=== PATIENT | male | born 1940 | race Caucasian/White ===

== ENCOUNTER 2016-08-01 09:49 | Inpatient (IN) | payer MEDICARE, OTHER ==
[~2016-08-01] VITALS: Ht 177.8 cm; Wt 100.0 kg
[~2016-08-01 09:49] MED LIST: APIX5TAB PO; ATEN-138 PO; ATEN50TA PO; BUPR150T18 PO; CEPH500C PO; CILO50TA PO; DILT60TA29 PO; FURO-109 PO; POLY17PO3 PO; Promethazine/Codeine Syp PO
[2016-08-01] MEDS ORDERED: IPRATROPIUM (NEB) 0.5 MG/2.5 ML AMP NEB STA (10:15)
[2016-08-01] MEDS ORDERED: ALBUTEROL 0.083% (NEB) 2.5 MG/3 ML AMP NEB STA (10:15)
--- NOTE | 2016-08-01 10:24 | RADRPT ---
PROCEDURE: XR Chest. CLINICAL INDICATION: Chest pain TECHNIQUE: Single frontal view of the chest was obtained COMPARISON: 02/06/2016 FINDINGS: The heart is enlarged. The thoracic aorta is calcified. There is a left lower lobe infiltrate and atelectasis and worsening left pleural effusion. There is no pneumothorax. RPTAT: AA IMPRESSION: Left lower lobe infiltrate and atelectasis and worsening moderate left pleural effusion. Mild cardiomegaly. Calcified aorta consistent with atherosclerotic disease. .David Hawk MD, Date Time Electronically viewed and signed by .David Hawk MD, on 08/01/2016 10:24 .S/
[2016-08-01 10:30] LABS: ADD SCAN DIFF NO
[2016-08-01] MEDS ORDERED: FUROSEMIDE 40 MG INJ IV ONE (10:30)
[2016-08-01 10:33] LABS: BASOPHIL # 0.1 10^3/ul (0.0-0.1); BASOPHILS % 0.6 % (0.0-2.0); EOSINOPHILS # 0.2 10^3/ul (0.0-0.5); EOSINOPHILS % 2.6 % (0.0-7.0); HEMOGLOBIN 13.5 g/dl (14.0-18.0); LYMPHOCYTES # 1.5 10^3/ul (0.8-2.9); LYMPHOCYTES % 19.8 % (15.0-51.0); MEAN CORPUSCULAR HEMOGLOBIN 33.4 pg (29.0-33.0); MEAN CORPUSCULAR HGB CONC 33.8 g/dl (32.0-37.0); MEAN PLATELET VOLUME 9.5 fl (7.4-10.4); MONOCYTE # 0.9 10^3/ul (0.3-0.9); MONOCYTES % 11.1 % (0.0-11.0); NEUTROPHIL # 5.1 10^3/ul (1.6-7.5); NEUTROPHILS % 65.6 % (39.0-77.0); PLATELET COUNT 253 10^3/UL (140-415); RED BLOOD COUNT 4.04 10^6/ul (4.70-6.10); RED CELL DISTRIBUTION WIDTH 13.7 % (11.5-14.5); WHITE BLOOD COUNT 7.7 10^3/ul (4.8-10.8)
[2016-08-01] MEDS ORDERED: VANCOMYCIN 1 GM (PMX) 250 ML IVPB STA (10:46)
[2016-08-01] MEDS ORDERED: CEFEPIME 1GM/50 ML (PMX) 50 ML IVPB STA (10:46)
[2016-08-01 10:50] LABS: INR 1.14; PROTIME 14.6 Sec (12.2-14.2); PT RATIO 1.1
[2016-08-01 10:51] LABS: ALANINE AMINOTRANSFERASE 24 IU/L (13-69); ALBUMIN 4.4 g/dl (3.3-4.9); ALBUMIN/GLOBULIN RATIO 1.15; ALKALINE PHOSPHATASE 118 IU/L (42-121); ANION GAP 14 (8-16); ASPARTATE AMINO TRANSFERASE 29 IU/L (15-46); BILIRUBIN,INDIRECT 0.4 mg/dl (0-1.1); BILIRUBIN,TOTAL 0.4 mg/dl (0.2-1.3); BLOOD UREA NITROGEN 15 mg/dl (7-20); CALCIUM 9.4 mg/dl (8.4-10.2); CARBON DIOXIDE 23 mmol/L (21-31); CHLORIDE 101 mmol/L (97-110); GLUCOSE 99 mg/dl (70-220); PARTIAL THROMBOPLASTIN TIME 31.5 Sec (25.0-35.0); POTASSIUM 4.6 mmol/L (3.5-5.1); SODIUM 133 mmol/L (135-144); TOTAL PROTEIN 8.2 g/dl (6.1-8.1)
[2016-08-01 11:02] LABS: B-TYPE NATRIURETIC PEPTIDE 7020 PG/ML (0-450)
[2016-08-01 11:04] LABS: TROPONIN-I < 0.012 ng/ml (0.00-0.12)
--- NOTE | 2016-08-01 11:29 | ERA ---
ER Documentation Chief Complaint Date/Time DATE: 08/01/16 TIME: 11:27 Chief Complaint sob, cp, swelling legs HPI Very pleasant 68-year-old male comes in with shortness of breath with chest pain. He said it started 3 days ago. Also no swelling of his legs. Patient does have history of COPD and CHF. No nausea no vomiting no chills. He is also complaining some mild wheezing. No palpitations. Chest pain is mild to moderate intensity, substernal, not pressure-like with no exacerbating or alleviating factors. Patient also has 3 pillow orthopnea along with shortness of breath on exertion at 10 feet. ROS All systems reviewed and are negative except as per history of present illness. Medications Home Meds Active Scripts [Promethazine/Codeine Syp] 5 ML SYRUP No Conflict Check, 10 ML PO Q6H Y for COUGH, #240 ML Prov:JERSON MCCORMACK MD 02/10/16 Diltiazem Hcl* (Cardizem*) 60 Mg Tablet, 60 MG PO TID, #180 TAB Prov:JERSON MCCORMACK MD 02/10/16 Atenolol (Tenormin) 25 Mg Tab, 25 MG PO HS, #60 TAB Prov:JERSON MCCORMACK MD 02/10/16 Reported Medications Furosemide* (Lasix*) 40 Mg Tablet, 40 MG PO DAILY, TAB 01/31/16 Bupropion Hcl* (Bupropion Hcl SR*) 150 Mg Tablet.er, 150 MG PO DAILY, TAB.SA 08/18/15 Cilostazol* (Cilostazol*) 50 Mg Tablet, 50 MG PO BID, TAB 08/18/15 Polyethylene Glycol* (Polyethylene Glycol*) 17 Gm Powd.pack, 8.5 GM PO DAILY, PACKET 08/31/14 Discontinued Reported Medications Atenolol* (Atenolol*) 50 Mg Tablet, 50 MG PO DAILY, #30 TAB HOLD IF SBP<110 OR HR<60 08/27/15 Discontinued Scripts Cephalexin* (Cephalexin*) 500 Mg Capsule, 500 MG PO TID, #21 CAP Prov:JERSON MCOCRMACK MD 02/10/16 Apixaban* (Eliquis*) 5 Mg Tablet, 5 MG PO BID, #60 TAB Prov:JERSON MCCORMACK MD 02/10/16 Allergies Allergies: Coded Allergies: No Known Allergy (Unverified , 02/06/16) PMhx/Soc History of Surgery: Yes (Lung CA; carotid endarterectomy) Anesthesia Reaction: No Hx 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 Disorder: Yes (CVA) Hx Respiratory Disorders: Yes (Lung CA; COPD; CHF) Hx Cardiac Disorders: Yes (AFIB; HTN) Hx Psychiatric Problems: No Hx Miscellaneous Medical Probl: No Hx Alcohol Use: Yes Hx Substance Use: No Hx Tobacco Use: Yes Smoking Status: Current every day smoker Physical Exam Vitals Vital Signs Date Time Temp Pulse Resp B/P Pulse Ox O2 Delivery O2 Flow Rate FiO2 08/01/16 10:33 97 21 96 Nasal Cannula 2.0 08/01/16 10:15 Nasal Cannula 2 08/01/16 10:08 Nasal Cannula 2.0 08/01/16 09:57 98.1 98 24 139/94 98 Physical Exam Const: [] Head: Atraumatic Eyes: Normal Conjunctiva ENT: Normal External Ears, Nose and Mouth. Neck: Full range of motion..~ No meningismus. Resp: Clear to auscultation bilaterally Cardio: Regular rate and rhythm, no murmurs Abd: Soft, non tender, non distended. Normal bowel sounds Skin: No petechiae or rashes Back: No midline or flank tenderness Ext: No cyanosis, or edema Neur: Awake and alert Psych: Normal Mood and Affect Result Diagram: 08/01/16 1020 08/01/16 1020 Results 24 hrs Laboratory Tests Test 08/01/16 10:20 White Blood Count 7.710^3/ul Red Blood Count 4.0410^6/ul Hemoglobin 13.5g/dl Hematocrit 40.0% Mean Corpuscular Volume 99.0fl Mean Corpuscular Hemoglobin 33.4pg Mean Corpuscular Hemoglobin Concent 33.8g/dl Red Cell Distribution Width 13.7% Platelet Count 30046^3/UL Mean Platelet Volume 9.5fl Neutrophils % 65.6% Lymphocytes % 19.8% Monocytes % 11.1% Eosinophils % 2.6% Basophils % 0.6% Nucleated Red Blood Cells % 0.0/100WBC Neutrophils # 5.110^3/ul Lymphocytes # 1.510^3/ul Monocytes # 0.910^3/ul Eosinophils # 0.210^3/ul Basophils # 0.110^3/ul Nucleated Red Blood Cells # 0.010^3/ul Prothrombin Time 14.6Sec Prothrombin Time Ratio 1.1 INR International Normalized Ratio 1.14 Activated Partial Thromboplast Time 31.5Sec Sodium Level 133mmol/L Potassium Level 4.6mmol/L Chloride Level 101mmol/L Carbon Dioxide Level 23mmol/L Anion Gap 14 Blood Urea Nitrogen 15mg/dl Creatinine 1.20mg/dl Glucose Level 99mg/dl Calcium Level 9.4mg/dl Total Bilirubin 0.4mg/dl Direct Bilirubin 0.00mg/dl Indirect Bilirubin 0.4mg/dl Aspartate Amino Transf (AST/SGOT) 29IU/L Alanine Aminotransferase (ALT/SGPT) 24IU/L Alkaline Phosphatase 118IU/L Troponin I < 0.012ng/ml B-Type Natriuretic Peptide 7020PG/ML Total Protein 8.2g/dl Albumin 4.4g/dl Globulin 3.80g/dl Albumin/Globulin Ratio 1.15 Current Medications Medications (Trade) Dose Ordered Sig/Yamileth Route PRN Reason Start Time Stop Time Status Last Admin Dose Admin Albuterol (Proventil 0.083% (Neb)) 5 mg ONCE STAT NEB 08/01/16 10:15 08/01/16 10:16 DC 08/01/16 10:27 Ipratropium [facility] (Atrovent 0.02% (Neb)) 0.5 mg ONCE STAT NEB 08/01/16 10:15 08/01/16 10:16 DC 08/01/16 10:27 Furosemide 80 mg 80 mg ONCE ONCE IV 08/01/16 10:30 08/01/16 10:31 DC 08/01/16 10:27 Cefepime HCl 50 ml @ 100 mls/hr ONCE STAT IVPB 08/01/16 10:46 08/01/16 11:15 DC 08/01/16 11:09 Vancomycin HCl (Vancocin) 250 ml @ 125 mls/hr ONCE STAT IVPB 08/01/16 10:46 08/01/16 12:45 08/01/16 11:18 Procedures/MDM EKG: Rate/Rhythm: [Normal Sinus Rhythm] QRS, ST, T-waves: [No changes consistent w/ acute ischemia] Impression: [No evidence of ischemia or arrhythmia] Chest X-ray 1V Interpreted by me: Soft Tissue: No acute abnormalities Bones: No acute abnormalities Mediastinum/Cardiac Silhouette/Lungs: Bilateral pleural effusions. Right lower lobe infiltrate. Increased interstitial fluid markings. Impression: CHF, bilateral pleural effusions, right lower lobe pneumonia Patient's heart failure symptoms is concerning for acute decompensation and will require inpatient workup and monitoring. Further w/u for ischemia, arrhythmia, PE or dissection will be deferred to the inpatient team. Accepting Care Team: Current data and ongoing care discussed. Time: 11:15 AM Primary Provider: Dr. Saleh Consulting: Per inpatient team Outstanding Data: none Critical Care: Time: 45 minutes Treatments/Evaluations: Close monitoring and treatment of unstable vital signs, cardiorespiratory, and neurologic status, while maintaining tight balance of fluid, respiratory, and cardiac interventions. Departure Diagnosis: Primary Impression: CHF (congestive heart failure) Qualified Code: I50.9 - Congestive heart failure, unspecified congestive heart failure chronicity, unspecified congestive heart failure type Additional Impressions: Pneumonia Qualified Code: J18.1 - Pneumonia of right lower lobe due to infectious organism Pleural effusion Condition: Serious ANA ROSA SWEENEY August 01, 2016 11:29
[2016-08-01] MEDS ORDERED: APIXABAN 5 MG TABLET PO ONE (14:00)
[2016-08-01 14:45] VITALS: PULSE 103
--- NOTE | 2016-08-01 14:57 | CONS ---
DATE OF ADMISSION: 08/01/2016 DATE OF CONSULTATION: 08/01/2016 TYPE OF CONSULTATION: Cardiology. REFERRING PHYSICIAN: Paul Saleh MD REASON FOR EVALUATION: Shortness of breath, atrial fibrillation. HISTORY OF PRESENT ILLNESS: Mr. Nielsen is a 76-year-old gentleman who was cardiomyopathy, ejection fraction 35% to 40%, history of coronary artery disease, history of heart failure, history of palpit ations, who comes to the hospital now for evaluation of cough, shortness of breath. The patient had prior episodes of shortness of breath. He also has history of atrial fibrillation and heart failure . The patient responded well to diuresis, which he tolerated well. The patient had a stress test i n August of 2015, at which time it showed normal ejection fraction and some hypokinesis and no reversi ble disease and it is likely the etiology of his decompensation and now with CHF was rapid rate resp onse in atrial fibrillation. The patient's rate is much better. He responded well to diuresis and feels much better overall. For now, conservative therapy is expected. We will continue to follow. 2D echo to follow. PAST MEDICAL HISTORY: Hypertension, dyslipidemia, history of coronary artery disease, history of ca rdiomyopathy, ejection fraction 35% to 40%. History of prior admissions with congestive heart failur e exacerbation, atrial fibrillation. ALLERGIES: NO KNOWN. SOCIAL HISTORY: The patient does not smoke, does not use any drugs. FAMILY HISTORY: Negative for sudden cardiac or premature coronary artery disease. MEDICATIONS: The patient is on: 1. Cefepime. 2. Vancomycin. 3. Lasix 20 mg p.o., which was given once. 4. Atenolol 50 mg p.o. once a day. 5. Digoxin 250 mg IV. 6. He is on Eliquis 5 mg p.o. b.i.d. 7. Potassium supplement. 8. Levothyroxine. 9. Metoprolol titrate as needed. REVIEW OF SYSTEMS: CONSTITUTIONAL: No fevers, no chills, shortness of breath as described. HEENT: No changes in vision. CARDIAC: Atrial fibrillation. Chest pain as described. RESPIRATORY: Breath acute on chronic anticoagulation. GASTROINTESTINAL: No nausea, vomiting, diarrhea, constipation. GENITOURINARY: No dysuria, hematuria, ____ . NEUROLOGIC: No focal neurologic deficits. HEMATOLOGIC: ____ . PSYCHIATRIC: No history of psychiatric disease. PHYSICAL EXAMINATION: VITAL SIGNS: Temperature is 98.7, heart rate is 99 in AFib, blood pressure 122/78. GENERAL: He is a well-nourished gentleman in no acute distress, alert and oriented x3, aware of his condition. HEAD: Normocephalic, atraumatic. Eyes anicteric. NECK: Supple. JVD 6-7 cm. There is no lymphadenopathy, no thyromegaly. HEART: Irregularly irregular with soft holosystolic murmur mid chest. ____ PMI is nondisplaced. _ ___ . LUNGS: Coarse at bases. ABDOMEN: Distended, bowel sounds are present. There is no hepatosplenomegaly. GENITOURINARY: Grossly intact. EXTREMITIES: Show no clubbing, cyanosis. Trace edema. He has some chronic changes in his lower ex tremities. ECG read by me shows atrial fibrillation at ____ , had some nonspecific ST-T changes. LABORATORY DATA: White blood cell count 7.7, hemoglobin 13.5, platelets 253. INR is 1.14. Sodium 133, potassium 4.6. His BUN is 15, creatinine 1.2. Troponin is negative at 0.012. ASSESSMENT AND PLAN: 1. Shortness of breath. Suspect likely multifactorial, suspect COPD exacerbation as well as positi ve component of CHF, the patient responded well to diuresis. Continue diuretic therapy. 2. Atrial fibrillation. The patient has chronic atrial fibrillation, rate is better controlled now. Continue anticoagulation with Eliquis. Continue to monitor closely. 3. Hypertension. Blood pressure well optimized now. Continue medical therapeutic care. 4. Congestive heart failure, systolic, acute on chronic. Continue diuresis as noted. 5. Acute renal failure. Creatinine is now at 1.2, which is somewhat decreased from his baseline at 1.532. For now continue to diurese the patient expectantly. 6. Chronic obstructive pulmonary disease. Continue chronic obstructive pulmonary disease therapy p er primary team. I would like to thank Dr. Saleh for referring this patient for my evaluation. Dictated By: EMILY SANTAMARIA MD ML/NTS Conf#: [id number] DID#: [id number]
[2016-08-01 15:00] VITALS: Ht 177.8 cm; Wt 100.0 kg
[2016-08-01 15:58] VITALS: BP 131/72; RESP 20
[2016-08-01 16:10] VITALS: PULSE 99
[2016-08-01] MEDS ORDERED: ALBUTEROL/IPRATROPIUM (NEB) 3 ML AMP HHN PRN (17:30)
[2016-08-01] MEDS: ALBUTEROL/IPRATROPIUM (NEB) 3 ML AMP HHN SCH ×2 (17:32→20:11)
--- NOTE | 2016-08-01 17:49 | QN ---
Documentation Comment [id number] KARLEY DEAN MD August 01, 2016 17:49
--- NOTE | 2016-08-01 18:17 | HP ---
DATE OF ADMISSION: 08/01/2016 HISTORY OF PRESENT ILLNESS: Sung Nielsen is a 76-year-old male who has a history of COPD, CKD, atherosclerotic heart disease, dyslipidemia. The patient has a history of lung cancer status post radiation per patient, history of hypoxic respiratory distress due to moderate left pleural effusion, left lower lobe pneumonia, history of thoracentesis, atrial fibrillation with rapid ventricular response, cardiomyopathy, CHF, ejection fraction 35% to 40%, hypertension, history of CAD, history of CVA, history of carotid endarterectomy. ALLERGY HISTORY: NEGATIVE. FAMILY HISTORY: Negative. MEDICATIONS: The patient is on: 1. Atenolol. 2. Bupropion. 3. Cilostazol. 3. Diltiazem. 4. Lasix. 5. MiraLax. . REVIEW OF SYSTEMS: HEENT: Unremarkable. RESPIRATORY: Cough, shortness of breath, dyspnea on exertion, orthopnea, PND. ABDOMEN: Unremarkable. EXTREMITIES: Unremarkable except for chronic edema. CENTRAL NERVOUS SYSTEM: Unremarkable. PHYSICAL EXAMINATION: GENERAL: The patient is awake, alert, anxious. VITAL SIGNS: Stable. HEAD: Atraumatic, normocephalic. Pupils are equal, reactive to light. NECK: Supple. No JVD. LUNGS: Rhonchi and wheezes noted. CARDIOVASCULAR: S1, S2 normal. ABDOMEN: Soft, nontender, obese. Bowel sounds present. No palpable mass or hepatosplenomegaly. EXTREMITIES: No cyanosis, clubbing. Edema positive. LABORATORY DATA: Shows hematocrit 40.0. Sodium 133, potassium 4.6. BNP 1720. The patient has atrial fibrillation with rapid ventricular response on the monitor. IMPRESSION: 1. Acute hypoxemic respiratory failure, chronic obstructive pulmonary disease exacerbation. 2. The patient is atrial fibrillation with rapid ventricular response. 3. Lung infiltrate, pleural effusions. 4. Cardiomegaly. 5. Atherosclerotic heart disease. 6. Dyslipidemia. 7. History of lung carcinoma and radiation. PLAN: To continue current treatment. The patient will have consultation from vascular, for hemodialysis. Orders were done. Dictated By: KARLEY DEAN MD BS/NTS Conf#: [id number] DID#: [id number] MTDD
[2016-08-01] MEDS ORDERED: PERMETHRIN 5% 60 GM CR TOP ONE (19:00)
[2016-08-01 19:54] VITALS: BP 103/69; RESP 18
[2016-08-01 20:17] VITALS: PULSE 110
[2016-08-01] MEDS: ATENOLOL 25 MG TAB PO SCH (21:25)
[2016-08-01] MEDS: CILOSTAZOL 100 MG TAB PO SCH (21:25)
[2016-08-01] MEDS: DILTIAZEM 60 MG TAB PO SCH (21:25)
[2016-08-01] MEDS: METHYLPREDNISOLONE 40 MG INJ IV SCH (21:26)
[2016-08-01] MEDS: CEFEPIME 1GM/50 ML (PMX) 50 ML IVPB SCH (21:26)
[2016-08-01] MEDS: FUROSEMIDE 40 MG INJ IV SCH (21:26)
[2016-08-01] MEDS: ENOXAPARIN 100 MG/ML SYG SC SCH (21:51)
[2016-08-01 23:40] VITALS: BP 111/67; RESP 20
[2016-08-02] VITALS (12 sets, daily range): BP systolic 81–123; BP diastolic 49–77; PULSE 100–126; RESP 16–20
[2016-08-02] MEDS: GUAIFENESIN/CODEINE 5ML CUP PO PRN ×3 (00:16→21:30)
[2016-08-02] MEDS: ALBUTEROL/IPRATROPIUM (NEB) 3 ML AMP HHN SCH ×6 (01:12→21:32)
[2016-08-02 04:08] LABS: ADD SCAN DIFF NO
[2016-08-02 04:35] LABS: ABNORMAL IP MESSAGE 1; BASOPHILS % 0.5 % (0.0-2.0); EOSINOPHILS % 0.2 % (0.0-7.0); HEMATOCRIT 36.1 % (42.0-52.0); HEMOGLOBIN 12.5 g/dl (14.0-18.0); LYMPHOCYTES # 0.5 10^3/ul (0.8-2.9); LYMPHOCYTES % 7.4 % (15.0-51.0); MEAN CORPUSCULAR HEMOGLOBIN 33.8 pg (29.0-33.0); MEAN CORPUSCULAR HGB CONC 34.6 g/dl (32.0-37.0); MEAN CORPUSCULAR VOLUME 97.6 fl (82.0-101.0); MEAN PLATELET VOLUME 9.6 fl (7.4-10.4); MONOCYTE # 0.2 10^3/ul (0.3-0.9); MONOCYTES % 2.4 % (0.0-11.0); NEUTROPHIL # 5.6 10^3/ul (1.6-7.5); PLATELET COUNT 231 10^3/UL (140-415); RED CELL DISTRIBUTION WIDTH 13.6 % (11.5-14.5); WHITE BLOOD COUNT 6.3 10^3/ul (4.8-10.8)
[2016-08-02 04:39] LABS: ALBUMIN 4.4 g/dl (3.3-4.9)
[2016-08-02 04:40] LABS: POTASSIUM 3.8 mmol/L (3.5-5.1)
[2016-08-02 04:42] LABS: ALBUMIN/GLOBULIN RATIO 1.76; BILIRUBIN,INDIRECT 0.5 mg/dl (0-1.1); BILIRUBIN,TOTAL 0.5 mg/dl (0.2-1.3); CREATININE 1.17 mg/dl (0.61-1.24); TOTAL PROTEIN 6.9 g/dl (6.1-8.1)
[2016-08-02] MEDS: PANTOPRAZOLE (EC) 40 MG TAB PO SCH (06:24)
[2016-08-02] MEDS: FUROSEMIDE 40 MG INJ IV SCH (09:10)
[2016-08-02] MEDS: CILOSTAZOL 100 MG TAB PO SCH ×2 (09:11→21:10)
[2016-08-02] MEDS: POLYETHYLENE GLYCOL 17 GM PACKET PO SCH (09:11)
[2016-08-02] MEDS: METHYLPREDNISOLONE 40 MG INJ IV SCH ×2 (09:11→21:12)
[2016-08-02] MEDS: CEFEPIME 1GM/50 ML (PMX) 50 ML IVPB SCH ×2 (09:11→21:09)
[2016-08-02] MEDS: BUPROPION (SR) 150 MG TAB PO SCH (09:11)
[2016-08-02] MEDS: ASPIRIN 325 MG TAB PO SCH (09:11)
[2016-08-02] MEDS: DILTIAZEM 60 MG TAB PO SCH ×3 (09:12→21:00)
[2016-08-02] MEDS: ENOXAPARIN 100 MG/ML SYG SC SCH ×2 (09:37→21:19)
--- NOTE | 2016-08-02 16:14 | CONS ---
Date/Time of Note Date/Time of Note DATE: 08/02/16 TIME: 16:08 Assessment/Plan Assessment/Plan Chief Complaint/Hosp Course IMP: 1.AF with RVR 2.CHF-systolic EF last 35-40 3.HTN 4.Possible scabies 5.COPD 6. H/O lung ca 7.PNA and effusion L sided Recc: -Tele -Continue atenolol as tolerated -Give digoxin load -Continue asa/lovenox -Continue abx's and f/u cx data Problems: Consultation Date/Type/Reason Admit Date/Time August 01, 2016 at 11:17 Initial Consult Date 08/01/2016 Type of Consultation: Cardiology Reason for Consultation AF Referring Provider: KARLEY DEAN MD Exam/Review of Systems Vital Signs Vitals Vital Signs Date Time Temp Pulse Resp B/P Pulse Ox O2 Delivery O2 Flow Rate FiO2 08/02/16 14:44 98 3.0 32 08/02/16 14:44 112 22 Nasal Cannula 08/02/16 11:46 97.8 123/77 Intake and Output 08/01/16 08/01/16 08/02/16 15:00 23:00 07:00 Intake Total 470 ml 350 ml Output Total 1600 ml 1000 ml Balance -1600 ml 470 ml -650 ml Exam Review of Systems: CONSTITUTIONAL: No fevers, chills. PULMONARY: mild sob CARDIOVASCULAR: No chest pain/palpitations GASTROINTESTINAL: No nausea/vomiting. GENITOURINARY: No hematuria/dysuria. MUSCULOSKELETAL: No myagias/arthalgias. PSYCHIATRIC: The patient denies depression. NEUROLOGIC: No weakness Constitutional: alert Psych: no complaints Head: normocephalic ENMT: mucosa pink and moist Neck: jvd (9 cm water), supple Respiratory: diminished breath sounds (at bases/B) Cardiovascular: regular rate and rhythm Gastrointestinal: non-tender, soft Musculoskeletal: muscle tone (normal) Extremities: edema (none) 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: other (No focal deficits) Results Result Diagram: 08/02/16 0324 08/02/16 0324 Results 24 hrs Laboratory Tests Test 08/01/16 21:49 08/02/16 03:24 08/02/16 09:00 Troponin I < 0.012 < 0.012 < 0.012 White Blood Count 6.3 Red Blood Count 3.70 L Hemoglobin 12.5 L Hematocrit 36.1 L Mean Corpuscular Volume 97.6 Mean Corpuscular Hemoglobin 33.8 H Mean Corpuscular Hemoglobin Concent 34.6 Red Cell Distribution Width 13.6 Platelet Count 231 Mean Platelet Volume 9.6 Neutrophils % 89.0 H Lymphocytes % 7.4 L Monocytes % 2.4 Eosinophils % 0.2 Basophils % 0.5 Nucleated Red Blood Cells % 0.0 Neutrophils # 5.6 Lymphocytes # 0.5 L Monocytes # 0.2 L Eosinophils # 0.0 Basophils # 0.0 Nucleated Red Blood Cells # 0.0 Sodium Level 136 Potassium Level 3.8 Chloride Level 104 Carbon Dioxide Level 24 Anion Gap 12 Blood Urea Nitrogen 20 Creatinine 1.17 Glucose Level 139 # Calcium Level 9.0 Total Bilirubin 0.5 Direct Bilirubin 0.00 Indirect Bilirubin 0.5 Aspartate Amino Transf (AST/SGOT) 19 Alanine Aminotransferase (ALT/SGPT) 25 Alkaline Phosphatase 99 Total Protein 6.9 # Albumin 4.4 Globulin 2.50 Albumin/Globulin Ratio 1.76 Medications Medications Current Medications Pantoprazole (Protonix Tab) 40 mg DAILY@06 PO Last administered on 08/02/16 06 :24; Admin Dose 40 MG; Start 08/02/16 at 06:00 Albuterol/ Ipratropium (Duoneb) 3 ml PRN PRN HHN SHORTNESS OF BREATH; Start at 17:30 Furosemide (Lasix) 40 mg DAILY IV ; Start 08/03/16 at 09:00 Atenolol (Tenormin) 25 mg HS PO Last administered on 08/01/16 21:25; Admin Dose 25 MG; Start 08/01/16 at 21:00 Bupropion HCl (Wellbutrin Sr) 150 mg DAILY PO Last administered on 08/02/16 09 :11; Admin Dose 150 MG; Start 08/02/16 at 09:00 Cilostazol (Pletal) 50 mg BID PO Last administered on 08/02/16 09:11; Admin Dose 50 MG; Start 08/01/16 at 21:00 Diltiazem HCl (Cardizem) 60 mg TID PO Last administered on 08/02/16 13:45; Admin Dose 60 MG; Start 08/01/16 at 21:00 Polyethylene Glycol 8.5 gm 8.5 gm DAILY PO Last administered on 08/02/16 09:11 ; Admin Dose 8.5 GM; Start 08/02/16 at 09:00 Cefepime HCl (Maxipime 1gm/50 ml (Pmx)) 50 ml @ 100 mls/hr Q12 IVPB Last administered on 08/02/16 09:11; Admin Dose 100 MLS/HR; Start 08/01/16 at 21:00 Methylprednisolone Sodium Succinate (Solu-Medrol) 20 mg Q12 IV Last administered on 08/02/16 09:11; Admin Dose 20 MG; Start 08/01/16 at 21:00 Aspirin (Aspirin) 325 mg DAILY PO Last administered on 08/02/16 09:11; Admin Dose 325 MG; Start 08/02/16 at 09:00 Enoxaparin Sodium (Lovenox) 100 mg Q12 SC Last administered on 08/02/16 09:37 ; Admin Dose 100 MG; Start 08/01/16 at 21:00 Guaifenesin/ Codeine Phosphate (Robitussin Ac Liquid Cup) 10 ml BID PRN PO COUGH Last administered on 08/02/16 00:16; Admin Dose 10 ML; Start 08/01/16 at 22:30 CECE LOPEZ August 02, 2016 16:14
[2016-08-02] MEDS ORDERED: DIGOXIN 500 MCG INJ IV ONE ×2 (16:30→22:30)
--- NOTE | 2016-08-02 20:16 | PN ---
Date/Time of Note Date/Time of Note DATE: 08/02/16 TIME: 20:15 Assessment/Plan VTE Prophylaxis VTE Prophylaxis Intervention: other Lines/Catheters IV [facility] Saline Lock Assessment/Plan Chief Complaint/Hosp Course IMPRESSION: 1. Acute hypoxemic respiratory failure, chronic obstructive pulmonary disease exacerbation. 2. The patient is atrial fibrillation with rapid ventricular response. 3. Lung infiltrate, pleural effusions. 4. Cardiomegaly. 5. Atherosclerotic heart disease. 6. Dyslipidemia. 7. History of lung carcinoma and radiation. plan hhn lasix Problems: Subjective 24 Hr Interval Summary Respiratory: shortness of breath (better) Cardiovascular: no complaints Exam/Review of Systems Vital Signs Vitals Vital Signs Date Time Temp Pulse Resp B/P Pulse Ox O2 Delivery O2 Flow Rate FiO2 08/02/16 20:10 111 08/02/16 19:48 98.0 16 82/49 96 08/02/16 17:02 3.0 32 08/02/16 17:02 Nasal Cannula Intake and Output 08/01/16 08/01/16 08/02/16 15:00 23:00 07:00 Intake Total 470 ml 350 ml Output Total 1600 ml 1000 ml Balance -1600 ml 470 ml -650 ml Exam Respiratory: clear to auscultation, congested cough, diminished breath sounds Gastrointestinal: soft Results Result Diagram: 08/02/16 0324 08/02/16 0324 Results 24 hrs Laboratory Tests Test 08/01/16 21:49 08/02/16 03:24 08/02/16 09:00 Troponin I < 0.012 < 0.012 < 0.012 White Blood Count 6.3 Red Blood Count 3.70 L Hemoglobin 12.5 L Hematocrit 36.1 L Mean Corpuscular Volume 97.6 Mean Corpuscular Hemoglobin 33.8 H Mean Corpuscular Hemoglobin Concent 34.6 Red Cell Distribution Width 13.6 Platelet Count 231 Mean Platelet Volume 9.6 Neutrophils % 89.0 H Lymphocytes % 7.4 L Monocytes % 2.4 Eosinophils % 0.2 Basophils % 0.5 Nucleated Red Blood Cells % 0.0 Neutrophils # 5.6 Lymphocytes # 0.5 L Monocytes # 0.2 L Eosinophils # 0.0 Basophils # 0.0 Nucleated Red Blood Cells # 0.0 Sodium Level 136 Potassium Level 3.8 Chloride Level 104 Carbon Dioxide Level 24 Anion Gap 12 Blood Urea Nitrogen 20 Creatinine 1.17 Glucose Level 139 # Calcium Level 9.0 Total Bilirubin 0.5 Direct Bilirubin 0.00 Indirect Bilirubin 0.5 Aspartate Amino Transf (AST/SGOT) 19 Alanine Aminotransferase (ALT/SGPT) 25 Alkaline Phosphatase 99 Total Protein 6.9 # Albumin 4.4 Globulin 2.50 Albumin/Globulin Ratio 1.76 Medications Medications Current Medications Pantoprazole (Protonix Tab) 40 mg DAILY@06 PO Last administered on 08/02/16 06 :24; Admin Dose 40 MG; Start 08/02/16 at 06:00 Albuterol/ Ipratropium (Duoneb) 3 ml PRN PRN HHN SHORTNESS OF BREATH; Start at 17:30 Furosemide (Lasix) 40 mg DAILY IV ; Start 08/03/16 at 09:00 Atenolol (Tenormin) 25 mg HS PO Last administered on 08/01/16 21:25; Admin Dose 25 MG; Start 08/01/16 at 21:00 Bupropion HCl (Wellbutrin Sr) 150 mg DAILY PO Last administered on 08/02/16 09 :11; Admin Dose 150 MG; Start 08/02/16 at 09:00 Cilostazol (Pletal) 50 mg BID PO Last administered on 08/02/16 09:11; Admin Dose 50 MG; Start 08/01/16 at 21:00 Diltiazem HCl (Cardizem) 60 mg TID PO Last administered on 08/02/16 13:45; Admin Dose 60 MG; Start 08/01/16 at 21:00 Polyethylene Glycol 8.5 gm 8.5 gm DAILY PO Last administered on 08/02/16 09:11 ; Admin Dose 8.5 GM; Start 08/02/16 at 09:00 Cefepime HCl (Maxipime 1gm/50 ml (Pmx)) 50 ml @ 100 mls/hr Q12 IVPB Last administered on 08/02/16 09:11; Admin Dose 100 MLS/HR; Start 08/01/16 at 21:00 Methylprednisolone Sodium Succinate (Solu-Medrol) 20 mg Q12 IV Last administered on 08/02/16 09:11; Admin Dose 20 MG; Start 08/01/16 at 21:00 Aspirin (Aspirin) 325 mg DAILY PO Last administered on 08/02/16 09:11; Admin Dose 325 MG; Start 08/02/16 at 09:00 Enoxaparin Sodium (Lovenox) 100 mg Q12 SC Last administered on 08/02/16 09:37 ; Admin Dose 100 MG; Start 08/01/16 at 21:00 Guaifenesin/ Codeine Phosphate (Robitussin Ac Liquid Cup) 10 ml BID PRN PO COUGH Last administered on 08/02/16 16:49; Admin Dose 10 ML; Start 08/01/16 at 22:30 Digoxin (Digoxin) 250 mcg ONCE ONCE IV ; Start 08/02/16 at 22:30; Stop at 22:31 KARLEY DEAN MD August 02, 2016 20:16
[2016-08-02] MEDS: ATENOLOL 25 MG TAB PO SCH (21:00)
[2016-08-03] VITALS (11 sets, daily range): BP systolic 79–100; BP diastolic 51–71; PULSE 116–150; RESP 18–20
[2016-08-03] MEDS: ALBUTEROL/IPRATROPIUM (NEB) 3 ML AMP HHN SCH ×6 (01:14→21:31)
[2016-08-03] MEDS: PANTOPRAZOLE (EC) 40 MG TAB PO SCH (06:30)
[2016-08-03 07:46] LABS: ADD SCAN DIFF NO
[2016-08-03 07:47] LABS: ABNORMAL IP MESSAGE 1; HEMATOCRIT 34.8 % (42.0-52.0); HEMOGLOBIN 11.9 g/dl (14.0-18.0); LYMPHOCYTES # 0.5 10^3/ul (0.8-2.9); LYMPHOCYTES % 3.8 % (15.0-51.0); MEAN CORPUSCULAR HEMOGLOBIN 33.6 pg (29.0-33.0); MEAN CORPUSCULAR HGB CONC 34.2 g/dl (32.0-37.0); MEAN CORPUSCULAR VOLUME 98.3 fl (82.0-101.0); MEAN PLATELET VOLUME 9.6 fl (7.4-10.4); MONOCYTE # 0.6 10^3/ul (0.3-0.9); MONOCYTES % 4.6 % (0.0-11.0); NEUTROPHIL # 11.7 10^3/ul (1.6-7.5); NEUTROPHILS % 91.1 % (39.0-77.0); PLATELET COUNT 237 10^3/UL (140-415); RED BLOOD COUNT 3.54 10^6/ul (4.70-6.10); RED CELL DISTRIBUTION WIDTH 13.6 % (11.5-14.5); WHITE BLOOD COUNT 12.8 10^3/ul (4.8-10.8)
[2016-08-03 08:16] LABS: ALBUMIN 4.5 g/dl (3.3-4.9); ALBUMIN/GLOBULIN RATIO 1.8; BILIRUBIN,INDIRECT 0.3 mg/dl (0-1.1); BILIRUBIN,TOTAL 0.3 mg/dl (0.2-1.3); CREATININE 1.59 mg/dl (0.61-1.24); POTASSIUM 3.8 mmol/L (3.5-5.1)
[2016-08-03] MEDS: DILTIAZEM 60 MG TAB PO SCH ×2 (08:35→12:36)
[2016-08-03] MEDS: POLYETHYLENE GLYCOL 17 GM PACKET PO SCH (08:43)
[2016-08-03] MEDS: BUPROPION (SR) 150 MG TAB PO SCH (08:43)
[2016-08-03] MEDS: ASPIRIN 325 MG TAB PO SCH (08:43)
[2016-08-03] MEDS: CILOSTAZOL 100 MG TAB PO SCH ×2 (08:43→20:43)
[2016-08-03] MEDS: METHYLPREDNISOLONE 40 MG INJ IV SCH ×2 (08:44→20:43)
[2016-08-03] MEDS: CEFEPIME 1GM/50 ML (PMX) 50 ML IVPB SCH ×2 (08:44→20:43)
[2016-08-03] MEDS: ENOXAPARIN 100 MG/ML SYG SC SCH ×2 (08:54→20:45)
[2016-08-03] MEDS ORDERED: FUROSEMIDE 40 MG INJ IV SCH (09:00)
--- NOTE | 2016-08-03 12:57 | CONS ---
Date/Time of Note Date/Time of Note DATE: 08/03/16 TIME: 12:56 Consultation Date/Type/Reason Admit Date/Time August 01, 2016 at 11:17 Date of Consultation: Aug 03, 2016 Type of Consultation: pulmonary Reason for Consultation dictated [id number] Respiratory: shortness of breath (better) Cardiovascular: no complaints Psychological: no complaints Past Surgical History Past Surgical Hx: coronary bypass surgery Social History Smoking Status: Current every day smoker Exam/Review of Systems Vital Signs Vitals Vital Signs Date Time Temp Pulse Resp B/P Pulse Ox O2 Delivery O2 Flow Rate FiO2 08/03/16 11:10 98.3 106 18 99/60 97 08/03/16 08:20 3.0 08/03/16 07:22 Nasal Cannula 08/02/16 17:02 32 Intake and Output 08/02/16 08/02/16 08/03/16 15:00 23:00 07:00 Intake Total 1050 ml 350 ml Output Total 750 ml Balance 300 ml 350 ml Results Result Diagram: 08/03/16 0646 08/03/16 0645 Results 24 hrs Laboratory Tests Test 08/03/16 06:45 08/03/16 06:46 Sodium Level 133 L Potassium Level 3.8 Chloride Level 99 Carbon Dioxide Level 25 Anion Gap 13 Blood Urea Nitrogen 32 #H Creatinine 1.59 H Glucose Level 150 Calcium Level 9.0 Total Bilirubin 0.3 Direct Bilirubin 0.00 Indirect Bilirubin 0.3 Aspartate Amino Transf (AST/SGOT) 21 Alanine Aminotransferase (ALT/SGPT) 15 Alkaline Phosphatase 88 Total Protein 7.0 Albumin 4.5 Globulin 2.50 Albumin/Globulin Ratio 1.80 White Blood Count 12.8 #H Red Blood Count 3.54 L Hemoglobin 11.9 L Hematocrit 34.8 L Mean Corpuscular Volume 98.3 Mean Corpuscular Hemoglobin 33.6 H Mean Corpuscular Hemoglobin Concent 34.2 Red Cell Distribution Width 13.6 Platelet Count 237 Mean Platelet Volume 9.6 Neutrophils % 91.1 H Lymphocytes % 3.8 L Monocytes % 4.6 Eosinophils % 0.0 Basophils % 0.0 Nucleated Red Blood Cells % 0.0 Neutrophils # 11.7 H Lymphocytes # 0.5 L Monocytes # 0.6 Eosinophils # 0.0 Basophils # 0.0 Nucleated Red Blood Cells # 0.0 Medications Medications Current Medications Pantoprazole (Protonix Tab) 40 mg DAILY@06 PO Last administered on 08/03/16 06: 30; Admin Dose 40 MG; Start 08/02/16 at 06:00 Albuterol/ Ipratropium (Duoneb) 3 ml PRN PRN HHN SHORTNESS OF BREATH; Start at 17:30 Furosemide (Lasix) 40 mg DAILY IV ; Start 08/03/16 at 09:00 Atenolol (Tenormin) 25 mg HS PO Last administered on 08/01/16 21:25; Admin Dose 25 MG; Start 08/01/16 at 21:00 Bupropion HCl (Wellbutrin Sr) 150 mg DAILY PO Last administered on 08/03/16 08: 43; Admin Dose 150 MG; Start 08/02/16 at 09:00 Cilostazol (Pletal) 50 mg BID PO Last administered on 08/03/16 08:43; Admin Dose 50 MG; Start 08/01/16 at 21:00 Diltiazem HCl (Cardizem) 60 mg TID PO Last administered on 08/02/16 13:45; Admin Dose 60 MG; Start 08/01/16 at 21:00 Polyethylene Glycol 8.5 gm 8.5 gm DAILY PO Last administered on 08/03/16 08:43 ; Admin Dose 8.5 GM; Start 08/02/16 at 09:00 Cefepime HCl (Maxipime 1gm/50 ml (Pmx)) 50 ml @ 100 mls/hr Q12 IVPB Last administered on 08/03/16 08:44; Admin Dose 100 MLS/HR; Start 08/01/16 at 21:00 Methylprednisolone Sodium Succinate (Solu-Medrol) 20 mg Q12 IV Last administered on 08/03/16 08:44; Admin Dose 20 MG; Start 08/01/16 at 21:00 Aspirin (Aspirin) 325 mg DAILY PO Last administered on 08/03/16 08:43; Admin Dose 325 MG; Start 08/02/16 at 09:00 Enoxaparin Sodium (Lovenox) 100 mg Q12 SC Last administered on 08/03/16 08:54; Admin Dose 100 MG; Start 08/01/16 at 21:00 Guaifenesin/ Codeine Phosphate (Robitussin Ac Liquid Cup) 10 ml BID PRN PO COUGH Last administered on 08/02/16t 21:30; Admin Dose 10 ML; Start 08/01/16 at 22:30 ALAN DICKERSON Aug 03, 2016 12:57
--- NOTE | 2016-08-03 13:19 | CONS ---
DATE OF ADMISSION: 08/01/2016 DATE OF CONSULTATION: 08/03/2016 TYPE OF CONSULTATION: Pulmonary REFERRING PHYSICIAN: Paul Saleh MD REASON FOR REFERRAL: Evaluation of hypoxemia. HISTORY OF PRESENT ILLNESS: Mr. Nielsen is a very pleasant 76-year-old white male who came into the emergency room on 08/01/2016 with complaints of chronic shortness of breath going on for the last se veral months, which is typically brought on by walking and exertion. The patient also complains of dry cough without any sputum production, any hemoptysis. The patient also denies any fever, any epi sodes of nausea, vomiting. According to the patient, he does have chronic dyspnea on exertion and j ust walking a short distance would make him completely out of breath. The patient denies any recent weight change. PAST MEDICAL HISTORY: 1. Left lower lobe lung cancer a couple of years ago, treated with radiation and chemotherapy. No surgery was done. 2. Hypertension. 3. Mild cardiomyopathy with ejection fraction of around 35% to 40%. 4. History of cerebrovascular accident. 5. History of left carotid endarterectomy. MEDICATIONS: At home are: 1. Atenolol. 2. BuSpar. 3. Cardizem. 4. Lasix. In hospital, the patient is gettin. Furosemide (Lasix) 40 mg IV daily. 2. Digoxin 0.125 mg daily. 3. Solu-Medrol 20 mg q.12h. 4. Lovenox 100 mg subcutaneously q.12h. 5. Pletal 50 mg b.i.d. 6. Atenolol 25 mg at bedtime. 7. Aspirin 325 mg daily. 8. DuoNeb q.6h. 9. Cefepime 1 gram IV q.12h. ALLERGIES: NONE. SOCIAL HISTORY: The patient still smokes, has a history of [id number] smoking history. No histo ry of alcohol or drug abuse. FAMILY HISTORY: He is single. He does not have any children. 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 REVIEW OF SYSTEMS: Denies any headache, seizures, visual changes, sinus symptoms, postnasal drip, d ysphagia, odynophagia, sore throat, chest pain, angina, wheezing. Complains of chronic cough withou t any sputum production. Denies any hemoptysis. Denies any weight loss, any abdominal pain, nausea , vomiting, melena, hematochezia, edema, orthopnea, PND. Does complain of dyspnea on minimal to mod erate exertion. PHYSICAL EXAMINATION: GENERAL: Elderly male, awake, alert, currently in no distress. VITAL SIGNS: Temperature is 98.3 degrees Fahrenheit, heart rate is 106, blood pressure is 99/60, re spiratory rate is 18 per minute, O2 saturation is 94% on 2 liters nasal cannula. HEENT: Supple neck, no JVD, no lymphadenopathy, midline trachea, no thyromegaly. Pharynx clear. N o neck bruits. The patient has fair dentition. He has bilateral intraocular lens implants. CHEST: Minimally decreased breath sounds left lower lobe, otherwise clear. HEART: S1, S2 audible. No murmurs, regular rhythm. ABDOMEN: Soft, nontender. No organomegaly. Bowel sounds audible. EXTREMITIES: No peripheral edema, no clubbing. Pulses 1+ bilaterally. NEUROLOGIC: Cranial nerves are normal. There is no motor or sensory deficit. IMAGING: Chest x-ray was reviewed from 08/01/2016, which is showing volume loss in the left lower l obe with fibrotic changes. LABORATORY DATA: From today, white count is 12.8, hemoglobin 11.9, platelet count of 437. Sodium 1 50, potassium 3.8, chloride 99, bicarbonate 25, glucose 150, BUN 52, creatinine 1.59, increased from 1.17 yesterday. ASSESSMENT AND PLAN: 1. The patient admitted for chronic hypoxemia, likely from underlying chronic obstructive pulmonary disease as well as volume loss involving the left lower lobe due to radiation and chemotherapy from lung cancer. 2. Currently, there is no evidence of any mycobacterial disease or any pleural effusion. 3. History of hypertension. 4. Increased creatinine, likely a diuretic response. RECOMMENDATIONS: We will obtain ambulatory pulse oximetry on room air. The patient may qualify for home O2. Meanwhile, I would recommend holding off further Lasix. Currently, there is no indicatio n to perform a thoracentesis procedure and also no indication to keep the patient in isolation. Dictated By: ALAN MG/NTS Conf#: [id number] DID#: [id number]
[2016-08-03] MEDS ORDERED: NA PHOSPHATE/BIPHOS 133 ML ENEMA PR PRN (17:00)
--- NOTE | 2016-08-03 19:34 | PN ---
Date/Time of Note Date/Time of Note DATE: 08/03/16 TIME: 19:33 Assessment/Plan VTE Prophylaxis VTE Prophylaxis Intervention: other Lines/Catheters IV [facility] Type [facility]from [facility] Saline [facility] Assessment/Plan Chief Complaint/Hosp Course IMPRESSION: 1. Acute hypoxemic respiratory failure, chronic obstructive pulmonary disease exacerbation. 2. The patient is atrial fibrillation with rapid ventricular response. 3. Lung infiltrate, pleural effusions. 4. Cardiomegaly. 5. Atherosclerotic heart disease. 6. Dyslipidemia. 7. History of lung carcinoma and radiation. plan hhn lasix Problems: Subjective 24 Hr Interval Summary Subjective hx not possible: other (sob better) Exam/Review of Systems Vital Signs Vitals Vital Signs Date Time Temp Pulse Resp B/P Pulse Ox O2 Delivery O2 Flow Rate FiO2 08/03/16 19:20 98.1 140 18 100/71 96 08/03/16 13:22 Nasal Cannula 3.0 08/02/16 17:02 32 Intake and Output 08/02/16 08/02/16 08/03/16 15:00 23:00 07:00 Intake Total 1050 ml 350 ml Output Total 750 ml Balance 300 ml 350 ml Exam Neck: supple Respiratory: diminished breath sounds Cardiovascular: regular rate and rhythm Gastrointestinal: soft Extremities: normal pulses Results Result Diagram: 08/03/16 0646 08/03/16 0645 Results 24 hrs Laboratory Tests Test 08/03/16 06:45 08/03/16 06:46 Sodium Level 133 L Potassium Level 3.8 Chloride Level 99 Carbon Dioxide Level 25 Anion Gap 13 Blood Urea Nitrogen 32 #H Creatinine 1.59 H Glucose Level 150 Calcium Level 9.0 Total Bilirubin 0.3 Direct Bilirubin 0.00 Indirect Bilirubin 0.3 Aspartate Amino Transf (AST/SGOT) 21 Alanine Aminotransferase (ALT/SGPT) 15 Alkaline Phosphatase 88 Total Protein 7.0 Albumin 4.5 Globulin 2.50 Albumin/Globulin Ratio 1.80 White Blood Count 12.8 #H Red Blood Count 3.54 L Hemoglobin 11.9 L Hematocrit 34.8 L Mean Corpuscular Volume 98.3 Mean Corpuscular Hemoglobin 33.6 H Mean Corpuscular Hemoglobin Concent 34.2 Red Cell Distribution Width 13.6 Platelet Count 237 Mean Platelet Volume 9.6 Neutrophils % 91.1 H Lymphocytes % 3.8 L Monocytes % 4.6 Eosinophils % 0.0 Basophils % 0.0 Nucleated Red Blood Cells % 0.0 Neutrophils # 11.7 H Lymphocytes # 0.5 L Monocytes # 0.6 Eosinophils # 0.0 Basophils # 0.0 Nucleated Red Blood Cells # 0.0 Medications Medications Current Medications Pantoprazole (Protonix Tab) 40 mg DAILY@06 PO Last administered on 08/03/16 06: 30; Admin Dose 40 MG; Start 08/02/16 at 06:00 Albuterol/ Ipratropium (Duoneb) 3 ml PRN PRN HHN SHORTNESS OF BREATH; Start at 17:30 Atenolol (Tenormin) 25 mg HS PO Last administered on 08/01/16 21:25; Admin Dose 25 MG; Start 08/01/16 at 21:00 Bupropion HCl (Wellbutrin Sr) 150 mg DAILY PO Last administered on 08/03/16 08: 43; Admin Dose 150 MG; Start 08/02/16 at 09:00 Cilostazol (Pletal) 50 mg BID PO Last administered on 08/03/16 08:43; Admin Dose 50 MG; Start 08/01/16 at 21:00 Diltiazem HCl (Cardizem) 60 mg TID PO Last administered on 08/02/16 13:45; Admin Dose 60 MG; Start 08/01/16 at 21:00 Polyethylene Glycol 8.5 gm 8.5 gm DAILY PO Last administered on 08/03/16 08:43 ; Admin Dose 8.5 GM; Start 08/02/16 at 09:00 Cefepime HCl (Maxipime 1gm/50 ml (Pmx)) 50 ml @ 100 mls/hr Q12 IVPB Last administered on 08/03/16 08:44; Admin Dose 100 MLS/HR; Start 08/01/16 at 21:00 Methylprednisolone Sodium Succinate (Solu-Medrol) 20 mg Q12 IV Last administered on 08/03/16 08:44; Admin Dose 20 MG; Start 08/01/16 at 21:00 Aspirin (Aspirin) 325 mg DAILY PO Last administered on 08/03/16 08:43; Admin Dose 325 MG; Start 08/02/16 at 09:00 Enoxaparin Sodium (Lovenox) 100 mg Q12 SC Last administered on 08/03/16 08:54; Admin Dose 100 MG; Start 08/01/16 at 21:00 Guaifenesin/ Codeine Phosphate (Robitussin Ac Liquid Cup) 10 ml BID PRN PO COUGH Last administered on 08/02/16t 21:30; Admin Dose 10 ML; Start 08/01/16 at 22:30 Bisacodyl (Dulcolax) 10 mg BID PO ; Start 08/03/16 at 21:00 Sodium Biphosphate/ Sodium Phosphate (Fleet Enema) 133 ml DAILY PRN [place] CONSTIPATION; Start 08/03/16 at 17:00 KARLEY DEAN MD Aug 03, 2016 19:34
--- NOTE | 2016-08-03 19:48 | CONS ---
Date/Time of Note Date/Time of Note DATE: 08/03/16 TIME: 19:44 Assessment/Plan Assessment/Plan Chief Complaint/Hosp Course IMP: 1.AF with RVR 2.CHF-systolic EF last 35-40 3.HTN-HOTN now and not tolerating medications for rate control/? overdiuresis 4.Possible scabies 5.COPD 6. H/O lung ca 7.PNA and effusion L sided 8.ARF Recc: -Tele -Continue atenolol as tolerated -Give additional digoxin load -Continue asa/lovenox -Continue abx's and f/u cx data -Will give IVF bolus given HOtn and ARF Problems: Consultation Date/Type/Reason Admit Date/Time Aug 03, 2016 at 16:58 Initial Consult Date 08/01/2016 Type of Consultation: Cardiology Reason for Consultation AF/Cardiomyopathy Referring Provider: KARLEY DEAN MD Exam/Review of Systems Vital Signs Vitals Vital Signs Date Time Temp Pulse Resp B/P Pulse Ox O2 Delivery O2 Flow Rate FiO2 08/03/16 19:31 Nasal Cannula 2.0 08/03/16 19:20 98.1 140 18 100/71 96 08/02/16 17:02 32 Intake and Output 08/02/16 08/02/16 08/03/16 15:00 23:00 07:00 Intake Total 1050 ml 350 ml Output Total 750 ml Balance 300 ml 350 ml Exam Review of Systems: CONSTITUTIONAL: No fevers, chills. PULMONARY: No sob CARDIOVASCULAR: Positive palpitations GASTROINTESTINAL: No nausea/vomiting. GENITOURINARY: No hematuria/dysuria. MUSCULOSKELETAL: No myagias/arthalgias. PSYCHIATRIC: The patient denies depression. NEUROLOGIC: No weakness Constitutional: alert Psych: no complaints Head: normocephalic ENMT: mucosa pink and moist Neck: jvd, supple Respiratory: diminished breath sounds (at bases/B) Cardiovascular: irregular rhythm Gastrointestinal: non-tender, soft Musculoskeletal: muscle tone Extremities: edema (none) Results Result Diagram: 08/03/16 0646 08/03/16 0645 Results 24 hrs Laboratory Tests Test 08/03/16 06:45 08/03/16 06:46 Sodium Level 133 L Potassium Level 3.8 Chloride Level 99 Carbon Dioxide Level 25 Anion Gap 13 Blood Urea Nitrogen 32 #H Creatinine 1.59 H Glucose Level 150 Calcium Level 9.0 Total Bilirubin 0.3 Direct Bilirubin 0.00 Indirect Bilirubin 0.3 Aspartate Amino Transf (AST/SGOT) 21 Alanine Aminotransferase (ALT/SGPT) 15 Alkaline Phosphatase 88 Total Protein 7.0 Albumin 4.5 Globulin 2.50 Albumin/Globulin Ratio 1.80 White Blood Count 12.8 #H Red Blood Count 3.54 L Hemoglobin 11.9 L Hematocrit 34.8 L Mean Corpuscular Volume 98.3 Mean Corpuscular Hemoglobin 33.6 H Mean Corpuscular Hemoglobin Concent 34.2 Red Cell Distribution Width 13.6 Platelet Count 237 Mean Platelet Volume 9.6 Neutrophils % 91.1 H Lymphocytes % 3.8 L Monocytes % 4.6 Eosinophils % 0.0 Basophils % 0.0 Nucleated Red Blood Cells % 0.0 Neutrophils # 11.7 H Lymphocytes # 0.5 L Monocytes # 0.6 Eosinophils # 0.0 Basophils # 0.0 Nucleated Red Blood Cells # 0.0 Medications Medications Current Medications Pantoprazole (Protonix Tab) 40 mg DAILY@06 PO Last administered on 08/03/16 06: 30; Admin Dose 40 MG; Start 08/02/16 at 06:00 Albuterol/ Ipratropium (Duoneb) 3 ml PRN PRN HHN SHORTNESS OF BREATH; Start at 17:30 Atenolol (Tenormin) 25 mg HS PO Last administered on 08/01/16 21:25; Admin Dose 25 MG; Start 08/01/16 at 21:00 Bupropion HCl (Wellbutrin Sr) 150 mg DAILY PO Last administered on 08/03/16 08: 43; Admin Dose 150 MG; Start 08/02/16 at 09:00 Cilostazol (Pletal) 50 mg BID PO Last administered on 08/03/16 08:43; Admin Dose 50 MG; Start 08/01/16 at 21:00 Diltiazem HCl (Cardizem) 60 mg TID PO Last administered on 08/02/16 13:45; Admin Dose 60 MG; Start 08/01/16 at 21:00 Polyethylene Glycol 8.5 gm 8.5 gm DAILY PO Last administered on 08/03/16 08:43 ; Admin Dose 8.5 GM; Start 08/02/16 at 09:00 Cefepime HCl (Maxipime 1gm/50 ml (Pmx)) 50 ml @ 100 mls/hr Q12 IVPB Last administered on 08/03/16 08:44; Admin Dose 100 MLS/HR; Start 08/01/16 at 21:00 Methylprednisolone Sodium Succinate (Solu-Medrol) 20 mg Q12 IV Last administered on 08/03/16 08:44; Admin Dose 20 MG; Start 08/01/16 at 21:00 Aspirin (Aspirin) 325 mg DAILY PO Last administered on 08/03/16 08:43; Admin Dose 325 MG; Start 08/02/16 at 09:00 Enoxaparin Sodium (Lovenox) 100 mg Q12 SC Last administered on 08/03/16 08:54; Admin Dose 100 MG; Start 08/01/16 at 21:00 Guaifenesin/ Codeine Phosphate (Robitussin Ac Liquid Cup) 10 ml BID PRN PO COUGH Last administered on 08/02/16 21:30; Admin Dose 10 ML; Start 08/01/16 at 22:30 Bisacodyl (Dulcolax) 10 mg BID PO ; Start 08/03/16 at 21:00 Sodium Biphosphate/ Sodium Phosphate (Fleet Enema) 133 ml DAILY PRN [place] CONSTIPATION; Start 08/03/16 at 17:00 CECE LOPEZ Aug 03, 2016 19:48
[2016-08-03] MEDS ORDERED: DIGOXIN 500 MCG INJ IV ONE (20:00)
[2016-08-03] MEDS ORDERED: SOD CHLORIDE 0.9% 500 ML IV ONE (20:00)
[2016-08-03] MEDS ORDERED: METOPROLOL 5 MG INJ IV PRN (20:00)
[2016-08-03] MEDS: ATENOLOL 25 MG TAB PO SCH (20:41)
[2016-08-03] MEDS: BISACODYL (EC) 5 MG TAB PO SCH (20:42)
[2016-08-03] MEDS: DILTIAZEM 30 MG TAB PO SCH (22:09)
[2016-08-04] VITALS (11 sets, daily range): BP systolic 115–168; BP diastolic 59–73; PULSE 89–126; RESP 16–19
[2016-08-04] MEDS: ALBUTEROL/IPRATROPIUM (NEB) 3 ML AMP HHN SCH ×6 (01:37→20:36)
[2016-08-04] MEDS: PANTOPRAZOLE (EC) 40 MG TAB PO SCH (06:37)
[2016-08-04] MEDS: DILTIAZEM 30 MG TAB PO SCH ×2 (06:37→14:55)
[2016-08-04 08:12] LABS: CALCIUM 8.8 mg/dl (8.4-10.2); CREATININE 1.49 mg/dl (0.61-1.24); POTASSIUM 4.8 mmol/L (3.5-5.1)
[2016-08-04] MEDS: POLYETHYLENE GLYCOL 17 GM PACKET PO SCH (09:06)
[2016-08-04] MEDS: CEFEPIME 1GM/50 ML (PMX) 50 ML IVPB SCH ×2 (09:06→20:51)
[2016-08-04] MEDS: ASPIRIN 325 MG TAB PO SCH (09:06)
[2016-08-04] MEDS: BUPROPION (SR) 150 MG TAB PO SCH (09:06)
[2016-08-04] MEDS: BISACODYL (EC) 5 MG TAB PO SCH ×2 (09:07→20:51)
[2016-08-04] MEDS: CILOSTAZOL 100 MG TAB PO SCH ×2 (09:07→20:51)
[2016-08-04] MEDS: METHYLPREDNISOLONE 40 MG INJ IV SCH ×3 (09:07→18:41)
[2016-08-04] MEDS: ENOXAPARIN 100 MG/ML SYG SC SCH ×2 (09:19→21:00)
[2016-08-04] MEDS: GUAIFENESIN/CODEINE 5ML CUP PO PRN ×2 (09:32→20:51)
--- NOTE | 2016-08-04 10:41 | CONS ---
Date/Time of Note Date/Time of Note DATE: 08/04/16 TIME: 10:39 Assessment/Plan Assessment/Plan Additional Assessment/Plan Assessment and recommendations; next 1. Patient admitted for COPD exacerbation and acute bronchitis. 2. History of left lower lobe lung cancer, status post radiation chemotherapy with volume loss. 3. History of hypertension, and cardiomyopathy. Discontinue cefepime. Start Levaquin 5 mg IV daily. Increase Solu-Medrol to 40 mg every 6 hours. Consultation Date/Type/Reason Admit Date/Time Aug 03, 2016 at 16:58 Initial Consult Date 08/03/16 Type of Consultation: Pulmonary Referring Provider: KARLEY DEAN MD 24 HR Interval Summary Free Text/Dictation Patient still complaining of chest congestion coughing wheezing and production of yellow sputum. Denies any chest pain, fever chills. General exam; elderly male, awake alert currently in no distress. Exam/Review of Systems Vital Signs Vitals Vital Signs Date Time Temp Pulse Resp B/P Pulse Ox O2 Delivery O2 Flow Rate FiO2 08/04/16 08:16 117 08/04/16 07:46 97.4 17 168/73 92 08/04/16 05:28 Nasal Cannula 3.0 08/02/16 17:02 32 Intake and Output 08/03/16 08/03/16 08/04/16 15:00 23:00 07:00 Intake Total 950 ml 350 ml Balance 950 ml 350 ml Exam HEENT exam; supple neck, no JVD. No lymphadenopathy. Midline trachea. No thyromegaly. There is a left carotid scar. Patient has bilateral intraocular lens implants. Has multiple carious teeth. Chest examined; diminished breath sounds bilaterally with mild bilateral wheezing. S1-S2 audible, no murmurs. Regular rhythm. Abdomen examination soft, nontender. No organomegaly. Bowel sounds audible. Extremity exam; no peripheral edema. Pulses 1+ bilaterally. No clubbing. SKIRT TRIMMER examination; no focal deficit. Results Result Diagram: 08/03/16 0646 08/04/16 0705 Results 24 hrs Laboratory Tests Test 08/04/16 07:05 Sodium Level 133 L Potassium Level 4.8 Chloride Level 97 Carbon Dioxide Level 25 Anion Gap 16 Blood Urea Nitrogen 35 H Creatinine 1.49 H Glucose Level 136 Calcium Level 8.8 Medications Medications Current Medications Pantoprazole (Protonix Tab) 40 mg DAILY@06 PO Last administered on 08/04/16 06: 37; Admin Dose 40 MG; Start 08/02/16 at 06:00 Albuterol/ Ipratropium (Duoneb) 3 ml PRN PRN HHN SHORTNESS OF BREATH; Start at 17:30 Atenolol (Tenormin) 25 mg HS PO Last administered on 08/03/16 20:41; Admin Dose 25 MG; Start 08/01/16 at 21:00 Bupropion HCl (Wellbutrin Sr) 150 mg DAILY PO Last administered on 08/04/16 09: 06; Admin Dose 150 MG; Start 08/02/16 at 09:00 Cilostazol (Pletal) 50 mg BID PO Last administered on 08/04/16 09:07; Admin Dose 50 MG; Start 08/01/16 at 21:00 Polyethylene Glycol 8.5 gm 8.5 gm DAILY PO Last administered on 08/04/16 09:06 ; Admin Dose 8.5 GM; Start 08/02/16 at 09:00 Cefepime HCl (Maxipime 1gm/50 ml (Pmx)) 50 ml @ 100 mls/hr Q12 IVPB Last administered on 08/04/16 09:06; Admin Dose 100 MLS/HR; Start 08/01/16 at 21:00 Methylprednisolone Sodium Succinate (Solu-Medrol) 20 mg Q12 IV Last administered on 08/04/16 09:07; Admin Dose 20 MG; Start 08/01/16 at 21:00 Aspirin (Aspirin) 325 mg DAILY PO Last administered on 08/04/16 09:06; Admin Dose 325 MG; Start 08/02/16 at 09:00 Enoxaparin Sodium (Lovenox) 100 mg Q12 SC Last administered on 08/04/16 09:19; Admin Dose 100 MG; Start 08/01/16 at 21:00 Guaifenesin/ Codeine Phosphate (Robitussin Ac Liquid Cup) 10 ml BID PRN PO COUGH Last administered on 08/04/16 09:32; Admin Dose 10 ML; Start 08/01/16 at 22:30 Bisacodyl (Dulcolax) 10 mg BID PO Last administered on 08/04/16 09:07; Admin Dose 10 MG; Start 6/1/17 at 21:00 Sodium Biphosphate/ Sodium Phosphate (Fleet Enema) 133 ml DAILY PRN [place] CONSTIPATION; Start 08/03/16 at 17:00 Diltiazem HCl (Cardizem) 30 mg Q8 PO Last administered on 08/04/16t 06:37; Admin Dose 30 MG; Start 08/03/16 at 22:00 Metoprolol Tartrate (Lopressor) 5 mg Q4H PRN IV HR>110 Hold SBP<100; Start 08/03 at 20:00 ALAN DICKERSON Aug 04, 2016 10:41
[2016-08-04] MEDS ORDERED: LEVOFLOXACIN 500MG/D5W (PMX) 100 ML IVPB SCH (11:30)
--- NOTE | 2016-08-04 14:11 | RADRPT ---
PROCEDURE: Chest 2 views. CLINICAL INDICATION: Shortness of breath. TECHNIQUE: PA and lateral views of the chest were obtained. COMPARISON: August 01, 2016 FINDINGS: Heart borders are obscured by the opacities. Calcified atherosclerosis is seen in the aorta. Left m id and lower lung infiltrates combined with moderate pleural effusion are stable. Right lung is hyp erexpanded. Interstitial prominence in both lungs is stable. The osseous structures are osteopenic , but appear grossly intact. IMPRESSION: Calcified atherosclerosis in the aorta. Stable right mid and lower lung infiltrates, combined with moderate pleural effusion. Hyperexpanded right lung with stable mild interstitial prominence in both lungs. RPTAT: AA .Toni Clay MD, Date Time Electronically viewed and signed by .Toni Clay MD, on 08/04/2016 14:11 .P/
--- NOTE | 2016-08-04 14:14 | PN ---
Date/Time of Note Date/Time of Note DATE: 08/04/16 TIME: 14:10 Assessment/Plan VTE Prophylaxis VTE Prophylaxis Intervention: ambulation Lines/Catheters IV Catheter Type (from [facility]): Saline Lock Assessment/Plan Chief Complaint/Hosp Course 1. Acute hypoxemic respiratory failure, chronic obstructive pulmonary disease exacerbation. 2. The patient is atrial fibrillation with rapid ventricular response. 3. Lung infiltrate, pleural effusions. 4. Cardiomegaly. 5. Atherosclerotic heart disease. 6. Dyslipidemia. 7. History of lung carcinoma and radiatio Problems: Assessment/Plan 1. Continue breathing treatment Exam/Review of Systems Vital Signs Vitals Vital Signs Date Time Temp Pulse Resp B/P Pulse Ox O2 Delivery O2 Flow Rate FiO2 08/04/16 12:04 111 08/04/16 11:41 18 95 Nasal Cannula 3.0 08/04/16 11:37 97.6 141/59 08/02/16 17:02 32 Intake and Output 08/03/16 08/03/16 08/04/16 15:00 23:00 07:00 Intake Total 950 ml 350 ml Balance 950 ml 350 ml Results Result Diagram: 08/03/16 0646 08/04/16 0705 Results 24 hrs Laboratory Tests Test 08/04/16 07:05 Sodium Level 133 L Potassium Level 4.8 Chloride Level 97 Carbon Dioxide Level 25 Anion Gap 16 Blood Urea Nitrogen 35 H Creatinine 1.49 H Glucose Level 136 Calcium Level 8.8 Medications Medications Current Medications Pantoprazole (Protonix Tab) 40 mg DAILY@06 PO Last administered on 08/04/16 06: 37; Admin Dose 40 MG; Start 08/02/16 at 06:00 Albuterol/ Ipratropium (Duoneb) 3 ml PRN PRN HHN SHORTNESS OF BREATH; Start at 17:30 Atenolol (Tenormin) 25 mg HS PO Last administered on 08/03/16 20:41; Admin Dose 25 MG; Start 08/01/16 at 21:00 Bupropion HCl (Wellbutrin Sr) 150 mg DAILY PO Last administered on 08/04/16 09: 06; Admin Dose 150 MG; Start 08/02/16 at 09:00 Cilostazol (Pletal) 50 mg BID PO Last administered on 08/04/16 09:07; Admin Dose 50 MG; Start 08/01/16 at 21:00 Polyethylene Glycol (Miralax) 8.5 gm DAILY PO Last administered on 08/04/16 09: 06; Admin Dose 8.5 GM; Start 08/02/16 at 09:00 Aspirin (Aspirin) 325 mg DAILY PO Last administered on 08/04/16 09:06; Admin Dose 325 MG; Start 08/02/16 at 09:00 Enoxaparin Sodium (Lovenox) 100 mg Q12 SC Last administered on 08/04/16 09:19; Admin Dose 100 MG; Start 08/01/16 at 21:00 Guaifenesin/ Codeine Phosphate (Robitussin Ac Liquid Cup) 10 ml BID PRN PO COUGH Last administered on 08/04/16 09:32; Admin Dose 10 ML; Start 08/01/16 at 22:30 Bisacodyl (Dulcolax) 10 mg BID PO Last administered on 08/04/16 09:07; Admin Dose 10 MG; Start 08/03/16 at 21:00 Sodium Biphosphate/ Sodium Phosphate (Fleet Enema) 133 ml DAILY PRN [place] CONSTIPATION; Start 08/03/16 at 17:00 Diltiazem HCl (Cardizem) 30 mg Q8 PO Last administered on 08/04/16 06:37; Admin Dose 30 MG; Start 08/03/16 at 22:00 Metoprolol Tartrate 5 mg 5 mg Q4H PRN IV HR>110 Hold SBP<100; Start 08/03/16 at 20:00 Levofloxacin/ Dextrose (Levaquin 500mg/ D5W 100 ml (Pmx)) 100 ml @ 100 mls/hr ONCE IVPB Last administered on 08/04/16 11:38; Admin Dose 100 MLS/HR; Start 08/04/16 at 11:30; Stop 08/04/16 at 22:00 Methylprednisolone Sodium Succinate 40 mg 40 mg Q6 IV Last administered on 11:38; Admin Dose 40 MG; Start 08/04/16 at 12:00 Levofloxacin/ Dextrose (Levaquin 250 Mg/ D5W 50 ml (Pmx)) 50 ml @ 50 mls/hr Q24H IVPB ; Start 08/05/16 at 11:30 JASPER SAHU Aug 04, 2016 14:14
--- NOTE | 2016-08-04 15:20 | CONS ---
DATE OF ADMISSION: 08/03/2016 DATE OF CONSULTATION: 08/04/2016 TYPE OF CONSULTATION: Infectious Disease. REASON FOR CONSULTATION: Antibiotic management. HISTORY OF PRESENT ILLNESS: Sung Nielsen is a 76-year-old male with numerous problems who comes in with atrial fibrillation with rapid ventricular response and is being seen for antibiotic managemen t. His past problems include: 1. COPD. 2. Chronic renal disease. 3. Coronary artery disease. 4. Dyslipidemia. 5. History of lung cancer status post radiation per patient. 6. History of hypoxia and respiratory distress due to moderate left pleural effusion. 7. Left lower lobe pneumonia. 8. History of thoracentesis. 9. Atrial fibrillation with rapid ventricular response. 10. Cardiomyopathy with ejection fraction of 35% to 40%. 11. Congestive heart failure. 12. Hypertension. 13. History of cerebrovascular accident. 14. History of carotid endarterectomy. Acutely, the patient comes in with atrial fibrillation with rapid ventricular response. Currently, his white count was 12.8, H and H 11.9 and 34.8, platelet count 237,000. BUN and creatinine 35/1.49 , glucose of 136. The patient has acute hypoxemic respiratory failure, COPD, atrial fibrillation. His chest x-ray shows left lower lobe infiltrate and atelectasis with worsening moderate left pleura l effusion and today he has calcified atherosclerosis, right middle and lower lung infiltrates along with moderate pleural effusion, hyperexpanded right lung with stable mild interstitial prominence i n both lungs. Blood cultures so far are negative. The patient was begun on Levaquin, methylprednisolone. He was on cefepime. Blood cultures are pending. We should order cultures of the sputum. The patient appears to have significant pulmonary infiltrates. White count is 12.8. We may want to change his Levaquin to cefepime. I will dictate my findings to the hospitalist. Dictated By: JEFFRY CASTILLO MD, JD/JACQUELINE Conf#: [id number] DID#: [id number]
--- NOTE | 2016-08-04 16:44 | CONS ---
Date/Time of Note Date/Time of Note DATE: 08/04/16 TIME: 16:42 Assessment/Plan Assessment/Plan Chief Complaint/Hosp Course IMP: 1.AF with RVR 2.CHF-systolic EF last 35-40 3.HTN-HOTN now and not tolerating medications for rate control/? overdiuresis- currently improved s/p IVF bolus 4.Possible scabies s/p teatment 5.COPD 6. H/O lung ca 7.PNA and effusion L sided 8.ARF-ongoing Recc: -Tele -Continue atenolol with slight increase as tolerated to improve HR -Will also increase dilt if continues to tolerate well -Continue asa/lovenox -Continue abx's and f/u cx data Problems: Consultation Date/Type/Reason Admit Date/Time Aug 03, 2016 at 16:58 Initial Consult Date 08/01/2016 Type of Consultation: Cardiology Reason for Consultation AF with RVR Referring Provider: KARLEY DEAN MD Exam/Review of Systems Vital Signs Vitals Vital Signs Date Time Temp Pulse Resp B/P Pulse Ox O2 Delivery O2 Flow Rate FiO2 08/04/16 16:04 114 08/04/16 15:43 98.2 18 115/67 93 08/04/16 11:41 Nasal Cannula 3.0 08/02/16 17:02 32 Intake and Output 08/03/16 08/03/16 08/04/16 15:00 23:00 07:00 Intake Total 950 ml 350 ml Balance 950 ml 350 ml Exam Review of Systems: CONSTITUTIONAL: No fevers, chills. PULMONARY: No sob CARDIOVASCULAR: No chest pain/palpitations GASTROINTESTINAL: No nausea/vomiting. GENITOURINARY: No hematuria/dysuria. MUSCULOSKELETAL: No myagias/arthalgias. PSYCHIATRIC: The patient denies depression. NEUROLOGIC: No weakness Constitutional: alert, oriented Psych: no complaints Head: normocephalic ENMT: mucosa pink and moist Neck: jvd (9 cm water), supple Respiratory: diminished breath sounds (at bases/B) Cardiovascular: irregular rhythm (tachycardic) Gastrointestinal: non-tender, soft Musculoskeletal: other (No focal deficits) Extremities: other (none) Results Result Diagram: 08/03/16 0646 08/04/16 0705 Results 24 hrs Laboratory Tests Test 08/04/16 07:05 Sodium Level 133 L Potassium Level 4.8 Chloride Level 97 Carbon Dioxide Level 25 Anion Gap 16 Blood Urea Nitrogen 35 H Creatinine 1.49 H Glucose Level 136 Calcium Level 8.8 Medications Medications Current Medications Pantoprazole (Protonix Tab) 40 mg DAILY@06 PO Last administered on 08/04/16 06: 37; Admin Dose 40 MG; Start 08/02/16 at 06:00 Albuterol/ Ipratropium (Duoneb) 3 ml PRN PRN HHN SHORTNESS OF BREATH; Start at 17:30 Atenolol (Tenormin) 25 mg HS PO Last administered on 08/03/16 20:41; Admin Dose 25 MG; Start 08/01/16 at 21:00 Bupropion HCl (Wellbutrin Sr) 150 mg DAILY PO Last administered on 08/04/16 09: 06; Admin Dose 150 MG; Start 08/02/16 at 09:00 Cilostazol (Pletal) 50 mg BID PO Last administered on 08/04/16 09:07; Admin Dose 50 MG; Start 08/01/16 at 21:00 Polyethylene Glycol (Miralax) 8.5 gm DAILY PO Last administered on 08/04/16 09: 06; Admin Dose 8.5 GM; Start 08/02/16 at 09:00 Aspirin (Aspirin) 325 mg DAILY PO Last administered on 08/04/16 09:06; Admin Dose 325 MG; Start 08/02/16 at 09:00 Enoxaparin Sodium (Lovenox) 100 mg Q12 SC Last administered on 08/04/16 09:19; Admin Dose 100 MG; Start 08/01/16 at 21:00 Guaifenesin/ Codeine Phosphate (Robitussin Ac Liquid Cup) 10 ml BID PRN PO COUGH Last administered on 08/04/16 09:32; Admin Dose 10 ML; Start 08/01/16 at 22:30 Bisacodyl (Dulcolax) 10 mg BID PO Last administered on 08/04/16 09:07; Admin Dose 10 MG; Start 08/03/16 at 21:00 Sodium Biphosphate/ Sodium Phosphate (Fleet Enema) 133 ml DAILY PRN [place] CONSTIPATION; Start 08/03/16 at 17:00 Diltiazem HCl (Cardizem) 30 mg Q8 PO Last administered on 08/04/16 14:55; Admin Dose 30 MG; Start 08/03/16 at 22:00 Metoprolol Tartrate (Lopressor) 5 mg Q4H PRN IV HR>110 Hold SBP<100; Start 08/03 at 20:00 Methylprednisolone Sodium Succinate 40 mg 40 mg Q6 IV Last administered on 11:38; Admin Dose 40 MG; Start 08/04/16 at 12:00 Cefepime HCl (Maxipime 1gm/50 ml (Pmx)) 50 ml @ 100 mls/hr Q12 IVPB ; Start 08/04/16 at 21:00 CECE LOPEZ Aug 04, 2016 16:44
[2016-08-04] MEDS: ATENOLOL 25 MG TAB PO SCH (20:52)
[2016-08-04] MEDS: DILTIAZEM 60 MG TAB PO SCH (22:31)
--- NOTE | 2016-08-04 23:59 | RADRPT ---
Vent Rate: 116 bpm RR Interval: 0 msec UT Interval: 0 msec QRS Duration: 86 msec QT Interval: 308 msec QTC Interval: 428 msec P-R-T [place]: 0 - 61 - 0 degrees Atrial fibrillation with rapid ventricular response ST and T wave abnormality, consider inferolateral ischemia Abnormal ECG Electronically Signed By: Federico Calvin [id number]
[2016-08-05] VITALS (12 sets, daily range): BP systolic 98–120; BP diastolic 54–75; PULSE 89–112; RESP 18–20
[2016-08-05] MEDS: ALBUTEROL/IPRATROPIUM (NEB) 3 ML AMP HHN SCH ×6 (00:26→20:14)
[2016-08-05] MEDS: METHYLPREDNISOLONE 40 MG INJ IV SCH ×5 (00:47→23:38)
[2016-08-05] MEDS: PANTOPRAZOLE (EC) 40 MG TAB PO SCH (05:48)
[2016-08-05] MEDS: DILTIAZEM 60 MG TAB PO SCH ×3 (05:48→22:22)
[2016-08-05 07:33] LABS: ADD SCAN DIFF NO
[2016-08-05 07:35] LABS: BASOPHILS % 0.1 % (0.0-2.0); HEMATOCRIT 35.8 % (42.0-52.0); HEMOGLOBIN 12.2 g/dl (14.0-18.0); LYMPHOCYTES # 0.7 10^3/ul (0.8-2.9); LYMPHOCYTES % 6.3 % (15.0-51.0); MEAN CORPUSCULAR HEMOGLOBIN 33.5 pg (29.0-33.0); MEAN CORPUSCULAR HGB CONC 34.1 g/dl (32.0-37.0); MEAN CORPUSCULAR VOLUME 98.4 fl (82.0-101.0); MEAN PLATELET VOLUME 9.6 fl (7.4-10.4); MONOCYTE # 0.5 10^3/ul (0.3-0.9); NEUTROPHIL # 9.2 10^3/ul (1.6-7.5); NEUTROPHILS % 88.2 % (39.0-77.0); PLATELET COUNT 228 10^3/UL (140-415); RED BLOOD COUNT 3.64 10^6/ul (4.70-6.10); RED CELL DISTRIBUTION WIDTH 13.8 % (11.5-14.5); WHITE BLOOD COUNT 10.4 10^3/ul (4.8-10.8)
[2016-08-05 07:55] LABS: CALCIUM 8.7 mg/dl (8.4-10.2); CREATININE 1.35 mg/dl (0.61-1.24); POTASSIUM 4.2 mmol/L (3.5-5.1)
[2016-08-05] MEDS ORDERED: ASPIRIN 81 MG TAB PO SCH (09:00)
[2016-08-05] MEDS: BISACODYL (EC) 5 MG TAB PO SCH ×2 (09:03→21:11)
[2016-08-05] MEDS: ATENOLOL 25 MG TAB PO SCH ×2 (09:03→21:00)
[2016-08-05] MEDS: POLYETHYLENE GLYCOL 17 GM PACKET PO SCH (09:04)
[2016-08-05] MEDS: CILOSTAZOL 100 MG TAB PO SCH ×2 (09:04→21:11)
[2016-08-05] MEDS: CEFEPIME 1GM/50 ML (PMX) 50 ML IVPB SCH ×2 (09:04→21:10)
[2016-08-05] MEDS: BUPROPION (SR) 150 MG TAB PO SCH (09:04)
[2016-08-05] MEDS: GUAIFENESIN/CODEINE 5ML CUP PO PRN (09:06)
--- NOTE | 2016-08-05 10:26 | CONS ---
Date/Time of Note Date/Time of Note DATE: 08/05/16 TIME: 10:23 Assessment/Plan Assessment/Plan Additional Assessment/Plan Chest x-ray was reviewed from yesterday which is showing a moderate left pleural effusion. Assessment recommendations; 1. Patient admitted for shortness of breath due to COPD exacerbation with a developing left pleural effusion. 2. History of left lower lobe lung malignancy status post chemoradiation. 3. History of hypertension. 4. Cardiomyopathy. Patient scheduled for thoracentesis on the left side. I would recommend sending the fluid for cytology and protein level. Consultation Date/Type/Reason Admit Date/Time Aug 03, 2016 at 16:58 Initial Consult Date 08/03/16 Type of Consultation: Pulmonary Referring Provider: KARLEY DEAN MD 24 HR Interval Summary Free Text/Dictation Patient condition is stable. Denies any shortness of breath, chest pain, complains of scant cough without any hemoptysis. Complains of scant sputum production. Denies any fever chills. General exam; elderly male, awake alert currently in no distress. Exam/Review of Systems Vital Signs Vitals Vital Signs Date Time Temp Pulse Resp B/P Pulse Ox O2 Delivery O2 Flow Rate FiO2 08/05/16 10:13 89 20 100 21 08/05/16 07:20 97.4 112/75 08/05/16 05:29 Nasal Cannula 3.0 Intake and Output 08/04/16 08/04/16 08/05/16 15:00 23:00 07:00 Intake Total 1005 ml 500 ml Output Total 600 ml Balance 1005 ml -100 ml Exam HEENT exam; supple neck, no JVD. No lymphadenopathy. Midline trachea. No thyromegaly. Pharynx is clear. Patient wears dentures. Neck Chest examination; diminished breath sound left lower lobe. Rest of the lung kelley also revealed diminished breath sounds. But more pronounced in the left lower lobe. S1-S2 audible, no murmurs. Regular rhythm. Abdomen examination; soft, no distention. No organomegaly. Bowel sounds audible. Extremity examination; no peripheral edema. [employer] examination; no focal deficit. Results Result Diagram: 08/05/16 0657 08/05/16 0657 Results 24 hrs Laboratory Tests Test 08/05/16 06:57 White Blood Count 10.4 Red Blood Count 3.64 L Hemoglobin 12.2 L Hematocrit 35.8 L Mean Corpuscular Volume 98.4 Mean Corpuscular Hemoglobin 33.5 H Mean Corpuscular Hemoglobin Concent 34.1 Red Cell Distribution Width 13.8 Platelet Count 228 Mean Platelet Volume 9.6 Neutrophils % 88.2 H Lymphocytes % 6.3 L Monocytes % 5.0 Eosinophils % 0.0 Basophils % 0.1 Nucleated Red Blood Cells % 0.0 Neutrophils # 9.2 H Lymphocytes # 0.7 L Monocytes # 0.5 Eosinophils # 0.0 Basophils # 0.0 Nucleated Red Blood Cells # 0.0 Sodium Level 133 L Potassium Level 4.2 Chloride Level 101 Carbon Dioxide Level 21 Anion Gap 15 Blood Urea Nitrogen 35 H Creatinine 1.35 H Glucose Level 130 Calcium Level 8.7 Medications Medications Current Medications Pantoprazole (Protonix Tab) 40 mg DAILY@06 PO Last administered on 08/05/16 05: 48; Admin Dose 40 MG; Start 08/02/16 at 06:00 Albuterol/ Ipratropium (Duoneb) 3 ml PRN PRN HHN SHORTNESS OF BREATH; Start at 17:30 Bupropion HCl (Wellbutrin Sr) 150 mg DAILY PO Last administered on 08/05/16 09: 04; Admin Dose 150 MG; Start 08/02/16 at 09:00 Cilostazol (Pletal) 50 mg BID PO Last administered on 08/05/16 09:04; Admin Dose 50 MG; Start 08/01/16 at 21:00 Polyethylene Glycol (Miralax) 8.5 gm DAILY PO Last administered on 08/05/16 09: 04; Admin Dose 8.5 GM; Start 08/02/16 at 09:00 Enoxaparin Sodium (Lovenox) 100 mg Q12 SC Last administered on 08/04/16 21:00; Admin Dose 100 MG; Start 08/01/16 at 21:00; Status Future Hold Guaifenesin/ Codeine Phosphate (Robitussin Ac Liquid Cup) 10 ml BID PRN PO COUGH Last administered on 08/05/16 09:06; Admin Dose 10 ML; Start 08/01/16 at 22:30 Bisacodyl (Dulcolax) 10 mg BID PO Last administered on 08/05/16 09:03; Admin Dose 10 MG; Start 08/03/16 at 21:00 Sodium Biphosphate/ Sodium Phosphate (Fleet Enema) 133 ml DAILY PRN [place] CONSTIPATION; Start 08/03/16 at 17:00 Metoprolol Tartrate (Lopressor) 5 mg Q4H PRN IV HR>110 Hold SBP<100; Start 08/03 at 20:00 Methylprednisolone Sodium Succinate 40 mg 40 mg Q6 IV Last administered on 05:48; Admin Dose 40 MG; Start 08/04/16 at 12:00 Cefepime HCl (Maxipime 1gm/50 ml (Pmx)) 50 ml @ 100 mls/hr Q12 IVPB Last administered on 08/05/16 09:04; Admin Dose 100 MLS/HR; Start 08/04/16 at 21:00 Aspirin (Aspirin) 81 mg DAILY PO ; Start 08/05/16 at 09:00; Status Future Hold Atenolol (Tenormin) 25 mg BID PO Last administered on 08/05/16 09:03; Admin Dose 25 MG; Start 08/04/16 at 21:00 Diltiazem HCl (Cardizem) 60 mg Q8 PO Last administered on 08/05/16 05:48; Admin Dose 60 MG; Start 08/04/16 at 22:00 ALAN DICKERSON Aug 05, 2016 10:26
--- NOTE | 2016-08-05 11:21 | CONS ---
Date/Time of Note Date/Time of Note DATE: 08/05/16 TIME: 11:19 Assessment/Plan Assessment/Plan Additional Assessment/Plan 1.AF with RVR - rate better controlled at 90s 2.CHF-systolic EF last 35-40 - con't to keep euvolemic, no indication g=for ICD EF > 35% 3.HTN-HOTN now and not tolerating medications for rate control/? overdiuresis- currently improved s/p IVF bolus 4.Possible scabies s/p teatment 5.COPD - on Rx 6. H/O lung ca 7.PNA and effusion L sided - on anti-bx, will monitor 8.ARF-ongoing Consultation Date/Type/Reason Admit Date/Time Aug 03, 2016 at 16:58 Initial Consult Date 08/03/16 Type of Consultation: Pulmonary Referring Provider: KARLEY DEAN MD 24 HR Interval Summary Free Text/Dictation A. fib with controlled rate - no CP noted, doubt ischemia ROS: No fever, no chills, no nausea, no vomiting, no diarrhea/constipation No recent weight changes No chest pain, no PND, no orthopnea, + SOB chronic No dizziness, blurred vision No thirst, no heat or cold intolerance Exam/Review of Systems Vital Signs Vitals Vital Signs Date Time Temp Pulse Resp B/P Pulse Ox O2 Delivery O2 Flow Rate FiO2 08/05/16 10:13 89 20 100 21 08/05/16 08:00 Nasal Cannula 2.0 08/05/16 07:20 97.4 112/75 Intake and Output 08/04/16 08/04/16 08/05/16 15:00 23:00 07:00 Intake Total 1005 ml 500 ml Output Total 600 ml Balance 1005 ml -100 ml Exam General: WN/WD/NAD, AOx 2-3 HEENT: Unicetric/atraumatic/EOMI (follow commands) NECK: JVD elevated, no thyromegaly Lymph: no lymphadenopathy HEART: IRregular with no S3, II/ systolic murmur at apex LUNGS: Coarse sounds ABD: soft, NT, ND, +BS : Intact Neuro: non focal SKIN: chronic changes EXT: trace edema Results Result Diagram: 08/05/16 0657 08/05/16 0657 Results 24 hrs Laboratory Tests Test 08/05/16 06:57 White Blood Count 10.4 Red Blood Count 3.64 L Hemoglobin 12.2 L Hematocrit 35.8 L Mean Corpuscular Volume 98.4 Mean Corpuscular Hemoglobin 33.5 H Mean Corpuscular Hemoglobin Concent 34.1 Red Cell Distribution Width 13.8 Platelet Count 228 Mean Platelet Volume 9.6 Neutrophils % 88.2 H Lymphocytes % 6.3 L Monocytes % 5.0 Eosinophils % 0.0 Basophils % 0.1 Nucleated Red Blood Cells % 0.0 Neutrophils # 9.2 H Lymphocytes # 0.7 L Monocytes # 0.5 Eosinophils # 0.0 Basophils # 0.0 Nucleated Red Blood Cells # 0.0 Sodium Level 133 L Potassium Level 4.2 Chloride Level 101 Carbon Dioxide Level 21 Anion Gap 15 Blood Urea Nitrogen 35 H Creatinine 1.35 H Glucose Level 130 Calcium Level 8.7 Medications Medications Current Medications Pantoprazole (Protonix Tab) 40 mg DAILY@06 PO Last administered on 08/05/16 05: 48; Admin Dose 40 MG; Start 08/02/16 at 06:00 Albuterol/ Ipratropium (Duoneb) 3 ml PRN PRN HHN SHORTNESS OF BREATH; Start at 17:30 Bupropion HCl (Wellbutrin Sr) 150 mg DAILY PO Last administered on 08/05/16 09: 04; Admin Dose 150 MG; Start 08/02/16 at 09:00 Cilostazol (Pletal) 50 mg BID PO Last administered on 08/05/16 09:04; Admin Dose 50 MG; Start 08/01/16 at 21:00 Polyethylene Glycol (Miralax) 8.5 gm DAILY PO Last administered on 08/05/16 09: 04; Admin Dose 8.5 GM; Start 08/02/16 at 09:00 Enoxaparin Sodium (Lovenox) 100 mg Q12 SC Last administered on 08/04/16 21:00; Admin Dose 100 MG; Start 08/01/16 at 21:00; Status Future Hold Guaifenesin/ Codeine Phosphate (Robitussin Ac Liquid Cup) 10 ml BID PRN PO COUGH Last administered on 08/05/16 09:06; Admin Dose 10 ML; Start 08/01/16 at 22:30 Bisacodyl (Dulcolax) 10 mg BID PO Last administered on 08/05/16 09:03; Admin Dose 10 MG; Start 08/03/16 at 21:00 Sodium Biphosphate/ Sodium Phosphate (Fleet Enema) [address] CONSTIPATION; Start 08/03/16 at 17:00 Metoprolol Tartrate (Lopressor) 5 mg Q4H PRN IV HR>110 Hold SBP<100; Start 08/03 at 20:00 Methylprednisolone Sodium Succinate 40 mg 40 mg Q6 IV Last administered on 05:48; Admin Dose 40 MG; Start 08/04/16 at 12:00 Cefepime HCl (Maxipime 1gm/50 ml (Pmx)) 50 ml @ 100 mls/hr Q12 IVPB Last administered on 08/05/16 09:04; Admin Dose 100 MLS/HR; Start 08/04/16 at 21:00 Aspirin (Aspirin) 81 mg DAILY PO ; Start 08/05/16 at 09:00; Status Future Hold Atenolol (Tenormin) 25 mg BID PO Last administered on 08/05/16 09:03; Admin Dose 25 MG; Start 08/04/16 at 21:00 Diltiazem HCl (Cardizem) 60 mg Q8 PO Last administered on 08/05/16 05:48; Admin Dose 60 MG; Start 08/04/16 at 22:00 EMILY SANTAMARIA MD Aug 05, 2016 11:21
[2016-08-05] MEDS ORDERED: LEVOFLOXACIN 250MG/D5W (PMX) 50 ML IVPB SCH (11:30)
[2016-08-05] MEDS ORDERED: CEFEPIME 1GM/50 ML (PMX) 50 ML IVPB SCH (12:30)
--- NOTE | 2016-08-05 13:24 | PN ---
Date/Time of Note Date/Time of Note DATE: 08/05/16 TIME: 13:22 Assessment/Plan VTE Prophylaxis VTE Prophylaxis Intervention: ambulation Lines/Catheters [facility] Assessment/Plan Chief Complaint/Hosp Course 1. Acute hypoxemic respiratory failure, chronic obstructive pulmonary disease exacerbation. 2. The patient is atrial fibrillation with rapid ventricular response. 3. Lung infiltrate, pleural effusions. 4. Cardiomegaly. 5. Atherosclerotic heart disease. 6. Dyslipidemia. 7. History of lung carcinoma and radiatio Problems: Assessment/Plan 1. Continue breathing treatmenets and oxygen therapy Subjective 24 Hr Interval Summary Free Text/Dictation itching whole body Constitutional: improved, no complaints Exam/Review of Systems Vital Signs Vitals Vital Signs Date Time Temp Pulse Resp B/P Pulse Ox O2 Delivery O2 Flow Rate FiO2 08/05/16 12:58 103 22 96 21 08/05/16 11:34 97.7 117/75 08/05/16 08:00 Nasal Cannula 2.0 Intake and Output 08/04/16 08/04/16 08/05/16 15:00 23:00 07:00 Intake Total 1005 ml 500 ml Output Total 600 ml Balance 1005 ml -100 ml Exam Constitutional: alert Eyes: nl conjunctiva Neck: supple Respiratory: clear to auscultation Cardiovascular: irregular rhythm, other (afib), regular rate and rhythm Results Result Diagram: 08/05/16 0657 08/05/16 0657 Results 24 hrs Laboratory Tests Test 08/05/16 06:57 White Blood Count 10.4 Red Blood Count 3.64 L Hemoglobin 12.2 L Hematocrit 35.8 L Mean Corpuscular Volume 98.4 Mean Corpuscular Hemoglobin 33.5 H Mean Corpuscular Hemoglobin Concent 34.1 Red Cell Distribution Width 13.8 Platelet Count 228 Mean Platelet Volume 9.6 Neutrophils % 88.2 H Lymphocytes % 6.3 L Monocytes % 5.0 Eosinophils % 0.0 Basophils % 0.1 Nucleated Red Blood Cells % 0.0 Neutrophils # 9.2 H Lymphocytes # 0.7 L Monocytes # 0.5 Eosinophils # 0.0 Basophils # 0.0 Nucleated Red Blood Cells # 0.0 Sodium Level 133 L Potassium Level 4.2 Chloride Level 101 Carbon Dioxide Level 21 Anion Gap 15 Blood Urea Nitrogen 35 H Creatinine 1.35 H Glucose Level 130 Calcium Level 8.7 Medications Medications Current Medications Pantoprazole (Protonix Tab) 40 mg DAILY@06 PO Last administered on 08/05/16 05: 48; Admin Dose 40 MG; Start 08/02/16 at 06:00 Albuterol/ Ipratropium (Duoneb) 3 ml PRN PRN HHN SHORTNESS OF BREATH; Start at 17:30 Bupropion HCl (Wellbutrin Sr) 150 mg DAILY PO Last administered on 08/05/16 09: 04; Admin Dose 150 MG; Start 08/02/16 at 09:00 Cilostazol (Pletal) 50 mg BID PO Last administered on 08/05/16 09:04; Admin Dose 50 MG; Start 08/01/16 at 21:00 Polyethylene Glycol (Miralax) 8.5 gm DAILY PO Last administered on 08/05/16 09: 04; Admin Dose 8.5 GM; Start 08/02/16 at 09:00 Enoxaparin Sodium (Lovenox) 100 mg Q12 SC Last administered on 08/04/16 21:00; Admin Dose 100 MG; Start 08/01/16 at 21:00; Status Future Hold Guaifenesin/ Codeine Phosphate (Robitussin Ac Liquid Cup) 10 ml BID PRN PO COUGH Last administered on 08/05/16 09:06; Admin Dose 10 ML; Start 08/01/16 at 22:30 Bisacodyl (Dulcolax) 10 mg BID PO Last administered on 08/05/16 09:03; Admin Dose 10 MG; Start 08/03/16 at 21:00 Sodium Biphosphate/ Sodium Phosphate (Fleet Enema) 133 ml DAILY PRN [place] CONSTIPATION; Start 08/03/16 at 17:00 Metoprolol Tartrate (Lopressor) 5 mg Q4H PRN IV HR>110 Hold SBP<100; Start 08/03 at 20:00 Methylprednisolone Sodium Succinate 40 mg 40 mg Q6 IV Last administered on 12:24; Admin Dose 40 MG; Start 08/04/16 at 12:00 Cefepime HCl (Maxipime 1gm/50 ml (Pmx)) 50 ml @ 100 mls/hr Q12 IVPB Last administered on 08/05/16 09:04; Admin Dose 100 MLS/HR; Start 08/04/16 at 21:00 Aspirin (Aspirin) 81 mg DAILY PO ; Start 08/05/16 at 09:00; Status Future Hold Atenolol (Tenormin) 25 mg BID PO Last administered on 08/05/16 09:03; Admin Dose 25 MG; Start 08/04/16 at 21:00 Diltiazem HCl (Cardizem) 60 mg Q8 PO Last administered on 08/05/16 13:06; Admin Dose 60 MG; Start 08/04/16 at 22:00 JASPER SAHU Aug 05, 2016 13:24
[2016-08-05] MEDS: CLOBETASOL 0.05% 15 GM CR TOP SCH ×2 (14:30→21:17)
[2016-08-05] MEDS ORDERED: LIDOCAINE 1% (MDV) 20 ML INJ ONE (15:06)
--- NOTE | 2016-08-05 15:25 | PN ---
DATE: 08/05/2016 INFECTIOUS DISEASE PROGRESS NOTE SUBJECTIVE: No acute changes. The patient is alert, looks comfortable. No fevers. Vital signs stable. WBC 10.4, platelets 228, neutrophils 88.2, BUN 35, creatinine 1.35. MICROBIOLOGY: Blood cultures remain negative. Sputum, preliminary negative culture. ANTIMICROBIALS: The patient is on cefepime and also on steroids. PHYSICAL EXAMINATION: GENERAL: This is a fragile, well-developed elderly man, who is awake, in no distress. HEENT: Head atraumatic, normocephalic. Sclerae anicteric. Buccal mucosa dry. NECK: Supple. CHEST: Chest rise is symmetrical. Breath sounds diminished to the left. HEART: S1, S2. ABDOMEN: Soft, bowel tones present. EXTREMITIES: No cyanosis. ASSESSMENT: 1. Acute respiratory failure secondary to chronic obstructive pulmonary disease exacerbation and le ft pleural effusion. Remains on cefepime, pending thoracentesis. 2. Chronic kidney disease. 3. Coronary artery disease. 4. History of lung cancer, status post radiation. 5. Atrial fibrillation and cardiomyopathy. PLAN: The patient remains stable, followed by cardiology and the pulmonary team, pending thoracente sis. Continue the present care and antibiotics. Await for final sputum cultures. Dictated By: SUZANNE DANIELS SHANK TAPER for JEFFRY NOLASCO/JACQUELINE Conf#: [id number] DID#: [id number]
[2016-08-05] MEDS ORDERED: LIDOCAINE 1% (MPF) 5 ML VIAL ONE (15:44)
--- NOTE | 2016-08-05 16:08 | RADRPT ---
PROCEDURE: XR Chest. CLINICAL INDICATION: Post thoracentesis TECHNIQUE: Anterior chest x-ray. COMPARISON: 60 17 at 1345 hours. FINDINGS: Small left pleural effusion is improved compared to previous exam. Patchy airspace opacities remain in the left mid and lower lung zone. The right lung is clear. There is no evidence of pneumothorax. The heart size is large. There is atherosclerotic calcification of the aorta. The cardiomediastina l silhouette is otherwise unremarkable. The soft tissues are normal. Osseous structures are unremarkable. IMPRESSION: 1. Interval significant decrease in left pleural effusion. 2. No evidence of pneumothorax. 3. Persistent air space opacities in the left mid and lower lung zone suggest pulmonary infiltrates . Underlying mass is not excluded. 4. Cardiomegaly. 5. Atherosclerotic calcification of the aorta. RPTAT: QQ .Momo Merritt MD, MD Date Time Electronically viewed and signed by .Momo Merritt MD, on 08/05/2016 16:08 .M/
--- NOTE | 2016-08-05 17:25 | RADRPT ---
PROCEDURE: Ultrasound guided thoracentesis CLINICAL INDICATION: Pleural effusion TECHNIQUE: Multiple sonographic images were obtained through the patient's chest. A site in the stephanie boateng's left lower chest was selected and marked ink pen. The area was prepped and draped in the [facility] sterile fashion. The skin and subcutaneous tissues were anesthetized with 15 cc of 1% lidocaine . A a 6-Telugu 10 cm long thoracentesis needle was advanced into the pleural space and the introduce r was connected to a vacuum drainage system. A total of 1400 cc of clear yellow fluid was drained. The patient tolerated the procedure well. COMPARISON: Radiograph dated 08/04/2016 FINDINGS: Anechoic fluid visualized in the chest cavity on ultrasound. IMPRESSION: 1. Successful ultrasound-guided thoracentesis without immediate complication. RPTAT: QQ .Momo Merritt MD, Date Time Electronically viewed and signed by .Momo Merritt MD, on 08/05/2016 17:25 .M/
[2016-08-05] MEDS: hydrOXYzine HCL 10 MG TAB PO SCH (21:11)
[2016-08-06] VITALS (11 sets, daily range): BP systolic 92–151; BP diastolic 51–75; PULSE 91–109; RESP 17–20
[2016-08-06] MEDS: ALBUTEROL/IPRATROPIUM (NEB) 3 ML AMP HHN SCH ×6 (00:41→20:00)
[2016-08-06] MEDS: METHYLPREDNISOLONE 40 MG INJ IV SCH ×3 (05:39→17:25)
[2016-08-06] MEDS: PANTOPRAZOLE (EC) 40 MG TAB PO SCH (05:39)
[2016-08-06] MEDS: DILTIAZEM 60 MG TAB PO SCH ×3 (05:53→22:00)
[2016-08-06] MEDS: CILOSTAZOL 100 MG TAB PO SCH ×2 (09:06→21:23)
[2016-08-06] MEDS: ATENOLOL 25 MG TAB PO SCH (09:06)
[2016-08-06] MEDS: BUPROPION (SR) 150 MG TAB PO SCH (09:06)
[2016-08-06] MEDS: BISACODYL (EC) 5 MG TAB PO SCH ×2 (09:07→21:21)
[2016-08-06] MEDS: CLOBETASOL 0.05% 15 GM CR TOP SCH ×2 (09:07→21:29)
[2016-08-06] MEDS: POLYETHYLENE GLYCOL 17 GM PACKET PO SCH (09:07)
[2016-08-06] MEDS: CEFEPIME 1GM/50 ML (PMX) 50 ML IVPB SCH ×2 (09:07→21:29)
--- NOTE | 2016-08-06 12:22 | CONS ---
Date/Time of Note Date/Time of Note DATE: 08/06/16 TIME: 12:19 Assessment/Plan Assessment/Plan Additional Assessment/Plan Assessment recommendations; 1. Patient admitted for severe exacerbation and discovered to have developing left pleural effusion status post thoracentesis yesterday. 2. History of left lower lobe lung malignancy several years ago status post radiation chemotherapy. Need to rule out recurrence. Pleural fluid cytology is pending. 3. History of hypertension and cardiomyopathy. Continue current treatment. Patient can be discharged to residential facility. Follow-up on pleural fluid cytology. Consultation Date/Type/Reason Admit Date/Time Aug 03, 2016 at 16:58 Initial Consult Date 08/03/16 Type of Consultation: Pulmonary Referring Provider: KARLEY DEAN MD 24 HR Interval Summary Free Text/Dictation Patient condition is markedly improved. He underwent left-sided thoracentesis yesterday 1.4 L of fluid was removed. Patient denies any shortness breath, chest pain. General exam; elderly male, awake alert currently in no distress. Exam/Review of Systems Vital Signs Vitals Vital Signs Date Time Temp Pulse Resp B/P Pulse Ox O2 Delivery O2 Flow Rate FiO2 08/06/16 12:00 97.5 95 19 124/74 100 08/06/16 08:47 21 08/06/16 05:40 Nasal Cannula 2.0 Intake and Output 08/05/16 08/05/16 08/06/16 15:00 23:00 07:00 Intake Total 510 ml 150 ml Output Total 100 ml 300 ml Balance 410 ml -150 ml Exam HEENT exam; supple neck, no JVD. No lymphadenopathy. Midline trachea. No thyromegaly. Pharynx is clear. Pupils are midsize and reactive to light. Chest examined; minimally decreased breath sounds left lower lobe. There is a seroma around the left thoracentesis site in the left posterior chest wall. Right lung is clear to auscultation. S1-S2 audible, no murmurs. Regular rhythm. Abdomen exam is; soft, nondistended. No organomegaly. Bowel sounds audible. Extremity examination; no peripheral edema. Pulses 1+ bilaterally. COMPUT[employer]ER examination; no focal deficit. Results Result Diagram: 08/05/1657 08/05/1657 Medications Medications Current Medications Pantoprazole (Protonix Tab) 40 mg DAILY@06 PO Last administered on 6/4/17at 05: 39; Admin Dose 40 MG; Start 08/02/16 at 06:00 Albuterol/ Ipratropium (Duoneb) 3 ml PRN PRN HHN SHORTNESS OF BREATH; Start at 17:30 Bupropion HCl (Wellbutrin Sr) 150 mg DAILY PO Last administered on 08/06/16 09: 06; Admin Dose 150 MG; Start 08/02/16 at 09:00 Cilostazol (Pletal) 50 mg BID PO Last administered on 08/06/16 09:06; Admin Dose 50 MG; Start 08/01/16 at 21:00 Polyethylene Glycol (Miralax) 8.5 gm DAILY PO Last administered on 08/06/16 09: 07; Admin Dose 8.5 GM; Start 08/02/16 at 09:00 Enoxaparin Sodium (Lovenox) 100 mg Q12 SC Last administered on 08/04/16 21:00; Admin Dose 100 MG; Start 08/01/16 at 21:00; Status Future Hold Guaifenesin/ Codeine Phosphate (Robitussin Ac Liquid Cup) 10 ml BID PRN PO COUGH Last administered on 08/05/16 09:06; Admin Dose 10 ML; Start 08/01/16 at 22:30 Bisacodyl (Dulcolax) 10 mg BID PO Last administered on 08/06/16 09:07; Admin Dose 10 MG; Start 08/03/16 at 21:00 Sodium Biphosphate/ Sodium Phosphate (Fleet Enema) 133 ml DAILY PRN [place] CONSTIPATION; Start 08/03/16 at 17:00 Metoprolol Tartrate (Lopressor) 5 mg Q4H PRN IV HR>110 Hold SBP<100; Start 08/03 at 20:00 Methylprednisolone Sodium Succinate 40 mg 40 mg Q6 IV Last administered on 11:44; Admin Dose 40 MG; Start 08/04/16 at 12:00 Cefepime HCl (Maxipime 1gm/50 ml (Pmx)) 50 ml @ 100 mls/hr Q12 IVPB Last administered on 08/06/16 09:07; Admin Dose 100 MLS/HR; Start 08/04/16 at 21:00 Aspirin (Aspirin) 81 mg DAILY PO ; Start 08/05/16 at 09:00; Status Future Hold Atenolol (Tenormin) 25 mg BID PO Last administered on 08/06/16 09:06; Admin Dose 25 MG; Start 08/04/16 at 21:00 Diltiazem HCl (Cardizem) 60 mg Q8 PO Last administered on 08/05/16 22:22; Admin Dose 60 MG; Start 08/04/16 at 22:00 Hydroxyzine HCl (Atarax) 10 mg HS PO Last administered on 08/05/16 21:11; Admin Dose 10 MG; Start 08/05/16 at 21:00 Clobetasol Propionate (Temovate 0.05% Cr) APPLY TO both arms, SPARINGLY BID TOP Last administered on 08/06/16 09:07; Admin Dose 1 APPLIC; Start 08/05/16 at 14: 30 ALAN DICKERSON Aug 06, 2016 12:22
--- NOTE | 2016-08-06 13:31 | PN ---
Date/Time of Note Date/Time of Note DATE: 08/06/16 TIME: 13:30 Assessment/Plan VTE Prophylaxis VTE Prophylaxis Intervention: other Lines/Catheters IV [facility] [place] Assessment/Plan Chief Complaint/Hosp Course IMPRESSION: 1. Acute hypoxemic respiratory failure, chronic obstructive pulmonary disease exacerbation. 2. The patient is atrial fibrillation with rapid ventricular response. 3. Lung infiltrate, pleural effusions. 4. Cardiomegaly. 5. Atherosclerotic heart disease. 6. Dyslipidemia. 7. History of lung carcinoma and radiation. plan [facility] lasix [facility] SOON PER CARDIO Problems: Subjective 24 Hr Interval Summary Respiratory: shortness of breath (BETTER) Cardiovascular: no complaints Exam/Review of Systems Vital Signs Vitals Vital Signs Date Time Temp Pulse Resp B/P Pulse Ox O2 Delivery O2 Flow Rate FiO2 08/06/16 12:00 97.5 95 19 124/74 100 08/06/16 08:47 21 08/06/16 05:40 Nasal Cannula 2.0 Intake and Output 08/05/16 08/05/16 08/06/16 15:00 23:00 07:00 Intake Total 510 ml 150 ml Output Total 100 ml 300 ml Balance 410 ml -150 ml Exam Neck: supple Respiratory: diminished breath sounds Cardiovascular: regular rate and rhythm Gastrointestinal: soft Musculoskeletal: nl extremities to inspection Extremities: normal pulses Results Result Diagram: 08/05/1665608/05/16656 Medications Medications Current Medications Pantoprazole (Protonix Tab) 40 mg DAILY@06 PO Last administered on 08/06/16 05: 39; Admin Dose 40 MG; Start 08/02/16 at 06:00 Albuterol/ Ipratropium (Duoneb) 3 ml PRN PRN HHN SHORTNESS OF BREATH; Start at 17:30 Bupropion HCl (Wellbutrin Sr) 150 mg DAILY PO Last administered on 08/06/16 09: 06; Admin Dose 150 MG; Start 08/02/16 at 09:00 Cilostazol (Pletal) 50 mg BID PO Last administered on 08/06/16 09:06; Admin Dose 50 MG; Start 08/01/16 at 21:00 Polyethylene Glycol (Miralax) 8.5 gm DAILY PO Last administered on 08/06/16 09: 07; Admin Dose 8.5 GM; Start 08/02/16 at 09:00 Guaifenesin/ Codeine Phosphate (Robitussin Ac Liquid Cup) 10 ml BID PRN PO COUGH Last administered on 08/05/16 09:06; Admin Dose 10 ML; Start 08/01/16 at 22:30 Bisacodyl (Dulcolax) 10 mg BID PO Last administered on 08/06/16 09:07; Admin Dose 10 MG; Start 08/03/16 at 21:00 Sodium Biphosphate/ Sodium Phosphate (Fleet Enema) 133 ml DAILY PRN [place] CONSTIPATION; Start 08/03/16 at 17:00 Metoprolol Tartrate (Lopressor) 5 mg Q4H PRN IV HR>110 Hold SBP<100; Start 08/03 at 20:00 Methylprednisolone Sodium Succinate 40 mg 40 mg Q6 IV Last administered on 11:44; Admin Dose 40 MG; Start 08/04/16 at 12:00 Cefepime HCl (Maxipime 1gm/50 ml (Pmx)) 50 ml @ 100 mls/hr Q12 IVPB Last administered on 08/06/16 09:07; Admin Dose 100 MLS/HR; Start 08/04/16 at 21:00 Aspirin (Aspirin) 81 mg DAILY PO ; Start 08/05/16 at 09:00; Status Future Hold Diltiazem HCl (Cardizem) 60 mg Q8 PO Last administered on 08/06/16 13:06; Admin Dose 60 MG; Start 08/04/16 at 22:00 Hydroxyzine HCl (Atarax) 10 mg HS PO Last administered on 08/05/16 21:11; Admin Dose 10 MG; Start 08/05/16 at 21:00 Clobetasol Propionate (Temovate 0.05% Cr) APPLY TO both arms, SPARINGLY BID TOP Last administered on 08/06/16 09:07; Admin Dose 1 APPLIC; Start 08/05/16 at 14: 30 Apixaban (Eliquis) 2.5 mg BID PO ; Start 08/06/16 at 21:00 Atenolol (Tenormin) 50 mg BID PO ; Start 08/06/16 at 21:00 Acetaminophen/ Hydrocodone Bitart ([place] (5/325)) 1 tab Q6H PRN PO PAIN LEVEL 6 -10; Start 08/06/16 at 13:30; Status KARLEY MATTHEW MD Aug 06, 2016 13:31
--- NOTE | 2016-08-06 15:27 | CONS ---
Date/Time of Note Date/Time of Note DATE: 08/06/16 TIME: 15:26 Assessment/Plan Assessment/Plan Chief Complaint/Hosp Course SUBJECTIVE: No acute changes. The patient is alert, looks comfortable. No fevers. MICROBIOLOGY: Blood cultures remain negative. Sputum, preliminary negative culture. ANTIMICROBIALS: Cefepime PHYSICAL EXAMINATION: GENERAL: This is a fragile, well-developed elderly man, who is awake, in no distress. HEENT: Head atraumatic, normocephalic. Sclerae anicteric. Buccal mucosa dry. NECK: Supple. CHEST: Chest rise is symmetrical. Breath sounds diminished to the left. HEART: S1, S2. ABDOMEN: Soft, bowel tones present. EXTREMITIES: No cyanosis. ASSESSMENT: 1. Acute respiratory failure secondary to chronic obstructive pulmonary disease exacerbation and left pleural effusion==>s/p thoracentesis 2. Chronic kidney disease. 3. Coronary artery disease. 4. History of lung cancer, status post radiation. 5. Atrial fibrillation and cardiomyopathy. PLAN: The patient remains stable, followed by cardiology and the pulmonary team. Continue the present care and antibiotics. Await for final cultures. DW staff Problems: Consultation Date/Type/Reason Admit Date/Time Aug 03, 2016 at 16:58 Initial Consult Date 08/03/16 Type of Consultation: ID Referring Provider: KARLEY DEAN MD Exam/Review of Systems Vital Signs Vitals Vital Signs Date Time Temp Pulse Resp B/P Pulse Ox O2 Delivery O2 Flow Rate FiO2 08/06/16 12:00 97.5 95 19 124/74 100 08/06/16 08:47 21 08/06/16 05:40 Nasal Cannula 2.0 Intake and Output 08/05/16 08/05/16 08/06/16 14:59 22:59 06:59 Intake Total 510 ml 150 ml Output Total 100 ml 300 ml Balance 410 ml -150 ml Results Result Diagram: 08/05/1657 08/05/16656 Medications Medications Current Medications Pantoprazole (Protonix Tab) 40 mg DAILY@06 PO Last administered on 08/06/16t 05: 39; Admin Dose 40 MG; Start 08/02/16 at 06:00 Albuterol/ Ipratropium (Duoneb) 3 ml PRN PRN HHN SHORTNESS OF BREATH; Start at 17:30 Bupropion HCl (Wellbutrin Sr) 150 mg DAILY PO Last administered on 08/06/16 09: 06; Admin Dose 150 MG; Start 08/02/16 at 09:00 Cilostazol (Pletal) 50 mg BID PO Last administered on 08/06/16 09:06; Admin Dose 50 MG; Start 08/01/16 at 21:00 Polyethylene Glycol (Miralax) 8.5 gm DAILY PO Last administered on 08/06/16 09: 07; Admin Dose 8.5 GM; Start 08/02/16 at 09:00 Guaifenesin/ Codeine Phosphate (Robitussin Ac Liquid Cup) 10 ml BID PRN PO COUGH Last administered on 08/05/16 09:06; Admin Dose 10 ML; Start 08/01/16 at 22:30 Bisacodyl (Dulcolax) 10 mg BID PO Last administered on 08/06/16 09:07; Admin Dose 10 MG; Start 08/03/16 at 21:00 Sodium Biphosphate/ Sodium Phosphate (Fleet Enema) 133 ml DAILY PRN [place] CONSTIPATION; Start 08/03/16 at 17:00 Metoprolol Tartrate (Lopressor) 5 mg Q4H PRN IV HR>110 Hold SBP<100; Start 08/03 at 20:00 Methylprednisolone Sodium Succinate 40 mg 40 mg Q6 IV Last administered on 11:44; Admin Dose 40 MG; Start 08/04/16 at 12:00 Cefepime HCl (Maxipime 1gm/50 ml (Pmx)) 50 ml @ 100 mls/hr Q12 IVPB Last administered on 08/06/16 09:07; Admin Dose 100 MLS/HR; Start 08/04/16 at 21:00 Aspirin (Aspirin) 81 mg DAILY PO ; Start 08/05/16 at 09:00; Status Future Hold Diltiazem HCl (Cardizem) 60 mg Q8 PO Last administered on 08/06/16 13:06; Admin Dose 60 MG; Start 08/04/16 at 22:00 Hydroxyzine HCl (Atarax) 10 mg HS PO Last administered on 08/05/16 21:11; Admin Dose 10 MG; Start 08/05/16 at 21:00 Clobetasol Propionate (Temovate 0.05% Cr) APPLY TO both arms, SPARINGLY BID TOP Last administered on 08/06/16t 09:07; Admin Dose 1 APPLIC; Start 08/05/16 at 14: 30 Apixaban (Eliquis) 2.5 mg BID PO ; Start 08/06/16 at 21:00 Atenolol (Tenormin) 50 mg BID PO ; Start 08/06/16 at 21:00 Acetaminophen/ Hydrocodone Bitart ([place] (5/325)) 1 tab Q6H PRN PO PAIN LEVEL 6 -10; Start 08/06/16 at 13:30 SUZANNE DANIELS NP Aug 06, 2016 15:27
[2016-08-06] MEDS ORDERED: ATENOLOL 50 MG TAB PO SCH (21:00)
[2016-08-06] MEDS: ATENOLOL 50 MG TAB PO SCH (21:00)
[2016-08-06] MEDS: HYDROCODONE/APAP (5/325) TAB PO PRN (21:24)
[2016-08-06] MEDS: APIXABAN 5 MG TABLET PO SCH (21:24)
[2016-08-06] MEDS: hydrOXYzine HCL 10 MG TAB PO SCH (21:29)
[2016-08-06] MEDS: GUAIFENESIN/CODEINE 5ML CUP PO PRN (21:37)
[2016-08-07] VITALS (12 sets, daily range): BP systolic 112–167; BP diastolic 76–87; PULSE 109–134; RESP 17–20
[2016-08-07] MEDS: METHYLPREDNISOLONE 40 MG INJ IV SCH ×4 (00:09→18:04)
[2016-08-07] MEDS: ALBUTEROL/IPRATROPIUM (NEB) 3 ML AMP HHN SCH ×6 (00:53→20:06)
[2016-08-07] MEDS: PANTOPRAZOLE (EC) 40 MG TAB PO SCH (05:46)
[2016-08-07] MEDS: DILTIAZEM 60 MG TAB PO SCH ×3 (05:46→22:35)
[2016-08-07] MEDS: CILOSTAZOL 100 MG TAB PO SCH ×2 (07:56→21:04)
[2016-08-07] MEDS: BUPROPION (SR) 150 MG TAB PO SCH (07:56)
[2016-08-07] MEDS: POLYETHYLENE GLYCOL 17 GM PACKET PO SCH (07:56)
[2016-08-07] MEDS: APIXABAN 5 MG TABLET PO SCH ×2 (07:57→21:05)
[2016-08-07] MEDS: ATENOLOL 50 MG TAB PO SCH ×2 (07:57→21:06)
[2016-08-07] MEDS: CEFEPIME 1GM/50 ML (PMX) 50 ML IVPB SCH ×2 (07:58→21:02)
[2016-08-07] MEDS: BISACODYL (EC) 5 MG TAB PO SCH ×2 (07:58→21:04)
[2016-08-07] MEDS: CLOBETASOL 0.05% 15 GM CR TOP SCH ×2 (07:59→21:03)
--- NOTE | 2016-08-07 13:57 | CONS ---
Date/Time of Note Date/Time of Note DATE: 08/07/16 TIME: 13:56 Assessment/Plan Assessment/Plan Chief Complaint/Hosp Course SUBJECTIVE: No acute changes. The patient is alert, denies pain, looks comfortable. No fevers. ANTIMICROBIALS: Cefepime PHYSICAL EXAMINATION: GENERAL: This is a fragile, well-developed elderly man, who is awake, in no distress. HEENT: Head atraumatic, normocephalic. Sclerae anicteric. Buccal mucosa dry. NECK: Supple. CHEST: Chest rise is symmetrical. Breath sounds diminished to the left. HEART: S1, S2. ABDOMEN: Soft, bowel tones present. EXTREMITIES: No cyanosis. ASSESSMENT: 1. Acute respiratory failure secondary to chronic obstructive pulmonary disease exacerbation and left pleural effusion==>s/p thoracentesis 2. Chronic kidney disease. 3. Coronary artery disease. 4. History of lung cancer, status post radiation. 5. Atrial fibrillation and cardiomyopathy. PLAN: The patient remains stable, followed by cardiology and the pulmonary team. Continue the present care and antibiotics. Await for final cultures. DW staff Problems: Consultation Date/Type/Reason Admit Date/Time Aug 03, 2016 at 16:58 Initial Consult Date 08/03/16 Type of Consultation: ID Referring Provider: KARLEY DEAN MD Exam/Review of Systems Vital Signs Vitals Vital Signs Date Time Temp Pulse Resp B/P Pulse Ox O2 Delivery O2 Flow Rate FiO2 08/07/16 13:41 92 18 99 21 08/07/16 11:42 98.1 120/80 08/06/16 20:00 Nasal Cannula 2.0 Intake and Output 08/06/16 08/06/16 08/07/16 15:00 23:00 07:00 Intake Total 1050 ml 400 ml Output Total 500 ml Balance 1050 ml -100 ml Results Result Diagram: 08/05/16 0657 08/05/16 0657 Medications Medications Current Medications Pantoprazole (Protonix Tab) 40 mg DAILY@06 PO Last administered on 08/07/16 05: 46; Admin Dose 40 MG; Start 08/02/16 at 06:00 Albuterol/ Ipratropium (Duoneb) 3 ml PRN PRN HHN SHORTNESS OF BREATH; Start at 17:30 Bupropion HCl (Wellbutrin Sr) 150 mg DAILY PO Last administered on 08/07/16 07: 56; Admin Dose 150 MG; Start 08/02/16 at 09:00 Cilostazol (Pletal) 50 mg BID PO Last administered on 08/07/16 07:56; Admin Dose 50 MG; Start 08/01/16 at 21:00 Polyethylene Glycol (Miralax) 8.5 gm DAILY PO Last administered on 08/07/16 07: 56; Admin Dose 8.5 GM; Start 08/02/16 at 09:00 Guaifenesin/ Codeine Phosphate (Robitussin Ac Liquid Cup) 10 ml BID PRN PO COUGH Last administered on 08/06/16 21:37; Admin Dose 10 ML; Start 08/01/16 at 22:30 Bisacodyl (Dulcolax) 10 mg BID PO Last administered on 08/07/16 07:58; Admin Dose 10 MG; Start 08/03/16 at 21:00 Sodium Biphosphate/ Sodium Phosphate (Fleet Enema) 133 ml DAILY PRN [place] CONSTIPATION; Start 08/03/16 at 17:00 Metoprolol Tartrate (Lopressor) 5 mg Q4H PRN IV HR>110 Hold SBP<100; Start 08/03 at 20:00 Methylprednisolone Sodium Succinate 40 mg 40 mg Q6 IV Last administered on 12:00; Admin Dose 40 MG; Start 08/04/16 at 12:00 Cefepime HCl (Maxipime 1gm/50 ml (Pmx)) 50 ml @ 100 mls/hr Q12 IVPB Last administered on 08/07/16 07:58; Admin Dose 100 MLS/HR; Start 08/04/16 at 21:00 Aspirin (Aspirin) 81 mg DAILY PO ; Start 08/05/16 at 09:00; Status Future Hold Diltiazem HCl (Cardizem) 60 mg Q8 PO Last administered on 08/07/16 05:46; Admin Dose 60 MG; Start 08/04/16 at 22:00 Hydroxyzine HCl (Atarax) 10 mg HS PO Last administered on 08/06/16 21:29; Admin Dose 10 MG; Start 08/05/16 at 21:00 Clobetasol Propionate (Temovate 0.05% Cr) APPLY TO both arms, SPARINGLY BID TOP Last administered on 08/07/16 07:59; Admin Dose 1 APPLIC; Start 08/05/16 at 14: 30 Apixaban (Eliquis) 2.5 mg BID PO Last administered on 08/07/16 07:57; Admin Dose 2.5 MG; Start 08/06/16 at 21:00 Atenolol (Tenormin) 50 mg BID PO Last administered on 08/07/16 07:57; Admin Dose 50 MG; Start 08/06/16 at 21:00 Acetaminophen/ Hydrocodone Bitart ([place] (5/325)) 1 tab Q6H PRN PO PAIN LEVEL 6 -10 Last administered on 08/06/16 21:24; Admin Dose 1 TAB; Start 08/06/16 at 13: 30 SUZANNE DANIELS NP Aug 07, 2016 13:57
--- NOTE | 2016-08-07 15:29 | CONS ---
Date/Time of Note Date/Time of Note DATE: 08/07/16 TIME: 15:28 Consult Date/Type/Reason Admit Date/Time Aug 03, 2016 at 16:58 Initial Consult Date 08/03/16 Type of Consultation: Pulmonary Ordering Provider: KARLEY DEAN MD Subjective Patient comfortable this morning no new events. Denies any shortness of breath. Objective Vital Signs Date Time Temp Pulse Resp B/P Pulse Ox O2 Delivery O2 Flow Rate FiO2 08/07/16 13:41 92 18 99 21 08/07/16 11:42 98.1 120/80 08/06/16 20:00 Nasal Cannula 2.0 Intake and Output 08/06/16 08/06/16 08/07/16 15:00 23:00 07:00 Intake Total 1050 ml 400 ml Output Total 500 ml Balance 1050 ml -100 ml Exam GENERAL: VITAL SIGNS: per chart NECK: Supple. No JVD or lymphadenopathy. CARDIAC EXAM: S1, S2. No added sounds or murmurs. CHEST: clear bilaterally, No added sounds, rales or wheezes ABDOMEN: Soft, nontender. No guarding or rebound. EXTREMITIES: No cyanosis, clubbing or edema. NEUROLOGIC: Generalized weakness. No focal deficits. Results/Medications Result Diagram: 08/05/1665608/05/16656 Medications Current Medications Pantoprazole (Protonix Tab) 40 mg DAILY@06 PO Last administered on 08/07/16 05: 46; Admin Dose 40 MG; Start 08/02/16 at 06:00 Albuterol/ Ipratropium (Duoneb) 3 ml PRN PRN HHN SHORTNESS OF BREATH; Start at 17:30 Bupropion HCl (Wellbutrin Sr) 150 mg DAILY PO Last administered on 08/07/16 07: 56; Admin Dose 150 MG; Start 08/02/16 at 09:00 Cilostazol (Pletal) 50 mg BID PO Last administered on 08/07/16 07:56; Admin Dose 50 MG; Start 08/01/16 at 21:00 Polyethylene Glycol (Miralax) 8.5 gm DAILY PO Last administered on 08/07/16 07: 56; Admin Dose 8.5 GM; Start 08/02/16 at 09:00 Guaifenesin/ Codeine Phosphate (Robitussin Ac Liquid Cup) 10 ml BID PRN PO COUGH Last administered on 08/06/16 21:37; Admin Dose 10 ML; Start 08/01/16 at 22:30 Bisacodyl (Dulcolax) 10 mg BID PO Last administered on 08/07/16 07:58; Admin Dose 10 MG; Start 08/03/16 at 21:00 Sodium Biphosphate/ Sodium Phosphate (Fleet Enema) 133 ml DAILY PRN [place] CONSTIPATION; Start 08/03/16 at 17:00 Metoprolol Tartrate (Lopressor) 5 mg Q4H PRN IV HR>110 Hold SBP<100; Start 08/03 at 20:00 Methylprednisolone Sodium Succinate 40 mg 40 mg Q6 IV Last administered on 12:00; Admin Dose 40 MG; Start 08/04/16 at 12:00 Cefepime HCl (Maxipime 1gm/50 ml (Pmx)) 50 ml @ 100 mls/hr Q12 IVPB Last administered on 08/07/16 07:58; Admin Dose 100 MLS/HR; Start 08/04/16 at 21:00 Aspirin (Aspirin) 81 mg DAILY PO ; Start 08/05/16 at 09:00; Status Future Hold Diltiazem HCl (Cardizem) 60 mg Q8 PO Last administered on 08/07/16 05:46; Admin Dose 60 MG; Start 08/04/16 at 22:00 Hydroxyzine HCl (Atarax) 10 mg HS PO Last administered on 08/06/16 21:29; Admin Dose 10 MG; Start 08/05/16 at 21:00 Clobetasol Propionate (Temovate 0.05% Cr) APPLY TO both arms, SPARINGLY BID TOP Last administered on 08/07/16 07:59; Admin Dose 1 APPLIC; Start 08/05/16 at 14: 30 Apixaban (Eliquis) 2.5 mg BID PO Last administered on 08/07/16 07:57; Admin Dose 2.5 MG; Start 08/06/16 at 21:00 Atenolol (Tenormin) 50 mg BID PO Last administered on 08/07/16 07:57; Admin Dose 50 MG; Start 08/06/16 at 21:00 Acetaminophen/ Hydrocodone Bitart ([place] (5/325)) 1 tab Q6H PRN PO PAIN LEVEL 6 -10 Last administered on 08/06/16t 21:24; Admin Dose 1 TAB; Start 08/06/16 at 13: 30 Assessment/Plan Chief Complaint/Hosp Course Assessment 1. Status post hypoxemic respiratory failure with left pleural effusion. Status post thoracentesis. 2. History of COPD 3. History of lung cancer status post chemo and radiation Plan 1. Continue bronchodilators 2. Discharge planning 3. Outpatient follow-up with cytology. Problems: AISHWARYA PICKARD MD, [facility] Aug 07, 2016 15:29
[2016-08-07] MEDS: HYDROCODONE/APAP (5/325) TAB PO PRN (18:09)
--- NOTE | 2016-08-07 18:52 | CONS ---
Date/Time of Note Date/Time of Note DATE: 08/07/16 TIME: 18:47 Assessment/Plan Assessment/Plan Chief Complaint/Hosp Course IMP: 1.AF with RVR-mainly rate controlled when received all medication doses 2.CHF-systolic EF last 35-40 3.HTN-HOTN now and not tolerating medications for rate control/? overdiuresis- currently improved s/p IVF bolus 4.Possible scabies s/p teatment 5.COPD 6. H/O lung ca 7.PNA and effusion L sided 8.ARF-ongoing Recc: -Tele -Continue atenolol/Dilt as tolerated -Continue eliquis -Continue asa -Continue abx's and f/u cx data -Will give IVP dose of digoxin to assure good HR control since missed dose of dilt Problems: Consultation Date/Type/Reason Admit Date/Time Aug 03, 2016 at 16:58 Initial Consult Date 08/01/2016 Type of Consultation: Cardiology Reason for Consultation AF with RVR Referring Provider: KARLEY DEAN MD Exam/Review of Systems Vital Signs Vitals Vital Signs Date Time Temp Pulse Resp B/P Pulse Ox O2 Delivery O2 Flow Rate FiO2 08/07/16 17:48 112 18 98 21 08/07/16 16:05 97.4 123/87 08/06/16 20:00 Nasal Cannula 2.0 Intake and Output 08/06/16 08/06/16 08/07/16 15:00 23:00 07:00 Intake Total 1050 ml 400 ml Output Total 500 ml Balance 1050 ml -100 ml Exam Review of Systems: CONSTITUTIONAL: No fevers, chills. PULMONARY: No sob CARDIOVASCULAR: No chest pain/palpitations GASTROINTESTINAL: No nausea/vomiting. GENITOURINARY: No hematuria/dysuria. MUSCULOSKELETAL: No myagias/arthalgias. PSYCHIATRIC: The patient denies depression. NEUROLOGIC: No weakness Constitutional: alert Psych: no complaints Head: normocephalic ENMT: mucosa pink and moist Neck: jvd (9 cm water), supple Respiratory: diminished breath sounds (at bases/B) Cardiovascular: irregular rhythm (tachycardic) Gastrointestinal: non-tender, soft Musculoskeletal: muscle tone (normal) Extremities: edema (none) 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: other (No focal deficits) Results Result Diagram: 08/05/16 0657 08/05/16 0657 Medications Medications Current Medications Pantoprazole (Protonix Tab) 40 mg DAILY@06 PO Last administered on 08/07/16 05: 46; Admin Dose 40 MG; Start 08/02/16 at 06:00 Albuterol/ Ipratropium (Duoneb) 3 ml PRN PRN HHN SHORTNESS OF BREATH; Start at 17:30 Bupropion HCl (Wellbutrin Sr) 150 mg DAILY PO Last administered on 08/07/16 07: 56; Admin Dose 150 MG; Start 08/02/16 at 09:00 Cilostazol (Pletal) 50 mg BID PO Last administered on 08/07/16 07:56; Admin Dose 50 MG; Start 08/01/16 at 21:00 Polyethylene Glycol (Miralax) 8.5 gm DAILY PO Last administered on 08/07/16 07: 56; Admin Dose 8.5 GM; Start 08/02/16 at 09:00 Guaifenesin/ Codeine Phosphate (Robitussin Ac Liquid Cup) 10 ml BID PRN PO COUGH Last administered on 08/06/16 21:37; Admin Dose 10 ML; Start 08/01/16 at 22:30 Bisacodyl (Dulcolax) 10 mg BID PO Last administered on 08/07/16 07:58; Admin Dose 10 MG; Start 08/03/16 at 21:00 Sodium Biphosphate/ Sodium Phosphate (Fleet Enema) 133 ml DAILY PRN [place] CONSTIPATION; Start 08/03/16 at 17:00 Metoprolol Tartrate (Lopressor) 5 mg Q4H PRN IV HR>110 Hold SBP<100 Last administered on 08/07/16 18:18; Admin Dose 5 MG; Start 08/03/16 at 20:00 Methylprednisolone Sodium Succinate 40 mg 40 mg Q6 IV Last administered on 18:04; Admin Dose 40 MG; Start 08/04/16 at 12:00 Cefepime HCl (Maxipime 1gm/50 ml (Pmx)) 50 ml @ 100 mls/hr Q12 IVPB Last administered on 08/07/16 07:58; Admin Dose 100 MLS/HR; Start 08/04/16 at 21:00 Aspirin (Aspirin) 81 mg DAILY PO ; Start 08/05/16 at 09:00; Status Future Hold Diltiazem HCl (Cardizem) 60 mg Q8 PO Last administered on 08/07/16 05:46; Admin Dose 60 MG; Start 08/04/16 at 22:00 Hydroxyzine HCl (Atarax) 10 mg HS PO Last administered on 08/06/16 21:29; Admin Dose 10 MG; Start 08/05/16 at 21:00 Clobetasol Propionate (Temovate 0.05% Cr) APPLY TO both arms, SPARINGLY BID TOP Last administered on 08/07/16 07:59; Admin Dose 1 APPLIC; Start 08/05/16 at 14: 30 Apixaban (Eliquis) 2.5 mg BID PO Last administered on 08/07/16 07:57; Admin Dose 2.5 MG; Start 08/06/16 at 21:00 Atenolol (Tenormin) 50 mg BID PO Last administered on 08/07/16 07:57; Admin Dose 50 MG; Start 08/06/16 at 21:00 Acetaminophen/ Hydrocodone Bitart ([place] (5/325)) 1 tab Q6H PRN PO PAIN LEVEL 6 -10 Last administered on 08/07/16 18:09; Admin Dose 1 TAB; Start 08/06/16 at 13: 30 CECE LOPEZ Aug 07, 2016 18:52
[2016-08-07] MEDS ORDERED: DIGOXIN 500 MCG INJ IV ONE (19:00)
[2016-08-07] MEDS ORDERED: DILTIAZEM 60 MG TAB PO ONE (19:00)
--- NOTE | 2016-08-07 19:19 | PN ---
Date/Time of Note Date/Time of Note DATE: 08/07/16 TIME: 19:18 Assessment/Plan VTE Prophylaxis VTE Prophylaxis Intervention: other Lines/Catheters IV [facility]from [facility] Assessment/Plan Chief Complaint/Hosp Course IMPRESSION: 1. Acute hypoxemic respiratory failure, chronic obstructive pulmonary disease exacerbation. 2. The patient is atrial fibrillation with rapid ventricular response. 3. Lung infiltrate, pleural effusions. 4. Cardiomegaly. 5. Atherosclerotic heart disease. 6. Dyslipidemia. 7. History of lung carcinoma and radiation. plan hhn lasix SNF SOON PER CARDIO Problems: Subjective 24 Hr Interval Summary Respiratory: shortness of breath (better) Gastrointestinal: no complaints Exam/Review of Systems Vital Signs Vitals Vital Signs Date Time Temp Pulse Resp B/P Pulse Ox O2 Delivery O2 Flow Rate FiO2 08/07/16 17:48 112 18 98 21 08/07/16 16:05 97.4 123/87 08/06/16 20:00 Nasal Cannula 2.0 Intake and Output 08/06/16 08/06/16 08/07/16 15:00 23:00 07:00 Intake Total 1050 ml 400 ml Output Total 500 ml Balance 1050 ml -100 ml Exam Neck: supple Respiratory: diminished breath sounds Cardiovascular: regular rate and rhythm Gastrointestinal: soft Results Result Diagram: 08/05/16 0657 08/05/16 0657 Medications Medications Current Medications Pantoprazole (Protonix Tab) 40 mg DAILY@06 PO Last administered on 08/07/16 05: 46; Admin Dose 40 MG; Start 08/02/16 at 06:00 Albuterol/ Ipratropium (Duoneb) 3 ml PRN PRN HHN SHORTNESS OF BREATH; Start at 17:30 Bupropion HCl (Wellbutrin Sr) 150 mg DAILY PO Last administered on 08/07/16 07: 56; Admin Dose 150 MG; Start 08/02/16 at 09:00 Cilostazol (Pletal) 50 mg BID PO Last administered on 08/07/16 07:56; Admin Dose 50 MG; Start 08/01/16 at 21:00 Polyethylene Glycol (Miralax) 8.5 gm DAILY PO Last administered on 08/07/16 07: 56; Admin Dose 8.5 GM; Start 08/02/16 at 09:00 Guaifenesin/ Codeine Phosphate (Robitussin Ac Liquid Cup) 10 ml BID PRN PO COUGH Last administered on 08/06/16 21:37; Admin Dose 10 ML; Start 08/01/16 at 22:30 Bisacodyl (Dulcolax) 10 mg BID PO Last administered on 08/07/16 07:58; Admin Dose 10 MG; Start 08/03/16 at 21:00 Sodium Biphosphate/ Sodium Phosphate (Fleet Enema) 133 ml DAILY PRN [place]STIPATION; Start 08/03/16 at 17:00 Metoprolol Tartrate (Lopressor) 5 mg Q4H PRN IV HR>110 Hold SBP<100 Last administered on 08/07/16 18:18; Admin Dose 5 MG; Start 08/03/16 at 20:00 Methylprednisolone Sodium Succinate 40 mg 40 mg Q6 IV Last administered on 18:04; Admin Dose 40 MG; Start 08/04/16 at 12:00 Cefepime HCl (Maxipime 1gm/50 ml (Pmx)) 50 ml @ 100 mls/hr Q12 IVPB Last administered on 08/07/16 07:58; Admin Dose 100 MLS/HR; Start 08/04/16 at 21:00 Aspirin (Aspirin) 81 mg DAILY PO ; Start 08/05/16 at 09:00; Status Future Hold Diltiazem HCl (Cardizem) 60 mg Q8 PO Last administered on 08/07/16 05:46; Admin Dose 60 MG; Start 08/04/16 at 22:00 Hydroxyzine HCl (Atarax) 10 mg HS PO Last administered on 08/06/16 21:29; Admin Dose 10 MG; Start 08/05/16 at 21:00 Clobetasol Propionate (Temovate 0.05% Cr) APPLY TO both arms, SPARINGLY BID TOP Last administered on 08/07/16 07:59; Admin Dose 1 APPLIC; Start 08/05/16 at 14: 30 Apixaban (Eliquis) 2.5 mg BID PO Last administered on 08/07/16 07:57; Admin Dose 2.5 MG; Start 08/06/16 at 21:00 Atenolol (Tenormin) 50 mg BID PO Last administered on 08/07/16 07:57; Admin Dose 50 MG; Start 08/06/16 at 21:00 Acetaminophen/ Hydrocodone Bitart ([place] ()) 1 tab Q6H PRN PO PAIN LEVEL 6 -10 Last administered on 08/07/16 18:09; Admin Dose 1 TAB; Start 08/06/16 at 13: 30 KARLEY DEAN MD Aug 07, 2016 19:19
[2016-08-07] MEDS: hydrOXYzine HCL 10 MG TAB PO SCH (21:04)
[2016-08-08] VITALS (9 sets, daily range): BP systolic 113–152; BP diastolic 59–67; PULSE 73–118; RESP 16–20
[2016-08-08] MEDS: METHYLPREDNISOLONE 40 MG INJ IV SCH ×3 (00:34→12:34)
[2016-08-08] MEDS: HYDROCODONE/APAP (5/325) TAB PO PRN (00:35)
[2016-08-08] MEDS: ALBUTEROL/IPRATROPIUM (NEB) 3 ML AMP HHN SCH ×2 (00:57→05:39)
[2016-08-08] MEDS ORDERED: DIGOXIN 500 MCG INJ IV ONE (01:00)
[2016-08-08] MEDS: PANTOPRAZOLE (EC) 40 MG TAB PO SCH (05:33)
[2016-08-08] MEDS: DILTIAZEM 60 MG TAB PO SCH ×2 (05:41→13:30)
[2016-08-08] MEDS: BISACODYL (EC) 5 MG TAB PO SCH (09:06)
[2016-08-08] MEDS: APIXABAN 5 MG TABLET PO SCH (09:07)
[2016-08-08] MEDS: POLYETHYLENE GLYCOL 17 GM PACKET PO SCH (09:07)
[2016-08-08] MEDS: ATENOLOL 50 MG TAB PO SCH (09:08)
[2016-08-08] MEDS: BUPROPION (SR) 150 MG TAB PO SCH (09:08)
[2016-08-08] MEDS: CLOBETASOL 0.05% 15 GM CR TOP SCH (09:09)
[2016-08-08] MEDS: CILOSTAZOL 100 MG TAB PO SCH (09:09)
[2016-08-08] MEDS: CEFEPIME 1GM/50 ML (PMX) 50 ML IVPB SCH (09:13)
--- NOTE | 2016-08-08 09:16 | CONS ---
Date/Time of Note Date/Time of Note DATE: 08/08/16 TIME: 09:15 Assessment/Plan Assessment/Plan Additional Assessment/Plan 1.AF with RVR - rate better controlled at 90s 2.CHF-systolic EF last 35-40 - con't to keep euvolemic, no indication g=for ICD EF > 35% 3.HTN-HOTN now and not tolerating medications for rate control/? overdiuresis- currently improved s/p IVF bolus 4.Possible scabies s/p treatment 5.COPD - on Rx 6. H/O lung ca 7.PNA and effusion L sided - on anti-bx, will monitor 8.ARF-ongoing, avoid nephrotoxic meds 9. Secondary hypercoag state - added Eliquis, tolerating now Consultation Date/Type/Reason Admit Date/Time Aug 03, 2016 at 16:58 Initial Consult Date 08/03/16 Type of Consultation: Cardiology Referring Provider: KARLEY DEAN MD 24 HR Interval Summary Free Text/Dictation NO acute events - BP in good range - HR well controlled in a. fib ROS: No fever, no chills, no nausea, no vomiting, no diarrhea/constipation No recent weight changes No chest pain, no PND, no orthopnea No dizziness, blurred vision No thirst, no heat or cold intolerance Exam/Review of Systems Vital Signs Vitals Vital Signs Date Time Temp Pulse Resp B/P Pulse Ox O2 Delivery O2 Flow Rate FiO2 08/08/16 08:53 81 08/08/16 07:52 Nasal Cannula 2.0 08/08/16 07:16 97.9 20 113/61 94 08/08/16 05:48 21 Intake and Output 08/07/16 08/07/16 08/08/16 15:00 23:00 07:00 Intake Total 50 ml 850 ml 480 ml Output Total 1200 ml 400 ml Balance 50 ml -350 ml 80 ml Exam General: WN/WD/NAD, AOx 3 HEENT: Unicetric/atraumatic/EOMI (follow commands) NECK: JVD elevated, no thyromegaly Lymph: no lymphadenopathy HEART: IR IRregular with no S3, II/ systolic murmur at apex LUNGS: Coarse sounds ABD: soft, NT, ND, +BS : Intact Neuro: non focal SKIN: chronic changes EXT: trace edema Results Result Diagram: 08/05/16 0657 08/05/16 0657 Medications Medications Current Medications Pantoprazole (Protonix Tab) 40 mg DAILY@06 PO Last administered on 08/08/16 05: 33; Admin Dose 40 MG; Start 08/02/16 at 06:00 Albuterol/ Ipratropium (Duoneb) 3 ml PRN PRN HHN SHORTNESS OF BREATH; Start at 17:30 Bupropion HCl (Wellbutrin Sr) 150 mg DAILY PO Last administered on 08/07/16 07: 56; Admin Dose 150 MG; Start 08/02/16 at 09:00 Cilostazol (Pletal) 50 mg BID PO Last administered on 08/07/16 21:04; Admin Dose 50 MG; Start 08/01/16 at 21:00 Polyethylene Glycol (Miralax) 8.5 gm DAILY PO Last administered on 08/07/16 07: 56; Admin Dose 8.5 GM; Start 08/02/16 at 09:00 Guaifenesin/ Codeine Phosphate (Robitussin Ac Liquid Cup) 10 ml BID PRN PO COUGH Last administered on 08/06/16 21:37; Admin Dose 10 ML; Start 08/01/16 at 22:30 Bisacodyl (Dulcolax) 10 mg BID PO Last administered on 08/07/16 21:04; Admin Dose 10 MG; Start 08/03/16 at 21:00 Sodium Biphosphate/ Sodium Phosphate (Fleet Enema) 133 ml DAILY PRN [place] CONSTIPATION; Start 08/03/16 at 17:00 Metoprolol Tartrate (Lopressor) 5 mg Q4H PRN IV HR>110 Hold SBP<100 Last administered on 08/07/16 18:18; Admin Dose 5 MG; Start 08/03/16 at 20:00 Methylprednisolone Sodium Succinate 40 mg 40 mg Q6 IV Last administered on 05:33; Admin Dose 40 MG; Start 08/04/16 at 12:00 Cefepime HCl (Maxipime 1gm/50 ml (Pmx)) 50 ml @ 100 mls/hr Q12 IVPB Last administered on 08/07/16 21:02; Admin Dose 100 MLS/HR; Start 08/04/16 at 21:00 Aspirin (Aspirin) 81 mg DAILY PO ; Start 08/05/16 at 09:00; Status Future Hold Diltiazem HCl (Cardizem) 60 mg Q8 PO Last administered on 08/08/16 05:41; Admin Dose 60 MG; Start 08/04/16 at 22:00 Hydroxyzine HCl (Atarax) 10 mg HS PO Last administered on 08/07/16 21:04; Admin Dose 10 MG; Start 08/05/16 at 21:00 Clobetasol Propionate (Temovate 0.05% Cr) APPLY TO both arms, SPARINGLY BID TOP Last administered on 08/07/16 21:03; Admin Dose 1 APPLIC; Start 08/05/16 at 14: 30 Apixaban (Eliquis) 2.5 mg BID PO Last administered on 08/07/16 21:05; Admin Dose 2.5 MG; Start 08/06/16 at 21:00 Atenolol (Tenormin) 50 mg BID PO Last administered on 08/07/16 21:06; Admin Dose 50 MG; Start 08/06/16 at 21:00 Acetaminophen/ Hydrocodone Bitart ([place] (5/325)) 1 tab Q6H PRN PO PAIN LEVEL 6 -10 Last administered on 08/08/16 00:35; Admin Dose 1 TAB; Start 08/06/16 at 13: 30 EMILY SANTAMARIA MD Aug 08, 2016 09:16
--- NOTE | 2016-08-08 12:46 | CONS ---
Date/Time of Note Date/Time of Note DATE: 08/08/16 TIME: 12:45 Consult Date/Type/Reason Admit Date/Time Aug 03, 2016 at 16:58 Initial Consult Date 08/03/16 Type of Consultation: Pulmonary Ordering Provider: KARLEY DEAN MD Subjective Patient stable this morning awake alert oriented wanted to go home Objective Vital Signs Date Time Temp Pulse Resp B/P Pulse Ox O2 Delivery O2 Flow Rate FiO2 08/08/16 12:34 73 08/08/16 11:28 97.8 16 136/59 99 08/08/16 07:52 Nasal Cannula 2.0 08/08/16 05:48 21 Intake and Output 08/07/16 08/07/16 08/08/16 14:59 22:59 06:59 Intake Total 50 ml 850 ml 480 ml Output Total 1200 ml 400 ml Balance 50 ml -350 ml 80 ml Exam GENERAL: Well-nourished well-developed gentleman comfortable at rest distress VITAL SIGNS: per chart NECK: Supple. No JVD or lymphadenopathy. CARDIAC EXAM: S1, S2. No added sounds or murmurs. Rate controlled atrial fibrillation CHEST: clear bilaterally, No added sounds, rales or wheezes ABDOMEN: Soft, nontender. No guarding or rebound. EXTREMITIES: No cyanosis, clubbing or edema. NEUROLOGIC: Generalized weakness. No focal deficits. Results/Medications Result Diagram: 08/05/1657 08/05/16 0657 Medications Current Medications Pantoprazole (Protonix Tab) 40 mg DAILY@06 PO Last administered on 08/08/16 05: 33; Admin Dose 40 MG; Start 08/02/16 at 06:00 Albuterol/ Ipratropium (Duoneb) 3 ml PRN PRN HHN SHORTNESS OF BREATH; Start at 17:30 Bupropion HCl (Wellbutrin Sr) 150 mg DAILY PO Last administered on 08/08/16 09: 08; Admin Dose 150 MG; Start 08/02/16 at 09:00 Cilostazol (Pletal) 50 mg BID PO Last administered on 08/08/16 09:09; Admin Dose 50 MG; Start 08/01/16 at 21:00 Polyethylene Glycol (Miralax) 8.5 gm DAILY PO Last administered on 08/08/16 09: 07; Admin Dose 8.5 GM; Start 08/02/16 at 09:00 Guaifenesin/ Codeine Phosphate (Robitussin Ac Liquid Cup) 10 ml BID PRN PO COUGH Last administered on 08/06/16 21:37; Admin Dose 10 ML; Start 08/01/16 at 22:30 Bisacodyl (Dulcolax) 10 mg BID PO Last administered on 08/08/16 09:06; Admin Dose 10 MG; Start 08/03/16 at 21:00 Sodium Biphosphate/ Sodium Phosphate (Fleet Enema) 133 ml DAILY PRN [place] CONSTIPATION; Start 08/03/16 at 17:00 Metoprolol Tartrate (Lopressor) 5 mg Q4H PRN IV HR>110 Hold SBP<100 Last administered on 08/07/16 18:18; Admin Dose 5 MG; Start 08/03/16 at 20:00 Methylprednisolone Sodium Succinate 40 mg 40 mg Q6 IV Last administered on 12:34; Admin Dose 40 MG; Start 08/04/16 at 12:00 Cefepime HCl (Maxipime 1gm/50 ml (Pmx)) 50 ml @ 100 mls/hr Q12 IVPB Last administered on 08/08/16 09:13; Admin Dose 100 MLS/HR; Start 08/04/16 at 21:00 Aspirin (Aspirin) 81 mg DAILY PO ; Start 08/05/16 at 09:00; Status Future Hold Diltiazem HCl (Cardizem) 60 mg Q8 PO Last administered on 08/08/16 05:41; Admin Dose 60 MG; Start 08/04/16 at 22:00 Hydroxyzine HCl (Atarax) 10 mg HS PO Last administered on 08/07/16 21:04; Admin Dose 10 MG; Start 08/05/16 at 21:00 Clobetasol Propionate (Temovate 0.05% Cr) APPLY TO both arms, SPARINGLY BID TOP Last administered on 08/08/16 09:09; Admin Dose 1 APPLIC; Start 08/05/16 at 14: 30 Apixaban (Eliquis) 2.5 mg BID PO Last administered on 08/08/16 09:07; Admin Dose 2.5 MG; Start 08/06/16 at 21:00 Atenolol (Tenormin) 50 mg BID PO Last administered on 08/08/16 09:08; Admin Dose 50 MG; Start 08/06/16 at 21:00 Acetaminophen/ Hydrocodone Bitart ([place] (5/325)) 1 tab Q6H PRN PO PAIN LEVEL 6 -10 Last administered on 08/08/16 00:35; Admin Dose 1 TAB; Start 08/06/16 at 13: 30 Assessment/Plan Chief Complaint/Hosp Course Assessment 1. Status post hypoxemic respiratory failure with left pleural effusion. Status post thoracentesis. 2. History of COPD 3. History of lung cancer status post chemo and radiation 4. Atrial fibrillation on anticoagulation Plan 1. Continue bronchodilators 2. Discharge planning 3. Outpatient follow-up with cytology. Problems: AISHWARYA PICKARD MD, [facility] Aug 08, 2016 12:46
--- NOTE | 2016-08-08 13:52 | CONS ---
Date/Time of Note Date/Time of Note DATE: 08/08/16 TIME: 13:50 Assessment/Plan Assessment/Plan Chief Complaint/Hosp Course SUBJECTIVE: No acute changes. The patient is alert, denies pain, looks comfortable. No fevers. ANTIMICROBIALS: Cefepime PHYSICAL EXAMINATION: GENERAL: This is a fragile, well-developed elderly man, who is awake, in no distress. HEENT: Head atraumatic, normocephalic. Sclerae anicteric. Buccal mucosa dry. NECK: Supple. CHEST: Chest rise is symmetrical. Breath sounds diminished to the left. HEART: S1, S2. ABDOMEN: Soft, bowel tones present. EXTREMITIES: No cyanosis. ASSESSMENT: 1. Acute respiratory failure secondary to chronic obstructive pulmonary disease exacerbation and left pleural effusion==>s/p thoracentesis 2. Chronic kidney disease. 3. Coronary artery disease. 4. History of lung cancer, status post radiation. 5. Atrial fibrillation and cardiomyopathy. PLAN: The patient remains stable, followed by cardiology and the pulmonary team. Continue the present care and downgrade antibiotics to PO Levaquin. DW staff Problems: Consultation Date/Type/Reason Admit Date/Time Aug 03, 2016 at 16:58 Initial Consult Date 08/03/16 Type of Consultation: id Referring Provider: KARLEY DEAN MD Exam/Review of Systems Vital Signs Vitals Vital Signs Date Time Temp Pulse Resp B/P Pulse Ox O2 Delivery O2 Flow Rate FiO2 08/08/16 12:34 73 08/08/16 11:28 97.8 16 136/59 99 08/08/16 07:52 Nasal Cannula 2.0 08/08/16 05:48 21 Intake and Output 08/07/16 08/07/16 08/08/16 15:00 23:00 07:00 Intake Total 50 ml 850 ml 480 ml Output Total 1200 ml 400 ml Balance 50 ml -350 ml 80 ml Results Result Diagram: 08/05/1657 08/05/1657 Medications Medications Current Medications Pantoprazole (Protonix Tab) 40 mg DAILY@06 PO Last administered on 08/08/16t 05: 33; Admin Dose 40 MG; Start 08/02/16 at 06:00 Albuterol/ Ipratropium (Duoneb) 3 ml PRN PRN HHN SHORTNESS OF BREATH; Start at 17:30 Bupropion HCl (Wellbutrin Sr) 150 mg DAILY PO Last administered on 08/08/16 09: 08; Admin Dose 150 MG; Start 08/02/16 at 09:00 Cilostazol (Pletal) 50 mg BID PO Last administered on 08/08/16 09:09; Admin Dose 50 MG; Start 08/01/16 at 21:00 Polyethylene Glycol (Miralax) 8.5 gm DAILY PO Last administered on 08/08/16 09: 07; Admin Dose 8.5 GM; Start 08/02/16 at 09:00 Guaifenesin/ Codeine Phosphate (Robitussin Ac Liquid Cup) 10 ml BID PRN PO COUGH Last administered on 08/06/16 21:37; Admin Dose 10 ML; Start 08/01/16 at 22:30 Bisacodyl (Dulcolax) 10 mg BID PO Last administered on 08/08/16 09:06; Admin Dose 10 MG; Start 08/03/16 at 21:00 Sodium Biphosphate/ Sodium Phosphate (Fleet Enema) 133 ml DAILY PRN [place] CONSTIPATION; Start 08/03/16 at 17:00 Metoprolol Tartrate (Lopressor) 5 mg Q4H PRN IV HR>110 Hold SBP<100 Last administered on 08/07/16 18:18; Admin Dose 5 MG; Start 08/03/16 at 20:00 Methylprednisolone Sodium Succinate 40 mg 40 mg Q6 IV Last administered on 12:34; Admin Dose 40 MG; Start 08/04/16 at 12:00 Cefepime HCl (Maxipime 1gm/50 ml (Pmx)) 50 ml @ 100 mls/hr Q12 IVPB Last administered on 08/08/16 09:13; Admin Dose 100 MLS/HR; Start 08/04/16 at 21:00 Aspirin (Aspirin) 81 mg DAILY PO ; Start 08/05/16 at 09:00; Status Future Hold Diltiazem HCl (Cardizem) 60 mg Q8 PO Last administered on 08/08/16 13:30; Admin Dose 60 MG; Start 08/04/16 at 22:00 Hydroxyzine HCl (Atarax) 10 mg HS PO Last administered on 08/07/16 21:04; Admin Dose 10 MG; Start 6/3/17 at 21:00 Clobetasol Propionate (Temovate 0.05% Cr) APPLY TO both arms, SPARINGLY BID TOP Last administered on 08/08/16 09:09; Admin Dose 1 APPLIC; Start 08/05/16 at 14: 30 Apixaban (Eliquis) 2.5 mg BID PO Last administered on 08/08/16 09:07; Admin Dose 2.5 MG; Start 08/06/16 at 21:00 Atenolol (Tenormin) 50 mg BID PO Last administered on 08/08/16 09:08; Admin Dose 50 MG; Start 08/06/16 at 21:00 Acetaminophen/ Hydrocodone Bitart ([place] (5/325)) 1 tab Q6H PRN PO PAIN LEVEL 6 -10 Last administered on 08/08/16 00:35; Admin Dose 1 TAB; Start 08/06/16 at 13: 30 SUZANNE DANIELS NP Aug 08, 2016 13:52
--- NOTE | 2016-08-08 14:05 | PDOCDIS ---
Discharge Instructions CONDITION Patient Condition: Stable ACTIVITY: Activity Restrictions: Slowly Increase Activity FOLLOW UP/APPOINTMENTS Appointments f/u dr dean [address] groves 2 wks KARLEY DEAN MD Aug 08, 2016 14:05
[2016-08-08] MEDS ORDERED: LEVO250T35 PO (14:10)
[2016-08-08] MEDS ORDERED: DILT60TA29 PO (14:10)
[2016-08-08] MEDS ORDERED: TEM15CR5 TOP (14:10)
[2016-08-08] MEDS ORDERED: APIX5TAB PO (14:10)
[2016-08-08] MEDS ORDERED: ATEN50TA PO (14:10)
[2016-08-08] MEDS ORDERED: HYDR-3498 PO (14:10)
[2016-08-08] MEDS ORDERED: IPRA3AMP HHN ×2 (14:10)
[2016-08-08] MEDS ORDERED: PANT40TA4 PO (14:10)
[2016-08-08] MEDS ORDERED: UDROBAC PO (14:10)
[2016-08-08] MEDS ORDERED: BISA5TAB6 PO (14:10)
[2016-08-08] MEDS ORDERED: MET40I IV (14:10)
[2016-08-08] MEDS ORDERED: ASPI81TA3 PO (14:10)
[2016-08-09] MEDS ORDERED: LEVOFLOXACIN 500 MG TAB PO SCH (06:00)
[2016-08-10] MEDS ORDERED: LEVOFLOXACIN 250 MG TAB PO SCH (06:00)
--- NOTE | 2016-08-12 17:38 | QN ---
Documentation Comment [id number] KARLEY DEAN MD Aug 12, 2016 17:38
--- NOTE | 2016-08-13 11:19 | DS ---
DATE OF ADMISSION: 08/03/2016 DATE OF DISCHARGE: 08/08/2016 HOSPITAL COURSE: The patient was admitted with short of breath, had pulmonary edema, atrial fibrillation, rapid ventricular response, lung congestion, pleural effusion, was seen by Dr. Dale Holder in consultation. Patient was seen by Dr. Hall in cardiology consultation, who recommends keep patient's _ thoracentesis of the fluid from the left lung. Patient also was continued on anticoagulation for atrial fibrillation. Patient has weakness, will go to [facility]. DISCHARGE DIAGNOSES: At the time of the discharge, diagnoses includes: 1. Acute respiratory failure. 2. Chronic kidney disease. 3. Coronary artery disease. 4. History of lung cancer, status post radiation and surgery. 5. Patient had pulmonary edema. 6. Chronic obstructive pulmonary disease exacerbation. 7. Pleural effusion status post thoracentesis. 8. Patient has chronic obstructive pulmonary disease. 9. History of lung ca_. 10. History of chf w_ ejection fraction 35% to 40%. DISCHARGE MEDICATIONS: Patient to continue on: 1. Apixaban. 2. Aspirin. 3. Atenolol. 4. Bisacodyl. 5. Clobetasol. 6. Diltiazem. 7. Guaifenesin. 8. Hydrocodone. 9. Atrovent. 10. Albuterol. 11. hhn 12. ppi 13. Protonix. DISCHARGE INSTRUCTIONS: Patient to follow up as an outpatient with me and follow up with Dr. Hall. Patient to go to SNF for physical therapy, occupational therapy. Dictated By: KARLEY DEAN MD BS/NTS Conf#: [id number] DID#: [id number]
== END 2016-08-08 17:17 | DRG 186 ==
LOC: E/R 09:49 → MS4 11:17 → OBSVTOIN 08-03 16:58
PROVIDERS: ADMIT Internal Medicine Nephrology; ATTEND Internal Medicine Nephrology
PROC: 0W9B3ZX Drainage of Left Pleural Cavity, Percutaneous Approach, Diagnostic (ICD-10-PCS; principal; 2016-08-05)
DX: J90 Pleural effusion, not elsewhere classified (principal); J96.01 Acute respiratory failure with hypoxia; I50.23 Acute on chronic systolic (congestive) heart failure; J18.9 Pneumonia, unspecified organism; N17.9 Acute kidney failure, unspecified; I42.9 Cardiomyopathy, unspecified; D68.69 Other thrombophilia; I48.91 Unspecified atrial fibrillation; I13.0 Hypertensive heart and chronic kidney disease with heart failure and stage 1 through stage 4 chronic kidney disease, or unspecified chronic kidney disease; J44.1 Chronic obstructive pulmonary disease with (acute) exacerbation; N18.9 Chronic kidney disease, unspecified; I25.10 Atherosclerotic heart disease of native coronary artery without angina pectoris; E78.5 Hyperlipidemia, unspecified; Z72.0 Tobacco use; Z85.118 Personal history of other malignant neoplasm of bronchus and lung; Z86.73 Personal history of transient ischemic attack (TIA), and cerebral infarction without residual deficits
CPT/HCPCS: 32555; 36415; 71010; 71020; 80048; 80053; 83880; 84484; 85025; 85610; 85730; 87040; 87070; 87102; 87116; 88104; 88305; 93005; 94640; 94664; 96374; 96375; 99217; G0378; J0692; J1650; J1940; J1956; J2920; J3370; J7040

== ENCOUNTER → 2017-07-04 | Outpatient (CLI) | END | disposition home or self-care (01) ==

== ENCOUNTER → 2017-08-22 | Outpatient (CLI) | END | disposition home or self-care (01) ==

== ENCOUNTER 2018-02-07 12:01 | Inpatient (IN) | payer BC, MEDICARE, OTHER ==
[~2018-02-07] VITALS: Ht 177.8 cm; Wt 79.1 kg
[~2018-02-07 12:01] MED LIST changes: +ASPI-831 PO; -ATEN-138 PO; +BISA5TAB6 PO; -CEPH500C PO; +CODE5LIQ2 PO; +HYDR-3601 PO; +IPRA3AMP29 HHN; +LEVO250T22 PO; +MET40I IV; +PANT40TA4 PO; +TEM15CR5 TOP
[2018-02-07] MEDS ORDERED: IPRATROPIUM (NEB) 0.5 MG/2.5 ML AMP INH STA (12:19)
[2018-02-07] MEDS ORDERED: MAGNESIUM SULFATE 2 GM/50 ML 50 ML IVPB STA (12:19)
[2018-02-07] MEDS ORDERED: METHYLPREDNISOLONE 125 MG INJ IV STA (12:19)
[2018-02-07] MEDS ORDERED: ALBUTEROL 0.5% (NEB) 2.5 MG/0.5 ML AMP INH STA (12:19)
--- NOTE | 2018-02-07 12:34 | ERD ---
ER Documentation Chief Complaint Chief Complaint sob, cough, cp, onset 1 week HPI 77-year-old man complains of shortness of breath and wheezing. He has a history of congestive heart failure and COPD and states he has been using home oxygen and albuterol pump at home without relief. He has had dyspnea on exertion and cough but denies fevers or chills, no chest pain, no vomiting or diarrhea, no blood per rectum or melena ROS All systems reviewed and are negative except as per history of present illness. Medications Home Meds Active Scripts Clobetasol Propionate* (Temovate*) 0.05%-15gm Cream..g., 0 APPLIC TOP BID for 14 Days Prov:KARLEY DEAN MD 08/08/16 Methylprednisolone Sodium Succinate (Solu-Medrol) 40 Mg Soln, 40 MG IV Q6 for 14 Days Prov:KARLEY DEAN MD 08/08/16 Pantoprazole* (Pantoprazole*) 40 Mg Tablet.dr, 40 MG PO DAILY@06 for 14 Days Prov:KARLEY DEAN MD 08/08/16 Bisacodyl* (Bisacodyl*) 5 Mg Tablet.dr, 10 MG PO BID for 28 Days Prov:KARLEY DEAN MD 08/08/16 Guaifenesin-Codeine Phosphate* (Robitussin* AC) 5 Ml Syrup, 10 ML PO BID PRN for COUGH for 14 Days Prov:KARLEY DEAN MD 08/08/16 Hydrocodone Bit-Acetaminophen (Hydrocodone Bit-APAP) 5-325MG Tablet, 1 TAB PO Q6H PRN for PAIN LEVEL 6-10 for 14 Days, TAB Prov:KARLEY DEAN MD 08/08/16 Aspirin (Aspirin) 81 Mg Chew, 81 MG PO DAILY for 28 Days, TAB Prov:KARLEY DEAN MD 08/08/16 Diltiazem Hcl* (Cardizem*) 60 Mg Tablet, 60 MG PO Q8 for 30 Days, TAB Prov:KARLEY DEAN MD 08/08/16 Atenolol* (Atenolol*) 50 Mg Tablet, 50 MG PO BID for 28 Days, TAB Prov:KARLEY DEAN MD 08/08/16 Apixaban* (Eliquis*) 5 Mg Tablet, 2.5 MG PO BID for 28 Days, TAB Prov:KARLEY DEAN MD 08/08/16 Ipratropium-Albuterol (Ipratropium-Albuterol) 0.5-3 Mg/3 Ml Ampul.neb, 3 ML HHN Q4H RESP THERAPY for 28 Days Prov:KARLEY DEAN MD 08/08/16 Ipratropium-Albuterol (Ipratropium-Albuterol) 0.5-3 Mg/3 Ml Ampul.neb, 3 ML HHN PRN PRN for SHORTNESS OF BREATH for 28 Days Prov:KARLEY DEAN MD 08/08/16 Levofloxacin* (Levaquin*) 250 Mg Tablet, 250 MG PO DAILY@06 for 10 Days, TAB Prov:KARLEY DEAN MD 08/08/16 [Promethazine/Codeine Syp] 5 ML SYRUP No Conflict Check, 10 ML PO Q6H PRN for COUGH, #240 ML Prov:JERSON MCCORMACK MD 02/10/16 Diltiazem Hcl* (Cardizem*) 60 Mg Tablet, 60 MG PO TID, #180 TAB Prov:JERSON MCCORMACK MD 02/10/16 Reported Medications Furosemide* (Lasix*) 40 Mg Tablet, 40 MG PO DAILY, TAB 01/31/16 Bupropion Hcl* (Bupropion Hcl SR*) 150 Mg Tablet.er, 150 MG PO DAILY, TAB.SA 08/18/15 Cilostazol* (Cilostazol*) 50 Mg Tablet, 50 MG PO BID, TAB 08/18/15 Polyethylene Glycol* (Polyethylene Glycol*) 17 Gm Powd.pack, 8.5 GM PO DAILY, PACKET 08/31/14 Allergies Allergies: Coded Allergies: No Known Allergy (Unverified , 02/06/16) PMhx/Soc History of congestive heart failure with a left ventricular ejection fraction of 35%, prior pulmonary edema, atrial fibrillation, hypertension, COPD with continued tobacco use, lung cancer status post radiation and surgery, chronic kidney disease History of Surgery: Yes Anesthesia Reaction: No Hx 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 Disorder: No Hx Respiratory Disorders: Yes Hx Cardiac Disorders: Yes Hx Psychiatric Problems: No Hx Miscellaneous Medical Probl: Yes Hx Alcohol Use: Yes Hx Substance Use: No Hx Tobacco Use: Yes FmHx Family History: diabetes Physical Exam Vitals Vital Signs Date Temp Pulse Resp B/P (MAP) Pulse Ox O2 O2 Flow FiO2 Time Delivery Rate 02/07/18 108 100 40 12:38 02/07/18 96.9 75 26 174/85 95 12:11 (114) Physical Exam GENERAL: Well-developed, dyspneic, afebrile, appears dehydrated HEENT: Moist mucous membranes, pink conjunctiva, no cervical spine tenderness or step-off deformities, no goiter, no jaundice or icterus, extraocular movements intact without pain. NEURO: Alert and oriented 3, cranial nerves II through XII intact bilaterally, pupils equal round reactive to light, no focal deficits or facial asymmetry, sensation intact distally Strength 5/5 in upper and lower extremities shay aterally CARDIAC: Tachycardic and regular LUNGS: Crackles and wheezing at the bases, poor breath sounds bilaterally ABDOMEN: Soft nontender, no guarding, no rigidity, no rebound, no psoas sign no obturator sign. SKIN: Warm and dry to touch, no abrasions, contusions, or hematomas, no lacerations, no ecchymosis, no target lesions, and without ulcers EXTREMITIES: No clubbing cyanosis, 1+ pitting edema in the lower extremities bilaterally, calves are bilaterally symmetrical, no Homans sign, no popliteal cord sign. Distal pulses equal and bilateral PSYCH: Normal affect without agitation or irritability Result Diagram: 02/07/18 1230 02/07/18 1230 Results 24 hrs Laboratory Tests Test 02/07/18 12:19 02/07/18 12:30 Blood Gas Specimen Source Blood arterial Arterial Blood Date Drawn 02/07/2018 12:47:15 PM Arterial Blood pH (Temp corrected) 7.420 Arterial Blood pCO2 (Temp correct) 31.3 mmhg Arterial Blood pO2 (Temp corrected) 98.8 mmHG Arterial Blood HCO3 19.8 mmol/L Arterial Blood Base Excess -3.6 mmol/L Arterial Blood Oxygen Saturation 97.6 mmHG Harshad Test ACCEPTAB Arterial Blood Gas Puncture Site Right Radial Arterial Blood Carboxyhemoglobin 1.2 % Arterial Blood Methemoglobin 0.2 % Blood Gas A-a O2 Differential 150.4 mmHg Oxyhemoglobin Percent 96.2 % Blood Gas Temperature 37.0 C Blood Gas Respiration Rate 14.0 Blood Gas Actual Respiration Rate 32 Blood Gas Modality MASK - BIPAP FiO2 40.0 % Blood Gas Pressure Support 10 Blood Gas IPAP/EPAP Ratio 17/07 Blood Gas Notified Whom Nora Blood Gas Notified Time 02/07/2018 12:55:45 PM White Blood Count 11.5 10^3/ul Red Blood Count 4.10 10^6/ul Hemoglobin 13.1 g/dl Hematocrit 37.8 % Mean Corpuscular Volume 92.2 fl Mean Corpuscular Hemoglobin 32.0 pg Mean Corpuscular Hemoglobin Concent 34.7 g/dl Red Cell Distribution Width 13.3 % Platelet Count 307 10^3/UL Mean Platelet Volume 9.0 fl Immature Granulocytes % 0.300 % Neutrophils % 80.2 % Lymphocytes % 9.9 % Monocytes % 8.8 % Eosinophils % 0.4 % Basophils % 0.4 % Nucleated Red Blood Cells % 0.0 /100WBC Immature Granulocytes # 0.030 10^3/ul Neutrophils # 9.3 10^3/ul Lymphocytes # 1.1 10^3/ul Monocytes # 1.0 10^3/ul Eosinophils # 0.1 10^3/ul Basophils # 0.1 10^3/ul Nucleated Red Blood Cells # 0.0 10^3/ul Sodium Level 132 mmol/L Potassium Level 4.8 mmol/L Chloride Level 95 mmol/L Carbon Dioxide Level 21 mmol/L Anion Gap 16 Blood Urea Nitrogen 15 mg/dl Creatinine 1.10 mg/dl Est Glomerular Filtrat Rate mL/min mL/min Glucose Level 113 mg/dl Calcium Level 9.8 mg/dl Total Bilirubin 0.8 mg/dl Direct Bilirubin 0.00 mg/dl Indirect Bilirubin 0.8 mg/dl Aspartate Amino Transf (AST/SGOT) 27 IU/L Alanine Aminotransferase (ALT/SGPT) < 6 IU/L Alkaline Phosphatase 139 IU/L Troponin I Pending Total Protein 7.9 g/dl Albumin 4.9 g/dl Globulin 3.00 g/dl Albumin/Globulin Ratio 1.63 Lipase 24 U/L Current Medications Medications Dose Sig/Yamileth Start Time Status Last (Trade) Ordered Route PRN Stop Time Admin Dose Reason Admin Albuterol 10 mg ONCE STAT 02/07/18 DC 02/07/18 (Proventil INH 12:19 12:43 0.5% (Neb)) 02/07/18 12:21 Ipratropium 1 mg ONCE STAT 02/07/18 DC 02/07/18 [place] INH 12: 12:43 (Atrovent 02/07/18 12:21 0.02% (Neb)) 125 mg ONCE STAT 02/07/18 DC 02/07/18 Methylprednis IV 12:19 12:52 olone Sodium 02/07/18 12:21 Succinate (Solu-Medrol) Magnesium 50 ml @ 25 ONCE STAT 02/07/18 02/07/18 Sulfate mls/hr IVPB 12:19 12:53 02/07/18 14:18 Furosemide 40 mg ONCE ONCE 02/07/18 UNV (Lasix) IV 13:00 02/07/18 13:01 Aspirin 162 mg ONCE ONCE 02/07/18 UNV (Aspirin) PO 13:00 02/07/18 13:01 Enalaprilat 1.25 mg ONCE ONCE 02/07/18 UNV (Vasotec Iv) IV 13:00 02/07/18 13:01 Aspirin 162 mg ONCE ONCE 02/07/18 UNV (Aspirin) PO 13:00 02/07/18 13:01 Enalaprilat 1.25 mg ONCE ONCE 02/07/18 (Vasotec Iv) IV 13:30 02/07/18 13:31 1 tab ONCE ONCE 02/07/18 Nitroglycerin SL 13:30 02/07/18 13:31 (Nitroglyceri n (Sl Tab) 0.4 Mg) Procedures/MDM IV line was established patient was placed on mailing manager rhythm strip revealed a narrow complex tachycardia at 120 bpm with upright P and T waves. Patient was afebrile EKG performed, read by me revealed an atrial fibrillation with rapid ventricular rate at 113 bpm, normal axis, narrow QRS complex, T wave inversions in lateral leads, no concerning ST elevations or depressions noted For severe dyspnea and wheezing I administered BiPAP therapy, albuterol 10 mg via nebulizer, ipratropium 1 mg via nebulizer, methylprednisolone 125 mg IV x1, magnesium 2 g IV. 1 view chest x-ray performed, read by me: There is a large left pleural effusion and cardiomegaly with bilateral vascular congestion, this is similar to the patient's last x-ray performed a few months ago Critical Care: Time: 47 minutes, this was time separate from other billable procedures. Treatments/Evaluations: Close monitoring and treatment of unstable vital signs, cardiorespiratory, and neurologic status, while maintaining tight balance of fluid, respiratory, and cardiac interventions. I also administered Lasix 40 mg IV x1, aspirin 162 mg p.o. for cardioprotective measures, nitroglycerin 0.4 mg sublingual, and enalapril 1.25 mg IV x1 CBC was unremarkable, electrolytes within normal limits, liver function tests normal, troponin negative ABG performed, read by me revealed a pH of 7.42, PCO2 31, PO2 100 Patient with multiple medical conditions presents with acute dyspnea and tachypnea and found to have decompensated heart failure and acute COPD exacerbation. He is now improving on BiPAP and bronchodilator therapy and will be admitted to telemetry setting for continued medical management Departure Diagnosis: Primary Impression: Atrial fibrillation with RVR Additional Impressions: Hypertensive emergency COPD (chronic obstructive pulmonary disease) COPD type: COPD with acute exacerbation Qualified Codes: J44.1 - Chronic obstructive pulmonary disease with (acute) exacerbation CHF (congestive heart failure) Heart failure type: systolic Heart failure chronicity: acute Qualified Codes: I50.21 - Acute systolic (congestive) heart failure Condition: DINAH Batista MD Feb 07, 2018 12:34
[2018-02-07] MEDS ORDERED: ASPIRIN 81 MG TAB PO ONE ×2 (13:00)
[2018-02-07] MEDS ORDERED: ENALAPRILAT 1.25 MG INJ IV ONE ×2 (13:00→13:30)
[2018-02-07] MEDS ORDERED: FUROSEMIDE 40 MG INJ IV ONE (13:00)
[2018-02-07] MEDS ORDERED: NITROGLYCERIN (SL) 0.4 MG TAB SL ONE (13:30)
[2018-02-07 16:22] VITALS: PULSE 106
--- NOTE | 2018-02-07 16:27 | QN ---
Documentation Comment seen and examined FIDEL GAVIN MD Feb 07, 2018 16:27
[2018-02-07] MEDS ORDERED: ONDANSETRON 4 MG INJ IV PRN (16:30)
[2018-02-07] MEDS ORDERED: METHYLPREDNISOLONE 125 MG INJ IV ONE (16:30)
[2018-02-07] MEDS ORDERED: ALBUTEROL/IPRATROPIUM (NEB) 3 ML AMP HHN SCH (16:30)
[2018-02-07] MEDS ORDERED: ACETAMINOPHEN 325 MG TAB PO PRN (16:30)
[2018-02-07] MEDS ORDERED: NACL 0.9% 3 ML SYG IV SCH (16:30)
[2018-02-07] MEDS ORDERED: LEVALBUTEROL (NEB) 1.25 MG/0.5 ML AMP HHN ONE (16:30)
[2018-02-07 16:50] VITALS: PULSE 105
[2018-02-07] MEDS: LEVALBUTEROL (NEB) 1.25 MG/0.5 ML AMP HHN SCH ×2 (16:50→19:55)
--- NOTE | 2018-02-07 17:41 | HP ---
DATE OF ADMISSION: 02/07/2018 REASON FOR ADMISSION: Shortness of breath. HISTORY OF PRESENTING ILLNESS: This is a 77-year-old male with a past medical history of hypertensio n, hyperlipidemia, COPD, CKD, atherosclerotic heart disease, history of lung cancer status post radia tion, hypoxic respiratory distress, moderate left-sided effusion, history of thoracentesis, left lowe r lobe pneumonia, AFib, rapid ventricular response, cardiomyopathy, EF of 35% to 40%, history of CVA, history of carotid endarterectomy, presented to the emergency department complaining of shortness of breath for past 1 week. The patient had been followed by Dr. Hall as an outpatient and been foll owed by Dr. Saleh as an outpatient. The patient was admitted in the hospital on 08/13/2016. At that time, he was discharged to SNF. According to the patient, he has been feeling shortness of breath f or the past 1 week. The patient is a very poor historian, not sure if he is taking Lasix at home. T he patient said, "I have those listed. I don't know their names." The patient denied any cough, any fevers and chills. The patient was getting so short of breath that he went to the was gasping for air and was brought into the emergency department. On arrival to ED, vital signs showed initial blood pressure 174/85, respirations was 26, afebrile, pulse was 75, AFib. Labs showed sodium 132, p otassium 4.8, chloride 95, BUN of 15, creatinine 1.10. BNP 9320. White count of 11.5, hemoglobin 13 .1. ABG showed pH of 7.2, pCO2 of 31, pO2 of 98, bicarbonate of 19. Chest x-ray showed no significa nt change in large left pleural effusion, dense left mid to lower lung consolidation with atelectasis ; however, pneumonia is not excluded, small right effusion. The patient received Solu-Medrol, magnes ium, albuterol, Atrovent, Vasotec, aspirin, Lasix, nitroglycerin and was admitted for further managem ent. PAST MEDICAL HISTORY: 1. CHF with EF of 35% to 40%. 2. COPD. 3. History of lung cancer. 4. AFib on anticoagulation. 5. History of hypoxic respiratory failure. 6. Left pleural effusion. 7. History of left lower lobe pneumonia. 8. History of CVA. 9. History of carotid endarterectomy. ALLERGIES: NEGATIVE. FAMILY HISTORY: Negative. SOCIAL HISTORY: The patient lives by himself at home. MEDICATIONS LISTED AT HOME: 1. Lasix 40. 2. Ipratropium 3 mL q.4. 3. Eliquis 2.5 b.i.d. 4. Cilostazol 50 b.i.d. 5. Atenolol 50 b.i.d. 6. Diltiazem 60 q.8. 7. Aspirin 81. 8. Bupropion 150. 9. Pantoprazole 40. 10. Polyethylene glycol. REVIEW OF SYSTEMS: The patient has been short of breath, gasping for air. Occasionally had some cou gh. Denied any fevers and chills. The patient denied any abdominal pain, nausea, vomiting, diarrhea . Denied any headache, any blurry vision. Denied any hematemesis, any melena or blood per rectum. Denies any focal neurological deficit. PHYSICAL EXAMINATION: VITAL SIGNS: Currently, blood pressure 145/101, respiratory rate 25, pulse 98, afebrile, saturating 99%, currently on BiPAP. GENERAL: The patient is tachypneic, able to speak very small sentences. HEENT: Pupils are equal, round, reactive to light. NECK: Supple. HEART: Irregularly irregular. LUNGS: Diffuse rhonchi heard in all lung kelley, some decreased breath sounds on the left base. ABDOMEN: Soft, nontender, nondistended, positive normoactive bowel sounds. EXTREMITIES: There is 1+ edema. LABORATORY DATA: White count 11.5, hemoglobin 13.1, platelet count 309. BMP showed BUN of 15, creat inine 1.10. BNP 9320. Troponin is less than 0.012. DIAGNOSTIC DATA: Chest x-ray shows left large pleural effusion which may represent atelectasis or pn eumonia is not excluded, small right pleural effusion. ASSESSMENT AND PLAN: This is a 77-year-old male who presented with: 1. Shortness of breath likely secondary to congestive heart failure/chronic obstructive pulmonary di sease exacerbation. 2. Large left pleural effusion, status post thoracentesis in the past. 3. History of chronic obstructive pulmonary disease. 4. Atrial fibrillation with rapid ventricular response. 5. Hypertension. 6. EKG changes of atrial fibrillation with ST segment changes in the inferior leads. 7. History of lung cancer status post chemo and radiation. 8. History of coronary artery disease. 9. Pleural effusion, status post thoracentesis. 10. Elevated BNP secondary to congestive heart failure. 11. Hyponatremia. 12. History of peripheral vascular disease. PLAN: At this period of time, the patient is admitted to telemetry. We will continue the patient on nebs, aspirin and Lasix and steroids. The patient is currently on BiPAP. The patient will also nee d thoracentesis on the left. We will get serial EKGs, troponin. Pulmonary and cardiology consultati on will be requested. Rest of the treatment will depend on the patient's hospitalization course. Dictated By: FIDEL HOGAN/JACQUELINE Conf#: [id number] DID#: [id number] CC: CECE HALL MD;*End*
[2018-02-07] MEDS ORDERED: DIGO125T93 PO (17:45)
--- NOTE | 2018-02-07 17:46 | NUR ---
Pt has money in his wallet 148 dollars, refused to send it to security. Pt prefers to have his wallet and money with him
[2018-02-07] MEDS: FUROSEMIDE 40 MG INJ IV SCH (18:50)
[2018-02-07] MEDS: DILTIAZEM 60 MG TAB PO SCH (18:53)
[2018-02-07 19:55] VITALS: PULSE 104
[2018-02-07 20:00] VITALS: PULSE 98
--- NOTE | 2018-02-07 20:45 | NUR ---
[facility] Recieved patient from ER in respiratory distress. Pt had labored breathing, retractions and using accessory muscles. Dr. Roberson made aware, Bipap Started. Lasix, and solu-medrol given. Endorsed care to oncoming RN.
[2018-02-07] MEDS: CEFEPIME 1GM/50 ML (PMX) 50 ML IVPB SCH (21:17)
[2018-02-07] MEDS: METHYLPREDNISOLONE 125 MG INJ IV SCH (21:17)
[2018-02-07 21:26] VITALS: BP 136/90; PULSE 122; RESP 22
[2018-02-08] VITALS (23 sets, daily range): BP systolic 100–142; BP diastolic 55–81; PULSE 55–128; RESP 17–26; Ht 177.8 cm; Wt 79.1 kg
[2018-02-08] MEDS: DILTIAZEM 60 MG TAB PO SCH ×4 (00:25→21:44)
[2018-02-08] MEDS: LEVALBUTEROL (NEB) 1.25 MG/0.5 ML AMP HHN SCH ×6 (00:45→20:02)
[2018-02-08] MEDS: PANTOPRAZOLE 40 MG INJ IV SCH (05:09)
[2018-02-08] MEDS: FUROSEMIDE 40 MG INJ IV SCH ×2 (05:10→17:22)
[2018-02-08] MEDS: METHYLPREDNISOLONE 125 MG INJ IV SCH ×3 (05:16→21:41)
--- NOTE | 2018-02-08 06:45 | NUR ---
All needs attended and met. No c/o of pain overnight. Patient tolerated on BIPAP and was then put on nasal cannula at 3LPM towards later in the morning. Patient was on bed rest since he was on BIPAP all night. NPO post MN, for possible thoracentesis today, consent obtained. Placed call light within reach. Bed Alarms on. Kept safe and comfortable.
[2018-02-08] MEDS: CEFEPIME 1GM/50 ML (PMX) 50 ML IVPB SCH ×2 (08:04→21:41)
[2018-02-08] MEDS ORDERED: INFLUENZA VIRUS VACCINE 0.5 ML (DISPENSING) IM* ONE (09:00)
--- NOTE | 2018-02-08 11:21 | PN ---
Date/Time of Note Date/Time of Note DATE: 02/08/18 TIME: 11:21 Assessment/Plan VTE Prophylaxis Risk score (from Ns)>0 risk: 8 SCD applied (from Ns): Yes Pharmacological prophylaxis: NA/contraindicated Pharm contraindication: surgical contra Lines/Catheters IV [facility] [place] Assessment/Plan Hospital Course ASSESSMENT AND PLAN: This is a 77-year-old male who presented with: 1. Shortness of breath likely secondary to congestive heart failure/chronic obstructive pulmonary disease exacerbation. 2. Large left pleural effusion, status post thoracentesis in the past. 3. History of chronic obstructive pulmonary disease. 4. Atrial fibrillation with rapid ventricular response. 5. Hypertension. 6. EKG changes of atrial fibrillation with ST segment changes in the inferior leads. 7. History of lung cancer status post chemo and radiation. 8. History of coronary artery disease. 9. Pleural effusion, status post thoracentesis. 10. Elevated BNP secondary to congestive heart failure. 11. Hyponatremia. 12. History of peripheral vascular disease. PLAN - Thoracentesis today - cw steroids - Replete K - iv lasix > monitor Cr - c w diltazema and atenolol - f/u cardiac and pul recs - hold eliquis due to procedure Subjective 24 Hr Interval Summary Free Text/Dictation Pt was still on BIPAP Thoracentesis today Exam/Review of Systems Vital Signs Vitals Vital Signs Date Temp Pulse Resp B/P (MAP) Pulse Ox O2 O2 Flow FiO2 Time Delivery Rate 02/08/18 105 100 30 09:07 02/08/18 3.0 07:48 02/08/18 98.0 17 124/81 07:19 (95) 02/08/18 Nasal 05:22 Cannula Intake and Output 02/07/18 02/07/18 02/08/18 1515:00 23:00 07:00 IntakeIntake Total 500 ml OutputOutput Total 900 ml BalanceBalance -400 ml Exam GENERAL: The patient is on bipapa HEENT: Pupils are equal, round, reactive to light. NECK: Supple. HEART: Irregularly irregular. LUNGS: Diffuse rhonchi heard in all lung kelley, some decreased breath sounds on the left base. ABDOMEN: Soft, nontender, nondistended, positive normoactive bowel sounds. EXTREMITIES: There is 1+ edema. Medications Medications Current Medications IV Flush (NS 3 ml) 3 ml PER PROTOCOL IV ; Start 02/07/18 at 16:30 Ondansetron HCl (Zofran Inj) 4 mg Q6H PRN IV NAUSEA AND/OR VOMITING; Start 02/07/18 at 16:30 Acetaminophen (Tylenol Tab) 650 mg Q6H PRN PO PAIN LEVEL 1-3 OR FEVER; Start 02/07/18 at 16:30 Docusate Sodium (Colace) 100 mg Q12H PRN PO CONSTIPATION; Start 02/07/18 at 16:30 Pantoprazole (Protonix Iv) 40 mg DAILY@06 IV Last administered on 02/08/18at 05:09; Admin Dose 40 MG; Start 02/08/18 at 06:00 Methylprednisolone Sodium Succinate (Solu-Medrol) 60 mg Q8 IV Last administered on 02/08/18at 05:16; Admin Dose 60 MG; Start 02/07/18 at 22:00 Cefepime HCl 50 ml @ 100 mls/hr Q12 IVPB Last administered on 02/08/18at 08:04; Admin Dose 100 MLS/HR; Start 02/07/18 at 21:00 Levalbuterol (Xopenex Neb) 1.25 mg Q4H RESP THERAPY HHN Last administered on 02/08/18at 09:07; Admin Dose 1.25 MG; Start 02/07/18 at 17:00 Furosemide (Lasix) 40 mg BID DIURETICS IV Last administered on 02/08/18at 05:10; Admin Dose 40 MG; Start 02/07/18 at 18:00 Diltiazem HCl (Cardizem) 60 mg Q8 PO Last administered on 02/08/18at 05:20; Admin Dose 60 MG; Start 02/07/18 at 17:00 Atenolol (Tenormin) 25 mg BID PO ; Start 02/08/18 at 11:00 Results Result Diagram: 02/08/1872002/08/18720 Results 24 hrs Laboratory Tests Test 02/07/18 12:19 02/07/18 12:30 02/07/18 16:50 02/07/18 19:00 Blood Gas Blood arterial Specimen Source Arterial Blood 02/07/2018 12:47 Date Drawn :15 PM Arterial Blood 7.420 pH (Temp corrected) Arterial Blood 31.3 L pCO2 (Temp correct) Arterial Blood 98.8 H pO2 (Temp corrected) Arterial Blood 19.8 L HCO3 Arterial Blood -3.6 L Base Excess Arterial Blood 97.6 Oxygen Saturatio n Harshad Test ACCEPTAB Arterial Blood Right Radial Gas Puncture Site Arterial 1.2 Blood Carboxyhem oglobin Arterial Blood 0.2 Methemoglobin Blood Gas A-a O2 150.4 H Differential Oxyhemoglobin 96.2 Percent Blood Gas 37.0 Temperature Blood Gas 14.0 Respiration Rate Blood Gas Actual 32 Respiration Rate Blood Gas MASK - BIPAP Modality FiO2 40.0 Blood Gas 10 Pressure Support Blood Gas 15/5 IPAP/EPAP Ratio Blood Gas M.D. Notified Whom Blood Gas 02/07/2018 12:55 Notified Time :45 PM White Blood 11.5 #H Count Red Blood Count 4.10 L Hemoglobin 13.1 L Hematocrit 37.8 L Mean Corpuscular 92.2 Volume Mean Corpuscular 32.0 Hemoglobin Mean Corpuscular 34.7 Hemoglobin Naz nt Red Cell 13.3 Distribution Width Platelet Count 307 Mean Platelet 9.0 Volume Immature 0.300 Granulocytes % Neutrophils % 80.2 H Lymphocytes % 9.9 L Monocytes % 8.8 Eosinophils % 0.4 Basophils % 0.4 Nucleated Red 0.0 Blood Cells % Immature 0.030 Granulocytes # Neutrophils # 9.3 H Lymphocytes # 1.1 Monocytes # 1.0 H Eosinophils # 0.1 Basophils # 0.1 Nucleated Red 0.0 Blood Cells # Prothrombin Time 15.9 H Prothrombin Time 1.2 Ratio INR 1.25 International Normalized Ratio Activated 37.9 H Partial Thrombop last Time Sodium Level 132 L Potassium Level 4.8 Chloride Level 95 L Carbon Dioxide 21 Level Anion Gap 16 H Blood Urea 15 Nitrogen Creatinine 1.10 Est Glomerular Filtrat Rate mL/min Glucose Level 113 Calcium Level 9.8 Total Bilirubin 0.8 Direct Bilirubin 0.00 Indirect 0.8 Bilirubin Aspartate Amino 27 Transf (AST/SGOT ) Alanine < 6 L Aminotransferase (ALT/SGPT) Alkaline 139 H Phosphatase Troponin I < 0.012 < 0.012 B-Type 9320 H Natriuretic Peptide Total Protein 7.9 Albumin 4.9 Globulin 3.00 Albumin/Globulin 1.63 Ratio Lipase 24 Creatine Kinase 37 Creatine Kinase 5.9 Index Creatinine 2.19 Kinase MB (Mass) Urine Color YELLOW Urine Clarity SLIGHTLY CLOUDY A Urine pH 5.0 Urine Specific 1.005 [place] Urine Ketones NEGATIVE Urine Nitrite NEGATIVE Urine Bilirubin NEGATIVE Urine NEGATIVE Urobilinogen Urine Leukocyte 2+ H Esterase Urine 2 Microscopic RBC Urine 12 H Microscopic WBC Urine Bacteria FEW A Urine Hemoglobin 2+ H Urine Glucose NEGATIVE Urine Total NEGATIVE Protein Test 02/07/18 22:09 02/08/18 07:21 Creatine Kinase 30 Creatine Kinase 6.2 Index Creatinine 1.86 Kinase MB (Mass) Troponin I < 0.012 White Blood 10.3 Count Red Blood Count 3.81 L Hemoglobin 11.8 L Hematocrit 34.6 L Mean Corpuscular 90.8 Volume Mean Corpuscular 31.0 Hemoglobin Mean Corpuscular 34.1 Hemoglobin Naz nt Red Cell 13.3 Distribution Width Platelet Count 295 Mean Platelet 9.1 Volume Immature 0.400 Granulocytes % Neutrophils % 90.2 H Lymphocytes % 6.3 L Monocytes % 3.0 Eosinophils % 0.0 Basophils % 0.1 Nucleated Red 0.0 Blood Cells % Immature 0.040 H Granulocytes # Neutrophils # 9.3 H Lymphocytes # 0.7 L Monocytes # 0.3 Eosinophils # 0.0 Basophils # 0.0 Nucleated Red 0.0 Blood Cells # Sodium Level 135 Potassium Level 3.4 L Chloride Level 99 Carbon Dioxide 23 Level Anion Gap 13 Blood Urea 27 #H Nitrogen Creatinine 1.39 H Est Glomerular Filtrat Rate mL/min Glucose Level 187 Calcium Level 9.2 Phosphorus Level 3.3 Magnesium Level 2.0 Free Thyroxine 3.15 Index Thyroxine (T4) 7.5 Triiodothyronine 42.0 H (T3) Uptake FIDEL GAVIN MD Feb 08, 2018 11:21
--- NOTE | 2018-02-08 11:25 | RADRPT ---
Echocardiogram Report Patient Name: KAN NGUYEN Gender: Male Date: 1940 Study Date: 08-Feb-2018 Wind Tunnel Technician: Nahid Aguayo [facility] Physician: FIDEL GAVIN Quality: Adequate Procedures: Transthoracic echocardiogram with complete 2D, M-Mode, and doppler examination. Indications: Congestive Heart Failure. 2D/M Mode Doppler Measurement Value Normal Ranges Measurement Value Normal Ranges LVIDd 2D 4.7 3.5 - 5.6 cm AV Peak Tonio 1.9 m/sec LVIDs 2D 2.3 2.1 - 4.1 cm AV Peak PG 14.0 mmHg LVPWd 2D 1.2 0.6 - 1.1 cm LVOT Peak Tonio 0.9 m/sec IVSd 2D 1.2 0.6 - 1.1 cm LVOT Peak PG 3.0 mmHg AoR Diam 2D 3.4 2.0 - 3.7 cm MV E Peak Tonio 1.1 m/sec LA/Ao 2D 1 0 - 1 MV Decel Time 204 msec LA Dimen 2D 4.1 2.3 - 4.0 cm TAPSE 2.5 cm TR Peak Tonio 3.2 m/sec TR Peak PG 41.0 mmHg RVSP 49.0 mmHg RA Pressure 8.0 Findings Left Ventricle: Normal left ventricular systolic function. Normal left ventricular cavity size. Mild concentric left ventricular hypertrophy. Ejection fraction is visually estimated at 55 %. Right Ventricle: Normal right ventricular size. Normal right ventricular systolic function. Left Atrium: There is mild enlargement of left atrium. Right Atrium: There is moderate enlargement of right atrium. Mitral Valve: Normal appearance of the mitral valve. Mild mitral annular calcification. Mild mitral valve regurgitation. Aortic Valve: No significant aortic stenosis or insufficiency. Aortic cusps appear mildly calcified. Tricuspid Valve: Normal appearance of the tricuspid valve. Estimated peak PA systolic pressure 49 mmHg. There is mild to moderate tricuspid regurgitation. Pulmonic Valve: Normal pulmonic valve appearance. Pericardium: Normal pericardium with no significant pericardial effusion. Aorta: Normal aortic root. IVC: Dilated IVC with respiratory collapse consistent with elevated right atrial pressure. Conclusions Normal left ventricular systolic function. Normal left ventricular cavity size. Mild concentric left ventricular hypertrophy. Ejection fraction is visually estimated at 55 %. Normal appearance of the mitral valve. Mild mitral annular calcification. Mild mitral valve regurgitation. No significant aortic stenosis or insufficiency. Aortic cusps appear mildly calcified. Normal appearance of the tricuspid valve. Estimated peak PA systolic pressure 49 mmHg. There is mild to moderate tricuspid regurgitation. Electronically Signed By: Rommel Balderrama 08-Feb-2018 11:24:51 -0800 Patient Name: KAN NGUYEN Study Date: 08-Feb-2018 [id number]
--- NOTE | 2018-02-08 12:17 | NUR ---
STATUS POST RIGHT THORACENTESIS. On arrival, patient AAOX4. Procedure explained by and Informed Consent obtained. Chest x-ray shows pleural effusions on both sides, but right pleural effusion appeared to be slightly larger on U/S and so chosen by . T.O. called at 1122 and procedure started. Using sterile technique, right pleural cavity accessed with Yueh needle and connected to suction bottle. 625Mml serosanguinous fluid aspirated. No orders at first for lab analysis so call placed to and orders obtained by his nurse. Specimen labeled and sent to lab. Patient went from sitting to lying, pushing self up in bed and became winded from the exertion. Color remained pink but respiratory rate increased from 21/min to around 30/min for about 5min and slowly decreased back to 22-23/min. He denied having any pain and O2Sat went down to 95% then back up to 99% during that time of exertion. Post Thoracentesis CXR showed small pneumothorax. Follow-up CXR to be done at 1300. Released to the room on the monitor and O2 @4/L min with СЕРГЕЙ Hoyos at bedside.
[2018-02-08] MEDS: ATENOLOL 25 MG TAB PO SCH ×2 (12:30→20:51)
--- NOTE | 2018-02-08 13:24 | NUR ---
ULTRASOUND GUIDED RT THORACENTESIS PERFORMED BY DR FELTON,625ML FLUID ASPIRATED AND SENT TO FLOOR FOR RN ,BECAUSE TO ORDER IN [facility]MP[facility]ER
--- NOTE | 2018-02-08 14:09 | NUR ---
SW: AHCD & INITIAL PSYCHOSOCIAL ASSESSMENT SW met with this 77-year-old Turkmen speaking male at bedside regarding AHCD & initial psychosocial assessment. Patient denies having an AHCD, and he verbally designated his friend Aaron Garcia ([phone]) as his first surrogate spokesperson, and his friend Joel Rodriguezveena ([phone]) as secondary surrogate spokesperson. Patient states he lives home alone at [address] [place] [address]. States he is retired and receives [employer] benefits. States he is single and has no children. States he is not cheondoism/ spiritual. Patient states that he has a sister but states he does not know her whereabouts. States he has no contact with her. Patient denies any questions/ concerns at this time. States his friend Aaron and friend Joel are his surrogate spokespersons. Embedded Software Architect remains available as needed throughout patient's treatment process.
--- NOTE | 2018-02-08 15:42 | CONS ---
DATE OF ADMISSION: 02/07/2018 DATE OF CONSULTATION: REASON FOR CONSULTATION: Pleural effusion. Thank you, Dr. Roberson, for this consultation. HISTORY OF PRESENT ILLNESS: This is a 77-year-old gentleman with multiple medical problems including COPD, hypertension, hyperlipidemia, coronary artery disease, history of lung cancer, status post rad iation treatment; came in with increasing shortness of breath, orthopnea, and PND; found to have recu rrence of left pleural effusion. The patient had metabolic acidosis on arterial blood gas. Thoracen tesis has been ordered this morning. PAST MEDICAL HISTORY: COPD, lung cancer, ejection fraction decreased with congestive cardiac failure , recurrent left pleural effusion, left lower lobe pneumonia with compression atelectasis. ALLERGIES: NONE. SOCIAL HISTORY: Ex-smoker, no alcohol, no history of drug use. FAMILY HISTORY: Noncontributory. REVIEW OF SYSTEMS: Twelve-point review of systems negative other than that mentioned above. PHYSICAL EXAMINATION: GENERAL: Elderly-appearing gentleman, appears comfortable at rest, no acute distress. VITAL SIGNS: Currently afebrile, pulse 80, blood pressure 129/59, O2 saturation 96% on 3 L nasal can nula. NECK: Supple, no JVD or lymphadenopathy. CARDIAC: S1 and S2, no added sounds or murmurs. CHEST: Diminished air entry bilaterally. ABDOMEN: Soft, nontender, no guarding or rebound. EXTREMITIES: No cyanosis, clubbing, or edema. NEUROLOGIC: Generalized weakness. LABORATORY DATA: White count 10.3, hemoglobin 11.8, platelets 295. BUN 27, creatinine 1.39. INR 1. 25. Ultrasound-guided thoracentesis was performed. The patient had 0.625 L removed from pleural spa ce. IMPRESSION: 1. Recurrent pleural effusion, questionable malignant. 2. History of cardiomyopathy. 3. Underlying chronic obstructive pulmonary disease. PLAN: 1. Await pleural fluid studies. 2. Supplemental O2 as needed. 3. We will consider chest CT to evaluate left effusion, which appears loculated on chest x-ray. Dictated By: AISHWARYA MAURO/JACQUELINE Conf#: [id number] DID#: [id number] CC: FIDEL ROBERSON;*EndCC*
--- NOTE | 2018-02-08 19:00 | NUR ---
RN NOTES RCVD A CALL FROM DR. ROBLERO HE SAID PT. HAS RT. PNEMO THORAX (10-20%) AND LEFT PLUERAL EFFUSION. CALLED DR. GAVIN. WAITING FOR A CALL BACK.
--- NOTE | 2018-02-08 19:17 | NUR ---
EOSS PT. IS ON BIPAP. ALERT AND ORIENTED. HAD A THORACENTESIS THIS AM THEY TOOK OUT 625ML. SPECIMEN WAS SEND TO LAB FOR. TESTS. ON SOFT DIET WELL TOLERATED. KEPT CLEAN AND DRY. ENCOURAGE REPOSITIONING. WILL ENDORSED TO NEXT SHIFT FOR FURTHER CARE.
--- NOTE | 2018-02-08 19:37 | NUR ---
RN NOTES LEFT MESSAGE TO DR. GAVIN REGARDING THE CXR. WAITING FOR CALL BACK.
--- NOTE | 2018-02-08 19:45 | NUR ---
DR GAVIN RETURNED CALL NOTIFIED ABOUT THE AM NURSE REPORT OF DR SANTOS CALL TO HER RE: PATIENT WITH PNEUMOTHORAX 10-20% AND LEFT PLEURAL EFFUSION, NO NEW ORDERS GIVEN.
[2018-02-08] MEDS: POTASSIUM CHLORIDE 100 ML IVPB SCH ×2 (20:50→21:41)
--- NOTE | 2018-02-08 21:57 | NUR ---
AT THE START OF THE SHIFT WHILE MAKING REPORT WITH AM NURSE, AM NURSE KEEP ON CHECKING/FIXING PATIENT'S BIPAP, SUGGESTED TO HER TO CALL RESPIRATORY THERAPIST TO CHECK PATIENT. SPOKE WITH RESPIRATORY THERAPIST ON DUTY FOR THE PATIENT AND SUGGESTED TO CHECK PATIENT AND HE STATED HE IS GOING TO GET A NEW MASK/BIPAP FOR PATIENT. PLACED AT THIS TIME ON PATIENT AND PATIENT MORE COMFORTABLE WITH BIPAP NEW MASK ON.
[2018-02-09] VITALS (17 sets, daily range): BP systolic 95–153; BP diastolic 53–72; PULSE 63–107; RESP 16–20
[2018-02-09] MEDS: LEVALBUTEROL (NEB) 1.25 MG/0.5 ML AMP HHN SCH ×6 (01:37→20:27)
[2018-02-09] MEDS: PANTOPRAZOLE 40 MG INJ IV SCH (06:01)
[2018-02-09] MEDS: METHYLPREDNISOLONE 125 MG INJ IV SCH ×3 (06:02→21:09)
[2018-02-09] MEDS: DILTIAZEM 60 MG TAB PO SCH ×3 (06:02→21:09)
--- NOTE | 2018-02-09 06:32 | NUR ---
END OF THE SHIFT SUMMARY: PT A/A/O X 4. 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 VS MONITORED, STABLE. ON BIPAP 15/5 FiO2 30%, TOLERATED WELL, O2 SATS 95-100%. DENIES SHORTNESS OF BREATH BUT WITH SHORTNESS OF BREATH ON EXERTION. DENIES ANY PAIN. ORAL CARE RENDERED. ENCOURAGED REPOSITIONING OF SELF WITH VERBAL ENCOURAGEMENT. REDNESS ON THE NOSE ON THE MASK APPLICATION SITE OF THE BIPAP, OPEN TO AIR. BIPAP MASK CHANGED TO BIGGER ONE BY RT, MORE COMFORTABLE FOR PATIENT. WEIGHT MONITORED AND RECORDED. SLEPT WELL. WILL ENDORSED TO AM NURSE.
[2018-02-09] MEDS: CEFEPIME 1GM/50 ML (PMX) 50 ML IVPB SCH ×2 (08:22→21:09)
[2018-02-09] MEDS: ATENOLOL 25 MG TAB PO SCH ×2 (08:25→21:08)
[2018-02-09] MEDS ORDERED: FUROSEMIDE 40 MG INJ IV SCH (09:00)
--- NOTE | 2018-02-09 09:54 | CONS ---
Date/Time of Note Date/Time of Note DATE: 02/09/18 TIME: 09:51 Assessment/Plan Assessment/Plan Additional Assessment/Plan 1.AF with RVR - rate better controlled at 90s - rate better now in 80s 2.CHF-systolic EF last 35-40 prior - now improved to 50% - con't med RX, no indication for ICD now. 3.HTN- tolerated diuresos, btter now 4.Possible scabies s/p treatment 5.COPD - on Rx 6. H/O lung ca 7.PNA and effusion - pulmonary follows - better clinically 8.ARF-ongoing, avoid nephrotoxic meds 9. Secondary hypercoag state - Eliquis, tolerating now Consultation Date/Type/Reason Admit Date/Time Feb 07, 2018 at 13:54 Initial Consult Date 24 HR Interval Summary Free Text/Dictation Pt looks better overall- decreased oxygen demand - con't to keep euvolemic ROS: No fever, no chills, no nausea, no vomiting, no diarrhea/constipation No recent weight changes No chest pain, no PND, no orthopnea - improved SOB No dizziness, blurred vision No thirst, no heat or cold intolerance Exam/Review of Systems Vital Signs Vitals Vital Signs Date Temp Pulse Resp B/P (MAP) Pulse Ox O2 O2 Flow FiO2 Time Delivery Rate 02/09/18 94 08:16 02/09/18 97.5 19 124/72 98 07:28 (89) 02/09/18 30 04:57 02/09/18 8.0 04:45 02/08/18 Nasal 16:55 Cannula Intake and Output 02/08/18 02/08/18 02/09/18 1515:00 23:00 07:00 IntakeIntake Total 650 ml 500 ml OutputOutput Total 625 ml 700 ml 900 ml BalanceBalance -625 ml -50 ml -400 ml Exam General: WN/WD/NAD, AOx 2 HEENT: Unicetric/atraumatic/EOMI ( follow commands) NECK: JVD elevated, no thyromegaly Lymph: no lymphadenopathy HEART: irregular with no S3, II/ systolic murmur at apex LUNGS: Coarse sounds ABD: soft, NT, ND, +BS : Intact Neuro: non focal SKIN: chronic changes EXT: trace edema Medications Medications Current Medications IV Flush (NS 3 ml) 3 ml PER PROTOCOL IV ; Start 02/07/18 at 16:30 Ondansetron HCl (Zofran Inj) 4 mg Q6H PRN IV NAUSEA AND/OR VOMITING; Start 02/07/18 at 16:30 Acetaminophen (Tylenol Tab) 650 mg Q6H PRN PO PAIN LEVEL 1-3 OR FEVER; Start 02/07/18 at 16:30 Docusate Sodium (Colace) 100 mg Q12H PRN PO CONSTIPATION; Start 02/07/18 at 16:30 Pantoprazole (Protonix Iv) 40 mg DAILY@06 IV Last administered on 02/09/18 06:01; Admin Dose 40 MG; Start 02/08/18 at 06:00 Methylprednisolone Sodium Succinate (Solu-Medrol) 60 mg Q8 IV Last administered on 02/09/18 06:02; Admin Dose 60 MG; Start 02/07/18 at 22:00 Cefepime HCl 50 ml @ 100 mls/hr Q12 IVPB Last administered on 02/09/18 08:22; Admin Dose 100 MLS/HR; Start 02/07/18 at 21:00 Levalbuterol (Xopenex Neb) 1.25 mg Q4H RESP THERAPY HHN Last administered on 02/09/18 09:48; Admin Dose 1.25 MG; Start 02/07/18 at 17:00 Diltiazem HCl (Cardizem) 60 mg Q8 PO Last administered on 02/09/18 06:02; Admin Dose 60 MG; Start 02/07/18 at 17:00 Atenolol (Tenormin) 25 mg BID PO Last administered on 02/09/18at 08:25; Admin Dose 25 MG; Start 02/08/18 at 11:00 Furosemide (Lasix) 40 mg DAILY IV Last administered on 02/09/18 08:22; Admin Dose 40 MG; Start 02/09/18 at 09:00 Results Result Diagram: 02/09/1860902/09/18609 Results 24 hrs Laboratory Tests Test 02/08/18 11:30 02/09/18 06:10 Body Fluid Type PLEURAL FLUID Body Fluid Volume 650.0 Body Fluid Color YELLOW Body Fluid Appearance SLIGHTLY CLOUDY Body Fluid WBC 376 Body Fluid RBC (Auto) 5000 Body Fluid Polynuclear WBCs (%) 20.2 Body Fluid Mononuclear Cells % Auto 79.8 Body Fluid Total Protein 2.4 Body Fluid Lactate Dehydrogenase 278 White Blood Count 20.1 #H Red Blood Count 3.65 L Hemoglobin 11.6 L Hematocrit 34.2 L Mean Corpuscular Volume 93.7 Mean Corpuscular Hemoglobin 31.8 Mean Corpuscular Hemoglobin Concent 33.9 Red Cell Distribution Width 13.9 Platelet Count 290 Mean Platelet Volume 9.1 Immature Granulocytes % 0.700 H Neutrophils % 91.6 H Lymphocytes % 4.1 L Monocytes % 3.6 Eosinophils % 0.0 Basophils % 0.0 Nucleated Red Blood Cells % 0.0 Immature Granulocytes # 0.140 H Neutrophils # 18.4 H Lymphocytes # 0.8 Monocytes # 0.7 Eosinophils # 0.0 Basophils # 0.0 Nucleated Red Blood Cells # 0.0 Sodium Level 137 Potassium Level 3.7 Chloride Level 100 Carbon Dioxide Level 24 Anion Gap 13 Blood Urea Nitrogen 33 H Creatinine 1.61 H Est Glomerular Filtrat Rate mL/min Glucose Level 161 Calcium Level 8.9 Phosphorus Level 3.9 Magnesium Level 2.0 EMILY SANTAMARIA MD Feb 09, 2018 09:54
[2018-02-09] MEDS: GUAIFENESIN/DM 5ML CUP PO PRN (13:16)
--- NOTE | 2018-02-09 15:55 | CONS ---
Date/Time of Note Date/Time of Note DATE: 02/09/18 TIME: 15:51 Consult Date/Type/Reason Admit Date/Time Feb 07, 2018 at 13:54 Initial Consult Date Type of Consultation: Pulm Subjective Intermittently on BiPAP. No complaints. Objective Vital Signs Date Temp Pulse Resp B/P (MAP) Pulse Ox O2 O2 Flow FiO2 Time Delivery Rate 02/09/18 97.6 83 16 104/60 94 15:39 (75) 02/09/18 30 15:31 02/09/18 4.0 13:05 02/08/18 Nasal 16:55 Cannula Intake and Output 02/08/18 02/08/18 02/09/18 1414:59 22:59 06:59 IntakeIntake Total 650 ml 500 ml OutputOutput Total 625 ml 700 ml 900 ml BalanceBalance -625 ml -50 ml -400 ml Exam HEENT: Neck supple; no JVD; no LAD CVS: Irreg irreg, S1 and S2 CHEST: Diminished ABD: Soft, NT, + BS EXT: No c/c/e Results/Medications Result Diagram: 02/09/18 0610 02/09/18 0610 Results 24 hrs Laboratory Tests Test 02/09/18 06:10 02/09/18 07:00 White Blood Count 20.1 #H Red Blood Count 3.65 L Hemoglobin 11.6 L Hematocrit 34.2 L Mean Corpuscular Volume 93.7 Mean Corpuscular Hemoglobin 31.8 Mean Corpuscular Hemoglobin Concent 33.9 Red Cell Distribution Width 13.9 Platelet Count 290 Mean Platelet Volume 9.1 Immature Granulocytes % 0.700 H Neutrophils % 91.6 H Lymphocytes % 4.1 L Monocytes % 3.6 Eosinophils % 0.0 Basophils % 0.0 Nucleated Red Blood Cells % 0.0 Immature Granulocytes # 0.140 H Neutrophils # 18.4 H Lymphocytes # 0.8 Monocytes # 0.7 Eosinophils # 0.0 Basophils # 0.0 Nucleated Red Blood Cells # 0.0 Sodium Level 137 Potassium Level 3.7 Chloride Level 100 Carbon Dioxide Level 24 Anion Gap 13 Blood Urea Nitrogen 33 H Creatinine 1.61 H Est Glomerular Filtrat Rate mL/min Glucose Level 161 Calcium Level 8.9 Phosphorus Level 3.9 Magnesium Level 2.0 Blood Gas Specimen Source Blood arterial Arterial Blood Date Drawn 02/09/2018 9:40:42 AM Arterial Blood pH (Temp corrected) 7.444 Arterial Blood pCO2 (Temp correct) 31.9 L Arterial Blood pO2 (Temp corrected) 77.1 L Arterial Blood HCO3 21.4 L Arterial Blood Base Excess -1.9 Arterial Blood Oxygen Saturation 95.4 Harshad Test ACCEPTAB Arterial Blood Gas Puncture Site Right Radial Arterial Blood Carboxyhemoglobin 0.7 Arterial Blood Methemoglobin 0.3 Blood Gas A-a O2 Differential 99.3 H Oxyhemoglobin Percent 94.4 Blood Gas Temperature 37.0 Blood Gas Modality NASAL CANNULA FiO2 30.0 Blood Gas Notified Whom Esperanza RUBIO RADIATOR MECHANIC Blood Gas Notified Time 02/09/2018 10:06:55 AM Medications Current Medications IV Flush (NS 3 ml) 3 ml PER PROTOCOL IV ; Start 02/07/18 at 16:30 Ondansetron HCl (Zofran Inj) 4 mg Q6H PRN IV NAUSEA AND/OR VOMITING; Start 02/07/18 at 16:30 Acetaminophen (Tylenol Tab) 650 mg Q6H PRN PO PAIN LEVEL 1-3 OR FEVER; Start 02/07/18 at 16:30 Docusate Sodium (Colace) 100 mg Q12H PRN PO CONSTIPATION; Start 02/07/18 at 16:30 Pantoprazole (Protonix Iv) 40 mg DAILY@06 IV Last administered on 02/09/18at 06:01; Admin Dose 40 MG; Start 02/08/18 at 06:00 Methylprednisolone Sodium Succinate (Solu-Medrol) 60 mg Q8 IV Last administered on 02/09/18 13:55; Admin Dose 60 MG; Start 02/07/18 at 22:00 Cefepime HCl 50 ml @ 100 mls/hr Q12 IVPB Last administered on 02/09/18 08:22; Admin Dose 100 MLS/HR; Start 02/07/18 at 21:00 Levalbuterol (Xopenex Neb) 1.25 mg Q4H RESP THERAPY HHN Last administered on 02/09/18 13:04; Admin Dose 1.25 MG; Start 02/07/18 at 17:00 Diltiazem HCl (Cardizem) 60 mg Q8 PO Last administered on 02/09/18 13:56; Admin Dose 60 MG; Start 02/07/18 at 17:00 Atenolol (Tenormin) 25 mg BID PO Last administered on 02/09/18at 08:25; Admin Dose 25 MG; Start 02/08/18 at 11:00 Furosemide (Lasix) 40 mg DAILY IV Last administered on 02/09/18at 08:22; Admin D ose 40 MG; Start 02/09/18 at 09:00 Apixaban (Eliquis) 5 mg BID PO ; Start 02/09/18 at 21:00 Guaifenesin/ Dextromethorphan (Robitussin Dm Liquid Cup) 30 ml Q4H PRN PO COUGH Last administered on 02/09/18at 13:16; Admin Dose 30 ML; Start 02/09/18 at 12:30 Assessment/Plan Additional Assessment/Plan IMP: 1. Pleural Effusion 2. Right PTX 3. Chronic obstructive pulmonary disease 4. Atrial Fibrillation 5. History of cardiomyopathy RECS: 1. Concern for expanding right PTX on positive pressure ventilation 2. Will obtain CT chest non-con to better assess pleural space as I suspect he may benefit from small bore catheter insertion for PTX drainage JOSEE MCCLOUD MD Feb 09, 2018 15:55
--- NOTE | 2018-02-09 18:24 | NUR ---
EOSS PT IS STABLE, NO C/O PAIN AT THIS TIME. PT WAS ON BIPAP IN THE MORNING AND PLACED PT ON NC @3L/MIN 02 AT 94%. CHEST CT WAS DONE TODAY. HOURLY ROUNDING DONE, BED ALARM ON, CALL LIGHT WITHIN REACH. VS WNL.
--- NOTE | 2018-02-09 19:07 | PN ---
Date/Time of Note Date/Time of Note DATE: 02/09/18 TIME: 19:03 Assessment/Plan VTE Prophylaxis Risk score (from Ns)>0 risk: 7 SCD applied (from Ns): Yes Pharmacological prophylaxis: other Lines/Catheters IV Catheter Type (from Nrsg): Saline Lock Urinary Cath still in place: No Assessment/Plan Hospital Course ASSESSMENT AND PLAN: This is a 77-year-old male who presented with: 1. Shortness of breath likely secondary to congestive heart failure/chronic obstructive pulmonary disease exacerbation. 2 right-sided pneumothorax status post thoracentesis 2. Large left pleural effusion, status post thoracentesis in the past. 3. History of chronic obstructive pulmonary disease. 4. Atrial fibrillation with rapid ventricular response. 5. Hypertension. 6. EKG changes of atrial fibrillation with ST segment changes in the inferior leads. 7. History of lung cancer status post chemo and radiation.? NEW Lung metastases 8. History of coronary artery disease. 9. Pleural effusion, status post thoracentesis. 10. Elevated BNP secondary to congestive heart failure. 11. Hyponatremia. 12. History of peripheral vascular disease. 13 LEUKOCYTOSIS secondary to steroids 14 acute on chronic renal failure ? Overdiuresis PLAN -CT of the chest with pneumothorax called Dr. Joseph Welshhr - steroids, taper pulmonary - Replete K - hold dialysis hold Lasix - c w diltazema and atenolol - f/u cardiac and pul recs - hold eliquis due to procedure -IV cefepime - WILL also call oncology consultation Subjective 24 Hr Interval Summary Free Text/Dictation Okay he had right-sided pneumothorax started status post thoracentesis Exam/Review of Systems Vital Signs Vitals Vital Signs Date Temp Pulse Resp B/P (MAP) Pulse Ox O2 O2 Flow FiO2 Time Delivery Rate 02/09/18 24 97 4.0 16:42 02/09/18 83 16:22 02/09/18 97.6 104/60 15:39 (75) 02/09/18 30 15:31 02/08/18 Nasal 16:55 Cannula Intake and Output 02/08/18 02/08/18 02/09/18 1515:00 23:00 07:00 IntakeIntake Total 650 ml 500 ml OutputOutput Total 625 ml 700 ml 900 ml BalanceBalance -625 ml -50 ml -400 ml Exam Exam GENERAL: The patient is on bipapa HEENT: Pupils are equal, round, reactive to light. NECK: Supple. HEART: Irregularly irregular. LUNGS: Diminished breath sounds ABDOMEN: Soft, nontender, nondistended, positive normoactive bowel sounds. EXTREMITIES: There is 1+ edema. Medications Medications Current Medications IV Flush (NS 3 ml) 3 ml PER PROTOCOL IV ; Start 02/07/18 at 16:30 Ondansetron HCl (Zofran Inj) 4 mg Q6H PRN IV NAUSEA AND/OR VOMITING; Start 02/07/18 at 16:30 Acetaminophen (Tylenol Tab) 650 mg Q6H PRN PO PAIN LEVEL 1-3 OR FEVER; Start 02/07/18 at 16:30 Docusate Sodium (Colace) 100 mg Q12H PRN PO CONSTIPATION; Start 02/07/18 at 16:30 Pantoprazole (Protonix Iv) 40 mg DAILY@06 IV Last administered on 02/09/18at 06:01; Admin Dose 40 MG; Start 02/08/18 at 06:00 Methylprednisolone Sodium Succinate (Solu-Medrol) 60 mg Q8 IV Last administered on 02/09/18at 13:55; Admin Dose 60 MG; Start 02/07/18 at 22:00 Cefepime HCl 50 ml @ 100 mls/hr Q12 IVPB Last administered on 02/09/18at 08:22; Admin Dose 100 MLS/HR; Start 02/07/18 at 21:00 Levalbuterol (Xopenex Neb) 1.25 mg Q4H RESP THERAPY HHN Last administered on 02/09/18at 16:42; Admin Dose 1.25 MG; Start 02/07/18 at 17:00 Diltiazem HCl (Cardizem) 60 mg Q8 PO Last administered on 02/09/18at 13:56; Admin Dose 60 MG; Start 02/07/18 at 17:00 Atenolol (Tenormin) 25 mg BID PO Last administered on 02/09/18at 08:25; Admin Dose 25 MG; Start 02/08/18 at 11:00 Apixaban (Eliquis) 5 mg BID PO ; Start 02/09/18 at 21:00 Guaifenesin/ Dextromethorphan (Robitussin Dm Liquid Cup) 30 ml Q4H PRN PO COUGH Last administered on 02/09/18at 13:16; Admin Dose 30 ML; Start 02/09/18 at 12:30 Results Result Diagram: 02/09/18 0610 02/09/18 0610 Results 24 hrs Laboratory Tests Test 02/09/18 06:10 02/09/18 07:00 White Blood Count 20.1 #H Red Blood Count 3.65 L Hemoglobin 11.6 L Hematocrit 34.2 L Mean Corpuscular Volume 93.7 Mean Corpuscular Hemoglobin 31.8 Mean Corpuscular Hemoglobin Concent 33.9 Red Cell Distribution Width 13.9 Platelet Count 290 Mean Platelet Volume 9.1 Immature Granulocytes % 0.700 H Neutrophils % 91.6 H Lymphocytes % 4.1 L Monocytes % 3.6 Eosinophils % 0.0 Basophils % 0.0 Nucleated Red Blood Cells % 0.0 Immature Granulocytes # 0.140 H Neutrophils # 18.4 H Lymphocytes # 0.8 Monocytes # 0.7 Eosinophils # 0.0 Basophils # 0.0 Nucleated Red Blood Cells # 0.0 Sodium Level 137 Potassium Level 3.7 Chloride Level 100 Carbon Dioxide Level 24 Anion Gap 13 Blood Urea Nitrogen 33 H Creatinine 1.61 H Est Glomerular Filtrat Rate mL/min Glucose Level 161 Calcium Level 8.9 Phosphorus Level 3.9 Magnesium Level 2.0 Blood Gas Specimen Source Blood arterial Arterial Blood Date Drawn 02/09/2018 9:40:42 AM Arterial Blood pH (Temp corrected) 7.444 Arterial Blood pCO2 (Temp correct) 31.9 L Arterial Blood pO2 (Temp corrected) 77.1 L Arterial Blood HCO3 21.4 L Arterial Blood Base Excess -1.9 Arterial Blood Oxygen Saturation 95.4 Harshad Test ACCEPTAB Arterial Blood Gas Puncture Site Right Radial Arterial Blood Carboxyhemoglobin 0.7 Arterial Blood Methemoglobin 0.3 Blood Gas A-a O2 Differential 99.3 H Oxyhemoglobin Percent 94.4 Blood Gas Temperature 37.0 Blood Gas Modality NASAL CANNULA FiO2 30.0 Blood Gas Notified Whom Esperanza RUBIO RCP Blood Gas Notified Time 02/09/2018 10:06:55 AM FIDEL GAVIN MD Feb 09, 2018 19:07
[2018-02-09] MEDS ORDERED: APIXABAN 5 MG TABLET PO SCH (21:00)
[2018-02-09] MEDS: DOCUSATE SODIUM 100 MG CAP PO PRN (21:25)
[2018-02-10] VITALS (12 sets, daily range): BP systolic 113–172; BP diastolic 60–129; PULSE 75–115; RESP 14–20
[2018-02-10] MEDS: LEVALBUTEROL (NEB) 1.25 MG/0.5 ML AMP HHN SCH ×6 (02:40→20:22)
[2018-02-10] MEDS: GUAIFENESIN/DM 5ML CUP PO PRN ×2 (02:48→18:11)
[2018-02-10] MEDS: DILTIAZEM 60 MG TAB PO SCH ×3 (06:00→22:11)
[2018-02-10] MEDS: METHYLPREDNISOLONE 125 MG INJ IV SCH ×3 (06:15→20:06)
[2018-02-10] MEDS: PANTOPRAZOLE 40 MG INJ IV SCH (06:15)
--- NOTE | 2018-02-10 07:23 | NUR ---
PT AO x 4, Afib on tele, on 3L O2 NC. O2 Sats WNL. Still with dyspnea on exertion. Administered PRN cough syrup, with some relief. Pt kept NPO post midnight, for procedure. Dr. Roberson called to notify this RN that pt would have a pigtail placement of the right pneumothorax with Dr. Lacy Avendano. Consent is not yet signed, as patient has not received informed consent regarding the procedure from Dr. Lacy Avendano.
[2018-02-10] MEDS: ATENOLOL 25 MG TAB PO SCH ×2 (08:49→20:07)
[2018-02-10] MEDS: CEFEPIME 1GM/50 ML (PMX) 50 ML IVPB SCH ×2 (08:50→20:06)
--- NOTE | 2018-02-10 10:00 | NUR ---
RN UPDATE NOTIFIED DR. GAVIN FOR CLARIFICATION OF ORDERS; PT CURRENTLY ON NPO. DR GAVIN STATED PATIENT WILL HAVE CATHETER PLACEMENT D/T RT SIDED PNEUMOTHORAX. DR GAVIN REQUESTED TO ASK DR MCCLOUD IF HE CAN DO THE PROCEDURE FOR CATHETER PLACEMENT. NOTIFIED DR MCCLOUD REGARDING DR GAVIN'S REQUEST. STATED HE WILL DO THE PROCEDURE IN RAD ( IR) AND WILL PUT ORDERS IN. CONSENT WAS SIGNED BY PATIENT. UPDATED DR GAVIN REGARDING UPCOMING PROCEDURE. WILL CONTINUE TO MONITOR. Addendum: 02/10/18 at 1540 by CARLY MATHEWS RN DR MCCLOUD CAME ON THE FLOOR. EXPLAINED THAT THE PROCEDURE WILL BE DONE BY RADIOLOGY. NOTIFIED RADIOLOGY DEPARTMENT AND CONFIRMED REGARDING UPCOMING CATHETER PLACEMENT PROCEDURE. RADIOLOGY DEPT STATES WILL DO PROCEDURE TOMORROW. CT SCAN DEPARTMENT CALLED WELL AND INFORMED WILL DO PROCEDURE TOMORROW AND MAY NEED AN ANESTHESIOLOGIST IN THE PROCEDURE ROOM.
--- NOTE | 2018-02-10 11:33 | CONS ---
Date/Time of Note Date/Time of Note DATE: 02/10/18 TIME: 11:31 Assessment/Plan Assessment/Plan Additional Assessment/Plan 1.AF with RVR - rate better controlled at 90s - rate better now in 80s - much better now - will monitor clinically. 2.CHF-systolic EF last 35-40 prior - now improved to 50% - con't med RX, no indication for ICD now. Treated. 3.HTN- tolerated diuresos, btter now - add therpy as BP high now. 4.Possible scabies s/p treatment 5.COPD - on Rx 6. H/O lung ca 7.PNA and effusion - pulmonary follows - better clinically 8.ARF-ongoing, avoid nephrotoxic meds 9. Secondary hypercoag state - Eliquis, tolerating now Consultation Date/Type/Reason Admit Date/Time Feb 07, 2018 at 13:54 Initial Consult Date 24 HR Interval Summary Free Text/Dictation Much better overall - improved - will add BP therapy now. ROS: No fever, no chills, no nausea, no vomiting, no diarrhea/constipation No recent weight changes No chest pain, no PND, no orthopnea - mild SOB, mild wheezing No dizziness, blurred vision No thirst, no heat or cold intolerance Exam/Review of Systems Vital Signs Vitals Vital Signs Date Temp Pulse Resp B/P (MAP) Pulse Ox O2 O2 Flow FiO2 Time Delivery Rate 02/10/18 97.5 112 16 155/60 96 11:23 (91) 02/10/18 3.0 10:09 02/10/18 Nasal 10:06 Cannula 02/09/18 31 19:40 Intake and Output 02/09/18 02/09/18 02/10/18 1515:00 23:00 07:00 IntakeIntake Total 900 ml 200 ml OutputOutput Total 1100 ml BalanceBalance -200 ml 200 ml Exam General: WN/WD/NAD, AOx 3 HEENT: Unicetric/atraumatic/EOMI (ofollow commands) NECK: JVD elevated, no thyromegaly Lymph: no lymphadenopathy HEART: irregular with no S3, II/ systolic murmur at apex LUNGS: Coarse sounds, mild wheezing ABD: soft, NT, ND, +BS : Intact Neuro: non focal SKIN: chronic changes EXT: trace edema Medications Medications Current Medications IV Flush (NS 3 ml) 3 ml PER PROTOCOL IV ; Start 02/07/18 at 16:30 Ondansetron HCl (Zofran Inj) 4 mg Q6H PRN IV NAUSEA AND/OR VOMITING; Start 02/07/18 at 16:30 Acetaminophen (Tylenol Tab) 650 mg Q6H PRN PO PAIN LEVEL 1-3 OR FEVER; Start 02/07/18 at 16:30 Docusate Sodium (Colace) 100 mg Q12H PRN PO CONSTIPATION Last administered on 02/09/18 21:25; Admin Dose 100 MG; Start 02/07/18 at 16:30 Pantoprazole (Protonix Iv) 40 mg DAILY@06 IV Last administered on 02/10/18at 0 6:15; Admin Dose 40 MG; Start 02/08/18 at 06:00 Methylprednisolone Sodium Succinate (Solu-Medrol) 60 mg Q8 IV Last administered on 02/10/18at 06:15; Admin Dose 60 MG; Start 02/07/18 at 22:00 Cefepime HCl 50 ml @ 100 mls/hr Q12 IVPB Last administered on 02/10/18at 08:50; Admin Dose 100 MLS/HR; Start 02/07/18 at 21:00 Levalbuterol (Xopenex Neb) 1.25 mg Q4H RESP THERAPY HHN Last administered on 02/10/18at 10:05; Admin Dose 1.25 MG; Start 02/07/18 at 17:00 Diltiazem HCl (Cardizem) 60 mg Q8 PO Last administered on 02/09/18 21:09; Admin Dose 60 MG; Start 02/07/18 at 17:00 Atenolol (Tenormin) 25 mg BID PO Last administered on 02/10/18at 08:49; Admin Dose 25 MG; Start 02/08/18 at 11:00 Apixaban (Eliquis) 5 mg BID PO ; Start 02/09/18 at 21:00; Status Hold Guaifenesin/ Dextromethorphan (Robitussin Dm Liquid Cup) 30 ml Q4H PRN PO COUGH Last administered on 02/10/18at 02:48; Admin Dose 30 ML; Start 02/09/18 at 12:30 Results Result Diagram: 02/10/18 0557 02/10/18 0558 Results 24 hrs Laboratory Tests Test 02/10/18 05:57 02/10/18 05:58 White Blood Count 18.9 H Red Blood Count 3.75 L Hemoglobin 11.8 L Hematocrit 35.7 L Mean Corpuscular Volume 95.2 Mean Corpuscular Hemoglobin 31.5 Mean Corpuscular Hemoglobin Concent 33.1 Red Cell Distribution Width 14.2 Platelet Count 286 Mean Platelet Volume 9.1 Immature Granulocytes % 0.800 H Neutrophils % 90.7 H Lymphocytes % 3.6 L Monocytes % 4.8 Eosinophils % 0.0 Basophils % 0.1 Nucleated Red Blood Cells % 0.0 Immature Granulocytes # 0.150 H Neutrophils # 17.1 H Lymphocytes # 0.7 L Monocytes # 0.9 Eosinophils # 0.0 Basophils # 0.0 Nucleated Red Blood Cells # 0.0 Phosphorus Level 4.5 Magnesium Level 2.2 Sodium Level 139 Potassium Level 4.4 Chloride Level 102 Carbon Dioxide Level 24 Anion Gap 13 Blood Urea Nitrogen 45 #H Creatinine 1.75 H Est Glomerular Filtrat Rate mL/min Glucose Level 146 Calcium Level 9.1 EMILY SANTAMARIA MD Feb 10, 2018 11:33
--- NOTE | 2018-02-10 11:59 | NUR ---
paged dr. mercado.
--- NOTE | 2018-02-10 15:03 | CONS ---
Date/Time of Note Date/Time of Note DATE: 02/10/18 TIME: 15:01 Consult Date/Type/Reason Admit Date/Time Feb 07, 2018 at 13:54 Initial Consult Date Type of Consultation: Pulm Subjective Feeling the same. Dyspnea not worse. CT chest reviewed. Objective Vital Signs Date Temp Pulse Resp B/P (MAP) Pulse Ox O2 O2 Flow FiO2 Time Delivery Rate 02/10/18 112 30 94 Nasal 3.0 12:47 Cannula 02/10/18 97.5 155/60 11:23 (91) 02/09/18 31 19:40 Intake and Output 02/09/18 02/09/18 02/10/18 1515:00 23:00 07:00 IntakeIntake Total 900 ml 200 ml OutputOutput Total 1100 ml BalanceBalance -200 ml 200 ml Exam HEENT: Neck supple; no JVD; no LAD CVS: Irreg irreg, S1 and S2 CHEST: Diminished ABD: Soft, NT, + BS EXT: No c/c/e Results/Medications Result Diagram: 02/10/18 0557 02/10/18 0558 Results 24 hrs Laboratory Tests Test 02/10/18 05:57 02/10/18 05:58 White Blood Count 18.9 H Red Blood Count 3.75 L Hemoglobin 11.8 L Hematocrit 35.7 L Mean Corpuscular Volume 95.2 Mean Corpuscular Hemoglobin 31.5 Mean Corpuscular Hemoglobin Concent 33.1 Red Cell Distribution Width 14.2 Platelet Count 286 Mean Platelet Volume 9.1 Immature Granulocytes % 0.800 H Neutrophils % 90.7 H Lymphocytes % 3.6 L Monocytes % 4.8 Eosinophils % 0.0 Basophils % 0.1 Nucleated Red Blood Cells % 0.0 Immature Granulocytes # 0.150 H Neutrophils # 17.1 H Lymphocytes # 0.7 L Monocytes # 0.9 Eosinophils # 0.0 Basophils # 0.0 Nucleated Red Blood Cells # 0.0 Phosphorus Level 4.5 Magnesium Level 2.2 Sodium Level 139 Potassium Level 4.4 Chloride Level 102 Carbon Dioxide Level 24 Anion Gap 13 Blood Urea Nitrogen 45 #H Creatinine 1.75 H Est Glomerular Filtrat Rate mL/min Glucose Level 146 Calcium Level 9.1 Medications Current Medications IV Flush (NS 3 ml) 3 ml PER PROTOCOL IV ; Start 02/07/18 at 16:30 Ondansetron HCl (Zofran Inj) 4 mg Q6H PRN IV NAUSEA AND/OR VOMITING; Start 02/07/18 at 16:30 Acetaminophen (Tylenol Tab) 650 mg Q6H PRN PO PAIN LEVEL 1-3 OR FEVER; Start 02/07/18 at 16:30 Docusate Sodium (Colace) 100 mg Q12H PRN PO CONSTIPATION Last administered on 02/09/18 21:25; Admin Dose 100 MG; Start 02/07/18 at 16:30 Pantoprazole (Protonix Iv) 40 mg DAILY@06 IV Last administered on 02/10/18 06:15; Admin Dose 40 MG; Start 02/08/18 at 06:00 Methylprednisolone Sodium Succinate (Solu-Medrol) 60 mg Q8 IV Last administered on 02/10/18 13:02; Admin Dose 60 MG; Start 02/07/18 at 22:00 Cefepime HCl 50 ml @ 100 mls/hr Q12 IVPB Last administered on 02/10/18 08:50; Admin Dose 100 MLS/HR; Start 02/07/18 at 21:00 Levalbuterol (Xopenex Neb) 1.25 mg Q4H RESP THERAPY HHN Last administered on 02/10/18 12:46; Admin Dose 1.25 MG; Start 02/07/18 at 17:00 Diltiazem HCl (Cardizem) 60 mg Q8 PO Last administered on 02/10/18 13:04; Admin Dose 60 MG; Start 02/07/18 at 17:00 Atenolol (Tenormin) 25 mg BID PO Last administered on 02/10/18 08:49; Admin Dose 25 MG; Start 02/08/18 at 11:00 Apixaban (Eliquis) 5 mg BID PO ; Start 02/09/18 at 21:00; Status Hold Guaifenesin/ Dextromethorphan (Robitussin Dm Liquid Cup) 30 ml Q4H PRN PO COUGH Last administered on 02/10/18 02:48; Admin Dose 30 ML; Start 02/09/18 at 12:30 Nifedipine (Procardia Xl) 30 mg BID PO ; Start 02/10/18 at 21:00 Assessment/Plan Additional Assessment/Plan IMP: 1. Pleural Effusion 2. Right PTX 3. Chronic obstructive pulmonary disease 4. Atrial Fibrillation 5. History of cardiomyopathy RECS: 1. Small bore catheter insertion for PTX drainage in am. 2. Place on H20 seal. JOSEE MCCLOUD MD Feb 10, 2018 15:03
--- NOTE | 2018-02-10 18:00 | NUR ---
RN UPDATE REPORTED TO DR GAVIN THAT PATIENT USES ACCESORY MUSCLE TO BREATHE. VITAL SIGNS WNL. HR- 103. MD ORDERED TO INCREASE TO OXYGEN 4L AND ORDERED SOLU-MEDROL 60 MG IV X I. ORDER CARRIED OUT. WILL CONTINUE TO MONITOR.
[2018-02-10] MEDS ORDERED: METHYLPREDNISOLONE 125 MG INJ IV STA (18:02)
[2018-02-10] MEDS: DOCUSATE SODIUM 100 MG CAP PO PRN ×2 (18:03→20:07)
--- NOTE | 2018-02-10 18:31 | PN ---
Date/Time of Note Date/Time of Note DATE: 02/10/18 TIME: 18:28 Assessment/Plan VTE Prophylaxis Risk score (from Ns)>0 risk: 9 SCD applied (from Ns): Yes SCD contraindicated: other Pharmacological prophylaxis: NA/contraindicated Pharm contraindication: surgical contra Lines/Catheters [facility] [place] [facility] Urinary Cath still in place: No Assessment/Plan Hospital Course ASSESSMENT AND PLAN: This is a 77-year-old male who presented with: 1. Shortness of breath likely secondary to congestive heart failure/chronic obs tructive pulmonary disease exacerbation. 2 right-sided pneumothorax status post thoracentesis 2. Large left pleural effusion, status post thoracentesis in the past. 3. History of chronic obstructive pulmonary disease. 4. Atrial fibrillation with rapid ventricular response. 5. Hypertension. 6. EKG changes of atrial fibrillation with ST segment changes in the inferior leads. 7. History of lung cancer status post chemo and radiation.? NEW Lung met astases 8. History of coronary artery disease. 9. Pleural effusion, status post thoracentesis. 10. Elevated BNP secondary to congestive heart failure. 11. Hyponatremia. 12. History of peripheral vascular disease. 13 LEUKOCYTOSIS secondary to steroids 14 acute on chronic renal failure ? Overdiuresis Plan - small bore cathther in am - ABG and chest xRAY in am - steroids - Laix prn - monitor Cr - c w diltazema and atenolol - f/u cardiac and pul recs - hold eliquis due to procedure -IV cefepime - WILL also call oncology consultation Pt condition is guarded, spoke to him at bedside Subjective 24 Hr Interval Summary Free Text/Dictation Short of breath at times Small bore catheter insertion for PTX drainage in am. Exam/Review of Systems Vital Signs Vitals Vital Signs Date Temp Pulse Resp B/P (MAP) Pulse Ox O2 O2 Flow FiO2 Time Delivery Rate 02/10/18 81 16:21 02/10/18 28 95 Nasal 3.0 16:13 Cannula 02/10/18 97.2 113/77 15:32 (89) 02/09/18 31 19:40 Intake and Output 02/09/18 02/09/18 02/10/18 1515:00 23:00 07:00 IntakeIntake Total 900 ml 200 ml OutputOutput Total 1100 ml BalanceBalance -200 ml 200 ml Exam GENERAL: The patient is on nasla cannual , mod distress HEENT: Pupils are equal, round, reactive to light. NECK: Supple. HEART: Irregularly irregular. LUNGS: Diminished breath sounds, crackles on rt and dec on left ABDOMEN: Soft, nontender, nondistended, positive normoactive bowel sounds. EXTREMITIES: There is 1+ edema. Medications Medications Current Medications IV Flush (NS 3 ml) 3 ml PER PROTOCOL IV ; Start 02/07/18 at 16:30 Ondansetron HCl (Zofran Inj) 4 mg Q6H PRN IV NAUSEA AND/OR VOMITING; Start 02/07/18 at 16:30 Acetaminophen (Tylenol Tab) 650 mg Q6H PRN PO PAIN LEVEL 1-3 OR FEVER; Start 02/07/18 at 16:30 Docusate Sodium (Colace) 100 mg Q12H PRN PO CONSTIPATION Last administered on 02/10/18 18:03; Admin Dose 100 MG; Start 02/07/18 at 16:30 Pantoprazole (Protonix Iv) 40 mg DAILY@06 IV Last administered on 02/10/18 06:15; Admin Dose 40 MG; Start 02/08/18 at 06:00 Cefepime HCl 50 ml @ 100 mls/hr Q12 IVPB Last administered on 02/10/18 08:50; Admin Dose 100 MLS/HR; Start 02/07/18 at 21:00 Levalbuterol (Xopenex Neb) 1.25 mg Q4H RESP THERAPY HHN Last administered on 02/10/18 16:13; Admin Dose 1.25 MG; Start 02/07/18 at 17:00 Diltiazem HCl (Cardizem) 60 mg Q8 PO Last administered on 02/10/18 13:04; Admin Dose 60 MG; Start 02/07/18 at 17:00 Atenolol (Tenormin) 25 mg BID PO Last administered on 02/10/18 08:49; Admin Dose 25 MG; Start 02/08/18 at 11:00 Apixaban (Eliquis) 5 mg BID PO ; Start 02/09/18 at 21:00; Status Hold Guaifenesin/ Dextromethorphan (Robitussin Dm Liquid Cup) 30 ml Q4H PRN PO COUGH Last administered on 12/9/18at 18:11; Admin Dose 30 ML; Start 02/09/18 at 12:30 Nifedipine (Procardia Xl) 30 mg BID PO ; Start 02/10/18 at 21:00 Methylprednisolone Sodium Succinate (Solu-Medrol) 60 mg BID IV ; Start 02/10/18 at 21:00 Results Result Diagram: 02/10/18 0557 02/10/18 0558 Results 24 hrs Laboratory Tests Test 02/10/18 05:57 02/10/18 05:58 White Blood Count 18.9 H Red Blood Count 3.75 L Hemoglobin 11.8 L Hematocrit 35.7 L Mean Corpuscular Volume 95.2 Mean Corpuscular Hemoglobin 31.5 Mean Corpuscular Hemoglobin Concent 33.1 Red Cell Distribution Width 14.2 Platelet Count 286 Mean Platelet Volume 9.1 Immature Granulocytes % 0.800 H Neutrophils % 90.7 H Lymphocytes % 3.6 L Monocytes % 4.8 Eosinophils % 0.0 Basophils % 0.1 Nucleated Red Blood Cells % 0.0 Immature Granulocytes # 0.150 H Neutrophils # 17.1 H Lymphocytes # 0.7 L Monocytes # 0.9 Eosinophils # 0.0 Basophils # 0.0 Nucleated Red Blood Cells # 0.0 Phosphorus Level 4.5 Magnesium Level 2.2 Sodium Level 139 Potassium Level 4.4 Chloride Level 102 Carbon Dioxide Level 24 Anion Gap 13 Blood Urea Nitrogen 45 #H Creatinine 1.75 H Est Glomerular Filtrat Rate mL/min Glucose Level 146 Calcium Level 9.1 FIDEL GAVIN MD Feb 10, 2018 18:31
[2018-02-10] MEDS: NIFEdipine (XL) 30 MG TAB PO SCH (20:07)
[2018-02-10] MEDS ORDERED: FUROSEMIDE 40 MG INJ IV ONE (22:30)
--- NOTE | 2018-02-10 22:32 | NUR ---
RN notes: Pt with SOB at rest, on 4L NC, O2 Sat 97%, increased work of breathing, using accessory muscles. Called Dr. Roberson and received orders to for IV Lasix and transfer to ICU. Dr. Guajardo ordered for pt to have a non-rebreather mask, no titration and CXR tomorrow.
--- NOTE | 2018-02-10 22:50 | NUR ---
received patient from tele. СЕРГЕЙ suero arrived with patient and gave report at bedside. received patient on none rebreather, 20g left forearm, patient alert and oriented x 3. pt in controlled a fib, sating 100%.
--- NOTE | 2018-02-10 23:44 | NUR ---
pt sob, audible wheezing, very restless, using accessary muscles to breathing. paged dr. ly who is oncall for dr. locke
--- NOTE | 2018-02-10 23:55 | NUR ---
received a call back from dr. ly. she gave orders for prn ativan and xopenex. she will attempt to see if ER md will put in a chest tube. abg and chest xray ordered.
[2018-02-10] MEDS ORDERED: LORAZEPAM 2 MG INJ ONE (23:59)
[2018-02-11] VITALS (43 sets, daily range): BP systolic 95–141; BP diastolic 51–108; PULSE 70–118; RESP 15–33
[2018-02-11] MEDS ORDERED: LEVALBUTEROL (NEB) 1.25 MG/0.5 ML AMP HHN PRN
[2018-02-11] MEDS ORDERED: LORAZEPAM 2 MG INJ IV ONE
--- NOTE | 2018-02-11 00:05 | NUR ---
received a call from dr. ly, she stated she called the ER doctor to come and eval the patient for possible chest tube insertion or intubation.
[2018-02-11] MEDS ORDERED: PROPOFOL 100 ML ONE (00:23)
[2018-02-11] MEDS: PROPOFOL 100 ML IV SCH ×4 (00:46→18:13)
[2018-02-11] MEDS: LEVALBUTEROL (NEB) 1.25 MG/0.5 ML AMP HHN SCH ×3 (01:07→09:00)
--- NOTE | 2018-02-11 01:33 | NUR ---
0020- patient was intubated at bedside by ER dr. brooks. 20mg etomidate, 100mg of succinylcholine given. stat xray placed. 0028- chest tube was placed. ng tube was placed. unable to place yañez cath due to resistance. placed condom cath instead. xray was taken to confirm all tubes and placements. awaiting results.
--- NOTE | 2018-02-11 02:40 | NUR ---
received xray results, 3cm advance recommended, RT notified. ETT is now at 25cm. xray ordered.
--- NOTE | 2018-02-11 05:10 | EN ---
Date/Time of Note Date/Time of Note DATE: 02/11/18 TIME: 05:08 ER Progress Note I was called to evaluate this patient apparently has had a pneumothorax for greater than 24 hours post thoracentesis. Upon arrival to the patient is having difficulty breathing, has altered mental status. At this point the decision was made to intubate the patient and place a chest tube. Endotracheal Intubation by me: Pre assessment performed. See preceding note for details. Pre-oxygenation performed with 100% oxygen RSI: Performed w/o complication or hypoxic events. Medications as ordered. Blade: [Mac 4] ET Tube: 7.5 cm Depth: 23 cm at the lip Intubation confirmed by colorimetric CO2, equal breath sounds, quiet over the stomach. Chest X-ray 1V Interpreted by me: 2 cm above the ben ET tube. Normal soft tissue, No pneumothorax. Chest Tube Placement by me: Patient consented, sterilely draped, full prep, gown, glove, mask, time out pe rformed. Anesthesia: 1% lidocaine locally Location: Mid-Anterior Axillary Line, approximate 5th intercostal Device: 32 Irish chest tube Technique: Vertical incision, blunt dissection above the superior rib border, tactile confirmation Results: Chest tube fogging Secured with suture and taping. No complications. Attached to [facility]. Chest X-ray 1V Interpreted by me: , chest tube in pleural space facing cephalad. Normal soft tissue. ANA ROSA SWEENEY Feb 11, 2018 05:10
[2018-02-11] MEDS: PANTOPRAZOLE 40 MG INJ IV SCH (05:45)
[2018-02-11] MEDS: DILTIAZEM 60 MG TAB PO SCH ×3 (06:00→22:01)
--- NOTE | 2018-02-11 06:27 | NUR ---
end of shift report pt is response to stimuli, attemps to reach for the ett requiring mitten restraints. ng, ett and chest tube confirmed in place. 380ml out of chest tube. yañez placed by willem. 75ml urine out at first. good urine output. pt on prop at 36mcg. repositioned q2hrs and prn, mouth care t0hvolt provided. pts vent settings are: ac 18/450/40%/5.
[2018-02-11] MEDS ORDERED: SUCCINYLCHOLINE CHLORIDE 100 MG/5 ML SYG IV ONE (07:00)
[2018-02-11] MEDS ORDERED: ETOMIDATE 20 MG INJ ONE (07:00)
[2018-02-11] MEDS: METHYLPREDNISOLONE 125 MG INJ IV SCH ×2 (08:57→20:49)
[2018-02-11] MEDS: CEFEPIME 1GM/50 ML (PMX) 50 ML IVPB SCH ×2 (08:57→20:18)
[2018-02-11] MEDS: NIFEdipine (XL) 30 MG TAB PO SCH (08:58)
[2018-02-11] MEDS: ATENOLOL 25 MG TAB PO SCH ×2 (08:59→20:18)
--- NOTE | 2018-02-11 09:26 | CONS ---
DATE OF ADMISSION: 02/07/2018 DATE OF CONSULTATION: 02/08/2018 TYPE OF CONSULTATION: Cardiology. REFERRING PHYSICIAN: Fidel Roberson MD REASON FOR EVALUATION: Atrial fibrillation, history of hypertension. HISTORY OF PRESENT ILLNESS: Mr. Nielsen is a 77-year-old gentleman known from prior admissions, histo ry of atrial fibrillation, chronic, history of heart failure with ejection fraction 35% to 40%, hyper tension, COPD, history of lung cancer, pneumonia with effusion who comes to the hospital now for eval uation of shortness of breath. Patient has reaccumulation of his pleural effusion. He is on BiPAP r ight now for respiratory. He is also in atrial fibrillation with borderline rapid ventricular respon se, currently in the 90s. I have been asked to see patient because he has atrial fibrillation. I th ink for now, conservative therapy is expected given underlying issues as described. We will try to r ate control as best as tolerated. The patient has been on Eliquis 2.5 100 b.i.d. prior. I think it is reasonable to continue him as needed for thoracocentesis. PAST MEDICAL HISTORY: 1. Hypertension. 2. History of COPD, history of CHF with ejection of 35. 3. Chronic atrial fibrillation. 4. Eliquis left pleural effusion. 5. Pneumonia. 6. History of CVA. 7. History of . ALLERGIES: No known drug allergies. SOCIAL HISTORY: The patient has a history of tobacco use, but does smoke and . FAMILY HISTORY: Negative for sudden cardiac . There is history of diabetes in the family. MEDICATIONS: At home include: 1. Lasix 40 mg. 2. Atrovent 2.5 . 3. Atenolol 50 mg p.o. b.i.d. 4. Diltiazem . 5. Aspirin 81. 6. Bupropion. 7. . REVIEW OF SYSTEMS CONSTITUTIONAL: No fevers, but some chills and recent onset of shortness of breath. HEENT: No changes in vision or hearing. CARDIAC: No chest pain reported. RESPIRATORY: Short of breath, acute on chronic. GASTROINTESTINAL: No nausea, vomiting. GENITOURINARY: No change. NEUROLOGIC: History of cerebrovascular accident. PSYCHIATRIC: History of some depression and anxiety. PHYSICAL EXAMINATION: VITAL SIGNS: Temperature is 98.0, heart rate is 105 to 90s in atrial fibrillation, blood pressure 12 4/81. GENERAL: He is a thin gentleman in no acute distress, alert and oriented x1 to 2, somewhat aware of his condition. HEAD: Normocephalic. On BiPAP mask. NECK: Supple. JVD 6-7 cm. HEART: Irregularly irregular with soft holosystolic murmur. LUNGS: Coarse with decreased sounds at the base. ABDOMEN: Distended, bowel sounds are present. There is no hepatosplenomegaly. GENITOURINARY: Intact. EXTREMITIES: No clubbing, cyanosis, or edema. LABORATORY DATA: , hemoglobin 10.8, platelets 295. His INR is 1.25. Sodium 135, potassium 3.4 . His BUN is 27, creatinine 1.39. Troponin negative at 0.012. ASSESSMENT AND PLAN: 1. Atrial fibrillation. The patient in atrial fibrillation, chronic. Continue medical optimization as noted. The rate is better right now. I think he will get better control when his pulmonary issu es are resolved. 2. Pleural effusion. Patient with large pleural effusion. Positive low sodium and thoracocentesis being considered. 3. . Patient on Eliquis 2.5 mg b.i.d. at home, which is reasonable therapy. This is being he ld now because of possibility of the procedure. 5. Congestive heart failure. Continue gentle diuresis. Patient is on Lasix now. 6. Anemia. Hemoglobin is fairly stable, no evidence of bleeding at the moment. Renal insufficiency . Creatinine is increased to 1.39. Continue to monitor closely. 7. Chest pain. The patient did not rule in for ischemia. Troponins are negative. We will adjust m edications as needed. I would like to thank Dr. Roberson for referring this patient for my evaluation. Dictated By: EMILY SANTAMARIA MD ML/NTS Conf#: [id number] DID#: [id number] CC: FIDEL ROBERSON;*EndCC*
--- NOTE | 2018-02-11 10:10 | CONS ---
Date/Time of Note Date/Time of Note DATE: 02/11/18 TIME: 10:03 Assessment/Plan Assessment/Plan Chief Complaint/Hosp Course IMP: 1.AF-rate controlled 2.CHF-diastolic acute on chronic 3.HTN-reasonable control 4.Pleural effusion s/p thoracentesis c/b PTX now s/p CT 5. Renal failure 6. Leukocytosis 7. anemia Recc: -ICU -Continue atenolol/dilt -resume eliquis if ok s/p CT/thoracentesis -Continue steroids/abx/bronchodilators -Follow CT output closely Consultation Date/Type/Reason Admit Date/Time Feb 07, 2018 at 13:54 Initial Consult Date 02/07/18 Type of Consult cardiology Reason for Consultation AF Requesting Provider: FIDEL GAVIN MD Exam/Review of Systems Vital Signs Vitals Vital Signs Date Temp Pulse Resp B/P (MAP) Pulse Ox O2 O2 Flow FiO2 Time Delivery Rate 02/11/18 86 08:00 02/11/18 33 118/55 99 06:00 (76) 02/11/18 40 05:12 02/11/18 98.3 Mechanical 04:00 Ventilator 02/10/18 15.0 22:55 Intake and Output 02/10/18 02/10/18 02/11/18 1515:00 23:00 07:00 IntakeIntake Total 50 ml 350 ml 52.681 ml OutputOutput Total 1200 ml 705 ml BalanceBalance 50 ml -850 ml -652.319 ml Exam Review of Systems: CONSTITUTIONAL: No fevers, chills. PULMONARY: intubated CARDIOVASCULAR: No chest pain/palpitations GASTROINTESTINAL: No nausea/vomiting. GENITOURINARY: No hematuria/dysuria. MUSCULOSKELETAL: No myagias/arthalgias. PSYCHIATRIC: The patient denies depression. NEUROLOGIC: No weakness Constitutional: other (sedated) Psych: no complaints Head: normocephalic ENMT: mucosa pink and moist Neck: supple, jvd (9 cmn water) Respiratory: diminished breath sounds (at bases/B) Cardiovascular: irregular rhythm Gastrointestinal: soft, non-tender Musculoskeletal: muscle tone (normal) Extremities: edema (none) 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: other (sedated) Medications Medications Current Medications IV Flush (NS 3 ml) 3 ml PER PROTOCOL IV ; Start 02/07/18 at 16:30 Ondansetron HCl (Zofran Inj) 4 mg Q6H PRN IV NAUSEA AND/OR VOMITING; Start 02/07/18 at 16:30 Acetaminophen (Tylenol Tab) 650 mg Q6H PRN PO PAIN LEVEL 1-3 OR FEVER; Start 02/07/18 at 16:30 Docusate Sodium (Colace) 100 mg Q12H PRN PO CONSTIPATION Last administered on 02/10/18at 20:07; Admin Dose 100 MG; Start 02/07/18 at 16:30 Pantoprazole (Protonix Iv) 40 mg DAILY@06 IV Last administered on 02/11/18at 05:45; Admin Dose 40 MG; Start 02/08/18 at 06:00 Cefepime HCl 50 ml @ 100 mls/hr Q12 IVPB Last administered on 02/11/18 08:57; Admin Dose 100 MLS/HR; Start 02/07/18 at 21:00 Diltiazem HCl (Cardizem) 60 mg Q8 PO Last administered on 02/10/18at 22:11; Admin Dose 60 MG; Start 02/07/18 at 17:00 Atenolol (Tenormin) 25 mg BID PO Last administered on 02/11/18at 08:59; Admin Dose 25 MG; Start 02/08/18 at 11:00 Apixaban (Eliquis) 5 mg BID PO ; Start 02/09/18 at 21:00; Status Hold Guaifenesin/ Dextromethorphan (Robitussin Dm Liquid Cup) 30 ml Q4H PRN PO COUGH Last administered on 02/10/18at 18:11; Admin Dose 30 ML; Start 02/09/18 at 12:30 Nifedipine (Procardia Xl) 30 mg BID PO Last administered on 02/10/18at 20:07; Admin Dose 30 MG; Start 02/10/18 at 21:00 Methylprednisolone Sodium Succinate (Solu-Medrol) 60 mg BID IV Last administered on 02/11/18at 08:57; Admin Dose 60 MG; Start 02/10/18 at 21:00 Levalbuterol (Xopenex Neb) 1.25 mg Q4H RESP THERAPY PRN HHN wheezing; Start 02/11/18 at 00:00 Propofol 100 ml @ 2.373 mls/ hr Q12H IV Last administered on 02/11/18at 05:45; Admin Dose 17.086 MLS/HR; Start 02/11/18 at 00:30 Levalbuterol (Xopenex Hfa) 2 puff Q6 INH ; Start 02/11/18 at 14:00 Results Result Diagram: 02/10/18 0557 02/11/18 0439 Results 24 hrs Laboratory Tests Test 02/10/18 23:38 02/11/18 01:51 02/11/18 04:39 02/11/18 08:00 Blood Gas Blood arterial Blood Blood Specimen arterial arterial Source Arterial Blood 02/10/2018 11:40 02/11/2018 1:4 02/11/2018 8:2 Date Drawn :19 PM 5:12 AM 5:26 AM Arterial Blood 7.289 *L 7.370 7.428 pH (Temp corrected ) Arterial Blood 45.0 37.3 38.2 pCO2 (Temp correct) Arterial Blood 134.5 H 428.0 H 138.7 H pO2 (Temp corrected ) Arterial Blood 21.1 L 21.1 L 24.7 HCO3 Arterial Blood -5.4 L -3.7 L 0.5 Base Excess Arterial Blood 98.2 99.7 98.6 Oxygen Saturati on Harshad Test ACCEPTAB N/A ACCEPTAB Arterial Blood Right Radial Right Radial Right Radial Gas Puncture Site Arterial 0.3 0.3 0.3 Blood Carboxyhe moglobin Arterial Blood 0.3 0.3 0.2 Methemoglobin Blood Gas A-a 533.5 H 247.7 H 102.6 H O2 Differential Oxyhemoglobin 97.6 99.1 H 98.1 Percent Blood Gas 37.0 37.0 37.0 Temperature Blood Gas MASK - NRB VENT - AC VENT - AC Modality FiO2 100.0 100.0 40.0 Blood Gas A KASIE RUSHING Critical Value Read Back Blood Gas UP S.H. TM Notified Whom Blood Gas 02/10/2018 11:49 02/11/2018 1:5 02/11/2018 8:5 Notified Time :20 PM 6:26 AM 2:06 AM Blood Gas 18.0 18.0 Respiration Rate Blood Gas 19 18 Actual Respiration Rat e Blood Gas Tidal 450.0 450.0 Volume Blood Gas Low 5.0 5.0 PEEP Setting Sodium Level 138 Potassium Level 4.4 Chloride Level 104 Carbon Dioxide 25 Level Anion Gap 9 Blood Urea 53 H Nitrogen Creatinine 1.83 H Est Glomerular Filtrat Rate mL/min Glucose Level 205 Calcium Level 8.9 CECE LOPEZ Feb 11, 2018 10:10
--- NOTE | 2018-02-11 10:52 | CONS ---
Date/Time of Note Date/Time of Note DATE: 02/11/18 TIME: 10:50 Consult Date/Type/Reason Admit Date/Time Feb 07, 2018 at 13:54 Initial Consult Date Type of Consultation: Pulm Requesting Provider: FIDEL GAVIN MD Subjective Patient had desaturation bradycardia overnight. Requiring emergent intubation and right chest tube placement. Since that time he remains on mechanical ventilation intubated sedated appears comfortable at rest. Chest x-ray shows reexpansion of right lung. Small pneumothorax still present. Objective Vital Signs Date Temp Pulse Resp B/P (MAP) Pulse Ox O2 O2 Flow FiO2 Time Delivery Rate 02/11/18 89 21 122/70 98 Mechanical 10:30 (87) Ventilator 02/11/18 40 08:00 02/11/18 97.7 08:00 02/10/18 15.0 22:55 Intake and Output 02/10/18 02/10/18 02/11/18 1414:59 22:59 06:59 IntakeIntake Total 50 ml 350 ml 52.681 ml OutputOutput Total 1200 ml 705 ml BalanceBalance 50 ml -850 ml -652.319 ml Exam GENERAL: Well-nourished well-developed gentleman intubated on mechanical ventilation VITAL SIGNS: per chart NECK: Supple. No JVD or lymphadenopathy. CARDIAC EXAM: S1, S2. No added sounds or murmurs. CHEST: Diminished air entry both bases. ABDOMEN: Soft, nontender. No guarding or rebound. EXTREMITIES: No cyanosis, clubbing or edema. NEUROLOGIC: Generalized weakness. No focal deficits. Results/Medications Result Diagram: 02/10/18 0557 02/11/18 0439 Results 24 hrs Laboratory Tests Test 02/10/18 23:38 02/11/18 01:51 02/11/18 04:39 02/11/18 08:00 Blood Gas Blood arterial Blood Blood Specimen arterial arterial Source Arterial Blood 02/10/2018 11:40 02/11/2018 1:4 02/11/2018 8:2 Date Drawn :19 PM 5:12 AM 5:26 AM Arterial Blood 7.289 *L 7.370 7.428 pH (Temp corrected ) Arterial Blood 45.0 37.3 38.2 pCO2 (Temp correct) Arterial Blood 134.5 H 428.0 H 138.7 H pO2 (Temp corrected ) Arterial Blood 21.1 L 21.1 L 24.7 HCO3 Arterial Blood -5.4 L -3.7 L 0.5 Base Excess Arterial Blood 98.2 99.7 98.6 Oxygen Saturati on Harshad Test ACCEPTAB N/A ACCEPTAB Arterial Blood Right Radial Right Radial Right Radial Gas Puncture Site Arterial 0.3 0.3 0.3 Blood Carboxyhe moglobin Arterial Blood 0.3 0.3 0.2 Methemoglobin Blood Gas A-a 533.5 H 247.7 H 102.6 H O2 Differential Oxyhemoglobin 97.6 99.1 H 98.1 Percent Blood Gas 37.0 37.0 37.0 Temperature Blood Gas MASK - NRB VENT - AC VENT - AC Modality FiO2 100.0 100.0 40.0 Blood Gas A KASIE RUSHING Critical Value Read Back Blood Gas UP S.H. TM Notified Whom Blood Gas 02/10/2018 11:49 02/11/2018 1:5 02/11/2018 8:5 Notified Time :20 PM 6:26 AM 2:06 AM Blood Gas 18.0 18.0 Respiration Rate Blood Gas 19 18 Actual Respiration Rat e Blood Gas Tidal 450.0 450.0 Volume Blood Gas Low 5.0 5.0 PEEP Setting Sodium Level 138 Potassium Level 4.4 Chloride Level 104 Carbon Dioxide 25 Level Anion Gap 9 Blood Urea 53 H Nitrogen Creatinine 1.83 H Est Glomerular Filtrat Rate mL/min Glucose Level 205 Calcium Level 8.9 Medications Current Medications IV Flush (NS 3 ml) 3 ml PER PROTOCOL IV ; Start 02/07/18 at 16:30 Ondansetron HCl (Zofran Inj) 4 mg Q6H PRN IV NAUSEA AND/OR VOMITING; Start 02/07/18 at 16:30 Acetaminophen (Tylenol Tab) 650 mg Q6H PRN PO PAIN LEVEL 1-3 OR FEVER; Start 02/07/18 at 16:30 Docusate Sodium (Colace) 100 mg Q12H PRN PO CONSTIPATION Last administered on 02/10/18at 20:07; Admin Dose 100 MG; Start 02/07/18 at 16:30 Pantoprazole (Protonix Iv) 40 mg DAILY@06 IV Last administered on 02/11/18at 05:45; Admin Dose 40 MG; Start 02/08/18 at 06:00 Cefepime HCl 50 ml @ 100 mls/hr Q12 IVPB Last administered on 02/11/18at 08:57; Admin Dose 100 MLS/HR; Start 02/07/18 at 21:00 Diltiazem HCl (Cardizem) 60 mg Q8 PO Last administered on 02/10/18at 22:11; Admin Dose 60 MG; Start 02/07/18 at 17:00 Atenolol (Tenormin) 25 mg BID PO Last administered on 02/11/18at 08:59; Admin Dose 25 MG; Start 02/08/18 at 11:00 Apixaban (Eliquis) 5 mg BID PO ; Start 02/09/18 at 21:00; Status Hold Guaifenesin/ Dextromethorphan (Robitussin Dm Liquid Cup) 30 ml Q4H PRN PO COUGH Last administered on 02/10/18at 18:11; Admin Dose 30 ML; Start 02/09/18 at 12:30 Methylprednisolone Sodium Succinate (Solu-Medrol) 60 mg BID IV Last administered on 02/11/18at 08:57; Admin Dose 60 MG; Start 02/10/18 at 21:00 Levalbuterol (Xopenex Neb) 1.25 mg Q4H RESP THERAPY PRN HHN wheezing; Start 02/11/18 at 00:00 Propofol 100 ml @ 2.373 mls/ hr Q12H IV Last administered on 02/11/18at 05:45; Admin Dose 17.086 MLS/HR; Start 02/11/18 at 00:30 Levalbuterol (Xopenex Hfa) 2 puff Q6 INH ; Start 02/11/18 at 14:00 Hydralazine HCl (Apresoline) 10 mg Q4H PRN IV SBP>170; Start 02/11/18 at 10:30 Miscellaneous Information (* Miscellaneous Pharmacy Order) Discontinue current oral sulfonylur... ONCE ONCE XX ; Start 02/11/18 at 11:00; Stop 02/11/18 at 11:01 Diagnostic Test (Pha) (Accu-Chek) 1 ea 02 XX ; Start 02/12/18 at 02:00 Miscellaneous Information (* Miscellaneous Pharmacy Order) HYPOGLYCEMIA PROTOCOL w... ONCE ONCE XX ; Start 02/11/18 at 11:00; Stop 02/11/18 at 11:01 Insulin Aspart (Novolog Insulin Pen) NOVOLOG *MODERATE* ALGORITHM WITH MEALS BEDTIME SC ; Start 02/11/18 at 11:30 Miscellaneous Information (* Miscellaneous Pharmacy Order) Discontinue all previ... ONCE ONCE XX ; Start 02/11/18 at 11:00; Stop 02/11/18 at 11:01 Assessment/Plan Chief Complaint/Hosp Course Assessment 1. Iatrogenic pneumothorax now status post chest tube placement following worsening hypoxemic respiratory failure 2. Loculated left pleural effusion 3. History of atrial fibrillation 4. History of cardiomyopathy 5. History of COPD 6. Renal insufficiency Plan 1. Continue chest tube to suction 2. Cardiothoracic surgery evaluation 3. Continue low-sodium antibiotics 4. Renal recommendations 5. Start tube feeding Prognosis remains guarded critical care time 40 minutes AISHWARYA PICKARD MD, [facility] Feb 11, 2018 10:52
[2018-02-11] MEDS ORDERED: GLUCOSE GEL 15 GRAM TUBE BUCCAL PRN (11:00)
[2018-02-11] MEDS ORDERED: DEXTROSE 50% 50 ML SYRINGE IV PRN ×2 (11:00)
[2018-02-11] MEDS ORDERED: GLUCOSE GEL 15 GRAM TUBE PO PRN ×2 (11:00)
[2018-02-11] MEDS ORDERED: GLUCAGON 1 MG INJ IM PRN (11:00)
--- NOTE | 2018-02-11 11:09 | PN ---
Date/Time of Note Date/Time of Note DATE: 02/11/18 TIME: 11:04 Assessment/Plan VTE Prophylaxis Risk score (from [facility] [place])>0 risk: 9 SCD applied (from [facility] [place]): Yes Pharmacological prophylaxis: NA/contraindicated Pharm contraindication: surgical contra Lines/Catheters IV Catheter Type (from [facility] Peripheral IV Urinary Cath still in place: Yes Reason Cath still needed: urinary retention Assessment/Plan Hospital Course ASSESSMENT AND PLAN: This is a 77-year-old male who presented with: # Respiratory failure status post intubation on 1211 #. Shortness of breath likely secondary to congestive heart failure/chronic obstructive pulmonary disease exacerbation. # right-sided pneumothorax status post thoracentesis, now with chest tube # Large left pleural effusion, status post thoracentesis in the past. # History of chronic obstructive pulmonary disease. #. Atrial fibrillation with rapid ventricular response.controlled #. Hypertension. # EKG changes of atrial fibrillation with ST segment changes in the inferior leads. # History of lung cancer status post chemo and radiation.? NEW Lung metastases # History of coronary artery disease. #. Pleural effusion, status post thoracentesis. # Elevated BNP secondary to congestive heart failure. #. Hyponatremia. # History of peripheral vascular disease. # LEUKOCYTOSIS secondary to steroids # acute on chronic renal failure ? Overdiuresis, and uptrending continue to monitor urine monitor creatinine Plan -Status post intubation -Chest tube placement will call Dr. Joseph Avendano for management - monitor Cr, monitor urine output - cw with steroids insulin sliding scale - c w diltazem and atenolol - f/u cardiac and pul recs - hold eliquis due to procedure -IV cefepime - WILL also call oncology consultation -Vent management per pulmonary Subjective 24 Hr Interval Summary Free Text/Dictation Patient emergently got transferred to ICU due to severe respiratory distress and got intubated and had chest tube placement by ER physician Currently has chest tube Is on FiO2 30% Exam/Review of Systems Vital Signs Vitals Vital Signs Date Temp Pulse Resp B/P (MAP) Pulse Ox O2 O2 Flow FiO2 Time Delivery Rate 02/11/18 89 21 122/70 98 Mechanical 10:30 (87) Ventilator 02/11/18 40 08:00 02/11/18 97.7 08:00 02/10/18 15.0 22:55 Intake and Output 02/10/18 02/10/1818 1515:00 23:00 07:00 IntakeIntake Total 50 ml 350 ml 69.681 ml OutputOutput Total 1200 ml 705 ml BalanceBalance 50 ml -850 ml -635.319 ml Exam GENERAL: Intubated HEENT: Pupils are equal, round, reactive to light. NECK: Supple. HEART: Irregularly irregular. LUNGS: Diminished breath sounds, crackles on rt and dec on left ABDOMEN: Soft, nontender, nondistended, positive normoactive bowel sounds. EXTREMITIES: There is 1+ edema. Chest tube on the right Medications Medications Current Medications IV Flush (NS 3 ml) 3 ml PER PROTOCOL IV ; Start 02/07/18 at 16:30 Ondansetron HCl (Zofran Inj) 4 mg Q6H PRN IV NAUSEA AND/OR VOMITING; Start 02/07/18 at 16:30 Acetaminophen (Tylenol Tab) 650 mg Q6H PRN PO PAIN LEVEL 1-3 OR FEVER; Start 02/07/18 at 16:30 Docusate Sodium (Colace) 100 mg Q12H PRN PO CONSTIPATION Last administered on 02/10/18at 20:07; Admin Dose 100 MG; Start 02/07/18 at 16:30 Pantoprazole (Protonix Iv) 40 mg DAILY@06 IV Last administered on 02/11/18at 05:45; Admin Dose 40 MG; Start 02/08/18 at 06:00 Cefepime HCl 50 ml @ 100 mls/hr Q12 IVPB Last administered on 02/11/18at 08:57; Admin Dose 100 MLS/HR; Start 02/07/18 at 21:00 Diltiazem HCl (Cardizem) 60 mg Q8 PO Last administered on 02/10/18at 22:11; Admin Dose 60 MG; Start 02/07/18 at 17:00 Atenolol (Tenormin) 25 mg BID PO Last administered on 02/11/18at 08:59; Admin Dose 25 MG; Start 02/08/18 at 11:00 Apixaban (Eliquis) 5 mg BID PO ; Start 02/09/18 at 21:00; Status Hold Guaifenesin/ Dextromethorphan (Robitussin Dm Liquid Cup) 30 ml Q4H PRN PO COUGH Last administered on 02/10/18at 18:11; Admin Dose 30 ML; Start 02/09/18 at 12:30 Methylprednisolone Sodium Succinate (Solu-Medrol) 60 mg BID IV Last administered on 02/11/18at 08:57; Admin Dose 60 MG; Start 02/10/18 at 21:00 Levalbuterol (Xopenex Neb) 1.25 mg Q4H RESP THERAPY PRN HHN wheezing; Start 02/11/18 at 00:00 Propofol 100 ml @ 2.373 mls/ hr Q12H IV Last administered on 02/11/18at 05:45; Admin Dose 17.086 MLS/HR; Start 02/11/18 at 00:30 Levalbuterol (Xopenex Hfa) 2 puff Q6 INH ; Start 02/11/18 at 14:00 Hydralazine HCl (Apresoline) 10 mg Q4H PRN IV SBP>170; Start 02/11/18 at 10:30 Diagnostic Test (Pha) (Accu-Chek) 1 ea 02 XX ; Start 02/12/18 at 02:00 Insulin Aspart (Novolog Insulin Pen) NOVOLOG *MODERATE* ALGORITHM WITH MEALS BEDTIME SC ; Start 02/11/18 at 11:30 Miscellaneous Information 1 ea NOTE XX ; Start 02/11/18 at 11:00 Glucose (Glutose) 15 gm Q15M PRN PO DECREASED GLUCOSE; Start 02/11/18 at 11:00 Glucose (Glutose) 22.5 gm Q15M PRN PO DECREASED GLUCOSE; Start 02/11/18 at 11:00 Dextrose (D50w Syringe) 25 ml Q15M PRN IV DECREASED GLUCOSE; Start 02/11/18 at 11:00 Dextrose (D50w Syringe) 50 ml Q15M PRN IV DECREASED GLUCOSE; Start 02/11/18 at 11:00 Glucagon (Glucagen) 1 mg Q15M PRN IM DECREASED GLUCOSE; Start 02/11/18 at 11:00 Glucose (Glutose) 15 gm Q15M PRN BUCCAL DECREASED GLUCOSE; Start 02/11/18 at 11:00 Miscellaneous Information (* Miscellaneous Pharmacy Order) Discontinue current oral sulfonylur... ONCE ONCE XX ; Start 02/11/18 at 11:00; Stop 02/11/18 at 11:01; Status UNV Diagnostic Test (Pha) (Accu-Chek) 1 ea 02 XX ; Start 02/12/18 at 02:00; Status UNV Miscellaneous Information (* Miscellaneous Pharmacy Order) HYPOGLYCEMIA PROTOCOL w... ONCE ONCE XX ; Start 02/11/18 at 11:00; Stop 02/11/18 at 11:01; Status UNV Insulin Aspart (Novolog Insulin Pen) NOVOLOG *MILD* ALGORITHM WITH MEALS BEDTIME SC ; Start 02/11/18 at 11:30; Status UNV Miscellaneous Information (* Miscellaneous Pharmacy Order) Discontinue all previ... ONCE ONCE XX ; Start 02/11/18 at 11:00; Stop 02/11/18 at 11:01; Status UNV Results Result Diagram: 02/10/18 0557 02/11/18 0439 Results 24 hrs Laboratory Tests Test 02/10/18 23:38 02/11/18 01:51 02/11/18 04:39 02/11/18 08:00 Blood Gas Blood arterial Blood Blood Specimen arterial arterial Source Arterial Blood 02/10/2018 11:40 02/11/2018 1:4 02/11/2018 8:2 Date Drawn :19 PM 5:12 AM 5:26 AM Arterial Blood 7.289 *L 7.370 7.428 pH (Temp corrected ) Arterial Blood 45.0 37.3 38.2 pCO2 (Temp correct) Arterial Blood 134.5 H 428.0 H 138.7 H pO2 (Temp corrected ) Arterial Blood 21.1 L 21.1 L 24.7 HCO3 Arterial Blood -5.4 L -3.7 L 0.5 Base Excess Arterial Blood 98.2 99.7 98.6 Oxygen Saturati on Harshad Test ACCEPTAB N/A ACCEPTAB Arterial Blood Right Radial Right Radial Right Radial Gas Puncture Site Arterial 0.3 0.3 0.3 Blood Carboxyhe moglobin Arterial Blood 0.3 0.3 0.2 Methemoglobin Blood Gas A-a 533.5 H 247.7 H 102.6 H O2 Differential Oxyhemoglobin 97.6 99.1 H 98.1 Percent Blood Gas 37.0 37.0 37.0 Temperature Blood Gas MASK - NRB VENT - AC VENT - AC Modality FiO2 100.0 100.0 40.0 Blood Gas A KASIE RUSHING Critical Value Read Back Blood Gas UP S.H. TM Notified Whom Blood Gas 02/10/2018 11:49 02/11/2018 1:5 02/11/2018 8:5 Notified Time :20 PM 6:26 AM 2:06 AM Blood Gas 18.0 18.0 Respiration Rate Blood Gas 19 18 Actual Respiration Rat e Blood Gas Tidal 450.0 450.0 Volume Blood Gas Low 5.0 5.0 PEEP Setting Sodium Level 138 Potassium Level 4.4 Chloride Level 104 Carbon Dioxide 25 Level Anion Gap 9 Blood Urea 53 H Nitrogen Creatinine 1.83 H Est Glomerular Filtrat Rate mL/min Glucose Level 205 Calcium Level 8.9 FIDEL GAVIN MD Feb 11, 2018 11:09
[2018-02-11] MEDS ORDERED: INSULIN ASPART [NOVOLOG] 3 ML PEN SC SCH (11:30)
[2018-02-11] MEDS: INSULIN ASPART [NOVOLOG] 3 ML PEN SC SCH ×3 (12:48→20:51)
[2018-02-11] MEDS ORDERED: LEVALBUTEROL (HFA) 15 GM INHALER INH SCH (14:00)
--- NOTE | 2018-02-11 14:13 | CONS ---
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 Now with pleural effusion s/p thoracentesis, complicated by PTX and now with chest tube and intubated -f/u cytology on pleural effusion -when he is more stable, check CT chest with contrast -mild leukocytosis likely reactive -mild anemia, suspect due to anemia of chronic disease, check iron, B12, folate -once he is more stable and he can have CT chest with contrast will better ne able to assess if he has disease recurrence cont current care per ICU for now Consultation Date/Type/Reason Admit Date/Time Feb 07, 2018 at 13:54 Hx of Present Illness This is a 77-year-old male with a past medical history of COPD, CAD, history of lung cancer status post radiation to a solitary nodule back in 2012. At this point I do not know who his primary oncologist is. Also has AFib, CHF with EF of 35% to 40%, history of CVA, history of carotid endarterectomy, presented to the emergency department complaining of shortness of breath for past 1 week. He has undergone CXR showing right pleural effusion. He had thoracentesis with drainage of 625cc fluid. Unfortunately he suffered a pneumothorax and is now intubated, He has Chest tube in and is in ICU. HE HAD ct CHEST DONE THIS ADMISSION SHOWING: Moderate right-sided pneumothorax as seen on the prior chest x-ray. Moderate bilateral pleural effusions. Mild left-sided pleural thickening may represent changes of chronic inflammation or infection. Previously observed left lobe mass not well visualized, possibly obscured by atelectasis. New/enlarged ground-glass nodules within the right upper lobe may represent new primary lung cancers or metastatic disease. Passive atelectasis and consolidations in the bilateral lower lobes and left upper lobe. Follow-up imaging of the chest following resolution of the pneumothorax and pleural effusion is recommended to assess for other underlying parenchymal abnormalities which may be obscured on this examination. Subjective hx not possible: pt non-verbal, pt critical Constitutional: no complaints, improved Past Surgical History Past Surgical Hx: coronary bypass surgery Social History Smoking Status: Current every day smoker Exam/Review of Systems Vital Signs Vitals Vital Signs Date Temp Pulse Resp B/P (MAP) Pulse Ox O2 O2 Flow FiO2 Time Delivery Rate 02/11/18 97 12:00 02/11/18 21 122/70 98 Mechanical 10:30 (87) Ventilator 02/11/18 40 08:00 02/11/18 97.7 08:00 02/10/18 15.0 22:55 Intake and Output 02/10/18 02/10/18 02/11/18 1414:59 22:59 06:59 IntakeIntake Total 50 ml 350 ml 52.681 ml OutputOutput Total 1200 ml 705 ml BalanceBalance 50 ml -850 ml -652.319 ml Exam Constitutional: frail Psych: no complaints, nl mood/affect Head: normocephalic, atraumatic ENMT: intubated Neck: supple, non-tender Respiratory: diminished breath sounds Cardiovascular: regular rate and rhythm, nl pulses Gastrointestinal: soft, nl liver, spleen, non-tender Musculoskeletal: nl extremities to inspection, nl gait and stance Extremities: normal pulses Medications Medications Current Medications IV Flush (NS 3 ml) 3 ml PER PROTOCOL IV ; Start 02/07/18 at 16:30 Ondansetron HCl (Zofran Inj) 4 mg Q6H PRN IV NAUSEA AND/OR VOMITING; Start 02/07/18 at 16:30 Acetaminophen (Tylenol Tab) 650 mg Q6H PRN PO PAIN LEVEL 1-3 OR FEVER; Start 02/07/18 at 16:30 Docusate Sodium (Colace) 100 mg Q12H PRN PO CONSTIPATION Last administered on 02/10/18at 20:07; Admin Dose 100 MG; Start 02/07/18 at 16:30 Pantoprazole (Protonix Iv) 40 mg DAILY@06 IV Last administered on 02/11/18at 05:45; Admin Dose 40 MG; Start 02/08/18 at 06:00 Cefepime HCl 50 ml @ 100 mls/hr Q12 IVPB Last administered on 02/11/18at 08:57; Admin Dose 100 MLS/HR; Start 02/07/18 at 21:00 Diltiazem HCl (Cardizem) 60 mg Q8 PO Last administered on 02/10/18at 22:11; Admin Dose 60 MG; Start 02/07/18 at 17:00 Atenolol (Tenormin) 25 mg BID PO Last administered on 02/11/18at 08:59; Admin Dose 25 MG; Start 02/08/18 at 11:00 Apixaban (Eliquis) 5 mg BID PO ; Start 02/09/18 at 21:00; Status Hold Guaifenesin/ Dextromethorphan (Robitussin Dm Liquid Cup) 30 ml Q4H PRN PO COUGH Last administered on 02/10/18at 18:11; Admin Dose 30 ML; Start 02/09/18 at 12:30 Methylprednisolone Sodium Succinate (Solu-Medrol) 60 mg BID IV Last administered on 02/11/18at 08:57; Admin Dose 60 MG; Start 02/10/18 at 21:00 Levalbuterol (Xopenex Neb) 1.25 mg Q4H RESP THERAPY PRN HHN wheezing; Start 02/11/18 at 00:00 Propofol 100 ml @ 2.373 mls/ hr Q12H IV Last administered on 02/11/18at 12:36; Admin Dose 16.611 MLS/HR; Start 02/11/18 at 00:30 Levalbuterol (Xopenex Hfa) 2 puff Q6 INH Last administered on 02/11/18at 13:33; Admin Dose 2 PUFF; Start 02/11/18 at 14:00 Hydralazine HCl (Apresoline) 10 mg Q4H PRN IV SBP>170; Start 02/11/18 at 10:30 Miscellaneous Information 1 ea NOTE XX ; Start 02/11/18 at 11:00 Glucose (Glutose) 15 gm Q15M PRN PO DECREASED GLUCOSE; Start 02/11/18 at 11:00 Glucose (Glutose) 22.5 gm Q15M PRN PO DECREASED GLUCOSE; Start 02/11/18 at 11:00 Dextrose (D50w Syringe) 25 ml Q15M PRN IV DECREASED GLUCOSE; Start 02/11/18 at 11:00 Dextrose (D50w Syringe) 50 ml Q15M PRN IV DECREASED GLUCOSE; Start 02/11/18 at 11:00 Glucagon (Glucagen) 1 mg Q15M PRN IM DECREASED GLUCOSE; Start 02/11/18 at 11:00 Glucose (Glutose) 15 gm Q15M PRN BUCCAL DECREASED GLUCOSE; Start 02/11/18 at 11:00 Diagnostic Test (Pha) (Accu-Chek) 1 ea 02 XX ; Start 02/12/18 at 02:00 Insulin Aspart (Novolog Insulin Pen) NOVOLOG *MILD* ALGORITHM WITH MEALS BEDTIME SC Last administered on 02/11/18at 12:48; Admin Dose 2 UNIT; Start 02/11/18 at 11:30 Results Result Diagram: 02/10/18 0557 02/11/18 0439 Results 24 hrs Laboratory Tests Test 02/10/18 23:38 02/11/18 01:51 02/11/18 04:39 02/11/18 08:00 Blood Gas Blood arterial Blood Blood Specimen arterial arterial Source Arterial Blood 02/10/2018 11:40 02/11/2018 1:4 02/11/2018 8:2 Date Drawn :19 PM 5:12 AM 5:26 AM Arterial Blood 7.289 *L 7.370 7.428 pH (Temp corrected ) Arterial Blood 45.0 37.3 38.2 pCO2 (Temp correct) Arterial Blood 134.5 H 428.0 H 138.7 H pO2 (Temp corrected ) Arterial Blood 21.1 L 21.1 L 24.7 HCO3 Arterial Blood -5.4 L -3.7 L 0.5 Base Excess Arterial Blood 98.2 99.7 98.6 Oxygen Saturati on Harshad Test ACCEPTAB N/A ACCEPTAB Arterial Blood Right Radial Right Radial Right Radial Gas Puncture Site Arterial 0.3 0.3 0.3 Blood Carboxyhe moglobin Arterial Blood 0.3 0.3 0.2 Methemoglobin Blood Gas A-a 533.5 H 247.7 H 102.6 H O2 Differential Oxyhemoglobin 97.6 99.1 H 98.1 Percent Blood Gas 37.0 37.0 37.0 Temperature Blood Gas MASK - NRB VENT - AC VENT - AC Modality FiO2 100.0 100.0 40.0 Blood Gas A KASIE RUSHING Critical Value Read Back Blood Gas UP S.H. TM Notified Whom Blood Gas 02/10/2018 11:49 02/11/2018 1:5 02/11/2018 8:5 Notified Time :20 PM 6:26 AM 2:06 AM Blood Gas 18.0 18.0 Respiration Rate Blood Gas 19 18 Actual Respiration Rat e Blood Gas Tidal 450.0 450.0 Volume Blood Gas Low 5.0 5.0 PEEP Setting Sodium Level 138 Potassium Level 4.4 Chloride Level 104 Carbon Dioxide 25 Level Anion Gap 9 Blood Urea 53 H Nitrogen Creatinine 1.83 H Est Glomerular Filtrat Rate mL/min Glucose Level 205 Calcium Level 8.9 Test 02/11/18 12:41 Bedside Glucose 195 MOIRA VALDIVIA Feb 11, 2018 14:13
--- NOTE | 2018-02-11 14:29 | CONS ---
DATE OF ADMISSION: 02/07/2018 DATE OF CONSULTATION: 02/11/2018 TYPE OF CONSULTATION: Pulmonary. REASON FOR CONSULTATION: Right-sided pneumothorax. HISTORY OF PRESENT ILLNESS: This is a 77-year-old male with a right pleural effusion, admitted and u nderwent a thoracentesis, was found to have a large right-sided pneumothorax, subsequently had to hav e a chest tube and intubated. Currently, the patient is intubated, comfortable. Chest tube is in be cause of about 50 mL of serosanguineous fluid. Chest x-ray has showed small right pneumothorax which is improved since the last. PAST MEDICAL HISTORY: Significant for hypertension, hyperlipidemia. PAST SURGICAL HISTORY: None. ALLERGIES: None. SOCIAL HISTORY: No smoking, drinking or drug use. MEDICATIONS: List reviewed. PHYSICAL EXAMINATION: VITAL SIGNS: Blood pressure is 122/70, pulse is 79, respirations 18. HEENT: Orotracheally intubated. CARDIOVASCULAR: Normal S1, S2. No murmurs, gallops or rubs. LUNGS: Clear. ABDOMEN: Soft. EXTREMITIES: Warm. IMPRESSION: Right-sided pneumothorax status post chest tube placement. RECOMMENDATIONS: We will continue chest tube suction. Monitor the chest x-ray tomorrow. Discuss wi th the referring physicians. Dictated By: SHIRA TURPIN/JACQUELINE Conf#: [id number] DID#: [id number] CC: FIDEL GAVIN;*EndCC*
--- NOTE | 2018-02-11 17:06 | NUR ---
NUTRITION NOTE: ORALLY INTUBATED, SEDATED ON LIPID PROPOFOL 16.11 ML/HR PROVIDES 1.1 LUDIN/ML. TITRATING. ON SOLUMEDROL 60 MG BID, LATEST POC GLUCOSE 195 @ 12:41. ON ASPART MILD ALGORITHM. TUBE FEEDING FIBERSOURCE HN @ 50 ML/HR RXD , PROVIDES 1440 LUDNI/ 65 GM. PROT/158 GM CHO/972 ML. FREE WATER. WILL MONITOR TOLERANCE, GLUCOSE TREND. MAY NEED BASAL INSULIN IF GLUCOSE > 180 MG. CHECK TRIGLYCERIDES R/T LIPID BASED PROPOFOL.
--- NOTE | 2018-02-11 18:48 | NUR ---
END OF SHIFT SUMMARY PT IS IN STABLE CONDITION. PT IS ON MECH VENT WITH FIO2 AT 30%, WITH NO S/S OF DISTRESS. PT IS ON PROPOFOL GTT AT 30MCG/KG/MIN. PT OPEN EYES TO PAIN AND WITHDRAWS TO PAIN. PT HAS BEEN AFEBRILE. PT HAS CHEST TUBE CONNECTED TO ATRIUM. PT DOES NOT SEEM TO BE IN ANY RESPIRATORY DISTRESS. PT BG WAS TRENDING UP. MD GAVIN MADE AWARE. PT HAS NOVOLOG SLIDING SCALE AT MILD. PT BG IS NO CONTROLLED. PT STARTED ON TUBE FEEDS. PT IS TOLERATING. ALL OF PT NEEDS CARED FOR, ENDORSING CARE TO PM SHIFT.
[2018-02-11] MEDS: LEVALBUTEROL (HFA) 15 GM INHALER INH SCH (20:25)
[2018-02-12] VITALS (35 sets, daily range): BP systolic 96–152; BP diastolic 48–91; PULSE 78–110; RESP 14–25
[2018-02-12] MEDS: PROPOFOL 100 ML IV SCH ×2 (00:35→06:01)
[2018-02-12] MEDS: INSULIN ASPART [NOVOLOG] 3 ML PEN SC SCH ×6 (01:28→21:05)
[2018-02-12] MEDS ORDERED: ACCU-CHEK XX SCH ×2 (02:00)
[2018-02-12] MEDS: LEVALBUTEROL (HFA) 15 GM INHALER INH SCH ×2 (02:14→09:22)
[2018-02-12] MEDS: PANTOPRAZOLE 40 MG INJ IV SCH (05:57)
[2018-02-12] MEDS: DILTIAZEM 60 MG TAB PO SCH ×3 (05:58→21:03)
--- NOTE | 2018-02-12 06:32 | NUR ---
end of shift report no acute events over night. pt remains intubated and on 35mcg of prop. urine output wnl. vitals wnl. pt had residual at around 0400, feeding has been held for now. bed bath given, tolerate well. oral care provided. pt still requires hand mittens due to attempts to reach for the ETT>
[2018-02-12] MEDS: METHYLPREDNISOLONE 125 MG INJ IV SCH ×2 (09:27→21:04)
[2018-02-12] MEDS: ATENOLOL 25 MG TAB PO SCH ×2 (09:27→21:03)
[2018-02-12] MEDS: CEFEPIME 1GM/50 ML (PMX) 50 ML IVPB SCH (09:28)
--- NOTE | 2018-02-12 09:43 | NUR ---
PER [facility]GAMA REQUEST, STARTED CPAP AROUND 0940 WITH PRESSURE SUPPORT 10 PEEP 5.
--- NOTE | 2018-02-12 10:18 | CONS ---
Date/Time of Note Date/Time of Note DATE: 02/12/18 TIME: 10:15 Assessment/Plan Assessment/Plan Additional Assessment/Plan 1.AF with RVR - rate better controlled at 90s - rate better now in 80s - much better now - will monitor clinically. In ICU now - rate controlled. 2.CHF-systolic EF last 35-40 prior - now improved to 50% - con't med RX, no indication for ICD now. Treated. 3.HTN- tolerated diuresos, btter now - add therpy as BP high now. 4.Possible scabies s/p treatment 5.COPD - on Rx - now with Pneumo s/p CT. 6. H/O lung ca 7.PNA and effusion - pulmonary follows - better clinically - fluid removed - treated - hope to extubate soon 8.ARF-ongoing, avoid nephrotoxic meds 9. Secondary hypercoag state - Eliquis to restart Consultation Date/Type/Reason Admit Date/Time Feb 07, 2018 at 13:54 Initial Consult Date Requesting Provider: FIDEL GAVIN MD 24 HR Interval Summary Free Text/Dictation Now intubated - but weanng well - s/p effusion Rx and pneumo RX - con't t to wean ROS: No fever, no chills, no nausea, no vomiting, no diarrhea/constipation No recent weight changes No chest pain, no PND, no orthopnea - SOB - hope to wean soon No dizziness, blurred vision No thirst, no heat or cold intolerance Exam/Review of Systems Vital Signs Vitals Vital Signs Date Temp Pulse Resp B/P (MAP) Pulse Ox O2 O2 Flow FiO2 Time Delivery Rate 02/12/18 87 08:00 02/12/18 25 130/91 97 Mechanical 06:00 (104) Ventilator 02/12/18 30 05:43 02/12/18 97.9 04:00 02/10/18 15.0 22:55 Intake and Output 02/11/18 02/11/18 02/12/18 1515:00 23:00 07:00 IntakeIntake Total 183.914 ml 462.190 ml 343.055 ml OutputOutput Total 340 ml 320 ml 355 ml BalanceBalance -156.086 ml 142.190 ml -11.945 ml Exam General: WN/WD/NAD, AOx responds to questions - intubated HEENT: Unicetric/atraumatic/EOMI (follows commands) NECK: JVD elevated, no thyromegaly Lymph: no lymphadenopathy HEART: regular with no S3, II/ systolic murmur at apex LUNGS: Coarse sounds - CT in ABD: soft, NT, ND, +BS : Intact Neuro: non focal SKIN: chronic changes EXT: trace edema Medications Medications Current Medications IV Flush (NS 3 ml) 3 ml PER PROTOCOL IV ; Start 02/07/18 at 16:30 Ondansetron HCl (Zofran Inj) 4 mg Q6H PRN IV NAUSEA AND/OR VOMITING; Start 02/07/18 at 16:30 Acetaminophen (Tylenol Tab) 650 mg Q6H PRN PO PAIN LEVEL 1-3 OR FEVER; Start 02/07/18 at 16:30 Docusate Sodium (Colace) 100 mg Q12H PRN PO CONSTIPATION Last administered on 02/10/18at 20:07; Admin Dose 100 MG; Start 02/07/18 at 16:30 Pantoprazole (Protonix Iv) 40 mg DAILY@06 IV Last administered on 02/12/18at 0 5:57; Admin Dose 40 MG; Start 02/08/18 at 06:00 Cefepime HCl 50 ml @ 100 mls/hr Q12 IVPB Last administered on 02/12/18at 09:28; Admin Dose 100 MLS/HR; Start 02/07/18 at 21:00 Diltiazem HCl (Cardizem) 60 mg Q8 PO Last administered on 02/12/18at 05:58; Admin Dose 60 MG; Start 02/07/18 at 17:00 Atenolol (Tenormin) 25 mg BID PO Last administered on 02/12/18 09:27; Admin Dose 25 MG; Start 02/08/18 at 11:00 Apixaban (Eliquis) 5 mg BID PO Last administered on 02/12/18 09:26; Admin Dose 5 MG; Start 02/09/18 at 21:00 Guaifenesin/ Dextromethorphan (Robitussin Dm Liquid Cup) 30 ml Q4H PRN PO COUGH Last administered on 02/10/18at 18:11; Admin Dose 30 ML; Start 02/09/18 at 12:30 Methylprednisolone Sodium Succinate (Solu-Medrol) 60 mg BID IV Last administered on 02/12/18at 09:27; Admin Dose 60 MG; Start 02/10/18 at 21:00 Levalbuterol (Xopenex Neb) 1.25 mg Q4H RESP THERAPY PRN HHN wheezing; Start 02/11/18 at 00:00 Propofol 100 ml @ 2.373 mls/ hr Q12H IV Last administered on 02/12/18at 06:01; Admin Dose 16.611 MLS/HR; Start 02/11/18 at 00:30 Hydralazine HCl (Apresoline) 10 mg Q4H PRN IV SBP>170; Start 02/11/18 at 10:30 Miscellaneous Information 1 ea NOTE XX ; Start 02/11/18 at 11:00 Glucose (Glutose) 15 gm Q15M PRN PO DECREASED GLUCOSE; Start 02/11/18 at 11:00 Glucose (Glutose) 22.5 gm Q15M PRN PO DECREASED GLUCOSE; Start 02/11/18 at 11:00 Dextrose (D50w Syringe) 25 ml Q15M PRN IV DECREASED GLUCOSE; Start 02/11/18 at 11:00 Dextrose (D50w Syringe) 50 ml Q15M PRN IV DECREASED GLUCOSE; Start 02/11/18 at 11:00 Glucagon (Glucagen) 1 mg Q15M PRN IM DECREASED GLUCOSE; Start 02/11/18 at 11:00 Glucose (Glutose) 15 gm Q15M PRN BUCCAL DECREASED GLUCOSE; Start 02/11/18 at 11:00 Levalbuterol (Xopenex Hfa) 2 puff Q6H RESP THERAPY INH Last administered on 02/12/18at 09:22; Admin Dose 2 PUFF; Start 02/11/18 at 20:00 Insulin Aspart (Novolog Insulin Pen) NOVOLOG *MILD* ALGORI... Q4 SC Last administered on 02/12/18at 09:32; Admin Dose 1 UNIT; Start 02/11/18 at 21:00 Results Result Diagram: 02/12/18 0505 02/12/18 0505 Results 24 hrs Laboratory Tests Test 02/11/18 12:41 02/11/18 18:12 02/11/18 20:47 02/12/18 01:23 Bedside Glucose 195 72 173 168 Test 02/12/18 05:05 02/12/18 05:51 02/12/18 07:00 02/12/18 09:30 White Blood 10.7 # Count Red Blood Count 3.59 L Hemoglobin 11.5 L Hematocrit 33.8 L Mean 94.2 Corpuscular Volume Mean 32.0 Corpuscular Hemoglobin Mean 34.0 Corpuscular Hemoglobin Conc ent Red Cell 14.2 Distribution Width Platelet Count 253 Mean Platelet 9.2 Volume Immature 0.900 H Granulocytes % Neutrophils % 86.5 H Lymphocytes % 4.4 L Monocytes % 8.2 Eosinophils % 0.0 Basophils % 0.0 Nucleated Red 0.0 Blood Cells % Immature 0.100 H Granulocytes # Neutrophils # 9.2 H Lymphocytes # 0.5 L Monocytes # 0.9 Eosinophils # 0.0 Basophils # 0.0 Nucleated Red 0.0 Blood Cells # Sodium Level 141 Potassium Level 4.2 Chloride Level 107 Carbon Dioxide 24 Level Anion Gap 10 Blood Urea 63 H Nitrogen Creatinine 1.80 H Est Glomerular Filtrat Rate mL/min Glucose Level 171 Calcium Level 8.7 Phosphorus 4.1 Level Magnesium Level 2.6 H Bedside Glucose 163 154 Blood Gas Blood arterial Specimen Source Arterial Blood 02/12/2018 7:13 Date Drawn :19 AM Arterial Blood 7.459 H pH (Temp corrected ) Arterial Blood 33.6 L pCO2 (Temp correct) Arterial Blood 116.3 H pO2 (Temp corrected ) Arterial Blood 23.3 HCO3 Arterial Blood 0 Base Excess Arterial Blood 98.1 Oxygen Saturati on Harshad Test ACCEPTAB Arterial Blood Right Radial Gas Puncture Site Arterial 0.3 Blood Carboxyhe moglobin Arterial Blood 0.2 Methemoglobin Blood Gas A-a 58.1 H O2 Differential Oxyhemoglobin 97.6 Percent Blood Gas 37.0 Temperature Blood Gas 18.0 Respiration Rate Blood Gas 19 Actual Respiration Rat e Blood Gas VENT - AC Modality FiO2 30.0 Blood Gas Tidal 450.0 Volume Blood Gas Low 5.0 PEEP Setting Blood Gas TM Notified Whom Blood Gas 02/12/2018 7:31 Notified Time :53 AM EMILY SANTAMARIA MD Feb 12, 2018 10:18
--- NOTE | 2018-02-12 10:27 | CONS ---
Date/Time of Note Date/Time of Note DATE: 02/12/18 TIME: 10:26 Consult Date/Type/Reason Admit Date/Time Feb 07, 2018 at 13:54 Initial Consult Date Type of Consultation: Pulm Requesting Provider: FIDEL GAVIN MD Subjective Sedated, comfortable, cxr shows improved ptx. Objective Vital Signs Date Temp Pulse Resp B/P (MAP) Pulse Ox O2 O2 Flow FiO2 Time Delivery Rate 02/12/18 87 08:00 02/12/18 25 130/91 97 Mechanical 06:00 (104) Ventilator 02/12/18 30 05:43 02/12/18 97.9 04:00 02/10/18 15.0 22:55 Intake and Output 02/11/18 02/11/18 02/12/18 1515:00 23:00 07:00 IntakeIntake Total 183.914 ml 462.190 ml 343.055 ml OutputOutput Total 340 ml 320 ml 355 ml BalanceBalance -156.086 ml 142.190 ml -11.945 ml Exam GENERAL: Well-nourished well-developed gentleman intubated on mechanical ventilation VITAL SIGNS: per chart NECK: Supple. No JVD or lymphadenopathy. CARDIAC EXAM: S1, S2. No added sounds or murmurs. CHEST: Diminished air entry both bases. ABDOMEN: Soft, nontender. No guarding or rebound. EXTREMITIES: No cyanosis, clubbing or edema. NEUROLOGIC: Generalized weakness. No focal deficits. Results/Medications Result Diagram: 02/12/18 0505 02/12/18 0505 Results 24 hrs Laboratory Tests Test 02/11/18 12:41 02/11/18 18:12 02/11/18 20:47 02/12/18 01:23 Bedside Glucose 195 72 173 168 Test 02/12/18 05:05 02/12/18 05:51 02/12/18 07:00 02/12/18 09:30 White Blood 10.7 # Count Red Blood Count 3.59 L Hemoglobin 11.5 L Hematocrit 33.8 L Mean 94.2 Corpuscular Volume Mean 32.0 Corpuscular Hemoglobin Mean 34.0 Corpuscular Hemoglobin Conc ent Red Cell 14.2 Distribution Width Platelet Count 253 Mean Platelet 9.2 Volume Immature 0.900 H Granulocytes % Neutrophils % 86.5 H Lymphocytes % 4.4 L Monocytes % 8.2 Eosinophils % 0.0 Basophils % 0.0 Nucleated Red 0.0 Blood Cells % Immature 0.100 H Granulocytes # Neutrophils # 9.2 H Lymphocytes # 0.5 L Monocytes # 0.9 Eosinophils # 0.0 Basophils # 0.0 Nucleated Red 0.0 Blood Cells # Sodium Level 141 Potassium Level 4.2 Chloride Level 107 Carbon Dioxide 24 Level Anion Gap 10 Blood Urea 63 H Nitrogen Creatinine 1.80 H Est Glomerular Filtrat Rate mL/min Glucose Level 171 Calcium Level 8.7 Phosphorus 4.1 Level Magnesium Level 2.6 H Bedside Glucose 163 154 Blood Gas Blood arterial Specimen Source Arterial Blood 02/12/2018 7:13 Date Drawn :19 AM Arterial Blood 7.459 H pH (Temp corrected ) Arterial Blood 33.6 L pCO2 (Temp correct) Arterial Blood 116.3 H pO2 (Temp corrected ) Arterial Blood 23.3 HCO3 Arterial Blood 0 Base Excess Arterial Blood 98.1 Oxygen Saturati on Harshad Test ACCEPTAB Arterial Blood Right Radial Gas Puncture Site Arterial 0.3 Blood Carboxyhe moglobin Arterial Blood 0.2 Methemoglobin Blood Gas A-a 58.1 H O2 Differential Oxyhemoglobin 97.6 Percent Blood Gas 37.0 Temperature Blood Gas 18.0 Respiration Rate Blood Gas 19 Actual Respiration Rat e Blood Gas VENT - AC Modality FiO2 30.0 Blood Gas Tidal 450.0 Volume Blood Gas Low 5.0 PEEP Setting Blood Gas TM Notified Whom Blood Gas 02/12/2018 7:31 Notified Time :53 AM Medications Current Medications IV Flush (NS 3 ml) 3 ml PER PROTOCOL IV ; Start 02/07/18 at 16:30 Ondansetron HCl (Zofran Inj) 4 mg Q6H PRN IV NAUSEA AND/OR VOMITING; Start 02/07/18 at 16:30 Acetaminophen (Tylenol Tab) 650 mg Q6H PRN PO PAIN LEVEL 1-3 OR FEVER; Start 02/07/18 at 16:30 Docusate Sodium (Colace) 100 mg Q12H PRN PO CONSTIPATION Last administered on 02/10/18at 20:07; Admin Dose 100 MG; Start 02/07/18 at 16:30 Pantoprazole (Protonix Iv) 40 mg DAILY@06 IV Last administered on 02/12/18at 05:57; Admin Dose 40 MG; Start 02/08/18 at 06:00 Cefepime HCl 50 ml @ 100 mls/hr Q12 IVPB Last administered on 02/12/18at 09:28; Admin Dose 100 MLS/HR; Start 02/07/18 at 21:00 Diltiazem HCl (Cardizem) 60 mg Q8 PO Last administered on 02/12/18at 05:58; Admin Dose 60 MG; Start 02/07/18 at 17:00 Atenolol (Tenormin) 25 mg BID PO Last administered on 02/12/18at 09:27; Admin Dose 25 MG; Start 02/08/18 at 11:00 Apixaban (Eliquis) 5 mg BID PO Last administered on 02/12/18at 09:26; Admin Dose 5 MG; Start 02/09/18 at 21:00 Guaifenesin/ Dextromethorphan (Robitussin Dm Liquid Cup) 30 ml Q4H PRN PO COUGH Last administered on 02/10/18at 18:11; Admin Dose 30 ML; Start 02/09/18 at 12:30 Methylprednisolone Sodium Succinate (Solu-Medrol) 60 mg BID IV Last administered on 02/12/18at 09:27; Admin Dose 60 MG; Start 02/10/18 at 21:00 Levalbuterol (Xopenex Neb) 1.25 mg Q4H RESP THERAPY PRN HHN wheezing; Start 02/11/18 at 00:00 Propofol 100 ml @ 2.373 mls/ hr Q12H IV Last administered on 02/12/18at 06:01; Admin Dose 16.611 MLS/HR; Start 02/11/18 at 00:30 Hydralazine HCl (Apresoline) 10 mg Q4H PRN IV SBP>170; Start 02/11/18 at 10:30 Miscellaneous Information 1 ea NOTE XX ; Start 02/11/18 at 11:00 Glucose (Glutose) 15 gm Q15M PRN PO DECREASED GLUCOSE; Start 02/11/18 at 11:00 Glucose (Glutose) 22.5 gm Q15M PRN PO DECREASED GLUCOSE; Start 02/11/18 at 11:00 Dextrose (D50w Syringe) 25 ml Q15M PRN IV DECREASED GLUCOSE; Start 02/11/18 at 11:00 Dextrose (D50w Syringe) 50 ml Q15M PRN IV DECREASED GLUCOSE; Start 02/11/18 at 11:00 Glucagon (Glucagen) 1 mg Q15M PRN IM DECREASED GLUCOSE; Start 02/11/18 at 11:00 Glucose (Glutose) 15 gm Q15M PRN BUCCAL DECREASED GLUCOSE; Start 02/11/18 at 11:00 Levalbuterol (Xopenex Hfa) 2 puff Q6H RESP THERAPY INH Last administered on 02/12/18at 09:22; Admin Dose 2 PUFF; Start 02/11/18 at 20:00 Insulin Aspart (Novolog Insulin Pen) NOVOLOG *MILD* ALGORI... Q4 SC Last administered on 02/12/18at 09:32; Admin Dose 1 UNIT; Start 02/11/18 at 21:00 Assessment/Plan Chief Complaint/Hosp Course Assessment 1. Iatrogenic pneumothorax now status post chest tube placement following worsening hypoxemic respiratory failure. Resolving ptx on cxr. 2. Loculated left pleural effusion 3. History of atrial fibrillation 4. History of cardiomyopathy 5. History of COPD 6. Renal insufficiency Plan 1. Continue chest tube to suction, cpap trial 2. Cardiothoracic surgery evaluation 3. Continue low-sodium antibiotics 4. Renal recommendations 5. tube feeding Prognosis remains guarded critical care time 40 minutes AISHWARYA PICKARD MD, [facility] Feb 12, 2018 10:27
--- NOTE | 2018-02-12 11:02 | PN ---
Date/Time of Note Date/Time of Note DATE: 02/12/18 TIME: 10:58 Assessment/Plan VTE Prophylaxis Risk score (from Ns)>0 risk: 9 SCD applied (from Ns): Yes Pharmacological prophylaxis: apixaban, other Pharm contraindication: other Lines/Catheters IV Catheter Type (from [facility]): Peripheral IV Urinary Cath still in place: Yes Reason Cath still needed: urinary retention Assessment/Plan Hospital Course ASSESSMENT AND PLAN: This is a 77-year-old male who presented with: # Respiratory failure status post intubation on 1211 #. Shortness of breath likely secondary to congestive heart failure/chronic obstructive pulmonary disease exacerbation. # right-sided pneumothorax status post thoracentesis, now with chest tube , subcutanoeus emphysema # Large left pleural effusion, status post thoracentesis in the past. # History of chronic obstructive pulmonary disease. #. Atrial fibrillation with rapid ventricular response.controlled #. Hypertension. # EKG changes of atrial fibrillation with ST segment changes in the inferior leads. # History of lung cancer status post chemo and radiation.? NEW Lung metastases # History of coronary artery disease. #. Pleural effusion, status post thoracentesis. # Elevated BNP secondary to congestive heart failure. #. Hyponatremia. # History of peripheral vascular disease. # LEUKOCYTOSIS secondary to steroids # acute on chronic renal failure likely due to prerenal/ATN Overdiuresis, and uptrending continue to monitor urine monitor creatinine, cR 1.8 Plan - start fluids - Check UA and yrne sodium - renaaly dose eliquis -Status post intubation, CPAP trial -f/u CTS recs - monitor Cr, monitor urine output - cw with steroids insulin sliding scale - c w diltazem and atenolol - f/u cardiac and pul recs -IV cefepime - Vent management per pulmonary Subjective 24 Hr Interval Summary Free Text/Dictation Pt is on CPap trial Chest xray showed +Improved PTHX Exam/Review of Systems Vital Signs Vitals Vital Signs Date Temp Pulse Resp B/P (MAP) Pulse Ox O2 O2 Flow FiO2 Time Delivery Rate 02/12/18 93 21 139/70 99 Mechanical 10:00 (93) Ventilator 02/12/18 30 08:00 02/12/18 97.9 08:00 02/10/18 15.0 22:55 Intake and Output 02/11/18 02/11/18 02/12/18 1515:00 23:00 07:00 IntakeIntake Total 183.914 ml 462.190 ml 359.666 ml OutputOutput Total 340 ml 320 ml 355 ml BalanceBalance -156.086 ml 142.190 ml 4.666 ml Exam GENERAL: Intubated, awake on CPAP HEENT: Pupils are equal, round, reactive to light. NECK: Supple. HEART: Irregularly irregular. LUNGS: Diminished breath sounds, crackles on rt and dec on left, [place] ABDOMEN: Soft, nontender, nondistended, positive normoactive bowel sounds. EXTREMITIES: There is 1+ edema. Chest tube on the right Medications Medications Current Medications IV Flush (NS 3 ml) 3 ml PER PROTOCOL IV ; Start 02/07/18 at 16:30 Ondansetron HCl (Zofran Inj) 4 mg Q6H PRN IV NAUSEA AND/OR VOMITING; Start 02/07/18 at 16:30 Acetaminophen (Tylenol Tab) 650 mg Q6H PRN PO PAIN LEVEL 1-3 OR FEVER; Start 02/07/18 at 16:30 Docusate Sodium (Colace) 100 mg Q12H PRN PO CONSTIPATION Last administered on 02/10/18at 20:07; Admin Dose 100 MG; Start 02/07/18 at 16:30 Cefepime HCl 50 ml @ 100 mls/hr Q12 IVPB Last administered on 02/12/18 09:28; Admin Dose 100 MLS/HR; Start 02/07/18 at 21:00 Diltiazem HCl (Cardizem) 60 mg Q8 PO Last administered on 02/12/18at 05:58; Admin Dose 60 MG; Start 02/07/18 at 17:00 Atenolol (Tenormin) 25 mg BID PO Last administered on 02/12/18 09:27; Admin Dose 25 MG; Start 02/08/18 at 11:00 Guaifenesin/ Dextromethorphan (Robitussin Dm Liquid Cup) 30 ml Q4H PRN PO COUGH Last administered on 02/10/18 18:11; Admin Dose 30 ML; Start 02/09/18 at 12:30 Methylprednisolone Sodium Succinate (Solu-Medrol) 60 mg BID IV Last administered on 02/12/18 09:27; Admin Dose 60 MG; Start 02/10/18 at 21:00 Levalbuterol (Xopenex Neb) 1.25 mg Q4H RESP THERAPY PRN HHN wheezing; Start 02/11/18 at 00:00 Propofol 100 ml @ 2.373 mls/ hr Q12H IV Last administered on 02/12/18at 06:01; Admin Dose 16.611 MLS/HR; Start 02/11/18 at 00:30 Hydralazine HCl (Apresoline) 10 mg Q4H PRN IV SBP>170; Start 02/11/18 at 10:30 Miscellaneous Information 1 ea NOTE XX ; Start 02/11/18 at 11:00 Glucose (Glutose) 15 gm Q15M PRN PO DECREASED GLUCOSE; Start 02/11/18 at 11:00 Glucose (Glutose) 22.5 gm Q15M PRN PO DECREASED GLUCOSE; Start 02/11/18 at 11:00 Dextrose (D50w Syringe) 25 ml Q15M PRN IV DECREASED GLUCOSE; Start 02/11/18 at 11:00 Dextrose (D50w Syringe) 50 ml Q15M PRN IV DECREASED GLUCOSE; Start 02/11/18 at 11:00 Glucagon (Glucagen) 1 mg Q15M PRN IM DECREASED GLUCOSE; Start 02/11/18 at 11:00 Glucose (Glutose) 15 gm Q15M PRN BUCCAL DECREASED GLUCOSE; Start 02/11/18 at 11:00 Levalbuterol (Xopenex Hfa) 2 puff Q6H RESP THERAPY INH Last administered on 02/12/18at 09:22; Admin Dose 2 PUFF; Start 02/11/18 at 20:00 Insulin Aspart (Novolog Insulin Pen) NOVOLOG *MILD* ALGORI... Q4 SC Last administered on 02/12/18at 09:32; Admin Dose 1 UNIT; Start 02/11/18 at 21:00 Lansoprazole (Prevacid) 30 mg DAILY@06 GTB ; Start 02/13/18 at 06:00 Apixaban (Eliquis) 2.5 mg BID PO ; Start 02/12/18 at 21:00 Sodium Chloride 1,000 ml @ 50 mls/hr Q20H IV ; Start 02/12/18 at 11:00 Results Result Diagram: 02/12/18 0505 02/12/18 0505 Results 24 hrs Laboratory Tests Test 02/11/18 12:41 02/11/18 18:12 02/11/18 20:47 02/12/18 01:23 Bedside Glucose 195 72 173 168 Test 02/12/18 05:05 02/12/18 05:51 02/12/18 07:00 02/12/18 09:30 White Blood 10.7 # Count Red Blood Count 3.59 L Hemoglobin 11.5 L Hematocrit 33.8 L Mean 94.2 Corpuscular Volume Mean 32.0 Corpuscular Hemoglobin Mean 34.0 Corpuscular Hemoglobin Conc ent Red Cell 14.2 Distribution Width Platelet Count 253 Mean Platelet 9.2 Volume Immature 0.900 H Granulocytes % Neutrophils % 86.5 H Lymphocytes % 4.4 L Monocytes % 8.2 Eosinophils % 0.0 Basophils % 0.0 Nucleated Red 0.0 Blood Cells % Immature 0.100 H Granulocytes # Neutrophils # 9.2 H Lymphocytes # 0.5 L Monocytes # 0.9 Eosinophils # 0.0 Basophils # 0.0 Nucleated Red 0.0 Blood Cells # Sodium Level 141 Potassium Level 4.2 Chloride Level 107 Carbon Dioxide 24 Level Anion Gap 10 Blood Urea 63 H Nitrogen Creatinine 1.80 H Est Glomerular Filtrat Rate mL/min Glucose Level 171 Calcium Level 8.7 Phosphorus 4.1 Level Magnesium Level 2.6 H Bedside Glucose 163 154 Blood Gas Blood arterial Specimen Source Arterial Blood 02/12/2018 7:13 Date Drawn :19 AM Arterial Blood 7.459 H pH (Temp corrected ) Arterial Blood 33.6 L pCO2 (Temp correct) Arterial Blood 116.3 H pO2 (Temp corrected ) Arterial Blood 23.3 HCO3 Arterial Blood 0 Base Excess Arterial Blood 98.1 Oxygen Saturati on Harshad Test ACCEPTAB Arterial Blood Right Radial Gas Puncture Site Arterial 0.3 Blood Carboxyhe moglobin Arterial Blood 0.2 Methemoglobin Blood Gas A-a 58.1 H O2 Differential Oxyhemoglobin 97.6 Percent Blood Gas 37.0 Temperature Blood Gas 18.0 Respiration Rate Blood Gas 19 Actual Respiration Rat e Blood Gas VENT - AC Modality FiO2 30.0 Blood Gas Tidal 450.0 Volume Blood Gas Low 5.0 PEEP Setting Blood Gas TM Notified Whom Blood Gas 02/12/2018 7:31 Notified Time :53 AM FIDEL GAVIN MD Feb 12, 2018 11:02
--- NOTE | 2018-02-12 12:19 | NUR ---
PT ABG POST CPAP 7.459, 32.8 CO2, 112 OXYGEN, HCO3 22.8. PER VADGAMA REQUEST, WILL EXTUBATE PT.
[2018-02-12] MEDS: SOD CHLORIDE 0.45% 1,000 ML IV SCH (12:24)
--- NOTE | 2018-02-12 15:11 | CONS ---
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 Now with pleural effusion s/p thoracentesis, complicated by PTX and now with chest tube and intubated -f/u cytology on pleural effusion -when he is more stable, check CT chest with contrast -mild leukocytosis likely reactive -mild anemia, suspect due to anemia of chronic disease, check iron, B12, folate -once he is more stable and he can have CT chest with contrast will better ne able to assess if he has disease recurrence cont current care per ICU for nowPatient seen in collaboration with Dr Green. Dw Staff Consultation Date/Type/Reason Admit Date/Time Feb 07, 2018 at 13:54 Initial Consult Date Requesting Provider: FIDEL GAVIN MD 24 HR Interval Summary Free Text/Dictation Extubated today at 13:45- doing well. - no new issues reported overnight. - dw staff Constitutional: requiring IVF, requiring O2 Exam/Review of Systems Vital Signs Vitals Vital Signs Date Temp Pulse Resp B/P (MAP) Pulse Ox O2 O2 Flow FiO2 Time Delivery Rate 02/12/18 93 21 139/70 99 Mechanical 10:00 (93) Ventilator 02/12/18 30 08:00 02/12/18 97.9 08:00 02/10/18 15.0 22:55 Intake and Output 02/11/18 02/11/18 02/12/18 1515:00 23:00 07:00 IntakeIntake Total 183.914 ml 462.190 ml 399.666 ml OutputOutput Total 340 ml 320 ml 425 ml BalanceBalance -156.086 ml 142.190 ml -25.334 ml Exam Constitutional: well developed, non-verbal Head: normocephalic Eyes: nl conjunctiva, nl lids, nl sclera ENMT: nl external ears & nose Neck: non-tender Respiratory: diminished breath sounds Cardiovascular: nl pulses Gastrointestinal: soft, other (ngt intact) Musculoskeletal: muscle weakness, range of motion Extremities: normal pulses 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: nl mental status Medications Medications Current Medications IV Flush (NS 3 ml) 3 ml PER PROTOCOL IV ; Start 02/07/18 at 16:30 Ondansetron HCl (Zofran Inj) 4 mg Q6H PRN IV NAUSEA AND/OR VOMITING; Start 02/07/18 at 16:30 Acetaminophen (Tylenol Tab) 650 mg Q6H PRN PO PAIN LEVEL 1-3 OR FEVER; Start 02/07/18 at 16:30 Docusate Sodium (Colace) 100 mg Q12H PRN PO CONSTIPATION Last administered on 02/10/18at 20:07; Admin Dose 100 MG; Start 02/07/18 at 16:30 Cefepime HCl 50 ml @ 100 mls/hr Q12 IVPB Last administered on 02/12/18at 09:28; Admin Dose 100 MLS/HR; Start 02/07/18 at 21:00 Diltiazem HCl (Cardizem) 60 mg Q8 PO Last administered on 02/12/18at 05:58; Admin Dose 60 MG; Start 02/07/18 at 17:00 Atenolol (Tenormin) 25 mg BID PO Last administered on 02/12/18at 09:27; Admin Dose 25 MG; Start 02/08/18 at 11:00 Guaifenesin/ Dextromethorphan (Robitussin Dm Liquid Cup) 30 ml Q4H PRN PO COUGH Last administered on 02/10/18at 18:11; Admin Dose 30 ML; Start 02/09/18 at 12:30 Methylprednisolone Sodium Succinate (Solu-Medrol) 60 mg BID IV Last administered on 02/12/18at 09:27; Admin Dose 60 MG; Start 02/10/18 at 21:00 Levalbuterol (Xopenex Neb) 1.25 mg Q4H RESP THERAPY PRN HHN wheezing; Start 02/11/18 at 00:00 Propofol 100 ml @ 2.373 mls/ hr Q12H IV Last administered on 02/12/18at 06:01; Admin Dose 16.611 MLS/HR; Start 02/11/18 at 00:30 Hydralazine HCl (Apresoline) 10 mg Q4H PRN IV SBP>170; Start 02/11/18 at 10:30 Miscellaneous Information 1 ea NOTE XX ; Start 02/11/18 at 11:00 Glucose (Glutose) 15 gm Q15M PRN PO DECREASED GLUCOSE; Start 02/11/18 at 11:00 Glucose (Glutose) 22.5 gm Q15M PRN PO DECREASED GLUCOSE; Start 02/11/18 at 11:00 Dextrose (D50w Syringe) 25 ml Q15M PRN IV DECREASED GLUCOSE; Start 02/11/18 at 11:00 Dextrose (D50w Syringe) 50 ml Q15M PRN IV DECREASED GLUCOSE; Start 02/11/18 at 11:00 Glucagon (Glucagen) 1 mg Q15M PRN IM DECREASED GLUCOSE; Start 02/11/18 at 11: 00 Glucose (Glutose) 15 gm Q15M PRN BUCCAL DECREASED GLUCOSE; Start 02/11/18 at 11:00 Levalbuterol (Xopenex Hfa) 2 puff Q6H RESP THERAPY INH Last administered on 02/12/18at 09:22; Admin Dose 2 PUFF; Start 02/11/18 at 20:00 Insulin Aspart (Novolog Insulin Pen) NOVOLOG *MILD* ALGORI... Q4 SC Last administered on 02/12/18at 09:32; Admin Dose 1 UNIT; Start 02/11/18 at 21:00 Lansoprazole (Prevacid) 30 mg DAILY@06 GTB ; Start 02/13/18 at 06:00 Apixaban (Eliquis) 2.5 mg BID PO ; Start 02/12/18 at 21:00 Sodium Chloride 1,000 ml @ 50 mls/hr Q20H IV ; Start 02/12/18 at 11:00 Results Result Diagram: 02/12/18 0505 02/12/18 0505 Results 24 hrs Laboratory Tests Test 02/11/18 12:41 02/11/18 18:12 02/11/18 20:47 02/12/18 01:23 Bedside Glucose 195 72 173 168 Test 02/12/18 05:05 02/12/18 05:51 02/12/18 07:00 02/12/18 09:30 White Blood 10.7 # Count Red Blood Count 3.59 L Hemoglobin 11.5 L Hematocrit 33.8 L Mean 94.2 Corpuscular Volume Mean 32.0 Corpuscular Hemoglobin Mean 34.0 Corpuscular Hemoglobin Conc ent Red Cell 14.2 Distribution Width Platelet Count 253 Mean Platelet 9.2 Volume Immature 0.900 H Granulocytes % Neutrophils % 86.5 H Lymphocytes % 4.4 L Monocytes % 8.2 Eosinophils % 0.0 Basophils % 0.0 Nucleated Red 0.0 Blood Cells % Immature 0.100 H Granulocytes # Neutrophils # 9.2 H Lymphocytes # 0.5 L Monocytes # 0.9 Eosinophils # 0.0 Basophils # 0.0 Nucleated Red 0.0 Blood Cells # Sodium Level 141 Potassium Level 4.2 Chloride Level 107 Carbon Dioxide 24 Level Anion Gap 10 Blood Urea 63 H Nitrogen Creatinine 1.80 H Est Glomerular Filtrat Rate mL/min Glucose Level 171 Calcium Level 8.7 Phosphorus 4.1 Level Magnesium Level 2.6 H Bedside Glucose 163 154 Blood Gas Blood Specimen arterial Source Arterial Blood 02/12/2018 7:1 Date Drawn 3:19 AM Arterial Blood 7.459 H pH (Temp corrected ) Arterial Blood 33.6 L pCO2 (Temp correct) Arterial Blood 116.3 H pO2 (Temp corrected ) Arterial Blood 23.3 HCO3 Arterial Blood 0 Base Excess Arterial Blood 98.1 Oxygen Saturati on Harshad Test ACCEPTAB Arterial Blood Right Radial Gas Puncture Site Arterial 0.3 Blood Carboxyhe moglobin Arterial Blood 0.2 Methemoglobin Blood Gas A-a 58.1 H O2 Differential Oxyhemoglobin 97.6 Percent Blood Gas 37.0 Temperature Blood Gas 18.0 Respiration Rate Blood Gas 19 Actual Respiration Rat e Blood Gas VENT - AC Modality FiO2 30.0 Blood Gas Tidal 450.0 Volume Blood Gas Low 5.0 PEEP Setting Blood Gas TM Notified Whom Blood Gas 02/12/2018 7:3 Notified Time 1:53 AM Test 02/12/18 11:00 Blood Gas Blood arterial Specimen Source Arterial Blood 02/12/2018 11:1 Date Drawn 0:46 AM Arterial Blood 7.459 H pH (Temp corrected ) Arterial Blood 32.8 L pCO2 (Temp correct) Arterial Blood 112.0 H pO2 (Temp corrected ) Arterial Blood 22.8 HCO3 Arterial Blood -0.4 Base Excess Arterial Blood 98.0 Oxygen Saturati on Harshad Test ACCEPTAB Arterial Blood Right Radial Gas Puncture Site Arterial 0.3 Blood Carboxyhe moglobin Arterial Blood 0.1 Methemoglobin Blood Gas A-a 63.4 H O2 Differential Oxyhemoglobin 97.6 Percent Blood Gas 37.0 Temperature Blood Gas 21 Actual Respiration Rat e Blood Gas VENT - CPAP Modality FiO2 30.0 Blood Gas Low 5.0 PEEP Setting Blood Gas 10 Pressure Support Blood Gas TM Notified Whom Blood Gas 02/12/2018 11:1 Notified Time 8:31 AM BRYAN CARLIN Feb 12, 2018 11:53
--- NOTE | 2018-02-12 16:43 | PN ---
Date/Time of Note Date/Time of Note DATE: 02/12/18 TIME: 16:42 Assessment/Plan Lines/Catheters IV Catheter Type (from Nrsg): Peripheral IV Bar in Place (from Nrsg): Yes Assessment/Plan Assessment/Plan Right-sided pneumothorax status post chest tube placement. CT with 30 cc output RECOMMENDATIONS: We will continue chest tube suction. Monitor the chest x-ray tomorrow. Discuss with the referring physicians. Subjective 24 Hr Interval Summary Constitutional: improved Pain Control: mild Exam/Review of Systems Vital Signs Vitals Vital Signs Date Temp Pulse Resp B/P (MAP) Pulse Ox O2 O2 Flow FiO2 Time Delivery Rate 02/12/18 Nasal 2.0 16:00 Cannula 02/12/18 97 16:00 02/12/18 97.6 19 146/72 99 16:00 (96) 02/12/18 30 13:20 Intake and Output 02/11/18 02/11/18 02/12/18 1414:59 22:59 06:59 IntakeIntake Total 164.914 ml 453.952 ml 387.293 ml OutputOutput Total 350 ml 285 ml 430 ml BalanceBalance -185.086 ml 168.952 ml -42.707 ml Exam ENMT: nl external ears & nose, nl lips & teeth, nl nasal mucosa & septum, mucosa pink and moist Neck: supple, non-tender Respiratory: clear to auscultation, normal air movement Cardiovascular: regular rate and rhythm, nl pulses Gastrointestinal: soft, nl liver, spleen, non-tender Results Result Diagram: 02/12/18 0505 02/12/18 0505 SHIRA ORTIZ MD Feb 12, 2018 16:43
--- NOTE | 2018-02-12 19:33 | NUR ---
EOSS PT STABLE ON 2L NC. EXTUBATED TODAY AT 1345. DC HAND MITTEN RESTRAINTS. PT AWAKE AND ALERT, FOLLOWS COMMANDS. PT RECEIVING 1/2 NS AT 50ML/HR STARTING TODAY AND TUBE FEEDS. MARTE OUTPUT 30-40 ML/HR. URINALYSIS DRAWN AND SENT TO LAB. PT AFEBRILE THROUGHOUT SHIFT. PT HAS CONTROLLED A FIB, HR WITHIN 80-90'S THROUGHOUT SHIFT. PT CREATININE TRENDING UPWARD, DR GAVIN AWARE. ELIQUIS CHANGED FROM 5-2.5MG DUE TO POSSIBLE RENAL FAILURE. PT TURNED Q2, VAP Q2, NO NEW SKIN BREAKDOWNS. ALL INFORMATION ENDORSED TO BEVERAGE DISTILLER NURSE.
[2018-02-12] MEDS: APIXABAN 5 MG TABLET PO SCH (21:04)
--- NOTE | 2018-02-12 23:30 | NUR ---
pt complained of pain near chest pain incision site. site appears intact, no s/s of infection. pt complains of pain with movement. paged dr. ly who is security installation sales technician for prn pain medication.
[2018-02-13] VITALS (21 sets, daily range): BP systolic 118–155; BP diastolic 53–93; PULSE 79–98; RESP 14–23
--- NOTE | 2018-02-13 | NUR ---
paged dr. ly again for prn pain medication. pt comfortably sleeping at this time.
[2018-02-13] MEDS ORDERED: LORAZEPAM 2 MG INJ IV PRN (01:00)
[2018-02-13] MEDS: OXYCODONE/ACETAMINOPHEN (5/325) TAB PO PRN ×2 (01:31→09:09)
[2018-02-13] MEDS: INSULIN ASPART [NOVOLOG] 3 ML PEN SC SCH ×6 (01:38→21:14)
[2018-02-13] MEDS: DILTIAZEM 60 MG TAB PO SCH ×3 (05:31→21:17)
[2018-02-13] MEDS: LANSOPRAZOLE 30 MG CAP GTB SCH (05:31)
--- NOTE | 2018-02-13 06:17 | NUR ---
end of shift report no acute events over night. vitals wnl. pt slept most of the night. no drainage from chest tube. good urine output. tolerating tube feeding well. pt pleasantly confused. oriented to self.
[2018-02-13] MEDS: SOD CHLORIDE 0.45% 1,000 ML IV SCH (07:05)
--- NOTE | 2018-02-13 08:20 | NUR ---
SPEECH THERAPY CAME AND PERFORMED SWALLOW EVAL. SPEECH THERAPIST RECOMMENDS MECHANICAL SOFT DIET WITH NO STRAWS. WILL FOLLOW UP WITH DR. GAVIN.
[2018-02-13] MEDS ORDERED: E IVPB SCH (09:00)
[2018-02-13] MEDS: METHYLPREDNISOLONE 125 MG INJ IV SCH (09:07)
[2018-02-13] MEDS: ATENOLOL 25 MG TAB PO SCH ×2 (09:08→21:16)
[2018-02-13] MEDS: APIXABAN 5 MG TABLET PO SCH ×2 (09:08→21:16)
[2018-02-13] MEDS: CEFEPIME 1GM/50 ML (PMX) 50 ML IVPB SCH (09:09)
--- NOTE | 2018-02-13 10:20 | NUR ---
Per jess request, d/c ng tube and begin regular diet with no straws.
--- NOTE | 2018-02-13 10:24 | NUR ---
ST NOTE: Pt is a 77-year-old male admitted sec. to SOB and wheezing; pt was placed on bipap but then required intubation and mechanical ventilation; pt intuabed on 02/07/18 and now extubated on 02/12/18. PAST MEDICAL HISTORY: 1. CHF with EF of 35% to 40%. 2. COPD. 3. History of lung cancer. 4. AFib on anticoagulation. 5. History of hypoxic respiratory failure. hx of thoracentesis, 6. Left pleural effusion. 7. History of left lower lobe pneumonia. 8. History of CVA. 9. History of carotid endarterectomy. 10. HTN Supplemental Oxygen; nasal cannula 2 liters; Pt Afebrile; WBC 11.8 Creatinine: 66 Respiratory Rate WNL during eval as well as oxygen saturation 96-97% Dental Status: permanent upper and lower dentition Cognitive Status; pt pleasantly confused; oriented to self but not oriented to month; year, date, location or reason despite choices and cues given; Current Feeding Status: NPO with NG tube feeds Oral Motor Exam; Pt able to protrude and lateralize tongue; lingual strength appears adequate. PO trials given; thin via spoon; good laryngeal elevation; no coughing; some audible wheezing heard in upper airway before presentation of the any bolus given. thin via cup; single sip; no coughing; large sip x2 only throat clear Thin straw; single and sequential swallows; suspect spillage and pt throat clearing; suspect overall decreased control resulting in spillage. suspect pen. with straw. no difference between nectar thick trial via spoon or cup then thin; puree given; multiple trials; good laryngeal elevation; no oral residue solid trial; min oral residue cleared with liquid wash down; pt throughout eval was humming making difficult to auscultate during some of the trials; mild incoordination noted during breathing and swallowing on some trials; allowed rest breaks which helped; REC> Mechanical soft Diet;Thin Liquids; NO straws small sips; alternate food/liquids; rec. pills mixed whole with puree vs with thin liquids at this time but RN can test if can tolerate with thin; Discussed with СЕРГЕЙ Tamayo. St to follow to ensure safe tolerance for diet; trials to advance as tolerated;
[2018-02-13] MEDS ORDERED: LORAZEPAM 0.5 MG TAB GTB PRN (11:00)
--- NOTE | 2018-02-13 11:06 | CONS ---
Date/Time of Note Date/Time of Note DATE: 02/13/18 TIME: 11:05 Consult Date/Type/Reason Admit Date/Time Feb 07, 2018 at 13:54 Initial Consult Date Type of Consultation: Pulm Requesting Provider: FIDEL GAVIN MD Subjective Patient continues on nasal cannula oxygen post extubation remains awake alert oriented this morning no respiratory distress. Possible small pneumothorax on this morning's chest x-ray. Objective Vital Signs Date Temp Pulse Resp B/P (MAP) Pulse Ox O2 O2 Flow FiO2 Time Delivery Rate 02/13/18 Nasal 2.0 08:00 Cannula 02/13/18 88 08:00 02/13/18 142/85 98 07:00 (104) 02/13/18 98.4 04:00 02/12/18 30 13:20 Intake and Output 02/12/18 02/12/18 02/13/18 1515:00 23:00 07:00 IntakeIntake Total 431.611 ml 950 ml 900 ml OutputOutput Total 297 ml 385 ml 640 ml BalanceBalance 134.611 ml 565 ml 260 ml Exam GENERAL: Well-nourished well-developed gentleman sitting up in chair chest tube in place VITAL SIGNS: per chart NECK: Supple. No JVD or lymphadenopathy. CARDIAC EXAM: S1, S2. No added sounds or murmurs. CHEST: Diminished air entry both bases. ABDOMEN: Soft, nontender. No guarding or rebound. EXTREMITIES: No cyanosis, clubbing or edema. NEUROLOGIC: Generalized weakness. No focal deficits. Results/Medications Result Diagram: 02/13/18 0446 02/13/18 0446 Results 24 hrs Laboratory Tests Test 02/12/18 13:40 02/12/18 13:59 02/12/18 16:51 02/12/18 20:59 Urine Color YELLOW Urine Clarity CLEAR Urine pH 6.0 Urine Specific 1.017 [place] Urine Ketones NEGATIVE Urine Nitrite NEGATIVE Urine Bilirubin NEGATIVE Urine NEGATIVE Urobilinogen Urine Leukocyte TRACE A Esterase Urine 44 H Microscopic RBC Urine 7 H Microscopic WBC Urine Bacteria FEW A Urine 2+ H Hemoglobin Urine Random 14 L Sodium Urine Glucose NEGATIVE Urine Total 1+ H Protein Bedside Glucose 172 190 227 H Test 02/13/18 01:36 02/13/18 04:15 02/13/18 04:46 02/13/18 07:00 Bedside Glucose 184 150 White Blood 11.8 H Count Red Blood Count 3.69 L Hemoglobin 11.6 L Hematocrit 35.0 L Mean 94.9 Corpuscular Volume Mean 31.4 Corpuscular Hemoglobin Mean 33.1 Corpuscular Hemoglobin Conc ent Red Cell 14.0 Distribution Width Platelet Count 240 Mean Platelet 9.3 Volume Immature 0.800 H Granulocytes % Neutrophils % 88.8 H Lymphocytes % 4.0 L Monocytes % 6.4 Eosinophils % 0.0 Basophils % 0.0 Nucleated Red 0.0 Blood Cells % Immature 0.090 H Granulocytes # Neutrophils # 10.5 H Lymphocytes # 0.5 L Monocytes # 0.8 Eosinophils # 0.0 Basophils # 0.0 Nucleated Red 0.0 Blood Cells # Sodium Level 141 Potassium Level 4.3 Chloride Level 109 Carbon Dioxide 24 Level Anion Gap 8 Blood Urea 66 H Nitrogen Creatinine 1.51 H Est Glomerular Filtrat Rate mL/min Glucose Level 173 Calcium Level 8.6 Phosphorus 3.4 Level Magnesium Level 2.6 H Blood Gas Blood arterial Specimen Source Arterial Blood 02/13/2018 8:15 Date Drawn :27 AM Arterial Blood 7.456 H pH (Temp corrected ) Arterial Blood 32.6 L pCO2 (Temp correct) Arterial Blood 113.0 H pO2 (Temp corrected ) Arterial Blood 22.5 HCO3 Arterial Blood -0.7 Base Excess Arterial Blood 98.3 Oxygen Saturati on Harshad Test ACCEPTAB Arterial Blood Right Radial Gas Puncture Site Arterial 0.5 Blood Carboxyhe moglobin Arterial Blood 0.1 Methemoglobin Blood Gas A-a 41.0 H O2 Differential Oxyhemoglobin 97.7 Percent Blood Gas 37.0 Temperature Blood Gas NASAL CANNULA Modality FiO2 27.0 Blood Gas Nora Notified Whom Blood Gas 02/13/2018 8:25 Notified Time :53 AM Test 02/13/18 09:14 Bedside Glucose 186 Medications Current Medications IV Flush (NS 3 ml) 3 ml PER PROTOCOL IV ; Start 02/07/18 at 16:30 Ondansetron HCl (Zofran Inj) 4 mg Q6H PRN IV NAUSEA AND/OR VOMITING; Start 02/07/18 at 16:30 Acetaminophen (Tylenol Tab) 650 mg Q6H PRN PO PAIN LEVEL 1-3 OR FEVER; Start 02/07/18 at 16:30 Docusate Sodium (Colace) 100 mg Q12H PRN PO CONSTIPATION Last administered on 02/10/18at 20:07; Admin Dose 100 MG; Start 02/07/18 at 16:30 Diltiazem HCl (Cardizem) 60 mg Q8 PO Last administered on 02/13/18at 05:31; Admin Dose 60 MG; Start 02/07/18 at 17:00 Atenolol (Tenormin) 25 mg BID PO Last administered on 02/13/18at 09:08; Admin Dose 25 MG; Start 02/08/18 at 11:00 Guaifenesin/ Dextromethorphan (Robitussin Dm Liquid Cup) 30 ml Q4H PRN PO COUGH Last administered on 02/10/18at 18:11; Admin Dose 30 ML; Start 02/09/18 at 12:30 Methylprednisolone Sodium Succinate (Solu-Medrol) 60 mg BID IV Last administered on 02/13/18at 09:07; Admin Dose 60 MG; Start 02/10/18 at 21:00 Levalbuterol (Xopenex Neb) 1.25 mg Q4H RESP THERAPY PRN HHN wheezing; Start 02/11/18 at 00:00 Propofol 100 ml @ 2.373 mls/ hr Q12H IV Last administered on 02/12/18at 06:01; Admin Dose 16.611 MLS/HR; Start 02/11/18 at 00:30 Hydralazine HCl (Apresoline) 10 mg Q4H PRN IV SBP>170; Start 02/11/18 at 10:30 Miscellaneous Information 1 ea NOTE XX ; Start 02/11/18 at 11:00 Glucose (Glutose) 15 gm Q15M PRN PO DECREASED GLUCOSE; Start 02/11/18 at 11:00 Glucose (Glutose) 22.5 gm Q15M PRN PO DECREASED GLUCOSE; Start 02/11/18 at 11:00 Dextrose (D50w Syringe) 25 ml Q15M PRN IV DECREASED GLUCOSE; Start 02/11/18 at 11:00 Dextrose (D50w Syringe) 50 ml Q15M PRN IV DECREASED GLUCOSE; Start 02/11/18 at 11:00 Glucagon (Glucagen) 1 mg Q15M PRN IM DECREASED GLUCOSE; Start 02/11/18 at 11:00 Glucose (Glutose) 15 gm Q15M PRN BUCCAL DECREASED GLUCOSE; Start 02/11/18 at 11:00 Insulin Aspart (Novolog Insulin Pen) NOVOLOG *MILD* ALGORI... Q4 SC Last administered on 02/13/18at 09:15; Admin Dose 2 UNIT; Start 02/11/18 at 21:00 Lansoprazole (Prevacid) 30 mg DAILY@06 GTB Last administered on 02/13/18at 05:31; Admin Dose 30 MG; Start 02/13/18 at 06:00 Apixaban (Eliquis) 2.5 mg BID PO Last administered on 02/13/18at 09:08; Admin Dose 2.5 MG; Start 02/12/18 at 21:00 Sodium Chloride 1,000 ml @ 50 mls/hr Q20H IV Last administered on 02/13/18at 07:05; Admin Dose 50 MLS/HR; Start 02/12/18 at 11:00 Cefepime HCl 50 ml @ 100 mls/hr Q24H IVPB Last administered on 02/13/18at 09:09; Admin Dose 100 MLS/HR; Start 02/13/18 at 09:00 Oxycodone/ Acetaminophen (Percocet (5/ 325)) 1 tab Q4H PRN PO MODERATE PAIN LEVEL 4-6 Last administered on 02/13/18at 09:09; Admin Dose 1 TAB; Start 02/13/18 at 01:00 Lorazepam (Ativan) 0.5 mg Q12H PRN GTB restlessness; Start 02/13/18 at 11:00 Assessment/Plan Chief Complaint/Hosp Course Assessment 1. Iatrogenic pneumothorax now status post chest tube placement following worsening hypoxemic respiratory failure. Resolving ptx on cxr. 2. Loculated left pleural effusion 3. History of atrial fibrillation 4. History of cardiomyopathy 5. History of COPD 6. Renal insufficiency Plan 1. Continue chest tube to suction, cardiothoracic recommendations 2. Cardiothoracic surgery evaluation, chest tube to waterseal then clamped once pneumothorax resolved 3. Continue broad-spectrum antibiotics 4. Renal recommendations 5. Advance diet as tolerated AISHWARYA PICKARD MD, [facility] Feb 13, 2018 11:06
--- NOTE | 2018-02-13 11:08 | CONS ---
Date/Time of Note Date/Time of Note DATE: 02/13/18 TIME: 11:05 Assessment/Plan Assessment/Plan Chief Complaint/Hosp Course IMP: 1.AF-rate controlled 2.CHF-diastolic acute on chronic 3.HTN-reasonable control 4.Pleural effusion s/p thoracentesis c/b PTX now s/p CT 5. Renal failure 6. Leukocytosis 7. anemia Recc: -ICU -Continue atenolol/dilt -Continue steroids/abx/bronchodilators -continue eliquis -Follow CT output closely Consultation Date/Type/Reason Admit Date/Time Feb 07, 2018 at 13:54 Initial Consult Date 02/07/18 Type of Consult cardiology Reason for Consultation AF Requesting Provider: FIDEL GAVIN MD Exam/Review of Systems Vital Signs Vitals Vital Signs Date Temp Pulse Resp B/P (MAP) Pulse Ox O2 O2 Flow FiO2 Time Delivery Rate 02/13/18 Nasal 2.0 08:00 Cannula 02/13/18 88 08:00 02/13/18 18 142/85 98 07:00 (104) 02/13/18 98.4 04:00 02/12/18 30 13:20 Intake and Output 02/12/18 02/12/18 02/13/18 1515:00 23:00 07:00 IntakeIntake Total 431.611 ml 950 ml 900 ml OutputOutput Total 297 ml 385 ml 640 ml BalanceBalance 134.611 ml 565 ml 260 ml Exam Review of Systems: CONSTITUTIONAL: No fevers, chills. PULMONARY: No sob CARDIOVASCULAR: No chest pain/palpitations GASTROINTESTINAL: No nausea/vomiting. GENITOURINARY: No hematuria/dysuria. MUSCULOSKELETAL: No myagias/arthalgias. PSYCHIATRIC: The patient denies depression. NEUROLOGIC: No weakness Constitutional: alert Psych: no complaints Head: normocephalic ENMT: mucosa pink and moist Neck: supple, jvd (9 cm water) Respiratory: diminished breath sounds Cardiovascular: regular rate and rhythm Gastrointestinal: soft, non-tender Musculoskeletal: muscle tone (normal) Extremities: edema (none) 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: other (No focal deficits) Medications Medications Current Medications IV Flush (NS 3 ml) 3 ml PER PROTOCOL IV ; Start 02/07/18 at 16:30 Ondansetron HCl (Zofran Inj) 4 mg Q6H PRN IV NAUSEA AND/OR VOMITING; Start 02/07/18 at 16:30 Acetaminophen (Tylenol Tab) 650 mg Q6H PRN PO PAIN LEVEL 1-3 OR FEVER; Start 02/07/18 at 16:30 Docusate Sodium (Colace) 100 mg Q12H PRN PO CONSTIPATION Last administered on 02/10/18at 20:07; Admin Dose 100 MG; Start 02/07/18 at 16:30 Diltiazem HCl (Cardizem) 60 mg Q8 PO Last administered on 02/13/18at 05:31; Admin Dose 60 MG; Start 02/07/18 at 17:00 Atenolol (Tenormin) 25 mg BID PO Last administered on 02/13/18at 09:08; Admin Dose 25 MG; Start 02/08/18 at 11:00 Guaifenesin/ Dextromethorphan (Robitussin Dm Liquid Cup) 30 ml Q4H PRN PO COUGH Last administered on 02/10/18at 18:11; Admin Dose 30 ML; Start 02/09/18 at 12:30 Methylprednisolone Sodium Succinate (Solu-Medrol) 60 mg BID IV Last administered on 02/13/18at 09:07; Admin Dose 60 MG; Start 02/10/18 at 21:00 Levalbuterol (Xopenex Neb) 1.25 mg Q4H RESP THERAPY PRN HHN wheezing; Start 02/11/18 at 00:00 Propofol 100 ml @ 2.373 mls/ hr Q12H IV Last administered on 02/12/18at 06:01; Admin Dose 16.611 MLS/HR; Start 02/11/18 at 00:30 Hydralazine HCl (Apresoline) 10 mg Q4H PRN IV SBP>170; Start 02/11/18 at 10:30 Miscellaneous Information 1 ea NOTE XX ; Start 02/11/18 at 11:00 Glucose (Glutose) 15 gm Q15M PRN PO DECREASED GLUCOSE; Start 02/11/18 at 11:00 Glucose (Glutose) 22.5 gm Q15M PRN PO DECREASED GLUCOSE; Start 02/11/18 at 11:00 Dextrose (D50w Syringe) 25 ml Q15M PRN IV DECREASED GLUCOSE; Start 02/11/18 at 11:00 Dextrose (D50w Syringe) 50 ml Q15M PRN IV DECREASED GLUCOSE; Start 02/11/18 at 11:00 Glucagon (Glucagen) 1 mg Q15M PRN IM DECREASED GLUCOSE; Start 02/11/18 at 11:00 Glucose (Glutose) 15 gm Q15M PRN BUCCAL DECREASED GLUCOSE; Start 02/11/18 at 11:00 Insulin Aspart (Novolog Insulin Pen) NOVOLOG *MILD* ALGORI... Q4 SC Last ad ministered on 02/13/18at 09:15; Admin Dose 2 UNIT; Start 02/11/18 at 21:00 Lansoprazole (Prevacid) 30 mg DAILY@06 GTB Last administered on 02/13/18at 05:31; Admin Dose 30 MG; Start 02/13/18 at 06:00 Apixaban (Eliquis) 2.5 mg BID PO Last administered on 02/13/18at 09:08; Admin Dose 2.5 MG; Start 02/12/18 at 21:00 Sodium Chloride 1,000 ml @ 50 mls/hr Q20H IV Last administered on 02/13/18at 07:05; Admin Dose 50 MLS/HR; Start 02/12/18 at 11:00 Cefepime HCl 50 ml @ 100 mls/hr Q24H IVPB Last administered on 02/13/18at 09:09; Admin Dose 100 MLS/HR; Start 02/13/18 at 09:00 Oxycodone/ Acetaminophen (Percocet (5/ 325)) 1 tab Q4H PRN PO MODERATE PAIN LEVEL 4-6 Last administered on 02/13/18at 09:09; Admin Dose 1 TAB; Start 02/13/18 at 01:00 Lorazepam (Ativan) 0.5 mg Q12H PRN GTB restlessness; Start 02/13/18 at 11:00 Results Result Diagram: 02/13/186 02/13/18 0446 Results 24 hrs Laboratory Tests Test 02/12/18 13:40 02/12/18 13:59 02/12/18 16:51 02/12/18 20:59 Urine Color YELLOW Urine Clarity CLEAR Urine pH 6.0 Urine Specific 1.017 [place] Urine Ketones NEGATIVE Urine Nitrite NEGATIVE Urine Bilirubin NEGATIVE Urine NEGATIVE Urobilinogen Urine Leukocyte TRACE A Esterase Urine 44 H Microscopic RBC Urine 7 H Microscopic WBC Urine Bacteria FEW A Urine 2+ H Hemoglobin Urine Random 14 L Sodium Urine Glucose NEGATIVE Urine Total 1+ H Protein Bedside Glucose 172 190 227 H Test 02/13/18 01:36 02/13/18 04:15 02/13/18 04:46 02/13/18 07:00 Bedside Glucose 184 150 White Blood 11.8 H Count Red Blood Count 3.69 L Hemoglobin 11.6 L Hematocrit 35.0 L Mean 94.9 Corpuscular Volume Mean 31.4 Corpuscular Hemoglobin Mean 33.1 Corpuscular Hemoglobin Conc ent Red Cell 14.0 Distribution Width Platelet Count 240 Mean Platelet 9.3 Volume Immature 0.800 H Granulocytes % Neutrophils % 88.8 H Lymphocytes % 4.0 L Monocytes % 6.4 Eosinophils % 0.0 Basophils % 0.0 Nucleated Red 0.0 Blood Cells % Immature 0.090 H Granulocytes # Neutrophils # 10.5 H Lymphocytes # 0.5 L Monocytes # 0.8 Eosinophils # 0.0 Basophils # 0.0 Nucleated Red 0.0 Blood Cells # Sodium Level 141 Potassium Level 4.3 Chloride Level 109 Carbon Dioxide 24 Level Anion Gap 8 Blood Urea 66 H Nitrogen Creatinine 1.51 H Est Glomerular Filtrat Rate mL/min Glucose Level 173 Calcium Level 8.6 Phosphorus 3.4 Level Magnesium Level 2.6 H Blood Gas Blood arterial Specimen Source Arterial Blood 02/13/2018 8:15 Date Drawn :27 AM Arterial Blood 7.456 H pH (Temp corrected ) Arterial Blood 32.6 L pCO2 (Temp correct) Arterial Blood 113.0 H pO2 (Temp corrected ) Arterial Blood 22.5 HCO3 Arterial Blood -0.7 Base Excess Arterial Blood 98.3 Oxygen Saturati on Harshad Test ACCEPTAB Arterial Blood Right Radial Gas Puncture Site Arterial 0.5 Blood Carboxyhe moglobin Arterial Blood 0.1 Methemoglobin Blood Gas A-a 41.0 H O2 Differential Oxyhemoglobin 97.7 Percent Blood Gas 37.0 Temperature Blood Gas NASAL CANNULA Modality FiO2 27.0 Blood Gas Nora Notified Whom Blood Gas 02/13/2018 8:25 Notified Time :53 AM Test 02/13/18 09:14 Bedside Glucose 186 CECE LOPEZ Feb 13, 2018 11:08
--- NOTE | 2018-02-13 11:20 | NUR ---
PT evaluation Therapy day number 1 Evaluation Start Time 11:20 Evaluation End Time 12:05 Evaluation Total Time 45 min Subjective Current complaint of pain Pain Scale FLACC Pain Intensity 7 (0-10) Patient Stated Goal for Pain Relief 0 (0-10) Pain Level Comment pain R flank with chest tube insertion Pre Treatment Vital Signs Stable Yes Transfer Sit to Stand Ability Moderate Assist Bed Transfer Ability Moderate Assist Chair Transfer Ability Moderate Assist Additional Mobility Comments out of bed throughout Additional Gait Comments attempted pregait, pt unable to advance RLE due to use of RUE on SPC Static Sitting Balance Fair Dynamic Sitting Balance Fair Standing Static Balance Poor Dynamic Standing Balance Poor Additional Balance Assessments Comments requires substantial use of BUE Safety Judgement Fair Activity Tolerance Poor Equipment Present Bar Catheter IV pump Additional Equipment Present chest tube, O2, NG tube Post Treatment Pain Intensity 4 0-10 Quality Indicators Light headedness Additional Post Treatment Comment back in chair with bedside table in front, RN aware Total Minutes 45 Total Units 3 PT Technical Record Comment 77 yo male presents with shortness of breath 02/07/18, since has been intubated, extubated 02/12/18. Thoracentesis 02/08/18, R chest tube placement due to small right pneumothorax H hypertension, hyperlipidemia, COPD, CKD, atherosclerotic heart disease, history of lung cancer status post radiation, hypoxic respiratory distress, moderate left-sided effusion, history of thoracentesis, left lower lobe pneumonia, AFib, rapid ventricular response, cardiomyopathy, EF of 35% to 40%, history of CVA, history of carotid endarterectomy Precautions: multiple lines, fall risk, pt forgetful PLOF: Pt reports living in [facility] but 12 stairs to enter with L railing. Patient ambulatory with SPC use on RUE however reports getting out into community is difficult S: Patient sitting in bedside chair, agreeable to PT evaluation. Pt cleared for activity per RN O: PT evaluation completed, pt assisted back to bedside chair following therapy with all needs met and bedside table in front. Vitals stable throughout however pt requires cues for breathing and sequencing. Performed marching in place. Lightheadedness with stand, pain with transitional movements but no shortness of breath reported. Spoke to RN regarding pt response to activity and PT plan of care A: Patient presents with fair mobility throughout however limited secondary to pain associated from R chest tube placement. Due to decreased stability throughout, pt unable to advance BLE despite adequate strength available. With BUE support, pt able to march in place x2, as such pt may benefit from FWW training initially due to discomfort associated with chest tube. Expressed concerns to RN regarding pt mentation who will follow up. Pt forgetful with sequencing and overall limited by pain. As such recommend continued skilled inpatient PT to improve safety, endurance, and functional mobility. P: Progress gait as tolerated with FWW, recommend home with HHPT vs SNF based on progress with therapy and level of assist at discharge when cleared by MD. DME to be assessed with progress
--- NOTE | 2018-02-13 13:59 | PN ---
Date/Time of Note Date/Time of Note DATE: 02/13/18 TIME: 13:56 Assessment/Plan VTE Prophylaxis Risk score (from Ns)>0 risk: 8 SCD applied (from [facility]): Yes Pharmacological prophylaxis: NA/contraindicated, apixaban Pharm contraindication: renal impairment, other Lines/Catheters IV Catheter Type (from [facility]): Peripheral IV Urinary Cath still in place: Yes Reason Cath still needed: urinary retention Assessment/Plan Hospital Course ASSESSMENT AND PLAN: This is a 77-year-old male who presented with: # Respiratory failure status post intubation on 1211 #. Shortness of breath likely secondary to congestive heart failure/chronic obstructive pulmonary disease exacerbation. # right-sided pneumothorax status post thoracentesis, now with chest tube , subcutanoeus emphysema # Large left pleural effusion, status post thoracentesis in the past. # History of chronic obstructive pulmonary disease. #. Atrial fibrillation with rapid ventricular response.controlled #. Hypertension. # EKG changes of atrial fibrillation with ST segment changes in the inferior leads. # History of lung cancer status post chemo and radiation.? NEW Lung metastases # History of coronary artery disease. #. Pleural effusion, status post thoracentesis. # Elevated BNP secondary to congestive heart failure. #. Hyponatremia. # History of peripheral vascular disease. # LEUKOCYTOSIS secondary to steroids # acute on chronic renal failure likely due to prerenal/ATN Overdiuresis, and uptrending continue to monitor urine monitor creatinine, cR 1.8 > trending down Plan - fu C because he is on Eliquis sor - renaaly dose eliquis -Status post extubation -f/u CTS recs - Taper steroids - cw with steroids insulin sliding scale - c w diltazem and atenolol - f/u cardiac and pul recs -IV cefepime - PT eval Subjective 24 Hr Interval Summary Free Text/Dictation Patient is doing much better This post extubation urine Output more than 40-50 cc an hour Exam/Review of Systems Vital Signs Vitals Vital Signs Date Temp Pulse Resp B/P (MAP) Pulse Ox O2 O2 Flow FiO2 Time Delivery Rate 02/13/18 90 12:00 02/13/18 18 145/71 99 Nasal 11:00 (95) Cannula 02/13/18 97.5 08:00 02/13/18 2.0 08:00 02/12/18 30 13:20 Intake and Output 12/11/18 12/11/18 12/12/18 1515:00 23:00 07:00 IntakeIntake Total 431.611 ml 950 ml 900 ml OutputOutput Total 297 ml 385 ml 640 ml BalanceBalance 134.611 ml 565 ml 260 ml Exam GENERAL: Intubated, awake on CPAP HEENT: Pupils are equal, round, reactive to light. NECK: Supple. HEART: Irregularly irregular. LUNGS: Diminished breath sounds, crackles on rt and dec on left, [place] ABDOMEN: Soft, nontender, nondistended, positive normoactive bowel sounds. EXTREMITIES: There is 1+ edema. Chest tube on the right Medications Medications Current Medications IV Flush (NS 3 ml) 3 ml PER PROTOCOL IV ; Start 02/07/18 at 16:30 Ondansetron HCl (Zofran Inj) 4 mg Q6H PRN IV NAUSEA AND/OR VOMITING; Start 02/07/18 at 16:30 Acetaminophen (Tylenol Tab) 650 mg Q6H PRN PO PAIN LEVEL 1-3 OR FEVER; Start 02/07/18 at 16:30 Docusate Sodium (Colace) 100 mg Q12H PRN PO CONSTIPATION Last administered on 02/10/18at 20:07; Admin Dose 100 MG; Start 02/07/18 at 16:30 Diltiazem HCl (Cardizem) 60 mg Q8 PO Last administered on 02/13/18at 05:31; Admin Dose 60 MG; Start 02/07/18 at 17:00 Atenolol (Tenormin) 25 mg BID PO Last administered on 02/13/18at 09:08; Admin Dose 25 MG; Start 02/08/18 at 11:00 Guaifenesin/ Dextromethorphan (Robitussin Dm Liquid Cup) 30 ml Q4H PRN PO COUGH Last administered on 02/10/18at 18:11; Admin Dose 30 ML; Start 02/09/18 at 12:30 Levalbuterol (Xopenex Neb) 1.25 mg Q4H RESP THERAPY PRN HHN wheezing; Start 02/11/18 at 00:00 Hydralazine HCl (Apresoline) 10 mg Q4H PRN IV SBP>170; Start 02/11/18 at 10:30 Miscellaneous Information 1 ea NOTE XX ; Start 02/11/18 at 11:00 Glucose (Glutose) 15 gm Q15M PRN PO DECREASED GLUCOSE; Start 02/11/18 at 11:00 Glucose (Glutose) 22.5 gm Q15M PRN PO DECREASED GLUCOSE; Start 02/11/18 at 11:00 Dextrose (D50w Syringe) 25 ml Q15M PRN IV DECREASED GLUCOSE; Start 02/11/18 at 11:00 Dextrose (D50w Syringe) 50 ml Q15M PRN IV DECREASED GLUCOSE; Start 02/11/18 at 11:00 Glucagon (Glucagen) 1 mg Q15M PRN IM DECREASED GLUCOSE; Start 02/11/18 at 11:00 Glucose (Glutose) 15 gm Q15M PRN BUCCAL DECREASED GLUCOSE; Start 02/11/18 at 11:00 Insulin Aspart (Novolog Insulin Pen) NOVOLOG *MILD* ALGORI... Q4 SC Last administered on 02/13/18at 12:50; Admin Dose 2 UNIT; Start 02/11/18 at 21:00 Lansoprazole (Prevacid) 30 mg DAILY@06 GTB Last administered on 02/13/18at 05:31; Admin Dose 30 MG; Start 02/13/18 at 06:00 Apixaban (Eliquis) 2.5 mg BID PO Last administered on 02/13/18at 09:08; Admin Dose 2.5 MG; Start 02/12/18 at 21:00 Cefepime HCl 50 ml @ 100 mls/hr Q24H IVPB Last administered on 02/13/18at 09:09; Admin Dose 100 MLS/HR; Start 02/13/18 at 09:00 Oxycodone/ Acetaminophen (Percocet (5/ 325)) 1 tab Q4H PRN PO MODERATE PAIN LEVEL 4-6 Last administered on 02/13/18at 09:09; Admin Dose 1 TAB; Start 02/13/18 at 01:00 Lorazepam (Ativan) 0.5 mg Q12H PRN GTB restlessness; Start 02/13/18 at 11:00 Methylprednisolone Sodium Succinate (Solu-Medrol) 60 mg DAILY IV ; Start 02/14/18 at 09:00 Results Result Diagram: 02/13/18 0446 02/13/18 0446 Results 24 hrs Laboratory Tests Test 02/12/18 13:59 02/12/18 16:51 02/12/18 20:59 02/13/18 01:36 Bedside Glucose 172 190 227 H 184 Test 02/13/18 04:15 02/13/18 04:46 02/13/18 07:00 02/13/18 09:14 Bedside Glucose 150 186 White Blood 11.8 H Count Red Blood Count 3.69 L Hemoglobin 11.6 L Hematocrit 35.0 L Mean 94.9 Corpuscular Volume Mean 31.4 Corpuscular Hemoglobin Mean 33.1 Corpuscular Hemoglobin Conc ent Red Cell 14.0 Distribution Width Platelet Count 240 Mean Platelet 9.3 Volume Immature 0.800 H Granulocytes % Neutrophils % 88.8 H Lymphocytes % 4.0 L Monocytes % 6.4 Eosinophils % 0.0 Basophils % 0.0 Nucleated Red 0.0 Blood Cells % Immature 0.090 H Granulocytes # Neutrophils # 10.5 H Lymphocytes # 0.5 L Monocytes # 0.8 Eosinophils # 0.0 Basophils # 0.0 Nucleated Red 0.0 Blood Cells # Sodium Level 141 Potassium Level 4.3 Chloride Level 109 Carbon Dioxide 24 Level Anion Gap 8 Blood Urea 66 H Nitrogen Creatinine 1.51 H Est Glomerular Filtrat Rate mL/min Glucose Level 173 Calcium Level 8.6 Phosphorus 3.4 Level Magnesium Level 2.6 H Blood Gas Blood arterial Specimen Source Arterial Blood 02/13/2018 8:15 Date Drawn :27 AM Arterial Blood 7.456 H pH (Temp corrected ) Arterial Blood 32.6 L pCO2 (Temp correct) Arterial Blood 113.0 H pO2 (Temp corrected ) Arterial Blood 22.5 HCO3 Arterial Blood -0.7 Base Excess Arterial Blood 98.3 Oxygen Saturati on Harshad Test ACCEPTAB Arterial Blood Right Radial Gas Puncture Site Arterial 0.5 Blood Carboxyhe moglobin Arterial Blood 0.1 Methemoglobin Blood Gas A-a 41.0 H O2 Differential Oxyhemoglobin 97.7 Percent Blood Gas 37.0 Temperature Blood Gas NASAL CANNULA Modality FiO2 27.0 Blood Gas M.D. Notified Whom Blood Gas 02/13/2018 8:25 Notified Time :53 AM Test 02/13/18 12:47 Bedside Glucose 189 FIDEL GAVIN MD Feb 13, 2018 13:59
--- NOTE | 2018-02-13 14:28 | NUR ---
PT PLACED ON REGULAR MECHANICAL SOFT DIET WITH NO STRAWS BY DR. PICKARD. NG TUBE AND TUBE FEEDS REMOVED PRIOR.
--- NOTE | 2018-02-13 16:14 | CONS ---
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 Now with pleural effusion s/p thoracentesis, complicated by PTX and now with chest tube and intubated -f/u cytology on pleural effusion is negative for malignancy -when he is more stable, check CT chest with contrast -mild leukocytosis likely reactive, stable WBC -mild anemia, suspect due to anemia of chronic disease -once he is more stable and he can have CT chest with contrast will better be able to assess if he has disease recurrence cont current care per ICU for now Consultation Date/Type/Reason Admit Date/Time Feb 07, 2018 at 13:54 Initial Consult Date Requesting Provider: FIDEL GAVIN MD 24 HR Interval Summary Free Text/Dictation pt extubated yesterday slightly confused Exam/Review of Systems Vital Signs Vitals Vital Signs Date Temp Pulse Resp B/P (MAP) Pulse Ox O2 O2 Flow FiO2 Time Delivery Rate 02/13/18 92 15 132/71 Nasal 15:00 (91) Cannula 02/13/18 97.4 12:00 02/13/18 99 11:00 02/13/18 2.0 08:00 02/12/18 30 13:20 Intake and Output 02/12/18 02/12/18 02/13/18 1515:00 23:00 07:00 IntakeIntake Total 431.611 ml 950 ml 900 ml OutputOutput Total 297 ml 385 ml 640 ml BalanceBalance 134.611 ml 565 ml 260 ml Exam Constitutional: alert, frail Head: normocephalic, atraumatic Medications Medications Current Medications IV Flush (NS 3 ml) 3 ml PER PROTOCOL IV ; Start 02/07/18 at 16:30 Ondansetron HCl (Zofran Inj) 4 mg Q6H PRN IV NAUSEA AND/OR VOMITING; Start 02/07/18 at 16:30 Acetaminophen (Tylenol Tab) 650 mg Q6H PRN PO PAIN LEVEL 1-3 OR FEVER; Start 02/07/18 at 16:30 Docusate Sodium (Colace) 100 mg Q12H PRN PO CONSTIPATION Last administered on 02/10/18at 20:07; Admin Dose 100 MG; Start 02/07/18 at 16:30 Diltiazem HCl (Cardizem) 60 mg Q8 PO Last administered on 02/13/18at 14:47; Admin Dose 60 MG; Start 02/07/18 at 17:00 Atenolol (Tenormin) 25 mg BID PO Last administered on 02/13/18at 09:08; Admin Dose 25 MG; Start 02/08/18 at 11:00 Guaifenesin/ Dextromethorphan (Robitussin Dm Liquid Cup) 30 ml Q4H PRN PO COUGH Last administered on 02/10/18at 18:11; Admin Dose 30 ML; Start 02/09/18 at 12:30 Levalbuterol (Xopenex Neb) 1.25 mg Q4H RESP THERAPY PRN HHN wheezing; Start 02/11/18 at 00:00 Hydralazine HCl (Apresoline) 10 mg Q4H PRN IV SBP>170; Start 02/11/18 at 10:30 Miscellaneous Information 1 ea NOTE XX ; Start 02/11/18 at 11:00 Glucose (Glutose) 15 gm Q15M PRN PO DECREASED GLUCOSE; Start 02/11/18 at 11:00 Glucose (Glutose) 22.5 gm Q15M PRN PO DECREASED GLUCOSE; Start 02/11/18 at 11:00 Dextrose (D50w Syringe) 25 ml Q15M PRN IV DECREASED GLUCOSE; Start 02/11/18 at 11:00 Dextrose (D50w Syringe) 50 ml Q15M PRN IV DECREASED GLUCOSE; Start 02/11/18 at 11:00 Glucagon (Glucagen) 1 mg Q15M PRN IM DECREASED GLUCOSE; Start 02/11/18 at 11:00 Glucose (Glutose) 15 gm Q15M PRN BUCCAL DECREASED GLUCOSE; Start 02/11/18 at 11:00 Insulin Aspart (Novolog Insulin Pen) NOVOLOG *MILD* ALGORI... Q4 SC Last administered on 02/13/18at 12:50; Admin Dose 2 UNIT; Start 02/11/18 at 21:00 Lansoprazole (Prevacid) 30 mg DAILY@06 GTB Last administered on 02/13/18at 05:31; Admin Dose 30 MG; Start 02/13/18 at 06:00 Apixaban (Eliquis) 2.5 mg BID PO Last administered on 02/13/18at 09:08; Admin Dose 2.5 MG; Start 02/12/18 at 21:00 Cefepime HCl 50 ml @ 100 mls/hr Q24H IVPB Last administered on 02/13/18at 09:09; Admin Dose 100 MLS/HR; Start 02/13/18 at 09:00 Oxycodone/ Acetaminophen (Percocet (5/ 325)) 1 tab Q4H PRN PO MODERATE PAIN LEVEL 4-6 Last administered on 02/13/18at 09:09; Admin Dose 1 TAB; Start 02/13/18 at 01:00 Lorazepam (Ativan) 0.5 mg Q12H PRN GTB restlessness; Start 02/13/18 at 11:00 Methylprednisolone Sodium Succinate (Solu-Medrol) 60 mg DAILY IV ; Start 02/14/18 at 09:00 Results Result Diagram: 02/13/18 0446 02/13/18 0446 Results 24 hrs Laboratory Tests Test 02/12/18 16:51 02/12/18 20:59 02/13/18 01:36 02/13/18 04:15 Bedside Glucose 190 227 H 184 150 Test 02/13/18 04:46 02/13/18 07:00 02/13/18 09:14 02/13/18 12:47 White Blood 11.8 H Count Red Blood Count 3.69 L Hemoglobin 11.6 L Hematocrit 35.0 L Mean 94.9 Corpuscular Volume Mean 31.4 Corpuscular Hemoglobin Mean 33.1 Corpuscular Hemoglobin Conc ent Red Cell 14.0 Distribution Width Platelet Count 240 Mean Platelet 9.3 Volume Immature 0.800 H Granulocytes % Neutrophils % 88.8 H Lymphocytes % 4.0 L Monocytes % 6.4 Eosinophils % 0.0 Basophils % 0.0 Nucleated Red 0.0 Blood Cells % Immature 0.090 H Granulocytes # Neutrophils # 10.5 H Lymphocytes # 0.5 L Monocytes # 0.8 Eosinophils # 0.0 Basophils # 0.0 Nucleated Red 0.0 Blood Cells # Sodium Level 141 Potassium Level 4.3 Chloride Level 109 Carbon Dioxide 24 Level Anion Gap 8 Blood Urea 66 H Nitrogen Creatinine 1.51 H Est Glomerular Filtrat Rate mL/min Glucose Level 173 Calcium Level 8.6 Phosphorus 3.4 Level Magnesium Level 2.6 H Blood Gas Blood arterial Specimen Source Arterial Blood 02/13/2018 8:15 Date Drawn :27 AM Arterial Blood 7.456 H pH (Temp corrected ) Arterial Blood 32.6 L pCO2 (Temp correct) Arterial Blood 113.0 H pO2 (Temp corrected ) Arterial Blood 22.5 HCO3 Arterial Blood -0.7 Base Excess Arterial Blood 98.3 Oxygen Saturati on Harshad Test ACCEPTAB Arterial Blood Right Radial Gas Puncture Site Arterial 0.5 Blood Carboxyhe moglobin Arterial Blood 0.1 Methemoglobin Blood Gas A-a 41.0 H O2 Differential Oxyhemoglobin 97.7 Percent Blood Gas 37.0 Temperature Blood Gas NASAL CANNULA Modality FiO2 27.0 Blood Gas M.DJose Notified Whom Blood Gas 02/13/2018 8:25 Notified Time :53 AM Bedside Glucose 186 189 MOIRA VALDIVIA Feb 13, 2018 16:14
--- NOTE | 2018-02-13 18:31 | NUR ---
EOSS PT AWAKE, VERY PLEASANT AND ORIENTED TO PERSON BUT CONFUSED WHERE HE IS. ON 2LNC. D/C NG TUBE AROUND 1300, PT ON REGULAR MECHANICAL SOFT DIET. ATE 75% LUNCH AND DINNER. PT GLUCOSE 180-LOW 200'S. INSULIN GIVEN PER PROTOCOL. GAVE PERCOCET FOR PAIN AROUND CHEST TUBE. PT HAS TELE TRANSFER ORDERS AND WAITING ON BED. ALL INFORMATION ENDORSED TO AVAYA ENGINEER NURSE.
--- NOTE | 2018-02-13 18:32 | PN ---
Date/Time of Note Date/Time of Note DATE: 02/13/18 TIME: 18:29 Assessment/Plan Lines/Catheters IV Catheter Type (from Nrsg): Peripheral IV Bar in Place (from Nrsg): Yes Assessment/Plan Assessment/Plan Right-sided pneumothorax status post chest tube placement. CT with 30 cc output Right Chest PTX stable RECOMMENDATIONS: We will continue chest tube waterseal. . Monitor the chest x-ray tomorrow. Discuss with the referring physicians. Subjective 24 Hr Interval Summary Constitutional: improved Pain Control: mild Exam/Review of Systems Vital Signs Vitals Vital Signs Date Temp Pulse Resp B/P (MAP) Pulse Ox O2 O2 Flow FiO2 Time Delivery Rate 02/13/18 2.0 17:42 02/13/18 97.3 86 18 124/85 Nasal 16:00 (98) Cannula 02/13/18 99 11:00 02/12/18 30 13:20 Intake and Output 02/12/18 02/12/18 02/13/18 1515:00 23:00 07:00 IntakeIntake Total 431.611 ml 950 ml 900 ml OutputOutput Total 297 ml 385 ml 640 ml BalanceBalance 134.611 ml 565 ml 260 ml Exam ENMT: nl external ears & nose, nl lips & teeth, nl nasal mucosa & septum, mucosa pink and moist Neck: supple, non-tender Respiratory: clear to auscultation, normal air movement Cardiovascular: regular rate and rhythm, nl pulses Gastrointestinal: soft, nl liver, spleen, non-tender Musculoskeletal: nl extremities to inspection, nl gait and stance Results Result Diagram: 02/13/18 0446 02/13/18 0446 SHIRA ORTIZ MD Feb 13, 2018 18:32
[2018-02-14] VITALS (18 sets, daily range): BP systolic 123–168; BP diastolic 61–79; PULSE 67–94; RESP 13–36
[2018-02-14] MEDS: INSULIN ASPART [NOVOLOG] 3 ML PEN SC SCH ×6 (01:00→20:47)
[2018-02-14] MEDS: OXYCODONE/ACETAMINOPHEN (5/325) TAB PO PRN (06:15)
[2018-02-14] MEDS: LANSOPRAZOLE 30 MG CAP GTB SCH (06:15)
[2018-02-14] MEDS: DILTIAZEM 60 MG TAB PO SCH ×3 (06:16→20:48)
--- NOTE | 2018-02-14 07:30 | NUR ---
EOSS Pt AOx2, confused to time and location but aware he is in the hospital. Very pleasant throughout shift and eager to follow directions and participate in care. Pt remains on NC 2L with SpO2 remaining >92%. Chest tube in place and patent with 50ml output throughout the night. Pt remained in controlled A-fib No BM. Bar remains in place and patent. Pt to be transferred to [facility], pt endorsed to [email or web address] prior to transfer. Bedside report given to jerome RN.
--- NOTE | 2018-02-14 07:37 | CONS ---
Date/Time of Note Date/Time of Note DATE: 02/14/18 TIME: 07:35 Assessment/Plan Assessment/Plan Additional Assessment/Plan Assessment recommendations; 1. Patient admitted with left lower lobe pneumonia with right pneumothorax status post chest tube placement. 2. Underlying COPD exacerbation. 3. Worsening leukocytosis. With increasing left lower lobe infiltrates. 4. Improving renal function. 5. History of hypertension. 6. Chronic atrial fibrillation. At vancomycin. Continue current supportive care. Obtain follow-up chest x-ray in 24 hours. Consultation Date/Type/Reason Admit Date/Time Feb 07, 2018 at 13:54 Initial Consult Date Type of Consult Pulmonary/critical care Requesting Provider: FIDEL GAVIN MD Exam/Review of Systems Vital Signs Vitals Vital Signs Date Temp Pulse Resp B/P (MAP) Pulse Ox O2 O2 Flow FiO2 Time Delivery Rate 02/14/18 78 14 144/71 98 Nasal 2.0 07:00 (95) Cannula 02/14/18 27 04:45 02/14/18 97.7 04:00 Intake and Output 02/13/18 02/13/18 02/14/18 1515:00 23:00 07:00 IntakeIntake Total 1040 ml 410 ml 150 ml OutputOutput Total 540 ml 675 ml 615 ml BalanceBalance 500 ml -265 ml -465 ml Exam Patient's condition is stable. Complains of very minimal shortness of breath. Denies any coughing, sputum production. Complains of wheezing. General exam; elderly male, awake and alert. Currently no distress. H EENT exam; supple neck, no JVD. No lymphadenopathy. Midline trachea. No thyromegaly. Patient has fair dentition. Chest exam; right-sided chest tube in place. There is right chest wall crepitus. Bilateral wheezing is present. S1-S2 audible, irregular rhythm. No murmurs. Abdomen exam; soft, protuberant. No organomegaly. Nontender. Bowel sounds audible. Extremity exam; trace edema. SAMPLE CUTTER exam; no focal deficit. Medications Medications Current Medications IV Flush (NS 3 ml) 3 ml PER PROTOCOL IV ; Start 02/07/18 at 16:30 Ondansetron HCl (Zofran Inj) 4 mg Q6H PRN IV NAUSEA AND/OR VOMITING; Start 02/07/18 at 16:30 Acetaminophen (Tylenol Tab) 650 mg Q6H PRN PO PAIN LEVEL 1-3 OR FEVER; Start 02/07/18 at 16:30 Docusate Sodium (Colace) 100 mg Q12H PRN PO CONSTIPATION Last administered on 02/10/18at 20:07; Admin Dose 100 MG; Start 02/07/18 at 16:30 Diltiazem HCl (Cardizem) 60 mg Q8 PO Last administered on 02/14/18at 06:16; Admin Dose 60 MG; Start 02/07/18 at 17:00 Atenolol (Tenormin) 25 mg BID PO Last administered on 02/13/18at 21:16; Admin Dose 25 MG; Start 02/08/18 at 11:00 Guaifenesin/ Dextromethorphan (Robitussin Dm Liquid Cup) 30 ml Q4H PRN PO COUGH Last administered on 02/10/18at 18:11; Admin Dose 30 ML; Start 02/09/18 at 12:30 Levalbuterol (Xopenex Neb) 1.25 mg Q4H RESP THERAPY PRN HHN wheezing; Start 02/11/18 at 00:00 Hydralazine HCl (Apresoline) 10 mg Q4H PRN IV SBP>170; Start 02/11/18 at 10:30 Miscellaneous Information 1 ea NOTE XX ; Start 02/11/18 at 11:00 Glucose (Glutose) 15 gm Q15M PRN PO DECREASED GLUCOSE; Start 02/11/18 at 11:00 Glucose (Glutose) 22.5 gm Q15M PRN PO DECREASED GLUCOSE; Start 02/11/18 at 11:00 Dextrose (D50w Syringe) 25 ml Q15M PRN IV DECREASED GLUCOSE; Start 02/11/18 at 11:00 Dextrose (D50w Syringe) 50 ml Q15M PRN IV DECREASED GLUCOSE; Start 02/11/18 at 11:00 Glucagon (Glucagen) 1 mg Q15M PRN IM DECREASED GLUCOSE; Start 02/11/18 at 11:00 Glucose (Glutose) 15 gm Q15M PRN BUCCAL DECREASED GLUCOSE; Start 02/11/18 at 11:00 Insulin Aspart (Novolog Insulin Pen) NOVOLOG *MILD* ALGORI... Q4 SC Last administered on 02/13/18at 21:14; Admin Dose 3 UNIT; Start 02/11/18 at 21:00 Lansoprazole (Prevacid) 30 mg DAILY@06 GTB Last administered on 02/14/18at 06:15; Admin Dose 30 MG; Start 02/13/18 at 06:00 Apixaban (Eliquis) 2.5 mg BID PO Last administered on 02/13/18at 21:16; Admin Dose 2.5 MG; Start 02/12/18 at 21:00 Cefepime HCl 50 ml @ 100 mls/hr Q24H IVPB Last administered on 02/13/18at 09:09; Admin Dose 100 MLS/HR; Start 02/13/18 at 09:00 Oxycodone/ Acetaminophen (Percocet (5/ 325)) 1 tab Q4H PRN PO MODERATE PAIN LEVEL 4-6 Last administered on 02/14/18at 06:15; Admin Dose 1 TAB; Start 02/13/18 at 01:00 Lorazepam (Ativan) 0.5 mg Q12H PRN GTB restlessness; Start 02/13/18 at 11:00 Methylprednisolone Sodium Succinate (Solu-Medrol) 60 mg DAILY IV ; Start 02/14/18 at 09:00 Results Result Diagram: 02/14/18 0515 02/14/18 0515 Results 24 hrs Laboratory Tests Test 02/13/18 09:14 02/13/18 12:47 02/13/18 17:50 02/13/18 21:12 Bedside Glucose 186 189 208 223 H Test 02/14/18 01:52 02/14/18 05:14 02/14/18 05:15 Bedside Glucose 128 137 White Blood 16.0 #H Count Red Blood Count 3.97 L Hemoglobin 12.5 L Hematocrit 37.7 L Mean Corpuscular 95.0 Volume Mean Corpuscular 31.5 Hemoglobin Mean Corpuscular 33.2 Hemoglobin Naz nt Red Cell 13.4 Distribution Width Platelet Count 240 Mean Platelet 9.6 Volume Immature 0.900 H Granulocytes % Neutrophils % 84.3 H Lymphocytes % 5.4 L Monocytes % 9.2 Eosinophils % 0.1 Basophils % 0.1 Nucleated Red 0.0 Blood Cells % Immature 0.140 H Granulocytes # Neutrophils # 13.5 H Lymphocytes # 0.9 Monocytes # 1.5 H Eosinophils # 0.0 Basophils # 0.0 Nucleated Red 0.0 Blood Cells # Sodium Level 138 Potassium Level 4.5 Chloride Level 106 Carbon Dioxide 24 Level Anion Gap 8 Blood Urea 65 H Nitrogen Creatinine 1.30 H Est Glomerular Filtrat Rate mL/min Glucose Level 143 Calcium Level 8.7 Phosphorus Level 3.2 Magnesium Level 2.5 ALAN DICKERSON Feb 14, 2018 07:37
[2018-02-14] MEDS ORDERED: VANCOMYCIN IV PER PHARMACY XX SCH (08:00)
[2018-02-14] MEDS: CEFEPIME 1GM/50 ML (PMX) 50 ML IVPB SCH (08:10)
[2018-02-14] MEDS: APIXABAN 5 MG TABLET PO SCH ×2 (08:10→20:49)
[2018-02-14] MEDS: METHYLPREDNISOLONE 125 MG INJ IV SCH (08:10)
[2018-02-14] MEDS: ATENOLOL 25 MG TAB PO SCH ×2 (08:10→20:48)
--- NOTE | 2018-02-14 08:30 | PN ---
Date/Time of Note Date/Time of Note DATE: 02/14/18 TIME: 08:29 Assessment/Plan Lines/Catheters IV Catheter Type (from Nrsg): Peripheral IV Bar in Place (from Nrsg): Yes Assessment/Plan Assessment/Plan Right-sided pneumothorax status post chest tube placement. CT with 30 cc output Right Chest PTX stable RECOMMENDATIONS: We will continue chest tube waterseal. today . Monitor the chest x-ray tomorrow. Discuss with the referring physicians. Subjective 24 Hr Interval Summary Constitutional: improved Pain Control: mild Exam/Review of Systems Vital Signs Vitals Vital Signs Date Temp Pulse Resp B/P (MAP) Pulse Ox O2 O2 Flow FiO2 Time Delivery Rate 02/14/18 78 14 144/71 98 Nasal 2.0 07:00 (95) Cannula 02/14/18 27 04:45 02/14/18 97.7 04:00 Intake and Output 02/13/18 02/13/18 02/14/18 1414:59 22:59 06:59 IntakeIntake Total 1050 ml 500 ml 150 ml OutputOutput Total 620 ml 660 ml 690 ml BalanceBalance 430 ml -160 ml -540 ml Exam Eyes: nl conjunctiva, EOMI, nl lids, nl sclera ENMT: nl external ears & nose, nl lips & teeth, nl nasal mucosa & septum, mucosa pink and moist Neck: supple, non-tender Respiratory: clear to auscultation, normal air movement Cardiovascular: regular rate and rhythm, nl pulses Gastrointestinal: soft, nl liver, spleen, non-tender Genitourinary - Male: No nl penis, No nl scrotum, No CVA tenderness, No discharge, No other Results Result Diagram: 02/14/18 0515 02/14/18 0515 SHIRA ORTIZ MD Feb 14, 2018 08:30
--- NOTE | 2018-02-14 09:16 | CONS ---
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 Now with pleural effusion s/p thoracentesis, complicated by PTX and now with chest tube and intubated -f/u cytology on pleural effusion is negative for malignancy -when he is more stable, check CT chest with contrast -mild leukocytosis likely reactive, stable WBC -mild anemia, suspect due to anemia of chronic disease -once he is more stable and he can have CT chest with contrast will better be able to assess if he has disease recurrence cont current care per ICU for now Patient is seen in collaboration with Dr Green Consultation Date/Type/Reason Admit Date/Time Feb 07, 2018 at 13:54 Initial Consult Date 02/10/2108 Type of Consult Oncology/ Hematology Reason for Consultation Lung cancer Requesting Provider: FIDEL GAVIN MD 24 HR Interval Summary Free Text/Dictation - feels better -right chest tube is out - no new issues reported overnight per staff Constitutional: improved, requiring IVF, requiring O2 Detailed Summary ENT: no complaints Respiratory: no complaints Cardiovascular: no complaints, other (pain at surgical inscion) Gastrointestinal: no complaints Genitourinary: no complaints Musculoskeletal: restricted range of motion Skin: no complaints Exam/Review of Systems Vital Signs Vitals Vital Signs Date Temp Pulse Resp B/P (MAP) Pulse Ox O2 O2 Flow FiO2 Time Delivery Rate 02/14/18 88 08:00 02/14/18 14 144/71 98 Nasal 2.0 07:00 (95) Cannula 02/14/18 27 04:45 02/14/18 97.7 04:00 Intake and Output 02/13/18 02/13/18 02/14/18 1515:00 23:00 07:00 IntakeIntake Total 1040 ml 410 ml 150 ml OutputOutput Total 540 ml 675 ml 615 ml BalanceBalance 500 ml -265 ml -465 ml Exam Constitutional: alert, well developed Psych: nl mood/affect Head: atraumatic Eyes: nl conjunctiva, EOMI, nl lids ENMT: nl external ears & nose Neck: non-tender Respiratory: diminished breath sounds (bilaterally; right >left side) Cardiovascular: nl pulses, other (s1s2) Gastrointestinal: soft, non-tender Musculoskeletal: nl extremities to inspection, muscle weakness 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: nl mental status, nl speech Medications Medications Current Medications IV Flush (NS 3 ml) 3 ml PER PROTOCOL IV ; Start 02/07/18 at 16:30 Ondansetron HCl (Zofran Inj) 4 mg Q6H PRN IV NAUSEA AND/OR VOMITING; Start 02/07/18 at 16:30 Acetaminophen (Tylenol Tab) 650 mg Q6H PRN PO PAIN LEVEL 1-3 OR FEVER; Start 02/07/18 at 16:30 Docusate Sodium (Colace) 100 mg Q12H PRN PO CONSTIPATION Last administered on 02/10/18at 20:07; Admin Dose 100 MG; Start 02/07/18 at 16:30 Diltiazem HCl (Cardizem) 60 mg Q8 PO Last administered on 02/14/18at 06:16; Admin Dose 60 MG; Start 02/07/18 at 17:00 Atenolol (Tenormin) 25 mg BID PO Last administered on 02/14/18at 08:10; Admin Dose 25 MG; Start 02/08/18 at 11:00 Guaifenesin/ Dextromethorphan (Robitussin Dm Liquid Cup) 30 ml Q4H PRN PO COUGH Last administered on 02/10/18at 18:11; Admin Dose 30 ML; Start 02/09/18 at 12:30 Levalbuterol (Xopenex Neb) 1.25 mg Q4H RESP THERAPY PRN HHN wheezing; Start 02/11/18 at 00:00 Hydralazine HCl (Apresoline) 10 mg Q4H PRN IV SBP>170; Start 02/11/18 at 10:30 Miscellaneous Information 1 ea NOTE XX ; Start 02/11/18 at 11:00 Glucose (Glutose) 15 gm Q15M PRN PO DECREASED GLUCOSE; Start 02/11/18 at 11:00 Glucose (Glutose) 22.5 gm Q15M PRN PO DECREASED GLUCOSE; Start 02/11/18 at 11:00 Dextrose (D50w Syringe) 25 ml Q15M PRN IV DECREASED GLUCOSE; Start 02/11/18 at 11:00 Dextrose (D50w Syringe) 50 ml Q15M PRN IV DECREASED GLUCOSE; Start 02/11/18 at 11:00 Glucagon (Glucagen) 1 mg Q15M PRN IM DECREASED GLUCOSE; Start 02/11/18 at 11:00 Glucose (Glutose) 15 gm Q15M PRN BUCCAL DECREASED GLUCOSE; Start 02/11/18 at 11:00 Insulin Aspart (Novolog Insulin Pen) NOVOLOG *MILD* ALGORI... Q4 SC Last administered on 02/13/18at 21:14; Admin Dose 3 UNIT; Start 02/11/18 at 21:00 Lansoprazole (Prevacid) 30 mg DAILY@06 GTB Last administered on 02/14/18at 06:15; Admin Dose 30 MG; Start 02/13/18 at 06:00 Apixaban (Eliquis) 2.5 mg BID PO Last administered on 02/14/18at 08:10; Admin Dose 2.5 MG; Start 02/12/18 at 21:00 Cefepime HCl 50 ml @ 100 mls/hr Q24H IVPB Last administered on 02/14/18at 08:10; Admin Dose 100 MLS/HR; Start 02/13/18 at 09:00 Oxycodone/ Acetaminophen (Percocet (5/ 325)) 1 tab Q4H PRN PO MODERATE PAIN LEVEL 4-6 Last administered on 02/14/18at 06:15; Admin Dose 1 TAB; Start 02/13/18 at 01:00 Lorazepam (Ativan) 0.5 mg Q12H PRN GTB restlessness; Start 02/13/18 at 11:00 Methylprednisolone Sodium Succinate (Solu-Medrol) 60 mg DAILY IV Last administered on 02/14/18at 08:10; Admin Dose 60 MG; Start 02/14/18 at 09:00 Vancomycin HCl (Vanco Iv Per Pharmacy) VANCOMYCIN PER PHARMACY PER PROTOCOL XX ; Start 02/14/18 at 08:00 Vancomycin HCl 1.5 gm/Sodium Chloride 250 ml @ 83.333 mls/ hr ONCE ONCE IVPB ; Start 02/14/18 at 10:00; Stop 02/14/18 at 12:59 Results Result Diagram: 02/14/18 0515 02/14/18 0515 Results 24 hrs Laboratory Tests Test 02/13/18 09:14 02/13/18 12:47 02/13/18 17:50 02/13/18 21:12 Bedside Glucose 186 189 208 223 H Test 02/14/18 01:52 02/14/18 05:14 02/14/18 05:15 02/14/18 08:02 Bedside Glucose 128 137 132 White Blood 16.0 #H Count Red Blood Count 3.97 L Hemoglobin 12.5 L Hematocrit 37.7 L Mean Corpuscular 95.0 Volume Mean Corpuscular 31.5 Hemoglobin Mean Corpuscular 33.2 Hemoglobin Naz nt Red Cell 13.4 Distribution Width Platelet Count 240 Mean Platelet 9.6 Volume Immature 0.900 H Granulocytes % Neutrophils % 84.3 H Lymphocytes % 5.4 L Monocytes % 9.2 Eosinophils % 0.1 Basophils % 0.1 Nucleated Red 0.0 Blood Cells % Immature 0.140 H Granulocytes # Neutrophils # 13.5 H Lymphocytes # 0.9 Monocytes # 1.5 H Eosinophils # 0.0 Basophils # 0.0 Nucleated Red 0.0 Blood Cells # Sodium Level 138 Potassium Level 4.5 Chloride Level 106 Carbon Dioxide 24 Level Anion Gap 8 Blood Urea 65 H Nitrogen Creatinine 1.30 H Est Glomerular Filtrat Rate mL/min Glucose Level 143 Calcium Level 8.7 Phosphorus Level 3.2 Magnesium Level 2.5 BRYAN CARLIN Feb 14, 2018 09:13
[2018-02-14] MEDS ORDERED: VANCOMYCIN 1.75 GM in SOD CHLORIDE 0.9% 500 ML IVPB ONE (10:00)
[2018-02-14] MEDS ORDERED: VANCOMYCIN 1.5 GM in SOD CHLORIDE 0.9% 250 ML IVPB ONE (10:00)
[2018-02-14] MEDS: hydrALAzine 20 MG INJ IV PRN (10:43)
--- NOTE | 2018-02-14 11:15 | NUR ---
RX NOTE RE: VANCOMYCIN PT TO START ON VANCOMYCIN PER RX HEIGHT: 70" WEIGHT: 79.1KG BUN/SCR: 65/1.3 TMAX: 98 WBC: 16 ALLERGIES: NKDA OTHER ABX: NONE LOAD VANCOMYCIN 1.5GM X1 TODAY, C/W VANCOMYCIN 1.25GM IV Q24HR. PHARMACY TO FOLLOW
--- NOTE | 2018-02-14 11:35 | CONS ---
Date/Time of Note Date/Time of Note DATE: 02/14/18 TIME: 11:34 Assessment/Plan Assessment/Plan Chief Complaint/Hosp Course IMP: 1.AF-rate controlled 2.CHF-diastolic acute on chronic 3.HTN-reasonable control 4.Pleural effusion s/p thoracentesis c/b PTX now s/p CT 5. Renal failure 6. Leukocytosis 7. anemia Recc: -ICU -Continue atenolol/dilt -Continue steroids/abx/bronchodilators -continue eliquis -Follow CT output closely Consultation Date/Type/Reason Admit Date/Time Feb 07, 2018 at 13:54 Initial Consult Date 02/07/18 Type of Consult cardiology Reason for Consultation AF Requesting Provider: FIDEL GAVIN MD Exam/Review of Systems Vital Signs Vitals Vital Signs Date Temp Pulse Resp B/P (MAP) Pulse Ox O2 O2 Flow FiO2 Time Delivery Rate 02/14/18 97.5 88 17 123/75 97 11:25 (91) 02/14/18 Nasal 2.0 09:00 Cannula 02/14/18 27 04:45 Intake and Output 02/13/18 02/13/18 02/14/18 1515:00 23:00 07:00 IntakeIntake Total 1040 ml 410 ml 150 ml OutputOutput Total 540 ml 675 ml 690 ml BalanceBalance 500 ml -265 ml -540 ml Exam Review of Systems: CONSTITUTIONAL: No fevers, chills. PULMONARY: No sob CARDIOVASCULAR: No chest pain/palpitations GASTROINTESTINAL: No nausea/vomiting. GENITOURINARY: No hematuria/dysuria. MUSCULOSKELETAL: No myagias/arthalgias. PSYCHIATRIC: The patient denies depression. NEUROLOGIC: No weakness Constitutional: alert Psych: no complaints Head: normocephalic ENMT: mucosa pink and moist Neck: supple, jvd (9 cm water) Respiratory: clear to auscultation Cardiovascular: regular rate and rhythm Gastrointestinal: soft, non-tender Musculoskeletal: muscle tone (normal) Extremities: edema (none) 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: other (No focal deficits) Medications Medications Current Medications IV Flush (NS 3 ml) 3 ml PER PROTOCOL IV ; Start 02/07/18 at 16:30 Ondansetron HCl (Zofran Inj) 4 mg Q6H PRN IV NAUSEA AND/OR VOMITING; Start 02/07/18 at 16:30 Acetaminophen (Tylenol Tab) 650 mg Q6H PRN PO PAIN LEVEL 1-3 OR FEVER; Start 02/07/18 at 16:30 Docusate Sodium (Colace) 100 mg Q12H PRN PO CONSTIPATION Last administered on 02/10/18at 20:07; Admin Dose 100 MG; Start 02/07/18 at 16:30 Diltiazem HCl (Cardizem) 60 mg Q8 PO Last administered on 02/14/18at 06:16; Admin Dose 60 MG; Start 02/07/18 at 17:00 Atenolol (Tenormin) 25 mg BID PO Last administered on 02/14/18at 08:10; Admin Dose 25 MG; Start 02/08/18 at 11:00 Guaifenesin/ Dextromethorphan (Robitussin Dm Liquid Cup) 30 ml Q4H PRN PO COUGH Last administered on 02/10/18at 18:11; Admin Dose 30 ML; Start 02/09/18 at 12:30 Levalbuterol (Xopenex Neb) 1.25 mg Q4H RESP THERAPY PRN HHN wheezing; Start 02/11/18 at 00:00 Hydralazine HCl (Apresoline) 10 mg Q4H PRN IV SBP>170 Last administered on 02/14/18at 10:43; Admin Dose 10 MG; Start 02/11/18 at 10:30 Miscellaneous Information 1 ea NOTE XX ; Start 02/11/18 at 11:00 Glucose (Glutose) 15 gm Q15M PRN PO DECREASED GLUCOSE; Start 02/11/18 at 11:00 Glucose (Glutose) 22.5 gm Q15M PRN PO DECREASED GLUCOSE; Start 02/11/18 at 11: 00 Dextrose (D50w Syringe) 25 ml Q15M PRN IV DECREASED GLUCOSE; Start 02/11/18 at 11:00 Dextrose (D50w Syringe) 50 ml Q15M PRN IV DECREASED GLUCOSE; Start 02/11/18 at 11:00 Glucagon (Glucagen) 1 mg Q15M PRN IM DECREASED GLUCOSE; Start 02/11/18 at 11:00 Glucose (Glutose) 15 gm Q15M PRN BUCCAL DECREASED GLUCOSE; Start 02/11/18 at 11:00 Insulin Aspart (Novolog Insulin Pen) NOVOLOG *MILD* ALGORI... Q4 SC Last administered on 02/13/18at 21:14; Admin Dose 3 UNIT; Start 02/11/18 at 21:00 Lansoprazole (Prevacid) 30 mg DAILY@06 GTB Last administered on 02/14/18at 06:15; Admin Dose 30 MG; Start 02/13/18 at 06:00 Apixaban (Eliquis) 2.5 mg BID PO Last administered on 02/14/18at 08:10; Admin Dose 2.5 MG; Start 02/12/18 at 21:00 Cefepime HCl 50 ml @ 100 mls/hr Q24H IVPB Last administered on 02/14/18at 08:10; Admin Dose 100 MLS/HR; Start 02/13/18 at 09:00 Oxycodone/ Acetaminophen (Percocet (5/ 325)) 1 tab Q4H PRN PO MODERATE PAIN LEVEL 4-6 Last administered on 02/14/18at 06:15; Admin Dose 1 TAB; Start 02/13/18 at 01:00 Lorazepam (Ativan) 0.5 mg Q12H PRN GTB restlessness; Start 02/13/18 at 11:00 Methylprednisolone Sodium Succinate (Solu-Medrol) 60 mg DAILY IV Last administered on 02/14/18at 08:10; Admin Dose 60 MG; Start 02/14/18 at 09:00 Vancomycin HCl (Vanco Iv Per Pharmacy) VANCOMYCIN PER PHARMACY PER PROTOCOL XX ; Start 02/14/18 at 08:00 Vancomycin HCl 1.5 gm/Sodium Chloride 250 ml @ 83.333 mls/ hr ONCE ONCE IVPB ; Start 02/14/18 at 10:00; Stop 02/14/18 at 12:59 Vancomycin HCl 1.25 gm/Sodium Chloride 250 ml @ 83.333 mls/ hr Q24H IVPB ; Start 02/15/18 at 12:00 Results Result Diagram: 02/14/18 0515 02/14/1815 Results 24 hrs Laboratory Tests Test 02/13/18 12:47 02/13/18 17:50 02/13/18 21:12 02/14/18 01:52 Bedside Glucose 189 208 223 H 128 Test 02/14/18 05:14 02/14/18 05:15 02/14/18 08:02 Bedside Glucose 137 132 White Blood 16.0 #H Count Red Blood Count 3.97 L Hemoglobin 12.5 L Hematocrit 37.7 L Mean Corpuscular 95.0 Volume Mean Corpuscular 31.5 Hemoglobin Mean Corpuscular 33.2 Hemoglobin Naz nt Red Cell 13.4 Distribution Width Platelet Count 240 Mean Platelet 9.6 Volume Immature 0.900 H Granulocytes % Neutrophils % 84.3 H Lymphocytes % 5.4 L Monocytes % 9.2 Eosinophils % 0.1 Basophils % 0.1 Nucleated Red 0.0 Blood Cells % Immature 0.140 H Granulocytes # Neutrophils # 13.5 H Lymphocytes # 0.9 Monocytes # 1.5 H Eosinophils # 0.0 Basophils # 0.0 Nucleated Red 0.0 Blood Cells # Sodium Level 138 Potassium Level 4.5 Chloride Level 106 Carbon Dioxide 24 Level Anion Gap 8 Blood Urea 65 H Nitrogen Creatinine 1.30 H Est Glomerular Filtrat Rate mL/min Glucose Level 143 Calcium Level 8.7 Phosphorus Level 3.2 Magnesium Level 2.5 CECE LOPEZ Feb 14, 2018 11:35
--- NOTE | 2018-02-14 13:26 | NUR ---
1030 Patient arrived on unit from ICU @ 1008, received report from Agnes RUSHING, VSS, denies pain, Chest tube intact and patent, yañez catheter patent and draining, oriented to room, call light within reach, bed alarm on, transfer photos completed, patient resting comfortably, will continue to monitor and assess.
[2018-02-14] MEDS ORDERED: LACTULOSE 30ML CUP PO PRN (14:00)
--- NOTE | 2018-02-14 17:27 | PN ---
Date/Time of Note Date/Time of Note DATE: 02/14/18 TIME: 17:25 Assessment/Plan VTE Prophylaxis Risk score (from Ns)>0 risk: 10 SCD applied (from Ns): Yes Pharmacological prophylaxis: NA/contraindicated Pharm contraindication: surgical contra Lines/Catheters IV Catheter Type (from [facility]): Peripheral IV Urinary Cath still in place: Yes Reason Cath still needed: urinary retention Assessment/Plan Hospital Course ASSESSMENT AND PLAN: This is a 77-year-old male who presented with: # Respiratory failure status post intubation on 1211 #. Shortness of breath likely secondary to congestive heart failure/chronic obstructive pulmonary disease exacerbation. # right-sided pneumothorax status post thoracentesis, now with chest tube , subcutanoeus emphysema # Large left pleural effusion, status post thoracentesis in the past. # History of chronic obstructive pulmonary disease. #. Atrial fibrillation with rapid ventricular response.controlled #. Hypertension. # EKG changes of atrial fibrillation with ST segment changes in the inferior leads. # History of lung cancer status post chemo and radiation.? NEW Lung metastases # History of coronary artery disease. #. Pleural effusion, status post thoracentesis. # Elevated BNP secondary to congestive heart failure. #. Hyponatremia. # History of peripheral vascular disease. # LEUKOCYTOSIS secondary to steroids # acute on chronic renal failure likely due to prerenal/ATN Overdiuresis, and uptrending continue to monitor urine monitor creatinine, cR 1.8 > trending down Plan -Chest x-ray with side worsening if pulmonary pleural effusion patient will likely need drainage will ask pulmonary for assistance -cr improving -Leukocytosis-could be secondary to steroids -Continue with nebs continue with Solu-Medrol continue with vancomycin/cefepime -cw with CT chest -f/u CTS recs - Taper steroids - cw with steroids insulin sliding scale - c w diltazem and atenolol - f/u cardiac and pul recs -- PT eval Subjective 24 Hr Interval Summary Free Text/Dictation Getting shortness of breath at times Exam/Review of Systems Vital Signs Vitals Vital Signs Date Temp Pulse Resp B/P (MAP) Pulse Ox O2 O2 Flow FiO2 Time Delivery Rate 02/14/18 91 16:01 02/14/18 97.5 15 126/77 99 15:20 (93) 02/14/18 Nasal 2.0 14:33 Cannula 02/14/18 27 04:45 Intake and Output 02/13/18 02/13/18 02/14/18 1515:00 23:00 07:00 IntakeIntake Total 1040 ml 410 ml 150 ml OutputOutput Total 540 ml 675 ml 690 ml BalanceBalance 500 ml -265 ml -540 ml Exam GENERAL: Intubated, awake on CPAP HEENT: Pupils are equal, round, reactive to light. NECK: Supple. HEART: Irregularly irregular. LUNGS: Diminished breath sounds, crackles on rt and dec on left, [place] ABDOMEN: Soft, nontender, nondistended, positive normoactive bowel sounds. EXTREMITIES: There is 1+ edema. Chest tube on the right Medications Medications Current Medications IV Flush (NS 3 ml) 3 ml PER PROTOCOL IV ; Start 02/07/18 at 16:30 Ondansetron HCl (Zofran Inj) 4 mg Q6H PRN IV NAUSEA AND/OR VOMITING; Start 02/07/18 at 16:30 Acetaminophen (Tylenol Tab) 650 mg Q6H PRN PO PAIN LEVEL 1-3 OR FEVER; Start 02/07/18 at 16:30 Docusate Sodium (Colace) 100 mg Q12H PRN PO CONSTIPATION Last administered on 02/10/18at 20:07; Admin Dose 100 MG; Start 02/07/18 at 16:30 Diltiazem HCl (Cardizem) 60 mg Q8 PO Last administered on 02/14/18at 14:35; Admin Dose 60 MG; Start 02/07/18 at 17:00 Atenolol (Tenormin) 25 mg BID PO Last administered on 02/14/18at 08:10; Admin Dose 25 MG; Start 02/08/18 at 11:00 Guaifenesin/ Dextromethorphan (Robitussin Dm Liquid Cup) 30 ml Q4H PRN PO COUGH Last administered on 02/10/18at 18:11; Admin Dose 30 ML; Start 02/09/18 at 12:30 Levalbuterol (Xopenex Neb) 1.25 mg Q4H RESP THERAPY PRN HHN wheezing Last administered on 02/14/18 14:17; Admin Dose 1.25 MG; Start 02/11/18 at 00:00 Hydralazine HCl (Apresoline) 10 mg Q4H PRN IV SBP>170 Last administered on 02/14/18at 10:43; Admin Dose 10 MG; Start 02/11/18 at 10:30 Miscellaneous Information 1 ea NOTE XX ; Start 02/11/18 at 11:00 Glucose (Glutose) 15 gm Q15M PRN PO DECREASED GLUCOSE; Start 02/11/18 at 11:00 Glucose (Glutose) 22.5 gm Q15M PRN PO DECREASED GLUCOSE; Start 02/11/18 at 11:00 Dextrose (D50w Syringe) 25 ml Q15M PRN IV DECREASED GLUCOSE; Start 02/11/18 at 11:00 Dextrose (D50w Syringe) 50 ml Q15M PRN IV DECREASED GLUCOSE; Start 02/11/18 at 11:00 Glucagon (Glucagen) 1 mg Q15M PRN IM DECREASED GLUCOSE; Start 02/11/18 at 11:00 Glucose (Glutose) 15 gm Q15M PRN BUCCAL DECREASED GLUCOSE; Start 02/11/18 at 11:00 Insulin Aspart (Novolog Insulin Pen) NOVOLOG *MILD* ALGORI... Q4 SC Last administered on 02/14/18at 17:01; Admin Dose 1 UNIT; Start 02/11/18 at 21:00 Lansoprazole (Prevacid) 30 mg DAILY@06 GTB Last administered on 02/14/18at 06:15; Admin Dose 30 MG; Start 02/13/18 at 06:00 Apixaban (Eliquis) 2.5 mg BID PO Last administered on 02/14/18at 08:10; Admin Dose 2.5 MG; Start 02/12/18 at 21:00 Cefepime HCl 50 ml @ 100 mls/hr Q24H IVPB Last administered on 02/14/18at 08:10; Admin Dose 100 MLS/HR; Start 02/13/18 at 09:00 Oxycodone/ Acetaminophen (Percocet (5/ 325)) 1 tab Q4H PRN PO MODERATE PAIN LEVEL 4-6 Last administered on 02/14/18at 06:15; Admin Dose 1 TAB; Start 02/13/18 at 01:00 Lorazepam (Ativan) 0.5 mg Q12H PRN GTB restlessness; Start 02/13/18 at 11:00 Methylprednisolone Sodium Succinate (Solu-Medrol) 60 mg DAILY IV Last administered on 02/14/18at 08:10; Admin Dose 60 MG; Start 02/14/18 at 09:00 Vancomycin HCl (Vanco Iv Per Pharmacy) VANCOMYCIN PER PHARMACY PER PROTOCOL XX ; Start 02/14/18 at 08:00 Vancomycin HCl 1.25 gm/Sodium Chloride 250 ml @ 83.333 mls/ hr Q24H IVPB ; Start 02/15/18 at 12:00 Lactulose (Enulose) 20 gm Q6H PRN PO CONSTIPATION Last administered on 02/14/18at 14:33; Admin Dose 20 GM; Start 02/14/18 at 14:00 Results Result Diagram: 02/14/18 0515 02/14/18 0515 Results 24 hrs Laboratory Tests Test 02/13/18 17:50 02/13/18 21:12 02/14/18 01:52 02/14/18 05:14 Bedside Glucose 208 223 H 128 137 Test 02/14/18 05:15 02/14/18 08:02 02/14/18 12:04 02/14/18 16:49 White Blood 16.0 #H Count Red Blood Count 3.97 L Hemoglobin 12.5 L Hematocrit 37.7 L Mean Corpuscular 95.0 Volume Mean Corpuscular 31.5 Hemoglobin Mean Corpuscular 33.2 Hemoglobin Naz nt Red Cell 13.4 Distribution Width Platelet Count 240 Mean Platelet 9.6 Volume Immature 0.900 H Granulocytes % Neutrophils % 84.3 H Lymphocytes % 5.4 L Monocytes % 9.2 Eosinophils % 0.1 Basophils % 0.1 Nucleated Red 0.0 Blood Cells % Immature 0.140 H Granulocytes # Neutrophils # 13.5 H Lymphocytes # 0.9 Monocytes # 1.5 H Eosinophils # 0.0 Basophils # 0.0 Nucleated Red 0.0 Blood Cells # Sodium Level 138 Potassium Level 4.5 Chloride Level 106 Carbon Dioxide 24 Level Anion Gap 8 Blood Urea 65 H Nitrogen Creatinine 1.30 H Est Glomerular Filtrat Rate mL/min Glucose Level 143 Calcium Level 8.7 Phosphorus Level 3.2 Magnesium Level 2.5 Bedside Glucose 132 153 169 FIDEL GAVIN MD Feb 14, 2018 17:27
--- NOTE | 2018-02-14 17:47 | NUR ---
EOSS Patient stable, VSS, denies pain, A/Ox2-3, patient is forgetful, some mild shortness of breath this afternoon but after a breathing treatment, increased O2 @ 3L NC and sitting the patient up in the chair he reported feeling relieved and no longer complained of any difficulty breathing, changed chest tube dressing, chest tube to water seal with minimal output, administered vancomycin, administered hydralazine once for hypertension and patient was responsive, blood glucose controlled, tolerating diet but constipated so initiated lactulose 20gm Q6H PRN until the patient has a bowel movement and first dose given this afternoon, patient's rhythm is atrial fibrillation controlled, physical therapy on board, patient currently comfortable up in chair will endorse care to security shift manager.
[2018-02-15] VITALS (22 sets, daily range): BP systolic 136–175; BP diastolic 61–94; PULSE 70–114; RESP 15–22
[2018-02-15] MEDS: INSULIN ASPART [NOVOLOG] 3 ML PEN SC SCH ×5 (01:00→20:12)
--- NOTE | 2018-02-15 01:30 | NUR ---
NOTES RECEIVED REPORT FROM DAY SHIFT. AWAKE ALERT SITTING ON CHAIR. WITH CHEST TUBE ON WATER SEAL., MARTE CATH ON FREE DRAIN. MEDS GIVEN. RETURN TO BED AND KEEP HIM COMFORTABLE. BLOOD SUGAR CHECKED AND NOTICE HIS RIGHT EYE WAS SWOLLEN HIS LAYING FLAT ON BE. INSTRUCTED TO KEEP HIS HEAD UP AND WE WILL MONITOR PT.
--- NOTE | 2018-02-15 03:51 | NUR ---
NOTES WHEN PALPATE ON HIS RIGHT CHEST CREPITUS NOTED. RE-INFORCEMENT DRESSING ON HIS CHEST DRAIN DONE. DR DEAN CALLED MADE ORDER NOTED. FOR STAT CHEST X-RAY. V/S CHECKED AND RECORDED. CHEST TUBE DRAIN CONNECTED TO LOW SUCTION ORDERED BY DR ORTIZ.
--- NOTE | 2018-02-15 04:20 | NUR ---
NOTES CHEST X-RAY DONE AWAITING FOR THE RESULT.
--- NOTE | 2018-02-15 04:50 | NUR ---
NOTES CHEST X-RAY RESULT.TRIED TO CALL DR ORTIZ AWAITING FOR HIM TO CALL BACK.
--- NOTE | 2018-02-15 05:00 | NUR ---
NOTES DR ORTIZ CALLED AGAIN AND LEAVE A MESSAGE REGARDING THE RESULT OF CHEST X-RAY.
--- NOTE | 2018-02-15 05:04 | NUR ---
NOTES FOR TRANSFER TO ICU ORDERED BY DR ORTIZ. SAME ORDER. FOR OBSERVATION.
[2018-02-15] MEDS: DILTIAZEM 60 MG TAB PO SCH ×3 (05:34→22:23)
[2018-02-15] MEDS: LANSOPRAZOLE 30 MG CAP GTB SCH (05:34)
--- NOTE | 2018-02-15 05:50 | NUR ---
ICU ADMISSION: PT WAS UPGRADED FROM TELE UNIT, PT WAS ORIGINALLY ADMITTED 02/07 FOR COPD, AND CHF. PT WITH LLL PNA, AND RT PNEUMOTHORAX SUSTAINED ON 02/08. PT WITH CHEST TUBE TO RT CHEST, TO LCS AT 20 CM. PT WAS TRANSFERRED PER DR ORTIZ, FOR SUDDEN ONSET OF SQ EMPHYSEMA TO RT SIDE OF NECK AND RT CHEST WALL. PT WAS FOUND WITH RT EYE SWELLING AT 0300.
[2018-02-15] MEDS: METHYLPREDNISOLONE 125 MG INJ IV SCH (08:35)
[2018-02-15] MEDS: APIXABAN 5 MG TABLET PO SCH ×2 (08:35→20:12)
[2018-02-15] MEDS: ATENOLOL 25 MG TAB PO SCH ×2 (08:35→20:04)
[2018-02-15] MEDS: CEFEPIME 1GM/50 ML (PMX) 50 ML IVPB SCH (08:36)
--- NOTE | 2018-02-15 08:37 | CONS ---
Date/Time of Note Date/Time of Note DATE: 02/15/18 TIME: 08:35 Assessment/Plan Assessment/Plan Additional Assessment/Plan Chest x-ray showing increasing left pleural effusion. Right-sided chest tube in place. No pneumothorax. Assessment recommendations; 1. Patient admitted with COPD exacerbation with left lower lobe pneumonia as well as bilateral pleural effusions and right pneumothorax, status post chest tube placement. 2. Persistent extensive spontaneous emphysema. 3. Chronic atrial fibrillation. 4. Improving renal function. 5. History of hypertension. Continue current supportive care. Obtain left-sided ultrasound-guided thoracentesis. Obtain chest x-ray 24 hours as well. Consultation Date/Type/Reason Admit Date/Time Feb 07, 2018 at 13:54 Initial Consult Date Type of Consult Pulmonary/critical care Requesting Provider: FIDEL GAVIN MD 24 HR Interval Summary Free Text/Dictation Patient's condition is gradually improving. He denies any significant shortness of breath. Any coughing, wheezing has improved. General exam; elderly male, awake alert, currently no distress. Exam/Review of Systems Vital Signs Vitals Vital Signs Date Temp Pulse Resp B/P (MAP) Pulse Ox O2 O2 Flow FiO2 Time Delivery Rate 02/15/18 97.8 77 22 151/69 100 Nasal 2.0 08:00 (96) Cannula 02/14/18 27 04:45 Intake and Output 02/14/18 02/14/18 02/15/18 1515:00 23:00 07:00 IntakeIntake Total 290 ml 1290 ml OutputOutput Total 150 ml 640 ml 1520 ml BalanceBalance 140 ml 650 ml -1520 ml Exam H EENT exam; supple neck, there is extensive right-sided subcutaneous facial emphysema. Patient has fair dentition. No neck masses. Neck supple kidneys emphysema also is present. Chest exam; diminished breath sounds bilaterally. Extensive right-sided chest wall subcu tenderness emphysema is present as well. Right-sided chest tube in place. S1-S2 audible, no murmurs. Irregular rhythm. Abdomen exam; soft, nontender. No organomegaly. Bowel sounds audible. Extremity exam; trace edema. 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 Medications Medications Current Medications IV Flush (NS 3 ml) 3 ml PER PROTOCOL IV ; Start 02/07/18 at 16:30 Ondansetron HCl (Zofran Inj) 4 mg Q6H PRN IV NAUSEA AND/OR VOMITING; Start 02/07/18 at 16:30 Acetaminophen (Tylenol Tab) 650 mg Q6H PRN PO PAIN LEVEL 1-3 OR FEVER; Start 02/07/18 at 16:30 Docusate Sodium (Colace) 100 mg Q12H PRN PO CONSTIPATION Last administered on 02/10/18at 20:07; Admin Dose 100 MG; Start 02/07/18 at 16:30 Diltiazem HCl (Cardizem) 60 mg Q8 PO Last administered on 02/15/18at 05:34; Admin Dose 60 MG; Start 02/07/18 at 17:00 Atenolol (Tenormin) 25 mg BID PO Last administered on 02/14/18at 20:48; Admin Dose 25 MG; Start 02/08/18 at 11:00 Guaifenesin/ Dextromethorphan (Robitussin Dm Liquid Cup) 30 ml Q4H PRN PO COUGH Last administered on 02/10/18at 18:11; Admin Dose 30 ML; Start 02/09/18 at 12:30 Levalbuterol (Xopenex Neb) 1.25 mg Q4H RESP THERAPY PRN HHN wheezing Last administered on 02/14/18at 14:17; Admin Dose 1.25 MG; Start 02/11/18 at 00:00 Hydralazine HCl (Apresoline) 10 mg Q4H PRN IV SBP>170 Last administered on 02/14/18at 10:43; Admin Dose 10 MG; Start 02/11/18 at 10:30 Miscellaneous Information 1 ea NOTE XX ; Start 02/11/18 at 11:00 Glucose (Glutose) 15 gm Q15M PRN PO DECREASED GLUCOSE; Start 02/11/18 at 11:00 Glucose (Glutose) 22.5 gm Q15M PRN PO DECREASED GLUCOSE; Start 02/11/18 at 11:00 Dextrose (D50w Syringe) 25 ml Q15M PRN IV DECREASED GLUCOSE; Start 02/11/18 at 11:00 Dextrose (D50w Syringe) 50 ml Q15M PRN IV DECREASED GLUCOSE; Start 02/11/18 at 11:00 Glucagon (Glucagen) 1 mg Q15M PRN IM DECREASED GLUCOSE; Start 02/11/18 at 11:00 Glucose (Glutose) 15 gm Q15M PRN BUCCAL DECREASED GLUCOSE; Start 02/11/18 at 11:00 Lansoprazole (Prevacid) 30 mg DAILY@06 GTB Last administered on 02/15/18at 05:34; Admin Dose 30 MG; Start 02/13/18 at 06:00 Apixaban (Eliquis) 2.5 mg BID PO Last administered on 02/14/18at 20:49; Admin Dose 2.5 MG; Start 02/12/18 at 21:00 Cefepime HCl 50 ml @ 100 mls/hr Q24H IVPB Last administered on 02/14/18at 08:10; Admin Dose 100 MLS/HR; Start 02/13/18 at 09:00 Oxycodone/ Acetaminophen (Percocet (5/ 325)) 1 tab Q4H PRN PO MODERATE PAIN LEVEL 4-6 Last administered on 02/14/18at 06:15; Admin Dose 1 TAB; Start 02/13/18 at 01:00 Lorazepam (Ativan) 0.5 mg Q12H PRN GTB restlessness; Start 02/13/18 at 11:00 Methylprednisolone Sodium Succinate (Solu-Medrol) 60 mg DAILY IV Last administered on 02/14/18at 08:10; Admin Dose 60 MG; Start 02/14/18 at 09:00 Vancomycin HCl (Vanco Iv Per Pharmacy) VANCOMYCIN PER PHARMACY PER PROTOCOL XX ; Start 02/14/18 at 08:00 Vancomycin HCl 1.25 gm/Sodium Chloride 250 ml @ 83.333 mls/ hr Q24H IVPB ; Start 02/15/18 at 12:00 Lactulose (Enulose) 20 gm Q6H PRN PO CONSTIPATION Last administered on 02/14/18at 14:33; Admin Dose 20 GM; Start 02/14/18 at 14:00 Insulin Aspart (Novolog Insulin Pen) NOVOLOG *MILD* ALGORITHM WITH MEALS BEDTIME SC ; Start 02/15/18 at 11:30 Results Result Diagram: 02/15/18 0800 02/14/18 0515 Results 24 hrs Laboratory Tests Test 02/14/18 12:04 02/14/18 16:49 02/14/18 20:46 02/15/18 01:22 Bedside Glucose 153 169 169 125 Test 02/15/18 05:07 02/15/18 08:00 Bedside Glucose 160 White Blood 21.3 #H Count Red Blood Count 4.19 L Hemoglobin 13.2 L Hematocrit 40.4 L Mean Corpuscular 96.4 Volume Mean Corpuscular 31.5 Hemoglobin Mean Corpuscular 32.7 Hemoglobin Naz nt Red Cell 13.9 Distribution Width Platelet Count 237 Mean Platelet 10.0 Volume Immature 1.000 H Granulocytes % Neutrophils % 79.1 H Lymphocytes % 7.4 L Monocytes % 11.9 H Eosinophils % 0.5 Basophils % 0.1 Nucleated Red 0.0 Blood Cells % Immature 0.210 H Granulocytes # Neutrophils # 16.9 H Lymphocytes # 1.6 Monocytes # 2.5 H Eosinophils # 0.1 Basophils # 0.0 Nucleated Red 0.0 Blood Cells # ALAN DICKERSON Feb 15, 2018 08:37
--- NOTE | 2018-02-15 10:43 | PN ---
Date/Time of Note Date/Time of Note DATE: 02/15/18 TIME: 10:43 Assessment/Plan VTE Prophylaxis Risk score (from Nsg)>0 risk: 4 SCD applied (from Nsg): Yes Lines/Catheters IV Catheter Type (from Nrsg): Peripheral IV Urinary Cath still in place: Yes Assessment/Plan Hospital Course ASSESSMENT AND PLAN: This is a 77-year-old male who presented with: # Respiratory failure status post intubation on 1211 #. Shortness of breath likely secondary to congestive heart failure/chronic obstructive pulmonary disease exacerbation. # right-sided pneumothorax status post thoracentesis, now with chest tube , subcutanoeus emphysema # Large left pleural effusion, status post thoracentesis in the past. # History of chronic obstructive pulmonary disease. #. Atrial fibrillation with rapid ventricular response.controlled #. Hypertension. # EKG changes of atrial fibrillation with ST segment changes in the inferior leads. # History of lung cancer status post chemo and radiation.? NEW Lung metastases # History of coronary artery disease. #. Pleural effusion, status post thoracentesis. # Elevated BNP secondary to congestive heart failure. #. Hyponatremia. # History of peripheral vascular disease. # LEUKOCYTOSIS secondary to steroids # acute on chronic renal failure likely due to prerenal/ATN Overdiuresis, and uptrending continue to monitor urine monitor creatinine, cR 1.8 > trending down Plan -Chest x-ray with side worsening if pulmonary pleural effusion patient will likely need drainage will ask pulmonary for assistance -cr improving -Leukocytosis-could be secondary to steroids -Continue with nebs continue with Solu-Medrol continue with vancomycin/cefepime -cw with CT chest -f/u CTS recs - Taper steroids - cw with steroids insulin sliding scale - c w diltazem and atenolol - f/u cardiac and pul recs -- PT eval Exam/Review of Systems Vital Signs Vitals Vital Signs Date Temp Pulse Resp B/P (MAP) Pulse Ox O2 O2 Flow FiO2 Time Delivery Rate 02/15/18 97.8 77 22 151/69 100 Nasal 2.0 08:00 (96) Cannula 02/14/18 27 04:45 Intake and Output 02/14/18 02/14/18 02/15/18 1515:00 23:00 07:00 IntakeIntake Total 290 ml 1290 ml OutputOutput Total 150 ml 640 ml 1615 ml BalanceBalance 140 ml 650 ml -1615 ml Medications Medications Current Medications IV Flush (NS 3 ml) 3 ml PER PROTOCOL IV ; Start 02/07/18 at 16:30 Ondansetron HCl (Zofran Inj) 4 mg Q6H PRN IV NAUSEA AND/OR VOMITING; Start 02/07/18 at 16:30 Acetaminophen (Tylenol Tab) 650 mg Q6H PRN PO PAIN LEVEL 1-3 OR FEVER; Start 02/07/18 at 16:30 Docusate Sodium (Colace) 100 mg Q12H PRN PO CONSTIPATION Last administered on 02/10/18at 20:07; Admin Dose 100 MG; Start 02/07/18 at 16:30 Diltiazem HCl (Cardizem) 60 mg Q8 PO Last administered on 02/15/18at 05:34; Admin Dose 60 MG; Start 02/07/18 at 17:00 Atenolol (Tenormin) 25 mg BID PO Last administered on 02/15/18at 08:35; Admin Dose 25 MG; Start 02/08/18 at 11:00 Guaifenesin/ Dextromethorphan (Robitussin Dm Liquid Cup) 30 ml Q4H PRN PO COUGH Last administered on 02/10/18at 18:11; Admin Dose 30 ML; Start 02/09/18 at 12:30 Levalbuterol (Xopenex Neb) 1.25 mg Q4H RESP THERAPY PRN HHN wheezing Last administered on 02/14/18at 14:17; Admin Dose 1.25 MG; Start 02/11/18 at 00:00 Hydralazine HCl (Apresoline) 10 mg Q4H PRN IV SBP>170 Last administered on 02/14/18at 10:43; Admin Dose 10 MG; Start 02/11/18 at 10:30 Miscellaneous Information 1 ea NOTE XX ; Start 02/11/18 at 11:00 Glucose (Glutose) 15 gm Q15M PRN PO DECREASED GLUCOSE; Start 02/11/18 at 11:00 Glucose (Glutose) 22.5 gm Q15M PRN PO DECREASED GLUCOSE; Start 02/11/18 at 11:00 Dextrose (D50w Syringe) 25 ml Q15M PRN IV DECREASED GLUCOSE; Start 02/11/18 at 11:00 Dextrose (D50w Syringe) 50 ml Q15M PRN IV DECREASED GLUCOSE; Start 02/11/18 at 11:00 Glucagon (Glucagen) 1 mg Q15M PRN IM DECREASED GLUCOSE; Start 02/11/18 at 11:00 Glucose (Glutose) 15 gm Q15M PRN BUCCAL DECREASED GLUCOSE; Start 02/11/18 at 11:00 Lansoprazole (Prevacid) 30 mg DAILY@06 GTB Last administered on 02/15/18at 05:34; Admin Dose 30 MG; Start 02/13/18 at 06:00 Apixaban (Eliquis) 2.5 mg BID PO Last administered on 02/15/18at 08:35; Admin Dose 2.5 MG; Start 02/12/18 at 21:00 Cefepime HCl 50 ml @ 100 mls/hr Q24H IVPB Last administered on 02/15/18at 08:36; Admin Dose 100 MLS/HR; Start 02/13/18 at 09:00 Oxycodone/ Acetaminophen (Percocet (5/ 325)) 1 tab Q4H PRN PO MODERATE PAIN L EVEL 4-6 Last administered on 02/14/18at 06:15; Admin Dose 1 TAB; Start 02/13/18 at 01:00 Lorazepam (Ativan) 0.5 mg Q12H PRN GTB restlessness; Start 02/13/18 at 11:00 Methylprednisolone Sodium Succinate (Solu-Medrol) 60 mg DAILY IV Last administered on 02/15/18at 08:35; Admin Dose 60 MG; Start 02/14/18 at 09:00 Vancomycin HCl (Vanco Iv Per Pharmacy) VANCOMYCIN PER PHARMACY PER PROTOCOL XX ; Start 02/14/18 at 08:00 Vancomycin HCl 1.25 gm/Sodium Chloride 250 ml @ 83.333 mls/ hr Q24H IVPB ; Start 02/15/18 at 12:00 Lactulose (Enulose) 20 gm Q6H PRN PO CONSTIPATION Last administered on at 14:33; Admin Dose 20 GM; Start 02/14/18 at 14:00 Insulin Aspart (Novolog Insulin Pen) NOVOLOG *MILD* ALGORITHM WITH MEALS BEDTIME SC ; Start 02/15/18 at 11:30 Results Result Diagram: 02/15/18 0800 02/15/18 0800 Results 24 hrs Laboratory Tests Test 02/14/18 12:04 02/14/18 16:49 02/14/18 20:46 02/15/18 01:22 Bedside Glucose 153 169 169 125 Test 02/15/18 05:07 02/15/18 08:00 Bedside Glucose 160 White Blood 21.3 #H Count Red Blood Count 4.19 L Hemoglobin 13.2 L Hematocrit 40.4 L Mean Corpuscular 96.4 Volume Mean Corpuscular 31.5 Hemoglobin Mean Corpuscular 32.7 Hemoglobin Naz nt Red Cell 13.9 Distribution Width Platelet Count 237 Mean Platelet 10.0 Volume Immature 1.000 H Granulocytes % Neutrophils % 79.1 H Lymphocytes % 7.4 L Monocytes % 11.9 H Eosinophils % 0.5 Basophils % 0.1 Nucleated Red 0.0 Blood Cells % Immature 0.210 H Granulocytes # Neutrophils # 16.9 H Lymphocytes # 1.6 Monocytes # 2.5 H Eosinophils # 0.1 Basophils # 0.0 Nucleated Red 0.0 Blood Cells # Sodium Level 139 Potassium Level 5.4 H Chloride Level 105 Carbon Dioxide 22 Level Anion Gap 12 Blood Urea 58 H Nitrogen Creatinine 1.22 Est Glomerular Filtrat Rate mL/min Glucose Level 128 Calcium Level 9.2 Phosphorus Level 3.7 Magnesium Level 2.5 FIDEL GAVIN MD Feb 15, 2018 10:43
--- NOTE | 2018-02-15 10:45 | PN ---
Date/Time of Note Date/Time of Note DATE: 02/15/18 TIME: 10:45 Assessment/Plan VTE Prophylaxis Risk score (from Ns)>0 risk: 4 SCD applied (from Ns): Yes Pharmacological prophylaxis: NA/contraindicated, other Pharm contraindication: low risk/ambulating Lines/Catheters [facility] IV Urinary Cath still in place: Yes Reason Cath still needed: urinary retention Assessment/Plan Hospital Course ASSESSMENT AND PLAN: This is a 77-year-old male who presented with: # Respiratory failure status post intubation on 1211 #. Shortness of breath likely secondary to congestive heart failure/chronic obstructive pulmonary disease exacerbation. # right-sided pneumothorax status post thoracentesis, now with chest tube , subcutanoeus emphysema # Large left pleural effusion, status post thoracentesis in the past. # History of chronic obstructive pulmonary disease. #. Atrial fibrillation with rapid ventricular response.controlled #. Hypertension. # EKG changes of atrial fibrillation with ST segment changes in the inferior leads. # History of lung cancer status post chemo and radiation.? NEW Lung metastases # History of coronary artery disease. #. Pleural effusion, status post thoracentesis. # Elevated BNP secondary to congestive heart failure. #. Hyponatremia. # History of peripheral vascular disease. # LEUKOCYTOSIS secondary to steroids # acute on chronic renal failure likely due to prerenal/ATN Overdiuresis, and uptrending continue to monitor urine monitor creatinine, cR 1.8 > trending down #Mild hyperkalemia #Stream puffiness around the right eye due to extensive subcutaneous emphysema, and on the soft tissue CT Plan -Ultrasound guided thoracentesis by pulmonary -cr improving -Kayexalate -Leukocytosis-could be secondary to steroids, need to monitor -Continue with nebs continue with Solu-Medrol continue with vancomycin/cefepime -cw with CT chest -f/u CTS recs - Taper steroids - cw with steroids insulin sliding scale - c w diltazem and atenolol - f/u cardiac and pul recs -- PT eval Subjective 24 Hr Interval Summary Free Text/Dictation And was transferred to ICU overnight as patient had developed subcutaneous emphysema and had developed swelling around the right eye Patient has extreme swelling of the right eye which is all swollen puffy and able to close the right eye however patient is still in good spirits Some shortness of breath Exam/Review of Systems Vital Signs Vitals Vital Signs Date Temp Pulse Resp B/P (MAP) Pulse Ox O2 O2 Flow FiO2 Time Delivery Rate 02/15/18 97.8 77 22 151/69 100 Nasal 2.0 08:00 (96) Cannula 02/14/18 27 04:45 Intake and Output 02/14/18 02/14/18 02/15/18 1515:00 23:00 07:00 IntakeIntake Total 290 ml 1290 ml OutputOutput Total 150 ml 640 ml 1615 ml BalanceBalance 140 ml 650 ml -1615 ml Exam Exam GENERAL: Right eye puffiness is markedly swollen and able to close the right eye HEENT: Pupils are equal, round, reactive to light. NECK: Supple. HEART: Irregularly irregular. LUNGS: Diminished breath sounds, crackles on rt and dec on left, [place] ABDOMEN: Soft, nontender, nondistended, positive normoactive bowel sounds. EXTREMITIES: There is 1+ edema. Chest tube on the right Medications Medications Current Medications IV Flush (NS 3 ml) 3 ml PER PROTOCOL IV ; Start 02/07/18 at 16:30 Ondansetron HCl (Zofran Inj) 4 mg Q6H PRN IV NAUSEA AND/OR VOMITING; Start 02/07/18 at 16:30 Acetaminophen (Tylenol Tab) 650 mg Q6H PRN PO PAIN LEVEL 1-3 OR FEVER; Start 02/07/18 at 16:30 Docusate Sodium (Colace) 100 mg Q12H PRN PO CONSTIPATION Last administered on 02/10/18at 20:07; Admin Dose 100 MG; Start 02/07/18 at 16:30 Diltiazem HCl (Cardizem) 60 mg Q8 PO Last administered on 02/15/18at 05:34; Admin Dose 60 MG; Start 02/07/18 at 17:00 Atenolol (Tenormin) 25 mg BID PO Last administered on 02/15/18at 08:35; Admin Dose 25 MG; Start 02/08/18 at 11:00 Guaifenesin/ Dextromethorphan (Robitussin Dm Liquid Cup) 30 ml Q4H PRN PO COUGH Last administered on 02/10/18at 18:11; Admin Dose 30 ML; Start 02/09/18 at 12:30 Levalbuterol (Xopenex Neb) 1.25 mg Q4H RESP THERAPY PRN HHN wheezing Last administered on 02/14/18at 14:17; Admin Dose 1.25 MG; Start 02/11/18 at 00:00 Hydralazine HCl (Apresoline) 10 mg Q4H PRN IV SBP>170 Last administered on 02/14/18at 10:43; Admin Dose 10 MG; Start 02/11/18 at 10:30 Miscellaneous Information 1 ea NOTE XX ; Start 02/11/18 at 11:00 Glucose (Glutose) 15 gm Q15M PRN PO DECREASED GLUCOSE; Start 02/11/18 at 11:00 Glucose (Glutose) 22.5 gm Q15M PRN PO DECREASED GLUCOSE; Start 02/11/18 at 11:00 Dextrose (D50w Syringe) 25 ml Q15M PRN IV DECREASED GLUCOSE; Start 02/11/18 at 11:00 Dextrose (D50w Syringe) 50 ml Q15M PRN IV DECREASED GLUCOSE; Start 02/11/18 at 11:00 Glucagon (Glucagen) 1 mg Q15M PRN IM DECREASED GLUCOSE; Start 02/11/18 at 11:00 Glucose (Glutose) 15 gm Q15M PRN BUCCAL DECREASED GLUCOSE; Start 02/11/18 at 11:00 Lansoprazole (Prevacid) 30 mg DAILY@06 GTB Last administered on 02/15/18at 05:34; Admin Dose 30 MG; Start 02/13/18 at 06:00 Apixaban (Eliquis) 2.5 mg BID PO Last administered on 02/15/18at 08:35; Admin Dose 2.5 MG; Start 02/12/18 at 21:00 Cefepime HCl 50 ml @ 100 mls/hr Q24H IVPB Last administered on 02/15/18at 08:36; Admin Dose 100 MLS/HR; Start 02/13/18 at 09:00 Oxycodone/ Acetaminophen (Percocet (5/ 325)) 1 tab Q4H PRN PO MODERATE PAIN L EVEL 4-6 Last administered on 02/14/18at 06:15; Admin Dose 1 TAB; Start 02/13/18 at 01:00 Lorazepam (Ativan) 0.5 mg Q12H PRN GTB restlessness; Start 02/13/18 at 11:00 Methylprednisolone Sodium Succinate (Solu-Medrol) 60 mg DAILY IV Last administered on 02/15/18at 08:35; Admin Dose 60 MG; Start 02/14/18 at 09:00 Vancomycin HCl (Vanco Iv Per Pharmacy) VANCOMYCIN PER PHARMACY PER PROTOCOL XX ; Start 02/14/18 at 08:00 Vancomycin HCl 1.25 gm/Sodium Chloride 250 ml @ 83.333 mls/ hr Q24H IVPB ; Start 02/15/18 at 12:00 Lactulose (Enulose) 20 gm Q6H PRN PO CONSTIPATION Last administered on at 14:33; Admin Dose 20 GM; Start 02/14/18 at 14:00 Insulin Aspart (Novolog Insulin Pen) NOVOLOG *MILD* ALGORITHM WITH MEALS BEDTIME SC ; Start 02/15/18 at 11:30 Results Result Diagram: 02/15/18 0800 02/15/18 0800 Results 24 hrs Laboratory Tests Test 02/14/18 12:04 02/14/18 16:49 02/14/18 20:46 02/15/18 01:22 Bedside Glucose 153 169 169 125 Test 02/15/18 05:07 02/15/18 08:00 Bedside Glucose 160 White Blood 21.3 #H Count Red Blood Count 4.19 L Hemoglobin 13.2 L Hematocrit 40.4 L Mean Corpuscular 96.4 Volume Mean Corpuscular 31.5 Hemoglobin Mean Corpuscular 32.7 Hemoglobin Naz nt Red Cell 13.9 Distribution Width Platelet Count 237 Mean Platelet 10.0 Volume Immature 1.000 H Granulocytes % Neutrophils % 79.1 H Lymphocytes % 7.4 L Monocytes % 11.9 H Eosinophils % 0.5 Basophils % 0.1 Nucleated Red 0.0 Blood Cells % Immature 0.210 H Granulocytes # Neutrophils # 16.9 H Lymphocytes # 1.6 Monocytes # 2.5 H Eosinophils # 0.1 Basophils # 0.0 Nucleated Red 0.0 Blood Cells # Sodium Level 139 Potassium Level 5.4 H Chloride Level 105 Carbon Dioxide 22 Level Anion Gap 12 Blood Urea 58 H Nitrogen Creatinine 1.22 Est Glomerular Filtrat Rate mL/min Glucose Level 128 Calcium Level 9.2 Phosphorus Level 3.7 Magnesium Level 2.5 FIDEL GAVIN MD Feb 15, 2018 10:45
--- NOTE | 2018-02-15 10:48 | CONS ---
Date/Time of Note Date/Time of Note DATE: 02/15/18 TIME: 10:45 Assessment/Plan Assessment/Plan Chief Complaint/Hosp Course IMP: 1.AF-rate controlled 2.CHF-diastolic acute on chronic 3.HTN-reasonable control 4.Pleural effusion s/p thoracentesis c/b PTX now s/p CT 5. Renal failure 6. Leukocytosis 7. anemia 8. SQ emphysema extensive-tracking up into face and around eye Recc: -ICU -Continue atenolol/dilt -Continue steroids/abx/bronchodilators -continue eliquis -Follow CT output closely -Follow exam with SQ emphysema closely Consultation Date/Type/Reason Admit Date/Time Feb 07, 2018 at 13:54 Initial Consult Date 02/07/18 Type of Consult cardiology Reason for Consultation AF Requesting Provider: FIDEL GAVIN MD Exam/Review of Systems Vital Signs Vitals Vital Signs Date Temp Pulse Resp B/P (MAP) Pulse Ox O2 O2 Flow FiO2 Time Delivery Rate 02/15/18 97.8 77 22 151/69 100 Nasal 2.0 08:00 (96) Cannula 02/14/18 27 04:45 Intake and Output 02/14/18 02/14/18 02/15/18 1515:00 23:00 07:00 IntakeIntake Total 290 ml 1290 ml OutputOutput Total 150 ml 640 ml 1615 ml BalanceBalance 140 ml 650 ml -1615 ml Exam Review of Systems: CONSTITUTIONAL: No fevers, chills. PULMONARY: No sob CARDIOVASCULAR: No chest pain/palpitations GASTROINTESTINAL: No nausea/vomiting. GENITOURINARY: No hematuria/dysuria. MUSCULOSKELETAL: No myagias/arthalgias. PSYCHIATRIC: The patient denies depression. NEUROLOGIC: No weakness Constitutional: alert Head: other (SQ emphysema extending into face/around eye) ENMT: mucosa pink and moist Neck: supple, jvd (9 cm water) Respiratory: clear to auscultation, other (R sidede CT) Cardiovascular: regular rate and rhythm Gastrointestinal: soft, non-tender Musculoskeletal: muscle tone (normal) Extremities: edema (none) 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: other (No focal deficits) Medications Medications Current Medications IV Flush (NS 3 ml) 3 ml PER PROTOCOL IV ; Start 02/07/18 at 16:30 Ondansetron HCl (Zofran Inj) 4 mg Q6H PRN IV NAUSEA AND/OR VOMITING; Start 02/07/18 at 16:30 Acetaminophen (Tylenol Tab) 650 mg Q6H PRN PO PAIN LEVEL 1-3 OR FEVER; Start 02/07/18 at 16:30 Docusate Sodium (Colace) 100 mg Q12H PRN PO CONSTIPATION Last administered on 02/10/18at 20:07; Admin Dose 100 MG; Start 02/07/18 at 16:30 Diltiazem HCl (Cardizem) 60 mg Q8 PO Last administered on 02/15/18at 05:34; Admin Dose 60 MG; Start 02/07/18 at 17:00 Atenolol (Tenormin) 25 mg BID PO Last administered on 02/15/18at 08:35; Admin Dose 25 MG; Start 02/08/18 at 11:00 Guaifenesin/ Dextromethorphan (Robitussin Dm Liquid Cup) 30 ml Q4H PRN PO COUGH Last administered on 02/10/18at 18:11; Admin Dose 30 ML; Start 02/09/18 at 12:30 Levalbuterol (Xopenex Neb) 1.25 mg Q4H RESP THERAPY PRN HHN wheezing Last administered on 02/14/18at 14:17; Admin Dose 1.25 MG; Start 02/11/18 at 00:00 Hydralazine HCl (Apresoline) 10 mg Q4H PRN IV SBP>170 Last administered on 02/14/18at 10:43; Admin Dose 10 MG; Start 02/11/18 at 10:30 Miscellaneous Information 1 ea NOTE XX ; Start 02/11/18 at 11:00 Glucose (Glutose) 15 gm Q15M PRN PO DECREASED GLUCOSE; Start 02/11/18 at 11:00 Glucose (Glutose) 22.5 gm Q15M PRN PO DECREASED GLUCOSE; Start 02/11/18 at 11:00 Dextrose (D50w Syringe) 25 ml Q15M PRN IV DECREASED GLUCOSE; Start 02/11/18 at 11:00 Dextrose (D50w Syringe) 50 ml Q15M PRN IV DECREASED GLUCOSE; Start 02/11/18 at 11:00 Glucagon (Glucagen) 1 mg Q15M PRN IM DECREASED GLUCOSE; Start 02/11/18 at 11:00 Glucose (Glutose) 15 gm Q15M PRN BUCCAL DECREASED GLUCOSE; Start 02/11/18 at 11:00 Lansoprazole (Prevacid) 30 mg DAILY@06 GTB Last administered on 02/15/18at 05:34; Admin Dose 30 MG; Start 02/13/18 at 06:00 Apixaban (Eliquis) 2.5 mg BID PO Last administered on 02/15/18at 08:35; Admin Dose 2.5 MG; Start 02/12/18 at 21:00 Cefepime HCl 50 ml @ 100 mls/hr Q24H IVPB Last administered on 02/15/18at 08:36; Admin Dose 100 MLS/HR; Start 02/13/18 at 09:00 Oxycodone/ Acetaminophen (Percocet (5/ 325)) 1 tab Q4H PRN PO MODERATE PAIN LEVEL 4-6 Last administered on 02/14/18at 06:15; Admin Dose 1 TAB; Start 02/13/18 at 01:00 Lorazepam (Ativan) 0.5 mg Q12H PRN GTB restlessness; Start 02/13/18 at 11:00 Methylprednisolone Sodium Succinate (Solu-Medrol) 60 mg DAILY IV Last administered on 02/15/18at 08:35; Admin Dose 60 MG; Start 02/14/18 at 09:00 Vancomycin HCl (Vanco Iv Per Pharmacy) VANCOMYCIN PER PHARMACY PER PROTOCOL XX ; Start 02/14/18 at 08:00 Vancomycin HCl 1.25 gm/Sodium Chloride 250 ml @ 83.333 mls/ hr Q24H IVPB ; Start 02/15/18 at 12:00 Lactulose (Enulose) 20 gm Q6H PRN PO CONSTIPATION Last administered on 02/14/18at 14:33; Admin Dose 20 GM; Start 02/14/18 at 14:00 Insulin Aspart (Novolog Insulin Pen) NOVOLOG *MILD* ALGORITHM WITH MEALS BEDTIME SC ; Start 02/15/18 at 11:30 Results Result Diagram: 02/15/18 0800 02/15/18 0800 Results 24 hrs Laboratory Tests Test 02/14/18 12:04 02/14/18 16:49 02/14/18 20:46 02/15/18 01:22 Bedside Glucose 153 169 169 125 Test 02/15/18 05:07 02/15/18 08:00 Bedside Glucose 160 White Blood 21.3 #H Count Red Blood Count 4.19 L Hemoglobin 13.2 L Hematocrit 40.4 L Mean Corpuscular 96.4 Volume Mean Corpuscular 31.5 Hemoglobin Mean Corpuscular 32.7 Hemoglobin Naz nt Red Cell 13.9 Distribution Width Platelet Count 237 Mean Platelet 10.0 Volume Immature 1.000 H Granulocytes % Neutrophils % 79.1 H Lymphocytes % 7.4 L Monocytes % 11.9 H Eosinophils % 0.5 Basophils % 0.1 Nucleated Red 0.0 Blood Cells % Immature 0.210 H Granulocytes # Neutrophils # 16.9 H Lymphocytes # 1.6 Monocytes # 2.5 H Eosinophils # 0.1 Basophils # 0.0 Nucleated Red 0.0 Blood Cells # Sodium Level 139 Potassium Level 5.4 H Chloride Level 105 Carbon Dioxide 22 Level Anion Gap 12 Blood Urea 58 H Nitrogen Creatinine 1.22 Est Glomerular Filtrat Rate mL/min Glucose Level 128 Calcium Level 9.2 Phosphorus Level 3.7 Magnesium Level 2.5 CECE LOPEZ Feb 15, 2018 10:48
--- NOTE | 2018-02-15 11:00 | NUR ---
NURSING NOTES GOT A CALL FROM [employer] IN REGARDS TO THORACENTESIS TO INQUIRE IF BLOOD THINNERS HAVE BEEN GIVEN.. INFORMED THAT PATIENT IS ON ELLIQUIS AND DOSE WAS GIVEN TODAY AT 0900. PER TECH TO HOLD MED AND WILL BE AMENDED FOR TOMORROW AM.
--- NOTE | 2018-02-15 11:25 | NUR ---
PT note Therapy day number 2 Subjective Current complaint of pain Pain Scale FLACC Pain Intensity 2 (0-10) Patient Stated Goal for Pain Relief 0 (0-10) Pain Level Comment at R chest tube insertion Pre Treatment Vital Signs Stable Yes Transfer Training Start Time 11:25 Supine to Sit Minimum Assist Transfer Sit to Stand Ability Minimum Assist Bed Mobility Sit to Supine Minimum Assist Bed Transfer Ability Minimum Assist Chair Transfer Ability Minimum Assist Additional Mobility Comments min A with use of FWW Transfer Training End Time 11:50 Total Transfer Training Time 25 min (8-127) Gait Training Start Time 11:50 Gait Assist Levels Minimum Assist Assistive Devices Front Wheel Walker Ambulation Distance 8 feet Additional Gait Comments limited by lines and tubes Gait Training End Time 12:05 Total Gait Training Treatment Time 15 min (8-127) Static Sitting Balance Fair Dynamic Sitting Balance Fair Standing Static Balance Fair Dynamic Standing Balance Fair Safety Judgement Fair Activity Tolerance Fair Equipment Present Bar Catheter IV pump Additional Equipment Present chest tube, multiple lines Post Treatment Pain Intensity 2 0-10 Total Treament Time 40 min (8-127) Total Minutes 40 Total Units 3 PT Technical Record Comment S: Pt in bed, agreeable to PT intervention. Pt cleared for activity per RN O: PT intervention completed, pt returned back to bed following therapy intervention with call light within reach in direct care of RN. No reports of pain, dizziness, or shortness of breath with activity. Performed gait training with use of FWW however limited by line management. Spoke to RN regarding pt response to activity and PT plan of care. A: Patient demonstrates significantly improved mobility with improved tolerance to use of RUE. Patient reports improves stability and confidence with FWW. Patient motivated to participate in therapy and receptive to care, however primarily limitated by lines and tubes. P: Progress gait as tolerated with FWW for assist, decrease UE support
[2018-02-15] MEDS ORDERED: NA POLYST SULFON 15 GM/60 ML BTL PO ONE (12:00)
--- NOTE | 2018-02-15 12:24 | CONS ---
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 Now with pleural effusion s/p thoracentesis, complicated by PTX and who was intubated in ICU, now extubated -f/u cytology on pleural effusion is negative for malignancy -when he is more stable, check CT chest with contrast -mild leukocytosis likely reactive, WBC vacillating, no abnormal forms in diff -mild anemia, suspect due to anemia of chronic disease, hgb now improved -once he is more stable and he can have CT chest with contrast will better be able to assess if he has disease recurrence. Can be done as out pt as ideally should be done with contrast and do not want to exacerbate his renal function. cont current care per ICU for now and Dr Roberson Will sign off please call with questions Consultation Date/Type/Reason Admit Date/Time Feb 07, 2018 at 13:54 Initial Consult Date Requesting Provider: FIDEL ROBERSON MD 24 HR Interval Summary Free Text/Dictation notes right eye swelling, no trauma no allergy as far as he knows Exam/Review of Systems Vital Signs Vitals Vital Signs Date Temp Pulse Resp B/P (MAP) Pulse Ox O2 O2 Flow FiO2 Time Delivery Rate 02/15/18 82 22 137/82 99 Nasal 2.0 11:00 (100) Cannula 02/15/18 97.8 08:00 02/14/18 27 04:45 Intake and Output 02/14/18 02/14/18 02/15/18 1414:59 22:59 06:59 IntakeIntake Total 290 ml 1290 ml OutputOutput Total 225 ml 640 ml 1520 ml BalanceBalance 65 ml 650 ml -1520 ml Exam Constitutional: alert, oriented, well developed, frail Head: normocephalic, atraumatic Eyes: other (very swollen right upper and lower eye lid) ENMT: nl external ears & nose, nl lips & teeth, nl nasal mucosa & septum Cardiovascular: regular rate and rhythm, nl pulses Gastrointestinal: soft, nl liver, spleen, non-tender Medications Medications Current Medications IV Flush (NS 3 ml) 3 ml PER PROTOCOL IV ; Start 02/07/18 at 16:30 Ondansetron HCl (Zofran Inj) 4 mg Q6H PRN IV NAUSEA AND/OR VOMITING; Start 02/07/18 at 16:30 Acetaminophen (Tylenol Tab) 650 mg Q6H PRN PO PAIN LEVEL 1-3 OR FEVER; Start 02/07/18 at 16:30 Docusate Sodium (Colace) 100 mg Q12H PRN PO CONSTIPATION Last administered on 02/10/18at 20:07; Admin Dose 100 MG; Start 02/07/18 at 16:30 Diltiazem HCl (Cardizem) 60 mg Q8 PO Last administered on 02/15/18at 05:34; Admin Dose 60 MG; Start 02/07/18 at 17:00 Atenolol (Tenormin) 25 mg BID PO Last administered on 02/15/18at 08:35; Admin Dose 25 MG; Start 02/08/18 at 11:00 Guaifenesin/ Dextromethorphan (Robitussin Dm Liquid Cup) 30 ml Q4H PRN PO COUGH Last administered on 02/10/18at 18:11; Admin Dose 30 ML; Start 02/09/18 at 12:30 Levalbuterol (Xopenex Neb) 1.25 mg Q4H RESP THERAPY PRN HHN wheezing Last administered on 02/14/18at 14:17; Admin Dose 1.25 MG; Start 02/11/18 at 00:00 Hydralazine HCl (Apresoline) 10 mg Q4H PRN IV SBP>170 Last administered on 02/14/18at 10:43; Admin Dose 10 MG; Start 02/11/18 at 10:30 Miscellaneous Information 1 ea NOTE XX ; Start 02/11/18 at 11:00 Glucose (Glutose) 15 gm Q15M PRN PO DECREASED GLUCOSE; Start 02/11/18 at 11:00 Glucose (Glutose) 22.5 gm Q15M PRN PO DECREASED GLUCOSE; Start 02/11/18 at 11:00 Dextrose (D50w Syringe) 25 ml Q15M PRN IV DECREASED GLUCOSE; Start 02/11/18 at 11:00 Dextrose (D50w Syringe) 50 ml Q15M PRN IV DECREASED GLUCOSE; Start 02/11/18 at 11:00 Glucagon (Glucagen) 1 mg Q15M PRN IM DECREASED GLUCOSE; Start 02/11/18 at 11:00 Glucose (Glutose) 15 gm Q15M PRN BUCCAL DECREASED GLUCOSE; Start 02/11/18 at 11:00 Lansoprazole (Prevacid) 30 mg DAILY@06 GTB Last administered on 02/15/18at 05:34; Admin Dose 30 MG; Start 02/13/18 at 06:00 Apixaban (Eliquis) 2.5 mg BID PO Last administered on 02/15/18at 08:35; Admin Dose 2.5 MG; Start 02/12/18 at 21:00 Cefepime HCl 50 ml @ 100 mls/hr Q24H IVPB Last administered on 02/15/18at 08:36; Admin Dose 100 MLS/HR; Start 02/13/18 at 09:00 Oxycodone/ Acetaminophen (Percocet (5/ 325)) 1 tab Q4H PRN PO MODERATE PAIN LEVEL 4-6 Last administered on 02/14/18at 06:15; Admin Dose 1 TAB; Start 02/13/18 at 01:00 Lorazepam (Ativan) 0.5 mg Q12H PRN GTB restlessness; Start 02/13/18 at 11:00 Methylprednisolone Sodium Succinate (Solu-Medrol) 60 mg DAILY IV Last administered on 02/15/18at 08:35; Admin Dose 60 MG; Start 02/14/18 at 09:00 Vancomycin HCl (Vanco Iv Per Pharmacy) VANCOMYCIN PER PHARMACY PER PROTOCOL XX ; Start 02/14/18 at 08:00 Vancomycin HCl 1.25 gm/Sodium Chloride 250 ml @ 83.333 mls/ hr Q24H IVPB ; Start 02/15/18 at 12:00 Lactulose (Enulose) 20 gm Q6H PRN PO CONSTIPATION Last administered on 02/14/18at 14:33; Admin Dose 20 GM; Start 02/14/18 at 14:00 Insulin Aspart (Novolog Insulin Pen) NOVOLOG *MILD* ALGORITHM WITH MEALS BEDTIME SC ; Start 02/15/18 at 11:30 Results Result Diagram: 02/15/18 0800 02/15/18 0800 Results 24 hrs Laboratory Tests Test 02/14/18 16:49 02/14/18 20:46 02/15/18 01:22 02/15/18 05:07 Bedside Glucose 169 169 125 160 Test 02/15/18 08:00 02/15/18 12:03 White Blood 21.3 #H Count Red Blood Count 4.19 L Hemoglobin 13.2 L Hematocrit 40.4 L Mean Corpuscular 96.4 Volume Mean Corpuscular 31.5 Hemoglobin Mean Corpuscular 32.7 Hemoglobin Naz nt Red Cell 13.9 Distribution Width Platelet Count 237 Mean Platelet 10.0 Volume Immature 1.000 H Granulocytes % Neutrophils % 79.1 H Lymphocytes % 7.4 L Monocytes % 11.9 H Eosinophils % 0.5 Basophils % 0.1 Nucleated Red 0.0 Blood Cells % Immature 0.210 H Granulocytes # Neutrophils # 16.9 H Lymphocytes # 1.6 Monocytes # 2.5 H Eosinophils # 0.1 Basophils # 0.0 Nucleated Red 0.0 Blood Cells # Sodium Level 139 Potassium Level 5.4 H Chloride Level 105 Carbon Dioxide 22 Level Anion Gap 12 Blood Urea 58 H Nitrogen Creatinine 1.22 Est Glomerular Filtrat Rate mL/min Glucose Level 128 Calcium Level 9.2 Phosphorus Level 3.7 Magnesium Level 2.5 Bedside Glucose 144 MOIRA VALDIVIA Feb 15, 2018 12:24
[2018-02-15] MEDS: VANCOMYCIN 1.25 GM in SOD CHLORIDE 0.9% 250 ML IVPB SCH (12:32)
--- NOTE | 2018-02-15 15:56 | NUR ---
NURSING NOTES got a call from [facility] informing this RN that per dr. Cox, padma to be on hold for thoracentesis. will inform shift mechanic to hold padma for procedure to be done tomorrow.
--- NOTE | 2018-02-15 18:07 | NUR ---
EOSS Patient was stable throughout shift. Patient was A&Ox3, with irregular heart rates. Patient can not see through his right eye due to periorbital edema. Eliquis will be on hold to be able to do thoracentesis tomorrow. Patient tolerated his meals well, consuming about 75% of his meals; pt had one BM. Patient had good urine output, averaging about 75mL/hr. Patient had a large amount of chest tube drainage at the start of shift, with 100cc at 0800 and 240 at 1200, but none at 1600. Patient was afebrile throughout shift. Peripheral line in left forearm was dc'd due to pt complaining of pain when checking patency of IV. All needs were attended to, care plan was updated and performed.
[2018-02-15] MEDS: GUAIFENESIN/DM 5ML CUP PO PRN (22:23)
[2018-02-16] VITALS (24 sets, daily range): BP systolic 101–173; BP diastolic 49–119; PULSE 73–124; RESP 14–25
[2018-02-16] MEDS: hydrALAzine 20 MG INJ IV PRN (00:07)
[2018-02-16] MEDS: OXYCODONE/ACETAMINOPHEN (5/325) TAB PO PRN (00:30)
[2018-02-16] MEDS: DILTIAZEM 60 MG TAB PO SCH ×3 (05:46→21:18)
[2018-02-16] MEDS: LANSOPRAZOLE 30 MG CAP GTB SCH (05:46)
--- NOTE | 2018-02-16 06:54 | NUR ---
EOSS: PT remains alert and oriented times four throughout shift. Pt was in Afib RVR throughout shift, BP slightly elevated, PRN Hydralazine given once. Pt on 2L NC satting appropriately Had one BM. Chest tube draining on low suction, total of 150ml throughout shift. PRN pain medication given. Orbital edema went down significantly throughout shift. Bed bath completed, bed in lowest position bed brakes activated, repositioned q2h.
[2018-02-16] MEDS: INSULIN ASPART [NOVOLOG] 3 ML PEN SC SCH ×4 (07:35→21:26)
[2018-02-16] MEDS: APIXABAN 5 MG TABLET PO SCH ×2 (08:19→20:22)
[2018-02-16] MEDS: CEFEPIME 1GM/50 ML (PMX) 50 ML IVPB SCH (08:38)
[2018-02-16] MEDS: METHYLPREDNISOLONE 125 MG INJ IV SCH (08:38)
[2018-02-16] MEDS: ATENOLOL 25 MG TAB PO SCH (08:38)
--- NOTE | 2018-02-16 09:00 | NUR ---
MD VISIT DR. DICKERSON HERE TO SEE PATIENT AND INQUIRING ABOUT THORACENTESIS. INFORMED DOCTOR THAT RADIOLOGIST WANTED ELLIQUIS TO BE ON HOLD FOR ABOUT 48 HRS. IT WAS AMENDED FOR TODAY AND HOPEFULLY IT COULD BE DONE TODAY. NO ORDERS RECEIVED.
--- NOTE | 2018-02-16 10:01 | CONS ---
Date/Time of Note Date/Time of Note DATE: 02/16/18 TIME: 09:56 Assessment/Plan Assessment/Plan Additional Assessment/Plan Chest x-ray showing moderate left pleural effusion. Left lower lobe infiltrate is present as well. Right-sided chest tube in place. No pneumothorax. Assessment recommendations; 1. Patient admitted with pneumonia as well as developed right pneumothorax requiring chest tube placement. 2. Extensive subtenons emphysema with significant interval improvement. 3. Chronic atrial fibrillation. Rate is well controlled. 4. Improving leukocytosis. 5. Left pleural effusion. Continue current supportive care. Patient responding well to current treatment regimen. Patient scheduled for left thoracentesis today. Procedure was rescheduled for today because patient was on Eliquis. Consultation Date/Type/Reason Admit Date/Time Feb 07, 2018 at 13:54 Initial Consult Date Type of Consult Pulmonary/critical care Requesting Provider: FIDEL GAVIN MD 24 HR Interval Summary Free Text/Dictation Patient's condition is stable. Denies any shortness breath, coughing, wheezing. General exam; elderly male, awake alert, currently no distress. Exam/Review of Systems Vital Signs Vitals Vital Signs Date Temp Pulse Resp B/P (MAP) Pulse Ox O2 O2 Flow FiO2 Time Delivery Rate 02/16/18 97.3 103 22 145/119 100 Nasal 2.0 08:00 (128) Cannula 02/14/18 27 04:45 Intake and Output 02/15/18 02/15/18 02/16/18 1515:00 23:00 07:00 IntakeIntake Total 458.42 ml 211.58 ml 60 ml OutputOutput Total 985 ml 610 ml 550 ml BalanceBalance -526.58 ml -398.42 ml -490 ml Exam H HEENT exam; supple neck, there is significant reduction in facial cutaneous emphysema. Chest exam; right side chest tube in place. Right-sided chest crepitus. S1-S2 audible, no murmurs. Irregular rhythm. Abdomen exam; soft, no organomegaly. Bowel sounds audible. Extremity exam; trace edema. FOOD WRITER exam; no focal deficit. Medications Medications Current Medications IV Flush (NS 3 ml) 3 ml PER PROTOCOL IV ; Start 02/07/18 at 16:30 Ondansetron HCl (Zofran Inj) 4 mg Q6H PRN IV NAUSEA AND/OR VOMITING; Start 02/07/18 at 16:30 Acetaminophen (Tylenol Tab) 650 mg Q6H PRN PO PAIN LEVEL 1-3 OR FEVER; Start 02/07/18 at 16:30 Docusate Sodium (Colace) 100 mg Q12H PRN PO CONSTIPATION Last administered on 02/10/18at 20:07; Admin Dose 100 MG; Start 02/07/18 at 16:30 Diltiazem HCl (Cardizem) 60 mg Q8 PO Last administered on 02/16/18at 05:46; Admin Dose 60 MG; Start 02/07/18 at 17:00 Atenolol (Tenormin) 25 mg BID PO Last administered on 02/16/18at 08:38; Admin Dose 25 MG; Start 02/08/18 at 11:00 Guaifenesin/ Dextromethorphan (Robitussin Dm Liquid Cup) 30 ml Q4H PRN PO COUGH Last administered on 02/15/18at 22:23; Admin Dose 30 ML; Start 02/09/18 at 12:30 Levalbuterol (Xopenex Neb) 1.25 mg Q4H RESP THERAPY PRN HHN wheezing Last administered on 02/14/18at 14:17; Admin Dose 1.25 MG; Start 02/11/18 at 00:00 Hydralazine HCl (Apresoline) 10 mg Q4H PRN IV SBP>170 Last administered on 02/16/18at 00:07; Admin Dose 10 MG; Start 02/11/18 at 10:30 Miscellaneous Information 1 ea NOTE XX ; Start 02/11/18 at 11:00 Glucose (Glutose) 15 gm Q15M PRN PO DECREASED GLUCOSE; Start 02/11/18 at 11:00 Glucose (Glutose) 22.5 gm Q15M PRN PO DECREASED GLUCOSE; Start 02/11/18 at 11:00 Dextrose (D50w Syringe) 25 ml Q15M PRN IV DECREASED GLUCOSE; Start 02/11/18 at 11:00 Dextrose (D50w Syringe) 50 ml Q15M PRN IV DECREASED GLUCOSE; Start 02/11/18 at 11:00 Glucagon (Glucagen) 1 mg Q15M PRN IM DECREASED GLUCOSE; Start 02/11/18 at 11:00 Glucose (Glutose) 15 gm Q15M PRN BUCCAL DECREASED GLUCOSE; Start 02/11/18 at 11:00 Lansoprazole (Prevacid) 30 mg DAILY@06 GTB Last administered on 02/16/18at 05:46; Admin Dose 30 MG; Start 02/13/18 at 06:00 Apixaban (Eliquis) 2.5 mg BID PO Last administered on 02/15/18at 08:35; Admin Dose 2.5 MG; Start 02/12/18 at 21:00 Cefepime HCl 50 ml @ 100 mls/hr Q24H IVPB Last administered on 02/16/18at 08:38; Admin Dose 100 MLS/HR; Start 02/13/18 at 09:00 Oxycodone/ Acetaminophen (Percocet (5/ 325)) 1 tab Q4H PRN PO MODERATE PAIN LEVEL 4-6 Last administered on 02/16/18at 00:30; Admin Dose 1 TAB; Start 02/13/18 at 01:00 Lorazepam (Ativan) 0.5 mg Q12H PRN GTB restlessness; Start 02/13/18 at 11:00 Methylprednisolone Sodium Succinate (Solu-Medrol) 60 mg DAILY IV Last administered on 02/16/18at 08:38; Admin Dose 60 MG; Start 02/14/18 at 09:00 Vancomycin HCl (Vanco Iv Per Pharmacy) VANCOMYCIN PER PHARMACY PER PROTOCOL XX ; Start 02/14/18 at 08:00 Vancomycin HCl 1.25 gm/Sodium Chloride 250 ml @ 83.333 mls/ hr Q24H IVPB Last administered on 02/15/18at 12:32; Admin Dose 83.333 MLS/HR; Start 02/15/18 at 12:00 Lactulose (Enulose) 20 gm Q6H PRN PO CONSTIPATION Last administered on 02/14/18at 14:33; Admin Dose 20 GM; Start 02/14/18 at 14:00 Insulin Aspart (Novolog Insulin Pen) NOVOLOG *MILD* ALGORITHM WITH MEALS BEDTIME SC Last administered on 02/15/18at 20:12; Admin Dose 3 UNIT; Start 02/15/18 at 11:30 Results Result Diagram: 02/16/18 0429 02/16/18 0430 Results 24 hrs Laboratory Tests Test 02/15/18 12:03 02/15/18 17:14 02/15/18 20:07 02/16/18 04:29 Bedside Glucose 144 173 228 H White Blood 16.5 #H Count Red Blood Count 3.85 L Hemoglobin 11.9 L Hematocrit 37.0 L Mean Corpuscular 96.1 Volume Mean Corpuscular 30.9 Hemoglobin Mean Corpuscular 32.2 Hemoglobin Naz nt Red Cell 13.6 Distribution Width Platelet Count 244 Mean Platelet 9.7 Volume Immature 1.000 H Granulocytes % Neutrophils % 83.3 H Lymphocytes % 5.0 L Monocytes % 10.5 Eosinophils % 0.1 Basophils % 0.1 Nucleated Red 0.0 Blood Cells % Immature 0.170 H Granulocytes # Neutrophils # 13.7 H Lymphocytes # 0.8 Monocytes # 1.7 H Eosinophils # 0.0 Basophils # 0.0 Nucleated Red 0.0 Blood Cells # Prothrombin Time 16.6 H Prothrombin Time 1.3 Ratio INR 1.32 International Normalized Ratio Activated 28.2 Partial Thrombop last Time Phosphorus Level 3.3 Magnesium Level 2.2 Test 02/16/18 04:30 02/16/18 07:51 Sodium Level 140 Potassium Level 4.9 Chloride Level 105 Carbon Dioxide 27 Level Anion Gap 8 Blood Urea 50 H Nitrogen Creatinine 1.14 Est Glomerular Filtrat Rate mL/min Glucose Level 140 Calcium Level 8.9 Bedside Glucose 122 ALAN DICKERSON Feb 16, 2018 10:01
--- NOTE | 2018-02-16 11:20 | NUR ---
CALL REGARDING THORACENTESIS Received a call from radiology and spoke to [facility], and states, "as per Dr. Michael Neil, Eliquis needs to be on hold for 48hours prior to thoracentesis." Thoracentesis will be done tomorrow. Made aware that Eliquis is for pt's A-fib. Will endorse to warehouse worker 2nd shift nurse to hold Eliquis.
[2018-02-16] MEDS: VANCOMYCIN 1.25 GM in SOD CHLORIDE 0.9% 250 ML IVPB SCH (12:22)
--- NOTE | 2018-02-16 13:13 | CONS ---
Date/Time of Note Date/Time of Note DATE: 02/16/18 TIME: 13:12 Assessment/Plan Assessment/Plan Chief Complaint/Hosp Course IMP: 1.AF-rate controlled 2.CHF-diastolic acute on chronic 3.HTN-reasonable control 4.Pleural effusion s/p thoracentesis c/b PTX now s/p CT 5. Renal failure 6. Leukocytosis 7. anemia 8. SQ emphysema extensive-tracking up into face and around eye, slowly improving Recc: -ICU -Continue atenolol/dilt -Continue steroids/abx/bronchodilators -continue eliquis -Follow CT output closely -Follow exam with SQ emphysema closely which is slowly improving Consultation Date/Type/Reason Admit Date/Time Feb 07, 2018 at 13:54 Initial Consult Date 02/07/18 Type of Consult cardiology Reason for Consultation AF Requesting Provider: FIDEL GAVIN MD Exam/Review of Systems Vital Signs Vitals Vital Signs Date Temp Pulse Resp B/P (MAP) Pulse Ox O2 O2 Flow FiO2 Time Delivery Rate 02/16/18 97.8 91 22 150/75 100 Nasal 2.0 12:00 (100) Cannula 02/14/18 27 04:45 Intake and Output 02/15/18 02/15/18 02/16/18 1515:00 23:00 07:00 IntakeIntake Total 458.42 ml 211.58 ml 60 ml OutputOutput Total 985 ml 610 ml 550 ml BalanceBalance -526.58 ml -398.42 ml -490 ml Exam Review of Systems: CONSTITUTIONAL: No fevers, chills. PULMONARY: No sob CARDIOVASCULAR: No chest pain/palpitations GASTROINTESTINAL: No nausea/vomiting. GENITOURINARY: No hematuria/dysuria. MUSCULOSKELETAL: No myagias/arthalgias. PSYCHIATRIC: The patient denies depression. NEUROLOGIC: No weakness Constitutional: alert Psych: no complaints Head: normocephalic ENMT: mucosa pink and moist Neck: supple, jvd (9 cm water) Respiratory: clear to auscultation Cardiovascular: regular rate and rhythm Gastrointestinal: soft, non-tender Musculoskeletal: muscle tone (normal) Extremities: edema (none) 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: other (No focal deficits) Medications Medications Current Medications IV Flush (NS 3 ml) 3 ml PER PROTOCOL IV ; Start 02/07/18 at 16:30 Ondansetron HCl (Zofran Inj) 4 mg Q6H PRN IV NAUSEA AND/OR VOMITING; Start 02/07/18 at 16:30 Acetaminophen (Tylenol Tab) 650 mg Q6H PRN PO PAIN LEVEL 1-3 OR FEVER; Start 02/07/18 at 16:30 Docusate Sodium (Colace) 100 mg Q12H PRN PO CONSTIPATION Last administered on 02/10/18at 20:07; Admin Dose 100 MG; Start 02/07/18 at 16:30 Diltiazem HCl (Cardizem) 60 mg Q8 PO Last administered on 02/16/18at 05:46; Admin Dose 60 MG; Start 02/07/18 at 17:00 Atenolol (Tenormin) 25 mg BID PO Last administered on 02/16/18at 08:38; Admin Dose 25 MG; Start 02/08/18 at 11:00 Guaifenesin/ Dextromethorphan (Robitussin Dm Liquid Cup) 30 ml Q4H PRN PO COUGH Last administered on 02/15/18at 22:23; Admin Dose 30 ML; Start 02/09/18 at 12:30 Levalbuterol (Xopenex Neb) 1.25 mg Q4H RESP THERAPY PRN HHN wheezing Last administered on 02/14/18at 14:17; Admin Dose 1.25 MG; Start 02/11/18 at 00:00 Hydralazine HCl (Apresoline) 10 mg Q4H PRN IV SBP>170 Last administered on 02/16/18at 00:07; Admin Dose 10 MG; Start 02/11/18 at 10:30 Miscellaneous Information 1 ea NOTE XX ; Start 02/11/18 at 11:00 Glucose (Glutose) 15 gm Q15M PRN PO DECREASED GLUCOSE; Start 02/11/18 at 11:00 Glucose (Glutose) 22.5 gm Q15M PRN PO DECREASED GLUCOSE; Start 02/11/18 at 11:00 Dextrose (D50w Syringe) 25 ml Q15M PRN IV DECREASED GLUCOSE; Start 02/11/18 at 11:00 Dextrose (D50w Syringe) 50 ml Q15M PRN IV DECREASED GLUCOSE; Start 02/11/18 at 11:00 Glucagon (Glucagen) 1 mg Q15M PRN IM DECREASED GLUCOSE; Start 02/11/18 at 11:00 Glucose (Glutose) 15 gm Q15M PRN BUCCAL DECREASED GLUCOSE; Start 02/11/18 at 11:00 Lansoprazole (Prevacid) 30 mg DAILY@06 GTB Last administered on 02/16/18at 05:46; Admin Dose 30 MG; Start 02/13/18 at 06:00 Apixaban (Eliquis) 2.5 mg BID PO Last administered on 02/15/18at 08:35; Admin Dose 2.5 MG; Start 02/12/18 at 21:00 Cefepime HCl 50 ml @ 100 mls/hr Q24H IVPB Last administered on 02/16/18at 08:38; Admin Dose 100 MLS/HR; Start 02/13/18 at 09:00 Oxycodone/ Acetaminophen (Percocet (5/ 325)) 1 tab Q4H PRN PO MODERATE PAIN LEVEL 4-6 Last administered on 02/16/18at 00:30; Admin Dose 1 TAB; Start 02/13/18 at 01:00 Lorazepam (Ativan) 0.5 mg Q12H PRN GTB restlessness; Start 02/13/18 at 11:00 Methylprednisolone Sodium Succinate (Solu-Medrol) 60 mg DAILY IV Last administered on 02/16/18at 08:38; Admin Dose 60 MG; Start 02/14/18 at 09:00 Vancomycin HCl (Vanco Iv Per Pharmacy) VANCOMYCIN PER PHARMACY PER PROTOCOL XX ; Start 02/14/18 at 08:00 Vancomycin HCl 1.25 gm/Sodium Chloride 250 ml @ 83.333 mls/ hr Q24H IVPB Last administered on 02/16/18at 12:22; Admin Dose 83.333 MLS/HR; Start 02/15/18 at 12:00 Lactulose (Enulose) 20 gm Q6H PRN PO CONSTIPATION Last administered on 02/14/18at 14:33; Admin Dose 20 GM; Start 02/14/18 at 14:00 Insulin Aspart (Novolog Insulin Pen) NOVOLOG *MILD* ALGORITHM WITH MEALS BEDTIME SC Last administered on 02/16/18at 12:19; Admin Dose 1 UNIT; Start 02/15/18 at 11:30 Miscellaneous Information (*Rx Drug Level Order Reminder*) 1 ONCE ONCE XX ; Start 02/17/18 at 11:00; Stop 02/17/18 at 11:01 Results Result Diagram: 02/16/18 0429 02/16/18 0430 Results 24 hrs Laboratory Tests Test 02/15/18 17:14 02/15/18 20:07 02/16/18 04:29 02/16/18 04:30 Bedside Glucose 173 228 H White Blood 16.5 #H Count Red Blood Count 3.85 L Hemoglobin 11.9 L Hematocrit 37.0 L Mean Corpuscular 96.1 Volume Mean Corpuscular 30.9 Hemoglobin Mean Corpuscular 32.2 Hemoglobin Naz nt Red Cell 13.6 Distribution Width Platelet Count 244 Mean Platelet 9.7 Volume Immature 1.000 H Granulocytes % Neutrophils % 83.3 H Lymphocytes % 5.0 L Monocytes % 10.5 Eosinophils % 0.1 Basophils % 0.1 Nucleated Red 0.0 Blood Cells % Immature 0.170 H Granulocytes # Neutrophils # 13.7 H Lymphocytes # 0.8 Monocytes # 1.7 H Eosinophils # 0.0 Basophils # 0.0 Nucleated Red 0.0 Blood Cells # Prothrombin Time 16.6 H Prothrombin Time 1.3 Ratio INR 1.32 International Normalized Ratio Activated 28.2 Partial Thrombop last Time Phosphorus Level 3.3 Magnesium Level 2.2 Sodium Level 140 Potassium Level 4.9 Chloride Level 105 Carbon Dioxide 27 Level Anion Gap 8 Blood Urea 50 H Nitrogen Creatinine 1.14 Est Glomerular Filtrat Rate mL/min Glucose Level 140 Calcium Level 8.9 Test 02/16/18 07:51 02/16/18 11:37 Bedside Glucose 122 167 CECE LOPEZ Feb 16, 2018 13:13
--- NOTE | 2018-02-16 15:36 | PN ---
Date/Time of Note Date/Time of Note DATE: 02/16/18 TIME: 15:33 Assessment/Plan Lines/Catheters IV Catheter Type (from Nrsg): Peripheral IV Bar in Place (from Nrsg): Yes Assessment/Plan Assessment/Plan Right-sided pneumothorax status post chest tube placement. Pt developed SQ emphysema after clamping the tube CT with 300cc output Right Chest PTX stable RECOMMENDATIONS: We will continue chest tube sxn . Monitor the chest x-ray tomorrow may need VATS if develops SQ Emphysema with clamping the tube. Discuss with the referring physicians. Subjective 24 Hr Interval Summary Constitutional: improved Pain Control: mild Exam/Review of Systems Vital Signs Vitals Vital Signs Date Temp Pulse Resp B/P (MAP) Pulse Ox O2 O2 Flow FiO2 Time Delivery Rate 02/16/18 88 16 152/70 99 Nasal 2.0 14:00 (97) Cannula 02/16/18 97.8 12:00 02/14/18 27 04:45 Intake and Output 02/15/18 02/15/18 02/16/18 1515:00 23:00 07:00 IntakeIntake Total 458.42 ml 211.58 ml 60 ml OutputOutput Total 985 ml 610 ml 550 ml BalanceBalance -526.58 ml -398.42 ml -490 ml Exam ENMT: nl external ears & nose, nl lips & teeth, nl nasal mucosa & septum, mucosa pink and moist Neck: supple, non-tender Respiratory: clear to auscultation, normal air movement Cardiovascular: regular rate and rhythm, nl pulses Genitourinary - Male: No nl penis, No nl scrotum, No CVA tenderness, No discharge, No other Results Result Diagram: 02/16/18 0429 02/16/18 0430 SHIRA ORTIZ MD Feb 16, 2018 15:36
--- NOTE | 2018-02-16 15:37 | PN ---
Date/Time of Note Date/Time of Note DATE: 02/15/18 TIME: 15:36 Assessment/Plan Lines/Catheters IV Catheter Type (from Nrs): Peripheral IV Bar in Place (from Nrsg): Yes Assessment/Plan Assessment/Plan Right-sided pneumothorax status post chest tube placement. Pt developed SQ emphysema after clamping the tube CT with 300cc output Right Chest PTX stable RECOMMENDATIONS: We will continue chest tube sxn . Monitor the chest x-ray tomorrow may need VATS if develops SQ Emphysema with clamping the tube. Discuss with the referring physicians. Exam/Review of Systems Vital Signs Vitals Vital Signs Date Temp Pulse Resp B/P (MAP) Pulse Ox O2 O2 Flow FiO2 Time Delivery Rate 02/16/18 88 16 152/70 99 Nasal 2.0 14:00 (97) Cannula 02/16/18 97.8 12:00 02/14/18 27 04:45 Intake and Output 02/15/18 02/15/18 02/16/18 1515:00 23:00 07:00 IntakeIntake Total 458.42 ml 211.58 ml 60 ml OutputOutput Total 985 ml 610 ml 550 ml BalanceBalance -526.58 ml -398.42 ml -490 ml Exam ENMT: nl external ears & nose, nl lips & teeth, nl nasal mucosa & septum, mucosa pink and moist Neck: supple, non-tender Respiratory: clear to auscultation, normal air movement Cardiovascular: regular rate and rhythm, nl pulses Gastrointestinal: soft, nl liver, spleen, non-tender Results Result Diagram: 02/16/18 0429 02/16/18 0430 SHIRA ORTIZ MD Feb 16, 2018 15:37
--- NOTE | 2018-02-16 18:22 | NUR ---
EOSS Patient was stable throughout shift. Patient A&Ox3, not oriented to time. A-fib, with episodes of tachycardia going up to 110's bpm. Patient was on 2L via nasal canula and sat'ing at an average of 100%. No BM throughout the shift. Patient has had urine output of about 60cc/hr. RAC peripheral was dc'd due to infiltration, and a new 20g peripheral IV placed on left upper arm. Skin care performed per protocol and linens changed. Eliquis still on hold, thoracentesis will be done tomorrow; Eliquis should be held for 48hrs per radiology. All needs were tended to, care plans were updated and performed. Will endorse care to oncoming retail shift supervisor RN.
--- NOTE | 2018-02-16 18:59 | PN ---
Date/Time of Note Date/Time of Note DATE: 02/16/18 TIME: 18:57 Assessment/Plan VTE [place] [facility] [place]: 10 [place] [facility] [place] No SCD contraindicated: other Pharmacological prophylaxis: other Pharm contraindication: other Lines[facility] IV Urinary Cath still in place: Yes Reason Cath still needed: other (indicate) Assessment/Plan Hospital Course 1.AF-rate controlled 2.CHF-diastolic acute on chronic 3.HTN-reasonable control 4.Pleural effusion s/p thoracentesis c/b PTX now s/p CT 5. Renal failure 6. Leukocytosis 7. anemia 8. SQ emphysema extensive-tracking up into face and around eye plan per pul and surgery Subjective 24 Hr Interval Summary Eyes: other (rt eye edema+) Respiratory: no complaints; No shortness of breath Gastrointestinal: no complaints Exam/Review of Systems Vital Signs Vitals Vital Signs Date Temp Pulse Resp B/P (MAP) Pulse Ox O2 O2 Flow FiO2 Time Delivery Rate 02/16/18 73 14 137/65 99 Nasal 2.0 18:00 (89) Cannula 02/16/18 97.8 16:00 02/14/18 27 04:45 Intake and Output 02/15/18 02/15/18 02/16/18 1515:00 23:00 07:00 IntakeIntake Total 458.42 ml 211.58 ml 60 ml OutputOutput Total 985 ml 610 ml 550 ml BalanceBalance -526.58 ml -398.42 ml -490 ml Exam Respiratory: diminished breath sounds Cardiovascular: regular rate and rhythm Gastrointestinal: soft, bowel sounds (+) Extremities: edema (tr) Skin: other (sub empheema+) Medications Medications Current Medications IV Flush (NS 3 ml) 3 ml PER PROTOCOL IV ; Start 02/07/18 at 16:30 Ondansetron HCl (Zofran Inj) 4 mg Q6H PRN IV NAUSEA AND/OR VOMITING; Start 02/07/18 at 16:30 Acetaminophen (Tylenol Tab) 650 mg Q6H PRN PO PAIN LEVEL 1-3 OR FEVER; Start 02/07/18 at 16:30 Docusate Sodium (Colace) 100 mg Q12H PRN PO CONSTIPATION Last administered on 02/10/18at 20:07; Admin Dose 100 MG; Start 02/07/18 at 16:30 Diltiazem HCl (Cardizem) 60 mg Q8 PO Last administered on 02/16/18at 13:49; Admin Dose 60 MG; Start 02/07/18 at 17:00 Guaifenesin/ Dextromethorphan (Robitussin Dm Liquid Cup) 30 ml Q4H PRN PO COUGH Last administered on 02/15/18at 22:23; Admin Dose 30 ML; Start 02/09/18 at 12:30 Levalbuterol (Xopenex Neb) 1.25 mg Q4H RESP THERAPY PRN HHN wheezing Last administered on 02/14/18at 14:17; Admin Dose 1.25 MG; Start 02/11/18 at 00:00 Hydralazine HCl (Apresoline) 10 mg Q4H PRN IV SBP>170 Last administered on 02/16/18at 00:07; Admin Dose 10 MG; Start 02/11/18 at 10:30 Miscellaneous Information 1 ea NOTE XX ; Start 02/11/18 at 11:00 Glucose (Glutose) 15 gm Q15M PRN PO DECREASED GLUCOSE; Start 02/11/18 at 11:00 Glucose (Glutose) 22.5 gm Q15M PRN PO DECREASED GLUCOSE; Start 02/11/18 at 11:00 Dextrose (D50w Syringe) 25 ml Q15M PRN IV DECREASED GLUCOSE; Start 02/11/18 at 11:00 Dextrose (D50w Syringe) 50 ml Q15M PRN IV DECREASED GLUCOSE; Start 02/11/18 at 11:00 Glucagon (Glucagen) 1 mg Q15M PRN IM DECREASED GLUCOSE; Start 02/11/18 at 11:00 Glucose (Glutose) 15 gm Q15M PRN BUCCAL DECREASED GLUCOSE; Start 02/11/18 at 11:00 Lansoprazole (Prevacid) 30 mg DAILY@06 GTB Last administered on 02/16/18at 05:46; Admin Dose 30 MG; Start 02/13/18 at 06:00 Apixaban (Eliquis) 2.5 mg BID PO Last administered on 02/15/18at 08:35; Admin Dose 2.5 MG; Start 02/12/18 at 21:00 Cefepime HCl 50 ml @ 100 mls/hr Q24H IVPB Last administered on 02/16/18at 08:38; Admin Dose 100 MLS/HR; Start 02/13/18 at 09:00 Oxycodone/ Acetaminophen (Percocet (5/ 325)) 1 tab Q4H PRN PO MODERATE PAIN LEVEL 4-6 Last administered on 02/16/18at 00:30; Admin Dose 1 TAB; Start 02/19 at 01:00 Lorazepam (Ativan) 0.5 mg Q12H PRN GTB restlessness; Start 02/13/18 at 11:00 Methylprednisolone Sodium Succinate (Solu-Medrol) 60 mg DAILY IV Last administered on 02/16/18at 08:38; Admin Dose 60 MG; Start 02/14/18 at 09:00 Vancomycin HCl (Vanco Iv Per Pharmacy) VANCOMYCIN PER PHARMACY PER PROTOCOL XX ; Start 02/14/18 at 08:00 Vancomycin HCl 1.25 gm/Sodium Chloride 250 ml @ 83.333 mls/ hr Q24H IVPB Last administered on 02/16/18at 12:22; Admin Dose 83.333 MLS/HR; Start 02/15/18 at 12:00 Lactulose (Enulose) 20 gm Q6H PRN PO CONSTIPATION Last administered on 02/14/18at 14:33; Admin Dose 20 GM; Start 02/14/18 at 14:00 Insulin Aspart (Novolog Insulin Pen) NOVOLOG *MILD* ALGORITHM WITH MEALS BEDTIME SC Last administered on 02/16/18at 17:20; Admin Dose 1 UNIT; Start at 11:30 Miscellaneous Information (*Rx Drug Level Order Reminder*) 1 ONCE ONCE XX ; Start 02/17/18 at 11:00; Stop 02/17/18 at 11:01 Atenolol (Tenormin) 50 mg BID PO ; Start 02/16/18 at 21:00 Results Result Diagram: 02/16/18 0429 02/16/18 0430 Results 24 hrs Laboratory Tests Test 02/15/18 20:07 02/16/18 04:29 02/16/18 04:30 02/16/18 07:51 Bedside Glucose 228 H 122 White Blood 16.5 #H Count Red Blood Count 3.85 L Hemoglobin 11.9 L Hematocrit 37.0 L Mean Corpuscular 96.1 Volume Mean Corpuscular 30.9 Hemoglobin Mean Corpuscular 32.2 Hemoglobin Naz nt Red Cell 13.6 Distribution Width Platelet Count 244 Mean Platelet 9.7 Volume Immature 1.000 H Granulocytes % Neutrophils % 83.3 H Lymphocytes % 5.0 L Monocytes % 10.5 Eosinophils % 0.1 Basophils % 0.1 Nucleated Red 0.0 Blood Cells % Immature 0.170 H Granulocytes # Neutrophils # 13.7 H Lymphocytes # 0.8 Monocytes # 1.7 H Eosinophils # 0.0 Basophils # 0.0 Nucleated Red 0.0 Blood Cells # Prothrombin Time 16.6 H Prothrombin Time 1.3 Ratio INR 1.32 International Normalized Ratio Activated 28.2 Partial Thrombop last Time Phosphorus Level 3.3 Magnesium Level 2.2 Sodium Level 140 Potassium Level 4.9 Chloride Level 105 Carbon Dioxide 27 Level Anion Gap 8 Blood Urea 50 H Nitrogen Creatinine 1.14 Est Glomerular Filtrat Rate mL/min Glucose Level 140 Calcium Level 8.9 Test 02/16/18 11:37 02/16/18 16:55 Bedside Glucose 167 158 KARLEY DEAN MD Feb 16, 2018 18:59
[2018-02-16] MEDS: ATENOLOL 50 MG TAB PO SCH (21:18)
[2018-02-17] VITALS (24 sets, daily range): BP systolic 115–160; BP diastolic 54–104; PULSE 70–106; RESP 12–22
[2018-02-17] MEDS: OXYCODONE/ACETAMINOPHEN (5/325) TAB PO PRN (03:22)
[2018-02-17] MEDS: LANSOPRAZOLE 30 MG CAP GTB SCH (05:58)
[2018-02-17] MEDS: DILTIAZEM 60 MG TAB PO SCH ×3 (05:58→22:28)
[2018-02-17] MEDS: INSULIN ASPART [NOVOLOG] 3 ML PEN SC SCH ×4 (07:35→21:00)
[2018-02-17] MEDS: CEFEPIME 1GM/50 ML (PMX) 50 ML IVPB SCH (08:58)
[2018-02-17] MEDS: APIXABAN 5 MG TABLET PO SCH (08:58)
[2018-02-17] MEDS: METHYLPREDNISOLONE 125 MG INJ IV SCH (08:58)
[2018-02-17] MEDS: ATENOLOL 50 MG TAB PO SCH ×2 (08:59→21:21)
--- NOTE | 2018-02-17 09:45 | CONS ---
Date/Time of Note Date/Time of Note DATE: 02/17/18 TIME: 09:42 Assessment/Plan Assessment/Plan Additional Assessment/Plan Assessment and recommendations; 1. Patient admitted with pneumonia and developed right pneumothorax requiring chest tube placement. 2. Development of extensive subcutaneous emphysema with significant clinical improvement now. 3. Left lower lobe pneumonia, with left pleural effusion. Patient scheduled for thoracentesis today. 4. Chronic atrial for ablation. Rate is controlled. Continue current supportive care. Thoracentesis scheduled for today. Procedure was delayed because patient was on anti-coagulation. Consultation Date/Type/Reason Admit Date/Time Feb 07, 2018 at 13:54 Initial Consult Date Type of Consult Pulmonary/critical care Requesting Provider: FIDEL GAVIN MD 24 HR Interval Summary Free Text/Dictation Patient's condition is continually improving. He denies any shortness of breath. Any chest pain. General exam; elderly male, awake alert, currently in no distress. Exam/Review of Systems Vital Signs Vitals Vital Signs Date Temp Pulse Resp B/P (MAP) Pulse Ox O2 O2 Flow FiO2 Time Delivery Rate 02/17/18 95 08:00 02/17/18 2.0 06:14 02/17/18 21 146/70 99 06:00 (95) 02/17/18 97.9 Nasal 04:00 Cannula 02/14/18 27 04:45 Intake and Output 02/16/18 02/16/18 02/17/18 1515:00 23:00 07:00 IntakeIntake Total 358.41 ml 161.59 ml 180 ml OutputOutput Total 980 ml 516 ml 875 ml BalanceBalance -621.59 ml -354.41 ml -695 ml Exam H EENT exam; supple neck, no JVD. No lymphadenopathy. Midline trachea. No thyromegaly. Patient has fair dentition. There is marked and continuous de crease in extensive right-sided facial cutaneous emphysema. Chest exam; diminished but clear breath sounds. Right side chest tube in place. Subcutaneous emphysema is felt in the right anterolateral chest wall. S1-S2 audible, no murmurs. Irregular rhythm. Abdomen exam; soft, no organomegaly. Bowel sounds audible. Extremity exam; no edema or clubbing. [employer] exam; no focal deficit. Medications Medications Current Medications IV Flush (NS 3 ml) 3 ml PER PROTOCOL IV ; Start 02/07/18 at 16:30 Ondansetron HCl (Zofran Inj) 4 mg Q6H PRN IV NAUSEA AND/OR VOMITING; Start 02/07/18 at 16:30 Acetaminophen (Tylenol Tab) 650 mg Q6H PRN PO PAIN LEVEL 1-3 OR FEVER; Start 02/07/18 at 16:30 Docusate Sodium (Colace) 100 mg Q12H PRN PO CONSTIPATION Last administered on 02/10/18at 20:07; Admin Dose 100 MG; Start 02/07/18 at 16:30 Diltiazem HCl (Cardizem) 60 mg Q8 PO Last administered on 02/17/18at 05:58; Admin Dose 60 MG; Start 02/07/18 at 17:00 Guaifenesin/ Dextromethorphan (Robitussin Dm Liquid Cup) 30 ml Q4H PRN PO COUGH Last administered on 02/15/18at 22:23; Admin Dose 30 ML; Start 02/09/18 at 12:30 Levalbuterol (Xopenex Neb) 1.25 mg Q4H RESP THERAPY PRN HHN wheezing Last administered on 02/14/18at 14:17; Admin Dose 1.25 MG; Start 02/11/18 at 00:00 Hydralazine HCl (Apresoline) 10 mg Q4H PRN IV SBP>170 Last administered on 02/16/18at 00:07; Admin Dose 10 MG; Start 02/11/18 at 10:30 Miscellaneous Information 1 ea NOTE XX ; Start 02/11/18 at 11:00 Glucose (Glutose) 15 gm Q15M PRN PO DECREASED GLUCOSE; Start 02/11/18 at 11:00 Glucose (Glutose) 22.5 gm Q15M PRN PO DECREASED GLUCOSE; Start 02/11/18 at 11:00 Dextrose (D50w Syringe) 25 ml Q15M PRN IV DECREASED GLUCOSE; Start 02/11/18 at 11:00 Dextrose (D50w Syringe) 50 ml Q15M PRN IV DECREASED GLUCOSE; Start 02/11/18 at 11:00 Glucagon (Glucagen) 1 mg Q15M PRN IM DECREASED GLUCOSE; Start 02/11/18 at 11:00 Glucose (Glutose) 15 gm Q15M PRN BUCCAL DECREASED GLUCOSE; Start 02/11/18 at 11:00 Lansoprazole (Prevacid) 30 mg DAILY@06 GTB Last administered on 02/17/18at 05 :58; Admin Dose 30 MG; Start 02/13/18 at 06:00 Apixaban (Eliquis) 2.5 mg BID PO Last administered on 02/17/18at 08:58; Admin Dose 2.5 MG; Start 02/12/18 at 21:00 Cefepime HCl 50 ml @ 100 mls/hr Q24H IVPB Last administered on 02/17/18at 08:58; Admin Dose 100 MLS/HR; Start 02/13/18 at 09:00 Oxycodone/ Acetaminophen (Percocet (5/ 325)) 1 tab Q4H PRN PO MODERATE PAIN LEVEL 4-6 Last administered on 02/17/18at 03:22; Admin Dose 1 TAB; Start 02/13/18 at 01:00 Lorazepam (Ativan) 0.5 mg Q12H PRN GTB restlessness; Start 02/13/18 at 11:00 Methylprednisolone Sodium Succinate (Solu-Medrol) 60 mg DAILY IV Last administered on 02/17/18at 08:58; Admin Dose 60 MG; Start 02/14/18 at 09:00 Vancomycin HCl (Vanco Iv Per Pharmacy) VANCOMYCIN PER PHARMACY PER PROTOCOL XX ; Start 02/14/18 at 08:00 Vancomycin HCl 1.25 gm/Sodium Chloride 250 ml @ 83.333 mls/ hr Q24H IVPB Last administered on 02/16/18at 12:22; Admin Dose 83.333 MLS/HR; Start 02/15/18 at 12:00 Lactulose (Enulose) 20 gm Q6H PRN PO CONSTIPATION Last administered on 02/14/18at 14:33; Admin Dose 20 GM; Start 02/14/18 at 14:00 Insulin Aspart (Novolog Insulin Pen) NOVOLOG *MILD* ALGORITHM WITH MEALS BEDTIME SC Last administered on 02/16/18at 21:26; Admin Dose 1 UNIT; Start 02/15/18 at 11:30 Miscellaneous Information (*Rx Drug Level Order Reminder*) 1 ONCE ONCE XX ; Start 02/17/18 at 11:00; Stop 02/17/18 at 11:01 Atenolol (Tenormin) 50 mg BID PO Last administered on 02/17/18at 08:59; Admin Dose 50 MG; Start 02/16/18 at 21:00 Results Result Diagram: 02/16/18 0429 02/16/18 0430 Results 24 hrs Laboratory Tests Test 02/16/18 11:37 02/16/18 16:55 02/16/18 21:21 02/17/18 08:35 Bedside Glucose 167 158 215 141 ALAN DICKERSON Feb 17, 2018 09:45
--- NOTE | 2018-02-17 10:23 | PN ---
Date/Time of Note Date/Time of Note DATE: 02/17/18 TIME: 10:23 Assessment/Plan Lines/Catheters IV Catheter Type (from Nrsg): Peripheral IV Bar in Place (from Nrsg): Yes Assessment/Plan Assessment/Plan Right-sided pneumothorax status post chest tube placement. Pt developed SQ emphysema after clamping the tube CT with 300cc output Right Chest PTX stable RECOMMENDATIONS: We will continue chest tube sxn . Monitor the chest x-ray tomorrow may need VATS if develops SQ Emphysema with clamping the tube. Discuss with the referring physicians. Subjective 24 Hr Interval Summary Constitutional: improved Pain Control: mild Exam/Review of Systems Vital Signs Vitals Vital Signs Date Temp Pulse Resp B/P (MAP) Pulse Ox O2 O2 Flow FiO2 Time Delivery Rate 02/17/18 95 08:00 02/17/18 2.0 06:14 02/17/18 21 146/70 99 06:00 (95) 02/17/18 97.9 Nasal 04:00 Cannula 02/14/18 27 04:45 Intake and Output 02/16/18 02/16/18 02/17/18 1515:00 23:00 07:00 IntakeIntake Total 358.41 ml 161.59 ml 180 ml OutputOutput Total 980 ml 516 ml 875 ml BalanceBalance -621.59 ml -354.41 ml -695 ml Exam Eyes: nl conjunctiva, EOMI, nl lids, nl sclera Neck: supple, non-tender Respiratory: clear to auscultation, normal air movement Cardiovascular: regular rate and rhythm, nl pulses Gastrointestinal: soft, nl liver, spleen, non-tender Drains SQ Emphysema Results Result Diagram: 02/16/18 0429 02/16/18 0430 SHIRA ORTIZ MD Feb 17, 2018 10:23
--- NOTE | 2018-02-17 12:36 | CONS ---
Date/Time of Note Date/Time of Note DATE: 02/17/18 TIME: 12:35 Assessment/Plan Assessment/Plan Chief Complaint/Hosp Course IMP: 1.AF-rate controlled 2.CHF-diastolic acute on chronic 3.HTN-reasonable control 4.Pleural effusion s/p thoracentesis c/b PTX now s/p CT 5. Renal failure 6. Leukocytosis 7. anemia 8. SQ emphysema extensive-tracking up into face and around eye, continues to improve Recc: -ICU -Continue atenolol and increased dose yesterday and current dilt -Continue steroids/abx/bronchodilators -continue eliquis -Follow CT output closely -Follow exam with SQ emphysema closely which is significantly improved Consultation Date/Type/Reason Admit Date/Time Feb 07, 2018 at 13:54 Initial Consult Date 02/07/18 Type of Consult cardiology Reason for Consultation AF Requesting Provider: FIDEL GAVIN MD Exam/Review of Systems Vital Signs Vitals Vital Signs Date Temp Pulse Resp B/P (MAP) Pulse Ox O2 O2 Flow FiO2 Time Delivery Rate 02/17/18 76 22 128/104 98 11:00 (112) 02/17/18 Nasal 2.0 08:00 Cannula 02/17/18 98.0 08:00 02/14/18 27 04:45 Intake and Output 02/16/18 02/16/18 02/17/18 1515:00 23:00 07:00 IntakeIntake Total 358.41 ml 161.59 ml 180 ml OutputOutput Total 980 ml 516 ml 875 ml BalanceBalance -621.59 ml -354.41 ml -695 ml Exam Review of Systems: CONSTITUTIONAL: No fevers, chills. PULMONARY: No sob CARDIOVASCULAR: No chest pain/palpitations GASTROINTESTINAL: No nausea/vomiting. GENITOURINARY: No hematuria/dysuria. MUSCULOSKELETAL: No myagias/arthalgias. PSYCHIATRIC: The patient denies depression. NEUROLOGIC: No weakness Constitutional: alert Psych: no complaints Head: normocephalic ENMT: mucosa pink and moist Neck: supple, jvd (8 cm water) Respiratory: diminished breath sounds (at bases/B) Cardiovascular: irregular rhythm Gastrointestinal: soft, non-tender Musculoskeletal: muscle tone (normal) Extremities: edema (none) 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: other (No focal deficits) Medications Medications Current Medications IV Flush (NS 3 ml) 3 ml PER PROTOCOL IV ; Start 02/07/18 at 16:30 Ondansetron HCl (Zofran Inj) 4 mg Q6H PRN IV NAUSEA AND/OR VOMITING; Start 02/07/18 at 16:30 Acetaminophen (Tylenol Tab) 650 mg Q6H PRN PO PAIN LEVEL 1-3 OR FEVER; Start 02/07/18 at 16:30 Docusate Sodium (Colace) 100 mg Q12H PRN PO CONSTIPATION Last administered on 02/10/18at 20:07; Admin Dose 100 MG; Start 02/07/18 at 16:30 Diltiazem HCl (Cardizem) 60 mg Q8 PO Last administered on 02/17/18at 05:58; Admin Dose 60 MG; Start 02/07/18 at 17:00 Guaifenesin/ Dextromethorphan (Robitussin Dm Liquid Cup) 30 ml Q4H PRN PO COUGH Last administered on 02/15/18at 22:23; Admin Dose 30 ML; Start 02/09/18 at 12:30 Levalbuterol (Xopenex Neb) 1.25 mg Q4H RESP THERAPY PRN HHN wheezing Last administered on 02/14/18at 14:17; Admin Dose 1.25 MG; Start 02/11/18 at 00:00 Hydralazine HCl (Apresoline) 10 mg Q4H PRN IV SBP>170 Last administered on 02/16/18at 00:07; Admin Dose 10 MG; Start 02/11/18 at 10:30 Miscellaneous Information 1 ea NOTE XX ; Start 02/11/18 at 11:00 Glucose (Glutose) 15 gm Q15M PRN PO DECREASED GLUCOSE; Start 02/11/18 at 11:00 Glucose (Glutose) 22.5 gm Q15M PRN PO DECREASED GLUCOSE; Start 02/11/18 at 11:00 Dextrose (D50w Syringe) 25 ml Q15M PRN IV DECREASED GLUCOSE; Start 02/11/18 at 11:00 Dextrose (D50w Syringe) 50 ml Q15M PRN IV DECREASED GLUCOSE; Start 02/11/18 at 11:00 Glucagon (Glucagen) 1 mg Q15M PRN IM DECREASED GLUCOSE; Start 02/11/18 at 11:00 Glucose (Glutose) 15 gm Q15M PRN BUCCAL DECREASED GLUCOSE; Start 02/11/18 at 11:00 Lansoprazole (Prevacid) 30 mg DAILY@06 GTB Last administered on 02/17/18at 05:58; Admin Dose 30 MG; Start 02/13/18 at 06:00 Apixaban (Eliquis) 2.5 mg BID PO Last administered on 02/17/18at 08:58; Admin Dose 2.5 MG; Start 02/12/18 at 21:00 Cefepime HCl 50 ml @ 100 mls/hr Q24H IVPB Last administered on 02/17/18at 08:58; Admin Dose 100 MLS/HR; Start 02/13/18 at 09:00 Oxycodone/ Acetaminophen (Percocet (5/ 325)) 1 tab Q4H PRN PO MODERATE PAIN LEVEL 4-6 Last administered on 02/17/18at 03:22; Admin Dose 1 TAB; Start 02/13/18 at 01:00 Lorazepam (Ativan) 0.5 mg Q12H PRN GTB restlessness; Start 02/13/18 at 11:00 Methylprednisolone Sodium Succinate (Solu-Medrol) 60 mg DAILY IV Last administered on 02/17/18at 08:58; Admin Dose 60 MG; Start 02/14/18 at 09:00 Vancomycin HCl (Vanco Iv Per Pharmacy) VANCOMYCIN PER PHARMACY PER PROTOCOL XX ; Start 02/14/18 at 08:00 Vancomycin HCl 1.25 gm/Sodium Chloride 250 ml @ 83.333 mls/ hr Q24H IVPB Last administered on 02/16/18at 12:22; Admin Dose 83.333 MLS/HR; Start 02/15/18 at 12:00 Lactulose (Enulose) 20 gm Q6H PRN PO CONSTIPATION Last administered on 02/14/18at 14:33; Admin Dose 20 GM; Start 02/14/18 at 14:00 Insulin Aspart (Novolog Insulin Pen) NOVOLOG *MILD* ALGORITHM WITH MEALS BEDTIME SC Last administered on 02/17/18at 12:03; Admin Dose 1 UNIT; Start 02/15/18 at 11:30 Atenolol (Tenormin) 50 mg BID PO Last administered on 02/17/18at 08:59; Admin Dose 50 MG; Start 02/16/18 at 21:00 Results Result Diagram: 02/16/18 0429 02/16/18 0430 Results 24 hrs Laboratory Tests Test 02/16/18 16:55 02/16/18 21:21 02/17/18 08:35 02/17/18 10:45 Bedside Glucose 158 215 141 Lab Scanned REFERENCE LAB Report Test 02/17/18 10:54 02/17/18 12:00 Vancomycin 12.2 Level Trough Bedside Glucose 150 CECE LOPEZ Feb 17, 2018 12:36
--- NOTE | 2018-02-17 13:08 | NUR ---
Vancomycin per Rx Vancomycin trough = 12.2 SCr 1.14 Continue Vancomycin 1.25 gm IV q24h
[2018-02-17] MEDS: VANCOMYCIN 1.25 GM in SOD CHLORIDE 0.9% 250 ML IVPB SCH (13:49)
--- NOTE | 2018-02-17 14:13 | NUR ---
Order to hold Eliquis was not entered in [facility]. RN administered dose the am, spoke with radiologist Dr. Spears regarding Eliquis administration, thoracentesis to be scheduled for tomorrow.
--- NOTE | 2018-02-17 17:43 | PN ---
Date/Time of Note Date/Time of Note DATE: 02/17/18 TIME: 17:42 Assessment/Plan VTE Prophylaxis Risk score (from Ns)>0 risk: 9 SCD applied (from Ns): Yes SCD contraindicated: other Pharmacological prophylaxis: other Lines/Catheters IV [facility] Type (from [facility]): Peripheral IV Urinary Cath still in place: Yes Reason Cath still needed: other (indicate) Assessment/Plan Hospital Course 1.AF-rate controlled 2.CHF-diastolic acute on chronic 3.HTN-reasonable control 4.Pleural effusion s/p thoracentesis c/b PTX now s/p CT 5. Renal failure 6. Leukocytosis 7. anemia 8. SQ emphysema extensive-tracking up into face and around eye getting better plan per pul and surgery antibiotic Subjective 24 Hr Interval Summary Respiratory: No shortness of breath Cardiovascular: no complaints Gastrointestinal: no complaints Exam/Review of Systems Vital Signs Vitals Vital Signs Date Temp Pulse Resp B/P (MAP) Pulse Ox O2 O2 Flow FiO2 Time Delivery Rate 02/17/18 98 20 146/81 99 17:00 (102) 02/17/18 2.0 16:44 02/17/18 98.1 Nasal 16:00 Cannula 02/14/18 27 04:45 Intake and Output 02/16/18 02/16/18 02/17/18 1515:00 23:00 07:00 IntakeIntake Total 358.41 ml 161.59 ml 180 ml OutputOutput Total 980 ml 516 ml 875 ml BalanceBalance -621.59 ml -354.41 ml -695 ml Exam Respiratory: clear to auscultation Cardiovascular: regular rate and rhythm Gastrointestinal: soft, bowel sounds (+) Extremities: No edema Medications Medications Current Medications IV Flush (NS 3 ml) 3 ml PER PROTOCOL IV ; Start 02/07/18 at 16:30 Ondansetron HCl (Zofran Inj) 4 mg Q6H PRN IV NAUSEA AND/OR VOMITING; Start 02/07/18 at 16:30 Acetaminophen (Tylenol Tab) 650 mg Q6H PRN PO PAIN LEVEL 1-3 OR FEVER; Start 02/07/18 at 16:30 Docusate Sodium (Colace) 100 mg Q12H PRN PO CONSTIPATION Last administered on 02/10/18at 20:07; Admin Dose 100 MG; Start 02/07/18 at 16:30 Diltiazem HCl (Cardizem) 60 mg Q8 PO Last administered on 02/17/18at 13:16; Admin Dose 60 MG; Start 02/07/18 at 17:00 Guaifenesin/ Dextromethorphan (Robitussin Dm Liquid Cup) 30 ml Q4H PRN PO COUGH Last administered on 02/15/18at 22:23; Admin Dose 30 ML; Start 02/09/18 at 12:30 Levalbuterol (Xopenex Neb) 1.25 mg Q4H RESP THERAPY PRN HHN wheezing Last administered on 02/14/18at 14:17; Admin Dose 1.25 MG; Start 02/11/18 at 00:00 Hydralazine HCl (Apresoline) 10 mg Q4H PRN IV SBP>170 Last administered on 02/16/18at 00:07; Admin Dose 10 MG; Start 02/11/18 at 10:30 Miscellaneous Information 1 ea NOTE XX ; Start 02/11/18 at 11:00 Glucose (Glutose) 15 gm Q15M PRN PO DECREASED GLUCOSE; Start 02/11/18 at 11:00 Glucose (Glutose) 22.5 gm Q15M PRN PO DECREASED GLUCOSE; Start 02/11/18 at 11:00 Dextrose (D50w Syringe) 25 ml Q15M PRN IV DECREASED GLUCOSE; Start 02/11/18 at 11:00 Dextrose (D50w Syringe) 50 ml Q15M PRN IV DECREASED GLUCOSE; Start 02/11/18 at 11:00 Glucagon (Glucagen) 1 mg Q15M PRN IM DECREASED GLUCOSE; Start 02/11/18 at 11:00 Glucose (Glutose) 15 gm Q15M PRN BUCCAL DECREASED GLUCOSE; Start 02/11/18 at 11:00 Lansoprazole (Prevacid) 30 mg DAILY@06 GTB Last administered on 02/17/18at 05:58; Admin Dose 30 MG; Start 02/13/18 at 06:00 Apixaban (Eliquis) 2.5 mg BID PO Last administered on 02/17/18at 08:58; Admin Dose 2.5 MG; Start 02/12/18 at 21:00; Status Hold Cefepime HCl 50 ml @ 100 mls/hr Q24H IVPB Last administered on 02/17/18at 08:58; Admin Dose 100 MLS/HR; Start 02/13/18 at 09:00 Oxycodone/ Acetaminophen (Percocet (5/ 325)) 1 tab Q4H PRN PO MODERATE PAIN LEVEL 4-6 Last administered on 02/17/18at 03:22; Admin Dose 1 TAB; Start 02/13/18 at 01:00 Lorazepam (Ativan) 0.5 mg Q12H PRN GTB restlessness; Start 02/13/18 at 11:00 Methylprednisolone Sodium Succinate (Solu-Medrol) 60 mg DAILY IV Last administered on 02/17/18at 08:58; Admin Dose 60 MG; Start 02/14/18 at 09:00 Vancomycin HCl (Vanco Iv Per Pharmacy) VANCOMYCIN PER PHARMACY PER PROTOCOL XX ; Start 02/14/18 at 08:00 Vancomycin HCl 1.25 gm/Sodium Chloride 250 ml @ 83.333 mls/ hr Q24H IVPB Last administered on 02/17/18at 13:49; Admin Dose 83.333 MLS/HR; Start 02/15/18 at 12:00 Lactulose (Enulose) 20 gm Q6H PRN PO CONSTIPATION Last administered on 02/14/18at 14:33; Admin Dose 20 GM; Start 02/14/18 at 14:00 Insulin Aspart (Novolog Insulin Pen) NOVOLOG *MILD* ALGORITHM WITH MEALS BEDTIME SC Last administered on 02/17/18at 12:03; Admin Dose 1 UNIT; Start 02/15/18 at 11:30 Atenolol (Tenormin) 50 mg BID PO Last administered on 02/17/18at 08:59; Admin Dose 50 MG; Start 02/16/18 at 21:00 Results Result Diagram: 02/16/18 0429 02/16/18 0430 Results 24 hrs Laboratory Tests Test 02/16/18 21:21 02/17/18 08:35 02/17/18 10:45 02/17/18 10:54 Bedside Glucose 215 141 Lab Scanned REFERENCE LAB Report Vancomycin 12.2 Level Trough Test 02/17/18 12:00 Bedside Glucose 150 KARLEY DEAN MD Feb 17, 2018 17:43
--- NOTE | 2018-02-17 19:17 | NUR ---
Report given to oncoming nurse. VSS
[2018-02-18] VITALS (23 sets, daily range): BP systolic 118–162; BP diastolic 48–97; PULSE 70–105; RESP 11–23
[2018-02-18] MEDS: DILTIAZEM 60 MG TAB PO SCH ×3 (05:36→22:08)
[2018-02-18] MEDS: LANSOPRAZOLE 30 MG CAP GTB SCH (05:36)
--- NOTE | 2018-02-18 05:44 | NUR ---
End of Shift.Received pt awake alert and responsive remain in A Fib follow command.Patient on 2LNC o2 sat >96% chest tube with -20 suction pale yellow color drainage noted.Pt for procedure today Eliquis remain on hold.Bar with destiney urine adequate amount.. All needs were tended to, care plans were updated and performed. Will endorse care to oncoming manager shift RN.
[2018-02-18] MEDS: INSULIN ASPART [NOVOLOG] 3 ML PEN SC SCH ×4 (07:35→20:55)
[2018-02-18] MEDS ORDERED: LIDOCAINE 1% (MPF) 5 ML VIAL ONE ×3 (08:24→08:26)
[2018-02-18] MEDS: CEFEPIME 1GM/50 ML (PMX) 50 ML IVPB SCH (08:25)
[2018-02-18] MEDS: METHYLPREDNISOLONE 125 MG INJ IV SCH (08:26)
[2018-02-18] MEDS: ATENOLOL 50 MG TAB PO SCH ×2 (08:26→20:51)
--- NOTE | 2018-02-18 08:33 | CONS ---
Date/Time of Note Date/Time of Note DATE: 02/18/18 TIME: 08:31 Assessment/Plan Assessment/Plan Additional Assessment/Plan Assessment recommendations; 1. Patient admitted with pneumonia with element of right pneumothorax after undergoing right thoracentesis, there was significant for some cutaneous emphysema with marked interval improvement. 2. Left lower lobe pneumonia, with parapneumonic left pleural effusion, c urrently getting thoracentesis. 3. Chronic atrial fibrillation. 4. Acute renal injury with normalization of renal function. Continue current supportive care. Obtain follow-up chest x-ray after tho racentesis. Patient can be transferred to medical floor. Consultation Date/Type/Reason Admit Date/Time Feb 07, 2018 at 13:54 Initial Consult Date Type of Consult Pulmonary/critical care Requesting Provider: FIDEL GAVIN MD 24 HR Interval Summary Free Text/Dictation Patient's condition is stable. Currently getting thoracentesis at bedside. Shortness of breath is continually improving. General exam; elderly male, awake alert, currently no distress. Sitting upright for the procedure. Exam/Review of Systems Vital Signs Vitals Vital Signs Date Temp Pulse Resp B/P (MAP) Pulse Ox O2 O2 Flow FiO2 Time Delivery Rate 02/18/18 94 15 153/72 100 Nasal 06:00 (99) Cannula 02/18/18 2.0 05:18 02/18/18 98.2 04:00 Intake and Output 02/17/18 02/17/18 02/18/18 1414:59 22:59 06:59 IntakeIntake Total 400 ml 450 ml OutputOutput Total 480 ml 750 ml 850 ml BalanceBalance -80 ml -300 ml -850 ml Exam HEENT exam; supple neck, no JVD. No lymphadenopathy. Midline trachea. No thyromegaly. Patient has fair dentition. There is continued and marked improvement in fascial subcutaneous emphysema. Chest exam; diminished breath sounds left lower lobe. Right-sided chest tube in place. Crepitus right anterolateral chest wall. S1-S2 audible, no murmurs. Irregular rhythm. Abdomen exam; soft, no organomegaly. Bowel sounds audible. Extremity exam; no peripheral edema or clubbing. 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 Medications Medications Current Medications IV Flush (NS 3 ml) 3 ml PER PROTOCOL IV ; Start 02/07/18 at 16:30 Ondansetron HCl (Zofran Inj) 4 mg Q6H PRN IV NAUSEA AND/OR VOMITING; Start 02/07/18 at 16:30 Acetaminophen (Tylenol Tab) 650 mg Q6H PRN PO PAIN LEVEL 1-3 OR FEVER; Start 02/07/18 at 16:30 Docusate Sodium (Colace) 100 mg Q12H PRN PO CONSTIPATION Last administered on 02/10/18at 20:07; Admin Dose 100 MG; Start 02/07/18 at 16:30 Diltiazem HCl (Cardizem) 60 mg Q8 PO Last administered on 02/18/18at 05:36; Admin Dose 60 MG; Start 02/07/18 at 17:00 Guaifenesin/ Dextromethorphan (Robitussin Dm Liquid Cup) 30 ml Q4H PRN PO COUGH Last administered on 02/15/18at 22:23; Admin Dose 30 ML; Start 02/09/18 at 12:30 Levalbuterol (Xopenex Neb) 1.25 mg Q4H RESP THERAPY PRN HHN wheezing Last administered on 02/14/18at 14:17; Admin Dose 1.25 MG; Start 02/11/18 at 00:00 Hydralazine HCl (Apresoline) 10 mg Q4H PRN IV SBP>170 Last administered on 02/16/18at 00:07; Admin Dose 10 MG; Start 02/11/18 at 10:30 Miscellaneous Information 1 ea NOTE XX ; Start 02/11/18 at 11:00 Glucose (Glutose) 15 gm Q15M PRN PO DECREASED GLUCOSE; Start 02/11/18 at 11:00 Glucose (Glutose) 22.5 gm Q15M PRN PO DECREASED GLUCOSE; Start 02/11/18 at 11:00 Dextrose (D50w Syringe) 25 ml Q15M PRN IV DECREASED GLUCOSE; Start 02/11/18 at 11:00 Dextrose (D50w Syringe) 50 ml Q15M PRN IV DECREASED GLUCOSE; Start 02/11/18 at 11:00 Glucagon (Glucagen) 1 mg Q15M PRN IM DECREASED GLUCOSE; Start 02/11/18 at 11:00 Glucose (Glutose) 15 gm Q15M PRN BUCCAL DECREASED GLUCOSE; Start 02/11/18 at 11:00 Lansoprazole (Prevacid) 30 mg DAILY@06 GTB Last administered on 02/18/18at 05:36; Admin Dose 30 MG; Start 02/13/18 at 06:00 Apixaban (Eliquis) 2.5 mg BID PO Last administered on 02/17/18at 08:58; Admin Dose 2.5 MG; Start 02/12/18 at 21:00; Status Hold Cefepime HCl 50 ml @ 100 mls/hr Q24H IVPB Last administered on 02/18/18at 08:25; Admin Dose 100 MLS/HR; Start 02/13/18 at 09:00 Oxycodone/ Acetaminophen (Percocet (5/ 325)) 1 tab Q4H PRN PO MODERATE PAIN LEVEL 4-6 Last administered on 02/17/18at 03:22; Admin Dose 1 TAB; Start 02/13/18 at 01:00 Lorazepam (Ativan) 0.5 mg Q12H PRN GTB restlessness; Start 02/13/18 at 11:00 Methylprednisolone Sodium Succinate (Solu-Medrol) 60 mg DAILY IV Last administered on 02/18/18at 08:26; Admin Dose 60 MG; Start 02/14/18 at 09:00 Vancomycin HCl (Vanco Iv Per Pharmacy) VANCOMYCIN PER PHARMACY PER PROTOCOL XX ; Start 02/14/18 at 08:00 Vancomycin HCl 1.25 gm/Sodium Chloride 250 ml @ 83.333 mls/ hr Q24H IVPB Last administered on 02/17/18at 13:49; Admin Dose 83.333 MLS/HR; Start 02/15/18 at 12:00 Lactulose (Enulose) 20 gm Q6H PRN PO CONSTIPATION Last administered on 02/14/18at 14:33; Admin Dose 20 GM; Start 02/14/18 at 14:00 Insulin Aspart (Novolog Insulin Pen) NOVOLOG *MILD* ALGORITHM WITH MEALS BEDTIME SC Last administered on 02/17/18at 18:41; Admin Dose 3 UNIT; Start 02/15/18 at 11:30 Atenolol (Tenormin) 50 mg BID PO Last administered on 02/18/18at 08:26; Admin Dose 50 MG; Start 02/16/18 at 21:00 Results Result Diagram: 02/18/18 0400 02/16/18 0430 Results 24 hrs Laboratory Tests Test 02/17/18 08:35 02/17/18 10:45 02/17/18 10:54 02/17/18 12:00 Bedside Glucose 141 150 Lab Scanned REFERENCE LAB Report Vancomycin 12.2 Level Trough Test 02/17/18 18:35 02/17/18 21:22 02/18/18 04:00 Bedside Glucose 224 H 166 White Blood 18.3 H Count Red Blood Count 3.70 L Hemoglobin 11.7 L Hematocrit 34.1 L Mean 92.2 Corpuscular Volume Mean 31.6 Corpuscular Hemoglobin Mean 34.3 Corpuscular Hemoglobin Conc ent Red Cell 13.3 Distribution Width Platelet Count 248 Mean Platelet 10.2 Volume Immature 1.500 H Granulocytes % Neutrophils % 83.6 H Lymphocytes % 7.2 L Monocytes % 7.6 Eosinophils % 0.0 Basophils % 0.1 Nucleated Red 0.0 Blood Cells % Immature 0.270 H Granulocytes # Neutrophils # 15.3 H Lymphocytes # 1.3 Monocytes # 1.4 H Eosinophils # 0.0 Basophils # 0.0 Nucleated Red 0.0 Blood Cells ALAN COTTON Feb 18, 2018 08:33
--- NOTE | 2018-02-18 08:33 | NUR ---
ULTRASOUND GUIDED LT THORACENTESIS PERFORMED BY DR. ABDI FELTON. 700 ML OF PLEURAL FLUID ASPIRATED AND DISCARDED. PT WAS IN PAIN AND ASK TO STOP THE PROCEDURE.
[2018-02-18] MEDS: OXYCODONE/ACETAMINOPHEN (5/325) TAB PO PRN (08:34)
--- NOTE | 2018-02-18 08:45 | NUR ---
PT NOTE СЕРГЕЙ [place] cleared pt for PT. Attempted to see pt however pt refused. Per RN, pt just had a thoracentesis. Pt stated, "I'm in a lot of pain and really tired. I don't think I can get up." Pt requested for this therapist to come back in the afternoon. Respected pt's wishes. Will f/u later if time permits
--- NOTE | 2018-02-18 10:19 | CONS ---
Date/Time of Note Date/Time of Note DATE: 02/18/18 TIME: 10:16 Assessment/Plan Assessment/Plan Chief Complaint/Hosp Course IMP: 1.AF-rate controlled 2.CHF-diastolic acute on chronic 3.HTN-reasonable control 4.Pleural effusion s/p thoracentesis c/b PTX now s/p CT. Now s/p thoracentesis on Left 5. Renal failure 6. Leukocytosis 7. anemia 8. SQ emphysema extensive-tracking up into face and around eye, continues to improve Recc: -ICU -Continue atenolol/dilt and priya make slight increase to dose to improve HR/BP further -Continue steroids/abx/bronchodilators -continue eliquis -Follow CT output closely -Follow exam with SQ emphysema closely which is significantly improved Consultation Date/Type/Reason Admit Date/Time Feb 07, 2018 at 13:54 Initial Consult Date 02/07/18 Type of Consult cardiology Reason for Consultation AF Requesting Provider: FIDEL GAVIN MD Exam/Review of Systems Vital Signs Vitals Vital Signs Date Temp Pulse Resp B/P (MAP) Pulse Ox O2 O2 Flow FiO2 Time Delivery Rate 02/18/18 81 21 145/84 100 Nasal 09:00 (104) Cannula 02/18/18 2.0 08:00 02/18/18 97.7 08:00 Intake and Output 02/17/18 02/17/18 02/18/18 1515:00 23:00 07:00 IntakeIntake Total 600 ml 250 ml OutputOutput Total 550 ml 780 ml 750 ml BalanceBalance 50 ml -530 ml -750 ml Exam Review of Systems: CONSTITUTIONAL: No fevers, chills. PULMONARY: mild sob CARDIOVASCULAR: No chest pain/palpitations GASTROINTESTINAL: No nausea/vomiting. GENITOURINARY: No hematuria/dysuria. MUSCULOSKELETAL: No myagias/arthalgias. PSYCHIATRIC: The patient denies depression. NEUROLOGIC: No weakness Constitutional: alert Psych: no complaints Head: normocephalic ENMT: mucosa pink and moist Neck: supple, jvd (9 cm water) Respiratory: diminished breath sounds (at bases/B) Cardiovascular: irregular rhythm Gastrointestinal: soft, non-tender Musculoskeletal: muscle tone (normal) Extremities: edema (none) 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: other (No focal deficits) Medications Medications Current Medications IV Flush (NS 3 ml) 3 ml PER PROTOCOL IV ; Start 02/07/18 at 16:30 Ondansetron HCl (Zofran Inj) 4 mg Q6H PRN IV NAUSEA AND/OR VOMITING; Start 02/07/18 at 16:30 Acetaminophen (Tylenol Tab) 650 mg Q6H PRN PO PAIN LEVEL 1-3 OR FEVER; Start 02/07/18 at 16:30 Docusate Sodium (Colace) 100 mg Q12H PRN PO CONSTIPATION Last administered on 02/10/18at 20:07; Admin Dose 100 MG; Start 02/07/18 at 16:30 Diltiazem HCl (Cardizem) 60 mg Q8 PO Last administered on 02/18/18at 05:36; Admin Dose 60 MG; Start 02/07/18 at 17:00 Guaifenesin/ Dextromethorphan (Robitussin Dm Liquid Cup) 30 ml Q4H PRN PO COUGH Last administered on 02/15/18at 22:23; Admin Dose 30 ML; Start 02/09/18 at 12:30 Levalbuterol (Xopenex Neb) 1.25 mg Q4H RESP THERAPY PRN HHN wheezing Last administered on 02/14/18at 14:17; Admin Dose 1.25 MG; Start 02/11/18 at 00:00 Hydralazine HCl (Apresoline) 10 mg Q4H PRN IV SBP>170 Last administered on 02/16/18at 00:07; Admin Dose 10 MG; Start 02/11/18 at 10:30 Miscellaneous Information 1 ea NOTE XX ; Start 02/11/18 at 11:00 Glucose (Glutose) 15 gm Q15M PRN PO DECREASED GLUCOSE; Start 02/11/18 at 11:00 Glucose (Glutose) 22.5 gm Q15M PRN PO DECREASED GLUCOSE; Start 02/11/18 at 11:00 Dextrose (D50w Syringe) 25 ml Q15M PRN IV DECREASED GLUCOSE; Start 02/11/18 at 11:00 Dextrose (D50w Syringe) 50 ml Q15M PRN IV DECREASED GLUCOSE; Start 02/11/18 at 11:00 Glucagon (Glucagen) 1 mg Q15M PRN IM DECREASED GLUCOSE; Start 02/11/18 at 11:00 Glucose (Glutose) 15 gm Q15M PRN BUCCAL DECREASED GLUCOSE; Start 02/11/18 at 11:00 Lansoprazole (Prevacid) 30 mg DAILY@06 GTB Last administered on 02/18/18at 05:36; Admin Dose 30 MG; Start 02/13/18 at 06:00 Apixaban (Eliquis) 2.5 mg BID PO Last administered on 02/17/18at 08:58; Admin Dose 2.5 MG; Start 02/12/18 at 21:00; Status Hold Cefepime HCl 50 ml @ 100 mls/hr Q24H IVPB Last administered on 02/18/18at 08:25; Admin Dose 100 MLS/HR; Start 02/13/18 at 09:00 Oxycodone/ Acetaminophen (Percocet (5/ 325)) 1 tab Q4H PRN PO MODERATE PAIN LEVEL 4-6 Last administered on 02/18/18at 08:34; Admin Dose 1 TAB; Start 02/13/18 at 01:00 Lorazepam (Ativan) 0.5 mg Q12H PRN GTB restlessness; Start 02/13/18 at 11:00 Methylprednisolone Sodium Succinate (Solu-Medrol) 60 mg DAILY IV Last administered on 02/18/18at 08:26; Admin Dose 60 MG; Start 02/14/18 at 09:00 Vancomycin HCl (Vanco Iv Per Pharmacy) VANCOMYCIN PER PHARMACY PER PROTOCOL XX ; Start 02/14/18 at 08:00 Vancomycin HCl 1.25 gm/Sodium Chloride 250 ml @ 83.333 mls/ hr Q24H IVPB Last administered on 02/17/18at 13:49; Admin Dose 83.333 MLS/HR; Start 02/15/18 at 12:00 Lactulose (Enulose) 20 gm Q6H PRN PO CONSTIPATION Last administered on 02/14/18at 14:33; Admin Dose 20 GM; Start 02/14/18 at 14:00 Insulin Aspart (Novolog Insulin Pen) NOVOLOG *MILD* ALGORITHM WITH MEALS BEDTIME SC Last administered on 02/17/18at 18:41; Admin Dose 3 UNIT; Start 02/15/18 at 11:30 Atenolol (Tenormin) 50 mg BID PO Last administered on 02/18/18at 08:26; Admin Dose 50 MG; Start 02/16/18 at 21:00 Results Result Diagram: 02/18/18 0400 02/16/18 0430 Results 24 hrs Laboratory Tests Test 02/17/18 10:45 02/17/18 10:54 02/17/18 12:00 02/17/18 18:35 Lab Scanned REFERENCE LAB Report Vancomycin 12.2 Level Trough Bedside Glucose 150 224 H Test 02/17/18 21:22 02/18/18 04:00 02/18/18 08:20 Bedside Glucose 166 113 White Blood 18.3 H Count Red Blood Count 3.70 L Hemoglobin 11.7 L Hematocrit 34.1 L Mean 92.2 Corpuscular Volume Mean 31.6 Corpuscular Hemoglobin Mean 34.3 Corpuscular Hemoglobin Conc ent Red Cell 13.3 Distribution Width Platelet Count 248 Mean Platelet 10.2 Volume Immature 1.500 H Granulocytes % Neutrophils % 83.6 H Lymphocytes % 7.2 L Monocytes % 7.6 Eosinophils % 0.0 Basophils % 0.1 Nucleated Red 0.0 Blood Cells % Immature 0.270 H Granulocytes # Neutrophils # 15.3 H Lymphocytes # 1.3 Monocytes # 1.4 H Eosinophils # 0.0 Basophils # 0.0 Nucleated Red 0.0 Blood Cells # CECE LOPEZ Feb 18, 2018 10:19
--- NOTE | 2018-02-18 10:53 | NUR ---
PT [facility] Patient: Sung Santana : 1940 Age/Sex: 77/M Unit#: [id number] Room/Bed: 105/A User: Gay Woods PTA Date: 02/18/18 10:53 Type: PT Technical Record Therapy day number 3 Subjective Current complaint of pain Pain Scale NUMERIC Pain Intensity 6 (0-10) Patient Stated Goal for Pain Relief 0 (0-10) Pain Level Comment R flank, chest tube insertion Transfer Training Start Time 10:27 Transfer Sit to Stand Ability Minimum Assist Bed Mobility Sit to Supine Minimum Assist Chair Transfer Ability Minimum Assist Transfer Training End Time 10:40 Total Transfer Training Time 13 min (8-127) Gait Training Start Time 10:40 Gait Assist Levels Minimum Assist Assistive Devices Front Wheel Walker Ambulation Distance 10 feet Additional Gait Comments dec step length/stride, low foot clearance, forward posture d/t pain Gait Training End Time 10:53 Total Gait Training Treatment Time 13 min (8-127) Static Sitting Balance Fair plus Dynamic Sitting Balance Fair Standing Static Balance Fair Dynamic Standing Balance Fair minus Additional Balance Assessments Comments FWW Safety Judgement Fair Activity Tolerance Fair Equipment Present Bar Catheter IV pump Additional Equipment Present chest tube, IV monitor lines, 2L O2 NC Post Treatment Pain Intensity 6 0-10 Quality Indicators Dizziness Variance Documentation See PT note Total Treament Time 26 min (8-127) Total Minutes 26 Total Units 2 PT Technical Record Comment PT NOTE S: RN Madd[place] cleared pt for PT. Pt c/o 6/10 R flank pain where chest tube is inserted. Agreeable to tx O: Received pt sitting on bedside chair w/ RN present in room. Chinedu mobility, transfers, and gait training w/ FWW. Gait training x 10' and presented with decreased step length/stride, low foot clearance, forward flexed posture due to pain. Returned pt back to bed. Positioned pt to comfort in semifowler. Call light/phone within reach. Needs met. Informed RN of pt status and PT activities A: Fair tolerance to tx. Limited due to pain, dizziness and fatigue P: Continue w/ POC and progress as tolerated.
--- NOTE | 2018-02-18 11:40 | PN ---
Date/Time of Note Date/Time of Note DATE: 02/18/18 TIME: 11:37 Assessment/Plan VTE Prophylaxis Risk score (from Ns)>0 risk: 3 SCD applied (from Ns): No SCD contraindicated: other Pharmacological prophylaxis: apixaban Lines/Catheters IV Catheter Type (from Rust): Saline Lock Urinary Cath still in place: Yes Reason Cath still needed: urinary retention Assessment/Plan Hospital Course ASSESSMENT AND PLAN: This is a 77-year-old male who presented with: # Respiratory failure status post intubation on 1211 this post extubation #. Shortness of breath likely secondary to congestive heart failure/chronic obstructive pulmonary disease exacerbation. # right-sided pneumothorax status post thoracentesis, now with chest tube , subcutanoeus emphysema, chest tube in place # Large left pleural effusion, status post thoracentesis in the past. Status post thoracentesis on 1217 # History of chronic obstructive pulmonary disease. #. Atrial fibrillation with rapid ventricular response.controlled #. Hypertension. # EKG changes of atrial fibrillation with ST segment changes in the inferior l wale. # History of lung cancer status post chemo and radiation.? NEW Lung metastases # History of coronary artery disease. #. Pleural effusion, status post thoracentesis. # Elevated BNP secondary to congestive heart failure. #. Hyponatremia. # History of peripheral vascular disease. # LEUKOCYTOSIS secondary to steroids # acute on chronic renal failure likely due to prerenal/ATN Overdiuresis, and uptrending continue to monitor urine monitor creatinine, cR 1.8 > trending down> resolved #Mild hyperkalemia #Stream puffiness around the right eye due to extensive subcutaneous emphysema, and on the soft tissue CT> markerdly improving around the eye Plan -This post thoracentesis today -Continue to monitor -Start Eliquis -Taper Solu-Medrol/to prednisone -Due to monitor WBC count - ? VATS if patient has subcutaneous emphysema per Dr. Joseph Avendano - continue with vancomycin/cefepime - c w diltazem and atenolol - f/u cardiac and pul recs -- PT eval Subjective 24 Hr Interval Summary Free Text/Dictation This post thoracentesis today, chest x-ray shows no pneumothorax Chest tube on the right still draining Exam/Review of Systems Vital Signs Vitals Vital Signs Date Temp Pulse Resp B/P (MAP) Pulse Ox O2 O2 Flow FiO2 Time Delivery Rate 02/18/18 89 23 132/58 100 Nasal 10:00 (82) Cannula 02/18/18 2.0 08:00 02/18/18 97.7 08:00 Intake and Output 02/17/18 02/17/18 02/18/18 1515:00 23:00 07:00 IntakeIntake Total 600 ml 250 ml OutputOutput Total 550 ml 780 ml 750 ml BalanceBalance 50 ml -530 ml -750 ml Exam Respiratory: diminished breath sounds Cardiovascular: regular rate and rhythm Gastrointestinal: soft, bowel sounds (+) Extremities: edema (tr) Skin: other (sub emphysema+) Medications Medications Current Medications IV Flush (NS 3 ml) 3 ml PER PROTOCOL IV ; Start 02/07/18 at 16:30 Ondansetron HCl (Zofran Inj) 4 mg Q6H PRN IV NAUSEA AND/OR VOMITING; Start 02/07/18 at 16:30 Acetaminophen (Tylenol Tab) 650 mg Q6H PRN PO PAIN LEVEL 1-3 OR FEVER; Start 02/07/18 at 16:30 Docusate Sodium (Colace) 100 mg Q12H PRN PO CONSTIPATION Last administered on 02/10/18at 20:07; Admin Dose 100 MG; Start 02/07/18 at 16:30 Diltiazem HCl (Cardizem) 60 mg Q8 PO Last administered on 02/18/18at 05:36; Admin Dose 60 MG; Start 02/07/18 at 17:00 Guaifenesin/ Dextromethorphan (Robitussin Dm Liquid Cup) 30 ml Q4H PRN PO COUGH Last administered on 02/15/18at 22:23; Admin Dose 30 ML; Start 02/09/18 at 12:30 Levalbuterol (Xopenex Neb) 1.25 mg Q4H RESP THERAPY PRN HHN wheezing Last administered on 02/14/18at 14:17; Admin Dose 1.25 MG; Start 02/11/18 at 00:00 Hydralazine HCl (Apresoline) 10 mg Q4H PRN IV SBP>170 Last administered on 02/16/18at 00:07; Admin Dose 10 MG; Start 02/11/18 at 10:30 Miscellaneous Information 1 ea NOTE XX ; Start 02/11/18 at 11:00 Glucose (Glutose) 15 gm Q15M PRN PO DECREASED GLUCOSE; Start 02/11/18 at 11:00 Glucose (Glutose) 22.5 gm Q15M PRN PO DECREASED GLUCOSE; Start 02/11/18 at 11: 00 Dextrose (D50w Syringe) 25 ml Q15M PRN IV DECREASED GLUCOSE; Start 02/11/18 at 11:00 Dextrose (D50w Syringe) 50 ml Q15M PRN IV DECREASED GLUCOSE; Start 02/11/18 at 11:00 Glucagon (Glucagen) 1 mg Q15M PRN IM DECREASED GLUCOSE; Start 02/11/18 at 11:00 Glucose (Glutose) 15 gm Q15M PRN BUCCAL DECREASED GLUCOSE; Start 02/11/18 at 11:00 Lansoprazole (Prevacid) 30 mg DAILY@06 GTB Last administered on 02/18/18at 05:36; Admin Dose 30 MG; Start 02/13/18 at 06:00 Cefepime HCl 50 ml @ 100 mls/hr Q24H IVPB Last administered on 02/18/18at 08:25; Admin Dose 100 MLS/HR; Start 02/13/18 at 09:00 Oxycodone/ Acetaminophen (Percocet (5/ 325)) 1 tab Q4H PRN PO MODERATE PAIN LEVEL 4-6 Last administered on 02/18/18at 08:34; Admin Dose 1 TAB; Start 02/13/18 at 01:00 Lorazepam (Ativan) 0.5 mg Q12H PRN GTB restlessness; Start 02/13/18 at 11:00 Vancomycin HCl (Vanco Iv Per Pharmacy) VANCOMYCIN PER PHARMACY PER PROTOCOL XX ; Start 02/14/18 at 08:00 Vancomycin HCl 1.25 gm/Sodium Chloride 250 ml @ 83.333 mls/ hr Q24H IVPB Last administered on 02/17/18at 13:49; Admin Dose 83.333 MLS/HR; Start 02/15/18 at 12:00 Lactulose (Enulose) 20 gm Q6H PRN PO CONSTIPATION Last administered on 02/14/18 at 14:33; Admin Dose 20 GM; Start 02/14/18 at 14:00 Insulin Aspart (Novolog Insulin Pen) NOVOLOG *MILD* ALGORITHM WITH MEALS BEDTIME SC Last administered on 02/17/18at 18:41; Admin Dose 3 UNIT; Start 02/15/18 at 11:30 Atenolol (Tenormin) 50 mg BID PO Last administered on 02/18/18at 08:26; Admin Dose 50 MG; Start 02/16/18 at 21:00 Apixaban (Eliquis) 2.5 mg BID PO ; Start 02/18/18 at 21:00; Status UNV Results Result Diagram: 02/18/18 0400 02/16/18 0430 Results 24 hrs Laboratory Tests Test 02/17/18 12:00 02/17/18 18:35 02/17/18 21:22 02/18/18 04:00 Bedside Glucose 150 224 H 166 White Blood 18.3 H Count Red Blood Count 3.70 L Hemoglobin 11.7 L Hematocrit 34.1 L Mean Corpuscular 92.2 Volume Mean Corpuscular 31.6 Hemoglobin Mean Corpuscular 34.3 Hemoglobin Naz nt Red Cell 13.3 Distribution Width Platelet Count 248 Mean Platelet 10.2 Volume Immature 1.500 H Granulocytes % Neutrophils % 83.6 H Lymphocytes % 7.2 L Monocytes % 7.6 Eosinophils % 0.0 Basophils % 0.1 Nucleated Red 0.0 Blood Cells % Immature 0.270 H Granulocytes # Neutrophils # 15.3 H Lymphocytes # 1.3 Monocytes # 1.4 H Eosinophils # 0.0 Basophils # 0.0 Nucleated Red 0.0 Blood Cells # Test 02/18/18 08:20 Bedside Glucose 113 FIDEL GAVIN MD Feb 18, 2018 11:40
[2018-02-18] MEDS: GUAIFENESIN/DM 5ML CUP PO PRN ×2 (11:42→22:15)
[2018-02-18] MEDS: VANCOMYCIN 1.25 GM in SOD CHLORIDE 0.9% 250 ML IVPB SCH (12:22)
--- NOTE | 2018-02-18 15:19 | PN ---
Date/Time of Note Date/Time of Note DATE: 02/18/18 TIME: 15:17 Assessment/Plan Lines/Catheters IV Catheter Type (from Nrsg): Saline Lock Bar in Place (from Nrsg): Yes Assessment/Plan Assessment/Plan Right-sided pneumothorax status post chest tube placement. Pt developed SQ emphysema after clamping the tube CT with 300cc output Right Chest PTX stable RECOMMENDATIONS: We will continue chest tube sxn . Monitor the chest x-ray may need VATS if develops SQ Emphysema with clamping the tube. Discuss with the referring physicians. Subjective 24 Hr Interval Summary Constitutional: improved Pain Control: mild Exam/Review of Systems Vital Signs Vitals Vital Signs Date Temp Pulse Resp B/P (MAP) Pulse Ox O2 O2 Flow FiO2 Time Delivery Rate 02/18/18 83 12 142/80 100 Nasal 2.0 15:00 (100) Cannula 02/18/18 97.7 08:00 Intake and Output 02/17/18 02/17/18 02/18/18 1515:00 23:00 07:00 IntakeIntake Total 600 ml 250 ml OutputOutput Total 550 ml 780 ml 785 ml BalanceBalance 50 ml -530 ml -785 ml Exam Neck: supple, non-tender Respiratory: clear to auscultation, normal air movement Cardiovascular: regular rate and rhythm, nl pulses Gastrointestinal: soft, nl liver, spleen, non-tender Musculoskeletal: nl extremities to inspection, nl gait and stance Results Result Diagram: 02/18/18 0400 02/16/18 0430 SHIRA ORTIZ MD Feb 18, 2018 15:19
--- NOTE | 2018-02-18 17:04 | NUR ---
END OF SHIFT SUMMARY - PT REMAINS STABLE. CHEST TUBE TO SXN SEROUS FLUID NOTED 100ML. TOLERATED THORACENTESIS WITHOUT ANY DIFFICULTY. CONTINUE WITH CURRENT PLAN OF CARE
[2018-02-18] MEDS: APIXABAN 5 MG TABLET PO SCH (20:55)
--- NOTE | 2018-02-18 20:59 | CONS ---
DATE OF ADMISSION: 02/07/2018 DATE OF CONSULTATION: 02/18/2018 TYPE OF CONSULTATION: Infectious disease. REASON FOR CONSULTATION: Antibiotic management. HISTORY OF PRESENT ILLNESS: Sung Nielsen is a 77-year-old male who was admitted with shortness of b reath. His problems include: 1. Hypertension. 2. Hyperlipidemia. 3. COPD. 4. Chronic renal disease. 5. Atherosclerotic cardiovascular disease. 6. History of lung cancer, status post radiation. 7. Cardiomyopathy with ejection fraction of 35% to 40%. 8. Atrial fibrillation with rapid ventricular response. 9. History of CVA. 10. History of carotid endarterectomy. The patient has a history of moderate left-sided pleural effusion, history of thoracentesis, left low er lobe pneumonia, and also atrial fibrillation as noted with rapid ventricular response. He has bee n followed by Dr. Hall and Dr. Saleh as an outpatient. He was admitted in 08/2016 and was dischar ged to SNF. Currently, he has been feeling short of breath for 1 week prior to his admission. He wa s not sure if he is taking Lasix. He denied cough, fever, and chills. He was brought to the emergen cy room, gasping for breath. His initial blood pressure was 174/85, respirations 26, atrial fibrilla tion, pulse of 75. BUN/creatinine 15/1.1. White count was 11.5, hemoglobin 13.1. Chest x-ray showe d no significant change in the large left pleural effusion, dense left mid to lower lung consolidatio n with atelectasis, pneumonia was not excluded. There was a small right pleural effusion. He receiv ed Solu-Medrol in the emergency room, albuterol, Atrovent, Vasotec, aspirin, Lasix, nitroglycerin; a nd was admitted. HOSPITAL COURSE: The patient was placed on BiPAP. He was seen by Dr. Guajardo who noted recurrent pl eural effusion, questionable malignant; history of cardiomyopathy. We will consider CT of the chest to evaluate left pleural effusion, which appears loculated on chest x-ray. The patient was seen on 04/12/[address] Viera, and he was on intermittent BiPAP, white count was 20.1. The patient was s een by Dr. Olvera, cardiovascular surgeon, with right-sided pneumothorax. The patient had a right pleural effusion, admitted, underwent thoracentesis, and was found to have a large right-sided pneum othorax. Subsequently, he had a chest tube and was intubated. The patient on 02/11/2018 was intubat ed. Chest tube had 50 mL of serosanguineous fluid. Chest x-ray showed a small right pneumothorax, w hich was improving. Impression was right-sided pneumothorax, status post chest tube placement. The patient was seen by Dr. Guajardo on 02/12/2018. White count was down to 10.7. ____. The patient was admitted with left lower lobe pneumonia with right pneumothorax, status post chest tube placement, a nd white count of 16,000 on 02/14/2018, increasing left lower lobe infiltrate, improving renal functi on, hypertension, atrial fibrillation; and the patient was on vancomycin and cefepime, also on methyl prednisolone. He was seen by Dr. Olvera on 02/14/2018. Chest tube with 30 mL output. We will co ntinue chest tube to waterseal. Monitor the chest x-ray. On 02/18/2018, Dr. Roberson noted respirator y failure, status post intubation on 02/12/2018, now post extubation, shortness of breath likely seco ndary to congestive failure, COPD, right-sided pneumothorax, status post thoracentesis, now with ches t tube, subcutaneous emphysema, large left pleural effusion, status post thoracentesis in the past, s tatus post thoracentesis on 02/18/2018, leukocytosis probably secondary to steroids. White count of 18.3 on 02/16/2018. Dr. Olvera noted that the patient may need VATS if he develops subcutaneous e mphysema with clamping of the tube. He was seen by Dr. Holder. Left lower lobe pneumonia with parapn eumonic left pleural effusion, obtain chest x-ray after thoracentesis today. The patient can then be transferred to the floor. PAST MEDICAL HISTORY: Operations as outlined. FAMILY HISTORY: Noncontributory. SOCIAL HISTORY: He does not smoke, drink, or abuse drugs. He lives by himself. ALLERGIES: NONE TO PENICILLIN, SULFA, OR FOODS. MEDICATIONS: Per chart. REVIEW OF SYSTEMS: As per HPI. PHYSICAL EXAMINATION: GENERAL: The patient is a well-developed, well-nourished, somewhat disheveled male who is awake, but has garbled speech, in no acute distress. VITAL SIGNS: Stable. He is afebrile. SKIN: Without generalized rash. HEENT: Within normal limits. NECK: Supple. LYMPH NODES: None palpable. CHEST: Decreased breath sounds at bases. Thorax: Right chest tube in place. Diminished breath pantera nds as noted. Crepitus at the right anterolateral chest wall. HEART: Without murmur or gallop, irregular rhythm. ABDOMEN: Soft, nontender, without organosplenomegaly or masses. EXTREMITIES: Without cyanosis, clubbing, or edema. RECTAL AND GENITAL: Deferred. NEUROLOGIC: No focal neurological abnormality. IMPRESSION AND PLAN: The patient continues with left lower lobe pneumonia with parapneumonic left pl eural effusion. He was admitted with right pneumothorax. His chest tube is still present and he is currently on vancomycin and cefepime. We will continue him on this regimen for the time being. I wi ll dictate my findings to Dr. Roberson and the aforementioned consultants. Dictated By: JEFFRY CASTILLO MD, JD/JACQUELINE Conf#: [id number] DID#: [id number] CC: FIDEL ROBERSON;*EndCC*
[2018-02-19] VITALS (22 sets, daily range): BP systolic 116–153; BP diastolic 54–96; PULSE 76–95; RESP 11–22
[2018-02-19] MEDS: DILTIAZEM 60 MG TAB PO SCH ×3 (05:17→21:09)
[2018-02-19] MEDS: LANSOPRAZOLE 30 MG CAP GTB SCH (05:17)
--- NOTE | 2018-02-19 05:29 | NUR ---
End of Shift.Received pt awake alert and responsive remain in A Fib follow command.Patient on 2LNC o2 sat >96% chest tube with -20 suction serous drainage noted..Bar with destiney urine adequate amount. All needs were tended to, care plans were updated and chg bath performed. Will endorse care to oncoming shift RN.Pt rested well during the shift no distress.
[2018-02-19] MEDS: INSULIN ASPART [NOVOLOG] 3 ML PEN SC SCH ×4 (07:35→21:00)
[2018-02-19] MEDS ORDERED: predniSONE 20 MG TAB PO SCH (09:00)
--- NOTE | 2018-02-19 09:17 | CONS ---
Date/Time of Note Date/Time of Note DATE: 02/19/18 TIME: 09:15 Assessment/Plan Assessment/Plan Additional Assessment/Plan Assessment and recommendations; 1. Patient admitted with bilateral pneumonia is currently on appropriate antimicrobial regimen. 2. Right pneumothorax, with significant cutaneous emphysema with interval improvement. 3. History of chronic atrial fibrillation. Continue on supportive care. Transfer to medical floor. Consultation Date/Type/Reason Admit Date/Time Feb 07, 2018 at 13:54 Initial Consult Date Type of Consult Pulmonary/critical care Requesting Provider: FIDEL GAVIN MD 24 HR Interval Summary Free Text/Dictation Patient's condition is stable. Denies any shortness of breath, wheezing, chest pain. Underwent left thoracentesis yesterday. 700 mL of fluid was removed. General exam; elderly male, awake alert, currently no distress. Exam/Review of Systems Vital Signs Vitals Vital Signs Date Temp Pulse Resp B/P (MAP) Pulse Ox O2 O2 Flow FiO2 Time Delivery Rate 02/19/18 83 15 153/92 100 Mechanical 07:00 (112) Ventilator 02/19/18 98.1 04:00 02/19/18 2.0 01:36 Intake and Output 02/18/18 02/18/18 02/19/18 1515:00 23:00 07:00 IntakeIntake Total 650 ml 350 ml OutputOutput Total 570 ml 420 ml 300 ml BalanceBalance 80 ml -70 ml -300 ml Exam HEENT exam; supple neck, no JVD. No lymphadenopathy. Midline trachea. No thyromegaly. There is continued marked reduction in right-sided facial subcutaneous emphysema. Patient has fair dentition. Chest exam; diminished but clear breath sounds. Right side chest tube in place. There is obtain his emphysema involving the right anterolateral chest wall. Abdomen exam; soft, no organomegaly. Bowel sounds audible. Nontender. Extremity exam; no edema clubbing. 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 Medications Medications Current Medications IV Flush (NS 3 ml) 3 ml PER PROTOCOL IV ; Start 02/07/18 at 16:30 Ondansetron HCl (Zofran Inj) 4 mg Q6H PRN IV NAUSEA AND/OR VOMITING; Start 02/07/18 at 16:30 Acetaminophen (Tylenol Tab) 650 mg Q6H PRN PO PAIN LEVEL 1-3 OR FEVER; Start 02/07/18 at 16:30 Docusate Sodium (Colace) 100 mg Q12H PRN PO CONSTIPATION Last administered on 02/10/18at 20:07; Admin Dose 100 MG; Start 02/07/18 at 16:30 Diltiazem HCl (Cardizem) 60 mg Q8 PO Last administered on 02/19/18at 05:17; Admin Dose 60 MG; Start 02/07/18 at 17:00 Guaifenesin/ Dextromethorphan (Robitussin Dm Liquid Cup) 30 ml Q4H PRN PO COUGH Last administered on 02/18/18at 22:15; Admin Dose 30 ML; Start 02/09/18 at 12:30 Levalbuterol (Xopenex Neb) 1.25 mg Q4H RESP THERAPY PRN HHN wheezing Last administered on 02/14/18at 14:17; Admin Dose 1.25 MG; Start 02/11/18 at 00:00 Hydralazine HCl (Apresoline) 10 mg Q4H PRN IV SBP>170 Last administered on 02/16/18at 00:07; Admin Dose 10 MG; Start 02/11/18 at 10:30 Miscellaneous Information 1 ea NOTE XX ; Start 02/11/18 at 11:00 Glucose (Glutose) 15 gm Q15M PRN PO DECREASED GLUCOSE; Start 02/11/18 at 11:00 Glucose (Glutose) 22.5 gm Q15M PRN PO DECREASED GLUCOSE; Start 02/11/18 at 11:00 Dextrose (D50w Syringe) 25 ml Q15M PRN IV DECREASED GLUCOSE; Start 02/11/18 at 11:00 Dextrose (D50w Syringe) 50 ml Q15M PRN IV DECREASED GLUCOSE; Start 02/11/18 at 11:00 Glucagon (Glucagen) 1 mg Q15M PRN IM DECREASED GLUCOSE; Start 02/11/18 at 11:00 Glucose (Glutose) 15 gm Q15M PRN BUCCAL DECREASED GLUCOSE; Start 02/11/18 at 11:00 Lansoprazole (Prevacid) 30 mg DAILY@06 GTB Last administered on 02/19/18at 05:17; Admin Dose 30 MG; Start 02/13/18 at 06:00 Cefepime HCl 50 ml @ 100 mls/hr Q24H IVPB Last administered on 02/18/18at 08:25; Admin Dose 100 MLS/HR; Start 02/13/18 at 09:00 Oxycodone/ Acetaminophen (Percocet (5/ 325)) 1 tab Q4H PRN PO MODERATE PAIN LEVEL 4-6 Last administered on 02/18/18at 08:34; Admin Dose 1 TAB; Start 02/13/18 at 01:00 Lorazepam (Ativan) 0.5 mg Q12H PRN GTB restlessness; Start 02/13/18 at 11:00 Vancomycin HCl (Vanco Iv Per Pharmacy) VANCOMYCIN PER PHARMACY PER PROTOCOL XX ; Start 02/14/18 at 08:00 Vancomycin HCl 1.25 gm/Sodium Chloride 250 ml @ 83.333 mls/ hr Q24H IVPB Last administered on 02/18/18at 12:22; Admin Dose 83.333 MLS/HR; Start 02/15/18 at 12:00 Lactulose (Enulose) 20 gm Q6H PRN PO CONSTIPATION Last administered on 02/14/18at 14:33; Admin Dose 20 GM; Start 02/14/18 at 14:00 Insulin Aspart (Novolog Insulin Pen) NOVOLOG *MILD* ALGORITHM WITH MEALS BEDTIME SC Last administered on 02/18/18at 20:55; Admin Dose 1 UNIT; Start 02/15/18 at 11:30 Atenolol (Tenormin) 50 mg BID PO Last administered on 02/18/18at 20:51; Admin Dose 50 MG; Start 02/16/18 at 21:00 Apixaban (Eliquis) 2.5 mg BID PO Last administered on 02/18/18at 20:55; Admin Dose 2.5 MG; Start 02/18/18 at 21:00 Prednisone (Prednisone) 40 mg DAILY PO ; Start 02/19/18 at 09:00 Results Result Diagram: 02/19/18 0514 02/19/18 0514 Results 24 hrs Laboratory Tests Test 02/18/18 11:35 02/18/18 11:36 02/18/18 17:09 02/18/18 20:53 Bedside Glucose 522 *H 159 224 H 181 Test 02/19/18 05:14 02/19/18 07:52 White Blood 25.0 #H Count Red Blood Count 3.65 L Hemoglobin 11.5 L Hematocrit 34.3 L Mean Corpuscular 94.0 Volume Mean Corpuscular 31.5 Hemoglobin Mean Corpuscular 33.5 Hemoglobin Naz nt Red Cell 13.3 Distribution Width Platelet Count 256 Mean Platelet 10.0 Volume Immature 1.700 H Granulocytes % Neutrophils % Lymphocytes % Monocytes % Eosinophils % Basophils % Nucleated Red 0.0 Blood Cells % Immature 0.420 H Granulocytes # Neutrophils # Lymphocytes # Monocytes # Eosinophils # Basophils # Nucleated Red Blood Cells # Sodium Level 135 Potassium Level 4.0 Chloride Level 99 Carbon Dioxide 28 Level Anion Gap 8 Blood Urea 41 H Nitrogen Creatinine 1.09 Est Glomerular Filtrat Rate mL/min Glucose Level 127 Calcium Level 8.8 Phosphorus Level 3.9 Magnesium Level 2.0 Bedside Glucose 115 ALAN DICKERSON Feb 19, 2018 09:17
[2018-02-19] MEDS: APIXABAN 5 MG TABLET PO SCH ×2 (09:40→21:08)
[2018-02-19] MEDS: CEFEPIME 1GM/50 ML (PMX) 50 ML IVPB SCH (09:40)
[2018-02-19] MEDS: ATENOLOL 50 MG TAB PO SCH ×2 (09:41→21:09)
--- NOTE | 2018-02-19 10:23 | CONS ---
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 Now with pleural effusion s/p thoracentesis, complicated by PTX and now with chest tube and SP extubated- -f/u cytology on pleural effusion is negative for malignancy -when he is more stable, check CT chest with contrast -mild leukocytosis likely reactive, stable WBC -mild anemia, suspect due to anemia of chronic disease -once he is more stable and he can have CT chest with contrast will better be able to assess if he has disease recurrence cont current care per ICU for now Patient is seen in collaboration with Dr Green Consultation Date/Type/Reason Admit Date/Time Feb 07, 2018 at 13:54 Initial Consult Date 02/10/2108 Type of Consult Oncology/ Hematology Reason for Consultation LUNG MASS Requesting Provider: FIDEL GAVIN MD 24 HR Interval Summary Constitutional: requiring IVF Detailed Summary Respiratory: no complaints, other (C/O PAIN IN RIGHT CHEST AT CATHETER iNSERTION SITE- better with pain med) Cardiovascular: no complaints Gastrointestinal: no complaints Genitourinary: no complaints Musculoskeletal: no complaints Skin: no complaints Neurologic: no complaints Exam/Review of Systems Vital Signs Vitals Vital Signs Date Temp Pulse Resp B/P (MAP) Pulse Ox O2 O2 Flow FiO2 Time Delivery Rate 02/19/18 83 15 153/92 100 Mechanical 07:00 (112) Ventilator 02/19/18 98.1 04:00 02/19/18 2.0 01:36 Intake and Output 02/18/18 02/18/18 02/19/18 1414:59 22:59 06:59 IntakeIntake Total 650 ml 300 ml 50 ml OutputOutput Total 575 ml 400 ml 350 ml BalanceBalance 75 ml -100 ml -300 ml Exam Constitutional: alert, well developed Psych: nl mood/affect Head: atraumatic Eyes: nl conjunctiva, nl lids, nl sclera ENMT: nl external ears & nose Neck: non-tender Respiratory: diminished breath sounds (bilaerally ; right > than left) Cardiovascular: nl pulses, other (s1s2) Musculoskeletal: muscle weakness, range of motion Extremities: normal pulses 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: nl speech, other (alert/responsive) Medications Medications Current Medications IV Flush (NS 3 ml) 3 ml PER PROTOCOL IV ; Start 02/07/18 at 16:30 Ondansetron HCl (Zofran Inj) 4 mg Q6H PRN IV NAUSEA AND/OR VOMITING; Start 02/07/18 at 16:30 Acetaminophen (Tylenol Tab) 650 mg Q6H PRN PO PAIN LEVEL 1-3 OR FEVER; Start 02/07/18 at 16:30 Docusate Sodium (Colace) 100 mg Q12H PRN PO CONSTIPATION Last administered on 02/10/18at 20:07; Admin Dose 100 MG; Start 02/07/18 at 16:30 Diltiazem HCl (Cardizem) 60 mg Q8 PO Last administered on 02/19/18at 05:17; Admin Dose 60 MG; Start 02/07/18 at 17:00 Guaifenesin/ Dextromethorphan (Robitussin Dm Liquid Cup) 30 ml Q4H PRN PO COUGH Last administered on 02/18/18at 22:15; Admin Dose 30 ML; Start 02/09/18 at 12:30 Levalbuterol (Xopenex Neb) 1.25 mg Q4H RESP THERAPY PRN HHN wheezing Last administered on 02/14/18at 14:17; Admin Dose 1.25 MG; Start 02/11/18 at 00:00 Hydralazine HCl (Apresoline) 10 mg Q4H PRN IV SBP>170 Last administered on 02/16/18at 00:07; Admin Dose 10 MG; Start 02/11/18 at 10:30 Miscellaneous Information 1 ea NOTE XX ; Start 02/11/18 at 11:00 Glucose (Glutose) 15 gm Q15M PRN PO DECREASED GLUCOSE; Start 02/11/18 at 11:00 Glucose (Glutose) 22.5 gm Q15M PRN PO DECREASED GLUCOSE; Start 02/11/18 at 11:00 Dextrose (D50w Syringe) 25 ml Q15M PRN IV DECREASED GLUCOSE; Start 02/11/18 at 11:00 Dextrose (D50w Syringe) 50 ml Q15M PRN IV DECREASED GLUCOSE; Start 02/11/18 at 11:00 Glucagon (Glucagen) 1 mg Q15M PRN IM DECREASED GLUCOSE; Start 02/11/18 at 11:00 Glucose (Glutose) 15 gm Q15M PRN BUCCAL DECREASED GLUCOSE; Start 02/11/18 at 11:00 Lansoprazole (Prevacid) 30 mg DAILY@06 GTB Last administered on 02/19/18at 05 :17; Admin Dose 30 MG; Start 02/13/18 at 06:00 Cefepime HCl 50 ml @ 100 mls/hr Q24H IVPB Last administered on 02/19/18at 09:40; Admin Dose 100 MLS/HR; Start 02/13/18 at 09:00 Oxycodone/ Acetaminophen (Percocet (5/ 325)) 1 tab Q4H PRN PO MODERATE PAIN LEVEL 4-6 Last administered on 02/18/18at 08:34; Admin Dose 1 TAB; Start 02/13/18 at 01:00 Lorazepam (Ativan) 0.5 mg Q12H PRN GTB restlessness; Start 02/13/18 at 11:00 Vancomycin HCl (Vanco Iv Per Pharmacy) VANCOMYCIN PER PHARMACY PER PROTOCOL XX ; Start 02/14/18 at 08:00 Vancomycin HCl 1.25 gm/Sodium Chloride 250 ml @ 83.333 mls/ hr Q24H IVPB Last administered on 02/18/18at 12:22; Admin Dose 83.333 MLS/HR; Start 02/15/18 at 12:00 Lactulose (Enulose) 20 gm Q6H PRN PO CONSTIPATION Last administered on 02/14/18at 14:33; Admin Dose 20 GM; Start 02/14/18 at 14:00 Insulin Aspart (Novolog Insulin Pen) NOVOLOG *MILD* ALGORITHM WITH MEALS BEDTIME SC Last administered on 02/18/18at 20:55; Admin Dose 1 UNIT; Start 02/15/18 at 11:30 Atenolol (Tenormin) 50 mg BID PO Last administered on 02/19/18at 09:41; Admin Dose 50 MG; Start 02/16/18 at 21:00 Apixaban (Eliquis) 2.5 mg BID PO Last administered on 02/19/18at 09:40; Admin Dose 2.5 MG; Start 02/18/18 at 21:00 Prednisone (Prednisone) 40 mg DAILY PO Last administered on 02/19/18at 09:40; Admin Dose 40 MG; Start 02/19/18 at 09:00 Results Result Diagram: 02/19/1814 02/19/18 0514 Results 24 hrs Laboratory Tests Test 02/18/18 11:35 02/18/18 11:36 02/18/18 17:09 02/18/18 20:53 Bedside Glucose 522 *H 159 224 H 181 Test 02/19/18 05:14 02/19/18 07:52 White Blood 25.0 #H Count Red Blood Count 3.65 L Hemoglobin 11.5 L Hematocrit 34.3 L Mean Corpuscular 94.0 Volume Mean Corpuscular 31.5 Hemoglobin Mean Corpuscular 33.5 Hemoglobin Naz nt Red Cell 13.3 Distribution Width Platelet Count 256 Mean Platelet 10.0 Volume Immature 1.700 H Granulocytes % Neutrophils % Segmented 79 H Neutrophils % (Manual) Band Neutrophils 4 % (Manual) Lymphocytes % Lymphocytes % 6 L (Manual) Reactive 1 H Lymphocytes % (Manual) Monocytes % Monocytes % 10 (Manual) Eosinophils % Basophils % Nucleated Red 0.0 Blood Cells % Immature 0.420 H Granulocytes # Neutrophils # Neutrophils # 20.0 H (Manual) Band Neutrophils 1.0 H # Lymphocytes 1.5 (Manual) Lymphocytes # Reactive 0.2 H Lymphocytes # Monocytes # Monocytes # 2.5 H (Manual) Eosinophils # Basophils # Nucleated Red Blood Cells # Platelet NORMAL Estimate Anisocytosis 1+ Macrocytosis 1+ Sodium Level 135 Potassium Level 4.0 Chloride Level 99 Carbon Dioxide 28 Level Anion Gap 8 Blood Urea 41 H Nitrogen Creatinine 1.09 Est Glomerular Filtrat Rate mL/min Glucose Level 127 Calcium Level 8.8 Phosphorus Level 3.9 Magnesium Level 2.0 Bedside Glucose 115 BRYAN CARLIN Feb 19, 2018 10:23
--- NOTE | 2018-02-19 11:20 | NUR ---
PT note Therapy day number 4 Subjective Current complaint of pain Pain Scale NUMERIC Pain Intensity 3 (0-10) Patient Stated Goal for Pain Relief 0 (0-10) Pain Level Comment chest tube insertion Pre Treatment Vital Signs Stable Yes Transfer Training Start Time 11:20 Supine to Sit Supervised Transfer Sit to Stand Ability Minimum Assist Bed Mobility Sit to Supine Supervised Bed Transfer Ability Minimum Assist Chair Transfer Ability Minimum Assist Additional Mobility Comments min A with FWW Transfer Training End Time 11:45 Total Transfer Training Time 25 min (8-127) Gait Training Start Time 11:45 Gait Assist Levels Stand by Assist Assistive Devices Front Wheel Walker Ambulation Distance 100 feet Additional Gait Comments slow johana, fatigues quickly, but self corrects with decreased UE support Gait Training End Time 12:05 Total Gait Training Treatment Time 20 min (8-127) Static Sitting Balance Good Dynamic Sitting Balance Good Standing Static Balance Fair Dynamic Standing Balance Fair Additional Balance Assessments Comments with UE support Safety Judgement Fair Activity Tolerance Fair Equipment Present IV pump Additional Equipment Present chest tube, on 2L O2, ICU monitoring Post Treatment Pain Intensity 3 0-10 Additional Post Treatment Comment See note Total Treament Time 45 min (8-127) Total Minutes 45 Total Units 3 PT Technical Record Comment S: Pt sleeping in bed, agreeable to PT intervention. Pt cleared for activity per RN O: PT intervention completed, pt returned back to bed following therapy intervention with call light within reach in the care of RN. No reports of pain, dizziness, or shortness of breath with activity but rather "tired" with activity. Vitals stable throughout. Spoke to RN regarding pt response to activity and PT plan of care. A: Patient presents with improved mobility and and improved motivation throughout. Patient receptive to PT instruction and ambulation limited secondary to lines and endurance. Patient ambulates with upright posture, self corrects by decreasing UE support on FWW. Patient has made significant progress compared to initial evaluation and could continue to benefit from skilled inpatient PT to improve balance, endurance, and functional mobility P: Progress endurance, decrease UE support on FWW
--- NOTE | 2018-02-19 11:40 | CONS ---
Date/Time of Note Date/Time of Note DATE: 02/19/18 TIME: 11:40 Assessment/Plan Assessment/Plan Chief Complaint/Hosp Course No acute events overnight noted. Patient is alert feels good denies pain, no fevers vital signs stable WBC 25 H&H 11.5 and 34.3 platelets 256 neutrophils 79 BUN 41 creatinine 1.09 Microbiology: All cultures negative Antimicrobials: Vancomycin cefepime Indwelling: Bar catheter right chest tube Chest x-ray from yesterday revealed mild right apical pneumothorax with chest tube in place Physical examination: Fragile well-developed elderly man who is awake in no distress. Head atraumatic normocephalic. Sclera nonicteric. Neck is supple. Chest rise symmetrical breath sounds with scattered crackles to the right. Heart: S1-S2. Abdomen soft, bowel sounds present. Extremities without cyanosis. Assessment: 1. Bilateral pneumonia 2. Right pneumothorax with significant current cutaneous emphysema status post chest tube placement 3. History of CVA 4. Lung cancer 5. Atrial fibrillation Plan: Patient remains stable and overall improving, continue present care, antibiotics, follow pulmonary and cardiothoracic surgery recommendations, plan to transfer to telemetry when bed available Consultation Date/Type/Reason Admit Date/Time Feb 07, 2018 at 13:54 Initial Consult Date Type of Consult id Requesting Provider: FIDEL GAVIN MD Exam/Review of Systems Vital Signs Vitals Vital Signs Date Temp Pulse Resp B/P (MAP) Pulse Ox O2 O2 Flow FiO2 Time Delivery Rate 02/19/18 84 14 123/67 100 Nasal 2.0 11:00 (85) Cannula 02/19/18 98.2 08:00 Intake and Output 02/18/18 02/18/18 02/19/18 1515:00 23:00 07:00 IntakeIntake Total 650 ml 350 ml OutputOutput Total 570 ml 420 ml 300 ml BalanceBalance 80 ml -70 ml -300 ml Medications Medications Current Medications IV Flush (NS 3 ml) 3 ml PER PROTOCOL IV ; Start 02/07/18 at 16:30 Ondansetron HCl (Zofran Inj) 4 mg Q6H PRN IV NAUSEA AND/OR VOMITING; Start 02/07/18 at 16:30 Acetaminophen (Tylenol Tab) 650 mg Q6H PRN PO PAIN LEVEL 1-3 OR FEVER; Start 02/07/18 at 16:30 Docusate Sodium (Colace) 100 mg Q12H PRN PO CONSTIPATION Last administered on 02/10/18at 20:07; Admin Dose 100 MG; Start 02/07/18 at 16:30 Diltiazem HCl (Cardizem) 60 mg Q8 PO Last administered on 02/19/18at 05:17; Admin Dose 60 MG; Start 02/07/18 at 17:00 Guaifenesin/ Dextromethorphan (Robitussin Dm Liquid Cup) 30 ml Q4H PRN PO COUGH Last administered on 02/18/18at 22:15; Admin Dose 30 ML; Start 02/09/18 at 12:30 Levalbuterol (Xopenex Neb) 1.25 mg Q4H RESP THERAPY PRN HHN wheezing Last admin istered on 02/14/18at 14:17; Admin Dose 1.25 MG; Start 02/11/18 at 00:00 Hydralazine HCl (Apresoline) 10 mg Q4H PRN IV SBP>170 Last administered on 02/16/18at 00:07; Admin Dose 10 MG; Start 02/11/18 at 10:30 Miscellaneous Information 1 ea NOTE XX ; Start 02/11/18 at 11:00 Glucose (Glutose) 15 gm Q15M PRN PO DECREASED GLUCOSE; Start 02/11/18 at 11:00 Glucose (Glutose) 22.5 gm Q15M PRN PO DECREASED GLUCOSE; Start 02/11/18 at 11:00 Dextrose (D50w Syringe) 25 ml Q15M PRN IV DECREASED GLUCOSE; Start 02/11/18 at 11:00 Dextrose (D50w Syringe) 50 ml Q15M PRN IV DECREASED GLUCOSE; Start 02/11/18 at 11:00 Glucagon (Glucagen) 1 mg Q15M PRN IM DECREASED GLUCOSE; Start 02/11/18 at 11:00 Glucose (Glutose) 15 gm Q15M PRN BUCCAL DECREASED GLUCOSE; Start 02/11/18 at 11:00 Lansoprazole (Prevacid) 30 mg DAILY@06 GTB Last administered on 02/19/18at 05:17; Admin Dose 30 MG; Start 02/13/18 at 06:00 Cefepime HCl 50 ml @ 100 mls/hr Q24H IVPB Last administered on 02/19/18at 09:40; Admin Dose 100 MLS/HR; Start 02/13/18 at 09:00 Oxycodone/ Acetaminophen (Percocet (5/ 325)) 1 tab Q4H PRN PO MODERATE PAIN LEVEL 4-6 Last administered on 02/18/18at 08:34; Admin Dose 1 TAB; Start 02/13/18 at 01:00 Lorazepam (Ativan) 0.5 mg Q12H PRN GTB restlessness; Start 02/13/18 at 11:00 Vancomycin HCl (Vanco Iv Per Pharmacy) VANCOMYCIN PER PHARMACY PER PROTOCOL XX ; Start 02/14/18 at 08:00 Vancomycin HCl 1.25 gm/Sodium Chloride 250 ml @ 83.333 mls/ hr Q24H IVPB Last administered on 02/18/18at 12:22; Admin Dose 83.333 MLS/HR; Start 02/15/18 at 12:00 Lactulose (Enulose) 20 gm Q6H PRN PO CONSTIPATION Last administered on 02/14/18at 14:33; Admin Dose 20 GM; Start 02/14/18 at 14:00 Insulin Aspart (Novolog Insulin Pen) NOVOLOG *MILD* ALGORITHM WITH MEALS BEDTIME SC Last administered on 02/18/18at 20:55; Admin Dose 1 UNIT; Start 02/15/18 at 11:30 Atenolol (Tenormin) 50 mg BID PO Last administered on 02/19/18at 09:41; Admin Dose 50 MG; Start 02/16/18 at 21:00 Apixaban (Eliquis) 2.5 mg BID PO Last administered on 02/19/18at 09:40; Admin Dose 2.5 MG; Start 02/18/18 at 21:00 Prednisone (Prednisone) 40 mg DAILY PO Last administered on 02/19/18 09:40; Admin Dose 40 MG; Start 02/19/18 at 09:00 Results Result Diagram: 02/19/18 0514 02/19/18 0514 Results 24 hrs Laboratory Tests Test 02/18/18 17:09 02/18/18 20:53 02/19/18 05:14 02/19/18 07:52 Bedside Glucose 224 H 181 115 White Blood 25.0 #H Count Red Blood Count 3.65 L Hemoglobin 11.5 L Hematocrit 34.3 L Mean Corpuscular 94.0 Volume Mean Corpuscular 31.5 Hemoglobin Mean Corpuscular 33.5 Hemoglobin Naz nt Red Cell 13.3 Distribution Width Platelet Count 256 Mean Platelet 10.0 Volume Immature 1.700 H Granulocytes % Neutrophils % Segmented 79 H Neutrophils % (Manual) Band Neutrophils 4 % (Manual) Lymphocytes % Lymphocytes % 6 L (Manual) Reactive 1 H Lymphocytes % (Manual) Monocytes % Monocytes % 10 (Manual) Eosinophils % Basophils % Nucleated Red 0.0 Blood Cells % Immature 0.420 H Granulocytes # Neutrophils # Neutrophils # 20.0 H (Manual) Band Neutrophils 1.0 H # Lymphocytes 1.5 (Manual) Lymphocytes # Reactive 0.2 H Lymphocytes # Monocytes # Monocytes # 2.5 H (Manual) Eosinophils # Basophils # Nucleated Red Blood Cells # Platelet NORMAL Estimate Anisocytosis 1+ Macrocytosis 1+ Sodium Level 135 Potassium Level 4.0 Chloride Level 99 Carbon Dioxide 28 Level Anion Gap 8 Blood Urea 41 H Nitrogen Creatinine 1.09 Est Glomerular Filtrat Rate mL/min Glucose Level 127 Calcium Level 8.8 Phosphorus Level 3.9 Magnesium Level 2.0 SUZANNE DANIELS NP Feb 19, 2018 11:40
--- NOTE | 2018-02-19 11:50 | PN ---
Date/Time of Note Date/Time of Note DATE: 02/19/18 TIME: 11:47 Assessment/Plan VTE Prophylaxis Risk score (from Ns)>0 risk: 7 SCD applied (from Ns): No SCD contraindicated: low risk/ambulating Pharmacological prophylaxis: apixaban Lines/Catheters IV C[facility]ter Type (from [facility]): Peripheral IV Urinary Cath still in place: Yes Reason Cath still needed: urinary retention Assessment/Plan Hospital Course ASSESSMENT AND PLAN: This is a 77-year-old male who presented with: # Respiratory failure status post intubation on 1211 this post extubation #. Shortness of breath likely secondary to congestive heart failure/chronic obstructive pulmonary disease exacerbation. # right-sided pneumothorax status post thoracentesis, now with chest tube , subcutanoeus emphysema, chest tube in place # Large left pleural effusion, status post thoracentesis in the past. Status post thoracentesis on 1217 # History of chronic obstructive pulmonary disease. #. Atrial fibrillation with rapid ventricular response.controlled #. Hypertension. # EKG changes of atrial fibrillation with ST segment changes in the inferior leads. # History of lung cancer status post chemo and radiation.? NEW Lung metastases # History of coronary artery disease. #. Pleural effusion, status post thoracentesis. # Elevated BNP secondary to congestive heart failure. #. Hyponatremia. # History of peripheral vascular disease. # LEUKOCYTOSIS secondary to steroids # acute on chronic renal failure likely due to prerenal/ATN Overdiuresis, and uptrending continue to monitor urine monitor creatinine, cR 1.8 > trending down> resolved #Mild hyperkalemia #Stream puffiness around the right eye due to extensive subcutaneous emphysema, and on the soft tissue CT> resolved Plan -SP post thoracentesis today -Continue to monitor -CW Eliquis -Taper prednisone -wbc to 25 on vancomycin and cefepime follow-up with ID recs - ? VATS if patient has subcutaneous emphysema per Dr. Joseph Avendano - sukumar w diltazem and atenolol - f/u cardiac and pul recs -- PT eval transfer To telemetry Subjective 24 Hr Interval Summary Free Text/Dictation CT chest tube still put out 200 Patient is doing better the right eye edema is resolved Exam/Review of Systems Vital Signs Vitals Vital Signs Date Temp Pulse Resp B/P (MAP) Pulse Ox O2 O2 Flow FiO2 Time Delivery Rate 02/19/18 84 14 123/67 100 Nasal 2.0 11:00 (85) Cannula 02/19/18 98.2 08:00 Intake and Output 02/18/18 02/18/18 02/19/18 1515:00 23:00 07:00 IntakeIntake Total 650 ml 350 ml OutputOutput Total 570 ml 420 ml 300 ml BalanceBalance 80 ml -70 ml -300 ml Exam Respiratory: diminished breath sounds. LEFT Base Cardiovascular: regular rate and rhythm Gastrointestinal: soft, bowel sounds (+) Extremities: edema (tr) Skin: other (sub emphysema+) chEST Tube in place Medications Medications Current Medications IV Flush (NS 3 ml) 3 ml PER PROTOCOL IV ; Start 02/07/18 at 16:30 Ondansetron HCl (Zofran Inj) 4 mg Q6H PRN IV NAUSEA AND/OR VOMITING; Start 02/07/18 at 16:30 Acetaminophen (Tylenol Tab) 650 mg Q6H PRN PO PAIN LEVEL 1-3 OR FEVER; Start 02/07/18 at 16:30 Docusate Sodium (Colace) 100 mg Q12H PRN PO CONSTIPATION Last administered on 02/10/18at 20:07; Admin Dose 100 MG; Start 02/07/18 at 16:30 Diltiazem HCl (Cardizem) 60 mg Q8 PO Last administered on 02/19/18at 05:17; Admin Dose 60 MG; Start 02/07/18 at 17:00 Guaifenesin/ Dextromethorphan (Robitussin Dm Liquid Cup) 30 ml Q4H PRN PO COUGH Last administered on 02/18/18at 22:15; Admin Dose 30 ML; Start 02/09/18 at 12:30 Levalbuterol (Xopenex Neb) 1.25 mg Q4H RESP THERAPY PRN HHN wheezing Last administered on 02/14/18at 14:17; Admin Dose 1.25 MG; Start 02/11/18 at 00:00 Hydralazine HCl (Apresoline) 10 mg Q4H PRN IV SBP>170 Last administered on 02/16/18at 00:07; Admin Dose 10 MG; Start 02/11/18 at 10:30 Miscellaneous Information 1 ea NOTE XX ; Start 02/11/18 at 11:00 Glucose (Glutose) 15 gm Q15M PRN PO DECREASED GLUCOSE; Start 02/11/18 at 11:00 Glucose (Glutose) 22.5 gm Q15M PRN PO DECREASED GLUCOSE; Start 02/11/18 at 11:00 Dextrose (D50w Syringe) 25 ml Q15M PRN IV DECREASED GLUCOSE; Start 02/11/18 at 11:00 Dextrose (D50w Syringe) 50 ml Q15M PRN IV DECREASED GLUCOSE; Start 02/11/18 at 11:00 Glucagon (Glucagen) 1 mg Q15M PRN IM DECREASED GLUCOSE; Start 02/11/18 at 11:00 Glucose (Glutose) 15 gm Q15M PRN BUCCAL DECREASED GLUCOSE; Start 02/11/18 at 11:00 Lansoprazole (Prevacid) 30 mg DAILY@06 GTB Last administered on 02/19/18at 05:17; Admin Dose 30 MG; Start 02/13/18 at 06:00 Cefepime HCl 50 ml @ 100 mls/hr Q24H IVPB Last administered on 02/19/18at 09:40; Admin Dose 100 MLS/HR; Start 02/13/18 at 09:00 Oxycodone/ Acetaminophen (Percocet (5/ 325)) 1 tab Q4H PRN PO MODERATE PAIN LEVEL 4-6 Last administered on 02/18/18at 08:34; Admin Dose 1 TAB; Start 02/13/18 at 01:00 Lorazepam (Ativan) 0.5 mg Q12H PRN GTB restlessness; Start 02/13/18 at 11:00 Vancomycin HCl (Vanco Iv Per Pharmacy) VANCOMYCIN PER PHARMACY PER PROTOCOL XX ; Start 02/14/18 at 08:00 Vancomycin HCl 1.25 gm/Sodium Chloride 250 ml @ 83.333 mls/ hr Q24H IVPB Last administered on 02/18/18at 12:22; Admin Dose 83.333 MLS/HR; Start 02/15/18 at 12:00 Lactulose (Enulose) 20 gm Q6H PRN PO CONSTIPATION Last administered on 02/14/18at 14:33; Admin Dose 20 GM; Start 02/14/18 at 14:00 Insulin Aspart (Novolog Insulin Pen) NOVOLOG *MILD* ALGORITHM WITH MEALS BEDTIME SC Last administered on 02/18/18at 20:55; Admin Dose 1 UNIT; Start 02/15/18 at 11:30 Atenolol (Tenormin) 50 mg BID PO Last administered on 02/19/18at 09:41; Admin Dose 50 MG; Start 02/16/18 at 21:00 Apixaban (Eliquis) 2.5 mg BID PO Last administered on 02/19/18at 09:40; Admin Dose 2.5 MG; Start 02/18/18 at 21:00 Prednisone (Prednisone) 40 mg DAILY PO Last administered on 02/19/18at 09:40; Admin Dose 40 MG; Start 02/19/18 at 09:00 Results Result Diagram: 02/19/18 0514 02/19/18 0514 Results 24 hrs Laboratory Tests Test 02/18/18 17:09 02/18/18 20:53 02/19/18 05:14 02/19/18 07:52 Bedside Glucose 224 H 181 115 White Blood 25.0 #H Count Red Blood Count 3.65 L Hemoglobin 11.5 L Hematocrit 34.3 L Mean Corpuscular 94.0 Volume Mean Corpuscular 31.5 Hemoglobin Mean Corpuscular 33.5 Hemoglobin Naz nt Red Cell 13.3 Distribution Width Platelet Count 256 Mean Platelet 10.0 Volume Immature 1.700 H Granulocytes % Neutrophils % Segmented 79 H Neutrophils % (Manual) Band Neutrophils 4 % (Manual) Lymphocytes % Lymphocytes % 6 L (Manual) Reactive 1 H Lymphocytes % (Manual) Monocytes % Monocytes % 10 (Manual) Eosinophils % Basophils % Nucleated Red 0.0 Blood Cells % Immature 0.420 H Granulocytes # Neutrophils # Neutrophils # 20.0 H (Manual) Band Neutrophils 1.0 H # Lymphocytes 1.5 (Manual) Lymphocytes # Reactive 0.2 H Lymphocytes # Monocytes # Monocytes # 2.5 H (Manual) Eosinophils # Basophils # Nucleated Red Blood Cells # Platelet NORMAL Estimate Anisocytosis 1+ Macrocytosis 1+ Sodium Level 135 Potassium Level 4.0 Chloride Level 99 Carbon Dioxide 28 Level Anion Gap 8 Blood Urea 41 H Nitrogen Creatinine 1.09 Est Glomerular Filtrat Rate mL/min Glucose Level 127 Calcium Level 8.8 Phosphorus Level 3.9 Magnesium Level 2.0 FIDEL GAVIN MD Feb 19, 2018 11:50
--- NOTE | 2018-02-19 12:02 | CONS ---
Date/Time of Note Date/Time of Note DATE: 02/19/18 TIME: 12:00 Assessment/Plan Assessment/Plan Additional Assessment/Plan 1.AF-rate controlled - better now - pt ambulating with PT. 2.CHF-diastolic acute on chronic - euvolemic by exam, chronic. 3.HTN-reasonable control - will adjust Rx as needed. 4.Pleural effusion s/p thoracentesis c/b PTX now s/p CT. Now s/p thoracentesis on Left - CT in, surgical team follows. 5. Renal failure - god urine output - avoid nephrotomic meds. 6. Leukocytosis - rx with anti-Bx. 7. anemia 8. SQ emphysema extensive-tracking up into face and around eye, continues to improve Consultation Date/Type/Reason Admit Date/Time Feb 07, 2018 at 13:54 Initial Consult Date Requesting Provider: FIDEL GAVIN MD 24 HR Interval Summary Free Text/Dictation Pt better overall- aret controlled - in good spirits - ambulating with PT., ROS: No fever, no chills, no nausea, no vomiting, no diarrhea/constipation No recent weight changes No chest pain, no PND, no orthopnea - improved SOB No dizziness, blurred vision No thirst, no heat or cold intolerance Exam/Review of Systems Vital Signs Vitals Vital Signs Date Temp Pulse Resp B/P (MAP) Pulse Ox O2 O2 Flow FiO2 Time Delivery Rate 02/19/18 84 14 123/67 100 Nasal 2.0 11:00 (85) Cannula 02/19/18 98.2 08:00 Intake and Output 02/18/18 02/18/18 02/19/18 1515:00 23:00 07:00 IntakeIntake Total 650 ml 350 ml OutputOutput Total 570 ml 420 ml 300 ml BalanceBalance 80 ml -70 ml -300 ml Exam General: WN/WD/NAD, AOx 3 HEENT: Unicetric/atraumatic/EOMI (follow commands) NECK: JVD elevated, no thyromegaly Lymph: no lymphadenopathy HEART: regular with no S3, II/ systolic murmur at apex LUNGS: Coarse sounds, CT in place ABD: soft, NT, ND, +BS : Intact Neuro: non focal SKIN: chronic changes EXT: trace edema Medications Medications Current Medications IV Flush (NS 3 ml) 3 ml PER PROTOCOL IV ; Start 02/07/18 at 16:30 Ondansetron HCl (Zofran Inj) 4 mg Q6H PRN IV NAUSEA AND/OR VOMITING; Start 02/07/18 at 16:30 Acetaminophen (Tylenol Tab) 650 mg Q6H PRN PO PAIN LEVEL 1-3 OR FEVER; Start 02/07/18 at 16:30 Docusate Sodium (Colace) 100 mg Q12H PRN PO CONSTIPATION Last administered on 02/10/18at 20:07; Admin Dose 100 MG; Start 02/07/18 at 16:30 Diltiazem HCl (Cardizem) 60 mg Q8 PO Last administered on 02/19/18at 05:17; Admin Dose 60 MG; Start 02/07/18 at 17:00 Guaifenesin/ Dextromethorphan (Robitussin Dm Liquid Cup) 30 ml Q4H PRN PO COUGH Last administered on 02/18/18at 22:15; Admin Dose 30 ML; Start 02/09/18 at 12:30 Levalbuterol (Xopenex Neb) 1.25 mg Q4H RESP THERAPY PRN HHN wheezing Last administered on 02/14/18at 14:17; Admin Dose 1.25 MG; Start 02/11/18 at 00:00 Hydralazine HCl (Apresoline) 10 mg Q4H PRN IV SBP>170 Last administered on 02/16/18at 00:07; Admin Dose 10 MG; Start 02/11/18 at 10:30 Miscellaneous Information 1 ea NOTE XX ; Start 02/11/18 at 11:00 Glucose (Glutose) 15 gm Q15M PRN PO DECREASED GLUCOSE; Start 02/11/18 at 11:00 Glucose (Glutose) 22.5 gm Q15M PRN PO DECREASED GLUCOSE; Start 02/11/18 at 11:00 Dextrose (D50w Syringe) 25 ml Q15M PRN IV DECREASED GLUCOSE; Start 02/11/18 at 11:00 Dextrose (D50w Syringe) 50 ml Q15M PRN IV DECREASED GLUCOSE; Start 02/11/18 at 11:00 Glucagon (Glucagen) 1 mg Q15M PRN IM DECREASED GLUCOSE; Start 02/11/18 at 11:00 Glucose (Glutose) 15 gm Q15M PRN BUCCAL DECREASED GLUCOSE; Start 02/11/18 at 11:00 Lansoprazole (Prevacid) 30 mg DAILY@06 GTB Last administered on 02/19/18at 05:17; Admin Dose 30 MG; Start 02/13/18 at 06:00 Cefepime HCl 50 ml @ 100 mls/hr Q24H IVPB Last administered on 02/19/18at 09:40; Admin Dose 100 MLS/HR; Start 02/13/18 at 09:00 Oxycodone/ Acetaminophen (Percocet (5/ 325)) 1 tab Q4H PRN PO MODERATE PAIN LEVEL 4-6 Last administered on 02/18/18at 08:34; Admin Dose 1 TAB; Start 02/13/18 at 01:00 Lorazepam (Ativan) 0.5 mg Q12H PRN GTB restlessness; Start 02/13/18 at 11:00 Vancomycin HCl (Vanco Iv Per Pharmacy) VANCOMYCIN PER PHARMACY PER PROTOCOL XX ; Start 02/14/18 at 08:00 Vancomycin HCl 1.25 gm/Sodium Chloride 250 ml @ 83.333 mls/ hr Q24H IVPB Last administered on 02/18/18at 12:22; Admin Dose 83.333 MLS/HR; Start 02/15/18 at 12:00 Lactulose (Enulose) 20 gm Q6H PRN PO CONSTIPATION Last administered on 02/14/18at 14:33; Admin Dose 20 GM; Start 02/14/18 at 14:00 Insulin Aspart (Novolog Insulin Pen) NOVOLOG *MILD* ALGORITHM WITH MEALS BEDTIME SC Last administered on 02/18/18at 20:55; Admin Dose 1 UNIT; Start 02/15/18 at 11:30 Atenolol (Tenormin) 50 mg BID PO Last administered on 02/19/18at 09:41; Admin Dose 50 MG; Start 02/16/18 at 21:00 Apixaban (Eliquis) 2.5 mg BID PO Last administered on 02/19/18at 09:40; Admin Dose 2.5 MG; Start 02/18/18 at 21:00 Prednisone (Prednisone) 30 mg DAILY PO ; Start 02/20/18 at 09:00 Results Result Diagram: 02/19/18 0514 02/19/18 0514 Results 24 hrs Laboratory Tests Test 02/18/18 17:09 02/18/18 20:53 02/19/18 05:14 02/19/18 07:52 Bedside Glucose 224 H 181 115 White Blood 25.0 #H Count Red Blood Count 3.65 L Hemoglobin 11.5 L Hematocrit 34.3 L Mean Corpuscular 94.0 Volume Mean Corpuscular 31.5 Hemoglobin Mean Corpuscular 33.5 Hemoglobin Naz nt Red Cell 13.3 Distribution Width Platelet Count 256 Mean Platelet 10.0 Volume Immature 1.700 H Granulocytes % Neutrophils % Segmented 79 H Neutrophils % (Manual) Band Neutrophils 4 % (Manual) Lymphocytes % Lymphocytes % 6 L (Manual) Reactive 1 H Lymphocytes % (Manual) Monocytes % Monocytes % 10 (Manual) Eosinophils % Basophils % Nucleated Red 0.0 Blood Cells % Immature 0.420 H Granulocytes # Neutrophils # Neutrophils # 20.0 H (Manual) Band Neutrophils 1.0 H # Lymphocytes 1.5 (Manual) Lymphocytes # Reactive 0.2 H Lymphocytes # Monocytes # Monocytes # 2.5 H (Manual) Eosinophils # Basophils # Nucleated Red Blood Cells # Platelet NORMAL Estimate Anisocytosis 1+ Macrocytosis 1+ Sodium Level 135 Potassium Level 4.0 Chloride Level 99 Carbon Dioxide 28 Level Anion Gap 8 Blood Urea 41 H Nitrogen Creatinine 1.09 Est Glomerular Filtrat Rate mL/min Glucose Level 127 Calcium Level 8.8 Phosphorus Level 3.9 Magnesium Level 2.0 EMILY SANTAMARIA MD Feb 19, 2018 12:02
--- NOTE | 2018-02-19 12:27 | PN ---
Date/Time of Note Date/Time of Note DATE: 02/19/18 TIME: 12:26 Assessment/Plan Lines/Catheters IV Catheter Type (from Nrs): Peripheral IV Bar in Place (from Nrsg): Yes Assessment/Plan Assessment/Plan Right-sided pneumothorax status post chest tube placement. Pt developed SQ emphysema after clamping the tube CT with 300cc output Right Chest PTX stable RECOMMENDATIONS: We will clamp chest tube Monitor the chest x-ray may need VATS if develops SQ Emphysema with clamping the tube. Discuss with the referring physicians. Subjective 24 Hr Interval Summary Constitutional: improved Exam/Review of Systems Vital Signs Vitals Vital Signs Date Temp Pulse Resp B/P (MAP) Pulse Ox O2 O2 Flow FiO2 Time Delivery Rate 02/19/18 84 14 123/67 100 Nasal 2.0 11:00 (85) Cannula 02/19/18 98.2 08:00 Intake and Output 02/18/18 02/18/18 02/19/18 1515:00 23:00 07:00 IntakeIntake Total 650 ml 350 ml OutputOutput Total 570 ml 420 ml 300 ml BalanceBalance 80 ml -70 ml -300 ml Exam Eyes: nl conjunctiva, EOMI, nl lids, nl sclera ENMT: nl external ears & nose, nl lips & teeth, nl nasal mucosa & septum, mucosa pink and moist Neck: supple, non-tender Respiratory: clear to auscultation, normal air movement Cardiovascular: regular rate and rhythm, nl pulses Gastrointestinal: soft, nl liver, spleen, non-tender Results Result Diagram: 02/19/18 0514 02/19/18 0514 SHIRA ORTIZ MD Feb 19, 2018 12:27
--- NOTE | 2018-02-19 12:53 | NUR ---
Dysphagia f/u. Saw patient with lunch tray. Tolerating current diet, WFL. Trialed and tolerated regular solids without s/s aspiration. Throat clearing x2 with mixed consistency (soup). Able to self feed while sitting EOB. Educated patient regarding diet upgrade and POC. Verbalized agreement and comprehension. Recommendations: Reg solids/ thin liquids Meds whole with thin or puree Maintain asp. precautions/ oral care guidelines ST to f/u
[2018-02-19] MEDS: VANCOMYCIN 1.25 GM in SOD CHLORIDE 0.9% 250 ML IVPB SCH (14:16)
--- NOTE | 2018-02-19 14:36 | NUR ---
SS NOTE: LOS PT ADMITTED DUE TO COPD, CHF. SW MET WITH PT AT BEDSIDE. PT ALERT/ORIENTED X4. REPORTED LIVING AT HOME, ALONE, AT THE ADDRESS LISTED ON THE FACE SHEET. REPORTED HAVING NO FAMILY. STATED THAT HE WAS NEVER AND DOES NOT HAVE CHILDREN. PER PT, HE HAS A SISTER, GRACIE RUSH, WHO PT THINKS LIVES IN [place] BUT HAS NOT SPOKEN TO HER IN MANY YRS. PT REPORTED THAT HIS FRIEND, YULISA MORAN IS HIS ONLY EMERGENCY CONTACT AND DECISION MAKER IN CASE HE IS NOT ABLE TO COMMUNICATE. SW INQUIRED IF PT HAS AHCD. PT STATED HE DOES NOT HAVE AHCD BUT YULISA IS HIS ONLY CONTACT. SW INQUIRES ABOUT PT'S LIVING SITUATION. 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 PT STATED THAT AFTER HIS D/C HE PLANS TO GO TO [facility] FOR FEW WEEKS TO MONTHS UNTIL HE IS STRONGER AND ABLE TO RETURN BACK HOME. STATED THAT HE HAS BEEN AT [facility] BEFORE AND HE LIKES IT THERE. PT ALSO REPORTED THAT HE HAD A HOME HEALTH PATROL OFFICER HIM AT HOME TO CHECK ON HIS BP AND MEDS. PT UNABLE TO REMEMBER THE NAME OF THE AGENCY. DISCUSSED WITH RN, JJ. PT WAS ON [facility] FOR COPD. SW PROVIDED PT WITH AHCD INFO AND FORM AND ENCOURAGED HIM TO COMPLETE THE FORM WITH HIS WISHES AND DISCUSS HIS WISHES WITH HIS HIS FRIEND AND PCP. NO OTHER ISSUES PRESENT AT THIS TIME. SW WILL CONTINUE TO REMAIN AVAILABLE NEEDED. Addendum: 02/19/18 at 1454 by CHELLY ROSE LCSW Amended: Links added.
[2018-02-20] VITALS (10 sets, daily range): BP systolic 132–154; BP diastolic 59–75; PULSE 73–89; RESP 18–19
[2018-02-20] MEDS: LANSOPRAZOLE 30 MG CAP GTB SCH (05:10)
[2018-02-20] MEDS: DILTIAZEM 60 MG TAB PO SCH ×3 (05:10→22:19)
--- NOTE | 2018-02-20 06:54 | NUR ---
SHIFT NOTES NO ACUTE DISTRESS NOTED THIS SHIFT. ALL PT NEEDS ATTENDED TO. CHEST TUBE PATENT AND DRAINING. 200CC OUT FROM CHEST TUBE THIS SHIFT. WILL CONTINUE PLAN OF CARE.
[2018-02-20] MEDS: INSULIN ASPART [NOVOLOG] 3 ML PEN SC SCH ×4 (07:30→20:05)
[2018-02-20] MEDS: CEFEPIME 1GM/50 ML (PMX) 50 ML IVPB SCH (09:03)
[2018-02-20] MEDS: predniSONE 10 MG TAB PO SCH (09:05)
[2018-02-20] MEDS: APIXABAN 5 MG TABLET PO SCH ×2 (09:05→20:02)
[2018-02-20] MEDS: ATENOLOL 50 MG TAB PO SCH ×2 (09:05→20:02)
--- NOTE | 2018-02-20 09:21 | CONS ---
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 Assessment and recommendations; 1. Patient admitted with shortness of breath due to bilateral pleural effusions with pleural fluid cytology no positive for squamous cell carcinoma. 2. Chronic atrial fibrillation. 3. Possibly left lower lobe postobstructive pneumonia. Currently on appropriate antimicrobial regimen. 4. Marked interval resolution of fascial sub-cutaneous emphysema with persistent right chest wall subcutaneous emphysema with interval improvement. Continue current supportive care. Further recommendations per oncologist. Prognosis appears poor. Consultation Date/Type/Reason Admit Date/Time Feb 07, 2018 at 13:54 Initial Consult Date Type of Consult Pulmonary/critical care Requesting Provider: FIDEL GAVIN MD 24 HR Interval Summary Free Text/Dictation Patient's condition is stable. Has been transferred out of ICU to medical floor. Denies any shortness of breath or chest pain. General exam; elderly male, awake alert, currently no distress. Exam/Review of Systems Vital Signs Vitals Vital Signs Date Temp Pulse Resp B/P (MAP) Pulse Ox O2 O2 Flow FiO2 Time Delivery Rate 02/20/18 77 08:11 02/20/18 97.6 18 144/65 100 Nasal 07:44 (91) Cannula 02/19/18 2.0 21:00 Intake and Output 02/19/18 02/19/18 02/20/18 1515:00 23:00 07:00 IntakeIntake Total 530 ml 300 ml 200 ml OutputOutput Total 430 ml 395 ml 700 ml BalanceBalance 100 ml -95 ml -500 ml Exam H EENT exam; supple neck, no lymphadenopathy. Patient has fair dentition. No neck masses. There is no facial cell cutaneous emphysema. Chest exam; diminished breath sounds bilaterally. Right side chest tube in place. There is no air leak in the Pleur-evac chamber. Diminished breath sounds left lower lobe. S1-S2 audible, no murmurs. Irregular rhythm. Abdomen exam; soft, no organomegaly. Nontender. Bowel sounds audible. Extremity exam; no edema clubbing. Patient does have patchy ecchymosis. ALAN DICKERSON Feb 20, 2018 09:21
--- NOTE | 2018-02-20 10:45 | NUR ---
PT NOTE Therapy day number 5 Subjective Current complaint of pain Pain Scale NUMERIC Pain Intensity 7 (0-10) Patient Stated Goal for Pain Relief 0 (0-10) Pain Level Comment chest tube insertion Exercise Assessment Label Bilat Lower Extremity Exercise Type Active ROM Additional Exercise Comments EOB: AP's, knee flex/ext, marches Exercise Start Time 10:45 Exercise End Time 10:59 Total Exercise Time 14 min (8-127) Transfer Training Start Time 11:00 Supine to Sit Supervised Transfer Sit to Stand Ability Contact Guard Assist Bed Mobility Sit to Supine Supervised Additional Mobility Comments Transfers w/AD Transfer Training End Time 11:15 Total Transfer Training Time 15 min (8-127) Gait Training Start Time 11:15 Gait Assist Levels Stand by Assist Assistive Devices Front Wheel Walker Ambulation Distance 120 feet Additional Gait Comments slow johana, fatigues quickly, but self corrects with decreased UE support Gait Training End Time 11:29 Total Gait Training Treatment Time 14 min (8-127) Static Sitting Balance Good Dynamic Sitting Balance Good Standing Static Balance Fair Dynamic Standing Balance Fair Additional Balance Assessments Comments FWW Safety Judgement Fair Activity Tolerance Fair Equipment Present A pump Drains Bar Catheter IV pump Additional Equipment Present chest tube, on 2L O2, Post Treatment Pain Intensity 7 0-10 Quality Indicators SOB Upon Exertion Dizziness Variance Documentation SEE BELOW AND PT NOTE Total Treament Time 43 min (8-127) Total Minutes 43 Total Units 3 PT Technical Record Comment PT NOTE S: Pt stated, "I am just having pain here where my chest tube is. Good thing you are here because I want to go for a walk." Agreeable for PT and cleared per СЕРГЕЙ Kang: Received pt in semi-fowlers, alert w/family present in room. Bed mobility w/HOB elevated using BR w/VCs for hand placement and sequence Supervised. Applied gait belt at EOB. Pt performed EOB AROM thera ex, see above for exercises, 2 sets x 10 per exercise. STS to FWW CGA. Gait training performed 120' SBA 2PA for lines. Noted slow johana, NBOS, flexed posture, (B) shoulder tension, and min UE support on AD. Pt required VCs/TCs to correct posture, maintain distance from AD, increase MILLY, relax shoulders, and decrease UE support on AD. Pt verbalized and demonstrated w/good return w/self correcting at times. Pt required 4 standing rest breaks due to fatigue and mild SOB and dizziness during ambulation. Therefore pt was educated w/breathing techniques. Assisted pt back to room BTB w/VCs for hand placement and repositioning. Left pt in comfort position, call light/phone within reach, bed alarmed, and all needs met. СЕРГЕЙ Plata informed of pt's status. A: Fair tolerance to tx. Transfers and gait distance improved compared to previous tx. O2 was supplemented throughout tx. P: Continue POC and progress as tolerated.
[2018-02-20] MEDS: VANCOMYCIN 1.25 GM in SOD CHLORIDE 0.9% 250 ML IVPB SCH (12:07)
--- NOTE | 2018-02-20 14:46 | PN ---
Date/Time of Note Date/Time of Note DATE: 02/20/18 TIME: 14:43 Assessment/Plan VTE Prophylaxis Risk score (from Ns)>0 risk: 7 SCD applied (from Ns): Yes Pharmacological prophylaxis: NA/contraindicated Pharm contraindication: low risk/ambulating Lines/Catheters [facility] Type (from [facility]): Peripheral IV Urinary Cath still in place: Yes Reason Cath still needed: urinary retention Assessment/Plan Hospital Course ASSESSMENT AND PLAN: This is a 77-year-old male who presented with: # Respiratory failure status post intubation on 1211 this post extubation #. Shortness of breath likely secondary to congestive heart failure/chronic obstructive pulmonary disease exacerbation. # right-sided pneumothorax status post thoracentesis, now with chest tube , subcutanoeus emphysema, chest tube in place # Large left pleural effusion, status post thoracentesis in the past. Status post thoracentesis on 1217 # History of chronic obstructive pulmonary disease. #. Atrial fibrillation with rapid ventricular response.controlled #. Hypertension. # EKG changes of atrial fibrillation with ST segment changes in the inferior leads. # History of lung cancer status post chemo and radiation.? NEW Lung metastases # History of coronary artery disease. #. Pleural effusion, status post thoracentesis. # Elevated BNP secondary to congestive heart failure. #. Hyponatremia. # History of peripheral vascular disease. # LEUKOCYTOSIS secondary to steroids # acute on chronic renal failure likely due to prerenal/ATN Overdiuresis, and uptrending continue to monitor urine monitor creatinine, cR 1.8 > trending down> resolved #Mild hyperkalemia #extemepuffiness around the right eye due to extensive subcutaneous emphysema, and on the soft tissue CT> resolved Plan --Talked To Dr. Joseph Avendano who will talk to clamp the chest tube today and then decide about surgery vs removing -CW Eliquis -Taper prednisone -wbc to 25>22 on vancomycin and cefepime follow-up with ID recs - ? VATS if patient has subcutaneous emphysema per Dr. Joseph Avendano - c w diltazem and atenolol - f/u cardiac and pul recs -- PT eval Subjective 24 Hr Interval Summary Free Text/Dictation he feels okay, tube is still waterseal Exam/Review of Systems Vital Signs Vitals Vital Signs Date Temp Pulse Resp B/P (MAP) Pulse Ox O2 O2 Flow FiO2 Time Delivery Rate 02/20/18 79 12:33 02/20/18 97.5 18 132/59 100 Nasal 11:55 (83) Cannula 02/19/18 2.0 21:00 Intake and Output 02/19/18 02/19/18 02/20/18 1515:00 23:00 07:00 IntakeIntake Total 530 ml 300 ml 200 ml OutputOutput Total 430 ml 395 ml 700 ml BalanceBalance 100 ml -95 ml -500 ml Exam Respiratory: diminished breath sounds. LEFT Base Cardiovascular: regular rate and rhythm Gastrointestinal: soft, bowel sounds (+) Extremities: edema (tr) Skin: other (sub emphysema+) chEST Tube in place FIDEL GAVIN MD Feb 20, 2018 14:46
--- NOTE | 2018-02-20 16:47 | CONS ---
Date/Time of Note Date/Time of Note DATE: 02/20/18 TIME: 16:43 Assessment/Plan Assessment/Plan Chief Complaint/Hosp Course Patient is alert and feels good looks comfortable no fevers WBC 22.5 H&H 10.7 and 31.5 platelets 233 neutrophils 82.2 BUN 38 creatinine 1.07 Chest x-ray this morning revealed stable cardiomegaly with a large left pleural effusion and/or consolidation right chest tube in place no evidence of pneumothorax extensive right chest wall and neck soft tissue subcutaneous emphysema Microbiology: All cultures negative Antimicrobials: Vancomycin cefepime Indwelling: Bar catheter, right chest tube Physical examination: Fragile well-developed elderly man who is awake in no distress. Head atraumatic normocephalic. Sclera nonicteric. Neck is supple. Chest rise symmetrical breath sounds with scattered crackles to the right. Heart: S1-S2. Abdomen soft, bowel sounds present. Extremities without cyanosis. Assessment: 1. Persistent leukocytosis secondary to #2 and large left pleural effusion 2. Bilateral pneumonia 3. Right pneumothorax with significant current cutaneous emphysema status post chest tube placement. 4. History of CVA 5. History of lung cancer 6. Atrial fibrillation Plan: Clinically unchanged, continue present care, antibiotics, pulmonary, oncology and cardiothoracic surgery recommendations Consultation Date/Type/Reason Admit Date/Time Feb 07, 2018 at 13:54 Initial Consult Date Type of Consult id Requesting Provider: FIDEL GAVIN MD Exam/Review of Systems Vital Signs Vitals Vital Signs Date Temp Pulse Resp B/P (MAP) Pulse Ox O2 O2 Flow FiO2 Time Delivery Rate 02/20/18 89 16:08 02/20/18 97.1 18 143/67 99 Nasal 15:00 (92) Cannula 02/19/18 2.0 21:00 Intake and Output 02/19/18 02/19/18 02/20/18 1515:00 23:00 07:00 IntakeIntake Total 530 ml 300 ml 200 ml OutputOutput Total 430 ml 395 ml 700 ml BalanceBalance 100 ml -95 ml -500 ml SUZANNE DANIELS NP Feb 20, 2018 16:47
--- NOTE | 2018-02-20 18:17 | PN ---
Date/Time of Note Date/Time of Note DATE: 02/20/18 TIME: 18:16 Assessment/Plan Lines/Catheters IV Catheter Type (from Nrsg): Peripheral IV Bar in Place (from Nrsg): Yes Assessment/Plan Assessment/Plan Right-sided pneumothorax status post chest tube placement. Pt developed SQ emphysema after clamping the tube CT with 300cc output Right Chest PTX stable RECOMMENDATIONS: We will clamp chest tube Monitor the chest x-ray may need VATS if develops SQ Emphysema with clamping the tube. Discuss with the referring physicians. Subjective 24 Hr Interval Summary Constitutional: improved Pain Control: mild Exam/Review of Systems Vital Signs Vitals Vital Signs Date Temp Pulse Resp B/P (MAP) Pulse Ox O2 O2 Flow FiO2 Time Delivery Rate 02/20/18 89 16:08 02/20/18 97.1 18 143/67 99 Nasal 15:00 (92) Cannula 02/19/18 2.0 21:00 Intake and Output 02/19/18 02/19/18 02/20/18 1515:00 23:00 07:00 IntakeIntake Total 530 ml 300 ml 200 ml OutputOutput Total 430 ml 395 ml 700 ml BalanceBalance 100 ml -95 ml -500 ml Exam Eyes: nl conjunctiva, EOMI, nl lids, nl sclera ENMT: nl external ears & nose, nl lips & teeth, nl nasal mucosa & septum, mucosa pink and moist Neck: supple, non-tender Respiratory: clear to auscultation, normal air movement Cardiovascular: regular rate and rhythm, nl pulses Gastrointestinal: soft, nl liver, spleen, non-tender Results Result Diagram: 02/20/18 0517 02/20/18 0517 SHIRA ORTIZ MD Feb 20, 2018 18:17
--- NOTE | 2018-02-20 19:40 | NUR ---
RN Shift report. Patient remain stable. Patient v/S wNL. On chest tube (400cc out for day shift). Patient had PT today was able to ambulate. Dr. Olvera called to clamped the chest tube. Notify him if pt develops puffiness of chest, neck and have SOB. Endorsed to [facility]fer plan of care.
[2018-02-21] VITALS (12 sets, daily range): BP systolic 136–163; BP diastolic 61–70; PULSE 69–92; RESP 18–20
[2018-02-21] MEDS: LANSOPRAZOLE 30 MG CAP GTB SCH (06:15)
[2018-02-21] MEDS: DILTIAZEM 60 MG TAB PO SCH ×3 (06:16→20:30)
--- NOTE | 2018-02-21 07:07 | NUR ---
EOSS Patient stable, chest tube clamped, vital signs stable. all needs met. report will be endorse to next shift nurse.
--- NOTE | 2018-02-21 07:56 | NUR ---
ST NOTE: pt seen for f/up; tolerating regular diet with thin liquids; no overt s/s of difficulty; pt with suspected decreased hearing as repetition needed; will d/c swallowing therapy at this time but any difficulty please feel free to reconsult; pt in agreement
[2018-02-21] MEDS: INSULIN ASPART [NOVOLOG] 3 ML PEN SC SCH ×4 (08:00→20:32)
[2018-02-21] MEDS: CEFEPIME 1GM/50 ML (PMX) 50 ML IVPB SCH (08:19)
[2018-02-21] MEDS: ATENOLOL 50 MG TAB PO SCH ×2 (08:19→20:30)
[2018-02-21] MEDS: predniSONE 10 MG TAB PO SCH (08:19)
[2018-02-21] MEDS: APIXABAN 5 MG TABLET PO SCH ×2 (08:19→20:32)
--- NOTE | 2018-02-21 09:42 | CONS ---
Date/Time of Note Date/Time of Note DATE: 02/21/18 TIME: 09:39 Assessment/Plan Assessment/Plan Additional Assessment/Plan Assessment recommendations; 1. 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 2. Possibly some element of postobstructive pneumonia involving left lower lobe, currently on appropriate antimicrobial regimen. 3. Chronic atrial fibrillation. 4. Right pneumothorax, status post chest tube placement. 5. Marked interval improvement in some cutaneous emphysema. Continue current supportive care. Maintain chest tube until the cutaneous emphysema has resolved. Further recommendations per oncologist. Prognosis is poor. Consultation Date/Type/Reason Admit Date/Time Feb 07, 2018 at 13:54 Initial Consult Date Type of Consult Pulmonary/critical care Requesting Provider: FIDEL GAVIN MD 24 HR Interval Summary Free Text/Dictation Patient's condition is stable. Remains awake and alert. Denies any shortness or, chest pain, coughing, wheezing, sputum production or hemoptysis. General exam; elderly male, awake alert, currently no distress. Exam/Review of Systems Vital Signs Vitals Vital Signs Date Temp Pulse Resp B/P (MAP) Pulse Ox O2 O2 Flow FiO2 Time Delivery Rate 02/21/18 85 08:20 02/21/18 98.0 20 140/64 91 Nasal 07:47 (89) Cannula 02/20/18 2.0 19:55 Intake and Output 02/20/18 02/20/18 02/21/18 1515:00 23:00 07:00 IntakeIntake Total 600 ml OutputOutput Total 1150 ml 800 ml BalanceBalance -550 ml -800 ml Exam H EENT exam; supple neck, no JVD. No lymphadenopathy. Midline trachea. No thyromegaly. There is almost complete resolution of right-sided facial sub cutaneous emphysema. Patient has fair dentition. No neck masses. Chest exam; right side chest tube in place. There is mild right chest wall subcutaneous emphysema with crepitus. Diminished breath sounds left lower lobe. S1-S2 audible, no murmurs. Irregular rhythm. Abdomen exam; soft, no organomegaly. Bowel sounds audible. Nontender. Extremity exam; no peripheral edema or clubbing. SEARCH LEAD exam; no focal deficit. ALAN DICKERSON Feb 21, 2018 09:42
--- NOTE | 2018-02-21 12:15 | PN ---
Date/Time of Note Date/Time of Note DATE: 02/21/18 TIME: 12:14 Assessment/Plan Lines/Catheters IV Catheter Type (from Nrsg): Peripheral IV Bar in Place (from Nrsg): Yes Assessment/Plan Assessment/Plan Right-sided pneumothorax status post chest tube placement. Pt developed SQ emphysema after clamping the tube CT with 300cc output Right Chest PTX stable RECOMMENDATIONS: CT clamped Monitor the chest x-ray may need VATS if develops SQ Emphysema with clamping the tube. Discuss with the referring physicians. Subjective 24 Hr Interval Summary Constitutional: improved Pain Control: mild Exam/Review of Systems Vital Signs Vitals Vital Signs Date Temp Pulse Resp B/P (MAP) Pulse Ox O2 O2 Flow FiO2 Time Delivery Rate 02/21/18 98.0 78 20 151/67 100 Nasal 11:19 (95) Cannula 02/21/18 2.0 08:30 Intake and Output 02/20/18 02/20/18 02/21/18 1515:00 23:00 07:00 IntakeIntake Total 600 ml OutputOutput Total 1150 ml 800 ml BalanceBalance -550 ml -800 ml Exam ENMT: nl external ears & nose, nl lips & teeth, nl nasal mucosa & septum, mucosa pink and moist Neck: supple, non-tender Respiratory: clear to auscultation, normal air movement Cardiovascular: regular rate and rhythm, nl pulses Gastrointestinal: soft, nl liver, spleen, non-tender Musculoskeletal: nl extremities to inspection, nl gait and stance Extremities: normal pulses Results Result Diagram: 02/20/18 0517 02/20/18 0517 SHIRA ORTIZ MD Feb 21, 2018 12:15
--- NOTE | 2018-02-21 12:26 | NUR ---
Vancomycin per Rx Vancomycin trough = 13.1 SCr 1.07 Continue Vancomycin 1.25 gm IVPB q24h
[2018-02-21] MEDS: VANCOMYCIN 1.25 GM in SOD CHLORIDE 0.9% 250 ML IVPB SCH (12:33)
--- NOTE | 2018-02-21 12:47 | CONS ---
Date/Time of Note Date/Time of Note DATE: 02/21/18 TIME: 12:45 Assessment/Plan Assessment/Plan Chief Complaint/Hosp Course IMP: 1.AF-rate controlled 2.CHF-diastolic acute on chronic 3.HTN-reasonable control 4.Pleural effusion s/p thoracentesis c/b PTX now s/p CT. Now s/p thoracentesis on Left 5. Renal failure 6. Leukocytosis 7. anemia 8. SQ emphysema extensive-tracking up into face and around eye, continues to improve Recc: -ICU -Continue atenolol/dilt and priya make slight increase to dose to improve HR/BP further -Continue steroids/abx/bronchodilators -continue eliquis -Follow CT output closely -Follow exam with SQ emphysema closely which is significantly improved Consultation Date/Type/Reason Admit Date/Time Feb 07, 2018 at 13:54 Initial Consult Date 02/07/18 Type of Consult cardiology Reason for Consultation AF Requesting Provider: FIDEL GAVIN MD Exam/Review of Systems Vital Signs Vitals Vital Signs Date Temp Pulse Resp B/P (MAP) Pulse Ox O2 O2 Flow FiO2 Time Delivery Rate 02/21/18 82 12:14 02/21/18 98.0 20 151/67 100 Nasal 11:19 (95) Cannula 02/21/18 2.0 08:30 Intake and Output 02/20/18 02/20/18 02/21/18 1515:00 23:00 07:00 IntakeIntake Total 600 ml OutputOutput Total 1150 ml 800 ml BalanceBalance -550 ml -800 ml Exam Review of Systems: CONSTITUTIONAL: No fevers, chills. PULMONARY: No sob CARDIOVASCULAR: No chest pain/palpitations GASTROINTESTINAL: No nausea/vomiting. GENITOURINARY: No hematuria/dysuria. MUSCULOSKELETAL: No myagias/arthalgias. PSYCHIATRIC: The patient denies depression. NEUROLOGIC: No weakness Constitutional: alert Psych: no complaints Head: normocephalic ENMT: mucosa pink and moist Neck: supple, jvd (9 cm water) Respiratory: diminished breath sounds Cardiovascular: regular rate and rhythm Gastrointestinal: soft, non-tender Musculoskeletal: muscle tone (normal) Extremities: edema (none) 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: other (No focal deficits) CECE LOPEZ Feb 21, 2018 12:47
--- NOTE | 2018-02-21 14:07 | NUR ---
PT NOTE Therapy day number 6 Subjective Denies pain Pain Scale NUMERIC Pain Intensity 0 (0-10) Patient Stated Goal for Pain Relief 0 (0-10) Pain Level Comment denies pain pre tx Transfer Training Start Time 14:07 Supine to Sit Supervised Transfer Sit to Stand Ability Stand by Assist Bed Mobility Sit to Supine Supervised Additional Mobility Comments Transfers w/AD Transfer Training End Time 14:19 Total Transfer Training Time 12 min (8-127) Gait Training Start Time 14:19 Gait Assist Levels Stand by Assist Assistive Devices Front Wheel Walker Ambulation Distance 100 feet Additional Gait Comments 50' x 2, slow johana, NBOS, decreased step length/stride Gait Training End Time 14:45 Total Gait Training Treatment Time 26 min (8-127) Static Sitting Balance Good Dynamic Sitting Balance Good Standing Static Balance Fair Dynamic Standing Balance Fair Additional Balance Assessments Comments FWW Safety Judgement Fair Activity Tolerance Fair Equipment Present A pump Drains Bar Catheter IV pump Additional Equipment Present chest tube, on 2L O2,] Post Treatment Pain Intensity 0 0-10 Quality Indicators Dizziness Variance Documentation SEE BELOW AND PT NOTE Total Treament Time 38 min (8-127) Total Minutes 38 Total Units 3 PT Technical Record Comment PT NOTE S: Pt stated, "I am feeling okay, nothing to complain right now." Agreeable for PT and cleared per СЕРГЕЙ Recio. O: Received pt in semi-fowlers, alert. Bed mobility w/HOB slightly elevated using BR Supervised. Applied gait belt at EOB. STS to FWW SBA. Gait training performed w/FWW 50' x 2 SBA/Supervised. Noted slow johana, NBOS, flexed posture, and (B) shoulder tension. Pt required occasionally VCs/TCs to correct posture, maintain distance from AD, increase MILLY, and relax shoulders. Pt verbalized and demonstrated w/good return w/self correcting. Pt required 2 standing rest breaks due to pt reporting dizziness and fatigue. Assisted pt back to room BTB. Left pt in comfort position, call light/phone within reach, bed alarmed, and all needs met. СЕРГЕЙ Recio informed of pt's status. A: Fair tolerance to tx. Transfers and gait assistance improved compared to previous tx. O2 was supplemented throughout tx. Limited gait today due to increased fatigue and dizziness. P: Continue POC and progress as tolerated.
--- NOTE | 2018-02-21 14:47 | PN ---
Date/Time of Note Date/Time of Note DATE: 02/21/18 TIME: 14:45 Assessment/Plan VTE Prophylaxis Risk score (from Ns)>0 risk: 7 SCD applied (from Ns): Yes Pharmacological prophylaxis: NA/contraindicated, apixaban Pharm contraindication: low risk/ambulating Lines/Catheters IV Catheter Type (from [facility]): Peripheral IV Urinary Cath still in place: Yes Reason Cath still needed: urinary retention Assessment/Plan Hospital Course ASSESSMENT AND PLAN: This is a 77-year-old male who presented with: # Respiratory failure status post intubation on 1210 this post extubation #. Shortness of breath likely secondary to congestive heart failure/chronic obstructive pulmonary disease exacerbation. # right-sided pneumothorax status post thoracentesis, now with chest tube , subcutanoeus emphysema, chest tube in place # Large left pleural effusion, status post thoracentesis in the past. Status post thoracentesis on 7 # History of chronic obstructive pulmonary disease. #. Atrial fibrillation with rapid ventricular response.controlled #. Hypertension. # EKG changes of atrial fibrillation with ST segment changes in the inferior leads. # History of lung cancer status post chemo and radiation.? NEW Lung metastases # History of coronary artery disease. #. Pleural effusion, status post thoracentesis. # Elevated BNP secondary to congestive heart failure. #. Hyponatremia. # History of peripheral vascular disease. # LEUKOCYTOSIS secondary to steroids # acute on chronic renal failure likely due to prerenal/ATN Overdiuresis, and uptrending continue to monitor urine monitor creatinine, cR 1.8 > trending down> resolved #Mild hyperkalemia #extemepuffiness around the right eye due to extensive subcutaneous emphysema, and on the soft tissue CT> resolved Plan -Tube has been clamped, Monitor for worsening subcutaneous emphysema - FU Chest Xray am -CW Eliquis -Taper prednisone -wbc to 25>22 on vancomycin and cefepime follow-up with ID recs - ? VATS if patient has subcutaneous emphysema per Dr. Joseph avila diltazem and atenolol - f/u cardiac and pul recs -cw PT Subjective 24 Hr Interval Summary Free Text/Dictation Chest tube has been clamped patient feels fine Exam/Review of Systems Vital Signs Vitals Vital Signs Date Temp Pulse Resp B/P (MAP) Pulse Ox O2 O2 Flow FiO2 Time Delivery Rate 02/21/18 82 12:14 02/21/18 98.0 20 151/67 100 Nasal 11:19 (95) Cannula 02/21/18 2.0 08:30 Intake and Output 02/20/18 02/20/18 02/21/18 1515:00 23:00 07:00 IntakeIntake Total 600 ml OutputOutput Total 1150 ml 800 ml BalanceBalance -550 ml -800 ml Exam Respiratory: diminished breath sounds. LEFT Base Cardiovascular: regular rate and rhythm Gastrointestinal: soft, bowel sounds (+) Extremities: edema (tr) Skin: other (sub emphysema+) chEST Tube in place FIDEL GAVIN MD Feb 21, 2018 14:47
--- NOTE | 2018-02-21 15:41 | CONS ---
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 Now with pleural effusion s/p thoracentesis, complicated by PTX and now with chest tube and SP extubated- -f/u cytology on pleural effusion is negative for malignancy -when he is more stable, check CT chest with contrast -mild leukocytosis likely reactive, stable WBC -mild anemia, suspect due to anemia of chronic disease -once he is more stable and he can have CT chest with contrast will better be able to assess if he has disease recurrence Patient is seen in collaboration with Dr Green Consultation Date/Type/Reason Admit Date/Time Feb 07, 2018 at 13:54 Initial Consult Date 02/10/2108 Type of Consult Oncology/ Hematology Requesting Provider: FIDEL GAVIN MD 24 HR Interval Summary Free Text/Dictation Feels better plan to dc chest tube today no new issues reported last night Detailed Summary Eyes: no complaints ENT: no complaints Respiratory: pain (on CT insertion site- but pain is bearable now) Cardiovascular: no complaints Gastrointestinal: no complaints Musculoskeletal: no complaints Exam/Review of Systems Vital Signs Vitals Vital Signs Date Temp Pulse Resp B/P (MAP) Pulse Ox O2 O2 Flow FiO2 Time Delivery Rate 02/21/18 98.9 80 20 163/68 99 Nasal 15:20 (99) Cannula 02/21/18 2.0 08:30 Intake and Output 02/20/18 02/20/18 02/21/18 1515:00 23:00 07:00 IntakeIntake Total 600 ml OutputOutput Total 1150 ml 800 ml BalanceBalance -550 ml -800 ml Exam Constitutional: alert, well developed Psych: nl mood/affect Head: normocephalic Eyes: nl conjunctiva, EOMI, nl lids, nl sclera ENMT: nl external ears & nose Neck: non-tender Respiratory: diminished breath sounds, other (sp right chesttube placement- DDI) Cardiovascular: nl pulses, other (S1S2) Gastrointestinal: soft, non-tender Musculoskeletal: muscle weakness, range of motion Extremities: normal pulses 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: nl mental status Skin: nl turgor Lymph: nontender BRYAN CARLIN Feb 21, 2018 15:41
--- NOTE | 2018-02-21 18:52 | NUR ---
EOSS Patient is alert and oriented to person, place, and time. No shortness of breath noted. Patient have intermittent productive cough. IV abt given. Ambulated to bedside commode with assist. Chest tube still clamped per MD order. All needs attended to and met. Kept comfortable. Call light within reach.
--- NOTE | 2018-02-21 18:57 | CONS ---
Date/Time of Note Date/Time of Note DATE: 02/21/18 TIME: 18:56 Assessment/Plan Assessment/Plan Chief Complaint/Hosp Course 1215 No acute events overnight noted. Patient is alert, comfortable on nc, no fevers, CT clamped Microbiology: All cultures negative Antimicrobials: Vancomycin cefepime Indwelling: Bar catheter right chest tube Chest x-ray unchanged Physical examination: Fragile well-developed elderly man who is awake in no distress. Head atraumatic normocephalic. Sclera nonicteric. Neck is supple. Chest rise symmetrical breath sounds with scattered crackles to the right. Heart: S1-S2. Abdomen soft, bowel sounds present. Extremities without cyanosis. Assessment: 1. Persistent leukocytosis secondary to #2 and large left pleural effusion 2. Bilateral pneumonia 3. Right pneumothorax with significant current cutaneous emphysema status post chest tube placement. 4. History of CVA 5. History of lung cancer 6. Atrial fibrillation Plan: Clinically unchanged, continue present care, antibiotics, pulmonary, oncology and cardiothoracic surgery recommendations==> may need VATS Consultation Date/Type/Reason Admit Date/Time Feb 07, 2018 at 13:54 Initial Consult Date Type of Consult id Requesting Provider: FIDEL GAVIN MD Exam/Review of Systems Vital Signs Vitals Vital Signs Date Temp Pulse Resp B/P (MAP) Pulse Ox O2 O2 Flow FiO2 Time Delivery Rate 02/21/18 86 16:13 02/21/18 98.9 20 163/68 99 Nasal 15:20 (99) Cannula 02/21/18 2.0 08:30 Intake and Output 02/20/18 02/20/18 02/21/18 1515:00 23:00 07:00 IntakeIntake Total 600 ml OutputOutput Total 1150 ml 800 ml BalanceBalance -550 ml -800 ml SUZANNE DANIELS NP Feb 21, 2018 18:57
[2018-02-22] VITALS (11 sets, daily range): BP systolic 136–154; BP diastolic 65–72; PULSE 69–88; RESP 18–20
[2018-02-22] MEDS: LANSOPRAZOLE 30 MG CAP GTB SCH (06:19)
[2018-02-22] MEDS: DILTIAZEM 60 MG TAB PO SCH ×3 (06:20→21:24)
[2018-02-22] MEDS: INSULIN ASPART [NOVOLOG] 3 ML PEN SC SCH ×4 (08:00→21:27)
[2018-02-22] MEDS: ATENOLOL 50 MG TAB PO SCH ×2 (08:13→21:23)
[2018-02-22] MEDS: APIXABAN 5 MG TABLET PO SCH ×2 (08:13→21:24)
[2018-02-22] MEDS: CEFEPIME 1GM/50 ML (PMX) 50 ML IVPB SCH (08:14)
--- NOTE | 2018-02-22 08:37 | PN ---
Date/Time of Note Date/Time of Note DATE: 02/22/18 TIME: 08:36 Assessment/Plan Lines/Catheters IV Catheter Type (from Nrsg): Peripheral IV Bar in Place (from Nrsg): Yes Assessment/Plan Assessment/Plan SP Right CT placement CT clamped CXR MPRESSION: No significant change. Right-sided chest tube in place with no pneumothorax visualized. Right chest wall subcutaneous emphysema. Large left pleural effusion with left lung atelectasis. Will DC CT Subjective 24 Hr Interval Summary Constitutional: improved Pain Control: mild Exam/Review of Systems Vital Signs Vitals Vital Signs Date Temp Pulse Resp B/P (MAP) Pulse Ox O2 O2 Flow FiO2 Time Delivery Rate 02/22/18 88 08:00 02/22/18 98.0 20 136/68 100 Nasal 07:38 (90) Cannula 02/21/18 2.0 20:00 Intake and Output 02/21/18 02/21/18 02/22/18 1515:00 23:00 07:00 IntakeIntake Total 750 ml OutputOutput Total 900 ml 1300 ml BalanceBalance -150 ml -1300 ml Exam Eyes: nl conjunctiva, EOMI, nl lids, nl sclera ENMT: nl external ears & nose, nl lips & teeth, nl nasal mucosa & septum, mucosa pink and moist Neck: supple, non-tender Respiratory: clear to auscultation, normal air movement Cardiovascular: regular rate and rhythm, nl pulses Musculoskeletal: nl extremities to inspection, nl gait and stance Results Result Diagram: 02/20/18 0517 02/22/18 0522 SHIRA ORTIZ MD Feb 22, 2018 08:37
[2018-02-22] MEDS ORDERED: predniSONE 20 MG TAB PO SCH (09:00)
--- NOTE | 2018-02-22 09:36 | NUR ---
PT NOTE Therapy day number 7 Subjective Denies pain Pain Scale NUMERIC Pain Intensity 0 (0-10) Patient Stated Goal for Pain Relief 0 (0-10) Pain Level Comment denies pain Transfer Training Start Time 09:36 Transfer Sit to Stand Ability Stand by Assist Additional Mobility Comments Transfers w/AD Transfer Training End Time 09:50 Total Transfer Training Time 14 min (8-127) Gait Training Start Time 09:50 Gait Assist Levels Stand by Assist Assistive Devices Front Wheel Walker Ambulation Distance 100 feet Additional Gait Comments 100' x 2. slow johana, flexed posture, NBOS, decreased step length/stride Gait Training End Time 10:15 Total Gait Training Treatment Time 25 min (8-127) Static Sitting Balance Good Dynamic Sitting Balance Good Standing Static Balance Fair Dynamic Standing Balance Fair Additional Balance Assessments Comments FWW Safety Judgement Fair Activity Tolerance Fair Equipment Present A pump Drains Bar Catheter IV pump Additional Equipment Present chest tube, on 2L O2,] Post Treatment Pain Intensity 0 0-10 Quality Indicators SOB Upon Exertion Dizziness Variance Documentation SEE BELOW AND PT NOTE Total Treament Time 39 min (8-127) Total Minutes 39 Total Units 3 PT Technical Record Comment PT NOTE S: Pt stated, "Oh I am feeling great right now." Agreeable for PT and cleared per СЕРГЕЙ Recio. O: Received pt sitting EOB. Applied gait belt. STS to FWW SBA/Supervised. Gait training performed w/FWW 100' x 2 SBA/Supervised. Noted slow johana, NBOS, flexed posture, decreased step length/stride and (B) shoulder tension. Pt required VCs/TCs to correct posture, maintain distance from AD, increase MILLY/step length/stride, and relax shoulders. Pt verbalized and demonstrated w/fair return. Pt required frequent standing rest breaks due to pt reporting dizziness and fatigue. Assisted pt back to room BTB. Left pt in comfort position, call light/phone within reach, bed alarmed, and all needs met. СЕРГЕЙ Recio informed of pt's status. A: Fair tolerance to tx. Gait distance improved compared to previous tx. O2 was supplemented throughout tx. Noted SOB upon exertion during ambulation, therefore pt was educated w/breathing techniques for energy conservation. P: Continue POC and progress as tolerated.
--- NOTE | 2018-02-22 11:09 | CONS ---
Date/Time of Note Date/Time of Note DATE: 02/22/18 TIME: 11:05 Assessment/Plan Assessment/Plan Additional Assessment/Plan Chest x-ray was reviewed from today which again showing left lower lobe infiltrate/pleural effusion. Assessment recommendations; 1. Patient admitted with hypoxemia due to bilateral pleural effusions with pleural fluid cytology positive for Squamous cell carcinoma. 2. Likely left lower lobe postobstructive pneumonia. 3. Chronic atrial fibrillation. 4. Right pneumothorax status post thoracentesis. With significant and marked improvement in subcutaneous emphysema. No further air leak in Pleur-evac chamber. Continue with supportive care. Maintain chest tube until subcutaneous emphysema resolves.. Prognosis is poor. Consultation Date/Type/Reason Admit Date/Time Feb 07, 2018 at 13:54 Initial Consult Date Type of Consult Pulmonary/critical care Requesting Provider: FIDEL GAVIN MD 24 HR Interval Summary Free Text/Dictation Patient's condition is stable. Denies any shortness of breath or chest pain. General exam; elderly male, awake alert, currently no distress. Sitting in a chair by bedside. Exam/Review of Systems Vital Signs Vitals Vital Signs Date Temp Pulse Resp B/P (MAP) Pulse Ox O2 O2 Flow FiO2 Time Delivery Rate 02/22/18 98.0 70 20 145/68 97 Nasal 10:57 (93) Cannula 02/22/18 2.0 09:55 Intake and Output 02/21/18 02/21/18 02/22/18 1515:00 23:00 07:00 IntakeIntake Total 750 ml OutputOutput Total 900 ml 1300 ml BalanceBalance -150 ml -1300 ml Exam H EENT exam; supple neck, no JVD. No lymphadenopathy. Midline trachea. No thyromegaly. Patient has fair dentition. Chest exam; diminished breath sound left shoulder. Right-sided chest tube in place. There is mild right chest wall sub cutaneous emphysema. S1-S2 audible, no murmurs. Irregular rhythm. Abdomen exam; soft, no organomegaly. Bowel sounds audible. Extremity exam; no edema or clubbing. FAMILY SOCIOLOGIST exam; no focal deficit. ALAN DICKERSON Feb 22, 2018 11:09
--- NOTE | 2018-02-22 11:44 | PN ---
Date/Time of Note Date/Time of Note DATE: 02/22/18 TIME: 11:38 Assessment/Plan VTE Prophylaxis Risk score (from Ns)>0 risk: 6 SCD applied (from Nsg): Yes Pharmacological prophylaxis: apixaban Lines/Catheters IV Catheter Type (from Nrsg): Peripheral IV Urinary Cath still in place: Yes Reason Cath still needed: urinary retention Assessment/Plan Hospital Course # Respiratory failure status post intubation on 02/12, post extubation #. Shortness of breath likely secondary to congestive heart failure/chronic obstructive pulmonary disease exacerbation. # right-sided pneumothorax status post thoracentesis, now with chest tube , subcutaneous emphysema, chest tube in place # Large left pleural effusion, status post thoracentesis in the past. Status post thoracentesis on 02/18/18 # History of chronic obstructive pulmonary disease. #. Atrial fibrillation with rapid ventricular response, controlled #. Hypertension. # EKG changes of atrial fibrillation with ST segment changes in the inferior leads. # History of lung cancer status post chemo and radiation.? NEW Lung metastases # History of coronary artery disease. #. Pleural effusion, status post thoracentesis. # Elevated BNP secondary to congestive heart failure. #. Hyponatremia, resolved. # History of peripheral vascular disease. # LEUKOCYTOSIS secondary to steroids # acute on chronic renal failure likely due to prerenal/ATN Overdiuresis, resolved # Mild hyperkalemia, resolved # extemepuffiness around the right eye due to extensive subcutaneous emphysema, and on the soft tissue CT> resolved Assessment/Plan -Chest tube has been clamped -HG A1 C - Monitor for worsening subcutaneous emphysema - F/U Chest Xray am, same -CW Eliquis -Taper prednisone -wbc tending down to 25>22 on vancomycin and cefepime follow-up with ID recs - ? VATS if patient has subcutaneous emphysema per Dr. Dawn - sukumar w diltazem and atenolol - f/u cardiac and pulmonary recs -cw PT Subjective 24 Hr Interval Summary Free Text/Dictation weakness Exam/Review of Systems Vital Signs Vitals Vital Signs Date Temp Pulse Resp B/P (MAP) Pulse Ox O2 O2 Flow FiO2 Time Delivery Rate 02/22/18 98.0 70 20 145/68 97 Nasal 10:57 (93) Cannula 02/22/18 2.0 09:55 Intake and Output 02/21/18 02/21/1818 1515:00 23:00 07:00 IntakeIntake Total 750 ml OutputOutput Total 900 ml 1300 ml BalanceBalance -150 ml -1300 ml Exam chest tube Constitutional: alert, oriented Head: normocephalic ENMT: nl external ears & nose Respiratory: normal air movement, other (crepitation right side of the chest) Cardiovascular: regular rate and rhythm, other (afib controlled) Genitourinary - Male: CVA tenderness; No nl penis, No nl scrotum, No discharge, No other JASPER SAHU Feb 22, 2018 11:44
[2018-02-22] MEDS: VANCOMYCIN 1.25 GM in SOD CHLORIDE 0.9% 250 ML IVPB SCH (12:00)
--- NOTE | 2018-02-22 12:42 | CONS ---
Date/Time of Note Date/Time of Note DATE: 02/22/18 TIME: 12:39 Assessment/Plan Assessment/Plan Chief Complaint/Hosp Course IMP: 1.AF-rate controlled 2.CHF-diastolic acute on chronic 3.HTN-reasonable control 4.Pleural effusion s/p thoracentesis c/b PTX now s/p CT. Now s/p thoracentesis on Left 5. Renal failure 6. Leukocytosis 7. anemia 8. SQ emphysema extensive-tracking up into face and around eye, continues to improve Recc: -ICU -Continue atenolol/dilt and will make slight increase to dose to improve HR/BP further -Continue steroids/abx/bronchodilators -continue eliquis -Follow CT output closely -Follow exam with SQ emphysema closely which is significantly improved Consultation Date/Type/Reason Admit Date/Time Feb 07, 2018 at 13:54 Initial Consult Date 02/07/18 Type of Consult cardiology Reason for Consultation AF Requesting Provider: FIDEL GAVIN MD Exam/Review of Systems Vital Signs Vitals Vital Signs Date Temp Pulse Resp B/P (MAP) Pulse Ox O2 O2 Flow FiO2 Time Delivery Rate 02/22/18 77 12:00 02/22/18 98.0 20 145/68 97 Nasal 10:57 (93) Cannula 02/22/18 2.0 09:55 Intake and Output 02/21/18 02/21/18 02/22/18 1515:00 23:00 07:00 IntakeIntake Total 750 ml OutputOutput Total 900 ml 1300 ml BalanceBalance -150 ml -1300 ml Exam Review of Systems: CONSTITUTIONAL: No fevers, chills. PULMONARY: No sob CARDIOVASCULAR: No chest pain/palpitations GASTROINTESTINAL: No nausea/vomiting. GENITOURINARY: No hematuria/dysuria. MUSCULOSKELETAL: No myagias/arthalgias. PSYCHIATRIC: The patient denies depression. NEUROLOGIC: No weakness Constitutional: alert Psych: no complaints Head: normocephalic ENMT: mucosa pink and moist Neck: supple, jvd (8 cm water) Respiratory: diminished breath sounds (at bases/VNB), other (CT in place) Cardiovascular: regular rate and rhythm Gastrointestinal: soft, non-tender Musculoskeletal: muscle tone (normal) Extremities: edema (none) 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: other (no focal deficts) CECE LOPEZ Feb 22, 2018 12:42
--- NOTE | 2018-02-22 17:13 | CONS ---
Date/Time of Note Date/Time of Note DATE: 02/22/18 TIME: 17:12 Assessment/Plan Assessment/Plan Chief Complaint/Hosp Course No acute events. Patient is alert, comfortable on nc, no fevers, CT clamped Microbiology: All cultures negative Antimicrobials: Vancomycin cefepime Indwelling: Bar catheter, right chest tube Physical examination: Fragile well-developed elderly man who is awake in no distress. Head atraumatic normocephalic. Sclera nonicteric. Neck is supple. Chest rise symmetrical breath sounds with scattered crackles to the right. Heart: S1-S2. Abdomen soft, bowel sounds present. Extremities without cyanosis. Assessment: 1. Persistent leukocytosis secondary to #2 and large left pleural effusion 2. Bilateral pneumonia 3. Right pneumothorax with significant current cutaneous emphysema status post chest tube placement. 4. History of CVA 5. History of lung cancer 6. Atrial fibrillation Plan: Clinically unchanged, overall stable, continue present care, antibiotics, follow pulmonary, oncology and cardiothoracic surgery recommendations Consultation Date/Type/Reason Admit Date/Time Feb 07, 2018 at 13:54 Initial Consult Date Type of Consult id Requesting Provider: FIDEL GAVIN MD Exam/Review of Systems Vital Signs Vitals Vital Signs Date Temp Pulse Resp B/P (MAP) Pulse Ox O2 O2 Flow FiO2 Time Delivery Rate 02/22/18 88 16:00 02/22/18 98.0 20 146/65 99 Nasal 15:47 (92) Cannula 02/22/18 2.0 09:55 Intake and Output 02/21/18 02/21/18 02/22/18 1414:59 22:59 06:59 IntakeIntake Total 750 ml OutputOutput Total 900 ml 1300 ml BalanceBalance -150 ml -1300 ml SUZANNE DANIELS NP Feb 22, 2018 17:13
--- NOTE | 2018-02-22 17:40 | NUR ---
EOSS Patient is alert and oriented to person, place, and time. No shortness of breath noted. Patient have intermittent productive cough. Ambulated to bedside commode with assist. Chest tube clamped per MD order. All needs attended to and met. Kept comfortable. Call light within reach.
[2018-02-23] VITALS (13 sets, daily range): BP systolic 96–158; BP diastolic 55–83; PULSE 70–86; RESP 18–20
[2018-02-23] MEDS: LANSOPRAZOLE 30 MG CAP GTB SCH (06:14)
[2018-02-23] MEDS: DILTIAZEM 60 MG TAB PO SCH ×3 (06:16→22:00)
--- NOTE | 2018-02-23 06:58 | NUR ---
EOSS; awake alert oriented x 4 , w/ chest tube clamped , 02 2l nc no sob noted , atrial fib on he monitor slept at long intervals no c/o pain.
[2018-02-23] MEDS: INSULIN ASPART [NOVOLOG] 3 ML PEN SC SCH ×4 (07:50→20:39)
[2018-02-23] MEDS: CEFEPIME 1GM/50 ML (PMX) 50 ML IVPB SCH (08:56)
[2018-02-23] MEDS: APIXABAN 5 MG TABLET PO SCH ×2 (08:57→20:33)
[2018-02-23] MEDS: ATENOLOL 50 MG TAB PO SCH ×2 (08:58→20:33)
[2018-02-23] MEDS ORDERED: predniSONE 5 MG TAB PO SCH (09:00)
--- NOTE | 2018-02-23 10:18 | CONS ---
Date/Time of Note Date/Time of Note DATE: 02/23/18 TIME: 10:16 Assessment/Plan Assessment/Plan Additional Assessment/Plan Assessment recommendations; 1. Patient admitted with hypoxemia due to bilateral pleural effusions, status post right thoracentesis with ensuing pneumothorax causing significant sub- cutaneous emphysema with interval improvement. Pleural fluid cytology positive for squamous cell carcinoma. 2. Chronic atrial fibrillation. 3. Likely left lower lobe postobstructive pneumonia. Continue current supportive care. Prognosis is poor. Consider stopping antibiotics. Consider discharge. Consider palliative care. Consultation Date/Type/Reason Admit Date/Time Feb 07, 2018 at 13:54 Initial Consult Date Type of Consult Pulmonary/critical care Requesting Provider: FIDEL GAVIN MD 24 HR Interval Summary Free Text/Dictation Patient's condition is stable. Denies any shortness or chest pain, coughing, wheezing or any sputum production. General exam; elderly male, sitting in a chair by bedside. Awake alert. Currently in no distress. Exam/Review of Systems Vital Signs Vitals Vital Signs Date Temp Pulse Resp B/P (MAP) Pulse Ox O2 O2 Flow FiO2 Time Delivery Rate 02/23/18 86 08:00 02/23/18 98.0 20 146/62 99 Nasal 07:33 (90) Cannula 02/23/18 2.0 07:32 Intake and Output 02/22/18 02/22/18 02/23/18 1515:00 23:00 07:00 IntakeIntake Total 550 ml 200 ml OutputOutput Total 600 ml 1100 ml BalanceBalance -50 ml -900 ml Exam H EENT exam; supple neck, no JVD. No lymphadenopathy. Midline trachea. No thyromegaly. Pharynx is clear. Patient has fair dentition. There is no facial subcutaneous emphysema. Chest exam; diminished breath sounds in left lower lobe. Right-sided chest tube in place. There is crepitus involving the right anterior chest wall. S1-S2 audible, no murmurs. Irregular rhythm. Abdomen exam; soft, nontender. No organomegaly. Bowel sounds audible. Extremity exam; no edema clubbing. SETTLEMENT CLERK exam; no focal deficit. ALAN DICKERSON Feb 23, 2018 10:18
--- NOTE | 2018-02-23 12:50 | PN ---
Date/Time of Note Date/Time of Note DATE: 02/23/18 TIME: 12:46 Assessment/Plan VTE Prophylaxis Risk score (from Nsg)>0 risk: 7 SCD applied (from Nsg): Yes Pharmacological prophylaxis: apixaban Lines/Catheters IV Catheter Type (from Nrsg): Saline Lock Urinary Cath still in place: Yes Reason Cath still needed: other (indicate) (d/c) Assessment/Plan Hospital Course # Respiratory failure status post intubation on 02/12, post extubation #. Shortness of breath likely secondary to congestive heart failure/chronic obstructive pulmonary disease exacerbation. # right-sided pneumothorax status post thoracentesis, now with chest tube , subcutaneous emphysema, chest tube in place # Large left pleural effusion, status post thoracentesis in the past. Status post thoracentesis on 02/18/18 # History of chronic obstructive pulmonary disease. #. Atrial fibrillation with rapid ventricular response, controlled #. Hypertension. # EKG changes of atrial fibrillation with ST segment changes in the inferior leads. # History of lung cancer status post chemo and radiation.? NEW Lung metastases # History of coronary artery disease. #. Pleural effusion, status post thoracentesis. # Elevated BNP secondary to congestive heart failure. #. Hyponatremia, resolved. # History of peripheral vascular disease. # LEUKOCYTOSIS secondary to steroids # acute on chronic renal failure likely due to prerenal/ATN Overdiuresis, resolved # Mild hyperkalemia, resolved # extemepuffiness around the right eye due to extensive subcutaneous emphysema, and on the soft tissue CT> resolved Assessment/Plan -Chest tube has been clamped -HG A1 C 6.0 - Monitor for worsening subcutaneous emphysema - F/U Chest Xray am, same -CW Eliquis -Taper prednisone -wbc tending down to 25>22>16 on vancomycin and cefepime follow-up with ID recs - ? VATS if patient has subcutaneous emphysema per Dr. Olvera - c w diltazem and atenolol - f/u cardiac and pulmonary recs -cw PT DVt prophylaxis eliquiz BID -GI prophylaxis Protonix po Subjective 24 Hr Interval Summary Constitutional: no complaints, improved Exam/Review of Systems Vital Signs Vitals Vital Signs Date Temp Pulse Resp B/P (MAP) Pulse Ox O2 O2 Flow FiO2 Time Delivery Rate 02/23/18 72 12:00 02/23/18 98.0 20 96/55 (69) 94 Nasal 10:54 Cannula 02/23/18 2.0 07:32 Intake and Output 02/22/18 02/22/18 02/23/18 1515:00 23:00 07:00 IntakeIntake Total 550 ml 200 ml OutputOutput Total 600 ml 1100 ml BalanceBalance -50 ml -900 ml Exam Constitutional: alert, oriented Head: normocephalic Neck: supple Respiratory: normal air movement, other (CT) Cardiovascular: regular rate and rhythm Gastrointestinal: soft Skin: nl turgor, other (crepitus) JASPER SAHU Feb 23, 2018 12:50
[2018-02-23] MEDS: VANCOMYCIN 1.25 GM in SOD CHLORIDE 0.9% 250 ML IVPB SCH (13:07)
--- NOTE | 2018-02-23 14:13 | CONS ---
Date/Time of Note Date/Time of Note DATE: 02/23/18 TIME: 14:11 Assessment/Plan Assessment/Plan Additional Assessment/Plan 1.AF-rate controlled - better now - rate < 90s. Con't to follow. 2.CHF-diastolic acute on chronic - euvolemic by exam, chronic - improved fluid stus. 3.HTN-reasonable control - will adjust Rx as needed. 4.Pleural effusion s/p thoracentesis c/b PTX now s/p CT. Now s/p thoracentesis on Left - CT in, surgical team follows. Much better overall. 5. Renal failure - god urine output - avoid nephrotomic meds. 6. Leukocytosis - rx with anti-Bx. 7. anemia - no active bleeding 8. SQ emphysema extensive-tracking up into face and around eye, continues to improve Consultation Date/Type/Reason Admit Date/Time Feb 07, 2018 at 13:54 Initial Consult Date Requesting Provider: FIDEL GAVIN MD 24 HR Interval Summary Free Text/Dictation Much better overall - rate improved ROS: No fever, no chills, no nausea, no vomiting, no diarrhea/constipation No recent weight changes No chest pain, no PND, no orthopnea - better SOB No dizziness, blurred vision No thirst, no heat or cold intolerance Exam/Review of Systems Vital Signs Vitals Vital Signs Date Temp Pulse Resp B/P (MAP) Pulse Ox O2 O2 Flow FiO2 Time Delivery Rate 02/23/18 72 12:00 02/23/18 98.0 20 96/55 (69) 94 Nasal 10:54 Cannula 02/23/18 2.0 07:32 Intake and Output 02/22/18 02/22/18 02/23/18 1414:59 22:59 06:59 IntakeIntake Total 550 ml 200 ml OutputOutput Total 600 ml 1100 ml BalanceBalance -50 ml -900 ml Exam General: WN/WD/NAD, AOx 3 HEENT: Unicetric/atraumatic/EOMI ( follow commands) NECK: JVD elevated, no thyromegaly Lymph: no lymphadenopathy HEART: irregular with no S3, II/ systolic murmur at apex LUNGS: Coarse sounds, CT in ABD: soft, NT, ND, +BS : Intact Neuro: non focal SKIN: chronic changes EXT: trace edema EMILY SANTAMARIA MD Feb 23, 2018 14:13
--- NOTE | 2018-02-23 14:51 | CONS ---
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 Now with pleural effusion s/p thoracentesis, complicated by PTX and now with chest tube and SP extubated- -f/u cytology on pleural effusion is negative for malignancy -when he is more stable, check CT chest with contrast -mild leukocytosis likely reactive, stable WBC -mild anemia, suspect due to anemia of chronic disease -once he is more stable and he can have CT chest with contrast will better be able to assess if he has disease recurrence Patient is seen in collaboration with Dr Green Consultation Date/Type/Reason Admit Date/Time Feb 07, 2018 at 13:54 Initial Consult Date 02/10/2108 Type of Consult Oncology/ Hematology Requesting Provider: FIDEL GAVIN MD 24 HR Interval Summary Free Text/Dictation Feels better plan to dc right chest tube today no new issues reported last night Constitutional: improved Detailed Summary Eyes: no complaints ENT: no complaints Respiratory: pain, other (pain at right chest tube inscion site at times) Cardiovascular: no complaints Gastrointestinal: no complaints Genitourinary: no complaints Musculoskeletal: no complaints Skin: no complaints Neurologic: no complaints Exam/Review of Systems Vital Signs Vitals Vital Signs Date Temp Pulse Resp B/P (MAP) Pulse Ox O2 O2 Flow FiO2 Time Delivery Rate 02/23/18 72 12:00 02/23/18 98.0 20 96/55 (69) 94 Nasal 10:54 Cannula 02/23/18 2.0 07:32 Intake and Output 02/22/18 02/22/18 02/23/18 1414:59 22:59 06:59 IntakeIntake Total 550 ml 200 ml OutputOutput Total 600 ml 1100 ml BalanceBalance -50 ml -900 ml Exam Constitutional: alert, oriented, well developed Psych: nl mood/affect Head: atraumatic Eyes: nl conjunctiva, EOMI, nl lids, nl sclera ENMT: nl external ears & nose Neck: non-tender Respiratory: diminished breath sounds (bilaterally; right sided Roshni) Musculoskeletal: muscle weakness Extremities: normal pulses 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: nl mental status, nl speech Skin: other (no rash) BRYAN CARLIN Feb 23, 2018 14:51
--- NOTE | 2018-02-23 15:03 | CONS ---
Date/Time of Note Date/Time of Note DATE: 02/23/18 TIME: 15:00 Consultation Date/Type/Reason Admit Date/Time Feb 07, 2018 at 13:54 Initial Consult Date SUBJECTIVE: Patient is sleepy, comfortable, afebrile. CT clamped. VS: stable T: 98.0 LABS: Reviewed. WBC continuing to improve. 16.5 Microbiology: All cultures negative Antimicrobials: Vancomycin and cefepime Indwelling: Bar catheter, right chest tube Physical examination: GEN: Fragile well-developed elderly man who is awake in no distress. Head atraumatic normocephalic. Sclera nonicteric. Neck is supple. Chest rise symmetrical breath sounds with scattered crackles to the right. Heart: S1-S2. Abdomen soft, bowel sounds present. Extremities without cyanosis. Assessment: 1. Persistent leukocytosis secondary to #2 and large left pleural effusion 2. Bilateral pneumonia 3. Right pneumothorax with significant current cutaneous emphysema status post chest tube placement. 4. History of CVA 5. History of lung cancer 6. Atrial fibrillation Plan: Clinically unchanged. Continue current antibiotics. Pulm and Onc recommendations. Requesting Provider: FIDEL GAVIN MD Exam/Review of Systems Vital Signs Vitals Vital Signs Date Temp Pulse Resp B/P (MAP) Pulse Ox O2 O2 Flow FiO2 Time Delivery Rate 02/23/18 72 12:00 02/23/18 98.0 20 96/55 (69) 94 Nasal 10:54 Cannula 02/23/18 2.0 07:32 Intake and Output 02/22/18 02/22/18 02/23/18 1414:59 22:59 06:59 IntakeIntake Total 550 ml 200 ml OutputOutput Total 600 ml 1100 ml BalanceBalance -50 ml -900 ml CONCETTA GUADARRAMA Feb 23, 2018 15:03
--- NOTE | 2018-02-23 16:01 | PN ---
Date/Time of Note Date/Time of Note DATE: 02/23/18 TIME: 16:00 Assessment/Plan Lines/Catheters IV Catheter Type (from Nrsg): Saline Lock Bar in Place (from Nrsg): Yes Assessment/Plan Assessment/Plan MPRESSION: No significant change. Right-sided chest tube in place with no pneumothorax visualized. Right chest wall subcutaneous emphysema. Large left pleural effusion with left lung atelectasis. CT DCed Subjective 24 Hr Interval Summary Constitutional: improved Pain Control: mild Exam/Review of Systems Vital Signs Vitals Vital Signs Date Temp Pulse Resp B/P (MAP) Pulse Ox O2 O2 Flow FiO2 Time Delivery Rate 02/23/18 98.0 79 20 120/60 100 Nasal 15:04 (80) Cannula 02/23/18 2.0 07:32 Intake and Output 02/22/18 02/22/18 02/23/18 1414:59 22:59 06:59 IntakeIntake Total 550 ml 200 ml OutputOutput Total 600 ml 1100 ml BalanceBalance -50 ml -900 ml Exam Eyes: nl conjunctiva, EOMI, nl lids, nl sclera ENMT: nl external ears & nose, nl lips & teeth, nl nasal mucosa & septum, mucosa pink and moist Neck: supple, non-tender Respiratory: clear to auscultation, normal air movement Cardiovascular: regular rate and rhythm, nl pulses Gastrointestinal: soft, nl liver, spleen, non-tender Musculoskeletal: nl extremities to inspection, nl gait and stance Extremities: normal pulses Results Result Diagram: 02/23/18 0531 02/23/18 0531 SHIRA ORTIZ MD Feb 23, 2018 16:01
--- NOTE | 2018-02-23 16:09 | NUR ---
Nurse Notes Dr. Olvera came at Pt's bedside and d/c'd chest tube. Pt ao x 4 and stable at this time. O2 saturation 100% on 2L NC. Pt denies any shortness of breath. Shows no distress. Will monitor Pt closely. Addendum: 02/23/18 at 1616 by URIEL BEST RN dressing applied by on site is clean, dry and intact. Addendum: 02/23/18 at 1834 by URIEL BEST RN Noted moderate leaking on chest tube site with clear yellow drainage no odor. Dressing reinforced with abd pads. Dr. Olvera paged to make aware. Pt stable at this time time.
--- NOTE | 2018-02-23 19:02 | NUR ---
EOSS Pt ao x 4 and stable at this time. Pt in no distress noted. S/P chest tube, MD came earlier today and d/c'd. Pt denies any shortness of breath. Moderate leaking noted in chest tube site, MD paged no call back. Pt also had and episode of 5 beats of vtach, Pt asymptomatic, Dr. Saleh made aware, no new orders. Call light within reach. Hourly rounding provided. Will endorse to next shift accordingly.
[2018-02-24] VITALS (11 sets, daily range): BP systolic 91–151; BP diastolic 59–90; PULSE 74–150; RESP 18–21
--- NOTE | 2018-02-24 05:54 | NUR ---
EOSS; PT STILL SHORT OF BREATH ON EXERTION ,COUGH AT TIMES PRODUCTIVE. WITH O2 2L ON. FALL PREC OBSERVED BED ALARMS ON. DRESSING TO CT SITE SOAKED WILL CHANGE DRESSING. WILL CONTINUE TO MONITOR PT.
[2018-02-24] MEDS: PANTOPRAZOLE (EC) 40 MG TAB PO SCH (06:13)
[2018-02-24] MEDS: DILTIAZEM 60 MG TAB PO SCH ×3 (06:13→22:38)
[2018-02-24] MEDS: INSULIN ASPART [NOVOLOG] 3 ML PEN SC SCH ×4 (08:00→21:00)
[2018-02-24] MEDS: CEFEPIME 1GM/50 ML (PMX) 50 ML IVPB SCH (08:44)
[2018-02-24] MEDS: predniSONE 10 MG TAB PO SCH (08:44)
[2018-02-24] MEDS: ATENOLOL 50 MG TAB PO SCH ×2 (08:45→20:30)
[2018-02-24] MEDS: APIXABAN 5 MG TABLET PO SCH ×2 (08:45→20:31)
--- NOTE | 2018-02-24 09:35 | CONS ---
Date/Time of Note Date/Time of Note DATE: 02/24/18 TIME: 09:32 Assessment/Plan Assessment/Plan Additional Assessment/Plan Assessment and recommendations; 1. Patient admitted with shortness of breath due to bilateral pleural effusions, status post right thoracentesis with pleural fluid cytology positive for squamous cell carcinoma. 2. Likely left lower lobe postobstructive pneumonia. Versus atelectasis. 3. Chronic atrial fibrillation. 4. Status post right pneumothorax, with development of significant subcutaneous emphysema with marked interval improvement. Status post chest tube removal. Consider stopping antibiotics. Consider discharge. Prognosis is poor. Consider palliative care. Consultation Date/Type/Reason Admit Date/Time Feb 07, 2018 at 13:54 Initial Consult Date Type of Consult Pulmonary/critical care Requesting Provider: FIDEL GAVIN MD 24 HR Interval Summary Free Text/Dictation Patient's condition is stable. Remains awake and alert. Denies any shortness of breath, chest pain, coughing or wheezing. General exam; elderly male, awake alert, currently no distress. Exam/Review of Systems Vital Signs Vitals Vital Signs Date Temp Pulse Resp B/P (MAP) Pulse Ox O2 O2 Flow FiO2 Time Delivery Rate 02/24/18 90 08:00 02/24/18 Nasal 2.0 07:29 Cannula 02/24/18 97.6 18 113/79 100 07:03 (90) Intake and Output 02/23/18 02/23/18 02/24/18 1515:00 23:00 07:00 IntakeIntake Total 850 ml 120 ml OutputOutput Total 1800 ml 800 ml BalanceBalance -950 ml -680 ml Exam HEENT exam; supple neck, no JVD. No lymphadenopathy. Midline trachea. No thyromegaly. Patient has fair dentition. No neck masses. Chest exam; diminished breath sounds left lower lobe. Crepitus involving right chest wall. Right side chest tube has been removed. S1-S2 audible, no murmurs. Irregular rhythm. Abdomen exam; soft, nontender. No organomegaly. Bowel sounds audible. Extremity exam; no edema or clubbing. NET WASHER exam; no focal deficit. ALAN DICKERSON Feb 24, 2018 09:35
--- NOTE | 2018-02-24 11:34 | PN ---
Date/Time of Note Date/Time of Note DATE: 02/24/18 TIME: 11:34 Assessment/Plan VTE Prophylaxis Risk score (from Ns)>0 risk: 6 SCD applied (from Ns): Yes Pharmacological prophylaxis: fondaparinux Lines/Catheters IV [facility]from [facility] Saline Lock Urinary Cath still in place: No Assessment/Plan Hospital Course # Respiratory failure status post intubation on 02/12, post extubation #. Shortness of breath likely secondary to congestive heart failure/chronic obstructive pulmonary disease exacerbation. # right-sided pneumothorax status post thoracentesis, now with chest tube , subcutaneous emphysema, chest tube in place # Large left pleural effusion, status post thoracentesis in the past. Status post thoracentesis on 02/18/18 # History of chronic obstructive pulmonary disease. #. Atrial fibrillation with rapid ventricular response, controlled #. Hypertension. # EKG changes of atrial fibrillation with ST segment changes in the inferior leads. # History of lung cancer status post chemo and radiation.? NEW Lung metastases # History of coronary artery disease. #. Pleural effusion, status post thoracentesis. # Elevated BNP secondary to congestive heart failure. #. Hyponatremia, resolved. # History of peripheral vascular disease. # LEUKOCYTOSIS secondary to steroids # acute on chronic renal failure likely due to prerenal/ATN Overdiuresis, resolved # Mild hyperkalemia, resolved # extemepuffiness around the right eye due to extensive subcutaneous emphysema, and on the soft tissue CT> resolved Assessment/Plan -family caseworker consult -Chest tube removed -worsening anemia -HG A1 C 6.0 -ambulate - Monitor for subcutaneous emphysema - F/U Chest Xray am, same -CW Eliquis -Taper prednisone -wbc tending down to 25>22>16 on vancomycin and cefepime follow-up with ID recs - ? VATS if patient has subcutaneous emphysema per Dr. Olvera - sukumar w diltazem and atenolol - f/u cardiac and pulmonary recs -cw PT -DVt prophylaxis eliquiz BID -GI prophylaxis Protonix po Subjective 24 Hr Interval Summary Constitutional: no complaints, improved Skin: bruising, skin lesions Exam/Review of Systems Vital Signs Vitals Vital Signs Date Temp Pulse Resp B/P (MAP) Pulse Ox O2 O2 Flow FiO2 Time Delivery Rate 02/24/18 90 08:00 12/23/18 Nasal 2.0 07:29 Cannula 12/23/18 97.6 18 113/79 100 07:03 (90) Intake and Output 02/23/18 02/23/18 02/24/18 1515:00 23:00 07:00 IntakeIntake Total 850 ml 120 ml OutputOutput Total 1800 ml 800 ml BalanceBalance -950 ml -680 ml Exam Constitutional: alert, oriented Neck: supple Respiratory: clear to auscultation Gastrointestinal: soft 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: INSPECTOR FINAL ASSEMBLY CONVEYOR LINE II-XII intact Skin: other (pale) JASPER SAHU Feb 24, 2018 11:34
--- NOTE | 2018-02-24 11:57 | CONS ---
Date/Time of Note Date/Time of Note DATE: 02/24/18 TIME: 11:54 Assessment/Plan Assessment/Plan Additional Assessment/Plan 1.AF-rate controlled - better now - rate < 90s. Con't to follow. Much better overall 2.CHF-diastolic acute on chronic - euvolemic by exam, chronic - improved fluid status - chronic, euvolemic now. 3.HTN-reasonable control - will adjust Rx as needed. Treated. 4.Pleural effusion s/p thoracentesis c/b PTX now s/p CT. Now s/p thoracentesis on Left - CT in, surgical team follows. Much better overall. CT REMOVED. 5. Renal failure - god urine output - avoid nephrotomic meds. 6. Leukocytosis - rx with anti-Bx. 7. anemia - no active bleeding 8. SQ emphysema extensive-tracking up into face and around eye, continues to improve Consultation Date/Type/Reason Admit Date/Time Feb 07, 2018 at 13:54 Initial Consult Date Requesting Provider: FIDEL GAVIN MD 24 HR Interval Summary Free Text/Dictation Pt much better - no tachy - CT removed - feels very well. ROS: No fever, no chills, no nausea, no vomiting, no diarrhea/constipation No recent weight changes No chest pain, no PND, no orthopnea - improved SOB No dizziness, blurred vision No thirst, no heat or cold intolerance Exam/Review of Systems Vital Signs Vitals Vital Signs Date Temp Pulse Resp B/P (MAP) Pulse Ox O2 O2 Flow FiO2 Time Delivery Rate 02/24/18 98.1 74 19 91/59 (70) 97 11:45 02/24/18 Nasal 2.0 07:29 Cannula Intake and Output 02/23/18 02/23/18 02/24/18 1515:00 23:00 07:00 IntakeIntake Total 850 ml 120 ml OutputOutput Total 1800 ml 800 ml BalanceBalance -950 ml -680 ml Exam General: WN/WD/NAD, AOx 3 HEENT: Unicetric/atraumatic/EOMI (follows commands) NECK: JVD elevated, no thyromegaly Lymph: no lymphadenopathy HEART: irregular with no S3, II/ systolic murmur at apex LUNGS: Coarse sounds - CT out ABD: soft, NT, ND, +BS : Intact Neuro: non focal SKIN: chronic changes EXT: trace edema EMILY SANTAMARIA MD Feb 24, 2018 11:57
--- NOTE | 2018-02-24 13:44 | CONS ---
Date/Time of Note Date/Time of Note DATE: 02/24/18 TIME: 13:43 Assessment/Plan Assessment/Plan Chief Complaint/Hosp Course Alert feels good eating lunch no fevers overnight status post chest tube discontinued WBC 16.7 neutrophils 79.2 BUN 29 creatinine 1.02 Microbiology: All cultures negative Antimicrobials: Vancomycin cefepime Indwelling: Bar catheter, right chest tube Physical examination: Fragile well-developed elderly man who is awake in no distress. Head atraumatic normocephalic. Sclera nonicteric. Neck is supple. Chest rise symmetrical breath sounds with scattered crackles to the right. Heart: S1-S2. Abdomen soft, bowel sounds present. Extremities without cya nosis. Assessment: 1. Leukocytosis 2. Status post bilateral pneumonia 3. Right pneumothorax, status post chest tube now discontinued 4. History of CVA 5. History of lung cancer 6. Atrial fibrillation Plan: Clinically doing better, pulmonary recommendations noted, we will will discontinue antibiotics and observe Consultation Date/Type/Reason Admit Date/Time Feb 07, 2018 at 13:54 Initial Consult Date Type of Consult id Requesting Provider: FIDEL GAVIN MD Exam/Review of Systems Vital Signs Vitals Vital Signs Date Temp Pulse Resp B/P (MAP) Pulse Ox O2 O2 Flow FiO2 Time Delivery Rate 02/24/18 79 12:00 02/24/18 98.1 19 91/59 (70) 97 11:45 02/24/18 Nasal 2.0 07:29 Cannula Intake and Output 02/23/18 02/23/18 02/24/18 1515:00 23:00 07:00 IntakeIntake Total 850 ml 120 ml OutputOutput Total 1800 ml 800 ml BalanceBalance -950 ml -680 ml SUZANNE DANIELS TRANSIT SPECIALIST Feb 24, 2018 13:44
--- NOTE | 2018-02-24 14:40 | PN ---
Date/Time of Note Date/Time of Note DATE: 02/24/18 TIME: 14:39 Assessment/Plan Lines/Catheters IV Catheter Type (from Nrsg): Saline Lock Bar in Place (from Nrsg): No Assessment/Plan Assessment/Plan DT removed CXR IMPRESSION: 1. Interval removal of right-sided chest tube without definite residual pneumothorax. 2. Large left-sided pleural effusion/atelectasis, unchanged compared to prior exams. will monitor the CXR Subjective 24 Hr Interval Summary Constitutional: improved Pain Control: mild Exam/Review of Systems Vital Signs Vitals Vital Signs Date Temp Pulse Resp B/P (MAP) Pulse Ox O2 O2 Flow FiO2 Time Delivery Rate 02/24/18 79 12:00 02/24/18 98.1 19 91/59 (70) 97 11:45 02/24/18 Nasal 2.0 07:29 Cannula Intake and Output 02/23/18 02/23/18 02/24/18 1515:00 23:00 07:00 IntakeIntake Total 850 ml 120 ml OutputOutput Total 1800 ml 800 ml BalanceBalance -950 ml -680 ml Exam Eyes: nl conjunctiva, EOMI, nl lids, nl sclera ENMT: nl external ears & nose, nl lips & teeth, nl nasal mucosa & septum, mucosa pink and moist Neck: supple, non-tender Respiratory: clear to auscultation, normal air movement Cardiovascular: regular rate and rhythm, nl pulses Results Result Diagram: 02/24/18 0455 02/24/18 0455 SHIRA ORTIZ MD Feb 24, 2018 14:40
--- NOTE | 2018-02-24 18:13 | NUR ---
EOSS Pt ao x 4. Pt stable and in no distress noted throughout the shift. No leaking noted on chest tube site, dressing clean dry and intact. Pt had an episode of 17 beats of vtach earlier today, Pt asymptomatic, Dr. Saleh made aware, no new orders. Call light within reach. Hourly rounding provided. Will endorse to next shift accordingly.
--- NOTE | 2018-02-24 19:08 | CONS ---
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 Now with pleural effusion s/p thoracentesis, complicated by PTX and now with chest tube and SP extubated- -f/u cytology on pleural effusion is negative for malignancy -when he is more stable, check CT chest with contrast -mild leukocytosis likely reactive- 16.7 -mild anemia, suspect due to anemia of chronic disease -once he is more stable and he can have CT chest with contrast will better be able to assess if he has disease recurrence Patient is seen in collaboration with Dr Green Consultation Date/Type/Reason Admit Date/Time Feb 07, 2018 at 13:54 Type of Consult Oncology/ Hematology Reason for Consultation ANEMIA Hx of Present Illness - Feels better - right chest tube DCD - no new events reported last night per staff Constitutional: requiring O2 Eyes: no complaints Respiratory: no complaints Cardiovascular: no complaints Gastrointestinal: no complaints Genitourinary: no complaints Musculoskeletal: no complaints Past Medical History Medications Current Medications IV Flush (NS 3 ml) 3 ml PER PROTOCOL IV ; Start 02/07/18 at 16:30 Ondansetron HCl (Zofran Inj) 4 mg Q6H PRN IV NAUSEA AND/OR VOMITING; Start 02/07/18 at 16:30 Acetaminophen (Tylenol Tab) 650 mg Q6H PRN PO PAIN LEVEL 1-3 OR FEVER; Start 02/07/18 at 16:30 Docusate Sodium (Colace) 100 mg Q12H PRN PO CONSTIPATION Last administered on 02/10/18at 20:07; Admin Dose 100 MG; Start 02/07/18 at 16:30 Diltiazem HCl (Cardizem) 60 mg Q8 PO Last administered on 02/24/18at 14:03; Admin Dose 60 MG; Start 02/07/18 at 17:00 Guaifenesin/ Dextromethorphan (Robitussin Dm Liquid Cup) 30 ml Q4H PRN PO COUGH Last administered on 02/18/18at 22:15; Admin Dose 30 ML; Start 02/09/18 at 12:30 Levalbuterol (Xopenex Neb) 1.25 mg Q4H RESP THERAPY PRN HHN wheezing Last administered on 02/14/18at 14:17; Admin Dose 1.25 MG; Start 02/11/18 at 00:00 Hydralazine HCl (Apresoline) 10 mg Q4H PRN IV SBP>170 Last administered on 02/16/18at 00:07; Admin Dose 10 MG; Start 02/11/18 at 10:30 Miscellaneous Information 1 ea NOTE XX ; Start 02/11/18 at 11:00 Glucose (Glutose) 15 gm Q15M PRN PO DECREASED GLUCOSE; Start 02/11/18 at 11:00 Glucose (Glutose) 22.5 gm Q15M PRN PO DECREASED GLUCOSE; Start 02/11/18 at 11:00 Dextrose (D50w Syringe) 25 ml Q15M PRN IV DECREASED GLUCOSE; Start 02/11/18 at 11:00 Dextrose (D50w Syringe) 50 ml Q15M PRN IV DECREASED GLUCOSE; Start 02/11/18 at 11:00 Glucagon (Glucagen) 1 mg Q15M PRN IM DECREASED GLUCOSE; Start 02/11/18 at 11:00 Glucose (Glutose) 15 gm Q15M PRN BUCCAL DECREASED GLUCOSE; Start 02/11/18 at 11:00 Oxycodone/ Acetaminophen (Percocet (5/ 325)) 1 tab Q4H PRN PO MODERATE PAIN LEVEL 4-6 Last administered on 02/18/18at 08:34; Admin Dose 1 TAB; Start 02/13/18 at 01:00 Lactulose (Enulose) 20 gm Q6H PRN PO CONSTIPATION Last administered on 02/14/18at 14:33; Admin Dose 20 GM; Start 02/14/18 at 14:00 Insulin Aspart (Novolog Insulin Pen) NOVOLOG *MILD* ALGORITHM WITH MEALS BEDTIME SC Last administered on 02/23/18at 20:39; Admin Dose 1 UNIT; Start 02/15/18 at 11:30 Atenolol (Tenormin) 50 mg BID PO Last administered on 02/24/18at 08:45; Admin Dose 50 MG; Start 02/16/18 at 21:00 Apixaban (Eliquis) 2.5 mg BID PO Last administered on 02/24/18at 08:45; Admin Dose 2.5 MG; Start 02/18/18 at 21:00 Prednisone (Prednisone) 10 mg DAILY PO Last administered on 02/24/18at 08:44; Admin Dose 10 MG; Start 02/24/18 at 09:00 Pantoprazole (Protonix Tab) 40 mg DAILY@06 PO Last administered on 02/24/18at 06:13; Admin Dose 40 MG; Start 02/24/18 at 06:00 Allergies: Coded Allergies: No Known Allergy (Unverified , 02/06/16) Past Surgical History Past Surgical Hx: coronary bypass surgery Social History Smoking Status: Current every day smoker Exam/Review of Systems Vital Signs Vitals Vital Signs Date Temp Pulse Resp B/P (MAP) Pulse Ox O2 O2 Flow FiO2 Time Delivery Rate 02/24/18 83 16:00 02/24/18 98.4 21 151/66 99 15:10 (94) 02/24/18 Nasal 2.0 07:29 Cannula Intake and Output 02/23/18 02/23/18 02/24/18 1414:59 22:59 06:59 IntakeIntake Total 850 ml 120 ml OutputOutput Total 1800 ml 800 ml BalanceBalance -950 ml -680 ml Exam Constitutional: alert, oriented, well developed Psych: nl mood/affect Head: atraumatic Eyes: nl conjunctiva, EOMI, nl lids, nl sclera ENMT: nl external ears & nose Neck: non-tender Respiratory: clear to auscultation Cardiovascular: nl pulses, other (s1s2) Gastrointestinal: soft, non-tender Musculoskeletal: nl extremities to inspection Extremities: normal pulses 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: nl mental status, nl speech Skin: nl turgor Lymph: nontender BRYAN CARLIN Feb 24, 2018 19:08
[2018-02-25] VITALS (13 sets, daily range): BP systolic 112–150; BP diastolic 60–72; PULSE 62–99; RESP 17–20
[2018-02-25] MEDS: DILTIAZEM 60 MG TAB PO SCH ×3 (05:49→22:17)
[2018-02-25] MEDS: PANTOPRAZOLE (EC) 40 MG TAB PO SCH (05:49)
--- NOTE | 2018-02-25 06:04 | NUR ---
eoss; pt is resting comfortably no c/o of any pain still coughing on and off productive at times. with shortness of breath upon exertion.o2 3l on sat 94-95%. tele continued to be on atrial fib at 73. will continue plan of care.
[2018-02-25] MEDS: INSULIN ASPART [NOVOLOG] 3 ML PEN SC SCH ×4 (08:00→20:20)
[2018-02-25] MEDS: predniSONE 10 MG TAB PO SCH (09:01)
[2018-02-25] MEDS: APIXABAN 5 MG TABLET PO SCH ×2 (09:01→20:12)
--- NOTE | 2018-02-25 09:01 | CONS ---
Date/Time of Note Date/Time of Note DATE: 02/25/18 TIME: 08:59 Assessment/Plan Assessment/Plan Additional Assessment/Plan Assessment and recommendations; 1. Patient admitted with shortness of breath due to bilateral pleural effusions, status post right thoracentesis with pleural fluid cytology positive for squamous cell carcinoma. 2. Likely left lower lobe postobstructive atelectasis/pneumonia. Patient now off antibiotics. 3. Chronic atrial fibrillation. Continue current supportive care. Consider discharge. Prognosis is poor. Patient is not a candidate for any kind of treatment regarding lung malignancy. Consider palliative care. Consultation Date/Type/Reason Admit Date/Time Feb 07, 2018 at 13:54 Initial Consult Date Type of Consult Pulmonary/critical care Requesting Provider: FIDEL GAVIN MD 24 HR Interval Summary Free Text/Dictation Patient's condition is stable. Denies any shortness breath, chest pain, coughing, wheezing, sputum production or hemoptysis. General exam; elderly male, awake alert, having breakfast. Exam/Review of Systems Vital Signs Vitals Vital Signs Date Temp Pulse Resp B/P (MAP) Pulse Ox O2 O2 Flow FiO2 Time Delivery Rate 02/25/18 62 08:16 02/25/18 Nasal 2.0 07:46 Cannula 02/25/18 98.1 18 150/66 100 07:21 (94) Intake and Output 02/24/18 02/24/18 02/25/18 1515:00 23:00 07:00 IntakeIntake Total 200 ml OutputOutput Total 1350 ml BalanceBalance -1150 ml Exam H EENT exam; supple neck, no JVD. No lymphadenopathy. Midline trachea. No thyromegaly. Pharynx is clear. Patient has fair dentition. Chest exam; diminished breath sounds left lower lung. There is crepitus involving the right anterolateral chest wall. S1-S2 audible, no murmurs. Irregular rhythm. Abdomen exam; soft, no organomegaly. Bowel sounds audible. Extremities no edema or clubbing. PROJECT INTER[employer]IP exam; no focal deficit. ALAN DICKERSON Feb 25, 2018 09:01
[2018-02-25] MEDS: ATENOLOL 50 MG TAB PO SCH ×2 (09:02→20:13)
--- NOTE | 2018-02-25 10:17 | PN ---
Date/Time of Note Date/Time of Note DATE: 02/25/18 TIME: 10:11 Assessment/Plan VTE Prophylaxis Risk score (from Ns)>0 risk: 6 SCD applied (from Ns): No SCD contraindicated: low risk/ambulating Pharmacological prophylaxis: NA/contraindicated Pharm contraindication: low risk/ambulating Lines/Catheters IV Catheter Type (from [facility]): Saline Lock Urinary Cath still in place: No Assessment/Plan Hospital Course ASSESSMENT AND PLAN: This is a 77-year-old male who presented with: # Respiratory failure status post intubation on 1210 this post extubation #. Shortness of breath likely secondary to congestive heart failure/chronic obstructive pulmonary disease exacerbation. # right-sided pneumothorax status post thoracentesis, now with chest tube , subcutanoeus emphysema, chest tube in place s/p removal 2 days ago # Large left pleural effusion, status post thoracentesis in the past. Status post thoracentesis on 1217 # History of chronic obstructive pulmonary disease. #. Atrial fibrillation with rapid ventricular response.controlled #. Hypertension. # EKG changes of atrial fibrillation with ST segment changes in the inferior leads. # History of lung cancer status post chemo and radiation.? NEW Lung metastases # History of coronary artery disease. #. Pleural effusion, status post thoracentesis. # Elevated BNP secondary to congestive heart failure. #. Hyponatremia. # History of peripheral vascular disease. # LEUKOCYTOSIS secondary to steroids # acute on chronic renal failure likely due to prerenal/ATN Overdiuresis, and uptrending continue to monitor urine monitor creatinine, cR 1.8 > trending down> resolved #Mild hyperkalemia #extemepuffiness around the right eye due to extensive subcutaneous emphysema, and on the soft tissue CT> resolved Plan -- chest xray +left sided effusion - sp removal -CW Eliquis -Taper prednisone - off abx wbc 15 - c w diltazem and atenolol - f/u cardiac and pul recs -cw PT per Dr Holder, pt is very comfortable, will hold off thora on left and let sub emphysema heal and will repeat chest xray in 1 week Subjective 24 Hr Interval Summary Free Text/Dictation doing better sitting on side of bed Exam/Review of Systems Vital Signs Vitals Vital Signs Date Temp Pulse Resp B/P (MAP) Pulse Ox O2 O2 Flow FiO2 Time Delivery Rate 02/25/18 62 08:16 02/25/18 Nasal 2.0 07:46 Cannula 02/25/18 98.1 18 150/66 100 07:21 (94) Intake and Output 02/24/18 02/24/18 02/25/18 1515:00 23:00 07:00 IntakeIntake Total 200 ml OutputOutput Total 1350 ml BalanceBalance -1150 ml Exam Constitutional: alert, oriented Neck: supple Respiratory: clear to auscultation Gastrointestinal: soft 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: MANAGER STRATEGIC ALLIANCES II-XII intact Skin: other (pale) some sub cut emphysema resolved FIDEL GAVIN MD Feb 25, 2018 10:17
--- NOTE | 2018-02-25 10:19 | PDOCDIS ---
Discharge Instructions DIAGNOSIS Discharge Diagnosis pleurla efusion pthx sub emphysema CONDITION [id number] Patient Condition: [id number] Fair HOME CARE INSTRUCTIONS: [id number] Diet Instructions: [id number] Low Fat /Cholesterol Swmec3Dc Special Diet: Qedma7c CARB CONTROL ACTIVITY: Jocey4Sn Activity Restrictions: [id number] Slowly Increase Activity Rest between Activity Avoid heavy lifting FOLLOW UP/APPOINTMENTS Follow-up Plan f.u PCP in1 week f./u Dr Holder in1 week repeat Chest xray in 1 week FIDEL GAVIN MD Feb 25, 2018 10:19
--- NOTE | 2018-02-25 11:09 | NUR ---
PT DENILSON [facility] Patient: Sung Santana : 1940 Age/Sex: 77/M Unit#: [id number] Room/Bed: 608/A User: Gay Woods PTA Date: 02/25/18 11:09 Type: PT Technical Record Therapy day number 8 Subjective Denies pain Pain Scale NUMERIC Pain Intensity 0 (0-10) Patient Stated Goal for Pain Relief 0 (0-10) Pain Level Comment denied pain Transfer Training Start Time 10:35 Transfer Sit to Stand Ability Stand by Assist Bed Transfer Ability Stand by Assist Chair Transfer Ability Stand by Assist Transfer Training End Time 10:50 Total Transfer Training Time 15 min (8-127) Gait Training Start Time 10:50 Gait Assist Levels Stand by Assist Assistive Devices Front Wheel Walker Ambulation Distance 50 feet Additional Gait Comments 50'x3. slow johana, dec step length/stride, low foot clearance, forward po Gait Training End Time 11:09 Total Gait Training Treatment Time 19 min (8-127) Static Sitting Balance Good Dynamic Sitting Balance Good Standing Static Balance Fair plus Dynamic Standing Balance Fair Additional Balance Assessments Comments FWW Safety Judgement Fair Activity Tolerance Good Equipment Present A pump Additional Equipment Present 3L O2 via NC Post Treatment Pain Intensity 0 0-10 Quality Indicators SOB Upon Exertion Variance Documentation See comment Total Treament Time 34 min (8-127) Total Minutes 34 Total Units 2 PT Technical Record Comment PT NOTE S: СЕРГЕЙ Zepeda cleared pt for PT. Pt denied pain and agreeable to tx O: Received pt sitting on bedside chair w/ TELESALES PROFESSIONAL present in room. Pretx VS; 108/65 100% on 3L O2, 78bpm. See above for assist levels. Gait training x 50' and presented with slow johana, decreased step length/stride, low foot clearance, forward posture. VC/TC for posturea awareness. Multiple rest breaks d/t fatigue. Returned pt back to room and requested to be seated on bedside chair. Call light/phone within reach. Needs met. Chair alarm on. Left pt w/ TELESALES PROFESSIONAL present in room A: Fair tolerance to tx. SBA throughout tx. Frequent rest breaks during gait training due to fatigue and SOB. O2 supplement applied throughout P: Continue w/ POC and progress as tolerated
--- NOTE | 2018-02-25 11:09 | NUR ---
Discharge planning; Discussed with Patient discharge plan of care of going to [facility] for continued recovery. He is agreeable and would like to go to [facility] "across the street". Inquiry packet collated and faxed to , will await their call back once they have reviewed case. Addendum: 02/26/18 at 0948 by CLAUDY HEBERT RN, CM SNF Follow Up; Spoke with Christa from [facility]; will initiate process to get authorization and call back once they have obtained it.
--- NOTE | 2018-02-25 11:47 | CONS ---
Date/Time of Note Date/Time of Note DATE: 02/25/18 TIME: 11:44 Assessment/Plan Assessment/Plan Additional Assessment/Plan 1.AF-rate controlled - better now - rate < 90s. Con't to follow. Much better overall - rate controlled. 2.CHF-diastolic acute on chronic - euvolemic by exam, chronic - improved fluid status - chronic, euvolemic now. Improved fluid satus. 3.HTN-reasonable control - will adjust Rx as needed. Treated. 4.Pleural effusion s/p thoracentesis c/b PTX now s/p CT. Now s/p thoracentesis on Left - CT in, surgical team follows. Much better overall. CT REMOVED. Con't ambualtion - con't to monitor now. 5. Renal failure - god urine output - avoid nephrotomic meds. Good urine output. 6. Leukocytosis - rx with anti-Bx. 7. anemia - no active bleeding 8. SQ emphysema extensive-tracking up into face and around eye, continues to improve Consultation Date/Type/Reason Admit Date/Time Feb 07, 2018 at 13:54 Initial Consult Date Requesting Provider: FIDEL GAVIN MD 24 HR Interval Summary Free Text/Dictation No acute events - rate controlled - much better SOB. ROS: No fever, no chills, no nausea, no vomiting, no diarrhea/constipation No recent weight changes No chest pain, no PND, no orthopnea - improved SOB No dizziness, blurred vision No thirst, no heat or cold intolerance Exam/Review of Systems Vital Signs Vitals Vital Signs Date Temp Pulse Resp B/P (MAP) Pulse Ox O2 O2 Flow FiO2 Time Delivery Rate 02/25/18 98.5 69 20 147/60 97 11:26 (89) 02/25/18 3.0 10:58 02/25/18 Nasal 07:46 Cannula Intake and Output 02/24/18 02/24/18 02/25/18 1515:00 23:00 07:00 IntakeIntake Total 200 ml OutputOutput Total 1350 ml BalanceBalance -1150 ml Exam General: WN/WD/NAD, AOx 3 HEENT: Unicetric/atraumatic/EOMI (follows commands) NECK: JVD elevated, no thyromegaly Lymph: no lymphadenopathy HEART: regular with no S3, II/ systolic murmur at apex LUNGS: Coarse sounds, much improved now. ABD: soft, NT, ND, +BS : Intact Neuro: non focal SKIN: chronic changes EXT: trace edema EMILY SANTAMARIA MD Feb 25, 2018 11:47
--- NOTE | 2018-02-25 15:09 | CONS ---
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 Now with pleural effusion s/p thoracentesis, complicated by PTX and now with chest tube and SP extubated- -f/u cytology on pleural effusion is negative for malignancy -when he is more stable, check CT chest with contrast -mild leukocytosis likely reactive- 16.7 -mild anemia, suspect due to anemia of chronic disease -once he is more stable and he can have CT chest with contrast will better be able to assess if he has disease recurrence Patient is seen in collaboration with Dr Green Consultation Date/Type/Reason Admit Date/Time Feb 07, 2018 at 13:54 Initial Consult Date 02/10/2108 Type of Consult Oncology/ Hematology Requesting Provider: FIDEL GAVIN MD 24 HR Interval Summary Free Text/Dictation - Feels better; sitting up in chair - right chest tube DCD - no new events reported last night per staff Detailed Summary Eyes: no complaints ENT: no complaints Respiratory: pain (mild pain - sp right chest tube insertin site) Cardiovascular: no complaints Gastrointestinal: no complaints Genitourinary: no complaints Musculoskeletal: restricted range of motion Skin: no complaints Exam/Review of Systems Vital Signs Vitals Vital Signs Date Temp Pulse Resp B/P (MAP) Pulse Ox O2 O2 Flow FiO2 Time Delivery Rate 02/25/18 68 12:10 02/25/18 98.5 20 147/60 97 11:26 (89) 02/25/18 3.0 10:58 02/25/18 Nasal 07:46 Cannula Intake and Output 02/24/18 02/24/18 02/25/18 1515:00 23:00 07:00 IntakeIntake Total 200 ml OutputOutput Total 1350 ml BalanceBalance -1150 ml Exam Constitutional: alert, oriented, well developed Psych: nl mood/affect Head: atraumatic Eyes: nl conjunctiva, EOMI, nl lids, nl sclera ENMT: nl external ears & nose Neck: non-tender Respiratory: diminished breath sounds (sp right chest tube insertin site- DDI) Cardiovascular: nl pulses, other Gastrointestinal: soft, non-tender Musculoskeletal: muscle weakness Extremities: normal pulses 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: nl speech, other (alert/reponsive) Skin: other (sp right chest tube insertin - DDI) Lymph: nontender Medications Medications Current Medications IV Flush (NS 3 ml) 3 ml PER PROTOCOL IV ; Start 02/07/18 at 16:30 Ondansetron HCl (Zofran Inj) 4 mg Q6H PRN IV NAUSEA AND/OR VOMITING; Start 02/07/18 at 16:30 Acetaminophen (Tylenol Tab) 650 mg Q6H PRN PO PAIN LEVEL 1-3 OR FEVER; Start 02/07/18 at 16:30 Docusate Sodium (Colace) 100 mg Q12H PRN PO CONSTIPATION Last administered on 02/10/18at 20:07; Admin Dose 100 MG; Start 02/07/18 at 16:30 Diltiazem HCl (Cardizem) 60 mg Q8 PO Last administered on 02/25/18at 05:49; Admin Dose 60 MG; Start 02/07/18 at 17:00 Guaifenesin/ Dextromethorphan (Robitussin Dm Liquid Cup) 30 ml Q4H PRN PO COUGH Last administered on 02/18/18at 22:15; Admin Dose 30 ML; Start 02/09/18 at 12:30 Levalbuterol (Xopenex Neb) 1.25 mg Q4H RESP THERAPY PRN HHN wheezing Last administered on 02/14/18at 14:17; Admin Dose 1.25 MG; Start 02/11/18 at 00:00 Hydralazine HCl (Apresoline) 10 mg Q4H PRN IV SBP>170 Last administered on 02/16/18at 00:07; Admin Dose 10 MG; Start 02/11/18 at 10:30 Miscellaneous Information 1 ea NOTE XX ; Start 02/11/18 at 11:00 Glucose (Glutose) 15 gm Q15M PRN PO DECREASED GLUCOSE; Start 02/11/18 at 11:00 Glucose (Glutose) 22.5 gm Q15M PRN PO DECREASED GLUCOSE; Start 02/11/18 at 11:00 Dextrose (D50w Syringe) 25 ml Q15M PRN IV DECREASED GLUCOSE; Start 02/11/18 at 11:00 Dextrose (D50w Syringe) 50 ml Q15M PRN IV DECREASED GLUCOSE; Start 02/11/18 at 11:00 Glucagon (Glucagen) 1 mg Q15M PRN IM DECREASED GLUCOSE; Start 02/11/18 at 11:00 Glucose (Glutose) 15 gm Q15M PRN BUCCAL DECREASED GLUCOSE; Start 02/11/18 at 11:00 Oxycodone/ Acetaminophen (Percocet (5/ 325)) 1 tab Q4H PRN PO MODERATE PAIN LEVEL 4-6 Last administered on 02/18/18 08:34; Admin Dose 1 TAB; Start 02/13/18 at 01:00 Lactulose (Enulose) 20 gm Q6H PRN PO CONSTIPATION Last administered on 02/14/18 14:33; Admin Dose 20 GM; Start 02/14/18 at 14:00 Insulin Aspart (Novolog Insulin Pen) NOVOLOG *MILD* ALGORITHM WITH MEALS BEDTIME SC Last administered on 02/23/18 20:39; Admin Dose 1 UNIT; Start 02/15/18 at 11:30 Atenolol (Tenormin) 50 mg BID PO Last administered on 02/25/18 09:02; Admin Dose 50 MG; Start 02/16/18 at 21:00 Apixaban (Eliquis) 2.5 mg BID PO Last administered on 02/25/18 09:01; Admin Dose 2.5 MG; Start 02/18/18 at 21:00 Prednisone (Prednisone) 10 mg DAILY PO Last administered on 02/25/18 09:01; Admin Dose 10 MG; Start 02/24/18 at 09:00 Pantoprazole (Protonix Tab) 40 mg DAILY@06 PO Last administered on 02/25/18 05:49; Admin Dose 40 MG; Start 02/24/18 at 06:00 BRYAN CARLIN Feb 25, 2018 15:09
--- NOTE | 2018-02-25 15:26 | CONS ---
Date/Time of Note Date/Time of Note DATE: 02/25/18 TIME: 15:26 Assessment/Plan Assessment/Plan Chief Complaint/Hosp Course Alert feels good no fevers Microbiology: All cultures negative Indwelling: Bar catheter, right chest tube Physical examination: Fragile well-developed elderly man who is awake in no distress. Head atraumatic normocephalic. Sclera nonicteric. Neck is supple. Chest rise symmetrical breath sounds with scattered crackles to the right. Heart: S1-S2. Abdomen soft, bowel sounds present. Extremities without cyanosis. Assessment: 1. Leukocytosis 2. Status post bilateral pneumonia 3. Right pneumothorax, status post chest tube now discontinued 4. History of CVA 5. History of lung cancer 6. Atrial fibrillation Plan: Remains stable, off antibiotics, [facility] Consultation Date/Type/Reason Admit Date/Time Feb 07, 2018 at 13:54 Initial Consult Date Type of Consult id Requesting Provider: FIDEL GAVIN MD Exam/Review of Systems Vital Signs Vitals Vital Signs Date Temp Pulse Resp B/P (MAP) Pulse Ox O2 O2 Flow FiO2 Time Delivery Rate 02/25/18 98.5 80 19 143/64 100 15:11 (90) 02/25/18 3.0 10:58 02/25/18 Nasal 07:46 Cannula Intake and Output 02/24/18 02/24/18 02/25/18 1515:00 23:00 07:00 IntakeIntake Total 200 ml OutputOutput Total 1350 ml BalanceBalance -1150 ml Medications Medications Current Medications IV Flush (NS 3 ml) 3 ml PER PROTOCOL IV ; Start 02/07/18 at 16:30 Ondansetron HCl (Zofran Inj) 4 mg Q6H PRN IV NAUSEA AND/OR VOMITING; Start 02/07/18 at 16:30 Acetaminophen (Tylenol Tab) 650 mg Q6H PRN PO PAIN LEVEL 1-3 OR FEVER; Start 02/07/18 at 16:30 Docusate Sodium (Colace) 100 mg Q12H PRN PO CONSTIPATION Last administered on 02/10/18at 20:07; Admin Dose 100 MG; Start 02/07/18 at 16:30 Diltiazem HCl (Cardizem) 60 mg Q8 PO Last administered on 02/25/18at 05:49; Admin Dose 60 MG; Start 02/07/18 at 17:00 Guaifenesin/ Dextromethorphan (Robitussin Dm Liquid Cup) 30 ml Q4H PRN PO COUGH Last administered on 02/18/18at 22:15; Admin Dose 30 ML; Start 02/09/18 at 12:30 Levalbuterol (Xopenex Neb) 1.25 mg Q4H RESP THERAPY PRN HHN wheezing Last administered on 02/14/18at 14:17; Admin Dose 1.25 MG; Start 02/11/18 at 00:00 Hydralazine HCl (Apresoline) 10 mg Q4H PRN IV SBP>170 Last administered on 02/16/18at 00:07; Admin Dose 10 MG; Start 02/11/18 at 10:30 Miscellaneous Information 1 ea NOTE XX ; Start 02/11/18 at 11:00 Glucose (Glutose) 15 gm Q15M PRN PO DECREASED GLUCOSE; Start 02/11/18 at 11:00 Glucose (Glutose) 22.5 gm Q15M PRN PO DECREASED GLUCOSE; Start 02/11/18 at 11 :00 Dextrose (D50w Syringe) 25 ml Q15M PRN IV DECREASED GLUCOSE; Start 02/11/18 at 11:00 Dextrose (D50w Syringe) 50 ml Q15M PRN IV DECREASED GLUCOSE; Start 02/11/18 at 11:00 Glucagon (Glucagen) 1 mg Q15M PRN IM DECREASED GLUCOSE; Start 02/11/18 at 11 :00 Glucose (Glutose) 15 gm Q15M PRN BUCCAL DECREASED GLUCOSE; Start 02/11/18 at 11:00 Oxycodone/ Acetaminophen (Percocet (5/ 325)) 1 tab Q4H PRN PO MODERATE PAIN LEVEL 4-6 Last administered on 02/18/18at 08:34; Admin Dose 1 TAB; Start 02/13/18 at 01:00 Lactulose (Enulose) 20 gm Q6H PRN PO CONSTIPATION Last administered on 02/14/18at 14:33; Admin Dose 20 GM; Start 02/14/18 at 14:00 Insulin Aspart (Novolog Insulin Pen) NOVOLOG *MILD* ALGORITHM WITH MEALS BEDTIME SC Last administered on 02/23/18at 20:39; Admin Dose 1 UNIT; Start 02/15/18 at 11:30 Atenolol (Tenormin) 50 mg BID PO Last administered on 02/25/18 09:02; Admin D ose 50 MG; Start 02/16/18 at 21:00 Apixaban (Eliquis) 2.5 mg BID PO Last administered on 02/25/18 09:01; Admin Dose 2.5 MG; Start 02/18/18 at 21:00 Prednisone (Prednisone) 10 mg DAILY PO Last administered on 02/25/18 09:01; Admin Dose 10 MG; Start 02/24/18 at 09:00 Pantoprazole (Protonix Tab) 40 mg DAILY@06 PO Last administered on 02/25/18 05:49; Admin Dose 40 MG; Start 02/24/18 at 06:00 SUZANNE DANIELS NP Feb 25, 2018 15:26
--- NOTE | 2018-02-25 18:20 | PN ---
Date/Time of Note Date/Time of Note DATE: 02/25/18 TIME: 18:19 Assessment/Plan Lines/Catheters IV Catheter Type (from Nrsg): Saline Lock Bar in Place (from Nrsg): No Assessment/Plan Assessment/Plan IMPRESSION: 1. Interval removal of right-sided chest tube without definite residual pneumothorax. 2. Large left-sided pleural effusion/atelectasis, unchanged compared to prior exams. will monitor the CXR Subjective 24 Hr Interval Summary Constitutional: improved Pain Control: mild Exam/Review of Systems Vital Signs Vitals Vital Signs Date Temp Pulse Resp B/P (MAP) Pulse Ox O2 O2 Flow FiO2 Time Delivery Rate 02/25/18 84 17:47 02/25/18 98.5 19 143/64 100 15:11 (90) 02/25/18 3.0 10:58 02/25/18 Nasal 07:46 Cannula Intake and Output 02/24/18 02/24/18 02/25/18 1515:00 23:00 07:00 IntakeIntake Total 200 ml OutputOutput Total 1350 ml BalanceBalance -1150 ml Exam Neck: supple, non-tender Respiratory: clear to auscultation, normal air movement Cardiovascular: regular rate and rhythm, nl pulses Gastrointestinal: soft, nl liver, spleen, non-tender Musculoskeletal: nl extremities to inspection, nl gait and stance Extremities: normal pulses Results Result Diagram: 02/25/18 0459 02/25/18 0459 SHIRA ORTIZ MD Feb 25, 2018 18:20
[2018-02-25] MEDS: GUAIFENESIN/DM 5ML CUP PO PRN (20:46)
[2018-02-26] VITALS (11 sets, daily range): BP systolic 123–152; BP diastolic 60–71; PULSE 60–90; RESP 19–20
[2018-02-26] MEDS: PANTOPRAZOLE (EC) 40 MG TAB PO SCH (05:42)
[2018-02-26] MEDS: DILTIAZEM 60 MG TAB PO SCH ×3 (05:42→22:23)
--- NOTE | 2018-02-26 05:48 | NUR ---
eoss ; pt is resting comfortably still coughing at times productive at times.given cough med ordered. remained a fib with rare PVCs. plan transfer to [facility] awaiting for case management rn to arrange.
[2018-02-26] MEDS: INSULIN ASPART [NOVOLOG] 3 ML PEN SC SCH ×4 (08:00→21:00)
[2018-02-26] MEDS: APIXABAN 5 MG TABLET PO SCH ×2 (08:20→22:23)
[2018-02-26] MEDS: ATENOLOL 50 MG TAB PO SCH ×2 (08:20→22:23)
[2018-02-26] MEDS: predniSONE 10 MG TAB PO SCH (08:21)
--- NOTE | 2018-02-26 09:57 | CONS ---
Date/Time of Note Date/Time of Note DATE: 02/26/18 TIME: 09:54 Assessment/Plan Assessment/Plan Additional Assessment/Plan Assessment and recommendations; 1. Patient admitted with shortness of breath due to bilateral pleural effusions, status post right and left thoracentesis, status post right pneumo thorax with removal of chest tube. Patient having persistent right chest wall crepitus indicative of underlying subcutaneous emphysema, however there has been marked overall clinical improvement. 2. Remote history of left lung squamous cell cancer, status post radiation treatment. 3. Left lower lobe pneumonia/atelectasis. Difficult to rule out radiation induced changes versus recurrent neoplasm with left lower lobe bronchial obstruction. 4. Pleural fluid cytology is negative from recent thoracentesis. Reported as erroneously positive in my previous notes. 5. Atrial fibrillation. Continue current supportive care. Patient will need to have bronchoscopy performed. However in light of recent right pneumothorax I would recommend deferring the procedure until subcutaneous emphysema has completely resolved. As bronchoscopy will entail intubation as well as positive pressure ventilation that would impose high risk for recurrent right pneumothorax. Consultation Date/Type/Reason Admit Date/Time Feb 07, 2018 at 13:54 Initial Consult Date Type of Consult Pulmonary/critical care Requesting Provider: FIDEL GAVIN MD 24 HR Interval Summary Free Text/Dictation Patient's condition is stable. Remains awake and alert. Denies any shortness of breath. General exam; elderly male, awake alert, currently in no distress. Exam/Review of Systems Vital Signs Vitals Vital Signs Date Temp Pulse Resp B/P (MAP) Pulse Ox O2 O2 Flow FiO2 Time Delivery Rate 02/26/18 96.5 77 20 135/63 99 Room Air 08:05 (87) 02/26/18 2.0 07:41 Intake and Output 02/25/18 02/25/18 02/26/18 1515:00 23:00 07:00 IntakeIntake Total 650 ml 200 ml OutputOutput Total 550 ml 1510 ml BalanceBalance 100 ml -1310 ml Exam H HEENT exam; supple neck, no JVD. No lymphadenopathy. Midline trachea. No thyromegaly. Patient has fair dentition. No neck masses. There is complete resolution of fascial subcutaneous emphysema. Chest exam; right chest wall crepitus. Diminished breath sounds left lower lobe. S1-S2 audible, no murmurs. Irregular rhythm. Abdomen exam; soft, no organomegaly. Nontender. Bowel sounds audible. Extremity exam; no edema or clubbing. AUDIT REVIEWER exam; no focal deficit. Medications Medications Current Medications IV Flush (NS 3 ml) 3 ml PER PROTOCOL IV ; Start 02/07/18 at 16:30 Ondansetron HCl (Zofran Inj) 4 mg Q6H PRN IV NAUSEA AND/OR VOMITING; Start 02/07/18 at 16:30 Acetaminophen (Tylenol Tab) 650 mg Q6H PRN PO PAIN LEVEL 1-3 OR FEVER; Start 02/07/18 at 16:30 Docusate Sodium (Colace) 100 mg Q12H PRN PO CONSTIPATION Last administered on 02/10/18at 20:07; Admin Dose 100 MG; Start 02/07/18 at 16:30 Diltiazem HCl (Cardizem) 60 mg Q8 PO Last administered on 02/26/18at 05:42; Admin Dose 60 MG; Start 02/07/18 at 17:00 Guaifenesin/ Dextromethorphan (Robitussin Dm Liquid Cup) 30 ml Q4H PRN PO COUGH Last administered on 02/25/18at 20:46; Admin Dose 30 ML; Start 02/09/18 at 12:30 Levalbuterol (Xopenex Neb) 1.25 mg Q4H RESP THERAPY PRN HHN wheezing Last administered on 02/14/18at 14:17; Admin Dose 1.25 MG; Start 02/11/18 at 00:00 Hydralazine HCl (Apresoline) 10 mg Q4H PRN IV SBP>170 Last administered on 02/16/18at 00:07; Admin Dose 10 MG; Start 02/11/18 at 10:30 Miscellaneous Information 1 ea NOTE XX ; Start 02/11/18 at 11:00 Glucose (Glutose) 15 gm Q15M PRN PO DECREASED GLUCOSE; Start 02/11/18 at 11:00 Glucose (Glutose) 22.5 gm Q15M PRN PO DECREASED GLUCOSE; Start 02/11/18 at 11:00 Dextrose (D50w Syringe) 25 ml Q15M PRN IV DECREASED GLUCOSE; Start 02/11/18 at 11:00 Dextrose (D50w Syringe) 50 ml Q15M PRN IV DECREASED GLUCOSE; Start 02/11/18 at 11:00 Glucagon (Glucagen) 1 mg Q15M PRN IM DECREASED GLUCOSE; Start 02/11/18 at 11:00 Glucose (Glutose) 15 gm Q15M PRN BUCCAL DECREASED GLUCOSE; Start 02/11/18 at 11:00 Oxycodone/ Acetaminophen (Percocet (5/ 325)) 1 tab Q4H PRN PO MODERATE PAIN LEVEL 4-6 Last administered on 02/18/18 08:34; Admin Dose 1 TAB; Start 02/13/18 at 01:00 Lactulose (Enulose) 20 gm Q6H PRN PO CONSTIPATION Last administered on 02/14/18 14:33; Admin Dose 20 GM; Start 02/14/18 at 14:00 Insulin Aspart (Novolog Insulin Pen) NOVOLOG *MILD* ALGORITHM WITH MEALS BEDTIME SC Last administered on 02/25/18 20:20; Admin Dose 2 UNIT; Start 02/15/18 at 11:30 Atenolol (Tenormin) 50 mg BID PO Last administered on 02/26/18 08:20; Admin Dose 50 MG; Start 02/16/18 at 21:00 Apixaban (Eliquis) 2.5 mg BID PO Last administered on 02/26/18 08:20; Admin Dose 2.5 MG; Start 02/18/18 at 21:00 Prednisone (Prednisone) 10 mg DAILY PO Last administered on 02/26/18 08:21; Admin Dose 10 MG; Start 02/24/18 at 09:00 Pantoprazole (Protonix Tab) 40 mg DAILY@06 PO Last administered on 02/26/18 05:42; Admin Dose 40 MG; Start 02/24/18 at 06:00 ALAN DICKERSON Feb 26, 2018 09:57
--- NOTE | 2018-02-26 11:18 | CONS ---
Date/Time of Note Date/Time of Note DATE: 02/26/18 TIME: 11:16 Assessment/Plan Assessment/Plan Chief Complaint/Hosp Course All noted, looks comfortable, no fevers Microbiology: All cultures negative Indwelling: Bar catheter, right chest tube Physical examination: Fragile well-developed elderly man who is awake in no distress. Head atraumatic normocephalic. Sclera nonicteric. Neck is supple. Chest rise symmetrical breath sounds with scattered crackles to the right. Heart: S1-S2. Abdomen soft, bowel sounds present. Extremities without cyanosis . Assessment: 1. Leukocytosis 2. Status post bilateral pneumonia 3. Right pneumothorax, status post chest tube discontinued, with residual sc emphysema 4. History of CVA 5. History of lung cancer 6. Atrial fibrillation 7. Large Left effusion Plan: Stable, pulmonary rec-s noted==> patient will need to have bronchoscopy performed once subcutaneous emphysema has completely resolved. Continue observing off abx Consultation Date/Type/Reason Admit Date/Time Feb 07, 2018 at 13:54 Initial Consult Date Type of Consult id Requesting Provider: FIDEL GAVIN MD Exam/Review of Systems Vital Signs Vitals Vital Signs Date Temp Pulse Resp B/P (MAP) Pulse Ox O2 O2 Flow FiO2 Time Delivery Rate 02/26/18 96.5 77 20 135/63 99 Room Air 08:05 (87) 02/26/18 2.0 07:41 Intake and Output 02/25/18 02/25/18 02/26/18 1515:00 23:00 07:00 IntakeIntake Total 650 ml 200 ml OutputOutput Total 550 ml 1510 ml BalanceBalance 100 ml -1310 ml Medications Medications Current Medications IV Flush (NS 3 ml) 3 ml PER PROTOCOL IV ; Start 02/07/18 at 16:30 Ondansetron HCl (Zofran Inj) 4 mg Q6H PRN IV NAUSEA AND/OR VOMITING; Start 02/07/18 at 16:30 Acetaminophen (Tylenol Tab) 650 mg Q6H PRN PO PAIN LEVEL 1-3 OR FEVER; Start 02/07/18 at 16:30 Docusate Sodium (Colace) 100 mg Q12H PRN PO CONSTIPATION Last administered on 02/10/18at 20:07; Admin Dose 100 MG; Start 02/07/18 at 16:30 Diltiazem HCl (Cardizem) 60 mg Q8 PO Last administered on 02/26/18at 05:42; Admin Dose 60 MG; Start 02/07/18 at 17:00 Guaifenesin/ Dextromethorphan (Robitussin Dm Liquid Cup) 30 ml Q4H PRN PO COUGH Last administered on 02/25/18at 20:46; Admin Dose 30 ML; Start 02/09/18 at 12:30 Levalbuterol (Xopenex Neb) 1.25 mg Q4H RESP THERAPY PRN HHN wheezing Last administered on 02/14/18at 14:17; Admin Dose 1.25 MG; Start 02/11/18 at 00:00 Hydralazine HCl (Apresoline) 10 mg Q4H PRN IV SBP>170 Last administered on 02/16/18at 00:07; Admin Dose 10 MG; Start 02/11/18 at 10:30 Miscellaneous Information 1 ea NOTE XX ; Start 02/11/18 at 11:00 Glucose (Glutose) 15 gm Q15M PRN PO DECREASED GLUCOSE; Start 02/11/18 at 11:00 Glucose (Glutose) 22.5 gm Q15M PRN PO DECREASED GLUCOSE; Start 02/11/18 at 11:00 Dextrose (D50w Syringe) 25 ml Q15M PRN IV DECREASED GLUCOSE; Start 02/11/18 at 11:00 Dextrose (D50w Syringe) 50 ml Q15M PRN IV DECREASED GLUCOSE; Start 02/11/18 at 11:00 Glucagon (Glucagen) 1 mg Q15M PRN IM DECREASED GLUCOSE; Start 02/11/18 at 11:00 Glucose (Glutose) 15 gm Q15M PRN BUCCAL DECREASED GLUCOSE; Start 02/11/18 at 11:00 Oxycodone/ Acetaminophen (Percocet (5/ 325)) 1 tab Q4H PRN PO MODERATE PAIN LEVEL 4-6 Last administered on 02/18/18at 08:34; Admin Dose 1 TAB; Start 02/13/18 at 01:00 Lactulose (Enulose) 20 gm Q6H PRN PO CONSTIPATION Last administered on 02/14/18at 14:33; Admin Dose 20 GM; Start 02/14/18 at 14:00 Insulin Aspart (Novolog Insulin Pen) NOVOLOG *MILD* ALGORITHM WITH MEALS BEDTIME SC Last administered on 02/25/18 20:20; Admin Dose 2 UNIT; Start 02/15/18 at 11:30 Atenolol (Tenormin) 50 mg BID PO Last administered on 02/26/18 08:20; Admin Dose 50 MG; Start 02/16/18 at 21:00 Apixaban (Eliquis) 2.5 mg BID PO Last administered on 02/26/18 08:20; Admin Dose 2.5 MG; Start 02/18/18 at 21:00 Prednisone (Prednisone) 10 mg DAILY PO Last administered on 02/26/18 08:21; Admin Dose 10 MG; Start 02/24/18 at 09:00 Pantoprazole (Protonix Tab) 40 mg DAILY@06 PO Last administered on 02/26/18 05:42; Admin Dose 40 MG; Start 02/24/18 at 06:00 SUZANNE DANIELS NP Feb 26, 2018 11:18
--- NOTE | 2018-02-26 12:55 | CONS ---
Date/Time of Note Date/Time of Note DATE: 02/26/18 TIME: 12:53 Assessment/Plan Assessment/Plan Additional Assessment/Plan 1.AF-rate controlled - better now - rate < 90s. Con't to follow. Much better overall - rate controlled. Stable overall. 2.CHF-diastolic acute on chronic - euvolemic by exam, chronic - improved fluid status - chronic, euvolemic now. Improved fluid satus. Much better now. 3.HTN-reasonable control - will adjust Rx as needed. Treated. 4.Pleural effusion s/p thoracentesis c/b PTX now s/p CT. Now s/p thoracentesis on Left - CT in, surgical team follows. Much better overall. CT REMOVED. Con't ambulation - con't to monitor now. Will Rx with PT. 5. Renal failure - god urine output - avoid nephrotomic meds. Good urine output. 6. Leukocytosis - rx with anti-Bx. Improved. 7. anemia - no active bleeding 1.AF-rate controlled - better now - rate < 90s. Con't to follow. Much better overall - rate controlled. 8. SQ emphysema extensive-tracking up into face and around eye, continues to improve RESOLVING Consultation Date/Type/Reason Admit Date/Time Feb 07, 2018 at 13:54 Initial Consult Date Requesting Provider: FIDEL GAVIN MD 24 HR Interval Summary Free Text/Dictation Pt con't to improve - no CP now - will monitor clinically. ROS: No fever, no chills, no nausea, no vomiting, no diarrhea/constipation No recent weight changes No chest pain, no PND, no orthopnea - much better SOB No dizziness, blurred vision No thirst, no heat or cold intolerance Exam/Review of Systems Vital Signs Vitals Vital Signs Date Temp Pulse Resp B/P (MAP) Pulse Ox O2 O2 Flow FiO2 Time Delivery Rate 02/26/18 74 12:01 02/26/18 96.3 20 123/60 98 Room Air 11:51 (81) 02/26/18 2.0 07:41 Intake and Output 02/25/18 02/25/18 02/26/18 1515:00 23:00 07:00 IntakeIntake Total 650 ml 200 ml OutputOutput Total 550 ml 1510 ml BalanceBalance 100 ml -1310 ml Exam General: WN/WD/NAD, AOx 3 HEENT: Unicetric/atraumatic/EOMI (follows commands) NECK: JVD elevated, no thyromegaly Lymph: no lymphadenopathy HEART: regular with no S3, II/ systolic murmur at apex LUNGS: Coarse sounds - CT out ABD: soft, NT, ND, +BS : Intact Neuro: non focal SKIN: chronic changes EXT: trace edema Medications Medications Current Medications IV Flush (NS 3 ml) 3 ml PER PROTOCOL IV ; Start 02/07/18 at 16:30 Ondansetron HCl (Zofran Inj) 4 mg Q6H PRN IV NAUSEA AND/OR VOMITING; Start 02/07/18 at 16:30 Acetaminophen (Tylenol Tab) 650 mg Q6H PRN PO PAIN LEVEL 1-3 OR FEVER; Start 02/07/18 at 16:30 Docusate Sodium (Colace) 100 mg Q12H PRN PO CONSTIPATION Last administered on 02/10/18at 20:07; Admin Dose 100 MG; Start 02/07/18 at 16:30 Diltiazem HCl (Cardizem) 60 mg Q8 PO Last administered on 02/26/18at 05:42; Admin Dose 60 MG; Start 02/07/18 at 17:00 Guaifenesin/ Dextromethorphan (Robitussin Dm Liquid Cup) 30 ml Q4H PRN PO COUGH Last administered on 02/25/18at 20:46; Admin Dose 30 ML; Start 02/09/18 at 12:30 Levalbuterol (Xopenex Neb) 1.25 mg Q4H RESP THERAPY PRN HHN wheezing Last administered on 02/14/18at 14:17; Admin Dose 1.25 MG; Start 02/11/18 at 00:00 Hydralazine HCl (Apresoline) 10 mg Q4H PRN IV SBP>170 Last administered on 02/16/18at 00:07; Admin Dose 10 MG; Start 02/11/18 at 10:30 Miscellaneous Information 1 ea NOTE XX ; Start 02/11/18 at 11:00 Glucose (Glutose) 15 gm Q15M PRN PO DECREASED GLUCOSE; Start 02/11/18 at 11:00 Glucose (Glutose) 22.5 gm Q15M PRN PO DECREASED GLUCOSE; Start 02/11/18 at 11:00 Dextrose (D50w Syringe) 25 ml Q15M PRN IV DECREASED GLUCOSE; Start 02/11/18 at 11:00 Dextrose (D50w Syringe) 50 ml Q15M PRN IV DECREASED GLUCOSE; Start 02/11/18 at 11:00 Glucagon (Glucagen) 1 mg Q15M PRN IM DECREASED GLUCOSE; Start 02/11/18 at 11:00 Glucose (Glutose) 15 gm Q15M PRN BUCCAL DECREASED GLUCOSE; Start 02/11/18 at 11:00 Oxycodone/ Acetaminophen (Percocet (5/ 325)) 1 tab Q4H PRN PO MODERATE PAIN LEVEL 4-6 Last administered on 02/18/18 08:34; Admin Dose 1 TAB; Start 02/13/18 at 01:00 Lactulose (Enulose) 20 gm Q6H PRN PO CONSTIPATION Last administered on 02/14/18 14:33; Admin Dose 20 GM; Start 02/14/18 at 14:00 Insulin Aspart (Novolog Insulin Pen) NOVOLOG *MILD* ALGORITHM WITH MEALS BEDTIME SC Last administered on 02/25/18 20:20; Admin Dose 2 UNIT; Start 02/15/18 at 11:30 Atenolol (Tenormin) 50 mg BID PO Last administered on 02/26/18 08:20; Admin Dose 50 MG; Start 02/16/18 at 21:00 Apixaban (Eliquis) 2.5 mg BID PO Last administered on 02/26/18 08:20; Admin Dose 2.5 MG; Start 02/18/18 at 21:00 Prednisone (Prednisone) 10 mg DAILY PO Last administered on 02/26/18 08:21; Admin Dose 10 MG; Start 02/24/18 at 09:00 Pantoprazole (Protonix Tab) 40 mg DAILY@06 PO Last administered on 02/26/18 05:42; Admin Dose 40 MG; Start 02/24/18 at 06:00 EMILY SANTAMARIA MD Feb 26, 2018 12:55
[2018-02-26] MEDS: GUAIFENESIN/DM 5ML CUP PO PRN (13:34)
--- NOTE | 2018-02-26 14:03 | NUR ---
RN Notes: Notified by [email or web address], pt had 13 beats of vtach, pt asymptomatic, denies chest pain. B/P 137/61, HR 80, RR 18, SPO2 97% on O2 2L NC. Message to Dr. Sullivan awaiting response. Addendum: 02/26/18 at 1505 by VERONA ROGERS RN No new orders received from Dr. Balderrama, covering for Dr. Hall.
--- NOTE | 2018-02-26 15:54 | CONS ---
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 Now with pleural effusion s/p thoracentesis, complicated by PTX and now with chest tube and SP extubated- -f/u cytology on pleural effusion is negative for malignancy -when he is more stable, check CT chest with contrast -mild leukocytosis likely reactive- 16.7 -mild anemia, suspect due to anemia of chronic disease -once he is more stable and he can have CT chest with contrast will better be able to assess if he has disease recurrence Patient is seen in collaboration with Dr Green Consultation Date/Type/Reason Admit Date/Time Feb 07, 2018 at 1:54 pm Initial Consult Date 02/10/2108 Type of Consult Oncology/ Hematology Reason for Consultation Right Lung mass Requesting Provider: FIDEL GAVIN MD 24 HR Interval Summary Free Text/Dictation - feels better - Right chest- chest tube dcd - no new issues reported by staff- Constitutional: improved Detailed Summary Eyes: no complaints ENT: no complaints Respiratory: no complaints Cardiovascular: no complaints Gastrointestinal: no complaints Genitourinary: no complaints Musculoskeletal: restricted range of motion Skin: no complaints Neurologic: no complaints Exam/Review of Systems Vital Signs Vitals Vital Signs Date Temp Pulse Resp B/P (MAP) Pulse Ox O2 O2 Flow FiO2 Time Delivery Rate 02/26/18 96.8 73 20 143/63 100 Nasal 15:39 (89) Cannula 02/26/18 2.0 07:41 Intake and Output 02/25/18 02/25/18 02/26/18 1515:00 23:00 07:00 IntakeIntake Total 650 ml 200 ml OutputOutput Total 550 ml 1510 ml BalanceBalance 100 ml -1310 ml Exam Constitutional: alert, oriented, well developed Psych: nl mood/affect Head: atraumatic Eyes: nl conjunctiva, EOMI, nl lids ENMT: nl external ears & nose Neck: non-tender Respiratory: diminished breath sounds (bilaterally), other (sp right chest tube insertin site- DDI) Cardiovascular: nl pulses, other (s1s2) Gastrointestinal: soft, non-tender Musculoskeletal: muscle weakness, range of motion Extremities: normal pulses 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: nl mental status, nl speech Skin: other (sp right chest tube insertin site- DDI) Lymph: nontender Medications Medications Current Medications IV Flush (NS 3 ml) 3 ml PER PROTOCOL IV ; Start 02/07/18 at 16:30 Ondansetron HCl (Zofran Inj) 4 mg Q6H PRN IV NAUSEA AND/OR VOMITING; Start 02/07/18 at 16:30 Acetaminophen (Tylenol Tab) 650 mg Q6H PRN PO PAIN LEVEL 1-3 OR FEVER; Start 02/07/18 at 16:30 Docusate Sodium (Colace) 100 mg Q12H PRN PO CONSTIPATION Last administered on 02/10/18at 20:07; Admin Dose 100 MG; Start 02/07/18 at 16:30 Diltiazem HCl (Cardizem) 60 mg Q8 PO Last administered on 02/26/18at 13:24; Admin Dose 60 MG; Start 02/07/18 at 17:00 Guaifenesin/ Dextromethorphan (Robitussin Dm Liquid Cup) 30 ml Q4H PRN PO COUGH Last administered on 02/26/18at 13:34; Admin Dose 30 ML; Start 02/09/18 at 12:30 Levalbuterol (Xopenex Neb) 1.25 mg Q4H RESP THERAPY PRN HHN wheezing Last administered on 02/14/18at 14:17; Admin Dose 1.25 MG; Start 02/11/18 at 00:00 Hydralazine HCl (Apresoline) 10 mg Q4H PRN IV SBP>170 Last administered on 02/16/18at 00:07; Admin Dose 10 MG; Start 02/11/18 at 10:30 Miscellaneous Information 1 ea NOTE XX ; Start 02/11/18 at 11:00 Glucose (Glutose) 15 gm Q15M PRN PO DECREASED GLUCOSE; Start 02/11/18 at 11:00 Glucose (Glutose) 22.5 gm Q15M PRN PO DECREASED GLUCOSE; Start 02/11/18 at 11:00 Dextrose (D50w Syringe) 25 ml Q15M PRN IV DECREASED GLUCOSE; Start 02/11/18 at 11:00 Dextrose (D50w Syringe) 50 ml Q15M PRN IV DECREASED GLUCOSE; Start 02/11/18 at 11:00 Glucagon (Glucagen) 1 mg Q15M PRN IM DECREASED GLUCOSE; Start 02/11/18 at 11:00 Glucose (Glutose) 15 gm Q15M PRN BUCCAL DECREASED GLUCOSE; Start 02/11/18 at 11:00 Oxycodone/ Acetaminophen (Percocet (5/ 325)) 1 tab Q4H PRN PO MODERATE PAIN LEVEL 4-6 Last administered on 02/18/18 08:34; Admin Dose 1 TAB; Start 02/13/18 at 01:00 Lactulose (Enulose) 20 gm Q6H PRN PO CONSTIPATION Last administered on 02/14/18 14:33; Admin Dose 20 GM; Start 02/14/18 at 14:00 Insulin Aspart (Novolog Insulin Pen) NOVOLOG *MILD* ALGORITHM WITH MEALS BEDTIME SC Last administered on 02/25/18 20:20; Admin Dose 2 UNIT; Start 02/15/18 at 11:30 Atenolol (Tenormin) 50 mg BID PO Last administered on 02/26/18 08:20; Admin Dose 50 MG; Start 02/16/18 at 21:00 Apixaban (Eliquis) 2.5 mg BID PO Last administered on 02/26/18 08:20; Admin Dose 2.5 MG; Start 02/18/18 at 21:00 Prednisone (Prednisone) 10 mg DAILY PO Last administered on 02/26/18 08:21; Admin Dose 10 MG; Start 02/24/18 at 09:00 Pantoprazole (Protonix Tab) 40 mg DAILY@06 PO Last administered on 02/26/18 05:42; Admin Dose 40 MG; Start 02/24/18 at 06:00 BRYAN CARLIN Feb 26, 2018 15:54
--- NOTE | 2018-02-26 17:25 | PN ---
Date/Time of Note Date/Time of Note DATE: 02/26/18 TIME: 17:24 Assessment/Plan VTE Prophylaxis Risk score (from Ns)>0 risk: 6 SCD applied (from Ns): No SCD contraindicated: other Pharmacological prophylaxis: other Lines/Catheters IV Catheter Type (from Nrsg): Saline Lock Urinary Cath still in place: No Assessment/Plan Hospital Course 1.AF-rate controlled 2.CHF-diastolic acute on chronic 3.HTN-reasonable control 4.Pleural effusion s/p thoracentesis c/b PTX now s/p CT 5. Renal failure 6. Leukocytosis 7. anemia 8. SQ emphysema extensive-tracking up into face and around eye getting better plan per pul and surgery antibiotic will need snf Result Diagram: 02/25/18 0459 02/25/18 0459 Results 24hrs Laboratory Tests Test 02/25/18 20:16 02/26/18 02:18 02/26/18 08:02 02/26/18 12:05 Bedside Glucose 245 H 129 99 128 Test 02/26/18 17:14 Bedside Glucose 259 H Subjective 24 Hr Interval Summary Respiratory: cough (+), shortness of breath (+) Cardiovascular: no complaints Exam/Review of Systems Vital Signs Vitals Vital Signs Date Temp Pulse Resp B/P (MAP) Pulse Ox O2 O2 Flow FiO2 Time Delivery Rate 02/26/18 84 16:01 02/26/18 96.8 20 143/63 100 Nasal 15:39 (89) Cannula 02/26/18 2.0 07:41 Intake and Output 02/25/18 02/25/18 02/26/18 1515:00 23:00 07:00 IntakeIntake Total 650 ml 200 ml OutputOutput Total 550 ml 1510 ml BalanceBalance 100 ml -1310 ml Exam Neck: supple Respiratory: diminished breath sounds Cardiovascular: regular rate and rhythm Gastrointestinal: soft, bowel sounds (+) Extremities: No edema Medications Medications Current Medications IV Flush (NS 3 ml) 3 ml PER PROTOCOL IV ; Start 02/07/18 at 16:30 Ondansetron HCl (Zofran Inj) 4 mg Q6H PRN IV NAUSEA AND/OR VOMITING; Start 02/07/18 at 16:30 Acetaminophen (Tylenol Tab) 650 mg Q6H PRN PO PAIN LEVEL 1-3 OR FEVER; Start 02/07/18 at 16:30 Docusate Sodium (Colace) 100 mg Q12H PRN PO CONSTIPATION Last administered on 02/10/18at 20:07; Admin Dose 100 MG; Start 02/07/18 at 16:30 Diltiazem HCl (Cardizem) 60 mg Q8 PO Last administered on 02/26/18at 13:24; Admin Dose 60 MG; Start 02/07/18 at 17:00 Guaifenesin/ Dextromethorphan (Robitussin Dm Liquid Cup) 30 ml Q4H PRN PO COUGH Last administered on 02/26/18at 13:34; Admin Dose 30 ML; Start 02/09/18 at 12:30 Levalbuterol (Xopenex Neb) 1.25 mg Q4H RESP THERAPY PRN HHN wheezing Last administered on 02/14/18at 14:17; Admin Dose 1.25 MG; Start 02/11/18 at 00:00 Hydralazine HCl (Apresoline) 10 mg Q4H PRN IV SBP>170 Last administered on 02/16/18at 00:07; Admin Dose 10 MG; Start 02/11/18 at 10:30 Miscellaneous Information 1 ea NOTE XX ; Start 02/11/18 at 11:00 Glucose (Glutose) 15 gm Q15M PRN PO DECREASED GLUCOSE; Start 02/11/18 at 11:00 Glucose (Glutose) 22.5 gm Q15M PRN PO DECREASED GLUCOSE; Start 02/11/18 at 11:00 Dextrose (D50w Syringe) 25 ml Q15M PRN IV DECREASED GLUCOSE; Start 02/11/18 at 11:00 Dextrose (D50w Syringe) 50 ml Q15M PRN IV DECREASED GLUCOSE; Start 02/11/18 at 11:00 Glucagon (Glucagen) 1 mg Q15M PRN IM DECREASED GLUCOSE; Start 02/11/18 at 11:00 Glucose (Glutose) 15 gm Q15M PRN BUCCAL DECREASED GLUCOSE; Start 02/11/18 at 11:00 Oxycodone/ Acetaminophen (Percocet (5/ 325)) 1 tab Q4H PRN PO MODERATE PAIN LEVEL 4-6 Last administered on 02/18/18at 08:34; Admin Dose 1 TAB; Start 02/13/18 at 01:00 Lactulose (Enulose) 20 gm Q6H PRN PO CONSTIPATION Last administered on 02/14/18 14:33; Admin Dose 20 GM; Start 02/14/18 at 14:00 Insulin Aspart (Novolog Insulin Pen) NOVOLOG *MILD* ALGORITHM WITH MEALS BEDTIME SC Last administered on 02/25/18 20:20; Admin Dose 2 UNIT; Start 02/15/18 at 11:30 Atenolol (Tenormin) 50 mg BID PO Last administered on 02/26/18 08:20; Admin Dose 50 MG; Start 02/16/18 at 21:00 Apixaban (Eliquis) 2.5 mg BID PO Last administered on 02/26/18 08:20; Admin Dose 2.5 MG; Start 02/18/18 at 21:00 Prednisone (Prednisone) 10 mg DAILY PO Last administered on 02/26/18 08:21; Admin Dose 10 MG; Start 02/24/18 at 09:00 Pantoprazole (Protonix Tab) 40 mg DAILY@06 PO Last administered on 02/26/18 05:42; Admin Dose 40 MG; Start 02/24/18 at 06:00 KARLEY DEAN MD Feb 26, 2018 17:25
--- NOTE | 2018-02-26 17:52 | NUR ---
EOSS: PT AO x 4, Afib on tele, on 2L O2 NC, O2 sat WNL. Stable at this time, awaiting transfer to SNF, pending authorization.
[2018-02-27] VITALS (12 sets, daily range): BP systolic 122–156; BP diastolic 56–94; PULSE 73–96; RESP 20–24
[2018-02-27] MEDS: PANTOPRAZOLE (EC) 40 MG TAB PO SCH (05:45)
[2018-02-27] MEDS: DILTIAZEM 60 MG TAB PO SCH ×3 (05:47→21:48)
--- NOTE | 2018-02-27 07:59 | NUR ---
EOSS Pt. a/o x4. Denied any pain upon my shift. Hourly rounding completed. Bed alarm on, bed in lowest position. Call light within reach. Pending transfer to SNF.
[2018-02-27] MEDS: INSULIN ASPART [NOVOLOG] 3 ML PEN SC SCH ×4 (08:00→22:02)
[2018-02-27] MEDS: predniSONE 10 MG TAB PO SCH (08:23)
[2018-02-27] MEDS: APIXABAN 5 MG TABLET PO SCH ×2 (08:23→20:23)
[2018-02-27] MEDS: ATENOLOL 50 MG TAB PO SCH ×2 (08:23→20:23)
--- NOTE | 2018-02-27 09:45 | NUR ---
PT note Therapy day number 9 Subjective Denies pain Pain Scale NUMERIC Pain Intensity 0 (0-10) Patient Stated Goal for Pain Relief 0 (0-10) Pain Level Comment denies pain Transfer Sit to Stand Ability Supervised Bed Transfer Ability Supervised Chair Transfer Ability Supervised Additional Mobility Comments with FWW Gait Training Start Time 09:45 Gait Assist Levels Minimum Assist Assistive Devices Single Point Cane Ambulation Distance 15 feet Additional Gait Comments performed 15' min A with SPC, 20'x2 SBA with railing, 125'with FWW SBA Gait Training End Time 10:27 Total Gait Training Treatment Time 42 min (8-127) Static Sitting Balance Good Dynamic Sitting Balance Good Standing Static Balance Good Dynamic Standing Balance Fair Additional Balance Assessments Comments with use of unilateral UE support Safety Judgement Good Activity Tolerance Fair Equipment Present IV pump Additional Equipment Present 2L O2 Post Treatment Pain Intensity 0 0-10 Quality Indicators SOB Upon Exertion Variance Documentation See note Total Treament Time 42 min (8-127) Total Minutes 42 Total Units 3 PT Technical Record Comment S: Pt in bedside chair, agreeable to PT intervention. Pt cleared for activity per RN O: PT intervention completed, pt returned back to bedside chair following therapy intervention with call light within reach and chair alarm activated. Spoke to RN regarding pt response to activity and PT plan of care. Patient desaturates with activity, to 86% improves with cues to 100% on 2L O2. Patient performed gait training at length to wean off FWW and improve confidence A: Patient presents with improved mobility throughout however anxious when removing FWW assist. Patient presents with poor sequencing and limited balance with SPC use, however patient confidence appears as limiting factor. With gait on railing, patient able to use RUE minimally while presenting with fair sequencing and safety. Patient could continue to benefit from skilled inpatient PT to improve balance and safety with SPC. P: Progress SPC gait training as tolerated
--- NOTE | 2018-02-27 09:50 | CONS ---
Date/Time of Note Date/Time of Note DATE: 02/27/18 TIME: 09:48 Assessment/Plan Assessment/Plan Assessment/Plan Assessment and recommendations; 1. Patient admitted with shortness of breath due to bilateral pleural effusions status post bilateral thoracentesis. 2. Right pneumothorax with interval improvement. Chest tube removed. Patient however has persistent right chest wall subcutaneous emphysema. 3. Remote history of left lung squamous cell cancer. 4. Left upper lobe pneumonia/atelectasis possibly due to endobronchial lesion versus post radiation changes. 5. Chronic atrial fibrillation. Continue on supportive care. As outlined in my prior notes, patient will need to have a bronchoscopy performed once right chest wall subcutaneous emphysema has resolved. Patient is at high risk for intubation because of history of recent pneumothorax. And I would recommend at least a 1 week healing. Before attempting bronchoscopy. Result Diagram: 02/27/18 0510 02/27/18 0510 Results 24hrs Laboratory Tests Test 02/26/18 12:05 02/26/18 17:14 02/26/18 21:26 02/27/18 05:10 Bedside Glucose 128 259 H 167 White Blood 14.4 H Count Red Blood Count 2.96 L Hemoglobin 9.2 L Hematocrit 27.4 L Mean Corpuscular 92.6 Volume Mean Corpuscular 31.1 Hemoglobin Mean Corpuscular 33.6 Hemoglobin Naz nt Red Cell 13.9 Distribution Width Platelet Count 169 Mean Platelet 9.9 Volume Immature 1.000 H Granulocytes % Neutrophils % 74.4 Lymphocytes % 14.4 L Monocytes % 8.9 Eosinophils % 1.2 Basophils % 0.1 Nucleated Red 0.0 Blood Cells % Immature 0.140 H Granulocytes # Neutrophils # 10.7 H Lymphocytes # 2.1 Monocytes # 1.3 H Eosinophils # 0.2 Basophils # 0.0 Nucleated Red 0.0 Blood Cells # Sodium Level 134 L Potassium Level 4.3 Chloride Level 99 Carbon Dioxide 27 Level Anion Gap 8 Blood Urea 24 H Nitrogen Creatinine 1.17 Est Glomerular Filtrat Rate mL/min Glucose Level 106 Calcium Level 8.3 L Total Bilirubin 0.4 Direct Bilirubin 0.00 Indirect 0.4 Bilirubin Aspartate Amino 23 Transf (AST/SGOT ) Alanine 38 Aminotransferase (ALT/SGPT) Alkaline 94 Phosphatase Total Protein 5.3 L Albumin 2.8 L Globulin 2.50 Albumin/Globulin 1.12 Ratio Test 02/27/18 07:59 Bedside Glucose 112 Consultation Date/Type/Reason Admit Date/Time Feb 07, 2018 at 13:54 Initial Consult Date Type of Consult Pulmonary/critical care Requesting Provider: FIDEL GAVIN MD 24 HR Interval Summary Free Text/Dictation Patient's condition is stable. Remains awake and alert. Denies any shortness of breath. General exam; elderly male, awake alert, currently in no distress. Exam/Review of Systems Vital Signs Vitals Vital Signs Date Temp Pulse Resp B/P (MAP) Pulse Ox O2 O2 Flow FiO2 Time Delivery Rate 02/27/18 96 08:37 02/27/18 97.6 24 156/94 100 Nasal 07:41 (114) Cannula 02/27/18 2.0 07:34 Intake and Output 02/26/18 02/26/18 02/27/18 1414:59 22:59 06:59 IntakeIntake Total 1000 ml OutputOutput Total 500 ml BalanceBalance 500 ml Exam H EENT exam; supple neck, no JVD. No lymphadenopathy. Midline trachea. No thyromegaly. Patient has fair dentition. No neck masses. Chest exam; crepitus involving right anterolateral chest wall. Diminished breath sounds left lower lobe. S1-S2 audible, no murmurs. Irregular rhythm. Abdomen exam; soft, nontender. No organomegaly. Bowel sounds audible. Extremity exam; peripheral edema clubbing. [employer] exam; no focal deficit. Medications Medications Current Medications IV Flush (NS 3 ml) 3 ml PER PROTOCOL IV ; Start 02/07/18 at 16:30 Ondansetron HCl (Zofran Inj) 4 mg Q6H PRN IV NAUSEA AND/OR VOMITING; Start 02/07/18 at 16:30 Acetaminophen (Tylenol Tab) 650 mg Q6H PRN PO PAIN LEVEL 1-3 OR FEVER; Start 02/07/18 at 16:30 Docusate Sodium (Colace) 100 mg Q12H PRN PO CONSTIPATION Last administered on 02/10/18at 20:07; Admin Dose 100 MG; Start 02/07/18 at 16:30 Diltiazem HCl (Cardizem) 60 mg Q8 PO Last administered on 02/27/18at 05:47; Admin Dose 60 MG; Start 02/07/18 at 17:00 Guaifenesin/ Dextromethorphan (Robitussin Dm Liquid Cup) 30 ml Q4H PRN PO COUGH Last administered on 02/26/18at 13:34; Admin Dose 30 ML; Start 02/09/18 at 12:30 Levalbuterol (Xopenex Neb) 1.25 mg Q4H RESP THERAPY PRN HHN wheezing Last administered on 02/14/18at 14:17; Admin Dose 1.25 MG; Start 02/11/18 at 00:00 Hydralazine HCl (Apresoline) 10 mg Q4H PRN IV SBP>170 Last administered on 02/16/18at 00:07; Admin Dose 10 MG; Start 02/11/18 at 10:30 Miscellaneous Information 1 ea NOTE XX ; Start 02/11/18 at 11:00 Glucose (Glutose) 15 gm Q15M PRN PO DECREASED GLUCOSE; Start 02/11/18 at 11:00 Glucose (Glutose) 22.5 gm Q15M PRN PO DECREASED GLUCOSE; Start 02/11/18 at 11:00 Dextrose (D50w Syringe) 25 ml Q15M PRN IV DECREASED GLUCOSE; Start 02/11/18 at 11:00 Dextrose (D50w Syringe) 50 ml Q15M PRN IV DECREASED GLUCOSE; Start 02/11/18 at 11:00 Glucagon (Glucagen) 1 mg Q15M PRN IM DECREASED GLUCOSE; Start 02/11/18 at 11:00 Glucose (Glutose) 15 gm Q15M PRN BUCCAL DECREASED GLUCOSE; Start 02/11/18 at 11:00 Oxycodone/ Acetaminophen (Percocet (5/ 325)) 1 tab Q4H PRN PO MODERATE PAIN LE SHELLY 4-6 Last administered on 02/18/18at 08:34; Admin Dose 1 TAB; Start 02/13/18 at 01:00 Lactulose (Enulose) 20 gm Q6H PRN PO CONSTIPATION Last administered on 02/14/18at 14:33; Admin Dose 20 GM; Start 02/14/18 at 14:00 Insulin Aspart (Novolog Insulin Pen) NOVOLOG *MILD* ALGORITHM WITH MEALS BED TIME SC Last administered on 02/26/18at 17:24; Admin Dose 3 UNIT; Start 02/15/18 at 11:30 Atenolol (Tenormin) 50 mg BID PO Last administered on 02/27/18at 08:23; Admin Dose 50 MG; Start 02/16/18 at 21:00 Apixaban (Eliquis) 2.5 mg BID PO Last administered on 02/27/18at 08:23; Admin Dose 2.5 MG; Start 02/18/18 at 21:00 Prednisone (Prednisone) 10 mg DAILY PO Last administered on 02/27/18at 08:23; Admin Dose 10 MG; Start 02/24/18 at 09:00 Pantoprazole (Protonix Tab) 40 mg DAILY@06 PO Last administered on 02/27/18at 05:45; Admin Dose 40 MG; Start 02/24/18 at 06:00 ALAN DICKERSON Feb 27, 2018 09:50
--- NOTE | 2018-02-27 10:30 | PN ---
Date/Time of Note Date/Time of Note DATE: 02/26/18 TIME: 10:30 Assessment/Plan Lines/Catheters IV Catheter Type (from Nrs): Saline Lock Bar in Place (from Nrsg): No Assessment/Plan Assessment/Plan IMPRESSION: 1. Interval removal of right-sided chest tube without definite residual pneumothorax. 2. Large left-sided pleural effusion/atelectasis, unchanged compared to prior exams. will monitor the CXR Subjective 24 Hr Interval Summary Constitutional: no complaints, improved, ambulates, BM, flatus, urine output Exam/Review of Systems Vital Signs Vitals Vital Signs Date Temp Pulse Resp B/P (MAP) Pulse Ox O2 O2 Flow FiO2 Time Delivery Rate 02/27/18 96 08:37 02/27/18 97.6 24 156/94 100 Nasal 07:41 (114) Cannula 02/27/18 2.0 07:34 Intake and Output 02/26/18 02/26/18 02/27/18 1515:00 23:00 07:00 IntakeIntake Total 1000 ml OutputOutput Total 500 ml BalanceBalance 500 ml Exam Eyes: nl conjunctiva, EOMI, nl lids, nl sclera ENMT: nl external ears & nose, nl lips & teeth, nl nasal mucosa & septum, mucosa pink and moist Neck: supple, non-tender Respiratory: clear to auscultation, normal air movement Cardiovascular: regular rate and rhythm, nl pulses Results Result Diagram: 02/27/18 0510 02/27/18 0510 SHIRA ORTIZ MD Feb 27, 2018 10:30
--- NOTE | 2018-02-27 10:30 | PN ---
Date/Time of Note Date/Time of Note DATE: 02/27/18 TIME: 10:28 Assessment/Plan Lines/Catheters IV Catheter Type (from Nrsg): Saline Lock Bar in Place (from Nrsg): No Assessment/Plan Assessment/Plan IMPRESSION: SP Right CT placement SQ Emphysema resolving CXR 1. Interval removal of right-sided chest tube without definite residual pneumothorax. 2. Large left-sided pleural effusion/atelectasis, unchanged compared to prior exams. will monitor the CXR Subjective 24 Hr Interval Summary Constitutional: no complaints, improved, ambulates, BM, flatus, urine output Pain Control: mild Exam/Review of Systems Vital Signs Vitals Vital Signs Date Temp Pulse Resp B/P (MAP) Pulse Ox O2 O2 Flow FiO2 Time Delivery Rate 02/27/18 96 08:37 02/27/18 97.6 24 156/94 100 Nasal 07:41 (114) Cannula 02/27/18 2.0 07:34 Intake and Output 02/26/18 02/26/18 02/27/18 1414:59 22:59 06:59 IntakeIntake Total 1000 ml OutputOutput Total 500 ml BalanceBalance 500 ml Exam Eyes: nl conjunctiva, EOMI, nl lids, nl sclera ENMT: nl external ears & nose, nl lips & teeth, nl nasal mucosa & septum, mucosa pink and moist Neck: supple, non-tender Respiratory: clear to auscultation, normal air movement Cardiovascular: regular rate and rhythm, nl pulses Musculoskeletal: nl extremities to inspection, nl gait and stance Results Result Diagram: 02/27/18 0510 02/27/18 0510 SHIRA ORTIZ MD Feb 27, 2018 10:30
--- NOTE | 2018-02-27 10:39 | PN ---
Date/Time of Note Date/Time of Note DATE: 02/27/18 TIME: 10:36 Assessment/Plan VTE Prophylaxis Risk score (from Nsg)>0 risk: 6 SCD applied (from Nsg): No SCD contraindicated: low risk/ambulating Pharmacological prophylaxis: apixaban Lines/Catheters IV Catheter Type (from Nrs): Saline Lock Urinary Cath still in place: No Assessment/Plan Hospital Course ASSESSMENT AND PLAN: This is a 77-year-old male who presented with: # Respiratory failure status post intubation on 1211 this post extubation #. Shortness of breath likely secondary to congestive heart failure/chronic obstructive pulmonary disease exacerbation. # right-sided pneumothorax status post thoracentesis, now with chest tube , subcutanoeus emphysema, chest tube in place s/p removal 2 days ago # Large left pleural effusion, status post thoracentesis in the past. Status post thoracentesis on 1217 # History of chronic obstructive pulmonary disease. #. Atrial fibrillation with rapid ventricular response.controlled #. Hypertension. # EKG changes of atrial fibrillation with ST segment changes in the inferior leads. # History of lung cancer status post chemo and radiation.? NEW Lung metastases # History of coronary artery disease. #. Pleural effusion, status post thoracentesis. # Elevated BNP secondary to congestive heart failure. #. Hyponatremia. # History of peripheral vascular disease. # LEUKOCYTOSIS secondary to steroids # acute on chronic renal failure likely due to prerenal/ATN Overdiuresis, and uptrending continue to monitor urine monitor creatinine, cR 1.8 > trending down> resolved #Mild hyperkalemia #extemepuffiness around the right eye due to extensive subcutaneous emphysema, and on the soft tissue CT> resolved Plan -- chest xray +left sided effusion - sp removal -CW Eliquis -Taper prednisone - off abx wbc 15 - c w diltazem and atenolol - f/u cardiac and pul recs -cw PT per Dr Holder, pt is very comfortable, will hold off thora on left and let sub emphysema heal and will repeat chest xray in 1 week P[er Dr Holder , pt atient will need to have a bronchoscopy performed once right chest wall subcutaneous emphysema has resolved. Patient is at high risk for intubation because of history of recent pneumothorax. And I would recommend at least a 1 week healing. Before attempting bronchoscopy. dc SNIF today Result Diagram: 02/27/18 0510 02/27/18 0510 Results 24hrs Laboratory Tests Test 02/26/18 12:05 02/26/18 17:14 02/26/18 21:26 02/27/18 05:10 Bedside Glucose 128 259 H 167 White Blood 14.4 H Count Red Blood Count 2.96 L Hemoglobin 9.2 L Hematocrit 27.4 L Mean Corpuscular 92.6 Volume Mean Corpuscular 31.1 Hemoglobin Mean Corpuscular 33.6 Hemoglobin Naz nt Red Cell 13.9 Distribution Width Platelet Count 169 Mean Platelet 9.9 Volume Immature 1.000 H Granulocytes % Neutrophils % 74.4 Lymphocytes % 14.4 L Monocytes % 8.9 Eosinophils % 1.2 Basophils % 0.1 Nucleated Red 0.0 Blood Cells % Immature 0.140 H Granulocytes # Neutrophils # 10.7 H Lymphocytes # 2.1 Monocytes # 1.3 H Eosinophils # 0.2 Basophils # 0.0 Nucleated Red 0.0 Blood Cells # Sodium Level 134 L Potassium Level 4.3 Chloride Level 99 Carbon Dioxide 27 Level Anion Gap 8 Blood Urea 24 H Nitrogen Creatinine 1.17 Est Glomerular Filtrat Rate mL/min Glucose Level 106 Calcium Level 8.3 L Total Bilirubin 0.4 Direct Bilirubin 0.00 Indirect 0.4 Bilirubin Aspartate Amino 23 Transf (AST/SGOT ) Alanine 38 Aminotransferase (ALT/SGPT) Alkaline 94 Phosphatase Total Protein 5.3 L Albumin 2.8 L Globulin 2.50 Albumin/Globulin 1.12 Ratio Test 02/27/18 07:59 Bedside Glucose 112 Subjective 24 Hr Interval Summary Free Text/Dictation Pt doing well, waiting for SNIF per pul will need bronch as OPD Exam/Review of Systems Vital Signs Vitals Vital Signs Date Temp Pulse Resp B/P (MAP) Pulse Ox O2 O2 Flow FiO2 Time Delivery Rate 02/27/18 96 08:37 02/27/18 97.6 24 156/94 100 Nasal 07:41 (114) Cannula 02/27/18 2.0 07:34 Intake and Output 02/26/18 02/26/18 02/27/18 1515:00 23:00 07:00 IntakeIntake Total 1000 ml OutputOutput Total 500 ml BalanceBalance 500 ml Exam Exam Neck: supple Respiratory: diminished breath sounds Cardiovascular: regular rate and rhythm Gastrointestinal: soft, bowel sounds (+) Extremities: No edema Medications Medications Current Medications IV Flush (NS 3 ml) 3 ml PER PROTOCOL IV ; Start 02/07/18 at 16:30 Ondansetron HCl (Zofran Inj) 4 mg Q6H PRN IV NAUSEA AND/OR VOMITING; Start 02/07/18 at 16:30 Acetaminophen (Tylenol Tab) 650 mg Q6H PRN PO PAIN LEVEL 1-3 OR FEVER; Start 02/07/18 at 16:30 Docusate Sodium (Colace) 100 mg Q12H PRN PO CONSTIPATION Last administered on 02/10/18at 20:07; Admin Dose 100 MG; Start 02/07/18 at 16:30 Diltiazem HCl (Cardizem) 60 mg Q8 PO Last administered on 02/27/18at 05:47; Admin Dose 60 MG; Start 02/07/18 at 17:00 Guaifenesin/ Dextromethorphan (Robitussin Dm Liquid Cup) 30 ml Q4H PRN PO COUGH Last administered on 02/26/18at 13:34; Admin Dose 30 ML; Start 02/09/18 at 12:30 Levalbuterol (Xopenex Neb) 1.25 mg Q4H RESP THERAPY PRN HHN wheezing Last administered on 02/14/18at 14:17; Admin Dose 1.25 MG; Start 02/11/18 at 00:00 Hydralazine HCl (Apresoline) 10 mg Q4H PRN IV SBP>170 Last administered on 02/16/18at 00:07; Admin Dose 10 MG; Start 02/11/18 at 10:30 Miscellaneous Information 1 ea NOTE XX ; Start 02/11/18 at 11:00 Glucose (Glutose) 15 gm Q15M PRN PO DECREASED GLUCOSE; Start 02/11/18 at 11:00 Glucose (Glutose) 22.5 gm Q15M PRN PO DECREASED GLUCOSE; Start 02/11/18 at 11:00 Dextrose (D50w Syringe) 25 ml Q15M PRN IV DECREASED GLUCOSE; Start 02/11/18 at 11:00 Dextrose (D50w Syringe) 50 ml Q15M PRN IV DECREASED GLUCOSE; Start 02/11/18 at 11:00 Glucagon (Glucagen) 1 mg Q15M PRN IM DECREASED GLUCOSE; Start 02/11/18 at 11:00 Glucose (Glutose) 15 gm Q15M PRN BUCCAL DECREASED GLUCOSE; Start 02/11/18 at 11:00 Oxycodone/ Acetaminophen (Percocet (5/ 325)) 1 tab Q4H PRN PO MODERATE PAIN LEVEL 4-6 Last administered on 02/18/18at 08:34; Admin Dose 1 TAB; Start at 01:00 Lactulose (Enulose) 20 gm Q6H PRN PO CONSTIPATION Last administered on 02/14/18 14:33; Admin Dose 20 GM; Start 02/14/18 at 14:00 Insulin Aspart (Novolog Insulin Pen) NOVOLOG *MILD* ALGORITHM WITH MEALS BEDTIME SC Last administered on 02/26/18 17:24; Admin Dose 3 UNIT; Start 02/15/18 at 11:30 Atenolol (Tenormin) 50 mg BID PO Last administered on 02/27/18 08:23; Admin Dose 50 MG; Start 02/16/18 at 21:00 Apixaban (Eliquis) 2.5 mg BID PO Last administered on 02/27/18 08:23; Admin Dose 2.5 MG; Start 02/18/18 at 21:00 Prednisone (Prednisone) 10 mg DAILY PO Last administered on 02/27/18 08:23; Admin Dose 10 MG; Start 02/24/18 at 09:00 Pantoprazole (Protonix Tab) 40 mg DAILY@06 PO Last administered on 02/27/18 05:45; Admin Dose 40 MG; Start 02/24/18 at 06:00 FIDEL GAVIN MD Feb 27, 2018 10:39
--- NOTE | 2018-02-27 12:13 | NUR ---
GEMMA NOTE DISCHARGE PLAN S/W MD AND PT IS CLEAR FOR DISCHARGE, CM F/U WITH [place] AND AT THIS TIME PER [facility] NO MALE BED. CM FORWARDED CLINICAL VIA [employer] TO [facility], [facility], [facility] AND WILL FOLLOW UP LATER IN REGARD TO ACCEPTANCE. CHRIS LUNDBERG RN, CM EXT [phone] Addendum: 02/27/18 at 1543 by DOLLY LUNDBERG RN, CM PT HAS BEEN ACCEPTED AT [facility],PENDING AUTH AT THIS TIME.
--- NOTE | 2018-02-27 12:38 | CONS ---
Date/Time of Note Date/Time of Note DATE: 02/27/18 TIME: 12:36 Assessment/Plan Assessment/Plan Assessment/Plan 1.AF-rate controlled - better now - rate < 90s. Con't to follow. Much better overall - rate controlled. Stable overall. On Eliquis. 2.CHF-diastolic acute on chronic - euvolemic by exam, chronic - improved fluid status - chronic, euvolemic now. Improved fluid satus. Much better now. 3.HTN-reasonable control - will adjust Rx as needed. Treated. 4.Pleural effusion s/p thoracentesis c/b PTX now s/p CT. Now s/p thoracentesis on Left - CT in, surgical team follows. Much better overall. CT REMOVED. Con't a mbulation - con't to monitor now. Will Rx with PT. CXR with effusion - but feels much better. 5. Renal failure - god urine output - avoid nephrotomic meds. Good urine output. 6. Leukocytosis - rx with anti-Bx. Improved. 7. anemia - no active bleeding 1.AF-rate controlled - better now - rate < 90s. Con't to follow. Much better overall - rate controlled. 8. SQ emphysema extensive-tracking up into face and around eye, continues to improve RESOLVING Result Diagram: 02/27/18 0510 02/27/18 0510 Results 24hrs Laboratory Tests Test 02/26/18 17:14 02/26/18 21:26 02/27/18 05:10 02/27/18 07:59 Bedside Glucose 259 H 167 112 White Blood 14.4 H Count Red Blood Count 2.96 L Hemoglobin 9.2 L Hematocrit 27.4 L Mean Corpuscular 92.6 Volume Mean Corpuscular 31.1 Hemoglobin Mean Corpuscular 33.6 Hemoglobin Anz nt Red Cell 13.9 Distribution Width Platelet Count 169 Mean Platelet 9.9 Volume Immature 1.000 H Granulocytes % Neutrophils % 74.4 Lymphocytes % 14.4 L Monocytes % 8.9 Eosinophils % 1.2 Basophils % 0.1 Nucleated Red 0.0 Blood Cells % Immature 0.140 H Granulocytes # Neutrophils # 10.7 H Lymphocytes # 2.1 Monocytes # 1.3 H Eosinophils # 0.2 Basophils # 0.0 Nucleated Red 0.0 Blood Cells # Sodium Level 134 L Potassium Level 4.3 Chloride Level 99 Carbon Dioxide 27 Level Anion Gap 8 Blood Urea 24 H Nitrogen Creatinine 1.17 Est Glomerular Filtrat Rate mL/min Glucose Level 106 Calcium Level 8.3 L Total Bilirubin 0.4 Direct Bilirubin 0.00 Indirect 0.4 Bilirubin Aspartate Amino 23 Transf (AST/SGOT ) Alanine 38 Aminotransferase (ALT/SGPT) Alkaline 94 Phosphatase Total Protein 5.3 L Albumin 2.8 L Globulin 2.50 Albumin/Globulin 1.12 Ratio Test 02/27/18 11:29 Bedside Glucose 92 Consultation Date/Type/Reason Admit Date/Time Feb 07, 2018 at 13:54 Initial Consult Date Requesting Provider: FIDEL GAVIN MD 24 HR Interval Summary Free Text/Dictation Much better overall - not in CHF by exam - will monitor clinically now. ROS: No fever, no chills, no nausea, no vomiting, no diarrhea/constipation No recent weight changes No chest pain, no PND, no orthopnea - much improved SOB. No dizziness, blurred vision No thirst, no heat or cold intolerance Exam/Review of Systems Vital Signs Vitals Vital Signs Date Temp Pulse Resp B/P (MAP) Pulse Ox O2 O2 Flow FiO2 Time Delivery Rate 02/27/18 75 12:06 02/27/18 97.3 20 122/56 100 Nasal 11:31 (78) Cannula 02/27/18 2.0 07:34 Intake and Output 02/26/18 02/26/18 02/27/18 1515:00 23:00 07:00 IntakeIntake Total 1000 ml OutputOutput Total 500 ml BalanceBalance 500 ml Exam General: WN/WD/NAD, AOx 3 HEENT: Unicetric/atraumatic/EOMI ( follow commands) NECK: JVD elevated, no thyromegaly Lymph: no lymphadenopathy HEART: irregular with no S3, II/ systolic murmur at apex, PMI L LUNGS: Coarse sounds ABD: soft, NT, ND, +BS : Intact Neuro: non focal SKIN: chronic changes EXT: trace edema Medications Medications Current Medications IV Flush (NS 3 ml) 3 ml PER PROTOCOL IV ; Start 02/07/18 at 16:30 Ondansetron HCl (Zofran Inj) 4 mg Q6H PRN IV NAUSEA AND/OR VOMITING; Start 02/07/18 at 16:30 Acetaminophen (Tylenol Tab) 650 mg Q6H PRN PO PAIN LEVEL 1-3 OR FEVER; Start 02/07/18 at 16:30 Docusate Sodium (Colace) 100 mg Q12H PRN PO CONSTIPATION Last administered on 02/10/18at 20:07; Admin Dose 100 MG; Start 02/07/18 at 16:30 Diltiazem HCl (Cardizem) 60 mg Q8 PO Last administered on 02/27/18at 05:47; Admin Dose 60 MG; Start 02/07/18 at 17:00 Guaifenesin/ Dextromethorphan (Robitussin Dm Liquid Cup) 30 ml Q4H PRN PO COUGH Last administered on 02/26/18at 13:34; Admin Dose 30 ML; Start 02/09/18 at 12:30 Levalbuterol (Xopenex Neb) 1.25 mg Q4H RESP THERAPY PRN HHN wheezing Last administered on 02/14/18at 14:17; Admin Dose 1.25 MG; Start 02/11/18 at 00:00 Hydralazine HCl (Apresoline) 10 mg Q4H PRN IV SBP>170 Last administered on 02/16/18at 00:07; Admin Dose 10 MG; Start 02/11/18 at 10:30 Miscellaneous Information 1 ea NOTE XX ; Start 02/11/18 at 11:00 Glucose (Glutose) 15 gm Q15M PRN PO DECREASED GLUCOSE; Start 02/11/18 at 11:00 Glucose (Glutose) 22.5 gm Q15M PRN PO DECREASED GLUCOSE; Start 02/11/18 at 11:00 Dextrose (D50w Syringe) 25 ml Q15M PRN IV DECREASED GLUCOSE; Start 02/11/18 at 11:00 Dextrose (D50w Syringe) 50 ml Q15M PRN IV DECREASED GLUCOSE; Start 02/11/18 at 11:00 Glucagon (Glucagen) 1 mg Q15M PRN IM DECREASED GLUCOSE; Start 02/11/18 at 11:00 Glucose (Glutose) 15 gm Q15M PRN BUCCAL DECREASED GLUCOSE; Start 02/11/18 at 11:00 Oxycodone/ Acetaminophen (Percocet (5/ 325)) 1 tab Q4H PRN PO MODERATE PAIN LEVEL 4-6 Last administered on 02/18/18at 08:34; Admin Dose 1 TAB; Start 02/13/18 at 01:00 Lactulose (Enulose) 20 gm Q6H PRN PO CONSTIPATION Last administered on 02/14/18 at 14:33; Admin Dose 20 GM; Start 02/14/18 at 14:00 Insulin Aspart (Novolog Insulin Pen) NOVOLOG *MILD* ALGORITHM WITH MEALS BEDTIME SC Last administered on 02/26/18at 17:24; Admin Dose 3 UNIT; Start 02/15/18 at 11:30 Atenolol (Tenormin) 50 mg BID PO Last administered on 02/27/18at 08:23; Admin Dose 50 MG; Start 02/16/18 at 21:00 Apixaban (Eliquis) 2.5 mg BID PO Last administered on 02/27/18at 08:23; Admin Dose 2.5 MG; Start 02/18/18 at 21:00 Prednisone (Prednisone) 10 mg DAILY PO Last administered on 02/27/18at 08:23; Admin Dose 10 MG; Start 02/24/18 at 09:00 Pantoprazole (Protonix Tab) 40 mg DAILY@06 PO Last administered on 02/27/18at 05:45; Admin Dose 40 MG; Start 02/24/18 at 06:00 EMILY SANTAMARIA MD Feb 27, 2018 12:38
--- NOTE | 2018-02-27 13:37 | CONS ---
Date/Time of Note Date/Time of Note DATE: 02/27/18 TIME: 13:36 Assessment/Plan Assessment/Plan Hospital Course Patient is alert sitting up in a chair, looks comfortable on nasal cannula, no fevers WBC 14.4 no shift no bands BUN 24 creatinine 1.17 Microbiology: All cultures negative Indwelling: Bar catheter, right chest tube Physical examination: Fragile well-developed elderly man who is awake in no distress. Head atraumatic normocephalic. Sclera nonicteric. Neck is supple. Chest rise symmetrical breath sounds with scattered crackles to the right. Heart: S1-S2. Abdomen soft, bowel sounds present. Extremities without cyanosis. Assessment: 1. Leukocytosis 2. Status post bilateral pneumonia 3. Right pneumothorax, status post chest tube discontinued, with residual sc emphysema 4. History of CVA 5. History of lung cancer 6. Atrial fibrillation 7. Large Left effusion Plan: Remains stable, pulmonary rec-s noted==> patient will need to have bronchoscopy performed once subcutaneous emphysema has completely resolved. Continue observing off abx, CTS rec-s Result Diagram: 02/27/18 0510 02/27/18 0510 Results 24hrs Laboratory Tests Test 02/26/18 17:14 02/26/18 21:26 02/27/18 05:10 02/27/18 07:59 Bedside Glucose 259 H 167 112 White Blood 14.4 H Count Red Blood Count 2.96 L Hemoglobin 9.2 L Hematocrit 27.4 L Mean Corpuscular 92.6 Volume Mean Corpuscular 31.1 Hemoglobin Mean Corpuscular 33.6 Hemoglobin Naz nt Red Cell 13.9 Distribution Width Platelet Count 169 Mean Platelet 9.9 Volume Immature 1.000 H Granulocytes % Neutrophils % 74.4 Lymphocytes % 14.4 L Monocytes % 8.9 Eosinophils % 1.2 Basophils % 0.1 Nucleated Red 0.0 Blood Cells % Immature 0.140 H Granulocytes # Neutrophils # 10.7 H Lymphocytes # 2.1 Monocytes # 1.3 H Eosinophils # 0.2 Basophils # 0.0 Nucleated Red 0.0 Blood Cells # Sodium Level 134 L Potassium Level 4.3 Chloride Level 99 Carbon Dioxide 27 Level Anion Gap 8 Blood Urea 24 H Nitrogen Creatinine 1.17 Est Glomerular Filtrat Rate mL/min Glucose Level 106 Calcium Level 8.3 L Total Bilirubin 0.4 Direct Bilirubin 0.00 Indirect 0.4 Bilirubin Aspartate Amino 23 Transf (AST/SGOT ) Alanine 38 Aminotransferase (ALT/SGPT) Alkaline 94 Phosphatase Total Protein 5.3 L Albumin 2.8 L Globulin 2.50 Albumin/Globulin 1.12 Ratio Test 02/27/18 11:29 Bedside Glucose 92 Consultation Date/Type/Reason Admit Date/Time Feb 07, 2018 at 13:54 Initial Consult Date Type of Consult id Requesting Provider: FIDEL GAVIN MD Exam/Review of Systems Vital Signs Vitals Vital Signs Date Temp Pulse Resp B/P (MAP) Pulse Ox O2 O2 Flow FiO2 Time Delivery Rate 02/27/18 75 12:06 02/27/18 97.3 20 122/56 100 Nasal 11:31 (78) Cannula 02/27/18 2.0 07:34 Intake and Output 02/26/18 02/26/18 02/27/18 1515:00 23:00 07:00 IntakeIntake Total 1000 ml OutputOutput Total 500 ml BalanceBalance 500 ml Medications Medications Current Medications IV Flush (NS 3 ml) 3 ml PER PROTOCOL IV ; Start 02/07/18 at 16:30 Ondansetron HCl (Zofran Inj) 4 mg Q6H PRN IV NAUSEA AND/OR VOMITING; Start 02/07/18 at 16:30 Acetaminophen (Tylenol Tab) 650 mg Q6H PRN PO PAIN LEVEL 1-3 OR FEVER; Start 02/07/18 at 16:30 Docusate Sodium (Colace) 100 mg Q12H PRN PO CONSTIPATION Last administered on 02/10/18at 20:07; Admin Dose 100 MG; Start 02/07/18 at 16:30 Diltiazem HCl (Cardizem) 60 mg Q8 PO Last administered on 02/27/18at 05:47; Admin Dose 60 MG; Start 02/07/18 at 17:00 Guaifenesin/ Dextromethorphan (Robitussin Dm Liquid Cup) 30 ml Q4H PRN PO COUGH Last administered on 02/26/18at 13:34; Admin Dose 30 ML; Start 02/09/18 at 12:30 Levalbuterol (Xopenex Neb) 1.25 mg Q4H RESP THERAPY PRN HHN wheezing Last administered on 02/14/18at 14:17; Admin Dose 1.25 MG; Start 02/11/18 at 00:00 Hydralazine HCl (Apresoline) 10 mg Q4H PRN IV SBP>170 Last administered on 02/16/18at 00:07; Admin Dose 10 MG; Start 02/11/18 at 10:30 Miscellaneous Information 1 ea NOTE XX ; Start 02/11/18 at 11:00 Glucose (Glutose) 15 gm Q15M PRN PO DECREASED GLUCOSE; Start 02/11/18 at 11:00 Glucose (Glutose) 22.5 gm Q15M PRN PO DECREASED GLUCOSE; Start 02/11/18 at 11:00 Dextrose (D50w Syringe) 25 ml Q15M PRN IV DECREASED GLUCOSE; Start 02/11/18 at 11:00 Dextrose (D50w Syringe) 50 ml Q15M PRN IV DECREASED GLUCOSE; Start 02/11/18 at 11:00 Glucagon (Glucagen) 1 mg Q15M PRN IM DECREASED GLUCOSE; Start 02/11/18 at 11:00 Glucose (Glutose) 15 gm Q15M PRN BUCCAL DECREASED GLUCOSE; Start 02/11/18 at 11:00 Oxycodone/ Acetaminophen (Percocet (5/ 325)) 1 tab Q4H PRN PO MODERATE PAIN LEVEL 4-6 Last administered on 02/18/18at 08:34; Admin Dose 1 TAB; Start 02/13/18 at 01:00 Lactulose (Enulose) 20 gm Q6H PRN PO CONSTIPATION Last administered on 02/14/18at 14:33; Admin Dose 20 GM; Start 02/14/18 at 14:00 Insulin Aspart (Novolog Insulin Pen) NOVOLOG *MILD* ALGORITHM WITH MEALS BEDTIME SC Last administered on 02/26/18at 17:24; Admin Dose 3 UNIT; Start 02/15/18 at 11:30 Atenolol (Tenormin) 50 mg BID PO Last administered on 02/27/18at 08:23; Admin D ose 50 MG; Start 02/16/18 at 21:00 Apixaban (Eliquis) 2.5 mg BID PO Last administered on 02/27/18at 08:23; Admin Dose 2.5 MG; Start 02/18/18 at 21:00 Prednisone (Prednisone) 10 mg DAILY PO Last administered on 02/27/18at 08:23; Admin Dose 10 MG; Start 02/24/18 at 09:00 Pantoprazole (Protonix Tab) 40 mg DAILY@06 PO Last administered on 02/27/18at 05:45; Admin Dose 40 MG; Start 02/24/18 at 06:00 SUZANNE DANIELS NP Feb 27, 2018 13:37
--- NOTE | 2018-02-27 14:17 | CONS ---
Date/Time of Note Date/Time of Note DATE: 02/27/18 TIME: 14:17 Assessment/Plan Assessment/Plan Result Diagram: 02/27/18 0510 02/27/18 0510 Results 24hrs Laboratory Tests Test 02/26/18 17:14 02/26/18 21:26 02/27/18 05:10 02/27/18 07:59 Bedside Glucose 259 H 167 112 White Blood 14.4 H Count Red Blood Count 2.96 L Hemoglobin 9.2 L Hematocrit 27.4 L Mean Corpuscular 92.6 Volume Mean Corpuscular 31.1 Hemoglobin Mean Corpuscular 33.6 Hemoglobin Naz nt Red Cell 13.9 Distribution Width Platelet Count 169 Mean Platelet 9.9 Volume Immature 1.000 H Granulocytes % Neutrophils % 74.4 Lymphocytes % 14.4 L Monocytes % 8.9 Eosinophils % 1.2 Basophils % 0.1 Nucleated Red 0.0 Blood Cells % Immature 0.140 H Granulocytes # Neutrophils # 10.7 H Lymphocytes # 2.1 Monocytes # 1.3 H Eosinophils # 0.2 Basophils # 0.0 Nucleated Red 0.0 Blood Cells # Sodium Level 134 L Potassium Level 4.3 Chloride Level 99 Carbon Dioxide 27 Level Anion Gap 8 Blood Urea 24 H Nitrogen Creatinine 1.17 Est Glomerular Filtrat Rate mL/min Glucose Level 106 Calcium Level 8.3 L Total Bilirubin 0.4 Direct Bilirubin 0.00 Indirect 0.4 Bilirubin Aspartate Amino 23 Transf (AST/SGOT ) Alanine 38 Aminotransferase (ALT/SGPT) Alkaline 94 Phosphatase Total Protein 5.3 L Albumin 2.8 L Globulin 2.50 Albumin/Globulin 1.12 Ratio Test 02/27/18 11:29 Bedside Glucose 92 Consultation Date/Type/Reason Admit Date/Time Feb 07, 2018 at 13:54 Initial Consult Date 02/10/2108 Type of Consult Oncology/ Hematology Requesting Provider: FIDEL GAVIN MD Exam/Review of Systems Vital Signs Vitals Vital Signs Date Temp Pulse Resp B/P (MAP) Pulse Ox O2 O2 Flow FiO2 Time Delivery Rate 02/27/18 75 12:06 02/27/18 97.3 20 122/56 100 Nasal 11:31 (78) Cannula 02/27/18 2.0 07:34 Intake and Output 02/26/18 02/26/18 02/27/18 1515:00 23:00 07:00 IntakeIntake Total 1000 ml OutputOutput Total 500 ml BalanceBalance 500 ml Medications Medications Current Medications IV Flush (NS 3 ml) 3 ml PER PROTOCOL IV ; Start 02/07/18 at 16:30 Ondansetron HCl (Zofran Inj) 4 mg Q6H PRN IV NAUSEA AND/OR VOMITING; Start 02/07/18 at 16:30 Acetaminophen (Tylenol Tab) 650 mg Q6H PRN PO PAIN LEVEL 1-3 OR FEVER; Start 02/07/18 at 16:30 Docusate Sodium (Colace) 100 mg Q12H PRN PO CONSTIPATION Last administered on 02/10/18at 20:07; Admin Dose 100 MG; Start 02/07/18 at 16:30 Diltiazem HCl (Cardizem) 60 mg Q8 PO Last administered on 02/27/18at 14:01; Admin Dose 60 MG; Start 02/07/18 at 17:00 Guaifenesin/ Dextromethorphan (Robitussin Dm Liquid Cup) 30 ml Q4H PRN PO COUGH Last administered on 02/26/18at 13:34; Admin Dose 30 ML; Start 02/09/18 at 12:30 Levalbuterol (Xopenex Neb) 1.25 mg Q4H RESP THERAPY PRN HHN wheezing Last administered on 02/14/18at 14:17; Admin Dose 1.25 MG; Start 02/11/18 at 00:00 Hydralazine HCl (Apresoline) 10 mg Q4H PRN IV SBP>170 Last administered on 02/16/18at 00:07; Admin Dose 10 MG; Start 02/11/18 at 10:30 Miscellaneous Information 1 ea NOTE XX ; Start 02/11/18 at 11:00 Glucose (Glutose) 15 gm Q15M PRN PO DECREASED GLUCOSE; Start 02/11/18 at 11:00 Glucose (Glutose) 22.5 gm Q15M PRN PO DECREASED GLUCOSE; Start 02/11/18 at 11:00 Dextrose (D50w Syringe) 25 ml Q15M PRN IV DECREASED GLUCOSE; Start 02/11/18 at 11:00 Dextrose (D50w Syringe) 50 ml Q15M PRN IV DECREASED GLUCOSE; Start 02/11/18 at 11:00 Glucagon (Glucagen) 1 mg Q15M PRN IM DECREASED GLUCOSE; Start 02/11/18 at 11:00 Glucose (Glutose) 15 gm Q15M PRN BUCCAL DECREASED GLUCOSE; Start 02/11/18 at 11:00 Oxycodone/ Acetaminophen (Percocet (5/ 325)) 1 tab Q4H PRN PO MODERATE PAIN LEVEL 4-6 Last administered on 02/18/18 08:34; Admin Dose 1 TAB; Start 02/13/18 at 01:00 Lactulose (Enulose) 20 gm Q6H PRN PO CONSTIPATION Last administered on 02/14/18at 14:33; Admin Dose 20 GM; Start 02/14/18 at 14:00 Insulin Aspart (Novolog Insulin Pen) NOVOLOG *MILD* ALGORITHM WITH MEALS BEDTIME SC Last administered on 02/26/18 17:24; Admin Dose 3 UNIT; Start 02/15/18 at 11:30 Atenolol (Tenormin) 50 mg BID PO Last administered on 02/27/18 08:23; Admin Dose 50 MG; Start 02/16/18 at 21:00 Apixaban (Eliquis) 2.5 mg BID PO Last administered on 02/27/18 08:23; Admin Dose 2.5 MG; Start 02/18/18 at 21:00 Prednisone (Prednisone) 10 mg DAILY PO Last administered on 02/27/18 08:23; Admin Dose 10 MG; Start 02/24/18 at 09:00 Pantoprazole (Protonix Tab) 40 mg DAILY@06 PO Last administered on 02/27/18 05:45; Admin Dose 40 MG; Start 02/24/18 at 06:00 BRYAN CARLIN Feb 27, 2018 14:17
--- NOTE | 2018-02-27 14:28 | CONS ---
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 Now with pleural effusion s/p thoracentesis, complicated by PTX and now with chest tube and SP extubated- -f/u cytology on pleural effusion is negative for malignancy -when he is more stable, check CT chest with contrast -mild leukocytosis likely reactive- 16.7 -mild anemia, suspect due to anemia of chronic disease -once he is more stable and he can have CT chest with contrast will better be able to assess if he has disease recurrence Patient is seen in collaboration with Dr Green Result Diagram: 02/27/18 0510 02/27/18 0510 Results 24hrs Laboratory Tests Test 02/26/18 17:14 02/26/18 21:26 02/27/18 05:10 02/27/18 07:59 Bedside Glucose 259 H 167 112 White Blood 14.4 H Count Red Blood Count 2.96 L Hemoglobin 9.2 L Hematocrit 27.4 L Mean Corpuscular 92.6 Volume Mean Corpuscular 31.1 Hemoglobin Mean Corpuscular 33.6 Hemoglobin Naz nt Red Cell 13.9 Distribution Width Platelet Count 169 Mean Platelet 9.9 Volume Immature 1.000 H Granulocytes % Neutrophils % 74.4 Lymphocytes % 14.4 L Monocytes % 8.9 Eosinophils % 1.2 Basophils % 0.1 Nucleated Red 0.0 Blood Cells % Immature 0.140 H Granulocytes # Neutrophils # 10.7 H Lymphocytes # 2.1 Monocytes # 1.3 H Eosinophils # 0.2 Basophils # 0.0 Nucleated Red 0.0 Blood Cells # Sodium Level 134 L Potassium Level 4.3 Chloride Level 99 Carbon Dioxide 27 Level Anion Gap 8 Blood Urea 24 H Nitrogen Creatinine 1.17 Est Glomerular Filtrat Rate mL/min Glucose Level 106 Calcium Level 8.3 L Total Bilirubin 0.4 Direct Bilirubin 0.00 Indirect 0.4 Bilirubin Aspartate Amino 23 Transf (AST/SGOT ) Alanine 38 Aminotransferase (ALT/SGPT) Alkaline 94 Phosphatase Total Protein 5.3 L Albumin 2.8 L Globulin 2.50 Albumin/Globulin 1.12 Ratio Test 02/27/18 11:29 Bedside Glucose 92 Consultation Date/Type/Reason Admit Date/Time Feb 07, 2018 at 13:54 Initial Consult Date 02/10/2108 Type of Consult Oncology/ Hematology Requesting Provider: FIDEL GAVIN MD 24 HR Interval Summary Free Text/Dictation Feels better - plan for [facility] placement no new issues reported overnight Constitutional: requiring O2 Detailed Summary Eyes: no complaints ENT: no complaints Respiratory: no complaints Cardiovascular: no complaints Gastrointestinal: no complaints Genitourinary: no complaints Musculoskeletal: restricted range of motion Exam/Review of Systems Vital Signs Vitals Vital Signs Date Temp Pulse Resp B/P (MAP) Pulse Ox O2 O2 Flow FiO2 Time Delivery Rate 02/27/18 75 12:06 02/27/18 97.3 20 122/56 100 Nasal 11:31 (78) Cannula 02/27/18 2.0 07:34 Intake and Output 02/26/18 02/26/18 02/27/18 1515:00 23:00 07:00 IntakeIntake Total 1000 ml OutputOutput Total 500 ml BalanceBalance 500 ml Exam Constitutional: alert, well developed Psych: nl mood/affect Head: atraumatic Eyes: nl conjunctiva, EOMI, nl lids ENMT: nl external ears & nose Neck: non-tender Respiratory: diminished breath sounds (bilaterally), other (s1s2) Cardiovascular: nl pulses Gastrointestinal: soft, non-tender Musculoskeletal: muscle weakness 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: 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, nl speech, other (alert/responsive) Medications Medications Current Medications IV Flush (NS 3 ml) 3 ml PER PROTOCOL IV ; Start 02/07/18 at 16:30 Ondansetron HCl (Zofran Inj) 4 mg Q6H PRN IV NAUSEA AND/OR VOMITING; Start 02/07/18 at 16:30 Acetaminophen (Tylenol Tab) 650 mg Q6H PRN PO PAIN LEVEL 1-3 OR FEVER; Start 02/07/18 at 16:30 Docusate Sodium (Colace) 100 mg Q12H PRN PO CONSTIPATION Last administered on 02/10/18at 20:07; Admin Dose 100 MG; Start 02/07/18 at 16:30 Diltiazem HCl (Cardizem) 60 mg Q8 PO Last administered on 02/27/18at 14:01; Admin Dose 60 MG; Start 02/07/18 at 17:00 Guaifenesin/ Dextromethorphan (Robitussin Dm Liquid Cup) 30 ml Q4H PRN PO COUGH Last administered on 02/26/18at 13:34; Admin Dose 30 ML; Start 02/09/18 at 12:30 Levalbuterol (Xopenex Neb) 1.25 mg Q4H RESP THERAPY PRN HHN wheezing Last administered on 02/14/18at 14:17; Admin Dose 1.25 MG; Start 02/11/18 at 00:00 Hydralazine HCl (Apresoline) 10 mg Q4H PRN IV SBP>170 Last administered on 02/16/18at 00:07; Admin Dose 10 MG; Start 02/11/18 at 10:30 Miscellaneous Information 1 ea NOTE XX ; Start 02/11/18 at 11:00 Glucose (Glutose) 15 gm Q15M PRN PO DECREASED GLUCOSE; Start 02/11/18 at 11:00 Glucose (Glutose) 22.5 gm Q15M PRN PO DECREASED GLUCOSE; Start 02/11/18 at 11:00 Dextrose (D50w Syringe) 25 ml Q15M PRN IV DECREASED GLUCOSE; Start 02/11/18 at 11:00 Dextrose (D50w Syringe) 50 ml Q15M PRN IV DECREASED GLUCOSE; Start 02/11/18 at 11:00 Glucagon (Glucagen) 1 mg Q15M PRN IM DECREASED GLUCOSE; Start 02/11/18 at 11:00 Glucose (Glutose) 15 gm Q15M PRN BUCCAL DECREASED GLUCOSE; Start 02/11/18 at 11:00 Oxycodone/ Acetaminophen (Percocet (5/ 325)) 1 tab Q4H PRN PO MODERATE PAIN LEV EL 4-6 Last administered on 02/18/18at 08:34; Admin Dose 1 TAB; Start 02/13/18 at 01:00 Lactulose (Enulose) 20 gm Q6H PRN PO CONSTIPATION Last administered on 02/14/18at 14:33; Admin Dose 20 GM; Start 02/14/18 at 14:00 Insulin Aspart (Novolog Insulin Pen) NOVOLOG *MILD* ALGORITHM WITH MEALS BEDT [place] SC Last administered on 02/26/18at 17:24; Admin Dose 3 UNIT; Start 02/15/18 at 11:30 Atenolol (Tenormin) 50 mg BID PO Last administered on 02/27/18at 08:23; Admin Dose 50 MG; Start 02/16/18 at 21:00 Apixaban (Eliquis) 2.5 mg BID PO Last administered on 02/27/18at 08:23; Admin Dose 2.5 MG; Start 02/18/18 at 21:00 Prednisone (Prednisone) 10 mg DAILY PO Last administered on 02/27/18at 08:23; Admin Dose 10 MG; Start 02/24/18 at 09:00 Pantoprazole (Protonix Tab) 40 mg DAILY@06 PO Last administered on 02/27/18at 05:45; Admin Dose 40 MG; Start 02/24/18 at 06:00 BRYAN CARLIN Feb 27, 2018 14:28
--- NOTE | 2018-02-27 18:27 | NUR ---
EOSS: PT AO x 4, Afib on tele, on 2L O2 NC, O2 sat WNL. Stable at this time, awaiting transfer to SNF, pending authorization.
[2018-02-28] VITALS (12 sets, daily range): BP systolic 105–152; BP diastolic 55–80; PULSE 61–87; RESP 18–19
[2018-02-28] MEDS: PANTOPRAZOLE (EC) 40 MG TAB PO SCH (05:31)
[2018-02-28] MEDS: DILTIAZEM 60 MG TAB PO SCH ×3 (05:32→22:38)
[2018-02-28] MEDS: INSULIN ASPART [NOVOLOG] 3 ML PEN SC SCH ×4 (07:47→21:00)
--- NOTE | 2018-02-28 07:54 | NUR ---
EOSS Pt. a/o x4. Comfortable in bed, denied any pain upon my shift. 2L O2 NC. Stable. Waiting to be transferred to SNF.
[2018-02-28] MEDS: predniSONE 10 MG TAB PO SCH (08:40)
[2018-02-28] MEDS: APIXABAN 5 MG TABLET PO SCH ×2 (08:40→22:36)
[2018-02-28] MEDS: ATENOLOL 50 MG TAB PO SCH ×2 (08:40→22:37)
--- NOTE | 2018-02-28 09:36 | CONS ---
Date/Time of Note Date/Time of Note DATE: 02/28/18 TIME: 09:34 Assessment/Plan Assessment/Plan Assessment/Plan Assessment and recommendations; 1. Patient admitted for shortness of breath due to bilateral pleural effusions with sequential bilateral thoracentesis. Pleural fluid cytology is negative for malignancy. 2. Development of extensive right-sided subcutaneous emphysema due to right pneumothorax status post removal of chest tube with persistent crepitus involving right chest wall. 3. 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 4. Chronic atrial fibrillation. 5. Difficult to rule out left lower lobe postobstructive atelectasis/pneumonia versus radiation changes. Consider discharge to intermediate at least for a week or 2. Patient will need to have a bronchoscopy evaluation performed once the cutaneous emphysema resolved. Because of history of recent pneumothorax patient is at high risk of recurrence if intubated for bronchoscopy. Result Diagram: 02/27/18 0510 02/27/18 0510 Results 24hrs Laboratory Tests Test 02/27/18 11:29 02/27/18 17:14 02/27/18 20:19 02/28/18 02:48 Bedside Glucose 92 176 211 118 Test 02/28/18 07:47 Bedside Glucose 101 Consultation Date/Type/Reason Admit Date/Time Feb 07, 2018 at 13:54 Initial Consult Date Type of Consult Pulmonary/critical care Requesting Provider: FIDEL GAVIN MD 24 HR Interval Summary Free Text/Dictation Patient's condition is stable. Denies any shortness or, chest pain. General exam; elderly male, awake alert, currently no distress. Exam/Review of Systems Vital Signs Vitals Vital Signs Date Temp Pulse Resp B/P (MAP) Pulse Ox O2 O2 Flow FiO2 Time Delivery Rate 02/28/18 98.8 70 18 139/80 100 08:35 (99) 02/28/18 Nasal 2.0 07:32 Cannula Intake and Output 02/27/18 02/27/18 02/28/18 1515:00 23:00 07:00 IntakeIntake Total 400 ml 1000 ml OutputOutput Total 950 ml 900 ml BalanceBalance -550 ml 100 ml Exam HEENT exam; supple neck, no JVD. No lymphadenopathy. Midline trachea. No thyromegaly. Patient has fair dentition. There is no facial subcutaneous emphysema. Chest exam; crepitus involving the right anterolateral chest wall. Diminished breath sounds left lower lobe. S1-S2 audible, no murmurs. Irregular rhythm. Abdomen exam; soft, no organomegaly. Bowel sounds audible. Extremity exam; no edema or clubbing. [employer] exam; no focal deficit. Medications Medications Current Medications IV Flush (NS 3 ml) 3 ml PER PROTOCOL IV ; Start 02/07/18 at 16:30 Ondansetron HCl (Zofran Inj) 4 mg Q6H PRN IV NAUSEA AND/OR VOMITING; Start 02/07/18 at 16:30 Acetaminophen (Tylenol Tab) 650 mg Q6H PRN PO PAIN LEVEL 1-3 OR FEVER; Start 02/07/18 at 16:30 Docusate Sodium (Colace) 100 mg Q12H PRN PO CONSTIPATION Last administered on 02/10/18at 20:07; Admin Dose 100 MG; Start 02/07/18 at 16:30 Diltiazem HCl (Cardizem) 60 mg Q8 PO Last administered on 02/28/18at 05:32; Admin Dose 60 MG; Start 02/07/18 at 17:00 Guaifenesin/ Dextromethorphan (Robitussin Dm Liquid Cup) 30 ml Q4H PRN PO COUGH Last administered on 02/26/18at 13:34; Admin Dose 30 ML; Start 02/09/18 at 12:30 Levalbuterol (Xopenex Neb) 1.25 mg Q4H RESP THERAPY PRN HHN wheezing Last administered on 02/14/18at 14:17; Admin Dose 1.25 MG; Start 02/11/18 at 00:00 Hydralazine HCl (Apresoline) 10 mg Q4H PRN IV SBP>170 Last administered on 02/16/18at 00:07; Admin Dose 10 MG; Start 02/11/18 at 10:30 Miscellaneous Information 1 ea NOTE XX ; Start 02/11/18 at 11:00 Glucose (Glutose) 15 gm Q15M PRN PO DECREASED GLUCOSE; Start 02/11/18 at 11:00 Glucose (Glutose) 22.5 gm Q15M PRN PO DECREASED GLUCOSE; Start 02/11/18 at 11:00 Dextrose (D50w Syringe) 25 ml Q15M PRN IV DECREASED GLUCOSE; Start 02/11/18 at 11:00 Dextrose (D50w Syringe) 50 ml Q15M PRN IV DECREASED GLUCOSE; Start 02/11/18 at 11:00 Glucagon (Glucagen) 1 mg Q15M PRN IM DECREASED GLUCOSE; Start 02/11/18 at 11:00 Glucose (Glutose) 15 gm Q15M PRN BUCCAL DECREASED GLUCOSE; Start 02/11/18 at 11:00 Oxycodone/ Acetaminophen (Percocet (5/ 325)) 1 tab Q4H PRN PO MODERATE PAIN LEVEL 4-6 Last administered on 02/18/18at 08:34; Admin Dose 1 TAB; Start 02/13/18 at 01:00 Lactulose (Enulose) 20 gm Q6H PRN PO CONSTIPATION Last administered on 02/14/18 14:33; Admin Dose 20 GM; Start 02/14/18 at 14:00 Insulin Aspart (Novolog Insulin Pen) NOVOLOG *MILD* ALGORITHM WITH MEALS BEDTIME SC Last administered on 02/27/18 22:02; Admin Dose 1 UNIT; Start 02/15/18 at 11:30 Atenolol (Tenormin) 50 mg BID PO Last administered on 02/28/18 08:40; Admin Dose 50 MG; Start 02/16/18 at 21:00 Apixaban (Eliquis) 2.5 mg BID PO Last administered on 02/28/18 08:40; Admin Dose 2.5 MG; Start 02/18/18 at 21:00 Prednisone (Prednisone) 10 mg DAILY PO Last administered on 02/28/18 08:40; Admin Dose 10 MG; Start 02/24/18 at 09:00 Pantoprazole (Protonix Tab) 40 mg DAILY@06 PO Last administered on 02/28/18 05:31; Admin Dose 40 MG; Start 02/24/18 at 06:00 ALAN DICKERSON Feb 28, 2018 09:36
--- NOTE | 2018-02-28 10:03 | NUR ---
PT NOTE , 10 Subjective Denies pain Pain Scale NUMERIC Pain Intensity 0 (0-10) Patient Stated Goal for Pain Relief 0 (0-10) Pain Level Comment N/A Transfer Sit to Stand Ability Supervised Bed Mobility Sit to Supine Supervised Bed Transfer Ability Supervised Chair Transfer Ability Supervised Additional Mobility Comments W/FWW Gait Training Start Time 09:00 Gait Assist Levels Stand by Assist Assistive Devices Front Wheel Walker Ambulation Distance 200 feet Additional Gait Comments SLOW CONNIE WITH MILD FLEXED TRUNK POSTURE . Gait Training End Time 09:25 Total Gait Training Treatment Time 25 min (8-127) Static Sitting Balance Good Dynamic Sitting Balance Good Standing Static Balance Good Dynamic Standing Balance Good Additional Balance Assessments Comments W/FWW Safety Judgement Good Activity Tolerance Good Additional Equipment Present 02 2ML/NC . Post Treatment Pain Intensity 0 0-10 Variance Documentation P/S SEE PT NOTE . Total Treatment Time 25 min (8-127) Total Minutes 25 Total Units 2 PT Technical Record Comment PT NOTE , VS STABLE , PATIENT AGREED TO PARTICIPATE IN PT SESSION , UNWILLING TO PERFORM GAIT TYR WITH CANE DUE TO FATIGUES EASILY, BUT AGREED TO GAIT TR W/FWW . GAIT TR W/FWW PERFORMED WITH 02 2ML/NC , NOTED SLOW CONNIE WITH MILD FLEXED TRUNK POSTURE , OCC.VC'S REQUIRES FOR UPRIGHT POSTURE , INCREASE STEP LENGTH AND PROPER BREATHING TECHNICS, NO SOB AND NO LOB NOTED DURING GAIT TR WITH FWW , VS STABLE TOLERATED TREATMENT WELL, RETURNED BACK TO BED IND . BED ALARM ACTIVATED . A: DC TO SNF PER MD RECOMMENDATION . P: CONTINUE WITH POC .
--- NOTE | 2018-02-28 11:39 | CONS ---
Date/Time of Note Date/Time of Note DATE: 02/28/18 TIME: 11:34 Assessment/Plan Assessment/Plan Hospital Course IMP: 1.AF-rate controlled 2.CHF-diastolic acute on chronic 3.HTN-reasonable control 4.Pleural effusion s/p thoracentesis c/b PTX now s/p CT. Now s/p thoracentesis on Left 5. Renal failure 6. Leukocytosis 7. anemia 8. SQ emphysema extensive-tracking up into face and around eye, continues to improve Recc: -Tele -Continue atenolol/dilt and will make slight increase to dose to improve HR/BP further -Continue steroids/abx/bronchodilators -continue eliquis -Follow CT output closely -Follow exam Result Diagram: 02/27/18 0510 02/27/18 0510 Results 24hrs Laboratory Tests Test 02/27/18 17:14 02/27/18 20:19 02/28/18 02:48 02/28/18 07:47 Bedside Glucose 176 211 118 101 Consultation Date/Type/Reason Admit Date/Time Feb 07, 2018 at 13:54 Initial Consult Date 02/07/18 Type of Consult cardiology Reason for Consultation AF Requesting Provider: FIDEL GAVIN MD Exam/Review of Systems Vital Signs Vitals Vital Signs Date Temp Pulse Resp B/P (MAP) Pulse Ox O2 O2 Flow FiO2 Time Delivery Rate 02/28/18 98.8 70 18 139/80 100 08:35 (99) 02/28/18 Nasal 2.0 07:32 Cannula Intake and Output 02/27/18 02/27/18 02/28/18 1515:00 23:00 07:00 IntakeIntake Total 400 ml 1000 ml OutputOutput Total 950 ml 900 ml BalanceBalance -550 ml 100 ml Exam Review of Systems: CONSTITUTIONAL: No fevers, chills. PULMONARY: No sob CARDIOVASCULAR: No chest pain/palpitations GASTROINTESTINAL: No nausea/vomiting. GENITOURINARY: No hematuria/dysuria. MUSCULOSKELETAL: No myagias/arthalgias. PSYCHIATRIC: The patient denies depression. NEUROLOGIC: No weakness Constitutional: alert Psych: no complaints Head: normocephalic Eyes: nl conjunctiva ENMT: mucosa pink and moist Neck: supple, jvd (9 cm water) Respiratory: diminished breath sounds (at bases/B) Cardiovascular: regular rate and rhythm Gastrointestinal: soft, non-tender Musculoskeletal: muscle tone (normal) Extremities: edema (none) 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: other (No focal deficits) Medications Medications Current Medications IV Flush (NS 3 ml) 3 ml PER PROTOCOL IV ; Start 02/07/18 at 16:30 Ondansetron HCl (Zofran Inj) 4 mg Q6H PRN IV NAUSEA AND/OR VOMITING; Start 02/07/18 at 16:30 Acetaminophen (Tylenol Tab) 650 mg Q6H PRN PO PAIN LEVEL 1-3 OR FEVER; Start 02/07/18 at 16:30 Docusate Sodium (Colace) 100 mg Q12H PRN PO CONSTIPATION Last administered on 02/10/18at 20:07; Admin Dose 100 MG; Start 02/07/18 at 16:30 Diltiazem HCl (Cardizem) 60 mg Q8 PO Last administered on 02/28/18at 05:32; Admin Dose 60 MG; Start 02/07/18 at 17:00 Guaifenesin/ Dextromethorphan (Robitussin Dm Liquid Cup) 30 ml Q4H PRN PO COUGH Last administered on 02/26/18at 13:34; Admin Dose 30 ML; Start 02/09/18 at 12:30 Levalbuterol (Xopenex Neb) 1.25 mg Q4H RESP THERAPY PRN HHN wheezing Last administered on 02/14/18at 14:17; Admin Dose 1.25 MG; Start 02/11/18 at 00:00 Hydralazine HCl (Apresoline) 10 mg Q4H PRN IV SBP>170 Last administered on 02/16/18at 00:07; Admin Dose 10 MG; Start 02/11/18 at 10:30 Miscellaneous Information 1 ea NOTE XX ; Start 02/11/18 at 11:00 Glucose (Glutose) 15 gm Q15M PRN PO DECREASED GLUCOSE; Start 02/11/18 at 11:00 Glucose (Glutose) 22.5 gm Q15M PRN PO DECREASED GLUCOSE; Start 02/11/18 at 11:00 Dextrose (D50w Syringe) 25 ml Q15M PRN IV DECREASED GLUCOSE; Start 02/11/18 at 11:00 Dextrose (D50w Syringe) 50 ml Q15M PRN IV DECREASED GLUCOSE; Start 02/11/18 at 11:00 Glucagon (Glucagen) 1 mg Q15M PRN IM DECREASED GLUCOSE; Start 02/11/18 at 11:00 Glucose (Glutose) 15 gm Q15M PRN BUCCAL DECREASED GLUCOSE; Start 02/11/18 at 11:00 Oxycodone/ Acetaminophen (Percocet (5/ 325)) 1 tab Q4H PRN PO MODERATE PAIN LEVEL 4-6 Last administered on 02/18/18 08:34; Admin Dose 1 TAB; Start 02/13/18 at 01:00 Lactulose (Enulose) 20 gm Q6H PRN PO CONSTIPATION Last administered on 02/14/18 14:33; Admin Dose 20 GM; Start 02/14/18 at 14:00 Insulin Aspart (Novolog Insulin Pen) NOVOLOG *MILD* ALGORITHM WITH MEALS BEDTIME SC Last administered on 02/27/18 22:02; Admin Dose 1 UNIT; Start 02/15/18 at 11:30 Atenolol (Tenormin) 50 mg BID PO Last administered on 02/28/18 08:40; Admin Dose 50 MG; Start 02/16/18 at 21:00 Apixaban (Eliquis) 2.5 mg BID PO Last administered on 02/28/18 08:40; Admin Dose 2.5 MG; Start 02/18/18 at 21:00 Prednisone (Prednisone) 10 mg DAILY PO Last administered on 02/28/18 08:40; A dmin Dose 10 MG; Start 02/24/18 at 09:00 Pantoprazole (Protonix Tab) 40 mg DAILY@06 PO Last administered on 02/28/18at 05:31; Admin Dose 40 MG; Start 02/24/18 at 06:00 CECE LOPEZ Feb 28, 2018 11:39
--- NOTE | 2018-02-28 14:37 | CONS ---
Date/Time of Note Date/Time of Note DATE: 02/28/18 TIME: 14:36 Assessment/Plan Assessment/Plan Hospital Course Patient is alert, looks comfortable sitting up in a chair, no shortness of breath on nasal cannula at rest Microbiology: All cultures negative Physical examination: Fragile well-developed elderly man who is awake in no distress. Head atraumatic normocephalic. Sclera nonicteric. Neck is supple. Chest rise symmetrical breath sounds with scattered crackles to the right. Heart: S1-S2. Abdomen soft, bowel sounds present. Extremities without cyanosis. Assessment: 1. Leukocytosis 2. Status post bilateral pneumonia 3. Right pneumothorax, status post chest tube discontinued, with residual sc em physema 4. History of CVA 5. History of lung cancer 6. Atrial fibrillation 7. Large Left effusion Plan: Remains stable, pulmonary rec-s noted==> patient will need to have bronchoscopy performed once subcutaneous emphysema has completely resolved. Continue observing off abx Result Diagram: 02/27/18 0510 02/27/18 0510 Results 24hrs Laboratory Tests Test 02/27/18 17:14 02/27/18 20:19 02/28/18 02:48 02/28/18 07:47 Bedside Glucose 176 211 118 101 Test 02/28/18 12:05 Bedside Glucose 114 Consultation Date/Type/Reason Admit Date/Time Feb 07, 2018 at 13:54 Initial Consult Date Type of Consult id Requesting Provider: FIDEL GAVIN MD Exam/Review of Systems Vital Signs Vitals Vital Signs Date Temp Pulse Resp B/P (MAP) Pulse Ox O2 O2 Flow FiO2 Time Delivery Rate 02/28/18 73 105/68 14:25 (80) 02/28/18 97.7 18 100 11:35 02/28/18 Nasal 2.0 07:32 Cannula Intake and Output 02/27/18 02/27/18 02/28/18 1515:00 23:00 07:00 IntakeIntake Total 400 ml 1000 ml OutputOutput Total 950 ml 900 ml BalanceBalance -550 ml 100 ml Medications Medications Current Medications IV Flush (NS 3 ml) 3 ml PER PROTOCOL IV ; Start 02/07/18 at 16:30 Ondansetron HCl (Zofran Inj) 4 mg Q6H PRN IV NAUSEA AND/OR VOMITING; Start 02/07/18 at 16:30 Acetaminophen (Tylenol Tab) 650 mg Q6H PRN PO PAIN LEVEL 1-3 OR FEVER; Start 02/07/18 at 16:30 Docusate Sodium (Colace) 100 mg Q12H PRN PO CONSTIPATION Last administered on 02/10/18at 20:07; Admin Dose 100 MG; Start 02/07/18 at 16:30 Diltiazem HCl (Cardizem) 60 mg Q8 PO Last administered on 02/28/18at 14:26; Admin Dose 60 MG; Start 02/07/18 at 17:00 Guaifenesin/ Dextromethorphan (Robitussin Dm Liquid Cup) 30 ml Q4H PRN PO COUGH Last administered on 02/26/18at 13:34; Admin Dose 30 ML; Start 02/09/18 at 12:30 Levalbuterol (Xopenex Neb) 1.25 mg Q4H RESP THERAPY PRN HHN wheezing Last administered on 02/14/18at 14:17; Admin Dose 1.25 MG; Start 02/11/18 at 00:00 Hydralazine HCl (Apresoline) 10 mg Q4H PRN IV SBP>170 Last administered on 02/16/18at 00:07; Admin Dose 10 MG; Start 02/11/18 at 10:30 Miscellaneous Information 1 ea NOTE XX ; Start 02/11/18 at 11:00 Glucose (Glutose) 15 gm Q15M PRN PO DECREASED GLUCOSE; Start 02/11/18 at 11:00 Glucose (Glutose) 22.5 gm Q15M PRN PO DECREASED GLUCOSE; Start 02/11/18 at 11:00 Dextrose (D50w Syringe) 25 ml Q15M PRN IV DECREASED GLUCOSE; Start 02/11/18 at 11:00 Dextrose (D50w Syringe) 50 ml Q15M PRN IV DECREASED GLUCOSE; Start 02/11/18 at 11:00 Glucagon (Glucagen) 1 mg Q15M PRN IM DECREASED GLUCOSE; Start 02/11/18 at 11:00 Glucose (Glutose) 15 gm Q15M PRN BUCCAL DECREASED GLUCOSE; Start 02/11/18 at 11:00 Oxycodone/ Acetaminophen (Percocet (5/ 325)) 1 tab Q4H PRN PO MODERATE PAIN LEVEL 4-6 Last administered on 02/18/18at 08:34; Admin Dose 1 TAB; Start 02/13/18 at 01:00 Lactulose (Enulose) 20 gm Q6H PRN PO CONSTIPATION Last administered on 14:33; Admin Dose 20 GM; Start 02/14/18 at 14:00 Insulin Aspart (Novolog Insulin Pen) NOVOLOG *MILD* ALGORITHM WITH MEALS BEDTIME SC Last administered on 02/27/18 22:02; Admin Dose 1 UNIT; Start 02/15/18 at 11:30 Atenolol (Tenormin) 50 mg BID PO Last administered on 02/28/18 08:40; Admin Dose 50 MG; Start 02/16/18 at 21:00 Apixaban (Eliquis) 2.5 mg BID PO Last administered on 02/28/18 08:40; Admin Dose 2.5 MG; Start 02/18/18 at 21:00 Prednisone (Prednisone) 10 mg DAILY PO Last administered on 02/28/18 08:40; Admin Dose 10 MG; Start 02/24/18 at 09:00 Pantoprazole (Protonix Tab) 40 mg DAILY@06 PO Last administered on 02/28/18 05:31; Admin Dose 40 MG; Start 02/24/18 at 06:00 SUZANNE DANIELS NP Feb 28, 2018 14:37
--- NOTE | 2018-02-28 14:58 | NUR ---
CM NOTE FOLLOWED UP WITH [facility] AND AUTH IS STILL PENDING AND ALSO [facility] IS WILLING TO ACCEPT AND WILL ASK FOR AUTH WELL. CM WILL CONTINUE TO FOLLOW UP. Addendum: 02/28/18 at 1618 by DOLLY LUNDBERG RN, CM followed up with paxton lin and she is assisting cm in contacting insurance cm to expedite the auth, she left several messages and will continue to follow up and also robert [facility] [place] left several messages as well.
--- NOTE | 2018-02-28 15:21 | PN ---
Date/Time of Note Date/Time of Note DATE: 02/28/18 TIME: 15:21 Assessment/Plan VTE Prophylaxis Risk score (from Ns)>0 risk: 6 SCD applied (from Ns): No SCD contraindicated: low risk/ambulating Pharmacological prophylaxis: NA/contraindicated Pharm contraindication: low risk/ambulating Lines/Catheters IV C[facility]ter Type (from [facility] Saline Lock Urinary Cath still in place: No Assessment/Plan Hospital Course ASSESSMENT AND PLAN: This is a 77-year-old male who presented with: # Respiratory failure status post intubation on 1211 this post extubation #. Shortness of breath likely secondary to congestive heart failure/chronic obstructive pulmonary disease exacerbation. # right-sided pneumothorax status post thoracentesis, now with chest tube , subcutanoeus emphysema, chest tube in place s/p removal 2 days ago # Large left pleural effusion, status post thoracentesis in the past. Status post thoracentesis on 1217 # History of chronic obstructive pulmonary disease. #. Atrial fibrillation with rapid ventricular response.controlled #. Hypertension. # EKG changes of atrial fibrillation with ST segment changes in the inferior leads. # History of lung cancer status post chemo and radiation.? NEW Lung metastases # History of coronary artery disease. #. Pleural effusion, status post thoracentesis. # Elevated BNP secondary to congestive heart failure. #. Hyponatremia. # History of peripheral vascular disease. # LEUKOCYTOSIS secondary to steroids # acute on chronic renal failure likely due to prerenal/ATN Overdiuresis, and uptrending continue to monitor urine monitor creatinine, cR 1.8 > trending down> resolved #Mild hyperkalemia #extemepuffiness around the right eye due to extensive subcutaneous emphysema, and on the soft tissue CT> resolved Plan -- chest xray +left sided effusion - sp removal -CW Eliquis -Taper prednisone - off abx wbc 15 - c w diltazem and atenolol - f/u cardiac and pul recs -cw PT per Dr Holder, pt is very comfortable, will hold off thora on left and let sub emphysema heal and will repeat chest xray in 1 week P[er Dr Holder , pt atient will need to have a bronchoscopy performed once right chest wall subcutaneous emphysema has resolved. Patient is at high risk for intubation because of history of recent pneumothorax. And I would recommend at least a 1 week healing. Before attempting bronchoscopy. dc SNIF today, PENDING PLACEMENT Result Diagram: 02/27/18 0510 02/27/18 0510 Results 24hrs Laboratory Tests Test 02/27/18 17:14 02/27/18 20:19 02/28/18 02:48 02/28/18 07:47 Bedside Glucose 176 211 118 101 Test 02/28/18 12:05 Bedside Glucose 114 Subjective 24 Hr Interval Summary Free Text/Dictation SOB with exertion awaiting transfer to [facility] Exam/Review of Systems Vital Signs Vitals Vital Signs Date Temp Pulse Resp B/P (MAP) Pulse Ox O2 O2 Flow FiO2 Time Delivery Rate 02/28/18 73 105/68 14:25 (80) 02/28/18 97.7 18 100 11:35 02/28/18 Nasal 2.0 07:32 Cannula Intake and Output 02/27/18 02/27/18 02/28/18 1515:00 23:00 07:00 IntakeIntake Total 400 ml 1000 ml OutputOutput Total 950 ml 900 ml BalanceBalance -550 ml 100 ml Exam Neck: supple Respiratory: diminished breath sounds ON L;EFT Cardiovascular: regular rate and rhythm Gastrointestinal: soft, bowel sounds (+) Extremities: No edema SUB CUTA EMPYSEMA ON RT Medications Medications Current Medications IV Flush (NS 3 ml) 3 ml PER PROTOCOL IV ; Start 02/07/18 at 16:30 Ondansetron HCl (Zofran Inj) 4 mg Q6H PRN IV NAUSEA AND/OR VOMITING; Start 02/07/18 at 16:30 Acetaminophen (Tylenol Tab) 650 mg Q6H PRN PO PAIN LEVEL 1-3 OR FEVER; Start 02/07/18 at 16:30 Docusate Sodium (Colace) 100 mg Q12H PRN PO CONSTIPATION Last administered on 02/10/18at 20:07; Admin Dose 100 MG; Start 02/07/18 at 16:30 Diltiazem HCl (Cardizem) 60 mg Q8 PO Last administered on 02/28/18at 14:26; Admin Dose 60 MG; Start 02/07/18 at 17:00 Guaifenesin/ Dextromethorphan (Robitussin Dm Liquid Cup) 30 ml Q4H PRN PO COUGH Last administered on 02/26/18at 13:34; Admin Dose 30 ML; Start 02/09/18 at 12:30 Levalbuterol (Xopenex Neb) 1.25 mg Q4H RESP THERAPY PRN HHN wheezing Last administered on 02/14/18at 14:17; Admin Dose 1.25 MG; Start 02/11/18 at 00:00 Hydralazine HCl (Apresoline) 10 mg Q4H PRN IV SBP>170 Last administered on 02/16/18at 00:07; Admin Dose 10 MG; Start 02/11/18 at 10:30 Miscellaneous Information 1 ea NOTE XX ; Start 02/11/18 at 11:00 Glucose (Glutose) 15 gm Q15M PRN PO DECREASED GLUCOSE; Start 02/11/18 at 11:00 Glucose (Glutose) 22.5 gm Q15M PRN PO DECREASED GLUCOSE; Start 02/11/18 at 11:00 Dextrose (D50w Syringe) 25 ml Q15M PRN IV DECREASED GLUCOSE; Start 02/11/18 at 11:00 Dextrose (D50w Syringe) 50 ml Q15M PRN IV DECREASED GLUCOSE; Start 02/11/18 at 11:00 Glucagon (Glucagen) 1 mg Q15M PRN IM DECREASED GLUCOSE; Start 02/11/18 at 11:00 Glucose (Glutose) 15 gm Q15M PRN BUCCAL DECREASED GLUCOSE; Start 02/11/18 at 11:00 Oxycodone/ Acetaminophen (Percocet (5/ 325)) 1 tab Q4H PRN PO MODERATE PAIN LEVEL 4-6 Last administered on 02/18/18at 08:34; Admin Dose 1 TAB; Start at 01:00 Lactulose (Enulose) 20 gm Q6H PRN PO CONSTIPATION Last administered on 02/14/18at 14:33; Admin Dose 20 GM; Start 02/14/18 at 14:00 Insulin Aspart (Novolog Insulin Pen) NOVOLOG *MILD* ALGORITHM WITH MEALS BEDTIME SC Last administered on 02/27/18at 22:02; Admin Dose 1 UNIT; Start 02/15/18 at 11:30 Atenolol (Tenormin) 50 mg BID PO Last administered on 02/28/18at 08:40; Admin Dose 50 MG; Start 02/16/18 at 21:00 Apixaban (Eliquis) 2.5 mg BID PO Last administered on 02/28/18 08:40; Admin Dose 2.5 MG; Start 02/18/18 at 21:00 Prednisone (Prednisone) 10 mg DAILY PO Last administered on 02/28/18 08:40; Admin Dose 10 MG; Start 02/24/18 at 09:00 Pantoprazole (Protonix Tab) 40 mg DAILY@06 PO Last administered on 02/28/18 05:31; Admin Dose 40 MG; Start 02/24/18 at 06:00 FIDEL GAVIN MD Feb 28, 2018 15:21
--- NOTE | 2018-02-28 18:28 | NUR ---
Eoss No significant changes noted at this time, pt pending for [facility] re[facility] authorization. Spoke with Aliya case picker, she is working on the insurance authorization, will endorse accordingly
--- NOTE | 2018-02-28 19:53 | PN ---
Date/Time of Note Date/Time of Note DATE: 02/28/18 TIME: 19:53 Assessment/Plan Lines/Catheters IV Catheter Type (from Nrsg): Saline Lock Bar in Place (from Nrsg): No Assessment/Plan Assessment/Plan Assessment/Plan IMPRESSION: 1. Interval removal of right-sided chest tube without definite residual pneumothorax. 2. Large left-sided pleural effusion/atelectasis, unchanged compared to prior exams. will monitor the CXR Subjective 24 Hr Interval Summary Constitutional: improved Pain Control: mild Exam/Review of Systems Vital Signs Vitals Vital Signs Date Temp Pulse Resp B/P (MAP) Pulse Ox O2 O2 Flow FiO2 Time Delivery Rate 02/28/18 3.0 16:44 02/28/18 87 16:16 02/28/18 98.4 18 148/73 100 16:04 (98) 02/28/18 Nasal 07:32 Cannula Intake and Output 02/27/18 02/27/18 02/28/18 1515:00 23:00 07:00 IntakeIntake Total 400 ml 1000 ml OutputOutput Total 950 ml 900 ml BalanceBalance -550 ml 100 ml Exam Eyes: nl conjunctiva, EOMI, nl lids, nl sclera ENMT: nl external ears & nose, nl lips & teeth, nl nasal mucosa & septum, mucosa pink and moist Neck: supple, non-tender Respiratory: clear to auscultation, normal air movement Cardiovascular: regular rate and rhythm, nl pulses Gastrointestinal: soft, nl liver, spleen, non-tender Musculoskeletal: nl extremities to inspection, nl gait and stance Results Result Diagram: 02/27/18 0510 02/27/18 0510 SHIRA ORTIZ MD Feb 28, 2018 19:53
--- NOTE | 2018-02-28 23:47 | CONS ---
Date/Time of Note Date/Time of Note DATE: 02/28/18 TIME: 23:47 Assessment/Plan Assessment/Plan Result Diagram: 02/27/18 0510 02/27/18 0510 Results 24hrs Laboratory Tests Test 02/28/18 02:48 02/28/18 07:47 02/28/18 12:05 02/28/18 17:26 Bedside Glucose 118 101 114 130 Test 02/28/18 22:41 Bedside Glucose 149 Consultation Date/Type/Reason Admit Date/Time Feb 07, 2018 at 1:54 pm Initial Consult Date 02/10/2108 Type of Consult Oncology/ Hematology Requesting Provider: FIDEL GAVIN MD Exam/Review of Systems Vital Signs Vitals Vital Signs Date Temp Pulse Resp B/P (MAP) Pulse Ox O2 O2 Flow FiO2 Time Delivery Rate 02/28/18 3.0 30 22:01 02/28/18 81 20:00 02/28/18 98.9 152/55 98 Nasal 19:56 (87) Cannula 02/28/18 18 16:04 Intake and Output 02/27/18 02/27/18 02/28/18 1515:00 23:00 07:00 IntakeIntake Total 400 ml 1000 ml OutputOutput Total 950 ml 900 ml BalanceBalance -550 ml 100 ml Medications Medications Current Medications IV Flush (NS 3 ml) 3 ml PER PROTOCOL IV ; Start 02/07/18 at 16:30 Ondansetron HCl (Zofran Inj) 4 mg Q6H PRN IV NAUSEA AND/OR VOMITING; Start 02/07/18 at 16:30 Acetaminophen (Tylenol Tab) 650 mg Q6H PRN PO PAIN LEVEL 1-3 OR FEVER; Start 02/07/18 at 16:30 Docusate Sodium (Colace) 100 mg Q12H PRN PO CONSTIPATION Last administered on 02/10/18at 20:07; Admin Dose 100 MG; Start 02/07/18 at 16:30 Diltiazem HCl (Cardizem) 60 mg Q8 PO Last administered on 02/28/18at 22:38; Admin Dose 60 MG; Start 02/07/18 at 17:00 Guaifenesin/ Dextromethorphan (Robitussin Dm Liquid Cup) 30 ml Q4H PRN PO COUGH Last administered on 02/26/18at 13:34; Admin Dose 30 ML; Start 02/09/18 at 12:30 Levalbuterol (Xopenex Neb) 1.25 mg Q4H RESP THERAPY PRN HHN wheezing Last administered on 02/14/18at 14:17; Admin Dose 1.25 MG; Start 02/11/18 at 00:00 Hydralazine HCl (Apresoline) 10 mg Q4H PRN IV SBP>170 Last administered on 02/16/18at 00:07; Admin Dose 10 MG; Start 02/11/18 at 10:30 Miscellaneous Information 1 ea NOTE XX ; Start 02/11/18 at 11:00 Glucose (Glutose) 15 gm Q15M PRN PO DECREASED GLUCOSE; Start 02/11/18 at 11:00 Glucose (Glutose) 22.5 gm Q15M PRN PO DECREASED GLUCOSE; Start 02/11/18 at 11:00 Dextrose (D50w Syringe) 25 ml Q15M PRN IV DECREASED GLUCOSE; Start 02/11/18 at 11:00 Dextrose (D50w Syringe) 50 ml Q15M PRN IV DECREASED GLUCOSE; Start 02/11/18 at 11:00 Glucagon (Glucagen) 1 mg Q15M PRN IM DECREASED GLUCOSE; Start 02/11/18 at 11:0 0 Glucose (Glutose) 15 gm Q15M PRN BUCCAL DECREASED GLUCOSE; Start 02/11/18 at 11:00 Oxycodone/ Acetaminophen (Percocet (5/ 325)) 1 tab Q4H PRN PO MODERATE PAIN LEVEL 4-6 Last administered on 02/18/18at 08:34; Admin Dose 1 TAB; Start 02/13/18 at 01:00 Lactulose (Enulose) 20 gm Q6H PRN PO CONSTIPATION Last administered on 02/14/18at 14:33; Admin Dose 20 GM; Start 02/14/18 at 14:00 Insulin Aspart (Novolog Insulin Pen) NOVOLOG *MILD* ALGORITHM WITH MEALS BEDTIME SC Last administered on 02/27/18at 22:02; Admin Dose 1 UNIT; Start 02/15/18 at 11:30 Atenolol (Tenormin) 50 mg BID PO Last administered on 02/28/18at 22:37; Admin Dose 50 MG; Start 02/16/18 at 21:00 Apixaban (Eliquis) 2.5 mg BID PO Last administered on 02/28/18at 22:36; Admin Dose 2.5 MG; Start 02/18/18 at 21:00 Prednisone (Prednisone) 10 mg DAILY PO Last administered on 02/28/18at 08:40; Admin Dose 10 MG; Start 02/24/18 at 09:00 Pantoprazole (Protonix Tab) 40 mg DAILY@06 PO Last administered on 02/28/18at 05:31; Admin Dose 40 MG; Start 02/24/18 at 06:00 BRYAN CARLIN Feb 28, 2018 11:47 pm
[2018-03-01] VITALS (10 sets, daily range): BP systolic 117–150; BP diastolic 54–67; PULSE 58–95; RESP 18
[2018-03-01] MEDS: PANTOPRAZOLE (EC) 40 MG TAB PO SCH (06:32)
[2018-03-01] MEDS: DILTIAZEM 60 MG TAB PO SCH ×2 (06:33→14:05)
[2018-03-01] MEDS: INSULIN ASPART [NOVOLOG] 3 ML PEN SC SCH ×3 (08:00→17:33)
[2018-03-01] MEDS: predniSONE 10 MG TAB PO SCH (08:15)
[2018-03-01] MEDS: APIXABAN 5 MG TABLET PO SCH (08:15)
[2018-03-01] MEDS: ATENOLOL 50 MG TAB PO SCH (08:16)
--- NOTE | 2018-03-01 10:05 | NUR ---
PT note Therapy day number 11 Subjective Denies pain Pain Scale NUMERIC Pain Intensity 0 (0-10) Patient Stated Goal for Pain Relief 0 (0-10) Pain Level Comment denies pain Pre Treatment Vital Signs Stable Yes Exercise Assessment Label Bilat Lower Extremity Exercise Type Active ROM Additional Exercise Comments sit to stands x5, squats x10 Transfer Training Start Time 10:05 Transfer Sit to Stand Ability Supervised Bed Transfer Ability Supervised Chair Transfer Ability Supervised Additional Mobility Comments with use of FWW Transfer Training End Time 10:20 Total Transfer Training Time 15 min (8-127) Gait Training Start Time 10:20 Gait Assist Levels Stand by Assist Assistive Devices Front Wheel Walker Ambulation Distance 100 feet Additional Gait Comments 100'x2, 50' with resting breaks in between Gait Training End Time 10:50 Total Gait Training Treatment Time 30 min (8-127) Static Sitting Balance Good Dynamic Sitting Balance Good Standing Static Balance Good Dynamic Standing Balance Fair Additional Balance Assessments Comments improved with use of FWW for dynamic standing Safety Judgement Good Activity Tolerance Fair Equipment Present IV pump Additional Equipment Present O2 2L Post Treatment Pain Intensity 0 0-10 Quality Indicators SOB Upon Exertion Variance Documentation See note Total Treament Time 45 min (8-127) Total Minutes 45 Total Units 3 PT Technical Record Comment S: Pt in bedside chair, agreeable to PT intervention. Pt cleared for activity per RN O: PT intervention completed, pt returned back to chair following therapy intervention with call light within reach and chair alarm activated. No reports of pain or dizziness with activity, shortness of breath with activity on 2L throughout. Spoke to RN regarding pt response to activity and PT plan of care. A: Patient presents with fair mobility throughout however requires UE support for balance. Pt requires frequent cues to improve breathing technique,with exertion. Patient requires verbal cues for sequencing for sit to stands to improve safety, but requires ongoing strengthening to improve fluidity. Patient receptive to education, PT reeducated on importance of ambulating with nursing staff outside of PT intervention P: progress balance, LE closed chain strengthening, reduce use of UE support and improve breathing compliance
--- NOTE | 2018-03-01 11:47 | CONS ---
Date/Time of Note Date/Time of Note DATE: 03/01/18 TIME: 11:45 Assessment/Plan Assessment/Plan Hospital Course Patient is alert, looks comfortable, no fevers Microbiology: All cultures negative Physical examination: Fragile well-developed elderly man who is awake in no distress. Head atraumatic normocephalic. Sclera nonicteric. Neck is supple. Chest rise symmetrical breath sounds with scattered crackles to the right. Heart: S1-S2. Abdomen soft, bowel sounds present. Extremities without cyanosis. Assessment: 1. Leukocytosis 2. Status post bilateral pneumonia 3. Right pneumothorax, status post chest tube discontinued, with residual sc emphysema 4. History of CVA 5. History of lung cancer 6. Atrial fibrillation 7. Large Left effusion Plan: Remains stable, pulmonary rec-s noted==> patient will need to have bronchoscopy performed once subcutaneous emphysema has completely resolved. Continue observing off abx Result Diagram: 02/27/18 0510 02/27/18 0510 Results 24hrs Laboratory Tests Test 02/28/18 12:05 02/28/18 17:26 02/28/18 22:41 03/01/18 07:59 Bedside Glucose 114 130 149 96 Consultation Date/Type/Reason Admit Date/Time Feb 07, 2018 at 13:54 Initial Consult Date Type of Consult id Requesting Provider: FIDEL GAVIN MD Exam/Review of Systems Vital Signs Vitals Vital Signs Date Temp Pulse Resp B/P (MAP) Pulse Ox O2 O2 Flow FiO2 Time Delivery Rate 03/01/18 98.4 58 18 117/54 99 Nasal 11:42 (75) Cannula 03/01/18 2.0 09:27 03/01/18 30 04:02 Intake and Output 02/28/18 02/28/18 03/01/18 1515:00 23:00 07:00 IntakeIntake Total 900 ml 640 ml 240 ml OutputOutput Total 750 ml 850 ml 1150 ml BalanceBalance 150 ml -210 ml -910 ml Medications Medications Current Medications IV Flush (NS 3 ml) 3 ml PER PROTOCOL IV ; Start 02/07/18 at 16:30 Ondansetron HCl (Zofran Inj) 4 mg Q6H PRN IV NAUSEA AND/OR VOMITING; Start 02/07/18 at 16:30 Acetaminophen (Tylenol Tab) 650 mg Q6H PRN PO PAIN LEVEL 1-3 OR FEVER; Start 02/07/18 at 16:30 Docusate Sodium (Colace) 100 mg Q12H PRN PO CONSTIPATION Last administered on 02/10/18at 20:07; Admin Dose 100 MG; Start 02/07/18 at 16:30 Diltiazem HCl (Cardizem) 60 mg Q8 PO Last administered on 03/01/18at 06:33; Admin Dose 60 MG; Start 02/07/18 at 17:00 Guaifenesin/ Dextromethorphan (Robitussin Dm Liquid Cup) 30 ml Q4H PRN PO COUGH Last administered on 02/26/18at 13:34; Admin Dose 30 ML; Start 02/09/18 at 12:30 Levalbuterol (Xopenex Neb) 1.25 mg Q4H RESP THERAPY PRN HHN wheezing Last administered on 02/14/18at 14:17; Admin Dose 1.25 MG; Start 02/11/18 at 00:00 Hydralazine HCl (Apresoline) 10 mg Q4H PRN IV SBP>170 Last administered on 02/16/18at 00:07; Admin Dose 10 MG; Start 02/11/18 at 10:30 Miscellaneous Information 1 ea NOTE XX ; Start 02/11/18 at 11:00 Glucose (Glutose) 15 gm Q15M PRN PO DECREASED GLUCOSE; Start 02/11/18 at 11:00 Glucose (Glutose) 22.5 gm Q15M PRN PO DECREASED GLUCOSE; Start 02/11/18 at 11:00 Dextrose (D50w Syringe) 25 ml Q15M PRN IV DECREASED GLUCOSE; Start 02/11/18 at 11:00 Dextrose (D50w Syringe) 50 ml Q15M PRN IV DECREASED GLUCOSE; Start 02/11/18 at 11:00 Glucagon (Glucagen) 1 mg Q15M PRN IM DECREASED GLUCOSE; Start 02/11/18 at 11:00 Glucose (Glutose) 15 gm Q15M PRN BUCCAL DECREASED GLUCOSE; Start 02/11/18 at 11:00 Oxycodone/ Acetaminophen (Percocet (5/ 325)) 1 tab Q4H PRN PO MODERATE PAIN LEVEL 4-6 Last administered on 02/18/18at 08:34; Admin Dose 1 TAB; Start 12/12/18 at 01:00 Lactulose (Enulose) 20 gm Q6H PRN PO CONSTIPATION Last administered on 02/14/18 14:33; Admin Dose 20 GM; Start 02/14/18 at 14:00 Insulin Aspart (Novolog Insulin Pen) NOVOLOG *MILD* ALGORITHM WITH MEALS BEDTIME SC Last administered on 02/27/18 22:02; Admin Dose 1 UNIT; Start 02/15/18 at 11:30 Atenolol (Tenormin) 50 mg BID PO Last administered on 03/01/18 08:16; Admin Dose 50 MG; Start 02/16/18 at 21:00 Apixaban (Eliquis) 2.5 mg BID PO Last administered on 03/01/18 08:15; Admin Dose 2.5 MG; Start 02/18/18 at 21:00 Prednisone (Prednisone) 10 mg DAILY PO Last administered on 03/01/18 08:15; Admin Dose 10 MG; Start 02/24/18 at 09:00 Pantoprazole (Protonix Tab) 40 mg DAILY@06 PO Last administered on 03/01/18at 06:32; Admin Dose 40 MG; Start 02/24/18 at 06:00 SUZANNE DANIELS NP Mar 01, 2018 11:47
--- NOTE | 2018-03-01 13:12 | CONS ---
Date/Time of Note Date/Time of Note DATE: 03/01/18 TIME: 13:11 Consult Date/Type/Reason Admit Date/Time Feb 07, 2018 at 13:54 Initial Consult Date Type of Consultation: Pulm Requesting Provider: FIDEL GAVIN MD Subjective Remains comfortable, main complaint is his cough. Objective Vital Signs Date Temp Pulse Resp B/P (MAP) Pulse Ox O2 O2 Flow FiO2 Time Delivery Rate 03/01/18 73 12:00 03/01/18 98.4 18 117/54 99 Nasal 11:42 (75) Cannula 03/01/18 2.0 09:27 03/01/18 30 04:02 Intake and Output 02/28/18 02/28/18 03/01/18 1515:00 23:00 07:00 IntakeIntake Total 900 ml 640 ml 240 ml OutputOutput Total 750 ml 850 ml 1150 ml BalanceBalance 150 ml -210 ml -910 ml Exam GENERAL: Elderly appearing gentleman comfortable at rest awake alert oriented VITAL SIGNS: per chart NECK: Supple. No JVD or lymphadenopathy. CARDIAC EXAM: S1, S2. No added sounds or murmurs. CHEST: Diminished air entry bilaterally with rales ABDOMEN: Soft, nontender. No guarding or rebound. EXTREMITIES: No cyanosis, clubbing or edema. NEUROLOGIC: Generalized weakness. No focal deficits. Results/Medications Result Diagram: 02/27/18 0510 02/27/18 0510 Results 24 hrs Laboratory Tests Test 02/28/18 17:26 02/28/18 22:41 03/01/18 07:59 03/01/18 11:56 Bedside Glucose 130 149 96 127 Medications Current Medications IV Flush (NS 3 ml) 3 ml PER PROTOCOL IV ; Start 02/07/18 at 16:30 Ondansetron HCl (Zofran Inj) 4 mg Q6H PRN IV NAUSEA AND/OR VOMITING; Start 02/07/18 at 16:30 Acetaminophen (Tylenol Tab) 650 mg Q6H PRN PO PAIN LEVEL 1-3 OR FEVER; Start 02/07/18 at 16:30 Docusate Sodium (Colace) 100 mg Q12H PRN PO CONSTIPATION Last administered on 02/10/18at 20:07; Admin Dose 100 MG; Start 02/07/18 at 16:30 Diltiazem HCl (Cardizem) 60 mg Q8 PO Last administered on 03/01/18at 06:33; Admin Dose 60 MG; Start 02/07/18 at 17:00 Guaifenesin/ Dextromethorphan (Robitussin Dm Liquid Cup) 30 ml Q4H PRN PO COUGH Last administered on 02/26/18at 13:34; Admin Dose 30 ML; Start 02/09/18 at 12:30 Levalbuterol (Xopenex Neb) 1.25 mg Q4H RESP THERAPY PRN HHN wheezing Last administered on 02/14/18at 14:17; Admin Dose 1.25 MG; Start 02/11/18 at 00:00 Hydralazine HCl (Apresoline) 10 mg Q4H PRN IV SBP>170 Last administered on 04/19/17at 00:07; Admin Dose 10 MG; Start 02/11/18 at 10:30 Miscellaneous Information 1 ea NOTE XX ; Start 02/11/18 at 11:00 Glucose (Glutose) 15 gm Q15M PRN PO DECREASED GLUCOSE; Start 02/11/18 at 11:00 Glucose (Glutose) 22.5 gm Q15M PRN PO DECREASED GLUCOSE; Start 02/11/18 at 11:00 Dextrose (D50w Syringe) 25 ml Q15M PRN IV DECREASED GLUCOSE; Start 02/11/18 at 11:00 Dextrose (D50w Syringe) 50 ml Q15M PRN IV DECREASED GLUCOSE; Start 02/11/18 at 11:00 Glucagon (Glucagen) 1 mg Q15M PRN IM DECREASED GLUCOSE; Start 02/11/18 at 11:00 Glucose (Glutose) 15 gm Q15M PRN BUCCAL DECREASED GLUCOSE; Start 02/11/18 at 11:00 Oxycodone/ Acetaminophen (Percocet (5/ 325)) 1 tab Q4H PRN PO MODERATE PAIN LEVEL 4-6 Last administered on 02/18/18at 08:34; Admin Dose 1 TAB; Start 02/13/18 at 01:00 Lactulose (Enulose) 20 gm Q6H PRN PO CONSTIPATION Last administered on 02/14/18at 14:33; Admin Dose 20 GM; Start 02/14/18 at 14:00 Insulin Aspart (Novolog Insulin Pen) NOVOLOG *MILD* ALGORITHM WITH MEALS BEDTIME SC Last administered on 02/27/18at 22:02; Admin Dose 1 UNIT; Start 02/15/18 at 11:30 Atenolol (Tenormin) 50 mg BID PO Last administered on 03/01/18at 08:16; Admin Dose 50 MG; Start 02/16/18 at 21:00 Apixaban (Eliquis) 2.5 mg BID PO Last administered on 03/01/18at 08:15; Admin Dose 2.5 MG; Start 02/18/18 at 21:00 Prednisone (Prednisone) 10 mg DAILY PO Last administered on 03/01/18at 08:15; Admin Dose 10 MG; Start 02/24/18 at 09:00 Pantoprazole (Protonix Tab) 40 mg DAILY@06 PO Last administered on 03/01/18at 06:32; Admin Dose 40 MG; Start 02/24/18 at 06:00 Assessment/Plan Chief Complaint/Hosp Course Assessment 1. Iatrogenic pneumothorax now status post chest tube placement following worsening hypoxemic respiratory failure. Resolving ptx on cxr. 2. Loculated left pleural effusion 3. History of atrial fibrillation 4. History of cardiomyopathy 5. History of COPD 6. Renal insufficiency Plan 1. Continue incentive spirometry 2. Encourage out of bed 3. Antibiotics per primary team Consider alf facility [place] planning okay from pulmonary standpoint AISHWARYA PICKARD MD, [facility] Mar 01, 2018 13:12
--- NOTE | 2018-03-01 13:27 | CONS ---
Date/Time of Note Date/Time of Note DATE: 03/01/18 TIME: 13:26 Assessment/Plan Assessment/Plan Hospital Course IMP: 1.AF-rate controlled 2.CHF-diastolic acute on chronic 3.HTN-reasonable control 4.Pleural effusion s/p thoracentesis c/b PTX now s/p CT. Now s/p thoracentesis on Left 5. Renal failure 6. Leukocytosis 7. anemia 8. SQ emphysema extensive-tracking up into face and around eye, continues to improve Recc: -Tele -Continue atenolol/dilt at current doses -Continue steroids/abx/bronchodilators -continue eliquis -Follow exam Result Diagram: 02/27/18 0510 02/27/18 0510 Results 24hrs Laboratory Tests Test 02/28/18 17:26 02/28/18 22:41 03/01/18 07:59 03/01/18 11:56 Bedside Glucose 130 149 96 127 Consultation Date/Type/Reason Admit Date/Time Feb 07, 2018 at 13:54 Initial Consult Date 02/07/18 Type of Consult cardiology Reason for Consultation PAF Requesting Provider: FIDEL GAVIN MD Exam/Review of Systems Vital Signs Vitals Vital Signs Date Temp Pulse Resp B/P (MAP) Pulse Ox O2 O2 Flow FiO2 Time Delivery Rate 03/01/18 73 12:00 03/01/18 98.4 18 117/54 99 Nasal 11:42 (75) Cannula 03/01/18 2.0 09:27 03/01/18 30 04:02 Intake and Output 02/28/18 02/28/18 03/01/18 1515:00 23:00 07:00 IntakeIntake Total 900 ml 640 ml 240 ml OutputOutput Total 750 ml 850 ml 1150 ml BalanceBalance 150 ml -210 ml -910 ml Exam Review of Systems: CONSTITUTIONAL: No fevers, chills. PULMONARY: No sob CARDIOVASCULAR: No chest pain/palpitations GASTROINTESTINAL: No nausea/vomiting. GENITOURINARY: No hematuria/dysuria. MUSCULOSKELETAL: No myagias/arthalgias. PSYCHIATRIC: The patient denies depression. NEUROLOGIC: No weakness Constitutional: alert Psych: no complaints Head: normocephalic ENMT: mucosa pink and moist Neck: supple, jvd (9 cm water) Respiratory: diminished breath sounds Cardiovascular: regular rate and rhythm Gastrointestinal: soft, non-tender Musculoskeletal: muscle tone (normal) Extremities: edema (none) 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: other (No focal deficits) Medications Medications Current Medications IV Flush (NS 3 ml) 3 ml PER PROTOCOL IV ; Start 02/07/18 at 16:30 Ondansetron HCl (Zofran Inj) 4 mg Q6H PRN IV NAUSEA AND/OR VOMITING; Start 02/07/18 at 16:30 Acetaminophen (Tylenol Tab) 650 mg Q6H PRN PO PAIN LEVEL 1-3 OR FEVER; Start 02/07/18 at 16:30 Docusate Sodium (Colace) 100 mg Q12H PRN PO CONSTIPATION Last administered on 02/10/18at 20:07; Admin Dose 100 MG; Start 02/07/18 at 16:30 Diltiazem HCl (Cardizem) 60 mg Q8 PO Last administered on 03/01/18at 06:33; Admin Dose 60 MG; Start 02/07/18 at 17:00 Guaifenesin/ Dextromethorphan (Robitussin Dm Liquid Cup) 30 ml Q4H PRN PO COUGH Last administered on 02/26/18at 13:34; Admin Dose 30 ML; Start 02/09/18 at 12:30 Levalbuterol (Xopenex Neb) 1.25 mg Q4H RESP THERAPY PRN HHN wheezing Last administered on 02/14/18at 14:17; Admin Dose 1.25 MG; Start 02/11/18 at 00:00 Hydralazine HCl (Apresoline) 10 mg Q4H PRN IV SBP>170 Last administered on 02/16/18at 00:07; Admin Dose 10 MG; Start 02/11/18 at 10:30 Miscellaneous Information 1 ea NOTE XX ; Start 02/11/18 at 11:00 Glucose (Glutose) 15 gm Q15M PRN PO DECREASED GLUCOSE; Start 02/11/18 at 11:00 Glucose (Glutose) 22.5 gm Q15M PRN PO DECREASED GLUCOSE; Start 02/11/18 at 11:00 Dextrose (D50w Syringe) 25 ml Q15M PRN IV DECREASED GLUCOSE; Start 02/11/18 at 11:00 Dextrose (D50w Syringe) 50 ml Q15M PRN IV DECREASED GLUCOSE; Start 02/11/18 at 11:00 Glucagon (Glucagen) 1 mg Q15M PRN IM DECREASED GLUCOSE; Start 02/11/18 at 11:00 Glucose (Glutose) 15 gm Q15M PRN BUCCAL DECREASED GLUCOSE; Start 02/11/18 at 11:00 Oxycodone/ Acetaminophen (Percocet (5/ 325)) 1 tab Q4H PRN PO MODERATE PAIN LEVEL 4-6 Last administered on 02/18/18 08:34; Admin Dose 1 TAB; Start 02/13/18 at 01:00 Lactulose (Enulose) 20 gm Q6H PRN PO CONSTIPATION Last administered on 04/17/17 14:33; Admin Dose 20 GM; Start 02/14/18 at 14:00 Insulin Aspart (Novolog Insulin Pen) NOVOLOG *MILD* ALGORITHM WITH MEALS BEDTIME SC Last administered on 02/27/18 22:02; Admin Dose 1 UNIT; Start 02/15/18 at 11:30 Atenolol (Tenormin) 50 mg BID PO Last administered on 03/01/18 08:16; Admin Dose 50 MG; Start 02/16/18 at 21:00 Apixaban (Eliquis) 2.5 mg BID PO Last administered on 03/01/18 08:15; Admin Dose 2.5 MG; Start 02/18/18 at 21:00 Prednisone (Prednisone) 10 mg DAILY PO Last administered on 03/01/18 08:15; Admin Dose 10 MG; Start 02/24/18 at 09:00 Pantoprazole (Protonix Tab) 40 mg DAILY@06 PO Last administered on 03/01/18 06:32; Admin Dose 40 MG; Start 02/24/18 at 06:00 CECE LOPEZ Mar 01, 2018 13:27
--- NOTE | 2018-03-01 14:23 | PN ---
Date/Time of Note Date/Time of Note DATE: 03/01/18 TIME: 14:22 Assessment/Plan VTE Prophylaxis Risk score (from Ns)>0 risk: 6 [place]CD applied [place]from [facility] [place] SCD contraindicated: DVT Pharmacological prophylaxis: NA/contraindicated Pharm contraindication: liver dx Lines/Catheters IV [facility] Saline Lock Urinary Cath still in place: No Assessment/Plan Hospital Course # Respiratory failure status post intubation on 02/12, post extubation #. Shortness of breath likely secondary to congestive heart failure/chronic obstructive pulmonary disease exacerbation. # right-sided pneumothorax status post thoracentesis, now with chest tube , subcutaneous emphysema, chest tube in place # Large left pleural effusion, status post thoracentesis in the past. Status post thoracentesis on 02/18/18 # History of chronic obstructive pulmonary disease. #. Atrial fibrillation with rapid ventricular response, controlled #. Hypertension. # EKG changes of atrial fibrillation with ST segment changes in the inferior leads. # History of lung cancer status post chemo and radiation.? NEW Lung metastases # History of coronary artery disease. #. Pleural effusion, status post thoracentesis. # Elevated BNP secondary to congestive heart failure. #. Hyponatremia, resolved. # History of peripheral vascular disease. # LEUKOCYTOSIS secondary to steroids # acute on chronic renal failure likely due to prerenal/ATN Overdiuresis, resolved # Mild hyperkalemia, resolved # extemepuffiness around the right eye due to extensive subcutaneous emphysema, and on the soft tissue CT> resolved Assessment/Plan -pt is d/charged. placement issue - chest xray +left sided effusion - sp removal -CW Eliquis -Taper prednisone - off abx wbc 15 - c w diltazem and atenolol - f/u cardiac and pul recs -cw PT Result Diagram: 02/27/18 0510 02/27/18 0510 Results 24hrs Laboratory Tests Test 02/28/18 17:26 02/28/18 22:41 03/01/18 07:59 03/01/18 11:56 Bedside Glucose 130 149 96 127 Subjective 24 Hr Interval Summary Free Text/Dictation pt is departing to SNF Musculoskeletal: restricted range of motion Exam/Review of Systems Vital Signs Vitals Vital Signs Date Temp Pulse Resp B/P (MAP) Pulse Ox O2 O2 Flow FiO2 Time Delivery Rate 03/01/18 73 12:00 03/01/18 98.4 18 117/54 99 Nasal 11:42 (75) Cannula 03/01/18 2.0 09:27 03/01/18 30 04:02 Intake and Output 02/28/18 02/28/18 03/01/18 1515:00 23:00 07:00 IntakeIntake Total 900 ml 640 ml 240 ml OutputOutput Total 750 ml 850 ml 1150 ml BalanceBalance 150 ml -210 ml -910 ml Exam pale Constitutional: alert, oriented Neck: supple Respiratory: diminished breath sounds Cardiovascular: regular rate and rhythm Gastrointestinal: soft Medications Medications Current Medications IV Flush (NS 3 ml) 3 ml PER PROTOCOL IV ; Start 02/07/18 at 16:30 Ondansetron HCl (Zofran Inj) 4 mg Q6H PRN IV NAUSEA AND/OR VOMITING; Start 02/07/18 at 16:30 Acetaminophen (Tylenol Tab) 650 mg Q6H PRN PO PAIN LEVEL 1-3 OR FEVER; Start 02/07/18 at 16:30 Docusate Sodium (Colace) 100 mg Q12H PRN PO CONSTIPATION Last administered on 02/10/18at 20:07; Admin Dose 100 MG; Start 02/07/18 at 16:30 Diltiazem HCl (Cardizem) 60 mg Q8 PO Last administered on 03/01/18at 14:05; Admin Dose 60 MG; Start 02/07/18 at 17:00 Guaifenesin/ Dextromethorphan (Robitussin Dm Liquid Cup) 30 ml Q4H PRN PO COUGH Last administered on 02/26/18at 13:34; Admin Dose 30 ML; Start 02/09/18 at 12:30 Levalbuterol (Xopenex Neb) 1.25 mg Q4H RESP THERAPY PRN HHN wheezing Last administered on 02/14/18at 14:17; Admin Dose 1.25 MG; Start 02/11/18 at 00:00 Hydralazine HCl (Apresoline) 10 mg Q4H PRN IV SBP>170 Last administered on 02/16/18at 00:07; Admin Dose 10 MG; Start 02/11/18 at 10:30 Miscellaneous Information 1 ea NOTE XX ; Start 02/11/18 at 11:00 Glucose (Glutose) 15 gm Q15M PRN PO DECREASED GLUCOSE; Start 02/11/18 at 11:00 Glucose (Glutose) 22.5 gm Q15M PRN PO DECREASED GLUCOSE; Start 02/11/18 at 11:00 Dextrose (D50w Syringe) 25 ml Q15M PRN IV DECREASED GLUCOSE; Start 02/11/18 at 11:00 Dextrose (D50w Syringe) 50 ml Q15M PRN IV DECREASED GLUCOSE; Start 02/11/18 at 11:00 Glucagon (Glucagen) 1 mg Q15M PRN IM DECREASED GLUCOSE; Start 02/11/18 at 11:00 Glucose (Glutose) 15 gm Q15M PRN BUCCAL DECREASED GLUCOSE; Start 02/11/18 at 11:00 Oxycodone/ Acetaminophen (Percocet (5/ 325)) 1 tab Q4H PRN PO MODERATE PAIN LEVEL 4-6 Last administered on 02/18/18 08:34; Admin Dose 1 TAB; Start 02/13/18 at 01:00 Lactulose (Enulose) 20 gm Q6H PRN PO CONSTIPATION Last administered on 02/14/18 14:33; Admin Dose 20 GM; Start 02/14/18 at 14:00 Insulin Aspart (Novolog Insulin Pen) NOVOLOG *MILD* ALGORITHM WITH MEALS BEDTIME SC Last administered on 02/27/18 22:02; Admin Dose 1 UNIT; Start 02/15/18 at 11:30 Atenolol (Tenormin) 50 mg BID PO Last administered on 03/01/18 08:16; Admin Dose 50 MG; Start 02/16/18 at 21:00 Apixaban (Eliquis) 2.5 mg BID PO Last administered on 03/01/18 08:15; Admin Dose 2.5 MG; Start 02/18/18 at 21:00 Prednisone (Prednisone) 10 mg DAILY PO Last administered on 03/01/18 08:15; Admin Dose 10 MG; Start 02/24/18 at 09:00 Pantoprazole (Protonix Tab) 40 mg DAILY@06 PO Last administered on 03/01/18 06:32; Admin Dose 40 MG; Start 02/24/18 at 06:00 JASPER SAHU Mar 01, 2018 14:23
--- NOTE | 2018-03-01 14:38 | PN ---
Date/Time of Note Date/Time of Note DATE: 03/01/18 TIME: 14:38 Assessment/Plan Lines/Catheters IV Catheter Type (from Nrsg): Saline Lock Bar in Place (from Nrsg): No Assessment/Plan Assessment/Plan HISTORY OF PRESENT ILLNESS: This is an 81-year-old female with a history of chronic kidney disease, hypertension, diabetes, admitted because of bilateral leg ulceration. The patient is currently being treated with local wound care, antibiotics and will be having a debridement. Cr 1.45 will need angio when OK by nephrology Subjective 24 Hr Interval Summary Constitutional: improved Pain Control: mild Exam/Review of Systems Vital Signs Vitals Vital Signs Date Temp Pulse Resp B/P (MAP) Pulse Ox O2 O2 Flow FiO2 Time Delivery Rate 03/01/18 73 12:00 03/01/18 98.4 18 117/54 99 Nasal 11:42 (75) Cannula 03/01/18 2.0 09:27 03/01/18 30 04:02 Intake and Output 02/28/18 02/28/18 03/01/18 1414:59 22:59 06:59 IntakeIntake Total 900 ml 640 ml 240 ml OutputOutput Total 750 ml 850 ml 1150 ml BalanceBalance 150 ml -210 ml -910 ml Exam Eyes: nl conjunctiva, EOMI, nl lids, nl sclera ENMT: nl external ears & nose, nl lips & teeth, nl nasal mucosa & septum, mucosa pink and moist Neck: supple, non-tender Respiratory: clear to auscultation, normal air movement Cardiovascular: regular rate and rhythm, nl pulses Gastrointestinal: soft, nl liver, spleen, non-tender Musculoskeletal: nl extremities to inspection, nl gait and stance Results Result Diagram: 02/27/18 0510 02/27/18 0510 SHIRA ORTIZ MD Mar 01, 2018 14:38
--- NOTE | 2018-03-01 15:20 | NUR ---
GEMMA NOTE RECEIVED A CALL FROM EVELYN AT [facility] AND AUTH WAS GIVEN TO [facility] INSTEAD OF [facility]. PT MADE AWARE AND IS AGREEABLE PER HIM HE LIVES NEAR [facility] MORE CONVENIENT TO HIM, AMBULANCE ARRANGED WITH [facility] [phone] AND PT WILL TRANSFER TO [facility]. ALL NEEDED PAPER WORK ON THE CHART. TRIP NUMBER [id number] ARRANGED FOR [facility] [employer]. Addendum: 03/01/18 at 1524 by DOLLY LUNDBERG RN, CM PER PT HE WILL NOTIFY HIS FRIENDS OF THE TRANSFER.
--- NOTE | 2018-03-01 18:12 | NUR ---
RN NOTE DC TH PT TO SNF AT 1745 VIA AMBULANCE WITH ALL HIS BELONGING AND DC PACKAGE GIVEN TO TRANSPORT , REPORT GIVEN TO JONATHON . ALL THE QUESTIONS HAS BEEN ANSWERED .
--- NOTE | 2018-03-02 19:37 | DS ---
DATE OF ADMISSION: 02/07/2018 DATE OF DISCHARGE: 03/01/2018 HISTORY OF PRESENTING ILLNESS AND HOSPITAL COURSE: A 77-year-old male with a past medical history of hypertension, hyperlipidemia, COPD, CKD, atherosclerotic heart disease, history of lung cancer statu s post radiation, hypoxic respiratory distress, history of left-sided effusion left lower lobe, anemi a, AFib, cardiomyopathy, history of carotid endarterectomy, CVA, presented to the emergency [facility] complaining of shortness of breath for 1 week. The patient has been followed by Dr. Hall' offic e and then is followed by Dr. Saleh as an outpatient. The patient was not sure if he was taking Lasi x at home. The patient have those only listed, did not know the names. On admission, patient had la bs, showed sodium of 132, potassium 4.8, chloride 95, BUN of 15, creatinine 1.10. BNP 9320. White c ount of 11.5. ABG showed pH of 7.2, pCO2 of 31, pO2 of 898, bicarbonate of 19. Chest x-ray shows la rge left-sided pleural effusion, dense mid to left lower lung consolidations, atelectasis, small righ t effusion. The patient was given Solu-Medrol, magnesium, albuterol, Atrovent, Vasotec, aspirin, Las ix, nitroglycerin for further management. Shortness of breath was likely due to CHF and COPD disease exacerbation. The patient had large left pleural effusion. The patient was also started on aspirin , Lasix and steroids. The patient was put on BiPAP. Echo was also done by Dr. Hall that showed E F of 55%, normal right ventricular systolic function. The patient was also seen by Dr. Guajardo for p ulmonary consultation. It was questionable whether the pleural effusion is malignant. Thoracentesis was ordered; however, thoracentesis was done by radiology as Dr. Roper had reviewed it was done in th e right and started at the left. However, according to him, when he had reviewed, the left effusion appeared loculated, however, the right one appeared he had more fluid. Post-thoracentesis, patient d eveloped a pneumothorax. The patient was seen by Dr. Viera over the weekend and had a chest CT on 02/09/2018 that showed moderate right-sided pneumothorax, moderate bilateral pleural effusions, prev iously noted left lower mass not visualized, new ground glass nodules within the right upper lobe whe re we found new primary lung cancer metastatic disease. The patient was, however, significantly gett ing short of breath. Per pulmonary, patient would likely need a small-bore catheter insertion; [facility], per them, it was the weekend, the patient can get a bore insertion needle over the weekend in the a.m. since the patient was getting significant short of breath; however, on , patient became martha rt of breath, he was transferred to ICU, got intubated, had a pneumothorax, had a chest tube that was placed by the ER physician. The patient was also seen by Dr. Olvera. The patient was put on patrice st tube suction. Repeated chest x-rays were followed. The patient was intubated and finally he got extubated and cardiothoracic evaluation was followed. Recommendations were followed. The patient wa s also seen by oncology consultation with Dr. Mantilla. Chest tube only had than 30 mL output. The patient developed subcutaneous emphysema after clamping the tube. The patient was again transferred to ICU and was transferred back. The patient was seen by cardiothoracic surgery. The patient had wa kristan and waning course, in and out of the ICU. Multiple consultants had had been following him. Charly kirk, the patient was transferred back again to telemetry. Chest tube had been clamped and was taken out. The patient had some residual subcutaneous emphysema on the right. Per Dr. Olvera's recomm endation, if patient continues to have subcutaneous erythema, will likely need VATS; however, chest t ube was taken out. The patient was better, but still had persistent subcutaneous emphysema. Per Dr. Holder, patient again had left-sided thoracentesis. Per Dr. Holder, patient will likely need bronchos copy evaluation once subcutaneous emphysema is resolved. Because of history of recent pneumothorax, patient has high risk of a recurrence if intubated for bronchoscopy and the cytology was negative. T he patient is currently being discharged to a SNF, he will follow up with pulmonary. FINAL DISCHARGE DIAGNOSES: 1. Respiratory failure, status post intubation, status post extubation secondary to pneumothorax and respiratory distress. 2. Initial shortness of breath likely secondary to CHF, COPD. 3. Right-sided pneumothorax status post thoracentesis with chest tube with subcutaneous emphysema. Chest tube was removed. 4. Large left pleural effusion, status post thoracentesis in the past, status post thoracentesis aga in on 02/18/2018. 5. History of COPD. 6. AFib. 7. Hypertension. 8. History of lung cancer; however, cytology this time is negative. 9. History of coronary artery disease. 10. Elevated BNP. 11. Hyponatremia. 12. History of peripheral vascular disease. 13. History of acute on chronic renal failure due to prerenal ATN, over diuresis, resolved. 14. History of extreme puffiness around right eye due to extensive subcutaneous emphysema that had r esolved. DISCHARGE CONDITION: Stable. DISCHARGE MEDICATIONS: 1. Prednisone tapering 10 mg for 3 days and then 5 mg for 2 days and discontinue. 2. Eliquis 2.5 b.i.d. 3. Protonix 40. 4. Atenolol 50. 5. Percocet 1 tab p.o. q.4h. p.r.n. pain. 6. Xopenex. 7. Diltiazem 60 mg p.o. q.8h. PLAN: The patient will be followed by PCP 1 to 2 weeks, pulmonary 1 to 2 weeks. The patient will need repe at chest x-ray in 2 weeks. The patient will likely need bronchoscopy. Dictated By: FIDEL HOGAN/JACQUELINE Conf#: [id number] DID#: [id number] CC: FIDEL GAVIN;*EndCC*
== END 2018-03-01 18:05 | DRG 208 ==
LOC: E/R 12:01 → TEL 13:54 → ICU 02-10 22:43 → 6WM 02-14 10:08 → ICU 02-15 05:18 → 6WM 02-19 19:09
PROVIDERS: ADMIT Internal Medicine; ATTEND Internal Medicine
PROC: 5A09357 Assistance with Respiratory Ventilation, Less than 24 Consecutive Hours, Continuous Positive Airway Pressure (ICD-10-PCS; 2018-02-07)
PROC: 0W993ZX Drainage of Right Pleural Cavity, Percutaneous Approach, Diagnostic (ICD-10-PCS; 2018-02-08)
PROC: 5A1945Z Respiratory Ventilation, 24-96 Consecutive Hours (ICD-10-PCS; principal; 2018-02-11)
PROC: 0BH18EZ Insertion of Endotracheal Airway into Trachea, Via Natural or Artificial Opening Endoscopic (ICD-10-PCS; 2018-02-11)
PROC: 0W9930Z Drainage of Right Pleural Cavity with Drainage Device, Percutaneous Approach (ICD-10-PCS; 2018-02-11)
PROC: 0W9B3ZZ Drainage of Left Pleural Cavity, Percutaneous Approach (ICD-10-PCS; 2018-02-18)
DX: J44.1 Chronic obstructive pulmonary disease with (acute) exacerbation (principal); N17.0 Acute kidney failure with tubular necrosis; J18.9 Pneumonia, unspecified organism; J96.91 Respiratory failure, unspecified with hypoxia; I50.33 Acute on chronic diastolic (congestive) heart failure; E87.2 Acidosis; I13.0 Hypertensive heart and chronic kidney disease with heart failure and stage 1 through stage 4 chronic kidney disease, or unspecified chronic kidney disease; I42.9 Cardiomyopathy, unspecified; J90 Pleural effusion, not elsewhere classified; E87.1 Hypo-osmolality and hyponatremia; J95.811 Postprocedural pneumothorax; N18.9 Chronic kidney disease, unspecified; E78.5 Hyperlipidemia, unspecified; I25.10 Atherosclerotic heart disease of native coronary artery without angina pectoris; Y84.4 Aspiration of fluid as the cause of abnormal reaction of the patient, or of later complication, without mention of misadventure at the time of the procedure; Y92.238 Other place in hospital as the place of occurrence of the external cause; J98.2 Interstitial emphysema; I48.2 Chronic atrial fibrillation; I73.9 Peripheral vascular disease, unspecified; Z85.118 Personal history of other malignant neoplasm of bronchus and lung
CPT/HCPCS: 31500; 36600; 70360; 71045; 71250; 76942; 80048; 80053; 80202; 81001; 82042; 82550; 82553; 82565; 82803; 82962; 83036; 83615; 83690; 83735; 83880; 84100; 84157; 84300; 84436; 84479; 84484; 84520; 85025; 85610; 85730; 87070; 87081; 87102; 87116; 88104; 88305; 88341; 88342; 89051; 90686; 92526; 92610; 93005; 93306; 94002; 94003; 94640; 94644; 94660; 94664; 94770; 96374; 96375; 97110; 97116; 97162; 97530; A4310; C9113; J0360; J0692; J1815; J1940; J2060; J2930; J3370; J3475; J3480; J7040; J7050; J7512

== ENCOUNTER → 2018-06-19 | Outpatient (CLI) | payer BC ==
[~2018-06-19] MED LIST changes: -BISA5TAB6 PO; -CODE5LIQ2 PO; +DIGO125T93 PO; -HYDR-3601 PO; -LEVO250T22 PO; -MET40I IV; +POLY17PO28 PO; -POLY17PO3 PO; -Promethazine/Codeine Syp PO; -TEM15CR5 TOP
== END | disposition home or self-care (01) ==
LOC: LAB 09:11
PROVIDERS: ATTEND Internal Medicine Nephrology
DX: J44.9 Chronic obstructive pulmonary disease, unspecified (principal)
CPT/HCPCS: 80053; 80061; 85025

== ENCOUNTER 2018-07-11 08:54 | Inpatient (IN) | payer BC ==
[~2018-07-11] VITALS: Ht 177.8 cm; Wt 68.6 kg
--- NOTE | 2018-07-11 11:29 | ERD ---
ER Documentation Chief Complaint Chief Complaint Pt present with c/o SOB couple weeks, worst today. HPI This is an 78-year-old male with a past medical history of hypertension, hyperlipidemia, CHF, COPD, pleural effusions, atrial fibrillation who is presenting with progressive worsening shortness of breath. The patient has required previous admissions for diuresis. Over the last few weeks, the patient endorses increasing dyspnea and a nonproductive cough. The patient reports symptoms getting much worse over the last 2 to 3 days. The patient denies any chest pain or chest tightness. He has not had any wheezing. The patient denies feeling sick recently. The patient denies fever or chills. The patient has had no headache or vision changes. The patient does not endorse neck or back pain. The patient denies lightheadedness or dizziness. The patient denies nausea or vomiting. The patient denies abdominal pain. The patient denies changes to bowel movements or urination. The patient has had no focal deficits. The patient has had no weakness or numbness or tingling to the face or extremities. ROS All systems reviewed and are negative except as per history of present illness. Medications Home Meds Active Scripts Pantoprazole* (Pantoprazole*) 40 Mg Tablet.dr, 40 MG PO DAILY@06 for 14 Days Prov:KARLEY DEAN MD 08/08/16 Aspirin (Aspirin) 81 Mg Chew, 81 MG PO DAILY for 28 Days, TAB Prov:KARLEY DEAN MD 08/08/16 Diltiazem Hcl* (Cardizem*) 60 Mg Tablet, 60 MG PO Q8 for 30 Days, TAB Prov:KARLEY DEAN MD 08/08/16 Atenolol* (Atenolol*) 50 Mg Tablet, 50 MG PO BID for 28 Days, TAB Prov:KARLEY DEAN MD 08/08/16 Apixaban* (Eliquis*) 5 Mg Tablet, 2.5 MG PO BID for 28 Days, TAB Prov:KARLEY DEAN MD 08/08/16 Ipratropium-Albuterol (Ipratropium-Albuterol) 0.5-3 Mg/3 Ml Ampul.neb, 3 ML HHN Q4H RESP THERAPY for 28 Days Prov:KARLEY DEAN MD 08/08/16 Reported Medications Digoxin* (Lanoxin*) 0.125 Mg Tablet, 0.125 MG PO DAILY, TAB 02/07/18 Furosemide* (Lasix*) 40 Mg Tablet, 40 MG PO DAILY, TAB 01/31/16 Bupropion Hcl* (Bupropion Hcl SR*) 150 Mg Tablet.er, 150 MG PO DAILY, TAB.SA 08/18/15 Cilostazol* (Cilostazol*) 50 Mg Tablet, 50 MG PO BID, TAB 08/18/15 Polyethylene Glycol* (Polyethylene Glycol*) 17 Gm Powd.pack, 8.5 GM PO DAILY, PACKET 08/31/14 Allergies Allergies: Coded Allergies: No Known Allergy (Unverified , 02/06/16) PMhx/Soc History of Surgery: Yes (Left artery decloted per patient) Anesthesia Reaction: No Hx 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 Disorder: No Hx Respiratory Disorders: Yes (COPD, pleural effusions) Hx Cardiac Disorders: Yes (Hypertension, hyperlipidemia, CHF, atrial fibrillat ion) Hx Psychiatric Problems: No Hx Miscellaneous Medical Probl: No Hx Alcohol Use: Yes (1 beer a day) Hx Substance Use: No Hx Tobacco Use: Yes (3 cigarette per day) Smoking Status: Former smoker FmHx Family History: No diabetes Physical Exam Vitals Vital Signs Date Temp Pulse Resp B/P (MAP) Pulse Ox O2 O2 Flow FiO2 Time Delivery Rate 07/11/18 79 31 143/91 98 Nasal 11:32 (108) Cannula 07/11/18 Nasal 2 10:21 Cannula 07/11/18 98.5 76 22 189/84 95 08:55 (119) Physical Exam Const: No apparent distress, well-developed, well-nourished Head: Normocephalic, Atraumatic Eyes: Normal Conjunctiva. Extraocular movements intact. Pupils equal, round and reactive to light ENT: Normal External Ears, Nose and Mouth. Neck: Full range of motion. No meningismus. Resp: Bilateral rales. No wheezes or rhonchi Cardio: Irregularly irregular rhythm. Regular rate. No murmurs, rubs or gallops Abd: Soft, non tender, non distended. Normal bowel sounds Skin: No petechiae or rashes Back: No midline tenderness. No CVA tenderness Ext: No cyanosis. Bilateral lower extremity nonpitting edema. Neur: Awake and alert, oriented 4. Cranial nerves intact. No facial droop. Normal strength, sensation and coordination. Psych: Normal Mood and Affect Result Diagram: 07/11/18 1104 07/11/18 1104 Results 24 hrs Laboratory Tests Test 07/11/18 11:04 White Blood Count 12.1 10^3/ul Red Blood Count 4.27 10^6/ul Hemoglobin 12.5 g/dl Hematocrit 37.7 % Mean Corpuscular Volume 88.3 fl Mean Corpuscular Hemoglobin 29.3 pg Mean Corpuscular Hemoglobin Concent 33.2 g/dl Red Cell Distribution Width 14.3 % Platelet Count 319 10^3/UL Mean Platelet Volume 9.1 fl Immature Granulocytes % 0.500 % Neutrophils % 77.0 % Lymphocytes % 11.8 % Monocytes % 9.8 % Eosinophils % 0.7 % Basophils % 0.2 % Nucleated Red Blood Cells % 0.0 /100WBC Immature Granulocytes # 0.060 10^3/ul Neutrophils # 9.3 10^3/ul Lymphocytes # 1.4 10^3/ul Monocytes # 1.2 10^3/ul Eosinophils # 0.1 10^3/ul Basophils # 0.0 10^3/ul Nucleated Red Blood Cells # 0.0 10^3/ul Prothrombin Time 14.8 Sec Prothrombin Time Ratio 1.2 INR International Normalized Ratio 1.15 Sodium Level 134 mmol/L Potassium Level 4.1 mmol/L Chloride Level 94 mmol/L Carbon Dioxide Level 33 mmol/L Anion Gap 7 Blood Urea Nitrogen 18 mg/dl Creatinine 1.29 mg/dl Est Glomerular Filtrat Rate mL/min mL/min Glucose Level 122 mg/dl Calcium Level 9.1 mg/dl Troponin I 0.161 ng/ml B-Type Natriuretic Peptide 61061 PG/ML Current Medications Medications Dose Sig/Yamileth Start Time Status Last (Trade) Ordered Route PRN Stop Time Admin Dose Reason Admin Furosemide 40 mg ONCE ONCE 07/11/18 DC 07/11/18 (Lasix) IV 12:00 07/11/18 12:00 12:01 Ondansetron 4 mg ER BRIDGE 07/11/18 HCl (Zofran PRN IV 12:00 Inj) NAUSEA/VOMITI 07/12/18 11:59 NG 650 mg ER BRIDGE 07/11/18 Acetaminophen PRN PO 12:00 (Tylenol .MILD PAIN 07/12/18 11:59 Tab) 1-3 OR TEMP Procedures/MDM MDM The patient's presentation warrants further investigation. Previous medical records, if available, were reviewed. LABS The patient's laboratory testing was obtained and reviewed. No emergent treatment was required unless described below. CBC: Leukocytosis without shift, likely reactive. Normocytic anemia, nonemergent. Normal platelet count. Chemistry: No E/o severe acidosis or chronic kidney disease. Diabetic ketoacidosis. Metabolic alkalosis, likely compensatory from COPD and respiratory acidosis. PT/INR: No E/o significant coagulopathy Troponin: E/o ischemia, though this is in the setting of chronic kidney disease BNP: E/o heart failure, though this is in the setting of chronic kidney disease EKG EKG read by me: Rate/Rhythm: Atrial fibrillation at 76 bpm irregularly irregular rhythm. Regular rate.. Intervals: Normal QRS and QTc. [place]: Normal Impression: T wave inversions in the inferolateral leads. No ST changes conc erning for STEMI. Atrial fibrillation IMAGING Imaging and Radiology interpretation reviewed. CXR FINDINGS: The heart is enlarged. The thoracic aorta is calcified. There is mild to moderate pulmonary vascular congestion. There are bilateral perihilar and lower lobe infiltrates. There is a moderate left pleural effusion and a small to moderate right pleural effusion. There is no pneumothorax. IMPRESSION: Mild cardiomegaly. Calcified aorta consistent with atherosclerotic disease. Mild to moderate pulmonary vascular congestion. Moderate left pleural effusion and small to moderate right pleural effusion. Electronically viewed and signed by .David Hawk MD, on 07/11/2018 10:40 TREATMENT/DISPOSITION The patient presents for progressive worsening shortness of breath. There is evidence of a CHF exacerbation. This will require treatment in the hospital. The patient was given a dose of Lasix in the emergency department. The patient does have nonspecific changes on the EKG including T wave inversions in the inferolateral leads. The patient's troponin is elevated. While he does not endorse symptoms of acute coronary syndrome, and an NSTEMI is certainly a possibility. The patient was given aspirin in the emergency department. The patient's chest xray does not reveal pneumonia or pneumothorax. The patient does not have a widened mediastinum and does not have signs or symptoms concerning for thoracic aortic aneurysm or dissection. The patient does not have pneumomediastinum or signs concerning for esophageal tear or rupture. The patient has no clinical or radiographic signs of pericardial effusion or tamponade. The patient does not have pneumoperitoneum and I have decreased suspicion of viscus perforation as possible referred pain. The patient is not wheezing and I do not suspect a COPD exacerbation at this time. The patient is not tachypneic or hypoxic. The patient is breathing comfortably and without pleuritic pain. The patient is not on hormonal therapy. The patient has no history of clotting or bleeding disorders. The patient has no calf tenderness. The patient has had no hemoptysis. I have decreased suspicion for PE. ADMISSION At this time, I feel that the patient requires admission for further evaluation and management. The patient will be admitted to Dr. Roberson in accordance with the patient's insurance. The patient was accepted at 12:00PM on 07/11/2018. Disclaimer: Inadvertent spelling and grammatical errors are likely due to EHR /dictation software use and do not reflect on the overall quality of patient care. Note that the electronic time recorded on this note does not necessarily reflect the actual time of the patient encounter. Departure Diagnosis: Primary Impression: Acute exacerbation of CHF (congestive heart failure) Heart failure type: unspecified Qualified Codes: I50.9 - Heart failure, unspecified Additional Impressions: Shortness of breath Pleural effusion Leukocytosis Leukocytosis type: unspecified Qualified Codes: D72.829 - Elevated white blood cell count, unspecified Normocytic anemia Chronic kidney disease Chronic kidney disease stage: unspecified stage Qualified Codes: N18.9 - Chronic kidney disease, unspecified Metabolic alkalosis Elevated brain natriuretic peptide (BNP) level Elevated troponin NSTEMI (non-ST elevated myocardial infarction) Condition: Serious JENARO GILMORE MD July 11, 2018 11:29
[2018-07-11] MEDS ORDERED: ACETAMINOPHEN 325 MG TAB PO PRN ×2 (12:00→17:30)
[2018-07-11] MEDS ORDERED: ONDANSETRON 4 MG INJ IV PRN ×2 (12:00→17:30)
[2018-07-11] MEDS ORDERED: FUROSEMIDE 40 MG INJ IV ONE ×2 (12:00→17:30)
[2018-07-11] MEDS ORDERED: GUAI120S25 PO (12:52)
[2018-07-11] MEDS ORDERED: ASPIRIN 81 MG TAB PO ONE (13:00)
[2018-07-11] MEDS ORDERED: PANT40TA4 PO (13:03)
[2018-07-11] MEDS ORDERED: PROM5SYR2 PO (13:03)
[2018-07-11] MEDS ORDERED: POTA-57 PO (13:03)
[2018-07-11] MEDS ORDERED: AMOX1TAB10 PO (13:03)
[2018-07-11] MEDS ORDERED: ALBU8.5H8 INH (13:03)
[2018-07-11] MEDS ORDERED: DABI75CA2 PO (13:03)
[2018-07-11] MEDS ORDERED: MAGN400O19 PO (13:03)
[2018-07-11] MEDS ORDERED: ALBUTEROL/IPRATROPIUM (NEB) 3 ML AMP HHN STA (17:23)
--- NOTE | 2018-07-11 17:29 | QN ---
Documentation Comment PT SEEN AND EXAMIEND FIDEL GAVIN MD July 11, 2018 17:29
[2018-07-11] MEDS ORDERED: NACL 0.9% 3 ML SYG IV SCH (17:30)
[2018-07-11] MEDS ORDERED: METHYLPREDNISOLONE 125 MG INJ IV ONE (18:00)
[2018-07-11] MEDS ORDERED: CEFTRIAXONE 1 GM/50 ML (PMX) 50 ML IVPB SCH (18:00)
[2018-07-11 18:48] VITALS: BP 124/87; PULSE 83; RESP 19
[2018-07-11 18:50] VITALS: PULSE 91
[2018-07-11] MEDS: FUROSEMIDE 40 MG INJ IV SCH (18:55)
[2018-07-11 20:00] VITALS: BP 120/72; PULSE 82; PULSE 83; RESP 18
[2018-07-11] MEDS: ALBUTEROL/IPRATROPIUM (NEB) 3 ML AMP HHN SCH (20:06)
--- NOTE | 2018-07-11 20:06 | HP ---
DATE OF ADMISSION: 07/11/2018 REASON FOR ADMISSION: Shortness of breath. HISTORY OF PRESENTING ILLNESS: This is an 78-year-old male with a past medical history of hypertensi on, hyperlipidemia, history of AFib, history of left-sided pleural effusion, status post thoracentesi s, COPD, CKD, left lower lobe pneumonia, cardiomyopathy, EF of 35% to 40%, history of carotid endarte rectomy, who was recently admitted in 02/2018 for chest pain, shortness of breath. At that time, the patient had a complicated course and also in ICU, also had a thoracentesis, had developed pneumothor ax. The patient was intubated and had extubation, also had right-sided pneumothorax, large left effu betzy. [facility]. According to the patient, the ulices tavarez had been living at home. He came to the emergency department complaining of shortness of breat h for the past few days. The patient is also having increased dyspnea and nonproductive cough. Nabor ed any chest pain or chest tightness. On arrival to ED, vital signs show temperature 98.5, heart rat e 76, respirations 22, blood pressure initial 189/84. The patient had a white count of 12.1, BUN of 18, creatinine 1.29, bicarbonate of 33. EKG showed AFib, irregularly irregular rhythm, T-wave invers ions in inferolateral leads. Chest x-ray shows mild to moderate pulmonary vascular congestion, moder ate left pleural effusion, small to moderate right pleural effusion. The patient was given IV Lasix, Zofran, Tylenol and was admitted for further management. The patient was also given aspirin. PAST MEDICAL HISTORY: 1. Hypertension. 2. Hyperlipidemia. 3. History of COPD. 4. History of CHF. 5. History of lung cancer status post radiation. 6. History of left-sided effusion, status post thoracentesis. 7. AFib. 8. Coronary artery disease. 9. Peripheral vascular disease. 10. CKD. 11. History of left lung effusion, status post thoracentesis with chest tube with subcutaneous emphy sema and status post thoracentesis. ALLERGIES: NO KNOWN DRUG ALLERGIES. FAMILY HISTORY: Negative. SOCIAL HISTORY: Lives by himself at home. PAST SURGICAL HISTORY: History of carotid endarterectomy, history of multiple thoracenteses, history of chest tube placement, history of lung cancer. MEDICATIONS TAKING AT HOME: 1. Lasix. 2. Amoxicillin. 3. Albuterol. 4. Atrovent. 5. Pradaxa 75 b.i.d. 6. Digoxin 0.125. 7. Lasix 40. 8. Potassium chloride 40 b.i.d. 9. Promethazine. 10. Milk of Magnesia. 11. Pantoprazole. REVIEW OF SYSTEMS: The patient is complaining of extreme shortness of breath, some cough. Denied an y chest pain. Denied any abdominal pain, nausea, vomiting, diarrhea, headache, blurry vision. PHYSICAL EXAMINATION: VITAL SIGNS: Currently, blood pressure 142/93, afebrile, heart rate 98, respirations 22, saturating 95% on 3 liters. GENERAL: The patient is awake, alert; however, in mild to moderate distress secondary to shortness o f breath. HEENT: Pupils are equal, round, reactive to light. NECK: Supple. HEART: Irregularly irregular. LUNGS: Diffuse bilateral crackles mostly on the left side. ABDOMEN: Soft, nontender, nondistended. EXTREMITIES: There is 1+ edema. NEUROLOGIC: Nonfocal. LABORATORY DATA: Sodium 134, bicarbonate 33, BUN of 18, creatinine 1.29. [place] 0[place] [address]. White count 12.1, hemoglobin 12.5, platelet count 319. DIAGNOSTIC DATA: EKG showed T-wave inversions in inferolateral leads. ASSESSMENT AND PLAN: This is an 78-year-old male who presented with: 1. Shortness of breath likely secondary to congestive heart failure evident on chest x-ray and could have some underlying chronic obstructive pulmonary disease. 2. Elevated troponin with EKG changes likely secondary to non-ST elevation myocardial infarction. 3. Elevated BNP secondary to congestive heart failure. 4. Hypertension. 5. Hyperlipidemia. 6. History of congestive heart failure and cardiomyopathy. 7. History of chronic atrial fibrillation. 8. Hyperlipidemia. 9. History of lung cancer. 10. Chronic kidney disease. 11. History of pneumothorax status post chest tube placement. PLAN: At this period of time, the patient will be admitted to [facility]. We will start the patient on IV Lasix. Serial troponins, EKG, aspirin, statin, beta kayleigh and blood thinners. Cardiology consult ation has been requested. We will also get a stat ABG. Rest of the treatment will depend on the pat ient's hospitalization course. Dictated By: FIDEL HOGAN/JACQUELINE Conf#: [id number] DID#: [id number] CC: CECE LOPEZ MD;*EndCC*
[2018-07-11 20:50] VITALS: Ht 177.8 cm; Wt 68.6 kg
--- NOTE | 2018-07-11 22:35 | CONS ---
DATE OF ADMISSION: 07/11/2018 DATE OF CONSULTATION: 07/11/2018 REASON FOR CONSULTATION: Positive troponin. REQUESTING PHYSICIAN: Do Gavin M.D. HISTORY OF PRESENT ILLNESS: Mr. Nielsen is an 78-year-old male known to myself from prior hospital ad missions with a history of atrial fibrillation, congestive heart failure, most recently diastolic by echo, hypertension, chronic obstructive pulmonary disease, who presented with shortness of breath. U raymon arrival, temperature of 98.5, blood pressure 189/84, pulse 76, respiratory rate 22, satting 95%. The patient's labs showed white count of 12.1, hemoglobin 12.5, platelet count 319, sodium 134, pota ssium 4.1, creatinine 1.39, BUN 18. Troponin 0.161. BNP 24,900. INR 1.1. ABG with pH of 7.462, a pO2 of 138, a pCO2 of 43. The patient underwent a chest x-ray revealed mild cardiomegaly, calcified aorta consistent with osteonecrotic disease, mild to moderate pulmonary vascular congestion, moderate left pleural effusion, small to moderate right pleural effusion. The patient's electrocardiogram re vealed atrial fibrillation at a rate of 76 with normal axis, normal intervals, nonspecific ST abnorma lities diffusely. The patient was treated with Lasix x1, aspirin, bronchodilators and steroids, now admitted to floor. Since transferred to the floor, the patient continues to have shortness breath. He denies chest pain. PAST MEDICAL HISTORY: As above in HPI. MEDICATIONS CURRENTLY IN HOSPITAL: 1. Protonix 40 mg daily. 2. Albuterol. 3. Atrovent. 4. DuoNeb. 5. Ceftriaxone IV x1. 6. Lasix 40 mg IV b.i.d. 7. Zofran p.r.n. 8. Tylenol p.r.n. 9. Colace p.r.n. ALLERGIES: NO KNOWN DRUG ALLERGIES. SOCIAL HISTORY: No prior tobacco, no ETOH or illicit drug use. FAMILY HISTORY: No history of sudden cardiac or early CAD. REVIEW OF SYSTEMS: As above in HPI. CONSTITUTIONAL: No fevers, chills. PULMONARY: Shortness of breath. CARDIOVASCULAR: No current chest pain. GASTROINTESTINAL: No vomiting. GENITOURINARY: No hematuria. MUSCULOSKELETAL: Degenerative joint disease. PSYCHIATRIC: No documented psych history. NEUROLOGIC: No documented CVA. ENDOCRINE: No documented history of diabetes mellitus. PHYSICAL EXAMINATION: VITAL SIGNS: Temperature 97.4, blood pressure 124/87, pulse 83, satting 99%. GENERAL: The patient is alert, awake. No complaint of shortness breath. NECK: JVP approximately 9 cm of water. CHEST: Decreased air movement throughout. HEART: Irregularly irregular, I/ systolic murmur, nondisplaced PMI. ABDOMEN: Positive bowel sounds, soft. EXTREMITIES: No significant pitting edema, 1+ pulses bilateral posterior tibials. LABORATORY DATA: Most recently from today, white count of 12.1, hemoglobin 12.5, platelet count of 3 19. Sodium 134, potassium 4.1, creatinine 1.39. BNP 24,900. Troponin 0.161. IMAGING STUDIES: As above in HPI. No further assess for my review at this time. ECG: Atrial fibrillation, rate of 76, normal axis and intervals, borderline R-wave progression with nonspecific ST-T abnormalities diffusely. IMPRESSION: 1. Congestive heart failure exacerbation by most recent echo, diastolic, acute on chronic. 2. Atrial fibrillation, rate controlled. 3. Positive troponin in the setting of renal failure, respiratory distress, likely type 2 demand inf arct. 4. Chronic obstructive pulmonary disease. 5. Hypertension. 6. Hyponatremia. 7. Elevated BNP. 8. Leukocytosis. RECOMMENDATIONS: 1. At this time, we would maintain patient on telemetry monitoring to follow rhythm and rates closel y. 2. Continue the patient's Lasix diuresis, following strict I's and O's, creatinine to grade diuresis closely. 3. We would reassess the patient's ejection fraction with a 2D echo. We would continue to trend the patient's cardiac enzymes, we would initiate patient on baseline Pradaxa for prevention of thromboem bolic complications from atrial fibrillation, elevated CHADS-VASc score. We will check a digoxin lev el to assure the patient has no elevated digoxin in the setting of renal failure. 4. Give the patient a very low-dose calcium channel kayleigh to assure good heart rate. 5. Continue the patient's antibiotics and follow up all cultures data. Thank you for allowing me to take part in the care of this patient. I will continue to follow along very closely with you. Further recommendations will be made as the patient progresses through his in patient hospital clinical course. Dictated By: CECE CESPEDES/JACQUELINE Conf#: [id number] DID#: [id number] CC: DO GAVIN; CECE LOPEZ MD;*EndCC*
[2018-07-11] MEDS: DILTIAZEM 30 MG TAB PO SCH (22:41)
[2018-07-12] VITALS (10 sets, daily range): BP systolic 95–132; BP diastolic 52–79; PULSE 75–103; RESP 18–20
[2018-07-12] MEDS: DABIGATRAN 75 MG CAP PO SCH ×3 (00:01→20:55)
[2018-07-12] MEDS: ALBUTEROL/IPRATROPIUM (NEB) 3 ML AMP HHN SCH ×6 (00:56→19:57)
[2018-07-12] MEDS: DILTIAZEM 30 MG TAB PO SCH ×3 (05:44→20:55)
[2018-07-12] MEDS: FUROSEMIDE 40 MG INJ IV SCH ×2 (05:47→17:05)
[2018-07-12] MEDS: PANTOPRAZOLE (EC) 40 MG TAB PO SCH (05:48)
--- NOTE | 2018-07-12 09:51 | CONS ---
Consult Date/Type/Reason Admit Date/Time July 11, 2018 at 11:40 Initial Consult Date Date/Time of Note DATE: 07/12/18 TIME: 09:49 Subjective NO acute events - pt feels better now. NO CO - rate controlled in a. fib. ROS: No fever, no chills, no nausea, no vomiting, no diarrhea/constipation No recent weight changes No chest pain, no PND, no orthopnea - improved SOB. No dizziness, blurred vision No thirst, no heat or cold intolerance Objective Vitals Vital Signs Date Temp Pulse Resp B/P (MAP) Pulse Ox O2 O2 Flow FiO2 Time Delivery Rate 07/12/18 70 18 98 Nasal 2.0 09:25 Cannula 07/12/18 98.2 132/79 07:18 (96) Intake and Output 07/11/18 07/11/18 07/12/18 1515:00 23:00 07:00 IntakeIntake Total 40 ml OutputOutput Total 100 ml 800 ml BalanceBalance -100 ml -760 ml Exam General: WN/WD/NAD, AOx 3 HEENT: Unicetric/atraumatic/EOMI ( follow commands) NECK: JVD elevated, no thyromegaly Lymph: no lymphadenopathy HEART: IRREG IRREG with no S3, II/ systolic murmur at apex LUNGS: Coarse sounds ABD: soft, NT, ND, +BS : Intact Neuro: non focal SKIN: chronic changes EXT: trace edema Results/Medications Result Diagram: 07/12/1852007/12/18520 Results 24 hrs Laboratory Tests Test 07/11/18 11:04 07/11/18 18:00 07/11/18 19:15 07/12/18 01:41 White Blood Count 12.1 #H Red Blood Count 4.27 L Hemoglobin 12.5 L Hematocrit 37.7 L Mean Corpuscular 88.3 Volume Mean Corpuscular 29.3 Hemoglobin Mean Corpuscular 33.2 Hemoglobin Concen t Red Cell 14.3 Distribution Width Platelet Count 319 Mean Platelet 9.1 Volume Immature 0.500 H Granulocytes % Neutrophils % 77.0 Lymphocytes % 11.8 L Monocytes % 9.8 Eosinophils % 0.7 Basophils % 0.2 Nucleated Red 0.0 Blood Cells % Immature 0.060 H Granulocytes # Neutrophils # 9.3 H Lymphocytes # 1.4 Monocytes # 1.2 H Eosinophils # 0.1 Basophils # 0.0 Nucleated Red 0.0 Blood Cells # Prothrombin Time 14.8 Prothrombin Time 1.2 Ratio INR International 1.15 Normalized Ratio Sodium Level 134 L Potassium Level 4.1 Chloride Level 94 L Carbon Dioxide 33 H Level Anion Gap 7 Blood Urea 18 Nitrogen Creatinine 1.29 H Est Glomerular Filtrat Rate mL/min Glucose Level 122 Calcium Level 9.1 Troponin I 0.161 *H 0.154 *H 0.134 *H B-Type 07301 H Natriuretic Peptide Digoxin Level 1.4 Blood Gas Blood arterial Specimen Source Arterial Blood 07/11/2018 5:52:30 Date Drawn PM Arterial Blood pH 7.462 H (Temp corrected) Arterial Blood 43.2 pCO2 (Temp correct) Arterial Blood 138.1 H pO2 (Temp corrected) Arterial Blood 30.2 H HCO3 Arterial Blood 5.7 H Base Excess Arterial Blood 98.8 Oxygen Saturation Harshad Test ACCEPTAB Arterial Blood Right Radial Gas Puncture Site Arterial 1.3 Blood Carboxyhemo globin Arterial Blood 0.3 Methemoglobin Blood Gas A-a O2 242.2 H Differential Oxyhemoglobin 97.2 Percent Blood Gas 37.0 Temperature Blood Gas MASK - SIMPLE Modality FiO2 60.0 Blood Gas [place] Notified Whom Blood Gas 07/11/2018 5:59:44 Notified Time PM Creatine Kinase 33 30 Creatine Kinase 18.2 20.1 Index Creatinine Kinase 6.01 H 6.03 H MB (Mass) Test 07/12/18 05:21 White Blood Count 7.2 # Red Blood Count 4.28 L Hemoglobin 12.3 L Hematocrit 37.2 L Mean Corpuscular 86.9 Volume Mean Corpuscular 28.7 L Hemoglobin Mean Corpuscular 33.1 Hemoglobin Concen t Red Cell 14.1 Distribution Width Platelet Count 313 Mean Platelet 9.0 Volume Immature 0.300 Granulocytes % Neutrophils % 92.5 H Lymphocytes % 5.7 L Monocytes % 1.5 Eosinophils % 0.0 Basophils % 0.0 Nucleated Red 0.0 Blood Cells % Immature 0.020 Granulocytes # Neutrophils # 6.7 Lymphocytes # 0.4 L Monocytes # 0.1 L Eosinophils # 0.0 Basophils # 0.0 Nucleated Red 0.0 Blood Cells # Sodium Level 135 Potassium Level 3.6 Chloride Level 96 L Carbon Dioxide 28 Level Anion Gap 11 Blood Urea 19 Nitrogen Creatinine 1.24 Est Glomerular Filtrat Rate mL/min Glucose Level 159 Calcium Level 9.1 Phosphorus Level 4.2 Magnesium Level 1.7 Total Bilirubin 0.4 Direct Bilirubin 0.00 Indirect 0.4 Bilirubin Aspartate Amino 23 Transf (AST/SGOT) Alanine 19 Aminotransferase (ALT/SGPT) Alkaline 89 Phosphatase Total Protein 6.1 Albumin 3.2 L Globulin 2.90 Albumin/Globulin 1.10 Ratio Home Meds Active Scripts Ipratropium-Albuterol (Ipratropium-Albuterol) 0.5-3 Mg/3 Ml Ampul.neb, 3 ML HHN Q4H RESP THERAPY for 28 Days Prov:KARLEY DEAN MD 08/08/16 Reported Medications Potassium Chloride* (Klor-Con*) 20 Meq Tabsr, 40 MEQ PO BID, TAB.SA 07/11/18 Amoxicillin/Potassium Clav (Amox-Clav 875-125 mg Tablet) 875-125 mg Tab, 1 TAB PO BID, #20 TAB 07/11/18 Magnesium Hydroxide* (Milk Of Magnesia*) 400 Mg/5 Ml Oral.susp, 30 ML PO DAILY PRN for CONSTIPATION, ML 07/11/18 Pantoprazole* (Pantoprazole*) 40 Mg Tablet.dr, 40 MG PO DAILY, TAB 07/11/18 Dabigatran Etexilate Mesylate* (Pradaxa*) 75 Mg Cap, 75 MG PO BID, CAP 07/11/18 Promethazine HCl/Codeine (Prometh-Codein 6.25-10 mg/5 ml) 5 Ml Syrup, 10 ML PO Q6 PRN for COUGH 07/11/18 Albuterol Sulfate* (Proair HFA*) 8.5 Gm Hfa.aer.ad, 2 PUFF INH Q4H PRN for WHEEZING AND SOB, #1 INHALER 07/11/18 Nfbpghyofoq-M-Nxupuyeels Hb* (Guaifenesin* DM Syrup) 120 Ml Syrup, 10 ML PO Q6 PRN for COUGH, ML 07/11/18 Digoxin* (Lanoxin*) 0.125 Mg Tablet, 0.125 MG PO DAILY, TAB 02/07/18 Furosemide* (Lasix*) 40 Mg Tablet, 40 MG PO DAILY, TAB 01/31/16 Discontinued Reported Medications Bupropion Hcl* (Bupropion Hcl SR*) 150 Mg Tablet.er, 150 MG PO DAILY, TAB.SA 08/18/15 Cilostazol* (Cilostazol*) 50 Mg Tablet, 50 MG PO BID, TAB 08/18/15 Polyethylene Glycol* (Polyethylene Glycol*) 17 Gm Powd.pack, 8.5 GM PO DAILY, PACKET 08/31/14 Discontinued Scripts Pantoprazole* (Pantoprazole*) 40 Mg Tablet.dr, 40 MG PO DAILY@06 for 14 Days Prov:KARLEY DEAN MD 08/08/16 Aspirin (Aspirin) 81 Mg Chew, 81 MG PO DAILY for 28 Days, TAB Prov:KARLEY DEAN MD 08/08/16 Diltiazem Hcl* (Cardizem*) 60 Mg Tablet, 60 MG PO Q8 for 30 Days, TAB Prov:KARLEY DEAN MD 08/08/16 Atenolol* (Atenolol*) 50 Mg Tablet, 50 MG PO BID for 28 Days, TAB Prov:KARLEY DEAN MD 08/08/16 Apixaban* (Eliquis*) 5 Mg Tablet, 2.5 MG PO BID for 28 Days, TAB Prov:KARLEY DEAN MD 08/08/16 Medications Current Medications IV Flush (NS 3 ml) 3 ml PER PROTOCOL IV ; Start 07/11/18 at 17:30 Ondansetron HCl (Zofran Inj) 4 mg Q6H PRN IV NAUSEA/VOMITING; Start 07/11/18 at 17:30 Acetaminophen (Tylenol Tab) 650 mg Q6H PRN PO .PAIN 1-3 OR TEMP; Start 07/11/18 at 17:30 Docusate Sodium (Colace) 100 mg Q12H PRN PO .CONSTIPATION; Start 07/11/18 at 17:30 Pantoprazole (Protonix Tab) 40 mg DAILY@06 PO Last administered on 07/12/18at 05:48; Admin Dose 40 MG; Start 07/12/18 at 06:00 Furosemide (Lasix) 40 mg BID DIURETICS IV Last administered on 07/12/18at 05:47; Admin Dose 40 MG; Start 07/11/18 at 18:00 Albuterol/ Ipratropium (Duoneb) 3 ml Q4H RESP THERAPY HHN Last administered on 07/12/18at 09:24; Admin Dose 3 ML; Start 07/11/18 at 21:00 Diltiazem HCl (Cardizem) 30 mg Q8 PO Last administered on 07/11/18at 22:41; Admin Dose 30 MG; Start 07/11/18 at 22:00 Dabigatran (PRADaxa) 75 mg BID PO Last administered on 07/12/18at 08:59; Admin Dose 75 MG; Start 07/11/18 at 21:00 Assessment/Plan Hospital Course (Demo Recall) 1. Congestive heart failure exacerbation by most recent echo, diastolic, acute on chronic - better now - responded to diuresis. 2. Atrial fibrillation, rate controlled - con't BB now. 3. Positive troponin in the setting of renal failure, respiratory distress, likely type 2 demand infarct - no CP now, will monitor clinically. 4. Chronic obstructive pulmonary disease - on meds, no wheezing by exam today. 5. Hypertension - better RX. 6. Hyponatremia. 7. Elevated BNP. 8. Leukocytosis - rx per primary team. EMILY SANTAMARIA MD July 12, 2018 09:51
--- NOTE | 2018-07-12 12:02 | RADRPT ---
Echocardiogram Report Patient Name: KAN NGUYENPatient ID: [id number] : 1940 (78y 2m)Study Date: 07/12/2018 7:08:21 AM Gender: MAccession #: [id number] Tech: Nahid Aguayo [facility] Location: [facility] Ref.Physician: FIDEL GAVIN Height(Cm): BSA: Weight(Kg): Quality: AdequateAccount #: Procedures: Echocardiographic Report: Transthoracic echocardiogram with complete 2D, M-Mode, and doppler examination. Indications: Congestive Heart Failure. Measurements: 2D/M Mode Doppler Measurement Value Normal Range Measurement Value Normal Range LVIDd 2D 4.9 [ 4.2 - 5.8 ] cm AV Peak Tonio 1.8 [ 100.0 - 170.0 ] cm/sec LVIDs 2D 2.5 [ 2.5 - 4.0 ] cm AV Peak PG 13.0 [ 2.0 - 9.0 ] mmHg LVPWd 2D 1.9 [ 0.6 - 1.0 ] cm AI Peak PG 27.0 mmHg IVSd 2D 2.0 [ 0.6 - 1.0 ] cm AI Peak Tonio 2.6 cm/sec AoR Diam 2D 3.3 [ 2.6 - 3.4 ] cm AI PHT 594.0 msec EDV 2D 115.0 [ 62.0 - 150.0 ] ml LVOT Peak Tonio 0.8 [ 70.0 - 110.0 ] cm/sec ESV 2D 21.7 [ 21.0 - 61.0 ] ml LVOT Peak PG 3.0 [ 2.0 - 6.0 ] mmHg EF 2D 81.1 [ 52.0 - 72.0 ] percent Lat E` Tonio 0.1 [ 10.0 - 15.0 ] cm/sec LA Dimen 2D 3.8 [ 3.0 - 4.0 ] cm TR Peak Tonio 3.3 [ 100.0 - 280.0 ] cm/sec TR Peak PG 43.0 mmHg RVSP 46.0 [ 10.0 - 36.0 ] mmHg RA Pressure 3.0 mmHg Findings: Left Ventricle: Normal left ventricular systolic function. Normal left ventricular cavity size. Severe concentric left ventricular hypertrophy. Ejection fraction is visually estimated at 65 %. Abnormal Diastolic Function. Right Ventricle: Normal right ventricular size. Normal right ventricular systolic function. Left Atrium: The left atrium is normal in size. Right Atrium: There is mild enlargement of right atrium. Mitral Valve: Mitral valve leaflets appear mildly thickened. Mild mitral annular calcification. Mild to moderate mitral valve regurgitation. Aortic Valve: No hemodynamically significant aortic stenosis by doppler. Aortic cusps appear mildly calcified. Mild aortic valve regurgitation. Tricuspid Valve: Normal appearance of the tricuspid valve. Estimated peak PA systolic pressure 46 mmHg. There is moderate tricuspid regurgitation. Pulmonic Valve: Normal pulmonic valve appearance. Pericardium: Normal pericardium with no significant pericardial effusion. Aorta: Normal aortic root. IVC: Normal size and normal respiratory collapse consistent with normal right atrial pressure. Conclusions: Normal left ventricular systolic function. Normal left ventricular cavity size. Severe concentric left ventricular hypertrophy. Ejection fraction is visually estimated at 65 %. Abnormal Diastolic Function. No hemodynamically significant aortic stenosis by doppler. Aortic cusps appear mildly calcified. Mild aortic valve regurgitation. Mitral valve leaflets appear mildly thickened. Mild mitral annular calcification. Mild to moderate mitral valve regurgitation. Normal appearance of the tricuspid valve. Estimated peak PA systolic pressure 46 mmHg. There is moderate tricuspid regurgitation. Electronically Signed By: Rommel Balderrama 2018-07-12 12:01:46 PDT
--- NOTE | 2018-07-12 14:00 | PN ---
Date/Time of Note Date/Time of Note DATE: 07/12/18 TIME: 14:00 Assessment/Plan VTE Prophylaxis Risk score (from Ns)>0 risk: 6 SCD applied (from Ns): No SCD contraindicated: other Pharmacological prophylaxis: other (pradaxa) Lines/Catheters IV [facility]ter [facility]from [facility] [place] Assessment/Plan Hospital Course 1. Shortness of breath likely secondary to congestive heart failure evident on chest x-ray and could have some underlying chronic obstructive pulmonary disease. 2. Elevated troponin with EKG changes likely secondary to non-ST elevation myocardial infarction. 3. Elevated BNP secondary to congestive heart failure. 4. Hypertension. 5. Hyperlipidemia. 6. History of congestive heart failure and cardiomyopathy. 7. History of chronic atrial fibrillation. 8. Hyperlipidemia. 9. History of lung cancer. 10. Chronic kidney disease. 11. History of pneumothorax status post chest tube placement. 12. Anemia Assessment/Plan - tele. -c/w IV Lasix. -Serial troponins, EKG, aspirin, statin, beta kayleigh -DVT proph. Pradaxa -GI proph Protonix. -Cardiology consultation Result Diagram: 07/12/1852007/12/18520 Results 24hrs Laboratory Tests Test 07/11/18 18:00 07/11/18 19:15 07/12/18 01:41 07/12/18 05:21 Blood Gas Blood arterial Specimen Source Arterial Blood 07/11/2018 5:52:30 Date Drawn PM Arterial Blood pH 7.462 H (Temp corrected) Arterial Blood 43.2 pCO2 (Temp correct) Arterial Blood 138.1 H pO2 (Temp corrected) Arterial Blood 30.2 H HCO3 Arterial Blood 5.7 H Base Excess Arterial Blood 98.8 Oxygen Saturation Harshad Test ACCEPTAB Arterial Blood Right Radial Gas Puncture Site Arterial 1.3 Blood Carboxyhemo globin Arterial Blood 0.3 Methemoglobin Blood Gas A-a O2 242.2 H Differential Oxyhemoglobin 97.2 Percent Blood Gas 37.0 Temperature Blood Gas MASK - SIMPLE Modality FiO2 60.0 Blood Gas [place] Notified Whom Blood Gas 07/11/2018 5:59:44 Notified Time PM Creatine Kinase 33 30 Creatine Kinase 18.2 20.1 Index Creatinine Kinase 6.01 H 6.03 H MB (Mass) Troponin I 0.154 *H 0.134 *H White Blood Count 7.2 # Red Blood Count 4.28 L Hemoglobin 12.3 L Hematocrit 37.2 L Mean Corpuscular 86.9 Volume Mean Corpuscular 28.7 L Hemoglobin Mean Corpuscular 33.1 Hemoglobin Concen t Red Cell 14.1 Distribution Width Platelet Count 313 Mean Platelet 9.0 Volume Immature 0.300 Granulocytes % Neutrophils % 92.5 H Lymphocytes % 5.7 L Monocytes % 1.5 Eosinophils % 0.0 Basophils % 0.0 Nucleated Red 0.0 Blood Cells % Immature 0.020 Granulocytes # Neutrophils # 6.7 Lymphocytes # 0.4 L Monocytes # 0.1 L Eosinophils # 0.0 Basophils # 0.0 Nucleated Red 0.0 Blood Cells # Sodium Level 135 Potassium Level 3.6 Chloride Level 96 L Carbon Dioxide 28 Level Anion Gap 11 Blood Urea 19 Nitrogen Creatinine 1.24 Est Glomerular Filtrat Rate mL/min Glucose Level 159 Calcium Level 9.1 Phosphorus Level 4.2 Magnesium Level 1.7 Total Bilirubin 0.4 Direct Bilirubin 0.00 Indirect 0.4 Bilirubin Aspartate Amino 23 Transf (AST/SGOT) Alanine 19 Aminotransferase (ALT/SGPT) Alkaline 89 Phosphatase Total Protein 6.1 Albumin 3.2 L Globulin 2.90 Albumin/Globulin 1.10 Ratio Test 07/12/18 11:59 Bedside Glucose 280 H Exam/Review of Systems Exam Vitals Vital Signs Date Temp Pulse Resp B/P (MAP) Pulse Ox O2 O2 Flow FiO2 Time Delivery Rate 07/12/18 85 19 99 Nasal 2.0 13:05 Cannula 07/12/18 97.5 117/55 11:34 (75) Intake and Output 07/11/18 07/11/18 07/12/18 1515:00 23:00 07:00 IntakeIntake Total 40 ml OutputOutput Total 100 ml 800 ml BalanceBalance -100 ml -760 ml Constitutional: alert, oriented ENMT: nl external ears & nose Neck: supple Respiratory: diminished breath sounds Cardiovascular: irregular rhythm Gastrointestinal: soft Results Results 24hrs Laboratory Tests Test 07/11/18 18:00 07/11/18 19:15 07/12/18 01:41 07/12/18 05:21 Blood Gas Blood arterial Specimen Source Arterial Blood 07/11/2018 5:52:30 Date Drawn PM Arterial Blood pH 7.462 H (Temp corrected) Arterial Blood 43.2 pCO2 (Temp correct) Arterial Blood 138.1 H pO2 (Temp corrected) Arterial Blood 30.2 H HCO3 Arterial Blood 5.7 H Base Excess Arterial Blood 98.8 Oxygen Saturation Harshad Test ACCEPTAB Arterial Blood Right Radial Gas Puncture Site Arterial 1.3 Blood Carboxyhemo globin Arterial Blood 0.3 Methemoglobin Blood Gas A-a O2 242.2 H Differential Oxyhemoglobin 97.2 Percent Blood Gas 37.0 Temperature Blood Gas MASK - SIMPLE Modality FiO2 60.0 Blood Gas NZ Notified Whom Blood Gas 07/11/2018 5:59:44 Notified Time PM Creatine Kinase 33 30 Creatine Kinase 18.2 20.1 Index Creatinine Kinase 6.01 H 6.03 H MB (Mass) Troponin I 0.154 *H 0.134 *H White Blood Count 7.2 # Red Blood Count 4.28 L Hemoglobin 12.3 L Hematocrit 37.2 L Mean Corpuscular 86.9 Volume Mean Corpuscular 28.7 L Hemoglobin Mean Corpuscular 33.1 Hemoglobin Concen t Red Cell 14.1 Distribution Width Platelet Count 313 Mean Platelet 9.0 Volume Immature 0.300 Granulocytes % Neutrophils % 92.5 H Lymphocytes % 5.7 L Monocytes % 1.5 Eosinophils % 0.0 Basophils % 0.0 Nucleated Red 0.0 Blood Cells % Immature 0.020 Granulocytes # Neutrophils # 6.7 Lymphocytes # 0.4 L Monocytes # 0.1 L Eosinophils # 0.0 Basophils # 0.0 Nucleated Red 0.0 Blood Cells # Sodium Level 135 Potassium Level 3.6 Chloride Level 96 L Carbon Dioxide 28 Level Anion Gap 11 Blood Urea 19 Nitrogen Creatinine 1.24 Est Glomerular Filtrat Rate mL/min Glucose Level 159 Calcium Level 9.1 Phosphorus Level 4.2 Magnesium Level 1.7 Total Bilirubin 0.4 Direct Bilirubin 0.00 Indirect 0.4 Bilirubin Aspartate Amino 23 Transf (AST/SGOT) Alanine 19 Aminotransferase (ALT/SGPT) Alkaline 89 Phosphatase Total Protein 6.1 Albumin 3.2 L Globulin 2.90 Albumin/Globulin 1.10 Ratio Test 07/12/18 11:59 Bedside Glucose 280 H Medications Medication Current Medications IV Flush (NS 3 ml) 3 ml PER PROTOCOL IV ; Start 07/11/18 at 17:30 Ondansetron HCl (Zofran Inj) 4 mg Q6H PRN IV NAUSEA/VOMITING; Start 07/11/18 at 17:30 Acetaminophen (Tylenol Tab) 650 mg Q6H PRN PO .PAIN 1-3 OR TEMP; Start 07/11/18 at 17:30 Docusate Sodium (Colace) 100 mg Q12H PRN PO .CONSTIPATION; Start 07/11/18 at 17:30 Pantoprazole (Protonix Tab) 40 mg DAILY@06 PO Last administered on 07/12/18 05:48; Admin Dose 40 MG; Start 07/12/18 at 06:00 Furosemide (Lasix) 40 mg BID DIURETICS IV Last administered on 07/12/18at 05:47; Admin Dose 40 MG; Start 07/11/18 at 18:00 Albuterol/ Ipratropium (Duoneb) 3 ml Q4H RESP THERAPY HHN Last administered on 07/12/18at 13:05; Admin Dose 3 ML; Start 07/11/18 at 21:00 Diltiazem HCl (Cardizem) 30 mg Q8 PO Last administered on 07/12/18at 13:43; Admin Dose 30 MG; Start 07/11/18 at 22:00 Dabigatran (PRADaxa) 75 mg BID PO Last administered on 07/12/18at 08:59; Admin Dose 75 MG; Start 07/11/18 at 21:00 JASPER SAHU July 12, 2018 14:00
--- NOTE | 2018-07-12 14:03 | RADRPT ---
Vent Rate: 77 bpm RR Interval: 751 msec FL Interval: [id number] msec QRS Duration: 87 msec QT Interval: 418 msec QTC Interval: 482 msec P-R-T [place]: [id number] - 75 - 249 degrees Atrial fibrillation...V-rate 65- 96, irreg A-activity Repol abnrm, severe global ischemia (LM/MVD)...Christa aVR, STd & Tneg, ant/lat/inf Electronically Signed By: Quentin Castro
[2018-07-13] VITALS (14 sets, daily range): BP systolic 101–116; BP diastolic 58–75; PULSE 71–207; RESP 19–20
[2018-07-13] MEDS: FUROSEMIDE 40 MG INJ IV SCH ×2 (05:50→18:49)
[2018-07-13] MEDS: PANTOPRAZOLE (EC) 40 MG TAB PO SCH (05:51)
[2018-07-13] MEDS: DILTIAZEM 30 MG TAB PO SCH ×3 (05:51→21:11)
[2018-07-13] MEDS: DABIGATRAN 75 MG CAP PO SCH ×2 (08:50→21:10)
[2018-07-13] MEDS: ALBUTEROL/IPRATROPIUM (NEB) 3 ML AMP HHN SCH ×6 (10:07→20:51)
[2018-07-13] MEDS ORDERED: POTASSIUM CHLORIDE (SR) 20 MEQ TAB PO STA (11:17)
--- NOTE | 2018-07-13 12:51 | PN ---
Date/Time of Note Date/Time of Note DATE: 07/13/18 TIME: 12:50 Assessment/Plan VTE Prophylaxis Risk score (from [facility])>0 risk: 4 SCD applied (from [facility]): No SCD contraindicated: other Pharmacological prophylaxis: other (pradaxa) Lines/Catheters IV Catheter Type (from [facility]): [facility] Assessment/Plan Hospital Course 1. Shortness of breath likely secondary to congestive heart failure evident on chest x-ray and could have some underlying chronic obstructive pulmonary disease. Better 2. Elevated troponin with EKG changes likely secondary to non-ST elevation myocardial infarction. 3. Elevated BNP secondary to congestive heart failure. 4. Hypertension, controlled. 5. Hyperlipidemia. 6. History of congestive heart failure and cardiomyopathy. 7. History of chronic atrial fibrillation. 8. Hyperlipidemia. 9. History of lung cancer. 10. Chronic kidney disease. 11. History of pneumothorax status post chest tube placement. 12. Anemia Assessment/Plan - tele. -WBC double UP -K supplement -creatinine is rising -UA to collect -c/w IV Lasix. -c/w cardizem -DVT proph. Pradaxa -GI proph Protonix. -Cardiology consultation [place] Result Diagram: 07/13/1852207/13/18 0523 Results 24hrs Laboratory Tests Test 07/13/18 05:23 White Blood Count 14.4 #H Red Blood Count 3.79 L Hemoglobin 11.1 L Hematocrit 33.1 L Mean Corpuscular Volume 87.3 Mean Corpuscular Hemoglobin 29.3 Mean Corpuscular Hemoglobin Concent 33.5 Red Cell Distribution Width 14.4 Platelet Count 347 Mean Platelet Volume 9.2 Immature Granulocytes % 0.500 H Neutrophils % 82.5 H Lymphocytes % 8.9 L Monocytes % 7.9 Eosinophils % 0.1 Basophils % 0.1 Nucleated Red Blood Cells % 0.0 Immature Granulocytes # 0.070 H Neutrophils # 11.9 H Lymphocytes # 1.3 Monocytes # 1.1 H Eosinophils # 0.0 Basophils # 0.0 Nucleated Red Blood Cells # 0.0 Sodium Level 135 Potassium Level 3.3 L Chloride Level 96 L Carbon Dioxide Level 31 Anion Gap 8 Blood Urea Nitrogen 22 H Creatinine 1.33 H Est Glomerular Filtrat Rate mL/min Glucose Level 123 Hemoglobin A1c 5.8 Calcium Level 9.0 Thyroid Stimulating Hormone (TSH) 1.300 Subjective 24 Hr Interval Summary Respiratory: shortness of breath Gastrointestinal: no complaints Genitourinary: no complaints Exam/Review of Systems Exam Vitals Vital Signs Date Temp Pulse Resp B/P (MAP) Pulse Ox O2 O2 Flow FiO2 Time Delivery Rate 07/13/18 97.9 88 20 116/71 98 Nasal 3.0 11:40 (86) Cannula Intake and Output 07/12/18 07/12/18 07/13/18 1515:00 23:00 07:00 IntakeIntake Total 600 ml 400 ml OutputOutput Total 450 ml 500 ml BalanceBalance 150 ml -100 ml Constitutional: alert, oriented Psych: no complaints Head: normocephalic Neck: supple Respiratory: clear to auscultation Cardiovascular: regular rate and rhythm, other (afib on monitor) Gastrointestinal: soft Skin: ecchymosis Results Results 24hrs Laboratory Tests Test 07/13/18 05:23 White Blood Count 14.4 #H Red Blood Count 3.79 L Hemoglobin 11.1 L Hematocrit 33.1 L Mean Corpuscular Volume 87.3 Mean Corpuscular Hemoglobin 29.3 Mean Corpuscular Hemoglobin Concent 33.5 Red Cell Distribution Width 14.4 Platelet Count 347 Mean Platelet Volume 9.2 Immature Granulocytes % 0.500 H Neutrophils % 82.5 H Lymphocytes % 8.9 L Monocytes % 7.9 Eosinophils % 0.1 Basophils % 0.1 Nucleated Red Blood Cells % 0.0 Immature Granulocytes # 0.070 H Neutrophils # 11.9 H Lymphocytes # 1.3 Monocytes # 1.1 H Eosinophils # 0.0 Basophils # 0.0 Nucleated Red Blood Cells # 0.0 Sodium Level 135 Potassium Level 3.3 L Chloride Level 96 L Carbon Dioxide Level 31 Anion Gap 8 Blood Urea Nitrogen 22 H Creatinine 1.33 H Est Glomerular Filtrat Rate mL/min Glucose Level 123 Hemoglobin A1c 5.8 Calcium Level 9.0 Thyroid Stimulating Hormone (TSH) 1.300 Medications Medication Current Medications IV Flush (NS 3 ml) 3 ml PER PROTOCOL IV ; Start 07/11/18 at 17:30 Ondansetron HCl (Zofran Inj) 4 mg Q6H PRN IV NAUSEA/VOMITING; Start 07/11/18 at 17:30 Acetaminophen (Tylenol Tab) 650 mg Q6H PRN PO .PAIN 1-3 OR TEMP; Start 07/11/18 at 17:30 Docusate Sodium (Colace) 100 mg Q12H PRN PO .CONSTIPATION; Start 07/11/18 at 17:30 Pantoprazole (Protonix Tab) 40 mg DAILY@06 PO Last administered on 07/13/18 05:51; Admin Dose 40 MG; Start 07/12/18 at 06:00 Furosemide (Lasix) 40 mg BID DIURETICS IV Last administered on 07/13/18 05:50; Admin Dose 40 MG; Start 07/11/18 at 18:00 Albuterol/ Ipratropium (Duoneb) 3 ml Q4H RESP THERAPY HHN Last administered on 07/13/18 10:07; Admin Dose 3 ML; Start 07/11/18 at 21:00 Diltiazem HCl (Cardizem) 30 mg Q8 PO Last administered on 07/13/18at 05:51; Admin Dose 30 MG; Start 07/11/18 at 22:00 Dabigatran (PRADaxa) 75 mg BID PO Last administered on 07/13/18 08:50; Admin Dose 75 MG; Start 07/11/18 at 21:00 JASPER SAHU July 13, 2018 12:51
--- NOTE | 2018-07-13 13:23 | CONS ---
Consult Date/Type/Reason Admit Date/Time July 11, 2018 at 11:40 Initial Consult Date Date/Time of Note DATE: 07/13/18 TIME: 13:21 Subjective NO acute events - BP in good range - pt feels better today - will monitor clinically now. ROS: No fever, no chills, no nausea, no vomiting, no diarrhea/constipation No recent weight changes No chest pain, no PND, no orthopnea - mild SOB, no bleeding No dizziness, blurred vision No thirst, no heat or cold intolerance Objective Vitals Vital Signs Date Temp Pulse Resp B/P (MAP) Pulse Ox O2 O2 Flow FiO2 Time Delivery Rate 07/13/18 97.9 88 20 116/71 98 Nasal 3.0 11:40 (86) Cannula Intake and Output 07/12/18 07/12/18 07/13/18 1515:00 23:00 07:00 IntakeIntake Total 600 ml 400 ml OutputOutput Total 450 ml 500 ml BalanceBalance 150 ml -100 ml Exam General: WN/WD/NAD, AOx 2-3 HEENT: Unicetric/atraumatic/EOMI ( follows commands) NECK: JVD elevated, no thyromegaly Lymph: no lymphadenopathy HEART: regular with no S3, II/ systolic murmur at apex, PMI L LUNGS: Coarse sounds ABD: soft, NT, ND, +BS : Intact Neuro: non focal SKIN: chronic changes EXT: trace edema Results/Medications Result Diagram: 07/13/1852207/13/18 0523 Results 24 hrs Laboratory Tests Test 07/13/18 05:23 White Blood Count 14.4 #H Red Blood Count 3.79 L Hemoglobin 11.1 L Hematocrit 33.1 L Mean Corpuscular Volume 87.3 Mean Corpuscular Hemoglobin 29.3 Mean Corpuscular Hemoglobin Concent 33.5 Red Cell Distribution Width 14.4 Platelet Count 347 Mean Platelet Volume 9.2 Immature Granulocytes % 0.500 H Neutrophils % 82.5 H Lymphocytes % 8.9 L Monocytes % 7.9 Eosinophils % 0.1 Basophils % 0.1 Nucleated Red Blood Cells % 0.0 Immature Granulocytes # 0.070 H Neutrophils # 11.9 H Lymphocytes # 1.3 Monocytes # 1.1 H Eosinophils # 0.0 Basophils # 0.0 Nucleated Red Blood Cells # 0.0 Sodium Level 135 Potassium Level 3.3 L Chloride Level 96 L Carbon Dioxide Level 31 Anion Gap 8 Blood Urea Nitrogen 22 H Creatinine 1.33 H Est Glomerular Filtrat Rate mL/min Glucose Level 123 Hemoglobin A1c 5.8 Calcium Level 9.0 Thyroid Stimulating Hormone (TSH) 1.300 Home Meds Active Scripts Ipratropium-Albuterol (Ipratropium-Albuterol) 0.5-3 Mg/3 Ml Ampul.neb, 3 ML HHN Q4H RESP THERAPY for 28 Days Prov:KARLEY DEAN MD 08/08/16 Reported Medications Potassium Chloride* (Klor-Con*) 20 Meq Tabsr, 40 MEQ PO BID, TAB.SA 07/11/18 Amoxicillin/Potassium Clav (Amox-Clav 875-125 mg Tablet) 875-125 mg Tab, 1 TAB PO BID, #20 TAB 07/11/18 Magnesium Hydroxide* (Milk Of Magnesia*) 400 Mg/5 Ml Oral.susp, 30 ML PO DAILY PRN for CONSTIPATION, ML 07/11/18 Pantoprazole* (Pantoprazole*) 40 Mg Tablet.dr, 40 MG PO DAILY, TAB 07/11/18 Dabigatran Etexilate Mesylate* (Pradaxa*) 75 Mg Cap, 75 MG PO BID, CAP 07/11/18 Promethazine HCl/Codeine (Prometh-Codein 6.25-10 mg/5 ml) 5 Ml Syrup, 10 ML PO Q6 PRN for COUGH 07/11/18 Albuterol Sulfate* (Proair HFA*) 8.5 Gm Hfa.aer.ad, 2 PUFF INH Q4H PRN for WHEEZING AND SOB, #1 INHALER 07/11/18 Zxiijjoasdm-D-Meqfeonyre Hb* (Guaifenesin* DM Syrup) 120 Ml Syrup, 10 ML PO Q6 PRN for COUGH, ML 07/11/18 Digoxin* (Lanoxin*) 0.125 Mg Tablet, 0.125 MG PO DAILY, TAB 02/07/18 Furosemide* (Lasix*) 40 Mg Tablet, 40 MG PO DAILY, TAB 01/31/16 Discontinued Reported Medications Bupropion Hcl* (Bupropion Hcl SR*) 150 Mg Tablet.er, 150 MG PO DAILY, TAB.SA 08/18/15 Cilostazol* (Cilostazol*) 50 Mg Tablet, 50 MG PO BID, TAB 08/18/15 Polyethylene Glycol* (Polyethylene Glycol*) 17 Gm Powd.pack, 8.5 GM PO DAILY, PACKET 08/31/14 Discontinued Scripts Pantoprazole* (Pantoprazole*) 40 Mg Tablet.dr, 40 MG PO DAILY@06 for 14 Days Prov:KARLEY DEAN MD 08/08/16 Aspirin (Aspirin) 81 Mg Chew, 81 MG PO DAILY for 28 Days, TAB Prov:KARLEY DEAN MD 08/08/16 Diltiazem Hcl* (Cardizem*) 60 Mg Tablet, 60 MG PO Q8 for 30 Days, TAB Prov:KARLEY DEAN MD 08/08/16 Atenolol* (Atenolol*) 50 Mg Tablet, 50 MG PO BID for 28 Days, TAB Prov:KARLEY DEAN MD 08/08/16 Apixaban* (Eliquis*) 5 Mg Tablet, 2.5 MG PO BID for 28 Days, TAB Prov:KARLEY DEAN MD 08/08/16 Medications Current Medications IV Flush (NS 3 ml) 3 ml PER PROTOCOL IV ; Start 07/11/18 at 17:30 Ondansetron HCl (Zofran Inj) 4 mg Q6H PRN IV NAUSEA/VOMITING; Start 07/11/18 at 17:30 Acetaminophen (Tylenol Tab) 650 mg Q6H PRN PO .PAIN 1-3 OR TEMP; Start 07/11/18 at 17:30 Docusate Sodium (Colace) 100 mg Q12H PRN PO .CONSTIPATION; Start 07/11/18 at 17:30 Pantoprazole (Protonix Tab) 40 mg DAILY@06 PO Last administered on 07/13/18at 05:51; Admin Dose 40 MG; Start 07/12/18 at 06:00 Furosemide (Lasix) 40 mg BID DIURETICS IV Last administered on 07/13/18at 05:50; Admin Dose 40 MG; Start 07/11/18 at 18:00 Albuterol/ Ipratropium (Duoneb) 3 ml Q4H RESP THERAPY HHN Last administered on 07/13/18at 10:07; Admin Dose 3 ML; Start 07/11/18 at 21:00 Diltiazem HCl (Cardizem) 30 mg Q8 PO Last administered on 5/11/19at 05:51; Admin Dose 30 MG; Start 07/11/18 at 22:00 Dabigatran (PRADaxa) 75 mg BID PO Last administered on 07/13/18at 08:50; Admin Dose 75 MG; Start 07/11/18 at 21:00 Assessment/Plan Hospital Course (Demo Recall) 1. Congestive heart failure exacerbation by most recent echo, diastolic, acute on chronic - better now - responded to diuresis. Much better now - will monitor. 2. Atrial fibrillation, rate controlled - con't BB now. NO tachycardia now. 3. Positive troponin in the setting of renal failure, respiratory distress, lik dina type 2 demand infarct - no CP now, will monitor clinically. TREATED. 4. Chronic obstructive pulmonary disease - on meds, no wheezing by exam today. Con't to follow. 5. Hypertension - better RX. BP in good range now. 6. Hyponatremia. 7. Elevated BNP. 8. Leukocytosis - rx per primary team. On anti-Bx. EMILY SANTAMARIA MD July 13, 2018 13:23
[2018-07-13] MEDS ORDERED: MAGNESIUM SULFATE 3 GM in DEXTROSE 5% 100 ML IVPB ONE (18:00)
[2018-07-13] MEDS: POTASSIUM CHLORIDE (SR) 20 MEQ TAB PO SCH (21:09)
[2018-07-14] VITALS (13 sets, daily range): BP systolic 97–131; BP diastolic 67–72; PULSE 83–112; RESP 18–20
[2018-07-14] MEDS: ALBUTEROL/IPRATROPIUM (NEB) 3 ML AMP HHN SCH ×6 (00:22→20:09)
[2018-07-14] MEDS: PANTOPRAZOLE (EC) 40 MG TAB PO SCH (06:26)
[2018-07-14] MEDS: FUROSEMIDE 40 MG INJ IV SCH ×2 (06:27→17:28)
[2018-07-14] MEDS: DILTIAZEM 30 MG TAB PO SCH ×3 (06:27→22:00)
[2018-07-14] MEDS: DABIGATRAN 75 MG CAP PO SCH ×2 (08:21→20:45)
[2018-07-14] MEDS: POTASSIUM CHLORIDE (SR) 20 MEQ TAB PO SCH ×2 (08:21→20:45)
--- NOTE | 2018-07-14 11:37 | PN ---
Date/Time of Note Date/Time of Note DATE: 07/14/18 TIME: 11:35 Assessment/Plan VTE Prophylaxis Risk score (from [facility] risk: 5 SCD applied (from [facility] No SCD contraindicated: low risk/ambulating Pharmacological prophylaxis: other (pradaxa) Pharm contraindication: low risk/ambulating Lines/Catheters IV C[facility]ter Type (from [facility] Saline Lock Urinary Cath still in place: No Assessment/Plan Hospital Course 1. Shortness of breath likely secondary to congestive heart failure evident on chest x-ray and could have some underlying chronic obstructive pulmonary disease. Better 2. Elevated troponin with EKG changes likely secondary to non-ST elevation myocardial infarction. 3. Elevated BNP secondary to congestive heart failure. 4. Hypertension, controlled. 5. Hyperlipidemia. 6. History of congestive heart failure and cardiomyopathy. 7. History of chronic atrial fibrillation. 8. Hyperlipidemia. 9. History of lung cancer. 10. Chronic kidney disease. 11. History of pneumothorax status post chest tube placement. 12. Anemia 13. Left lung pleural effusion, increasing in size 14. former smoker Assessment/Plan - tele. -dc planning or paracentesis. -WBC normal -US guid . thoracentesis. with cytology -creatinine decreased -UA normal -c/w IV Lasix. -c/w Cardizem -DVT proph. Pradaxa -GI proph Protonix. -Cardiology consultation [place] Result Diagram: 07/14/1851807/14/18 0519 Results 24hrs Laboratory Tests Test 07/13/18 13:35 07/14/18 05:19 Urine Color YELLOW Urine Clarity SLIGHTLY CLOUDY A Urine pH 7.0 Urine Specific [place] 1.009 Urine Ketones NEGATIVE Urine Nitrite NEGATIVE Urine Bilirubin NEGATIVE Urine Urobilinogen NEGATIVE Urine Leukocyte Esterase NEGATIVE Urine Microscopic RBC 1 Urine Microscopic WBC 1 Urine Hemoglobin NEGATIVE Urine Glucose NEGATIVE Urine Total Protein NEGATIVE White Blood Count 10.4 # Red Blood Count 4.23 L Hemoglobin 12.2 L Hematocrit 37.4 L Mean Corpuscular Volume 88.4 Mean Corpuscular Hemoglobin 28.8 L Mean Corpuscular Hemoglobin Concent 32.6 Red Cell Distribution Width 14.6 H Platelet Count 354 Mean Platelet Volume 9.2 Immature Granulocytes % 0.200 Neutrophils % 72.6 Lymphocytes % 16.2 Monocytes % 10.5 Eosinophils % 0.4 Basophils % 0.1 Nucleated Red Blood Cells % 0.0 Immature Granulocytes # 0.020 Neutrophils # 7.6 H Lymphocytes # 1.7 Monocytes # 1.1 H Eosinophils # 0.0 Basophils # 0.0 Nucleated Red Blood Cells # 0.0 Sodium Level 137 Potassium Level 3.6 Chloride Level 98 Carbon Dioxide Level 31 Anion Gap 8 Blood Urea Nitrogen 22 H Creatinine 1.15 Est Glomerular Filtrat Rate mL/min Glucose Level 114 Calcium Level 9.3 Subjective 24 Hr Interval Summary Constitutional: no complaints, improved Exam/Review of Systems Exam Vitals Vital Signs Date Temp Pulse Resp B/P (MAP) Pulse Ox O2 O2 Flow FiO2 Time Delivery Rate 07/14/18 97.4 94 19 118/67 100 Nasal 2.0 11:20 (84) Cannula Intake and Output 07/13/18 07/13/18 07/14/18 1515:00 23:00 07:00 IntakeIntake Total 500 ml 506 ml OutputOutput Total 1000 ml BalanceBalance 500 ml -494 ml Constitutional: alert, oriented Respiratory: clear to auscultation Cardiovascular: regular rate and rhythm, other (afib on monitor) Gastrointestinal: soft Results Results 24hrs Laboratory Tests Test 07/13/18 13:35 07/14/18 05:19 Urine Color YELLOW Urine Clarity SLIGHTLY CLOUDY A Urine pH 7.0 Urine Specific [place] 1.009 Urine Ketones NEGATIVE Urine Nitrite NEGATIVE Urine Bilirubin NEGATIVE Urine Urobilinogen NEGATIVE Urine Leukocyte Esterase NEGATIVE Urine Microscopic RBC 1 Urine Microscopic WBC 1 Urine Hemoglobin NEGATIVE Urine Glucose NEGATIVE Urine Total Protein NEGATIVE White Blood Count 10.4 # Red Blood Count 4.23 L Hemoglobin 12.2 L Hematocrit 37.4 L Mean Corpuscular Volume 88.4 Mean Corpuscular Hemoglobin 28.8 L Mean Corpuscular Hemoglobin Concent 32.6 Red Cell Distribution Width 14.6 H Platelet Count 354 Mean Platelet Volume 9.2 Immature Granulocytes % 0.200 Neutrophils % 72.6 Lymphocytes % 16.2 Monocytes % 10.5 Eosinophils % 0.4 Basophils % 0.1 Nucleated Red Blood Cells % 0.0 Immature Granulocytes # 0.020 Neutrophils # 7.6 H Lymphocytes # 1.7 Monocytes # 1.1 H Eosinophils # 0.0 Basophils # 0.0 Nucleated Red Blood Cells # 0.0 Sodium Level 137 Potassium Level 3.6 Chloride Level 98 Carbon Dioxide Level 31 Anion Gap 8 Blood Urea Nitrogen 22 H Creatinine 1.15 Est Glomerular Filtrat Rate mL/min Glucose Level 114 Calcium Level 9.3 Medications Medication Current Medications IV Flush (NS 3 ml) 3 ml PER PROTOCOL IV ; Start 07/11/18 at 17:30 Ondansetron HCl (Zofran Inj) 4 mg Q6H PRN IV NAUSEA/VOMITING; Start 07/11/18 at 17:30 Acetaminophen (Tylenol Tab) 650 mg Q6H PRN PO .PAIN 1-3 OR TEMP; Start 07/11/18 at 17:30 Docusate Sodium (Colace) 100 mg Q12H PRN PO .CONSTIPATION; Start 07/11/18 at 17:30 Pantoprazole (Protonix Tab) 40 mg DAILY@06 PO Last administered on 07/14/18 06:26; Admin Dose 40 MG; Start 07/12/18 at 06:00 Furosemide (Lasix) 40 mg BID DIURETICS IV Last administered on 07/14/18 06:27; Admin Dose 40 MG; Start 07/11/18 at 18:00 Albuterol/ Ipratropium (Duoneb) 3 ml Q4H RESP THERAPY HHN Last administered on 07/14/18 09:35; Admin Dose 3 ML; Start 07/11/18 at 21:00 Diltiazem HCl (Cardizem) 30 mg Q8 PO Last administered on 07/14/18 06:27; Admin Dose 30 MG; Start 07/11/18 at 22:00 Dabigatran (PRADaxa) 75 mg BID PO Last administered on 07/14/18 08:21; Admin Dose 75 MG; Start 07/11/18 at 21:00 Potassium Chloride (Klor-Con 20) 20 meq BID PO Last administered on 07/14/18 08:21; Admin Dose 20 MEQ; Start 07/13/18 at 21:00 JASPER SAHU July 14, 2018 11:37
--- NOTE | 2018-07-14 14:52 | CONS ---
Consult Date/Type/Reason Admit Date/Time July 11, 2018 at 11:40 Initial Consult Date Date/Time of Note DATE: 07/14/18 TIME: 14:48 Subjective Pt with several recurrent episodes of WCT - based on rhythms, likely A. tach with aberrancy - not symptomatic - not n CHF by exam. ROS: No fever, no chills, no nausea, no vomiting, no diarrhea/constipation No recent weight changes No chest pain, no PND, no orthopnea - chronic SOB No dizziness, blurred vision No thirst, no heat or cold intolerance Objective Vitals Vital Signs Date Temp Pulse Resp B/P (MAP) Pulse Ox O2 O2 Flow FiO2 Time Delivery Rate 07/14/18 90 20 99 Nasal 2.0 14:06 Cannula 07/14/18 97.4 118/67 11:20 (84) Intake and Output 07/13/18 07/13/18 07/14/18 1515:00 23:00 07:00 IntakeIntake Total 500 ml 506 ml OutputOutput Total 1000 ml BalanceBalance 500 ml -494 ml Exam General: WN/WD/NAD, AOx 2-3 HEENT: Unicetric/atraumatic/EOMI (follow commands) NECK: JVD elevated, no thyromegaly Lymph: no lymphadenopathy HEART: regular with no S3, II/ systolic murmur at apex LUNGS: Coarse sounds - mild wheezing ABD: soft, NT, ND, +BS : Intact Neuro: non focal SKIN: chronic changes EXT: trace edema Results/Medications Result Diagram: 07/14/1851807/14/18 0519 Results 24 hrs Laboratory Tests Test 07/14/18 05:19 White Blood Count 10.4 # Red Blood Count 4.23 L Hemoglobin 12.2 L Hematocrit 37.4 L Mean Corpuscular Volume 88.4 Mean Corpuscular Hemoglobin 28.8 L Mean Corpuscular Hemoglobin Concent 32.6 Red Cell Distribution Width 14.6 H Platelet Count 354 Mean Platelet Volume 9.2 Immature Granulocytes % 0.200 Neutrophils % 72.6 Lymphocytes % 16.2 Monocytes % 10.5 Eosinophils % 0.4 Basophils % 0.1 Nucleated Red Blood Cells % 0.0 Immature Granulocytes # 0.020 Neutrophils # 7.6 H Lymphocytes # 1.7 Monocytes # 1.1 H Eosinophils # 0.0 Basophils # 0.0 Nucleated Red Blood Cells # 0.0 Sodium Level 137 Potassium Level 3.6 Chloride Level 98 Carbon Dioxide Level 31 Anion Gap 8 Blood Urea Nitrogen 22 H Creatinine 1.15 Est Glomerular Filtrat Rate mL/min Glucose Level 114 Calcium Level 9.3 Home Meds Active Scripts Ipratropium-Albuterol (Ipratropium-Albuterol) 0.5-3 Mg/3 Ml Ampul.neb, 3 ML HHN Q4H RESP THERAPY for 28 Days Prov:KARLEY DEAN MD 08/08/16 Reported Medications Potassium Chloride* (Klor-Con*) 20 Meq Tabsr, 40 MEQ PO BID, TAB.SA 07/11/18 Amoxicillin/Potassium Clav (Amox-Clav 875-125 mg Tablet) 875-125 mg Tab, 1 TAB PO BID, #20 TAB 07/11/18 Magnesium Hydroxide* (Milk Of Magnesia*) 400 Mg/5 Ml Oral.susp, 30 ML PO DAILY PRN for CONSTIPATION, ML 07/11/18 Pantoprazole* (Pantoprazole*) 40 Mg Tablet.dr, 40 MG PO DAILY, TAB 07/11/18 Dabigatran Etexilate Mesylate* (Pradaxa*) 75 Mg Cap, 75 MG PO BID, CAP 07/11/18 Promethazine HCl/Codeine (Prometh-Codein 6.25-10 mg/5 ml) 5 Ml Syrup, 10 ML PO Q6 PRN for COUGH 07/11/18 Albuterol Sulfate* (Proair HFA*) 8.5 Gm Hfa.aer.ad, 2 PUFF INH Q4H PRN for WHEEZING AND SOB, #1 INHALER 07/11/18 Ewtneqzofke-C-Imeijuyhdn Hb* (Guaifenesin* DM Syrup) 120 Ml Syrup, 10 ML PO Q6 PRN for COUGH, ML 07/11/18 Digoxin* (Lanoxin*) 0.125 Mg Tablet, 0.125 MG PO DAILY, TAB 02/07/18 Furosemide* (Lasix*) 40 Mg Tablet, 40 MG PO DAILY, TAB 01/31/16 Discontinued Reported Medications Bupropion Hcl* (Bupropion Hcl SR*) 150 Mg Tablet.er, 150 MG PO DAILY, TAB.SA 08/18/15 Cilostazol* (Cilostazol*) 50 Mg Tablet, 50 MG PO BID, TAB 08/18/15 Polyethylene Glycol* (Polyethylene Glycol*) 17 Gm Powd.pack, 8.5 GM PO DAILY, PACKET 08/31/14 Discontinued Scripts Pantoprazole* (Pantoprazole*) 40 Mg Tablet.dr, 40 MG PO DAILY@06 for 14 Days Prov:KARLEY DEAN MD 08/08/16 Aspirin (Aspirin) 81 Mg Chew, 81 MG PO DAILY for 28 Days, TAB Prov:KARLEY DEAN MD 08/08/16 Diltiazem Hcl* (Cardizem*) 60 Mg Tablet, 60 MG PO Q8 for 30 Days, TAB Prov:KARLEY DEAN MD 08/08/16 Atenolol* (Atenolol*) 50 Mg Tablet, 50 MG PO BID for 28 Days, TAB Prov:KARLEY DEAN MD 08/08/16 Apixaban* (Eliquis*) 5 Mg Tablet, 2.5 MG PO BID for 28 Days, TAB Prov:KARLEY DEAN MD 08/08/16 Medications Current Medications IV Flush (NS 3 ml) 3 ml PER PROTOCOL IV ; Start 07/11/18 at 17:30 Ondansetron HCl (Zofran Inj) 4 mg Q6H PRN IV NAUSEA/VOMITING; Start 07/11/18 at 17:30 Acetaminophen (Tylenol Tab) 650 mg Q6H PRN PO .PAIN 1-3 OR TEMP; Start 07/11/18 at 17:30 Docusate Sodium (Colace) 100 mg Q12H PRN PO .CONSTIPATION; Start 07/11/18 at 17:30 Pantoprazole (Protonix Tab) 40 mg DAILY@06 PO Last administered on 07/14/18at 06:26; Admin Dose 40 MG; Start 07/12/18 at 06:00 Furosemide (Lasix) 40 mg BID DIURETICS IV Last administered on 07/14/18at 06:27; Admin Dose 40 MG; Start 07/11/18 at 18:00 Albuterol/ Ipratropium (Duoneb) 3 ml Q4H RESP THERAPY HHN Last administered on 07/14/18at 14:06; Admin Dose 3 ML; Start 07/11/18 at 21:00 Diltiazem HCl (Cardizem) 30 mg Q8 PO Last administered on 07/14/18at 13:42; Admin Dose 30 MG; Start 07/11/18 at 22:00 Dabigatran (PRADaxa) 75 mg BID PO Last administered on 07/14/18at 08:21; Admin Dose 75 MG; Start 07/11/18 at 21:00 Potassium Chloride (Klor-Con 20) 20 meq BID PO Last administered on 07/14/18at 08:21; Admin Dose 20 MEQ; Start 07/13/18 at 21:00 Assessment/Plan Hospital Course (Demo Recall) 1. Congestive heart failure exacerbation by most recent echo, diastolic, acute on chronic - better now - responded to diuresis. Much better now - will monitor. 2. Atrial fibrillation, rate controlled - con't BB now. If arrhythmia resumes, will consider further supression - but for now, Mg2+ replacement. 3. Positive troponin in the setting of renal failure, respiratory distress, likely type 2 demand infarct - no CP now, will monitor clinically. TREATED. 4. Chronic obstructive pulmonary disease - on meds, no wheezing by exam today. Con't to follow. Improved wheezing. 5. Hypertension - better RX. BP in good range now. Treated. 6. Hyponatremia. 7. Elevated BNP. 8. Leukocytosis - rx per primary team. On anti-Bx. EMILY SANTAMARIA MD July 14, 2018 14:52
[2018-07-14] MEDS ORDERED: LIDOCAINE 1% (MPF) 5 ML VIAL ONE (15:57)
[2018-07-15] VITALS (14 sets, daily range): BP systolic 98–121; BP diastolic 54–77; PULSE 66–151; RESP 18–20
[2018-07-15] MEDS: ALBUTEROL/IPRATROPIUM (NEB) 3 ML AMP HHN SCH ×6 (01:02→20:50)
[2018-07-15] MEDS: DILTIAZEM 30 MG TAB PO SCH ×4 (05:42→21:18)
[2018-07-15] MEDS: FUROSEMIDE 40 MG INJ IV SCH ×2 (06:08→17:42)
[2018-07-15] MEDS: PANTOPRAZOLE (EC) 40 MG TAB PO SCH (06:08)
--- NOTE | 2018-07-15 08:10 | CONS ---
Consult Date/Type/Reason Admit Date/Time July 11, 2018 at 11:40 Initial Consult Date Date/Time of Note DATE: 07/15/18 TIME: 08:07 Subjective NO acute events - no new BBB aberrancy tachy noted - had few episodes of A. fib with RVR - no symptoms - BP borderline - add digoxin now. ROS: No fever, no chills, no nausea, no vomiting, no diarrhea/constipation No recent weight changes No chest pain, no PND, no orthopnea - mild SOB No dizziness, blurred vision No thirst, no heat or cold intolerance Objective Vitals Vital Signs Date Temp Pulse Resp B/P (MAP) Pulse Ox O2 O2 Flow FiO2 Time Delivery Rate 07/15/18 97.8 114 20 116/72 99 Nasal 07:43 (87) Cannula 07/15/18 2.0 04:23 07/15/18 21 01:03 Intake and Output 07/14/18 07/14/18 07/15/18 1515:00 23:00 07:00 IntakeIntake Total 700 ml 400 ml OutputOutput Total 500 ml 700 ml BalanceBalance 200 ml -300 ml Exam General: WN/WD/NAD, AOx 2-3 HEENT: Unicetric/atraumatic/EOMI (follow commands) NECK: JVD elevated, no thyromegaly Lymph: no lymphadenopathy HEART: Ir Irregular with no S3, II/ systolic murmur at apex LUNGS: Coarse sounds ABD: soft, NT, ND, +BS : Intact Neuro: non focal SKIN: chronic changes EXT: trace edema Results/Medications Result Diagram: 07/14/1851807/14/18518 Results 24 hrs Laboratory Tests Test 07/14/18 15:20 Body Fluid Type THORACENTESIS FLUID Body Fluid Volume 400.0 Body Fluid Color CATHY Body Fluid Appearance SLIGHTLY HAZY Body Fluid WBC 70 Body Fluid RBC (Auto) 59936 Body Fluid Polynuclear WBCs (%) 44.3 Body Fluid Mononuclear Cells % Auto 55.7 Body Fluid Total Protein < 2.0 Body Fluid Lactate Dehydrogenase 328 Home Meds Active Scripts Ipratropium-Albuterol (Ipratropium-Albuterol) 0.5-3 Mg/3 Ml Ampul.neb, 3 ML HHN Q4H RESP THERAPY for 28 Days Prov:KARLEY DEAN MD 08/08/16 Reported Medications Potassium Chloride* (Klor-Con*) 20 Meq Tabsr, 40 MEQ PO BID, TAB.SA 07/11/18 Amoxicillin/Potassium Clav (Amox-Clav 875-125 mg Tablet) 875-125 mg Tab, 1 TAB PO BID, #20 TAB 07/11/18 Magnesium Hydroxide* (Milk Of Magnesia*) 400 Mg/5 Ml Oral.susp, 30 ML PO DAILY PRN for CONSTIPATION, ML 07/11/18 Pantoprazole* (Pantoprazole*) 40 Mg Tablet.dr, 40 MG PO DAILY, TAB 07/11/18 Dabigatran Etexilate Mesylate* (Pradaxa*) 75 Mg Cap, 75 MG PO BID, CAP 07/11/18 Promethazine HCl/Codeine (Prometh-Codein 6.25-10 mg/5 ml) 5 Ml Syrup, 10 ML PO Q6 PRN for COUGH 07/11/18 Albuterol Sulfate* (Proair HFA*) 8.5 Gm Hfa.aer.ad, 2 PUFF INH Q4H PRN for WHEEZING AND SOB, #1 INHALER 07/11/18 Xltzvskqnkm-K-Vvrndshydm Hb* (Guaifenesin* DM Syrup) 120 Ml Syrup, 10 ML PO Q6 PRN for COUGH, ML 07/11/18 Digoxin* (Lanoxin*) 0.125 Mg Tablet, 0.125 MG PO DAILY, TAB 02/07/18 Furosemide* (Lasix*) 40 Mg Tablet, 40 MG PO DAILY, TAB 01/31/16 Discontinued Reported Medications Bupropion Hcl* (Bupropion Hcl SR*) 150 Mg Tablet.er, 150 MG PO DAILY, TAB.SA 08/18/15 Cilostazol* (Cilostazol*) 50 Mg Tablet, 50 MG PO BID, TAB 08/18/15 Polyethylene Glycol* (Polyethylene Glycol*) 17 Gm Powd.pack, 8.5 GM PO DAILY, PACKET 08/31/14 Discontinued Scripts Pantoprazole* (Pantoprazole*) 40 Mg Tablet.dr, 40 MG PO DAILY@06 for 14 Days Prov:KARLEY DEAN MD 08/08/16 Aspirin (Aspirin) 81 Mg Chew, 81 MG PO DAILY for 28 Days, TAB Prov:KARLEY DEAN MD 08/08/16 Diltiazem Hcl* (Cardizem*) 60 Mg Tablet, 60 MG PO Q8 for 30 Days, TAB Prov:KARLEY DEAN MD 08/08/16 Atenolol* (Atenolol*) 50 Mg Tablet, 50 MG PO BID for 28 Days, TAB Prov:KARLEY DEAN MD 08/08/16 Apixaban* (Eliquis*) 5 Mg Tablet, 2.5 MG PO BID for 28 Days, TAB Prov:KARLEY DEAN MD 08/08/16 Medications Current Medications IV Flush (NS 3 ml) 3 ml PER PROTOCOL IV ; Start 07/11/18 at 17:30 Ondansetron HCl (Zofran Inj) 4 mg Q6H PRN IV NAUSEA/VOMITING; Start 07/11/18 at 17:30 Acetaminophen (Tylenol Tab) 650 mg Q6H PRN PO .PAIN 1-3 OR TEMP; Start 07/11/18 at 17:30 Docusate Sodium (Colace) 100 mg Q12H PRN PO .CONSTIPATION; Start 07/11/18 at 17:30 Pantoprazole (Protonix Tab) 40 mg DAILY@06 PO Last administered on 07/15/18at 06:08; Admin Dose 40 MG; Start 07/12/18 at 06:00 Furosemide (Lasix) 40 mg BID DIURETICS IV Last administered on 07/15/18 06:08; Admin Dose 40 MG; Start 07/11/18 at 18:00 Albuterol/ Ipratropium (Duoneb) 3 ml Q4H RESP THERAPY HHN Last administered on 07/15/18 04:22; Admin Dose 3 ML; Start 07/11/18 at 21:00 Diltiazem HCl (Cardizem) 30 mg Q8 PO Last administered on 07/15/18 06:43; Admin Dose 30 MG; Start 07/11/18 at 22:00 Dabigatran (PRADaxa) 75 mg BID PO Last administered on 07/14/18 20:45; Admin Dose 75 MG; Start 07/11/18 at 21:00 Potassium Chloride (Klor-Con 20) 20 meq BID PO Last administered on 07/14/18 20:45; Admin Dose 20 MEQ; Start 07/13/18 at 21:00 Assessment/Plan Hospital Course (Demo Recall) 1. Congestive heart failure exacerbation by most recent echo, diastolic, acute on chronic - better now - responded to diuresis. Much better now - will monitor. 2. Atrial fibrillation, rate controlled - con't BB now. If arrhythmia resumes, will consider further supression - but for now, Mg2+ replacement. Stable - con't BB as tolerated by BP. 3. Positive troponin in the setting of renal failure, respiratory distress, likely type 2 demand infarct - no CP now, will monitor clinically. TREATED. 4. Chronic obstructive pulmonary disease - on meds, no wheezing by exam today. Con't to follow. Improved wheezing. 5. Hypertension - better RX. BP in good range now. Treated. 6. Hyponatremia. 7. Elevated BNP. 8. Leukocytosis - rx per primary team. On anti-Bx. Improved with therapy. EMILY SANTAMARIA MD July 15, 2018 08:10
[2018-07-15] MEDS: METOPROLOL 25 MG TAB PO SCH ×2 (09:46→21:18)
[2018-07-15] MEDS: POTASSIUM CHLORIDE (SR) 20 MEQ TAB PO SCH ×2 (09:46→21:17)
[2018-07-15] MEDS: DABIGATRAN 75 MG CAP PO SCH ×2 (09:47→21:17)
--- NOTE | 2018-07-15 12:09 | PN ---
Date/Time of Note Date/Time of Note DATE: 07/15/18 TIME: 12:06 Assessment/Plan VTE [place]axis [place] [facility] [place]: 9 [place] applied [place] [facility] [place] Yes Pharmacological prophylaxis: NA/contraindicated Pharm contraindication: low risk/ambulating Lines/Catheters IV Catheter Type (from [facility] [place] [facility] Urinary Cath still in place: No Assessment/Plan Assessment/Plan Hospital Course 1. Shortness of breath likely secondary to congestive heart failure evident on chest x-ray and could have some underlying chronic obstructive pulmonary disease. Better this post thoracentesis now removal of 400 cc 2. Elevated troponin with EKG changes likely secondary to non-ST elevation myocardial infarction. Now with A. fib on Pradaxa 3. Elevated BNP secondary to congestive heart failure. 4. Hypertension, controlled. 5. Hyperlipidemia. 6. History of congestive heart failure and cardiomyopathy. 7. History of chronic atrial fibrillation. On Pradaxa 8. Hyperlipidemia. 9. History of lung cancer. 10. Chronic kidney disease. 11. History of pneumothorax status post chest tube placement. 12. Anemia 13. Left lung pleural effusion, increasing in size 14. former smoker a/p -US guid . thoracentesis. with cytology however still with persistent left effusion patient has history of lung cancer will also call pulmonary consult, -? CT of the chest -c/w IV Lasix. 40 bid -c/w Cardizem/pradaxa/mtp -DVT proph. Pradaxa -GI proph Protonix. -Cardiology consultation [place] Result Diagram: 07/14/1851807/14/18518 Results 24hrs Laboratory Tests Test 07/14/18 15:20 Body Fluid Type THORACENTESIS FLUID Body Fluid Volume 400.0 Body Fluid Color CATHY Body Fluid Appearance SLIGHTLY HAZY Body Fluid WBC 70 Body Fluid RBC (Auto) 30827 Body Fluid Polynuclear WBCs (%) 44.3 Body Fluid Mononuclear Cells % Auto 55.7 Body Fluid Total Protein < 2.0 Body Fluid Lactate Dehydrogenase 328 Subjective 24 Hr Interval Summary Free Text/Dictation Shortness of breath is still persistent Exam/Review of Systems Exam Vitals Vital Signs Date Temp Pulse Resp B/P (MAP) Pulse Ox O2 O2 Flow FiO2 Time Delivery Rate 07/15/18 97.6 20 106/67 99 Nasal 11:10 (80) Cannula 07/15/18 2.0 08:30 07/15/18 127 08:20 07/15/18 21 01:03 Intake and Output 07/14/18 07/14/18 07/15/18 1515:00 23:00 07:00 IntakeIntake Total 700 ml 400 ml OutputOutput Total 500 ml 700 ml BalanceBalance 200 ml -300 ml Exam Constitutional: alert, oriented Respiratory: clear to auscultation Cardiovascular: regular rate and rhythm, other (afib on monitor) Gastrointestinal: soft Lungs decreased breath sounds on the left base Results Results 24hrs Laboratory Tests Test 07/14/18 15:20 Body Fluid Type THORACENTESIS FLUID Body Fluid Volume 400.0 Body Fluid Color CATHY Body Fluid Appearance SLIGHTLY HAZY Body Fluid WBC 70 Body Fluid RBC (Auto) 32098 Body Fluid Polynuclear WBCs (%) 44.3 Body Fluid Mononuclear Cells % Auto 55.7 Body Fluid Total Protein < 2.0 Body Fluid Lactate Dehydrogenase 328 Medications Medication Current Medications IV Flush (NS 3 ml) 3 ml PER PROTOCOL IV ; Start 07/11/18 at 17:30 Ondansetron HCl (Zofran Inj) 4 mg Q6H PRN IV NAUSEA/VOMITING; Start 07/11/18 at 17:30 Acetaminophen (Tylenol Tab) 650 mg Q6H PRN PO .PAIN 1-3 OR TEMP; Start 07/11/18 at 17:30 Docusate Sodium (Colace) 100 mg Q12H PRN PO .CONSTIPATION; Start 07/11/18 at 17:30 Pantoprazole (Protonix Tab) 40 mg DAILY@06 PO Last administered on 07/15/18at 06:08; Admin Dose 40 MG; Start 07/12/18 at 06:00 Furosemide (Lasix) 40 mg BID DIURETICS IV Last administered on 07/15/18at 06:08; Admin Dose 40 MG; Start 07/11/18 at 18:00 Albuterol/ Ipratropium (Duoneb) 3 ml Q4H RESP THERAPY HHN Last administered on 07/15/18at 09:36; Admin Dose 3 ML; Start 07/11/18 at 21:00 Diltiazem HCl (Cardizem) 30 mg Q8 PO Last administered on 07/15/18at 06:43; Admin Dose 30 MG; Start 07/11/18 at 22:00 Dabigatran (PRADaxa) 75 mg BID PO Last administered on 07/15/18 09:47; Admin Dose 75 MG; Start 07/11/18 at 21:00 Potassium Chloride (Klor-Con 20) 20 meq BID PO Last administered on 07/15/18 09:46; Admin Dose 20 MEQ; Start 07/13/18 at 21:00 Metoprolol Tartrate (Lopressor) 25 mg BID PO Last administered on 07/15/18 09:46; Admin Dose 25 MG; Start 07/15/18 at 09:00 FIDEL GAVIN MD July 15, 2018 12:09
[2018-07-15] MEDS: DOCUSATE SODIUM 100 MG CAP PO PRN (13:02)
--- NOTE | 2018-07-15 18:16 | CONS ---
DATE OF ADMISSION: 07/11/2018 DATE OF CONSULTATION: TYPE OF CONSULTATION: Pulmonary. REASON FOR CONSULTATION: Shortness of breath. Thank you, Dr. Roberson, for this consultation. HISTORY OF PRESENT ILLNESS: This is an 78-year-old gentleman seen by myself in the past with a histo ry of COPD, CHF, recurrent pleural effusions with previous diagnosis of lung cancer and radiation nicholas atment. He presented with several day history of shortness of breath, orthopnea, PND, had a thoracen tesis with 400 mL of pleural fluid. He states he is still somewhat short of breath but currently den ies any fever, chills, chest pain or palpitations. PAST MEDICAL HISTORY: History of lung cancer, carotid endarterectomy, coronary artery disease, cardi omyopathy with decreased ejection fraction, chronic atrial fibrillation, hypertension, hyperlipidemia and COPD. MEDICATIONS: Per chart. ALLERGIES: NONE. SOCIAL HISTORY: Ex-smoker, no alcohol, no history of drug use. FAMILY HISTORY: Noncontributory. SYSTEMS REVIEW: A 12-point review of systems was negative other than that mentioned above. PHYSICAL EXAMINATION: GENERAL: Well-nourished, well-developed gentleman, comfortable at rest, talking in full and complete sentences. VITAL SIGNS: Currently afebrile, pulse is 96, blood pressure 98/54, O2 saturation 91% on room air. NECK: Supple. No JVD or lymphadenopathy. CARDIAC: S1, S2. No added sounds or murmurs. CHEST: Diminished air entry bilaterally. ABDOMEN: Soft, nontender. No guarding or rebound. EXTREMITIES: No cyanosis, clubbing or edema. NEUROLOGIC: Generalized weakness. No focal deficits. LABORATORY DATA: White count 10.4, hemoglobin 12.2, platelets 354. BUN 22, creatinine 1.15. Arteri al blood gas: PaO2 was 138 on simple mask. DIAGNOSTIC DATA: Chest x-ray shows bilateral effusions and infiltrates. IMPRESSION AND PLAN: 1. Bilateral effusions, possibly loculated. 2. Underlying chronic obstructive pulmonary disease. 3. History of recurrent thoracentesis in the past. 4. Congestive cardiac failure with decreased ejection fraction. 5. History of lung cancer status post radiation treatment. PLAN: 1. CT chest, noncontrast, to evaluate lung parenchyma and pleural effusions. 2. Continue supplemental O2 as needed. 3. Continue IV diuretics. 4. Aspiration precautions. 5. DVT and GI prophylaxis. Dictated By: AISHWARYA PICKARD MD SV/JACQUELINE Conf#: [id number] DID#: [id number] CC: CECE LOPEZ MD; FIDEL ROBERSON;*EndCC*
[2018-07-16] VITALS (13 sets, daily range): BP systolic 90–113; BP diastolic 57–67; PULSE 75–115; RESP 18–20
[2018-07-16] MEDS: ALBUTEROL/IPRATROPIUM (NEB) 3 ML AMP HHN SCH ×6 (01:23→20:10)
[2018-07-16] MEDS: DILTIAZEM 30 MG TAB PO SCH ×3 (06:00→21:27)
[2018-07-16] MEDS: PANTOPRAZOLE (EC) 40 MG TAB PO SCH (06:16)
[2018-07-16] MEDS: FUROSEMIDE 40 MG INJ IV SCH ×2 (06:17→17:40)
--- NOTE | 2018-07-16 09:03 | CONS ---
Consult Date/Type/Reason Admit Date/Time July 11, 2018 at 11:40 Initial Consult Date Date/Time of Note DATE: 07/16/18 TIME: 09:01 Subjective NO acute events - BP in good range - short run of NSVT last night - but stable otherwise. NO CP - going to CT now. ROS: No fever, no chills, no nausea, no vomiting, no diarrhea/constipation - better overall Objective Vitals Vital Signs Date Temp Pulse Resp B/P (MAP) Pulse Ox O2 O2 Flow FiO2 Time Delivery Rate 07/16/18 85 08:32 07/16/18 Nasal 2.0 08:29 Cannula 07/16/18 97.8 18 110/62 98 07:20 (78) 07/16/18 28 05:51 Intake and Output 07/15/18 07/15/18 07/16/18 1515:00 23:00 07:00 IntakeIntake Total 750 ml 700 ml OutputOutput Total 1000 ml 1500 ml BalanceBalance -250 ml -800 ml Exam General: WN/WD/NAD, AOx 3 HEENT: Unicetric/atraumatic/EOMI (follows commands) NECK: JVD elevated, no thyromegaly Lymph: no lymphadenopathy HEART: regular with no S3, II/ systolic murmur at apex LUNGS: Coarse sounds, minimal wheezing ABD: soft, NT, ND, +BS : Intact Neuro: non focal SKIN: chronic changes EXT: trace edema Results/Medications Result Diagram: 07/16/18 0433 07/16/18 0433 Results 24 hrs Laboratory Tests Test 07/16/18 04:33 White Blood Count 8.4 Red Blood Count 4.13 L Hemoglobin 11.8 L Hematocrit 36.2 L Mean Corpuscular Volume 87.7 Mean Corpuscular Hemoglobin 28.6 L Mean Corpuscular Hemoglobin Concent 32.6 Red Cell Distribution Width 14.5 Platelet Count 291 Mean Platelet Volume 9.1 Immature Granulocytes % 0.500 H Neutrophils % 64.6 Lymphocytes % 21.7 Monocytes % 11.7 H Eosinophils % 1.1 Basophils % 0.4 Nucleated Red Blood Cells % 0.0 Immature Granulocytes # 0.040 H Neutrophils # 5.4 Lymphocytes # 1.8 Monocytes # 1.0 H Eosinophils # 0.1 Basophils # 0.0 Nucleated Red Blood Cells # 0.0 Sodium Level 135 Potassium Level 4.0 Chloride Level 98 Carbon Dioxide Level 30 Anion Gap 7 Blood Urea Nitrogen 22 H Creatinine 1.20 Est Glomerular Filtrat Rate mL/min Glucose Level 113 Calcium Level 9.0 Phosphorus Level 4.0 Magnesium Level 1.7 Home Meds Active Scripts Ipratropium-Albuterol (Ipratropium-Albuterol) 0.5-3 Mg/3 Ml Ampul.neb, 3 ML HHN Q4H RESP THERAPY for 28 Days Prov:KARLEY DEAN MD 08/08/16 Reported Medications Potassium Chloride* (Klor-Con*) 20 Meq Tabsr, 40 MEQ PO BID, TAB.SA 07/11/18 Amoxicillin/Potassium Clav (Amox-Clav 875-125 mg Tablet) 875-125 mg Tab, 1 TAB PO BID, #20 TAB 07/11/18 Magnesium Hydroxide* (Milk Of Magnesia*) 400 Mg/5 Ml Oral.susp, 30 ML PO DAILY PRN for CONSTIPATION, ML 07/11/18 Pantoprazole* (Pantoprazole*) 40 Mg Tablet.dr, 40 MG PO DAILY, TAB 07/11/18 Dabigatran Etexilate Mesylate* (Pradaxa*) 75 Mg Cap, 75 MG PO BID, CAP 07/11/18 Promethazine HCl/Codeine (Prometh-Codein 6.25-10 mg/5 ml) 5 Ml Syrup, 10 ML PO Q6 PRN for COUGH 07/11/18 Albuterol Sulfate* (Proair HFA*) 8.5 Gm Hfa.aer.ad, 2 PUFF INH Q4H PRN for WHEE ZING AND SOB, #1 INHALER 07/11/18 Pptrqphujah-J-Yckfkyymay Hb* (Guaifenesin* DM Syrup) 120 Ml Syrup, 10 ML PO Q6 PRN for COUGH, ML 07/11/18 Digoxin* (Lanoxin*) 0.125 Mg Tablet, 0.125 MG PO DAILY, TAB 02/07/18 Furosemide* (Lasix*) 40 Mg Tablet, 40 MG PO DAILY, TAB 01/31/16 Discontinued Reported Medications Bupropion Hcl* (Bupropion Hcl SR*) 150 Mg Tablet.er, 150 MG PO DAILY, TAB.SA 08/18/15 Cilostazol* (Cilostazol*) 50 Mg Tablet, 50 MG PO BID, TAB 08/18/15 Polyethylene Glycol* (Polyethylene Glycol*) 17 Gm Powd.pack, 8.5 GM PO DAILY, PACKET 08/31/14 Discontinued Scripts Pantoprazole* (Pantoprazole*) 40 Mg Tablet.dr, 40 MG PO DAILY@06 for 14 Days Prov:KARLEY DEAN MD 08/08/16 Aspirin (Aspirin) 81 Mg Chew, 81 MG PO DAILY for 28 Days, TAB Prov:KARLEY DEAN MD 08/08/16 Diltiazem Hcl* (Cardizem*) 60 Mg Tablet, 60 MG PO Q8 for 30 Days, TAB Prov:KARLEY DEAN MD 08/08/16 Atenolol* (Atenolol*) 50 Mg Tablet, 50 MG PO BID for 28 Days, TAB Prov:KARLEY DEAN MD 08/08/16 Apixaban* (Eliquis*) 5 Mg Tablet, 2.5 MG PO BID for 28 Days, TAB Prov:KARLEY DEAN MD 08/08/16 Medications Current Medications IV Flush (NS 3 ml) 3 ml PER PROTOCOL IV ; Start 07/11/18 at 17:30 Ondansetron HCl (Zofran Inj) 4 mg Q6H PRN IV NAUSEA/VOMITING; Start 07/11/18 at 17:30 Acetaminophen (Tylenol Tab) 650 mg Q6H PRN PO .PAIN 1-3 OR TEMP; Start 07/11/18 at 17:30 Docusate Sodium (Colace) 100 mg Q12H PRN PO .CONSTIPATION Last administered on 07/15/18at 13:02; Admin Dose 100 MG; Start 07/11/18 at 17:30 Pantoprazole (Protonix Tab) 40 mg DAILY@06 PO Last administered on 07/16/18at 06:16; Admin Dose 40 MG; Start 07/12/18 at 06:00 Furosemide (Lasix) 40 mg BID DIURETICS IV Last administered on 07/16/18at 06:17; Admin Dose 40 MG; Start 07/11/18 at 18:00 Albuterol/ Ipratropium (Duoneb) 3 ml Q4H RESP THERAPY HHN Last administered on 07/16/18at 05:48; Admin Dose 3 ML; Start 07/11/18 at 21:00 Diltiazem HCl (Cardizem) 30 mg Q8 PO Last administered on 07/15/18at 21:18; Admin Dose 30 MG; Start 07/11/18 at 22:00 Dabigatran (PRADaxa) 75 mg BID PO Last administered on 07/15/18 21:17; Admin Dose 75 MG; Start 07/11/18 at 21:00 Potassium Chloride (Klor-Con 20) 20 meq BID PO Last administered on 07/15/18at 21:17; Admin Dose 20 MEQ; Start 07/13/18 at 21:00 Metoprolol Tartrate (Lopressor) 25 mg BID PO Last administered on 07/15/18at 21:18; Admin Dose 25 MG; Start 07/15/18 at 09:00 Assessment/Plan Hospital Course (Demo Recall) 1. Congestive heart failure exacerbation by most recent echo, diastolic, acute on chronic - better now - responded to diuresis. Much better now - will monitor. Improved with RX. 2. Atrial fibrillation, rate controlled - con't BB now. If arrhythmia resumes, will consider further supression - but for now, Mg2+ replacement. Stable - con't BB as tolerated by BP. 3. Positive troponin in the setting of renal failure, respiratory distress, likely type 2 demand infarct - no CP now, will monitor clinically. TREATED. 4. Chronic obstructive pulmonary disease - on meds, no wheezing by exam today. Con't to follow. Improved wheezing. 5. Hypertension - better RX. BP in good range now. Treated. OON meds. 6. Hyponatremia. 7. Elevated BNP. 8. Leukocytosis - rx per primary team. On anti-Bx. Improved with therapy. 9. NSVT - short run - con;t current RX - BB resumed. EMILY SANTAMARIA MD July 16, 2018 09:03
[2018-07-16] MEDS: POTASSIUM CHLORIDE (SR) 20 MEQ TAB PO SCH ×2 (09:17→21:28)
[2018-07-16] MEDS: DABIGATRAN 75 MG CAP PO SCH (09:17)
[2018-07-16] MEDS: METOPROLOL 25 MG TAB PO SCH ×2 (09:17→21:28)
--- NOTE | 2018-07-16 15:07 | CONS ---
Consult Date/Type/Reason Admit Date/Time July 11, 2018 at 11:40 Initial Consult Date Type of Consult Pulmonary Date/Time of Note DATE: 07/16/18 TIME: 15:06 Subjective patient still having respiratory distress on exertion. Chest x-ray shows right greater than left effusion. Objective Vital Signs Date Temp Pulse Resp B/P (MAP) Pulse Ox O2 O2 Flow FiO2 Time Delivery Rate 07/16/18 100/60 14:52 (73) 07/16/18 99 2.0 13:38 07/16/18 92 20 Nasal 13:37 Cannula 07/16/18 97.6 11:15 07/16/18 28 05:51 Intake and Output 07/15/18 07/15/18 07/16/18 1515:00 23:00 07:00 IntakeIntake Total 750 ml 700 ml OutputOutput Total 1000 ml 1500 ml BalanceBalance -250 ml -800 ml Exam GENERAL: Elderly gentleman on nasal cannula O2 VITAL SIGNS: per chart NECK: Supple. No JVD or lymphadenopathy. CARDIAC EXAM: S1, S2. No added sounds or murmurs. CHEST: Diminished air entry bilaterally ABDOMEN: Soft, nontender. No guarding or rebound. EXTREMITIES: No cyanosis, clubbing or edema. NEUROLOGIC: Generalized weakness. No focal deficits. Vent Setting Fraction of Inspired Oxygen pe: 28 Results/Medications Result Diagram: 07/16/18 0433 07/16/18 0433 Results 24 hrs Laboratory Tests Test 07/16/18 04:33 White Blood Count 8.4 Red Blood Count 4.13 L Hemoglobin 11.8 L Hematocrit 36.2 L Mean Corpuscular Volume 87.7 Mean Corpuscular Hemoglobin 28.6 L Mean Corpuscular Hemoglobin Concent 32.6 Red Cell Distribution Width 14.5 Platelet Count 291 Mean Platelet Volume 9.1 Immature Granulocytes % 0.500 H Neutrophils % 64.6 Lymphocytes % 21.7 Monocytes % 11.7 H Eosinophils % 1.1 Basophils % 0.4 Nucleated Red Blood Cells % 0.0 Immature Granulocytes # 0.040 H Neutrophils # 5.4 Lymphocytes # 1.8 Monocytes # 1.0 H Eosinophils # 0.1 Basophils # 0.0 Nucleated Red Blood Cells # 0.0 Sodium Level 135 Potassium Level 4.0 Chloride Level 98 Carbon Dioxide Level 30 Anion Gap 7 Blood Urea Nitrogen 22 H Creatinine 1.20 Est Glomerular Filtrat Rate mL/min Glucose Level 113 Calcium Level 9.0 Phosphorus Level 4.0 Magnesium Level 1.7 Medications Current Medications IV Flush (NS 3 ml) 3 ml PER PROTOCOL IV ; Start 07/11/18 at 17:30 Ondansetron HCl (Zofran Inj) 4 mg Q6H PRN IV NAUSEA/VOMITING; Start 07/11/18 at 17:30 Acetaminophen (Tylenol Tab) 650 mg Q6H PRN PO .PAIN 1-3 OR TEMP; Start 07/11/18 at 17:30 Docusate Sodium (Colace) 100 mg Q12H PRN PO .CONSTIPATION Last administered on 07/15/18 13:02; Admin Dose 100 MG; Start 07/11/18 at 17:30 Pantoprazole (Protonix Tab) 40 mg DAILY@06 PO Last administered on 07/16/18 06:16; Admin Dose 40 MG; Start 07/12/18 at 06:00 Furosemide (Lasix) 40 mg BID DIURETICS IV Last administered on 07/16/18 06:17; Admin Dose 40 MG; Start 07/11/18 at 18:00 Albuterol/ Ipratropium (Duoneb) 3 ml Q4H RESP THERAPY HHN Last administered on 07/16/18 13:34; Admin Dose 3 ML; Start 07/11/18 at 21:00 Diltiazem HCl (Cardizem) 30 mg Q8 PO Last administered on 07/15/18 21:18; Admin Dose 30 MG; Start 07/11/18 at 22:00 Dabigatran (PRADaxa) 75 mg BID PO Last administered on 07/16/18 09:17; Admin Dose 75 MG; Start 07/11/18 at 21:00 Potassium Chloride (Klor-Con 20) 20 meq BID PO Last administered on 07/16/18 09:17; Admin Dose 20 MEQ; Start 07/13/18 at 21:00 Metoprolol Tartrate (Lopressor) 25 mg BID PO Last administered on 07/16/18 09:17; Admin Dose 25 MG; Start 07/15/18 at 09:00 Assessment/Plan Hospital Course (Demo Recall) IMPRESSION AND PLAN: 1. Bilateral effusions, possibly loculated. Status post thoracentesis left lung history of left lung cancer 2. Underlying chronic obstructive pulmonary disease. 3. History of recurrent thoracentesis in the past. 4. Congestive cardiac failure with decreased ejection fraction. 5. History of lung cancer status post radiation treatment. PLAN: 1. Right lung thoracentesis with pleural fluid studies 2. Continue supplemental O2 as needed. 3. Continue IV diuretics. 4. Aspiration precautions. 5. DVT and GI prophylaxis AISHWARYA PICKARD MD, [facility] July 16, 2018 15:07
--- NOTE | 2018-07-16 15:20 | PN ---
Date/Time of Note Date/Time of Note DATE: 07/16/18 TIME: 15:18 Assessment/Plan VTE Prophylaxis Risk score (from [facility])>0 risk: 6 SCD applied (from Ns): Yes Pharmacological prophylaxis: NA/contraindicated Pharm contraindication: low risk/ambulating Lines/Catheters IV Catheter Type (from [facility] Saline Lock Urinary Cath still in place: No Assessment/Plan Assessment/Plan 1. Shortness of breath likely secondary to congestive heart failure evident on chest x-ray and could have some underlying chronic obstructive pulmonary disease. Better this post thoracentesis now removal of 400 cc now with rt sided effsuion 2. Elevated troponin with EKG changes likely secondary to non-ST elevation myocardial infarction. Now with A. fib on Pradaxa 3. Elevated BNP secondary to congestive heart failure. 4. Hypertension, controlled. 5. Hyperlipidemia. 6. History of congestive heart failure and cardiomyopathy. 7. History of chronic atrial fibrillation. On Pradaxa 8. Hyperlipidemia. 9. History of lung cancer. 10. Chronic kidney disease. 11. History of pneumothorax status post chest tube placement. 12. Anemia 13. Left lung pleural effusion, increasing in size 14. former smoker a/p - CT chest left empyema? but has rt sided effusion - fu pul recs - rt sided thoracentesis - hold pradaxa -c/w IV Lasix. 40 bid -c/w Cardizem/mtp -DVT proph. -GI proph Protonix. -Cardiology consultation [place] Result Diagram: 07/16/18 0433 07/16/18 0433 Results 24hrs Laboratory Tests Test 07/16/18 04:33 White Blood Count 8.4 Red Blood Count 4.13 L Hemoglobin 11.8 L Hematocrit 36.2 L Mean Corpuscular Volume 87.7 Mean Corpuscular Hemoglobin 28.6 L Mean Corpuscular Hemoglobin Concent 32.6 Red Cell Distribution Width 14.5 Platelet Count 291 Mean Platelet Volume 9.1 Immature Granulocytes % 0.500 H Neutrophils % 64.6 Lymphocytes % 21.7 Monocytes % 11.7 H Eosinophils % 1.1 Basophils % 0.4 Nucleated Red Blood Cells % 0.0 Immature Granulocytes # 0.040 H Neutrophils # 5.4 Lymphocytes # 1.8 Monocytes # 1.0 H Eosinophils # 0.1 Basophils # 0.0 Nucleated Red Blood Cells # 0.0 Sodium Level 135 Potassium Level 4.0 Chloride Level 98 Carbon Dioxide Level 30 Anion Gap 7 Blood Urea Nitrogen 22 H Creatinine 1.20 Est Glomerular Filtrat Rate mL/min Glucose Level 113 Calcium Level 9.0 Phosphorus Level 4.0 Magnesium Level 1.7 Subjective 24 Hr Interval Summary Free Text/Dictation Pt still sob at times CT chest noted Exam/Review of Systems Exam Vitals Vital Signs Date Temp Pulse Resp B/P (MAP) Pulse Ox O2 O2 Flow FiO2 Time Delivery Rate 07/16/18 100/60 14:52 (73) 07/16/18 99 2.0 13:38 07/16/18 92 20 Nasal 13:37 Cannula 07/16/18 97.6 11:15 07/16/18 28 05:51 Intake and Output 07/15/18 07/15/18 07/16/18 1515:00 23:00 07:00 IntakeIntake Total 750 ml 700 ml OutputOutput Total 1000 ml 1500 ml BalanceBalance -250 ml -800 ml Exam onstitutional: alert, oriented Respiratory: clear to auscultation Cardiovascular: regular rate and rhythm, other (afib on monitor) Gastrointestinal: soft Lungs decreased breath sounds on the left base and rt Results Results 24hrs Laboratory Tests Test 07/16/18 04:33 White Blood Count 8.4 Red Blood Count 4.13 L Hemoglobin 11.8 L Hematocrit 36.2 L Mean Corpuscular Volume 87.7 Mean Corpuscular Hemoglobin 28.6 L Mean Corpuscular Hemoglobin Concent 32.6 Red Cell Distribution Width 14.5 Platelet Count 291 Mean Platelet Volume 9.1 Immature Granulocytes % 0.500 H Neutrophils % 64.6 Lymphocytes % 21.7 Monocytes % 11.7 H Eosinophils % 1.1 Basophils % 0.4 Nucleated Red Blood Cells % 0.0 Immature Granulocytes # 0.040 H Neutrophils # 5.4 Lymphocytes # 1.8 Monocytes # 1.0 H Eosinophils # 0.1 Basophils # 0.0 Nucleated Red Blood Cells # 0.0 Sodium Level 135 Potassium Level 4.0 Chloride Level 98 Carbon Dioxide Level 30 Anion Gap 7 Blood Urea Nitrogen 22 H Creatinine 1.20 Est Glomerular Filtrat Rate mL/min Glucose Level 113 Calcium Level 9.0 Phosphorus Level 4.0 Magnesium Level 1.7 Medications Medication Current Medications IV Flush (NS 3 ml) 3 ml PER PROTOCOL IV ; Start 07/11/18 at 17:30 Ondansetron HCl (Zofran Inj) 4 mg Q6H PRN IV NAUSEA/VOMITING; Start 07/11/18 at 17:30 Acetaminophen (Tylenol Tab) 650 mg Q6H PRN PO .PAIN 1-3 OR TEMP; Start 07/11/18 at 17:30 Docusate Sodium (Colace) 100 mg Q12H PRN PO .CONSTIPATION Last administered on 07/15/18 13:02; Admin Dose 100 MG; Start 07/11/18 at 17:30 Pantoprazole (Protonix Tab) 40 mg DAILY@06 PO Last administered on 07/16/18 06:16; Admin Dose 40 MG; Start 07/12/18 at 06:00 Furosemide (Lasix) 40 mg BID DIURETICS IV Last administered on 07/16/18 06:17; Admin Dose 40 MG; Start 07/11/18 at 18:00 Albuterol/ Ipratropium (Duoneb) 3 ml Q4H RESP THERAPY HHN Last administered on 07/16/18 13:34; Admin Dose 3 ML; Start 07/11/18 at 21:00 Diltiazem HCl (Cardizem) 30 mg Q8 PO Last administered on 07/15/18 21:18; Admin Dose 30 MG; Start 07/11/18 at 22:00 Potassium Chloride (Klor-Con 20) 20 meq BID PO Last administered on 07/16/18 09:17; Admin Dose 20 MEQ; Start 07/13/18 at 21:00 Metoprolol Tartrate (Lopressor) 25 mg BID PO Last administered on 07/16/18 09:17; Admin Dose 25 MG; Start 07/15/18 at 09:00 FIDEL GAVIN MD July 16, 2018 15:20
[2018-07-17] VITALS (13 sets, daily range): BP systolic 98–135; BP diastolic 55–85; PULSE 79–124; RESP 18–22
[2018-07-17] MEDS: ALBUTEROL/IPRATROPIUM (NEB) 3 ML AMP HHN SCH ×6 (01:23→20:27)
[2018-07-17] MEDS: DILTIAZEM 30 MG TAB PO SCH ×3 (06:00→22:28)
[2018-07-17] MEDS: PANTOPRAZOLE (EC) 40 MG TAB PO SCH (06:36)
[2018-07-17] MEDS: FUROSEMIDE 40 MG INJ IV SCH ×2 (06:36→17:33)
[2018-07-17] MEDS: POTASSIUM CHLORIDE (SR) 20 MEQ TAB PO SCH ×2 (08:21→20:40)
[2018-07-17] MEDS: METOPROLOL 25 MG TAB PO SCH (08:22)
--- NOTE | 2018-07-17 11:46 | PN ---
Date/Time of Note Date/Time of Note DATE: 07/17/18 TIME: 11:46 Assessment/Plan VTE Prophylaxis Risk score (from Ns)>0 risk: 5 SCD applied (from Ns): No SCD contraindicated: low risk/ambulating Pharmacological prophylaxis: NA/contraindicated Pharm contraindication: low risk/ambulating Lines/Catheters [facility] Saline Lock Urinary Cath still in place: No Assessment/Plan Assessment/Plan 1. Shortness of breath likely secondary to congestive heart failure evident on chest x-ray and could have some underlying chronic obstructive pulmonary disease. Better this post thoracentesis now removal of 400 cc now with rt sided effsuion 2. Elevated troponin with EKG changes likely secondary to non-ST elevation myocardial infarction. Now with A. fib on Pradaxa 3. Elevated BNP secondary to congestive heart failure. 4. Hypertension, controlled. 5. Hyperlipidemia. 6. History of congestive heart failure and cardiomyopathy. 7. History of chronic atrial fibrillation. On Pradaxa 8. Hyperlipidemia. 9. History of lung cancer. 10. Chronic kidney disease. 11. History of pneumothorax status post chest tube placement. 12. Anemia 13. Left lung pleural effusion, increasing in size 14. former smoker a/p - CT chest left empyema? but has rt sided effusion s/p thoracentesis today - fu pul recs - restart pradaxa -c/w IV Lasix. 40 bid -c/w Cardizem/mtp -DVT proph. -GI proph Protonix. -Cardiology consultation [place] SNIF placement Result Diagram: 07/16/18 0433 07/17/18 0540 Results 24hrs Laboratory Tests Test 07/16/18 16:30 07/17/18 05:40 Prothrombin Time 17.1 H Prothrombin Time Ratio 1.3 INR International Normalized Ratio 1.38 Activated Partial Thromboplast Time 51.2 H Sodium Level 136 Potassium Level 3.9 Chloride Level 98 Carbon Dioxide Level 30 Anion Gap 8 Blood Urea Nitrogen 24 H Creatinine 1.24 Est Glomerular Filtrat Rate mL/min Glucose Level 101 Calcium Level 9.1 Phosphorus Level 4.0 Magnesium Level 1.7 Subjective 24 Hr Interval Summary Free Text/Dictation S/P Rt thoracentesis today pt feels better Exam/Review of Systems Exam Vitals Vital Signs Date Temp Pulse Resp B/P (MAP) Pulse Ox O2 O2 Flow FiO2 Time Delivery Rate 07/17/18 112 22 98/64 (75) 97 Room Air 10:55 07/17/18 2.0 08:20 07/17/18 97.5 07:38 07/17/18 21 04:55 Intake and Output 07/16/18 07/16/18 07/17/18 1515:00 23:00 07:00 IntakeIntake Total 750 ml 700 ml OutputOutput Total 900 ml 850 ml BalanceBalance -150 ml -150 ml Exam onstitutional: alert, oriented Respiratory: clear to auscultation Cardiovascular: regular rate and rhythm, other (afib on monitor) Gastrointestinal: soft Lungs decreased breath sounds on the left base and rt Results Results 24hrs Laboratory Tests Test 07/16/18 16:30 07/17/18 05:40 Prothrombin Time 17.1 H Prothrombin Time Ratio 1.3 INR International Normalized Ratio 1.38 Activated Partial Thromboplast Time 51.2 H Sodium Level 136 Potassium Level 3.9 Chloride Level 98 Carbon Dioxide Level 30 Anion Gap 8 Blood Urea Nitrogen 24 H Creatinine 1.24 Est Glomerular Filtrat Rate mL/min Glucose Level 101 Calcium Level 9.1 Phosphorus Level 4.0 Magnesium Level 1.7 Medications Medication Current Medications IV Flush (NS 3 ml) 3 ml PER PROTOCOL IV ; Start 07/11/18 at 17:30 Ondansetron HCl (Zofran Inj) 4 mg Q6H PRN IV NAUSEA/VOMITING; Start 07/11/18 at 17:30 Acetaminophen (Tylenol Tab) 650 mg Q6H PRN PO .PAIN 1-3 OR TEMP; Start 07/11/18 at 17:30 Docusate Sodium (Colace) 100 mg Q12H PRN PO .CONSTIPATION Last administered on 07/15/18at 13:02; Admin Dose 100 MG; Start 07/11/18 at 17:30 Pantoprazole (Protonix Tab) 40 mg DAILY@06 PO Last administered on 07/17/18at 06:36; Admin Dose 40 MG; Start 07/12/18 at 06:00 Furosemide (Lasix) 40 mg BID DIURETICS IV Last administered on 07/17/18at 06:36; Admin Dose 40 MG; Start 07/11/18 at 18:00 Albuterol/ Ipratropium (Duoneb) 3 ml Q4H RESP THERAPY HHN Last administered on 07/17/18 08:39; Admin Dose 3 ML; Start 07/11/18 at 21:00 Diltiazem HCl (Cardizem) 30 mg Q8 PO Last administered on 07/16/18 21:27; Admin Dose 30 MG; Start 07/11/18 at 22:00 Potassium Chloride (Klor-Con 20) 20 meq BID PO Last administered on 07/17/18 08:21; Admin Dose 20 MEQ; Start 07/13/18 at 21:00 Metoprolol Tartrate (Lopressor) 25 mg BID PO Last administered on 07/17/18 08:22; Admin Dose 25 MG; Start 07/15/18 at 09:00 FIDEL GAVIN MD July 17, 2018 11:46
[2018-07-17] MEDS ORDERED: LIDOCAINE 1% (MPF) 5 ML VIAL ONE (12:15)
--- NOTE | 2018-07-17 14:07 | CONS ---
Assessment/Plan Assessment/Plan Hospital Course (Demo Recall) IMPRESSION: 1. Congestive heart failure exacerbation by most recent echo, diastolic, acute on chronic. 2. Atrial fibrillation-uncontrolled 3. Positive troponin in the setting of renal failure, respiratory distress, likely type 2 demand infarct. 4. Chronic obstructive pulmonary disease. 5. Hypertension. 6. Hyponatremia. 7. Elevated BNP. 8. Leukocytosis. 9. Recc: -Tele -continue diltiazem and change BB to atenolol -Digoxin IVP to improve HR control -Pradaxa held for thoracentesis -Continue lasix diuresis Consultation Date/Type/Reason Admit Date/Time July 11, 2018 at 11:40 Initial Consult Date 07/16/18 Type of Consult Cardiology Reason for Consultation AF Requesting Provider: FIDEL GAVIN MD Date/Time of Note DATE: 07/17/18 TIME: 13:58 Exam/Review of Systems Vital Signs Vitals Vital Signs Date Temp Pulse Resp B/P (MAP) Pulse Ox O2 O2 Flow FiO2 Time Delivery Rate 07/17/18 110 12:55 07/17/18 97.5 20 130/63 97 Room Air 12:53 (85) 07/17/18 2.0 08:20 07/17/18 21 04:55 Intake and Output 07/16/18 07/16/18 07/17/18 1515:00 23:00 07:00 IntakeIntake Total 750 ml 700 ml OutputOutput Total 900 ml 850 ml BalanceBalance -150 ml -150 ml Exam Exam Review of Systems: CONSTITUTIONAL: No fevers, chills. PULMONARY: No sob CARDIOVASCULAR: No chest pain/palpitations GASTROINTESTINAL: No nausea/vomiting. GENITOURINARY: No hematuria/dysuria. MUSCULOSKELETAL: No myagias/arthalgias. PSYCHIATRIC: The patient denies depression. NEUROLOGIC: No weakness Constitutional: alert Psych: no complaints Head: normocephalic ENMT: mucosa pink and moist Neck: supple, jvd (9 cm water) Respiratory: diminished breath sounds Cardiovascular: regular rate and rhythm Gastrointestinal: soft, non-tender Musculoskeletal: muscle tone (normal) Extremities: edema (none) 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: other (No focal deficits) Labs Result Diagram: 07/16/18 0433 07/17/18 0540 Results 24hrs Laboratory Tests Test 07/16/18 16:30 07/17/18 05:40 07/17/18 12:15 Prothrombin Time 17.1 H Prothrombin Time Ratio 1.3 INR International 1.38 Normalized Ratio Activated 51.2 H Partial Thromboplast Time Sodium Level 136 Potassium Level 3.9 Chloride Level 98 Carbon Dioxide Level 30 Anion Gap 8 Blood Urea Nitrogen 24 H Creatinine 1.24 Est Glomerular Filtrat Rate mL/min Glucose Level 101 Calcium Level 9.1 Phosphorus Level 4.0 Magnesium Level 1.7 Pathologist YES Review (Hematology) Body Fluid Type THORACENTESIS FLUID Body Fluid Volume 1100.0 Body Fluid Color YELLOW Body Fluid Appearance HAZY Body Fluid WBC 600 Body Fluid RBC (Auto) 77713 Body Fluid Polynuclear 7.9 WBCs (%) Body Fluid Mononuclear 92.1 Cells % Auto Body Fluid Glucose 118 Body Fluid Total Protein 3.3 Body Fluid 463 Lactate Dehydrogenase Medications Medications Current Medications IV Flush (NS 3 ml) 3 ml PER PROTOCOL IV ; Start 07/11/18 at 17:30 Ondansetron HCl (Zofran Inj) 4 mg Q6H PRN IV NAUSEA/VOMITING; Start 07/11/18 at 17:30 Acetaminophen (Tylenol Tab) 650 mg Q6H PRN PO .PAIN 1-3 OR TEMP; Start 07/11/18 at 17:30 Docusate Sodium (Colace) 100 mg Q12H PRN PO .CONSTIPATION Last administered on 07/15/18at 13:02; Admin Dose 100 MG; Start 07/11/18 at 17:30 Pantoprazole (Protonix Tab) 40 mg DAILY@06 PO Last administered on 07/17/18at 06:36; Admin Dose 40 MG; Start 07/12/18 at 06:00 Furosemide (Lasix) 40 mg BID DIURETICS IV Last administered on 07/17/18at 06:36; Admin Dose 40 MG; Start 07/11/18 at 18:00 Albuterol/ Ipratropium (Duoneb) 3 ml Q4H RESP THERAPY HHN Last administered on 07/17/18at 08:39; Admin Dose 3 ML; Start 07/11/18 at 21:00 Diltiazem HCl (Cardizem) 30 mg Q8 PO Last administered on 07/17/18at 13:33; Admin Dose 30 MG; Start 07/11/18 at 22:00 Potassium Chloride (Klor-Con 20) 20 meq BID PO Last administered on 07/17/18at 08:21; Admin Dose 20 MEQ; Start 07/13/18 at 21:00 Metoprolol Tartrate (Lopressor) 25 mg BID PO Last administered on 07/17/18at 08:22; Admin Dose 25 MG; Start 07/15/18 at 09:00 CECE LOPEZ July 17, 2018 14:07
[2018-07-17] MEDS ORDERED: METOPROLOL 5 MG INJ IV PRN (14:30)
--- NOTE | 2018-07-17 14:37 | CONS ---
Consult Date/Type/Reason Admit Date/Time July 11, 2018 at 11:40 Initial Consult Date Type of Consult Pulmonary Requesting Provider: FIDEL GAVIN MD Date/Time of Note DATE: 07/17/18 TIME: 14:36 Subjective Feels significantly better following thoracentesis. Greater than 1.2 L removed. No shortness of breath chest x-ray shows no pneumothorax. Objective Vital Signs Date Temp Pulse Resp B/P (MAP) Pulse Ox O2 O2 Flow FiO2 Time Delivery Rate 07/17/18 110 12:55 07/17/18 97.5 20 130/63 97 Room Air 12:53 (85) 07/17/18 2.0 08:20 07/17/18 21 04:55 Intake and Output 07/16/18 07/16/18 07/17/18 1515:00 23:00 07:00 IntakeIntake Total 750 ml 700 ml OutputOutput Total 900 ml 850 ml BalanceBalance -150 ml -150 ml Exam GENERAL: Elderly gentleman on nasal cannula O2 VITAL SIGNS: per chart NECK: Supple. No JVD or lymphadenopathy. CARDIAC EXAM: S1, S2. No added sounds or murmurs. CHEST: Diminished air entry bilaterally ABDOMEN: Soft, nontender. No guarding or rebound. EXTREMITIES: No cyanosis, clubbing or edema. NEUROLOGIC: Generalized weakness. No focal deficits. Vent Setting Fraction of Inspired Oxygen pe: 21 Results/Medications Result Diagram: 07/16/18 0433 07/17/18 0540 Results 24 hrs Laboratory Tests Test 07/16/18 16:30 07/17/18 05:40 07/17/18 12:15 Prothrombin Time 17.1 H Prothrombin Time Ratio 1.3 INR International 1.38 Normalized Ratio Activated 51.2 H Partial Thromboplast Time Sodium Level 136 Potassium Level 3.9 Chloride Level 98 Carbon Dioxide Level 30 Anion Gap 8 Blood Urea Nitrogen 24 H Creatinine 1.24 Est Glomerular Filtrat Rate mL/min Glucose Level 101 Calcium Level 9.1 Phosphorus Level 4.0 Magnesium Level 1.7 Pathologist YES Review (Hematology) Body Fluid Type THORACENTESIS FLUID Body Fluid Volume 1100.0 Body Fluid Color YELLOW Body Fluid Appearance HAZY Body Fluid WBC 600 Body Fluid RBC (Auto) 04103 Body Fluid Polynuclear 7.9 WBCs (%) Body Fluid Mononuclear 92.1 Cells % Auto Body Fluid Glucose 118 Body Fluid Total Protein 3.3 Body Fluid 463 Lactate Dehydrogenase Medications Current Medications IV Flush (NS 3 ml) 3 ml PER PROTOCOL IV ; Start 07/11/18 at 17:30 Ondansetron HCl (Zofran Inj) 4 mg Q6H PRN IV NAUSEA/VOMITING; Start 07/11/18 at 17:30 Acetaminophen (Tylenol Tab) 650 mg Q6H PRN PO .PAIN 1-3 OR TEMP; Start 07/11/18 at 17:30 Docusate Sodium (Colace) 100 mg Q12H PRN PO .CONSTIPATION Last administered on 07/15/18at 13:02; Admin Dose 100 MG; Start 07/11/18 at 17:30 Pantoprazole (Protonix Tab) 40 mg DAILY@06 PO Last administered on 07/17/18 06:36; Admin Dose 40 MG; Start 07/12/18 at 06:00 Furosemide (Lasix) 40 mg BID DIURETICS IV Last administered on 07/17/18 06:36; Admin Dose 40 MG; Start 07/11/18 at 18:00 Albuterol/ Ipratropium (Duoneb) 3 ml Q4H RESP THERAPY HHN Last administered on 07/17/18at 08:39; Admin Dose 3 ML; Start 07/11/18 at 21:00 Diltiazem HCl (Cardizem) 30 mg Q8 PO Last administered on 07/17/18at 13:33; Admin Dose 30 MG; Start 07/11/18 at 22:00 Potassium Chloride (Klor-Con 20) 20 meq BID PO Last administered on 07/17/18 08:21; Admin Dose 20 MEQ; Start 07/13/18 at 21:00 Atenolol (Tenormin) 25 mg BID PO ; Start 07/17/18 at 21:00 Digoxin (Digoxin) 250 mcg Q6H IV ; Start 07/17/18 at 14:30; Stop 07/17/18 at 20:31 Metoprolol Tartrate (Lopressor) 5 mg Q4H PRN IV HR>110 Hold SBP<100; Start 07/17/18 at 14:30 Dabigatran (PRADaxa) 75 mg BID PO ; Start 07/18/18 at 09:00 Assessment/Plan Hospital Course (Demo Recall) IMPRESSION AND PLAN: 1. Bilateral effusions, possibly loculated. Status post thoracentesis left lung history of left lung cancer. Status post thoracentesis right pleural effusion with complete resolution. 2. Underlying chronic obstructive pulmonary disease. 3. History of recurrent thoracentesis in the past. 4. Congestive cardiac failure with decreased ejection fraction. 5. History of lung cancer status post radiation treatment. PLAN: 1. Serial chest x-rays await pleural fluid studies 2. Continue supplemental O2 as needed. 3. Continue IV diuretics. 4. Aspiration precautions. 5. DVT and GI prophylaxis DC planning. AISHWARYA PICKARD MD, [facility] July 17, 2018 14:37
[2018-07-17] MEDS: DIGOXIN 500 MCG INJ IV SCH ×2 (15:36→20:39)
[2018-07-17] MEDS: ATENOLOL 25 MG TAB PO SCH (20:40)
[2018-07-18] VITALS (15 sets, daily range): BP systolic 90–112; BP diastolic 54–70; PULSE 76–164; RESP 16–22
[2018-07-18] MEDS: ALBUTEROL/IPRATROPIUM (NEB) 3 ML AMP HHN SCH ×6 (00:29→20:21)
[2018-07-18] MEDS: PANTOPRAZOLE (EC) 40 MG TAB PO SCH (05:59)
[2018-07-18] MEDS: DILTIAZEM 30 MG TAB PO SCH ×3 (05:59→22:12)
[2018-07-18] MEDS: FUROSEMIDE 40 MG INJ IV SCH ×2 (06:00→17:52)
[2018-07-18] MEDS: DABIGATRAN 75 MG CAP PO SCH ×2 (08:11→20:17)
[2018-07-18] MEDS: ATENOLOL 25 MG TAB PO SCH ×3 (08:12→21:00)
[2018-07-18] MEDS: POTASSIUM CHLORIDE (SR) 20 MEQ TAB PO SCH ×2 (08:13→20:17)
--- NOTE | 2018-07-18 11:49 | CONS ---
Consult Date/Type/Reason Admit Date/Time July 11, 2018 at 11:40 Initial Consult Date Type of Consult Pulmonary Requesting Provider: FIDEL GAVIN MD Date/Time of Note DATE: 07/18/18 TIME: 11:49 Subjective Patient appears comfortable this morning no respiratory distress Objective Vital Signs Date Temp Pulse Resp B/P (MAP) Pulse Ox O2 O2 Flow FiO2 Time Delivery Rate 07/18/18 97.5 102 16 99/65 (76) 98 Room Air 11:15 07/18/18 21 09:03 07/18/18 10.0 07:58 Intake and Output 07/17/18 07/17/18 07/18/18 1515:00 23:00 07:00 IntakeIntake Total 960 ml 350 ml OutputOutput Total 1500 ml 1000 ml BalanceBalance -1500 ml 960 ml -650 ml Exam GENERAL: Elderly gentleman on nasal cannula O2 VITAL SIGNS: per chart NECK: Supple. No JVD or lymphadenopathy. CARDIAC EXAM: S1, S2. No added sounds or murmurs. CHEST: Diminished air entry bilaterally ABDOMEN: Soft, nontender. No guarding or rebound. EXTREMITIES: No cyanosis, clubbing or edema. NEUROLOGIC: Generalized weakness. No focal deficits. Vent Setting Fraction of Inspired Oxygen pe: 21 Results/Medications Result Diagram: 07/18/18 0515 07/18/18 0515 Results 24 hrs Laboratory Tests Test 07/17/18 12:15 07/18/18 05:15 Pathologist Review (Hematology) YES Body Fluid Type THORACENTESIS FLUID Body Fluid Volume 1100.0 Body Fluid Color YELLOW Body Fluid Appearance HAZY Body Fluid WBC 600 Body Fluid RBC (Auto) 60225 Body Fluid Polynuclear WBCs (%) 7.9 Body Fluid Mononuclear Cells % Auto 92.1 Body Fluid Glucose 118 Body Fluid Total Protein 3.3 Body Fluid Lactate Dehydrogenase 463 White Blood Count 9.2 Red Blood Count 4.62 L Hemoglobin 13.2 L Hematocrit 40.3 L Mean Corpuscular Volume 87.2 Mean Corpuscular Hemoglobin 28.6 L Mean Corpuscular Hemoglobin Concent 32.8 Red Cell Distribution Width 14.3 Platelet Count 292 Mean Platelet Volume 9.2 Immature Granulocytes % 0.400 Neutrophils % 66.7 Lymphocytes % 17.5 Monocytes % 14.1 H Eosinophils % 1.0 Basophils % 0.3 Nucleated Red Blood Cells % 0.0 Immature Granulocytes # 0.040 H Neutrophils # 6.1 Lymphocytes # 1.6 Monocytes # 1.3 H Eosinophils # 0.1 Basophils # 0.0 Nucleated Red Blood Cells # 0.0 Sodium Level 135 Potassium Level 4.4 Chloride Level 95 L Carbon Dioxide Level 32 H Anion Gap 8 Blood Urea Nitrogen 26 H Creatinine 1.33 H Est Glomerular Filtrat Rate mL/min Glucose Level 97 Calcium Level 9.4 Phosphorus Level 3.9 Magnesium Level 1.7 Medications Current Medications IV Flush (NS 3 ml) 3 ml PER PROTOCOL IV ; Start 07/11/18 at 17:30 Ondansetron HCl (Zofran Inj) 4 mg Q6H PRN IV NAUSEA/VOMITING; Start 07/11/18 at 17:30 Acetaminophen (Tylenol Tab) 650 mg Q6H PRN PO .PAIN 1-3 OR TEMP; Start 07/11/18 at 17:30 Docusate Sodium (Colace) 100 mg Q12H PRN PO .CONSTIPATION Last administered on 07/15/18 13:02; Admin Dose 100 MG; Start 07/11/18 at 17:30 Pantoprazole (Protonix Tab) 40 mg DAILY@06 PO Last administered on 07/18/18 05:59; Admin Dose 40 MG; Start 07/12/18 at 06:00 Furosemide (Lasix) 40 mg BID DIURETICS IV Last administered on 07/18/18 06:00 ; Admin Dose 40 MG; Start 07/11/18 at 18:00 Albuterol/ Ipratropium (Duoneb) 3 ml Q4H RESP THERAPY HHN Last administered on 07/18/18 09:03; Admin Dose 3 ML; Start 07/11/18 at 21:00 Diltiazem HCl (Cardizem) 30 mg Q8 PO Last administered on 07/17/18 22:28; Admin Dose 30 MG; Start 07/11/18 at 22:00 Potassium Chloride (Klor-Con 20) 20 meq BID PO Last administered on 07/18/18 08:13; Admin Dose 20 MEQ; Start 07/13/18 at 21:00 Atenolol (Tenormin) 25 mg BID PO Last administered on 07/17/18 20:40; Admin Dose 25 MG; Start 07/17/18 at 21:00 Metoprolol Tartrate (Lopressor) 5 mg Q4H PRN IV HR>110 Hold SBP<100; Start 07/17/18 at 14:30 Dabigatran (PRADaxa) 75 mg BID PO Last administered on 07/18/18at 08:11; Admin Dose 75 MG; Start 07/18/18 at 09:00 Assessment/Plan Hospital Course (Demo Recall) IMPRESSION AND PLAN: 1. Bilateral effusions, possibly loculated. Status post thoracentesis left lung history of left lung cancer. Status post thoracentesis right pleural effusion with complete resolution. 2. Underlying chronic obstructive pulmonary disease. 3. History of recurrent thoracentesis in the past. 4. Congestive cardiac failure with decreased ejection fraction. 5. History of lung cancer status post radiation treatment. PLAN: 1. Outpatient pulmonary follow-up 2. Continue supplemental O2 as needed. 3. Oral diuretics. 4. Aspiration precautions. 5. DVT and GI prophylaxis DC planning. AISHW[facility]A PICKARD MD, [facility] July 18, 2018 11:49
--- NOTE | 2018-07-18 11:51 | CONS ---
Assessment/Plan Assessment/Plan Hospital Course (Demo Recall) IMPRESSION: 1. Congestive heart failure exacerbation by most recent echo, diastolic, acute on chronic. 2. Atrial fibrillation-uncontrolled but had BB/CCB held today 3. Positive troponin in the setting of renal failure, respiratory distress, likely type 2 demand infarct. 4. Chronic obstructive pulmonary disease. 5. Hypertension. 6. Hyponatremia. 7. Elevated BNP. 8. Leukocytosis. 9. Recc: -Tele -continue diltiazem/BB as tolerated and will change hold parameters to assure patient receives -Digoxin IVP to improve HR control -Pradaxa now resumed -Continue lasix diuresis Consultation Date/Type/Reason Admit Date/Time July 11, 2018 at 11:40 Initial Consult Date 07/16/18 Type of Consult Cardiology Reason for Consultation AF Requesting Provider: FIDEL GAVIN MD Date/Time of Note DATE: 07/18/18 TIME: 11:50 Exam/Review of Systems Vital Signs Vitals Vital Signs Date Temp Pulse Resp B/P (MAP) Pulse Ox O2 O2 Flow FiO2 Time Delivery Rate 07/18/18 97.5 102 16 99/65 (76) 98 Room Air 11:15 07/18/18 21 09:03 07/18/18 10.0 07:58 Intake and Output 07/17/18 07/17/18 07/18/18 1515:00 23:00 07:00 IntakeIntake Total 960 ml 350 ml OutputOutput Total 1500 ml 1000 ml BalanceBalance -1500 ml 960 ml -650 ml Exam Exam Review of Systems: CONSTITUTIONAL: No fevers, chills. PULMONARY: No sob CARDIOVASCULAR: No chest pain/palpitations GASTROINTESTINAL: No nausea/vomiting. GENITOURINARY: No hematuria/dysuria. MUSCULOSKELETAL: No myagias/arthalgias. PSYCHIATRIC: The patient denies depression. NEUROLOGIC: No weakness Constitutional: alert Psych: no complaints Head: normocephalic ENMT: mucosa pink and moist Neck: supple, jvd (9 cm water) Respiratory: diminished breath sounds Cardiovascular: irregular rhythm Gastrointestinal: soft, non-tender Musculoskeletal: muscle tone (normal) Extremities: edema (none) 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: other (No focal deficits) Labs Result Diagram: 07/18/18 0515 07/18/18 0515 Results 24hrs Laboratory Tests Test 07/17/18 12:15 07/18/18 05:15 Pathologist Review (Hematology) YES Body Fluid Type THORACENTESIS FLUID Body Fluid Volume 1100.0 Body Fluid Color YELLOW Body Fluid Appearance HAZY Body Fluid WBC 600 Body Fluid RBC (Auto) 11765 Body Fluid Polynuclear WBCs (%) 7.9 Body Fluid Mononuclear Cells % Auto 92.1 Body Fluid Glucose 118 Body Fluid Total Protein 3.3 Body Fluid Lactate Dehydrogenase 463 White Blood Count 9.2 Red Blood Count 4.62 L Hemoglobin 13.2 L Hematocrit 40.3 L Mean Corpuscular Volume 87.2 Mean Corpuscular Hemoglobin 28.6 L Mean Corpuscular Hemoglobin Concent 32.8 Red Cell Distribution Width 14.3 Platelet Count 292 Mean Platelet Volume 9.2 Immature Granulocytes % 0.400 Neutrophils % 66.7 Lymphocytes % 17.5 Monocytes % 14.1 H Eosinophils % 1.0 Basophils % 0.3 Nucleated Red Blood Cells % 0.0 Immature Granulocytes # 0.040 H Neutrophils # 6.1 Lymphocytes # 1.6 Monocytes # 1.3 H Eosinophils # 0.1 Basophils # 0.0 Nucleated Red Blood Cells # 0.0 Sodium Level 135 Potassium Level 4.4 Chloride Level 95 L Carbon Dioxide Level 32 H Anion Gap 8 Blood Urea Nitrogen 26 H Creatinine 1.33 H Est Glomerular Filtrat Rate mL/min Glucose Level 97 Calcium Level 9.4 Phosphorus Level 3.9 Magnesium Level 1.7 Medications Medications Current Medications IV Flush (NS 3 ml) 3 ml PER PROTOCOL IV ; Start 07/11/18 at 17:30 Ondansetron HCl (Zofran Inj) 4 mg Q6H PRN IV NAUSEA/VOMITING; Start 07/11/18 at 17:30 Acetaminophen (Tylenol Tab) 650 mg Q6H PRN PO .PAIN 1-3 OR TEMP; Start 07/11/18 at 17:30 Docusate Sodium (Colace) 100 mg Q12H PRN PO .CONSTIPATION Last administered on 07/15/18at 13:02; Admin Dose 100 MG; Start 07/11/18 at 17:30 Pantoprazole (Protonix Tab) 40 mg DAILY@06 PO Last administered on 07/18/18at 05:59; Admin Dose 40 MG; Start 07/12/18 at 06:00 Furosemide (Lasix) 40 mg BID DIURETICS IV Last administered on 07/18/18at 06:00; Admin Dose 40 MG; Start 07/11/18 at 18:00 Albuterol/ Ipratropium (Duoneb) 3 ml Q4H RESP THERAPY HHN Last administered on 07/18/18at 09:03; Admin Dose 3 ML; Start 07/11/18 at 21:00 Diltiazem HCl (Cardizem) 30 mg Q8 PO Last administered on 07/17/18at 22:28; Admin Dose 30 MG; Start 07/11/18 at 22:00 Potassium Chloride (Klor-Con 20) 20 meq BID PO Last administered on 07/18/18at 08:13; Admin Dose 20 MEQ; Start 07/13/18 at 21:00 Atenolol (Tenormin) 25 mg BID PO Last administered on 07/17/18at 20:40; Admin Dose 25 MG; Start 07/17/18 at 21:00 Metoprolol Tartrate (Lopressor) 5 mg Q4H PRN IV HR>110 Hold SBP<100; Start 07/17/18 at 14:30 Dabigatran (PRADaxa) 75 mg BID PO Last administered on 07/18/18at 08:11; Admin Dose 75 MG; Start 07/18/18 at 09:00 CECE LOPEZ July 18, 2018 11:51
--- NOTE | 2018-07-18 13:21 | PN ---
Date/Time of Note Date/Time of Note DATE: 07/18/18 TIME: 13:21 Assessment/Plan VTE Prophylaxis Risk score (from Ns)>0 risk: 5 SCD applied (from [facility] [place]): No SCD contraindicated: low risk/ambulating Pharmacological prophylaxis: NA/contraindicated Pharm contraindication: low risk/ambulating Lines/Catheters IV [facility] Type (from [facility] Saline Lock Urinary Cath still in place: No Assessment/Plan Assessment/Plan Assessment/Plan 1. Shortness of breath likely secondary to congestive heart failure evident on chest x-ray and could have some underlying chronic obstructive pulmonary disease. Better this post thoracentesis now removal of 400 cc now with rt sided effsuion 2. Elevated troponin with EKG changes likely secondary to non-ST elevation myocardial infarction. Now with A. fib on Pradaxa 3. Elevated BNP secondary to congestive heart failure. 4. Hypertension, controlled. 5. Hyperlipidemia. 6. History of congestive heart failure and cardiomyopathy. 7. History of chronic atrial fibrillation. On Pradaxa 8. Hyperlipidemia. 9. History of lung cancer. 10. Chronic kidney disease. 11. History of pneumothorax status post chest tube placement. 12. Anemia 13. Left lung pleural effusion, increasing in size 14. former smoker a/p - CT chest left empyema? but has rt sided effusion s/p thoracentesis woth small pneumothorax repeat chest x-ray is stable -Resume diltiazem and metoprolol and parameters have been changed per cardiology for A. fib control - fu pul recs - cw pradaxa -c/w IV Lasix. 40 bid -DVT proph. -GI proph Protonix. -Cardiology consultation Conchis SMITH planning with the heart rate is better Result Diagram: 07/18/1815 07/18/18 0515 Results 24hrs Laboratory Tests Test 07/18/18 05:15 White Blood Count 9.2 Red Blood Count 4.62 L Hemoglobin 13.2 L Hematocrit 40.3 L Mean Corpuscular Volume 87.2 Mean Corpuscular Hemoglobin 28.6 L Mean Corpuscular Hemoglobin Concent 32.8 Red Cell Distribution Width 14.3 Platelet Count 292 Mean Platelet Volume 9.2 Immature Granulocytes % 0.400 Neutrophils % 66.7 Lymphocytes % 17.5 Monocytes % 14.1 H Eosinophils % 1.0 Basophils % 0.3 Nucleated Red Blood Cells % 0.0 Immature Granulocytes # 0.040 H Neutrophils # 6.1 Lymphocytes # 1.6 Monocytes # 1.3 H Eosinophils # 0.1 Basophils # 0.0 Nucleated Red Blood Cells # 0.0 Sodium Level 135 Potassium Level 4.4 Chloride Level 95 L Carbon Dioxide Level 32 H Anion Gap 8 Blood Urea Nitrogen 26 H Creatinine 1.33 H Est Glomerular Filtrat Rate mL/min Glucose Level 97 Calcium Level 9.4 Phosphorus Level 3.9 Magnesium Level 1.7 Subjective 24 Hr Interval Summary Free Text/Dictation Did not received diltiazem or metoprolol today because of low blood pressures Heart rate was high as 120s Exam/Review of Systems Exam Vitals Vital Signs Date Temp Pulse Resp B/P (MAP) Pulse Ox O2 O2 Flow FiO2 Time Delivery Rate 07/18/18 95 16 100 21 12:46 07/18/18 97.5 99/65 (76) Room Air 11:15 07/18/18 10.0 07:58 Intake and Output 07/17/18 07/17/18 07/18/18 1414:59 22:59 06:59 IntakeIntake Total 960 ml 350 ml OutputOutput Total 1500 ml 1000 ml BalanceBalance -1500 ml 960 ml -650 ml Exam onstitutional: alert, oriented Respiratory: clear to auscultation Cardiovascular: irrregular rate and rhythm, other (afib on monitor) Gastrointestinal: soft Lungs decreased breath sounds on the left base and rt Results Results 24hrs Laboratory Tests Test 07/18/18 05:15 White Blood Count 9.2 Red Blood Count 4.62 L Hemoglobin 13.2 L Hematocrit 40.3 L Mean Corpuscular Volume 87.2 Mean Corpuscular Hemoglobin 28.6 L Mean Corpuscular Hemoglobin Concent 32.8 Red Cell Distribution Width 14.3 Platelet Count 292 Mean Platelet Volume 9.2 Immature Granulocytes % 0.400 Neutrophils % 66.7 Lymphocytes % 17.5 Monocytes % 14.1 H Eosinophils % 1.0 Basophils % 0.3 Nucleated Red Blood Cells % 0.0 Immature Granulocytes # 0.040 H Neutrophils # 6.1 Lymphocytes # 1.6 Monocytes # 1.3 H Eosinophils # 0.1 Basophils # 0.0 Nucleated Red Blood Cells # 0.0 Sodium Level 135 Potassium Level 4.4 Chloride Level 95 L Carbon Dioxide Level 32 H Anion Gap 8 Blood Urea Nitrogen 26 H Creatinine 1.33 H Est Glomerular Filtrat Rate mL/min Glucose Level 97 Calcium Level 9.4 Phosphorus Level 3.9 Magnesium Level 1.7 Medications Medication Current Medications IV Flush (NS 3 ml) 3 ml PER PROTOCOL IV ; Start 07/11/18 at 17:30 Ondansetron HCl (Zofran Inj) 4 mg Q6H PRN IV NAUSEA/VOMITING; Start 07/11/18 at 17:30 Acetaminophen (Tylenol Tab) 650 mg Q6H PRN PO .PAIN 1-3 OR TEMP; Start 07/11/18 at 17:30 Docusate Sodium (Colace) 100 mg Q12H PRN PO .CONSTIPATION Last administered on 07/15/18 13:02; Admin Dose 100 MG; Start 07/11/18 at 17:30 Pantoprazole (Protonix Tab) 40 mg DAILY@06 PO Last administered on 07/18/18 05:59; Admin Dose 40 MG; Start 07/12/18 at 06:00 Furosemide (Lasix) 40 mg BID DIURETICS IV Last administered on 07/18/18 06:00; Admin Dose 40 MG; Start 07/11/18 at 18:00 Albuterol/ Ipratropium (Duoneb) 3 ml Q4H RESP THERAPY HHN Last administered on 07/18/18 12:46; Admin Dose 3 ML; Start 07/11/18 at 21:00 Diltiazem HCl (Cardizem) 30 mg Q8 PO Last administered on 07/17/18 22:28; A dmin Dose 30 MG; Start 07/11/18 at 22:00 Potassium Chloride (Klor-Con 20) 20 meq BID PO Last administered on 07/18/18 08:13; Admin Dose 20 MEQ; Start 07/13/18 at 21:00 Atenolol (Tenormin) 25 mg BID PO Last administered on 07/17/18 20:40; Admin Dose 25 MG; Start 07/17/18 at 21:00 Metoprolol Tartrate (Lopressor) 5 mg Q4H PRN IV HR>110 Hold SBP<100; Start 07/17/18 at 14:30 Dabigatran (PRADaxa) 75 mg BID PO Last administered on 07/18/18 08:11; Admin Dose 75 MG; Start 07/18/18 at 09:00 FIDEL GAVIN MD July 18, 2018 13:21
[2018-07-19] VITALS (10 sets, daily range): BP systolic 90–130; BP diastolic 50–66; PULSE 70–120; RESP 18–20
[2018-07-19] MEDS: ALBUTEROL/IPRATROPIUM (NEB) 3 ML AMP HHN SCH ×6 (00:58→20:02)
[2018-07-19] MEDS: PANTOPRAZOLE (EC) 40 MG TAB PO SCH (06:10)
[2018-07-19] MEDS: DILTIAZEM 30 MG TAB PO SCH ×3 (06:11→21:33)
[2018-07-19] MEDS: FUROSEMIDE 40 MG INJ IV SCH ×2 (06:12→17:03)
[2018-07-19] MEDS: DOCUSATE SODIUM 100 MG CAP PO PRN (09:20)
[2018-07-19] MEDS: POTASSIUM CHLORIDE (SR) 20 MEQ TAB PO SCH ×2 (09:20→21:36)
[2018-07-19] MEDS: DABIGATRAN 75 MG CAP PO SCH ×2 (09:20→21:36)
[2018-07-19] MEDS: ATENOLOL 25 MG TAB PO SCH ×2 (09:21→21:00)
--- NOTE | 2018-07-19 12:03 | CONS ---
Assessment/Plan Assessment/Plan Hospital Course (Demo Recall) IMPRESSION: 1. Congestive heart failure exacerbation by most recent echo, diastolic, acute on chronic. 2. Atrial fibrillation-uncontrolled but had BB/CCB held today 3. Positive troponin in the setting of renal failure, respiratory distress, likely type 2 demand infarct. 4. Chronic obstructive pulmonary disease. 5. Hypertension. 6. Hyponatremia. 7. Elevated BNP. 8. Leukocytosis. 9. Recc: -Tele -continue diltiazem/BB with currently well controlled HR -Contiue Pradaxa -Continue lasix diuresis and change to PO -ok for d/c planning with outpatient f/u Consultation Date/Type/Reason Admit Date/Time July 11, 2018 at 11:40 Initial Consult Date 07/16/18 Type of Consult Cardiology Reason for Consultation atrial fibrillation Requesting Provider: FIDEL GAVIN MD Date/Time of Note DATE: 07/19/18 TIME: 11:57 Exam/Review of Systems Vital Signs Vitals Vital Signs Date Temp Pulse Resp B/P (MAP) Pulse Ox O2 O2 Flow FiO2 Time Delivery Rate 07/19/18 97.7 83 18 130/60 97 Room Air 11:05 (83) 07/19/18 21 08:31 07/18/18 10.0 07:58 Intake and Output 07/18/18 07/18/18 07/19/18 1515:00 23:00 07:00 IntakeIntake Total 950 ml 500 ml OutputOutput Total 600 ml 600 ml BalanceBalance 350 ml -100 ml Exam Exam Review of Systems: CONSTITUTIONAL: No fevers, chills. PULMONARY: No sob CARDIOVASCULAR: No chest pain/palpitations GASTROINTESTINAL: No nausea/vomiting. GENITOURINARY: No hematuria/dysuria. MUSCULOSKELETAL: No myagias/arthalgias. PSYCHIATRIC: The patient denies depression. NEUROLOGIC: No weakness Constitutional: alert Psych: no complaints Head: normocephalic ENMT: mucosa pink and moist Neck: supple, jvd (9 cm water) Respiratory: diminished breath sounds Cardiovascular: regular rate and rhythm Gastrointestinal: soft, non-tender Musculoskeletal: muscle tone (normal) Extremities: edema (none) 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: other (No focal deficits) Labs Result Diagram: 07/18/1815 07/18/18514 Medications Medications Current Medications IV Flush (NS 3 ml) 3 ml PER PROTOCOL IV ; Start 5/9/19 at 17:30 Ondansetron HCl (Zofran Inj) 4 mg Q6H PRN IV NAUSEA/VOMITING; Start 07/11/18 at 17:30 Acetaminophen (Tylenol Tab) 650 mg Q6H PRN PO .PAIN 1-3 OR TEMP; Start 07/11/18 at 17:30 Docusate Sodium (Colace) 100 mg Q12H PRN PO .CONSTIPATION Last administered on 07/19/18 09:20; Admin Dose 100 MG; Start 07/11/18 at 17:30 Pantoprazole (Protonix Tab) 40 mg DAILY@06 PO Last administered on 07/19/18 06:10; Admin Dose 40 MG; Start 07/12/18 at 06:00 Furosemide (Lasix) 40 mg BID DIURETICS IV Last administered on 07/19/18 06:12; Admin Dose 40 MG; Start 07/11/18 at 18:00 Albuterol/ Ipratropium (Duoneb) 3 ml Q4H RESP THERAPY HHN Last administered on 07/19/18 08:29; Admin Dose 3 ML; Start 07/11/18 at 21:00 Diltiazem HCl (Cardizem) 30 mg Q8 PO Last administered on 07/19/18 06:11; Admin Dose 30 MG; Start 07/11/18 at 22:00 Potassium Chloride (Klor-Con 20) 20 meq BID PO Last administered on 07/19/18 09:20; Admin Dose 20 MEQ; Start 07/13/18 at 21:00 Atenolol (Tenormin) 25 mg BID PO Last administered on 07/19/18 09:21; Admin Dose 25 MG; Start 07/17/18 at 21:00 Metoprolol Tartrate (Lopressor) 5 mg Q4H PRN IV HR>110 Hold SBP<100; Start 07/17/18 at 14:30 Dabigatran (PRADaxa) 75 mg BID PO Last administered on 07/19/18 09:20; Admin Dose 75 MG; Start 07/18/18 at 09:00 CECE LOPEZ July 19, 2018 12:03
[2018-07-19] MEDS ORDERED: ATEN-138 PO (14:08)
[2018-07-19] MEDS ORDERED: IPRA3AMP29 HHN (14:08)
[2018-07-19] MEDS ORDERED: DILT30TA30 PO (14:08)
--- NOTE | 2018-07-19 14:09 | PN ---
Date/Time of Note Date/Time of Note DATE: 07/19/18 TIME: 14:09 Assessment/Plan VTE Prophylaxis Risk score (from Ns)>0 risk: 7 [place] [facility] [place] Pharmacological prophylaxis: other (pradaxa) Pharm contraindication: low risk/ambulating Lines/Catheters IV C[facility] Type (from [facility] Saline Lock Urinary Cath still in place: No Assessment/Plan Hospital Course 1. Shortness of breath likely secondary to congestive heart failure evident on chest x-ray and could have some underlying chronic obstructive pulmonary disease. Better 2. Elevated troponin with EKG changes likely secondary to non-ST elevation myocardial infarction. 3. Elevated BNP secondary to congestive heart failure. 4. Hypertension, controlled. 5. Hyperlipidemia. 6. History of congestive heart failure and cardiomyopathy. 7. History of chronic atrial fibrillation. 8. Hyperlipidemia. 9. History of lung cancer. 10. Chronic kidney disease. 11. History of pneumothorax status post chest tube placement. 12. Anemia 13. Left lung pleural effusion, increasing in size 14. former smoker Assessment/Plan PT eval . pt discharged -called pt pharmacy reviewed med. Result Diagram: 07/18/18 0515 07/18/18 0515 Subjective 24 Hr Interval Summary Constitutional: no complaints, improved Exam/Review of Systems Exam Vitals Vital Signs Date Temp Pulse Resp B/P (MAP) Pulse Ox O2 O2 Flow FiO2 Time Delivery Rate 07/19/18 80 13:13 07/19/18 20 21 12:57 07/19/18 Room Air 12:29 07/19/18 97.7 130/60 97 11:05 (83) 07/18/18 10.0 07:58 Intake and Output 07/18/18 07/18/18 07/19/18 1414:59 22:59 06:59 IntakeIntake Total 950 ml 500 ml OutputOutput Total 600 ml 600 ml BalanceBalance 350 ml -100 ml Constitutional: alert, oriented ENMT: nl external ears & nose Neck: supple Respiratory: diminished breath sounds Cardiovascular: regular rate and rhythm Gastrointestinal: soft Musculoskeletal: swelling; No nl extremities to inspection, No nl gait and stance, No joint tenderness, No muscle tone, No muscle weakness, No range of motion, No spine non-tender, No other Medications Medication Current Medications IV Flush (NS 3 ml) 3 ml PER PROTOCOL IV ; Start 07/11/18 at 17:30 Ondansetron HCl (Zofran Inj) 4 mg Q6H PRN IV NAUSEA/VOMITING; Start 07/11/18 at 17:30 Acetaminophen (Tylenol Tab) 650 mg Q6H PRN PO .PAIN 1-3 OR TEMP; Start 07/11/18 at 17:30 Docusate Sodium (Colace) 100 mg Q12H PRN PO .CONSTIPATION Last administered on 07/19/18 09:20; Admin Dose 100 MG; Start 07/11/18 at 17:30 Pantoprazole (Protonix Tab) 40 mg DAILY@06 PO Last administered on 07/19/18 06:10; Admin Dose 40 MG; Start 07/12/18 at 06:00 Furosemide (Lasix) 40 mg BID DIURETICS IV Last administered on 07/19/18 06:12; Admin Dose 40 MG; Start 07/11/18 at 18:00 Albuterol/ Ipratropium (Duoneb) 3 ml Q4H RESP THERAPY HHN Last administered on 07/19/18 12:54; Admin Dose 3 ML; Start 07/11/18 at 21:00 Diltiazem HCl (Cardizem) 30 mg Q8 PO Last administered on 07/19/18 06:11; Admin Dose 30 MG; Start 07/11/18 at 22:00 Potassium Chloride (Klor-Con 20) 20 meq BID PO Last administered on 07/19/18 09:20; Admin Dose 20 MEQ; Start 07/13/18 at 21:00 Atenolol (Tenormin) 25 mg BID PO Last administered on 07/19/18 09:21; Admin Dose 25 MG; Start 07/17/18 at 21:00 Metoprolol Tartrate (Lopressor) 5 mg Q4H PRN IV HR>110 Hold SBP<100; Start 07/17/18 at 14:30 Dabigatran (PRADaxa) 75 mg BID PO Last administered on 07/19/18 09:20; Admin Dose 75 MG; Start 07/18/18 at 09:00 JASPER SAHU July 19, 2018 14:09
--- NOTE | 2018-07-19 14:09 | DS ---
Date/Time of Note Date/Time of Note DATE: 07/19/18 TIME: 14:09 Discharge Summary Admission/Discharge Info Admit Date/Time July 11, 2018 at 11:40 Discharge Date/Time Consults Dr Guajadro pulmonology, dr Balderrama, cardiology Procedures echocardiogram Hospital Course This is an 78-year-old male with a past medical history of hypertension, hyperlipidemia, history of AFib, history of left-sided pleural effusion, status post thoracentesis, COPD, CKD, left lower lobe pneumonia, cardiomyopathy, EF of 35% to 40%, history of carotid endarterectomy, who was recently admitted in 02/2018 for chest pain, shortness of breath. At that time, the patient had a complicated course and also in ICU, also had a thoracentesis, had developed pneumothorax. The patient was intubated and had extubation, also had right- sided pneumothorax, large left effusion. [facility]. According to the patient, the patient had been living at home. He came to the emergency department complaining of shortness of breath for the past few days. The patient is also having increased dyspnea and nonproductive cough. Denied any chest pain or chest tightness. On arrival to ED, vital signs show temperature 98.5, heart rate 76, respirations 22, blood pressure initial 189/84. The patient had a white count of 12.1, BUN of 18, creatinine 1.29, bicarbonate of 33. EKG showed AFib, irregularly irregular rhythm, T-wave inversions in inferolateral leads. Chest x-ray shows mild to mo derate pulmonary vascular congestion, moderate left pleural effusion, small to moderate right pleural effusion. The patient was given IV Lasix, Zofran, Tylenol and was admitted for further management. The patient was also given aspirin. PAST MEDICAL HISTORY: 1. Hypertension. 2. Hyperlipidemia. 3. History of COPD. 4. History of CHF. 5. History of lung cancer status post radiation. 6. History of left-sided effusion, status post thoracentesis. 7. AFib. 8. Coronary artery disease. 9. Peripheral vascular disease. 10. CKD. ALLERGIES: NO KNOWN DRUG ALLERGIES. FAMILY HISTORY: Negative. DS: 1. Shortness of breath likely secondary to congestive heart failure evident on chest x-ray and could have some underlying chronic obstructive pulmonary disease . Better 2. Elevated troponin with EKG changes likely secondary to non-ST elevation myocardial infarction. 3. Elevated BNP secondary to congestive heart failure. 4. Hypertension, controlled. 5. Hyperlipidemia. 6. History of congestive heart failure and cardiomyopathy. 7. History of chronic atrial fibrillation. 8. Hyperlipidemia. 9. History of lung cancer. 10. Chronic kidney disease. 11. History of pneumothorax status post chest tube placement. 12. Anemia 13. Left lung pleural effusion, s/p thoracentesis. right lung pleural effusion, s/p thoracentesis. 14. former smoker During hospitalization pt was on telemetry service. We found on chest US bilateral effusions. Dr Guajardo, pulmonology was called. He offered pt continue with supplemental O2 as needed. C/w oral diuretics. He reported a need for aspiration precautions. CT chest showed left empyema? but pt. has right sided effusion, he had successful thoracentesis. We followed pulmonary recommendations of dr Guajardo. For procedures Pradaxa was on hold and then it was restarted due to pt chronic A.fib. We also followed cardiology recommendations of dr Hall/Conchis to titrate LAxsix to 40 bid. Pt was c/w Cardizem/metoprolol. We had pt on strict I's and O's, checked creatinine daily until to grade diuresis closely. cardiology assessed for patient's ejection fraction with a 2D echo. Cardiology checked patient's cardiac enzymes, they recommended to to check a digoxin level to assure the patient has no elevated digoxin in the setting of renal failure. Pt demonstrated clinical improvement after left side thoracentesis. He was off from supplemental oxygen prior to dc. Initially we offered pt to be discharged to SNF, but pt had PT evaluation done and PT reported pt independence with ADL, so pt was agreed to be discharged home. Pt was recommended to repeat chest x-ray in 2 to 3 weeks with outpatient pulmonary follow-up. Home Meds Active Scripts Diltiazem Hcl* (Cardizem*) 30 Mg Tablet, 30 MG PO Q8 for 30 Days, TAB Prov:MEZENTSEVA,JASPER 07/19/18 Atenolol (Tenormin) 25 Mg Tab, 25 MG PO BID for 30 Days, TAB Prov:MEZENTSEVAJASPER 07/19/18 Ipratropium-Albuterol (Ipratropium-Albuterol) 0.5-3 Mg/3 Ml Ampul.neb, 3 ML HHN Q4H RESP THERAPY for 30 Days Prov:JASPER SAHU 07/19/18 Reported Medications Potassium Chloride* (Klor-Con*) 20 Meq Tabsr, 40 MEQ PO BID, TAB.SA 07/11/18 Magnesium Hydroxide* (Milk Of Magnesia*) 400 Mg/5 Ml Oral.susp, 30 ML PO DAILY PRN for CONSTIPATION, ML 07/11/18 Pantoprazole* (Pantoprazole*) 40 Mg Tablet.dr, 40 MG PO DAILY, TAB 07/11/18 Dabigatran Etexilate Mesylate* (Pradaxa*) 75 Mg Cap, 75 MG PO BID, CAP 07/11/18 Xfokzrpgyap-L-Vlulpbmqlx Hb* (Guaifenesin* DM Syrup) 120 Ml Syrup, 10 ML PO Q6 PRN for COUGH, ML 07/11/18 Digoxin* (Lanoxin*) 0.125 Mg Tablet, 0.125 MG PO DAILY, TAB 02/07/18 Furosemide* (Lasix*) 40 Mg Tablet, 40 MG PO DAILY, TAB 01/31/16 Discontinued Reported Medications Amoxicillin/Potassium Clav (Amox-Clav 875-125 mg Tablet) 875-125 mg Tab, 1 TAB PO BID, #20 TAB 07/11/18 Promethazine HCl/Codeine (Prometh-Codein 6.25-10 mg/5 ml) 5 Ml Syrup, 10 ML PO Q6 PRN for COUGH 07/11/18 Albuterol Sulfate* (Proair HFA*) 8.5 Gm Hfa.aer.ad, 2 PUFF INH Q4H PRN for WHEEZING AND SOB, #1 INHALER 07/11/18 Discontinued Scripts Ipratropium-Albuterol (Ipratropium-Albuterol) 0.5-3 Mg/3 Ml Ampul.neb, 3 ML HHN Q4H RESP THERAPY for 28 Days Prov:PAUL DEAN MD 08/08/16 Follow-up Plan PCP 1 week Primary Care Provider Paul Dean MD Time spent on discharge: < 30 minutes JASPER SAHU July 19, 2018 14:09
--- NOTE | 2018-07-19 14:13 | CONS ---
Consult Date/Type/Reason Admit Date/Time July 11, 2018 at 11:40 Initial Consult Date Type of Consult Pulmonary Requesting Provider: FIDEL GAVIN MD Date/Time of Note DATE: 07/19/18 TIME: 14:12 Subjective No significant overnight events. Objective Vital Signs Date Temp Pulse Resp B/P (MAP) Pulse Ox O2 O2 Flow FiO2 Time Delivery Rate 07/19/18 80 13:13 07/19/18 20 21 12:57 07/19/18 Room Air 12:29 07/19/18 97.7 130/60 97 11:05 (83) 07/18/18 10.0 07:58 Intake and Output 07/18/18 07/18/18 07/19/18 1515:00 23:00 07:00 IntakeIntake Total 950 ml 500 ml OutputOutput Total 600 ml 600 ml BalanceBalance 350 ml -100 ml Exam GENERAL: Elderly gentleman on nasal cannula oxygen. VITAL SIGNS: per chart NECK: Supple. No JVD or lymphadenopathy. CARDIAC EXAM: S1, S2. No added sounds or murmurs. CHEST: Diminished air entry bilaterally ABDOMEN: Soft, nontender. No guarding or rebound. EXTREMITIES: No cyanosis, clubbing edema +1 NEUROLOGIC: Generalized weakness Vent Setting Fraction of Inspired Oxygen pe: 21 Results/Medications Result Diagram: 07/18/1815 07/18/1815 Medications Current Medications IV Flush (NS 3 ml) 3 ml PER PROTOCOL IV ; Start 07/11/18 at 17:30 Ondansetron HCl (Zofran Inj) 4 mg Q6H PRN IV NAUSEA/VOMITING; Start 07/11/18 at 17:30 Acetaminophen (Tylenol Tab) 650 mg Q6H PRN PO .PAIN 1-3 OR TEMP; Start 07/11/18 at 17:30 Docusate Sodium (Colace) 100 mg Q12H PRN PO .CONSTIPATION Last administered on 07/19/18at 09:20; Admin Dose 100 MG; Start 07/11/18 at 17:30 Pantoprazole (Protonix Tab) 40 mg DAILY@06 PO Last administered on 07/19/18at 06:10; Admin Dose 40 MG; Start 07/12/18 at 06:00 Furosemide (Lasix) 40 mg BID DIURETICS IV Last administered on 07/19/18at 06:12; Admin Dose 40 MG; Start 07/11/18 at 18:00 Albuterol/ Ipratropium (Duoneb) 3 ml Q4H RESP THERAPY HHN Last administered on 07/19/18at 12:54; Admin Dose 3 ML; Start 07/11/18 at 21:00 Diltiazem HCl (Cardizem) 30 mg Q8 PO Last administered on 07/19/18at 06:11; Admin Dose 30 MG; Start 07/11/18 at 22:00 Potassium Chloride (Klor-Con 20) 20 meq BID PO Last administered on 07/19/18at 09:20; Admin Dose 20 MEQ; Start 07/13/18 at 21:00 Atenolol (Tenormin) 25 mg BID PO Last administered on 07/19/18at 09:21; Admin Dose 25 MG; Start 07/17/18 at 21:00 Metoprolol Tartrate (Lopressor) 5 mg Q4H PRN IV HR>110 Hold SBP<100; Start 07/17/18 at 14:30 Dabigatran (PRADaxa) 75 mg BID PO Last administered on 07/19/18at 09:20; Admin Dose 75 MG; Start 07/18/18 at 09:00 Assessment/Plan Hospital Course (Demo Recall) IMPRESSION AND PLAN: 1. Bilateral effusions, possibly loculated. Status post thoracentesis left lung history of left lung cancer. Status post thoracentesis right pleural effusion with complete resolution. 2. Underlying chronic obstructive pulmonary disease. 3. History of recurrent thoracentesis in the past. 4. Congestive cardiac failure with decreased ejection fraction. 5. History of lung cancer status post radiation treatment. PLAN: 1. Outpatient pulmonary follow-up 2. Continue supplemental O2 as needed. 3. Oral diuretics. 4. Aspiration precautions. 5. DVT and GI prophylaxis DC planning. AISHWARYA PICKARD MD, [facility] July 19, 2018 14:13
--- NOTE | 2018-07-19 17:42 | PDOCDIS ---
Discharge Instructions DIAGNOSIS Discharge Diagnosis CHF CONDITION [id number] Patient Condition: [id number] Stable HOME CARE INSTRUCTIONS: [id number] Diet Instructions: [id number] y Rest between Activity Avoid heavy lifting FOLLOW UP/APPOINTMENTS Follow-up Plan PCP 1 week, dr Hall 2 weeks JASPER SAHU July 19, 2018 17:42
[2018-07-20] VITALS: BP 94/61; PULSE 74; PULSE 83; RESP 17
[2018-07-20] MEDS: ALBUTEROL/IPRATROPIUM (NEB) 3 ML AMP HHN SCH ×3 (00:09→09:11)
[2018-07-20 04:00] VITALS: BP 107/53; PULSE 82; PULSE 90; RESP 19
[2018-07-20] MEDS: PANTOPRAZOLE (EC) 40 MG TAB PO SCH (05:15)
[2018-07-20] MEDS: DILTIAZEM 30 MG TAB PO SCH (05:15)
[2018-07-20] MEDS: FUROSEMIDE 40 MG INJ IV SCH (05:15)
[2018-07-20 08:01] VITALS: PULSE 102
[2018-07-20] MEDS: POTASSIUM CHLORIDE (SR) 20 MEQ TAB PO SCH (08:49)
[2018-07-20 08:55] VITALS: BP 111/53; PULSE 93; RESP 17
[2018-07-20] MEDS: ATENOLOL 25 MG TAB PO SCH (08:57)
[2018-07-20] MEDS: DABIGATRAN 75 MG CAP PO SCH (08:57)
[2018-07-20 11:26] VITALS: BP 91/62; PULSE 80; RESP 18
--- NOTE | 2018-07-20 11:28 | CONS ---
Consult Date/Type/Reason Admit Date/Time July 11, 2018 at 11:40 Initial Consult Date Type of Consult Pulmonary Requesting Provider: FIDEL GAVIN MD Date/Time of Note DATE: 07/20/18 TIME: 11:27 Subjective Patient appears comfortable no respiratory distress Objective Vital Signs Date Temp Pulse Resp B/P (MAP) Pulse Ox O2 O2 Flow FiO2 Time Delivery Rate 07/20/18 98 21 09:15 07/20/18 88 20 09:14 07/20/18 97.7 111/53 08:55 (72) 07/19/18 Room Air 15:59 07/18/18 10.0 07:58 Intake and Output 07/19/18 07/19/18 07/20/18 1515:00 23:00 07:00 IntakeIntake Total 400 ml 960 ml 350 ml OutputOutput Total 300 ml 700 ml 700 ml BalanceBalance 100 ml 260 ml -350 ml Exam GENERAL: Elderly gentleman on nasal cannula oxygen. VITAL SIGNS: per chart NECK: Supple. No JVD or lymphadenopathy. CARDIAC EXAM: S1, S2. No added sounds or murmurs. CHEST: Diminished air entry bilaterally ABDOMEN: Soft, nontender. No guarding or rebound. EXTREMITIES: No cyanosis, clubbing edema +1 NEUROLOGIC: Generalized weakness Vent Setting Fraction of Inspired Oxygen pe: 21 Results/Medications Result Diagram: 07/18/1851407/18/1815 Medications Current Medications IV Flush (NS 3 ml) 3 ml PER PROTOCOL IV ; Start 07/11/18 at 17:30 Ondansetron HCl (Zofran Inj) 4 mg Q6H PRN IV NAUSEA/VOMITING; Start 07/11/18 at 17:30 Acetaminophen (Tylenol Tab) 650 mg Q6H PRN PO .PAIN 1-3 OR TEMP; Start 07/11/18 at 17:30 Docusate Sodium (Colace) 100 mg Q12H PRN PO .CONSTIPATION Last administered on 07/19/18at 09:20; Admin Dose 100 MG; Start 07/11/18 at 17:30 Pantoprazole (Protonix Tab) 40 mg DAILY@06 PO Last administered on 07/20/18at 05:15; Admin Dose 40 MG; Start 07/12/18 at 06:00 Furosemide (Lasix) 40 mg BID DIURETICS IV Last administered on 07/20/18at 05:15; Admin Dose 40 MG; Start 07/11/18 at 18:00 Albuterol/ Ipratropium (Duoneb) 3 ml Q4H RESP THERAPY HHN Last administered on 07/20/18 09:11; Admin Dose 3 ML; Start 07/11/18 at 21:00 Diltiazem HCl (Cardizem) 30 mg Q8 PO Last administered on 07/19/18 14:30; Admin Dose 30 MG; Start 07/11/18 at 22:00 Potassium Chloride (Klor-Con 20) 20 meq BID PO Last administered on 07/20/18 08:49; Admin Dose 20 MEQ; Start 07/13/18 at 21:00 Atenolol (Tenormin) 25 mg BID PO Last administered on 07/20/18 08:57; Admin Do se 25 MG; Start 07/17/18 at 21:00 Metoprolol Tartrate (Lopressor) 5 mg Q4H PRN IV HR>110 Hold SBP<100; Start 07/17/18 at 14:30 Dabigatran (PRADaxa) 75 mg BID PO Last administered on 07/20/18 08:57; Admin Dose 75 MG; Start 07/18/18 at 09:00 Assessment/Plan Hospital Course (Demo Recall) IMPRESSION AND PLAN: 1. Bilateral effusions, possibly loculated. Status post thoracentesis left lung history of left lung cancer. Status post thoracentesis right pleural effus ion with complete resolution. 2. Underlying chronic obstructive pulmonary disease. 3. History of recurrent thoracentesis in the past. 4. Congestive cardiac failure with decreased ejection fraction. 5. History of lung cancer status post radiation treatment. PLAN: 1. Outpatient pulmonary follow-up 2. Continue supplemental O2 as needed. 3. Oral diuretics. 4. Aspiration precautions. 5. DVT and GI prophylaxis DC planning. Repeat chest x-ray 2 to 3 weeks. AISHWARYA PICKARD MD, [facility] July 20, 2018 11:28
[2018-07-20 12:01] VITALS: PULSE 98
--- NOTE | 2018-07-20 12:48 | CONS ---
Consult Date/Type/Reason Admit Date/Time July 11, 2018 at 11:40 Initial Consult Date Requesting Provider: FIDEL GAVIN MD Date/Time of Note DATE: 07/20/18 TIME: 12:46 Subjective Pt doing well - in good fluid status - dispo planned - rate controlled. ROS: No fever, no chills, no nausea, no vomiting, no diarrhea/constipation No recent weight changes No chest pain, no PND, no orthopnea - mild SOB. No dizziness, blurred vision No thirst, no heat or cold intolerance Objective Vitals Vital Signs Date Temp Pulse Resp B/P (MAP) Pulse Ox O2 O2 Flow FiO2 Time Delivery Rate 07/20/18 97.4 80 18 91/62 (72) 99 Room Air 11:26 07/20/18 21 09:15 07/18/18 10.0 07:58 Intake and Output 07/19/18 07/19/18 07/20/18 1515:00 23:00 07:00 IntakeIntake Total 400 ml 960 ml 350 ml OutputOutput Total 300 ml 700 ml 700 ml BalanceBalance 100 ml 260 ml -350 ml Exam General: WN/WD/NAD, AOx 3 HEENT: Unicetric/atraumatic/EOMI ( follows commands) NECK: JVD elevated, no thyromegaly Lymph: no lymphadenopathy HEART: irregular with no S3, II/ systolic murmur at apex LUNGS: Coarse sounds ABD: soft, NT, ND, +BS : Intact Neuro: non focal SKIN: chronic changes EXT: trace edema Results/Medications Result Diagram: 07/18/1851407/18/18514 Home Meds Active Scripts Diltiazem Hcl* (Cardizem*) 30 Mg Tablet, 30 MG PO Q8 for 30 Days, TAB Prov:JASPER SAHU 07/19/18 Atenolol (Tenormin) 25 Mg Tab, 25 MG PO BID for 30 Days, TAB Prov:JASPER SAHU 07/19/18 Ipratropium-Albuterol (Ipratropium-Albuterol) 0.5-3 Mg/3 Ml Ampul.neb, 3 ML HHN Q4H RESP THERAPY for 30 Days Prov:JASPER SAHU 07/19/18 Reported Medications Potassium Chloride* (Klor-Con*) 20 Meq Tabsr, 40 MEQ PO BID, TAB.SA 07/11/18 Magnesium Hydroxide* (Milk Of Magnesia*) 400 Mg/5 Ml Oral.susp, 30 ML PO DAILY PRN for CONSTIPATION, ML 07/11/18 Pantoprazole* (Pantoprazole*) 40 Mg Tablet.dr, 40 MG PO DAILY, TAB 07/11/18 Dabigatran Etexilate Mesylate* (Pradaxa*) 75 Mg Cap, 75 MG PO BID, CAP 07/11/18 Adaxogigple-T-Pishfklrre Hb* (Guaifenesin* DM Syrup) 120 Ml Syrup, 10 ML PO Q6 PRN for COUGH, ML 07/11/18 Digoxin* (Lanoxin*) 0.125 Mg Tablet, 0.125 MG PO DAILY, TAB 02/07/18 Furosemide* (Lasix*) 40 Mg Tablet, 40 MG PO DAILY, TAB 01/31/16 Discontinued Reported Medications Amoxicillin/Potassium Clav (Amox-Clav 875-125 mg Tablet) 875-125 mg Tab, 1 TAB PO BID, #20 TAB 07/11/18 Promethazine HCl/Codeine (Prometh-Codein 6.25-10 mg/5 ml) 5 Ml Syrup, 10 ML PO Q6 PRN for COUGH 07/11/18 Albuterol Sulfate* (Proair HFA*) 8.5 Gm Hfa.aer.ad, 2 PUFF INH Q4H PRN for WHEEZING AND SOB, #1 INHALER 07/11/18 Discontinued Scripts Ipratropium-Albuterol (Ipratropium-Albuterol) 0.5-3 Mg/3 Ml Ampul.neb, 3 ML HHN Q4H RESP THERAPY for 28 Days Prov:KARLEY DEAN MD 08/08/16 Medications Current Medications IV Flush (NS 3 ml) 3 ml PER PROTOCOL IV ; Start 07/11/18 at 17:30 Ondansetron HCl (Zofran Inj) 4 mg Q6H PRN IV NAUSEA/VOMITING; Start 07/11/18 at 17:30 Acetaminophen (Tylenol Tab) 650 mg Q6H PRN PO .PAIN 1-3 OR TEMP; Start 07/11/18 at 17:30 Docusate Sodium (Colace) 100 mg Q12H PRN PO .CONSTIPATION Last administered on 07/19/18 09:20; Admin Dose 100 MG; Start 07/11/18 at 17:30 Pantoprazole (Protonix Tab) 40 mg DAILY@06 PO Last administered on 07/20/18 05:15; Admin Dose 40 MG; Start 07/12/18 at 06:00 Furosemide (Lasix) 40 mg BID DIURETICS IV Last administered on 07/20/18 05:15; Admin Dose 40 MG; Start 07/11/18 at 18:00 Albuterol/ Ipratropium (Duoneb) 3 ml Q4H RESP THERAPY HHN Last administered on 07/20/18 09:11; Admin Dose 3 ML; Start 07/11/18 at 21:00 Diltiazem HCl (Cardizem) 30 mg Q8 PO Last administered on 07/19/18 14:30; Admin Dose 30 MG; Start 07/11/18 at 22:00 Potassium Chloride (Klor-Con 20) 20 meq BID PO Last administered on 07/20/18 08:49; Admin Dose 20 MEQ; Start 07/13/18 at 21:00 Atenolol (Tenormin) 25 mg BID PO Last administered on 07/20/18 08:57; Admin Dose 25 MG; Start 07/17/18 at 21:00 Metoprolol Tartrate (Lopressor) 5 mg Q4H PRN IV HR>110 Hold SBP<100; Start 07/17/18 at 14:30 Dabigatran (PRADaxa) 75 mg BID PO Last administered on 07/20/18 08:57; Admin Dose 75 MG; Start 07/18/18 at 09:00 Assessment/Plan Hospital Course (Demo Recall) 1. Congestive heart failure exacerbation by most recent echo, diastolic, acute on chronic - better now - responded to diuresis. Much better now - will monitor. Improved with RX. Better now. 2. Atrial fibrillation, rate controlled - con't BB now. If arrhythmia resumes, will consider further supression - but for now, Mg2+ replacement. Stable - con't BB as tolerated by BP. Rate controlled. 3. Positive troponin in the setting of renal failure, respiratory distress, likely type 2 demand infarct - no CP now, will monitor clinically. TREATED. No intervention currently planned. 4. Chronic obstructive pulmonary disease - on meds, no wheezing by exam today. Con't to follow. Improved wheezing. 5. Hypertension - better RX. BP in good range now. WEll Rx. 6. Hyponatremia. 7. Elevated BNP. 8. Leukocytosis - rx per primary team. On anti-Bx. Improved with therapy. 9. NSVT - short run - con;t current RX - BB resumed. EMILY SANTAMARIA MD July 20, 2018 12:48
== END 2018-07-20 13:34 | disposition home or self-care (01) | DRG 280 ==
LOC: E/R 08:54 → 6WM 11:40
PROVIDERS: ADMIT Internal Medicine; ATTEND Internal Medicine
PROC: 0W9B3ZZ Drainage of Left Pleural Cavity, Percutaneous Approach (ICD-10-PCS; principal; 2018-07-14)
PROC: 0W993ZZ Drainage of Right Pleural Cavity, Percutaneous Approach (ICD-10-PCS; 2018-07-17)
DX: I13.0 Hypertensive heart and chronic kidney disease with heart failure and stage 1 through stage 4 chronic kidney disease, or unspecified chronic kidney disease (principal); I21.A1 Myocardial infarction type 2; I50.33 Acute on chronic diastolic (congestive) heart failure; E87.1 Hypo-osmolality and hyponatremia; J90 Pleural effusion, not elsewhere classified; J93.9 Pneumothorax, unspecified; D63.1 Anemia in chronic kidney disease; D72.829 Elevated white blood cell count, unspecified; E78.5 Hyperlipidemia, unspecified; I42.9 Cardiomyopathy, unspecified; I73.9 Peripheral vascular disease, unspecified; I25.10 Atherosclerotic heart disease of native coronary artery without angina pectoris; I48.2 Chronic atrial fibrillation; J44.9 Chronic obstructive pulmonary disease, unspecified; N18.9 Chronic kidney disease, unspecified; Z85.118 Personal history of other malignant neoplasm of bronchus and lung; Z92.3 Personal history of irradiation; Z87.891 Personal history of nicotine dependence; Z79.02 Long term (current) use of antithrombotics/antiplatelets
CPT/HCPCS: 36415; 36600; 71045; 71046; 71250; 76942; 80048; 80053; 80162; 81001; 81003; 82550; 82553; 82803; 82945; 82962; 83036; 83615; 83735; 83880; 84100; 84157; 84443; 84484; 85025; 85610; 85730; 87070; 87102; 87116; 88104; 88107; 88305; 89051; 93005; 93306; 94640; 94664; 97162; J0696; J1940; J2930; J3475

== ENCOUNTER 2018-08-13 09:11 | Inpatient (IN) | payer BC ==
[~2018-08-13] VITALS: Ht 177.8 cm; Wt 70.0 kg
[~2018-08-13 09:11] MED LIST changes: -APIX5TAB PO; -ASPI-831 PO; +ATEN-138 PO; -ATEN50TA PO; -BUPR150T18 PO; -CILO50TA PO; +DABI75CA2 PO; +DILT30TA30 PO; -DILT60TA29 PO; +GUAI120S25 PO; +MAGN400O19 PO; -POLY17PO28 PO; +POTA-57 PO
[2018-08-13] MEDS ORDERED: NITROGLYCERIN 2% 1 GM OINT PKT TD STA (09:35)
[2018-08-13] MEDS ORDERED: ASPIRIN 81 MG TAB PO STA (09:35)
[2018-08-13] MEDS ORDERED: FUROSEMIDE 40 MG INJ IV STA (09:35)
[2018-08-13] MEDS ORDERED: NITROGLYCERIN (SL) 0.4 MG TAB SL PRN (10:00)
[2018-08-13] MEDS ORDERED: CEFEPIME 1GM/50 ML (PMX) 50 ML IVPB STA (10:38)
[2018-08-13] MEDS ORDERED: VANCOMYCIN 1 GM (PMX) 250 ML IVPB STA (10:38)
[2018-08-13] MEDS ORDERED: ONDANSETRON 4 MG INJ IV PRN ×2 (11:00→17:00)
[2018-08-13] MEDS ORDERED: ACETAMINOPHEN 325 MG TAB PO PRN ×2 (11:00→17:00)
--- NOTE | 2018-08-13 11:13 | ERD ---
ER Documentation Chief Complaint Chief Complaint SOB, WEAKNESS HPI Patient is a 78-year-old male with hypertension who presents for shortness of breath. He is felt weak and had shortness of breath for the past 5 weeks. It was worse today. He has no chest pain. He has edema. He denies fevers. Please note the history and physical exam is limited secondary to patient's recall of his medical history. Upon review of old medical record the patient has multiple visits with admissions. ROS All systems reviewed and are negative except as per history of present illness. Medications Home Meds Active Scripts Diltiazem Hcl* (Cardizem*) 30 Mg Tablet, 30 MG PO Q8 for 30 Days, TAB Prov:JASPER SAHU 07/19/18 Ipratropium-Albuterol (Ipratropium-Albuterol) 0.5-3 Mg/3 Ml Ampul.neb, 3 ML HHN Q4H RESP THERAPY for 30 Days Prov:JASPER SAHU 07/19/18 Reported Medications Potassium Chloride* (Klor-Con*) 20 Meq Tabsr, 40 MEQ PO BID, TAB.SA 07/11/18 Pantoprazole* (Pantoprazole*) 40 Mg Tablet.dr, 40 MG PO DAILY, TAB 07/11/18 Dabigatran Etexilate Mesylate* (Pradaxa*) 75 Mg Cap, 75 MG PO BID, CAP 07/11/18 Discontinued Reported Medications Magnesium Hydroxide* (Milk Of Magnesia*) 400 Mg/5 Ml Oral.susp, 30 ML PO DAILY PRN for CONSTIPATION, ML 07/11/18 Spsexopspop-B-Wadnxzdbel Hb* (Guaifenesin* DM Syrup) 120 Ml Syrup, 10 ML PO Q6 PRN for COUGH, ML 07/11/18 Digoxin* (Lanoxin*) 0.125 Mg Tablet, 0.125 MG PO DAILY, TAB 02/07/18 Furosemide* (Lasix*) 40 Mg Tablet, 40 MG PO DAILY, TAB 01/31/16 Discontinued Scripts Atenolol (Tenormin) 25 Mg Tab, 25 MG PO BID for 30 Days, TAB Prov:JASPER SAHU 07/19/18 Allergies Allergies: Coded Allergies: No Known Allergy (Unverified , 08/13/18) PMhx/Soc History of Surgery: Yes (CAROTID ENDARTERECTOMY) Anesthesia Reaction: No Hx 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 Disorder: No Hx Respiratory Disorders: Yes (COPD ) Hx Cardiac Disorders: Yes (HTN,CHF,AFIB,CARDIOMYOPATHY) Hx Psychiatric Problems: No Hx Miscellaneous Medical Probl: No Hx Alcohol Use: No Hx Substance Use: No Hx Tobacco Use: No Smoking Status: Never smoker FmHx Family History: No diabetes Physical Exam Vitals Vital Signs Date Temp Pulse Resp B/P (MAP) Pulse Ox O2 O2 Flow FiO2 Time Delivery Rate 08/13/18 Nasal 2.0 10:07 Cannula 08/13/18 95 22 102/70 100 Nasal 09:59 (81) Cannula 08/13/18 Nasal 1 09:45 Cannula 08/13/18 98.6 100 18 127/51 93 09:16 (76) Physical Exam Const: No acute distress Head: Atraumatic Eyes: Normal Conjunctiva ENT: Normal External Ears, Nose and Mouth. Neck: Full range of motion. No meningismus. Resp: Decreased breath sounds bilaterally Cardio: Regular rate and rhythm, no murmurs Abd: Soft, non tender, non distended. Normal bowel sounds Skin: No petechiae or rashes Back: No midline or flank tenderness Ext: No cyanosis, or edema Neur: Awake but confused Result Diagram: 08/13/18 0944 08/13/18 0944 Results 24 hrs Laboratory Tests Test 08/13/18 09:44 White Blood Count 7.7 10^3/ul Red Blood Count 3.46 10^6/ul Hemoglobin 9.9 g/dl Hematocrit 30.3 % Mean Corpuscular Volume 87.6 fl Mean Corpuscular Hemoglobin 28.6 pg Mean Corpuscular Hemoglobin Concent 32.7 g/dl Red Cell Distribution Width 14.8 % Platelet Count 317 10^3/UL Mean Platelet Volume 8.7 fl Immature Granulocytes % 0.400 % Neutrophils % 64.7 % Lymphocytes % 14.7 % Monocytes % 17.7 % Eosinophils % 1.7 % Basophils % 0.8 % Nucleated Red Blood Cells % 0.0 /100WBC Immature Granulocytes # 0.030 10^3/ul Neutrophils # 5.0 10^3/ul Lymphocytes # 1.1 10^3/ul Monocytes # 1.4 10^3/ul Eosinophils # 0.1 10^3/ul Basophils # 0.1 10^3/ul Nucleated Red Blood Cells # 0.0 10^3/ul Sodium Level 134 mmol/L Potassium Level 4.0 mmol/L Chloride Level 98 mmol/L Carbon Dioxide Level 29 mmol/L Anion Gap 7 Blood Urea Nitrogen 18 mg/dl Creatinine 1.37 mg/dl Est Glomerular Filtrat Rate mL/min mL/min Glucose Level 106 mg/dl Calcium Level 9.0 mg/dl Troponin I 0.038 ng/ml Current Medications Medications Dose Sig/Yamileth Start Time Status Last (Trade) Ordered Route PRN Stop Time Admin Dose Reason Admin Aspirin 162 mg ONCE STAT 08/13/18 DC 08/13/18 (Aspirin) PO 09:35 09:57 08/13/18 09:36 1 inch ONCE STAT 08/13/18 DC Nitroglycerin TD 09:35 08/13/18 09:36 (Nitroglyceri n 2% Oint) 1 tab Q5M UP TO 3 08/13/18 Nitroglycerin DOSES PRN 10:00 SL .CHEST (Nitroglyceri PAIN n (Sl Tab) 0.4 Mg) Furosemide 40 mg ONCE STAT 08/13/18 DC (Lasix) IV 09:35 08/13/18 09:36 Cefepime HCl 50 ml @ ONCE STAT 08/13/18 DC 100 mls/hr IVPB 10:38 08/13/18 11:07 Vancomycin 250 ml @ ONCE STAT 08/13/18 HCl 125 mls/hr IVPB 10:38 08/13/18 12:37 Ondansetron 4 mg ER BRIDGE 08/13/18 HCl (Zofran PRN IV 11:00 Inj) NAUSEA/VOMITI 08/14/18 10:59 NG 650 mg ER BRIDGE 08/13/18 Acetaminophen PRN PO 11:00 (Tylenol .MILD PAIN 08/14/18 10:59 Tab) 1-3 OR TEMP Procedures/MDM Chest x-ray read by radiology shows bilateral lower lobe infiltrates. EKG read by me: Rate/Rhythm: Atrial fibrillation at a controlled rate Intervals: Normal Impression: Atrial fibrillation with controlled rate but no ischemia Patient is a 78-year-old male who presents with shortness of breath. He has fluid overload and likely CHF. He was also found to have bilateral lower lobe pneumonia and was given vancomycin and cefepime after blood cultures and lactic acid were drawn. I doubt sepsis at this time. The patient will be admitted to the care of Dr. Roberson who is covering for his primary doctor Dr. Saleh. The patient will be admitted to a telemetry bed. I doubt pneumothorax or pulmonary embolism. Departure Diagnosis: Primary Impression: Pneumonia Pneumonia type: due to unspecified organism Laterality: bilateral Lung location: unspecified part of lung Qualified Codes: J18.9 - Pneumonia, unspecified organism Additional Impressions: Shortness of breath CHF (congestive heart failure) Heart failure type: unspecified Heart failure chronicity: acute Qualified Codes: I50.9 - Heart failure, unspecified Condition: Serious JUSTYNA MCCLOUD MD Aug 13, 2018 11:13
[2018-08-13] MEDS ORDERED: MAGN400O19 PO (11:22)
[2018-08-13] MEDS ORDERED: ATEN50TA PO (11:23)
[2018-08-13] MEDS ORDERED: FURO40TA4 PO (11:23)
[2018-08-13] MEDS ORDERED: DOCU-144 PO (11:23)
[2018-08-13] MEDS ORDERED: ATEN-51 PO (11:42)
[2018-08-13] MEDS ORDERED: DIGO125T PO (11:43)
[2018-08-13] MEDS ORDERED: ASPI-817 PO (11:45)
[2018-08-13] MEDS ORDERED: ACET-141 PO (11:45)
[2018-08-13] MEDS ORDERED: DILT30TA30 PO (11:50)
[2018-08-13] MEDS ORDERED: HC30CR25 TOP (11:57)
[2018-08-13] MEDS ORDERED: GUAI-637 PO (11:59)
[2018-08-13] MEDS ORDERED: ALBU8.5H8 INH (12:00)
--- NOTE | 2018-08-13 16:35 | QN ---
Documentation Comment pt was seen and examined FIDEL GAVIN MD Aug 13, 2018 16:35
[2018-08-13] MEDS ORDERED: VANCOMYCIN IV PER PHARMACY XX SCH (17:00)
[2018-08-13] MEDS ORDERED: ALBUTEROL/IPRATROPIUM (NEB) 3 ML AMP ONE (17:00)
--- NOTE | 2018-08-13 17:10 | HP ---
DATE OF ADMISSION: 08/13/2018 REASON FOR ADMISSION: Shortness of breath. HISTORY OF PRESENTING ILLNESS: This is an 78-year-old male well known to our service with a past med ical history of hypertension, hyperlipidemia, history of AFib, history of left-sided effusion, status post thoracentesis, COPD, CKD, left lower lobe pneumonia, cardiomyopathy, EF of 35% to 40%, who was recently admitted in [facility] from 07/11/2018 until 07/19/2018. At that time, th e patient came in with shortness of breath, cough, pneumonia. The patient was treated with IV antibi otics, started on IV Lasix. The patient also had thoracentesis and clinically improved after removal of the fluid. The patient was offered to go to SNF, but however, the patient was having independenc e with his ADLs and was discharged home instead. According to the patient, when he went home, his [facility] had been rearranging his medications and he has been feeling worse shortness of merlin th and he came to the emergency department for further evaluation. The patient denies any cough. Th e patient also feels weaker than before. The patient also has lower extremity edema. On admission, vital signs show temperature 98.6, pulse 100, respirations 18, blood pressure 127/51, saturating 98% on 2 liters nasal cannula. Labs showed white count of 7.7, hemoglobin 10.9, platelet count 317, crea tinine 1.37. Chest x-ray showed bilateral lower lobe infiltrates and left lower lobe consolidation, moderate sized pleural effusions. The patient was given vancomycin, cefepime, aspirin, nitroglycerin and Lasix 40 was given and the patient was admitted for further management. PAST MEDICAL HISTORY: 1. Hypertension. 2. Hyperlipidemia. 3. History of COPD. 4. History of CHF. 5. History of lung cancer status post radiation. 6. History of left-sided effusion, status post thoracentesis. 7. AFib. 8. Coronary artery disease. 9. Peripheral vascular disease. 10. CKD stage III. 11. History of left lung effusion with history of chest tube with subcutaneous emphysema, status pos t thoracentesis. ALLERGIES: NO KNOWN DRUG ALLERGIES. FAMILY HISTORY: Negative. SOCIAL HISTORY: Lives by himself at home, but has support. PAST SURGICAL HISTORY: 1. History of left carotid endarterectomy. 2. History of multiple thoracenteses. 3. History of chest tube placement. 4. History of lung cancer. MEDICATIONS TAKING AT HOME: 1. Digoxin 0.125. 2. Diltiazem 30 p.o. q.8. 3. Lasix 40. 4. Protonix 40. 5. Pradaxa 75 b.i.d. 6. ProAir. 7. Atenolol 25 b.i.d. 8. Potassium chloride. 9. DuoNeb. 10. Milk of Magnesia. 11. Aspirin 81. REVIEW OF SYSTEMS: The patient is complaining of shortness of breath. Denies any cough. Denies any chest pain. Denies any abdominal pain, nausea, vomiting, diarrhea, any headache, any blurry vision. PHYSICAL EXAMINATION: VITAL SIGNS: Currently, his blood pressure is 135/76, afebrile, pulse 96, respirations 19, saturatin g 96% on 2 liters. GENERAL: The patient is awake, alert, oriented, does not appear to in any acute distress. HEENT: Pupils are equal, round, reactive to light. NECK: Supple. No JVD. HEART: Irregularly irregular. LUNGS: Decreased breath sounds bilaterally. ABDOMEN: Soft, nontender, nondistended, positive normoactive bowel sounds. EXTREMITIES: A 1 to 2+ edema. LABORATORY DATA: Creatinine 1.37, potassium 4.0. White count 7.7, hemoglobin 9.9. DIAGNOSTIC DATA: EKG showed AFib. Chest x-ray showed bilateral infiltrates with left lung consolida tion, moderate sized pleural effusions. ASSESSMENT AND PLAN: This is an 78-year-old male with: 1. Recurrent shortness of breath likely secondary to underlying pneumonia/congestive heart failure. 2. Chronic atrial fibrillation. 3. Hypertension. 4. Hyperlipidemia. 5. History of congestive heart failure and cardiomyopathy. 6. History of lung cancer. 7. Hyperlipidemia. 8. Chronic kidney disease. 9. History of pneumothorax status post chest tube placement. 10. Anemia. 11. Former smoker. PLAN: At this period of time, the patient will be admitted to [facility]. We will start the patient on br oad spectrum IV antibiotics. The patient will also be on IV Lasix b.i.d. We will call cardiology co nsultation and pulmonary consultation. [facility] the [facility] Dictated By: FIDEL HOGAN/JACQUELINE Conf#: [id number] DID#: [id number] CC: JUSTYNA MCCLOUD MD; CECE LOPEZ MD;*EndCC*
[2018-08-13] MEDS: ALBUTEROL/IPRATROPIUM (NEB) 3 ML AMP HHN SCH (20:00)
[2018-08-13 21:49] VITALS: PULSE 95
[2018-08-13 22:07] VITALS: BP 130/88; PULSE 116; RESP 20
[2018-08-13 23:00] VITALS: Ht 177.8 cm; Wt 70.0 kg
[2018-08-13] MEDS: CEFEPIME 1GM/50 ML (PMX) 50 ML IVPB SCH (23:04)
[2018-08-13] MEDS: DILTIAZEM 30 MG TAB PO SCH (23:05)
[2018-08-13] MEDS: ATENOLOL 25 MG TAB PO SCH (23:06)
[2018-08-13] MEDS: FUROSEMIDE 40 MG INJ IV SCH (23:06)
[2018-08-14] VITALS (11 sets, daily range): BP systolic 96–150; BP diastolic 46–102; PULSE 84–115; RESP 18–20
[2018-08-14] MEDS: DABIGATRAN 75 MG CAP PO SCH ×2 (00:08→08:27)
[2018-08-14] MEDS: ALBUTEROL/IPRATROPIUM (NEB) 3 ML AMP HHN SCH ×4 (02:09→19:30)
[2018-08-14] MEDS: DILTIAZEM 30 MG TAB PO SCH ×3 (05:21→21:43)
[2018-08-14] MEDS: FUROSEMIDE 40 MG INJ IV SCH ×2 (05:21→17:23)
[2018-08-14] MEDS: PANTOPRAZOLE (EC) 40 MG TAB PO SCH (05:21)
[2018-08-14] MEDS: DOCUSATE SODIUM 100 MG CAP PO PRN (08:27)
[2018-08-14] MEDS: CEFEPIME 1GM/50 ML (PMX) 50 ML IVPB SCH (08:27)
[2018-08-14] MEDS: ASPIRIN (EC) 81 MG TAB PO SCH (08:27)
[2018-08-14] MEDS: ATENOLOL 25 MG TAB PO SCH ×2 (08:30→21:00)
[2018-08-14] MEDS ORDERED: VANCOMYCIN HCL 1.25 GM in SOD CHLORIDE 0.9% 250 ML IVPB SCH (09:00)
[2018-08-14] MEDS ORDERED: POTASSIUM CHLORIDE (SR) 20 MEQ TAB PO STA (10:36)
--- NOTE | 2018-08-14 11:54 | CONS ---
Assessment/Plan Assessment/Plan Assessment/Plan (Daily) Chest x-ray showing large bilateral pleural effusions with cardiomegaly. Assessment and recommendations; 1. Patient admitted with recurrent CHF exacerbation with large bilateral pleural effusions, with a history of recurrent pleural effusion status post thoracentesis as well as recent left chest tube placement. 2. Underlying severe cardiomyopathy. 3. History of COPD, peripheral vascular disease, chronic atrial fibrillation, renal insufficiency. 4. History of lung cancer. Discontinue antibiotics. Currently there is no evidence to suggest any infective process. The findings are in line with the diagnosis of CHF exacerbation especially in light of recent past medical history. Will obtain either left or right sided thoracentesis or possibly both serially. Patient may require Pleurx catheter placement. Prognosis is guarded. Consultation Date/Type/Reason Admit Date/Time Aug 13, 2018 at 10:41 Date of Consultation: Aug 14, 2018 Type of Consult Pulmonary Patient is an 78-year-old male who came into the hospital with a few days history of increasing shortness of breath. Patient complains of very scant c ough without any sputum production, fever, hemoptysis. Upon evaluation chest x- ray was done which is showing moderate to large bilateral pleural effusions with cardiomegaly. Past medical history; 1. History of cardiomyopathy with poor ejection fraction. 2. History of recent admission to [facility] where he underwent thoracentesis and also had a left-sided chest tube placed. 3. History of chronic renal insufficiency. 4. Chronic atrial fibrillation. 5. COPD. 6. Hypertension. 7. History of lung cancer status post radiation treatment. Medications; reviewed. Allergies; none. Social history; patient is a former smoker. Family history; noncontributory. 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 Review of systems; denies any headache, seizures, dysphagia. Complains of shortness of breath. Denies any chest pain, angina, wheezing, sputum production or hemoptysis. Denies any fever or chills. Denies any abdominal pain, nausea vomiting. Complains of edema. Complains of orthopnea. Complains of dyspnea on minimal exertion. General exam; elderly male, awake, currently in no distress. Date/Time of Note DATE: 08/14/18 TIME: 11:49 Past Medical History Home Meds Active Scripts Ipratropium-Albuterol (Ipratropium-Albuterol) 0.5-3 Mg/3 Ml Ampul.neb, 3 ML HHN Q4H RESP THERAPY for 30 Days Prov:JASPER SAHU 07/19/18 Reported Medications Albuterol Sulfate* (Proair HFA*) 8.5 Gm Hfa.aer.ad, 2 PUFF INH Q6H PRN for WHEEZING AND SOB, #1 INHALER 08/13/18 Guaifenesin (Guaifenesin) 100 Mg/5 Ml Liquid, 10 ML PO Q8H PRN for COUGH, ML 08/13/18 Hydrocortisone* Topical (Hydrocortisone* Topical) 2.5%-28.3 Gm Cream..g., 1 APPLIC TOP BID PRN for ITCHING, TUB 08/13/18 Diltiazem Hcl* (Cardizem*) 30 Mg Tablet, 30 MG PO Q8 for CHF, #90 TAB HOLD IF SBP<110 OR HR<60 08/13/18 Acetaminophen* (Acetaminophen*) 500 MG Extra Strength Tablet, 500 MG PO Q6H PRN for PAIN AND OR ELEVATED TEMP, TAB 08/13/18 Aspirin* (Aspirin* EC) 81 Mg Tablet.dr, 81 MG PO DAILY, TAB 08/13/18 Digoxin* (Digitek*) 125 Mcg Tablet, 0.125 MG PO DAILY, TAB HOLD IF SBP<110 OR HR<60 08/13/18 Atenolol* (Atenolol*) 25 Mg Tablet, 12.5 MG PO BID, #60 TAB HOLD IF SBP<110 OR HR<60 08/13/18 Furosemide* (Furosemide*) 40 Mg Tablet, 40 MG PO DAILY, TAB 08/13/18 Magnesium Hydroxide* (Milk Of Magnesia*) 400 Mg/5 Ml Oral.susp, 30 ML PO DAILY, ML 08/13/18 Potassium Chloride* (Klor-Con*) 20 Meq Tabsr, 20 MEQ PO DAILY, TAB.SA 07/11/18 Pantoprazole* (Pantoprazole*) 40 Mg Tablet.dr, 40 MG PO DAILY, TAB 07/11/18 Dabigatran Etexilate Mesylate* (Pradaxa*) 75 Mg Cap, 75 MG PO BID, CAP 07/11/18 Discontinued Reported Medications Atenolol* (Atenolol*) 50 Mg Tablet, 50 MG PO BID, #60 TAB 08/13/18 Docusate Sodium* (Colace*) 100 Mg Capsule, 100 MG PO BID, #60 CAP 08/13/18 Magnesium Hydroxide* (Milk Of Magnesia*) 400 Mg/5 Ml Oral.susp, 30 ML PO DAILY PRN for CONSTIPATION, ML 07/11/18 Wtvrsowxcru-K-Lfnzbqtemh Hb* (Guaifenesin* DM Syrup) 120 Ml Syrup, 10 ML PO Q6 PRN for COUGH, ML 07/11/18 Digoxin* (Lanoxin*) 0.125 Mg Tablet, 0.125 MG PO DAILY, TAB 02/07/18 Furosemide* (Lasix*) 40 Mg Tablet, 40 MG PO DAILY, TAB 01/31/16 Discontinued Scripts Diltiazem Hcl* (Cardizem*) 30 Mg Tablet, 30 MG PO Q8 for 30 Days, TAB Prov:JASPER SAHU 07/19/18 Atenolol (Tenormin) 25 Mg Tab, 25 MG PO BID for 30 Days, TAB Prov:JASPER SAHU 07/19/18 Medications Current Medications Ondansetron HCl (Zofran Inj) 4 mg Q6H PRN IV NAUSEA/VOMITING; Start 08/13/18 at 17:00 Acetaminophen (Tylenol Tab) 650 mg Q6H PRN PO .PAIN 1-3 OR TEMP; Start 08/13/18 at 17:00 Docusate Sodium (Colace) 100 mg Q12H PRN PO .CONSTIPATION Last administered on 08/14/18at 08:27; Admin Dose 100 MG; Start 08/13/18 at 17:00 Pantoprazole (Protonix Tab) 40 mg DAILY@06 PO Last administered on 08/14/18at 0 5:21; Admin Dose 40 MG; Start 08/14/18 at 06:00 Albuterol/ Ipratropium (Duoneb) 3 ml Q6H RESP THERAPY HHN Last administered on 08/14/18at 08:48; Admin Dose 3 ML; Start 08/13/18 at 20:00 Vancomycin HCl (Vanco Iv Per Pharmacy) VANCOMYCIN PER PHARMACY PER PROTOCOL XX ; Start 08/13/18 at 17:00 Cefepime HCl 50 ml @ 100 mls/hr Q12 IVPB Last administered on 08/14/18at 08:27; Admin Dose 100 MLS/HR; Start 08/13/18 at 21:00 Furosemide (Lasix) 40 mg BID DIURETICS IV Last administered on 08/14/18 05:21 ; Admin Dose 40 MG; Start 08/13/18 at 21:00 Aspirin (Halfprin) 81 mg DAILY PO Last administered on 08/14/18 08:27; Admin Dose 81 MG; Start 08/14/18 at 09:00 Atenolol (Tenormin) 12.5 mg BID PO Last administered on 08/14/18 08:30; Admin Dose 12.5 MG; Start 08/13/18 at 21:00 Dabigatran (PRADaxa) 75 mg BID PO Last administered on 08/14/18 08:27; Admin Dose 75 MG; Start 08/13/18 at 21:00 Digoxin (Digoxin) 0.125 mg DAILY@1300 PO ; Start 08/14/18 at 13:00 Diltiazem HCl (Cardizem) 30 mg Q8 PO Last administered on 08/14/18 05:21; Admin Dose 30 MG; Start 08/13/18 at 22:00 Vancomycin HCl 1.25 gm/Sodium Chloride 250 ml @ 83.333 mls/ hr Q24H IVPB Last administered on 08/14/18 08:28; Admin Dose 83.333 MLS/HR; Start 08/14/18 at 09:00 Miscellaneous Information (*Rx Drug Level Order Reminder*) VANCO TROUGH @ 1,400 ON... 0800 ONCE XX ; Start 08/16/18 at 08:00; Stop 08/16/18 at 08:01 Allergies: Coded Allergies: No Known Allergies (Verified Allergy, Unknown, 08/14/18) Past Surgical History Past Surgical Hx: coronary bypass surgery Social History Smoking Status: Current every day smoker Exam/Review of Systems Exam Vitals Vital Signs Date Temp Pulse Resp B/P (MAP) Pulse Ox O2 O2 Flow FiO2 Time Delivery Rate 08/14/18 22 93 21 08:50 08/14/18 85 08:12 08/14/18 98.1 100/67 Room Air 07:11 (78) 08/14/18 2.0 02:11 Intake and Output 08/13/18 08/13/18 08/14/18 1515:00 23:00 07:00 IntakeIntake Total 300 ml 410 ml OutputOutput Total 75 ml 2900 ml BalanceBalance -75 ml 300 ml -2490 ml Exam H EENT exam; supple neck, positive JVD. No lymphadenopathy. Midline trachea. No thyromegaly. No neck masses. Pupils are small bilaterally. Chest exam; diminished breath sounds bilaterally. S1-S2 audible, no murmurs. Irregular rhythm. Abdomen exam; soft, no organomegaly. Bowel sounds audible. Extremity exam; 1+ edema. 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 Results Result Diagram: 08/14/18 0759 08/14/18 0759 Results 24hrs Laboratory Tests Test 08/13/18 12:34 08/13/18 14:59 08/13/18 15:57 08/13/18 21:49 Lactic Acid Level 1.0 1.0 Creatine Kinase 25 22 L Creatine Kinase 5.9 7.2 Index Creatinine Kinase MB 1.48 1.58 (Mass) Troponin I 0.028 0.033 Test 08/14/18 07:59 White Blood Count 9.7 # Red Blood Count 3.93 L Hemoglobin 11.2 L Hematocrit 34.6 L Mean Corpuscular 88.0 Volume Mean Corpuscular 28.5 L Hemoglobin Mean Corpuscular 32.4 Hemoglobin Concent Red Cell 14.4 Distribution Width Platelet Count 367 Mean Platelet Volume 9.1 Immature 0.500 H Granulocytes % Neutrophils % 71.6 Lymphocytes % 9.1 L Monocytes % 13.8 H Eosinophils % 4.6 Basophils % 0.4 Nucleated Red Blood 0.0 Cells % Immature 0.050 H Granulocytes # Neutrophils # 6.9 Lymphocytes # 0.9 Monocytes # 1.3 H Eosinophils # 0.4 Basophils # 0.0 Nucleated Red Blood 0.0 Cells # Sodium Level 135 Potassium Level 3.3 L Chloride Level 97 Carbon Dioxide Level 28 Anion Gap 10 Blood Urea Nitrogen 18 Creatinine 1.21 Est Glomerular Filtrat Rate mL/min Glucose Level 111 Calcium Level 9.0 Medications Medication Current Medications Ondansetron HCl (Zofran Inj) 4 mg Q6H PRN IV NAUSEA/VOMITING; Start 08/13/18 at 17:00 Acetaminophen (Tylenol Tab) 650 mg Q6H PRN PO .PAIN 1-3 OR TEMP; Start 08/13/18 at 17:00 Docusate Sodium (Colace) 100 mg Q12H PRN PO .CONSTIPATION Last administered on 08/14/18 08:27; Admin Dose 100 MG; Start 08/13/18 at 17:00 Pantoprazole (Protonix Tab) 40 mg DAILY@06 PO Last administered on 08/14/18 05:21; Admin Dose 40 MG; Start 08/14/18 at 06:00 Albuterol/ Ipratropium (Duoneb) 3 ml Q6H RESP THERAPY HHN Last administered on 08/14/18 08:48; Admin Dose 3 ML; Start 08/13/18 at 20:00 Vancomycin HCl (Vanco Iv Per Pharmacy) VANCOMYCIN PER PHARMACY PER PROTOCOL XX ; Start 08/13/18 at 17:00 Cefepime HCl 50 ml @ 100 mls/hr Q12 IVPB Last administered on 08/14/18 08:27; Admin Dose 100 MLS/HR; Start 08/13/18 at 21:00 Furosemide (Lasix) 40 mg BID DIURETICS IV Last administered on 08/14/18 05:21; Admin Dose 40 MG; Start 08/13/18 at 21:00 Aspirin (Halfprin) 81 mg DAILY PO Last administered on 08/14/18 08:27; Admin Dose 81 MG; Start 08/14/18 at 09:00 Atenolol (Tenormin) 12.5 mg BID PO Last administered on 08/14/18 08:30; Admin Dose 12.5 MG; Start 08/13/18 at 21:00 Dabigatran (PRADaxa) 75 mg BID PO Last administered on 08/14/18 08:27; Admin Dose 75 MG; Start 08/13/18 at 21:00 Digoxin (Digoxin) 0.125 mg DAILY@1300 PO ; Start 08/14/18 at 13:00 Diltiazem HCl (Cardizem) 30 mg Q8 PO Last administered on 08/14/18 05:21; Admin Dose 30 MG; Start 08/13/18 at 22:00 Vancomycin HCl 1.25 gm/Sodium Chloride 250 ml @ 83.333 mls/ hr Q24H IVPB Last administered on 08/14/18 08:28; Admin Dose 83.333 MLS/HR; Start 08/14/18 at 09:00 Miscellaneous Information (*Rx Drug Level Order Reminder*) VANCO TROUGH @ 1,400 ON... 0800 ONCE XX ; Start 08/16/18 at 08:00; Stop 08/16/18 at 08:01 ALAN DICKERSON Aug 14, 2018 11:54
--- NOTE | 2018-08-14 13:38 | PN ---
Date/Time of Note Date/Time of Note DATE: 08/14/18 TIME: 13:38 Assessment/Plan VTE [place]phylaxis [place] [facility] [place]: 6 SCD applied (from Ns): Yes Pharmacological prophylaxis: NA/contraindicated Pharm contraindication: low risk/ambulating Lines/Catheters IV C[facility] Type [facility] [place] Lock Assessment/Plan Assessment/Plan 78-year-old male with: 1. Recurrent shortness of breath likely secondary to underlying congestive heart failure. lasixwas reduced to 40 daily from 40 twice daily by home health agency 2. Chronic atrial fibrillation. 3. Hypertension. 4. Hyperlipidemia. 5. History of congestive heart failure and cardiomyopathy. 6. History of lung cancer. 7. Hyperlipidemia. 8. Chronic kidney disease. 9. History of pneumothorax status post chest tube placement. 10. Anemia. 11. Former smoker. 12 hx of pleural effusion status post thoracentesis in past plan -DC antibiotics for pulmonary -thoraCentesis -hold Pradaxa -Follow with cards/pulmonary recs -With aspirin/diltiazem/atenolol Result Diagram: 08/14/18 0759 08/14/18 0759 Results 24hrs Laboratory Tests Test 08/13/18 14:59 08/13/18 15:57 08/13/18 21:49 08/14/18 07:59 Lactic Acid Level 1.0 Creatine Kinase 25 22 L Creatine Kinase 5.9 7.2 Index Creatinine Kinase MB 1.48 1.58 (Mass) Troponin I 0.028 0.033 White Blood Count 9.7 # Red Blood Count 3.93 L Hemoglobin 11.2 L Hematocrit 34.6 L Mean Corpuscular 88.0 Volume Mean Corpuscular 28.5 L Hemoglobin Mean Corpuscular 32.4 Hemoglobin Concent Red Cell 14.4 Distribution Width Platelet Count 367 Mean Platelet Volume 9.1 Immature 0.500 H Granulocytes % Neutrophils % 71.6 Lymphocytes % 9.1 L Monocytes % 13.8 H Eosinophils % 4.6 Basophils % 0.4 Nucleated Red Blood 0.0 Cells % Immature 0.050 H Granulocytes # Neutrophils # 6.9 Lymphocytes # 0.9 Monocytes # 1.3 H Eosinophils # 0.4 Basophils # 0.0 Nucleated Red Blood 0.0 Cells # Sodium Level 135 Potassium Level 3.3 L Chloride Level 97 Carbon Dioxide Level 28 Anion Gap 10 Blood Urea Nitrogen 18 Creatinine 1.21 Est Glomerular Filtrat Rate mL/min Glucose Level 111 Calcium Level 9.0 Subjective 24 Hr Interval Summary Free Text/Dictation Short of breath at times. The biotics were stopped by pulmonary Exam/Review of Systems Exam Vitals Vital Signs Date Temp Pulse Resp B/P (MAP) Pulse Ox O2 O2 Flow FiO2 Time Delivery Rate 08/14/18 86 20 93 21 13:22 08/14/18 97.1 98/57 (71) Nasal 12:02 Cannula 08/14/18 2.0 02:11 Intake and Output 08/13/18 08/13/18 08/14/18 1515:00 23:00 07:00 IntakeIntake Total 300 ml 410 ml OutputOutput Total 75 ml 2900 ml BalanceBalance -75 ml 300 ml -2490 ml Exam GENERAL: The patient is awake, alert, oriented, does not appear to in any acute distress. HEENT: Pupils are equal, round, reactive to light. NECK: Supple. No JVD. HEART: Irregularly irregular. LUNGS: Decreased breath sounds bilaterally. ABDOMEN: Soft, nontender, nondistended, positive normoactive bowel sounds. EXTREMITIES: A 1 to 2+ edema. Results Results 24hrs Laboratory Tests Test 08/13/18 14:59 08/13/18 15:57 08/13/18 21:49 08/14/18 07:59 Lactic Acid Level 1.0 Creatine Kinase 25 22 L Creatine Kinase 5.9 7.2 Index Creatinine Kinase MB 1.48 1.58 (Mass) Troponin I 0.028 0.033 White Blood Count 9.7 # Red Blood Count 3.93 L Hemoglobin 11.2 L Hematocrit 34.6 L Mean Corpuscular 88.0 Volume Mean Corpuscular 28.5 L Hemoglobin Mean Corpuscular 32.4 Hemoglobin Concent Red Cell 14.4 Distribution Width Platelet Count 367 Mean Platelet Volume 9.1 Immature 0.500 H Granulocytes % Neutrophils % 71.6 Lymphocytes % 9.1 L Monocytes % 13.8 H Eosinophils % 4.6 Basophils % 0.4 Nucleated Red Blood 0.0 Cells % Immature 0.050 H Granulocytes # Neutrophils # 6.9 Lymphocytes # 0.9 Monocytes # 1.3 H Eosinophils # 0.4 Basophils # 0.0 Nucleated Red Blood 0.0 Cells # Sodium Level 135 Potassium Level 3.3 L Chloride Level 97 Carbon Dioxide Level 28 Anion Gap 10 Blood Urea Nitrogen 18 Creatinine 1.21 Est Glomerular Filtrat Rate mL/min Glucose Level 111 Calcium Level 9.0 Medications Medication Current Medications Ondansetron HCl (Zofran Inj) 4 mg Q6H PRN IV NAUSEA/VOMITING; Start 08/13/18 at 17:00 Acetaminophen (Tylenol Tab) 650 mg Q6H PRN PO .PAIN 1-3 OR TEMP; Start 08/13/18 at 17:00 Docusate Sodium (Colace) 100 mg Q12H PRN PO .CONSTIPATION Last administered on 08/14/18 08:27; Admin Dose 100 MG; Start 08/13/18 at 17:00 Pantoprazole (Protonix Tab) 40 mg DAILY@06 PO Last administered on 08/14/18 05:21; Admin Dose 40 MG; Start 08/14/18 at 06:00 Albuterol/ Ipratropium (Duoneb) 3 ml Q6H RESP THERAPY HHN Last administered on 08/14/18 13:22; Admin Dose 3 ML; Start 08/13/18 at 20:00 Furosemide (Lasix) 40 mg BID DIURETICS IV Last administered on 08/14/18 05:21; Admin Dose 40 MG; Start 08/13/18 at 21:00 Aspirin (Halfprin) 81 mg DAILY PO Last administered on 08/14/18 08:27; Admin Dose 81 MG; Start 08/14/18 at 09:00 Atenolol (Tenormin) 12.5 mg BID PO Last administered on 08/14/18 08:30; Admin Dose 12.5 MG; Start 08/13/18 at 21:00 Dabigatran (PRADaxa) 75 mg BID PO Last administered on 08/14/18 08:27; Admin Dose 75 MG; Start 08/13/18 at 21:00 Digoxin (Digoxin) 0.125 mg DAILY@1300 PO ; Start 08/14/18 at 13:00 Diltiazem HCl (Cardizem) 30 mg Q8 PO Last administered on 08/14/18 05:21; Admin Dose 30 MG; Start 08/13/18 at 22:00 Miscellaneous Information (*Rx Drug Level Order Reminder*) VANCO TROUGH @ 1,400 ON... 0800 ONCE XX ; Start 08/16/18 at 08:00; Stop 08/16/18 at 08:01 FIDEL GAVIN MD Aug 14, 2018 13:38
[2018-08-14] MEDS: DIGOXIN 0.125 MG TAB PO SCH (13:42)
--- NOTE | 2018-08-14 14:30 | CONS ---
DATE OF ADMISSION: 08/13/2018 DATE OF CONSULTATION: 08/14/2018 REASON FOR CONSULTATION: Congestive heart failure exacerbation. REQUESTING PHYSICIAN: Do Roberson MD HISTORY OF PRESENT ILLNESS: Mr. Nielsen is an 78-year-old male with a history of diastolic congestive heart failure by most recent echo, atrial fibrillation, chronic obstructive pulmonary disease, hyper tension, recently positive troponins, who had been discharged to outpatient followup and represents w ith complaints of dyspnea on exertion. Initially upon arrival, temperature 98.6, blood pressure 127/ 51, pulse 118, satting 93%. The patient's labs were notable for white count of 7.7, hemoglobin 9.9, platelet count 317, sodium of 134, potassium 4.0, creatinine 1.37, BUN of 18. Troponin negative. The patient underwent a chest x-ray revealing bilateral lower lobe infiltrates with left lower lobe c onsolidation and bilateral moderate sized pleural effusions. The patient's electrocardiogram reveale d atrial fibrillation, rate of 88, normal axis, normal intervals, diffuse nonspecific and later al biphasic T-wave abnormalities. Patient subsequently admitted to the floor and since admit to the floor, continues short of breath. Denies chest pain. PAST MEDICAL HISTORY: As above in HPI. MEDICATIONS CURRENTLY IN HOSPITAL: 1. Digoxin 0.1 mg daily. 2. Aspirin 81 mg daily. 3. Diltiazem 30 mg p.o. q.8. 4. Atenolol 12.5 mg p.o. b.i.d. 5. Lasix 40 mg IV b.i.d. 6. DuoNeb. 7. Zofran. 8. Tylenol. 9. Colace. ALLERGIES: No known drug allergies. SOCIAL HISTORY: No current tobacco, ETOH or illicit drug use. FAMILY HISTORY: No sudden cardiac or early CAD. REVIEW OF SYSTEMS: As above in HPI. CONSTITUTIONAL: No fevers, chills. PULMONARY: Positive for shortness of breath. CARDIOVASCULAR: Congestive heart failure, diastolic, atrial fibrillation, rate controlled. GASTROINTESTINAL: No vomiting. GENITOURINARY: No hematuria. MUSCULOSKELETAL: Degenerative joint disease. PSYCHIATRIC: No documented psych history. NEUROLOGIC: No documented history of CVA. PHYSICAL EXAMINATION VITAL SIGNS: Temperature of 97.1, blood pressure 98/57, pulse 96, respiratory rate 20, sat 94%. GENERAL: The patient is alert, awake, no acute distress. NECK: JVP approximately 9 cm of water. CHEST: Fair throughout with mildly decreased at bases bilaterally. HEART: Irregularly irregular, I/ systolic murmur. ABDOMEN: Positive bowel sounds, soft. EXTREMITIES: No significant pitting edema, 1+ pulses bilateral posterior tibial. LABS: Most recent from today, white count 9.71, hemoglobin , platelet count 367, sodium of 135, potassium 3.3, creatinine 0.21, BUN 18. IMAGING STUDIES: A chest x-ray from 08/13 revealing bilateral lower lobe infiltrates, left lower louisa g consolidation, bilateral moderate sized pleural effusions. ECG: As above in HPI. No further electrocardiograms for my review at this time. IMPRESSION: 1. Assess for exacerbation, diastolic, acute on chronic. 2. Atrial fibrillation, mainly rate controlled at this time. 3. Shortness of breath, possibly due to congestive heart failure, possible may have pneumonia. 4. Pneumonia. 5. Pleural effusions. 6. Renal failure, borderline. 7. Chronic obstructive pulmonary disease. 8. History of lung cancer, status post treatment. RECOMMENDATIONS: 1. At this time, we would maintain patient on telemetry monitoring to follow rhythm and rate control closely. 2. Would continue the patient's Lasix diuresis, following strict I's and O's, creatinine to grade di uresis closely. 3. Continue the patient's current atenolol and diltiazem for heart rate control. 4. Would consider checking culture data to assess for any possible signs of ongoing infection. 5. Will consider a chest CT to further assess the patient's true pulmonary pathology. 6. Continue the patient's digoxin for now. Will follow digoxin levels closely in the setting of garfield al insufficiency. 7. Continue patient's bronchodilators. 8. Would resume the patient's baseline anticoagulation for atrial fibrillation and if patient is to undergo procedures, would likely start patient on Lovenox systemic anticoagulation. 9. Continue patient's aspirin at this time for prophylaxis against cardiovascular events and thrombo embolic events. Thank you for allowing me to take part in the care of this patient. I will continue to follow very c losely with you with further recommendations will be made as patient progresses through his inpatient hospital clinical course. Dictated By: CECE CESPEDES/JACQUELINE Conf#: [id number] [facility]#: [id number] CC: DO ROBERSON;*EndCC*
[2018-08-14] MEDS: BISACODYL (EC) 5 MG TAB PO PRN (21:52)
[2018-08-15] VITALS (16 sets, daily range): BP systolic 92–135; BP diastolic 56–95; PULSE 60–117; RESP 16–20
[2018-08-15] MEDS: ALBUTEROL/IPRATROPIUM (NEB) 3 ML AMP HHN SCH ×4 (02:21→20:56)
[2018-08-15] MEDS: PANTOPRAZOLE (EC) 40 MG TAB PO SCH (05:10)
[2018-08-15] MEDS: FUROSEMIDE 40 MG INJ IV SCH ×2 (05:10→17:49)
[2018-08-15] MEDS: DILTIAZEM 30 MG TAB PO SCH ×3 (05:10→21:03)
[2018-08-15] MEDS: ASPIRIN (EC) 81 MG TAB PO SCH (08:21)
[2018-08-15] MEDS: ATENOLOL 25 MG TAB PO SCH ×2 (08:22→21:04)
--- NOTE | 2018-08-15 11:06 | CONS ---
Assessment/Plan Assessment/Plan Assessment/Plan (Daily) Assessment and recommendations; 1. Patient admitted with recurrent CHF exacerbation with moderate bilateral pleural effusions. 2. History of hypertension. Continue current supportive care. Patient scheduled for thoracentesis on the right or left. Consultation Date/Type/Reason Admit Date/Time Aug 13, 2018 at 10:41 Initial Consult Date 08/14/18 Type of Consult Pulmonary Patient is an 78-year-old male who came into the hospital with a few days history of increasing shortness of breath. Patient complains of very scant cough without any sputum production, fever, hemoptysis. Upon evaluation chest x-ray was done which is showing moderate to large bilateral pleural effusions with cardiomegaly. Past medical history; 1. History of cardiomyopathy with poor ejection fraction. 2. History of recent admission to [facility] where he underwent thoracentesis and also had a left-sided chest tube placed. 3. History of chronic renal insufficiency. 4. Chronic atrial fibrillation. 5. COPD. 6. Hypertension. 7. History of lung cancer status post radiation treatment. Medications; reviewed. Allergies; none. Social history; patient is a former smoker. Family history; noncontributory. 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 Review of systems; denies any headache, seizures, dysphagia. Complains of shortness of breath. Denies any chest pain, angina, wheezing, sputum production or hemoptysis. Denies any fever or chills. Denies any abdominal pain, nausea vomiting. Complains of edema. Complains of orthopnea. Complains of dyspnea on minimal exertion. General exam; elderly male, awake, currently in no distress. Date/Time of Note DATE: 08/15/18 TIME: 11:04 24 HR Interval Summary Free Text/Dictation Patient's condition is stable. Denies any shortness of breath at rest. Any coughing, wheezing, sputum production any fever. General exam; elderly male, awake and alert. Currently in no distress. Exam/Review of Systems Exam Vitals Vital Signs Date Temp Pulse Resp B/P (MAP) Pulse Ox O2 O2 Flow FiO2 Time Delivery Rate 08/15/18 89 18 94 21 08:29 08/15/18 98.0 130/59 07:34 (82) 08/14/18 Room Air 15:56 08/14/18 2.0 02:11 Intake and Output 08/14/18 08/14/18 08/15/18 1414:59 22:59 06:59 IntakeIntake Total 240 ml 800 ml 240 ml OutputOutput Total 200 ml 1200 ml 800 ml BalanceBalance 40 ml -400 ml -560 ml Exam H EENT exam; supple neck, positive JVD. No lymphadenopathy. Midline trachea. No thyromegaly. Patient has fair dentition with multiple dental caps. Pupils are small bilaterally. Chest exam; diminished breath sounds bilaterally with poor breath sounds in righ t upper lobe. S1-S2 audible, no murmurs. Abdomen exam; soft, nontender. Nondistended. No organomegaly. Bowel sounds are audible. Extremity exam; no peripheral edema clubbing. 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 Results Result Diagram: 08/14/18 0759 08/15/18 0537 Results 24hrs Laboratory Tests Test 08/14/18 14:50 08/14/18 15:51 08/15/18 05:37 Prothrombin Time 17.8 H 17.7 H Prothrombin Time Ratio 1.4 1.4 INR International Normalized Ratio 1.46 1.45 Activated Partial Thromboplast Time 59.8 H Sodium Level 134 L Potassium Level 3.6 Chloride Level 96 L Carbon Dioxide Level 30 Anion Gap 8 Blood Urea Nitrogen 19 Creatinine 1.12 Est Glomerular Filtrat Rate mL/min Glucose Level 108 Calcium Level 8.6 Medications Medication Current Medications Ondansetron HCl (Zofran Inj) 4 mg Q6H PRN IV NAUSEA/VOMITING; Start 08/13/18 at 17:00 Acetaminophen (Tylenol Tab) 650 mg Q6H PRN PO .PAIN 1-3 OR TEMP; Start 08/13/18 at 17:00 Docusate Sodium (Colace) 100 mg Q12H PRN PO .CONSTIPATION Last administered on 08/14/18at 08:27; Admin Dose 100 MG; Start 08/13/18 at 17:00 Pantoprazole (Protonix Tab) 40 mg DAILY@06 PO Last administered on 08/15/18at 05:10; Admin Dose 40 MG; Start 08/14/18 at 06:00 Albuterol/ Ipratropium (Duoneb) 3 ml Q6H RESP THERAPY HHN Last administered on 08/15/18at 08:37; Admin Dose 3 ML; Start 08/13/18 at 20:00 Furosemide (Lasix) 40 mg BID DIURETICS IV Last administered on 08/15/18 05:10; Admin Dose 40 MG; Start 08/13/18 at 21:00 Aspirin (Halfprin) 81 mg DAILY PO Last administered on 08/14/18 08:27; Admin Dose 81 MG; Start 08/14/18 at 09:00 Atenolol (Tenormin) 12.5 mg BID PO Last administered on 08/15/18 08:22; Admin Dose 12.5 MG; Start 08/13/18 at 21:00 Digoxin (Digoxin) 0.125 mg DAILY@1300 PO Last administered on 08/14/18 13:42; Admin Dose 0.125 MG; Start 08/14/18 at 13:00 Diltiazem HCl (Cardizem) 30 mg Q8 PO Last administered on 08/15/18 05:10; Admin Dose 30 MG; Start 08/13/18 at 22:00 Bisacodyl (Dulcolax) 10 mg BID PRN PO CONSTIPATION Last administered on 21:52; Admin Dose 10 MG; Start 08/14/18 at 22:00 ALAN DICKERSON Aug 15, 2018 11:06
[2018-08-15] MEDS ORDERED: LIDOCAINE 1% (MPF) 5 ML VIAL ONE (13:36)
[2018-08-15] MEDS: DIGOXIN 0.125 MG TAB PO SCH (14:37)
--- NOTE | 2018-08-15 15:25 | PN ---
Date/Time of Note Date/Time of Note DATE: 08/15/18 TIME: 15:24 Assessment/Plan VTE Prophylaxis Risk score (from Ns)>0 risk: 3 SCD applied (from Ns): Yes Pharmacological prophylaxis: NA/contraindicated Pharm contraindication: low risk/ambulating Lines/Catheters IV [facility]from [facility] Saline Lock Assessment/Plan Assessment/Plan 78-year-old male with: 1. Recurrent shortness of breath likely secondary to underlying congestive heart failure vs pneumonia . lasix was reduced to 40 daily from 40 twice daily by home health agency 2. Chronic atrial fibrillation. 3. Hypertension. 4. Hyperlipidemia. 5. History of congestive heart failure and cardiomyopathy. 6. History of lung cancer. 7. Hyperlipidemia. 8. Chronic kidney disease. 9. History of pneumothorax status post chest tube placement. 10. Anemia. 11. Former smoker. 12 hx of pleural effusion status post thoracentesis in past plan -DC antibiotics by pulmonary -thoraCentesis today, fu labs -hold Pradaxa> restart again s/p procedure -Follow with cards/pulmonary recs -With aspirin/diltiazem/atenolol Result Diagram: 08/14/18 0759 08/15/18 0537 Results 24hrs Laboratory Tests Test 08/14/18 15:51 08/15/18 05:37 08/15/18 11:31 Prothrombin Time 17.7 H 16.4 H Prothrombin Time Ratio 1.4 1.3 INR International Normalized Ratio 1.45 1.31 Activated Partial Thromboplast Time 59.8 H 50.5 H Sodium Level 134 L Potassium Level 3.6 Chloride Level 96 L Carbon Dioxide Level 30 Anion Gap 8 Blood Urea Nitrogen 19 Creatinine 1.12 Est Glomerular Filtrat Rate mL/min Glucose Level 108 Calcium Level 8.6 Subjective 24 Hr Interval Summary Free Text/Dictation This post thoracentesis today. With removal of 1 L hr early 100s Exam/Review of Systems Exam Vitals Vital Signs Date Temp Pulse Resp B/P (MAP) Pulse Ox O2 O2 Flow FiO2 Time Delivery Rate 08/15/18 90 16 98 27 13:59 08/15/18 121/95 Room Air 13:00 (104) 08/15/18 98.0 12:44 08/14/18 2.0 02:11 Intake and Output 08/14/18 08/14/18 08/15/18 1515:00 23:00 07:00 IntakeIntake Total 240 ml 800 ml 240 ml OutputOutput Total 200 ml 1200 ml 800 ml BalanceBalance 40 ml -400 ml -560 ml Exam GENERAL: The patient is awake, alert, oriented, does not appear to in any acute distress. HEENT: Pupils are equal, round, reactive to light. NECK: Supple. No JVD. HEART: Irregularly irregular. LUNGS: Decreased breath sounds bilaterally. ABDOMEN: Soft, nontender, nondistended, positive normoactive bowel sounds. EXTREMITIES: A 1 to 2+ edema. Results Results 24hrs Laboratory Tests Test 08/14/18 15:51 08/15/18 05:37 08/15/18 11:31 Prothrombin Time 17.7 H 16.4 H Prothrombin Time Ratio 1.4 1.3 INR International Normalized Ratio 1.45 1.31 Activated Partial Thromboplast Time 59.8 H 50.5 H Sodium Level 134 L Potassium Level 3.6 Chloride Level 96 L Carbon Dioxide Level 30 Anion Gap 8 Blood Urea Nitrogen 19 Creatinine 1.12 Est Glomerular Filtrat Rate mL/min Glucose Level 108 Calcium Level 8.6 Medications Medication Current Medications Ondansetron HCl (Zofran Inj) 4 mg Q6H PRN IV NAUSEA/VOMITING; Start 08/13/18 at 17:00 Acetaminophen (Tylenol Tab) 650 mg Q6H PRN PO .PAIN 1-3 OR TEMP; Start 08/13/18 at 17:00 Docusate Sodium (Colace) 100 mg Q12H PRN PO .CONSTIPATION Last administered on 08/14/18at 08:27; Admin Dose 100 MG; Start 08/13/18 at 17:00 Pantoprazole (Protonix Tab) 40 mg DAILY@06 PO Last administered on 08/15/18at 05:10; Admin Dose 40 MG; Start 08/14/18 at 06:00 Albuterol/ Ipratropium (Duoneb) 3 ml Q6H RESP THERAPY HHN Last administered on 08/15/18at 13:56; Admin Dose 3 ML; Start 08/13/18 at 20:00 Furosemide (Lasix) 40 mg BID DIURETICS IV Last administered on 08/15/18at 05:10; Admin Dose 40 MG; Start 08/13/18 at 21:00 Aspirin (Halfprin) 81 mg DAILY PO Last administered on 08/14/18 08:27; Admin Dose 81 MG; Start 08/14/18 at 09:00 Atenolol (Tenormin) 12.5 mg BID PO Last administered on 08/15/18 08:22; Admin Dose 12.5 MG; Start 08/13/18 at 21:00 Digoxin (Digoxin) 0.125 mg DAILY@1300 PO Last administered on 08/15/18 14:37; Admin Dose 0.125 MG; Start 08/14/18 at 13:00 Diltiazem HCl (Cardizem) 30 mg Q8 PO Last administered on 08/15/18 14:37; Admin Dose 30 MG; Start 08/13/18 at 22:00 Bisacodyl (Dulcolax) 10 mg BID PRN PO CONSTIPATION Last administered on 08/14/18 21:52; Admin Dose 10 MG; Start 08/14/18 at 22:00 FIDEL GAVIN MD Aug 15, 2018 15:25
--- NOTE | 2018-08-15 20:10 | CONS ---
Assessment/Plan Assessment/Plan Hospital Course (Demo Recall) IMPRESSION: 1. Assess for exacerbation, diastolic, acute on chronic. 2. Atrial fibrillation-rate controlled 3. Shortness of breath, possibly due to congestive heart failure, possible may have pneumonia. 4. Pneumonia. 5. Pleural effusions. 6. Renal failure, borderline. 7. Chronic obstructive pulmonary disease. 8. History of lung cancer, status post treatment. Recc: -Tele -continue atenolol -Continue lasix diuresis -Resumed on pradaxa s/p thoracentesis -Continue digoxin Consultation Date/Type/Reason Admit Date/Time Aug 13, 2018 at 10:41 Initial Consult Date 08/14/18 Type of Consult Cardiology Reason for Consultation CHF Requesting Provider: FIDEL GAVIN MD Date/Time of Note DATE: 08/15/18 TIME: 20:06 Exam/Review of Systems Vital Signs Vitals Vital Signs Date Temp Pulse Resp B/P (MAP) Pulse Ox O2 O2 Flow FiO2 Time Delivery Rate 08/15/18 86 20:00 08/15/18 97.8 16 118/56 97 15:50 (76) 08/15/18 27 13:59 08/15/18 Room Air 13:00 08/14/18 2.0 02:11 Intake and Output 08/14/18 08/14/18 08/15/18 1515:00 23:00 07:00 IntakeIntake Total 240 ml 800 ml 240 ml OutputOutput Total 200 ml 1200 ml 800 ml BalanceBalance 40 ml -400 ml -560 ml Exam Exam Review of Systems: CONSTITUTIONAL: No fevers, chills. PULMONARY: No sob CARDIOVASCULAR: No chest pain/palpitations GASTROINTESTINAL: No nausea/vomiting. GENITOURINARY: No hematuria/dysuria. MUSCULOSKELETAL: No myagias/arthalgias. PSYCHIATRIC: The patient denies depression. NEUROLOGIC: No weakness Constitutional: alert Psych: no complaints Head: normocephalic ENMT: mucosa pink and moist Respiratory: diminished breath sounds (at bases/B) Cardiovascular: regular rate and rhythm Gastrointestinal: soft, non-tender Musculoskeletal: muscle tone (normal) Extremities: edema (trace/B) 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: other (no focal defiicts) Labs Result Diagram: 08/14/18 0759 08/15/18 0537 Results 24hrs Laboratory Tests Test 08/15/18 05:37 08/15/18 11:31 08/15/18 12:00 Sodium Level 134 L Potassium Level 3.6 Chloride Level 96 L Carbon Dioxide Level 30 Anion Gap 8 Blood Urea Nitrogen 19 Creatinine 1.12 Est Glomerular Filtrat Rate mL/min Glucose Level 108 Calcium Level 8.6 Prothrombin Time 16.4 H Prothrombin Time Ratio 1.3 INR International Normalized Ratio 1.31 Activated Partial Thromboplast Time 50.5 H Body Fluid Total Protein 3.1 Medications Medications Current Medications Ondansetron HCl (Zofran Inj) 4 mg Q6H PRN IV NAUSEA/VOMITING; Start 08/13/18 at 17:00 Acetaminophen (Tylenol Tab) 650 mg Q6H PRN PO .PAIN 1-3 OR TEMP; Start 08/13/18 at 17:00 Docusate Sodium (Colace) 100 mg Q12H PRN PO .CONSTIPATION Last administered on 08/14/18 08:27; Admin Dose 100 MG; Start 08/13/18 at 17:00 Pantoprazole (Protonix Tab) 40 mg DAILY@06 PO Last administered on 08/15/18 05:10; Admin Dose 40 MG; Start 08/14/18 at 06:00 Albuterol/ Ipratropium (Duoneb) 3 ml Q6H RESP THERAPY HHN Last administered on 08/15/18 13:56; Admin Dose 3 ML; Start 08/13/18 at 20:00 Furosemide (Lasix) 40 mg BID DIURETICS IV Last administered on 08/15/18 17:49; Admin Dose 40 MG; Start 08/13/18 at 21:00 Aspirin (Halfprin) 81 mg DAILY PO Last administered on 08/14/18 08:27; Admin Dose 81 MG; Start 08/14/18 at 09:00 Atenolol (Tenormin) 12.5 mg BID PO Last administered on 08/15/18 08:22; Admin Dose 12.5 MG; Start 08/13/18 at 21:00 Digoxin (Digoxin) 0.125 mg DAILY@1300 PO Last administered on 08/15/18 14:37; Admin Dose 0.125 MG; Start 08/14/18 at 13:00 Diltiazem HCl (Cardizem) 30 mg Q8 PO Last administered on 08/15/18 14:37; Admin Dose 30 MG; Start 08/13/18 at 22:00 Bisacodyl (Dulcolax) 10 mg BID PRN PO CONSTIPATION Last administered on 08/14/18at 21:52; Admin Dose 10 MG; Start 08/14/18 at 22:00 Dabigatran (PRADaxa) 75 mg BID PO ; Start 08/15/18 at 21:00 CECE LOPEZ Aug 15, 2018 20:10
[2018-08-15] MEDS: BISACODYL (EC) 5 MG TAB PO PRN (21:02)
[2018-08-15] MEDS: DABIGATRAN 75 MG CAP PO SCH (21:03)
[2018-08-16] VITALS (12 sets, daily range): BP systolic 100–135; BP diastolic 50–69; PULSE 59–97; RESP 16–19
[2018-08-16] MEDS: ALBUTEROL/IPRATROPIUM (NEB) 3 ML AMP HHN SCH ×4 (01:35→19:20)
[2018-08-16] MEDS: FUROSEMIDE 40 MG INJ IV SCH ×2 (06:18→18:42)
[2018-08-16] MEDS: PANTOPRAZOLE (EC) 40 MG TAB PO SCH (06:18)
[2018-08-16] MEDS: DILTIAZEM 30 MG TAB PO SCH ×3 (06:19→21:29)
[2018-08-16] MEDS: DABIGATRAN 75 MG CAP PO SCH ×2 (08:23→21:28)
[2018-08-16] MEDS: ATENOLOL 25 MG TAB PO SCH ×2 (08:25→21:29)
[2018-08-16] MEDS: ASPIRIN (EC) 81 MG TAB PO SCH (08:25)
--- NOTE | 2018-08-16 11:34 | PN ---
Date/Time of Note Date/Time of Note DATE: 08/16/18 TIME: 11:33 Assessment/Plan VTE Prophylaxis Risk score (from Ns)>0 risk: 3 SCD applied (from Ns): Yes Pharmacological prophylaxis: NA/contraindicated Pharm contraindication: surgical contra Lines/Catheters IV C[facility]ter Type (from [facility]): Saline Lock Assessment/Plan Hospital Course 1. Recurrent shortness of breath likely secondary to underlying congestive heart failure vs pneumonia . lasix was reduced to 40 daily from 40 twice daily by home health agency 2. Chronic atrial fibrillation. 3. Hypertension. 4. Hyperlipidemia. 5. History of congestive heart failure and cardiomyopathy. 6. History of lung cancer. 7. Hyperlipidemia. 8. Chronic kidney disease. 9. History of pneumothorax status post chest tube placement. 10. Anemia. 11. Former smoker. 12 hx of pleural effusion status post thoracentesis in past Assessment/Plan -unclear if pt with hospice care, director of casework reported that hospice is revoked now, -Pt is pending transfer to SNF -he agreed -s/p thoracentesis right side, left pending -hold Pradaxa> restart again s/p procedure -Follow with cards/pulmonary recs -With aspirin/diltiazem/atenolol -GI proph.Protonix Result Diagram: 08/14/18 0759 08/15/18 0537 Results 24hrs Laboratory Tests Test 08/15/18 12:00 Body Fluid Total Protein 3.1 Subjective 24 Hr Interval Summary Constitutional: no complaints Exam/Review of Systems Exam Vitals Vital Signs Date Temp Pulse Resp B/P (MAP) Pulse Ox O2 O2 Flow FiO2 Time Delivery Rate 08/16/18 98.4 59 18 100/50 96 11:13 (67) 08/15/18 21 20:56 08/15/18 Room Air 13:00 08/14/18 2.0 02:11 Intake and Output 08/15/18 08/15/18 08/16/18 1515:00 23:00 07:00 IntakeIntake Total 550 ml OutputOutput Total 600 ml 200 ml BalanceBalance -50 ml -200 ml Constitutional: alert, oriented Neck: supple Respiratory: diminished breath sounds Cardiovascular: regular rate and rhythm Gastrointestinal: soft Skin: ecchymosis Results Results 24hrs Laboratory Tests Test 08/15/18 12:00 Body Fluid Total Protein 3.1 Medications Medication Current Medications Ondansetron HCl (Zofran Inj) 4 mg Q6H PRN IV NAUSEA/VOMITING; Start 08/13/18 at 17:00 Acetaminophen (Tylenol Tab) 650 mg Q6H PRN PO .PAIN 1-3 OR TEMP; Start 08/13/18 at 17:00 Docusate Sodium (Colace) 100 mg Q12H PRN PO .CONSTIPATION Last administered on 08/14/18 08:27; Admin Dose 100 MG; Start 08/13/18 at 17:00 Pantoprazole (Protonix Tab) 40 mg DAILY@06 PO Last administered on 08/16/18 06:18; Admin Dose 40 MG; Start 08/14/18 at 06:00 Albuterol/ Ipratropium (Duoneb) 3 ml Q6H RESP THERAPY HHN Last administered on 08/15/18 20:56; Admin Dose 3 ML; Start 08/13/18 at 20:00 Furosemide (Lasix) 40 mg BID DIURETICS IV Last administered on 08/16/18 06:18; Admin Dose 40 MG; Start 08/13/18 at 21:00 Aspirin (Halfprin) 81 mg DAILY PO Last administered on 08/16/18 08:25; Admin Dose 81 MG; Start 08/14/18 at 09:00 Atenolol (Tenormin) 12.5 mg BID PO Last administered on 08/16/18 08:25; Admin Dose 12.5 MG; Start 08/13/18 at 21:00 Digoxin (Digoxin) 0.125 mg DAILY@1300 PO Last administered on 08/15/18 14:37; Admin Dose 0.125 MG; Start 08/14/18 at 13:00 Diltiazem HCl (Cardizem) 30 mg Q8 PO Last administered on 08/16/18 06:19; Admin Dose 30 MG; Start 08/13/18 at 22:00 Bisacodyl (Dulcolax) 10 mg BID PRN PO CONSTIPATION Last administered on 08/15/18 21:02; Admin Dose 10 MG; Start 08/14/18 at 22:00 Dabigatran (PRADaxa) 75 mg BID PO Last administered on 08/16/18 08:23; Admin Dose 75 MG; Start 08/15/18 at 21:00 Mupirocin (Bactroban) 1 applic BID TOP ; Start 08/16/18 at 12:00 JASPER SAHU Aug 16, 2018 11:34
--- NOTE | 2018-08-16 11:43 | CONS ---
Consultation Date/Type/Reason Admit Date/Time Aug 13, 2018 at 10:41 Initial Consult Date 08/14/18 Type of Consult Pulmonary Patient is an 78-year-old male who came into the hospital with a few days history of increasing shortness of breath. Patient complains of very scant cough without any sputum production, fever, hemoptysis. Upon evaluation chest x-ray was done which is showing moderate to large bilateral pleural effusions with cardiomegaly. Past medical history; 1. History of cardiomyopathy with poor ejection fraction. 2. History of recent admission to [facility] where he underwent thoracentesis and also had a left-sided chest tube placed. 3. History of chronic renal insufficiency. 4. Chronic atrial fibrillation. 5. COPD. 6. Hypertension. 7. History of lung cancer status post radiation treatment. Medications; reviewed. Allergies; none. Social history; patient is a former smoker. Family history; noncontributory. 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 Review of systems; denies any headache, seizures, dysphagia. Complains of shortness of breath. Denies any chest pain, angina, wheezing, sputum production or hemoptysis. Denies any fever or chills. Denies any abdominal pain, nausea vomiting. Complains of edema. Complains of orthopnea. Complains of dyspnea on minimal exertion. General exam; elderly male, awake, currently in no distress. Requesting Provider: FIDEL GAVIN MD Date/Time of Note DATE: 08/16/18 TIME: 11:42 24 HR Interval Summary Free Text/Dictation Patient's condition is stable. Denies any shortness of breath or chest pain. Underwent right thoracentesis yesterday. General exam; elderly male, awake alert, currently in no distress. HEENT exam; supple neck, positive JVD. No lymphadenopathy. Midline trachea. No thyromegaly. Patient has a multiple dental caps. Chest exam; diminished breath sounds left lower lobe. S1-S2 audible, no murmurs. Irregular rhythm. Abdomen exam; soft, nondistended. No organomegaly. Bowel sounds are audible. Extremity exam; no edema clubbing. 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 Assessment and recommendations; 1. Patient with history of cardiomyopathy admitted for recurrent bilateral pleural effusions, status post right thoracentesis yesterday with significant persistent left pleural effusion. 2. History of chronic atrial fibrillation. 3. Prior history of lung cancer. 4. History of hypertension. Continue current supportive care. Obtain ultrasound-guided left thoracentesis as well. Exam/Review of Systems Exam Vitals Vital Signs Date Temp Pulse Resp B/P (MAP) Pulse Ox O2 O2 Flow FiO2 Time Delivery Rate 08/16/18 98.4 59 18 100/50 96 11:13 (67) 08/15/18 21 20:56 08/15/18 Room Air 13:00 08/14/18 2.0 02:11 Intake and Output 08/15/18 08/15/18 08/16/18 1515:00 23:00 07:00 IntakeIntake Total 550 ml OutputOutput Total 600 ml 200 ml BalanceBalance -50 ml -200 ml Results Result Diagram: 08/14/18 0759 08/15/18 0537 Results 24hrs Laboratory Tests Test 08/15/18 12:00 Body Fluid Total Protein 3.1 Medications Medication Current Medications Ondansetron HCl (Zofran Inj) 4 mg Q6H PRN IV NAUSEA/VOMITING; Start 08/13/18 at 17:00 Acetaminophen (Tylenol Tab) 650 mg Q6H PRN PO .PAIN 1-3 OR TEMP; Start 08/13/18 at 17:00 Docusate Sodium (Colace) 100 mg Q12H PRN PO .CONSTIPATION Last administered on 08/14/18at 08:27; Admin Dose 100 MG; Start 08/13/18 at 17:00 Pantoprazole (Protonix Tab) 40 mg DAILY@06 PO Last administered on 08/16/18at 06:18; Admin Dose 40 MG; Start 08/14/18 at 06:00 Albuterol/ Ipratropium (Duoneb) 3 ml Q6H RESP THERAPY HHN Last administered on 08/15/18at 20:56; Admin Dose 3 ML; Start 08/13/18 at 20:00 Furosemide (Lasix) 40 mg BID DIURETICS IV Last administered on 08/16/18at 06:18; Admin Dose 40 MG; Start 08/13/18 at 21:00 Aspirin (Halfprin) 81 mg DAILY PO Last administered on 08/16/18at 08:25; Admin Dose 81 MG; Start 08/14/18 at 09:00 Atenolol (Tenormin) 12.5 mg BID PO Last administered on 08/16/18 08:25; Admin Dose 12.5 MG; Start 08/13/18 at 21:00 Digoxin (Digoxin) 0.125 mg DAILY@1300 PO Last administered on 08/15/18at 14:37; Admin Dose 0.125 MG; Start 08/14/18 at 13:00 Diltiazem HCl (Cardizem) 30 mg Q8 PO Last administered on 08/16/18 06:19; Admin Dose 30 MG; Start 08/13/18 at 22:00 Bisacodyl (Dulcolax) 10 mg BID PRN PO CONSTIPATION Last administered on 08/15/18at 21:02; Admin Dose 10 MG; Start 08/14/18 at 22:00 Dabigatran (PRADaxa) 75 mg BID PO Last administered on 08/16/18at 08:23; Admin Dose 75 MG; Start 08/15/18 at 21:00 Mupirocin (Bactroban) 1 applic BID TOP ; Start 08/16/18 at 12:00 ALAN DICKERSON 14, 2019 11:43
[2018-08-16] MEDS: MUPIROCIN 2% 22 GM OINT TOP SCH ×2 (12:26→21:29)
[2018-08-16] MEDS: DIGOXIN 0.125 MG TAB PO SCH (14:03)
--- NOTE | 2018-08-16 16:48 | CONS ---
Assessment/Plan Assessment/Plan Hospital Course (Demo Recall) IMPRESSION: 1. Assess for exacerbation, diastolic, acute on chronic. 2. Atrial fibrillation-rate controlled 3. Shortness of breath, possibly due to congestive heart failure, possible may have pneumonia. 4. Pneumonia. 5. Pleural effusions- s/p thoracentesis on R side 6. Renal failure, borderline. 7. Chronic obstructive pulmonary disease. 8. History of lung cancer, status post treatment. Recc: -Tele -continue atenolol and diltiazem as tolerated only with possible need to hold or d/c one antihypertensive given marginal BP today -Continue lasix diuresis -Resumed on pradaxa s/p thoracentesis, ? if patient is to have on opposite side and will need holding of pradaxa again -Continue digoxin Consultation Date/Type/Reason Admit Date/Time Aug 13, 2018 at 10:41 Initial Consult Date 08/14/18 Type of Consult Cardiology Reason for Consultation CHF Requesting Provider: FIDEL GAVIN MD Date/Time of Note DATE: 08/16/18 TIME: 16:43 Exam/Review of Systems Vital Signs Vitals Vital Signs Date Temp Pulse Resp B/P (MAP) Pulse Ox O2 O2 Flow FiO2 Time Delivery Rate 08/16/18 87 16:03 08/16/18 Nasal 2.0 14:00 Cannula 08/16/18 16 99 21 13:36 08/16/18 98.4 100/50 11:13 (67) Intake and Output 08/15/18 08/15/18 08/16/18 1515:00 23:00 07:00 IntakeIntake Total 550 ml OutputOutput Total 600 ml 200 ml BalanceBalance -50 ml -200 ml Exam Exam Review of Systems: CONSTITUTIONAL: No fevers, chills. PULMONARY: No sob CARDIOVASCULAR: No chest pain/palpitations GASTROINTESTINAL: No nausea/vomiting. GENITOURINARY: No hematuria/dysuria. MUSCULOSKELETAL: No myagias/arthalgias. PSYCHIATRIC: The patient denies depression. NEUROLOGIC: No weakness Constitutional: alert Psych: no complaints Head: normocephalic ENMT: mucosa pink and moist Neck: supple, jvd (9 cm water) Respiratory: diminished breath sounds (at bbases/B) Cardiovascular: regular rate and rhythm Gastrointestinal: soft, non-tender Musculoskeletal: muscle tone (normal) Extremities: edema (none) 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: other (No focal deficits) Labs Result Diagram: 08/14/18 0759 08/15/18 0537 Medications Medications Current Medications Ondansetron HCl (Zofran Inj) 4 mg Q6H PRN IV NAUSEA/VOMITING; Start 08/13/18 at 17:00 Acetaminophen (Tylenol Tab) 650 mg Q6H PRN PO .PAIN 1-3 OR TEMP; Start 08/13/18 at 17:00 Docusate Sodium (Colace) 100 mg Q12H PRN PO .CONSTIPATION Last administered on 08/14/18 08:27; Admin Dose 100 MG; Start 08/13/18 at 17:00 Pantoprazole (Protonix Tab) 40 mg DAILY@06 PO Last administered on 08/16/18 06:18; Admin Dose 40 MG; Start 08/14/18 at 06:00 Albuterol/ Ipratropium (Duoneb) 3 ml Q6H RESP THERAPY HHN Last administered on 08/16/18 13:36; Admin Dose 3 ML; Start 08/13/18 at 20:00 Furosemide (Lasix) 40 mg BID DIURETICS IV Last administered on 08/16/18 06:18; Admin Dose 40 MG; Start 08/13/18 at 21:00 Aspirin (Halfprin) 81 mg DAILY PO Last administered on 08/16/18 08:25; Admin Dose 81 MG; Start 08/14/18 at 09:00 Atenolol (Tenormin) 12.5 mg BID PO Last administered on 08/16/18 08:25; Admin Dose 12.5 MG; Start 08/13/18 at 21:00 Digoxin (Digoxin) 0.125 mg DAILY@1300 PO Last administered on 08/16/18 14:03; Admin Dose 0.125 MG; Start 08/14/18 at 13:00 Diltiazem HCl (Cardizem) 30 mg Q8 PO Last administered on 08/16/18 06:19; Admin Dose 30 MG; Start 08/13/18 at 22:00 Bisacodyl (Dulcolax) 10 mg BID PRN PO CONSTIPATION Last administered on 08/15/18at 21:02; Admin Dose 10 MG; Start 08/14/18 at 22:00 Dabigatran (PRADaxa) 75 mg BID PO Last administered on 08/16/18at 08:23; Admin Dose 75 MG; Start 08/15/18 at 21:00 Mupirocin (Bactroban) 1 applic BID TOP Last administered on 08/16/18at 12:26; Admin Dose 1 APPLIC; Start 08/16/18 at 12:00 CECE LOPEZ Aug 16, 2018 16:48
[2018-08-16] MEDS: DOCUSATE SODIUM 100 MG CAP PO PRN (21:33)
[2018-08-17] VITALS (9 sets, daily range): BP systolic 98–146; BP diastolic 54–63; PULSE 79–95; RESP 18–20
[2018-08-17] MEDS: ALBUTEROL/IPRATROPIUM (NEB) 3 ML AMP HHN SCH ×4 (01:41→20:42)
[2018-08-17] MEDS: PANTOPRAZOLE (EC) 40 MG TAB PO SCH (06:17)
[2018-08-17] MEDS: FUROSEMIDE 40 MG INJ IV SCH (06:18)
[2018-08-17] MEDS: DILTIAZEM 30 MG TAB PO SCH ×3 (06:21→21:30)
[2018-08-17] MEDS: ASPIRIN (EC) 81 MG TAB PO SCH (08:52)
[2018-08-17] MEDS: DABIGATRAN 75 MG CAP PO SCH ×2 (08:52→21:30)
[2018-08-17] MEDS: ATENOLOL 25 MG TAB PO SCH ×2 (08:55→21:30)
[2018-08-17] MEDS: MUPIROCIN 2% 22 GM OINT TOP SCH ×2 (08:58→21:30)
--- NOTE | 2018-08-17 09:35 | PN ---
Date/Time of Note Date/Time of Note DATE: 08/17/18 TIME: 09:34 Assessment/Plan VTE Prophylaxis Risk score (from Ns)>0 risk: 3 SCD applied (from [facility] [place] No SCD contraindicated: other Pharmacological prophylaxis: rivaroxaban Lines/Catheters IV Catheter Type (from [facility]): [place] Urinary Cath still in place: No Assessment/Plan Hospital Course 1. Recurrent shortness of breath likely secondary to underlying congestive heart failure vs pneumonia . lasix was reduced to 40 daily from 40 twice daily by home health agency 2. Chronic atrial fibrillation. 3. Hypertension. 4. Hyperlipidemia. 5. History of congestive heart failure and cardiomyopathy. 6. History of lung cancer. 7. Hyperlipidemia. 8. Chronic kidney disease. 9. History of pneumothorax status post chest tube placement. 10. Anemia. 11. Former smoker. 12 hx of pleural effusion status post thoracentesis in past Assessment/Plan -pt is not on hospice care, it was revoked -Pt was pending transfer to SNF, now he and his brother in law Aaron, with whom i have a conversation over the phone, both refused. they want to be d/c home with HH -s/p thoracentesis right side, left cancelled due to low amount of fluid -hold Pradaxa> restart again s/p procedure -Follow with cards/pulmonary recs -With aspirin/diltiazem/atenolol -GI proph.Protonix Result Diagram: 08/17/18 0556 08/17/18 0556 Results 24hrs Laboratory Tests Test 08/17/18 05:56 White Blood Count 8.8 Red Blood Count 3.85 L Hemoglobin 11.1 L Hematocrit 33.4 L Mean Corpuscular Volume 86.8 Mean Corpuscular Hemoglobin 28.8 L Mean Corpuscular Hemoglobin Concent 33.2 Red Cell Distribution Width 14.3 Platelet Count 398 Mean Platelet Volume 9.0 Immature Granulocytes % 0.500 H Neutrophils % 58.9 Lymphocytes % 15.7 Monocytes % 16.5 H Eosinophils % 7.7 H Basophils % 0.7 Nucleated Red Blood Cells % 0.0 Immature Granulocytes # 0.040 H Neutrophils # 5.2 Lymphocytes # 1.4 Monocytes # 1.4 H Eosinophils # 0.7 H Basophils # 0.1 Nucleated Red Blood Cells # 0.0 Sodium Level 132 L Potassium Level 3.3 L Chloride Level 92 L Carbon Dioxide Level 32 H Anion Gap 8 Blood Urea Nitrogen 20 Creatinine 1.27 H Est Glomerular Filtrat Rate mL/min Glucose Level 110 Calcium Level 8.8 Subjective 24 Hr Interval Summary Constitutional: no complaints, improved Exam/Review of Systems Exam Vitals Vital Signs Date Temp Pulse Resp B/P (MAP) Pulse Ox O2 O2 Flow FiO2 Time Delivery Rate 08/17/18 84 08:07 08/17/18 20 94 21 08:04 08/17/18 97.5 98/56 (70) Room Air 07:10 08/17/18 1.0 01:41 Intake and Output 08/16/18 08/16/18 08/17/18 1515:00 23:00 07:00 IntakeIntake Total 500 ml 360 ml OutputOutput Total 600 ml 1000 ml BalanceBalance -100 ml -640 ml Constitutional: alert, oriented ENMT: nl external ears & nose Neck: supple Respiratory: diminished breath sounds Cardiovascular: irregular rhythm, other (afib) Gastrointestinal: soft Skin: ecchymosis Results Results 24hrs Laboratory Tests Test 08/17/18 05:56 White Blood Count 8.8 Red Blood Count 3.85 L Hemoglobin 11.1 L Hematocrit 33.4 L Mean Corpuscular Volume 86.8 Mean Corpuscular Hemoglobin 28.8 L Mean Corpuscular Hemoglobin Concent 33.2 Red Cell Distribution Width 14.3 Platelet Count 398 Mean Platelet Volume 9.0 Immature Granulocytes % 0.500 H Neutrophils % 58.9 Lymphocytes % 15.7 Monocytes % 16.5 H Eosinophils % 7.7 H Basophils % 0.7 Nucleated Red Blood Cells % 0.0 Immature Granulocytes # 0.040 H Neutrophils # 5.2 Lymphocytes # 1.4 Monocytes # 1.4 H Eosinophils # 0.7 H Basophils # 0.1 Nucleated Red Blood Cells # 0.0 Sodium Level 132 L Potassium Level 3.3 L Chloride Level 92 L Carbon Dioxide Level 32 H Anion Gap 8 Blood Urea Nitrogen 20 Creatinine 1.27 H Est Glomerular Filtrat Rate mL/min Glucose Level 110 Calcium Level 8.8 Medications Medication Current Medications Ondansetron HCl (Zofran Inj) 4 mg Q6H PRN IV NAUSEA/VOMITING; Start 08/13/18 at 17:00 Acetaminophen (Tylenol Tab) 650 mg Q6H PRN PO .PAIN 1-3 OR TEMP; Start 08/13/18 at 17:00 Docusate Sodium (Colace) 100 mg Q12H PRN PO .CONSTIPATION Last administered on 08/16/18 21:33; Admin Dose 100 MG; Start 08/13/18 at 17:00 Pantoprazole (Protonix Tab) 40 mg DAILY@06 PO Last administered on 08/17/18 06:17; Admin Dose 40 MG; Start 08/14/18 at 06:00 Albuterol/ Ipratropium (Duoneb) 3 ml Q6H RESP THERAPY HHN Last administered on 08/17/18 07:54; Admin Dose 3 ML; Start 08/13/18 at 20:00 Furosemide (Lasix) 40 mg BID DIURETICS IV Last administered on 08/17/18 06:18; Admin Dose 40 MG; Start 08/13/18 at 21:00 Aspirin (Halfprin) 81 mg DAILY PO Last administered on 08/17/18 08:52; Admin Dose 81 MG; Start 08/14/18 at 09:00 Atenolol (Tenormin) 12.5 mg BID PO Last administered on 08/17/18 08:55; Admin Dose 12.5 MG; Start 08/13/18 at 21:00 Digoxin (Digoxin) 0.125 mg DAILY@1300 PO Last administered on 08/16/18 14:03; Admin Dose 0.125 MG; Start 08/14/18 at 13:00 Diltiazem HCl (Cardizem) 30 mg Q8 PO Last administered on 08/17/18 06:21; Admin Dose 30 MG; Start 08/13/18 at 22:00 Bisacodyl (Dulcolax) 10 mg BID PRN PO CONSTIPATION Last administered on 08/15/18 21:02; Admin Dose 10 MG; Start 08/14/18 at 22:00 Dabigatran (PRADaxa) 75 mg BID PO Last administered on 08/17/18 08:52; Admin Dose 75 MG; Start 08/15/18 at 21:00 Mupirocin (Bactroban) 1 applic BID TOP Last administered on 08/17/18 08:58; Admin Dose 1 APPLIC; Start 08/16/18 at 12:00 JASPER SAHU Aug 17, 2018 09:35
[2018-08-17] MEDS ORDERED: POTASSIUM CHLORIDE 20 MEQ POWDER FOR ORAL SOLN PO ONE (10:00)
[2018-08-17] MEDS: DIGOXIN 0.125 MG TAB PO SCH (14:23)
--- NOTE | 2018-08-17 14:46 | CONS ---
Assessment/Plan Assessment/Plan Assessment/Plan (Daily) DHF Atrial fibrillation Pleural effusions- s/p thoracentesis on R side Renal failure COPD History of lung cancer, status post treatment. Heart failure clinically compensated Continue atenolol and diltiazem Stopped Lasix Continue digoxin Continue Pradaxa Consultation Date/Type/Reason Admit Date/Time Aug 13, 2018 at 10:41 Type of Consult Cardiology Date/Time of Note DATE: 08/17/18 TIME: 14:43 Past Medical History Home Meds Active Scripts Ipratropium-Albuterol (Ipratropium-Albuterol) 0.5-3 Mg/3 Ml Ampul.neb, 3 ML HHN Q4H RESP THERAPY for 30 Days Prov:JASPER SAHU 07/19/18 Reported Medications Albuterol Sulfate* (Proair HFA*) 8.5 Gm Hfa.aer.ad, 2 PUFF INH Q6H PRN for WHEEZING AND SOB, #1 INHALER 08/13/18 Guaifenesin (Guaifenesin) 100 Mg/5 Ml Liquid, 10 ML PO Q8H PRN for COUGH, ML 08/13/18 Hydrocortisone* Topical (Hydrocortisone* Topical) 2.5%-28.3 Gm Cream..g., 1 APPLIC TOP BID PRN for ITCHING, TUB 08/13/18 Diltiazem Hcl* (Cardizem*) 30 Mg Tablet, 30 MG PO Q8 for CHF, #90 TAB HOLD IF SBP<110 OR HR<60 08/13/18 Acetaminophen* (Acetaminophen*) 500 MG Extra Strength Tablet, 500 MG PO Q6H PRN for PAIN AND OR ELEVATED TEMP, TAB 08/13/18 Aspirin* (Aspirin* EC) 81 Mg Tablet.dr, 81 MG PO DAILY, TAB 08/13/18 Digoxin* (Digitek*) 125 Mcg Tablet, 0.125 MG PO DAILY, TAB HOLD IF SBP<110 OR HR<60 08/13/18 Atenolol* (Atenolol*) 25 Mg Tablet, 12.5 MG PO BID, #60 TAB HOLD IF SBP<110 OR HR<60 08/13/18 Furosemide* (Furosemide*) 40 Mg Tablet, 40 MG PO DAILY, TAB 08/13/18 Magnesium Hydroxide* (Milk Of Magnesia*) 400 Mg/5 Ml Oral.susp, 30 ML PO DAILY, ML 08/13/18 Potassium Chloride* (Klor-Con*) 20 Meq Tabsr, 20 MEQ PO DAILY, TAB.SA 07/11/18 Pantoprazole* (Pantoprazole*) 40 Mg Tablet.dr, 40 MG PO DAILY, TAB 07/11/18 Dabigatran Etexilate Mesylate* (Pradaxa*) 75 Mg Cap, 75 MG PO BID, CAP 07/11/18 Discontinued Reported Medications Atenolol* (Atenolol*) 50 Mg Tablet, 50 MG PO BID, #60 TAB 08/13/18 Docusate Sodium* (Colace*) 100 Mg Capsule, 100 MG PO BID, #60 CAP 08/13/18 Magnesium Hydroxide* (Milk Of Magnesia*) 400 Mg/5 Ml Oral.susp, 30 ML PO DAILY PRN for CONSTIPATION, ML 07/11/18 Wizjvwyuewc-P-Nwgfigdptg Hb* (Guaifenesin* DM Syrup) 120 Ml Syrup, 10 ML PO Q6 PRN for COUGH, ML 07/11/18 Digoxin* (Lanoxin*) 0.125 Mg Tablet, 0.125 MG PO DAILY, TAB 02/07/18 Furosemide* (Lasix*) 40 Mg Tablet, 40 MG PO DAILY, TAB 01/31/16 Discontinued Scripts Diltiazem Hcl* (Cardizem*) 30 Mg Tablet, 30 MG PO Q8 for 30 Days, TAB Prov:JASPER SAHU 07/19/18 Atenolol (Tenormin) 25 Mg Tab, 25 MG PO BID for 30 Days, TAB Prov:JASPER SAHU 07/19/18 Medications Current Medications Ondansetron HCl (Zofran Inj) 4 mg Q6H PRN IV NAUSEA/VOMITING; Start 08/13/18 at 17:00 Acetaminophen (Tylenol Tab) 650 mg Q6H PRN PO .PAIN 1-3 OR TEMP; Start 08/13/18 at 17:00 Docusate Sodium (Colace) 100 mg Q12H PRN PO .CONSTIPATION Last administered on 08/16/18at 21:33; Admin Dose 100 MG; Start 08/13/18 at 17:00 Pantoprazole (Protonix Tab) 40 mg DAILY@06 PO Last administered on 08/17/18at 06:17; Admin Dose 40 MG; Start 08/14/18 at 06:00 Albuterol/ Ipratropium (Duoneb) 3 ml Q6H RESP THERAPY HHN Last administered on 08/17/18 13:31; Admin Dose 3 ML; Start 08/13/18 at 20:00 Furosemide (Lasix) 40 mg BID DIURETICS IV Last administered on 08/17/18 06:18; Admin Dose 40 MG; Start 08/13/18 at 21:00 Aspirin (Halfprin) 81 mg DAILY PO Last administered on 08/17/18 08:52; Admin Dose 81 MG; Start 08/14/18 at 09:00 Atenolol (Tenormin) 12.5 mg BID PO Last administered on 08/17/18 08:55; Admin Dose 12.5 MG; Start 08/13/18 at 21:00 Digoxin (Digoxin) 0.125 mg DAILY@1300 PO Last administered on 08/17/18 14:23; Admin Dose 0.125 MG; Start 08/14/18 at 13:00 Diltiazem HCl (Cardizem) 30 mg Q8 PO Last administered on 08/17/18 14:24; Admin Dose 30 MG; Start 08/13/18 at 22:00 Bisacodyl (Dulcolax) 10 mg BID PRN PO CONSTIPATION Last administered on 08/15/18 21:02; Admin Dose 10 MG; Start 08/14/18 at 22:00 Dabigatran (PRADaxa) 75 mg BID PO Last administered on 08/17/18 08:52; Admin Dose 75 MG; Start 08/15/18 at 21:00 Mupirocin (Bactroban) 1 applic BID TOP Last administered on 08/17/18 08:58; Admin Dose 1 APPLIC; Start 08/16/18 at 12:00 Allergies: Coded Allergies: No Known Allergies (Verified Allergy, Unknown, 08/14/18) Past Surgical History Past Surgical Hx: coronary bypass surgery Social History Smoking Status: Current every day smoker Exam/Review of Systems Vital Signs Vitals Vital Signs Date Temp Pulse Resp B/P (MAP) Pulse Ox O2 O2 Flow FiO2 Time Delivery Rate 08/17/18 1.0 14:03 08/17/18 87 20 98 Nasal 21 13:41 Cannula 08/17/18 97.8 130/61 11:20 (84) Intake and Output 08/16/18 08/16/18 08/17/18 1515:00 23:00 07:00 IntakeIntake Total 500 ml 360 ml OutputOutput Total 600 ml 1000 ml BalanceBalance -100 ml -640 ml Exam Constitutional: alert, oriented Head: normocephalic, atraumatic Neck: supple, non-tender Respiratory: clear to auscultation Cardiovascular: regular rate and rhythm (no m/r/g) Gastrointestinal: soft Extremities: normal pulses Labs Result Diagram: 08/17/18 0556 08/17/18 0556 Results 24hrs Laboratory Tests Test 08/17/18 05:56 White Blood Count 8.8 Red Blood Count 3.85 L Hemoglobin 11.1 L Hematocrit 33.4 L Mean Corpuscular Volume 86.8 Mean Corpuscular Hemoglobin 28.8 L Mean Corpuscular Hemoglobin Concent 33.2 Red Cell Distribution Width 14.3 Platelet Count 398 Mean Platelet Volume 9.0 Immature Granulocytes % 0.500 H Neutrophils % 58.9 Lymphocytes % 15.7 Monocytes % 16.5 H Eosinophils % 7.7 H Basophils % 0.7 Nucleated Red Blood Cells % 0.0 Immature Granulocytes # 0.040 H Neutrophils # 5.2 Lymphocytes # 1.4 Monocytes # 1.4 H Eosinophils # 0.7 H Basophils # 0.1 Nucleated Red Blood Cells # 0.0 Sodium Level 132 L Potassium Level 3.3 L Chloride Level 92 L Carbon Dioxide Level 32 H Anion Gap 8 Blood Urea Nitrogen 20 Creatinine 1.27 H Est Glomerular Filtrat Rate mL/min Glucose Level 110 Calcium Level 8.8 Medications Medications Current Medications Ondansetron HCl (Zofran Inj) 4 mg Q6H PRN IV NAUSEA/VOMITING; Start 08/13/18 at 17:00 Acetaminophen (Tylenol Tab) 650 mg Q6H PRN PO .PAIN 1-3 OR TEMP; Start 08/13/18 at 17:00 Docusate Sodium (Colace) 100 mg Q12H PRN PO .CONSTIPATION Last administered on 08/16/18at 21:33; Admin Dose 100 MG; Start 08/13/18 at 17:00 Pantoprazole (Protonix Tab) 40 mg DAILY@06 PO Last administered on 08/17/18at 06:17; Admin Dose 40 MG; Start 08/14/18 at 06:00 Albuterol/ Ipratropium (Duoneb) 3 ml Q6H RESP THERAPY HHN Last administered on 08/17/18 13:31; Admin Dose 3 ML; Start 08/13/18 at 20:00 Furosemide (Lasix) 40 mg BID DIURETICS IV Last administered on 08/17/18 06:18; Admin Dose 40 MG; Start 08/13/18 at 21:00 Aspirin (Halfprin) 81 mg DAILY PO Last administered on 08/17/18 08:52; Admin Dose 81 MG; Start 08/14/18 at 09:00 Atenolol (Tenormin) 12.5 mg BID PO Last administered on 08/17/18 08:55; Admin Dose 12.5 MG; Start 08/13/18 at 21:00 Digoxin (Digoxin) 0.125 mg DAILY@1300 PO Last administered on 08/17/18 14:23; Admin Dose 0.125 MG; Start 08/14/18 at 13:00 Diltiazem HCl (Cardizem) 30 mg Q8 PO Last administered on 08/17/18 14:24; Admin Dose 30 MG; Start 08/13/18 at 22:00 Bisacodyl (Dulcolax) 10 mg BID PRN PO CONSTIPATION Last administered on 08/15/18 21:02; Admin Dose 10 MG; Start 08/14/18 at 22:00 Dabigatran (PRADaxa) 75 mg BID PO Last administered on 08/17/18 08:52; Admin Dose 75 MG; Start 08/15/18 at 21:00 Mupirocin (Bactroban) 1 applic BID TOP Last administered on 08/17/18 08:58; Admin Dose 1 APPLIC; Start 08/16/18 at 12:00 ALHAJI DONALD M.D. Aug 17, 2018 14:46
--- NOTE | 2018-08-17 16:37 | CONS ---
Consult Date/Type/Reason Admit Date/Time Aug 13, 2018 at 10:41 Initial Consult Date 08/14/18 Type of Consultation: Pulm Requesting Provider: FIDEL GAVIN MD Date/Time of Note DATE: 08/17/18 TIME: 16:35 Subjective No events. Objective Vitals Vital Signs Date Temp Pulse Resp B/P (MAP) Pulse Ox O2 O2 Flow FiO2 Time Delivery Rate 08/17/18 90 16:01 08/17/18 97.5 20 146/63 99 Room Air 15:14 (90) 08/17/18 1.0 14:03 08/17/18 21 13:41 Intake and Output 08/16/18 08/16/18 08/17/18 1515:00 23:00 07:00 IntakeIntake Total 500 ml 360 ml OutputOutput Total 600 ml 1000 ml BalanceBalance -100 ml -640 ml Exam HEENT: Neck supple; no JVD; no LAD CVS: RRR, S1 and S2 CHEST: Decreased BS b/l ABD: Soft, NT, + BS EXT: No c/c/e Results/Medications Result Diagram: 08/17/18 0556 08/17/18 0556 Results 24 hrs Laboratory Tests Test 08/17/18 05:56 White Blood Count 8.8 Red Blood Count 3.85 L Hemoglobin 11.1 L Hematocrit 33.4 L Mean Corpuscular Volume 86.8 Mean Corpuscular Hemoglobin 28.8 L Mean Corpuscular Hemoglobin Concent 33.2 Red Cell Distribution Width 14.3 Platelet Count 398 Mean Platelet Volume 9.0 Immature Granulocytes % 0.500 H Neutrophils % 58.9 Lymphocytes % 15.7 Monocytes % 16.5 H Eosinophils % 7.7 H Basophils % 0.7 Nucleated Red Blood Cells % 0.0 Immature Granulocytes # 0.040 H Neutrophils # 5.2 Lymphocytes # 1.4 Monocytes # 1.4 H Eosinophils # 0.7 H Basophils # 0.1 Nucleated Red Blood Cells # 0.0 Sodium Level 132 L Potassium Level 3.3 L Chloride Level 92 L Carbon Dioxide Level 32 H Anion Gap 8 Blood Urea Nitrogen 20 Creatinine 1.27 H Est Glomerular Filtrat Rate mL/min Glucose Level 110 Calcium Level 8.8 Home Meds Active Scripts Ipratropium-Albuterol (Ipratropium-Albuterol) 0.5-3 Mg/3 Ml Ampul.neb, 3 ML HHN Q4H RESP THERAPY for 30 Days Prov:JASPER SAHU 07/19/18 Reported Medications Albuterol Sulfate* (Proair HFA*) 8.5 Gm Hfa.aer.ad, 2 PUFF INH Q6H PRN for WHEEZING AND SOB, #1 INHALER 08/13/18 Guaifenesin (Guaifenesin) 100 Mg/5 Ml Liquid, 10 ML PO Q8H PRN for COUGH, ML 08/13/18 Hydrocortisone* Topical (Hydrocortisone* Topical) 2.5%-28.3 Gm Cream..g., 1 APPLIC TOP BID PRN for ITCHING, TUB 08/13/18 Diltiazem Hcl* (Cardizem*) 30 Mg Tablet, 30 MG PO Q8 for CHF, #90 TAB HOLD IF SBP<110 OR HR<60 08/13/18 Acetaminophen* (Acetaminophen*) 500 MG Extra Strength Tablet, 500 MG PO Q6H PRN for PAIN AND OR ELEVATED TEMP, TAB 08/13/18 Aspirin* (Aspirin* EC) 81 Mg Tablet.dr, 81 MG PO DAILY, TAB 08/13/18 Digoxin* (Digitek*) 125 Mcg Tablet, 0.125 MG PO DAILY, TAB HOLD IF SBP<110 OR HR<60 08/13/18 Atenolol* (Atenolol*) 25 Mg Tablet, 12.5 MG PO BID, #60 TAB HOLD IF SBP<110 OR HR<60 08/13/18 Furosemide* (Furosemide*) 40 Mg Tablet, 40 MG PO DAILY, TAB 08/13/18 Magnesium Hydroxide* (Milk Of Magnesia*) 400 Mg/5 Ml Oral.susp, 30 ML PO DAILY, ML 08/13/18 Potassium Chloride* (Klor-Con*) 20 Meq Tabsr, 20 MEQ PO DAILY, TAB.SA 07/11/18 Pantoprazole* (Pantoprazole*) 40 Mg Tablet.dr, 40 MG PO DAILY, TAB 07/11/18 Dabigatran Etexilate Mesylate* (Pradaxa*) 75 Mg Cap, 75 MG PO BID, CAP 07/11/18 Discontinued Reported Medications Atenolol* (Atenolol*) 50 Mg Tablet, 50 MG PO BID, #60 TAB 08/13/18 Docusate Sodium* (Colace*) 100 Mg Capsule, 100 MG PO BID, #60 CAP 08/13/18 Magnesium Hydroxide* (Milk Of Magnesia*) 400 Mg/5 Ml Oral.susp, 30 ML PO DAILY PRN for CONSTIPATION, ML 07/11/18 [id number] Hb* (Guaifenesin* DM Syrup) 120 Ml Syrup, 10 ML PO Q6 PRN for COUGH, ML 07/11/18 Digoxin* (Lanoxin*) 0.125 Mg Tablet, 0.125 MG PO DAILY, TAB 02/07/18 Furosemide* (Lasix*) 40 Mg Tablet, 40 MG PO DAILY, TAB 01/31/16 Discontinued Scripts Diltiazem Hcl* (Cardizem*) 30 Mg Tablet, 30 MG PO Q8 for 30 Days, TAB Prov:JASPER SAHU 07/19/18 Atenolol (Tenormin) 25 Mg Tab, 25 MG PO BID for 30 Days, TAB Prov:JASPER SAHU 07/19/18 Medications Current Medications Ondansetron HCl (Zofran Inj) 4 mg Q6H PRN IV NAUSEA/VOMITING; Start 08/13/18 at 17:00 Acetaminophen (Tylenol Tab) 650 mg Q6H PRN PO .PAIN 1-3 OR TEMP; Start 08/13/18 at 17:00 Docusate Sodium (Colace) 100 mg Q12H PRN PO .CONSTIPATION Last administered on 08/16/18at 21:33; Admin Dose 100 MG; Start 08/13/18 at 17:00 Pantoprazole (Protonix Tab) 40 mg DAILY@06 PO Last administered on 08/17/18at 06:17; Admin Dose 40 MG; Start 08/14/18 at 06:00 Albuterol/ Ipratropium (Duoneb) 3 ml Q6H RESP THERAPY HHN Last administered on 08/17/18at 13:31; Admin Dose 3 ML; Start 08/13/18 at 20:00 Aspirin (Halfprin) 81 mg DAILY PO Last administered on 08/17/18at 08:52; Admin Dose 81 MG; Start 08/14/18 at 09:00 Atenolol (Tenormin) 12.5 mg BID PO Last administered on 08/17/18at 08:55; Admin Dose 12.5 MG; Start 08/13/18 at 21:00 Digoxin (Digoxin) 0.125 mg DAILY@1300 PO Last administered on 08/17/18 14:23; Admin Dose 0.125 MG; Start 08/14/18 at 13:00 Diltiazem HCl (Cardizem) 30 mg Q8 PO Last administered on 08/17/18 14:24; Admin Dose 30 MG; Start 08/13/18 at 22:00 Bisacodyl (Dulcolax) 10 mg BID PRN PO CONSTIPATION Last administered on 08/15/18at 21:02; Admin Dose 10 MG; Start 08/14/18 at 22:00 Dabigatran (PRADaxa) 75 mg BID PO Last administered on 08/17/18 08:52; Admin Dose 75 MG; Start 08/15/18 at 21:00 Mupirocin (Bactroban) 1 applic BID TOP Last administered on 08/17/18 08:58; Admin Dose 1 APPLIC; Start 08/16/18 at 12:00 Assessment/Plan Assessment/Plan (Daily) IMP: 1. ADHF 2. Atrial fibrillation 3. Pleural effusions- s/p thoracentesis on R side 4. Renal failure 5. COPD 6. History of lung cancer, status post treatment. RECS: 1. Follow-up pleural fluid studies from right thoracentesis. Currently, only total protein is noted in system. JOSEE MCCLOUD MD Aug 17, 2018 16:37
[2018-08-18] MEDS: ALBUTEROL/IPRATROPIUM (NEB) 3 ML AMP HHN SCH ×4 (01:25→21:18)
[2018-08-18 01:32] VITALS: BP 110/55; PULSE 68; RESP 18
[2018-08-18] MEDS: PANTOPRAZOLE (EC) 40 MG TAB PO SCH (05:19)
[2018-08-18] MEDS: DILTIAZEM 30 MG TAB PO SCH ×3 (05:19→21:30)
[2018-08-18 07:41] VITALS: BP 134/60; PULSE 79; RESP 19
[2018-08-18] MEDS: ASPIRIN (EC) 81 MG TAB PO SCH (08:46)
[2018-08-18] MEDS: ATENOLOL 25 MG TAB PO SCH ×2 (08:47→20:32)
[2018-08-18] MEDS: MUPIROCIN 2% 22 GM OINT TOP SCH ×2 (08:47→20:36)
[2018-08-18] MEDS: DABIGATRAN 75 MG CAP PO SCH ×2 (08:47→20:32)
[2018-08-18] MEDS: DOCUSATE SODIUM 100 MG CAP PO PRN (08:57)
--- NOTE | 2018-08-18 10:54 | PN ---
Date/Time of Note Date/Time of Note DATE: 08/18/18 TIME: 10:52 Assessment/Plan VTE Prophylaxis Risk score (from Ns)>0 risk: 3 SCD applied (from Ns): No SCD contraindicated: low risk/ambulating Pharmacological prophylaxis: rivaroxaban Lines/Catheters IV Catheter Type (from [facility] [place] Urinary Cath still in place: No Assessment/Plan Hospital Course 1. Recurrent shortness of breath likely secondary to underlying congestive heart failure vs pneumonia . lasix was reduced to 40 daily from 40 twice daily by home health agency 2. Chronic atrial fibrillation. 3. Hypertension. 4. Hyperlipidemia. 5. History of congestive heart failure and cardiomyopathy. 6. History of lung cancer. 7. Hyperlipidemia. 8. Chronic kidney disease. 9. History of pneumothorax status post chest tube placement. 10. Anemia. 11. Former smoker. 12 hx of pleural effusion status post thoracentesis in past Assessment/Plan -ambulate -c/w PT -Pt was pending transfer to SNF, -s/p thoracentesis right side, left cancelled due to low amount of fluid -c/w Pradaxa -Follow with cards/pulmonary recs -With aspirin/diltiazem/atenolol -GI proph.Protonix Result Diagram: 08/17/18 0556 08/17/18 0556 Subjective 24 Hr Interval Summary Free Text/Dictation muscle weakness Constitutional: improved Musculoskeletal: bone/joint pain Exam/Review of Systems Exam Vitals Vital Signs Date Temp Pulse Resp B/P (MAP) Pulse Ox O2 O2 Flow FiO2 Time Delivery Rate 08/18/18 97.5 79 19 134/60 94 Room Air 07:41 (84) 08/18/18 21 01:27 08/17/18 2.0 20:00 Intake and Output 08/17/18 08/17/18 08/18/18 1515:00 23:00 07:00 IntakeIntake Total 960 ml OutputOutput Total 100 ml 680 ml 100 ml BalanceBalance -100 ml 280 ml -100 ml Constitutional: alert, oriented, frail Respiratory: clear to auscultation Cardiovascular: regular rate and rhythm Gastrointestinal: soft Musculoskeletal: nl extremities to inspection Skin: other (pale) Medications Medication Current Medications Ondansetron HCl (Zofran Inj) 4 mg Q6H PRN IV NAUSEA/VOMITING; Start 08/13/18 at 17:00 Acetaminophen (Tylenol Tab) 650 mg Q6H PRN PO .PAIN 1-3 OR TEMP; Start 08/13/18 at 17:00 Docusate Sodium (Colace) 100 mg Q12H PRN PO .CONSTIPATION Last administered on 08/18/18 08:57; Admin Dose 100 MG; Start 08/13/18 at 17:00 Pantoprazole (Protonix Tab) 40 mg DAILY@06 PO Last administered on 08/18/18 05:19; Admin Dose 40 MG; Start 08/14/18 at 06:00 Albuterol/ Ipratropium (Duoneb) 3 ml Q6H RESP THERAPY HHN Last administered on 08/18/18 10:00; Admin Dose 3 ML; Start 08/13/18 at 20:00 Aspirin (Halfprin) 81 mg DAILY PO Last administered on 08/18/18 08:46; Admin Dose 81 MG; Start 08/14/18 at 09:00 Atenolol (Tenormin) 12.5 mg BID PO Last administered on 08/18/18 08:47; Admin Dose 12.5 MG; Start 08/13/18 at 21:00 Digoxin (Digoxin) 0.125 mg DAILY@1300 PO Last administered on 08/17/18 14:23; Admin Dose 0.125 MG; Start 08/14/18 at 13:00 Diltiazem HCl (Cardizem) 30 mg Q8 PO Last administered on 08/17/18 21:30; Admin Dose 30 MG; Start 08/13/18 at 22:00 Bisacodyl (Dulcolax) 10 mg BID PRN PO CONSTIPATION Last administered on 08/15/18 21:02; Admin Dose 10 MG; Start 08/14/18 at 22:00 Dabigatran (PRADaxa) 75 mg BID PO Last administered on 08/18/18 08:47; Admin Dose 75 MG; Start 08/15/18 at 21:00 Mupirocin (Bactroban) 1 applic BID TOP Last administered on 08/18/18 08:47; Admin Dose 1 APPLIC; Start 08/16/18 at 12:00 JASPER SAHU Aug 18, 2018 10:54
[2018-08-18 14:04] VITALS: BP 128/57; PULSE 92; RESP 18
[2018-08-18] MEDS: DIGOXIN 0.125 MG TAB PO SCH (14:08)
--- NOTE | 2018-08-18 14:43 | CONS ---
Assessment/Plan Assessment/Plan Assessment/Plan (Daily) DHF Atrial fibrillation Pleural effusions- s/p thoracentesis on R side Renal failure COPD History of lung cancer, status post treatment. Heart failure clinically compensated Continue atenolol and diltiazem Stopped Lasix Continue digoxin Continue Pradaxa Consultation Date/Type/Reason Admit Date/Time Aug 13, 2018 at 10:41 Initial Consult Date 08/14/18 Type of Consult Cardiology Requesting Provider: FIDEL GAVIN MD Date/Time of Note DATE: 08/18/18 TIME: 14:42 Exam/Review of Systems Vital Signs Vitals Vital Signs Date Temp Pulse Resp B/P (MAP) Pulse Ox O2 O2 Flow FiO2 Time Delivery Rate 08/18/18 97.6 92 18 128/57 99 Room Air 14:04 (80) 08/18/18 21 01:27 08/17/18 2.0 20:00 Intake and Output 08/17/18 08/17/18 08/18/18 1515:00 23:00 07:00 IntakeIntake Total 960 ml OutputOutput Total 100 ml 680 ml 100 ml BalanceBalance -100 ml 280 ml -100 ml Exam Exam Head: normocephalic, atraumatic Neck: supple, non-tender Respiratory: clear to auscultation Cardiovascular: regular rate and rhythm (no m/r/g) Gastrointestinal: soft BS present Labs Result Diagram: 08/17/1856 08/17/18 0556 Medications Medications Current Medications Ondansetron HCl (Zofran Inj) 4 mg Q6H PRN IV NAUSEA/VOMITING; Start 08/13/18 at 17:00 Acetaminophen (Tylenol Tab) 650 mg Q6H PRN PO .PAIN 1-3 OR TEMP; Start 08/13/18 at 17:00 Docusate Sodium (Colace) 100 mg Q12H PRN PO .CONSTIPATION Last administered on 08/18/18at 08:57; Admin Dose 100 MG; Start 08/13/18 at 17:00 Pantoprazole (Protonix Tab) 40 mg DAILY@06 PO Last administered on 08/18/18at 05:19; Admin Dose 40 MG; Start 08/14/18 at 06:00 Albuterol/ Ipratropium (Duoneb) 3 ml Q6H RESP THERAPY HHN Last administered on 6/16/19at 10:00; Admin Dose 3 ML; Start 08/13/18 at 20:00 Aspirin (Halfprin) 81 mg DAILY PO Last administered on 08/18/18 08:46; Admin Dose 81 MG; Start 08/14/18 at 09:00 Atenolol (Tenormin) 12.5 mg BID PO Last administered on 08/18/18 08:47; Admin Dose 12.5 MG; Start 08/13/18 at 21:00 Digoxin (Digoxin) 0.125 mg DAILY@1300 PO Last administered on 08/18/18 14:08; Admin Dose 0.125 MG; Start 08/14/18 at 13:00 Diltiazem HCl (Cardizem) 30 mg Q8 PO Last administered on 08/18/18 14:08; Admin Dose 30 MG; Start 08/13/18 at 22:00 Bisacodyl (Dulcolax) 10 mg BID PRN PO CONSTIPATION Last administered on 08/15/18 21:02; Admin Dose 10 MG; Start 08/14/18 at 22:00 Dabigatran (PRADaxa) 75 mg BID PO Last administered on 08/18/18 08:47; Admin Dose 75 MG; Start 08/15/18 at 21:00 Mupirocin (Bactroban) 1 applic BID TOP Last administered on 08/18/18 08:47; Admin Dose 1 APPLIC; Start 08/16/18 at 12:00 ALHAJI DONALD M.D. Aug 18, 2018 14:43
[2018-08-18 14:55] VITALS: BP 126/58; PULSE 85; RESP 26
--- NOTE | 2018-08-18 15:21 | CONS ---
Consult Date/Type/Reason Admit Date/Time Aug 13, 2018 at 10:41 Initial Consult Date 08/14/18 Type of Consultation: Pulm Requesting Provider: FIDEL GAVIN MD Date/Time of Note DATE: 08/18/18 TIME: 15:20 Subjective No events. Objective Vitals Vital Signs Date Temp Pulse Resp B/P (MAP) Pulse Ox O2 O2 Flow FiO2 Time Delivery Rate 08/18/18 86 21 97 21 15:12 08/18/18 97.7 126/58 Room Air 14:55 (80) 08/17/18 2.0 20:00 Intake and Output 08/17/18 08/17/18 08/18/18 1515:00 23:00 07:00 IntakeIntake Total 960 ml OutputOutput Total 100 ml 680 ml 100 ml BalanceBalance -100 ml 280 ml -100 ml Exam HEENT: Neck supple; no JVD; no LAD CVS: RRR, S1 and S2 CHEST: Decreased BS b/l ABD: Soft, NT, + BS EXT: No c/c/e Results/Medications Result Diagram: 08/17/18 0556 08/17/18 05 Home Meds Active Scripts Ipratropium-Albuterol (Ipratropium-Albuterol) 0.5-3 Mg/3 Ml Ampul.neb, 3 ML HHN Q4H RESP THERAPY for 30 Days Prov:JASPER BELTRAN 07/19/18 Reported Medications Albuterol Sulfate* (Proair HFA*) 8.5 Gm Hfa.aer.ad, 2 PUFF INH Q6H PRN for WHEEZING AND SOB, #1 INHALER 08/13/18 Guaifenesin (Guaifenesin) 100 Mg/5 Ml Liquid, 10 ML PO Q8H PRN for COUGH, ML 08/13/18 Hydrocortisone* Topical (Hydrocortisone* Topical) 2.5%-28.3 Gm Cream..g., 1 APPL IC TOP BID PRN for ITCHING, TUB 08/13/18 Diltiazem Hcl* (Cardizem*) 30 Mg Tablet, 30 MG PO Q8 for CHF, #90 TAB HOLD IF SBP<110 OR HR<60 08/13/18 Acetaminophen* (Acetaminophen*) 500 MG Extra Strength Tablet, 500 MG PO Q6H PRN for PAIN AND OR ELEVATED TEMP, TAB 08/13/18 Aspirin* (Aspirin* EC) 81 Mg Tablet.dr, 81 MG PO DAILY, TAB 08/13/18 Digoxin* (Digitek*) 125 Mcg Tablet, 0.125 MG PO DAILY, TAB HOLD IF SBP<110 OR HR<60 08/13/18 Atenolol* (Atenolol*) 25 Mg Tablet, 12.5 MG PO BID, #60 TAB HOLD IF SBP<110 OR HR<60 08/13/18 Furosemide* (Furosemide*) 40 Mg Tablet, 40 MG PO DAILY, TAB 08/13/18 Magnesium Hydroxide* (Milk Of Magnesia*) 400 Mg/5 Ml Oral.susp, 30 ML PO DAILY, ML 08/13/18 Potassium Chloride* (Klor-Con*) 20 Meq Tabsr, 20 MEQ PO DAILY, TAB.SA 07/11/18 Pantoprazole* (Pantoprazole*) 40 Mg Tablet.dr, 40 MG PO DAILY, TAB 07/11/18 Dabigatran Etexilate Mesylate* (Pradaxa*) 75 Mg Cap, 75 MG PO BID, CAP 07/11/18 Discontinued Reported Medications Atenolol* (Atenolol*) 50 Mg Tablet, 50 MG PO BID, #60 TAB 08/13/18 Docusate Sodium* (Colace*) 100 Mg Capsule, 100 MG PO BID, #60 CAP 08/13/18 Magnesium Hydroxide* (Milk Of Magnesia*) 400 Mg/5 Ml Oral.susp, 30 ML PO DAILY PRN for CONSTIPATION, ML 07/11/18 Wjcbbceetjl-M-Ofwxeflemb Hb* (Guaifenesin* DM Syrup) 120 Ml Syrup, 10 ML PO Q6 PRN for COUGH, ML 07/11/18 Digoxin* (Lanoxin*) 0.125 Mg Tablet, 0.125 MG PO DAILY, TAB 02/07/18 Furosemide* (Lasix*) 40 Mg Tablet, 40 MG PO DAILY, TAB 01/31/16 Discontinued Scripts Diltiazem Hcl* (Cardizem*) 30 Mg Tablet, 30 MG PO Q8 for 30 Days, TAB Prov:MEZENTSEVA,JASPER 07/19/18 Atenolol (Tenormin) 25 Mg Tab, 25 MG PO BID for 30 Days, TAB Prov:MEZENTSEVA,JASPER 07/19/18 Medications Current Medications Ondansetron HCl (Zofran Inj) 4 mg Q6H PRN IV NAUSEA/VOMITING; Start 08/13/18 at 17:00 Acetaminophen (Tylenol Tab) 650 mg Q6H PRN PO .PAIN 1-3 OR TEMP; Start 08/13/18 at 17:00 Docusate Sodium (Colace) 100 mg Q12H PRN PO .CONSTIPATION Last administered on 08/18/18 08:57; Admin Dose 100 MG; Start 08/13/18 at 17:00 Pantoprazole (Protonix Tab) 40 mg DAILY@06 PO Last administered on 08/18/18 05:19; Admin Dose 40 MG; Start 08/14/18 at 06:00 Albuterol/ Ipratropium (Duoneb) 3 ml Q6H RESP THERAPY HHN Last administered on 08/18/18 15:11; Admin Dose 3 ML; Start 08/13/18 at 20:00 Aspirin (Halfprin) 81 mg DAILY PO Last administered on 08/18/18 08:46; Admin Dose 81 MG; Start 08/14/18 at 09:00 Atenolol (Tenormin) 12.5 mg BID PO Last administered on 08/18/18 08:47; Admin Dose 12.5 MG; Start 08/13/18 at 21:00 Digoxin (Digoxin) 0.125 mg DAILY@1300 PO Last administered on 08/18/18 14:08; Admin Dose 0.125 MG; Start 08/14/18 at 13:00 Diltiazem HCl (Cardizem) 30 mg Q8 PO Last administered on 08/18/18 14:08; Admin Dose 30 MG; Start 08/13/18 at 22:00 Bisacodyl (Dulcolax) 10 mg BID PRN PO CONSTIPATION Last administered on 08/15/18 21:02; Admin Dose 10 MG; Start 08/14/18 at 22:00 Dabigatran (PRADaxa) 75 mg BID PO Last administered on 08/18/18 08:47; Admin Dose 75 MG; Start 08/15/18 at 21:00 Mupirocin (Bactroban) 1 applic BID TOP Last administered on 08/18/18 08:47; Admin Dose 1 APPLIC; Start 08/16/18 at 12:00 Assessment/Plan Assessment/Plan (Daily) IMP: 1. ADHF 2. Atrial fibrillation 3. Pleural effusions- s/p thoracentesis on R side 4. Renal failure 5. COPD 6. History of lung cancer, status post treatment. RECS: 1. Follow-up pleural fluid studies from right thoracentesis. Currently, only total protein is noted in system. 2. Awaiting SNF transfer 3. Replete JOSEE Altman MD Aug 18, 2018 15:21
[2018-08-18 19:24] VITALS: BP 140/63; PULSE 99; RESP 18
[2018-08-19 01:01] VITALS: BP 116/57; PULSE 81; RESP 18
[2018-08-19] MEDS: ALBUTEROL/IPRATROPIUM (NEB) 3 ML AMP HHN SCH ×4 (01:03→20:19)
[2018-08-19] MEDS: PANTOPRAZOLE (EC) 40 MG TAB PO SCH (05:37)
[2018-08-19] MEDS: DILTIAZEM 30 MG TAB PO SCH ×3 (05:37→21:07)
[2018-08-19] MEDS: DOCUSATE SODIUM 100 MG CAP PO PRN (05:44)
[2018-08-19 07:51] VITALS: BP 131/62; PULSE 72; RESP 20
[2018-08-19] MEDS: ASPIRIN (EC) 81 MG TAB PO SCH (09:16)
[2018-08-19] MEDS: DABIGATRAN 75 MG CAP PO SCH ×2 (09:16→21:07)
[2018-08-19] MEDS: ATENOLOL 25 MG TAB PO SCH ×2 (09:16→21:08)
[2018-08-19] MEDS: MUPIROCIN 2% 22 GM OINT TOP SCH ×2 (09:16→22:53)
--- NOTE | 2018-08-19 11:51 | CONS ---
Consultation Date/Type/Reason Admit Date/Time Aug 13, 2018 at 10:41 Initial Consult Date 08/14/18 Type of Consult Pulmonary Patient is an 78-year-old male who came into the hospital with a few days history of increasing shortness of breath. Patient complains of very scant cough without any sputum production, fever, hemoptysis. Upon evaluation chest x-ray was done which is showing moderate to large bilateral pleural effusions with cardiomegaly. Past medical history; 1. History of cardiomyopathy with poor ejection fraction. 2. History of recent admission to [facility] where he underwent thoracentesis and also had a left-sided chest tube placed. 3. History of chronic renal insufficiency. 4. Chronic atrial fibrillation. 5. COPD. 6. Hypertension. 7. History of lung cancer status post radiation treatment. Medications; reviewed. Allergies; none. Social history; patient is a former smoker. Family history; noncontributory. 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 Review of systems; denies any headache, seizures, dysphagia. Complains of shortness of breath. Denies any chest pain, angina, wheezing, sputum production or hemoptysis. Denies any fever or chills. Denies any abdominal pain, nausea vomiting. Complains of edema. Complains of orthopnea. Complains of dyspnea on minimal exertion. General exam; elderly male, awake, currently in no distress. Requesting Provider: FIDEL GAVIN MD Date/Time of Note DATE: 08/19/18 TIME: 11:49 24 HR Interval Summary Free Text/Dictation Patient's condition is stable. Has remained hemodynamically stable. General exam; elderly male, currently in no distress. H EENT exam; supple neck, positive JVD. No lymphadenopathy. Midline trachea. No neck masses. Chest exam; diminished breath sounds bilaterally. S1-S2 audible, no murmurs. Irregular rhythm. Abdomen exam; soft, nontender. No organomegaly. Bowel sounds audible. Extremity exam; no edema. RUG [employer] ST[employer]ER exam; no focal deficit. Assessment and recommendations; 1. Patient admitted with shortness of breath due to recurrent pleural effusion status post right thoracentesis with significant improvement in symptoms. 2. CHF. 3. History of lung cancer. 4. Chronic atrial for ablation. 5. COPD. 6. Small left pleural effusion per ultrasound. Continue current supportive care. Consider discharge. Obtain follow-up chest x-ray in a week to 10 days time to assess for any recurrence of right pleural effusion. Exam/Review of Systems Exam Vitals Vital Signs Date Temp Pulse Resp B/P (MAP) Pulse Ox O2 O2 Flow FiO2 Time Delivery Rate 08/19/18 97.4 72 20 131/62 97 07:51 (85) 08/19/18 21 01:03 08/18/18 Nasal 1.0 21:05 Cannula Intake and Output 08/18/18 08/18/18 08/19/18 1515:00 23:00 07:00 IntakeIntake Total 360 ml 240 ml OutputOutput Total 160 ml 180 ml BalanceBalance 200 ml 60 ml Results Result Diagram: 08/19/18 0431 08/19/18 0431 Results 24hrs Laboratory Tests Test 08/19/18 04:31 White Blood Count 10.1 Red Blood Count 3.63 L Hemoglobin 10.2 L Hematocrit 31.0 L Mean Corpuscular Volume 85.4 Mean Corpuscular Hemoglobin 28.1 L Mean Corpuscular Hemoglobin Concent 32.9 Red Cell Distribution Width 14.2 Platelet Count 446 H Mean Platelet Volume 9.0 Immature Granulocytes % 0.500 H Neutrophils % 62.6 Lymphocytes % 16.4 Monocytes % 14.9 H Eosinophils % 5.0 Basophils % 0.6 Nucleated Red Blood Cells % 0.0 Immature Granulocytes # 0.050 H Neutrophils # 6.3 Lymphocytes # 1.7 Monocytes # 1.5 H Eosinophils # 0.5 Basophils # 0.1 Nucleated Red Blood Cells # 0.0 Sodium Level 131 L Potassium Level 3.8 Chloride Level 94 L Carbon Dioxide Level 30 Anion Gap 7 Blood Urea Nitrogen 20 Creatinine 1.09 Est Glomerular Filtrat Rate mL/min Glucose Level 110 Calcium Level 8.7 Medications Medication Current Medications Ondansetron HCl (Zofran Inj) 4 mg Q6H PRN IV NAUSEA/VOMITING; Start 08/13/18 at 17:00 Acetaminophen (Tylenol Tab) 650 mg Q6H PRN PO .PAIN 1-3 OR TEMP; Start 08/13/18 at 17:00 Docusate Sodium (Colace) 100 mg Q12H PRN PO .CONSTIPATION Last administered on 08/19/18at 05:44; Admin Dose 100 MG; Start 08/13/18 at 17:00 Pantoprazole (Protonix Tab) 40 mg DAILY@06 PO Last administered on 08/19/18 05:37; Admin Dose 40 MG; Start 08/14/18 at 06:00 Albuterol/ Ipratropium (Duoneb) 3 ml Q6H RESP THERAPY HHN Last administered on 08/19/18 01:03; Admin Dose 3 ML; Start 08/13/18 at 20:00 Aspirin (Halfprin) 81 mg DAILY PO Last administered on 08/19/18 09:16; Admin Dose 81 MG; Start 08/14/18 at 09:00 Atenolol (Tenormin) 12.5 mg BID PO Last administered on 08/19/18 09:16; Admin Dose 12.5 MG; Start 08/13/18 at 21:00 Digoxin (Digoxin) 0.125 mg DAILY@1300 PO Last administered on 08/18/18 14:08; Admin Dose 0.125 MG; Start 08/14/18 at 13:00 Diltiazem HCl (Cardizem) 30 mg Q8 PO Last administered on 08/19/18 05:37; Admin Dose 30 MG; Start 08/13/18 at 22:00 Bisacodyl (Dulcolax) 10 mg BID PRN PO CONSTIPATION Last administered on 08/15/18 21:02; Admin Dose 10 MG; Start 08/14/18 at 22:00 Dabigatran (PRADaxa) 75 mg BID PO Last administered on 08/19/18 09:16; Admin Dose 75 MG; Start 08/15/18 at 21:00 Mupirocin (Bactroban) 1 applic BID TOP Last administered on 08/19/18 09:16; Admin Dose 1 APPLIC; Start 08/16/18 at 12:00 ALAN DICKERSON Aug 19, 2018 11:51
[2018-08-19 13:24] VITALS: BP 147/61; PULSE 78; RESP 20
--- NOTE | 2018-08-19 13:25 | PN ---
Date/Time of Note Date/Time of Note DATE: 08/19/18 TIME: 13:25 Assessment/Plan VTE Prophylaxis Risk score (from Ns)>0 risk: 6 SCD applied (from [facility]): No SCD contraindicated: low risk/ambulating Pharmacological prophylaxis: NA/contraindicated Pharm contraindication: low risk/ambulating Lines/Catheters IV C[facility]ter Type (from [email or web address] Peripheral IV Urinary Cath still in place: No Assessment/Plan Assessment/Plan 1 Recurrent shortness of breath likely secondary to underlying congestive heart failure vs pneumonia . lasix was reduced to 40 daily from 40 twice daily by home health agency 2. Chronic atrial fibrillation. 3. Hypertension. 4. Hyperlipidemia. 5. History of congestive heart failure and cardiomyopathy. 6. History of lung cancer. 7. Hyperlipidemia. 8. Chronic kidney disease. 9. History of pneumothorax status post chest tube placement. 10. Anemia. 11. Former smoker. 12 hx of pleural effusion status post thoracentesis in past now s/p rt and left thoracentesis Assessment/Plan -ambulate -c/w PT -Pt was pending transfer to SNF, -s/p thoracentesis right side, left cancelled due to low amount of fluid -c/w Pradaxa -Follow with cards/pulmonary recs -With aspirin/diltiazem/atenolol -GI proph.Protonix dc snif today with lasix repeat chest xray ib 10 days Result Diagram: 08/19/18 0431 08/19/18 0431 Results 24hrs Laboratory Tests Test 08/19/18 04:31 White Blood Count 10.1 Red Blood Count 3.63 L Hemoglobin 10.2 L Hematocrit 31.0 L Mean Corpuscular Volume 85.4 Mean Corpuscular Hemoglobin 28.1 L Mean Corpuscular Hemoglobin Concent 32.9 Red Cell Distribution Width 14.2 Platelet Count 446 H Mean Platelet Volume 9.0 Immature Granulocytes % 0.500 H Neutrophils % 62.6 Lymphocytes % 16.4 Monocytes % 14.9 H Eosinophils % 5.0 Basophils % 0.6 Nucleated Red Blood Cells % 0.0 Immature Granulocytes # 0.050 H Neutrophils # 6.3 Lymphocytes # 1.7 Monocytes # 1.5 H Eosinophils # 0.5 Basophils # 0.1 Nucleated Red Blood Cells # 0.0 Sodium Level 131 L Potassium Level 3.8 Chloride Level 94 L Carbon Dioxide Level 30 Anion Gap 7 Blood Urea Nitrogen 20 Creatinine 1.09 Est Glomerular Filtrat Rate mL/min Glucose Level 110 Calcium Level 8.7 Subjective 24 Hr Interval Summary Free Text/Dictation feels better sob improved Exam/Review of Systems Exam Vitals Vital Signs Date Temp Pulse Resp B/P (MAP) Pulse Ox O2 O2 Flow FiO2 Time Delivery Rate 08/19/18 97.4 72 20 131/62 97 07:51 (85) 08/19/18 21 01:03 08/18/18 Nasal 1.0 21:05 Cannula Intake and Output 08/18/18 08/18/18 08/19/18 1515:00 23:00 07:00 IntakeIntake Total 360 ml 240 ml OutputOutput Total 160 ml 180 ml BalanceBalance 200 ml 60 ml Exam Constitutional: alert, oriented, frail Respiratory: clear to auscultation Cardiovascular: regular rate and rhythm Gastrointestinal: soft Musculoskeletal: nl extremities to inspection Skin: other (pale) Results Results 24hrs Laboratory Tests Test 08/19/18 04:31 White Blood Count 10.1 Red Blood Count 3.63 L Hemoglobin 10.2 L Hematocrit 31.0 L Mean Corpuscular Volume 85.4 Mean Corpuscular Hemoglobin 28.1 L Mean Corpuscular Hemoglobin Concent 32.9 Red Cell Distribution Width 14.2 Platelet Count 446 H Mean Platelet Volume 9.0 Immature Granulocytes % 0.500 H Neutrophils % 62.6 Lymphocytes % 16.4 Monocytes % 14.9 H Eosinophils % 5.0 Basophils % 0.6 Nucleated Red Blood Cells % 0.0 Immature Granulocytes # 0.050 H Neutrophils # 6.3 Lymphocytes # 1.7 Monocytes # 1.5 H Eosinophils # 0.5 Basophils # 0.1 Nucleated Red Blood Cells # 0.0 Sodium Level 131 L Potassium Level 3.8 Chloride Level 94 L Carbon Dioxide Level 30 Anion Gap 7 Blood Urea Nitrogen 20 Creatinine 1.09 Est Glomerular Filtrat Rate mL/min Glucose Level 110 Calcium Level 8.7 Medications Medication Current Medications Ondansetron HCl (Zofran Inj) 4 mg Q6H PRN IV NAUSEA/VOMITING; Start 08/13/18 at 17:00 Acetaminophen (Tylenol Tab) 650 mg Q6H PRN PO .PAIN 1-3 OR TEMP; Start 08/13/18 at 17:00 Docusate Sodium (Colace) 100 mg Q12H PRN PO .CONSTIPATION Last administered on 08/19/18 05:44; Admin Dose 100 MG; Start 08/13/18 at 17:00 Pantoprazole (Protonix Tab) 40 mg DAILY@06 PO Last administered on 08/19/18 05:37; Admin Dose 40 MG; Start 08/14/18 at 06:00 Albuterol/ Ipratropium (Duoneb) 3 ml Q6H RESP THERAPY HHN Last administered on 08/19/18 01:03; Admin Dose 3 ML; Start 08/13/18 at 20:00 Aspirin (Halfprin) 81 mg DAILY PO Last administered on 08/19/18 09:16; Admin Dose 81 MG; Start 08/14/18 at 09:00 Atenolol (Tenormin) 12.5 mg BID PO Last administered on 08/19/18 09:16; Admin Dose 12.5 MG; Start 08/13/18 at 21:00 Digoxin (Digoxin) 0.125 mg DAILY@1300 PO Last administered on 08/18/18 14:08; Admin Dose 0.125 MG; Start 08/14/18 at 13:00 Diltiazem HCl (Cardizem) 30 mg Q8 PO Last administered on 08/19/18 05:37; Admin Dose 30 MG; Start 08/13/18 at 22:00 Bisacodyl (Dulcolax) 10 mg BID PRN PO CONSTIPATION Last administered on 08/15/18 21:02; Admin Dose 10 MG; Start 08/14/18 at 22:00 Dabigatran (PRADaxa) 75 mg BID PO Last administered on 08/19/18 09:16; Admin Dose 75 MG; Start 08/15/18 at 21:00 Mupirocin (Bactroban) 1 applic BID TOP Last administered on 08/19/18 09:16; Admin Dose 1 APPLIC; Start 08/16/18 at 12:00 FIDEL GAVIN MD Aug 19, 2018 13:25
--- NOTE | 2018-08-19 13:26 | PDOCDIS ---
Discharge Instructions DIAGNOSIS Discharge Diagnosis chf r and left effusion CONDITION [id number] Patient Condition: [id number] Fair HOME CARE INSTRUCTIONS: [id number] Diet Instructions: [id number] Low Fat /Cholesterol ACTIVITY: [id number] Activity Restrictions: [id number] Slowly Increase Activity Rest between Activity Avoid heavy lifting FOLLOW UP/APPOINTMENTS Follow-up Plan fu PCP in 1 -2 weeks fu cards in 1-2 weeks fu pul in 1-2 weeks repeat chest xray in 10 days FIDEL GAVIN MD Aug 19, 2018 13:26
[2018-08-19] MEDS: DIGOXIN 0.125 MG TAB PO SCH (13:35)
[2018-08-19 19:47] VITALS: BP 129/57; PULSE 75; RESP 20
--- NOTE | 2018-08-19 19:49 | CONS ---
Assessment/Plan Assessment/Plan Hospital Course (Demo Recall) IMPRESSION: 1. Assess for exacerbation, diastolic, acute on chronic. 2. Atrial fibrillation-rate controlled 3. Shortness of breath, possibly due to congestive heart failure, possible may have pneumonia. 4. Pneumonia. 5. Pleural effusions- s/p thoracentesis on R side 6. Renal failure, borderline. 7. Chronic obstructive pulmonary disease. 8. History of lung cancer, status post treatment. Recc: -Tele -continue atenolol and diltiazem with good HR and BP control -Follow volume status clsoely with lasix currently held secondary to development of mild renal insuff which is improving -Resumed on pradaxa s/p thoracentesis, -Continue digoxin Consultation Date/Type/Reason Admit Date/Time Aug 13, 2018 at 10:41 Initial Consult Date 08/14/18 Type of Consult Cardiology Reason for Consultation CHF Requesting Provider: FIDEL GAVIN MD Date/Time of Note DATE: 08/19/18 TIME: 19:46 Exam/Review of Systems Vital Signs Vitals Vital Signs Date Temp Pulse Resp B/P (MAP) Pulse Ox O2 O2 Flow FiO2 Time Delivery Rate 08/19/18 97.3 78 20 147/61 97 13:24 (89) 08/19/18 21 01:03 08/18/18 Nasal 1.0 21:05 Cannula Intake and Output 08/18/18 08/18/18 08/19/18 1515:00 23:00 07:00 IntakeIntake Total 360 ml 240 ml OutputOutput Total 160 ml 180 ml BalanceBalance 200 ml 60 ml Exam Exam Review of Systems: CONSTITUTIONAL: No fevers, chills. PULMONARY: No sob CARDIOVASCULAR: No chest pain/palpitations GASTROINTESTINAL: No nausea/vomiting. GENITOURINARY: No hematuria/dysuria. MUSCULOSKELETAL: No myagias/arthalgias. PSYCHIATRIC: The patient denies depression. NEUROLOGIC: No weakness Constitutional: alert, oriented Psych: no complaints Head: normocephalic ENMT: mucosa pink and moist Neck: supple, jvd (9 cm water) Respiratory: diminished breath sounds (at bases/B) Cardiovascular: regular rate and rhythm Gastrointestinal: soft, non-tender Extremities: edema (none) 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: other (NO focal deficits) Labs Result Diagram: 08/19/18 0431 08/19/18 0431 Results 24hrs Laboratory Tests Test 08/19/18 04:31 White Blood Count 10.1 Red Blood Count 3.63 L Hemoglobin 10.2 L Hematocrit 31.0 L Mean Corpuscular Volume 85.4 Mean Corpuscular Hemoglobin 28.1 L Mean Corpuscular Hemoglobin Concent 32.9 Red Cell Distribution Width 14.2 Platelet Count 446 H Mean Platelet Volume 9.0 Immature Granulocytes % 0.500 H Neutrophils % 62.6 Lymphocytes % 16.4 Monocytes % 14.9 H Eosinophils % 5.0 Basophils % 0.6 Nucleated Red Blood Cells % 0.0 Immature Granulocytes # 0.050 H Neutrophils # 6.3 Lymphocytes # 1.7 Monocytes # 1.5 H Eosinophils # 0.5 Basophils # 0.1 Nucleated Red Blood Cells # 0.0 Sodium Level 131 L Potassium Level 3.8 Chloride Level 94 L Carbon Dioxide Level 30 Anion Gap 7 Blood Urea Nitrogen 20 Creatinine 1.09 Est Glomerular Filtrat Rate mL/min Glucose Level 110 Calcium Level 8.7 Medications Medications Current Medications Ondansetron HCl (Zofran Inj) 4 mg Q6H PRN IV NAUSEA/VOMITING; Start 08/13/18 at 17:00 Acetaminophen (Tylenol Tab) 650 mg Q6H PRN PO .PAIN 1-3 OR TEMP; Start 08/13/18 at 17:00 Docusate Sodium (Colace) 100 mg Q12H PRN PO .CONSTIPATION Last administered on 08/19/18at 05:44; Admin Dose 100 MG; Start 08/13/18 at 17:00 Pantoprazole (Protonix Tab) 40 mg DAILY@06 PO Last administered on 08/19/18at 05:37; Admin Dose 40 MG; Start 08/14/18 at 06:00 Albuterol/ Ipratropium (Duoneb) 3 ml Q6H RESP THERAPY HHN Last administered on 08/19/18at 01:03; Admin Dose 3 ML; Start 08/13/18 at 20:00 Aspirin (Halfprin) 81 mg DAILY PO Last administered on 08/19/18at 09:16; Admin Dose 81 MG; Start 08/14/18 at 09:00 Atenolol (Tenormin) 12.5 mg BID PO Last administered on 08/19/18at 09:16; Admin Dose 12.5 MG; Start 08/13/18 at 21:00 Digoxin (Digoxin) 0.125 mg DAILY@1300 PO Last administered on 08/19/18 13:35; Admin Dose 0.125 MG; Start 08/14/18 at 13:00 Diltiazem HCl (Cardizem) 30 mg Q8 PO Last administered on 08/19/18 13:35; Admin Dose 30 MG; Start 08/13/18 at 22:00 Bisacodyl (Dulcolax) 10 mg BID PRN PO CONSTIPATION Last administered on 08/15/18at 21:02; Admin Dose 10 MG; Start 08/14/18 at 22:00 Dabigatran (PRADaxa) 75 mg BID PO Last administered on 08/19/18 09:16; Admin Dose 75 MG; Start 08/15/18 at 21:00 Mupirocin (Bactroban) 1 applic BID TOP Last administered on 08/19/18 09:16; Admin Dose 1 APPLIC; Start 08/16/18 at 12:00 CECE LOPEZ Aug 19, 2018 19:49
[2018-08-20 01:51] VITALS: BP 118/64; PULSE 80; RESP 20
[2018-08-20] MEDS: ALBUTEROL/IPRATROPIUM (NEB) 3 ML AMP HHN SCH ×4 (01:52→19:39)
[2018-08-20] MEDS: PANTOPRAZOLE (EC) 40 MG TAB PO SCH (05:39)
[2018-08-20] MEDS: DILTIAZEM 30 MG TAB PO SCH ×3 (05:39→21:22)
[2018-08-20 07:32] VITALS: BP 130/61; PULSE 68; RESP 20
[2018-08-20] MEDS: ASPIRIN (EC) 81 MG TAB PO SCH (09:19)
[2018-08-20] MEDS: MUPIROCIN 2% 22 GM OINT TOP SCH ×2 (09:19→21:22)
[2018-08-20] MEDS: DABIGATRAN 75 MG CAP PO SCH ×2 (09:19→21:20)
[2018-08-20] MEDS: ATENOLOL 25 MG TAB PO SCH ×2 (09:19→21:21)
--- NOTE | 2018-08-20 10:07 | CONS ---
Consult Date/Type/Reason Admit Date/Time Aug 13, 2018 at 10:41 Initial Consult Date 08/14/18 Type of Consultation: Pulm Requesting Provider: FIDEL GAVIN MD Date/Time of Note DATE: 08/20/18 TIME: 10:04 Subjective NO acute events - pt stable - BP in good range - will monitor clinically now. ROS: No fever, no chills, no nausea, no vomiting, no diarrhea/constipation - in good spirits, as always No recent weight changes No chest pain, no PND, no orthopnea No dizziness, blurred vision No thirst, no heat or cold intolerance Objective Vitals Vital Signs Date Temp Pulse Resp B/P (MAP) Pulse Ox O2 O2 Flow FiO2 Time Delivery Rate 08/20/18 71 18 97 21 07:46 08/20/18 97.5 130/61 07:32 (84) 08/19/18 Nasal 2.0 20:00 Cannula Intake and Output 08/19/18 08/19/18 08/20/18 1515:00 23:00 07:00 IntakeIntake Total 1600 ml 520 ml OutputOutput Total 1225 ml 800 ml 250 ml BalanceBalance 375 ml -280 ml -250 ml Exam General: WN/WD/NAD, AOx 2-3 mild dementia HEENT: Unicetric/atraumatic/EOMI ( follows commands) NECK: JVD elevated, no thyromegaly Lymph: no lymphadenopathy HEART: irregular with no S3, II/ systolic murmur at apex LUNGS: Coarse sounds ABD: soft, NT, ND, +BS : Intact Neuro: non focal SKIN: chronic changes EXT: trace edema Results/Medications Result Diagram: 08/19/1843008/19/18 043 Home Meds Active Scripts Ipratropium-Albuterol (Ipratropium-Albuterol) 0.5-3 Mg/3 Ml Ampul.neb, 3 ML HHN Q4H RESP THERAPY for 30 Days Prov:JASPER SAHU 07/19/18 Reported Medications Albuterol Sulfate* (Proair HFA*) 8.5 Gm Hfa.aer.ad, 2 PUFF INH Q6H PRN for WHEEZING AND SOB, #1 INHALER 08/13/18 Guaifenesin (Guaifenesin) 100 Mg/5 Ml Liquid, 10 ML PO Q8H PRN for COUGH, ML 08/13/18 Hydrocortisone* Topical (Hydrocortisone* Topical) 2.5%-28.3 Gm Cream..g., 1 APPLIC TOP BID PRN for ITCHING, TUB 08/13/18 Diltiazem Hcl* (Cardizem*) 30 Mg Tablet, 30 MG PO Q8 for CHF, #90 TAB HOLD IF SBP<110 OR HR<60 08/13/18 Acetaminophen* (Acetaminophen*) 500 MG Extra Strength Tablet, 500 MG PO Q6H PRN for PAIN AND OR ELEVATED TEMP, TAB 08/13/18 Aspirin* (Aspirin* EC) 81 Mg Tablet.dr, 81 MG PO DAILY, TAB 08/13/18 Digoxin* (Digitek*) 125 Mcg Tablet, 0.125 MG PO DAILY, TAB HOLD IF SBP<110 OR HR<60 08/13/18 Atenolol* (Atenolol*) 25 Mg Tablet, 12.5 MG PO BID, #60 TAB HOLD IF SBP<110 OR HR<60 08/13/18 Furosemide* (Furosemide*) 40 Mg Tablet, 40 MG PO DAILY, TAB 08/13/18 Magnesium Hydroxide* (Milk Of Magnesia*) 400 Mg/5 Ml Oral.susp, 30 ML PO DAILY, ML 08/13/18 Potassium Chloride* (Klor-Con*) 20 Meq Tabsr, 20 MEQ PO DAILY, TAB.SA 07/11/18 Pantoprazole* (Pantoprazole*) 40 Mg Tablet.dr, 40 MG PO DAILY, TAB 07/11/18 Dabigatran Etexilate Mesylate* (Pradaxa*) 75 Mg Cap, 75 MG PO BID, CAP 07/11/18 Discontinued Reported Medications Atenolol* (Atenolol*) 50 Mg Tablet, 50 MG PO BID, #60 TAB 08/13/18 Docusate Sodium* (Colace*) 100 Mg Capsule, 100 MG PO BID, #60 CAP 08/13/18 Magnesium Hydroxide* (Milk Of Magnesia*) 400 Mg/5 Ml Oral.susp, 30 ML PO DAILY PRN for CONSTIPATION, ML 07/11/18 Gwnqleimtte-Z-Oixoyfhlxo Hb* (Guaifenesin* DM Syrup) 120 Ml Syrup, 10 ML PO Q6 PRN for COUGH, ML 07/11/18 Digoxin* (Lanoxin*) 0.125 Mg Tablet, 0.125 MG PO DAILY, TAB 02/07/18 Furosemide* (Lasix*) 40 Mg Tablet, 40 MG PO DAILY, TAB 01/31/16 Discontinued Scripts Diltiazem Hcl* (Cardizem*) 30 Mg Tablet, 30 MG PO Q8 for 30 Days, TAB Prov:JASPER SAHU 07/19/18 Atenolol (Tenormin) 25 Mg Tab, 25 MG PO BID for 30 Days, TAB Prov:JASPER SAHU 07/19/18 Medications Current Medications Ondansetron HCl (Zofran Inj) 4 mg Q6H PRN IV NAUSEA/VOMITING; Start 08/13/18 at 17:00 Acetaminophen (Tylenol Tab) 650 mg Q6H PRN PO .PAIN 1-3 OR TEMP; Start 08/13/18 at 17:00 Docusate Sodium (Colace) 100 mg Q12H PRN PO .CONSTIPATION Last administered on 08/19/18at 05:44; Admin Dose 100 MG; Start 08/13/18 at 17:00 Pantoprazole (Protonix Tab) 40 mg DAILY@06 PO Last administered on 08/20/18at 05:39; Admin Dose 40 MG; Start 08/14/18 at 06:00 Albuterol/ Ipratropium (Duoneb) 3 ml Q6H RESP THERAPY HHN Last administered on 08/20/18at 07:46; Admin Dose 3 ML; Start 08/13/18 at 20:00 Aspirin (Halfprin) 81 mg DAILY PO Last administered on 08/20/18at 09:19; Admin Dose 81 MG; Start 08/14/18 at 09:00 Atenolol (Tenormin) 12.5 mg BID PO Last administered on 08/20/18at 09:19; Admin Dose 12.5 MG; Start 08/13/18 at 21:00 Digoxin (Digoxin) 0.125 mg DAILY@1300 PO Last administered on 08/19/18at 13:35; Admin Dose 0.125 MG; Start 08/14/18 at 13:00 Diltiazem HCl (Cardizem) 30 mg Q8 PO Last administered on 08/20/18at 05:39; Admin Dose 30 MG; Start 6/11/19 at 22:00 Bisacodyl (Dulcolax) 10 mg BID PRN PO CONSTIPATION Last administered on 08/15/18at 21:02; Admin Dose 10 MG; Start 08/14/18 at 22:00 Dabigatran (PRADaxa) 75 mg BID PO Last administered on 08/20/18at 09:19; Admin Dose 75 MG; Start 08/15/18 at 21:00 Mupirocin (Bactroban) 1 applic BID TOP Last administered on 08/20/18at 09:; Admin Dose 1 APPLIC; Start 08/16/18 at 12:00 Assessment/Plan Hospital Course (Demo Recall) 1. Assess for exacerbation, diastolic, acute on chronic - better now, good urine output noted. 2. Atrial fibrillation-rate controlled - chronic. 3. Shortness of breath, possibly due to congestive heart failure, possible may have pneumonia - better with therapy. 4. Pneumonia - con't anti-bx. 5. Pleural effusions- s/p thoracentesis on R side - improved breathing per selfreport. 6. Renal failure, borderline- reasonable urine output. 7. Chronic obstructive pulmonary disease. 8. History of lung cancer, status post treatment. EMILY SANTAMARIA MD Aug 20, 2018 10:07
[2018-08-20] MEDS: BISACODYL (EC) 5 MG TAB PO PRN (13:01)
[2018-08-20] MEDS: DOCUSATE SODIUM 100 MG CAP PO PRN (13:01)
[2018-08-20] MEDS: DIGOXIN 0.125 MG TAB PO SCH (13:01)
[2018-08-20 13:10] VITALS: BP 139/61; PULSE 75; RESP 20
--- NOTE | 2018-08-20 15:16 | PN ---
Date/Time of Note Date/Time of Note DATE: 08/20/18 TIME: 15:13 Assessment/Plan VTE Prophylaxis Risk score (from Ns)>0 risk: 3 SCD applied (from [facility] [place] No SCD contraindicated: low risk/ambulating Pharmacological prophylaxis: NA/contraindicated Pharm contraindication: low risk/ambulating Lines/Catheters IV C[facility]ter Type [facility]from [facility] [place] [facility] Urinary Cath still in place: No Assessment/Plan Assessment/Plan 1 Recurrent shortness of breath likely secondary to underlying congestive heart failure vs pneumonia . lasix was reduced to 40 daily from 40 twice daily by home health agency 2. Chronic atrial fibrillation. 3. Hypertension. 4. Hyperlipidemia. 5. History of congestive heart failure and cardiomyopathy. 6. History of lung cancer. 7. Hyperlipidemia. 8. Chronic kidney disease. 9. History of pneumothorax status post chest tube placement. 10. Anemia. 11. Former smoker. 12 hx of pleural effusion status post thoracentesis in past now s/p rt and left thoracentesis Assessment/Plan -ambulate -c/w PT -Pt was pending transfer to SNF, -s/p thoracentesis right side, left cancelled due to low amount of fluid -c/w Pradaxa -Follow with cards/pulmonary recs -With aspirin/diltiazem/atenolol -GI proph.Protonix dc snif today with lasix repeat chest xray ib 10 days Result Diagram: 08/19/18 0431 08/19/18 0431 Subjective 24 Hr Interval Summary Free Text/Dictation no acute events waiting for discharge Exam/Review of Systems Exam Vitals Vital Signs Date Temp Pulse Resp B/P (MAP) Pulse Ox O2 O2 Flow FiO2 Time Delivery Rate 08/20/18 72 18 97 21 13:44 08/20/18 98.1 139/61 13:10 (87) 08/19/18 Nasal 2.0 20:00 Cannula Intake and Output 08/19/18 08/19/18 08/20/18 1515:00 23:00 07:00 IntakeIntake Total 1600 ml 520 ml OutputOutput Total 1225 ml 800 ml 250 ml BalanceBalance 375 ml -280 ml -250 ml Exam onstitutional: alert, oriented, frail Respiratory: clear to auscultation Cardiovascular: regular rate and rhythm Gastrointestinal: soft Musculoskeletal: nl extremities to inspection Skin: other (pale) Medications Medication Current Medications Ondansetron HCl (Zofran Inj) 4 mg Q6H PRN IV NAUSEA/VOMITING; Start 08/13/18 at 17:00 Acetaminophen (Tylenol Tab) 650 mg Q6H PRN PO .PAIN 1-3 OR TEMP; Start 08/13/18 at 17:00 Docusate Sodium (Colace) 100 mg Q12H PRN PO .CONSTIPATION Last administered on 08/20/18 13:01; Admin Dose 100 MG; Start 08/13/18 at 17:00 Pantoprazole (Protonix Tab) 40 mg DAILY@06 PO Last administered on 08/20/18 05:39; Admin Dose 40 MG; Start 08/14/18 at 06:00 Albuterol/ Ipratropium (Duoneb) 3 ml Q6H RESP THERAPY HHN Last administered on 08/20/18 13:44; Admin Dose 3 ML; Start 08/13/18 at 20:00 Aspirin (Halfprin) 81 mg DAILY PO Last administered on 08/20/18 09:19; Admin Dose 81 MG; Start 08/14/18 at 09:00 Atenolol (Tenormin) 12.5 mg BID PO Last administered on 08/20/18 09:19; Admin Dose 12.5 MG; Start 08/13/18 at 21:00 Digoxin (Digoxin) 0.125 mg DAILY@1300 PO Last administered on 08/20/18 13:01; Admin Dose 0.125 MG; Start 08/14/18 at 13:00 Diltiazem HCl (Cardizem) 30 mg Q8 PO Last administered on 08/20/18 15:00; Ad min Dose 30 MG; Start 08/13/18 at 22:00 Bisacodyl (Dulcolax) 10 mg BID PRN PO CONSTIPATION Last administered on 08/20/18 13:01; Admin Dose 10 MG; Start 08/14/18 at 22:00 Dabigatran (PRADaxa) 75 mg BID PO Last administered on 08/20/18 09:19; Admin Dose 75 MG; Start 08/15/18 at 21:00 Mupirocin (Bactroban) 1 applic BID TOP Last administered on 08/20/18 09:19; Admin Dose 1 APPLIC; Start 6/14/19 at 12:00 FIDEL GAVIN MD Aug 20, 2018 15:16
[2018-08-20 19:32] VITALS: BP 122/56; PULSE 82; RESP 18
[2018-08-21] MEDS: ALBUTEROL/IPRATROPIUM (NEB) 3 ML AMP HHN SCH ×2 (02:00→07:56)
[2018-08-21 02:12] VITALS: BP 141/66; PULSE 85; RESP 19
[2018-08-21] MEDS: PANTOPRAZOLE (EC) 40 MG TAB PO SCH (05:05)
[2018-08-21] MEDS: DILTIAZEM 30 MG TAB PO SCH ×2 (05:06→13:06)
[2018-08-21 07:32] VITALS: BP 154/58; PULSE 69; RESP 19
[2018-08-21] MEDS: ATENOLOL 25 MG TAB PO SCH (09:54)
[2018-08-21] MEDS: ASPIRIN (EC) 81 MG TAB PO SCH (09:54)
[2018-08-21] MEDS: MUPIROCIN 2% 22 GM OINT TOP SCH (09:54)
[2018-08-21] MEDS: DABIGATRAN 75 MG CAP PO SCH (09:54)
[2018-08-21] MEDS: DOCUSATE SODIUM 100 MG CAP PO PRN (12:29)
[2018-08-21] MEDS: DIGOXIN 0.125 MG TAB PO SCH (12:44)
[2018-08-21 14:30] VITALS: BP 118/67; PULSE 86; RESP 18
--- NOTE | 2018-08-21 14:35 | CONS ---
Assessment/Plan Assessment/Plan Hospital Course (Demo Recall) IMPRESSION: 1. Assess for exacerbation, diastolic, acute on chronic. 2. Atrial fibrillation-rate controlled 3. Shortness of breath, possibly due to congestive heart failure, possible may have pneumonia. 4. Pneumonia. 5. Pleural effusions- s/p thoracentesis on R side 6. Renal failure, borderline. 7. Chronic obstructive pulmonary disease. 8. History of lung cancer, status post treatment. 9. HTN-somewhat labile but overall reasonable Recc: -Tele -continue atenolol and diltiazem with reasonable HR and BP control -Follow volume status clsoely with lasix currently held but would consider resumption low dose to maintain euvolemia -Resumed on pradaxa s/p thoracentesis, -Continue digoxin Consultation Date/Type/Reason Admit Date/Time Aug 13, 2018 at 10:41 Initial Consult Date 08/14/18 Type of Consult Cardiology Reason for Consultation CHF Requesting Provider: FIDEL GAVIN MD Date/Time of Note DATE: 08/21/18 TIME: 14:33 Exam/Review of Systems Vital Signs Vitals Vital Signs Date Temp Pulse Resp B/P (MAP) Pulse Ox O2 O2 Flow FiO2 Time Delivery Rate 08/21/18 Nasal 2.0 09:00 Cannula 08/21/18 73 20 94 21 07:56 08/21/18 97.6 154/58 07:32 (90) Intake and Output 08/20/18 08/20/18 08/21/18 1515:00 23:00 07:00 IntakeIntake Total 1000 ml 780 ml OutputOutput Total 1100 ml 890 ml BalanceBalance -100 ml -110 ml Exam Exam Review of Systems: CONSTITUTIONAL: No fevers, chills. PULMONARY: No sob CARDIOVASCULAR: No chest pain/palpitations GASTROINTESTINAL: No nausea/vomiting. GENITOURINARY: No hematuria/dysuria. MUSCULOSKELETAL: No myagias/arthalgias. PSYCHIATRIC: The patient denies depression. NEUROLOGIC: mild generalized weakness Constitutional: alert Psych: no complaints Head: normocephalic ENMT: mucosa pink and moist Neck: supple, jvd (8 cm water) Respiratory: clear to auscultation Cardiovascular: regular rate and rhythm Gastrointestinal: soft, non-tender Musculoskeletal: muscle tone (normal) Extremities: edema (none) 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: other (No focal deficits) Labs Result Diagram: 6/17/19 0431 6/17/19 043 Medications Medications Current Medications Ondansetron HCl (Zofran Inj) 4 mg Q6H PRN IV NAUSEA/VOMITING; Start 08/13/18 at 17:00 Acetaminophen (Tylenol Tab) 650 mg Q6H PRN PO .PAIN 1-3 OR TEMP; Start 08/13/18 at 17:00 Docusate Sodium (Colace) 100 mg Q12H PRN PO .CONSTIPATION Last administered on 08/21/18 12:29; Admin Dose 100 MG; Start 08/13/18 at 17:00 Pantoprazole (Protonix Tab) 40 mg DAILY@06 PO Last administered on 08/21/18 05:05; Admin Dose 40 MG; Start 08/14/18 at 06:00 Albuterol/ Ipratropium (Duoneb) 3 ml Q6H RESP THERAPY HHN Last administered on 08/21/18 07:56; Admin Dose 3 ML; Start 08/13/18 at 20:00 Aspirin (Halfprin) 81 mg DAILY PO Last administered on 08/21/18 09:54; Admin Dose 81 MG; Start 08/14/18 at 09:00 Atenolol (Tenormin) 12.5 mg BID PO Last administered on 08/21/18 09:54; Admin Dose 12.5 MG; Start 08/13/18 at 21:00 Digoxin (Digoxin) 0.125 mg DAILY@1300 PO Last administered on 08/21/18 12:44; Admin Dose 0.125 MG; Start 08/14/18 at 13:00 Diltiazem HCl (Cardizem) 30 mg Q8 PO Last administered on 08/21/18 13:06; Admin Dose 30 MG; Start 08/13/18 at 22:00 Bisacodyl (Dulcolax) 10 mg BID PRN PO CONSTIPATION Last administered on 08/20/18 13:01; Admin Dose 10 MG; Start 08/14/18 at 22:00 Dabigatran (PRADaxa) 75 mg BID PO Last administered on 08/21/18 09:54; Admin Dose 75 MG; Start 08/15/18 at 21:00 Mupirocin (Bactroban) 1 applic BID TOP Last administered on 6/19/19at 09:54; Admin Dose 1 APPLIC; Start 08/16/18 at 12:00 CECE LOPEZ Aug 21, 2018 14:35
[2018-08-22] MEDS ORDERED: FUROSEMIDE 20 MG TAB PO SCH (06:00)
--- NOTE | 2018-08-22 09:47 | DS ---
DATE OF ADMISSION: 08/13/2018 DATE OF DISCHARGE: 08/21/2018 HISTORY OF PRESENT ILLNESS AND HOSPITAL COURSE: An 78-year-old male known to the service with a past medical history of hypertension, hyperlipidemia, history of AFib, left-sided effusion, status post t horacentesis, COPD, CKD, left lower lobe pneumonia, EF 35% to 40%, [facility] The patient said that he was discharged home. His home health samantha nur had been arranging his medications. He has been feeling more shortness of breath, came to the [facility] department for further evaluation. He had some lower extremity edema. On admission, vital si gns, patient was saturating 98% on 2 liters. White count was 7.7, hemoglobin 10.9, creatinine 1.37. Chest x-ray: Bilateral lower lobe infiltrates, left lower lobe consolidation, moderate left size pl eural effusions. The patient was admitted initially to telemetry, was started on IV Lasix b.i.d. The patient was also started on antibiotics. Patient was seen by pulmonary consultation, Dr. Holder who discontinued antibiotics as it was thought more to be congestive heart failure. The patient was seen by Dr. Hall for cardiology consultation and recommendations were followed. Pradaxa was held as t he patient was scheduled for thoracentesis. The patient had thoracentesis performed on the right yrn e and had 1 liter of fluid that was removed. Blood cultures were sent that were negative. Gram flui d was negative. Patient's diuretics were adjusted then finally, the Lasix was held. Patient was cli nically feeling much better. Initially, it was thought to have also thoracentesis on the left; [facility], it was complex with multiple septations so thoracentesis could not be performed. The patient was scheduled to go to rehab; however [facility] would not approve it. Finally, the patient go t accepted at [facility] and the patient is stable to be discharged to rehab on p.o. Lasix. The p atient will need repeat chest x-ray in 10 days. FINAL DISCHARGE DIAGNOSES: 1. Recurrent shortness of breath secondary to acute on chronic congestive heart failure. 2. Chronic atrial fibrillation. 3. Hypertension. 4. Hyperlipidemia. 5. History of congestive heart failure, cardiomyopathy. 6. History of lung cancer. 7. Hyperlipidemia. 8. Chronic kidney disease. 9. History of pneumothorax. 10. Anemia. 11. Former smoker 12. History of pleural effusion, status post thoracentesis on the right. DISCHARGE MEDICATIONS: Continue with all the same home medications which were: 1. Lasix 40 daily. 2. Pradaxa 75 b.i.d. 3. Digoxin 0.125. 4. Aspirin 81. 5. Pantoprazole 40. 6. Diltiazem 30 q.8h. 7. Atenolol 12.5 b.i.d. Patient will need a repeat chest x-ray in about 10 days. The patient will be followed by PCP in 1 to 2 weeks and cardiology in 2 to 3 weeks and pulmonary in 2 to 3 weeks. Dictated By: FIDEL HOGAN/JACQUELINE Conf#: [id number] DID#: [id number] CC: CECE HALL MD;*EndCC*
== END 2018-08-21 14:55 | DRG 291 ==
LOC: E/R 09:11 → TEL 10:41 → 2NE 08-17 18:26
PROVIDERS: ADMIT Internal Medicine; ATTEND Internal Medicine
PROC: 0W993ZZ Drainage of Right Pleural Cavity, Percutaneous Approach (ICD-10-PCS; principal; 2018-08-15)
DX: I13.0 Hypertensive heart and chronic kidney disease with heart failure and stage 1 through stage 4 chronic kidney disease, or unspecified chronic kidney disease (principal); J18.9 Pneumonia, unspecified organism; I50.33 Acute on chronic diastolic (congestive) heart failure; J90 Pleural effusion, not elsewhere classified; I48.2 Chronic atrial fibrillation; N18.3 Chronic kidney disease, stage 3 (moderate); Z85.118 Personal history of other malignant neoplasm of bronchus and lung; Z87.891 Personal history of nicotine dependence; E78.5 Hyperlipidemia, unspecified; D64.9 Anemia, unspecified; J44.9 Chronic obstructive pulmonary disease, unspecified
CPT/HCPCS: 36415; 71045; 76604; 76942; 80048; 82550; 82553; 83605; 84157; 84484; 85025; 85610; 85730; 87070; 87081; 87102; 87116; 93005; 94640; 94664; 97116; 97162; 97530; J0692; J1940; J3370; J7050

== ENCOUNTER 2018-08-29 15:58 | Inpatient (IN) | payer BC ==
[~2018-08-29] VITALS: Ht 182.9 cm; Wt 69.1 kg
[~2018-08-29 15:58] MED LIST changes: +ACET-141 PO; +ALBU8.5H8 INH; +ASPI-817 PO; -ATEN-138 PO; +ATEN-51 PO; +DIGO125T PO; -DIGO125T93 PO; -FURO-109 PO; +FURO40TA4 PO; +GUAI-637 PO; -GUAI120S25 PO; +HC30CR25 TOP
[2018-08-29 16:07] VITALS: Ht 182.9 cm; Wt 69.1 kg
--- NOTE | 2018-08-29 16:16 | ERD ---
ER Documentation Chief Complaint Chief Complaint SOB xam +ronchi/course lung sounds to bases, afebriel, grunting respiration HPI 78-year-old male history of hypertension, hyperlipidemia, congestive heart failure, EF 35 to 40%, lung cancer, atrial fibrillation with RVR, chronic kidney disease, pleural effusions and anemia presents to the ED via rescue ambulance complaining of a several day history of worsening shortness of breath. Patient was admitted for congestive heart failure 08/13 through 08/21/2018 but reports he has been having worsening shortness of breath since discharge. Palpitations but no chest pain, nausea, vomiting or diaphoresis. Chronic, nonproductive cough but no hemoptysis. Denies leg pain or swelling. No fevers or chills. ROS All systems reviewed and are negative except as per history of present illness. Medications Home Meds Reported Medications Mupirocin Calcium* (Mupirocin*) 2% - 15 Gram Cream..g., 1 APPLIC TOP BID, #1 TUB 08/29/18 Ondansetron Hcl* (Zofran*) 4 Mg Tab, 4 MG PO Q6H PRN for NAUSEA AND OR VOMITING, TAB 08/29/18 Ipratropium-Albuterol (Ipratropium-Albuterol) 0.5-3 Mg/3 Ml Ampul.neb, 3 ML INHALATION Q6 PRN for WHEEZING AND SOB, #30 VIAL 08/29/18 Ferrous Sulfate* (Ferrous Sulfate*) 325 Mg Tabec, 325 MG PO DAILY, TAB 08/29/18 Apixaban* (Eliquis*) 5 Mg Tablet, 5 MG PO BID, TAB 08/29/18 Docusate Sodium* (Colace*) 100 Mg Capsule, 100 MG PO BID, #60 CAP 08/29/18 Bisacodyl* (Bisacodyl*) 5 Mg Tablet.dr, 10 MG PO BID PRN for CONSTIPATION, TAB 08/29/18 Tuberculin,Purif.prot.deriv. (Aplisol) 5 Tub Unit/0.1 Ml Vial, 5 TUB ID ONCE, VIAL START DATE 08/31/18 -- END DATE 09/01/18 08/29/18 Acetaminophen* (Acetaminophen*) 650 Mg Tablet, 650 MG PO Q6H PRN for PAIN LEVEL 1-10/10, #30 TAB AND FEVER>101F 08/29/18 Guaifenesin (Guaifenesin) 100 Mg/5 Ml Liquid, 10 ML PO NEEDED PRN for COUGH, ML 08/13/18 Diltiazem Hcl* (Cardizem*) 30 Mg Tablet, 30 MG PO Q8 for CHF, #90 TAB HOLD IF SBP<110 OR HR<60 08/13/18 Aspirin* (Aspirin* EC) 81 Mg Tablet.dr, 81 MG PO DAILY, TAB 08/13/18 Digoxin* (Digitek*) 125 Mcg Tablet, 0.125 MG PO DAILY, TAB HOLD IF SBP<110 OR HR<60 08/13/18 Atenolol* (Atenolol*) 25 Mg Tablet, 12.5 MG PO BID, #60 TAB HOLD IF SBP<110 OR HR<60 08/13/18 Furosemide* (Furosemide*) 40 Mg Tablet, 40 MG PO DAILY, TAB HOLD IF SBP<110 OR HR<60 08/13/18 Magnesium Hydroxide* (Milk Of Magnesia*) 400 Mg/5 Ml Oral.susp, 30 ML PO DAILY, ML 08/13/18 Potassium Chloride* (Klor-Con*) 20 Meq Tabsr, 20 MEQ PO DAILY, TAB.SA 07/11/18 Pantoprazole* (Pantoprazole*) 40 Mg Tablet.dr, 40 MG PO DAILY, TAB 07/11/18 Discontinued Reported Medications Albuterol Sulfate* (Proair HFA*) 8.5 Gm Hfa.aer.ad, 2 PUFF INH Q6H PRN for WHEEZING AND SOB, #1 INHALER 08/13/18 Hydrocortisone* Topical (Hydrocortisone* Topical) 2.5%-28.3 Gm Cream..g., 1 APPL IC TOP BID PRN for ITCHING, TUB 08/13/18 Acetaminophen* (Acetaminophen*) 500 MG Extra Strength Tablet, 500 MG PO Q6H PRN for PAIN AND OR ELEVATED TEMP, TAB 08/13/18 Dabigatran Etexilate Mesylate* (Pradaxa*) 75 Mg Cap, 75 MG PO BID, CAP 07/11/18 Discontinued Scripts Ipratropium-Albuterol (Ipratropium-Albuterol) 0.5-3 Mg/3 Ml Ampul.neb, 3 ML HHN Q4H RESP THERAPY for 30 Days Prov:JASPER SAHU 07/19/18 Allergies Allergies: Coded Allergies: No Known Allergies (Verified Allergy, Unknown, 08/29/18) PMhx/Soc History of Surgery: Yes (carotid endarterectomy, multiple thoracentesis) Anesthesia Reaction: No Hx 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 Disorder: No Hx Respiratory Disorders: Yes (COPD, current smoker, PNA, effusions, lung CA) Hx Cardiac Disorders: Yes (HTN, CHF, afib, cardiomyopathy EF 35-50%, hyperlipidemia, CAD, PVD) Hx Psychiatric Problems: No Hx Alcohol Use: Yes (daily vodka) Hx Substance Use: No Hx Tobacco Use: Yes (2 cigs / day) Smoking Status: Current every day smoker FmHx No family history relevant to presenting complaint Physical Exam Vitals Vital Signs Date Temp Pulse Resp B/P (MAP) Pulse Ox O2 O2 Flow FiO2 Time Delivery Rate 08/29/18 98.0 101 26 146/73 96 BIPAP 18:40 (97) 08/29/18 107 36 147/73 95 BIPAP 18:24 (97) 08/29/18 147 97 50 17:56 08/29/18 115 33 139/74 93 Nasal 8.0 17:15 (95) Cannula 08/29/18 152 33 154/84 97 Nasal 8.0 17:01 (107) Cannula 08/29/18 Simple 8 16:10 Mask 08/29/18 Simple 10.0 16:07 Mask 08/29/18 99.4 123 33 136/109 97 16:07 (118) Physical Exam Const: Ill-appearing, moderate to severe respiratory distress Head: Atraumatic Eyes: Normal Conjunctiva ENT: Normal External Ears, Nose and Mouth. Neck: Full range of motion. No meningismus. Resp: Breath sounds markedly diminished bilaterally especially at the bases. Scattered rhonchi but no wheezes. Cardio: Irregular rhythm, tachycardic no murmurs. Abd: Soft, non tender, non distended. Normal bowel sounds Skin: No petechiae or rashes Back: No midline or flank tenderness Ext: No cyanosis, or edema. No calf swelling or tenderness. Neur: Awake and alert Psych: Normal Mood and Affect Result Diagram: 08/29/18 1629 08/29/18 1629 Results 24 hrs Laboratory Tests Test 08/29/18 16:16 08/29/18 16:27 08/29/18 16:29 08/29/18 17:17 Blood Gas Blood arterial Specimen Source Arterial Blood 08/29/2018 6:20:3 Date Drawn 2 PM Arterial Blood 7.315 pH (Temp corrected) Arterial Blood 53.9 mmhg pCO2 (Temp correct) Arterial Blood 76.5 mmHG pO2 (Temp corrected) Arterial Blood 26.8 mmol/L HCO3 Arterial Blood 0 mmol/L Base Excess Arterial Blood 93.1 mmHG Oxygen Saturatio n Harshad Test ACCEPTAB Arterial Blood Right Radial Gas Puncture Site Arterial 0.2 % Blood Carboxyhem oglobin Arterial Blood 0.2 % Methemoglobin Blood Gas A-a O2 219.4 mmHg Differential Oxyhemoglobin 92.7 % Percent Blood Gas 37.0 C Temperature Blood Gas Actual 20 Respiration Rate Blood Gas MASK - BIPAP Modality FiO2 50.0 % Blood Gas 10 Pressure Support Blood Gas 15/5 IPAP/EPAP Ratio Blood Gas ab Notified Whom Blood Gas 08/29/2018 6:28:1 Notified Time 6 PM Thyroid 3.400 MIU/L Stimulating Hormone (TSH) White Blood 29.4 10^3/ul Count Red Blood Count 3.58 10^6/ul Hemoglobin 10.1 g/dl Hematocrit 31.0 % Mean Corpuscular 86.6 fl Volume Mean Corpuscular 28.2 pg Hemoglobin Mean Corpuscular 32.6 g/dl Hemoglobin Naz nt Red Cell 14.4 % Distribution Width Platelet Count 606 10^3/UL Mean Platelet 8.9 fl Volume Immature 0.900 % Granulocytes % Neutrophils % % Segmented 84 % Neutrophils % (Manual) Band Neutrophils 8 % % (Manual) Lymphocytes % % Lymphocytes % 3 % (Manual) Monocytes % % Monocytes % 5 % (Manual) Eosinophils % % Basophils % % Nucleated Red 0.0 /100WBC Blood Cells % Immature 0.260 10^3/ul Granulocytes # Neutrophils # 10^3/ul Neutrophils # 25.4 10^3/ul (Manual) Band Neutrophils 2.3 10^3/ul # Lymphocytes 0.8 10^3/ul (Manual) Lymphocytes # 10^3/ul Monocytes # 10^3/ul Monocytes # 1.4 10^3/ul (Manual) Eosinophils # 10^3/ul Basophils # 10^3/ul Nucleated Red 10^3/ul Blood Cells # Platelet INCREASED Estimate Polychromasia 2+ Poikilocytosis 2+ Prothrombin Time 23.4 Sec Prothrombin Time 1.8 Ratio INR 2.07 International Normalized Ratio Activated 52.3 Sec Partial Thrombop last Time Sodium Level 133 mmol/L Potassium Level 4.5 mmol/L Chloride Level 95 mmol/L Carbon Dioxide 25 mmol/L Level Anion Gap 13 Blood Urea 26 mg/dl Nitrogen Creatinine 1.22 mg/dl Est Glomerular mL/min Filtrat Rate mL/min Glucose Level 153 mg/dl Calcium Level 9.2 mg/dl Troponin I 0.047 ng/ml B-Type 69521 PG/ML Natriuretic Peptide Digoxin Level 0.7 ng/ml POC Venous 1.7 mmol/L Lactate Current Medications Medications Dose Sig/Yamileth Start Time Status Last (Trade) Ordered Route PRN Stop Time Admin Dose Reason Admin Diltiazem 20 mg ONCE ONCE 08/29/18 DC 08/29/18 HCl IV 16:30 17:05 (Cardizem Iv) 08/29/18 16:32 Furosemide 40 mg ONCE ONCE 08/29/18 DC 08/29/18 (Lasix) IV 16:30 17:03 08/29/18 16:32 Vancomycin 250 ml @ ONCE STAT 08/29/18 DC 08/29/18 HCl 125 mls/hr IVPB 17:26 18:48 08/29/18 19:25 Piperacillin 100 ml @ ONCE STAT 08/29/18 DC 08/29/18 Sod/ 200 mls/hr IVPB 17:26 18:04 Tazobactam 08/29/18 17:55 Sod Digoxin 250 mcg ONCE ONCE 08/29/18 DC 08/29/18 (Digoxin) IV 18:30 18:14 08/29/18 18:31 Diltiazem 20 mg ONCE ONCE 08/29/18 DC 08/29/18 HCl IV 18:30 18:14 (Cardizem Iv) 08/29/18 18:31 Diltiazem 125 ml @ [id number] IV 08/29/18 08/29/18 HCl 10 mls/hr 18:30 18:36 Procedures/MDM DOCUMENTS REVIEWED: ED nurse, prior medical records including recent admission 08/13 through 08/21/2018 for atrial fibrillation and congestive heart failure EKG: Time: 1627. Atrial fibrillation with RVR. Ventricular rate 151. Diffuse ST depression and T wave changes but no acute ST elevation. Normal QRS. No QT prolongation. My Interpretation IMAGING: Chest AP portable: PROCEDURE: XR Chest. CLINICAL INDICATION: Shortness of breath. TECHNIQUE: Portable AP upright view of the chest was obtained. COMPARISON: 08/15/2018 FINDINGS: Moderate to marked cardiac silhouette enlargement is again demonstrated. Right lower lobe infiltrate increased compared to the prior examination unable to exclude pneumonia with an enlarging parapneumonic effusion. The left pleural effusion is stable and chronic. There is no evidence of pneumothorax or pulmonary vascular congestion. The osseous structures are intact with no evidence for acute abnormality. Atherosclerotic calcification of the aorta is present. RPTAT:HJJR IMPRESSION: 1. Compared to the study of 08/15/2018, there has been development of a right lower lobe infiltrate and slight enlargement of the previously seen right pleural effusion, findings unable to exclude pneumonia with a parapneumonic effusion. Correlate to fever and leukocytosis clinically. 2. Stable cardiac silhouette enlargement and left pleural effusion with adjacent compressive atelectasis of the left lower lobe. 3. Aortic atherosclerosis is present. Physician Lj Date Time Electronically viewed and signed by Physician Lj on 08/29/2018 17:01 JR/ [employer] DECISION MAKIN-year-old male history of hypertension, hyperlipidemia, congestive heart failure, EF 35 to 40%, lung cancer, atrial fibrillation with RVR, chronic kidney disease, pleural effusions and anemia presents to the ED via rescue ambulance complaining of a several day history of worsening shortness of breath. Patient presents with atrial fibrillation with rapid ventricular response requiring multiple intravenous doses of diltiazem and a diltiazem drip for rate control. Acute on chronic respiratory failure responded to supplemental oxygen and noninvasive positive pressure ventilation. Chest x-ray reveals bilateral pleural effusions and right lower lobe infiltrate consistent with pneumonia. Multiple criteria for systemic inflammatory response syndrome and the infection source is pneumonia. Lactate is less than 2 mmol/L. No hypotension or criteria for severe sepsis or septic shock. Antibiotics after cultures. Fluids not given due to patient's history of congestive heart failure and risk of volume overload. Admit to telemetry for further evaluation and management. CRITICAL CARE TIME: Due to the high probability of sudden clinically significant respiratory, hemodynamic and cardiovascular deterioration, this patient with A. fib with RVR, respiratory failure, pneumonia and CHF required multiple, frequent reevaluations of vital signs and response to therapy. Additional critical care time was spent in extensive review of prior medical records, obtaining supplemental history from EMS as well as consultation with cardiology and arranging for admission and ongoing care with Dr. Saleh. TOTAL CRITICAL CARE TIME: 45 minutes not including other separately reportable procedures. CALLS/CONSULTS: Time: 16:50, Dr. Saleh CALLS/CONSULTS: Time: 16:50, Dr. Hall. PATIENT CARE TRANSITIONED: Time: 17:40, Dr. Saleh. Counseled patient regarding diagnosis, diagnostic results and plan for admission. Departure Diagnosis: Primary Impression: Acute respiratory failure Respiratory failure complication: hypoxia and hypercapnia Qualified Codes: J96.01 - Acute respiratory failure with hypoxia; J96.02 - Acute respiratory failure with hypercapnia Additional Impressions: Atrial fibrillation with RVR Pneumonia Pneumonia type: due to unspecified organism Laterality: right Lung location: lower lobe of lung Qualified Codes: J18.1 - Lobar pneumonia, unspecified organism Pleural effusion SIRS (systemic inflammatory response syndrome) Condition: Serious ARVIN BORRERO MD Aug 29, 2018 16:16
[2018-08-29] MEDS ORDERED: DILTIAZEM 25 MG INJ IV ONE ×2 (16:30→18:30)
[2018-08-29] MEDS ORDERED: FUROSEMIDE 40 MG INJ IV ONE (16:30)
[2018-08-29] MEDS ORDERED: ACET-2047 PO (16:55)
[2018-08-29] MEDS ORDERED: TUBE5VIA ID (16:57)
[2018-08-29] MEDS ORDERED: BISA5TAB6 PO (16:59)
[2018-08-29] MEDS ORDERED: APIX5TAB PO (17:00)
[2018-08-29] MEDS ORDERED: FER325 PO (17:00)
[2018-08-29] MEDS ORDERED: DOCU-144 PO (17:00)
[2018-08-29] MEDS ORDERED: IPRA3AMP29 INHALATION (17:01)
[2018-08-29] MEDS ORDERED: ONDA4TAB13 PO (17:02)
[2018-08-29] MEDS ORDERED: MUPI15CR9 TOP (17:04)
[2018-08-29] MEDS ORDERED: VANCOMYCIN 1 GM (PMX) 250 ML IVPB STA (17:26)
[2018-08-29] MEDS ORDERED: PIPER-TAZO 3.375 GM IV (PMX) 100 ML IVPB STA (17:26)
[2018-08-29] MEDS ORDERED: DIGOXIN 500 MCG INJ IV ONE (18:30)
[2018-08-29] MEDS: DILTIAZEM-D5W 125MG/125ML DRIP 125 ML IV SCH (18:36)
[2018-08-29] MEDS ORDERED: ONDANSETRON 4 MG INJ IV PRN (19:00)
[2018-08-29] MEDS ORDERED: ACETAMINOPHEN 325 MG TAB PO PRN (19:00)
--- NOTE | 2018-08-29 20:24 | CONS ---
DATE OF ADMISSION: 08/29/2018 DATE OF CONSULTATION: 08/29/2018 REASON FOR CONSULTATION: Atrial fibrillation with rapid ventricular response, congestive heart failure. REQUESTING PHYSICIAN: Paul Dean MD HISTORY OF PRESENT ILLNESS: Mr. Nielsen is an 78-year-old male with history of diastolic congestive heart failure by most recent echo 07/2018 revealing an EF of 65%; atrial fibrillation with recurrent bouts of rapid ventricular response on baseline Eliquis, Cardizem, digoxin; chronic obstructive pulmonary disease; hypertension, recently admitted for CHF exacerbation complicated by COPD and atrial fibrillation with rapid ventricular response, discharged to outpatient followup and now represents with complaints of worsening shortness of breath and associated palpitations. Initially upon arrival, temperature of 99.4, blood pressure 136/109, pulse 123 and atrial fibrillation, respiration rate 33, saturating 97%. The patient's labs were notable for white count of 29.4, hemoglobin of 10.1, sodium 132, potassium 4.5, creatinine 1.22, BUN of 26. BNP of 22,400. Troponin negative. INR of 2.0. Digoxin level 0.7. ABG revealing a pH of 7.315, a PaO2 of 76, a pCO2 of 53.9. The patient underwent a chest x-ray revealing right lower lobe infiltrate and preexisting right pleural effusion. Findings are concerning for pneumonia with parapneumonic effusion. Stable cardiac silhouette enlargement, left pleural effusion. The patient's electrocardiogram revealed atrial fibrillation with rapid ventricular response at 144, normal axis, normal intervals with nonspecific ST-T abnormalities diffusely. PAST MEDICAL HISTORY: As above in HPI. MEDICATIONS CURRENTLY IN HOSPITAL: 1. Diltiazem IV drip. 2. Vancomycin. MEDICATIONS PRIOR TO ADMIT: 1. Eliquis 5 mg b.i.d. 2. Ferrous sulfate 325 mg daily. 3. Atenolol 12.5 mg daily. 4. Digoxin 0.125 mg daily. 5. Diltiazem 30 mg p.o. q.8. 6. Tylenol p.r.n. 7. Aspirin p.r.n. 8. Lasix 40 mg p.o. daily. 9. Potassium chloride. 10. Dulcolax. 11. Colace. 12. Milk of magnesia. 13. Zofran. 14. Protonix 40 mg daily. ALLERGIES: NO KNOWN DRUG ALLERGIES. SOCIAL HISTORY: No current tobacco, ETOH, or illicit drug use. FAMILY HISTORY: No history of sudden cardiac or early CAD. REVIEW OF SYSTEMS: As above in HPI. CONSTITUTIONAL: No fevers, chills. PULMONARY: Shortness of breath, respiratory failure on BiPAP. GASTROINTESTINAL: No vomiting. GENITOURINARY: No hematuria. MUSCULOSKELETAL: Degenerative joint disease. PSYCHIATRIC: The patient denies depression. NEUROLOGIC: No documented history of CVA. ENDOCRINE: Diabetes mellitus. CARDIOVASCULAR: Atrial fibrillation, congestive heart failure. PHYSICAL EXAMINATION: VITAL SIGNS: Temperature of 98, blood pressure most recent 146/73, pulse 101, respiratory rate 26, satting 96% on BiPAP. GENERAL: The patient is alert, awake with BiPAP in place. NECK: JVP approximately 9 cm of water. CHEST: Fair air movement with mild expiratory wheeze. HEART: Tachycardic, irregularly irregular, I/ systolic murmur. ABDOMEN: Positive bowel sounds, soft. EXTREMITIES: No significant pitting edema, 1+ pulses bilaterally, posterior tibial. LABORATORY DATA: As above in HPI. No further labs for my review at this time. IMAGING STUDIES: As above in HPI. No further imaging studies for my review at this time. ECG: As above in HPI. No further electrocardiograms for my review at this time. IMPRESSION: 1. Atrial fibrillation with a rapid ventricular response. 2. Congestive heart failure exacerbation, diastolic by most recent echo in July 2018 revealing a preserved EF of 65%, acute on chronic by history. 3. Hypertension, mildly elevated. 4. Respiratory distress. 5. Shortness of breath, likely multifactorial secondary to heart failure and chronic obstructive pulmonary disease exacerbation. 6. Probable chronic obstructive pulmonary disease exacerbation. 7. Pneumonia, right lower lobe by chest x-ray, new since discharge, question aspiration. 8. Hyponatremia. 9. Severe leukocytosis of 29.4. 10. Anemia, mild. 11. Coagulopathy, likely secondary to baseline Eliquis. RECOMMENDATIONS: 1. At this time, would admit patient to possible ICU versus telemetry. Depending on patient's ongoing respiratory status. 2. Would resume the patient on Lasix diuresis, following strict I's and O's to grade diuresis closely and resume the patient's baseline atenolol and diltiazem and patient is status post dose of IV push digoxin and will give one additional IV push dose in 6 hours to assure good heart rate control and then possibly thereafter wean off the patient's diltiazem drip and return to p.o. as possible. 3. We will complete a rule out for myocardial infarction to ensure the patient's coughing symptoms have not resulted in an acute coronary syndrome such as an acute myocardial infarction in the setting of stress of respiratory distress and tachycardia from atrial fibrillation. 4. Would treat the patient with antibiotics he is doing, bronchodilators and consider steroids if necessary. 5. We will continue to check serial EKGs to assess for significant ongoing changes, thus a repeat EKG in the morning, EKG for any complaints of chest pain or change in rhythm. 6. We will discontinue the patient's baseline Eliquis as possible and follow coagulopathy closely. Thank you for allowing me to take part in the care of this patient. I will continue to follow along very closely with you. Further recommendations to be made as the patient progresses through his inpatient hospital clinical course. Dictated By: CECE CESPEDES/JACQUELINE Conf#: [id number] DID#: [id number] CC: PAUL DEAN MD;*EndCC* MTDD
[2018-08-29 20:30] VITALS: PULSE 89
[2018-08-29 20:57] VITALS: BP 178/78; PULSE 98; RESP 22
[2018-08-29] MEDS: APIXABAN 5 MG TABLET PO SCH (21:39)
[2018-08-29 21:44] VITALS: BP 157/67; PULSE 103; RESP 23
[2018-08-29] MEDS: DILTIAZEM 30 MG TAB PO SCH (21:47)
[2018-08-29 22:07] VITALS: PULSE 90
[2018-08-29 23:31] VITALS: BP 147/69; PULSE 97; RESP 21
[2018-08-30] VITALS (60 sets, daily range): BP systolic 69–141; BP diastolic 34–73; PULSE 71–102; RESP 20–27
[2018-08-30] MEDS ORDERED: DIGOXIN 500 MCG INJ IV ONE
[2018-08-30] MEDS ORDERED: LORAZEPAM 2 MG INJ IV PRN (01:00)
[2018-08-30] MEDS ORDERED: DOCUSATE SODIUM 100 MG CAP PO PRN (02:00)
[2018-08-30] MEDS: DILTIAZEM 30 MG TAB PO SCH ×3 (06:00→14:00)
[2018-08-30] MEDS: PANTOPRAZOLE (EC) 40 MG TAB PO SCH ×2 (06:00→06:24)
[2018-08-30] MEDS: FUROSEMIDE 40 MG INJ IV SCH ×2 (06:23→18:24)
[2018-08-30] MEDS: DILTIAZEM-D5W 125MG/125ML DRIP 125 ML IV SCH (08:15)
[2018-08-30] MEDS ORDERED: POTASSIUM CHLORIDE (SR) 20 MEQ TAB PO SCH (09:00)
[2018-08-30] MEDS: APIXABAN 5 MG TABLET PO SCH (09:00)
[2018-08-30] MEDS ORDERED: ATENOLOL 25 MG TAB PO SCH (09:00)
[2018-08-30] MEDS ORDERED: FERROUS SULFATE (EC) 325 MG TAB PO SCH (09:00)
[2018-08-30] MEDS ORDERED: ENOXAPARIN 40 MG/0.4 ML SYG SC SCH (09:00)
--- NOTE | 2018-08-30 11:00 | HP ---
JASPER BELTRAN 08/30/18 1100: Date/Time of Note Date/Time of Note DATE: 08/30/18 TIME: 10:59 Assessment/Plan VTE Prophylaxis Pharmacological prophylaxis: apixaban Lines/Catheters IV Catheter Type (from Nrs): Peripheral IV Urinary Cath still in place: No Assessment/Plan Hospital Course 1. SIRS due to right side pneumonia. Respiratory acidosis. Hypoxic respiratory failure. 2. ALOC, lethargic. More likely after Lorazepam injection, can be mixed etiology 3. Atrial fibrillation, now flutter with RVR 4. Hypertension, 5. Hyperlipidemia 6. Congestive heart failure, EF 35 to 40%, 7. Hx of right side lung cancer, in remission 8. Chronic kidney disease, creatinine baseline 1.6 9. Hx of pleural effusions, right and left and numerous thoracentesis 10. Pleural effusion right side Assessment/Plan -stat ICU transfer -c/w BIPAP 65 % -ABG stat -pulmonary consult called dr Guajardo -Cardiology consult dr Hall -DVT proph. Eliquiz 5 mg po BID -GI proph. Protonix -resp. treatment -pt is on cardizem drip -ID consult aware Result Diagram: 08/30/18 0521 08/30/18 0521 Results 24hrs Laboratory Tests Test 08/29/18 16:16 08/29/18 16:27 08/29/18 16:29 08/29/18 17:17 Blood Gas Blood arterial Specimen Source Arterial Blood 08/29/2018 6:20:3 Date Drawn 2 PM Arterial Blood pH 7.315 L (Temp corrected) Arterial Blood 53.9 H pCO2 (Temp correct) Arterial Blood 76.5 L pO2 (Temp corrected) Arterial Blood 26.8 H HCO3 Arterial Blood 0 Base Excess Arterial Blood 93.1 L Oxygen Saturation Harshad Test ACCEPTAB Arterial Blood Right Radial Gas Puncture Site Arterial 0.2 Blood Carboxyhemo globin Arterial Blood 0.2 Methemoglobin Blood Gas A-a O2 219.4 H Differential Oxyhemoglobin 92.7 L Percent Blood Gas 37.0 Temperature Blood Gas Actual 20 Respiration Rate Blood Gas MASK - BIPAP Modality FiO2 50.0 Blood Gas 10 Pressure Support Blood Gas 15/5 IPAP/EPAP Ratio Blood Gas ab Notified Whom Blood Gas 08/29/2018 6:28:1 Notified Time 6 PM Thyroid 3.400 Stimulating Hormone (TSH) White Blood Count 29.4 #H Red Blood Count 3.58 L Hemoglobin 10.1 L Hematocrit 31.0 L Mean Corpuscular 86.6 Volume Mean Corpuscular 28.2 L Hemoglobin Mean Corpuscular 32.6 Hemoglobin Concen t Red Cell 14.4 Distribution Width Platelet Count 606 #H Mean Platelet 8.9 Volume Immature 0.900 H Granulocytes % Neutrophils % Segmented 84 H Neutrophils % (Manual) Band Neutrophils 8 H % (Manual) Lymphocytes % Lymphocytes % 3 L (Manual) Monocytes % Monocytes % 5 (Manual) Eosinophils % Basophils % Nucleated Red 0.0 Blood Cells % Immature 0.260 H Granulocytes # Neutrophils # Neutrophils # 25.4 H (Manual) Band Neutrophils 2.3 H # Lymphocytes 0.8 (Manual) Lymphocytes # Monocytes # Monocytes # 1.4 H (Manual) Eosinophils # Basophils # Nucleated Red Blood Cells # Platelet Estimate INCREASED Polychromasia 2+ Poikilocytosis 2+ Prothrombin Time 23.4 #H Prothrombin Time 1.8 Ratio INR International 2.07 Normalized Ratio Activated 52.3 H Partial Thrombopl ast Time Sodium Level 133 L Potassium Level 4.5 Chloride Level 95 L Carbon Dioxide 25 Level Anion Gap 13 Blood Urea 26 H Nitrogen Creatinine 1.22 Est Glomerular Filtrat Rate mL/min Glucose Level 153 Calcium Level 9.2 Troponin I 0.047 B-Type 49567 H Natriuretic Peptide Digoxin Level 0.7 L POC Venous 1.7 Lactate Test 08/29/18 19:08 08/29/18 20:24 08/30/18 00:33 08/30/18 05:21 Lactic Acid Level 1.7 1.8 Troponin I 0.084 0.077 White Blood Count 39.1 #H Red Blood Count 3.62 L Hemoglobin 10.1 L Hematocrit 32.1 L Mean Corpuscular 88.7 Volume Mean Corpuscular 27.9 L Hemoglobin Mean Corpuscular 31.5 L Hemoglobin Concen t Red Cell 14.6 H Distribution Width Platelet Count 693 H Mean Platelet 9.0 Volume Immature 0.700 H Granulocytes % Neutrophils % Segmented 58 Neutrophils % (Manual) Band Neutrophils 31 H % (Manual) Lymphocytes % Lymphocytes % 2 L (Manual) Monocytes % Monocytes % 9 (Manual) Eosinophils % Basophils % Nucleated Red 0.0 Blood Cells % Immature 0.260 H Granulocytes # Neutrophils # Neutrophils # 27.4 H (Manual) Band Neutrophils 12.1 H # Lymphocytes 0.7 L (Manual) Lymphocytes # Monocytes # Monocytes # 3.5 H (Manual) Eosinophils # Basophils # Nucleated Red Blood Cells # Platelet Estimate INCREASED Giant Platelets 4 H Polychromasia 1+ Poikilocytosis 3+ Anisocytosis 1+ Ovalocytes 1+ Sodium Level 138 Potassium Level 5.2 H Chloride Level 98 Carbon Dioxide 27 Level Anion Gap 13 Blood Urea 33 H Nitrogen Creatinine 1.61 H Est Glomerular Filtrat Rate mL/min Glucose Level 113 # Calcium Level 9.3 HPI/ROS Admit Date/Time Admit Date/Time Aug 29, 2018 at 18:56 Hx of Present Illness This 78-year-old male history of hypertension, hyperlipidemia, congestive heart failure, EF 35 to 40%, right side lung cancer, atrial fibrillation with RVR, chronic kidney disease, pleural effusions and anemia presents to the ED via rescue ambulance complaining of a several day history of worsening shortness of breath. Patient was admitted for pneumonia, CHFfrom 08/13 through 08/21/2018 consecutively was discharge to [facility]. He has been having worsening s hortness of breath since discharge. Pt reported palpitations, no no chest pain, nausea, vomiting or diaphoresis. He had chronic, nonproductive cough, but no hemoptysis IN ER. Denies leg pain or swellingin ER. He denied fevers or chills in ER. Now pt is lethargic, non verbal. ROS Subjective hx not possible: pt non-verbal, pt critical status PMH/Family/Social Past Medical History Medical History: congestive heart failure, coronary artery disease, hypertension, renal disease Medications Current Medications Diltiazem HCl 125 ml @ 10 mls/hr [id number] IV Last administered on 08/30/18at 08:15; Admin Dose 10 MLS/HR; Start 08/29/18 at 18:30 Ondansetron HCl (Zofran Inj) 4 mg ER BRIDGE PRN IV NAUSEA/VOMITING; Start 08/29/18 at 19:00; Stop 08/30/18 at 18:59 Diltiazem HCl (Cardizem) 30 mg Q8 PO Last administered on 08/29/18at 21:47; Admin Dose 30 MG; Start 08/29/18 at 22:00 Furosemide (Lasix) 40 mg BID DIURETICS IV Last administered on 08/30/18at 06:23; Admin Dose 40 MG; Start 08/30/18 at 06:00 Apixaban (Eliquis) 5 mg BID PO Last administered on 08/29/18at 21:39; Admin Dose 5 MG; Start 08/29/18 at 21:00 Lorazepam (Ativan) 1 mg Q12H PRN IV AGITATION/ANXIETY Last administered on 08/30/18at 00:55; Admin Dose 1 MG; Start 08/30/18 at 01:00 Atenolol (Tenormin) 12.5 mg BID PO ; Start 08/30/18 at 09:00 Digoxin (Digoxin) 0.125 mg DAILY@13 PO ; Start 08/30/18 at 13:00 Docusate Sodium (Colace) 100 mg BID PRN PO CONSTIPATION; Start 08/30/18 at 02:00 Ferrous Sulfate (Ferrous Sulfate (Ec)) 325 mg DAILY PO ; Start 08/30/18 at 09:00 Pantoprazole (Protonix Tab) 40 mg DAILY@06 PO ; Start 08/30/18 at 06:00 Potassium Chloride (Klor-Con 20) 20 meq DAILY PO ; Start 08/30/18 at 09:00 Coded Allergies: No Known Allergies (Verified Allergy, Unknown, 08/29/18) Past Surgical History Past Surgical Hx: coronary bypass surgery, other (left endarartectomy carotid) Family History Significant Family History: no pertinent family hx Social History Alcohol Use: none Smoking Status: Current every day smoker Drug Use: none Exam/Review of Systems Vital Signs Vitals Vital Signs Date Temp Pulse Resp B/P (MAP) Pulse Ox O2 O2 Flow FiO2 Time Delivery Rate 08/30/18 74 88 65 09:43 08/30/18 97.9 26 141/59 BIPAP 07:12 (86) 08/29/18 10.0 23:10 Intake and Output 08/29/18 08/29/18 08/30/18 1515:00 23:00 07:00 IntakeIntake Total 50 ml OutputOutput Total 400 ml BalanceBalance -350 ml Exam Exam on BIPAP 65 % Constitutional: oriented, non-verbal, distress Head: normocephalic Respiratory: diminished breath sounds, other (rhonchi bilaterally, on BIPAP) Cardiovascular: regular rate and rhythm Gastrointestinal: soft Genitourinary - Male: CVA tenderness; No nl penis, No nl scrotum, No discharge, No other (candom cath) Skin: ecchymosis FIDEL GAVIN MD 08/30/18 1518: Assessment/Plan Assessment/Plan Assessment/Plan pt seen and examined with [employer] TRANSFERED TO ICU DUE TO AMS, RESP ACIDOSIS ON BIPAP SP INTUBATION> Vent managemtn per pul iv abx with leukocytosis bld cx on dilt gtt for AFIB SP Fluid bolus hold narcotics/ativan Result Diagram: 08/30/18 0521 08/30/18 0521 PMH/Family/Social Past Medical History Coded Allergies: No Known Allergies (Verified Allergy, Unknown, 08/29/18) JASPER SAHU Aug 30, 2018 11:00 FIDEL GAVIN MD Aug 30, 2018 15:18
[2018-08-30] MEDS ORDERED: VANCOMYCIN IV PER PHARMACY XX SCH (12:00)
[2018-08-30] MEDS ORDERED: CEFEPIME 1GM/50 ML (PMX) 50 ML IVPB ONE (12:00)
--- NOTE | 2018-08-30 12:07 | CONS ---
Consult Date/Type/Reason Admit Date/Time Aug 29, 2018 at 18:56 Initial Consult Date Date/Time of Note DATE: 08/30/18 TIME: 12:02 Subjective I was called to see pt at bedside - looks clinically decompensated - on BiPAP - BP stable, but given labored breathing will advise transfer to ICU and stat ABG - will follow. NO F/C/N/V + increased work of breathing, clinically worse Objective Vitals Vital Signs Date Temp Pulse Resp B/P (MAP) Pulse Ox O2 O2 Flow FiO2 Time Delivery Rate 08/30/18 98.3 72 27 115/51 88 BIPAP 11:10 (72) 08/30/18 65 11:01 08/29/18 10.0 23:10 Intake and Output 08/29/18 08/29/18 08/30/18 1515:00 23:00 07:00 IntakeIntake Total 50 ml OutputOutput Total 400 ml BalanceBalance -350 ml Exam General: WN/WD/NAD, AOx 0 confused HEENT: Unicetric/atraumatic/EOMI (does not follow commands) - BiPAP NECK: JVD elevated, no thyromegaly Lymph: no lymphadenopathy HEART: irregular with no S3, II/ systolic murmur at apex LUNGS: Coarse sounds, + wheezing ABD: soft, NT, ND, +BS : Intact Neuro: non focal SKIN: chronic changes EXT: trace edema Results/Medications Result Diagram: 08/30/1821 08/30/18 0521 Results 24 hrs Laboratory Tests Test 08/29/18 16:16 08/29/18 16:27 08/29/18 16:29 08/29/18 17:17 Blood Gas Blood arterial Specimen Source Arterial Blood 08/29/2018 6:20:3 Date Drawn 2 PM Arterial Blood pH 7.315 L (Temp corrected) Arterial Blood 53.9 H pCO2 (Temp correct) Arterial Blood 76.5 L pO2 (Temp corrected) Arterial Blood 26.8 H HCO3 Arterial Blood 0 Base Excess Arterial Blood 93.1 L Oxygen Saturation Harshad Test ACCEPTAB Arterial Blood Right Radial Gas Puncture Site Arterial 0.2 Blood Carboxyhemo globin Arterial Blood 0.2 Methemoglobin Blood Gas A-a O2 219.4 H Differential Oxyhemoglobin 92.7 L Percent Blood Gas 37.0 Temperature Blood Gas Actual 20 Respiration Rate Blood Gas MASK - BIPAP Modality FiO2 50.0 Blood Gas 10 Pressure Support Blood Gas 15/5 IPAP/EPAP Ratio Blood Gas ab Notified Whom Blood Gas 08/29/2018 6:28:1 Notified Time 6 PM Thyroid 3.400 Stimulating Hormone (TSH) White Blood Count 29.4 #H Red Blood Count 3.58 L Hemoglobin 10.1 L Hematocrit 31.0 L Mean Corpuscular 86.6 Volume Mean Corpuscular 28.2 L Hemoglobin Mean Corpuscular 32.6 Hemoglobin Concen t Red Cell 14.4 Distribution Width Platelet Count 606 #H Mean Platelet 8.9 Volume Immature 0.900 H Granulocytes % Neutrophils % Segmented 84 H Neutrophils % (Manual) Band Neutrophils 8 H % (Manual) Lymphocytes % Lymphocytes % 3 L (Manual) Monocytes % Monocytes % 5 (Manual) Eosinophils % Basophils % Nucleated Red 0.0 Blood Cells % Immature 0.260 H Granulocytes # Neutrophils # Neutrophils # 25.4 H (Manual) Band Neutrophils 2.3 H # Lymphocytes 0.8 (Manual) Lymphocytes # Monocytes # Monocytes # 1.4 H (Manual) Eosinophils # Basophils # Nucleated Red Blood Cells # Platelet Estimate INCREASED Polychromasia 2+ Poikilocytosis 2+ Prothrombin Time 23.4 #H Prothrombin Time 1.8 Ratio INR International 2.07 Normalized Ratio Activated 52.3 H Partial Thrombopl ast Time Sodium Level 133 L Potassium Level 4.5 Chloride Level 95 L Carbon Dioxide 25 Level Anion Gap 13 Blood Urea 26 H Nitrogen Creatinine 1.22 Est Glomerular Filtrat Rate mL/min Glucose Level 153 Calcium Level 9.2 Troponin I 0.047 B-Type 78442 H Natriuretic Peptide Digoxin Level 0.7 L POC Venous 1.7 Lactate Test 08/29/18 19:08 08/29/18 20:24 08/30/18 00:33 08/30/18 05:21 Lactic Acid Level 1.7 1.8 Troponin I 0.084 0.077 White Blood Count 39.1 #H Red Blood Count 3.62 L Hemoglobin 10.1 L Hematocrit 32.1 L Mean Corpuscular 88.7 Volume Mean Corpuscular 27.9 L Hemoglobin Mean Corpuscular 31.5 L Hemoglobin Concen t Red Cell 14.6 H Distribution Width Platelet Count 693 H Mean Platelet 9.0 Volume Immature 0.700 H Granulocytes % Neutrophils % Segmented 58 Neutrophils % (Manual) Band Neutrophils 31 H % (Manual) Lymphocytes % Lymphocytes % 2 L (Manual) Monocytes % Monocytes % 9 (Manual) Eosinophils % Basophils % Nucleated Red 0.0 Blood Cells % Immature 0.260 H Granulocytes # Neutrophils # Neutrophils # 27.4 H (Manual) Band Neutrophils 12.1 H # Lymphocytes 0.7 L (Manual) Lymphocytes # Monocytes # Monocytes # 3.5 H (Manual) Eosinophils # Basophils # Nucleated Red Blood Cells # Platelet Estimate INCREASED Giant Platelets 4 H Polychromasia 1+ Poikilocytosis 3+ Anisocytosis 1+ Ovalocytes 1+ Sodium Level 138 Potassium Level 5.2 H Chloride Level 98 Carbon Dioxide 27 Level Anion Gap 13 Blood Urea 33 H Nitrogen Creatinine 1.61 H Est Glomerular Filtrat Rate mL/min Glucose Level 113 # Calcium Level 9.3 Home Meds Reported Medications Mupirocin Calcium* (Mupirocin*) 2% - 15 Gram Cream..g., 1 APPLIC TOP BID, #1 TUB 08/29/18 Ondansetron Hcl* (Zofran*) 4 Mg Tab, 4 MG PO Q6H PRN for NAUSEA AND OR VOMITING, TAB 08/29/18 Ipratropium-Albuterol (Ipratropium-Albuterol) 0.5-3 Mg/3 Ml Ampul.neb, 3 ML INHALATION Q6 PRN for WHEEZING AND SOB, #30 VIAL 08/29/18 Ferrous Sulfate* (Ferrous Sulfate*) 325 Mg Tabec, 325 MG PO DAILY, TAB 08/29/18 Apixaban* (Eliquis*) 5 Mg Tablet, 5 MG PO BID, TAB 08/29/18 Docusate Sodium* (Colace*) 100 Mg Capsule, 100 MG PO BID, #60 CAP 08/29/18 Bisacodyl* (Bisacodyl*) 5 Mg Tablet.dr, 10 MG PO BID PRN for CONSTIPATION, TAB 08/29/18 Tuberculin,Purif.prot.deriv. (Aplisol) 5 Tub Unit/0.1 Ml Vial, 5 TUB ID ONCE, VIAL START DATE 08/31/18 -- END DATE 09/01/18 08/29/18 Acetaminophen* (Acetaminophen*) 650 Mg Tablet, 650 MG PO Q6H PRN for PAIN LEVEL 1-10/10, #30 TAB AND FEVER>101F 08/29/18 Guaifenesin (Guaifenesin) 100 Mg/5 Ml Liquid, 10 ML PO NEEDED PRN for COUGH, ML 08/13/18 Diltiazem Hcl* (Cardizem*) 30 Mg Tablet, 30 MG PO Q8 for CHF, #90 TAB HOLD IF SBP<110 OR HR<60 08/13/18 Aspirin* (Aspirin* EC) 81 Mg Tablet.dr, 81 MG PO DAILY, TAB 08/13/18 Digoxin* (Digitek*) 125 Mcg Tablet, 0.125 MG PO DAILY, TAB HOLD IF SBP<110 OR HR<60 08/13/18 Atenolol* (Atenolol*) 25 Mg Tablet, 12.5 MG PO BID, #60 TAB HOLD IF SBP<110 OR HR<60 08/13/18 Furosemide* (Furosemide*) 40 Mg Tablet, 40 MG PO DAILY, TAB HOLD IF SBP<110 OR HR<60 08/13/18 Magnesium Hydroxide* (Milk Of Magnesia*) 400 Mg/5 Ml Oral.susp, 30 ML PO DAILY, ML 08/13/18 Potassium Chloride* (Klor-Con*) 20 Meq Tabsr, 20 MEQ PO DAILY, TAB.SA 07/11/18 Pantoprazole* (Pantoprazole*) 40 Mg Tablet.dr, 40 MG PO DAILY, TAB 07/11/18 Discontinued Reported Medications Albuterol Sulfate* (Proair HFA*) 8.5 Gm Hfa.aer.ad, 2 PUFF INH Q6H PRN for WHEEZING AND SOB, #1 INHALER 08/13/18 Hydrocortisone* Topical (Hydrocortisone* Topical) 2.5%-28.3 Gm Cream..g., 1 APPLIC TOP BID PRN for ITCHING, TUB 08/13/18 Acetaminophen* (Acetaminophen*) 500 MG Extra Strength Tablet, 500 MG PO Q6H PRN for PAIN AND OR ELEVATED TEMP, TAB 08/13/18 Dabigatran Etexilate Mesylate* (Pradaxa*) 75 Mg Cap, 75 MG PO BID, CAP 07/11/18 Discontinued Scripts Ipratropium-Albuterol (Ipratropium-Albuterol) 0.5-3 Mg/3 Ml Ampul.neb, 3 ML HHN Q4H RESP THERAPY for 30 Days Prov:JASPER SAHU 07/19/18 Medications Current Medications Diltiazem HCl 125 ml @ 10 mls/hr [id number] IV Last administered on 08/30/18at 08:15; Admin Dose 10 MLS/HR; Start 08/29/18 at 18:30 Ondansetron HCl (Zofran Inj) 4 mg ER BRIDGE PRN IV NAUSEA/VOMITING; Start 08/29/18 at 19:00; Stop 08/30/18 at 18:59 Diltiazem HCl (Cardizem) 30 mg Q8 PO Last administered on 08/29/18at 21:47; Admin Dose 30 MG; Start 08/29/18 at 22:00 Furosemide (Lasix) 40 mg BID DIURETICS IV Last administered on 08/30/18at 06:23; Admin Dose 40 MG; Start 08/30/18 at 06:00 Apixaban (Eliquis) 5 mg BID PO Last administered on 08/29/18at 21:39; Admin Dose 5 MG; Start 08/29/18 at 21:00 Lorazepam (Ativan) 1 mg Q12H PRN IV AGITATION/ANXIETY Last administered on 08/30/18at 00:55; Admin Dose 1 MG; Start 08/30/18 at 01:00 Atenolol (Tenormin) 12.5 mg BID PO ; Start 08/30/18 at 09:00 Digoxin (Digoxin) 0.125 mg DAILY@13 PO ; Start 08/30/18 at 13:00 Docusate Sodium (Colace) 100 mg BID PRN PO CONSTIPATION; Start 08/30/18 at 02:00 Ferrous Sulfate (Ferrous Sulfate (Ec)) 325 mg DAILY PO ; Start 08/30/18 at 09:00 Pantoprazole (Protonix Tab) 40 mg DAILY@06 PO ; Start 08/30/18 at 06:00 Potassium Chloride (Klor-Con 20) 20 meq DAILY PO ; Start 08/30/18 at 09:00 Vancomycin HCl (Vanco Iv Per Pharmacy) VANCOMYCIN PER PHARMACY PER PROTOCOL XX ; Start 08/30/18 at 12:00; Status UNV Cefepime HCl 50 ml @ 100 mls/hr ONCE ONCE IVPB ; Start 08/30/18 at 12:00; Stop 08/30/18 at 12:29; Status UNV Assessment/Plan Hospital Course (Demo Recall) 1. Atrial fibrillation with a rapid ventricular response - rate controlled - will monitor to ICU. 2. Congestive heart failure exacerbation, diastolic by most recent echo in July 2018 revealing a preserved EF of 65%, acute on chronic by history. Not in CHF by exam. 3. Hypertension, mildly elevated - well Rx now. 4. Respiratory distress - transfer to ICU - ABG now. 5. Shortness of breath, likely multifactorial secondary to heart failure and chronic obstructive pulmonary disease exacerbation. 6. Probable chronic obstructive pulmonary disease exacerbation. 7. Pneumonia, right lower lobe by chest x-ray, new since discharge, question aspiration. 8. Hyponatremia. 9. Severe leukocytosis of 29.4 - on anti-Bx, ID follows. 10. Anemia, mild. 11. Coagulopathy, likely secondary to baseline Eliquis - will probably hold to ICU, EMILY SANTAMARIA MD Aug 30, 2018 12:07
[2018-08-30] MEDS ORDERED: SOD CHLORIDE 0.9% 2,070 ML IV ONE (13:00)
[2018-08-30] MEDS ORDERED: DIGOXIN 0.125 MG TAB PO SCH (13:00)
[2018-08-30] MEDS ORDERED: VANCOMYCIN 750 MG (PMX) 250 ML IVPB SCH (13:00)
[2018-08-30] MEDS: PROPOFOL 100 ML IV SCH ×2 (13:09→21:25)
[2018-08-30] MEDS ORDERED: DOCUSATE SODIUM 10 MG/ML (10ML CUP) NGT PRN (13:30)
[2018-08-30] MEDS ORDERED: NORepinephrine 8MG/250 ML (PMX 250 ML ONE (13:33)
[2018-08-30] MEDS: NORepinephrine 8MG/250 ML (PMX 250 ML IV SCH (13:48)
--- NOTE | 2018-08-30 15:42 | CONS ---
DATE OF ADMISSION: 08/29/2018 DATE OF CONSULTATION: 08/30/2018 TYPE OF CONSULTATION: Infectious disease. REASON FOR CONSULTATION: Antibiotic management. HISTORY OF PRESENT ILLNESS: Sung Nielsen is an 78-year-old male who was admitted on 08/29/2018 with shortness of breath and is now transferred to the intensive care unit. He is an 78-year-old male wi th numerous problems includin. Hypertension. 2. Hyperlipidemia. 3. Congestive heart failure with an ejection fraction of 35% to 40%. 4. Lung cancer. 5. Atrial fibrillation with rapid ventricular response. 6. Chronic renal failure. 7. Pleural effusions. 8. Anemia. He presents with several day history of worsening shortness of breath. The patient was admitted for congestive failure on 08/13/2018 through 08/21/2018, reports that he has been having wor sening shortness of breath since his discharge. He has some palpitations, but no chest pain, nausea, vomiting or diaphoresis. He has a chronic nonproductive cough, but no hemoptysis. Denies leg pain or swelling. No fever or chills. PAST MEDICAL HISTORY: Positive for carotid endarterectomy, multiple thoracenteses. As noted, he has COPD. He is a current smoker. He has a history of pneumonia and effusions and lung cancer. He als o has peripheral vascular disease. FAMILY HISTORY: Noncontributory. SOCIAL HISTORY: He drinks daily vodka. He smokes 2 cigarettes a day. Does not abuse drugs. ALLERGIES: None to penicillin, sulfa or foods. MEDICATIONS: Per chart. REVIEW OF SYSTEMS: As per HPI. ANCILLARY LABORATORY DATA: White count on admission was 29.4, H and H of 10.1 and 31, platelet count 606,000 with a BUN and creatinine 26/1.22. His white count of 29.4 has 84% neutrophils and 8% bands . IMPRESSION AND PLAN: Patient was started on vancomycin and Zosyn. He had atrial fibrillation with r apid ventricular response at rate of 151. There has been development of right lower lobe infiltrate and slight enlargement of the previously seen right pleural effusions. Findings unable to exclude pn eumonia with parapneumonic effusion. Correlate the fever or leukocytosis clinically. Stable cardiac silhouette enlargement and left pleural effusion with adjacent compressive atelectasis of the left l ower lobe, aortic atherosclerosis is present. HOSPITAL COURSE: The patient was transferred to the intensive care unit. White count of 39.1 on the . ESR is due to right-sided pneumonia, respiratory acidosis and hypoxia. He was seen also by Dr. Rommel Balderrama in cardiology. The patient was decompensated. On physical exam when seen, he is con fused, in moderate distress. SKIN: Without generalized rash. He has chronic changes. HEENT: Normocephalic, atraumatic. He is on BiPAP. NECK: Supple. LYMPH NODES: None palpable. He has JVD elevation. CHEST: Decreased breath sounds at the bases with coarse rhonchi. HEART: Irregularly irregular rhythm, grade II/ systolic ejection murmur at left sternal border. ABDOMEN: Soft, nontender, without organosplenomegaly or masses. EXTREMITIES: Without cyanosis or clubbing. He has trace edema. RECTAL AND GENITAL: Deferred. NEUROLOGIC: No focal neurological abnormalities. IMPRESSION AND PLAN: The patient transferred to the ICU, may require intubation. He is on vancomyci n and Zosyn. White count is up to 39.1. Blood cultures were ordered. MRSA screen ordered, no urina lysis was ordered, and we probably should get a urinalysis and culture. Dictated By: JEFFRY CASTILLO MD, JD/NTS Conf#: [id number] DID#: [id number] CC: KARLEY DEAN MD;*EndCC*
[2018-08-30] MEDS: DIGOXIN 0.125 MG TAB NGT SCH (16:32)
[2018-08-30] MEDS: METHYLPREDNISOLONE 40 MG INJ IV SCH ×2 (16:32→21:25)
--- NOTE | 2018-08-30 17:41 | CONS ---
DATE OF ADMISSION: 08/29/2018 DATE OF CONSULTATION: REASON FOR CONSULTATION: Respiratory distress. Thank you, Dr. Roberson, for this consultation. HISTORY OF PRESENT ILLNESS: This is an 78-year-old gentleman well known to me with advanced COPD, hector ng cancer, stage IV non-small cell, who came in with increasing shortness of breath, orthopnea and PN D. Apparently overnight, he received Ativan as he was not tolerating bilevel ventilation. Subsequen tly, he was obtunded this morning requiring emergent transfer to intensive care unit, intubation and subsequent central line placement. PAST MEDICAL HISTORY: Atrial fibrillation, chronic obstructive pulmonary disease, ongoing tobacco us e, atrial fibrillation, history of dense left pneumonia, and history of lung cancer. MEDICATIONS: Per chart. ALLERGIES: NONE. SOCIAL HISTORY: He has a positive tobacco history. SYSTEMS REVIEW: A 12-point review of systems unable to perform. PHYSICAL EXAMINATION: GENERAL: Elderly-appearing gentleman, now intubated on mechanical ventilation, appears comfortable a t rest, no acute distress. VITAL SIGNS: Currently afebrile, pulse is 72, blood pressure 115/50, O2 saturation 96% on FIO2 of 10 0%. NECK: Supple. No JVD or lymphadenopathy. CARDIAC: Sounds S1, S2, no added sounds or murmurs. CHEST: Diminished air entry bilaterally. ABDOMEN: Soft, nontender. No guarding or rebound. EXTREMITIES: No cyanosis or clubbing. 1+ edema. NEUROLOGIC: Unable to assess. LABORATORY DATA: White count 39.1, hemoglobin 10.1 and platelets 693. BUN 33 and creatinine 1.61. Lactic acid elevated at 2.2. ABG post-intubation, pH of 7.27, pCO2 of 54 and pO2 of 256. DIAGNOSTIC DATA: Chest x-ray shows left-sided infiltrate and effusion with volume loss, right-sided infiltrate also. IMPRESSION AND PLAN: 1. Likely metastatic lung cancer. 2. Probable aspiration pneumonia. 3. Chronic obstructive pulmonary disease exacerbation. 4. Septic shock and metabolic acidosis secondary to above. 5. Renal insufficiency. PLAN: 1. Aggressive volume resuscitation, ____ per sepsis protocol. 2. Blood cultures. 3. Broad-spectrum antibiotics. 4. DVT and GI prophylaxis. 5. Vasopressors. 6. Steroids. Dictated By: AISHWARYA MAURO/JACQUELINE Conf#: [id number] DID#: [id number] CC: KARLEY DEAN MD; FIDEL ROBERSON;*EndCC*
--- NOTE | 2018-08-30 17:44 | SP ---
DATE OF PROCEDURE: 08/30/2018 PROCEDURE: Central line placement. INDICATION: IV access, low blood pressure. DESCRIPTION OF PROCEDURE: Timeout was performed prior to procedure. Right femoral site was cleaned and prepped in usual sterile manner. Using ultrasound guidance, the femoral vein was located. Large bore needle passed into femoral vein following which guidewire was passed without resistance followi ng dilatation using Seldinger technique, triple lumen catheter passed over guidewire. The patient [place] d good flow through all 3 ports without evidence of complication. Dictated By: AISHWARYA MAURO/JACQUELINE Conf#: [id number] DID#: [id number]
--- NOTE | 2018-08-30 17:49 | SP ---
DATE OF PROCEDURE: 08/30/2018 PROCEDURE: Endotracheal intubation. INDICATION: Respiratory failure. A timeout was performed. DESCRIPTION OF PROCEDURE: The patient was placed in supine position and neck extended. His blood pr essure, EKG and pulse oximetry were continuously monitored. A size 7.5 endotracheal tube was passed through the vocal cords, secured at 24 cm to the lip. CO2 capnometer was immediately positive. The patient had equal breath sounds bilaterally. Post-intubation, chest x-ray and ABG were requested. Dictated By: AISHWARYA PICKARD MD SV/NTS Conf#: [id number] DID#: [id number] CC: KARLEY DEAN MD;*EndCC*
[2018-08-30] MEDS: CEFEPIME 1GM/50 ML (PMX) 50 ML IVPB SCH (21:25)
[2018-08-30] MEDS: APIXABAN 5 MG TABLET NGT SCH (23:36)
[2018-08-30] MEDS: ATENOLOL 25 MG TAB NGT SCH (23:37)
[2018-08-31] VITALS (102 sets, daily range): BP systolic 93–142; BP diastolic 36–66; PULSE 60–90; RESP 19–27
[2018-08-31] MEDS: PROPOFOL 100 ML IV SCH ×2 (02:48→16:25)
[2018-08-31] MEDS: DILTIAZEM-D5W 125MG/125ML DRIP 125 ML IV SCH ×2 (03:20→08:00)
[2018-08-31] MEDS: LANSOPRAZOLE 30 MG CAP NGT SCH (05:36)
[2018-08-31] MEDS: FUROSEMIDE 40 MG INJ IV SCH (05:36)
[2018-08-31] MEDS: METHYLPREDNISOLONE 40 MG INJ IV SCH ×3 (05:36→21:47)
[2018-08-31] MEDS: NORepinephrine 8MG/250 ML (PMX 250 ML IV SCH (05:50)
[2018-08-31] MEDS ORDERED: PANTOPRAZOLE 40 MG INJ IV SCH (06:00)
[2018-08-31] MEDS: ATENOLOL 25 MG TAB NGT SCH ×2 (08:47→21:47)
[2018-08-31] MEDS: APIXABAN 5 MG TABLET NGT SCH ×2 (08:49→21:47)
[2018-08-31] MEDS: CEFEPIME 1GM/50 ML (PMX) 50 ML IVPB SCH (08:49)
[2018-08-31] MEDS: FERROUS SULFATE 60 MG/ML 5ML CUP NGT SCH (08:49)
[2018-08-31] MEDS ORDERED: POTASSIUM CHLORIDE 20 MEQ POWDER FOR ORAL SOLN NGT SCH (09:00)
--- NOTE | 2018-08-31 09:12 | PN ---
JASPER SAHU 08/31/18 0912: Date/Time of Note Date/Time of Note DATE: 08/31/18 TIME: 09:05 Assessment/Plan VTE Prophylaxis Risk score (from [facility] [place]0 risk: 13 SCD applied (from [facility] [place]): Yes Pharmacological prophylaxis: apixaban Lines/Catheters IV Catheter Type (from [facility]): Central Line Central line still needed: Yes Urinary Cath still in place: Yes Reason Cath still needed: urinary retention Assessment/Plan Hospital Course 1. Sepsis 2. ALOC, lethargic.Now sedated with Propofol 3. Atrial fibrillation, now flutter , controlled 4. Hypoxic respiratory failure. Respiratory acidosis, resolved. 5. Bilateral pneumonia 6. Congestive heart failure, EF 35 to 40%, 7. Hx of right side lung cancer, in remission 8. JAMES on chronic kidney disease, creatinine baseline 1.6. Increased creatinine 9. Hx of pleural effusions, right and left and numerous thoracentesis 10. Bilateral pleural effusion 11. Hx of hypertension, now on BP support 12. Hyperlipidemia Assessment/Plan -c/w ICU transfer -c/w intubated AC 30 % -ABG reviewed -pulmonary consult dr Guajardo appreciated -Cardiology consult dr Parada -ID consult dr Stauffer -DVT proph. Eliquiz 5 mg GT BID -GI proph. Protonix GT -c/w resp. treatment and IV antibiotics -pt is on cardizem, levophed drip, -c.w propofol for sedation c/w tube feed Result Diagram: 08/31/18 0450 08/31/18 0450 Results 24hrs Laboratory Tests Test 08/30/18 12:21 08/30/18 13:53 08/30/18 15:45 08/30/18 16:13 Blood Gas Blood arterial Specimen Source Arterial Blood 08/30/2018 1:37: Date Drawn 18 PM Arterial Blood 7.271 *L pH (Temp corrected) Arterial Blood 54.5 H pCO2 (Temp correct) Arterial Blood 256.8 H pO2 (Temp corrected) Arterial Blood 24.5 HCO3 Arterial Blood -2.7 Base Excess Arterial Blood 99.8 Oxygen Saturatio n Harshad Test N/A Arterial Blood Right Brachial Gas Puncture Site Arterial 0.4 Blood Carboxyhem oglobin Arterial Blood 0.4 Methemoglobin Blood Gas A-a O2 401.7 H Differential Oxyhemoglobin 99.0 Percent Blood Gas 37.0 Temperature Blood Gas 20.0 Respiration Rate Blood Gas Actual 25 Respiration Rate Blood Gas VENT - AC Modality FiO2 100.0 Blood Gas Tidal 550.0 Volume Blood Gas Low 5.0 PEEP Setting Blood Gas LBRAZZLE RN Critical Value Read Back Blood Gas TM Notified Whom Blood Gas 08/30/2018 1:45: Notified Time 40 PM Lactic Acid 2.2 *H 2.7 *H Level Urine Color YELLOW Urine Clarity CLOUDY A Urine pH 5.0 Urine Specific 1.013 [place] Urine Ketones NEGATIVE Urine Nitrite NEGATIVE Urine Bilirubin NEGATIVE Urine NEGATIVE Urobilinogen Urine Leukocyte NEGATIVE Esterase Urine 1 Microscopic RBC Urine 2 Microscopic WBC Urine Bacteria FEW A Urine Hemoglobin 1+ H Urine Glucose NEGATIVE Urine Total NEGATIVE Protein Test 08/31/18 04:50 08/31/18 05:00 White Blood 24.5 #H Count Red Blood Count 3.06 L Hemoglobin 8.6 L Hematocrit 26.3 L Mean Corpuscular 85.9 Volume Mean Corpuscular 28.1 L Hemoglobin Mean Corpuscular 32.7 Hemoglobin Naz nt Red Cell 14.9 H Distribution Width Platelet Count 536 #H Mean Platelet 9.3 Volume Immature 0.500 H Granulocytes % Neutrophils % Segmented 59 Neutrophils % (Manual) Band Neutrophils 37 H % (Manual) Lymphocytes % Lymphocytes % 4 L (Manual) Monocytes % Eosinophils % Basophils % Nucleated Red 0.0 Blood Cells % Immature 0.120 H Granulocytes # Neutrophils # Neutrophils # 16.7 H (Manual) Band Neutrophils 9.0 H # Lymphocytes 0.9 (Manual) Lymphocytes # Monocytes # Eosinophils # Basophils # Nucleated Red Blood Cells # Platelet INCREASED Estimate Giant Platelets 1 H Poikilocytosis 1+ Anisocytosis 1+ Sodium Level 139 Potassium Level 4.0 Chloride Level 101 Carbon Dioxide 21 Level Anion Gap 17 H Blood Urea 52 H Nitrogen Creatinine 2.40 H Est Glomerular Filtrat Rate mL/min Glucose Level 128 Calcium Level 8.6 Phosphorus Level 4.6 Magnesium Level 2.2 Total Bilirubin 0.3 Direct Bilirubin 0.00 Indirect 0.3 Bilirubin Aspartate Amino 44 Transf (AST/SGOT ) Alanine 19 Aminotransferase (ALT/SGPT) Alkaline 111 Phosphatase Total Protein 5.4 L Albumin 2.7 L Globulin 2.70 Albumin/Globulin 1.00 Ratio Blood Gas Blood arterial Specimen Source Arterial Blood 08/31/2018 5:30: Date Drawn 47 AM Arterial Blood 7.435 pH (Temp corrected) Arterial Blood 30.1 L pCO2 (Temp correct) Arterial Blood 99.7 H pO2 (Temp corrected) Arterial Blood 19.8 L HCO3 Arterial Blood -3.7 L Base Excess Arterial Blood 97.4 Oxygen Saturatio n Harshad Test ACCEPTAB Arterial Blood Right Radial Gas Puncture Site Arterial 0.1 Blood Carboxyhem oglobin Arterial Blood 0.3 Methemoglobin Blood Gas A-a O2 150.9 H Differential Oxyhemoglobin 97.0 Percent Blood Gas 37.0 Temperature Blood Gas 24.0 Respiration Rate Blood Gas Actual 24 Respiration Rate Blood Gas VENT - AC Modality FiO2 40.0 Blood Gas Tidal 550.0 Volume Blood Gas MM Notified Whom Blood Gas 08/31/2018 5:42: Notified Time 54 AM Subjective 24 Hr Interval Summary Free Text/Dictation orally intubated Subjective hx not possible: pt non-verbal, pt critical status Exam/Review of Systems Exam Vitals Vital Signs Date Temp Pulse Resp B/P (MAP) Pulse Ox O2 O2 Flow FiO2 Time Delivery Rate 08/31/18 75 24 104/49 100 06:15 (67) 08/31/18 Mechanical 06:00 Ventilator 08/31/18 40 05:02 08/31/18 99.1 04:00 08/29/18 10.0 23:10 Intake and Output 08/30/18 08/30/18 08/31/18 1515:00 23:00 07:00 IntakeIntake Total 27.8 ml 1822.994 ml 264.80 ml OutputOutput Total 100 ml 795 ml 385 ml BalanceBalance -72.2 ml 1027.994 ml -120.20 ml Exam sedated with Propofol Constitutional: non-verbal, frail ENMT: nl external ears & nose Neck: supple Respiratory: diminished breath sounds Cardiovascular: irregular rhythm (a flutter) Gastrointestinal: soft, other (NG tube with feeding) Genitourinary - Male: other (yañez) Musculoskeletal: muscle weakness Skin: ecchymosis, other (pale) Results Result Diagram: 08/31/18 0450 08/31/18 0450 Results 24hrs Laboratory Tests Test 08/30/18 12:21 08/30/18 13:53 08/30/18 15:45 08/30/18 16:13 Blood Gas Blood arterial Specimen Source Arterial Blood 08/30/2018 1:37: Date Drawn 18 PM Arterial Blood 7.271 *L pH (Temp corrected) Arterial Blood 54.5 H pCO2 (Temp correct) Arterial Blood 256.8 H pO2 (Temp corrected) Arterial Blood 24.5 HCO3 Arterial Blood -2.7 Base Excess Arterial Blood 99.8 Oxygen Saturatio n Harshad Test N/A Arterial Blood Right Brachial Gas Puncture Site Arterial 0.4 Blood Carboxyhem oglobin Arterial Blood 0.4 Methemoglobin Blood Gas A-a O2 401.7 H Differential Oxyhemoglobin 99.0 Percent Blood Gas 37.0 Temperature Blood Gas 20.0 Respiration Rate Blood Gas Actual 25 Respiration Rate Blood Gas VENT - AC Modality FiO2 100.0 Blood Gas Tidal 550.0 Volume Blood Gas Low 5.0 PEEP Setting Blood Gas LBRAZZLE RN Critical Value Read Back Blood Gas TM Notified Whom Blood Gas 08/30/2018 1:45: Notified Time 40 PM Lactic Acid 2.2 *H 2.7 *H Level Urine Color YELLOW Urine Clarity CLOUDY A Urine pH 5.0 Urine Specific 1.013 [place] Urine Ketones NEGATIVE Urine Nitrite NEGATIVE Urine Bilirubin NEGATIVE Urine NEGATIVE Urobilinogen Urine Leukocyte NEGATIVE Esterase Urine 1 Microscopic RBC Urine 2 Microscopic WBC Urine Bacteria FEW A Urine Hemoglobin 1+ H Urine Glucose NEGATIVE Urine Total NEGATIVE Protein Test 08/31/18 04:50 08/31/18 05:00 White Blood 24.5 #H Count Red Blood Count 3.06 L Hemoglobin 8.6 L Hematocrit 26.3 L Mean Corpuscular 85.9 Volume Mean Corpuscular 28.1 L Hemoglobin Mean Corpuscular 32.7 Hemoglobin Naz nt Red Cell 14.9 H Distribution Width Platelet Count 536 #H Mean Platelet 9.3 Volume Immature 0.500 H Granulocytes % Neutrophils % Segmented 59 Neutrophils % (Manual) Band Neutrophils 37 H % (Manual) Lymphocytes % Lymphocytes % 4 L (Manual) Monocytes % Eosinophils % Basophils % Nucleated Red 0.0 Blood Cells % Immature 0.120 H Granulocytes # Neutrophils # Neutrophils # 16.7 H (Manual) Band Neutrophils 9.0 H # Lymphocytes 0.9 (Manual) Lymphocytes # Monocytes # Eosinophils # Basophils # Nucleated Red Blood Cells # Platelet INCREASED Estimate Giant Platelets 1 H Poikilocytosis 1+ Anisocytosis 1+ Sodium Level 139 Potassium Level 4.0 Chloride Level 101 Carbon Dioxide 21 Level Anion Gap 17 H Blood Urea 52 H Nitrogen Creatinine 2.40 H Est Glomerular Filtrat Rate mL/min Glucose Level 128 Calcium Level 8.6 Phosphorus Level 4.6 Magnesium Level 2.2 Total Bilirubin 0.3 Direct Bilirubin 0.00 Indirect 0.3 Bilirubin Aspartate Amino 44 Transf (AST/SGOT ) Alanine 19 Aminotransferase (ALT/SGPT) Alkaline 111 Phosphatase Total Protein 5.4 L Albumin 2.7 L Globulin 2.70 Albumin/Globulin 1.00 Ratio Blood Gas Blood arterial Specimen Source Arterial Blood 08/31/2018 5:30: Date Drawn 47 AM Arterial Blood 7.435 pH (Temp corrected) Arterial Blood 30.1 L pCO2 (Temp correct) Arterial Blood 99.7 H pO2 (Temp corrected) Arterial Blood 19.8 L HCO3 Arterial Blood -3.7 L Base Excess Arterial Blood 97.4 Oxygen Saturatio n Harsahd Test ACCEPTAB Arterial Blood Right Radial Gas Puncture Site Arterial 0.1 Blood Carboxyhem oglobin Arterial Blood 0.3 Methemoglobin Blood Gas A-a O2 150.9 H Differential Oxyhemoglobin 97.0 Percent Blood Gas 37.0 Temperature Blood Gas 24.0 Respiration Rate Blood Gas Actual 24 Respiration Rate Blood Gas VENT - AC Modality FiO2 40.0 Blood Gas Tidal 550.0 Volume Blood Gas MM Notified Whom Blood Gas 08/31/2018 5:42: Notified Time 54 AM Medications Medication Current Medications Diltiazem HCl 125 ml @ 10 mls/hr [id number] IV Last administered on 08/31/18at 03:20; Admin Dose 10 MLS/HR; Start 08/29/18 at 18:30 Diltiazem HCl (Cardizem) 30 mg Q8 PO Last administered on 08/29/18at 21:47; Admin Dose 30 MG; Start 08/29/18 at 22:00; Status Hold Furosemide (Lasix) 40 mg BID DIURETICS IV Last administered on 08/31/18at 05:36; Admin Dose 40 MG; Start 08/30/18 at 06:00 Vancomycin HCl (Vanco Iv Per Pharmacy) VANCOMYCIN PER PHARMACY PER PROTOCOL XX ; Start 08/30/18 at 12:00 Vancomycin/Sodium Chloride 250 ml @ 125 mls/hr Q24H IVPB Last administered on 08/30/18at 18:24; Admin Dose 125 MLS/HR; Start 08/30/18 at 13:00 Propofol 100 ml @ 2.073 mls/ hr Q12H IV Last administered on 08/31/18 02:48; Admin Dose 8.292 MLS/HR; Start 08/30/18 at 13:00 Fentanyl 100 ml @ 2.5 mls/hr TITRATE IV ; Start 08/30/18 at 13:30 Apixaban (Eliquis) 5 mg BID NGT Last administered on 08/31/18 08:49; Admin Dose 5 MG; Start 08/30/18 at 21:00 Atenolol (Tenormin) 12.5 mg BID NGT Last administered on 08/30/18 23:37; Admin Dose 12.5 MG; Start 08/30/18 at 21:00 Digoxin (Digoxin) 0.125 mg DAILY@13 NGT Last administered on 08/30/18 16:32; Admin Dose 0.125 MG; Start 08/30/18 at 13:00 Ferrous Sulfate (Feosol Liquid Cup) 300 mg DAILY NGT Last administered on 08/31/18 08:49; Admin Dose 300 MG; Start 08/31/18 at 09:00 Lansoprazole (Prevacid) 30 mg DAILY@06 NGT Last administered on 08/31/18 05:36; Admin Dose 30 MG; Start 08/31/18 at 06:00 Docusate Sodium (Colace Liquid Cup) 100 mg BID PRN NGT CONSTIPATION Last administered on 08/30/18 23:46; Admin Dose 100 MG; Start 08/30/18 at 13:30 Norepinephrine 250 ml @ 1.875 mls/ hr TITRATE IV Last administered on 08/31/18 05:50; Admin Dose 11.25 MLS/HR; Start 08/30/18 at 13:30 Cefepime HCl 50 ml @ 100 mls/hr Q12 IVPB Last administered on 08/31/18 08:49; Admin Dose 100 MLS/HR; Start 08/30/18 at 21:00 Methylprednisolone Sodium Succinate (Solu-Medrol) 40 mg Q8 IV Last administered on 08/31/18 05:36; Admin Dose 40 MG; Start 08/30/18 at 15:30 FIDEL GAVIN MD 08/31/18 1424: Assessment/Plan Assessment/Plan Assessment/Plan pt seen and examined with AIR BAG CURER SEPTIC shock duE TO pneumonai iv fluids iv abx acute on chronci renal failure likley due to sepsis monitor for UOP Currently 50 cc/hr avoid nephroixins Result Diagram: 08/31/18 0450 08/31/18 0450 JASPER SAHU Aug 31, 2018 09:12 FIDEL GAVIN MD Aug 31, 2018 14:24
--- NOTE | 2018-08-31 09:41 | CONS ---
Consult Date/Type/Reason Admit Date/Time Aug 29, 2018 at 18:56 Initial Consult Date Type of Consult Pulmonary Date/Time of Note DATE: 08/31/18 TIME: 09:40 Subjective Patient continues mechanical ventilation and vasopressor support. Currently requiring FiO2 of 30% with sats of 99%. Objective Vital Signs Date Temp Pulse Resp B/P (MAP) Pulse Ox O2 O2 Flow FiO2 Time Delivery Rate 08/31/18 73 08:00 08/31/18 24 104/49 100 06:15 (67) 08/31/18 Mechanical 06:00 Ventilator 08/31/18 40 05:02 08/31/18 99.1 04:00 08/29/18 10.0 23:10 Intake and Output 08/30/18 08/30/18 08/31/18 1515:00 23:00 07:00 IntakeIntake Total 27.8 ml 1822.994 ml 264.80 ml OutputOutput Total 100 ml 795 ml 385 ml BalanceBalance -72.2 ml 1027.994 ml -120.20 ml Exam PHYSICAL EXAMINATION: GENERAL: Elderly-appearing gentleman, now intubated on mechanical ventilation, appears comfortable at rest, no acute distress. VITAL SIGNS: NECK: Supple. No JVD or lymphadenopathy. CARDIAC: Sounds S1, S2, no added sounds or murmurs. CHEST: Diminished air entry bilaterally. ABDOMEN: Soft, nontender. No guarding or rebound. EXTREMITIES: No cyanosis or clubbing. 1+ edema. NEUROLOGIC: Unable to assess. Vent Setting Ventilator Support Mode: AC Fraction of Inspired Oxygen pe: 40 Positive End Expiratory Pressu: 0.0 Results/Medications Result Diagram: 08/31/18 0450 08/31/18 0450 Results 24 hrs Laboratory Tests Test 08/30/18 12:21 08/30/18 13:53 08/30/18 15:45 08/30/18 16:13 Blood Gas Blood arterial Specimen Source Arterial Blood 08/30/2018 1:37: Date Drawn 18 PM Arterial Blood 7.271 *L pH (Temp corrected) Arterial Blood 54.5 H pCO2 (Temp correct) Arterial Blood 256.8 H pO2 (Temp corrected) Arterial Blood 24.5 HCO3 Arterial Blood -2.7 Base Excess Arterial Blood 99.8 Oxygen Saturatio n Harshad Test N/A Arterial Blood Right Brachial Gas Puncture Site Arterial 0.4 Blood Carboxyhem oglobin Arterial Blood 0.4 Methemoglobin Blood Gas A-a O2 401.7 H Differential Oxyhemoglobin 99.0 Percent Blood Gas 37.0 Temperature Blood Gas 20.0 Respiration Rate Blood Gas Actual 25 Respiration Rate Blood Gas VENT - AC Modality FiO2 100.0 Blood Gas Tidal 550.0 Volume Blood Gas Low 5.0 PEEP Setting Blood Gas LBRAZZLE RN Critical Value Read Back Blood Gas TM Notified Whom Blood Gas 08/30/2018 1:45: Notified Time 40 PM Lactic Acid 2.2 *H 2.7 *H Level Urine Color YELLOW Urine Clarity CLOUDY A Urine pH 5.0 Urine Specific 1.013 [place] Urine Ketones NEGATIVE Urine Nitrite NEGATIVE Urine Bilirubin NEGATIVE Urine NEGATIVE Urobilinogen Urine Leukocyte NEGATIVE Esterase Urine 1 Microscopic RBC Urine 2 Microscopic WBC Urine Bacteria FEW A Urine Hemoglobin 1+ H Urine Glucose NEGATIVE Urine Total NEGATIVE Protein Test 08/31/18 04:50 08/31/18 05:00 White Blood 24.5 #H Count Red Blood Count 3.06 L Hemoglobin 8.6 L Hematocrit 26.3 L Mean Corpuscular 85.9 Volume Mean Corpuscular 28.1 L Hemoglobin Mean Corpuscular 32.7 Hemoglobin Naz nt Red Cell 14.9 H Distribution Width Platelet Count 536 #H Mean Platelet 9.3 Volume Immature 0.500 H Granulocytes % Neutrophils % Segmented 59 Neutrophils % (Manual) Band Neutrophils 37 H % (Manual) Lymphocytes % Lymphocytes % 4 L (Manual) Monocytes % Eosinophils % Basophils % Nucleated Red 0.0 Blood Cells % Immature 0.120 H Granulocytes # Neutrophils # Neutrophils # 16.7 H (Manual) Band Neutrophils 9.0 H # Lymphocytes 0.9 (Manual) Lymphocytes # Monocytes # Eosinophils # Basophils # Nucleated Red Blood Cells # Platelet INCREASED Estimate Giant Platelets 1 H Poikilocytosis 1+ Anisocytosis 1+ Sodium Level 139 Potassium Level 4.0 Chloride Level 101 Carbon Dioxide 21 Level Anion Gap 17 H Blood Urea 52 H Nitrogen Creatinine 2.40 H Est Glomerular Filtrat Rate mL/min Glucose Level 128 Calcium Level 8.6 Phosphorus Level 4.6 Magnesium Level 2.2 Total Bilirubin 0.3 Direct Bilirubin 0.00 Indirect 0.3 Bilirubin Aspartate Amino 44 Transf (AST/SGOT ) Alanine 19 Aminotransferase (ALT/SGPT) Alkaline 111 Phosphatase Total Protein 5.4 L Albumin 2.7 L Globulin 2.70 Albumin/Globulin 1.00 Ratio Blood Gas Blood arterial Specimen Source Arterial Blood 08/31/2018 5:30: Date Drawn 47 AM Arterial Blood 7.435 pH (Temp corrected) Arterial Blood 30.1 L pCO2 (Temp correct) Arterial Blood 99.7 H pO2 (Temp corrected) Arterial Blood 19.8 L HCO3 Arterial Blood -3.7 L Base Excess Arterial Blood 97.4 Oxygen Saturatio n Harshad Test ACCEPTAB Arterial Blood Right Radial Gas Puncture Site Arterial 0.1 Blood Carboxyhem oglobin Arterial Blood 0.3 Methemoglobin Blood Gas A-a O2 150.9 H Differential Oxyhemoglobin 97.0 Percent Blood Gas 37.0 Temperature Blood Gas 24.0 Respiration Rate Blood Gas Actual 24 Respiration Rate Blood Gas VENT - AC Modality FiO2 40.0 Blood Gas Tidal 550.0 Volume Blood Gas MM Notified Whom Blood Gas 08/31/2018 5:42: Notified Time 54 AM Medications Current Medications Diltiazem HCl 125 ml @ 10 mls/hr [id number] IV Last administered on 08/31/18 03:20; Admin Dose 10 MLS/HR; Start 08/29/18 at 18:30 Diltiazem HCl (Cardizem) 30 mg Q8 PO Last administered on 08/29/18 21:47; Admin Dose 30 MG; Start 08/29/18 at 22:00; Status Hold Furosemide (Lasix) 40 mg BID DIURETICS IV Last administered on 08/31/18 05:36; Admin Dose 40 MG; Start 08/30/18 at 06:00 Vancomycin HCl (Vanco Iv Per Pharmacy) VANCOMYCIN PER PHARMACY PER PROTOCOL XX ; Start 08/30/18 at 12:00 Vancomycin/Sodium Chloride 250 ml @ 125 mls/hr Q24H IVPB Last administered on 08/30/18 18:24; Admin Dose 125 MLS/HR; Start 08/30/18 at 13:00 Propofol 100 ml @ 2.073 mls/ hr Q12H IV Last administered on 08/31/18 02:48; Admin Dose 8.292 MLS/HR; Start 08/30/18 at 13:00 Fentanyl 100 ml @ 2.5 mls/hr TITRATE IV ; Start 08/30/18 at 13:30 Apixaban (Eliquis) 5 mg BID NGT Last administered on 08/31/18 08:49; Admin Dose 5 MG; Start 08/30/18 at 21:00 Atenolol (Tenormin) 12.5 mg BID NGT Last administered on 08/30/18 23:37; Admin Dose 12.5 MG; Start 08/30/18 at 21:00 Digoxin (Digoxin) 0.125 mg DAILY@13 NGT Last administered on 08/30/18 16:32; Admin Dose 0.125 MG; Start 08/30/18 at 13:00 Ferrous Sulfate (Feosol Liquid Cup) 300 mg DAILY NGT Last administered on 08/31/18 08:49; Admin Dose 300 MG; Start 08/31/18 at 09:00 Lansoprazole (Prevacid) 30 mg DAILY@06 NGT Last administered on 08/31/18 05:36; Admin Dose 30 MG; Start 08/31/18 at 06:00 Docusate Sodium (Colace Liquid Cup) 100 mg BID PRN NGT CONSTIPATION Last administered on 08/30/18 23:46; Admin Dose 100 MG; Start 08/30/18 at 13:30 Norepinephrine 250 ml @ 1.875 mls/ hr TITRATE IV Last administered on 08/31/18 05:50; Admin Dose 11.25 MLS/HR; Start 08/30/18 at 13:30 Cefepime HCl 50 ml @ 100 mls/hr Q12 IVPB Last administered on 08/31/18 08:49; Admin Dose 100 MLS/HR; Start 08/30/18 at 21:00 Methylprednisolone Sodium Succinate (Solu-Medrol) 40 mg Q8 IV Last administered on 08/31/18 05:36; Admin Dose 40 MG; Start 08/30/18 at 15:30 Assessment/Plan Hospital Course (Demo Recall) IMPRESSION AND PLAN: 1. Likely metastatic lung cancer. 2. Probable aspiration pneumonia. 3. Chronic obstructive pulmonary disease exacerbation. 4. Septic shock and metabolic acidosis secondary to above. 5. Renal insufficiency. PLAN: 1. Aggressive volume resuscitation trend lactic acid status post volume resusc itation. , 2. Blood cultures. 3. Broad-spectrum antibiotics. 4. DVT and GI prophylaxis. 5. Vasopressors. 6. Steroids. 7. Continue mechanical ventilation adjust for hypercapnia. CT chest nonco ntrast to evaluate for left effusion which may require thoracentesis. Critical care time 40 minutes. VADGAMA,AISHWARYA V. MD, [facility] Aug 31, 2018 09:41
[2018-08-31] MEDS: DIGOXIN 0.125 MG TAB NGT SCH (13:33)
[2018-08-31] MEDS: SOD CHLORIDE 0.9% 1,000 ML IV SCH ×2 (13:34→22:13)
--- NOTE | 2018-08-31 13:43 | CONS ---
Assessment/Plan Assessment/Plan Hospital Course (Demo Recall) Patient is intubated sedated on Levophed drip in no distress, no fevers overnight WBC 24.5 H&H 8.6 and 26.3 platelets 536 bands 37 BUN 52 creatinine 2.4 Microbiology: Blood culture negative sputum culture and urine culture pending CT of the chest this morning revealed patchy bilateral pulmonary consolidation greater on the left concerning for multilobar pneumonia. Please see full report in the chart Indwelling: Endotracheal tube NG tube Bar catheter right femoral triple-lumen catheter Antimicrobials: Vancomycin and cefepime Physical examination: Chronically ill appearing wasted elderly man who is intubated sedated in no distress. Head atraumatic normocephalic neck is supple chest rise symmetrical breath sounds diminished bases heart S1-S2 abdomen soft bowel sounds hypoactive extremities without cyanosis Assessment: 1. Severe sepsis with shock 2. Acute hypoxemic respiratory failure possibly aspiration 3. Multilobar pneumonia 4. COPD 5. History of lung cancer status post radiation, details unknown 6. Atrial fibrillation status post RVR Plan: Continue present care and broad-spectrum antibiotics, await for sputum cultures, follow pulmonary cardiology recommendations Consultation Date/Type/Reason Admit Date/Time Aug 29, 2018 at 18:56 Initial Consult Date Type of Consult id Date/Time of Note DATE: 08/31/18 TIME: 13:43 Exam/Review of Systems Exam Vitals Vital Signs Date Temp Pulse Resp B/P (MAP) Pulse Ox O2 O2 Flow FiO2 Time Delivery Rate 08/31/18 74 12:00 08/31/18 26 98 40 11:00 08/31/18 96/45 (62) Mechanical 10:30 Ventilator 08/31/18 98.9 08:00 08/29/18 10.0 23:10 Intake and Output 08/30/18 08/30/18 08/31/18 1515:00 23:00 07:00 IntakeIntake Total 27.8 ml 1822.994 ml 292.80 ml OutputOutput Total 100 ml 795 ml 435 ml BalanceBalance -72.2 ml 1027.994 ml -142.20 ml Results Result Diagram: 08/31/18 0450 08/31/18 0450 Results 24hrs Laboratory Tests Test 08/30/18 13:53 08/30/18 15:45 08/30/18 16:13 08/31/18 04:50 Lactic Acid Level 2.2 *H 2.7 *H Urine Color YELLOW Urine Clarity CLOUDY A Urine pH 5.0 Urine Specific 1.013 [place] Urine Ketones NEGATIVE Urine Nitrite NEGATIVE Urine Bilirubin NEGATIVE Urine NEGATIVE Urobilinogen Urine Leukocyte NEGATIVE Esterase Urine Microscopic 1 RBC Urine Microscopic 2 WBC Urine Bacteria FEW A Urine Hemoglobin 1+ H Urine Glucose NEGATIVE Urine Total NEGATIVE Protein White Blood Count 24.5 #H Red Blood Count 3.06 L Hemoglobin 8.6 L Hematocrit 26.3 L Mean Corpuscular 85.9 Volume Mean Corpuscular 28.1 L Hemoglobin Mean Corpuscular 32.7 Hemoglobin Concen t Red Cell 14.9 H Distribution Width Platelet Count 536 #H Mean Platelet 9.3 Volume Immature 0.500 H Granulocytes % Neutrophils % Segmented 59 Neutrophils % (Manual) Band Neutrophils 37 H % (Manual) Lymphocytes % Lymphocytes % 4 L (Manual) Monocytes % Eosinophils % Basophils % Nucleated Red 0.0 Blood Cells % Immature 0.120 H Granulocytes # Neutrophils # Neutrophils # 16.7 H (Manual) Band Neutrophils 9.0 H # Lymphocytes 0.9 (Manual) Lymphocytes # Monocytes # Eosinophils # Basophils # Nucleated Red Blood Cells # Platelet Estimate INCREASED Giant Platelets 1 H Poikilocytosis 1+ Anisocytosis 1+ Sodium Level 139 Potassium Level 4.0 Chloride Level 101 Carbon Dioxide 21 Level Anion Gap 17 H Blood Urea 52 H Nitrogen Creatinine 2.40 H Est Glomerular Filtrat Rate mL/min Glucose Level 128 Calcium Level 8.6 Phosphorus Level 4.6 Magnesium Level 2.2 Total Bilirubin 0.3 Direct Bilirubin 0.00 Indirect 0.3 Bilirubin Aspartate Amino 44 Transf (AST/SGOT) Alanine 19 Aminotransferase (ALT/SGPT) Alkaline 111 Phosphatase Total Protein 5.4 L Albumin 2.7 L Globulin 2.70 Albumin/Globulin 1.00 Ratio Test 08/31/18 05:00 Blood Gas Blood arterial Specimen Source Arterial Blood 08/31/2018 5:30:4 Date Drawn 7 AM Arterial Blood pH 7.435 (Temp corrected) Arterial Blood 30.1 L pCO2 (Temp correct) Arterial Blood 99.7 H pO2 (Temp corrected) Arterial Blood 19.8 L HCO3 Arterial Blood -3.7 L Base Excess Arterial Blood 97.4 Oxygen Saturation Harshad Test ACCEPTAB Arterial Blood Right Radial Gas Puncture Site Arterial 0.1 Blood Carboxyhemo globin Arterial Blood 0.3 Methemoglobin Blood Gas A-a O2 150.9 H Differential Oxyhemoglobin 97.0 Percent Blood Gas 37.0 Temperature Blood Gas 24.0 Respiration Rate Blood Gas Actual 24 Respiration Rate Blood Gas VENT - AC Modality FiO2 40.0 Blood Gas Tidal 550.0 Volume Blood Gas MM Notified Whom Blood Gas 08/31/2018 5:42:5 Notified Time 4 AM Medications Medication Current Medications Diltiazem HCl 125 ml @ 10 mls/hr [id number] IV Last administered on 08/31/18 03:20; Admin Dose 10 MLS/HR; Start 08/29/18 at 18:30 Diltiazem HCl (Cardizem) 30 mg Q8 PO Last administered on 08/29/18 21:47; Ad min Dose 30 MG; Start 08/29/18 at 22:00; Status Hold Vancomycin HCl (Vanco Iv Per Pharmacy) VANCOMYCIN PER PHARMACY PER PROTOCOL XX ; Start 08/30/18 at 12:00 Propofol 100 ml @ 2.073 mls/ hr Q12H IV Last administered on 08/31/18 02:48; Admin Dose 8.292 MLS/HR; Start 08/30/18 at 13:00 Fentanyl 100 ml @ 2.5 mls/hr TITRATE IV ; Start 08/30/18 at 13:30 Atenolol (Tenormin) 12.5 mg BID NGT Last administered on 08/30/18 23:37; Admin Dose 12.5 MG; Start 08/30/18 at 21:00 Digoxin (Digoxin) 0.125 mg DAILY@13 NGT Last administered on 08/31/18 13:33; Admin Dose 0.125 MG; Start 08/30/18 at 13:00 Ferrous Sulfate (Feosol Liquid Cup) 300 mg DAILY NGT Last administered on 08/31/18 08:49; Admin Dose 300 MG; Start 08/31/18 at 09:00 Lansoprazole (Prevacid) 30 mg DAILY@06 NGT Last administered on 08/31/18 05:36; Admin Dose 30 MG; Start 08/31/18 at 06:00 Docusate Sodium (Colace Liquid Cup) 100 mg BID PRN NGT CONSTIPATION Last administered on 08/30/18 23:46; Admin Dose 100 MG; Start 08/30/18 at 13:30 Norepinephrine 250 ml @ 1.875 mls/ hr TITRATE IV Last administered on 08/31/18at 05:50; Admin Dose 11.25 MLS/HR; Start 08/30/18 at 13:30 Methylprednisolone Sodium Succinate (Solu-Medrol) 40 mg Q8 IV Last administered on 08/31/18at 13:32; Admin Dose 40 MG; Start 08/30/18 at 15:30 Vancomycin/Sodium Chloride 250 ml @ 125 mls/hr Q36H IVPB ; Start 09/01/18 at 06:00 Cefepime HCl 50 ml @ 100 mls/hr Q24H IVPB ; Start 09/01/18 at 09:00 Sodium Chloride 1,000 ml @ 70 mls/hr [id number] IV Last administered on 08/31/18at 13:34; Admin Dose 70 MLS/HR; Start 08/31/18 at 13:00 Furosemide (Lasix) 40 mg DAILY IV ; Start 09/01/18 at 09:00 Apixaban (Eliquis) 2.5 mg BID NGT ; Start 08/31/18 at 21:00 SUZANNE DANIELS NP Aug 31, 2018 13:43
--- NOTE | 2018-08-31 13:53 | CONS ---
Consult Date/Type/Reason Admit Date/Time Aug 29, 2018 at 18:56 Initial Consult Date Date/Time of Note DATE: 08/31/18 TIME: 13:51 Subjective Now intubated - will d/c dilt gtt given low BP and reasonable rate - CR going up - change Eliquis to 2.5 mg po bid now - con;t supportive Rx.'' ROS: No fever, no chills, no nausea, no vomiting, no diarrhea/constipation - per nurse + SOB, confused Objective Vitals Vital Signs Date Temp Pulse Resp B/P (MAP) Pulse Ox O2 O2 Flow FiO2 Time Delivery Rate 08/31/18 74 12:00 08/31/18 26 98 40 11:00 08/31/18 96/45 (62) Mechanical 10:30 Ventilator 08/31/18 98.9 08:00 08/29/18 10.0 23:10 Intake and Output 08/30/18 08/30/18 08/31/18 1414:59 22:59 06:59 IntakeIntake Total 7.8 ml 1812.344 ml 295.45 ml OutputOutput Total 100 ml 720 ml 460 ml BalanceBalance -92.2 ml 1092.344 ml -164.55 ml Exam General: WN/WD/NAD, AOx 0 HEENT: Unicetric/atraumatic/EOMI (does not follow commands) NECK: JVD elevated, no thyromegaly - intubated Lymph: no lymphadenopathy HEART: ir irregular with no S3, II/ systolic murmur at apex LUNGS: Coarse sounds ABD: soft, NT, ND, +BS : Intact Neuro: non focal SKIN: chronic changes EXT: trace edema Results/Medications Result Diagram: 08/31/18 0450 08/31/18 0450 Results 24 hrs Laboratory Tests Test 08/30/18 13:53 08/30/18 15:45 08/30/18 16:13 08/31/18 04:50 Lactic Acid Level 2.2 *H 2.7 *H Urine Color YELLOW Urine Clarity CLOUDY A Urine pH 5.0 Urine Specific 1.013 [place] Urine Ketones NEGATIVE Urine Nitrite NEGATIVE Urine Bilirubin NEGATIVE Urine NEGATIVE Urobilinogen Urine Leukocyte NEGATIVE Esterase Urine Microscopic 1 RBC Urine Microscopic 2 WBC Urine Bacteria FEW A Urine Hemoglobin 1+ H Urine Glucose NEGATIVE Urine Total NEGATIVE Protein White Blood Count 24.5 #H Red Blood Count 3.06 L Hemoglobin 8.6 L Hematocrit 26.3 L Mean Corpuscular 85.9 Volume Mean Corpuscular 28.1 L Hemoglobin Mean Corpuscular 32.7 Hemoglobin Concen t Red Cell 14.9 H Distribution Width Platelet Count 536 #H Mean Platelet 9.3 Volume Immature 0.500 H Granulocytes % Neutrophils % Segmented 59 Neutrophils % (Manual) Band Neutrophils 37 H % (Manual) Lymphocytes % Lymphocytes % 4 L (Manual) Monocytes % Eosinophils % Basophils % Nucleated Red 0.0 Blood Cells % Immature 0.120 H Granulocytes # Neutrophils # Neutrophils # 16.7 H (Manual) Band Neutrophils 9.0 H # Lymphocytes 0.9 (Manual) Lymphocytes # Monocytes # Eosinophils # Basophils # Nucleated Red Blood Cells # Platelet Estimate INCREASED Giant Platelets 1 H Poikilocytosis 1+ Anisocytosis 1+ Sodium Level 139 Potassium Level 4.0 Chloride Level 101 Carbon Dioxide 21 Level Anion Gap 17 H Blood Urea 52 H Nitrogen Creatinine 2.40 H Est Glomerular Filtrat Rate mL/min Glucose Level 128 Calcium Level 8.6 Phosphorus Level 4.6 Magnesium Level 2.2 Total Bilirubin 0.3 Direct Bilirubin 0.00 Indirect 0.3 Bilirubin Aspartate Amino 44 Transf (AST/SGOT) Alanine 19 Aminotransferase (ALT/SGPT) Alkaline 111 Phosphatase Total Protein 5.4 L Albumin 2.7 L Globulin 2.70 Albumin/Globulin 1.00 Ratio Test 08/31/18 05:00 Blood Gas Blood arterial Specimen Source Arterial Blood 08/31/2018 5:30:4 Date Drawn 7 AM Arterial Blood pH 7.435 (Temp corrected) Arterial Blood 30.1 L pCO2 (Temp correct) Arterial Blood 99.7 H pO2 (Temp corrected) Arterial Blood 19.8 L HCO3 Arterial Blood -3.7 L Base Excess Arterial Blood 97.4 Oxygen Saturation Harshad Test ACCEPTAB Arterial Blood Right Radial Gas Puncture Site Arterial 0.1 Blood Carboxyhemo globin Arterial Blood 0.3 Methemoglobin Blood Gas A-a O2 150.9 H Differential Oxyhemoglobin 97.0 Percent Blood Gas 37.0 Temperature Blood Gas 24.0 Respiration Rate Blood Gas Actual 24 Respiration Rate Blood Gas VENT - AC Modality FiO2 40.0 Blood Gas Tidal 550.0 Volume Blood Gas MM Notified Whom Blood Gas 08/31/2018 5:42:5 Notified Time 4 AM Home Meds Reported Medications Mupirocin Calcium* (Mupirocin*) 2% - 15 Gram Cream..g., 1 APPLIC TOP BID, #1 TUB 08/29/18 Ondansetron Hcl* (Zofran*) 4 Mg Tab, 4 MG PO Q6H PRN for NAUSEA AND OR VOMITING, TAB 08/29/18 Ipratropium-Albuterol (Ipratropium-Albuterol) 0.5-3 Mg/3 Ml Ampul.neb, 3 ML INHALATION Q6 PRN for WHEEZING AND SOB, #30 VIAL 08/29/18 Ferrous Sulfate* (Ferrous Sulfate*) 325 Mg Tabec, 325 MG PO DAILY, TAB 08/29/18 Apixaban* (Eliquis*) 5 Mg Tablet, 5 MG PO BID, TAB 08/29/18 Docusate Sodium* (Colace*) 100 Mg Capsule, 100 MG PO BID, #60 CAP 08/29/18 Bisacodyl* (Bisacodyl*) 5 Mg Tablet.dr, 10 MG PO BID PRN for CONSTIPATION, TAB 08/29/18 Tuberculin,Purif.prot.deriv. (Aplisol) 5 Tub Unit/0.1 Ml Vial, 5 TUB ID ONCE, VIAL START DATE 08/31/18 -- END DATE 09/01/18 08/29/18 Acetaminophen* (Acetaminophen*) 650 Mg Tablet, 650 MG PO Q6H PRN for PAIN LEVEL 1-10/10, #30 TAB AND FEVER>101F 08/29/18 Guaifenesin (Guaifenesin) 100 Mg/5 Ml Liquid, 10 ML PO NEEDED PRN for COUGH, ML 08/13/18 Diltiazem Hcl* (Cardizem*) 30 Mg Tablet, 30 MG PO Q8 for CHF, #90 TAB HOLD IF SBP<110 OR HR<60 08/13/18 Aspirin* (Aspirin* EC) 81 Mg Tablet.dr, 81 MG PO DAILY, TAB 08/13/18 Digoxin* (Digitek*) 125 Mcg Tablet, 0.125 MG PO DAILY, TAB HOLD IF SBP<110 OR HR<60 08/13/18 Atenolol* (Atenolol*) 25 Mg Tablet, 12.5 MG PO BID, #60 TAB HOLD IF SBP<110 OR HR<60 08/13/18 Furosemide* (Furosemide*) 40 Mg Tablet, 40 MG PO DAILY, TAB HOLD IF SBP<110 OR HR<60 08/13/18 Magnesium Hydroxide* (Milk Of Magnesia*) 400 Mg/5 Ml Oral.susp, 30 ML PO DAILY, ML 08/13/18 Potassium Chloride* (Klor-Con*) 20 Meq Tabsr, 20 MEQ PO DAILY, TAB.SA 07/11/18 Pantoprazole* (Pantoprazole*) 40 Mg Tablet.dr, 40 MG PO DAILY, TAB 07/11/18 Discontinued Reported Medications Albuterol Sulfate* (Proair HFA*) 8.5 Gm Hfa.aer.ad, 2 PUFF INH Q6H PRN for WHEEZING AND SOB, #1 INHALER 08/13/18 Hydrocortisone* Topical (Hydrocortisone* Topical) 2.5%-28.3 Gm Cream..g., 1 APPLIC TOP BID PRN for ITCHING, TUB 08/13/18 Acetaminophen* (Acetaminophen*) 500 MG Extra Strength Tablet, 500 MG PO Q6H PRN for PAIN AND OR ELEVATED TEMP, TAB 08/13/18 Dabigatran Etexilate Mesylate* (Pradaxa*) 75 Mg Cap, 75 MG PO BID, CAP 07/11/18 Discontinued Scripts Ipratropium-Albuterol (Ipratropium-Albuterol) 0.5-3 Mg/3 Ml Ampul.neb, 3 ML HHN Q4H RESP THERAPY for 30 Days Prov:JASPER SAHU 07/19/18 Medications Current Medications Diltiazem HCl 125 ml @ 10 mls/hr [id number] IV Last administered on 08/31/18at 03:20; Admin Dose 10 MLS/HR; Start 08/29/18 at 18:30 Diltiazem HCl (Cardizem) 30 mg Q8 PO Last administered on 08/29/18at 21:47; Admin Dose 30 MG; Start 08/29/18 at 22:00; Status Hold Vancomycin HCl (Vanco Iv Per Pharmacy) VANCOMYCIN PER PHARMACY PER PROTOCOL XX ; Start 08/30/18 at 12:00 Propofol 100 ml @ 2.073 mls/ hr Q12H IV Last administered on 08/31/18at 02:48; Admin Dose 8.292 MLS/HR; Start 08/30/18 at 13:00 Fentanyl 100 ml @ 2.5 mls/hr TITRATE IV ; Start 08/30/18 at 13:30 Atenolol (Tenormin) 12.5 mg BID NGT Last administered on 08/30/18at 23:37; Admin Dose 12.5 MG; Start 08/30/18 at 21:00 Digoxin (Digoxin) 0.125 mg DAILY@13 NGT Last administered on 08/31/18at 13:33; Admin Dose 0.125 MG; Start 08/30/18 at 13:00 Ferrous Sulfate (Feosol Liquid Cup) 300 mg DAILY NGT Last administered on 08/31/18 08:49; Admin Dose 300 MG; Start 08/31/18 at 09:00 Lansoprazole (Prevacid) 30 mg DAILY@06 NGT Last administered on 08/31/18 05:36; Admin Dose 30 MG; Start 08/31/18 at 06:00 Docusate Sodium (Colace Liquid Cup) 100 mg BID PRN NGT CONSTIPATION Last admin istered on 08/30/18at 23:46; Admin Dose 100 MG; Start 08/30/18 at 13:30 Norepinephrine 250 ml @ 1.875 mls/ hr TITRATE IV Last administered on 08/31/18at 05:50; Admin Dose 11.25 MLS/HR; Start 08/30/18 at 13:30 Methylprednisolone Sodium Succinate (Solu-Medrol) 40 mg Q8 IV Last administered on 08/31/18at 13:32; Admin Dose 40 MG; Start 08/30/18 at 15:30 Vancomycin/Sodium Chloride 250 ml @ 125 mls/hr Q36H IVPB ; Start 09/01/18 at 06:00 Cefepime HCl 50 ml @ 100 mls/hr Q24H IVPB ; Start 09/01/18 at 09:00 Sodium Chloride 1,000 ml @ 70 mls/hr [id number] IV Last administered on 08/31/18at 13:34; Admin Dose 70 MLS/HR; Start 08/31/18 at 13:00 Furosemide (Lasix) 40 mg DAILY IV ; Start 09/01/18 at 09:00 Apixaban (Eliquis) 2.5 mg BID NGT ; Start 08/31/18 at 21:00 Assessment/Plan Hospital Course (Demo Recall) 1. Atrial fibrillation with a rapid ventricular response - rate controlled - will monitor to ICU. D/C dilt gtt now with low BP. 2. Congestive heart failure exacerbation, diastolic by most recent echo in July 2018 revealing a preserved EF of 65%, acute on chronic by history. Not in CHF by exam. 3. Hypertension, mildly elevated - well Rx now. 4. Respiratory distress - transfer to ICU - ABG now. 5. Shortness of breath, likely multifactorial secondary to heart failure and chronic obstructive pulmonary disease exacerbation - now intubated, better. 6. Probable chronic obstructive pulmonary disease exacerbation. 7. Pneumonia, right lower lobe by chest x-ray, new since discharge, question aspiration. Con;t anti-Bx 8. Hyponatremia. 9. Severe leukocytosis of 29.4 - on anti-Bx, ID follows. 10. Anemia, mild - decrease dose Eliquis to 2.5 with Cr 2.4 11. Coagulopathy, likely secondary to baseline Eliquis - will probably hold to ICU, EMILY SANTAMARIA MD Aug 31, 2018 13:53
[2018-09-01] VITALS (82 sets, daily range): BP systolic 84–145; BP diastolic 36–110; PULSE 61–84; RESP 15–25
[2018-09-01] MEDS: PROPOFOL 100 ML IV SCH ×2 (00:37→06:39)
[2018-09-01] MEDS: NORepinephrine 8MG/250 ML (PMX 250 ML IV SCH (00:39)
[2018-09-01] MEDS: VANCOMYCIN 750 MG (PMX) 250 ML IVPB SCH (05:46)
[2018-09-01] MEDS: METHYLPREDNISOLONE 40 MG INJ IV SCH ×3 (05:46→20:51)
[2018-09-01] MEDS: LANSOPRAZOLE 30 MG CAP NGT SCH (05:46)
[2018-09-01] MEDS: DILTIAZEM-D5W 125MG/125ML DRIP 125 ML IV SCH (07:34)
[2018-09-01] MEDS: FERROUS SULFATE 60 MG/ML 5ML CUP NGT SCH (08:19)
[2018-09-01] MEDS: FUROSEMIDE 40 MG INJ IV SCH (08:19)
[2018-09-01] MEDS: APIXABAN 5 MG TABLET NGT SCH ×2 (08:20→20:59)
[2018-09-01] MEDS: ATENOLOL 25 MG TAB NGT SCH ×2 (08:20→20:50)
[2018-09-01] MEDS ORDERED: CEFEPIME 1GM/50 ML (PMX) 50 ML IVPB SCH (09:00)
--- NOTE | 2018-09-01 10:09 | RADRPT ---
Vent Rate: 83 bpm RR Interval: 719 msec VA Interval: [id number] msec QRS Duration: 81 msec QT Interval: 407 msec QTC Interval: 480 msec P-R-T [place]: [id number] - 79 - 263 degrees Atrial fibrillation...? atrial activity Repol abnrm suggests ischemia, diffuse leads...ST-T neg, ant/lat/inf Electronically Signed By: Yehuda Rogers
--- NOTE | 2018-09-01 10:27 | CONS ---
Consult Date/Type/Reason Admit Date/Time Aug 29, 2018 at 18:56 Initial Consult Date Type of Consult Pulmonary Date/Time of Note DATE: 09/01/18 TIME: 10:[address] chest findings noted. Patient remains vasopressor dependent. Still tachypneic. Objective Vital Signs Date Temp Pulse Resp B/P (MAP) Pulse Ox O2 O2 Flow FiO2 Time Delivery Rate 09/01/18 66 24 117/55 97 Mechanical 10:00 (75) Ventilator 09/01/18 98.4 08:00 09/01/18 30 08:00 08/29/18 10.0 23:10 Intake and Output 08/31/18 08/31/18 09/01/18 1515:00 23:00 07:00 IntakeIntake Total 506.0 ml 917.9 ml 812.5 ml OutputOutput Total 425 ml 380 ml 375 ml BalanceBalance 81.0 ml 537.9 ml 437.5 ml Exam PHYSICAL EXAMINATION: GENERAL: Elderly-appearing gentleman, now intubated on mechanical ventilation, appears comfortable at rest, no acute distress. VITAL SIGNS: NECK: Supple. No JVD or lymphadenopathy. CARDIAC: Sounds S1, S2, no added sounds or murmurs. CHEST: Diminished air entry bilaterally. ABDOMEN: Soft, nontender. No guarding or rebound. EXTREMITIES: No cyanosis or clubbing. 1+ edema. NEUROLOGIC: Unable to assess. Vent Setting Ventilator Support Mode: AC Fraction of Inspired Oxygen pe: 30 Positive End Expiratory Pressu: 0.0 Results/Medications Result Diagram: 09/01/18 0500 09/01/18 0500 Results 24 hrs Laboratory Tests Test 09/01/18 05:00 09/01/18 07:00 White Blood Count 30.3 #H Red Blood Count 3.36 L Hemoglobin 9.2 L Hematocrit 27.4 L Mean Corpuscular Volume 81.5 L Mean Corpuscular Hemoglobin 27.4 L Mean Corpuscular Hemoglobin Concent 33.6 Red Cell Distribution Width 15.0 H Platelet Count 551 H Mean Platelet Volume 9.3 Immature Granulocytes % 0.700 H Neutrophils % Segmented Neutrophils % (Manual) 87 H Band Neutrophils % (Manual) 10 H Lymphocytes % Lymphocytes % (Manual) 1 L Monocytes % Monocytes % (Manual) 2 Eosinophils % Basophils % Nucleated Red Blood Cells % 0.1 H Immature Granulocytes # 0.200 H Neutrophils # Neutrophils # (Manual) 27.3 H Band Neutrophils # 3.0 H Lymphocytes (Manual) 0.3 L Lymphocytes # Monocytes # Monocytes # (Manual) 0.6 Eosinophils # Basophils # Nucleated Red Blood Cells # Platelet Estimate INCREASED Polychromasia 2+ Poikilocytosis 3+ Anisocytosis 1+ Ovalocytes 1+ Sodium Level 139 Potassium Level 3.4 L Chloride Level 104 Carbon Dioxide Level 24 Anion Gap 11 Blood Urea Nitrogen 79 H Creatinine 2.63 H Est Glomerular Filtrat Rate mL/min Glucose Level 232 #H Calcium Level 8.3 L Phosphorus Level 4.3 Magnesium Level 2.3 Blood Gas Specimen Source Blood arterial Arterial Blood Date Drawn 09/01/2018 8:27:14 AM Arterial Blood pH (Temp corrected) 7.420 Arterial Blood pCO2 (Temp correct) 34.1 L Arterial Blood pO2 (Temp corrected) 79.0 L Arterial Blood HCO3 21.6 L Arterial Blood Base Excess -2.2 Arterial Blood Oxygen Saturation 94.7 L Harshad Test ACCEPTAB Arterial Blood Gas Puncture Site Right Radial Arterial Blood Carboxyhemoglobin 0.6 Arterial Blood Methemoglobin 0.4 Blood Gas A-a O2 Differential 94.8 H Oxyhemoglobin Percent 93.8 Blood Gas Temperature 37.0 Blood Gas Respiration Rate 24.0 Blood Gas Actual Respiration Rate 24 Blood Gas Modality VENT - AC FiO2 30.0 Blood Gas Tidal Volume 550.0 Blood Gas Notified Whom DT Blood Gas Notified Time 09/01/2018 8:53:03 AM Medications Current Medications Diltiazem HCl 125 ml @ 10 mls/hr [id number] IV Last administered on 08/31/18at 03:20; Admin Dose 10 MLS/HR; Start 08/29/18 at 18:30 Diltiazem HCl (Cardizem) 30 mg Q8 PO Last administered on 08/29/18at 21:47; Admin Dose 30 MG; Start 08/29/18 at 22:00; Status Hold Vancomycin HCl (Vanco Iv Per Pharmacy) VANCOMYCIN PER PHARMACY PER PROTOCOL XX ; Start 08/30/18 at 12:00 Propofol 100 ml @ 2.073 mls/ hr Q12H IV Last administered on 09/01/18at 06:39; Admin Dose 8.292 MLS/HR; Start 08/30/18 at 13:00 Fentanyl 100 ml @ 2.5 mls/hr TITRATE IV ; Start 08/30/18 at 13:30 Atenolol (Tenormin) 12.5 mg BID NGT Last administered on 09/01/18 08:20; Admin Dose 12.5 MG; Start 08/30/18 at 21:00 Digoxin (Digoxin) 0.125 mg DAILY@13 NGT Last administered on 08/31/18 13:33; Admin Dose 0.125 MG; Start 08/30/18 at 13:00 Ferrous Sulfate (Feosol Liquid Cup) 300 mg DAILY NGT Last administered on 09/01/18 08:19; Admin Dose 300 MG; Start 08/31/18 at 09:00 Lansoprazole (Prevacid) 30 mg DAILY@06 NGT Last administered on 09/01/18 05:46; Admin Dose 30 MG; Start 08/31/18 at 06:00 Docusate Sodium (Colace Liquid Cup) 100 mg BID PRN NGT CONSTIPATION Last administered on 08/30/18 23:46; Admin Dose 100 MG; Start 08/30/18 at 13:30 Norepinephrine 250 ml @ 1.875 mls/ hr TITRATE IV Last administered on 08/05 00:39; Admin Dose 7.5 MLS/HR; Start 08/30/18 at 13:30 Methylprednisolone Sodium Succinate (Solu-Medrol) 40 mg Q8 IV Last administered on 09/01/18 05:46; Admin Dose 40 MG; Start 08/30/18 at 15:30 Vancomycin/Sodium Chloride 250 ml @ 125 mls/hr Q36H IVPB Last administered on 09/01/18 05:46; Admin Dose 125 MLS/HR; Start 09/01/18 at 06:00 Cefepime HCl 50 ml @ 100 mls/hr Q24H IVPB Last administered on 09/01/18 08:19; Admin Dose 100 MLS/HR; Start 09/01/18 at 09:00 Sodium Chloride 1,000 ml @ 70 mls/hr [id number] IV Last administered on 08/31/18 22:13; Admin Dose 70 MLS/HR; Start 08/31/18 at 13:00 Furosemide (Lasix) 40 mg DAILY IV Last administered on 09/01/18 08:19; Admin Dose 40 MG; Start 09/01/18 at 09:00 Apixaban (Eliquis) 2.5 mg BID NGT Last administered on 09/01/18at 08:20; Admin Dose 2.5 MG; Start 08/31/18 at 21:00 Potassium Chloride 50 ml @ 25 mls/hr Q2H IVPB ; Start 09/01/18 at 09:30; Stop 09/01/18 at 13:29 Midazolam HCl 50 ml @ 1 mls/hr TITRATE IV ; Start 09/01/18 at 11:00 Assessment/Plan Hospital Course (Demo Recall) IMPRESSION AND PLAN: 1. Likely metastatic lung cancer. 2. Probable aspiration pneumonia. Bilateral infiltrates with left pleural effusion. 3. Chronic obstructive pulmonary disease exacerbation. 4. Septic shock and metabolic acidosis secondary to above. 5. Renal insufficiency. PLAN: 1. Continue vasopressors and IV fluids tube feeding as tolerated, 2. Blood cultures. 3. Broad-spectrum antibiotics. 4. DVT and GI prophylaxis. 5. Vasopressors. 6. Steroids. 7. DC propofol transition to fentanyl and Versed Critical care time 40 minutes. AISHWARYA PICKARD MD, [facility] Sep 01, 2018 10:27
[2018-09-01] MEDS: MIDAZOLAM (DRIP) 50 mg/50 mL 50 ML IV SCH ×2 (11:23→22:21)
[2018-09-01] MEDS: POTASSIUM CHLORIDE 50 ML IVPB SCH ×2 (11:23→14:00)
[2018-09-01] MEDS: FENTAnyl (DRIP) 1000 mcg/100mL 100 ML IV SCH (11:29)
--- NOTE | 2018-09-01 13:03 | PN ---
DEEPAKLBFEDERICOCedrickJASPER 09/01/18 1303: Date/Time of Note Date/Time of Note DATE: 09/01/18 TIME: 13:00 Assessment/Plan VTE Prophylaxis Risk score (from [facility] [place])>0 risk: 10 SCD applied (from [facility] [place]): Yes Pharmacological prophylaxis: apixaban Lines/Catheters IV Catheter Type (from [facility]): Central Line Central line still needed: Yes Urinary Cath still in place: Yes Reason Cath still needed: urinary retention Assessment/Plan Hospital Course 1. Sepsis 2. ALOC, lethargic.Now sedated with Propofol 3. Atrial fibrillation, now flutter , controlled 4. Hypoxic respiratory failure. Respiratory acidosis, resolved. 5. Bilateral pneumonia 6. Congestive heart failure, EF 35 to 40%, 7. Hx of right side lung cancer, in remission 8. JAMES on chronic kidney disease, creatinine baseline 1.6. Increased creatinine 9. Hx of pleural effusions, right and left and numerous thoracentesis 10. Bilateral pleural effusion 11. Hx of hypertension, now on BP support 12. Hyperlipidemia Assessment/Plan -c/w ICU care -c/w orally intubated AC 30 % -ABG reviewed -pulmonary consult dr Guajardo appreciated -Cardiology consult dr Hall -ID consult dr Stauffer, aware -DVT proph. Eliquiz 5 mg GT BID -GI proph. Protonix GT -c/w resp. treatment and IV antibiotics -pt is of cardizem drip -titrate down levophed drip, -c.w propofol for sedation -c/w tube feed Result Diagram: 09/01/18 0500 09/01/18 0500 Results 24hrs Laboratory Tests Test 09/01/18 05:00 09/01/18 07:00 White Blood Count 30.3 #H Red Blood Count 3.36 L Hemoglobin 9.2 L Hematocrit 27.4 L Mean Corpuscular Volume 81.5 L Mean Corpuscular Hemoglobin 27.4 L Mean Corpuscular Hemoglobin Concent 33.6 Red Cell Distribution Width 15.0 H Platelet Count 551 H Mean Platelet Volume 9.3 Immature Granulocytes % 0.700 H Neutrophils % Segmented Neutrophils % (Manual) 87 H Band Neutrophils % (Manual) 10 H Lymphocytes % Lymphocytes % (Manual) 1 L Monocytes % Monocytes % (Manual) 2 Eosinophils % Basophils % Nucleated Red Blood Cells % 0.1 H Immature Granulocytes # 0.200 H Neutrophils # Neutrophils # (Manual) 27.3 H Band Neutrophils # 3.0 H Lymphocytes (Manual) 0.3 L Lymphocytes # Monocytes # Monocytes # (Manual) 0.6 Eosinophils # Basophils # Nucleated Red Blood Cells # Platelet Estimate INCREASED Polychromasia 2+ Poikilocytosis 3+ Anisocytosis 1+ Ovalocytes 1+ Sodium Level 139 Potassium Level 3.4 L Chloride Level 104 Carbon Dioxide Level 24 Anion Gap 11 Blood Urea Nitrogen 79 H Creatinine 2.63 H Est Glomerular Filtrat Rate mL/min Glucose Level 232 #H Calcium Level 8.3 L Phosphorus Level 4.3 Magnesium Level 2.3 Blood Gas Specimen Source Blood arterial Arterial Blood Date Drawn 09/01/2018 8:27:14 AM Arterial Blood pH (Temp corrected) 7.420 Arterial Blood pCO2 (Temp correct) 34.1 L Arterial Blood pO2 (Temp corrected) 79.0 L Arterial Blood HCO3 21.6 L Arterial Blood Base Excess -2.2 Arterial Blood Oxygen Saturation 94.7 L Harshad Test ACCEPTAB Arterial Blood Gas Puncture Site Right Radial Arterial Blood Carboxyhemoglobin 0.6 Arterial Blood Methemoglobin 0.4 Blood Gas A-a O2 Differential 94.8 H Oxyhemoglobin Percent 93.8 Blood Gas Temperature 37.0 Blood Gas Respiration Rate 24.0 Blood Gas Actual Respiration Rate 24 Blood Gas Modality VENT - AC FiO2 30.0 Blood Gas Tidal Volume 550.0 Blood Gas Notified Whom DT Blood Gas Notified Time 09/01/2018 8:53:03 AM Subjective 24 Hr Interval Summary Subjective hx not possible: pt non-verbal, pt critical status Exam/Review of Systems Exam Vitals Vital Signs Date Temp Pulse Resp B/P (MAP) Pulse Ox O2 O2 Flow FiO2 Time Delivery Rate 09/01/18 66 24 117/55 97 Mechanical 10:00 (75) Ventilator 09/01/18 98.4 08:00 09/01/18 30 08:00 08/29/18 10.0 23:10 Intake and Output 08/31/18 08/31/18 09/01/18 1515:00 23:00 07:00 IntakeIntake Total 506.0 ml 917.9 ml 1062.5 ml OutputOutput Total 425 ml 380 ml 375 ml BalanceBalance 81.0 ml 537.9 ml 687.5 ml Exam orally intubated, sedated Constitutional: frail Neck: supple Respiratory: diminished breath sounds Cardiovascular: regular rate and rhythm Gastrointestinal: soft Genitourinary - Male: other (yañez) Skin: ecchymosis Results Result Diagram: 09/01/18 0500 09/01/18 0500 Results 24hrs Laboratory Tests Test 09/01/18 05:00 09/01/18 07:00 White Blood Count 30.3 #H Red Blood Count 3.36 L Hemoglobin 9.2 L Hematocrit 27.4 L Mean Corpuscular Volume 81.5 L Mean Corpuscular Hemoglobin 27.4 L Mean Corpuscular Hemoglobin Concent 33.6 Red Cell Distribution Width 15.0 H Platelet Count 551 H Mean Platelet Volume 9.3 Immature Granulocytes % 0.700 H Neutrophils % Segmented Neutrophils % (Manual) 87 H Band Neutrophils % (Manual) 10 H Lymphocytes % Lymphocytes % (Manual) 1 L Monocytes % Monocytes % (Manual) 2 Eosinophils % Basophils % Nucleated Red Blood Cells % 0.1 H Immature Granulocytes # 0.200 H Neutrophils # Neutrophils # (Manual) 27.3 H Band Neutrophils # 3.0 H Lymphocytes (Manual) 0.3 L Lymphocytes # Monocytes # Monocytes # (Manual) 0.6 Eosinophils # Basophils # Nucleated Red Blood Cells # Platelet Estimate INCREASED Polychromasia 2+ Poikilocytosis 3+ Anisocytosis 1+ Ovalocytes 1+ Sodium Level 139 Potassium Level 3.4 L Chloride Level 104 Carbon Dioxide Level 24 Anion Gap 11 Blood Urea Nitrogen 79 H Creatinine 2.63 H Est Glomerular Filtrat Rate mL/min Glucose Level 232 #H Calcium Level 8.3 L Phosphorus Level 4.3 Magnesium Level 2.3 Blood Gas Specimen Source Blood arterial Arterial Blood Date Drawn 09/01/2018 8:27:14 AM Arterial Blood pH (Temp corrected) 7.420 Arterial Blood pCO2 (Temp correct) 34.1 L Arterial Blood pO2 (Temp corrected) 79.0 L Arterial Blood HCO3 21.6 L Arterial Blood Base Excess -2.2 Arterial Blood Oxygen Saturation 94.7 L Harshad Test ACCEPTAB Arterial Blood Gas Puncture Site Right Radial Arterial Blood Carboxyhemoglobin 0.6 Arterial Blood Methemoglobin 0.4 Blood Gas A-a O2 Differential 94.8 H Oxyhemoglobin Percent 93.8 Blood Gas Temperature 37.0 Blood Gas Respiration Rate 24.0 Blood Gas Actual Respiration Rate 24 Blood Gas Modality VENT - AC FiO2 30.0 Blood Gas Tidal Volume 550.0 Blood Gas Notified Whom DT Blood Gas Notified Time 09/01/2018 8:53:03 AM Medications Medication Current Medications Diltiazem HCl 125 ml @ 10 mls/hr [id number] IV Last administered on 08/31/18 03:20; Admin Dose 10 MLS/HR; Start 08/29/18 at 18:30 Diltiazem HCl (Cardizem) 30 mg Q8 PO Last administered on 08/29/18 21:47; Admin Dose 30 MG; Start 08/29/18 at 22:00; Status Hold Vancomycin HCl (Vanco Iv Per Pharmacy) VANCOMYCIN PER PHARMACY PER PROTOCOL XX ; Start 08/30/18 at 12:00 Propofol 100 ml @ 2.073 mls/ hr Q12H IV Last administered on 09/01/18 06:39; Admin Dose 8.292 MLS/HR; Start 08/30/18 at 13:00 Fentanyl 100 ml @ 2.5 mls/hr TITRATE IV Last administered on 09/01/18 11:29; Admin Dose 2.5 MLS/HR; Start 08/30/18 at 13:30 Atenolol (Tenormin) 12.5 mg BID NGT Last administered on 09/01/18 08:20; Admin Dose 12.5 MG; Start 08/30/18 at 21:00 Digoxin (Digoxin) 0.125 mg DAILY@13 NGT Last administered on 08/31/18 13:33; Admin Dose 0.125 MG; Start 08/30/18 at 13:00 Ferrous Sulfate (Feosol Liquid Cup) 300 mg DAILY NGT Last administered on 09/01/18 08:19; Admin Dose 300 MG; Start 08/31/18 at 09:00 Lansoprazole (Prevacid) 30 mg DAILY@06 NGT Last administered on 09/01/18 05:46; Admin Dose 30 MG; Start 08/31/18 at 06:00 Docusate Sodium (Colace Liquid Cup) 100 mg BID PRN NGT CONSTIPATION Last administered on 08/30/18 23:46; Admin Dose 100 MG; Start 08/30/18 at 13:30 Norepinephrine 250 ml @ 1.875 mls/ hr TITRATE IV Last administered on 09/01/18 00:39; Admin Dose 7.5 MLS/HR; Start 08/30/18 at 13:30 Methylprednisolone Sodium Succinate (Solu-Medrol) 40 mg Q8 IV Last administered on 09/01/18at 05:46; Admin Dose 40 MG; Start 08/30/18 at 15:30 Vancomycin/Sodium Chloride 250 ml @ 125 mls/hr Q36H IVPB Last administered on 09/01/18at 05:46; Admin Dose 125 MLS/HR; Start 09/01/18 at 06:00 Cefepime HCl 50 ml @ 100 mls/hr Q24H IVPB Last administered on 09/01/18at 08:19; Admin Dose 100 MLS/HR; Start 09/01/18 at 09:00 Sodium Chloride 1,000 ml @ 70 mls/hr [id number] IV Last administered on 08/31/18at 22:13; Admin Dose 70 MLS/HR; Start 08/31/18 at 13:00 Furosemide (Lasix) 40 mg DAILY IV Last administered on 09/01/18at 08:19; Admin Dose 40 MG; Start 09/01/18 at 09:00 Apixaban (Eliquis) 2.5 mg BID NGT Last administered on 09/01/18at 08:20; Admin Dose 2.5 MG; Start 08/31/18 at 21:00 Potassium Chloride 50 ml @ 25 mls/hr Q2H IVPB Last administered on 09/01/18at 11:23; Admin Dose 25 MLS/HR; Start 09/01/18 at 09:30; Stop 09/01/18 at 13:29 Midazolam HCl 50 ml @ 1 mls/hr TITRATE IV Last administered on 09/01/18at 11:23; Admin Dose 2 MLS/HR; Start 09/01/18 at 11:00 Miscellaneous Information (*Rx Drug Level Order Reminder*) VANCOMYCIN TROUGH 09/02 AT 1700 1700 ONCE XX ; Start 09/02/18 at 17:00; Stop 09/02/18 at 17:01 FIDEL GAVIN MD 09/01/18 1424: Assessment/Plan Assessment/Plan Assessment/Plan SEEN AND EXAMINED WITH RETIREMENT CONSULTANT OFF levophed worseing renal failure like due to ATN/Sepsis gentle lasix ,monitor UOP renally dose all abx Result Diagram: 09/01/18 0500 09/01/18 0500 JASPER SAHU Sep 01, 2018 13:03 FIDEL GAVIN MD Sep 01, 2018 14:24
--- NOTE | 2018-09-01 13:20 | CONS ---
Consult Date/Type/Reason Admit Date/Time Aug 29, 2018 at 18:56 Initial Consult Date Date/Time of Note DATE: 09/01/18 TIME: 13:18 Subjective NO acute events - pt appears more comfortable - BP stable - rate controlled off dilt gtt - con'tto wean - high secretions. ROS: No fever, no chills, no nausea, no vomiting, no diarrhea/constipation + SOB, per nurse - decreased urine output Objective Vitals Vital Signs Date Temp Pulse Resp B/P (MAP) Pulse Ox O2 O2 Flow FiO2 Time Delivery Rate 09/01/18 66 24 117/55 97 Mechanical 10:00 (75) Ventilator 09/01/18 98.4 08:00 09/01/18 30 08:00 08/29/18 10.0 23:10 Intake and Output 08/31/18 08/31/18 09/01/18 1515:00 23:00 07:00 IntakeIntake Total 506.0 ml 917.9 ml 1062.5 ml OutputOutput Total 425 ml 380 ml 375 ml BalanceBalance 81.0 ml 537.9 ml 687.5 ml Exam General: WN/WD/NAD, AOx 0 HEENT: Unicetric/atraumatic/EOMI (does not follow commands) NECK: JVD elevated, no thyromegaly - intubated Lymph: no lymphadenopathy HEART: IRregular with no S3, II/ systolic murmur at apex LUNGS: Coarse sounds ABD: soft, NT, ND, +BS : Intact Neuro: non focal SKIN: chronic changes EXT: trace edema Results/Medications Result Diagram: 09/01/18 0500 09/01/18 0500 Results 24 hrs Laboratory Tests Test 09/01/18 05:00 09/01/18 07:00 White Blood Count 30.3 #H Red Blood Count 3.36 L Hemoglobin 9.2 L Hematocrit 27.4 L Mean Corpuscular Volume 81.5 L Mean Corpuscular Hemoglobin 27.4 L Mean Corpuscular Hemoglobin Concent 33.6 Red Cell Distribution Width 15.0 H Platelet Count 551 H Mean Platelet Volume 9.3 Immature Granulocytes % 0.700 H Neutrophils % Segmented Neutrophils % (Manual) 87 H Band Neutrophils % (Manual) 10 H Lymphocytes % Lymphocytes % (Manual) 1 L Monocytes % Monocytes % (Manual) 2 Eosinophils % Basophils % Nucleated Red Blood Cells % 0.1 H Immature Granulocytes # 0.200 H Neutrophils # Neutrophils # (Manual) 27.3 H Band Neutrophils # 3.0 H Lymphocytes (Manual) 0.3 L Lymphocytes # Monocytes # Monocytes # (Manual) 0.6 Eosinophils # Basophils # Nucleated Red Blood Cells # Platelet Estimate INCREASED Polychromasia 2+ Poikilocytosis 3+ Anisocytosis 1+ Ovalocytes 1+ Sodium Level 139 Potassium Level 3.4 L Chloride Level 104 Carbon Dioxide Level 24 Anion Gap 11 Blood Urea Nitrogen 79 H Creatinine 2.63 H Est Glomerular Filtrat Rate mL/min Glucose Level 232 #H Calcium Level 8.3 L Phosphorus Level 4.3 Magnesium Level 2.3 Blood Gas Specimen Source Blood arterial Arterial Blood Date Drawn 09/01/2018 8:27:14 AM Arterial Blood pH (Temp corrected) 7.420 Arterial Blood pCO2 (Temp correct) 34.1 L Arterial Blood pO2 (Temp corrected) 79.0 L Arterial Blood HCO3 21.6 L Arterial Blood Base Excess -2.2 Arterial Blood Oxygen Saturation 94.7 L Harshad Test ACCEPTAB Arterial Blood Gas Puncture Site Right Radial Arterial Blood Carboxyhemoglobin 0.6 Arterial Blood Methemoglobin 0.4 Blood Gas A-a O2 Differential 94.8 H Oxyhemoglobin Percent 93.8 Blood Gas Temperature 37.0 Blood Gas Respiration Rate 24.0 Blood Gas Actual Respiration Rate 24 Blood Gas Modality VENT - AC FiO2 30.0 Blood Gas Tidal Volume 550.0 Blood Gas Notified Whom DT Blood Gas Notified Time 09/01/2018 8:53:03 AM Home Meds Reported Medications Mupirocin Calcium* (Mupirocin*) 2% - 15 Gram Cream..g., 1 APPLIC TOP BID, #1 TUB 08/29/18 Ondansetron Hcl* (Zofran*) 4 Mg Tab, 4 MG PO Q6H PRN for NAUSEA AND OR VOMITING, TAB 08/29/18 Ipratropium-Albuterol (Ipratropium-Albuterol) 0.5-3 Mg/3 Ml Ampul.neb, 3 ML INHALATION Q6 PRN for WHEEZING AND SOB, #30 VIAL 08/29/18 Ferrous Sulfate* (Ferrous Sulfate*) 325 Mg Tabec, 325 MG PO DAILY, TAB 08/29/18 Apixaban* (Eliquis*) 5 Mg Tablet, 5 MG PO BID, TAB 08/29/18 Docusate Sodium* (Colace*) 100 Mg Capsule, 100 MG PO BID, #60 CAP 08/29/18 Bisacodyl* (Bisacodyl*) 5 Mg Tablet.dr, 10 MG PO BID PRN for CONSTIPATION, TAB 08/29/18 Tuberculin,Purif.prot.deriv. (Aplisol) 5 Tub Unit/0.1 Ml Vial, 5 TUB ID ONCE, VIAL START DATE 08/31/18 -- END DATE 09/01/18 08/29/18 Acetaminophen* (Acetaminophen*) 650 Mg Tablet, 650 MG PO Q6H PRN for PAIN LEVEL 1-12/12, #30 TAB AND FEVER>101F 08/29/18 Guaifenesin (Guaifenesin) 100 Mg/5 Ml Liquid, 10 ML PO NEEDED PRN for COUGH, ML 08/13/18 Diltiazem Hcl* (Cardizem*) 30 Mg Tablet, 30 MG PO Q8 for CHF, #90 TAB HOLD IF SBP<110 OR HR<60 08/13/18 Aspirin* (Aspirin* EC) 81 Mg Tablet.dr, 81 MG PO DAILY, TAB 08/13/18 Digoxin* (Digitek*) 125 Mcg Tablet, 0.125 MG PO DAILY, TAB HOLD IF SBP<110 OR HR<60 08/13/18 Atenolol* (Atenolol*) 25 Mg Tablet, 12.5 MG PO BID, #60 TAB HOLD IF SBP<110 OR HR<60 08/13/18 Furosemide* (Furosemide*) 40 Mg Tablet, 40 MG PO DAILY, TAB HOLD IF SBP<110 OR HR<60 08/13/18 Magnesium Hydroxide* (Milk Of Magnesia*) 400 Mg/5 Ml Oral.susp, 30 ML PO DAILY, ML 08/13/18 Potassium Chloride* (Klor-Con*) 20 Meq Tabsr, 20 MEQ PO DAILY, TAB.SA 07/11/18 Pantoprazole* (Pantoprazole*) 40 Mg Tablet.dr, 40 MG PO DAILY, TAB 07/11/18 Discontinued Reported Medications Albuterol Sulfate* (Proair HFA*) 8.5 Gm Hfa.aer.ad, 2 PUFF INH Q6H PRN for WHEEZING AND SOB, #1 INHALER 08/13/18 Hydrocortisone* Topical (Hydrocortisone* Topical) 2.5%-28.3 Gm Cream..g., 1 APPLIC TOP BID PRN for ITCHING, TUB 08/13/18 Acetaminophen* (Acetaminophen*) 500 MG Extra Strength Tablet, 500 MG PO Q6H PRN for PAIN AND OR ELEVATED TEMP, TAB 08/13/18 Dabigatran Etexilate Mesylate* (Pradaxa*) 75 Mg Cap, 75 MG PO BID, CAP 07/11/18 Discontinued Scripts Ipratropium-Albuterol (Ipratropium-Albuterol) 0.5-3 Mg/3 Ml Ampul.neb, 3 ML HHN Q4H RESP THERAPY for 30 Days Prov:JASPER SAHU 07/19/18 Medications Current Medications Diltiazem HCl 125 ml @ 10 mls/hr [id number] IV Last administered on 08/31/18at 03:20; Admin Dose 10 MLS/HR; Start 08/29/18 at 18:30 Diltiazem HCl (Cardizem) 30 mg Q8 PO Last administered on 08/29/18at 21:47; Admin Dose 30 MG; Start 08/29/18 at 22:00; Status Hold Vancomycin HCl (Vanco Iv Per Pharmacy) VANCOMYCIN PER PHARMACY PER PROTOCOL XX ; Start 08/30/18 at 12:00 Propofol 100 ml @ 2.073 mls/ hr Q12H IV Last administered on 09/01/18at 06:39; Admin Dose 8.292 MLS/HR; Start 08/30/18 at 13:00 Fentanyl 100 ml @ 2.5 mls/hr TITRATE IV Last administered on 09/01/18at 11:29; Admin Dose 2.5 MLS/HR; Start 08/30/18 at 13:30 Atenolol (Tenormin) 12.5 mg BID NGT Last administered on 09/01/18at 08:20; Admin Dose 12.5 MG; Start 08/30/18 at 21:00 Digoxin (Digoxin) 0.125 mg DAILY@13 NGT Last administered on 08/31/18at 13:33; Admin Dose 0.125 MG; Start 08/30/18 at 13:00 Ferrous Sulfate (Feosol Liquid Cup) 300 mg DAILY NGT Last administered on 09/01/18at 08:19; Admin Dose 300 MG; Start 08/31/18 at 09:00 Lansoprazole (Prevacid) 30 mg DAILY@06 NGT Last administered on 09/01/18 05:46; Admin Dose 30 MG; Start 08/31/18 at 06:00 Docusate Sodium (Colace Liquid Cup) 100 mg BID PRN NGT CONSTIPATION Last administered on 08/30/18 23:46; Admin Dose 100 MG; Start 08/30/18 at 13:30 Norepinephrine 250 ml @ 1.875 mls/ hr TITRATE IV Last administered on 09/01/18 00:39; Admin Dose 7.5 MLS/HR; Start 08/30/18 at 13:30 Methylprednisolone Sodium Succinate (Solu-Medrol) 40 mg Q8 IV Last administered on 09/01/18 05:46; Admin Dose 40 MG; Start 08/30/18 at 15:30 Vancomycin/Sodium Chloride 250 ml @ 125 mls/hr Q36H IVPB Last administered on 09/01/18 05:46; Admin Dose 125 MLS/HR; Start 09/01/18 at 06:00 Cefepime HCl 50 ml @ 100 mls/hr Q24H IVPB Last administered on 09/01/18 08:19; Admin Dose 100 MLS/HR; Start 09/01/18 at 09:00 Sodium Chloride 1,000 ml @ 70 mls/hr [id number] IV Last administered on 08/31/18 22:13; Admin Dose 70 MLS/HR; Start 08/31/18 at 13:00 Furosemide (Lasix) 40 mg DAILY IV Last administered on 09/01/18 08:19; Admin Dose 40 MG; Start 09/01/18 at 09:00 Apixaban (Eliquis) 2.5 mg BID NGT Last administered on 09/01/18 08:20; Admin Dose 2.5 MG; Start 08/31/18 at 21:00 Potassium Chloride 50 ml @ 25 mls/hr Q2H IVPB Last administered on 09/01/18 11:23; Admin Dose 25 MLS/HR; Start 09/01/18 at 09:30; Stop 09/01/18 at 13:29 Midazolam HCl 50 ml @ 1 mls/hr TITRATE IV Last administered on 09/01/18 11:23; Admin Dose 2 MLS/HR; Start 09/01/18 at 11:00 Miscellaneous Information (*Rx Drug Level Order Reminder*) VANCOMYCIN TROUGH 09/02 AT 1700 1700 ONCE XX ; Start 09/02/18 at 17:00; Stop 09/02/18 at 17:01 Assessment/Plan Hospital Course (Demo Recall) 1. Atrial fibrillation with a rapid ventricular response - rate controlled - will monitor to ICU. D/C dilt gtt now with low BP. Rate controlled off dilt gtt now. 2. Congestive heart failure exacerbation, diastolic by most recent echo in July 2018 revealing a preserved EF of 65%, acute on chronic by history. Not in CHF by exam. Keep euvolemic. 3. Hypertension, mildly elevated - well Rx now. Supportive Rx now. 4. Respiratory distress - transfer to ICU - ABG now. 5. Shortness of breath, likely multifactorial secondary to heart failure and chronic obstructive pulmonary disease exacerbation - now intubated, better. 6. Probable chronic obstructive pulmonary disease exacerbation. 7. Pneumonia, right lower lobe by chest x-ray, new since discharge, question aspiration. Con;t anti-Bx On meds - high secretions. 8. Hyponatremia. 9. Severe leukocytosis of 29.4 - on anti-Bx, ID follows. 10. Anemia, mild - decrease dose Eliquis to 2.5 with Cr 2.5 now - stable. 11. Coagulopathy, likely secondary to baseline Eliquis - will probably hold to ICU, EMILY SANTAMARIA MD Sep 01, 2018 13:20
[2018-09-01] MEDS: DIGOXIN 0.125 MG TAB NGT SCH (13:58)
--- NOTE | 2018-09-01 14:22 | CONS ---
Assessment/Plan Assessment/Plan Hospital Course (Demo Recall) No acute events overnight patient remains intubated sedated Levophed is off as of now WBC today 30.3 H&H 9.2 and 27.4 platelets 551. Neutrophils 87 bands 10 BUN 79 creatinine 2.63 Microbiology: Blood culture growing gram-positive cocci in pair 1 out of 2 sets Chest x-ray this morning revealed stable extensive infiltrates throughout both lungs with moderate left pleural effusion and small right pleural effusion CT of the chest this morning revealed patchy bilateral pulmonary consolidation greater on the left concerning for multilobar pneumonia. Please see full report in the chart Indwelling: Endotracheal tube NG tube Bar catheter right femoral triple-lumen catheter Antimicrobials: Vancomycin and cefepime Physical examination: Chronically ill appearing wasted elderly man who is intubated sedated in no distress. Head atraumatic normocephalic neck is supple chest rise symmetrical breath sounds diminished bases heart S1-S2 abdomen soft bowel sounds hypoactive extremities without cyanosis Assessment: 1. Severe sepsis with shock 2. Acute hypoxemic respiratory failure possibly aspiration 3. Multilobar pneumonia 4. COPD 5. History of lung cancer status post radiation, details unknown 6. Atrial fibrillation status post RVR 7. Bacteremia, possibly contaminant Plan: We are going to change cefepime to meropenem, follow final cultures, monitor renal function closely Consultation Date/Type/Reason Admit Date/Time Aug 29, 2018 at 18:56 Initial Consult Date Type of Consult id Date/Time of Note DATE: 09/01/18 TIME: 14:20 Exam/Review of Systems Exam Vitals Vital Signs Date Temp Pulse Resp B/P (MAP) Pulse Ox O2 O2 Flow FiO2 Time Delivery Rate 09/01/18 66 12:00 09/01/18 24 117/55 97 Mechanical 10:00 (75) Ventilator 09/01/18 98.4 08:00 09/01/18 30 08:00 08/29/18 10.0 23:10 Intake and Output 08/31/18 08/31/18 09/01/18 1515:00 23:00 07:00 IntakeIntake Total 506.0 ml 917.9 ml 1062.5 ml OutputOutput Total 425 ml 380 ml 375 ml BalanceBalance 81.0 ml 537.9 ml 687.5 ml Results Result Diagram: 09/01/18 0500 09/01/18 0500 Results 24hrs Laboratory Tests Test 09/01/18 05:00 09/01/18 07:00 White Blood Count 30.3 #H Red Blood Count 3.36 L Hemoglobin 9.2 L Hematocrit 27.4 L Mean Corpuscular Volume 81.5 L Mean Corpuscular Hemoglobin 27.4 L Mean Corpuscular Hemoglobin Concent 33.6 Red Cell Distribution Width 15.0 H Platelet Count 551 H Mean Platelet Volume 9.3 Immature Granulocytes % 0.700 H Neutrophils % Segmented Neutrophils % (Manual) 87 H Band Neutrophils % (Manual) 10 H Lymphocytes % Lymphocytes % (Manual) 1 L Monocytes % Monocytes % (Manual) 2 Eosinophils % Basophils % Nucleated Red Blood Cells % 0.1 H Immature Granulocytes # 0.200 H Neutrophils # Neutrophils # (Manual) 27.3 H Band Neutrophils # 3.0 H Lymphocytes (Manual) 0.3 L Lymphocytes # Monocytes # Monocytes # (Manual) 0.6 Eosinophils # Basophils # Nucleated Red Blood Cells # Platelet Estimate INCREASED Polychromasia 2+ Poikilocytosis 3+ Anisocytosis 1+ Ovalocytes 1+ Sodium Level 139 Potassium Level 3.4 L Chloride Level 104 Carbon Dioxide Level 24 Anion Gap 11 Blood Urea Nitrogen 79 H Creatinine 2.63 H Est Glomerular Filtrat Rate mL/min Glucose Level 232 #H Calcium Level 8.3 L Phosphorus Level 4.3 Magnesium Level 2.3 Blood Gas Specimen Source Blood arterial Arterial Blood Date Drawn 09/01/2018 8:27:14 AM Arterial Blood pH (Temp corrected) 7.420 Arterial Blood pCO2 (Temp correct) 34.1 L Arterial Blood pO2 (Temp corrected) 79.0 L Arterial Blood HCO3 21.6 L Arterial Blood Base Excess -2.2 Arterial Blood Oxygen Saturation 94.7 L Harshad Test ACCEPTAB Arterial Blood Gas Puncture Site Right Radial Arterial Blood Carboxyhemoglobin 0.6 Arterial Blood Methemoglobin 0.4 Blood Gas A-a O2 Differential 94.8 H Oxyhemoglobin Percent 93.8 Blood Gas Temperature 37.0 Blood Gas Respiration Rate 24.0 Blood Gas Actual Respiration Rate 24 Blood Gas Modality VENT - AC FiO2 30.0 Blood Gas Tidal Volume 550.0 Blood Gas Notified Whom DT Blood Gas Notified Time 09/01/2018 8:53:03 AM Medications Medication Current Medications Diltiazem HCl 125 ml @ 10 mls/hr [id number] IV Last administered on 08/31/18at 03:20; Admin Dose 10 MLS/HR; Start 08/29/18 at 18:30 Diltiazem HCl (Cardizem) 30 mg Q8 PO Last administered on 08/29/18 21:47; Admin Dose 30 MG; Start 08/29/18 at 22:00; Status Hold Vancomycin HCl (Vanco Iv Per Pharmacy) VANCOMYCIN PER PHARMACY PER PROTOCOL XX ; Start 08/30/18 at 12:00 Propofol 100 ml @ 2.073 mls/ hr Q12H IV Last administered on 09/01/18 06:39; Admin Dose 8.292 MLS/HR; Start 08/30/18 at 13:00 Fentanyl 100 ml @ 2.5 mls/hr TITRATE IV Last administered on 09/01/18 11:29; Admin Dose 2.5 MLS/HR; Start 08/30/18 at 13:30 Atenolol (Tenormin) 12.5 mg BID NGT Last administered on 09/01/18 08:20; Admin Dose 12.5 MG; Start 08/30/18 at 21:00 Digoxin (Digoxin) 0.125 mg DAILY@13 NGT Last administered on 09/01/18 13:58; Admin Dose 0.125 MG; Start 08/30/18 at 13:00 Ferrous Sulfate (Feosol Liquid Cup) 300 mg DAILY NGT Last administered on 09/01/18 08:19; Admin Dose 300 MG; Start 08/31/18 at 09:00 Lansoprazole (Prevacid) 30 mg DAILY@06 NGT Last administered on 09/01/18 05:46; Admin Dose 30 MG; Start 08/31/18 at 06:00 Docusate Sodium (Colace Liquid Cup) 100 mg BID PRN NGT CONSTIPATION Last administered on 08/30/18 23:46; Admin Dose 100 MG; Start 08/30/18 at 13:30 Norepinephrine 250 ml @ 1.875 mls/ hr TITRATE IV Last administered on 09/01/18 00:39; Admin Dose 7.5 MLS/HR; Start 08/30/18 at 13:30 Methylprednisolone Sodium Succinate (Solu-Medrol) 40 mg Q8 IV Last administered on 09/01/18 13:58; Admin Dose 40 MG; Start 08/30/18 at 15:30 Vancomycin/Sodium Chloride 250 ml @ 125 mls/hr Q36H IVPB Last administered on 09/01/18at 05:46; Admin Dose 125 MLS/HR; Start 09/01/18 at 06:00 Cefepime HCl 50 ml @ 100 mls/hr Q24H IVPB Last administered on 09/01/18at 08: 19; Admin Dose 100 MLS/HR; Start 09/01/18 at 09:00 Sodium Chloride 1,000 ml @ 70 mls/hr [id number] IV Last administered on 08/31/18at 22:13; Admin Dose 70 MLS/HR; Start 08/31/18 at 13:00 Furosemide (Lasix) 40 mg DAILY IV Last administered on 09/01/18at 08:19; Admin Dose 40 MG; Start 09/01/18 at 09:00 Apixaban (Eliquis) 2.5 mg BID NGT Last administered on 09/01/18at 08:20; Admin Dose 2.5 MG; Start 08/31/18 at 21:00 Midazolam HCl 50 ml @ 1 mls/hr TITRATE IV Last administered on 09/01/18at 11:23; Admin Dose 2 MLS/HR; Start 09/01/18 at 11:00 Miscellaneous Information (*Rx Drug Level Order Reminder*) VANCOMYCIN TROUGH 09/02 AT 1700 1700 ONCE XX ; Start 09/02/18 at 17:00; Stop 09/02/18 at 17:01 SUZANNE DANIELS NP Sep 01, 2018 14:22
[2018-09-01] MEDS ORDERED: GLUCAGON 1 MG INJ IM PRN (15:00)
[2018-09-01] MEDS ORDERED: GLUCOSE GEL 15 GRAM TUBE PO PRN ×2 (15:00)
[2018-09-01] MEDS ORDERED: GLUCOSE GEL 15 GRAM TUBE BUCCAL PRN (15:00)
[2018-09-01] MEDS ORDERED: DEXTROSE 50% 50 ML SYRINGE IV PRN ×2 (15:00)
[2018-09-01] MEDS: SOD CHLORIDE 0.9% 1,000 ML IV SCH (17:59)
[2018-09-01] MEDS: INSULIN ASPART [NOVOLOG] 3 ML PEN SC SCH ×2 (18:05→20:53)
[2018-09-01] MEDS: MEROPENEM 500MG/50 ML (PMX) 50 ML IVPB SCH (20:51)
[2018-09-02] VITALS (38 sets, daily range): BP systolic 85–138; BP diastolic 40–65; PULSE 56–88; RESP 19–26
[2018-09-02] MEDS: INSULIN ASPART [NOVOLOG] 3 ML PEN SC SCH ×6 (01:28→21:01)
[2018-09-02] MEDS ORDERED: ACCU-CHEK XX SCH (02:00)
[2018-09-02] MEDS: LANSOPRAZOLE 30 MG CAP NGT SCH (05:21)
[2018-09-02] MEDS: SOD CHLORIDE 0.9% 1,000 ML IV SCH ×2 (06:46→09:04)
[2018-09-02] MEDS: ATENOLOL 25 MG TAB NGT SCH ×2 (09:00→21:00)
[2018-09-02] MEDS: METHYLPREDNISOLONE 40 MG INJ IV SCH (09:04)
[2018-09-02] MEDS: FERROUS SULFATE 60 MG/ML 5ML CUP NGT SCH (09:04)
[2018-09-02] MEDS: FUROSEMIDE 40 MG INJ IV SCH (09:04)
[2018-09-02] MEDS: APIXABAN 5 MG TABLET NGT SCH ×2 (09:05→20:54)
[2018-09-02] MEDS: MEROPENEM 500MG/50 ML (PMX) 50 ML IVPB SCH ×2 (09:06→20:54)
--- NOTE | 2018-09-02 09:51 | CONS ---
Consult Date/Type/Reason Admit Date/Time Aug 29, 2018 at 18:56 Initial Consult Date Type of Consult Pulmonary Date/Time of Note DATE: 09/02/18 TIME: 09:51 Subjective Patient continues mechanical ventilation orally intubated currently not requiring vasopressors. Moderate secretions chest x-ray demonstrating bilateral infiltrates. Objective Vital Signs Date Temp Pulse Resp B/P (MAP) Pulse Ox O2 O2 Flow FiO2 Time Delivery Rate 09/02/18 65 24 97 30 09:07 09/02/18 102/47 Mechanical 06:00 (65) Ventilator 09/02/18 98.3 04:00 08/29/18 10.0 23:10 Intake and Output 09/01/18 09/01/18 09/02/18 1515:00 23:00 07:00 IntakeIntake Total 773.0 ml 981.0 ml 775.0 ml OutputOutput Total 400 ml 305 ml 210 ml BalanceBalance 373.0 ml 676.0 ml 565.0 ml Exam PHYSICAL EXAMINATION: GENERAL: Elderly-appearing gentleman, now intubated on mechanical ventilation, appears comfortable at rest, no acute distress. VITAL SIGNS: NECK: Supple. No JVD or lymphadenopathy. CARDIAC: Sounds S1, S2, no added sounds or murmurs. CHEST: Diminished air entry bilaterally. ABDOMEN: Soft, nontender. No guarding or rebound. EXTREMITIES: No cyanosis or clubbing. 1+ edema. NEUROLOGIC: Unable to assess. Vent Setting Ventilator Support Mode: AC Fraction of Inspired Oxygen pe: 30 Positive End Expiratory Pressu: 0.0 Results/Medications Result Diagram: 09/02/18 0435 09/02/18 0435 Results 24 hrs Laboratory Tests Test 09/01/18 18:00 09/01/18 20:52 09/02/18 01:00 09/02/18 04:35 Bedside Glucose 237 H 171 236 H White Blood Count 20.3 #H Red Blood Count 3.16 L Hemoglobin 8.7 L Hematocrit 25.5 L Mean Corpuscular 80.7 L Volume Mean Corpuscular 27.5 L Hemoglobin Mean Corpuscular 34.1 Hemoglobin Concent Red Cell Distribution 15.1 H Width Platelet Count 455 H Mean Platelet Volume 9.3 Immature Granulocytes 1.200 H % Neutrophils % 88.8 H Lymphocytes % 3.3 L Monocytes % 6.6 Eosinophils % 0.0 Basophils % 0.1 Nucleated Red Blood 0.1 H Cells % Immature Granulocytes 0.250 H # Neutrophils # 18.0 H Lymphocytes # 0.7 L Monocytes # 1.3 H Eosinophils # 0.0 Basophils # 0.0 Nucleated Red Blood 0.0 Cells # Sodium Level 143 Potassium Level 3.6 Chloride Level 110 Carbon Dioxide Level 24 Anion Gap 9 Blood Urea Nitrogen 102 H Creatinine 2.74 H Est Glomerular Filtrat Rate mL/min Glucose Level 163 Calcium Level 8.6 Creatine Kinase 316 H Digoxin Level 1.6 Test 09/02/18 05:20 09/02/18 09:08 Bedside Glucose 167 209 Medications Current Medications Diltiazem HCl (Cardizem) 30 mg Q8 PO Last administered on 08/29/18 21:47; Admin Dose 30 MG; Start 08/29/18 at 22:00; Status Hold Vancomycin HCl (Vanco Iv Per Pharmacy) VANCOMYCIN PER PHARMACY PER PROTOCOL XX ; Start 08/30/18 at 12:00 Propofol 100 ml @ 2.073 mls/ hr Q12H IV Last administered on 09/01/18 06:39; Admin Dose 8.292 MLS/HR; Start 08/30/18 at 13:00 Fentanyl 100 ml @ 2.5 mls/hr TITRATE IV Last administered on 09/01/18 11:29; Admin Dose 2.5 MLS/HR; Start 08/30/18 at 13:30 Atenolol (Tenormin) 12.5 mg BID NGT Last administered on 09/01/18 08:20; Admin Dose 12.5 MG; Start 08/30/18 at 21:00 Digoxin (Digoxin) 0.125 mg DAILY@13 NGT Last administered on 09/01/18at 13:58; Admin Dose 0.125 MG; Start 08/30/18 at 13:00 Ferrous Sulfate (Feosol Liquid Cup) 300 mg DAILY NGT Last administered on 09/02/18 09:04; Admin Dose 300 MG; Start 08/31/18 at 09:00 Lansoprazole (Prevacid) 30 mg DAILY@06 NGT Last administered on 09/02/18 05:21; Admin Dose 30 MG; Start 08/31/18 at 06:00 Docusate Sodium (Colace Liquid Cup) 100 mg BID PRN NGT CONSTIPATION Last administered on 6/28/19at 23:46; Admin Dose 100 MG; Start 08/30/18 at 13:30 Norepinephrine 250 ml @ 1.875 mls/ hr TITRATE IV Last administered on at 00:39; Admin Dose 7.5 MLS/HR; Start 08/30/18 at 13:30 Vancomycin/Sodium Chloride 250 ml @ 125 mls/hr Q36H IVPB Last administered on 09/01/18at 05:46; Admin Dose 125 MLS/HR; Start 09/01/18 at 06:00 Sodium Chloride 1,000 ml @ 70 mls/hr [id number] IV Last administered on 09/02/18 09:04; Admin Dose 70 MLS/HR; Start 08/31/18 at 13:00 Furosemide (Lasix) 40 mg DAILY IV Last administered on 09/02/18 09:04; Admin Dose 40 MG; Start 09/01/18 at 09:00 Apixaban (Eliquis) 2.5 mg BID NGT Last administered on 09/02/18 09:05; Admin Dose 2.5 MG; Start 08/31/18 at 21:00 Midazolam HCl 50 ml @ 1 mls/hr TITRATE IV Last administered on 09/01/18at 22:21; Admin Dose 5 MLS/HR; Start 09/01/18 at 11:00 Miscellaneous Information (*Rx Drug Level Order Reminder*) VANCOMYCIN TROUGH 09/02 AT 1700 1700 ONCE XX ; Start 09/02/18 at 17:00; Stop 09/02/18 at 17:01 Methylprednisolone Sodium Succinate (Solu-Medrol) 40 mg Q12 IV Last administered on 09/02/18at 09:04; Admin Dose 40 MG; Start 09/01/18 at 21:00 Meropenem/Sodium Chloride 50 ml @ 100 mls/hr Q12 IVPB Last administered on 09/02/18 09:06; Admin Dose 100 MLS/HR; Start 09/01/18 at 21:00 Miscellaneous Information 1 ea NOTE XX ; Start 09/01/18 at 15:00 Glucose (Glutose) 15 gm Q15M PRN PO DECREASED GLUCOSE; Start 09/01/18 at 15:00 Glucose (Glutose) 22.5 gm Q15M PRN PO DECREASED GLUCOSE; Start 09/01/18 at 15:00 Dextrose (D50w Syringe) 25 ml Q15M PRN IV DECREASED GLUCOSE; Start 09/01/18 at 15:00 Dextrose (D50w Syringe) 50 ml Q15M PRN IV DECREASED GLUCOSE; Start 09/01/18 at 15:00 Glucagon (Glucagen) 1 mg Q15M PRN IM DECREASED GLUCOSE; Start 09/01/18 at 15:00 Glucose (Glutose) 15 gm Q15M PRN BUCCAL DECREASED GLUCOSE; Start 09/01/18 at 15:00 Insulin Aspart (Novolog Insulin Pen) NOVOLOG *MILD* ALGORI... Q4 SC Last administered on 09/02/18at 09:21; Admin Dose 2 UNIT; Start 09/02/18 at 01:00 Assessment/Plan Hospital Course (Demo Recall) IMPRESSION AND PLAN: 1. Likely metastatic lung cancer. 2. Probable aspiration pneumonia. Bilateral infiltrates with left pleural effusion. 3. Chronic obstructive pulmonary disease exacerbation. 4. Septic shock and metabolic acidosis secondary to above. 5. Renal insufficiency. PLAN: 1. Continue vasopressors and IV fluids tube feeding as tolerated, 2. Blood cultures. 3. Broad-spectrum antibiotics. 4. DVT and GI prophylaxis. 5. Vasopressors. 6. Steroids. 7. Fentanyl and Versed as tolerated Critical care time 40 minutes. Palliative care consult regarding goals of care. AISHWARYA PICKARD MD, [facility] Sep 02, 2018 09:51
--- NOTE | 2018-09-02 10:23 | CONS ---
Assessment/Plan Assessment/Plan Assessment/Plan (Daily) Stating a palliative care consultation on this 78-year-old gentleman who is in the intensive care unit had [facility] intubated. According to nursing staff this patient has had a long history of at least 3 intubations and successful extubation's in the past. Patient is known contact is his [employer] [facility] for healthcare filled. I spoke with him this morning he is a clear understanding and perspective the patient underlying medical illnesses his hopes are that patient does not suffer them. Most important he is decided to change his CODE STATUS to DNI DNR no reintubation he does not want him to suffer we also spoke about patient is is unable to be extubated the next step would be goals of care specifically end-of-life care. He is a very pleasant gentleman speaking and fully understands patient's underlying serious and recurrent medical illness estimated prognosis for this gentleman is extremely poor his palliative performance scale is less than 10%. There are no psychosocial social or spiritual issues that need to be addressed at this time or ethical legal issues will check that patient's paperwork and so far as CODE STATUS and patient's agent is correct in the patient's chart. Consultation Date/Type/Reason Admit Date/Time Aug 29, 2018 at 18:56 Date/Time of Note DATE: 09/02/18 TIME: 10:23 Past Medical History Medical History: congestive heart failure, coronary artery disease, hypertension, renal disease Home Meds Reported Medications Mupirocin Calcium* (Mupirocin*) 2% - 15 Gram Cream..g., 1 APPLIC TOP BID, #1 TUB 08/29/18 Ondansetron Hcl* (Zofran*) 4 Mg Tab, 4 MG PO Q6H PRN for NAUSEA AND OR VOMITING, TAB 08/29/18 Ipratropium-Albuterol (Ipratropium-Albuterol) 0.5-3 Mg/3 Ml Ampul.neb, 3 ML INHALATION Q6 PRN for WHEEZING AND SOB, #30 VIAL 08/29/18 Ferrous Sulfate* (Ferrous Sulfate*) 325 Mg Tabec, 325 MG PO DAILY, TAB 08/29/18 Apixaban* (Eliquis*) 5 Mg Tablet, 5 MG PO BID, TAB 08/29/18 Docusate Sodium* (Colace*) 100 Mg Capsule, 100 MG PO BID, #60 CAP 08/29/18 Bisacodyl* (Bisacodyl*) 5 Mg Tablet.dr, 10 MG PO BID PRN for CONSTIPATION, TAB 08/29/18 Tuberculin,Purif.prot.deriv. (Aplisol) 5 Tub Unit/0.1 Ml Vial, 5 TUB ID ONCE, VIAL START DATE 08/31/18 -- END DATE 09/01/18 08/29/18 Acetaminophen* (Acetaminophen*) 650 Mg Tablet, 650 MG PO Q6H PRN for PAIN LEVEL 1-1010, #30 TAB AND FEVER>101F 08/29/18 Guaifenesin (Guaifenesin) 100 Mg/5 Ml Liquid, 10 ML PO NEEDED PRN for COUGH, ML 08/13/18 Diltiazem Hcl* (Cardizem*) 30 Mg Tablet, 30 MG PO Q8 for CHF, #90 TAB HOLD IF SBP<110 OR HR<60 08/13/18 Aspirin* (Aspirin* EC) 81 Mg Tablet.dr, 81 MG PO DAILY, TAB 08/13/18 Digoxin* (Digitek*) 125 Mcg Tablet, 0.125 MG PO DAILY, TAB HOLD IF SBP<110 OR HR<60 08/13/18 Atenolol* (Atenolol*) 25 Mg Tablet, 12.5 MG PO BID, #60 TAB HOLD IF SBP<110 OR HR<60 08/13/18 Furosemide* (Furosemide*) 40 Mg Tablet, 40 MG PO DAILY, TAB HOLD IF SBP<110 OR HR<60 08/13/18 Magnesium Hydroxide* (Milk Of Magnesia*) 400 Mg/5 Ml Oral.susp, 30 ML PO DAILY, ML 08/13/18 Potassium Chloride* (Klor-Con*) 20 Meq Tabsr, 20 MEQ PO DAILY, TAB.SA 07/11/18 Pantoprazole* (Pantoprazole*) 40 Mg Tablet.dr, 40 MG PO DAILY, TAB 07/11/18 Discontinued Reported Medications Albuterol Sulfate* (Proair HFA*) 8.5 Gm Hfa.aer.ad, 2 PUFF INH Q6H PRN for WHEEZING AND SOB, #1 INHALER 08/13/18 Hydrocortisone* Topical (Hydrocortisone* Topical) 2.5%-28.3 Gm Cream..g., 1 APPLIC TOP BID PRN for ITCHING, TUB 08/13/18 Acetaminophen* (Acetaminophen*) 500 MG Extra Strength Tablet, 500 MG PO Q6H PRN for PAIN AND OR ELEVATED TEMP, TAB 08/13/18 Dabigatran Etexilate Mesylate* (Pradaxa*) 75 Mg Cap, 75 MG PO BID, CAP 07/11/18 Discontinued Scripts Ipratropium-Albuterol (Ipratropium-Albuterol) 0.5-3 Mg/3 Ml Ampul.neb, 3 ML HHN Q4H RESP THERAPY for 30 Days Prov:JASPER SAHU 07/19/18 Medications Current Medications Diltiazem HCl (Cardizem) 30 mg Q8 PO Last administered on 08/29/18at 21:47; Admin Dose 30 MG; Start 08/29/18 at 22:00; Status Hold Vancomycin HCl (Vanco Iv Per Pharmacy) VANCOMYCIN PER PHARMACY PER PROTOCOL XX ; Start 08/30/18 at 12:00 Propofol 100 ml @ 2.073 mls/ hr Q12H IV Last administered on 09/01/18at 06:39; Admin Dose 8.292 MLS/HR; Start 08/30/18 at 13:00 Fentanyl 100 ml @ 2.5 mls/hr TITRATE IV Last administered on 09/01/18at 11:29; Admin Dose 2.5 MLS/HR; Start 08/30/18 at 13:30 Atenolol (Tenormin) 12.5 mg BID NGT Last administered on 09/01/18at 08:20; Admin Dose 12.5 MG; Start 08/30/18 at 21:00 Digoxin (Digoxin) 0.125 mg DAILY@13 NGT Last administered on 09/01/18at 13:58; Admin Dose 0.125 MG; Start 08/30/18 at 13:00 Ferrous Sulfate (Feosol Liquid Cup) 300 mg DAILY NGT Last administered on 09/02/18at 09:04; Admin Dose 300 MG; Start 08/31/18 at 09:00 Lansoprazole (Prevacid) 30 mg DAILY@06 NGT Last administered on 09/02/18at 05:21; Admin Dose 30 MG; Start 08/31/18 at 06:00 Docusate Sodium (Colace Liquid Cup) 100 mg BID PRN NGT CONSTIPATION Last administered on 08/30/18at 23:46; Admin Dose 100 MG; Start 08/30/18 at 13:30 Norepinephrine 250 ml @ 1.875 mls/ hr TITRATE IV Last administered on 09/01/18at 00:39; Admin Dose 7.5 MLS/HR; Start 08/30/18 at 13:30 Vancomycin/Sodium Chloride 250 ml @ 125 mls/hr Q36H IVPB Last administered on 09/01/18at 05:46; Admin Dose 125 MLS/HR; Start 09/01/18 at 06:00 Sodium Chloride 1,000 ml @ 70 mls/hr [id number] IV Last administered on 09/02/18 09:04; Admin Dose 70 MLS/HR; Start 08/31/18 at 13:00 Furosemide (Lasix) 40 mg DAILY IV Last administered on 09/02/18 09:04; Admin Dose 40 MG; Start 09/01/18 at 09:00 Apixaban (Eliquis) 2.5 mg BID NGT Last administered on 09/02/18 09:05; Admin Dose 2.5 MG; Start 08/31/18 at 21:00 Midazolam HCl 50 ml @ 1 mls/hr TITRATE IV Last administered on 09/01/18at 22:21; Admin Dose 5 MLS/HR; Start 09/01/18 at 11:00 Miscellaneous Information (*Rx Drug Level Order Reminder*) VANCOMYCIN TROUGH 09/02 AT 1700 1700 ONCE XX ; Start 09/02/18 at 17:00; Stop 09/02/18 at 17:01 Methylprednisolone Sodium Succinate (Solu-Medrol) 40 mg Q12 IV Last administered on 09/02/18at 09:04; Admin Dose 40 MG; Start 09/01/18 at 21:00 Meropenem/Sodium Chloride 50 ml @ 100 mls/hr Q12 IVPB Last administered on 09/02/18 09:06; Admin Dose 100 MLS/HR; Start 09/01/18 at 21:00 Miscellaneous Information 1 ea NOTE XX ; Start 09/01/18 at 15:00 Glucose (Glutose) 15 gm Q15M PRN PO DECREASED GLUCOSE; Start 09/01/18 at 15:00 Glucose (Glutose) 22.5 gm Q15M PRN PO DECREASED GLUCOSE; Start 09/01/18 at 15:00 Dextrose (D50w Syringe) 25 ml Q15M PRN IV DECREASED GLUCOSE; Start 09/01/18 at 15:00 Dextrose (D50w Syringe) 50 ml Q15M PRN IV DECREASED GLUCOSE; Start 09/01/18 at 15:00 Glucagon (Glucagen) 1 mg Q15M PRN IM DECREASED GLUCOSE; Start 09/01/18 at 15:00 Glucose (Glutose) 15 gm Q15M PRN BUCCAL DECREASED GLUCOSE; Start 09/01/18 at 15:00 Insulin Aspart (Novolog Insulin Pen) NOVOLOG *MILD* ALGORI... Q4 SC Last administered on 09/02/18at 09:21; Admin Dose 2 UNIT; Start 09/02/18 at 01:00 Allergies: Coded Allergies: No Known Allergies (Verified Allergy, Unknown, 08/29/18) Past Surgical History Past Surgical Hx: coronary bypass surgery, other (left endarartectomy carotid) Social History Alcohol Use: none Smoking Status: Current every day smoker Drug Use: none Exam/Review of Systems Exam Vitals Vital Signs Date Temp Pulse Resp B/P (MAP) Pulse Ox O2 O2 Flow FiO2 Time Delivery Rate 09/02/18 65 24 97 30 09:07 09/02/18 102/47 Mechanical 06:00 (65) Ventilator 09/02/18 98.3 04:00 08/29/18 10.0 23:10 Intake and Output 09/01/18 09/01/18 09/02/18 1515:00 23:00 07:00 IntakeIntake Total 773.0 ml 981.0 ml 775.0 ml OutputOutput Total 400 ml 305 ml 210 ml BalanceBalance 373.0 ml 676.0 ml 565.0 ml Results Result Diagram: 09/02/18 0435 09/02/18 0435 Results 24hrs Laboratory Tests Test 09/01/18 18:00 09/01/18 20:52 09/02/18 01:00 09/02/18 04:35 Bedside Glucose 237 H 171 236 H White Blood Count 20.3 #H Red Blood Count 3.16 L Hemoglobin 8.7 L Hematocrit 25.5 L Mean Corpuscular 80.7 L Volume Mean Corpuscular 27.5 L Hemoglobin Mean Corpuscular 34.1 Hemoglobin Concent Red Cell Distribution 15.1 H Width Platelet Count 455 H Mean Platelet Volume 9.3 Immature Granulocytes 1.200 H % Neutrophils % 88.8 H Lymphocytes % 3.3 L Monocytes % 6.6 Eosinophils % 0.0 Basophils % 0.1 Nucleated Red Blood 0.1 H Cells % Immature Granulocytes 0.250 H # Neutrophils # 18.0 H Lymphocytes # 0.7 L Monocytes # 1.3 H Eosinophils # 0.0 Basophils # 0.0 Nucleated Red Blood 0.0 Cells # Sodium Level 143 Potassium Level 3.6 Chloride Level 110 Carbon Dioxide Level 24 Anion Gap 9 Blood Urea Nitrogen 102 H Creatinine 2.74 H Est Glomerular Filtrat Rate mL/min Glucose Level 163 Calcium Level 8.6 Creatine Kinase 316 H Digoxin Level 1.6 Test 09/02/18 05:20 09/02/18 09:08 Bedside Glucose 167 209 Medications Medication Current Medications Diltiazem HCl (Cardizem) 30 mg Q8 PO Last administered on 08/29/18 21:47; Admin Dose 30 MG; Start 08/29/18 at 22:00; Status Hold Vancomycin HCl (Vanco Iv Per Pharmacy) VANCOMYCIN PER PHARMACY PER PROTOCOL XX ; Start 08/30/18 at 12:00 Propofol 100 ml @ 2.073 mls/ hr Q12H IV Last administered on 09/01/18 06:39; Admin Dose 8.292 MLS/HR; Start 08/30/18 at 13:00 Fentanyl 100 ml @ 2.5 mls/hr TITRATE IV Last administered on 09/01/18 11:29; Admin Dose 2.5 MLS/HR; Start 08/30/18 at 13:30 Atenolol (Tenormin) 12.5 mg BID NGT Last administered on 09/01/18 08:20; Admin Dose 12.5 MG; Start 08/30/18 at 21:00 Digoxin (Digoxin) 0.125 mg DAILY@13 NGT Last administered on 09/01/18 13:58; Admin Dose 0.125 MG; Start 08/30/18 at 13:00 Ferrous Sulfate (Feosol Liquid Cup) 300 mg DAILY NGT Last administered on 09/02/18 09:04; Admin Dose 300 MG; Start 08/31/18 at 09:00 Lansoprazole (Prevacid) 30 mg DAILY@06 NGT Last administered on 09/02/18 05:21; Admin Dose 30 MG; Start 08/31/18 at 06:00 Docusate Sodium (Colace Liquid Cup) 100 mg BID PRN NGT CONSTIPATION Last administered on 08/30/18 23:46; Admin Dose 100 MG; Start 08/30/18 at 13:30 Norepinephrine 250 ml @ 1.875 mls/ hr TITRATE IV Last administered on 09/01/18 00:39; Admin Dose 7.5 MLS/HR; Start 08/30/18 at 13:30 Vancomycin/Sodium Chloride 250 ml @ 125 mls/hr Q36H IVPB Last administered on 09/01/18 05:46; Admin Dose 125 MLS/HR; Start 09/01/18 at 06:00 Sodium Chloride 1,000 ml @ 70 mls/hr [id number] IV Last administered on 09/02/18 09:04; Admin Dose 70 MLS/HR; Start 08/31/18 at 13:00 Furosemide (Lasix) 40 mg DAILY IV Last administered on 09/02/18 09:04; Admin Dose 40 MG; Start 09/01/18 at 09:00 Apixaban (Eliquis) 2.5 mg BID NGT Last administered on 09/02/18 09:05; Admin D ose 2.5 MG; Start 08/31/18 at 21:00 Midazolam HCl 50 ml @ 1 mls/hr TITRATE IV Last administered on 09/01/18 22:21; Admin Dose 5 MLS/HR; Start 09/01/18 at 11:00 Miscellaneous Information (*Rx Drug Level Order Reminder*) VANCOMYCIN TROUGH 09/02 AT 1700 1700 ONCE XX ; Start 09/02/18 at 17:00; Stop 09/02/18 at 17:01 Methylprednisolone Sodium Succinate (Solu-Medrol) 40 mg Q12 IV Last administered on 09/02/18 09:04; Admin Dose 40 MG; Start 09/01/18 at 21:00 Meropenem/Sodium Chloride 50 ml @ 100 mls/hr Q12 IVPB Last administered on 09/02/18 09:06; Admin Dose 100 MLS/HR; Start 09/01/18 at 21:00 Miscellaneous Information 1 ea NOTE XX ; Start 09/01/18 at 15:00 Glucose (Glutose) 15 gm Q15M PRN PO DECREASED GLUCOSE; Start 09/01/18 at 15:00 Glucose (Glutose) 22.5 gm Q15M PRN PO DECREASED GLUCOSE; Start 09/01/18 at 15:00 Dextrose (D50w Syringe) 25 ml Q15M PRN IV DECREASED GLUCOSE; Start 09/01/18 at 15:00 Dextrose (D50w Syringe) 50 ml Q15M PRN IV DECREASED GLUCOSE; Start 09/01/18 at 15:00 Glucagon (Glucagen) 1 mg Q15M PRN IM DECREASED GLUCOSE; Start 09/01/18 at 15:00 Glucose (Glutose) 15 gm Q15M PRN BUCCAL DECREASED GLUCOSE; Start 09/01/18 at 15:00 Insulin Aspart (Novolog Insulin Pen) NOVOLOG *MILD* ALGORI... Q4 SC Last administered on 09/02/18at 09:21; Admin Dose 2 UNIT; Start 09/02/18 at 01:00 CHALO GUADALUPE Sep 02, 2018 10:23
--- NOTE | 2018-09-02 10:30 | CONS ---
Assessment/Plan Assessment/Plan Hospital Course (Demo Recall) IMPRESSION: 1. Atrial fibrillation with a rapid ventricular response.-now improved HR control 2. Congestive heart failure exacerbation, diastolic by most recent echo in July 2018 revealing a preserved EF of 65%, acute on chronic by history. 3. Hypertension, mildly elevated. 4. Respiratory distress. 5. Shortness of breath, likely multifactorial secondary to heart failure and chronic obstructive pulmonary disease exacerbation. 6. Probable chronic obstructive pulmonary disease exacerbation. 7. Pneumonia, right lower lobe by chest x-ray, new since discharge, question aspiration. 8. Hyponatremia. 9. Severe leukocytosis of 29.4. 10. Anemia, mild. 11. Coagulopathy, likely secondary to baseline Eliquis. 12. ARF REcc: -ICU -Continue current atenolol/digoxin -Continue eliquis -Contiknue abx's and f/u cx data -Continue steroids/bronchodilators -Follow volume status closely and consider d/c of IVF and continue daily lasix Consultation Date/Type/Reason Admit Date/Time Aug 29, 2018 at 18:56 Initial Consult Date 08/29/18 Type of Consult Cardiology Reason for Consultation Atrial fibrillation Requesting Provider: KARLEY DEAN Date/Time of Note DATE: 09/02/18 TIME: 10:24 Exam/Review of Systems Vital Signs Vitals Vital Signs Date Temp Pulse Resp B/P (MAP) Pulse Ox O2 O2 Flow FiO2 Time Delivery Rate 09/02/18 65 24 97 30 09:07 09/02/18 102/47 Mechanical 06:00 (65) Ventilator 09/02/18 98.3 04:00 08/29/18 10.0 23:10 Intake and Output 09/01/18 09/01/18 09/02/18 1414:59 22:59 06:59 IntakeIntake Total 1065.5 ml 936.0 ml 892.5 ml OutputOutput Total 400 ml 325 ml 240 ml BalanceBalance 665.5 ml 611.0 ml 652.5 ml Exam Exam Review of Systems: CONSTITUTIONAL: No fevers, chills. PULMONARY: intubated CARDIOVASCULAR: No chest pain/palpitations GASTROINTESTINAL: No nausea/vomiting. GENITOURINARY: No hematuria/dysuria. MUSCULOSKELETAL: No myagias/arthalgias. PSYCHIATRIC: The patient denies depression. NEUROLOGIC: sedated Constitutional: other (sedated) Psych: no complaints Head: normocephalic ENMT: mucosa pink and moist Neck: supple, jvd Respiratory: diminished breath sounds Cardiovascular: regular rate and rhythm Gastrointestinal: soft, non-tender Musculoskeletal: muscle tone (normal); No range of motion (9 cm water) Extremities: edema (none) 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: other (No focal deficits) Labs Result Diagram: 09/02/18 0435 09/02/18 0435 Results 24hrs Laboratory Tests Test 09/01/18 18:00 09/01/18 20:52 09/02/18 01:00 09/02/18 04:35 Bedside Glucose 237 H 171 236 H White Blood Count 20.3 #H Red Blood Count 3.16 L Hemoglobin 8.7 L Hematocrit 25.5 L Mean Corpuscular 80.7 L Volume Mean Corpuscular 27.5 L Hemoglobin Mean Corpuscular 34.1 Hemoglobin Concent Red Cell Distribution 15.1 H Width Platelet Count 455 H Mean Platelet Volume 9.3 Immature Granulocytes 1.200 H % Neutrophils % 88.8 H Lymphocytes % 3.3 L Monocytes % 6.6 Eosinophils % 0.0 Basophils % 0.1 Nucleated Red Blood 0.1 H Cells % Immature Granulocytes 0.250 H # Neutrophils # 18.0 H Lymphocytes # 0.7 L Monocytes # 1.3 H Eosinophils # 0.0 Basophils # 0.0 Nucleated Red Blood 0.0 Cells # Sodium Level 143 Potassium Level 3.6 Chloride Level 110 Carbon Dioxide Level 24 Anion Gap 9 Blood Urea Nitrogen 102 H Creatinine 2.74 H Est Glomerular Filtrat Rate mL/min Glucose Level 163 Calcium Level 8.6 Creatine Kinase 316 H Digoxin Level 1.6 Test 09/02/18 05:20 09/02/18 09:08 Bedside Glucose 167 209 Medications Medications Current Medications Diltiazem HCl (Cardizem) 30 mg Q8 PO Last administered on 08/29/18at 21:47; Admin Dose 30 MG; Start 08/29/18 at 22:00; Status Hold Vancomycin HCl (Vanco Iv Per Pharmacy) VANCOMYCIN PER PHARMACY PER PROTOCOL XX ; Start 08/30/18 at 12:00 Propofol 100 ml @ 2.073 mls/ hr Q12H IV Last administered on 09/01/18at 06:39; Admin Dose 8.292 MLS/HR; Start 08/30/18 at 13:00 Fentanyl 100 ml @ 2.5 mls/hr TITRATE IV Last administered on 09/01/18 11:29; Admin Dose 2.5 MLS/HR; Start 08/30/18 at 13:30 Atenolol (Tenormin) 12.5 mg BID NGT Last administered on 09/01/18 08:20; Admin Dose 12.5 MG; Start 08/30/18 at 21:00 Digoxin (Digoxin) 0.125 mg DAILY@13 NGT Last administered on 09/01/18 13:58; Admin Dose 0.125 MG; Start 08/30/18 at 13:00 Ferrous Sulfate (Feosol Liquid Cup) 300 mg DAILY NGT Last administered on 09/02/18 09:04; Admin Dose 300 MG; Start 08/31/18 at 09:00 Lansoprazole (Prevacid) 30 mg DAILY@06 NGT Last administered on 09/02/18 05:21; Admin Dose 30 MG; Start 08/31/18 at 06:00 Docusate Sodium (Colace Liquid Cup) 100 mg BID PRN NGT CONSTIPATION Last adm inistered on 08/30/18 23:46; Admin Dose 100 MG; Start 08/30/18 at 13:30 Norepinephrine 250 ml @ 1.875 mls/ hr TITRATE IV Last administered on 09/01/18 00:39; Admin Dose 7.5 MLS/HR; Start 08/30/18 at 13:30 Vancomycin/Sodium Chloride 250 ml @ 125 mls/hr Q36H IVPB Last administered on 09/01/18 05:46; Admin Dose 125 MLS/HR; Start 09/01/18 at 06:00 Sodium Chloride 1,000 ml @ 70 mls/hr [id number] IV Last administered on 09/02/18 09:04; Admin Dose 70 MLS/HR; Start 08/31/18 at 13:00 Furosemide (Lasix) 40 mg DAILY IV Last administered on 09/02/18 09:04; Admin Dose 40 MG; Start 09/01/18 at 09:00 Apixaban (Eliquis) 2.5 mg BID NGT Last administered on 09/02/18 09:05; Admin Dose 2.5 MG; Start 08/31/18 at 21:00 Midazolam HCl 50 ml @ 1 mls/hr TITRATE IV Last administered on 09/01/18at 22:21; Admin Dose 5 MLS/HR; Start 09/01/18 at 11:00 Miscellaneous Information (*Rx Drug Level Order Reminder*) VANCOMYCIN TROUGH 09/02 AT 1700 1700 ONCE XX ; Start 09/02/18 at 17:00; Stop 09/02/18 at 17:01 Methylprednisolone Sodium Succinate (Solu-Medrol) 40 mg Q12 IV Last administered on 09/02/18at 09:04; Admin Dose 40 MG; Start 09/01/18 at 21:00 Meropenem/Sodium Chloride 50 ml @ 100 mls/hr Q12 IVPB Last administered on 09/02/18at 09:06; Admin Dose 100 MLS/HR; Start 09/01/18 at 21:00 Miscellaneous Information 1 ea NOTE XX ; Start 09/01/18 at 15:00 Glucose (Glutose) 15 gm Q15M PRN PO DECREASED GLUCOSE; Start 09/01/18 at 15:00 Glucose (Glutose) 22.5 gm Q15M PRN PO DECREASED GLUCOSE; Start 09/01/18 at 15:0 0 Dextrose (D50w Syringe) 25 ml Q15M PRN IV DECREASED GLUCOSE; Start 09/01/18 at 15:00 Dextrose (D50w Syringe) 50 ml Q15M PRN IV DECREASED GLUCOSE; Start 09/01/18 at 15:00 Glucagon (Glucagen) 1 mg Q15M PRN IM DECREASED GLUCOSE; Start 09/01/18 at 15:00 Glucose (Glutose) 15 gm Q15M PRN BUCCAL DECREASED GLUCOSE; Start 09/01/18 at 15:00 Insulin Aspart (Novolog Insulin Pen) NOVOLOG *MILD* ALGORI... Q4 SC Last administered on 09/02/18at 09:21; Admin Dose 2 UNIT; Start 09/02/18 at 01:00 CECE LOPEZ Sep 02, 2018 10:30
--- NOTE | 2018-09-02 11:41 | PN ---
Date/Time of Note Date/Time of Note DATE: 09/02/18 TIME: 11:32 Assessment/Plan VTE Prophylaxis Risk score (from Ns)>0 risk: 11 SCD applied (from [facility]): Yes Pharmacological prophylaxis: NA/contraindicated Pharm contraindication: low risk/ambulating Lines/Catheters IV C[facility]ter Type ([facility] Central Line Central line still needed: Yes Urinary Cath still in place: Yes Reason Cath still needed: urinary retention Assessment/Plan Assessment/Plan 1 shock likley duue to. Sepsis /pneumonia 2. ALOC, lethargic.Now sedated with Propofol day off sedation 3. Atrial fibrillation, now flutter , controlled 4. Hypoxic respiratory failure. Respiratory acidosis, resolved. 5. Bilateral pneumonia 6. Congestive heart failure, EF 35 to 40%, 7. Hx of right side lung cancer 8. JAMES on chronic kidney disease, creatinine baseline 1.6. With elevated BUN and creatinine ratio likely ATN secondary to septic shock 9. Hx of pleural effusions, right and left and numerous thoracentesis 10. Bilateral pleural effusion 11. Hx of hypertension, now on BP support 12. Hyperlipidemia 13 + bacteremia however Assessment/Plan -c/w ICU care -Monitor lytes/urine output no emergent indication of hemodialysis -Decrease IV fluids. Hold Lasix for now -dec-steroids due to uremia - monitor hb 8.7 today, will start epogen -pulmonary consult dr Guajardo appreciated -Cardiology consult dr Hall -With vancomycin/meropenam, will check Vanco levels -DVT proph. Eliquiz 2.5 mg GT BID -GI proph. Protonix GT -Off pressors. -c/w tube feed Result Diagram: 09/02/18 0435 09/02/18 0435 Results 24hrs Laboratory Tests Test 09/01/18 18:00 09/01/18 20:52 09/02/18 01:00 09/02/18 04:35 Bedside Glucose 237 H 171 236 H White Blood Count 20.3 #H Red Blood Count 3.16 L Hemoglobin 8.7 L Hematocrit 25.5 L Mean Corpuscular 80.7 L Volume Mean Corpuscular 27.5 L Hemoglobin Mean Corpuscular 34.1 Hemoglobin Concent Red Cell Distribution 15.1 H Width Platelet Count 455 H Mean Platelet Volume 9.3 Immature Granulocytes 1.200 H % Neutrophils % 88.8 H Lymphocytes % 3.3 L Monocytes % 6.6 Eosinophils % 0.0 Basophils % 0.1 Nucleated Red Blood 0.1 H Cells % Immature Granulocytes 0.250 H # Neutrophils # 18.0 H Lymphocytes # 0.7 L Monocytes # 1.3 H Eosinophils # 0.0 Basophils # 0.0 Nucleated Red Blood 0.0 Cells # Sodium Level 143 Potassium Level 3.6 Chloride Level 110 Carbon Dioxide Level 24 Anion Gap 9 Blood Urea Nitrogen 102 H Creatinine 2.74 H Est Glomerular Filtrat Rate mL/min Glucose Level 163 Calcium Level 8.6 Creatine Kinase 316 H Digoxin Level 1.6 Test 09/02/18 05:20 09/02/18 09:08 Bedside Glucose 167 209 Subjective 24 Hr Interval Summary Free Text/Dictation Off pressors. Currently off sedation. Urine output 30 to 40 cc an hour Exam/Review of Systems Exam Vitals Vital Signs Date Temp Pulse Resp B/P (MAP) Pulse Ox O2 O2 Flow FiO2 Time Delivery Rate 09/02/18 70 24 96 30 11:26 09/02/18 102/47 Mechanical 06:00 (65) Ventilator 09/02/18 98.3 04:00 08/29/18 10.0 23:10 Intake and Output 09/01/18 09/01/18 09/02/18 1515:00 23:00 07:00 IntakeIntake Total 773.0 ml 981.0 ml 775.0 ml OutputOutput Total 400 ml 305 ml 210 ml BalanceBalance 373.0 ml 676.0 ml 565.0 ml Exam orally intubated, off sedation . moves extremitites Constitutional: frail Neck: supple Respiratory: diminished breath sounds Cardiovascular: regular rate and rhythm Gastrointestinal: soft Genitourinary - Male: other (yañez) Skin: ecchymosis Results Results 24hrs Laboratory Tests Test 09/01/18 18:00 09/01/18 20:52 09/02/18 01:00 09/02/18 04:35 Bedside Glucose 237 H 171 236 H White Blood Count 20.3 #H Red Blood Count 3.16 L Hemoglobin 8.7 L Hematocrit 25.5 L Mean Corpuscular 80.7 L Volume Mean Corpuscular 27.5 L Hemoglobin Mean Corpuscular 34.1 Hemoglobin Concent Red Cell Distribution 15.1 H Width Platelet Count 455 H Mean Platelet Volume 9.3 Immature Granulocytes 1.200 H % Neutrophils % 88.8 H Lymphocytes % 3.3 L Monocytes % 6.6 Eosinophils % 0.0 Basophils % 0.1 Nucleated Red Blood 0.1 H Cells % Immature Granulocytes 0.250 H # Neutrophils # 18.0 H Lymphocytes # 0.7 L Monocytes # 1.3 H Eosinophils # 0.0 Basophils # 0.0 Nucleated Red Blood 0.0 Cells # Sodium Level 143 Potassium Level 3.6 Chloride Level 110 Carbon Dioxide Level 24 Anion Gap 9 Blood Urea Nitrogen 102 H Creatinine 2.74 H Est Glomerular Filtrat Rate mL/min Glucose Level 163 Calcium Level 8.6 Creatine Kinase 316 H Digoxin Level 1.6 Test 09/02/18 05:20 09/02/18 09:08 Bedside Glucose 167 209 Medications Medication Current Medications Diltiazem HCl (Cardizem) 30 mg Q8 PO Last administered on 08/29/18 21:47; Admin Dose 30 MG; Start 08/29/18 at 22:00; Status Hold Vancomycin HCl (Vanco Iv Per Pharmacy) VANCOMYCIN PER PHARMACY PER PROTOCOL XX ; Start 08/30/18 at 12:00 Propofol 100 ml @ 2.073 mls/ hr Q12H IV Last administered on 09/01/18 06:39; Admin Dose 8.292 MLS/HR; Start 08/30/18 at 13:00 Fentanyl 100 ml @ 2.5 mls/hr TITRATE IV Last administered on 09/01/18 11:29; Admin Dose 2.5 MLS/HR; Start 08/30/18 at 13:30 Atenolol (Tenormin) 12.5 mg BID NGT Last administered on 09/01/18 08:20; Admin Dose 12.5 MG; Start 08/30/18 at 21:00 Digoxin (Digoxin) 0.125 mg DAILY@13 NGT Last administered on 09/01/18 13:58; Admin Dose 0.125 MG; Start 08/30/18 at 13:00 Ferrous Sulfate (Feosol Liquid Cup) 300 mg DAILY NGT Last administered on 09/02/18 09:04; Admin Dose 300 MG; Start 08/31/18 at 09:00 Lansoprazole (Prevacid) 30 mg DAILY@06 NGT Last administered on 09/02/18 05:21; Admin Dose 30 MG; Start 08/31/18 at 06:00 Docusate Sodium (Colace Liquid Cup) 100 mg BID PRN NGT CONSTIPATION Last ad ministered on 08/30/18at 23:46; Admin Dose 100 MG; Start 08/30/18 at 13:30 Norepinephrine 250 ml @ 1.875 mls/ hr TITRATE IV Last administered on 09/01/18at 00:39; Admin Dose 7.5 MLS/HR; Start 08/30/18 at 13:30 Vancomycin/Sodium Chloride 250 ml @ 125 mls/hr Q36H IVPB Last administered on 09/01/18at 05:46; Admin Dose 125 MLS/HR; Start 09/01/18 at 06:00 Sodium Chloride 1,000 ml @ 70 mls/hr [id number] IV Last administered on 09/02/18at 09:04; Admin Dose 70 MLS/HR; Start 08/31/18 at 13:00 Apixaban (Eliquis) 2.5 mg BID NGT Last administered on 09/02/18 09:05; Admin Dose 2.5 MG; Start 08/31/18 at 21:00 Midazolam HCl 50 ml @ 1 mls/hr TITRATE IV Last administered on 09/01/18at 22:21; Admin Dose 5 MLS/HR; Start 09/01/18 at 11:00 Miscellaneous Information (*Rx Drug Level Order Reminder*) VANCOMYCIN TROUGH 09/02 AT 1700 1700 ONCE XX ; Start 09/02/18 at 17:00; Stop 09/02/18 at 17:01 Methylprednisolone Sodium Succinate (Solu-Medrol) 40 mg Q12 IV Last administered on 09/02/18at 09:04; Admin Dose 40 MG; Start 09/01/18 at 21:00 Meropenem/Sodium Chloride 50 ml @ 100 mls/hr Q12 IVPB Last administered on at 09:06; Admin Dose 100 MLS/HR; Start 09/01/18 at 21:00 Miscellaneous Information 1 ea NOTE XX ; Start 09/01/18 at 15:00 Glucose (Glutose) 15 gm Q15M PRN PO DECREASED GLUCOSE; Start 09/01/18 at 15:00 Glucose (Glutose) 22.5 gm Q15M PRN PO DECREASED GLUCOSE; Start 09/01/18 at 15:00 Dextrose (D50w Syringe) 25 ml Q15M PRN IV DECREASED GLUCOSE; Start 09/01/18 at 15:00 Dextrose (D50w Syringe) 50 ml Q15M PRN IV DECREASED GLUCOSE; Start 09/01/18 at 15:00 Glucagon (Glucagen) 1 mg Q15M PRN IM DECREASED GLUCOSE; Start 09/01/18 at 15:00 Glucose (Glutose) 15 gm Q15M PRN BUCCAL DECREASED GLUCOSE; Start 09/01/18 at 15:00 Insulin Aspart (Novolog Insulin Pen) NOVOLOG *MILD* ALGORI... Q4 SC Last administered on 09/02/18at 09:21; Admin Dose 2 UNIT; Start 09/02/18 at 01:00 FIDEL GAVIN MD Sep 02, 2018 11:41
[2018-09-02] MEDS ORDERED: EPOETIN ALFA-EPBX (NON-ESRD) 4,000 UNIT/ML VIAL SC ONE (12:00)
[2018-09-02] MEDS: PROPOFOL 100 ML IV SCH (12:34)
[2018-09-02] MEDS: DIGOXIN 0.125 MG TAB NGT SCH (12:35)
--- NOTE | 2018-09-02 14:08 | CONS ---
Assessment/Plan Assessment/Plan Hospital Course (Demo Recall) No acute events patient remains intubated in no distress no fevers overnight WBC 20.3 H&H 8.7 and 25.5 platelets 455 neutrophils 88.8 BUN 102 creatinine 2.74 Microbiology: Blood culture growing Staph 1 out of 2 sets Chest x-ray this morning revealed stable extensive infiltrates throughout both lungs with moderate left pleural effusion and small right pleural effusion CT of the chest this morning revealed patchy bilateral pulmonary consolidation greater on the left concerning for multilobar pneumonia. Please see full report in the chart Indwelling: Endotracheal tube NG tube Bar catheter right femoral triple-lumen catheter Antimicrobials: Vancomycin and Merrem Physical examination: Chronically ill appearing wasted elderly man who is intubated sedated in no distress. Head atraumatic normocephalic neck is supple chest rise symmetrical breath sounds diminished bases heart S1-S2 abdomen soft bowel sounds hypoactive extremities without cyanosis Assessment: 1. Severe sepsis with shock 2. Acute hypoxemic respiratory failure possibly aspiration 3. Multilobar pneumonia 4. COPD 5. History of lung cancer status post radiation, details unknown 6. Atrial fibrillation status post RVR 7. Bacteremia, cw contaminant Plan: Remains unchanged, continue antibiotics steroids taper, vent management per pulmonary Consultation Date/Type/Reason Admit Date/Time Aug 29, 2018 at 18:56 Initial Consult Date Type of Consult id Requesting Provider: KARLEY DEAN MD Date/Time of Note DATE: 09/02/18 TIME: 14:06 Exam/Review of Systems Exam Vitals Vital Signs Date Temp Pulse Resp B/P (MAP) Pulse Ox O2 O2 Flow FiO2 Time Delivery Rate 09/02/18 70 24 96 30 13:06 09/02/18 98/56 (70) Mechanical 13:00 Ventilator 09/02/18 97.4 12:00 08/29/18 10.0 23:10 Intake and Output 09/01/18 09/01/18 09/02/18 1515:00 23:00 07:00 IntakeIntake Total 773.0 ml 981.0 ml 822.5 ml OutputOutput Total 400 ml 305 ml 270 ml BalanceBalance 373.0 ml 676.0 ml 552.5 ml Results Result Diagram: 09/02/18 0435 09/02/18 0435 Results 24hrs Laboratory Tests Test 09/01/18 18:00 09/01/18 20:52 09/02/18 01:00 09/02/18 04:35 Bedside Glucose 237 H 171 236 H White Blood Count 20.3 #H Red Blood Count 3.16 L Hemoglobin 8.7 L Hematocrit 25.5 L Mean Corpuscular 80.7 L Volume Mean Corpuscular 27.5 L Hemoglobin Mean Corpuscular 34.1 Hemoglobin Concent Red Cell Distribution 15.1 H Width Platelet Count 455 H Mean Platelet Volume 9.3 Immature Granulocytes 1.200 H % Neutrophils % 88.8 H Lymphocytes % 3.3 L Monocytes % 6.6 Eosinophils % 0.0 Basophils % 0.1 Nucleated Red Blood 0.1 H Cells % Immature Granulocytes 0.250 H # Neutrophils # 18.0 H Lymphocytes # 0.7 L Monocytes # 1.3 H Eosinophils # 0.0 Basophils # 0.0 Nucleated Red Blood 0.0 Cells # Sodium Level 143 Potassium Level 3.6 Chloride Level 110 Carbon Dioxide Level 24 Anion Gap 9 Blood Urea Nitrogen 102 H Creatinine 2.74 H Est Glomerular Filtrat Rate mL/min Glucose Level 163 Calcium Level 8.6 Creatine Kinase 316 H Digoxin Level 1.6 Test 09/02/18 05:20 09/02/18 09:08 09/02/18 12:37 Bedside Glucose 167 209 222 H Medications Medication Current Medications Diltiazem HCl (Cardizem) 30 mg Q8 PO Last administered on 08/29/18at 21:47; Admin Dose 30 MG; Start 08/29/18 at 22:00; Status Hold Vancomycin HCl (Vanco Iv Per Pharmacy) VANCOMYCIN PER PHARMACY PER PROTOCOL XX ; Start 08/30/18 at 12:00 Propofol 100 ml @ 2.073 mls/ hr Q12H IV Last administered on 09/01/18at 06:39; Admin Dose 8.292 MLS/HR; Start 08/30/18 at 13:00 Fentanyl 100 ml @ 2.5 mls/hr TITRATE IV Last administered on 09/01/18at 11:29; Admin Dose 2.5 MLS/HR; Start 08/30/18 at 13:30 Atenolol (Tenormin) 12.5 mg BID NGT Last administered on 09/01/18at 08:20; Admin Dose 12.5 MG; Start 08/30/18 at 21:00 Digoxin (Digoxin) 0.125 mg DAILY@13 NGT Last administered on 09/02/18at 12:35; Admin Dose 0.125 MG; Start 08/30/18 at 13:00 Ferrous Sulfate (Feosol Liquid Cup) 300 mg DAILY NGT Last administered on 09/02/18 09:04; Admin Dose 300 MG; Start 08/31/18 at 09:00 Lansoprazole (Prevacid) 30 mg DAILY@06 NGT Last administered on 09/02/18 05:21; Admin Dose 30 MG; Start 08/31/18 at 06:00 Docusate Sodium (Colace Liquid Cup) 100 mg BID PRN NGT CONSTIPATION Last administered on 08/30/18 23:46; Admin Dose 100 MG; Start 08/30/18 at 13:30 Norepinephrine 250 ml @ 1.875 mls/ hr TITRATE IV Last administered on 09/01/18at 00:39; Admin Dose 7.5 MLS/HR; Start 08/30/18 at 13:30 Vancomycin/Sodium Chloride 250 ml @ 125 mls/hr Q36H IVPB Last administered on 09/01/18 05:46; Admin Dose 125 MLS/HR; Start 09/01/18 at 06:00 Sodium Chloride 1,000 ml @ 50 mls/hr Q20H IV Last administered on 09/02/18 09:04; Admin Dose 70 MLS/HR; Start 08/31/18 at 13:00 Apixaban (Eliquis) 2.5 mg BID NGT Last administered on 09/02/18 09:05; Admin Dose 2.5 MG; Start 08/31/18 at 21:00 Midazolam HCl 50 ml @ 1 mls/hr TITRATE IV Last administered on 09/01/18at 22:21; Admin Dose 5 MLS/HR; Start 09/01/18 at 11:00 Miscellaneous Information (*Rx Drug Level Order Reminder*) VANCOMYCIN TROUGH 09/02 AT 1700 1700 ONCE XX ; Start 09/02/18 at 17:00; Stop 09/02/18 at 17:01 Meropenem/Sodium Chloride 50 ml @ 100 mls/hr Q12 IVPB Last administered on 09/02/18 09:06; Admin Dose 100 MLS/HR; Start 09/01/18 at 21:00 Miscellaneous Information 1 ea NOTE XX ; Start 09/01/18 at 15:00 Glucose (Glutose) 15 gm Q15M PRN PO DECREASED GLUCOSE; Start 09/01/18 at 15:00 Glucose (Glutose) 22.5 gm Q15M PRN PO DECREASED GLUCOSE; Start 09/01/18 at 15:00 Dextrose (D50w Syringe) 25 ml Q15M PRN IV DECREASED GLUCOSE; Start 09/01/18 at 15:00 Dextrose (D50w Syringe) 50 ml Q15M PRN IV DECREASED GLUCOSE; Start 09/01/18 at 15:00 Glucagon (Glucagen) 1 mg Q15M PRN IM DECREASED GLUCOSE; Start 09/01/18 at 15:00 Glucose (Glutose) 15 gm Q15M PRN BUCCAL DECREASED GLUCOSE; Start 09/01/18 at 15:00 Insulin Aspart (Novolog Insulin Pen) NOVOLOG *MILD* ALGORI... Q4 SC Last administered on 09/02/18at 12:40; Admin Dose 3 UNIT; Start 09/02/18 at 01:00 Methylprednisolone Sodium Succinate (Solu-Medrol) 40 mg DAILY IV ; Start 09/03/18 at 09:00 SUZANNE DANIELS NP Sep 02, 2018 14:08
[2018-09-02] MEDS: MIDAZOLAM (DRIP) 50 mg/50 mL 50 ML IV SCH ×2 (16:11→21:02)
[2018-09-02] MEDS: VANCOMYCIN 750 MG (PMX) 250 ML IVPB SCH (17:17)
[2018-09-02] MEDS: FENTAnyl (DRIP) 1000 mcg/100mL 100 ML IV SCH (21:06)
[2018-09-03] VITALS (36 sets, daily range): BP systolic 77–143; BP diastolic 35–62; PULSE 48–82; RESP 17–26
[2018-09-03] MEDS: PROPOFOL 100 ML IV SCH (01:00)
[2018-09-03] MEDS: INSULIN ASPART [NOVOLOG] 3 ML PEN SC SCH ×6 (01:06→21:57)
[2018-09-03] MEDS: LANSOPRAZOLE 30 MG CAP NGT SCH (05:48)
[2018-09-03] MEDS: SOD CHLORIDE 0.9% 1,000 ML IV SCH (06:00)
[2018-09-03] MEDS: METHYLPREDNISOLONE 40 MG INJ IV SCH (08:26)
[2018-09-03] MEDS: FERROUS SULFATE 60 MG/ML 5ML CUP NGT SCH (08:26)
[2018-09-03] MEDS: MEROPENEM 500MG/50 ML (PMX) 50 ML IVPB SCH ×2 (08:26→21:54)
[2018-09-03] MEDS: APIXABAN 5 MG TABLET NGT SCH ×2 (08:27→21:55)
[2018-09-03] MEDS: ATENOLOL 25 MG TAB NGT SCH ×2 (08:27→21:56)
--- NOTE | 2018-09-03 08:44 | CONS ---
Consult Date/Type/Reason Admit Date/Time Aug 29, 2018 at 18:56 Initial Consult Date Requesting Provider: KARLEY DEAN MD Date/Time of Note DATE: 09/03/18 TIME: 08:41 Subjective NO acute events - pt comfortable - no CP now - con't pulm support - in a. fib - rate controlled now. ROS: No fever, no chills, no nausea, no vomiting, no diarrhea/constipation - per nurse, pt not communicating + SOB Objective Vitals Vital Signs Date Temp Pulse Resp B/P (MAP) Pulse Ox O2 O2 Flow FiO2 Time Delivery Rate 09/03/18 62 24 118/39 100 Mechanical 06:00 (65) Ventilator 09/03/18 30 05:09 09/03/18 97.0 04:00 Intake and Output 09/02/18 09/02/18 09/03/18 1515:00 23:00 07:00 IntakeIntake Total 947.5 ml 1238.0 ml 657.0 ml OutputOutput Total 730 ml 620 ml 420 ml BalanceBalance 217.5 ml 618.0 ml 237.0 ml Exam General: WN/WD/NAD, AOx 0 HEENT: Unicetric/atraumatic/EOMI (does not follow commands) - intubated NECK: JVD elevated, no thyromegaly Lymph: no lymphadenopathy HEART: Ir Irregular with no S3, II/ systolic murmur at apex LUNGS: Coarse sounds ABD: soft, NT, ND, +BS : Intact Neuro: non focal SKIN: chronic changes EXT: trace edema Results/Medications Result Diagram: 09/03/18 0433 09/03/18 0420 Results 24 hrs Laboratory Tests Test 09/02/18 09:08 09/02/18 12:37 09/02/18 17:08 09/02/18 17:25 Bedside Glucose 209 222 H 198 Vancomycin Level 13.7 Trough Test 09/02/18 20:53 09/03/18 01:03 09/03/18 04:20 09/03/18 04:33 Bedside Glucose 195 225 H Sodium Level 144 Potassium Level 3.3 L Chloride Level 111 H Carbon Dioxide 23 Level Anion Gap 10 Blood Urea 117 H Nitrogen Creatinine 2.40 H Est Glomerular Filtrat Rate mL/min Glucose Level 185 Calcium Level 8.7 Phosphorus Level 2.9 Magnesium Level 2.4 White Blood Count 16.4 H Red Blood Count 3.03 L Hemoglobin 8.3 L Hematocrit 24.9 L Mean Corpuscular 82.2 Volume Mean Corpuscular 27.4 L Hemoglobin Mean Corpuscular 33.3 Hemoglobin Concent Red Cell 15.0 H Distribution Width Platelet Count 389 Mean Platelet 9.3 Volume Immature 3.300 H Granulocytes % Neutrophils % 83.5 H Lymphocytes % 4.2 L Monocytes % 8.8 Eosinophils % 0.0 Basophils % 0.2 Nucleated Red 0.0 Blood Cells % Immature 0.550 H Granulocytes # Neutrophils # 13.7 H Lymphocytes # 0.7 L Monocytes # 1.4 H Eosinophils # 0.0 Basophils # 0.0 Nucleated Red 0.0 Blood Cells # Test 09/03/18 05:18 09/03/18 07:00 Bedside Glucose 169 Blood Gas Specimen Blood arterial Source Arterial Blood 09/03/2018 7:23:22 Date Drawn AM Arterial Blood pH 7.471 H (Temp corrected) Arterial Blood 28.4 L pCO2 (Temp correct) Arterial Blood pO2 101.4 H (Temp corrected) Arterial Blood 20.3 L HCO3 Arterial Blood -2.5 Base Excess Arterial Blood 97.4 Oxygen Saturation Harshad Test ACCEPTAB Arterial Blood Gas Right Radial Puncture Site Arterial 0.3 Blood Carboxyhemog lobin Arterial Blood 0.3 Methemoglobin Blood Gas A-a O2 79.1 H Differential Oxyhemoglobin 96.8 Percent Blood Gas 37.0 Temperature Blood Gas 24.0 Respiration Rate Blood Gas Actual 24 Respiration Rate Blood Gas Modality VENT - AC FiO2 30.0 Blood Gas Tidal 550.0 Volume Blood Gas Notified TM Whom Blood Gas Notified 09/03/2018 7:51:25 Time AM Home Meds Reported Medications Mupirocin Calcium* (Mupirocin*) 2% - 15 Gram Cream..g., 1 APPLIC TOP BID, #1 TUB 08/29/18 Ondansetron Hcl* (Zofran*) 4 Mg Tab, 4 MG PO Q6H PRN for NAUSEA AND OR VOMITING, TAB 08/29/18 Ipratropium-Albuterol (Ipratropium-Albuterol) 0.5-3 Mg/3 Ml Ampul.neb, 3 ML INHALATION Q6 PRN for WHEEZING AND SOB, #30 VIAL 08/29/18 Ferrous Sulfate* (Ferrous Sulfate*) 325 Mg Tabec, 325 MG PO DAILY, TAB 08/29/18 Apixaban* (Eliquis*) 5 Mg Tablet, 5 MG PO BID, TAB 08/29/18 Docusate Sodium* (Colace*) 100 Mg Capsule, 100 MG PO BID, #60 CAP 08/29/18 Bisacodyl* (Bisacodyl*) 5 Mg Tablet.dr, 10 MG PO BID PRN for CONSTIPATION, TAB 08/29/18 Tuberculin,Purif.prot.deriv. (Aplisol) 5 Tub Unit/0.1 Ml Vial, 5 TUB ID ONCE, VIAL START DATE 08/31/18 -- END DATE 09/01/18 08/29/18 Acetaminophen* (Acetaminophen*) 650 Mg Tablet, 650 MG PO Q6H PRN for PAIN LEVEL 1-12/12, #30 TAB AND FEVER>101F 08/29/18 Guaifenesin (Guaifenesin) 100 Mg/5 Ml Liquid, 10 ML PO NEEDED PRN for COUGH, ML 08/13/18 Diltiazem Hcl* (Cardizem*) 30 Mg Tablet, 30 MG PO Q8 for CHF, #90 TAB HOLD IF SBP<110 OR HR<60 08/13/18 Aspirin* (Aspirin* EC) 81 Mg Tablet.dr, 81 MG PO DAILY, TAB 08/13/18 Digoxin* (Digitek*) 125 Mcg Tablet, 0.125 MG PO DAILY, TAB HOLD IF SBP<110 OR HR<60 08/13/18 Atenolol* (Atenolol*) 25 Mg Tablet, 12.5 MG PO BID, #60 TAB HOLD IF SBP<110 OR HR<60 08/13/18 Furosemide* (Furosemide*) 40 Mg Tablet, 40 MG PO DAILY, TAB HOLD IF SBP<110 OR HR<60 08/13/18 Magnesium Hydroxide* (Milk Of Magnesia*) 400 Mg/5 Ml Oral.susp, 30 ML PO DAILY, ML 08/13/18 Potassium Chloride* (Klor-Con*) 20 Meq Tabsr, 20 MEQ PO DAILY, TAB.SA 07/11/18 Pantoprazole* (Pantoprazole*) 40 Mg Tablet.dr, 40 MG PO DAILY, TAB 07/11/18 Discontinued Reported Medications Albuterol Sulfate* (Proair HFA*) 8.5 Gm Hfa.aer.ad, 2 PUFF INH Q6H PRN for WHEEZING AND SOB, #1 INHALER 08/13/18 Hydrocortisone* Topical (Hydrocortisone* Topical) 2.5%-28.3 Gm Cream..g., 1 APPLIC TOP BID PRN for ITCHING, TUB 08/13/18 Acetaminophen* (Acetaminophen*) 500 MG Extra Strength Tablet, 500 MG PO Q6H PRN for PAIN AND OR ELEVATED TEMP, TAB 08/13/18 Dabigatran Etexilate Mesylate* (Pradaxa*) 75 Mg Cap, 75 MG PO BID, CAP 07/11/18 Discontinued Scripts Ipratropium-Albuterol (Ipratropium-Albuterol) 0.5-3 Mg/3 Ml Ampul.neb, 3 ML HHN Q4H RESP THERAPY for 30 Days Prov:JASPER SAHU 07/19/18 Medications Current Medications Diltiazem HCl (Cardizem) 30 mg Q8 PO Last administered on 08/29/18at 21:47; Admin Dose 30 MG; Start 08/29/18 at 22:00; Status Hold Vancomycin HCl (Vanco Iv Per Pharmacy) VANCOMYCIN PER PHARMACY PER PROTOCOL XX ; Start 08/30/18 at 12:00 Propofol 100 ml @ 2.073 mls/ hr Q12H IV Last administered on 09/01/18at 06:39; Admin Dose 8.292 MLS/HR; Start 08/30/18 at 13:00 Fentanyl 100 ml @ 2.5 mls/hr TITRATE IV Last administered on 09/02/18at 21:06; Admin Dose 5 MLS/HR; Start 08/30/18 at 13:30 Atenolol (Tenormin) 12.5 mg BID NGT Last administered on 09/01/18at 08:20; Admin Dose 12.5 MG; Start 08/30/18 at 21:00 Digoxin (Digoxin) 0.125 mg DAILY@13 NGT Last administered on 09/02/18at 12:35; Admin Dose 0.125 MG; Start 08/30/18 at 13:00 Ferrous Sulfate (Feosol Liquid Cup) 300 mg DAILY NGT Last administered on 09/02/18at 09:04; Admin Dose 300 MG; Start 08/31/18 at 09:00 Lansoprazole (Prevacid) 30 mg DAILY@06 NGT Last administered on 09/03/18at 05:48; Admin Dose 30 MG; Start 08/31/18 at 06:00 Docusate Sodium (Colace Liquid Cup) 100 mg BID PRN NGT CONSTIPATION Last administered on 08/30/18at 23:46; Admin Dose 100 MG; Start 08/30/18 at 13:30 Norepinephrine 250 ml @ 1.875 mls/ hr TITRATE IV Last administered on 09/01/18at 00:39; Admin Dose 7.5 MLS/HR; Start 08/30/18 at 13:30 Vancomycin/Sodium Chloride 250 ml @ 125 mls/hr Q36H IVPB Last administered on 09/02/18at 17:17; Admin Dose 125 MLS/HR; Start 09/01/18 at 06:00 Sodium Chloride 1,000 ml @ 50 mls/hr Q20H IV Last administered on 09/03/18at 06:00; Admin Dose 50 MLS/HR; Start 08/31/18 at 13:00 Apixaban (Eliquis) 2.5 mg BID NGT Last administered on 09/02/18at 20:54; Admin Dose 2.5 MG; Start 08/31/18 at 21:00 Midazolam HCl 50 ml @ 1 mls/hr TITRATE IV Last administered on 09/02/18at 21:02; Admin Dose 5 MLS/HR; Start 09/01/18 at 11:00 Meropenem/Sodium Chloride 50 ml @ 100 mls/hr Q12 IVPB Last administered on 09/02/18at 20:54; Admin Dose 100 MLS/HR; Start 09/01/18 at 21:00 Miscellaneous Information 1 ea NOTE XX ; Start 09/01/18 at 15:00 Glucose (Glutose) 15 gm Q15M PRN PO DECREASED GLUCOSE; Start 09/01/18 at 15:00 Glucose (Glutose) 22.5 gm Q15M PRN PO DECREASED GLUCOSE; Start 09/01/18 at 15:00 Dextrose (D50w Syringe) 25 ml Q15M PRN IV DECREASED GLUCOSE; Start 09/01/18 at 15:00 Dextrose (D50w Syringe) 50 ml Q15M PRN IV DECREASED GLUCOSE; Start 09/01/18 at 15:00 Glucagon (Glucagen) 1 mg Q15M PRN IM DECREASED GLUCOSE; Start 09/01/18 at 15:00 Glucose (Glutose) 15 gm Q15M PRN BUCCAL DECREASED GLUCOSE; Start 09/01/18 at 1 5:00 Insulin Aspart (Novolog Insulin Pen) NOVOLOG *MILD* ALGORI... Q4 SC Last administered on 09/03/18at 05:23; Admin Dose 1 UNIT; Start 09/02/18 at 01:00 Methylprednisolone Sodium Succinate (Solu-Medrol) 40 mg DAILY IV ; Start 09/03/18 at 09:00 Assessment/Plan Hospital Course (Demo Recall) 1. Atrial fibrillation with a rapid ventricular response - rate controlled - will monitor to ICU. D/C dilt gtt now with low BP. Rate controlled off dilt gtt now. Rate controlled. 2. Congestive heart failure exacerbation, diastolic by most recent echo in July 2018 revealing a preserved EF of 65%, acute on chronic by history. Not in CHF by exam. Keep euvolemic. 3. Hypertension, mildly elevated - well Rx now. Supportive Rx now. BETTER now. 4. Respiratory distress - transfer to ICU - con't pulm care per pulmonary team. 5. Shortness of breath, likely multifactorial secondary to heart failure and chronic obstructive pulmonary disease exacerbation - now intubated, better overall. 6. Probable chronic obstructive pulmonary disease exacerbation. 7. Pneumonia, right lower lobe by chest x-ray, new since discharge, question aspiration. Con;t anti-Bx On meds - high secretions. 8. Hyponatremia. 9. Severe leukocytosis - better now, on anti-Bx, ID follows. 10. Anemia, mild - decrease dose Eliquis to 2.4 Cr. EMILY SANTAMARIA MD Sep 03, 2018 08:44
[2018-09-03] MEDS ORDERED: ALBUTEROL HFA 8 GM INHALER INH PRN (09:30)
[2018-09-03] MEDS ORDERED: POTASSIUM CHLORIDE 100 ML IVPB ONE (11:00)
--- NOTE | 2018-09-03 11:16 | PN ---
Date/Time of Note Date/Time of Note DATE: 09/03/18 TIME: 11:08 Assessment/Plan VTE Prophylaxis Risk score (from Ns)>0 risk: 13 SCD applied (from Ns): Yes Pharmacological prophylaxis: NA/contraindicated Pharm contraindication: low risk/ambulating Lines/Catheters IV Catheter Type (from [facility]): Central Line Central line still needed: Yes Urinary Cath still in place: Yes Reason Cath still needed: urinary retention Assessment/Plan Assessment/Plan Assessment/Plan 1 shock likley duue to. Sepsis /pneumonia 2. ALOC, lethargic.Now sedated follows commands off sedation 3. Atrial fibrillation, now flutter , controlled 4. Hypoxic respiratory failure. Respiratory acidosis, resolved. 5. Bilateral pneumonia 6. Congestive heart failure, EF 35 to 40%, 7. Hx of right side lung cancer 8. JAMES on chronic kidney disease, creatinine baseline 1.6. With elevated BUN and creatinine ratio likely ATN secondary to septic shock now Cr downtrending however BUN still high 9. Hx of pleural effusions, right and left and numerous thoracentesis 10. Bilateral pleural effusion 11. Hx of hypertension, now on BP support 12. Hyperlipidemia 13 + bacteremia however new bld cx neg Assessment/Plan -c/w ICU care -Monitor lytes/urine output no emergent indication of hemodialysis, cr downtrending - keep euvomlic, gentle lasix today, hold of fluids - ? thoracentesis - replete K -dec-steroids due to uremia - Hb 8.3 today -pulmonary consult dr Guajardo appreciated -Cardiology consult dr Hall -With vancomycin/meropenam, will check Vanco levels therpaeutic -DVT proph. Eliquiz 2.5 mg GT BID -GI proph. Protonix GT -Off pressors. -c/w tube feed Result Diagram: 09/03/18 0433 09/03/18 0420 Results 24hrs Laboratory Tests Test 09/02/18 12:37 09/02/18 17:08 09/02/18 17:25 09/02/18 20:53 Bedside Glucose 222 H 198 195 Vancomycin Level 13.7 Trough Test 09/03/18 01:03 09/03/18 04:20 09/03/18 04:33 09/03/18 05:18 Bedside Glucose 225 H 169 Sodium Level 144 Potassium Level 3.3 L Chloride Level 111 H Carbon Dioxide 23 Level Anion Gap 10 Blood Urea 117 H Nitrogen Creatinine 2.40 H Est Glomerular Filtrat Rate mL/min Glucose Level 185 Calcium Level 8.7 Phosphorus Level 2.9 Magnesium Level 2.4 White Blood Count 16.4 H Red Blood Count 3.03 L Hemoglobin 8.3 L Hematocrit 24.9 L Mean Corpuscular 82.2 Volume Mean Corpuscular 27.4 L Hemoglobin Mean Corpuscular 33.3 Hemoglobin Concent Red Cell 15.0 H Distribution Width Platelet Count 389 Mean Platelet 9.3 Volume Immature 3.300 H Granulocytes % Neutrophils % 83.5 H Lymphocytes % 4.2 L Monocytes % 8.8 Eosinophils % 0.0 Basophils % 0.2 Nucleated Red 0.0 Blood Cells % Immature 0.550 H Granulocytes # Neutrophils # 13.7 H Lymphocytes # 0.7 L Monocytes # 1.4 H Eosinophils # 0.0 Basophils # 0.0 Nucleated Red 0.0 Blood Cells # Test 09/03/18 07:00 09/03/18 08:36 Blood Gas Specimen Blood arterial Source Arterial Blood 09/03/2018 7:23:22 Date Drawn AM Arterial Blood pH 7.471 H (Temp corrected) Arterial Blood 28.4 L pCO2 (Temp correct) Arterial Blood pO2 101.4 H (Temp corrected) Arterial Blood 20.3 L HCO3 Arterial Blood -2.5 Base Excess Arterial Blood 97.4 Oxygen Saturation Harshad Test ACCEPTAB Arterial Blood Gas Right Radial Puncture Site Arterial 0.3 Blood Carboxyhemog lobin Arterial Blood 0.3 Methemoglobin Blood Gas A-a O2 79.1 H Differential Oxyhemoglobin 96.8 Percent Blood Gas 37.0 Temperature Blood Gas 24.0 Respiration Rate Blood Gas Actual 24 Respiration Rate Blood Gas Modality VENT - AC FiO2 30.0 Blood Gas Tidal 550.0 Volume Blood Gas Notified TM Whom Blood Gas Notified 09/03/2018 7:51:25 Time AM Bedside Glucose 195 Subjective 24 Hr Interval Summary Free Text/Dictation UOP 40-50 cc/hr Follows commands when off sedation Chest XRAY Pleural effusion left>rt Exam/Review of Systems Exam Vitals Vital Signs Date Temp Pulse Resp B/P (MAP) Pulse Ox O2 O2 Flow FiO2 Time Delivery Rate 09/03/18 30 08:00 09/03/18 72 08:00 09/03/18 24 118/39 100 Mechanical 06:00 (65) Ventilator 09/03/18 97.0 04:00 Intake and Output 09/02/18 09/02/18 09/03/18 1515:00 23:00 07:00 IntakeIntake Total 947.5 ml 1238.0 ml 657.0 ml OutputOutput Total 730 ml 620 ml 420 ml BalanceBalance 217.5 ml 618.0 ml 237.0 ml Exam orally intubated, . moves extremitites when off sedation Constitutional: frail Neck: supple Respiratory: diminished breath sounds Cardiovascular: regular rate and rhythm Gastrointestinal: soft Genitourinary - Male: other (yañez) Skin: ecchymosis Results Results 24hrs Laboratory Tests Test 09/02/18 12:37 09/02/18 17:08 09/02/18 17:25 09/02/18 20:53 Bedside Glucose 222 H 198 195 Vancomycin Level 13.7 Trough Test 09/03/18 01:03 09/03/18 04:20 09/03/18 04:33 09/03/18 05:18 Bedside Glucose 225 H 169 Sodium Level 144 Potassium Level 3.3 L Chloride Level 111 H Carbon Dioxide 23 Level Anion Gap 10 Blood Urea 117 H Nitrogen Creatinine 2.40 H Est Glomerular Filtrat Rate mL/min Glucose Level 185 Calcium Level 8.7 Phosphorus Level 2.9 Magnesium Level 2.4 White Blood Count 16.4 H Red Blood Count 3.03 L Hemoglobin 8.3 L Hematocrit 24.9 L Mean Corpuscular 82.2 Volume Mean Corpuscular 27.4 L Hemoglobin Mean Corpuscular 33.3 Hemoglobin Concent Red Cell 15.0 H Distribution Width Platelet Count 389 Mean Platelet 9.3 Volume Immature 3.300 H Granulocytes % Neutrophils % 83.5 H Lymphocytes % 4.2 L Monocytes % 8.8 Eosinophils % 0.0 Basophils % 0.2 Nucleated Red 0.0 Blood Cells % Immature 0.550 H Granulocytes # Neutrophils # 13.7 H Lymphocytes # 0.7 L Monocytes # 1.4 H Eosinophils # 0.0 Basophils # 0.0 Nucleated Red 0.0 Blood Cells # Test 09/03/18 07:00 09/03/18 08:36 Blood Gas Specimen Blood arterial Source Arterial Blood 09/03/2018 7:23:22 Date Drawn AM Arterial Blood pH 7.471 H (Temp corrected) Arterial Blood 28.4 L pCO2 (Temp correct) Arterial Blood pO2 101.4 H (Temp corrected) Arterial Blood 20.3 L HCO3 Arterial Blood -2.5 Base Excess Arterial Blood 97.4 Oxygen Saturation Harshad Test ACCEPTAB Arterial Blood Gas Right Radial Puncture Site Arterial 0.3 Blood Carboxyhemog lobin Arterial Blood 0.3 Methemoglobin Blood Gas A-a O2 79.1 H Differential Oxyhemoglobin 96.8 Percent Blood Gas 37.0 Temperature Blood Gas 24.0 Respiration Rate Blood Gas Actual 24 Respiration Rate Blood Gas Modality VENT - AC FiO2 30.0 Blood Gas Tidal 550.0 Volume Blood Gas Notified TM Whom Blood Gas Notified 09/03/2018 7:51:25 Time AM Bedside Glucose 195 Medications Medication Current Medications Diltiazem HCl (Cardizem) 30 mg Q8 PO Last administered on 08/29/18 21:47; Admin Dose 30 MG; Start 08/29/18 at 22:00; Status Hold Vancomycin HCl (Vanco Iv Per Pharmacy) VANCOMYCIN PER PHARMACY PER PROTOCOL XX ; Start 08/30/18 at 12:00 Fentanyl 100 ml @ 2.5 mls/hr TITRATE IV Last administered on 09/02/18 21:06; Admin Dose 5 MLS/HR; Start 08/30/18 at 13:30 Atenolol (Tenormin) 12.5 mg BID NGT Last administered on 09/03/18 08:27; Admin Dose 12.5 MG; Start 08/30/18 at 21:00 Digoxin (Digoxin) 0.125 mg DAILY@13 NGT Last administered on 09/02/18 12:35; Admin Dose 0.125 MG; Start 08/30/18 at 13:00 Ferrous Sulfate (Feosol Liquid Cup) 300 mg DAILY NGT Last administered on 09/03/18 08:26; Admin Dose 300 MG; Start 08/31/18 at 09:00 Lansoprazole (Prevacid) 30 mg DAILY@06 NGT Last administered on 09/03/18 05:48; Admin Dose 30 MG; Start 08/31/18 at 06:00 Docusate Sodium (Colace Liquid Cup) 100 mg BID PRN NGT CONSTIPATION Last administered on 08/30/18 23:46; Admin Dose 100 MG; Start 08/30/18 at 13:30 Vancomycin/Sodium Chloride 250 ml @ 125 mls/hr Q36H IVPB Last administered on 09/02/18at 17:17; Admin Dose 125 MLS/HR; Start 09/01/18 at 06:00 Sodium Chloride 1,000 ml @ 50 mls/hr Q20H IV Last administered on 09/03/18at 06:00; Admin Dose 50 MLS/HR; Start 08/31/18 at 13:00 Apixaban (Eliquis) 2.5 mg BID NGT Last administered on 09/03/18at 08:27; Admin Dose 2.5 MG; Start 08/31/18 at 21:00 Midazolam HCl 50 ml @ 1 mls/hr TITRATE IV Last administered on 09/02/18at 21:02; Admin Dose 5 MLS/HR; Start 09/01/18 at 11:00 Meropenem/Sodium Chloride 50 ml @ 100 mls/hr Q12 IVPB Last administered on 09/03/18 08:26; Admin Dose 100 MLS/HR; Start 09/01/18 at 21:00 Miscellaneous Information 1 ea NOTE XX ; Start 09/01/18 at 15:00 Glucose (Glutose) 15 gm Q15M PRN PO DECREASED GLUCOSE; Start 09/01/18 at 15:00 Glucose (Glutose) 22.5 gm Q15M PRN PO DECREASED GLUCOSE; Start 09/01/18 at 15:00 Dextrose (D50w Syringe) 25 ml Q15M PRN IV DECREASED GLUCOSE; Start 09/01/18 at 15:00 Dextrose (D50w Syringe) 50 ml Q15M PRN IV DECREASED GLUCOSE; Start 09/01/18 at 15:00 Glucagon (Glucagen) 1 mg Q15M PRN IM DECREASED GLUCOSE; Start 09/01/18 at 15:00 Glucose (Glutose) 15 gm Q15M PRN BUCCAL DECREASED GLUCOSE; Start 09/01/18 at 15:00 Insulin Aspart (Novolog Insulin Pen) NOVOLOG *MILD* ALGORI... Q4 SC Last administered on 09/03/18at 08:37; Admin Dose 2 UNIT; Start 09/02/18 at 01:00 Methylprednisolone Sodium Succinate (Solu-Medrol) 40 mg DAILY IV Last a dministered on 09/03/18at 08:26; Admin Dose 40 MG; Start 09/03/18 at 09:00 Albuterol (Ventolin Hfa) 2 puff Q6H RESP THERAPY INH ; Start 09/03/18 at 14:00 Ipratropium [place] (Atrovent Hfa) 2 puff Q6HWA RESP THERAPY INH ; Start 09/03/18 at 14:00 Ipratropium [place] (Atrovent Hfa) 2 puff Q6H RESP THERAPY PRN INH SHORTNESS OF BREATH; Start 09/03/18 at 09:30 Albuterol (Ventolin Hfa) 2 puff Q6H RESP THERAPY PRN INH SHORTNESS OF BREATH; Start 09/03/18 at 09:30 Potassium Chloride 100 ml @ 50 mls/hr ONCE ONCE IVPB ; Start 09/03/18 at 11:00; Stop 09/03/18 at 12:59 FIDEL GAVIN MD Sep 03, 2018 11:16
[2018-09-03] MEDS ORDERED: FUROSEMIDE 20 MG INJ IV ONE (11:30)
[2018-09-03] MEDS: DIGOXIN 0.125 MG TAB NGT SCH (12:59)
--- NOTE | 2018-09-03 13:10 | CONS ---
Assessment/Plan Assessment/Plan Hospital Course (Demo Recall) No acute changes patient remains intubated in no distress afebrile WBC today 16.4 neutrophils 83.5 BUN 117 creatinine 2.40 Microbiology: Blood culture growing Staph 1 out of 2 sets Chest x-ray this morning revealed stable extensive infiltrates throughout both lungs with moderate left pleural effusion and small right pleural effusion CT of the chest revealed patchy bilateral pulmonary consolidation greater on the left concerning for multilobar pneumonia. Please see full report in the [facility] Indwelling: Endotracheal tube NG tube Bar catheter right femoral triple-lumen catheter Antimicrobials: Vancomycin and Merrem Physical examination: Chronically ill appearing wasted elderly man who is intubated sedated in no distress. Head atraumatic normocephalic neck is supple chest rise symmetrical breath sounds diminished bases heart S1-S2 abdomen soft bowel sounds hypoactive extremities without cyanosis Assessment: 1. Severe sepsis with shock 2. Acute hypoxemic respiratory failure possibly aspiration 3. Multilobar pneumonia 4. COPD 5. History of lung cancer status post radiation, details unknown 6. Atrial fibrillation status post RVR 7. Bacteremia, cw contaminant Plan: Remains unchanged, continue antibiotics steroids taper, vent management per pulmonary Consultation Date/Type/Reason Admit Date/Time Aug 29, 2018 at 18:56 Initial Consult Date Type of Consult id Requesting Provider: KARLEY DEAN MD Date/Time of Note DATE: 09/03/18 TIME: 13:09 Exam/Review of Systems Exam Vitals Vital Signs Date Temp Pulse Resp B/P (MAP) Pulse Ox O2 O2 Flow FiO2 Time Delivery Rate 09/03/18 79 12:00 09/03/18 18 98 30 11:32 09/03/18 118/39 Mechanical 06:00 (65) Ventilator 09/03/18 97.0 04:00 Intake and Output 09/02/18 09/02/18 09/03/18 1515:00 23:00 07:00 IntakeIntake Total 947.5 ml 1238.0 ml 657.0 ml OutputOutput Total 730 ml 620 ml 420 ml BalanceBalance 217.5 ml 618.0 ml 237.0 ml Results Result Diagram: 09/03/18 9923 09/03/18 0420 Results 24hrs Laboratory Tests Test 09/02/18 17:08 09/02/18 17:25 09/02/18 20:53 09/03/18 01:03 Vancomycin Level 13.7 Trough Bedside Glucose 198 195 225 H Test 09/03/18 04:20 09/03/18 04:33 09/03/18 05:18 09/03/18 07:00 Sodium Level 144 Potassium Level 3.3 L Chloride Level 111 H Carbon Dioxide 23 Level Anion Gap 10 Blood Urea 117 H Nitrogen Creatinine 2.40 H Est Glomerular Filtrat Rate mL/min Glucose Level 185 Calcium Level 8.7 Phosphorus Level 2.9 Magnesium Level 2.4 White Blood Count 16.4 H Red Blood Count 3.03 L Hemoglobin 8.3 L Hematocrit 24.9 L Mean Corpuscular 82.2 Volume Mean Corpuscular 27.4 L Hemoglobin Mean Corpuscular 33.3 Hemoglobin Concent Red Cell 15.0 H Distribution Width Platelet Count 389 Mean Platelet 9.3 Volume Immature 3.300 H Granulocytes % Neutrophils % 83.5 H Lymphocytes % 4.2 L Monocytes % 8.8 Eosinophils % 0.0 Basophils % 0.2 Nucleated Red 0.0 Blood Cells % Immature 0.550 H Granulocytes # Neutrophils # 13.7 H Lymphocytes # 0.7 L Monocytes # 1.4 H Eosinophils # 0.0 Basophils # 0.0 Nucleated Red 0.0 Blood Cells # Bedside Glucose 169 Blood Gas Specimen Blood arterial Source Arterial Blood 09/03/2018 7:23:22 Date Drawn AM Arterial Blood pH 7.471 H (Temp corrected) Arterial Blood 28.4 L pCO2 (Temp correct) Arterial Blood pO2 101.4 H (Temp corrected) Arterial Blood 20.3 L HCO3 Arterial Blood -2.5 Base Excess Arterial Blood 97.4 Oxygen Saturation Harshad Test ACCEPTAB Arterial Blood Gas Right Radial Puncture Site Arterial 0.3 Blood Carboxyhemog lobin Arterial Blood 0.3 Methemoglobin Blood Gas A-a O2 79.1 H Differential Oxyhemoglobin 96.8 Percent Blood Gas 37.0 Temperature Blood Gas 24.0 Respiration Rate Blood Gas Actual 24 Respiration Rate Blood Gas Modality VENT - AC FiO2 30.0 Blood Gas Tidal 550.0 Volume Blood Gas Notified TM Whom Blood Gas Notified 09/03/2018 7:51:25 Time AM Test 09/03/18 08:36 09/03/18 10:41 Bedside Glucose 195 Prothrombin Time 18.1 #H Prothrombin Time 1.4 Ratio INR International 1.49 Normalized Ratio Medications Medication Current Medications Diltiazem HCl (Cardizem) 30 mg Q8 PO Last administered on 08/29/18 21:47; Admin Dose 30 MG; Start 08/29/18 at 22:00; Status Hold Vancomycin HCl (Vanco Iv Per Pharmacy) VANCOMYCIN PER PHARMACY PER PROTOCOL XX ; Start 08/30/18 at 12:00 Fentanyl 100 ml @ 2.5 mls/hr TITRATE IV Last administered on 09/02/18 21:06; Admin Dose 5 MLS/HR; Start 08/30/18 at 13:30 Atenolol (Tenormin) 12.5 mg BID NGT Last administered on 09/03/18 08:27; Admin Dose 12.5 MG; Start 08/30/18 at 21:00 Digoxin (Digoxin) 0.125 mg DAILY@13 NGT Last administered on 09/02/18 12:35; Admin Dose 0.125 MG; Start 08/30/18 at 13:00 Ferrous Sulfate (Feosol Liquid Cup) 300 mg DAILY NGT Last administered on 09/03/18 08:26; Admin Dose 300 MG; Start 08/31/18 at 09:00 Lansoprazole (Prevacid) 30 mg DAILY@06 NGT Last administered on 09/03/18 05:48; Admin Dose 30 MG; Start 08/31/18 at 06:00 Docusate Sodium (Colace Liquid Cup) 100 mg BID PRN NGT CONSTIPATION Last administered on 08/30/18 23:46; Admin Dose 100 MG; Start 08/30/18 at 13:30 Vancomycin/Sodium Chloride 250 ml @ 125 mls/hr Q36H IVPB Last administered on 09/02/18 17:17; Admin Dose 125 MLS/HR; Start 09/01/18 at 06:00 Apixaban (Eliquis) 2.5 mg BID NGT Last administered on 09/03/18 08:27; Admin Dose 2.5 MG; Start 08/31/18 at 21:00 Midazolam HCl 50 ml @ 1 mls/hr TITRATE IV Last administered on 09/02/18 21:02; Admin Dose 5 MLS/HR; Start 09/01/18 at 11:00 Meropenem/Sodium Chloride 50 ml @ 100 mls/hr Q12 IVPB Last administered on 09/03/18 08:26; Admin Dose 100 MLS/HR; Start 09/01/18 at 21:00 Miscellaneous Information 1 ea NOTE XX ; Start 09/01/18 at 15:00 Glucose (Glutose) 15 gm Q15M PRN PO DECREASED GLUCOSE; Start 09/01/18 at 15:00 Glucose (Glutose) 22.5 gm Q15M PRN PO DECREASED GLUCOSE; Start 09/01/18 at 15:00 Dextrose (D50w Syringe) 25 ml Q15M PRN IV DECREASED GLUCOSE; Start 09/01/18 at 15:00 Dextrose (D50w Syringe) 50 ml Q15M PRN IV DECREASED GLUCOSE; Start 09/01/18 at 15:00 Glucagon (Glucagen) 1 mg Q15M PRN IM DECREASED GLUCOSE; Start 09/01/18 at 15:00 Glucose (Glutose) 15 gm Q15M PRN BUCCAL DECREASED GLUCOSE; Start 09/01/18 at 15:00 Insulin Aspart (Novolog Insulin Pen) NOVOLOG *MILD* ALGORI... Q4 SC Last administered on 09/03/18at 08:37; Admin Dose 2 UNIT; Start 09/02/18 at 01:00 Methylprednisolone Sodium Succinate (Solu-Medrol) 40 mg DAILY IV Last administered on 09/03/18at 08:26; Admin Dose 40 MG; Start 09/03/18 at 09:00 Albuterol (Ventolin Hfa) 2 puff Q6H RESP THERAPY INH ; Start 09/03/18 at 14:00 Ipratropium [place] (Atrovent Hfa) 2 puff Q6HWA RESP THERAPY INH ; Start 09/03/18 at 14:00 Ipratropium [place] (Atrovent Hfa) 2 puff Q6H RESP THERAPY PRN INH SHORTNESS OF BREATH; Start 09/03/18 at 09:30 Albuterol (Ventolin Hfa) 2 puff Q6H RESP THERAPY PRN INH SHORTNESS OF BREATH; Start 09/03/18 at 09:30 SUZANNE DANIELS NP Sep 03, 2018 13:10
[2018-09-03] MEDS: IPRATROPIUM (HFA) 12.9 GM INHALER INH SCH ×2 (13:26→19:43)
[2018-09-03] MEDS: ALBUTEROL HFA 8 GM INHALER INH SCH ×2 (13:27→19:48)
[2018-09-03] MEDS: MIDAZOLAM (DRIP) 50 mg/50 mL 50 ML IV SCH (19:32)
[2018-09-03] MEDS: FENTAnyl (DRIP) 1000 mcg/100mL 100 ML IV SCH (23:28)
[2018-09-04] VITALS (36 sets, daily range): BP systolic 92–137; BP diastolic 44–77; PULSE 52–86; RESP 15–31
[2018-09-04] MEDS: INSULIN ASPART [NOVOLOG] 3 ML PEN SC SCH ×6 (00:17→21:22)
[2018-09-04] MEDS: ALBUTEROL HFA 8 GM INHALER INH SCH ×4 (01:41→19:30)
[2018-09-04] MEDS: LANSOPRAZOLE 30 MG CAP NGT SCH (05:04)
[2018-09-04] MEDS: VANCOMYCIN 750 MG (PMX) 250 ML IVPB SCH (05:04)
[2018-09-04] MEDS: MIDAZOLAM (DRIP) 50 mg/50 mL 50 ML IV SCH ×2 (05:17→19:50)
[2018-09-04] MEDS: IPRATROPIUM (HFA) 12.9 GM INHALER INH SCH ×3 (07:50→19:30)
[2018-09-04] MEDS: METHYLPREDNISOLONE 40 MG INJ IV SCH (08:54)
[2018-09-04] MEDS: ATENOLOL 25 MG TAB NGT SCH ×2 (08:55→21:00)
[2018-09-04] MEDS: MEROPENEM 500MG/50 ML (PMX) 50 ML IVPB SCH ×2 (08:56→21:19)
[2018-09-04] MEDS: FERROUS SULFATE 60 MG/ML 5ML CUP NGT SCH (08:56)
[2018-09-04] MEDS: APIXABAN 5 MG TABLET NGT SCH ×2 (08:57→21:19)
--- NOTE | 2018-09-04 10:15 | CONS ---
Assessment/Plan Assessment/Plan Hospital Course (Demo Recall) IMPRESSION: 1. Atrial fibrillation with a rapid ventricular response.-now improved HR control 2. Congestive heart failure exacerbation, diastolic by most recent echo in July 2018 revealing a preserved EF of 65%, acute on chronic by history. 3. Hypertension-well controlled 4. Respiratory distress. 5. Shortness of breath, likely multifactorial secondary to heart failure and chronic obstructive pulmonary disease exacerbation. 6. Probable chronic obstructive pulmonary disease exacerbation. 7. Pneumonia, right lower lobe by chest x-ray, new since discharge, question aspiration. 8. Hyponatremia. 9. Severe leukocytosis of 29.4. 10. Anemia, mild. 11. Coagulopathy, likely secondary to baseline Eliquis. 12. ARF REcc: -ICU -Continue current atenolol -hold digoxin and follow levels and HR closely -Continue eliquis -Contiknue abx's and f/u cx data -Continue steroids/bronchodilators -Follow volume status closely s/p dose of IV lasix Consultation Date/Type/Reason Admit Date/Time Aug 29, 2018 at 18:56 Initial Consult Date 08/29/18 Type of Consult Cardiology Reason for Consultation AF Requesting Provider: KARLEY DEAN MD Date/Time of Note DATE: 09/04/18 TIME: 10:10 Exam/Review of Systems Vital Signs Vitals Vital Signs Date Temp Pulse Resp B/P (MAP) Pulse Ox O2 O2 Flow FiO2 Time Delivery Rate 09/04/18 68 08:00 09/04/18 97.9 20 110/59 100 Mechanical 08:00 (76) Ventilator 09/04/18 30 07:30 Intake and Output 09/03/18 09/03/18 09/04/18 1515:00 23:00 07:00 IntakeIntake Total 666.0 ml 442.5 ml 410 ml OutputOutput Total 885 ml 980 ml 565 ml BalanceBalance -219.0 ml -537.5 ml -155 ml Exam Exam Review of Systems: CONSTITUTIONAL: No fevers, chills. PULMONARY: intubated CARDIOVASCULAR: No chest pain/palpitations GASTROINTESTINAL: No nausea/vomiting. GENITOURINARY: No hematuria/dysuria. MUSCULOSKELETAL: No myagias/arthalgias. PSYCHIATRIC: The patient denies depression. NEUROLOGIC: sedated Constitutional: other (sedated) Head: normocephalic ENMT: intubated Neck: supple, jvd (9 cm water) Respiratory: diminished breath sounds Cardiovascular: irregular rhythm Gastrointestinal: soft, non-tender Musculoskeletal: muscle tone (normal) Extremities: edema (none) 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: other (No focal deficits) Labs Result Diagram: 09/04/18 0500 09/04/18 0500 Results 24hrs Laboratory Tests Test 09/03/18 10:41 09/03/18 13:06 09/03/18 18:07 09/03/18 21:52 Prothrombin Time 18.1 #H Prothrombin Time Ratio 1.4 INR International 1.49 Normalized Ratio Bedside Glucose 156 203 179 Test 09/04/18 00:14 09/04/18 05:00 09/04/18 05:02 09/04/18 09:09 Bedside Glucose 183 164 158 White Blood Count 20.0 #H Red Blood Count 3.52 L Hemoglobin 9.6 L Hematocrit 29.2 L Mean Corpuscular Volume 83.0 Mean Corpuscular 27.3 L Hemoglobin Mean Corpuscular 32.9 Hemoglobin Concent Red Cell Distribution 15.7 H Width Platelet Count 451 H Mean Platelet Volume 9.6 Immature Granulocytes % 6.100 H Neutrophils % Lymphocytes % Monocytes % Eosinophils % Basophils % Nucleated Red Blood 0.0 Cells % Immature Granulocytes # 1.230 H Neutrophils # Lymphocytes # Monocytes # Eosinophils # Basophils # Nucleated Red Blood Cells # Sodium Level 149 H Potassium Level 3.7 Chloride Level 113 H Carbon Dioxide Level 25 Anion Gap 11 Blood Urea Nitrogen 127 H Creatinine 2.30 H Est Glomerular Filtrat Rate mL/min Glucose Level 172 Calcium Level 9.3 Phosphorus Level 3.4 Magnesium Level 2.6 H Total Bilirubin 0.2 Direct Bilirubin 0.00 Indirect Bilirubin 0.2 Aspartate Amino 55 H Transf (AST/SGOT) Alanine 39 Aminotransferase (ALT/SG PT) Alkaline Phosphatase 107 Total Protein 5.5 L Albumin 2.6 L Globulin 2.90 Albumin/Globulin Ratio 0.89 Medications Medications Current Medications Diltiazem HCl (Cardizem) 30 mg Q8 PO Last administered on 08/29/18at 21:47; Admin Dose 30 MG; Start 08/29/18 at 22:00; Status Hold Vancomycin HCl (Vanco Iv Per Pharmacy) VANCOMYCIN PER PHARMACY PER PROTOCOL XX ; Start 08/30/18 at 12:00 Fentanyl 100 ml @ 2.5 mls/hr TITRATE IV Last administered on 09/03/18 23:28; Admin Dose 5 MLS/HR; Start 08/30/18 at 13:30 Atenolol (Tenormin) 12.5 mg BID NGT Last administered on 09/04/18 08:55; Admin Dose 12.5 MG; Start 08/30/18 at 21:00 Digoxin (Digoxin) 0.125 mg DAILY@13 NGT Last administered on 09/03/18 12:59; Admin Dose 0.125 MG; Start 08/30/18 at 13:00 Ferrous Sulfate (Feosol Liquid Cup) 300 mg DAILY NGT Last administered on 09/04/18 08:56; Admin Dose 300 MG; Start 08/31/18 at 09:00 Lansoprazole (Prevacid) 30 mg DAILY@06 NGT Last administered on 09/04/18 05:04; Admin Dose 30 MG; Start 08/31/18 at 06:00 Docusate Sodium (Colace Liquid Cup) 100 mg BID PRN NGT CONSTIPATION Last administered on 08/30/18 23:46; Admin Dose 100 MG; Start 08/30/18 at 13:30 Vancomycin/Sodium Chloride 250 ml @ 125 mls/hr Q36H IVPB Last administered on 09/04/18 05:04; Admin Dose 125 MLS/HR; Start 09/01/18 at 06:00 Apixaban (Eliquis) 2.5 mg BID NGT Last administered on 09/04/18 08:57; Admin Dose 2.5 MG; Start 08/31/18 at 21:00 Midazolam HCl 50 ml @ 1 mls/hr TITRATE IV Last administered on 09/04/18 05:17; Admin Dose 5 MLS/HR; Start 09/01/18 at 11:00 Meropenem/Sodium Chloride 50 ml @ 100 mls/hr Q12 IVPB Last administered on 09/04/18 08:56; Admin Dose 100 MLS/HR; Start 09/01/18 at 21:00 Miscellaneous Information 1 ea NOTE XX ; Start 09/01/18 at 15:00 Glucose (Glutose) 15 gm Q15M PRN PO DECREASED GLUCOSE; Start 09/01/18 at 15:00 Glucose (Glutose) 22.5 gm Q15M PRN PO DECREASED GLUCOSE; Start 09/01/18 at 15:00 Dextrose (D50w Syringe) 25 ml Q15M PRN IV DECREASED GLUCOSE; Start 09/01/18 at 15:00 Dextrose (D50w Syringe) 50 ml Q15M PRN IV DECREASED GLUCOSE; Start 09/01/18 at 15:00 Glucagon (Glucagen) 1 mg Q15M PRN IM DECREASED GLUCOSE; Start 09/01/18 at 15:00 Glucose (Glutose) 15 gm Q15M PRN BUCCAL DECREASED GLUCOSE; Start 09/01/18 at 15:00 Insulin Aspart (Novolog Insulin Pen) NOVOLOG *MILD* ALGORI... Q4 SC Last administered on 09/04/18at 09:12; Admin Dose 1 UNIT; Start 09/02/18 at 01:00 Methylprednisolone Sodium Succinate (Solu-Medrol) 40 mg DAILY IV Last administered on 09/04/18at 08:54; Admin Dose 40 MG; Start 09/03/18 at 09:00 Albuterol (Ventolin Hfa) 2 puff Q6H RESP THERAPY INH Last administered on at 07:50; Admin Dose 2 PUFF; Start 09/03/18 at 14:00 Ipratropium [place] (Atrovent Hfa) 2 puff Q6HWA RESP THERAPY INH Last administered on 09/04/18at 07:50; Admin Dose 2 PUFF; Start 09/03/18 at 14:00 Ipratropium [place] (Atrovent Hfa) 2 puff Q6H RESP THERAPY PRN INH SHORTNESS OF BREATH; Start 09/03/18 at 09:30 Albuterol (Ventolin Hfa) 2 puff Q6H RESP THERAPY PRN INH SHORTNESS OF BREATH; Start 09/03/18 at 09:30 CECE LOPEZ Sep 04, 2018 10:15
--- NOTE | 2018-09-04 11:09 | PN ---
Date/Time of Note Date/Time of Note DATE: 09/04/18 TIME: 11:05 Assessment/Plan VTE Prophylaxis Risk score (from Ns)>0 risk: 12 SCD applied (from Ns): Yes Pharmacological prophylaxis: NA/contraindicated Pharm contraindication: low risk/ambulating Lines/Catheters IV Catheter Type (from Nrsg): Central Line Central line still needed: Yes Urinary Cath still in place: Yes Reason Cath still needed: urinary retention Assessment/Plan Assessment/Plan ssessment/Plan 1 shock likley duue to. Sepsis /pneumonia 2. ALOC, lethargic.Now sedated follows commands off sedation 3. Atrial fibrillation, now flutter , controlled 4. Hypoxic respiratory failure. Respiratory acidosis, resolved. 5. Bilateral pneumonia 6. Congestive heart failure, EF 35 to 40%, 7. Hx of right side lung cancer 8. JAMES on chronic kidney disease, creatinine baseline 1.6. With elevated BUN and creatinine ratio likely ATN secondary to septic shock now Cr downtrending however BUN still high 9. Hx of pleural effusions, right and left and numerous thoracentesis 10. Bilateral pleural effusion 11. Hx of hypertension, now on BP support 12. Hyperlipidemia 13 + bacteremia however new bld cx neg Assessment/Plan -c/w ICU care -Monitor lytes/urine output no emergent indication of hemodialysis, cr downtrending , UOP 80 cc/hr - FWF and d5w change abx in D5W - keep euvolemic - ? thoracentesis when extubated discussed with Dr Guajardo - replete K -dec-steroids due to uremia now po - Hb 8.3 today>9.6 -pulmonary consult dr Guajardo appreciated -Cardiology consult dr Hall -With vancomycin/meropenam, -DVT proph. Eliquiz 2.5 mg GT BID -GI proph. Protonix GT -Off pressors. -c/w tube feed - Possible extubation soon Result Diagram: 09/04/18 0500 09/04/18 0500 Results 24hrs Laboratory Tests Test 09/03/18 13:06 09/03/18 18:07 09/03/18 21:52 09/04/18 00:14 Bedside Glucose 156 203 179 183 Test 09/04/18 05:00 09/04/18 05:02 09/04/18 09:09 White Blood Count 20.0 #H Red Blood Count 3.52 L Hemoglobin 9.6 L Hematocrit 29.2 L Mean Corpuscular Volume 83.0 Mean Corpuscular 27.3 L Hemoglobin Mean Corpuscular 32.9 Hemoglobin Concent Red Cell Distribution 15.7 H Width Platelet Count 451 H Mean Platelet Volume 9.6 Immature Granulocytes % 6.100 H Neutrophils % Lymphocytes % Monocytes % Eosinophils % Basophils % Nucleated Red Blood 0.0 Cells % Immature Granulocytes # 1.230 H Neutrophils # Lymphocytes # Monocytes # Eosinophils # Basophils # Nucleated Red Blood Cells # Sodium Level 149 H Potassium Level 3.7 Chloride Level 113 H Carbon Dioxide Level 25 Anion Gap 11 Blood Urea Nitrogen 127 H Creatinine 2.30 H Est Glomerular Filtrat Rate mL/min Glucose Level 172 Calcium Level 9.3 Phosphorus Level 3.4 Magnesium Level 2.6 H Total Bilirubin 0.2 Direct Bilirubin 0.00 Indirect Bilirubin 0.2 Aspartate Amino 55 H Transf (AST/SGOT) Alanine 39 Aminotransferase (ALT/SG PT) Alkaline Phosphatase 107 Total Protein 5.5 L Albumin 2.6 L Globulin 2.90 Albumin/Globulin Ratio 0.89 Bedside Glucose 164 158 Subjective 24 Hr Interval Summary Free Text/Dictation Switched to precedex UOP 80 cc/hr Exam/Review of Systems Exam Vitals Vital Signs Date Temp Pulse Resp B/P (MAP) Pulse Ox O2 O2 Flow FiO2 Time Delivery Rate 09/04/18 68 08:00 09/04/18 97.9 20 110/59 100 Mechanical 08:00 (76) Ventilator 09/04/18 30 07:30 Intake and Output 09/03/18 09/03/18 09/04/18 1515:00 23:00 07:00 IntakeIntake Total 666.0 ml 442.5 ml 420 ml OutputOutput Total 885 ml 980 ml 565 ml BalanceBalance -219.0 ml -537.5 ml -145 ml Exam rally intubated, . moves extremitites when off sedation Constitutional: frail Neck: supple Respiratory: diminished breath sounds Cardiovascular: regular rate and rhythm Gastrointestinal: soft Genitourinary - Male: other (yañez) Skin: ecchymosis Results Results 24hrs Laboratory Tests Test 09/03/18 13:06 09/03/18 18:07 09/03/18 21:52 09/04/18 00:14 Bedside Glucose 156 203 179 183 Test 09/04/18 05:00 09/04/18 05:02 09/04/18 09:09 White Blood Count 20.0 #H Red Blood Count 3.52 L Hemoglobin 9.6 L Hematocrit 29.2 L Mean Corpuscular Volume 83.0 Mean Corpuscular 27.3 L Hemoglobin Mean Corpuscular 32.9 Hemoglobin Concent Red Cell Distribution 15.7 H Width Platelet Count 451 H Mean Platelet Volume 9.6 Immature Granulocytes % 6.100 H Neutrophils % Lymphocytes % Monocytes % Eosinophils % Basophils % Nucleated Red Blood 0.0 Cells % Immature Granulocytes # 1.230 H Neutrophils # Lymphocytes # Monocytes # Eosinophils # Basophils # Nucleated Red Blood Cells # Sodium Level 149 H Potassium Level 3.7 Chloride Level 113 H Carbon Dioxide Level 25 Anion Gap 11 Blood Urea Nitrogen 127 H Creatinine 2.30 H Est Glomerular Filtrat Rate mL/min Glucose Level 172 Calcium Level 9.3 Phosphorus Level 3.4 Magnesium Level 2.6 H Total Bilirubin 0.2 Direct Bilirubin 0.00 Indirect Bilirubin 0.2 Aspartate Amino 55 H Transf (AST/SGOT) Alanine 39 Aminotransferase (ALT/SG PT) Alkaline Phosphatase 107 Total Protein 5.5 L Albumin 2.6 L Globulin 2.90 Albumin/Globulin Ratio 0.89 Bedside Glucose 164 158 Medications Medication Current Medications Diltiazem HCl (Cardizem) 30 mg Q8 PO Last administered on 08/29/18at 21:47; Admin Dose 30 MG; Start 08/29/18 at 22:00; Status Hold Vancomycin HCl (Vanco Iv Per Pharmacy) VANCOMYCIN PER PHARMACY PER PROTOCOL XX ; Start 08/30/18 at 12:00 Fentanyl 100 ml @ 2.5 mls/hr TITRATE IV Last administered on 09/03/18at 23:28; Admin Dose 5 MLS/HR; Start 08/30/18 at 13:30 Atenolol (Tenormin) 12.5 mg BID NGT Last administered on 09/04/18 08:55; Admin Dose 12.5 MG; Start 08/30/18 at 21:00 Digoxin (Digoxin) 0.125 mg DAILY@13 NGT Last administered on 09/03/18at 12:59; Admin Dose 0.125 MG; Start 08/30/18 at 13:00; Status Hold Ferrous Sulfate (Feosol Liquid Cup) 300 mg DAILY NGT Last administered on 7/3/19at 08:56; Admin Dose 300 MG; Start 08/31/18 at 09:00 Lansoprazole (Prevacid) 30 mg DAILY@06 NGT Last administered on 09/04/18at 05:04; Admin Dose 30 MG; Start 08/31/18 at 06:00 Docusate Sodium (Colace Liquid Cup) 100 mg BID PRN NGT CONSTIPATION Last administered on 08/30/18at 23:46; Admin Dose 100 MG; Start 08/30/18 at 13:30 Vancomycin/Sodium Chloride 250 ml @ 125 mls/hr Q36H IVPB Last administered on 09/04/18at 05:04; Admin Dose 125 MLS/HR; Start 09/01/18 at 06:00 Apixaban (Eliquis) 2.5 mg BID NGT Last administered on 09/04/18at 08:57; Admin Dose 2.5 MG; Start 08/31/18 at 21:00 Midazolam HCl 50 ml @ 1 mls/hr TITRATE IV Last administered on 09/04/18at 05:17; Admin Dose 5 MLS/HR; Start 09/01/18 at 11:00 Meropenem/Sodium Chloride 50 ml @ 100 mls/hr Q12 IVPB Last administered on 09/04/18at 08:56; Admin Dose 100 MLS/HR; Start 09/01/18 at 21:00 Miscellaneous Information 1 ea NOTE XX ; Start 09/01/18 at 15:00 Glucose (Glutose) 15 gm Q15M PRN PO DECREASED GLUCOSE; Start 09/01/18 at 15:00 Glucose (Glutose) 22.5 gm Q15M PRN PO DECREASED GLUCOSE; Start 09/01/18 at 1 5:00 Dextrose (D50w Syringe) 25 ml Q15M PRN IV DECREASED GLUCOSE; Start 09/01/18 at 15:00 Dextrose (D50w Syringe) 50 ml Q15M PRN IV DECREASED GLUCOSE; Start 09/01/18 at 15:00 Glucagon (Glucagen) 1 mg Q15M PRN IM DECREASED GLUCOSE; Start 09/01/18 at 15:00 Glucose (Glutose) 15 gm Q15M PRN BUCCAL DECREASED GLUCOSE; Start 09/01/18 at 15:00 Insulin Aspart (Novolog Insulin Pen) NOVOLOG *MILD* ALGORI... Q4 SC Last administered on 09/04/18at 09:12; Admin Dose 1 UNIT; Start 09/02/18 at 01:00 Albuterol (Ventolin Hfa) 2 puff Q6H RESP THERAPY INH Last administered on 09/04/18at 07:50; Admin Dose 2 PUFF; Start 09/03/18 at 14:00 Ipratropium [place] (Atrovent Hfa) 2 puff Q6HWA RESP THERAPY INH Last admi nistered on 09/04/18at 07:50; Admin Dose 2 PUFF; Start 09/03/18 at 14:00 Ipratropium [place] (Atrovent Hfa) 2 puff Q6H RESP THERAPY PRN INH SHORTNESS OF BREATH; Start 09/03/18 at 09:30 Albuterol (Ventolin Hfa) 2 puff Q6H RESP THERAPY PRN INH SHORTNESS OF BREATH; Start 09/03/18 at 09:30 FIDEL GAVIN MD Sep 04, 2018 11:08
--- NOTE | 2018-09-04 12:20 | CONS ---
Assessment/Plan Assessment/Plan Hospital Course (Demo Recall) Patient remains unchanged intubated afebrile WBC 20 platelets 451 BUN 127 creatinine 2.30 Microbiology: Blood culture growing Staph [address] of the chest revealed patchy bilateral pulmonary consolidation greater on the left concerning for multilobar pneumonia. Please see full report in the chart Indwelling: Endotracheal tube NG tube Bar catheter right femoral triple-lumen catheter Antimicrobials: Vancomycin and Merrem Physical examination: Chronically ill appearing wasted elderly man who is intubated sedated in no distress. Head atraumatic normocephalic neck is supple chest rise symmetrical breath sounds diminished bases heart S1-S2 abdomen soft bowel sounds hypoactive extremities without cyanosis Assessment: 1. Severe sepsis with shock 2. Acute hypoxemic respiratory failure possibly aspiration 3. Multilobar pneumonia 4. COPD 5. History of lung cancer status post radiation, details unknown 6. Atrial fibrillation status post RVR 7. Bacteremia, cw contaminant Plan: Remains unchanged, continue antibiotics, steroids taper, vent management per pulmonary Consultation Date/Type/Reason Admit Date/Time Aug 29, 2018 at 18:56 Initial Consult Date Type of Consult id Requesting Provider: KARLEY DEAN MD Date/Time of Note DATE: 09/04/18 TIME: 12:19 Exam/Review of Systems Exam Vitals Vital Signs Date Temp Pulse Resp B/P (MAP) Pulse Ox O2 O2 Flow FiO2 Time Delivery Rate 09/04/18 30 12:00 09/04/18 79 18 92/48 (63) 98 Mechanical 12:00 Ventilator 09/04/18 97.9 08:00 Intake and Output 09/03/18 09/03/18 09/04/18 1515:00 23:00 07:00 IntakeIntake Total 666.0 ml 442.5 ml 420 ml OutputOutput Total 885 ml 980 ml 565 ml BalanceBalance -219.0 ml -537.5 ml -145 ml Results Result Diagram: 09/04/18 0500 09/04/18 0500 Results 24hrs Laboratory Tests Test 09/03/18 13:06 09/03/18 18:07 09/03/18 21:52 09/04/18 00:14 Bedside Glucose 156 203 179 183 Test 09/04/18 05:00 09/04/18 05:02 09/04/18 09:09 White Blood Count 20.0 #H Red Blood Count 3.52 L Hemoglobin 9.6 L Hematocrit 29.2 L Mean Corpuscular Volume 83.0 Mean Corpuscular 27.3 L Hemoglobin Mean Corpuscular 32.9 Hemoglobin Concent Red Cell Distribution 15.7 H Width Platelet Count 451 H Mean Platelet Volume 9.6 Immature Granulocytes % 6.100 H Neutrophils % Lymphocytes % Monocytes % Eosinophils % Basophils % Nucleated Red Blood 0.0 Cells % Immature Granulocytes # 1.230 H Neutrophils # Lymphocytes # Monocytes # Eosinophils # Basophils # Nucleated Red Blood Cells # Sodium Level 149 H Potassium Level 3.7 Chloride Level 113 H Carbon Dioxide Level 25 Anion Gap 11 Blood Urea Nitrogen 127 H Creatinine 2.30 H Est Glomerular Filtrat Rate mL/min Glucose Level 172 Calcium Level 9.3 Phosphorus Level 3.4 Magnesium Level 2.6 H Total Bilirubin 0.2 Direct Bilirubin 0.00 Indirect Bilirubin 0.2 Aspartate Amino 55 H Transf (AST/SGOT) Alanine 39 Aminotransferase (ALT/SG PT) Alkaline Phosphatase 107 Total Protein 5.5 L Albumin 2.6 L Globulin 2.90 Albumin/Globulin Ratio 0.89 Bedside Glucose 164 158 Medications Medication Current Medications Diltiazem HCl (Cardizem) 30 mg Q8 PO Last administered on 08/29/18at 21:47; Admin Dose 30 MG; Start 08/29/18 at 22:00; Status Hold Vancomycin HCl (Vanco Iv Per Pharmacy) VANCOMYCIN PER PHARMACY PER PROTOCOL XX ; Start 08/30/18 at 12:00 Fentanyl 100 ml @ 2.5 mls/hr TITRATE IV Last administered on 09/03/18at 23:28; Admin Dose 5 MLS/HR; Start 08/30/18 at 13:30 Atenolol (Tenormin) 12.5 mg BID NGT Last administered on 09/04/18at 08:55; Admin Dose 12.5 MG; Start 08/30/18 at 21:00 Digoxin (Digoxin) 0.125 mg DAILY@13 NGT Last administered on 09/03/18at 12:59; Admin Dose 0.125 MG; Start 08/30/18 at 13:00; Status Hold Ferrous Sulfate (Feosol Liquid Cup) 300 mg DAILY NGT Last administered on 09/04/18at 08:56; Admin Dose 300 MG; Start 08/31/18 at 09:00 Lansoprazole (Prevacid) 30 mg DAILY@06 NGT Last administered on 09/04/18at 05:04; Admin Dose 30 MG; Start 08/31/18 at 06:00 Docusate Sodium (Colace Liquid Cup) 100 mg BID PRN NGT CONSTIPATION Last administered on 08/30/18at 23:46; Admin Dose 100 MG; Start 08/30/18 at 13:30 Vancomycin/Sodium Chloride 250 ml @ 125 mls/hr Q36H IVPB Last administered on 09/04/18at 05:04; Admin Dose 125 MLS/HR; Start 09/01/18 at 06:00 Apixaban (Eliquis) 2.5 mg BID NGT Last administered on 09/04/18at 08:57; Admin Dose 2.5 MG; Start 08/31/18 at 21:00 Midazolam HCl 50 ml @ 1 mls/hr TITRATE IV Last administered on 09/04/18at 05:17; Admin Dose 5 MLS/HR; Start 09/01/18 at 11:00 Meropenem/Sodium Chloride 50 ml @ 100 mls/hr Q12 IVPB Last administered on 09/04/18at 08:56; Admin Dose 100 MLS/HR; Start 09/01/18 at 21:00 Miscellaneous Information 1 ea NOTE XX ; Start 09/01/18 at 15:00 Glucose (Glutose) 15 gm Q15M PRN PO DECREASED GLUCOSE; Start 09/01/18 at 15:00 Glucose (Glutose) 22.5 gm Q15M PRN PO DECREASED GLUCOSE; Start 09/01/18 at 15:00 Dextrose (D50w Syringe) 25 ml Q15M PRN IV DECREASED GLUCOSE; Start 09/01/18 at 15:00 Dextrose (D50w Syringe) 50 ml Q15M PRN IV DECREASED GLUCOSE; Start 09/01/18 at 15:00 Glucagon (Glucagen) 1 mg Q15M PRN IM DECREASED GLUCOSE; Start 09/01/18 at 15:00 Glucose (Glutose) 15 gm Q15M PRN BUCCAL DECREASED GLUCOSE; Start 09/01/18 at 15:00 Insulin Aspart (Novolog Insulin Pen) NOVOLOG *MILD* ALGORI... Q4 SC Last administered on 09/04/18at 09:12; Admin Dose 1 UNIT; Start 09/02/18 at 01:00 Albuterol (Ventolin Hfa) 2 puff Q6H RESP THERAPY INH Last administered on 09/04/18at 07:50; Admin Dose 2 PUFF; Start 09/03/18 at 14:00 Ipratropium [place] (Atrovent Hfa) 2 puff Q6HWA RESP THERAPY INH Last administered on 09/04/18at 07:50; Admin Dose 2 PUFF; Start 09/03/18 at 14:00 Ipratropium [place] (Atrovent Hfa) 2 puff Q6H RESP THERAPY PRN INH SHORTNESS OF BREATH; Start 09/03/18 at 09:30 Albuterol (Ventolin Hfa) 2 puff Q6H RESP THERAPY PRN INH SHORTNESS OF BREATH; Start 09/03/18 at 09:30 Prednisone (Prednisone) 30 mg DAILY PO ; Start 09/05/18 at 09:00 SUZANNE DANIELS NP Sep 04, 2018 12:20
[2018-09-04] MEDS ORDERED: DEXMEDETOMIDINE IN DEXTROSE 5% 50 ML IV SCH (12:30)
--- NOTE | 2018-09-04 12:51 | CONS ---
Consult Date/Type/Reason Admit Date/Time Aug 29, 2018 at 18:56 Initial Consult Date Type of Consult Pulmonary Requesting Provider: KARLEY DEAN MD Date/Time of Note DATE: 09/04/18 TIME: 12:50 Subjective No significant changes continues mechanical ventilation significant agitation off sedation. Objective Vital Signs Date Temp Pulse Resp B/P (MAP) Pulse Ox O2 O2 Flow FiO2 Time Delivery Rate 09/04/18 30 12:00 09/04/18 79 18 92/48 (63) 98 Mechanical 12:00 Ventilator 09/04/18 97.9 08:00 Intake and Output 09/03/18 09/03/18 09/04/18 1515:00 23:00 07:00 IntakeIntake Total 666.0 ml 442.5 ml 460 ml OutputOutput Total 885 ml 980 ml 665 ml BalanceBalance -219.0 ml -537.5 ml -205 ml Exam PHYSICAL EXAMINATION: GENERAL: Elderly-appearing gentleman, now intubated on mechanical ventilation, appears comfortable at rest, no acute distress. VITAL SIGNS: NECK: Supple. No JVD or lymphadenopathy. CARDIAC: Sounds S1, S2, no added sounds or murmurs. CHEST: Diminished air entry bilaterally. ABDOMEN: Soft, nontender. No guarding or rebound. EXTREMITIES: No cyanosis or clubbing. 1+ edema. NEUROLOGIC: Unable to assess. Vent Setting Ventilator Support Mode: AC Fraction of Inspired Oxygen pe: 30 Positive End Expiratory Pressu: 0.0 Results/Medications Result Diagram: 09/04/18 0500 09/04/18 0500 Results 24 hrs Laboratory Tests Test 09/03/18 13:06 09/03/18 18:07 09/03/18 21:52 09/04/18 00:14 Bedside Glucose 156 203 179 183 Test 09/04/18 05:00 09/04/18 05:02 09/04/18 09:09 White Blood Count 20.0 #H Red Blood Count 3.52 L Hemoglobin 9.6 L Hematocrit 29.2 L Mean Corpuscular Volume 83.0 Mean Corpuscular 27.3 L Hemoglobin Mean Corpuscular 32.9 Hemoglobin Concent Red Cell Distribution 15.7 H Width Platelet Count 451 H Mean Platelet Volume 9.6 Immature Granulocytes % 6.100 H Neutrophils % Lymphocytes % Monocytes % Eosinophils % Basophils % Nucleated Red Blood 0.0 Cells % Immature Granulocytes # 1.230 H Neutrophils # Lymphocytes # Monocytes # Eosinophils # Basophils # Nucleated Red Blood Cells # Sodium Level 149 H Potassium Level 3.7 Chloride Level 113 H Carbon Dioxide Level 25 Anion Gap 11 Blood Urea Nitrogen 127 H Creatinine 2.30 H Est Glomerular Filtrat Rate mL/min Glucose Level 172 Calcium Level 9.3 Phosphorus Level 3.4 Magnesium Level 2.6 H Total Bilirubin 0.2 Direct Bilirubin 0.00 Indirect Bilirubin 0.2 Aspartate Amino 55 H Transf (AST/SGOT) Alanine 39 Aminotransferase (ALT/SG PT) Alkaline Phosphatase 107 Total Protein 5.5 L Albumin 2.6 L Globulin 2.90 Albumin/Globulin Ratio 0.89 Bedside Glucose 164 158 Medications Current Medications Diltiazem HCl (Cardizem) 30 mg Q8 PO Last administered on 08/29/18 21:47; Admin Dose 30 MG; Start 08/29/18 at 22:00; Status Hold Vancomycin HCl (Vanco Iv Per Pharmacy) VANCOMYCIN PER PHARMACY PER PROTOCOL XX ; Start 08/30/18 at 12:00 Fentanyl 100 ml @ 2.5 mls/hr TITRATE IV Last administered on 09/03/18 23:28; Admin Dose 5 MLS/HR; Start 08/30/18 at 13:30 Atenolol (Tenormin) 12.5 mg BID NGT Last administered on 09/04/18 08:55; Admin Dose 12.5 MG; Start 08/30/18 at 21:00 Digoxin (Digoxin) 0.125 mg DAILY@13 NGT Last administered on 09/03/18 12:59; Admin Dose 0.125 MG; Start 08/30/18 at 13:00; Status Hold Ferrous Sulfate (Feosol Liquid Cup) 300 mg DAILY NGT Last administered on 09/04/18 08:56; Admin Dose 300 MG; Start 08/31/18 at 09:00 Lansoprazole (Prevacid) 30 mg DAILY@06 NGT Last administered on 09/04/18 05:04; Admin Dose 30 MG; Start 08/31/18 at 06:00 Docusate Sodium (Colace Liquid Cup) 100 mg BID PRN NGT CONSTIPATION Last administered on 08/30/18 23:46; Admin Dose 100 MG; Start 08/30/18 at 13:30 Vancomycin/Sodium Chloride 250 ml @ 125 mls/hr Q36H IVPB Last administered on 09/04/18 05:04; Admin Dose 125 MLS/HR; Start 09/01/18 at 06:00 Apixaban (Eliquis) 2.5 mg BID NGT Last administered on 09/04/18 08:57; Admin Dose 2.5 MG; Start 08/31/18 at 21:00 Midazolam HCl 50 ml @ 1 mls/hr TITRATE IV Last administered on 09/04/18 05:17; Admin Dose 5 MLS/HR; Start 09/01/18 at 11:00 Meropenem/Sodium Chloride 50 ml @ 100 mls/hr Q12 IVPB Last administered on 09/04/18 08:56; Admin Dose 100 MLS/HR; Start 09/01/18 at 21:00 Miscellaneous Information 1 ea NOTE XX ; Start 09/01/18 at 15:00 Glucose (Glutose) 15 gm Q15M PRN PO DECREASED GLUCOSE; Start 09/01/18 at 15:00 Glucose (Glutose) 22.5 gm Q15M PRN PO DECREASED GLUCOSE; Start 09/01/18 at 15:00 Dextrose (D50w Syringe) 25 ml Q15M PRN IV DECREASED GLUCOSE; Start 09/01/18 at 15:00 Dextrose (D50w Syringe) 50 ml Q15M PRN IV DECREASED GLUCOSE; Start 09/01/18 at 15:00 Glucagon (Glucagen) 1 mg Q15M PRN IM DECREASED GLUCOSE; Start 09/01/18 at 15:00 Glucose (Glutose) 15 gm Q15M PRN BUCCAL DECREASED GLUCOSE; Start 09/01/18 at 15:00 Insulin Aspart (Novolog Insulin Pen) NOVOLOG *MILD* ALGORI... Q4 SC Last administered on 09/04/18 09:12; Admin Dose 1 UNIT; Start 09/02/18 at 01:00 Albuterol (Ventolin Hfa) 2 puff Q6H RESP THERAPY INH Last administered on 09/04/18 07:50; Admin Dose 2 PUFF; Start 09/03/18 at 14:00 Ipratropium [place] (Atrovent Hfa) 2 puff Q6HWA RESP THERAPY INH Last administ ered on 09/04/18 07:50; Admin Dose 2 PUFF; Start 09/03/18 at 14:00 Ipratropium [place] (Atrovent Hfa) 2 puff Q6H RESP THERAPY PRN INH SHORTNESS OF BREATH; Start 09/03/18 at 09:30 Albuterol (Ventolin Hfa) 2 puff Q6H RESP THERAPY PRN INH SHORTNESS OF BREATH; Start 09/03/18 at 09:30 Prednisone (Prednisone) 30 mg DAILY PO ; Start 09/05/18 at 09:00 Assessment/Plan Hospital Course (Demo Recall) IMPRESSION AND PLAN: 1. Likely metastatic lung cancer. 2. Probable aspiration pneumonia. Bilateral infiltrates with left pleural effusion. 3. Chronic obstructive pulmonary disease exacerbation. 4. Septic shock and metabolic acidosis secondary to above. 5. Renal insufficiency. PLAN: 1. Continue vasopressors and IV fluids tube feeding as tolerated, 2. Blood cultures. 3. Broad-spectrum antibiotics. 4. DVT and GI prophylaxis. 5. CPAP trial tomorrow if patient stable. 6. Steroids. 7. Transition to Precedex and fentanyl Critical care time 40 minutes. Palliative care consult regarding goals of care. AISHWARYA PICKARD MD, [facility] Sep 04, 2018 12:51
--- NOTE | 2018-09-04 17:21 | CONS ---
Assessment/Plan Assessment/Plan Assessment/Plan (Daily) Reviewed events over the last 24 hours sedated however has spoken to Dr. Guajardo who feels that there is a possibility of patient may be asked debatable. I will call patient's agent who is very reasonable and speak to him once again options are extubating patient successfully but if that is not the case I will suggest just comfort measures. Consultation Date/Type/Reason Admit Date/Time Aug 29, 2018 at 18:56 Date/Time of Note DATE: 09/04/18 TIME: 17:20 Past Medical History Medical History: congestive heart failure, coronary artery disease, hypertension, renal disease Home Meds Reported Medications Mupirocin Calcium* (Mupirocin*) 2% - 15 Gram Cream..g., 1 APPLIC TOP BID, #1 TUB 08/29/18 Ondansetron Hcl* (Zofran*) 4 Mg Tab, 4 MG PO Q6H PRN for NAUSEA AND OR VOMITING, TAB 08/29/18 Ipratropium-Albuterol (Ipratropium-Albuterol) 0.5-3 Mg/3 Ml Ampul.neb, 3 ML INHALATION Q6 PRN for WHEEZING AND SOB, #30 VIAL 08/29/18 Ferrous Sulfate* (Ferrous Sulfate*) 325 Mg Tabec, 325 MG PO DAILY, TAB 08/29/18 Apixaban* (Eliquis*) 5 Mg Tablet, 5 MG PO BID, TAB 08/29/18 Docusate Sodium* (Colace*) 100 Mg Capsule, 100 MG PO BID, #60 CAP 08/29/18 Bisacodyl* (Bisacodyl*) 5 Mg Tablet., 10 MG PO BID PRN for CONSTIPATION, TAB 08/29/18 Tuberculin,Purif.prot.deriv. (Aplisol) 5 Tub Unit/0.1 Ml Vial, 5 TUB ID ONCE, VIAL START DATE 08/31/18 -- END DATE 09/01/18 08/29/18 Acetaminophen* (Acetaminophen*) 650 Mg Tablet, 650 MG PO Q6H PRN for PAIN LEVEL 1-10/10, #30 TAB AND FEVER>101F 08/29/18 Guaifenesin (Guaifenesin) 100 Mg/5 Ml Liquid, 10 ML PO NEEDED PRN for COUGH, ML 08/13/18 Diltiazem Hcl* (Cardizem*) 30 Mg Tablet, 30 MG PO Q8 for CHF, #90 TAB HOLD IF SBP<110 OR HR<60 08/13/18 Aspirin* (Aspirin* EC) 81 Mg Tablet.dr, 81 MG PO DAILY, TAB 08/13/18 Digoxin* (Digitek*) 125 Mcg Tablet, 0.125 MG PO DAILY, TAB HOLD IF SBP<110 OR HR<60 08/13/18 Atenolol* (Atenolol*) 25 Mg Tablet, 12.5 MG PO BID, #60 TAB HOLD IF SBP<110 OR HR<60 08/13/18 Furosemide* (Furosemide*) 40 Mg Tablet, 40 MG PO DAILY, TAB HOLD IF SBP<110 OR HR<60 08/13/18 Magnesium Hydroxide* (Milk Of Magnesia*) 400 Mg/5 Ml Oral.susp, 30 ML PO DAILY, ML 08/13/18 Potassium Chloride* (Klor-Con*) 20 Meq Tabsr, 20 MEQ PO DAILY, TAB.SA 07/11/18 Pantoprazole* (Pantoprazole*) 40 Mg Tablet.dr, 40 MG PO DAILY, TAB 07/11/18 Discontinued Reported Medications Albuterol Sulfate* (Proair HFA*) 8.5 Gm Hfa.aer.ad, 2 PUFF INH Q6H PRN for WHEEZING AND SOB, #1 INHALER 08/13/18 Hydrocortisone* Topical (Hydrocortisone* Topical) 2.5%-28.3 Gm Cream..g., 1 APPLIC TOP BID PRN for ITCHING, TUB 08/13/18 Acetaminophen* (Acetaminophen*) 500 MG Extra Strength Tablet, 500 MG PO Q6H PRN for PAIN AND OR ELEVATED TEMP, TAB 08/13/18 Dabigatran Etexilate Mesylate* (Pradaxa*) 75 Mg Cap, 75 MG PO BID, CAP 07/11/18 Discontinued Scripts Ipratropium-Albuterol (Ipratropium-Albuterol) 0.5-3 Mg/3 Ml Ampul.neb, 3 ML HHN Q4H RESP THERAPY for 30 Days Prov:JASPER SAHU 07/19/18 Medications Current Medications Diltiazem HCl (Cardizem) 30 mg Q8 PO Last administered on 08/29/18at 21:47; Admin Dose 30 MG; Start 08/29/18 at 22:00; Status Hold Vancomycin HCl (Vanco Iv Per Pharmacy) VANCOMYCIN PER PHARMACY PER PROTOCOL XX ; Start 08/30/18 at 12:00 Fentanyl 100 ml @ 2.5 mls/hr TITRATE IV Last administered on 09/03/18 23:28; Admin Dose 5 MLS/HR; Start 08/30/18 at 13:30 Atenolol (Tenormin) 12.5 mg BID NGT Last administered on 09/04/18 08:55; Admin Dose 12.5 MG; Start 08/30/18 at 21:00 Digoxin (Digoxin) 0.125 mg DAILY@13 NGT Last administered on 09/03/18 12:59; Admin Dose 0.125 MG; Start 08/30/18 at 13:00; Status Hold Ferrous Sulfate (Feosol Liquid Cup) 300 mg DAILY NGT Last administered on 09/04/18 08:56; Admin Dose 300 MG; Start 08/31/18 at 09:00 Lansoprazole (Prevacid) 30 mg DAILY@06 NGT Last administered on 09/04/18 05:04; Admin Dose 30 MG; Start 08/31/18 at 06:00 Docusate Sodium (Colace Liquid Cup) 100 mg BID PRN NGT CONSTIPATION Last administered on 08/30/18 23:46; Admin Dose 100 MG; Start 08/30/18 at 13:30 Vancomycin/Sodium Chloride 250 ml @ 125 mls/hr Q36H IVPB Last administered on 09/04/18 05:04; Admin Dose 125 MLS/HR; Start 09/01/18 at 06:00 Apixaban (Eliquis) 2.5 mg BID NGT Last administered on 09/04/18 08:57; Admin Dose 2.5 MG; Start 08/31/18 at 21:00 Midazolam HCl 50 ml @ 1 mls/hr TITRATE IV Last administered on 09/04/18 05:17; Admin Dose 5 MLS/HR; Start 09/01/18 at 11:00 Meropenem/Sodium Chloride 50 ml @ 100 mls/hr Q12 IVPB Last administered on 09/04/18 08:56; Admin Dose 100 MLS/HR; Start 09/01/18 at 21:00 Miscellaneous Information 1 ea NOTE XX ; Start 09/01/18 at 15:00 Glucose (Glutose) 15 gm Q15M PRN PO DECREASED GLUCOSE; Start 09/01/18 at 15:00 Glucose (Glutose) 22.5 gm Q15M PRN PO DECREASED GLUCOSE; Start 09/01/18 at 15:00 Dextrose (D50w Syringe) 25 ml Q15M PRN IV DECREASED GLUCOSE; Start 09/01/18 at 15:00 Dextrose (D50w Syringe) 50 ml Q15M PRN IV DECREASED GLUCOSE; Start 09/01/18 at 15:00 Glucagon (Glucagen) 1 mg Q15M PRN IM DECREASED GLUCOSE; Start 09/01/18 at 15:00 Glucose (Glutose) 15 gm Q15M PRN BUCCAL DECREASED GLUCOSE; Start 09/01/18 at 15:00 Insulin Aspart (Novolog Insulin Pen) NOVOLOG *MILD* ALGORI... Q4 SC Last administered on 09/04/18at 14:22; Admin Dose 1 UNIT; Start 09/02/18 at 01:00 Albuterol (Ventolin Hfa) 2 puff Q6H RESP THERAPY INH Last administered on 09/04/18at 15:04; Admin Dose 2 PUFF; Start 09/03/18 at 14:00 Ipratropium [place] (Atrovent Hfa) 2 puff Q6HWA RESP THERAPY INH Last administered on 09/04/18at 15:04; Admin Dose 2 PUFF; Start 09/03/18 at 14:00 Ipratropium [place] (Atrovent Hfa) 2 puff Q6H RESP THERAPY PRN INH SHORTNESS OF BREATH; Start 09/03/18 at 09:30 Albuterol (Ventolin Hfa) 2 puff Q6H RESP THERAPY PRN INH SHORTNESS OF BREATH; Start 09/03/18 at 09:30 Prednisone (Prednisone) 30 mg DAILY PO ; Start 09/05/18 at 09:00 Miscellaneous Information (*Rx Drug Level Order Reminder*) RODOLFO TR 09/05 AT 1700 1700 ONCE XX ; Start 09/05/18 at 17:00; Stop 09/05/18 at 17:01 Allergies: Coded Allergies: No Known Allergies (Verified Allergy, Unknown, 08/29/18) Past Surgical History Past Surgical Hx: coronary bypass surgery, other (left endarartectomy carotid) Social History Alcohol Use: none Smoking Status: Current every day smoker Drug Use: none Exam/Review of Systems Exam Vitals Vital Signs Date Temp Pulse Resp B/P (MAP) Pulse Ox O2 O2 Flow FiO2 Time Delivery Rate 09/04/18 80 16:00 09/04/18 98.0 19 127/57 100 Mechanical 16:00 (80) Ventilator 09/04/18 30 15:08 Intake and Output 09/03/18 09/03/18 09/04/18 1515:00 23:00 07:00 IntakeIntake Total 666.0 ml 442.5 ml 460 ml OutputOutput Total 885 ml 980 ml 665 ml BalanceBalance -219.0 ml -537.5 ml -205 ml Results Result Diagram: 09/04/18 0500 09/04/18 1500 Results 24hrs Laboratory Tests Test 09/03/18 18:07 09/03/18 21:52 09/04/18 00:14 09/04/18 05:00 Bedside Glucose 203 179 183 White Blood Count 20.0 #H Red Blood Count 3.52 L Hemoglobin 9.6 L Hematocrit 29.2 L Mean Corpuscular Volume 83.0 Mean Corpuscular 27.3 L Hemoglobin Mean Corpuscular 32.9 Hemoglobin Concent Red Cell Distribution 15.7 H Width Platelet Count 451 H Mean Platelet Volume 9.6 Immature Granulocytes % 6.100 H Neutrophils % Segmented Neutrophils 86 H % (Manual) Lymphocytes % Lymphocytes % (Manual) 6 L Monocytes % Monocytes % (Manual) 8 Eosinophils % Basophils % Nucleated Red Blood 1 H Cells % Immature Granulocytes # 1.230 H Neutrophils # Lymphocytes (Manual) 1.2 Lymphocytes # Monocytes # Monocytes # (Manual) 1.6 H Eosinophils # Basophils # Nucleated Red Blood Cells # Platelet Estimate NORMAL Giant Platelets 1 H Poikilocytosis 2+ Spherocytes 1+ Sodium Level 149 H Potassium Level 3.7 Chloride Level 113 H Carbon Dioxide Level 25 Anion Gap 11 Blood Urea Nitrogen 127 H Creatinine 2.30 H Est Glomerular Filtrat Rate mL/min Glucose Level 172 Calcium Level 9.3 Phosphorus Level 3.4 Magnesium Level 2.6 H Total Bilirubin 0.2 Direct Bilirubin 0.00 Indirect Bilirubin 0.2 Aspartate Amino 55 H Transf (AST/SGOT) Alanine 39 Aminotransferase (ALT/SG PT) Alkaline Phosphatase 107 Total Protein 5.5 L Albumin 2.6 L Globulin 2.90 Albumin/Globulin Ratio 0.89 Test 09/04/18 05:02 09/04/18 09:09 09/04/18 14:18 09/04/18 15:00 Bedside Glucose 164 158 162 Sodium Level 148 H Potassium Level 4.0 Chloride Level 115 H Carbon Dioxide Level 27 Anion Gap 6 Blood Urea Nitrogen 128 H Creatinine 2.29 H Est Glomerular Filtrat Rate mL/min Glucose Level 170 Calcium Level 9.0 Medications Medication Current Medications Diltiazem HCl (Cardizem) 30 mg Q8 PO Last administered on 08/29/18 21:47; Admin Dose 30 MG; Start 08/29/18 at 22:00; Status Hold Vancomycin HCl (Vanco Iv Per Pharmacy) VANCOMYCIN PER PHARMACY PER PROTOCOL XX ; Start 08/30/18 at 12:00 Fentanyl 100 ml @ 2.5 mls/hr TITRATE IV Last administered on 09/03/18 23:28; Admin Dose 5 MLS/HR; Start 08/30/18 at 13:30 Atenolol (Tenormin) 12.5 mg BID NGT Last administered on 09/04/18 08:55; Admin Dose 12.5 MG; Start 08/30/18 at 21:00 Digoxin (Digoxin) 0.125 mg DAILY@13 NGT Last administered on 09/03/18 12:59; Admin Dose 0.125 MG; Start 08/30/18 at 13:00; Status Hold Ferrous Sulfate (Feosol Liquid Cup) 300 mg DAILY NGT Last administered on 09/04 08:56; Admin Dose 300 MG; Start 08/31/18 at 09:00 Lansoprazole (Prevacid) 30 mg DAILY@06 NGT Last administered on 09/04/18 05:04; Admin Dose 30 MG; Start 08/31/18 at 06:00 Docusate Sodium (Colace Liquid Cup) 100 mg BID PRN NGT CONSTIPATION Last administered on 08/30/18 23:46; Admin Dose 100 MG; Start 08/30/18 at 13:30 Vancomycin/Sodium Chloride 250 ml @ 125 mls/hr Q36H IVPB Last administered on 09/04/18 05:04; Admin Dose 125 MLS/HR; Start 09/01/18 at 06:00 Apixaban (Eliquis) 2.5 mg BID NGT Last administered on 09/04/18 08:57; Admin Dose 2.5 MG; Start 08/31/18 at 21:00 Midazolam HCl 50 ml @ 1 mls/hr TITRATE IV Last administered on 09/04/18 05:17; Admin Dose 5 MLS/HR; Start 09/01/18 at 11:00 Meropenem/Sodium Chloride 50 ml @ 100 mls/hr Q12 IVPB Last administered on 09/04/18 08:56; Admin Dose 100 MLS/HR; Start 09/01/18 at 21:00 Miscellaneous Information 1 ea NOTE XX ; Start 09/01/18 at 15:00 Glucose (Glutose) 15 gm Q15M PRN PO DECREASED GLUCOSE; Start 09/01/18 at 15:00 Glucose (Glutose) 22.5 gm Q15M PRN PO DECREASED GLUCOSE; Start 09/01/18 at 15:00 Dextrose (D50w Syringe) 25 ml Q15M PRN IV DECREASED GLUCOSE; Start 09/01/18 at 15:00 Dextrose (D50w Syringe) 50 ml Q15M PRN IV DECREASED GLUCOSE; Start 09/01/18 at 15:00 Glucagon (Glucagen) 1 mg Q15M PRN IM DECREASED GLUCOSE; Start 09/01/18 at 15:00 Glucose (Glutose) 15 gm Q15M PRN BUCCAL DECREASED GLUCOSE; Start 09/01/18 at 15:00 Insulin Aspart (Novolog Insulin Pen) NOVOLOG *MILD* ALGORI... Q4 SC Last administered on 09/04/18 14:22; Admin Dose 1 UNIT; Start 09/02/18 at 01:00 Albuterol (Ventolin Hfa) 2 puff Q6H RESP THERAPY INH Last administered on 09/04/18 15:04; Admin Dose 2 PUFF; Start 09/03/18 at 14:00 Ipratropium [place] (Atrovent Hfa) 2 puff Q6HWA RESP THERAPY INH Last administered on 09/04/18 15:04; Admin Dose 2 PUFF; Start 09/03/18 at 14:00 Ipratropium [place] (Atrovent Hfa) 2 puff Q6H RESP THERAPY PRN INH SHORTNESS OF BREATH; Start 09/03/18 at 09:30 Albuterol (Ventolin Hfa) 2 puff Q6H RESP THERAPY PRN INH SHORTNESS OF BREATH; Start 09/03/18 at 09:30 Prednisone (Prednisone) 30 mg DAILY PO ; Start 09/05/18 at 09:00 Miscellaneous Information (*Rx Drug Level Order Reminder*) RODOLFO MORE 09/05 AT 1700 1700 ONCE XX ; Start 09/05/18 at 17:00; Stop 09/05/18 at 17:01 CHALO GUADALUPE Sep 04, 2018 17:21
[2018-09-04] MEDS: FENTAnyl (DRIP) 1000 mcg/100mL 100 ML IV SCH (21:24)
[2018-09-05] VITALS (42 sets, daily range): BP systolic 80–147; BP diastolic 36–82; PULSE 54–84; RESP 16–24
[2018-09-05] MEDS: INSULIN ASPART [NOVOLOG] 3 ML PEN SC SCH ×6 (00:16→21:28)
[2018-09-05] MEDS: ALBUTEROL HFA 8 GM INHALER INH SCH ×4 (01:25→19:29)
[2018-09-05] MEDS: MIDAZOLAM (DRIP) 50 mg/50 mL 50 ML IV SCH ×3 (04:06→20:02)
[2018-09-05] MEDS: LANSOPRAZOLE 30 MG CAP NGT SCH (05:06)
[2018-09-05] MEDS: IPRATROPIUM (HFA) 12.9 GM INHALER INH SCH ×3 (07:59→19:29)
[2018-09-05] MEDS: FERROUS SULFATE 60 MG/ML 5ML CUP NGT SCH (08:51)
[2018-09-05] MEDS: MEROPENEM 500MG/50 ML (PMX) 50 ML IVPB SCH ×2 (08:51→21:32)
[2018-09-05] MEDS: predniSONE 10 MG TAB PO SCH (08:52)
[2018-09-05] MEDS: APIXABAN 5 MG TABLET NGT SCH ×2 (08:52→21:24)
--- NOTE | 2018-09-05 09:11 | CONS ---
Assessment/Plan Assessment/Plan Hospital Course (Demo Recall) ID PROGRESS NOTE CURRENT ABX: DAY #7 =>Vanco IV + Merrem 09/05/18 0500 09/05/18 0500 24H INTERVAL SUMMARY * Chronically ill appearing wasted elderly man who is intubated sedated in no distress. * Indwelling: Endotracheal tube NG tube Bar catheter right femoral triple- lumen catheter DIAGNOSTIC IMAGING * 09/20 CXR:IMPRESSION: Cardiomegaly with calcified atherosclerosis in the aorta. Stable central pulmonary vascular congestion and mild interstitial prominence in both lungs. Stable patchy infiltrates throughout both lungs with moderate left pleural effusion and small to moderate right pleural effus ion. * CT of the chest revealed patchy bilateral pulmonary consolidation greater on the left concerning for multilobar pneumonia. Please see full report in the chart MICRO * 08/30/18 Sputum Cx = NORMAL Allie * 08/30/18 BCx(+) CoNS 1/2 bottles * 08/29/18 BCx (-) PHYSICAL EXAMINATION: GENERAL: VSS, NAD HEENT: AT, NC, NECK: Supple, CHEST: Rise symmetrical HEART: Pulse RRR ABDOMEN: Benign EXTREMITIES: Warm, dry SKIN: No rash, no diaphoresis ID ASSESSMENT 78 yo M admit with: 1. Severe sepsis with shock 2. Acute hypoxemic respiratory failure possibly aspiration 3. Multilobar pneumonia 4. COPD 5. History of lung cancer status post radiation, details unknown 6. Atrial fibrillation status post RVR 7. Bacteremia, cw contaminant (-)MRSA Nares ABX ALLERGIES: KNDA INVASIVES: PIV, R-FEM TLC, ETT, NGT, FC CURRENT ABX: DAY # 7 => Vanco IV + Merrem ID RECOMMENDATIONS/PLAN: 1. Continue current ABX -- steroids taper, vent management per pulmonary . Consultation Date/Type/Reason Admit Date/Time Aug 29, 2018 at 18:56 Initial Consult Date Requesting Provider: KARLEY DEAN MD Date/Time of Note DATE: 09/05/18 TIME: 09:09 Exam/Review of Systems Exam Vitals Vital Signs Date Temp Pulse Resp B/P (MAP) Pulse Ox O2 O2 Flow FiO2 Time Delivery Rate 09/05/18 68 18 142/61 100 Mechanical 06:00 (88) Ventilator 09/05/18 30 05:12 09/05/18 98.2 04:00 Intake and Output 09/04/18 09/04/1819 1515:00 23:00 07:00 IntakeIntake Total 440 ml 418.455 ml 400 ml OutputOutput Total 680 ml 660 ml 580 ml BalanceBalance -240 ml -241.545 ml -180 ml Results Result Diagram: 09/05/18 0500 09/05/18 0500 Results 24hrs Laboratory Tests Test 09/04/18 14:18 09/04/18 15:00 09/04/18 17:42 09/04/18 21:20 Bedside Glucose 162 181 165 Sodium Level 148 H Potassium Level 4.0 Chloride Level 115 H Carbon Dioxide 27 Level Anion Gap 6 Blood Urea 128 H Nitrogen Creatinine 2.29 H Est Glomerular Filtrat Rate mL/min Glucose Level 170 Calcium Level 9.0 Test 09/05/18 00:11 09/05/18 05:00 09/05/18 05:07 09/05/18 08:26 Bedside Glucose 157 151 148 White Blood Count 23.7 H Red Blood Count 3.52 L Hemoglobin 9.5 L Hematocrit 29.8 L Mean Corpuscular 84.7 Volume Mean Corpuscular 27.0 L Hemoglobin Mean Corpuscular 31.9 L Hemoglobin Concent Red Cell 15.8 H Distribution Width Platelet Count 428 H Mean Platelet 9.9 Volume Immature 9.100 H Granulocytes % Neutrophils % 74.3 Segmented 69 Neutrophils % (Manual) Band Neutrophils % 3 (Manual) Lymphocytes % 6.6 L Lymphocytes % 6 L (Manual) Reactive 1 H Lymphocytes % (Manual) Monocytes % 9.4 Monocytes % 7 (Manual) Eosinophils % 0.3 Basophils % 0.3 Metamyelocytes % 7 H (manual) Myelocytes % 6 H (Manual) Promyelocytes % 1 H (Manual) Nucleated Red 0.1 H Blood Cells % Immature 2.160 H Granulocytes # Neutrophils # 17.6 H Neutrophils # 16.5 H (Manual) Band Neutrophils # 0.7 H Lymphocytes 1.4 (Manual) Lymphocytes # 1.6 Reactive 0.2 H Lymphocytes # Monocytes # 2.2 H Monocytes # 1.6 H (Manual) Eosinophils # 0.1 Basophils # 0.1 Metamyelocytes # 1.6 H Myelocytes # 1.4 H Promyelocytes # 0.2 H Nucleated Red 0.0 Blood Cells # Platelet Estimate NORMAL Giant Platelets 1 H Polychromasia 3+ Poikilocytosis 3+ Anisocytosis 2+ Microcytosis 1+ Macrocytosis 1+ Target Cells 1+ Blood Gas Specimen Blood arterial Source Arterial Blood 09/05/2018 4:48:51 Date Drawn AM Arterial Blood pH 7.457 H (Temp corrected) Arterial Blood 34.8 L pCO2 (Temp correct) Arterial Blood pO2 96.3 H (Temp corrected) Arterial Blood 24.0 HCO3 Arterial Blood 0.5 Base Excess Arterial Blood 97.1 Oxygen Saturation Harshad Test ACCEPTAB Arterial Blood Gas Left Radial Puncture Site Arterial 0.3 Blood Carboxyhemog lobin Arterial Blood 0.4 Methemoglobin Blood Gas A-a O2 76.7 H Differential Oxyhemoglobin 96.4 Percent Blood Gas 37.0 Temperature Blood Gas 18.0 Respiration Rate Blood Gas Actual 22 Respiration Rate Blood Gas Modality VENT - AC FiO2 30.0 Blood Gas Tidal 550.0 Volume Blood Gas Low PEEP 5.0 Setting Blood Gas Notified MM Whom Blood Gas Notified 09/05/2018 4:54:34 Time AM Sodium Level 151 H Potassium Level 4.2 Chloride Level 118 H Carbon Dioxide 26 Level Anion Gap 7 Blood Urea 133 H Nitrogen Creatinine 2.07 H Est Glomerular Filtrat Rate mL/min Glucose Level 142 Calcium Level 9.2 Phosphorus Level 3.5 Magnesium Level 2.7 H Total Bilirubin 0.2 Direct Bilirubin 0.00 Indirect Bilirubin 0.2 Aspartate Amino 55 H Transf (AST/SGOT) Alanine 46 Aminotransferase ( ALT/SGPT) Alkaline 103 Phosphatase Total Protein 5.0 L Albumin 2.3 L Globulin 2.70 Albumin/Globulin 0.85 Ratio Medications Medication Current Medications Diltiazem HCl (Cardizem) 30 mg Q8 PO Last administered on 08/29/18at 21:47; Admin Dose 30 MG; Start 08/29/18 at 22:00; Status Hold Vancomycin HCl (Vanco Iv Per Pharmacy) VANCOMYCIN PER PHARMACY PER PROTOCOL XX ; Start 08/30/18 at 12:00 Fentanyl 100 ml @ 2.5 mls/hr TITRATE IV Last administered on 09/04/18at 21:24; Admin Dose 5 MLS/HR; Start 08/30/18 at 13:30 Atenolol (Tenormin) 12.5 mg BID NGT Last administered on 09/04/18at 08:55; Admin Dose 12.5 MG; Start 08/30/18 at 21:00 Digoxin (Digoxin) 0.125 mg DAILY@13 NGT Last administered on 09/03/18 12:59; Admin Dose 0.125 MG; Start 08/30/18 at 13:00; Status Hold Ferrous Sulfate (Feosol Liquid Cup) 300 mg DAILY NGT Last administered on 09/05/18 08:51; Admin Dose 300 MG; Start 08/31/18 at 09:00 Lansoprazole (Prevacid) 30 mg DAILY@06 NGT Last administered on 09/05/18 05:06; Admin Dose 30 MG; Start 08/31/18 at 06:00 Docusate Sodium (Colace Liquid Cup) 100 mg BID PRN NGT CONSTIPATION Last administered on 08/30/18at 23:46; Admin Dose 100 MG; Start 08/30/18 at 13:30 Vancomycin/Sodium Chloride 250 ml @ 125 mls/hr Q36H IVPB Last administered on 09/04/18 05:04; Admin Dose 125 MLS/HR; Start 09/01/18 at 06:00 Apixaban (Eliquis) 2.5 mg BID NGT Last administered on 09/05/18 08:52; Admin Dose 2.5 MG; Start 08/31/18 at 21:00 Midazolam HCl 50 ml @ 1 mls/hr TITRATE IV Last administered on 09/05/18 04:06; Admin Dose 5 MLS/HR; Start 09/01/18 at 11:00 Meropenem/Sodium Chloride 50 ml @ 100 mls/hr Q12 IVPB Last administered on 09/05/18 08:51; Admin Dose 100 MLS/HR; Start 09/01/18 at 21:00 Miscellaneous Information 1 ea NOTE XX ; Start 09/01/18 at 15:00 Glucose (Glutose) 15 gm Q15M PRN PO DECREASED GLUCOSE; Start 09/01/18 at 15:00 Glucose (Glutose) 22.5 gm Q15M PRN PO DECREASED GLUCOSE; Start 09/01/18 at 15:00 Dextrose (D50w Syringe) 25 ml Q15M PRN IV DECREASED GLUCOSE; Start 09/01/18 at 15:00 Dextrose (D50w Syringe) 50 ml Q15M PRN IV DECREASED GLUCOSE; Start 09/01/18 at 15:00 Glucagon (Glucagen) 1 mg Q15M PRN IM DECREASED GLUCOSE; Start 09/01/18 at 15:00 Glucose (Glutose) 15 gm Q15M PRN BUCCAL DECREASED GLUCOSE; Start 09/01/18 at 15:00 Insulin Aspart (Novolog Insulin Pen) NOVOLOG *MILD* ALGORI... Q4 SC Last administered on 09/05/18at 08:54; Admin Dose 1 UNIT; Start 09/02/18 at 01:00 Albuterol (Ventolin Hfa) 2 puff Q6H RESP THERAPY INH Last administered on 09/05/18at 07:59; Admin Dose 2 PUFF; Start 09/03/18 at 14:00 Ipratropium [place] (Atrovent Hfa) 2 puff Q6HWA RESP THERAPY INH Last administered on 09/05/18at 07:59; Admin Dose 2 PUFF; Start 09/03/18 at 14:00 Ipratropium [place] (Atrovent Hfa) 2 puff Q6H RESP THERAPY PRN INH SHORTNESS OF BREATH; Start 09/03/18 at 09:30 Albuterol (Ventolin Hfa) 2 puff Q6H RESP THERAPY PRN INH SHORTNESS OF BREATH; Start 09/03/18 at 09:30 Prednisone (Prednisone) 30 mg DAILY PO Last administered on 09/05/18at 08:52; Admin Dose 30 MG; Start 09/05/18 at 09:00 Miscellaneous Information (*Rx Drug Level Order Reminder*) RODOLFO MORE 09/05 AT 1700 1700 ONCE XX ; Start 09/05/18 at 17:00; Stop 09/05/18 at 17:01 LILY ARTHUR NP Sep 05, 2018 09:11
[2018-09-05] MEDS: ATENOLOL 25 MG TAB NGT SCH ×2 (09:26→21:24)
--- NOTE | 2018-09-05 11:02 | PN ---
Date/Time of Note Date/Time of Note DATE: 09/05/18 TIME: 10:58 Assessment/Plan VTE Prophylaxis Risk score (from Ns)>0 risk: 15 [place] [facility] [place] Pharmacological prophylaxis: NA/contraindicated Pharm contraindication: low risk/ambulating Lines/Catheters IV C[facility]ter Type (from [facility] Central Line Central line still needed: Yes Urinary Cath still in place: Yes Reason Cath still needed: urinary retention Assessment/Plan Assessment/Plan Assessment/Plan 1 shock likley duue to. Sepsis /pneumonia 2. ALOC, lethargic.Now sedated follows commands off sedation 3. Atrial fibrillation, now flutter , controlled 4. Hypoxic respiratory failure. Respiratory acidosis, resolved. 5. Bilateral pneumonia 6. Congestive heart failure, EF 35 to 40%, 7. Hx of right side lung cancer 8. JAMES on chronic kidney disease, creatinine baseline 1.6. With elevated BUN and creatinine ratio likely ATN secondary to septic shock now Cr downtrending however BUN still high, GOOD UOP 9. Hx of pleural effusions, right and left and numerous thoracentesis 10. Bilateral pleural effusion 11. Hx of hypertension, now on BP support 12. Hyperlipidemia 13 + bacteremia however new bld cx neg 14 Hypernatremia likley hypovolemic with FWF 2.8 L Assessment/Plan - fwf and D5W -c/w ICU care -Monitor lytes/urine output no emergent indication of hemodialysis, cr downtrending , UOP 80 cc/hr - keep euvolemic - ? thoracentesis when extubated discussed with Dr Guajardo - replete K -cw pred 30 - Hb 8.3 today>9.6 -pulmonary consult dr Guajardo appreciated -Cardiology consult dr Hall -With vancomycin/meropenam, -DVT proph. Eliquiz 2.5 mg GT BID -GI proph. Protonix GT -Off pressors. -c/w tube feed Result Diagram: 09/05/18 0500 09/05/18 0500 Results 24hrs Laboratory Tests Test 09/04/18 14:18 09/04/18 15:00 09/04/18 17:42 09/04/18 21:20 Bedside Glucose 162 181 165 Sodium Level 148 H Potassium Level 4.0 Chloride Level 115 H Carbon Dioxide 27 Level Anion Gap 6 Blood Urea 128 H Nitrogen Creatinine 2.29 H Est Glomerular Filtrat Rate mL/min Glucose Level 170 Calcium Level 9.0 Test 09/05/18 00:11 09/05/18 05:00 09/05/18 05:07 09/05/18 08:26 Bedside Glucose 157 151 148 White Blood Count 23.7 H Red Blood Count 3.52 L Hemoglobin 9.5 L Hematocrit 29.8 L Mean Corpuscular 84.7 Volume Mean Corpuscular 27.0 L Hemoglobin Mean Corpuscular 31.9 L Hemoglobin Concent Red Cell 15.8 H Distribution Width Platelet Count 428 H Mean Platelet 9.9 Volume Immature 9.100 H Granulocytes % Neutrophils % 74.3 Segmented 69 Neutrophils % (Manual) Band Neutrophils % 3 (Manual) Lymphocytes % 6.6 L Lymphocytes % 6 L (Manual) Reactive 1 H Lymphocytes % (Manual) Monocytes % 9.4 Monocytes % 7 (Manual) Eosinophils % 0.3 Basophils % 0.3 Metamyelocytes % 7 H (manual) Myelocytes % 6 H (Manual) Promyelocytes % 1 H (Manual) Nucleated Red 0.1 H Blood Cells % Immature 2.160 H Granulocytes # Neutrophils # 17.6 H Neutrophils # 16.5 H (Manual) Band Neutrophils # 0.7 H Lymphocytes 1.4 (Manual) Lymphocytes # 1.6 Reactive 0.2 H Lymphocytes # Monocytes # 2.2 H Monocytes # 1.6 H (Manual) Eosinophils # 0.1 Basophils # 0.1 Metamyelocytes # 1.6 H Myelocytes # 1.4 H Promyelocytes # 0.2 H Nucleated Red 0.0 Blood Cells # Platelet Estimate NORMAL Giant Platelets 1 H Polychromasia 3+ Poikilocytosis 3+ Anisocytosis 2+ Microcytosis 1+ Macrocytosis 1+ Target Cells 1+ Blood Gas Specimen Blood arterial Source Arterial Blood 09/05/2018 4:48:51 Date Drawn AM Arterial Blood pH 7.457 H (Temp corrected) Arterial Blood 34.8 L pCO2 (Temp correct) Arterial Blood pO2 96.3 H (Temp corrected) Arterial Blood 24.0 HCO3 Arterial Blood 0.5 Base Excess Arterial Blood 97.1 Oxygen Saturation Harshad Test ACCEPTAB Arterial Blood Gas Left Radial Puncture Site Arterial 0.3 Blood Carboxyhemog lobin Arterial Blood 0.4 Methemoglobin Blood Gas A-a O2 76.7 H Differential Oxyhemoglobin 96.4 Percent Blood Gas 37.0 Temperature Blood Gas 18.0 Respiration Rate Blood Gas Actual 22 Respiration Rate Blood Gas Modality VENT - AC FiO2 30.0 Blood Gas Tidal 550.0 Volume Blood Gas Low PEEP 5.0 Setting Blood Gas Notified MM Whom Blood Gas Notified 09/05/2018 4:54:34 Time AM Sodium Level 151 H Potassium Level 4.2 Chloride Level 118 H Carbon Dioxide 26 Level Anion Gap 7 Blood Urea 133 H Nitrogen Creatinine 2.07 H Est Glomerular Filtrat Rate mL/min Glucose Level 142 Calcium Level 9.2 Phosphorus Level 3.5 Magnesium Level 2.7 H Total Bilirubin 0.2 Direct Bilirubin 0.00 Indirect Bilirubin 0.2 Aspartate Amino 55 H Transf (AST/SGOT) Alanine 46 Aminotransferase ( ALT/SGPT) Alkaline 103 Phosphatase Total Protein 5.0 L Albumin 2.3 L Globulin 2.70 Albumin/Globulin 0.85 Ratio Subjective 24 Hr Interval Summary Free Text/Dictation Off pressors. On sedation Currently on FiO2 30% Room trending up to 151 Urine output 2.2 L yesterday was net -711 Exam/Review of Systems Exam Vitals Vital Signs Date Temp Pulse Resp B/P (MAP) Pulse Ox O2 O2 Flow FiO2 Time Delivery Rate 09/05/18 66 08:00 09/05/18 18 142/61 100 Mechanical 06:00 (88) Ventilator 09/05/18 30 05:12 09/05/18 98.2 04:00 Intake and Output 09/04/18 09/04/18 09/05/18 1515:00 23:00 07:00 IntakeIntake Total 440 ml 418.455 ml 400 ml OutputOutput Total 680 ml 660 ml 580 ml BalanceBalance -240 ml -241.545 ml -180 ml Exam xam Orally intubated, . moves extremitites when off sedation Constitutional: frail Neck: supple Respiratory: diminished breath sounds Cardiovascular: regular rate and rhythm Gastrointestinal: soft Genitourinary - Male: other (yañez) Skin: ecchymosis RT FEM LINE Results Results 24hrs Laboratory Tests Test 09/04/18 14:18 09/04/18 15:00 09/04/18 17:42 09/04/18 21:20 Bedside Glucose 162 181 165 Sodium Level 148 H Potassium Level 4.0 Chloride Level 115 H Carbon Dioxide 27 Level Anion Gap 6 Blood Urea 128 H Nitrogen Creatinine 2.29 H Est Glomerular Filtrat Rate mL/min Glucose Level 170 Calcium Level 9.0 Test 09/05/18 00:11 09/05/18 05:00 09/05/18 05:07 09/05/18 08:26 Bedside Glucose 157 151 148 White Blood Count 23.7 H Red Blood Count 3.52 L Hemoglobin 9.5 L Hematocrit 29.8 L Mean Corpuscular 84.7 Volume Mean Corpuscular 27.0 L Hemoglobin Mean Corpuscular 31.9 L Hemoglobin Concent Red Cell 15.8 H Distribution Width Platelet Count 428 H Mean Platelet 9.9 Volume Immature 9.100 H Granulocytes % Neutrophils % 74.3 Segmented 69 Neutrophils % (Manual) Band Neutrophils % 3 (Manual) Lymphocytes % 6.6 L Lymphocytes % 6 L (Manual) Reactive 1 H Lymphocytes % (Manual) Monocytes % 9.4 Monocytes % 7 (Manual) Eosinophils % 0.3 Basophils % 0.3 Metamyelocytes % 7 H (manual) Myelocytes % 6 H (Manual) Promyelocytes % 1 H (Manual) Nucleated Red 0.1 H Blood Cells % Immature 2.160 H Granulocytes # Neutrophils # 17.6 H Neutrophils # 16.5 H (Manual) Band Neutrophils # 0.7 H Lymphocytes 1.4 (Manual) Lymphocytes # 1.6 Reactive 0.2 H Lymphocytes # Monocytes # 2.2 H Monocytes # 1.6 H (Manual) Eosinophils # 0.1 Basophils # 0.1 Metamyelocytes # 1.6 H Myelocytes # 1.4 H Promyelocytes # 0.2 H Nucleated Red 0.0 Blood Cells # Platelet Estimate NORMAL Giant Platelets 1 H Polychromasia 3+ Poikilocytosis 3+ Anisocytosis 2+ Microcytosis 1+ Macrocytosis 1+ Target Cells 1+ Blood Gas Specimen Blood arterial Source Arterial Blood 09/05/2018 4:48:51 Date Drawn AM Arterial Blood pH 7.457 H (Temp corrected) Arterial Blood 34.8 L pCO2 (Temp correct) Arterial Blood pO2 96.3 H (Temp corrected) Arterial Blood 24.0 HCO3 Arterial Blood 0.5 Base Excess Arterial Blood 97.1 Oxygen Saturation Harshad Test ACCEPTAB Arterial Blood Gas Left Radial Puncture Site Arterial 0.3 Blood Carboxyhemog lobin Arterial Blood 0.4 Methemoglobin Blood Gas A-a O2 76.7 H Differential Oxyhemoglobin 96.4 Percent Blood Gas 37.0 Temperature Blood Gas 18.0 Respiration Rate Blood Gas Actual 22 Respiration Rate Blood Gas Modality VENT - AC FiO2 30.0 Blood Gas Tidal 550.0 Volume Blood Gas Low PEEP 5.0 Setting Blood Gas Notified MM Whom Blood Gas Notified 09/05/2018 4:54:34 Time AM Sodium Level 151 H Potassium Level 4.2 Chloride Level 118 H Carbon Dioxide 26 Level Anion Gap 7 Blood Urea 133 H Nitrogen Creatinine 2.07 H Est Glomerular Filtrat Rate mL/min Glucose Level 142 Calcium Level 9.2 Phosphorus Level 3.5 Magnesium Level 2.7 H Total Bilirubin 0.2 Direct Bilirubin 0.00 Indirect Bilirubin 0.2 Aspartate Amino 55 H Transf (AST/SGOT) Alanine 46 Aminotransferase ( ALT/SGPT) Alkaline 103 Phosphatase Total Protein 5.0 L Albumin 2.3 L Globulin 2.70 Albumin/Globulin 0.85 Ratio Medications Medication Current Medications Diltiazem HCl (Cardizem) 30 mg Q8 PO Last administered on 08/29/18 21:47; Admin Dose 30 MG; Start 08/29/18 at 22:00; Status Hold Vancomycin HCl (Vanco Iv Per Pharmacy) VANCOMYCIN PER PHARMACY PER PROTOCOL XX ; Start 08/30/18 at 12:00 Fentanyl 100 ml @ 2.5 mls/hr TITRATE IV Last administered on 09/04/18 21:24; Admin Dose 5 MLS/HR; Start 08/30/18 at 13:30 Atenolol (Tenormin) 12.5 mg BID NGT Last administered on 09/05/18 09:26; Admin Dose 12.5 MG; Start 08/30/18 at 21:00 Digoxin (Digoxin) 0.125 mg DAILY@13 NGT Last administered on 09/03/18 12:59; Admin Dose 0.125 MG; Start 08/30/18 at 13:00; Status Hold Ferrous Sulfate (Feosol Liquid Cup) 300 mg DAILY NGT Last administered on 09/05/18 08:51; Admin Dose 300 MG; Start 08/31/18 at 09:00 Lansoprazole (Prevacid) 30 mg DAILY@06 NGT Last administered on 09/05/18 05:06; Admin Dose 30 MG; Start 08/31/18 at 06:00 Docusate Sodium (Colace Liquid Cup) 100 mg BID PRN NGT CONSTIPATION Last administered on 6/28/19at 23:46; Admin Dose 100 MG; Start 08/30/18 at 13:30 Vancomycin/Sodium Chloride 250 ml @ 125 mls/hr Q36H IVPB Last administered on 09/04/18at 05:04; Admin Dose 125 MLS/HR; Start 09/01/18 at 06:00 Apixaban (Eliquis) 2.5 mg BID NGT Last administered on 09/05/18at 08:52; Admin Dose 2.5 MG; Start 08/31/18 at 21:00 Midazolam HCl 50 ml @ 1 mls/hr TITRATE IV Last administered on 09/05/18at 04:06; Admin Dose 5 MLS/HR; Start 09/01/18 at 11:00 Meropenem/Sodium Chloride 50 ml @ 100 mls/hr Q12 IVPB Last administered on 09/05/18at 08:51; Admin Dose 100 MLS/HR; Start 09/01/18 at 21:00 Miscellaneous Information 1 ea NOTE XX ; Start 09/01/18 at 15:00 Glucose (Glutose) 15 gm Q15M PRN PO DECREASED GLUCOSE; Start 09/01/18 at 15:00 Glucose (Glutose) 22.5 gm Q15M PRN PO DECREASED GLUCOSE; Start 09/01/18 at 15:00 Dextrose (D50w Syringe) 25 ml Q15M PRN IV DECREASED GLUCOSE; Start 09/01/18 at 15:00 Dextrose (D50w Syringe) 50 ml Q15M PRN IV DECREASED GLUCOSE; Start 09/01/18 at 15:00 Glucagon (Glucagen) 1 mg Q15M PRN IM DECREASED GLUCOSE; Start 09/01/18 at 15:00 Glucose (Glutose) 15 gm Q15M PRN BUCCAL DECREASED GLUCOSE; Start 09/01/18 at 15:00 Insulin Aspart (Novolog Insulin Pen) NOVOLOG *MILD* ALGORI... Q4 SC Last admin istered on 09/05/18at 08:54; Admin Dose 1 UNIT; Start 09/02/18 at 01:00 Albuterol (Ventolin Hfa) 2 puff Q6H RESP THERAPY INH Last administered on 09/05/18at 07:59; Admin Dose 2 PUFF; Start 09/03/18 at 14:00 Ipratropium [place] (Atrovent Hfa) 2 puff Q6HWA RESP THERAPY INH Last administered on 09/05/18at 07:59; Admin Dose 2 PUFF; Start 09/03/18 at 14:00 Ipratropium [place] (Atrovent Hfa) 2 puff Q6H RESP THERAPY PRN INH SHORTNESS OF BREATH; Start 09/03/18 at 09:30 Albuterol (Ventolin Hfa) 2 puff Q6H RESP THERAPY PRN INH SHORTNESS OF BREATH; Start 09/03/18 at 09:30 Prednisone (Prednisone) 30 mg DAILY PO Last administered on 09/05/18at 08:52; Admin Dose 30 MG; Start 09/05/18 at 09:00 Miscellaneous Information (*Rx Drug Level Order Reminder*) VANCO TR 09/05 AT 1700 1700 ONCE XX ; Start 09/05/18 at 17:00; Stop 09/05/18 at 17:01 FIDEL GAVIN MD Sep 05, 2018 11:02
[2018-09-05] MEDS: DEXTROSE 5% 1,000 ML IV SCH (11:50)
--- NOTE | 2018-09-05 13:20 | CONS ---
Consult Date/Type/Reason Admit Date/Time Aug 29, 2018 at 18:56 Initial Consult Date Type of Consultation: Pulm/CCM Requesting Provider: KARLEY DEAN MD Date/Time of Note DATE: 09/05/18 TIME: 13:16 Subjective Sedated on the vent. No overnight events noted. Objective Vitals Vital Signs Date Temp Pulse Resp B/P (MAP) Pulse Ox O2 O2 Flow FiO2 Time Delivery Rate 09/05/18 81 12:00 09/05/18 120/41 98 Mechanical 11:00 (67) Ventilator 09/05/18 98.0 08:00 09/05/18 30 08:00 Intake and Output 09/04/18 09/04/18 09/05/18 1515:00 23:00 07:00 IntakeIntake Total 440 ml 418.455 ml 450 ml OutputOutput Total 680 ml 660 ml 655 ml BalanceBalance -240 ml -241.545 ml -205 ml Exam GENERAL: Elderly-appearing gentleman, now intubated on mechanical ventilation, appears comfortable at rest, no acute distress. NECK: Supple. No JVD or lymphadenopathy. CARDIAC: Sounds S1, S2, no added sounds or murmurs. CHEST: Diminished air entry bilaterally with occasional rhonchi ABDOMEN: Soft, nontender. No guarding or rebound. EXTREMITIES: No cyanosis or clubbing. 1+ edema. Results/Medications Result Diagram: 09/05/18 0500 09/05/18 0500 Results 24 hrs Laboratory Tests Test 09/04/18 14:18 09/04/18 15:00 09/04/18 17:42 09/04/18 21:20 Bedside Glucose 162 181 165 Sodium Level 148 H Potassium Level 4.0 Chloride Level 115 H Carbon Dioxide 27 Level Anion Gap 6 Blood Urea 128 H Nitrogen Creatinine 2.29 H Est Glomerular Filtrat Rate mL/min Glucose Level 170 Calcium Level 9.0 Test 09/05/18 00:11 09/05/18 05:00 09/05/18 05:07 09/05/18 08:26 Bedside Glucose 157 151 148 White Blood Count 23.7 H Red Blood Count 3.52 L Hemoglobin 9.5 L Hematocrit 29.8 L Mean Corpuscular 84.7 Volume Mean Corpuscular 27.0 L Hemoglobin Mean Corpuscular 31.9 L Hemoglobin Concent Red Cell 15.8 H Distribution Width Platelet Count 428 H Mean Platelet 9.9 Volume Immature 9.100 H Granulocytes % Neutrophils % 74.3 Segmented 69 Neutrophils % (Manual) Band Neutrophils % 3 (Manual) Lymphocytes % 6.6 L Lymphocytes % 6 L (Manual) Reactive 1 H Lymphocytes % (Manual) Monocytes % 9.4 Monocytes % 7 (Manual) Eosinophils % 0.3 Basophils % 0.3 Metamyelocytes % 7 H (manual) Myelocytes % 6 H (Manual) Promyelocytes % 1 H (Manual) Nucleated Red 0.1 H Blood Cells % Immature 2.160 H Granulocytes # Neutrophils # 17.6 H Neutrophils # 16.5 H (Manual) Band Neutrophils # 0.7 H Lymphocytes 1.4 (Manual) Lymphocytes # 1.6 Reactive 0.2 H Lymphocytes # Monocytes # 2.2 H Monocytes # 1.6 H (Manual) Eosinophils # 0.1 Basophils # 0.1 Metamyelocytes # 1.6 H Myelocytes # 1.4 H Promyelocytes # 0.2 H Nucleated Red 0.0 Blood Cells # Platelet Estimate NORMAL Giant Platelets 1 H Polychromasia 3+ Poikilocytosis 3+ Anisocytosis 2+ Microcytosis 1+ Macrocytosis 1+ Target Cells 1+ Blood Gas Specimen Blood arterial Source Arterial Blood 09/05/2018 4:48:51 Date Drawn AM Arterial Blood pH 7.457 H (Temp corrected) Arterial Blood 34.8 L pCO2 (Temp correct) Arterial Blood pO2 96.3 H (Temp corrected) Arterial Blood 24.0 HCO3 Arterial Blood 0.5 Base Excess Arterial Blood 97.1 Oxygen Saturation Harshad Test ACCEPTAB Arterial Blood Gas Left Radial Puncture Site Arterial 0.3 Blood Carboxyhemog lobin Arterial Blood 0.4 Methemoglobin Blood Gas A-a O2 76.7 H Differential Oxyhemoglobin 96.4 Percent Blood Gas 37.0 Temperature Blood Gas 18.0 Respiration Rate Blood Gas Actual 22 Respiration Rate Blood Gas Modality VENT - AC FiO2 30.0 Blood Gas Tidal 550.0 Volume Blood Gas Low PEEP 5.0 Setting Blood Gas Notified MM Whom Blood Gas Notified 09/05/2018 4:54:34 Time AM Sodium Level 151 H Potassium Level 4.2 Chloride Level 118 H Carbon Dioxide 26 Level Anion Gap 7 Blood Urea 133 H Nitrogen Creatinine 2.07 H Est Glomerular Filtrat Rate mL/min Glucose Level 142 Calcium Level 9.2 Phosphorus Level 3.5 Magnesium Level 2.7 H Total Bilirubin 0.2 Direct Bilirubin 0.00 Indirect Bilirubin 0.2 Aspartate Amino 55 H Transf (AST/SGOT) Alanine 46 Aminotransferase ( ALT/SGPT) Alkaline 103 Phosphatase Total Protein 5.0 L Albumin 2.3 L Globulin 2.70 Albumin/Globulin 0.85 Ratio Home Meds Reported Medications Mupirocin Calcium* (Mupirocin*) 2% - 15 Gram Cream..g., 1 APPLIC TOP BID, #1 TUB 08/29/18 Ondansetron Hcl* (Zofran*) 4 Mg Tab, 4 MG PO Q6H PRN for NAUSEA AND OR VOMITING, TAB 08/29/18 Ipratropium-Albuterol (Ipratropium-Albuterol) 0.5-3 Mg/3 Ml Ampul.neb, 3 ML INHALATION Q6 PRN for WHEEZING AND SOB, #30 VIAL 08/29/18 Ferrous Sulfate* (Ferrous Sulfate*) 325 Mg Tabec, 325 MG PO DAILY, TAB 08/29/18 Apixaban* (Eliquis*) 5 Mg Tablet, 5 MG PO BID, TAB 08/29/18 Docusate Sodium* (Colace*) 100 Mg Capsule, 100 MG PO BID, #60 CAP 08/29/18 Bisacodyl* (Bisacodyl*) 5 Mg Tablet.dr, 10 MG PO BID PRN for CONSTIPATION, TAB 08/29/18 Tuberculin,Purif.prot.deriv. (Aplisol) 5 Tub Unit/0.1 Ml Vial, 5 TUB ID ONCE, VIAL START DATE 08/31/18 -- END DATE 09/01/18 08/29/18 Acetaminophen* (Acetaminophen*) 650 Mg Tablet, 650 MG PO Q6H PRN for PAIN LEVEL 1-12/12, #30 TAB AND FEVER>101F 08/29/18 Guaifenesin (Guaifenesin) 100 Mg/5 Ml Liquid, 10 ML PO NEEDED PRN for COUGH, ML 08/13/18 Diltiazem Hcl* (Cardizem*) 30 Mg Tablet, 30 MG PO Q8 for CHF, #90 TAB HOLD IF SBP<110 OR HR<60 08/13/18 Aspirin* (Aspirin* EC) 81 Mg Tablet.dr, 81 MG PO DAILY, TAB 08/13/18 Digoxin* (Digitek*) 125 Mcg Tablet, 0.125 MG PO DAILY, TAB HOLD IF SBP<110 OR HR<60 08/13/18 Atenolol* (Atenolol*) 25 Mg Tablet, 12.5 MG PO BID, #60 TAB HOLD IF SBP<110 OR HR<60 08/13/18 Furosemide* (Furosemide*) 40 Mg Tablet, 40 MG PO DAILY, TAB HOLD IF SBP<110 OR HR<60 08/13/18 Magnesium Hydroxide* (Milk Of Magnesia*) 400 Mg/5 Ml Oral.susp, 30 ML PO DAILY, ML 08/13/18 Potassium Chloride* (Klor-Con*) 20 Meq Tabsr, 20 MEQ PO DAILY, TAB.SA 07/11/18 Pantoprazole* (Pantoprazole*) 40 Mg Tablet.dr, 40 MG PO DAILY, TAB 07/11/18 Discontinued Reported Medications Albuterol Sulfate* (Proair HFA*) 8.5 Gm Hfa.aer.ad, 2 PUFF INH Q6H PRN for WHEEZING AND SOB, #1 INHALER 08/13/18 Hydrocortisone* Topical (Hydrocortisone* Topical) 2.5%-28.3 Gm Cream..g., 1 APPLIC TOP BID PRN for ITCHING, TUB 08/13/18 Acetaminophen* (Acetaminophen*) 500 MG Extra Strength Tablet, 500 MG PO Q6H PRN for PAIN AND OR ELEVATED TEMP, TAB 08/13/18 Dabigatran Etexilate Mesylate* (Pradaxa*) 75 Mg Cap, 75 MG PO BID, CAP 07/11/18 Discontinued Scripts Ipratropium-Albuterol (Ipratropium-Albuterol) 0.5-3 Mg/3 Ml Ampul.neb, 3 ML HHN Q4H RESP THERAPY for 30 Days Prov:JASPER SAHU 07/19/18 Medications Current Medications Diltiazem HCl (Cardizem) 30 mg Q8 PO Last administered on 08/29/18at 21:47; Admin Dose 30 MG; Start 08/29/18 at 22:00; Status Hold Vancomycin HCl (Vanco Iv Per Pharmacy) VANCOMYCIN PER PHARMACY PER PROTOCOL XX ; Start 08/30/18 at 12:00 Fentanyl 100 ml @ 2.5 mls/hr TITRATE IV Last administered on 09/04/18at 21:24; Admin Dose 5 MLS/HR; Start 08/30/18 at 13:30 Atenolol (Tenormin) 12.5 mg BID NGT Last administered on 09/05/18 09:26; Admin Dose 12.5 MG; Start 08/30/18 at 21:00 Digoxin (Digoxin) 0.125 mg DAILY@13 NGT Last administered on 09/03/18 12:59; Admin Dose 0.125 MG; Start 08/30/18 at 13:00; Status Hold Ferrous Sulfate (Feosol Liquid Cup) 300 mg DAILY NGT Last administered on 09/05/18 08:51; Admin Dose 300 MG; Start 08/31/18 at 09:00 Lansoprazole (Prevacid) 30 mg DAILY@06 NGT Last administered on 09/05/18 05:06; Admin Dose 30 MG; Start 08/31/18 at 06:00 Docusate Sodium (Colace Liquid Cup) 100 mg BID PRN NGT CONSTIPATION Last administered on 08/30/18 23:46; Admin Dose 100 MG; Start 08/30/18 at 13:30 Vancomycin/Sodium Chloride 250 ml @ 125 mls/hr Q36H IVPB Last administered on 09/04/18 05:04; Admin Dose 125 MLS/HR; Start 09/01/18 at 06:00 Apixaban (Eliquis) 2.5 mg BID NGT Last administered on 09/05/18 08:52; Admin Dose 2.5 MG; Start 08/31/18 at 21:00 Midazolam HCl 50 ml @ 1 mls/hr TITRATE IV Last administered on 09/05/18 11:50; Admin Dose 7 MLS/HR; Start 09/01/18 at 11:00 Meropenem/Sodium Chloride 50 ml @ 100 mls/hr Q12 IVPB Last administered on 09/05/18 08:51; Admin Dose 100 MLS/HR; Start 09/01/18 at 21:00 Miscellaneous Information 1 ea NOTE XX ; Start 09/01/18 at 15:00 Glucose (Glutose) 15 gm Q15M PRN PO DECREASED GLUCOSE; Start 09/01/18 at 15:00 Glucose (Glutose) 22.5 gm Q15M PRN PO DECREASED GLUCOSE; Start 09/01/18 at 15:00 Dextrose (D50w Syringe) 25 ml Q15M PRN IV DECREASED GLUCOSE; Start 09/01/18 at 15:00 Dextrose (D50w Syringe) 50 ml Q15M PRN IV DECREASED GLUCOSE; Start 09/01/18 at 15:00 Glucagon (Glucagen) 1 mg Q15M PRN IM DECREASED GLUCOSE; Start 09/01/18 at 15:00 Glucose (Glutose) 15 gm Q15M PRN BUCCAL DECREASED GLUCOSE; Start 09/01/18 at 15:00 Insulin Aspart (Novolog Insulin Pen) NOVOLOG *MILD* ALGORI... Q4 SC Last administered on 09/05/18at 08:54; Admin Dose 1 UNIT; Start 09/02/18 at 01:00 Albuterol (Ventolin Hfa) 2 puff Q6H RESP THERAPY INH Last administered on 09/05/18at 12:57; Admin Dose 2 PUFF; Start 09/03/18 at 14:00 Ipratropium [place] (Atrovent Hfa) 2 puff Q6HWA RESP THERAPY INH Last administered on 09/05/18at 12:57; Admin Dose 2 PUFF; Start 09/03/18 at 14:00 Ipratropium [place] (Atrovent Hfa) 2 puff Q6H RESP THERAPY PRN INH SHORTNESS OF BREATH; Start 09/03/18 at 09:30 Albuterol (Ventolin Hfa) 2 puff Q6H RESP THERAPY PRN INH SHORTNESS OF BREATH; Start 09/03/18 at 09:30 Prednisone (Prednisone) 30 mg DAILY PO Last administered on 09/05/18at 08:52; Admin Dose 30 MG; Start 09/05/18 at 09:00 Miscellaneous Information (*Rx Drug Level Order Reminder*) VANCO TR 09/05 AT 1700 1700 ONCE XX ; Start 09/05/18 at 17:00; Stop 09/05/18 at 17:01 Dextrose 1,000 ml @ 40 mls/hr Q24H IV Last administered on 09/05/18at 11:50; Admin Dose 40 MLS/HR; Start 09/05/18 at 11:00 Assessment/Plan Assessment/Plan (Daily) IMP: 1. Hypoxemic Respiratory Failure 2. Probable aspiration pneumonia. Bilateral infiltrates with left pleural effusion. 3. Chronic obstructive pulmonary disease exacerbation. 4. Septic shock 5. Renal insufficiency 6. History of lung cancer--query metastatic disease PLAN: 1. Continue vasopressors to MAP > 65 mm Hg 2. Vent support 3. Broad-spectrum antibiotics. 4. Would consider diagnostic thoracentesis based on patients' goals of care. With that said, a diagnostic thoracentesis would be helpful if it confirms ca ncer. 7. Transition to Precedex and fentanyl for sedation Critical care time 40 minutes. JOSEE MCCLOUD MD Sep 05, 2018 13:20
[2018-09-05] MEDS ORDERED: LIDOCAINE 1% (MPF) 5 ML VIAL SC ONE (14:00)
--- NOTE | 2018-09-05 14:58 | CONS ---
Consult Date/Type/Reason Admit Date/Time Aug 29, 2018 at 18:56 Initial Consult Date Type of Consultation: Pulm/CCM Requesting Provider: KARLEY DEAN MD Date/Time of Note DATE: 09/05/18 TIME: 14:56 Subjective NO acute events - pt still intubated - in a. fib - rate controlled - will monitor clinically now ROS: No fever, no chills, no nausea, no vomiting, no diarrhea/constipation - per nurse + SOB Objective Vitals Vital Signs Date Temp Pulse Resp B/P (MAP) Pulse Ox O2 O2 Flow FiO2 Time Delivery Rate 09/05/18 73 18 123/36 98 13:30 (65) 09/05/18 Mechanical 13:00 Ventilator 09/05/18 98.0 12:00 09/05/18 30 08:00 Intake and Output 09/04/18 09/04/18 09/05/18 1414:59 22:59 06:59 IntakeIntake Total 440 ml 418.455 ml 450 ml OutputOutput Total 700 ml 640 ml 680 ml BalanceBalance -260 ml -221.545 ml -230 ml Exam General: WN/WD/NAD, AOx 0 HEENT: Unicetric/atraumatic/EOMI (does not follow commands) - intubated NECK: JVD elevated, no thyromegaly Lymph: no lymphadenopathy - NGT in HEART: Ir Irregular with no S3, II/ systolic murmur at apex LUNGS: Coarse sounds ABD: soft, NT, ND, +BS : Intact Neuro: non focal SKIN: chronic changes EXT: trace edema Results/Medications Result Diagram: 09/05/18 0500 09/05/18 0500 Results 24 hrs Laboratory Tests Test 09/04/18 15:00 09/04/18 17:42 09/04/18 21:20 09/05/18 00:11 Sodium Level 148 H Potassium Level 4.0 Chloride Level 115 H Carbon Dioxide 27 Level Anion Gap 6 Blood Urea 128 H Nitrogen Creatinine 2.29 H Est Glomerular Filtrat Rate mL/min Glucose Level 170 Calcium Level 9.0 Bedside Glucose 181 165 157 Test 09/05/18 05:00 09/05/18 05:07 09/05/18 08:26 09/05/18 13:17 White Blood Count 23.7 H Red Blood Count 3.52 L Hemoglobin 9.5 L Hematocrit 29.8 L Mean Corpuscular 84.7 Volume Mean Corpuscular 27.0 L Hemoglobin Mean Corpuscular 31.9 L Hemoglobin Concent Red Cell 15.8 H Distribution Width Platelet Count 428 H Mean Platelet 9.9 Volume Immature 9.100 H Granulocytes % Neutrophils % 74.3 Segmented 69 Neutrophils % (Manual) Band Neutrophils % 3 (Manual) Lymphocytes % 6.6 L Lymphocytes % 6 L (Manual) Reactive 1 H Lymphocytes % (Manual) Monocytes % 9.4 Monocytes % 7 (Manual) Eosinophils % 0.3 Basophils % 0.3 Metamyelocytes % 7 H (manual) Myelocytes % 6 H (Manual) Promyelocytes % 1 H (Manual) Nucleated Red 0.1 H Blood Cells % Immature 2.160 H Granulocytes # Neutrophils # 17.6 H Neutrophils # 16.5 H (Manual) Band Neutrophils # 0.7 H Lymphocytes 1.4 (Manual) Lymphocytes # 1.6 Reactive 0.2 H Lymphocytes # Monocytes # 2.2 H Monocytes # 1.6 H (Manual) Eosinophils # 0.1 Basophils # 0.1 Metamyelocytes # 1.6 H Myelocytes # 1.4 H Promyelocytes # 0.2 H Nucleated Red 0.0 Blood Cells # Platelet Estimate NORMAL Giant Platelets 1 H Polychromasia 3+ Poikilocytosis 3+ Anisocytosis 2+ Microcytosis 1+ Macrocytosis 1+ Target Cells 1+ Blood Gas Specimen Blood arterial Source Arterial Blood 09/05/2018 4:48:51 Date Drawn AM Arterial Blood pH 7.457 H (Temp corrected) Arterial Blood 34.8 L pCO2 (Temp correct) Arterial Blood pO2 96.3 H (Temp corrected) Arterial Blood 24.0 HCO3 Arterial Blood 0.5 Base Excess Arterial Blood 97.1 Oxygen Saturation Harshad Test ACCEPTAB Arterial Blood Gas Left Radial Puncture Site Arterial 0.3 Blood Carboxyhemog lobin Arterial Blood 0.4 Methemoglobin Blood Gas A-a O2 76.7 H Differential Oxyhemoglobin 96.4 Percent Blood Gas 37.0 Temperature Blood Gas 18.0 Respiration Rate Blood Gas Actual 22 Respiration Rate Blood Gas Modality VENT - AC FiO2 30.0 Blood Gas Tidal 550.0 Volume Blood Gas Low PEEP 5.0 Setting Blood Gas Notified MM Whom Blood Gas Notified 09/05/2018 4:54:34 Time AM Sodium Level 151 H Potassium Level 4.2 Chloride Level 118 H Carbon Dioxide 26 Level Anion Gap 7 Blood Urea 133 H Nitrogen Creatinine 2.07 H Est Glomerular Filtrat Rate mL/min Glucose Level 142 Calcium Level 9.2 Phosphorus Level 3.5 Magnesium Level 2.7 H Total Bilirubin 0.2 Direct Bilirubin 0.00 Indirect Bilirubin 0.2 Aspartate Amino 55 H Transf (AST/SGOT) Alanine 46 Aminotransferase ( ALT/SGPT) Alkaline 103 Phosphatase Total Protein 5.0 L Albumin 2.3 L Globulin 2.70 Albumin/Globulin 0.85 Ratio Bedside Glucose 151 148 186 Home Meds Reported Medications Mupirocin Calcium* (Mupirocin*) 2% - 15 Gram Cream..g., 1 APPLIC TOP BID, #1 TUB 08/29/18 Ondansetron Hcl* (Zofran*) 4 Mg Tab, 4 MG PO Q6H PRN for NAUSEA AND OR VOMITING, TAB 08/29/18 Ipratropium-Albuterol (Ipratropium-Albuterol) 0.5-3 Mg/3 Ml Ampul.neb, 3 ML INHALATION Q6 PRN for WHEEZING AND SOB, #30 VIAL 08/29/18 Ferrous Sulfate* (Ferrous Sulfate*) 325 Mg Tabec, 325 MG PO DAILY, TAB 08/29/18 Apixaban* (Eliquis*) 5 Mg Tablet, 5 MG PO BID, TAB 08/29/18 Docusate Sodium* (Colace*) 100 Mg Capsule, 100 MG PO BID, #60 CAP 08/29/18 Bisacodyl* (Bisacodyl*) 5 Mg Tablet.dr, 10 MG PO BID PRN for CONSTIPATION, TAB 08/29/18 Tuberculin,Purif.prot.deriv. (Aplisol) 5 Tub Unit/0.1 Ml Vial, 5 TUB ID ONCE, VIAL START DATE 08/31/18 -- END DATE 09/01/18 08/29/18 Acetaminophen* (Acetaminophen*) 650 Mg Tablet, 650 MG PO Q6H PRN for PAIN LEVEL 1-12/12, #30 TAB AND FEVER>101F 08/29/18 Guaifenesin (Guaifenesin) 100 Mg/5 Ml Liquid, 10 ML PO NEEDED PRN for COUGH, ML 08/13/18 Diltiazem Hcl* (Cardizem*) 30 Mg Tablet, 30 MG PO Q8 for CHF, #90 TAB HOLD IF SBP<110 OR HR<60 08/13/18 Aspirin* (Aspirin* EC) 81 Mg Tablet.dr, 81 MG PO DAILY, TAB 08/13/18 Digoxin* (Digitek*) 125 Mcg Tablet, 0.125 MG PO DAILY, TAB HOLD IF SBP<110 OR HR<60 08/13/18 Atenolol* (Atenolol*) 25 Mg Tablet, 12.5 MG PO BID, #60 TAB HOLD IF SBP<110 OR HR<60 08/13/18 Furosemide* (Furosemide*) 40 Mg Tablet, 40 MG PO DAILY, TAB HOLD IF SBP<110 OR HR<60 08/13/18 Magnesium Hydroxide* (Milk Of Magnesia*) 400 Mg/5 Ml Oral.susp, 30 ML PO DAILY, ML 08/13/18 Potassium Chloride* (Klor-Con*) 20 Meq Tabsr, 20 MEQ PO DAILY, TAB.SA 07/11/18 Pantoprazole* (Pantoprazole*) 40 Mg Tablet.dr, 40 MG PO DAILY, TAB 07/11/18 Discontinued Reported Medications Albuterol Sulfate* (Proair HFA*) 8.5 Gm Hfa.aer.ad, 2 PUFF INH Q6H PRN for WHEEZING AND SOB, #1 INHALER 08/13/18 Hydrocortisone* Topical (Hydrocortisone* Topical) 2.5%-28.3 Gm Cream..g., 1 APPLIC TOP BID PRN for ITCHING, TUB 08/13/18 Acetaminophen* (Acetaminophen*) 500 MG Extra Strength Tablet, 500 MG PO Q6H PRN for PAIN AND OR ELEVATED TEMP, TAB 08/13/18 Dabigatran Etexilate Mesylate* (Pradaxa*) 75 Mg Cap, 75 MG PO BID, CAP 07/11/18 Discontinued Scripts Ipratropium-Albuterol (Ipratropium-Albuterol) 0.5-3 Mg/3 Ml Ampul.neb, 3 ML HHN Q4H RESP THERAPY for 30 Days Prov:JASPER SAHU 07/19/18 Medications Current Medications Diltiazem HCl (Cardizem) 30 mg Q8 PO Last administered on 08/29/18at 21:47; Admin Dose 30 MG; Start 08/29/18 at 22:00; Status Hold Vancomycin HCl (Vanco Iv Per Pharmacy) VANCOMYCIN PER PHARMACY PER PROTOCOL XX ; Start 08/30/18 at 12:00 Fentanyl 100 ml @ 2.5 mls/hr TITRATE IV Last administered on 09/04/18 21:24; Admin Dose 5 MLS/HR; Start 08/30/18 at 13:30 Atenolol (Tenormin) 12.5 mg BID NGT Last administered on 09/05/18 09:26; Admin Dose 12.5 MG; Start 08/30/18 at 21:00 Digoxin (Digoxin) 0.125 mg DAILY@13 NGT Last administered on 09/03/18 12:59; Admin Dose 0.125 MG; Start 08/30/18 at 13:00; Status Hold Ferrous Sulfate (Feosol Liquid Cup) 300 mg DAILY NGT Last administered on 09/05/18 08:51; Admin Dose 300 MG; Start 08/31/18 at 09:00 Lansoprazole (Prevacid) 30 mg DAILY@06 NGT Last administered on 09/05/18 05:06; Admin Dose 30 MG; Start 08/31/18 at 06:00 Docusate Sodium (Colace Liquid Cup) 100 mg BID PRN NGT CONSTIPATION Last a dministered on 08/30/18 23:46; Admin Dose 100 MG; Start 08/30/18 at 13:30 Vancomycin/Sodium Chloride 250 ml @ 125 mls/hr Q36H IVPB Last administered on 09/04/18 05:04; Admin Dose 125 MLS/HR; Start 09/01/18 at 06:00 Apixaban (Eliquis) 2.5 mg BID NGT Last administered on 09/05/18 08:52; Admin Dose 2.5 MG; Start 08/31/18 at 21:00 Midazolam HCl 50 ml @ 1 mls/hr TITRATE IV Last administered on 09/05/18 11:50; Admin Dose 7 MLS/HR; Start 09/01/18 at 11:00 Meropenem/Sodium Chloride 50 ml @ 100 mls/hr Q12 IVPB Last administered on 09/05/18 08:51; Admin Dose 100 MLS/HR; Start 09/01/18 at 21:00 Miscellaneous Information 1 ea NOTE XX ; Start 09/01/18 at 15:00 Glucose (Glutose) 15 gm Q15M PRN PO DECREASED GLUCOSE; Start 09/01/18 at 15:00 Glucose (Glutose) 22.5 gm Q15M PRN PO DECREASED GLUCOSE; Start 09/01/18 at 15:00 Dextrose (D50w Syringe) 25 ml Q15M PRN IV DECREASED GLUCOSE; Start 09/01/18 at 15:00 Dextrose (D50w Syringe) 50 ml Q15M PRN IV DECREASED GLUCOSE; Start 09/01/18 at 15:00 Glucagon (Glucagen) 1 mg Q15M PRN IM DECREASED GLUCOSE; Start 09/01/18 at 15:00 Glucose (Glutose) 15 gm Q15M PRN BUCCAL DECREASED GLUCOSE; Start 09/01/18 at 15:00 Insulin Aspart (Novolog Insulin Pen) NOVOLOG *MILD* ALGORI... Q4 SC Last administered on 09/05/18at 13:22; Admin Dose 2 UNIT; Start 09/02/18 at 01:00 Albuterol (Ventolin Hfa) 2 puff Q6H RESP THERAPY INH Last administered on 09/05/18at 12:57; Admin Dose 2 PUFF; Start 09/03/18 at 14:00 Ipratropium [place] (Atrovent Hfa) 2 puff Q6HWA RESP THERAPY INH Last administered on 09/05/18at 12:57; Admin Dose 2 PUFF; Start 09/03/18 at 14:00 Ipratropium [place] (Atrovent Hfa) 2 puff Q6H RESP THERAPY PRN INH SHORTNESS OF BREATH; Start 09/03/18 at 09:30 Albuterol (Ventolin Hfa) 2 puff Q6H RESP THERAPY PRN INH SHORTNESS OF BREATH; Start 09/03/18 at 09:30 Prednisone (Prednisone) 30 mg DAILY PO Last administered on 09/05/18at 08:52; Admin Dose 30 MG; Start 09/05/18 at 09:00 Miscellaneous Information (*Rx Drug Level Order Reminder*) RODOLFO TR 09/05 AT 1700 1700 ONCE XX ; Start 09/05/18 at 17:00; Stop 09/05/18 at 17:01 Dextrose 1,000 ml @ 40 mls/hr Q24H IV Last administered on 09/05/18at 11:50; Admin Dose 40 MLS/HR; Start 09/05/18 at 11:00 Assessment/Plan Hospital Course (Demo Recall) 1. Atrial fibrillation with a rapid ventricular response - rate controlled - will monitor to ICU. D/C dilt gtt now with low BP. Rate controlled off dilt gtt now. Rate controlled. Will monitor for now. 2. Congestive heart failure exacerbation, diastolic by most recent echo in July 2018 revealing a preserved EF of 65%, acute on chronic by history. Not in CHF by exam. Keep euvolemic. Euvolemic by exam- Cr high. 3. Hypertension, mildly elevated - well Rx now. Supportive Rx now. BETTER now. 4. Respiratory distress - transfer to ICU - con't pulm care per pulmonary team. 5. Shortness of breath, likely multifactorial secondary to heart failure and chronic obstructive pulmonary disease exacerbation - now intubated, better overall. 6. Probable chronic obstructive pulmonary disease exacerbation - plus anti-Bx for PNA. 7. Pneumonia, right lower lobe by chest x-ray, new since discharge, question aspiration. Con;t anti-Bx On meds - high secretions. 8. Hyponatremia. 9. Severe leukocytosis - better now, on anti-Bx, ID follows. 10. Anemia, mild - decrease dose Eliquis to 2.2 - renal team follows. . EMILY SANTAMARIA MD Sep 05, 2018 14:58
[2018-09-05] MEDS: VANCOMYCIN 750 MG (PMX) 250 ML IVPB SCH (18:34)
[2018-09-05] MEDS: FENTAnyl (DRIP) 1000 mcg/100mL 100 ML IV SCH ×2 (18:43→20:06)
[2018-09-06] VITALS (45 sets, daily range): BP systolic 80–136; BP diastolic 30–66; PULSE 56–79; RESP 17–25
[2018-09-06] MEDS: DEXTROSE 5% 1,000 ML IV SCH (00:41)
[2018-09-06] MEDS: INSULIN ASPART [NOVOLOG] 3 ML PEN SC SCH ×6 (00:47→20:56)
[2018-09-06] MEDS: ALBUTEROL HFA 8 GM INHALER INH SCH ×4 (01:13→19:47)
[2018-09-06] MEDS: MIDAZOLAM (DRIP) 50 mg/50 mL 50 ML IV SCH ×3 (04:53→23:05)
[2018-09-06] MEDS: LANSOPRAZOLE 30 MG CAP NGT SCH (05:03)
[2018-09-06] MEDS: IPRATROPIUM (HFA) 12.9 GM INHALER INH SCH ×3 (08:27→19:48)
[2018-09-06] MEDS: ATENOLOL 25 MG TAB NGT SCH ×2 (09:00→20:54)
[2018-09-06] MEDS: MEROPENEM 500MG/50 ML (PMX) 50 ML IVPB SCH ×2 (09:18→20:52)
[2018-09-06] MEDS: predniSONE 10 MG TAB PO SCH (09:18)
[2018-09-06] MEDS: FERROUS SULFATE 60 MG/ML 5ML CUP NGT SCH (09:18)
[2018-09-06] MEDS: APIXABAN 5 MG TABLET NGT SCH ×2 (09:18→20:47)
--- NOTE | 2018-09-06 09:29 | CONS ---
Consult Date/Type/Reason Admit Date/Time Aug 29, 2018 at 18:56 Initial Consult Date Type of Consultation: Pulm/CCM Requesting Provider: KARLEY DEAN MD Date/Time of Note DATE: 09/06/18 TIME: 09:24 Subjective NO acute events - BP in good range now - a. fib rate controlled with some elizabeth, but BP stable - will monitor for now - con't to wean as tolerated. ROS: No fever, no chills, no nausea, no vomiting, no diarrhea/constipation - per nurse Objective Vitals Vital Signs Date Temp Pulse Resp B/P (MAP) Pulse Ox O2 O2 Flow FiO2 Time Delivery Rate 09/06/18 72 20 100 30 08:15 09/06/18 97.8 96/30 (52) Mechanical 08:00 Ventilator Intake and Output 09/05/18 09/05/18 09/06/18 1515:00 23:00 07:00 IntakeIntake Total 1188 ml 1571 ml 1196 ml OutputOutput Total 575 ml 450 ml 575 ml BalanceBalance 613 ml 1121 ml 621 ml Exam General: WN/WD/NAD, AOx 0 HEENT: Unicetric/atraumatic/EOMI (does not follow commands) NECK: JVD elevated, no thyromegaly - intubated Lymph: no lymphadenopathy HEART: irregular with no S3, II/ systolic murmur at apex LUNGS: Coarse sounds ABD: soft, NT, ND, +BS : Intact Neuro: non focal SKIN: chronic changes EXT: trace edema Results/Medications Result Diagram: 09/06/18 0415 09/06/18 0415 Results 24 hrs Laboratory Tests Test 09/05/18 13:17 09/05/18 17:02 09/05/18 17:03 09/05/18 17:22 Bedside Glucose 186 145 Vancomycin Level 17.8 Trough Sodium Level 150 H Potassium Level 4.2 Chloride Level 117 H Carbon Dioxide 27 Level Anion Gap 6 Blood Urea 126 H Nitrogen Creatinine 2.25 H Est Glomerular Filtrat Rate mL/min Glucose Level 147 Calcium Level 8.8 Test 09/05/18 21:26 09/06/18 00:44 09/06/18 04:15 09/06/18 04:47 Bedside Glucose 182 170 163 White Blood Count 21.8 H Red Blood Count 3.06 L Hemoglobin 8.4 L Hematocrit 26.7 L Mean Corpuscular 87.3 Volume Mean Corpuscular 27.5 L Hemoglobin Mean Corpuscular 31.5 L Hemoglobin Concent Red Cell 16.3 H Distribution Width Platelet Count 353 Mean Platelet 10.1 Volume Immature 8.800 H Granulocytes % Neutrophils % 75.9 Segmented 77 Neutrophils % (Manual) Band Neutrophils % 3 (Manual) Lymphocytes % 6.5 L Lymphocytes % 8 L (Manual) Monocytes % 8.1 Monocytes % 6 (Manual) Eosinophils % 0.3 Basophils % 0.4 Metamyelocytes % 1 H (manual) Myelocytes % 5 H (Manual) Nucleated Red 0.0 Blood Cells % Immature 1.920 H Granulocytes # Neutrophils # 16.5 H Neutrophils # 16.9 H (Manual) Band Neutrophils # 0.6 Lymphocytes 1.7 (Manual) Lymphocytes # 1.4 Monocytes # 1.8 H Monocytes # 1.3 H (Manual) Eosinophils # 0.1 Basophils # 0.1 Metamyelocytes # 0.2 H Myelocytes # 1.0 H Nucleated Red 0.0 Blood Cells # Platelet Estimate NORMAL Polychromasia 1+ Poikilocytosis 1+ Anisocytosis 1+ Sodium Level 148 H Potassium Level 3.8 Chloride Level 115 H Carbon Dioxide 26 Level Anion Gap 7 Blood Urea 126 H Nitrogen Creatinine 1.96 H Est Glomerular Filtrat Rate mL/min Glucose Level 164 Calcium Level 8.5 Phosphorus Level 4.0 Magnesium Level 2.5 Total Bilirubin 0.2 Direct Bilirubin 0.00 Indirect Bilirubin 0.2 Aspartate Amino 35 Transf (AST/SGOT) Alanine 39 Aminotransferase ( ALT/SGPT) Alkaline 92 Phosphatase Total Protein 4.9 L Albumin 2.2 L Globulin 2.70 Albumin/Globulin 0.81 Ratio Test 09/06/18 05:00 09/06/18 09:17 Blood Gas Specimen Blood arterial Source Arterial Blood 09/06/2018 5:00:09 Date Drawn AM Arterial Blood pH 7.468 H (Temp corrected) Arterial Blood 33.8 L pCO2 (Temp correct) Arterial Blood pO2 109.1 H (Temp corrected) Arterial Blood 23.9 HCO3 Arterial Blood 0.5 Base Excess Arterial Blood 97.8 Oxygen Saturation Harshad Test ACCEPTAB Arterial Blood Gas Left Radial Puncture Site Arterial 0.2 Blood Carboxyhemog lobin Arterial Blood 0.3 Methemoglobin Blood Gas A-a O2 65.1 H Differential Oxyhemoglobin 97.3 Percent Blood Gas 37.0 Temperature Blood Gas 18.0 Respiration Rate Blood Gas Actual 18 Respiration Rate Blood Gas Modality VENT - AC FiO2 30.0 Blood Gas Tidal 550.0 Volume Blood Gas Low PEEP 5.0 Setting Blood Gas Notified GENESIS Whom Blood Gas Notified 09/06/2018 5:12:51 Time AM Bedside Glucose 192 Home Meds Reported Medications Mupirocin Calcium* (Mupirocin*) 2% - 15 Gram Cream..g., 1 APPLIC TOP BID, #1 TUB 08/29/18 Ondansetron Hcl* (Zofran*) 4 Mg Tab, 4 MG PO Q6H PRN for NAUSEA AND OR VOMITING, TAB 08/29/18 Ipratropium-Albuterol (Ipratropium-Albuterol) 0.5-3 Mg/3 Ml Ampul.neb, 3 ML INHALATION Q6 PRN for WHEEZING AND SOB, #30 VIAL 08/29/18 Ferrous Sulfate* (Ferrous Sulfate*) 325 Mg Tabec, 325 MG PO DAILY, TAB 08/29/18 Apixaban* (Eliquis*) 5 Mg Tablet, 5 MG PO BID, TAB 08/29/18 Docusate Sodium* (Colace*) 100 Mg Capsule, 100 MG PO BID, #60 CAP 08/29/18 Bisacodyl* (Bisacodyl*) 5 Mg Tablet.dr, 10 MG PO BID PRN for CONSTIPATION, TAB 08/29/18 Tuberculin,Purif.prot.deriv. (Aplisol) 5 Tub Unit/0.1 Ml Vial, 5 TUB ID ONCE, VIAL START DATE 08/31/18 -- END DATE 09/01/18 08/29/18 Acetaminophen* (Acetaminophen*) 650 Mg Tablet, 650 MG PO Q6H PRN for PAIN LEVEL 1-10/10, #30 TAB AND FEVER>101F 08/29/18 Guaifenesin (Guaifenesin) 100 Mg/5 Ml Liquid, 10 ML PO NEEDED PRN for COUGH, ML 08/13/18 Diltiazem Hcl* (Cardizem*) 30 Mg Tablet, 30 MG PO Q8 for CHF, #90 TAB HOLD IF SBP<110 OR HR<60 08/13/18 Aspirin* (Aspirin* EC) 81 Mg Tablet.dr, 81 MG PO DAILY, TAB 08/13/18 Digoxin* (Digitek*) 125 Mcg Tablet, 0.125 MG PO DAILY, TAB HOLD IF SBP<110 OR HR<60 08/13/18 Atenolol* (Atenolol*) 25 Mg Tablet, 12.5 MG PO BID, #60 TAB HOLD IF SBP<110 OR HR<60 08/13/18 Furosemide* (Furosemide*) 40 Mg Tablet, 40 MG PO DAILY, TAB HOLD IF SBP<110 OR HR<60 08/13/18 Magnesium Hydroxide* (Milk Of Magnesia*) 400 Mg/5 Ml Oral.susp, 30 ML PO DAILY, ML 08/13/18 Potassium Chloride* (Klor-Con*) 20 Meq Tabsr, 20 MEQ PO DAILY, TAB.SA 07/11/18 Pantoprazole* (Pantoprazole*) 40 Mg Tablet.dr, 40 MG PO DAILY, TAB 07/11/18 Medications Current Medications Diltiazem HCl (Cardizem) 30 mg Q8 PO Last administered on 08/29/18at 21:47; Admin Dose 30 MG; Start 08/29/18 at 22:00; Status Hold Vancomycin HCl (Vanco Iv Per Pharmacy) VANCOMYCIN PER PHARMACY PER PROTOCOL XX ; Start 08/30/18 at 12:00 Fentanyl 100 ml @ 2.5 mls/hr TITRATE IV Last administered on 09/05/18at 20:06; Admin Dose 5 MLS/HR; Start 08/30/18 at 13:30 Atenolol (Tenormin) 12.5 mg BID NGT Last administered on 09/05/18at 21:24; Admin Dose 12.5 MG; Start 08/30/18 at 21:00 Digoxin (Digoxin) 0.125 mg DAILY@13 NGT Last administered on 09/03/18at 12:59; Admin Dose 0.125 MG; Start 08/30/18 at 13:00; Status Hold Ferrous Sulfate (Feosol Liquid Cup) 300 mg DAILY NGT Last administered on 09/05/18at 08:51; Admin Dose 300 MG; Start 08/31/18 at 09:00 Lansoprazole (Prevacid) 30 mg DAILY@06 NGT Last administered on 09/06/18 05:03; Admin Dose 30 MG; Start 08/31/18 at 06:00 Docusate Sodium (Colace Liquid Cup) 100 mg BID PRN NGT CONSTIPATION Last administered on 08/30/18 23:46; Admin Dose 100 MG; Start 08/30/18 at 13:30 Vancomycin/Sodium Chloride 250 ml @ 125 mls/hr Q36H IVPB Last administered on 09/05/18 18:34; Admin Dose 125 MLS/HR; Start 09/01/18 at 06:00 Apixaban (Eliquis) 2.5 mg BID NGT Last administered on 09/05/18 21:24; Admin Dose 2.5 MG; Start 08/31/18 at 21:00 Midazolam HCl 50 ml @ 1 mls/hr TITRATE IV Last administered on 09/06/18 04:53; Admin Dose 7 MLS/HR; Start 09/01/18 at 11:00 Meropenem/Sodium Chloride 50 ml @ 100 mls/hr Q12 IVPB Last administered on 09/05/18 21:32; Admin Dose 100 MLS/HR; Start 09/01/18 at 21:00 Miscellaneous Information 1 ea NOTE XX ; Start 09/01/18 at 15:00 Glucose (Glutose) 15 gm Q15M PRN PO DECREASED GLUCOSE; Start 09/01/18 at 15:00 Glucose (Glutose) 22.5 gm Q15M PRN PO DECREASED GLUCOSE; Start 09/01/18 at 15:00 Dextrose (D50w Syringe) 25 ml Q15M PRN IV DECREASED GLUCOSE; Start 09/01/18 at 15:00 Dextrose (D50w Syringe) 50 ml Q15M PRN IV DECREASED GLUCOSE; Start 09/01/18 at 15:00 Glucagon (Glucagen) 1 mg Q15M PRN IM DECREASED GLUCOSE; Start 09/01/18 at 15:00 Glucose (Glutose) 15 gm Q15M PRN BUCCAL DECREASED GLUCOSE; Start 09/01/18 at 15:00 Insulin Aspart (Novolog Insulin Pen) NOVOLOG *MILD* ALGORI... Q4 SC Last administered on 09/06/18 04:49; Admin Dose 1 UNIT; Start 09/02/18 at 01:00 Albuterol (Ventolin Hfa) 2 puff Q6H RESP THERAPY INH Last administered on 09/06/18 08:26; Admin Dose 2 PUFF; Start 09/03/18 at 14:00 Ipratropium [place] (Atrovent Hfa) 2 puff Q6HWA RESP THERAPY INH Last administered on 09/06/18at 08:27; Admin Dose 2 PUFF; Start 09/03/18 at 14:00 Ipratropium [place] (Atrovent Hfa) 2 puff Q6H RESP THERAPY PRN INH SHORTNESS OF BREATH; Start 09/03/18 at 09:30 Albuterol (Ventolin Hfa) 2 puff Q6H RESP THERAPY PRN INH SHORTNESS OF BREATH; Start 09/03/18 at 09:30 Prednisone (Prednisone) 30 mg DAILY PO Last administered on 09/05/18at 08:52; Admin Dose 30 MG; Start 09/05/18 at 09:00 Dextrose 1,000 ml @ 40 mls/hr Q24H IV Last administered on 09/06/18at 00:41; Admin Dose 40 MLS/HR; Start 09/05/18 at 11:00 IV Flush (NS 10 ml) 10 ml PRN PRN IV IV PROTOCOL; Start 09/05/18 at 17:00 Assessment/Plan Hospital Course (Demo Recall) 1. Atrial fibrillation with a rapid ventricular response - rate controlled - will monitor to ICU. D/C dilt gtt now with low BP. Rate controlled off dilt gtt now. Rate controlled. Will monitor for now. Few episodes of elizabeth, but BP stable - will monitor clinically now. 2. Congestive heart failure exacerbation, diastolic by most recent echo in July 2018 revealing a preserved EF of 65%, acute on chronic by history. Not in CHF by exam. Keep euvolemic. Euvolemic by exam- Cr high. 3. Hypertension, mildly elevated - well Rx now. Supportive Rx now. BETTER now. 4. Respiratory distress - transfer to ICU - con't pulm care per pulmonary team. Con't resp Rx. 5. Shortness of breath, likely multifactorial secondary to heart failure and chronic obstructive pulmonary disease exacerbation - now intubated, better overall. 6. Probable chronic obstructive pulmonary disease exacerbation - plus anti-Bx for PNA. Treated. 7. Pneumonia, right lower lobe by chest x-ray, new since discharge, question aspiration. Con;t anti-Bx On meds - high secretions. 8. Hyponatremia. 9. Severe leukocytosis - better now, on anti-Bx, ID follows. 10. Anemia, mild - decrease dose Eliquis Cr a little better at 1.96 but H/H down - if con't to go down, will hold anti-coagulation. EMILY SANTAMARIA MD Sep 06, 2018 09:29
--- NOTE | 2018-09-06 09:55 | CONS ---
Consult Date/Type/Reason Admit Date/Time Aug 29, 2018 at 18:56 Initial Consult Date Type of Consult Pulmonary Requesting Provider: KARLEY DEAN MD Date/Time of Note DATE: 09/06/18 TIME: 09:54 Subjective Sedated on mechanical ventilation. No significant changes. Not following commands off sedation. Objective Vital Signs Date Temp Pulse Resp B/P (MAP) Pulse Ox O2 O2 Flow FiO2 Time Delivery Rate 09/06/18 72 20 100 30 08:15 09/06/18 97.8 96/30 (52) Mechanical 08:00 Ventilator Intake and Output 09/05/18 09/05/18 09/06/18 1414:59 22:59 06:59 IntakeIntake Total 1146 ml 1571 ml 1196 ml OutputOutput Total 600 ml 460 ml 540 ml BalanceBalance 546 ml 1111 ml 656 ml Exam GENERAL: Elderly-appearing gentleman, now intubated on mechanical ventilation, appears comfortable at rest, no acute distress. NECK: Supple. No JVD or lymphadenopathy. CARDIAC: Sounds S1, S2, no added sounds or murmurs. CHEST: Diminished air entry bilaterally with occasional rhonchi ABDOMEN: Soft, nontender. No guarding or rebound. EXTREMITIES: No cyanosis or clubbing. 1+ edema Vent Setting Ventilator Support Mode: AC, VC plus Fraction of Inspired Oxygen pe: 30 Positive End Expiratory Pressu: 5.0 Results/Medications Result Diagram: 09/06/18 0415 09/06/18 0415 Results 24 hrs Laboratory Tests Test 09/05/18 13:17 09/05/18 17:02 09/05/18 17:03 09/05/18 17:22 Bedside Glucose 186 145 Vancomycin Level 17.8 Trough Sodium Level 150 H Potassium Level 4.2 Chloride Level 117 H Carbon Dioxide 27 Level Anion Gap 6 Blood Urea 126 H Nitrogen Creatinine 2.25 H Est Glomerular Filtrat Rate mL/min Glucose Level 147 Calcium Level 8.8 Test 09/05/18 21:26 09/06/18 00:44 09/06/18 04:15 09/06/18 04:47 Bedside Glucose 182 170 163 White Blood Count 21.8 H Red Blood Count 3.06 L Hemoglobin 8.4 L Hematocrit 26.7 L Mean Corpuscular 87.3 Volume Mean Corpuscular 27.5 L Hemoglobin Mean Corpuscular 31.5 L Hemoglobin Concent Red Cell 16.3 H Distribution Width Platelet Count 353 Mean Platelet 10.1 Volume Immature 8.800 H Granulocytes % Neutrophils % 75.9 Segmented 77 Neutrophils % (Manual) Band Neutrophils % 3 (Manual) Lymphocytes % 6.5 L Lymphocytes % 8 L (Manual) Monocytes % 8.1 Monocytes % 6 (Manual) Eosinophils % 0.3 Basophils % 0.4 Metamyelocytes % 1 H (manual) Myelocytes % 5 H (Manual) Nucleated Red 0.0 Blood Cells % Immature 1.920 H Granulocytes # Neutrophils # 16.5 H Neutrophils # 16.9 H (Manual) Band Neutrophils # 0.6 Lymphocytes 1.7 (Manual) Lymphocytes # 1.4 Monocytes # 1.8 H Monocytes # 1.3 H (Manual) Eosinophils # 0.1 Basophils # 0.1 Metamyelocytes # 0.2 H Myelocytes # 1.0 H Nucleated Red 0.0 Blood Cells # Platelet Estimate NORMAL Polychromasia 1+ Poikilocytosis 1+ Anisocytosis 1+ Sodium Level 148 H Potassium Level 3.8 Chloride Level 115 H Carbon Dioxide 26 Level Anion Gap 7 Blood Urea 126 H Nitrogen Creatinine 1.96 H Est Glomerular Filtrat Rate mL/min Glucose Level 164 Calcium Level 8.5 Phosphorus Level 4.0 Magnesium Level 2.5 Total Bilirubin 0.2 Direct Bilirubin 0.00 Indirect Bilirubin 0.2 Aspartate Amino 35 Transf (AST/SGOT) Alanine 39 Aminotransferase ( ALT/SGPT) Alkaline 92 Phosphatase Total Protein 4.9 L Albumin 2.2 L Globulin 2.70 Albumin/Globulin 0.81 Ratio Test 09/06/18 05:00 09/06/18 09:17 Blood Gas Specimen Blood arterial Source Arterial Blood 09/06/2018 5:00:09 Date Drawn AM Arterial Blood pH 7.468 H (Temp corrected) Arterial Blood 33.8 L pCO2 (Temp correct) Arterial Blood pO2 109.1 H (Temp corrected) Arterial Blood 23.9 HCO3 Arterial Blood 0.5 Base Excess Arterial Blood 97.8 Oxygen Saturation Harshad Test ACCEPTAB Arterial Blood Gas Left Radial Puncture Site Arterial 0.2 Blood Carboxyhemog lobin Arterial Blood 0.3 Methemoglobin Blood Gas A-a O2 65.1 H Differential Oxyhemoglobin 97.3 Percent Blood Gas 37.0 Temperature Blood Gas 18.0 Respiration Rate Blood Gas Actual 18 Respiration Rate Blood Gas Modality VENT - AC FiO2 30.0 Blood Gas Tidal 550.0 Volume Blood Gas Low PEEP 5.0 Setting Blood Gas Notified MA Whom Blood Gas Notified 09/06/2018 5:12:51 Time AM Bedside Glucose 192 Medications Current Medications Diltiazem HCl (Cardizem) 30 mg Q8 PO Last administered on 08/29/18 21:47; Admin Dose 30 MG; Start 08/29/18 at 22:00; Status Hold Vancomycin HCl (Vanco Iv Per Pharmacy) VANCOMYCIN PER PHARMACY PER PROTOCOL XX ; Start 08/30/18 at 12:00 Fentanyl 100 ml @ 2.5 mls/hr TITRATE IV Last administered on 09/05/18 20:06; Admin Dose 5 MLS/HR; Start 08/30/18 at 13:30 Atenolol (Tenormin) 12.5 mg BID NGT Last administered on 09/05/18 21:24; Admin Dose 12.5 MG; Start 08/30/18 at 21:00 Digoxin (Digoxin) 0.125 mg DAILY@13 NGT Last administered on 09/03/18 12:59; Admin Dose 0.125 MG; Start 08/30/18 at 13:00; Status Hold Ferrous Sulfate (Feosol Liquid Cup) 300 mg DAILY NGT Last administered on 09/06/18 09:18; Admin Dose 300 MG; Start 08/31/18 at 09:00 Lansoprazole (Prevacid) 30 mg DAILY@06 NGT Last administered on 09/06/18 05:03; Admin Dose 30 MG; Start 08/31/18 at 06:00 Docusate Sodium (Colace Liquid Cup) 100 mg BID PRN NGT CONSTIPATION Last administered on 08/30/18 23:46; Admin Dose 100 MG; Start 08/30/18 at 13:30 Vancomycin/Sodium Chloride 250 ml @ 125 mls/hr Q36H IVPB Last administered on 09/05/18 18:34; Admin Dose 125 MLS/HR; Start 09/01/18 at 06:00 Apixaban (Eliquis) 2.5 mg BID NGT Last administered on 09/06/18 09:18; Admin Dose 2.5 MG; Start 08/31/18 at 21:00 Midazolam HCl 50 ml @ 1 mls/hr TITRATE IV Last administered on 09/06/18 04:53; Admin Dose 7 MLS/HR; Start 09/01/18 at 11:00 Meropenem/Sodium Chloride 50 ml @ 100 mls/hr Q12 IVPB Last administered on 09/06/18at 09:18; Admin Dose 100 MLS/HR; Start 09/01/18 at 21:00 Miscellaneous Information 1 ea NOTE XX ; Start 09/01/18 at 15:00 Glucose (Glutose) 15 gm Q15M PRN PO DECREASED GLUCOSE; Start 09/01/18 at 15:00 Glucose (Glutose) 22.5 gm Q15M PRN PO DECREASED GLUCOSE; Start 09/01/18 at 15:00 Dextrose (D50w Syringe) 25 ml Q15M PRN IV DECREASED GLUCOSE; Start 09/01/18 at 15:00 Dextrose (D50w Syringe) 50 ml Q15M PRN IV DECREASED GLUCOSE; Start 09/01/18 at 15:00 Glucagon (Glucagen) 1 mg Q15M PRN IM DECREASED GLUCOSE; Start 09/01/18 at 15:00 Glucose (Glutose) 15 gm Q15M PRN BUCCAL DECREASED GLUCOSE; Start 09/01/18 at 15:00 Insulin Aspart (Novolog Insulin Pen) NOVOLOG *MILD* ALGORI... Q4 SC Last administered on 09/06/18at 09:26; Admin Dose 2 UNIT; Start 09/02/18 at 01:00 Albuterol (Ventolin Hfa) 2 puff Q6H RESP THERAPY INH Last administered on 09/06 08:26; Admin Dose 2 PUFF; Start 09/03/18 at 14:00 Ipratropium [place] (Atrovent Hfa) 2 puff Q6HWA RESP THERAPY INH Last administered on 09/06/18 08:27; Admin Dose 2 PUFF; Start 09/03/18 at 14:00 Ipratropium [place] (Atrovent Hfa) 2 puff Q6H RESP THERAPY PRN INH SHORTNESS OF BREATH; Start 09/03/18 at 09:30 Albuterol (Ventolin Hfa) 2 puff Q6H RESP THERAPY PRN INH SHORTNESS OF BREATH; Start 09/03/18 at 09:30 Prednisone (Prednisone) 30 mg DAILY PO Last administered on 09/06/18at 09:18; Admin Dose 30 MG; Start 09/05/18 at 09:00 Dextrose 1,000 ml @ 40 mls/hr Q24H IV Last administered on 09/06/18at 00:41; Admin Dose 40 MLS/HR; Start 09/05/18 at 11:00 IV Flush (NS 10 ml) 10 ml PRN PRN IV IV PROTOCOL; Start 09/05/18 at 17:00 Assessment/Plan Hospital Course (Demo Recall) IMPRESSION AND PLAN: 1. History of lung cancer and advanced COPD with recurrent hypoxemic respiratory failure 2. Probable aspiration pneumonia. Bilateral infiltrates with left pleural eff usion. 3. Chronic obstructive pulmonary disease exacerbation. 4. Septic shock and metabolic acidosis secondary to above. 5. Renal insufficiency. PLAN: 1. Continue vasopressors and IV fluids tube feeding as tolerated, 2. Blood cultures. 3. Broad-spectrum antibiotics. 4. DVT and GI prophylaxis. 5. Not stable for CPAP trials. 6. Steroids. 7. DC Precedex continue sedation and pain control Critical care time 40 minutes. Palliative care consult regarding goals of care. AISHWARYA PICKARD MD, [facility] Sep 06, 2018 09:55
--- NOTE | 2018-09-06 10:27 | CONS ---
Assessment/Plan Assessment/Plan Hospital Course (Demo Recall) ID PROGRESS NOTE CURRENT ABX: DAY #8 =>Vanco IV + Merrem 09/06/18 0415 09/06/18 0415 24H INTERVAL SUMMARY * Orally intubated sedated on mechanical vent -- leukocytosis on steroids taper * NEW PICC 09/05/18 * Indwelling: Endotracheal tube NG tube Bar catheter DIAGNOSTIC IMAGING * 09/06/18 CXR: Diffuse interstitial and patchy airspace opacities throughout the lungs are unchanged along with unchanged large left and moderate right pleural effusions. There is no pneumothorax. The cardiac silhouette is obscu red. The aorta is tortuous and atherosclerotic. * 09/20 CXR:IMPRESSION: Cardiomegaly with calcified atherosclerosis in the aorta. Stable central pulmonary vascular congestion and mild interstitial prominence in both lungs. Stable patchy infiltrates throughout both lungs with moderate left pleural effusion and small to moderate right pleural effusion. * CT of the chest revealed patchy bilateral pulmonary consolidation greater on the left concerning for multilobar pneumonia. Please see full report in the chart MICRO * 08/30/18 Sputum Cx = NORMAL Allie * 08/30/18 BCx(+) CoNS 1/2 bottles * 08/29/18 BCx (-) PHYSICAL EXAMINATION: GENERAL: VSS, NAD HEENT: AT, NC, NECK: Supple, CHEST: Rise symmetrical HEART: Pulse RRR ABDOMEN: Benign EXTREMITIES: Warm, dry SKIN: No rash, no diaphoresis ID ASSESSMENT 78 yo M admit with: 1. Severe sepsis with shock 2. Acute hypoxemic respiratory failure possibly aspiration 3. Multilobar pneumonia per CT 4. COPD 5. History of lung cancer status post radiation, details unknown 6. Atrial fibrillation status post RVR -> now rate controlled 7. Bacteremia, cw contaminant (-)MRSA Nares ABX ALLERGIES: KNDA INVASIVES: PIV, PICC (09/05/18) ETT, NGT, FC CURRENT ABX: DAY # 8 => Vanco IV + Merrem ID RECOMMENDATIONS/PLAN: 1. Continue current ABX -- NEW PICC 09/05 w/removal of femoral line 2. Steroids taper, vent management per pulmonary . Consultation Date/Type/Reason Admit Date/Time Aug 29, 2018 at 18:56 Initial Consult Date Requesting Provider: KARLEY DEAN MD Date/Time of Note DATE: 09/06/18 TIME: 10:18 Exam/Review of Systems Exam Vitals Vital Signs Date Temp Pulse Resp B/P (MAP) Pulse Ox O2 O2 Flow FiO2 Time Delivery Rate 09/06/18 72 20 100 30 08:15 09/06/18 97.8 96/30 (52) Mechanical 08:00 Ventilator Intake and Output 09/05/18 09/05/18 09/06/18 1414:59 22:59 06:59 IntakeIntake Total 1146 ml 1571 ml 1196 ml OutputOutput Total 600 ml 460 ml 540 ml BalanceBalance 546 ml 1111 ml 656 ml Results Result Diagram: 09/06/18 0415 09/06/18 0415 Results 24hrs Laboratory Tests Test 09/05/18 13:17 09/05/18 17:02 09/05/18 17:03 09/05/18 17:22 Bedside Glucose 186 145 Vancomycin Level 17.8 Trough Sodium Level 150 H Potassium Level 4.2 Chloride Level 117 H Carbon Dioxide 27 Level Anion Gap 6 Blood Urea 126 H Nitrogen Creatinine 2.25 H Est Glomerular Filtrat Rate mL/min Glucose Level 147 Calcium Level 8.8 Test 09/05/18 21:26 09/06/18 00:44 09/06/18 04:15 09/06/18 04:47 Bedside Glucose 182 170 163 White Blood Count 21.8 H Red Blood Count 3.06 L Hemoglobin 8.4 L Hematocrit 26.7 L Mean Corpuscular 87.3 Volume Mean Corpuscular 27.5 L Hemoglobin Mean Corpuscular 31.5 L Hemoglobin Concent Red Cell 16.3 H Distribution Width Platelet Count 353 Mean Platelet 10.1 Volume Immature 8.800 H Granulocytes % Neutrophils % 75.9 Segmented 77 Neutrophils % (Manual) Band Neutrophils % 3 (Manual) Lymphocytes % 6.5 L Lymphocytes % 8 L (Manual) Monocytes % 8.1 Monocytes % 6 (Manual) Eosinophils % 0.3 Basophils % 0.4 Metamyelocytes % 1 H (manual) Myelocytes % 5 H (Manual) Nucleated Red 0.0 Blood Cells % Immature 1.920 H Granulocytes # Neutrophils # 16.5 H Neutrophils # 16.9 H (Manual) Band Neutrophils # 0.6 Lymphocytes 1.7 (Manual) Lymphocytes # 1.4 Monocytes # 1.8 H Monocytes # 1.3 H (Manual) Eosinophils # 0.1 Basophils # 0.1 Metamyelocytes # 0.2 H Myelocytes # 1.0 H Nucleated Red 0.0 Blood Cells # Platelet Estimate NORMAL Polychromasia 1+ Poikilocytosis 1+ Anisocytosis 1+ Sodium Level 148 H Potassium Level 3.8 Chloride Level 115 H Carbon Dioxide 26 Level Anion Gap 7 Blood Urea 126 H Nitrogen Creatinine 1.96 H Est Glomerular Filtrat Rate mL/min Glucose Level 164 Calcium Level 8.5 Phosphorus Level 4.0 Magnesium Level 2.5 Total Bilirubin 0.2 Direct Bilirubin 0.00 Indirect Bilirubin 0.2 Aspartate Amino 35 Transf (AST/SGOT) Alanine 39 Aminotransferase ( ALT/SGPT) Alkaline 92 Phosphatase Total Protein 4.9 L Albumin 2.2 L Globulin 2.70 Albumin/Globulin 0.81 Ratio Test 09/06/18 05:00 09/06/18 09:17 Blood Gas Specimen Blood arterial Source Arterial Blood 09/06/2018 5:00:09 Date Drawn AM Arterial Blood pH 7.468 H (Temp corrected) Arterial Blood 33.8 L pCO2 (Temp correct) Arterial Blood pO2 109.1 H (Temp corrected) Arterial Blood 23.9 HCO3 Arterial Blood 0.5 Base Excess Arterial Blood 97.8 Oxygen Saturation Harshad Test ACCEPTAB Arterial Blood Gas Left Radial Puncture Site Arterial 0.2 Blood Carboxyhemog lobin Arterial Blood 0.3 Methemoglobin Blood Gas A-a O2 65.1 H Differential Oxyhemoglobin 97.3 Percent Blood Gas 37.0 Temperature Blood Gas 18.0 Respiration Rate Blood Gas Actual 18 Respiration Rate Blood Gas Modality VENT - AC FiO2 30.0 Blood Gas Tidal 550.0 Volume Blood Gas Low PEEP 5.0 Setting Blood Gas Notified [place] Whom Blood Gas Notified 09/06/2018 5:12:51 Time AM Bedside Glucose 192 Medications Medication Current Medications Diltiazem HCl (Cardizem) 30 mg Q8 PO Last administered on 08/29/18at 21:47; Admin Dose 30 MG; Start 08/29/18 at 22:00; Status Hold Vancomycin HCl (Vanco Iv Per Pharmacy) VANCOMYCIN PER PHARMACY PER PROTOCOL XX ; Start 08/30/18 at 12:00 Fentanyl 100 ml @ 2.5 mls/hr TITRATE IV Last administered on 09/05/18at 20:06; Admin Dose 5 MLS/HR; Start 08/30/18 at 13:30 Atenolol (Tenormin) 12.5 mg BID NGT Last administered on 09/05/18 21:24; Admin Dose 12.5 MG; Start 08/30/18 at 21:00 Digoxin (Digoxin) 0.125 mg DAILY@13 NGT Last administered on 09/03/18 12:59; Admin Dose 0.125 MG; Start 08/30/18 at 13:00; Status Hold Ferrous Sulfate (Feosol Liquid Cup) 300 mg DAILY NGT Last administered on 09/06/18 09:18; Admin Dose 300 MG; Start 08/31/18 at 09:00 Lansoprazole (Prevacid) 30 mg DAILY@06 NGT Last administered on 09/06/18 05:03; Admin Dose 30 MG; Start 08/31/18 at 06:00 Docusate Sodium (Colace Liquid Cup) 100 mg BID PRN NGT CONSTIPATION Last administered on 08/30/18 23:46; Admin Dose 100 MG; Start 08/30/18 at 13:30 Vancomycin/Sodium Chloride 250 ml @ 125 mls/hr Q36H IVPB Last administered on 09/05/18 18:34; Admin Dose 125 MLS/HR; Start 09/01/18 at 06:00 Apixaban (Eliquis) 2.5 mg BID NGT Last administered on 09/06/18 09:18; Admin Dose 2.5 MG; Start 08/31/18 at 21:00 Midazolam HCl 50 ml @ 1 mls/hr TITRATE IV Last administered on 09/06/18 04:53; Admin Dose 7 MLS/HR; Start 09/01/18 at 11:00 Meropenem/Sodium Chloride 50 ml @ 100 mls/hr Q12 IVPB Last administered on 09/06/18 09:18; Admin Dose 100 MLS/HR; Start 09/01/18 at 21:00 Miscellaneous Information 1 ea NOTE XX ; Start 09/01/18 at 15:00 Glucose (Glutose) 15 gm Q15M PRN PO DECREASED GLUCOSE; Start 09/01/18 at 15:00 Glucose (Glutose) 22.5 gm Q15M PRN PO DECREASED GLUCOSE; Start 09/01/18 at 15:00 Dextrose (D50w Syringe) 25 ml Q15M PRN IV DECREASED GLUCOSE; Start 09/01/18 at 15:00 Dextrose (D50w Syringe) 50 ml Q15M PRN IV DECREASED GLUCOSE; Start 09/01/18 at 15:00 Glucagon (Glucagen) 1 mg Q15M PRN IM DECREASED GLUCOSE; Start 09/01/18 at 15:00 Glucose (Glutose) 15 gm Q15M PRN BUCCAL DECREASED GLUCOSE; Start 09/01/18 at 15:00 Insulin Aspart (Novolog Insulin Pen) NOVOLOG *MILD* ALGORI... Q4 SC Last administered on 09/06/18 09:26; Admin Dose 2 UNIT; Start 09/02/18 at 01:00 Albuterol (Ventolin Hfa) 2 puff Q6H RESP THERAPY INH Last administered on 09/06/18 08:26; Admin Dose 2 PUFF; Start 09/03/18 at 14:00 Ipratropium [place] (Atrovent Hfa) 2 puff Q6HWA RESP THERAPY INH Last a dministered on 09/06/18 08:27; Admin Dose 2 PUFF; Start 09/03/18 at 14:00 Ipratropium [place] (Atrovent Hfa) 2 puff Q6H RESP THERAPY PRN INH SHORTNESS OF BREATH; Start 09/03/18 at 09:30 Albuterol (Ventolin Hfa) 2 puff Q6H RESP THERAPY PRN INH SHORTNESS OF BREATH; Start 09/03/18 at 09:30 Prednisone (Prednisone) 30 mg DAILY PO Last administered on 09/06/18 09:18; Admin Dose 30 MG; Start 09/05/18 at 09:00 Dextrose 1,000 ml @ 40 mls/hr Q24H IV Last administered on 09/06/18at 00:41; Admin Dose 40 MLS/HR; Start 09/05/18 at 11:00 IV Flush (NS 10 ml) 10 ml PRN PRN IV IV PROTOCOL; Start 09/05/18 at 17:00 LILY ARTHUR NP Sep 06, 2018 10:27
[2018-09-06] MEDS: FENTAnyl (DRIP) 1000 mcg/100mL 100 ML IV SCH (13:59)
--- NOTE | 2018-09-06 14:34 | PN ---
Date/Time of Note Date/Time of Note DATE: 09/06/18 TIME: 14:31 Assessment/Plan VTE Prophylaxis Risk score (from Ns)>0 risk: 6 SCD applied (from Ns): Yes Pharmacological prophylaxis: apixaban Lines/Catheters IV Catheter Type (from Nrsg): PICC Line Central line still needed: Yes Urinary Cath still in place: Yes Reason Cath still needed: urinary retention Assessment/Plan Hospital Course 1 Septic shock likely due to sepsis /pneumonia . Off pressors 2. ALOC, lethargic. Now sedated follows commands off sedation 3. Atrial fibrillation, now flutter, controlled 4. Hypoxic respiratory failure. Respiratory acidosis, resolved. 5. Bilateral pneumonia 6. Congestive heart failure, EF 35 to 40%, 7. Hx of right side lung cancer 8. JAMES on chronic kidney disease, creatinine baseline 1.6. With elevated BUN and creatinine ratio likely ATN secondary to septic shock now Cr downtrending however BUN still high, Good UOP 9. Hx of pleural effusions, right and left and numerous thoracentesis 10. Bilateral pleural effusion 11. Hx of hypertension, now on BP support 12. Hyperlipidemia 13 + bacteremia however new bld cx neg 14 Hypernatremia likely hypovolemic 15. Anemia Assessment/Plan - c/w D5W -c/w ICU care -Monitor lytes/urine output no emergent indication of hemodialysis, cr downtrending , UOP 80 cc/hr - keep euvolemic - ? thoracentesis when extubated discussed with Dr Guajardo -cw pred 30 -pulmonary consult dr Guajardo appreciated -orally intubated 30 % -Cardiology consult dr Hall -With vancomycin/meropenem, -DVT proph. Eliquiz 2.5 mg GT BID -GI proph. Protonix GT -Off pressors. -c/w tube feed 40 % Result Diagram: 09/06/18 0415 09/06/18 0415 Results 24hrs Laboratory Tests Test 09/05/18 17:02 09/05/18 17:03 09/05/18 17:22 09/05/18 21:26 Vancomycin Level 17.8 Trough Sodium Level 150 H Potassium Level 4.2 Chloride Level 117 H Carbon Dioxide 27 Level Anion Gap 6 Blood Urea 126 H Nitrogen Creatinine 2.25 H Est Glomerular Filtrat Rate mL/min Glucose Level 147 Calcium Level 8.8 Bedside Glucose 145 182 Test 09/06/18 00:44 09/06/18 04:15 09/06/18 04:47 09/06/18 05:00 Bedside Glucose 170 163 White Blood Count 21.8 H Red Blood Count 3.06 L Hemoglobin 8.4 L Hematocrit 26.7 L Mean Corpuscular 87.3 Volume Mean Corpuscular 27.5 L Hemoglobin Mean Corpuscular 31.5 L Hemoglobin Concent Red Cell 16.3 H Distribution Width Platelet Count 353 Mean Platelet 10.1 Volume Immature 8.800 H Granulocytes % Neutrophils % 75.9 Segmented 77 Neutrophils % (Manual) Band Neutrophils % 3 (Manual) Lymphocytes % 6.5 L Lymphocytes % 8 L (Manual) Monocytes % 8.1 Monocytes % 6 (Manual) Eosinophils % 0.3 Basophils % 0.4 Metamyelocytes % 1 H (manual) Myelocytes % 5 H (Manual) Nucleated Red 0.0 Blood Cells % Immature 1.920 H Granulocytes # Neutrophils # 16.5 H Neutrophils # 16.9 H (Manual) Band Neutrophils # 0.6 Lymphocytes 1.7 (Manual) Lymphocytes # 1.4 Monocytes # 1.8 H Monocytes # 1.3 H (Manual) Eosinophils # 0.1 Basophils # 0.1 Metamyelocytes # 0.2 H Myelocytes # 1.0 H Nucleated Red 0.0 Blood Cells # Platelet Estimate NORMAL Polychromasia 1+ Poikilocytosis 1+ Anisocytosis 1+ Sodium Level 148 H Potassium Level 3.8 Chloride Level 115 H Carbon Dioxide 26 Level Anion Gap 7 Blood Urea 126 H Nitrogen Creatinine 1.96 H Est Glomerular Filtrat Rate mL/min Glucose Level 164 Calcium Level 8.5 Phosphorus Level 4.0 Magnesium Level 2.5 Total Bilirubin 0.2 Direct Bilirubin 0.00 Indirect Bilirubin 0.2 Aspartate Amino 35 Transf (AST/SGOT) Alanine 39 Aminotransferase ( ALT/SGPT) Alkaline 92 Phosphatase Total Protein 4.9 L Albumin 2.2 L Globulin 2.70 Albumin/Globulin 0.81 Ratio Blood Gas Specimen Blood arterial Source Arterial Blood 09/06/2018 5:00:09 Date Drawn AM Arterial Blood pH 7.468 H (Temp corrected) Arterial Blood 33.8 L pCO2 (Temp correct) Arterial Blood pO2 109.1 H (Temp corrected) Arterial Blood 23.9 HCO3 Arterial Blood 0.5 Base Excess Arterial Blood 97.8 Oxygen Saturation Harshad Test ACCEPTAB Arterial Blood Gas Left Radial Puncture Site Arterial 0.2 Blood Carboxyhemog lobin Arterial Blood 0.3 Methemoglobin Blood Gas A-a O2 65.1 H Differential Oxyhemoglobin 97.3 Percent Blood Gas 37.0 Temperature Blood Gas 18.0 Respiration Rate Blood Gas Actual 18 Respiration Rate Blood Gas Modality VENT - AC FiO2 30.0 Blood Gas Tidal 550.0 Volume Blood Gas Low PEEP 5.0 Setting Blood Gas Notified MA Whom Blood Gas Notified 09/06/2018 5:12:51 Time AM Test 09/06/18 09:17 09/06/18 12:28 Bedside Glucose 192 145 Subjective 24 Hr Interval Summary Subjective hx not possible: pt non-verbal, pt critical Exam/Review of Systems Exam Vitals Vital Signs Date Temp Pulse Resp B/P (MAP) Pulse Ox O2 O2 Flow FiO2 Time Delivery Rate 09/06/18 72 20 100 30 08:15 09/06/18 97.8 96/30 (52) Mechanical 08:00 Ventilator Intake and Output 09/05/18 09/05/18 09/06/18 1515:00 23:00 07:00 IntakeIntake Total 1188 ml 1571 ml 1196 ml OutputOutput Total 575 ml 450 ml 575 ml BalanceBalance 613 ml 1121 ml 621 ml Exam orally intubated Constitutional: alert, oriented, non-verbal, frail Head: normocephalic ENMT: nl external ears & nose Neck: supple Respiratory: crackles/rales, diminished breath sounds Cardiovascular: regular rate and rhythm Genitourinary - Male: other (yañez) Extremities: normal pulses, edema; No calf tenderness, No cyanosis, No clubbing, No pitting pedal edema, No palpable cord, No tenderness, No other Skin: other (pale) Results Results 24hrs Laboratory Tests Test 09/05/18 17:02 09/05/18 17:03 09/05/18 17:22 09/05/18 21:26 Vancomycin Level 17.8 Trough Sodium Level 150 H Potassium Level 4.2 Chloride Level 117 H Carbon Dioxide 27 Level Anion Gap 6 Blood Urea 126 H Nitrogen Creatinine 2.25 H Est Glomerular Filtrat Rate mL/min Glucose Level 147 Calcium Level 8.8 Bedside Glucose 145 182 Test 09/06/18 00:44 09/06/18 04:15 09/06/18 04:47 09/06/18 05:00 Bedside Glucose 170 163 White Blood Count 21.8 H Red Blood Count 3.06 L Hemoglobin 8.4 L Hematocrit 26.7 L Mean Corpuscular 87.3 Volume Mean Corpuscular 27.5 L Hemoglobin Mean Corpuscular 31.5 L Hemoglobin Concent Red Cell 16.3 H Distribution Width Platelet Count 353 Mean Platelet 10.1 Volume Immature 8.800 H Granulocytes % Neutrophils % 75.9 Segmented 77 Neutrophils % (Manual) Band Neutrophils % 3 (Manual) Lymphocytes % 6.5 L Lymphocytes % 8 L (Manual) Monocytes % 8.1 Monocytes % 6 (Manual) Eosinophils % 0.3 Basophils % 0.4 Metamyelocytes % 1 H (manual) Myelocytes % 5 H (Manual) Nucleated Red 0.0 Blood Cells % Immature 1.920 H Granulocytes # Neutrophils # 16.5 H Neutrophils # 16.9 H (Manual) Band Neutrophils # 0.6 Lymphocytes 1.7 (Manual) Lymphocytes # 1.4 Monocytes # 1.8 H Monocytes # 1.3 H (Manual) Eosinophils # 0.1 Basophils # 0.1 Metamyelocytes # 0.2 H Myelocytes # 1.0 H Nucleated Red 0.0 Blood Cells # Platelet Estimate NORMAL Polychromasia 1+ Poikilocytosis 1+ Anisocytosis 1+ Sodium Level 148 H Potassium Level 3.8 Chloride Level 115 H Carbon Dioxide 26 Level Anion Gap 7 Blood Urea 126 H Nitrogen Creatinine 1.96 H Est Glomerular Filtrat Rate mL/min Glucose Level 164 Calcium Level 8.5 Phosphorus Level 4.0 Magnesium Level 2.5 Total Bilirubin 0.2 Direct Bilirubin 0.00 Indirect Bilirubin 0.2 Aspartate Amino 35 Transf (AST/SGOT) Alanine 39 Aminotransferase ( ALT/SGPT) Alkaline 92 Phosphatase Total Protein 4.9 L Albumin 2.2 L Globulin 2.70 Albumin/Globulin 0.81 Ratio Blood Gas Specimen Blood arterial Source Arterial Blood 09/06/2018 5:00:09 Date Drawn AM Arterial Blood pH 7.468 H (Temp corrected) Arterial Blood 33.8 L pCO2 (Temp correct) Arterial Blood pO2 109.1 H (Temp corrected) Arterial Blood 23.9 HCO3 Arterial Blood 0.5 Base Excess Arterial Blood 97.8 Oxygen Saturation Harshad Test ACCEPTAB Arterial Blood Gas Left Radial Puncture Site Arterial 0.2 Blood Carboxyhemog lobin Arterial Blood 0.3 Methemoglobin Blood Gas A-a O2 65.1 H Differential Oxyhemoglobin 97.3 Percent Blood Gas 37.0 Temperature Blood Gas 18.0 Respiration Rate Blood Gas Actual 18 Respiration Rate Blood Gas Modality VENT - AC FiO2 30.0 Blood Gas Tidal 550.0 Volume Blood Gas Low PEEP 5.0 Setting Blood Gas Notified GENESIS Whom Blood Gas Notified 09/06/2018 5:12:51 Time AM Test 09/06/18 09:17 09/06/18 12:28 Bedside Glucose 192 145 Medications Medication Current Medications Diltiazem HCl (Cardizem) 30 mg Q8 PO Last administered on 08/29/18 21:47; Admin Dose 30 MG; Start 08/29/18 at 22:00; Status Hold Vancomycin HCl (Vanco Iv Per Pharmacy) VANCOMYCIN PER PHARMACY PER PROTOCOL XX ; Start 08/30/18 at 12:00 Fentanyl 100 ml @ 2.5 mls/hr TITRATE IV Last administered on 09/06/18 13:59; Admin Dose 10 MLS/HR; Start 08/30/18 at 13:30 Atenolol (Tenormin) 12.5 mg BID NGT Last administered on 09/05/18 21:24; Admin Dose 12.5 MG; Start 08/30/18 at 21:00 Digoxin (Digoxin) 0.125 mg DAILY@13 NGT Last administered on 09/03/18 12:59; Admin Dose 0.125 MG; Start 08/30/18 at 13:00; Status Hold Ferrous Sulfate (Feosol Liquid Cup) 300 mg DAILY NGT Last administered on 09/06/18 09:18; Admin Dose 300 MG; Start 08/31/18 at 09:00 Lansoprazole (Prevacid) 30 mg DAILY@06 NGT Last administered on 09/06/18 05:03; Admin Dose 30 MG; Start 08/31/18 at 06:00 Docusate Sodium (Colace Liquid Cup) 100 mg BID PRN NGT CONSTIPATION Last administered on 08/30/18 23:46; Admin Dose 100 MG; Start 08/30/18 at 13:30 Vancomycin/Sodium Chloride 250 ml @ 125 mls/hr Q36H IVPB Last administered on 09/05/18 18:34; Admin Dose 125 MLS/HR; Start 09/01/18 at 06:00 Apixaban (Eliquis) 2.5 mg BID NGT Last administered on 09/06/18 09:18; Admin Dose 2.5 MG; Start 08/31/18 at 21:00 Midazolam HCl 50 ml @ 1 mls/hr TITRATE IV Last administered on 09/06/18 13:56; Admin Dose 7 MLS/HR; Start 09/01/18 at 11:00 Meropenem/Sodium Chloride 50 ml @ 100 mls/hr Q12 IVPB Last administered on 09/06/18 09:18; Admin Dose 100 MLS/HR; Start 09/01/18 at 21:00 Miscellaneous Information 1 ea NOTE XX ; Start 09/01/18 at 15:00 Glucose (Glutose) 15 gm Q15M PRN PO DECREASED GLUCOSE; Start 09/01/18 at 15:00 Glucose (Glutose) 22.5 gm Q15M PRN PO DECREASED GLUCOSE; Start 09/01/18 at 15:00 Dextrose (D50w Syringe) 25 ml Q15M PRN IV DECREASED GLUCOSE; Start 09/01/18 at 15:00 Dextrose (D50w Syringe) 50 ml Q15M PRN IV DECREASED GLUCOSE; Start 09/01/18 at 15:00 Glucagon (Glucagen) 1 mg Q15M PRN IM DECREASED GLUCOSE; Start 09/01/18 at 15:00 Glucose (Glutose) 15 gm Q15M PRN BUCCAL DECREASED GLUCOSE; Start 09/01/18 at 15:00 Insulin Aspart (Novolog Insulin Pen) NOVOLOG *MILD* ALGORI... Q4 SC Last administered on 09/06/18 12:31; Admin Dose 1 UNIT; Start 09/02/18 at 01:00 Albuterol (Ventolin Hfa) 2 puff Q6H RESP THERAPY INH Last administered on 09/06/18 13:46; Admin Dose 2 PUFF; Start 09/03/18 at 14:00 Ipratropium [place] (Atrovent Hfa) 2 puff Q6HWA RESP THERAPY INH Last administered on 09/06/18 13:46; Admin Dose 2 PUFF; Start 09/03/18 at 14:00 Ipratropium [place] (Atrovent Hfa) 2 puff Q6H RESP THERAPY PRN INH SHORTNESS OF BREATH; Start 09/03/18 at 09:30 Albuterol (Ventolin Hfa) 2 puff Q6H RESP THERAPY PRN INH SHORTNESS OF BREATH; Start 09/03/18 at 09:30 Prednisone (Prednisone) 30 mg DAILY PO Last administered on 09/06/18at 09:18; Admin Dose 30 MG; Start 09/05/18 at 09:00 Dextrose 1,000 ml @ 40 mls/hr Q24H IV Last administered on 09/06/18at 00:41; Admin Dose 40 MLS/HR; Start 09/05/18 at 11:00 IV Flush (NS 10 ml) 10 ml PRN PRN IV IV PROTOCOL; Start 09/05/18 at 17:00 Vancomycin HCl 100 ml @ 100 mls/hr Q36H IVPB ; Start 09/07/18 at 06:00 JASPER SAHU Sep 06, 2018 14:34
[2018-09-07] VITALS (51 sets, daily range): BP systolic 91–137; BP diastolic 33–101; PULSE 51–88; RESP 16–24
[2018-09-07] MEDS: ALBUTEROL HFA 8 GM INHALER INH SCH ×4 (01:08→20:01)
[2018-09-07] MEDS: INSULIN ASPART [NOVOLOG] 3 ML PEN SC SCH ×6 (01:17→21:07)
[2018-09-07] MEDS: FENTAnyl (DRIP) 1000 mcg/100mL 100 ML IV SCH ×2 (02:50→14:45)
[2018-09-07] MEDS: DEXTROSE 5% 1,000 ML IV SCH (03:51)
[2018-09-07] MEDS: LANSOPRAZOLE 30 MG CAP NGT SCH (05:34)
[2018-09-07] MEDS: VANCOMYCIN 500 MG (PMX) 100 ML IVPB SCH (05:34)
[2018-09-07] MEDS: IPRATROPIUM (HFA) 12.9 GM INHALER INH SCH ×3 (08:19→20:01)
[2018-09-07] MEDS: MIDAZOLAM (DRIP) 50 mg/50 mL 50 ML IV SCH ×2 (08:38→20:19)
--- NOTE | 2018-09-07 08:59 | CONS ---
Consult Date/Type/Reason Admit Date/Time Aug 29, 2018 at 18:56 Initial Consult Date Type of Consult Pulmonary Requesting Provider: KARLEY DEAN MD Date/Time of Note DATE: 09/07/18 TIME: 08:58 Subjective Patient continues mechanical ventilation. Still requiring significant sedation. FiO2 decreased currently on no vasopressors. Bradycardia overnight noted. Objective Vital Signs Date Temp Pulse Resp B/P (MAP) Pulse Ox O2 O2 Flow FiO2 Time Delivery Rate 09/07/18 70 18 100 30 08:05 09/07/18 97.9 112/43 Mechanical 08:00 (66) Ventilator Intake and Output 09/06/18 09/06/18 09/07/18 1515:00 23:00 07:00 IntakeIntake Total 1303 ml 1321.0 ml 1268.5 ml OutputOutput Total 545 ml 550 ml 380 ml BalanceBalance 758 ml 771.0 ml 888.5 ml Exam GENERAL: Elderly-appearing gentleman, now intubated on mechanical ventilation, appears comfortable at rest, no acute distress. NECK: Supple. No JVD or lymphadenopathy. CARDIAC: Sounds S1, S2, no added sounds or murmurs. CHEST: Diminished air entry bilaterally with occasional rhonchi ABDOMEN: Soft, nontender. No guarding or rebound. EXTREMITIES: No cyanosis or clubbing. 1+ edema Vent Setting Ventilator Support Mode: AC, VC plus Fraction of Inspired Oxygen pe: 30 Positive End Expiratory Pressu: 5.0 Results/Medications Result Diagram: 09/07/18 0400 09/07/18 0400 Results 24 hrs Laboratory Tests Test 09/06/18 09:17 09/06/18 12:28 09/06/18 17:44 09/06/18 20:54 Bedside Glucose 192 145 227 H 208 Test 09/07/18 01:15 09/07/18 04:00 09/07/18 05:33 Bedside Glucose 162 137 White Blood Count 20.8 H Red Blood Count 3.18 L Hemoglobin 8.8 L Hematocrit 27.4 L Mean Corpuscular Volume 86.2 Mean Corpuscular 27.7 L Hemoglobin Mean Corpuscular 32.1 Hemoglobin Concent Red Cell Distribution 16.5 H Width Platelet Count 351 Mean Platelet Volume 10.4 Immature Granulocytes % 6.800 H Neutrophils % 79.0 H Segmented Neutrophils 87 H % (Manual) Band Neutrophils % 2 (Manual) Lymphocytes % 6.3 L Lymphocytes % (Manual) 2 L Monocytes % 7.2 Monocytes % (Manual) 6 Eosinophils % 0.3 Basophils % 0.4 Myelocytes % (Manual) 1 H Promyelocytes % (Manual) 2 H Nucleated Red Blood 0.1 H Cells % Immature Granulocytes # 1.410 H Neutrophils # 16.5 H Neutrophils # (Manual) 18.2 H Band Neutrophils # 0.4 Lymphocytes (Manual) 0.4 L Lymphocytes # 1.3 Monocytes # 1.5 H Monocytes # (Manual) 1.2 H Eosinophils # 0.1 Basophils # 0.1 Myelocytes # 0.2 H Promyelocytes # 0.4 H Nucleated Red Blood 0.0 Cells # Platelet Estimate NORMAL Polychromasia 2+ Poikilocytosis 1+ Anisocytosis 1+ Sodium Level 147 H Potassium Level 3.8 Chloride Level 113 H Carbon Dioxide Level 26 Anion Gap 8 Blood Urea Nitrogen 121 H Creatinine 1.83 H Est Glomerular Filtrat Rate mL/min Glucose Level 164 Calcium Level 8.9 Phosphorus Level 4.7 Magnesium Level 2.5 Total Bilirubin 0.2 Direct Bilirubin 0.00 Indirect Bilirubin 0.2 Aspartate Amino 26 Transf (AST/SGOT) Alanine 33 Aminotransferase (ALT/SG PT) Alkaline Phosphatase 85 Total Protein 5.3 L Albumin 2.4 L Globulin 2.90 Albumin/Globulin Ratio 0.82 Medications Current Medications Diltiazem HCl (Cardizem) 30 mg Q8 PO Last administered on 08/29/18at 21:47; Admin Dose 30 MG; Start 08/29/18 at 22:00; Status Hold Vancomycin HCl (Vanco Iv Per Pharmacy) VANCOMYCIN PER PHARMACY PER PROTOCOL XX ; Start 08/30/18 at 12:00 Fentanyl 100 ml @ 2.5 mls/hr TITRATE IV Last administered on 09/07/18 02:50; Admin Dose 7.5 MLS/HR; Start 08/30/18 at 13:30 Atenolol (Tenormin) 12.5 mg BID NGT Last administered on 09/05/18at 21:24; Admin Dose 12.5 MG; Start 08/30/18 at 21:00 Digoxin (Digoxin) 0.125 mg DAILY@13 NGT Last administered on 09/03/18 12:59; Admin Dose 0.125 MG; Start 08/30/18 at 13:00; Status Hold Ferrous Sulfate (Feosol Liquid Cup) 300 mg DAILY NGT Last administered on 09/06/18at 09:18; Admin Dose 300 MG; Start 08/31/18 at 09:00 Lansoprazole (Prevacid) 30 mg DAILY@06 NGT Last administered on 09/07/18at 05:34; Admin Dose 30 MG; Start 08/31/18 at 06:00 Docusate Sodium (Colace Liquid Cup) 100 mg BID PRN NGT CONSTIPATION Last administered on 08/30/18at 23:46; Admin Dose 100 MG; Start 08/30/18 at 13:30 Apixaban (Eliquis) 2.5 mg BID NGT Last administered on 09/06/18 20:47; Admin Dose 2.5 MG; Start 08/31/18 at 21:00 Midazolam HCl 50 ml @ 1 mls/hr TITRATE IV Last administered on 09/07/18 08:38; Admin Dose 7 MLS/HR; Start 09/01/18 at 11:00 Meropenem/Sodium Chloride 50 ml @ 100 mls/hr Q12 IVPB Last administered on 09/06/18at 20:52; Admin Dose 100 MLS/HR; Start 09/01/18 at 21:00 Miscellaneous Information 1 ea NOTE XX ; Start 09/01/18 at 15:00 Glucose (Glutose) 15 gm Q15M PRN PO DECREASED GLUCOSE; Start 09/01/18 at 15:00 Glucose (Glutose) 22.5 gm Q15M PRN PO DECREASED GLUCOSE; Start 09/01/18 at 15:00 Dextrose (D50w Syringe) 25 ml Q15M PRN IV DECREASED GLUCOSE; Start 09/01/18 at 15:00 Dextrose (D50w Syringe) 50 ml Q15M PRN IV DECREASED GLUCOSE; Start 09/01/18 at 15:00 Glucagon (Glucagen) 1 mg Q15M PRN IM DECREASED GLUCOSE; Start 09/01/18 at 15:00 Glucose (Glutose) 15 gm Q15M PRN BUCCAL DECREASED GLUCOSE; Start 09/01/18 at 15:00 Insulin Aspart (Novolog Insulin Pen) NOVOLOG *MILD* ALGORI... Q4 SC Last administered on 09/07/18at 01:17; Admin Dose 1 UNIT; Start 09/02/18 at 01:00 Albuterol (Ventolin Hfa) 2 puff Q6H RESP THERAPY INH Last administered on 09/07/18at 08:19; Admin Dose 2 PUFF; Start 09/03/18 at 14:00 Ipratropium [place] (Atrovent Hfa) 2 puff Q6HWA RESP THERAPY INH Last a dministered on 09/07/18at 08:19; Admin Dose 2 PUFF; Start 09/03/18 at 14:00 Ipratropium [place] (Atrovent Hfa) 2 puff Q6H RESP THERAPY PRN INH SHORTNESS OF BREATH; Start 09/03/18 at 09:30 Albuterol (Ventolin Hfa) 2 puff Q6H RESP THERAPY PRN INH SHORTNESS OF BREATH; Start 09/03/18 at 09:30 Prednisone (Prednisone) 30 mg DAILY PO Last administered on 09/06/18at 09:18; Admin Dose 30 MG; Start 09/05/18 at 09:00 Dextrose 1,000 ml @ 40 mls/hr Q24H IV Last administered on 09/07/18at 03:51; Admin Dose 40 MLS/HR; Start 09/05/18 at 11:00 IV Flush (NS 10 ml) 10 ml PRN PRN IV IV PROTOCOL; Start 09/05/18 at 17:00 Vancomycin HCl 100 ml @ 100 mls/hr Q36H IVPB Last administered on 09/07/18at 05:34; Admin Dose 100 MLS/HR; Start 09/07/18 at 06:00 Assessment/Plan Hospital Course (Demo Recall) IMPRESSION AND PLAN: 1. History of lung cancer and advanced COPD with recurrent hypoxemic respiratory failure 2. Probable aspiration pneumonia. Bilateral infiltrates with left pleural e ffusion. 3. Chronic obstructive pulmonary disease exacerbation. 4. Septic shock and metabolic acidosis secondary to above. 5. Renal insufficiency. PLAN: 1. Continue vasopressors and IV fluids tube feeding as tolerated, 2. Blood cultures. 3. Broad-spectrum antibiotics. 4. DVT and GI prophylaxis. 5. Continue mechanical ventilation CPAP trial if more alert. 6. Steroids. 7. Decreased sedation as tolerated sedation vacation if possible. Critical care time 40 minutes. We will discuss with primary care team or other goals. AISHWARYA PICKARD MD, [facility] Sep 07, 2018 08:59
[2018-09-07] MEDS: APIXABAN 5 MG TABLET NGT SCH ×2 (09:34→20:59)
[2018-09-07] MEDS: MEROPENEM 500MG/50 ML (PMX) 50 ML IVPB SCH ×2 (09:34→20:59)
[2018-09-07] MEDS: FERROUS SULFATE 60 MG/ML 5ML CUP NGT SCH (09:34)
[2018-09-07] MEDS: predniSONE 10 MG TAB PO SCH (09:35)
[2018-09-07] MEDS: ATENOLOL 25 MG TAB NGT SCH ×2 (09:53→21:00)
--- NOTE | 2018-09-07 11:07 | PN ---
Date/Time of Note Date/Time of Note DATE: 09/07/18 TIME: 11:04 Assessment/Plan VTE Prophylaxis Risk score (from Ns)>0 risk: 12 SCD applied (from Ns): Yes Pharmacological prophylaxis: apixaban Lines/Catheters IV Catheter Type (from Nrsg): PICC Line Central line still needed: Yes Urinary Cath still in place: Yes Reason Cath still needed: urinary retention Assessment/Plan Hospital Course 1 Septic shock likely due to sepsis /pneumonia . Off pressors 2. ALOC, lethargic. Now sedated follows commands off sedation 3. Atrial fibrillation, now flutter, controlled 4. Hypoxic respiratory failure. Respiratory acidosis, resolved. 5. Bilateral pneumonia 6. Congestive heart failure, EF 35 to 40%, 7. Hx of right side lung cancer 8. JAMES on chronic kidney disease, creatinine baseline 1.6. With elevated BUN and creatinine ratio likely ATN secondary to septic shock now Cr downtrending however BUN still high, Good UOP 9. Hx of pleural effusions, right and left and numerous thoracentesis 10. Bilateral pleural effusion 11. Hx of hypertension, now on BP support 12. Hyperlipidemia 13 + bacteremia however new bld cx neg 14 Hypernatremia likely hypovolemic 15. Anemia Assessment/Plan - c/w D5W, water flash -constipation relief -cr. decreased -skin care -c/w ICU care -Monitor lytes/urine output -cw pred 30 -pulmonary consult dr Guajardo appreciated -orally intubated 30 % -Cardiology consult dr Hall -With vancomycin/meropenem, -DVT proph. Eliquiz 2.5 mg GT BID -GI proph. Protonix GT -c/w tube feed 40 ml Result Diagram: 09/07/18 0400 09/07/18 0400 Results 24hrs Laboratory Tests Test 09/06/18 12:28 09/06/18 17:44 09/06/18 20:54 09/07/18 01:15 Bedside Glucose 145 227 H 208 162 Test 09/07/18 04:00 09/07/18 05:33 09/07/18 10:11 White Blood Count 20.8 H Red Blood Count 3.18 L Hemoglobin 8.8 L Hematocrit 27.4 L Mean Corpuscular Volume 86.2 Mean Corpuscular 27.7 L Hemoglobin Mean Corpuscular 32.1 Hemoglobin Concent Red Cell Distribution 16.5 H Width Platelet Count 351 Mean Platelet Volume 10.4 Immature Granulocytes % 6.800 H Neutrophils % 79.0 H Segmented Neutrophils 87 H % (Manual) Band Neutrophils % 2 (Manual) Lymphocytes % 6.3 L Lymphocytes % (Manual) 2 L Monocytes % 7.2 Monocytes % (Manual) 6 Eosinophils % 0.3 Basophils % 0.4 Myelocytes % (Manual) 1 H Promyelocytes % (Manual) 2 H Nucleated Red Blood 0.1 H Cells % Immature Granulocytes # 1.410 H Neutrophils # 16.5 H Neutrophils # (Manual) 18.2 H Band Neutrophils # 0.4 Lymphocytes (Manual) 0.4 L Lymphocytes # 1.3 Monocytes # 1.5 H Monocytes # (Manual) 1.2 H Eosinophils # 0.1 Basophils # 0.1 Myelocytes # 0.2 H Promyelocytes # 0.4 H Nucleated Red Blood 0.0 Cells # Platelet Estimate NORMAL Polychromasia 2+ Poikilocytosis 1+ Anisocytosis 1+ Sodium Level 147 H Potassium Level 3.8 Chloride Level 113 H Carbon Dioxide Level 26 Anion Gap 8 Blood Urea Nitrogen 121 H Creatinine 1.83 H Est Glomerular Filtrat Rate mL/min Glucose Level 164 Calcium Level 8.9 Phosphorus Level 4.7 Magnesium Level 2.5 Total Bilirubin 0.2 Direct Bilirubin 0.00 Indirect Bilirubin 0.2 Aspartate Amino 26 Transf (AST/SGOT) Alanine 33 Aminotransferase (ALT/SG PT) Alkaline Phosphatase 85 Total Protein 5.3 L Albumin 2.4 L Globulin 2.90 Albumin/Globulin Ratio 0.82 Bedside Glucose 137 157 Subjective 24 Hr Interval Summary Subjective hx not possible: pt non-verbal, pt critical status Exam/Review of Systems Exam Vitals Vital Signs Date Temp Pulse Resp B/P (MAP) Pulse Ox O2 O2 Flow FiO2 Time Delivery Rate 09/07/18 55 24 134/47 99 Mechanical 10:30 (76) Ventilator 09/07/18 30 08:05 09/07/18 97.9 08:00 Intake and Output 09/06/18 09/06/18 09/07/18 1515:00 23:00 07:00 IntakeIntake Total 1303 ml 1321.0 ml 1276.0 ml OutputOutput Total 545 ml 550 ml 380 ml BalanceBalance 758 ml 771.0 ml 896.0 ml Exam orally intubated Constitutional: non-verbal, frail Head: normocephalic Neck: supple Respiratory: diminished breath sounds Cardiovascular: regular rate and rhythm, other (elizabeth) Gastrointestinal: soft Genitourinary - Male: other (yañez) Extremities: edema; No normal pulses, No calf tenderness, No cyanosis, No clubbing, No pitting pedal edema, No palpable cord, No tenderness, No other Results Results 24hrs Laboratory Tests Test 09/06/18 12:28 09/06/18 17:44 09/06/18 20:54 09/07/18 01:15 Bedside Glucose 145 227 H 208 162 Test 09/07/18 04:00 09/07/18 05:33 09/07/18 10:11 White Blood Count 20.8 H Red Blood Count 3.18 L Hemoglobin 8.8 L Hematocrit 27.4 L Mean Corpuscular Volume 86.2 Mean Corpuscular 27.7 L Hemoglobin Mean Corpuscular 32.1 Hemoglobin Concent Red Cell Distribution 16.5 H Width Platelet Count 351 Mean Platelet Volume 10.4 Immature Granulocytes % 6.800 H Neutrophils % 79.0 H Segmented Neutrophils 87 H % (Manual) Band Neutrophils % 2 (Manual) Lymphocytes % 6.3 L Lymphocytes % (Manual) 2 L Monocytes % 7.2 Monocytes % (Manual) 6 Eosinophils % 0.3 Basophils % 0.4 Myelocytes % (Manual) 1 H Promyelocytes % (Manual) 2 H Nucleated Red Blood 0.1 H Cells % Immature Granulocytes # 1.410 H Neutrophils # 16.5 H Neutrophils # (Manual) 18.2 H Band Neutrophils # 0.4 Lymphocytes (Manual) 0.4 L Lymphocytes # 1.3 Monocytes # 1.5 H Monocytes # (Manual) 1.2 H Eosinophils # 0.1 Basophils # 0.1 Myelocytes # 0.2 H Promyelocytes # 0.4 H Nucleated Red Blood 0.0 Cells # Platelet Estimate NORMAL Polychromasia 2+ Poikilocytosis 1+ Anisocytosis 1+ Sodium Level 147 H Potassium Level 3.8 Chloride Level 113 H Carbon Dioxide Level 26 Anion Gap 8 Blood Urea Nitrogen 121 H Creatinine 1.83 H Est Glomerular Filtrat Rate mL/min Glucose Level 164 Calcium Level 8.9 Phosphorus Level 4.7 Magnesium Level 2.5 Total Bilirubin 0.2 Direct Bilirubin 0.00 Indirect Bilirubin 0.2 Aspartate Amino 26 Transf (AST/SGOT) Alanine 33 Aminotransferase (ALT/SG PT) Alkaline Phosphatase 85 Total Protein 5.3 L Albumin 2.4 L Globulin 2.90 Albumin/Globulin Ratio 0.82 Bedside Glucose 137 157 Medications Medication Current Medications Diltiazem HCl (Cardizem) 30 mg Q8 PO Last administered on 08/29/18 21:47; Admin Dose 30 MG; Start 08/29/18 at 22:00; Status Hold Vancomycin HCl (Vanco Iv Per Pharmacy) VANCOMYCIN PER PHARMACY PER PROTOCOL XX ; Start 08/30/18 at 12:00 Fentanyl 100 ml @ 2.5 mls/hr TITRATE IV Last administered on 09/07/18 02:50; Admin Dose 7.5 MLS/HR; Start 08/30/18 at 13:30 Atenolol (Tenormin) 12.5 mg BID NGT Last administered on 09/05/18 21:24; Admin Dose 12.5 MG; Start 08/30/18 at 21:00 Digoxin (Digoxin) 0.125 mg DAILY@13 NGT Last administered on 09/03/18 12:59; Admin Dose 0.125 MG; Start 08/30/18 at 13:00; Status Hold Ferrous Sulfate (Feosol Liquid Cup) 300 mg DAILY NGT Last administered on 09/07/18 09:34; Admin Dose 300 MG; Start 08/31/18 at 09:00 Lansoprazole (Prevacid) 30 mg DAILY@06 NGT Last administered on 09/07/18 05:34; Admin Dose 30 MG; Start 08/31/18 at 06:00 Docusate Sodium (Colace Liquid Cup) 100 mg BID PRN NGT CONSTIPATION Last administered on 08/30/18 23:46; Admin Dose 100 MG; Start 08/30/18 at 13:30 Apixaban (Eliquis) 2.5 mg BID NGT Last administered on 09/07/18 09:34; Admin Dose 2.5 MG; Start 08/31/18 at 21:00 Midazolam HCl 50 ml @ 1 mls/hr TITRATE IV Last administered on 09/07/18 08:38; Admin Dose 7 MLS/HR; Start 09/01/18 at 11:00 Meropenem/Sodium Chloride 50 ml @ 100 mls/hr Q12 IVPB Last administered on 7/6/19at 09:34; Admin Dose 100 MLS/HR; Start 09/01/18 at 21:00 Miscellaneous Information 1 ea NOTE XX ; Start 09/01/18 at 15:00 Glucose (Glutose) 15 gm Q15M PRN PO DECREASED GLUCOSE; Start 09/01/18 at 15:00 Glucose (Glutose) 22.5 gm Q15M PRN PO DECREASED GLUCOSE; Start 09/01/18 at 15:00 Dextrose (D50w Syringe) 25 ml Q15M PRN IV DECREASED GLUCOSE; Start 09/01/18 at 15:00 Dextrose (D50w Syringe) 50 ml Q15M PRN IV DECREASED GLUCOSE; Start 09/01/18 at 15:00 Glucagon (Glucagen) 1 mg Q15M PRN IM DECREASED GLUCOSE; Start 09/01/18 at 15:00 Glucose (Glutose) 15 gm Q15M PRN BUCCAL DECREASED GLUCOSE; Start 09/01/18 at 15:00 Insulin Aspart (Novolog Insulin Pen) NOVOLOG *MILD* ALGORI... Q4 SC Last administered on 09/07/18at 10:14; Admin Dose 1 UNIT; Start 09/02/18 at 01:00 Albuterol (Ventolin Hfa) 2 puff Q6H RESP THERAPY INH Last administered on 09/07/18at 08:19; Admin Dose 2 PUFF; Start 09/03/18 at 14:00 Ipratropium [place] (Atrovent Hfa) 2 puff Q6HWA RESP THERAPY INH Last administered on 09/07/18at 08:19; Admin Dose 2 PUFF; Start 09/03/18 at 14:00 Ipratropium [place] (Atrovent Hfa) 2 puff Q6H RESP THERAPY PRN INH SHORTNESS OF BREATH; Start 09/03/18 at 09:30 Albuterol (Ventolin Hfa) 2 puff Q6H RESP THERAPY PRN INH SHORTNESS OF BREATH; Start 09/03/18 at 09:30 Prednisone (Prednisone) 30 mg DAILY PO Last administered on 09/07/18at 09:35; Admin Dose 30 MG; Start 09/05/18 at 09:00 Dextrose 1,000 ml @ 40 mls/hr Q24H IV Last administered on 09/07/18at 03:51; Admin Dose 40 MLS/HR; Start 09/05/18 at 11:00 IV Flush (NS 10 ml) 10 ml PRN PRN IV IV PROTOCOL; Start 09/05/18 at 17:00 Vancomycin HCl 100 ml @ 100 mls/hr Q36H IVPB Last administered on 09/07/18at 05:34; Admin Dose 100 MLS/HR; Start 09/07/18 at 06:00 JASPER SAHU Sep 07, 2018 11:07
--- NOTE | 2018-09-07 11:26 | CONS ---
Consult Date/Type/Reason Admit Date/Time Aug 29, 2018 at 18:56 Initial Consult Date Type of Consultation: Pulm/CCM Requesting Provider: KARLEY DEAN MD Date/Time of Note DATE: 09/07/18 TIME: 11:25 Subjective NO acute events - pt comfortable - rate controlled - con't to monitor clinically now. Per nurse: NO F/C/N/V/D/C Objective Vitals Vital Signs Date Temp Pulse Resp B/P (MAP) Pulse Ox O2 O2 Flow FiO2 Time Delivery Rate 09/07/18 55 24 134/47 99 Mechanical 10:30 (76) Ventilator 09/07/18 30 08:05 09/07/18 97.9 08:00 Intake and Output 09/06/18 09/06/18 09/07/18 1515:00 23:00 07:00 IntakeIntake Total 1303 ml 1321.0 ml 1276.0 ml OutputOutput Total 545 ml 550 ml 380 ml BalanceBalance 758 ml 771.0 ml 896.0 ml Exam General: WN/WD/NAD, AOx 0 HEENT: Unicetric/atraumatic/EOMI (does not follow commands) NECK: JVD elevated, no thyromegaly - intubated Lymph: no lymphadenopathy HEART: ir irregular with no S3, II/ systolic murmur at apex LUNGS: Coarse sounds ABD: soft, NT, ND, +BS : Intact Neuro: non focal SKIN: chronic changes EXT: trace edema Results/Medications Result Diagram: 09/07/18 0400 09/07/18 0400 Results 24 hrs Laboratory Tests Test 09/06/18 12:28 09/06/18 17:44 09/06/18 20:54 09/07/18 01:15 Bedside Glucose 145 227 H 208 162 Test 09/07/18 04:00 09/07/18 05:33 09/07/18 10:11 White Blood Count 20.8 H Red Blood Count 3.18 L Hemoglobin 8.8 L Hematocrit 27.4 L Mean Corpuscular Volume 86.2 Mean Corpuscular 27.7 L Hemoglobin Mean Corpuscular 32.1 Hemoglobin Concent Red Cell Distribution 16.5 H Width Platelet Count 351 Mean Platelet Volume 10.4 Immature Granulocytes % 6.800 H Neutrophils % 79.0 H Segmented Neutrophils 87 H % (Manual) Band Neutrophils % 2 (Manual) Lymphocytes % 6.3 L Lymphocytes % (Manual) 2 L Monocytes % 7.2 Monocytes % (Manual) 6 Eosinophils % 0.3 Basophils % 0.4 Myelocytes % (Manual) 1 H Promyelocytes % (Manual) 2 H Nucleated Red Blood 0.1 H Cells % Immature Granulocytes # 1.410 H Neutrophils # 16.5 H Neutrophils # (Manual) 18.2 H Band Neutrophils # 0.4 Lymphocytes (Manual) 0.4 L Lymphocytes # 1.3 Monocytes # 1.5 H Monocytes # (Manual) 1.2 H Eosinophils # 0.1 Basophils # 0.1 Myelocytes # 0.2 H Promyelocytes # 0.4 H Nucleated Red Blood 0.0 Cells # Platelet Estimate NORMAL Polychromasia 2+ Poikilocytosis 1+ Anisocytosis 1+ Sodium Level 147 H Potassium Level 3.8 Chloride Level 113 H Carbon Dioxide Level 26 Anion Gap 8 Blood Urea Nitrogen 121 H Creatinine 1.83 H Est Glomerular Filtrat Rate mL/min Glucose Level 164 Calcium Level 8.9 Phosphorus Level 4.7 Magnesium Level 2.5 Total Bilirubin 0.2 Direct Bilirubin 0.00 Indirect Bilirubin 0.2 Aspartate Amino 26 Transf (AST/SGOT) Alanine 33 Aminotransferase (ALT/SG PT) Alkaline Phosphatase 85 Total Protein 5.3 L Albumin 2.4 L Globulin 2.90 Albumin/Globulin Ratio 0.82 Bedside Glucose 137 157 Home Meds Reported Medications Mupirocin Calcium* (Mupirocin*) 2% - 15 Gram Cream..g., 1 APPLIC TOP BID, #1 TUB 08/29/18 Ondansetron Hcl* (Zofran*) 4 Mg Tab, 4 MG PO Q6H PRN for NAUSEA AND OR VOMITING, TAB 08/29/18 Ipratropium-Albuterol (Ipratropium-Albuterol) 0.5-3 Mg/3 Ml Ampul.neb, 3 ML INHALATION Q6 PRN for WHEEZING AND SOB, #30 VIAL 08/29/18 Ferrous Sulfate* (Ferrous Sulfate*) 325 Mg Tabec, 325 MG PO DAILY, TAB 08/29/18 Apixaban* (Eliquis*) 5 Mg Tablet, 5 MG PO BID, TAB 08/29/18 Docusate Sodium* (Colace*) 100 Mg Capsule, 100 MG PO BID, #60 CAP 08/29/18 Bisacodyl* (Bisacodyl*) 5 Mg Tablet.dr, 10 MG PO BID PRN for CONSTIPATION, TAB 08/29/18 Tuberculin,Purif.prot.deriv. (Aplisol) 5 Tub Unit/0.1 Ml Vial, 5 TUB ID ONCE, VIAL START DATE 08/31/18 -- END DATE 09/01/18 08/29/18 Acetaminophen* (Acetaminophen*) 650 Mg Tablet, 650 MG PO Q6H PRN for PAIN LEVEL 1-1010, #30 TAB AND FEVER>101F 08/29/18 Guaifenesin (Guaifenesin) 100 Mg/5 Ml Liquid, 10 ML PO NEEDED PRN for COUGH, ML 08/13/18 Diltiazem Hcl* (Cardizem*) 30 Mg Tablet, 30 MG PO Q8 for CHF, #90 TAB HOLD IF SBP<110 OR HR<60 08/13/18 Aspirin* (Aspirin* EC) 81 Mg Tablet.dr, 81 MG PO DAILY, TAB 08/13/18 Digoxin* (Digitek*) 125 Mcg Tablet, 0.125 MG PO DAILY, TAB HOLD IF SBP<110 OR HR<60 08/13/18 Atenolol* (Atenolol*) 25 Mg Tablet, 12.5 MG PO BID, #60 TAB HOLD IF SBP<110 OR HR<60 08/13/18 Furosemide* (Furosemide*) 40 Mg Tablet, 40 MG PO DAILY, TAB HOLD IF SBP<110 OR HR<60 08/13/18 Magnesium Hydroxide* (Milk Of Magnesia*) 400 Mg/5 Ml Oral.susp, 30 ML PO DAILY, ML 08/13/18 Potassium Chloride* (Klor-Con*) 20 Meq Tabsr, 20 MEQ PO DAILY, TAB.SA 07/11/18 Pantoprazole* (Pantoprazole*) 40 Mg Tablet.dr, 40 MG PO DAILY, TAB 07/11/18 Medications Current Medications Diltiazem HCl (Cardizem) 30 mg Q8 PO Last administered on 08/29/18at 21:47; Admin Dose 30 MG; Start 08/29/18 at 22:00; Status Hold Vancomycin HCl (Vanco Iv Per Pharmacy) VANCOMYCIN PER PHARMACY PER PROTOCOL XX ; Start 08/30/18 at 12:00 Fentanyl 100 ml @ 2.5 mls/hr TITRATE IV Last administered on 09/07/18 02:50; Admin Dose 7.5 MLS/HR; Start 08/30/18 at 13:30 Atenolol (Tenormin) 12.5 mg BID NGT Last administered on 09/05/18 21:24; Admin Dose 12.5 MG; Start 08/30/18 at 21:00 Digoxin (Digoxin) 0.125 mg DAILY@13 NGT Last administered on 09/03/18 12:59; Admin Dose 0.125 MG; Start 08/30/18 at 13:00; Status Hold Ferrous Sulfate (Feosol Liquid Cup) 300 mg DAILY NGT Last administered on 9at 09:34; Admin Dose 300 MG; Start 08/31/18 at 09:00 Lansoprazole (Prevacid) 30 mg DAILY@06 NGT Last administered on 09/07/18 05:34; Admin Dose 30 MG; Start 08/31/18 at 06:00 Docusate Sodium (Colace Liquid Cup) 100 mg BID PRN NGT CONSTIPATION Last administered on 08/30/18at 23:46; Admin Dose 100 MG; Start 08/30/18 at 13:30 Apixaban (Eliquis) 2.5 mg BID NGT Last administered on 09/07/18 09:34; Admin Dose 2.5 MG; Start 08/31/18 at 21:00 Midazolam HCl 50 ml @ 1 mls/hr TITRATE IV Last administered on 09/07/18 08:38; Admin Dose 7 MLS/HR; Start 09/01/18 at 11:00 Meropenem/Sodium Chloride 50 ml @ 100 mls/hr Q12 IVPB Last administered on 09/07/18 09:34; Admin Dose 100 MLS/HR; Start 09/01/18 at 21:00 Miscellaneous Information 1 ea NOTE XX ; Start 09/01/18 at 15:00 Glucose (Glutose) 15 gm Q15M PRN PO DECREASED GLUCOSE; Start 09/01/18 at 15:00 Glucose (Glutose) 22.5 gm Q15M PRN PO DECREASED GLUCOSE; Start 09/01/18 at 15:00 Dextrose (D50w Syringe) 25 ml Q15M PRN IV DECREASED GLUCOSE; Start 09/01/18 at 15:00 Dextrose (D50w Syringe) 50 ml Q15M PRN IV DECREASED GLUCOSE; Start 09/01/18 at 15:00 Glucagon (Glucagen) 1 mg Q15M PRN IM DECREASED GLUCOSE; Start 09/01/18 at 15:00 Glucose (Glutose) 15 gm Q15M PRN BUCCAL DECREASED GLUCOSE; Start 09/01/18 at 15:00 Insulin Aspart (Novolog Insulin Pen) NOVOLOG *MILD* ALGORI... Q4 SC Last administered on 09/07/18at 10:14; Admin Dose 1 UNIT; Start 09/02/18 at 01:00 Albuterol (Ventolin Hfa) 2 puff Q6H RESP THERAPY INH Last administered on 09/07/18at 08:19; Admin Dose 2 PUFF; Start 09/03/18 at 14:00 Ipratropium [place] (Atrovent Hfa) 2 puff Q6HWA RESP THERAPY INH Last administered on 09/07/18at 08:19; Admin Dose 2 PUFF; Start 09/03/18 at 14:00 Ipratropium [place] (Atrovent Hfa) 2 puff Q6H RESP THERAPY PRN INH SHORTNESS OF BREATH; Start 09/03/18 at 09:30 Albuterol (Ventolin Hfa) 2 puff Q6H RESP THERAPY PRN INH SHORTNESS OF BREATH; Start 09/03/18 at 09:30 Prednisone (Prednisone) 30 mg DAILY PO Last administered on 09/07/18at 09:35; Admin Dose 30 MG; Start 09/05/18 at 09:00 Dextrose 1,000 ml @ 40 mls/hr Q24H IV Last administered on 09/07/18at 03:51; Admin Dose 40 MLS/HR; Start 09/05/18 at 11:00 IV Flush (NS 10 ml) 10 ml PRN PRN IV IV PROTOCOL; Start 09/05/18 at 17:00 Vancomycin HCl 100 ml @ 100 mls/hr Q36H IVPB Last administered on 09/07/18at 05:34; Admin Dose 100 MLS/HR; Start 09/07/18 at 06:00 Bisacodyl (Dulcolax Supp) 10 mg QHS [place] ; Start 09/07/18 at 11:30 Sodium Biphosphate/ Sodium Phosphate (Fleet Enema) 133 ml ONCE ONCE [place] ; Start 09/07/18 at 11:30; Stop 09/07/18 at 11:31 Assessment/Plan Hospital Course (Demo Recall) 1. Atrial fibrillation with a rapid ventricular response - rate controlled - wi ll monitor to ICU. D/C dilt gtt now with low BP. Rate controlled off dilt gtt now. Rate controlled. Will monitor for now. Few episodes of elizabeth, but BP stable - will monitor clinically now. Rate better controlled. 2. Congestive heart failure exacerbation, diastolic by most recent echo in July 2018 revealing a preserved EF of 65%, acute on chronic by history. Not in CHF by exam. Keep euvolemic. Euvolemic by exam- Cr high, but trending down. 3. Hypertension, mildly elevated - well Rx now. Supportive Rx now. BETTER now. Stable. Pt sedated. 4. Respiratory distress - transfer to ICU - con't pulm care per pulmonary team. Con't resp Rx. 5. Shortness of breath, likely multifactorial secondary to heart failure and chronic obstructive pulmonary disease exacerbation - now intubated, better overall. 6. Probable chronic obstructive pulmonary disease exacerbation - plus anti-Bx for PNA. Treated. 7. Pneumonia, right lower lobe by chest x-ray, new since discharge, question aspiration. Con;t anti-Bx On meds - high secretions. Overall improved. 8. Hyponatremia. 9. Severe leukocytosis - better now, on anti-Bx, ID follows. 10. Anemia, mild - decrease dose Eliquis Cr a little better at 1.96 but H/H down - if con't to go down, will hold anti-coagulation. EMILY SANTAMARIA MD Sep 07, 2018 11:26
[2018-09-07] MEDS ORDERED: NA PHOSPHATE/BIPHOS 133 ML ENEMA PR ONE (11:30)
--- NOTE | 2018-09-07 11:39 | CONS ---
Assessment/Plan Assessment/Plan Hospital Course (Demo Recall) ID PROGRESS NOTE CURRENT ABX: DAY #9 =>Vanco IV + Merrem 09/07/18 0400 09/07/18 0400 24H INTERVAL SUMMARY * Afib now rate controlled -- Orally intubated sedated on mechanical vent -- leukocytosis on steroids taper * NEW PICC 09/05/18 * Indwelling: Endotracheal tube NG tube Bar catheter DIAGNOSTIC IMAGING * 09/06/18 CXR: Diffuse interstitial and patchy airspace opacities throughout the lungs are unchanged along with unchanged large left and moderate right pleural effusions. There is no pneumothorax. The cardiac silhouette is obscured. The aorta is tortuous and atherosclerotic. * 09/20 CXR:IMPRESSION: Cardiomegaly with calcified atherosclerosis in the aorta. Stable central pulmonary vascular congestion and mild interstitial prominence in both lungs. Stable patchy infiltrates throughout both lungs with moderate left pleural effusion and small to moderate right pleural effusi on. * 08/31/18 CT of the chest revealed patchy bilateral pulmonary consolidation greater on the left concerning for multilobar pneumonia. Please see full report in the chart MICRO * 09/05/18 Left Upper Lobe: RESPIRATORY CULTURE Preliminary Organism 1 NORMAL RESPIRATORY ALLIE QUANTITY RARE * 08/30/18 Sputum Cx = NORMAL Allie * 08/30/18 BCx(+) CoNS 1/2 bottles * 08/29/18 BCx (-) PHYSICAL EXAMINATION: GENERAL: VSS, NAD HEENT: AT, NC, NECK: Supple, CHEST: Rise symmetrical HEART: Pulse RRR ABDOMEN: Benign EXTREMITIES: Warm, dry SKIN: No rash, no diaphoresis ID ASSESSMENT 78 yo M admit with: 1. Severe sepsis with shock 2. Acute hypoxemic respiratory failure possibly aspiration 3. Multilobar pneumonia per CT 4. COPD 5. History of lung cancer status post radiation, details unknown 6. Atrial fibrillation status post RVR -> now rate controlled 7. Bacteremia, cw contaminant (-)MRSA Nares ABX ALLERGIES: KNDA INVASIVES: PIV, PICC (09/05/18) ETT, NGT, FC CURRENT ABX: DAY # 9 => Vanco IV + Merrem ID RECOMMENDATIONS/PLAN: 1. Culture (-) multilobar PNA w/hx of Lung Cancer -- now with right sided chest tube * Will complete a full 14 day course of ABX then DC 2. Steroids taper, vent management per pulmonary . Consultation Date/Type/Reason Admit Date/Time Aug 29, 2018 at 18:56 Initial Consult Date Requesting Provider: KARLEY DEAN MD Date/Time of Note DATE: 09/07/18 TIME: 11:35 Exam/Review of Systems Exam Vitals Vital Signs Date Temp Pulse Resp B/P (MAP) Pulse Ox O2 O2 Flow FiO2 Time Delivery Rate 09/07/18 55 24 134/47 99 Mechanical 10:30 (76) Ventilator 09/07/18 30 08:05 09/07/18 97.9 08:00 Intake and Output 09/06/18 09/06/18 09/07/18 1414:59 22:59 06:59 IntakeIntake Total 1298 ml 1323.5 ml 1363.0 ml OutputOutput Total 545 ml 550 ml 455 ml BalanceBalance 753 ml 773.5 ml 908.0 ml Results Result Diagram: 09/07/18 0400 09/07/18 0400 Results 24hrs Laboratory Tests Test 09/06/18 12:28 09/06/18 17:44 09/06/18 20:54 09/07/18 01:15 Bedside Glucose 145 227 H 208 162 Test 09/07/18 04:00 09/07/18 05:33 09/07/18 10:11 White Blood Count 20.8 H Red Blood Count 3.18 L Hemoglobin 8.8 L Hematocrit 27.4 L Mean Corpuscular Volume 86.2 Mean Corpuscular 27.7 L Hemoglobin Mean Corpuscular 32.1 Hemoglobin Concent Red Cell Distribution 16.5 H Width Platelet Count 351 Mean Platelet Volume 10.4 Immature Granulocytes % 6.800 H Neutrophils % 79.0 H Segmented Neutrophils 87 H % (Manual) Band Neutrophils % 2 (Manual) Lymphocytes % 6.3 L Lymphocytes % (Manual) 2 L Monocytes % 7.2 Monocytes % (Manual) 6 Eosinophils % 0.3 Basophils % 0.4 Myelocytes % (Manual) 1 H Promyelocytes % (Manual) 2 H Nucleated Red Blood 0.1 H Cells % Immature Granulocytes # 1.410 H Neutrophils # 16.5 H Neutrophils # (Manual) 18.2 H Band Neutrophils # 0.4 Lymphocytes (Manual) 0.4 L Lymphocytes # 1.3 Monocytes # 1.5 H Monocytes # (Manual) 1.2 H Eosinophils # 0.1 Basophils # 0.1 Myelocytes # 0.2 H Promyelocytes # 0.4 H Nucleated Red Blood 0.0 Cells # Platelet Estimate NORMAL Polychromasia 2+ Poikilocytosis 1+ Anisocytosis 1+ Sodium Level 147 H Potassium Level 3.8 Chloride Level 113 H Carbon Dioxide Level 26 Anion Gap 8 Blood Urea Nitrogen 121 H Creatinine 1.83 H Est Glomerular Filtrat Rate mL/min Glucose Level 164 Calcium Level 8.9 Phosphorus Level 4.7 Magnesium Level 2.5 Total Bilirubin 0.2 Direct Bilirubin 0.00 Indirect Bilirubin 0.2 Aspartate Amino 26 Transf (AST/SGOT) Alanine 33 Aminotransferase (ALT/SG PT) Alkaline Phosphatase 85 Total Protein 5.3 L Albumin 2.4 L Globulin 2.90 Albumin/Globulin Ratio 0.82 Bedside Glucose 137 157 Medications Medication Current Medications Diltiazem HCl (Cardizem) 30 mg Q8 PO Last administered on 08/29/18 21:47; Admin Dose 30 MG; Start 08/29/18 at 22:00; Status Hold Vancomycin HCl (Vanco Iv Per Pharmacy) VANCOMYCIN PER PHARMACY PER PROTOCOL XX ; Start 08/30/18 at 12:00 Fentanyl 100 ml @ 2.5 mls/hr TITRATE IV Last administered on 09/07/18 02:50; Admin Dose 7.5 MLS/HR; Start 08/30/18 at 13:30 Atenolol (Tenormin) 12.5 mg BID NGT Last administered on 09/05/18 21:24; Admin Dose 12.5 MG; Start 08/30/18 at 21:00 Digoxin (Digoxin) 0.125 mg DAILY@13 NGT Last administered on 09/03/18 12:59; Admin Dose 0.125 MG; Start 08/30/18 at 13:00; Status Hold Ferrous Sulfate (Feosol Liquid Cup) 300 mg DAILY NGT Last administered on 09/07/18 09:34; Admin Dose 300 MG; Start 08/31/18 at 09:00 Lansoprazole (Prevacid) 30 mg DAILY@06 NGT Last administered on 09/07/18 05:34; Admin Dose 30 MG; Start 08/31/18 at 06:00 Docusate Sodium (Colace Liquid Cup) 100 mg BID PRN NGT CONSTIPATION Last administered on 08/30/18 23:46; Admin Dose 100 MG; Start 08/30/18 at 13:30 Apixaban (Eliquis) 2.5 mg BID NGT Last administered on 09/07/18at 09:34; Admin Dose 2.5 MG; Start 08/31/18 at 21:00 Midazolam HCl 50 ml @ 1 mls/hr TITRATE IV Last administered on 09/07/18at 08:38; Admin Dose 7 MLS/HR; Start 09/01/18 at 11:00 Meropenem/Sodium Chloride 50 ml @ 100 mls/hr Q12 IVPB Last administered on 09/07/18at 09:34; Admin Dose 100 MLS/HR; Start 09/01/18 at 21:00 Miscellaneous Information 1 ea NOTE XX ; Start 09/01/18 at 15:00 Glucose (Glutose) 15 gm Q15M PRN PO DECREASED GLUCOSE; Start 09/01/18 at 15:00 Glucose (Glutose) 22.5 gm Q15M PRN PO DECREASED GLUCOSE; Start 09/01/18 at 15:00 Dextrose (D50w Syringe) 25 ml Q15M PRN IV DECREASED GLUCOSE; Start 09/01/18 at 15:00 Dextrose (D50w Syringe) 50 ml Q15M PRN IV DECREASED GLUCOSE; Start 09/01/18 at 15:00 Glucagon (Glucagen) 1 mg Q15M PRN IM DECREASED GLUCOSE; Start 09/01/18 at 15:00 Glucose (Glutose) 15 gm Q15M PRN BUCCAL DECREASED GLUCOSE; Start 09/01/18 at 15:00 Insulin Aspart (Novolog Insulin Pen) NOVOLOG *MILD* ALGORI... Q4 SC Last administered on 09/07/18at 10:14; Admin Dose 1 UNIT; Start 09/02/18 at 01:00 Albuterol (Ventolin Hfa) 2 puff Q6H RESP THERAPY INH Last administered on 09/07/18 08:19; Admin Dose 2 PUFF; Start 09/03/18 at 14:00 Ipratropium [place] (Atrovent Hfa) 2 puff Q6HWA RESP THERAPY INH Last administered on 09/07/18at 08:19; Admin Dose 2 PUFF; Start 09/03/18 at 14:00 Ipratropium [place] (Atrovent Hfa) 2 puff Q6H RESP THERAPY PRN INH SHORTNESS OF BREATH; Start 09/03/18 at 09:30 Albuterol (Ventolin Hfa) 2 puff Q6H RESP THERAPY PRN INH SHORTNESS OF BREATH; Start 09/03/18 at 09:30 Prednisone (Prednisone) 30 mg DAILY PO Last administered on 09/07/18at 09:35; Admin Dose 30 MG; Start 09/05/18 at 09:00 Dextrose 1,000 ml @ 40 mls/hr Q24H IV Last administered on 09/07/18at 03:51; Admin Dose 40 MLS/HR; Start 09/05/18 at 11:00 IV Flush (NS 10 ml) 10 ml PRN PRN IV IV PROTOCOL; Start 09/05/18 at 17:00 Vancomycin HCl 100 ml @ 100 mls/hr Q36H IVPB Last administered on 09/07/18at 05:34; Admin Dose 100 MLS/HR; Start 09/07/18 at 06:00 Bisacodyl (Dulcolax Supp) 10 mg QHS [place] ; Start 09/07/18 at 11:30 LILY ARTHUR CUPOLA MAN Sep 07, 2018 11:39
[2018-09-07] MEDS: BISACODYL 10 MG SUPP PR SCH ×2 (14:22→21:00)
[2018-09-08] VITALS (56 sets, daily range): BP systolic 82–143; BP diastolic 34–112; PULSE 45–88; RESP 11–31
[2018-09-08] MEDS: INSULIN ASPART [NOVOLOG] 3 ML PEN SC SCH ×6 (01:18→21:22)
[2018-09-08] MEDS: ALBUTEROL HFA 8 GM INHALER INH SCH ×4 (03:24→20:33)
[2018-09-08] MEDS: DEXTROSE 5% 1,000 ML IV SCH (04:11)
[2018-09-08] MEDS: FENTAnyl (DRIP) 1000 mcg/100mL 100 ML IV SCH ×2 (04:13→16:28)
[2018-09-08] MEDS: LANSOPRAZOLE 30 MG CAP NGT SCH (05:27)
[2018-09-08] MEDS: MIDAZOLAM (DRIP) 50 mg/50 mL 50 ML IV SCH ×2 (05:27→20:18)
[2018-09-08] MEDS: IPRATROPIUM (HFA) 12.9 GM INHALER INH SCH ×3 (08:36→20:33)
--- NOTE | 2018-09-08 08:59 | CONS ---
Consult Date/Type/Reason Admit Date/Time Aug 29, 2018 at 18:56 Initial Consult Date Type of Consult Pulmonary Requesting Provider: KARLEY DEAN MD Date/Time of Note DATE: 09/08/18 TIME: 08:58 Subjective Patient continues mechanical ventilation failed CPAP trial yesterday. Was following simple commands on sedation vacation. Objective Vital Signs Date Temp Pulse Resp B/P (MAP) Pulse Ox O2 O2 Flow FiO2 Time Delivery Rate 09/08/18 97.9 57 17 100/40 100 Mechanical 08:00 (60) Ventilator 09/08/18 30 07:40 Intake and Output 09/07/18 09/07/18 09/08/18 1515:00 23:00 07:00 IntakeIntake Total 1382.5 ml 1772 ml 1179 ml OutputOutput Total 480 ml 435 ml 450 ml BalanceBalance 902.5 ml 1337 ml 729 ml Exam GENERAL: Elderly-appearing gentleman, now intubated on mechanical ventilation, appears comfortable at rest, no acute distress. NECK: Supple. No JVD or lymphadenopathy. CARDIAC: Sounds S1, S2, no added sounds or murmurs. CHEST: Diminished air entry bilaterally with occasional rhonchi ABDOMEN: Soft, nontender. No guarding or rebound. EXTREMITIES: No cyanosis or clubbing. 1+ edema Vent Setting Ventilator Support Mode: AC Fraction of Inspired Oxygen pe: 30 Positive End Expiratory Pressu: 5.0 Results/Medications Result Diagram: 09/08/18 0415 09/08/18 0415 Results 24 hrs Laboratory Tests Test 09/07/18 10:11 09/07/18 14:18 09/07/18 18:05 09/07/18 21:02 Bedside Glucose 157 155 205 225 H Test 09/08/18 01:13 09/08/18 04:15 09/08/18 05:26 Bedside Glucose 172 176 White Blood Count 24.6 H Red Blood Count 3.07 L Hemoglobin 8.4 L Hematocrit 26.1 L Mean Corpuscular Volume 85.0 Mean Corpuscular 27.4 L Hemoglobin Mean Corpuscular 32.2 Hemoglobin Concent Red Cell Distribution 17.0 H Width Platelet Count 328 Mean Platelet Volume 10.6 H Immature Granulocytes % 3.600 H Neutrophils % 85.0 H Lymphocytes % 4.6 L Monocytes % 6.6 Eosinophils % 0.1 Basophils % 0.1 Nucleated Red Blood 0.0 Cells % Immature Granulocytes # 0.890 H Neutrophils # 20.9 H Lymphocytes # 1.1 Monocytes # 1.6 H Eosinophils # 0.0 Basophils # 0.0 Nucleated Red Blood 0.0 Cells # Sodium Level 142 Potassium Level 4.1 Chloride Level 111 H Carbon Dioxide Level 26 Anion Gap 5 Blood Urea Nitrogen 115 H Creatinine 1.63 H Est Glomerular Filtrat Rate mL/min Glucose Level 151 Calcium Level 8.3 L Medications Current Medications Diltiazem HCl (Cardizem) 30 mg Q8 PO Last administered on 08/29/18 21:47; Admin Dose 30 MG; Start 08/29/18 at 22:00; Status Hold Vancomycin HCl (Vanco Iv Per Pharmacy) VANCOMYCIN PER PHARMACY PER PROTOCOL XX ; Start 08/30/18 at 12:00 Fentanyl 100 ml @ 2.5 mls/hr TITRATE IV Last administered on 09/08/18 04:13; Admin Dose 10 MLS/HR; Start 08/30/18 at 13:30 Atenolol (Tenormin) 12.5 mg BID NGT Last administered on 09/05/18 21:24; Admin Dose 12.5 MG; Start 08/30/18 at 21:00 Digoxin (Digoxin) 0.125 mg DAILY@13 NGT Last administered on 09/03/18 12:59; Admin Dose 0.125 MG; Start 08/30/18 at 13:00; Status Hold Ferrous Sulfate (Feosol Liquid Cup) 300 mg DAILY NGT Last administered on 09/07/18 09:34; Admin Dose 300 MG; Start 08/31/18 at 09:00 Lansoprazole (Prevacid) 30 mg DAILY@06 NGT Last administered on 09/08/18 05:27; Admin Dose 30 MG; Start 08/31/18 at 06:00 Docusate Sodium (Colace Liquid Cup) 100 mg BID PRN NGT CONSTIPATION Last administered on 08/30/18 23:46; Admin Dose 100 MG; Start 08/30/18 at 13:30 Apixaban (Eliquis) 2.5 mg BID NGT Last administered on 09/07/18 20:59; Admin Dose 2.5 MG; Start 08/31/18 at 21:00 Midazolam HCl 50 ml @ 1 mls/hr TITRATE IV Last administered on 09/08/18at 05:27; Admin Dose 7 MLS/HR; Start 09/01/18 at 11:00 Meropenem/Sodium Chloride 50 ml @ 100 mls/hr Q12 IVPB Last administered on 09/07/18at 20:59; Admin Dose 100 MLS/HR; Start 09/01/18 at 21:00 Miscellaneous Information 1 ea NOTE XX ; Start 09/01/18 at 15:00 Glucose (Glutose) 15 gm Q15M PRN PO DECREASED GLUCOSE; Start 09/01/18 at 15:00 Glucose (Glutose) 22.5 gm Q15M PRN PO DECREASED GLUCOSE; Start 09/01/18 at 15:00 Dextrose (D50w Syringe) 25 ml Q15M PRN IV DECREASED GLUCOSE; Start 09/01/18 at 15:00 Dextrose (D50w Syringe) 50 ml Q15M PRN IV DECREASED GLUCOSE; Start 09/01/18 at 15:00 Glucagon (Glucagen) 1 mg Q15M PRN IM DECREASED GLUCOSE; Start 09/01/18 at 15:00 Glucose (Glutose) 15 gm Q15M PRN BUCCAL DECREASED GLUCOSE; Start 09/01/18 at 15:00 Insulin Aspart (Novolog Insulin Pen) NOVOLOG *MILD* ALGORI... Q4 SC Last admi nistered on 09/08/18at 05:29; Admin Dose 1 UNIT; Start 09/02/18 at 01:00 Albuterol (Ventolin Hfa) 2 puff Q6H RESP THERAPY INH Last administered on 09/08/18 08:36; Admin Dose 2 PUFF; Start 09/03/18 at 14:00 Ipratropium [place] (Atrovent Hfa) 2 puff Q6HWA RESP THERAPY INH Last administered on 09/08/18 08:36; Admin Dose 2 PUFF; Start 09/03/18 at 14:00 Ipratropium [place] (Atrovent Hfa) 2 puff Q6H RESP THERAPY PRN INH SHORTNESS OF BREATH; Start 09/03/18 at 09:30 Albuterol (Ventolin Hfa) 2 puff Q6H RESP THERAPY PRN INH SHORTNESS OF BREATH; Start 09/03/18 at 09:30 Prednisone (Prednisone) 30 mg DAILY PO Last administered on 09/07/18at 09:35; Admin Dose 30 MG; Start 09/05/18 at 09:00 Dextrose 1,000 ml @ 40 mls/hr Q24H IV Last administered on 09/08/18at 04:11; Admin Dose 40 MLS/HR; Start 09/05/18 at 11:00 IV Flush (NS 10 ml) 10 ml PRN PRN IV IV PROTOCOL; Start 09/05/18 at 17:00 Vancomycin HCl 100 ml @ 100 mls/hr Q36H IVPB Last administered on 09/07/18at 05:34; Admin Dose 100 MLS/HR; Start 09/07/18 at 06:00 Bisacodyl (Dulcolax Supp) 10 mg QHS [place] Last administered on 09/07/18at 21:00; Admin Dose 10 MG; Start 09/07/18 at 11:30 Assessment/Plan Hospital Course (Demo Recall) IMPRESSION AND PLAN: 1. History of lung cancer and advanced COPD with recurrent hypoxemic re spiratory failure 2. Probable aspiration pneumonia. Bilateral infiltrates with left pleural effusion. 3. Chronic obstructive pulmonary disease exacerbation. 4. Septic shock and metabolic acidosis secondary to above. 5. Renal insufficiency. PLAN: 1. Continue vasopressors and IV fluids tube feeding as tolerated, 2. Blood cultures. 3. Broad-spectrum antibiotics. 4. DVT and GI prophylaxis. 5. Continue mechanical ventilation failed CPAP trial unlikely to be liberated from mechanical ventilation. 6. Steroids. 7. Decreased sedation as tolerated sedation vacation if possible. Critical care time 40 minutes. We will discuss with primary care team or other goals. AISHWAYRA PICKARD MD, [facility] Sep 08, 2018 08:59
[2018-09-08] MEDS: ATENOLOL 25 MG TAB NGT SCH ×2 (09:00→21:00)
[2018-09-08] MEDS: FERROUS SULFATE 60 MG/ML 5ML CUP NGT SCH (10:02)
[2018-09-08] MEDS: predniSONE 10 MG TAB PO SCH (10:03)
[2018-09-08] MEDS: MEROPENEM 500MG/50 ML (PMX) 50 ML IVPB SCH ×2 (10:03→21:20)
[2018-09-08] MEDS: APIXABAN 5 MG TABLET NGT SCH ×2 (10:03→21:21)
--- NOTE | 2018-09-08 10:27 | CONS ---
Consult Date/Type/Reason Admit Date/Time Aug 29, 2018 at 18:56 Initial Consult Date Type of Consultation: Pulm/CCM Requesting Provider: KARLEY DEAN MD Date/Time of Note DATE: 09/08/18 TIME: 10:25 Subjective NO acute events - pt not weaning now - no CP currently - pulmonary team follows - might need trach if con't care. Elizabeth at times - no pacer planned now. ROS: per nurse - no F/C/N/V/D/C Objective Vitals Vital Signs Date Temp Pulse Resp B/P (MAP) Pulse Ox O2 O2 Flow FiO2 Time Delivery Rate 09/08/18 62 18 100 30 09:45 09/08/18 97.9 100/40 Mechanical 08:00 (60) Ventilator Intake and Output 09/07/18 09/07/18 09/08/18 1515:00 23:00 07:00 IntakeIntake Total 1382.5 ml 1772 ml 1226 ml OutputOutput Total 480 ml 435 ml 450 ml BalanceBalance 902.5 ml 1337 ml 776 ml Exam General: WN/WD/NAD, AOx 0 HEENT: Unicetric/atraumatic/EOMI (does not follow commands) - intubated NECK: JVD elevated, no thyromegaly Lymph: no lymphadenopathy HEART: ir irregular with no S3, II/ systolic murmur at apex LUNGS: Coarse sounds ABD: soft, NT, ND, +BS : Intact Neuro: non focal SKIN: chronic changes EXT: trace edema Results/Medications Result Diagram: 09/08/18 0415 09/08/18 0415 Results 24 hrs Laboratory Tests Test 09/07/18 14:18 09/07/18 18:05 09/07/18 21:02 09/08/18 01:13 Bedside Glucose 155 205 225 H 172 Test 09/08/18 04:15 09/08/18 05:26 09/08/18 09:57 White Blood Count 24.6 H Red Blood Count 3.07 L Hemoglobin 8.4 L Hematocrit 26.1 L Mean Corpuscular Volume 85.0 Mean Corpuscular 27.4 L Hemoglobin Mean Corpuscular 32.2 Hemoglobin Concent Red Cell Distribution 17.0 H Width Platelet Count 328 Mean Platelet Volume 10.6 H Immature Granulocytes % 3.600 H Neutrophils % 85.0 H Lymphocytes % 4.6 L Monocytes % 6.6 Eosinophils % 0.1 Basophils % 0.1 Nucleated Red Blood 0.0 Cells % Immature Granulocytes # 0.890 H Neutrophils # 20.9 H Lymphocytes # 1.1 Monocytes # 1.6 H Eosinophils # 0.0 Basophils # 0.0 Nucleated Red Blood 0.0 Cells # Sodium Level 142 Potassium Level 4.1 Chloride Level 111 H Carbon Dioxide Level 26 Anion Gap 5 Blood Urea Nitrogen 115 H Creatinine 1.63 H Est Glomerular Filtrat Rate mL/min Glucose Level 151 Calcium Level 8.3 L Bedside Glucose 176 160 Home Meds Reported Medications Mupirocin Calcium* (Mupirocin*) 2% - 15 Gram Cream..g., 1 APPLIC TOP BID, #1 TUB 08/29/18 Ondansetron Hcl* (Zofran*) 4 Mg Tab, 4 MG PO Q6H PRN for NAUSEA AND OR VOMITING, TAB 08/29/18 Ipratropium-Albuterol (Ipratropium-Albuterol) 0.5-3 Mg/3 Ml Ampul.neb, 3 ML INHALATION Q6 PRN for WHEEZING AND SOB, #30 VIAL 08/29/18 Ferrous Sulfate* (Ferrous Sulfate*) 325 Mg Tabec, 325 MG PO DAILY, TAB 08/29/18 Apixaban* (Eliquis*) 5 Mg Tablet, 5 MG PO BID, TAB 08/29/18 Docusate Sodium* (Colace*) 100 Mg Capsule, 100 MG PO BID, #60 CAP 08/29/18 Bisacodyl* (Bisacodyl*) 5 Mg Tablet.dr, 10 MG PO BID PRN for CONSTIPATION, TAB 08/29/18 Tuberculin,Purif.prot.deriv. (Aplisol) 5 Tub Unit/0.1 Ml Vial, 5 TUB ID ONCE, VIAL START DATE 08/31/18 -- END DATE 09/01/18 08/29/18 Acetaminophen* (Acetaminophen*) 650 Mg Tablet, 650 MG PO Q6H PRN for PAIN LEVEL 1-10, #30 TAB AND FEVER>101F 08/29/18 Guaifenesin (Guaifenesin) 100 Mg/5 Ml Liquid, 10 ML PO NEEDED PRN for COUGH, ML 08/13/18 Diltiazem Hcl* (Cardizem*) 30 Mg Tablet, 30 MG PO Q8 for CHF, #90 TAB HOLD IF SBP<110 OR HR<60 08/13/18 Aspirin* (Aspirin* EC) 81 Mg Tablet.dr, 81 MG PO DAILY, TAB 08/13/18 Digoxin* (Digitek*) 125 Mcg Tablet, 0.125 MG PO DAILY, TAB HOLD IF SBP<110 OR HR<60 08/13/18 Atenolol* (Atenolol*) 25 Mg Tablet, 12.5 MG PO BID, #60 TAB HOLD IF SBP<110 OR HR<60 08/13/18 Furosemide* (Furosemide*) 40 Mg Tablet, 40 MG PO DAILY, TAB HOLD IF SBP<110 OR HR<60 08/13/18 Magnesium Hydroxide* (Milk Of Magnesia*) 400 Mg/5 Ml Oral.susp, 30 ML PO DAILY, ML 08/13/18 Potassium Chloride* (Klor-Con*) 20 Meq Tabsr, 20 MEQ PO DAILY, TAB.SA 07/11/18 Pantoprazole* (Pantoprazole*) 40 Mg Tablet.dr, 40 MG PO DAILY, TAB 07/11/18 Medications Current Medications Diltiazem HCl (Cardizem) 30 mg Q8 PO Last administered on 08/29/18at 21:47; Admin Dose 30 MG; Start 08/29/18 at 22:00; Status Hold Vancomycin HCl (Vanco Iv Per Pharmacy) VANCOMYCIN PER PHARMACY PER PROTOCOL XX ; Start 08/30/18 at 12:00 Fentanyl 100 ml @ 2.5 mls/hr TITRATE IV Last administered on 09/08/18at 04:13; Admin Dose 10 MLS/HR; Start 08/30/18 at 13:30 Atenolol (Tenormin) 12.5 mg BID NGT Last administered on 09/05/18at 21:24; Admin Dose 12.5 MG; Start 08/30/18 at 21:00 Digoxin (Digoxin) 0.125 mg DAILY@13 NGT Last administered on 09/03/18at 12:59; Admin Dose 0.125 MG; Start 08/30/18 at 13:00; Status Hold Ferrous Sulfate (Feosol Liquid Cup) 300 mg DAILY NGT Last administered on 09/08/18at 10:02; Admin Dose 300 MG; Start 08/31/18 at 09:00 Lansoprazole (Prevacid) 30 mg DAILY@06 NGT Last administered on 09/08/18 05:27; Admin Dose 30 MG; Start 08/31/18 at 06:00 Docusate Sodium (Colace Liquid Cup) 100 mg BID PRN NGT CONSTIPATION Last administered on 08/30/18 23:46; Admin Dose 100 MG; Start 08/30/18 at 13:30 Apixaban (Eliquis) 2.5 mg BID NGT Last administered on 09/08/18 10:03; Admin Dose 2.5 MG; Start 08/31/18 at 21:00 Midazolam HCl 50 ml @ 1 mls/hr TITRATE IV Last administered on 09/08/18 05:27; Admin Dose 7 MLS/HR; Start 09/01/18 at 11:00 Meropenem/Sodium Chloride 50 ml @ 100 mls/hr Q12 IVPB Last administered on 09/08/18 10:03; Admin Dose 100 MLS/HR; Start 09/01/18 at 21:00 Miscellaneous Information 1 ea NOTE XX ; Start 09/01/18 at 15:00 Glucose (Glutose) 15 gm Q15M PRN PO DECREASED GLUCOSE; Start 09/01/18 at 15:00 Glucose (Glutose) 22.5 gm Q15M PRN PO DECREASED GLUCOSE; Start 09/01/18 at 1 5:00 Dextrose (D50w Syringe) 25 ml Q15M PRN IV DECREASED GLUCOSE; Start 09/01/18 at 15:00 Dextrose (D50w Syringe) 50 ml Q15M PRN IV DECREASED GLUCOSE; Start 09/01/18 at 15:00 Glucagon (Glucagen) 1 mg Q15M PRN IM DECREASED GLUCOSE; Start 09/01/18 at 15:00 Glucose (Glutose) 15 gm Q15M PRN BUCCAL DECREASED GLUCOSE; Start 09/01/18 at 15:00 Insulin Aspart (Novolog Insulin Pen) NOVOLOG *MILD* ALGORI... Q4 SC Last administered on 09/08/18 09:59; Admin Dose 1 UNIT; Start 09/02/18 at 01:00 Albuterol (Ventolin Hfa) 2 puff Q6H RESP THERAPY INH Last administered on 09/08/18 08:36; Admin Dose 2 PUFF; Start 09/03/18 at 14:00 Ipratropium [place] (Atrovent Hfa) 2 puff Q6HWA RESP THERAPY INH Last admi nistered on 09/08/18at 08:36; Admin Dose 2 PUFF; Start 09/03/18 at 14:00 Ipratropium [place] (Atrovent Hfa) 2 puff Q6H RESP THERAPY PRN INH SHORTNESS OF BREATH; Start 09/03/18 at 09:30 Albuterol (Ventolin Hfa) 2 puff Q6H RESP THERAPY PRN INH SHORTNESS OF BREATH; Start 09/03/18 at 09:30 Prednisone (Prednisone) 30 mg DAILY PO Last administered on 09/08/18at 10:03; Admin Dose 30 MG; Start 09/05/18 at 09:00 Dextrose 1,000 ml @ 40 mls/hr Q24H IV Last administered on 09/08/18at 04:11; Admin Dose 40 MLS/HR; Start 09/05/18 at 11:00 IV Flush (NS 10 ml) 10 ml PRN PRN IV IV PROTOCOL; Start 09/05/18 at 17:00 Vancomycin HCl 100 ml @ 100 mls/hr Q36H IVPB Last administered on 09/07/18at 05:34; Admin Dose 100 MLS/HR; Start 09/07/18 at 06:00 Bisacodyl (Dulcolax Supp) 10 mg QHS [place] Last administered on 09/07/18at 21:00; Admin Dose 10 MG; Start 09/07/18 at 11:30 Assessment/Plan Hospital Course (Demo Recall) 1. Atrial fibrillation with a rapid ventricular response - rate controlled - will monitor to ICU. D/C dilt gtt now with low BP. Rate controlled off dilt gtt now. Rate controlled. Will monitor for now. Few episodes of elizabeth, but BP stable - will monitor clinically now. Rate better controlled. No pacer planned now. Hold BB if needed. 2. Congestive heart failure exacerbation, diastolic by most recent echo in July 2018 revealing a preserved EF of 65%, acute on chronic by history. Not in CHF by exam. Keep euvolemic. Euvolemic by exam- Cr high, but trending down. Better today. 3. Hypertension, mildly elevated - well Rx now. Supportive Rx now. BETTER now. Stable. Pt sedated. 4. Respiratory distress - transfer to ICU - con't pulm care per pulmonary team. Con't resp Rx. Might need trach. 5. Shortness of breath, likely multifactorial secondary to heart failure and chronic obstructive pulmonary disease exacerbation - now intubated, better overall. 6. Probable chronic obstructive pulmonary disease exacerbation - plus anti-Bx for PNA. Treated. 7. Pneumonia, right lower lobe by chest x-ray, new since discharge, question aspiration. Con;t anti-Bx On meds - high secretions. Overall improved. 8. Hyponatremia. 9. Severe leukocytosis - better now, on anti-Bx, ID follows. 10. Anemia, mild - decrease dose Eliquis Cr a little better at 1.96 but H/H down - if con't to go down, will hold anti-coagulation. EMILY SANTAMARIA MD Sep 08, 2018 10:27
--- NOTE | 2018-09-08 11:29 | CONS ---
Assessment/Plan Assessment/Plan Hospital Course (Demo Recall) ID PROGRESS NOTE CURRENT ABX: DAY #10 =>Vanco IV + Merrem 24H INTERVAL SUMMARY * INTBATED, SEDATED, REMAINS ON PRSSORS IN ICU * Afib now rate controlled -- -- leukocytosis on steroids taper * NEW PICC 09/05/18 * Indwelling: Endotracheal tube NG tube Bar catheter DIAGNOSTIC IMAGING * 09/06/18 CXR: Diffuse interstitial and patchy airspace opacities throughout the lungs are unchanged along with unchanged large left and moderate right pleural effusions. There is no pneumothorax. The cardiac silhouette is obscured. The aorta is tortuous and atherosclerotic. * 09/20 CXR:IMPRESSION: Cardiomegaly with calcified atherosclerosis in the aorta. Stable central pulmonary vascular congestion and mild interstitial prominence in both lungs. Stable patchy infiltrates throughout both lungs with moderate left pleural effusion and small to moderate right pleural effusion. * 08/31/18 CT of the chest revealed patchy bilateral pulmonary consolidation greater on the left concerning for multilobar pneumonia. Please see full report in the chart MICRO * 09/05/18 Left Upper Lobe: RESPIRATORY CULTURE Preliminary Organism 1 NORMAL RESPIRATORY ALLIE QUANTITY RARE * 08/30/18 Sputum Cx = NORMAL Allie * 08/30/18 BCx(+) CoNS 1/2 bottles * 08/29/18 BCx (-) PHYSICAL EXAMINATION: GENERAL: VSS, NAD HEENT: AT, NC, NECK: Supple, CHEST: Rise symmetrical HEART: Pulse RRR ABDOMEN: Benign EXTREMITIES: Warm, dry SKIN: No rash, no diaphoresis ID ASSESSMENT 78 yo M admit with: 1. Severe sepsis with shock 2. Acute hypoxemic respiratory failure possibly aspiration 3. Multilobar pneumonia per CT 4. COPD 5. History of lung cancer status post radiation, details unknown 6. Atrial fibrillation status post RVR -> now rate controlled 7. Bacteremia, cw contaminant (-)MRSA Nares ABX ALLERGIES: KNDA INVASIVES: PIV, PICC (09/05/18) ETT, NGT, FC CURRENT ABX: DAY # 10=> Vanco IV + Merrem ID RECOMMENDATIONS/PLAN: 1. Culture (-) multilobar PNA w/hx of Lung Cancer -- now with right sided chest tube * Will complete a full 14 day course of ABX then DC 2. Steroids taper, vent management per pulmonary . Consultation Date/Type/Reason Admit Date/Time Aug 29, 2018 at 18:56 Initial Consult Date Requesting Provider: KARLEY DEAN MD Date/Time of Note DATE: 09/08/18 TIME: 11:27 Exam/Review of Systems Exam Vitals Vital Signs Date Temp Pulse Resp B/P (MAP) Pulse Ox O2 O2 Flow FiO2 Time Delivery Rate 09/08/18 62 18 100 30 09:45 09/08/18 97.9 100/40 Mechanical 08:00 (60) Ventilator Intake and Output 09/07/18 09/07/18 09/08/18 1515:00 23:00 07:00 IntakeIntake Total 1382.5 ml 1772 ml 1226 ml OutputOutput Total 480 ml 435 ml 450 ml BalanceBalance 902.5 ml 1337 ml 776 ml Results Result Diagram: 09/08/18 0415 09/08/18 0415 Results 24hrs Laboratory Tests Test 09/07/18 14:18 09/07/18 18:05 09/07/18 21:02 09/08/18 01:13 Bedside Glucose 155 205 225 H 172 Test 09/08/18 04:15 09/08/18 05:26 09/08/18 09:57 White Blood Count 24.6 H Red Blood Count 3.07 L Hemoglobin 8.4 L Hematocrit 26.1 L Mean Corpuscular Volume 85.0 Mean Corpuscular 27.4 L Hemoglobin Mean Corpuscular 32.2 Hemoglobin Concent Red Cell Distribution 17.0 H Width Platelet Count 328 Mean Platelet Volume 10.6 H Immature Granulocytes % 3.600 H Neutrophils % 85.0 H Lymphocytes % 4.6 L Monocytes % 6.6 Eosinophils % 0.1 Basophils % 0.1 Nucleated Red Blood 0.0 Cells % Immature Granulocytes # 0.890 H Neutrophils # 20.9 H Lymphocytes # 1.1 Monocytes # 1.6 H Eosinophils # 0.0 Basophils # 0.0 Nucleated Red Blood 0.0 Cells # Sodium Level 142 Potassium Level 4.1 Chloride Level 111 H Carbon Dioxide Level 26 Anion Gap 5 Blood Urea Nitrogen 115 H Creatinine 1.63 H Est Glomerular Filtrat Rate mL/min Glucose Level 151 Calcium Level 8.3 L Bedside Glucose 176 160 Medications Medication Current Medications Diltiazem HCl (Cardizem) 30 mg Q8 PO Last administered on 08/29/18at 21:47; Admin Dose 30 MG; Start 08/29/18 at 22:00; Status Hold Vancomycin HCl (Vanco Iv Per Pharmacy) VANCOMYCIN PER PHARMACY PER PROTOCOL XX ; Start 08/30/18 at 12:00 Fentanyl 100 ml @ 2.5 mls/hr TITRATE IV Last administered on 09/08/18 04:13; Admin Dose 10 MLS/HR; Start 08/30/18 at 13:30 Atenolol (Tenormin) 12.5 mg BID NGT Last administered on 09/05/18 21:24; Admin Dose 12.5 MG; Start 08/30/18 at 21:00 Digoxin (Digoxin) 0.125 mg DAILY@13 NGT Last administered on 09/03/18 12:59; Admin Dose 0.125 MG; Start 08/30/18 at 13:00; Status Hold Ferrous Sulfate (Feosol Liquid Cup) 300 mg DAILY NGT Last administered on 09/08 10:02; Admin Dose 300 MG; Start 08/31/18 at 09:00 Lansoprazole (Prevacid) 30 mg DAILY@06 NGT Last administered on 09/08/18 05:27; Admin Dose 30 MG; Start 08/31/18 at 06:00 Docusate Sodium (Colace Liquid Cup) 100 mg BID PRN NGT CONSTIPATION Last administered on 08/30/18 23:46; Admin Dose 100 MG; Start 08/30/18 at 13:30 Apixaban (Eliquis) 2.5 mg BID NGT Last administered on 09/08/18 10:03; Admin Dose 2.5 MG; Start 08/31/18 at 21:00 Midazolam HCl 50 ml @ 1 mls/hr TITRATE IV Last administered on 09/08/18 05:27; Admin Dose 7 MLS/HR; Start 09/01/18 at 11:00 Meropenem/Sodium Chloride 50 ml @ 100 mls/hr Q12 IVPB Last administered on 09/08/18 10:03; Admin Dose 100 MLS/HR; Start 09/01/18 at 21:00 Miscellaneous Information 1 ea NOTE XX ; Start 09/01/18 at 15:00 Glucose (Glutose) 15 gm Q15M PRN PO DECREASED GLUCOSE; Start 09/01/18 at 15:00 Glucose (Glutose) 22.5 gm Q15M PRN PO DECREASED GLUCOSE; Start 09/01/18 at 15:00 Dextrose (D50w Syringe) 25 ml Q15M PRN IV DECREASED GLUCOSE; Start 09/01/18 at 15:00 Dextrose (D50w Syringe) 50 ml Q15M PRN IV DECREASED GLUCOSE; Start 09/01/18 at 15:00 Glucagon (Glucagen) 1 mg Q15M PRN IM DECREASED GLUCOSE; Start 09/01/18 at 15:00 Glucose (Glutose) 15 gm Q15M PRN BUCCAL DECREASED GLUCOSE; Start 09/01/18 at 15:00 Insulin Aspart (Novolog Insulin Pen) NOVOLOG *MILD* ALGORI... Q4 SC Last administered on 09/08/18at 09:59; Admin Dose 1 UNIT; Start 09/02/18 at 01:00 Albuterol (Ventolin Hfa) 2 puff Q6H RESP THERAPY INH Last administered on 09/08at 08:36; Admin Dose 2 PUFF; Start 09/03/18 at 14:00 Ipratropium [place] (Atrovent Hfa) 2 puff Q6HWA RESP THERAPY INH Last administered on 09/08/18at 08:36; Admin Dose 2 PUFF; Start 09/03/18 at 14:00 Ipratropium [place] (Atrovent Hfa) 2 puff Q6H RESP THERAPY PRN INH SHORTNESS OF BREATH; Start 09/03/18 at 09:30 Albuterol (Ventolin Hfa) 2 puff Q6H RESP THERAPY PRN INH SHORTNESS OF BREATH; Start 09/03/18 at 09:30 Prednisone (Prednisone) 30 mg DAILY PO Last administered on 09/08/18at 10:03; Admin Dose 30 MG; Start 09/05/18 at 09:00 IV Flush (NS 10 ml) 10 ml PRN PRN IV IV PROTOCOL; Start 09/05/18 at 17:00 Vancomycin HCl 100 ml @ 100 mls/hr Q36H IVPB Last administered on 09/07/18at 05:34; Admin Dose 100 MLS/HR; Start 09/07/18 at 06:00 Bisacodyl (Dulcolax Supp) 10 mg QHS [place] Last administered on 09/07/18at 21:00; Admin Dose 10 MG; Start 09/07/18 at 11:30 LILY ARTHUR NP Sep 08, 2018 11:29
--- NOTE | 2018-09-08 13:23 | PN ---
Date/Time of Note Date/Time of Note DATE: 09/08/18 TIME: 13:17 Assessment/Plan VTE Prophylaxis Risk score (from Ns)>0 risk: 12 SCD applied (from Ns): Yes Pharmacological prophylaxis: apixaban Lines/Catheters IV Catheter Type (from Nrs): PICC Line Central line still needed: Yes Urinary Cath still in place: Yes Reason Cath still needed: urinary retention Assessment/Plan Hospital Course 1 Septic shock likely due to sepsis /pneumonia . Off pressors 2. ALOC, lethargic. Now sedated follows commands off sedation 3. Atrial fibrillation, now flutter, controlled 4. Hypoxic respiratory failure. Respiratory acidosis, resolved. 5. Bilateral pneumonia 6. Congestive heart failure, EF 35 to 40%, 7. Hx of right side lung cancer 8. JAMES on chronic kidney disease, creatinine baseline 1.6. With elevated BUN and creatinine ratio likely ATN secondary to septic shock now Cr downtrending however BUN still high, Good UOP 9. Hx of pleural effusions, right and left and numerous thoracentesis. Now left pleural effusion on chest xray 10. Bilateral pleural effusion 11. Hx of hypertension, now on BP support 12. Hyperlipidemia 13 + bacteremia however new bld cx neg 14 Hypernatremia likely hypovolemic , resolved 15. Anemia Assessment/Plan - stop D5W, c/w water flash NG tube -cr. decreased -skin care -c/w ICU care -Monitor lytes/urine output -cw pred 30 -pulmonary consult dr Guajardo appreciated -orally intubated 30 % -Cardiology consult dr Hall -With vancomycin/meropenem, -DVT proph. Eliquiz 2.5 mg GT BID -GI proph. Protonix GT -c/w tube feed 40 ml Result Diagram: 09/08/18 0415 09/08/18 0415 Results 24hrs Laboratory Tests Test 09/07/18 14:18 09/07/18 18:05 09/07/18 21:02 09/08/18 01:13 Bedside Glucose 155 205 225 H 172 Test 09/08/18 04:15 09/08/18 05:26 09/08/18 09:57 White Blood Count 24.6 H Red Blood Count 3.07 L Hemoglobin 8.4 L Hematocrit 26.1 L Mean Corpuscular Volume 85.0 Mean Corpuscular 27.4 L Hemoglobin Mean Corpuscular 32.2 Hemoglobin Concent Red Cell Distribution 17.0 H Width Platelet Count 328 Mean Platelet Volume 10.6 H Immature Granulocytes % 3.600 H Neutrophils % 85.0 H Lymphocytes % 4.6 L Monocytes % 6.6 Eosinophils % 0.1 Basophils % 0.1 Nucleated Red Blood 0.0 Cells % Immature Granulocytes # 0.890 H Neutrophils # 20.9 H Lymphocytes # 1.1 Monocytes # 1.6 H Eosinophils # 0.0 Basophils # 0.0 Nucleated Red Blood 0.0 Cells # Sodium Level 142 Potassium Level 4.1 Chloride Level 111 H Carbon Dioxide Level 26 Anion Gap 5 Blood Urea Nitrogen 115 H Creatinine 1.63 H Est Glomerular Filtrat Rate mL/min Glucose Level 151 Calcium Level 8.3 L Bedside Glucose 176 160 Subjective 24 Hr Interval Summary Subjective hx not possible: pt non-verbal, pt critical status Exam/Review of Systems Exam Vitals Vital Signs Date Temp Pulse Resp B/P (MAP) Pulse Ox O2 O2 Flow FiO2 Time Delivery Rate 09/08/18 60 18 100 30 11:55 09/08/18 97.9 100/40 Mechanical 08:00 (60) Ventilator Intake and Output 09/07/18 09/07/18 09/08/18 1515:00 23:00 07:00 IntakeIntake Total 1382.5 ml 1772 ml 1226 ml OutputOutput Total 480 ml 435 ml 450 ml BalanceBalance 902.5 ml 1337 ml 776 ml Exam NG tube with feeding Constitutional: non-verbal Neck: supple Respiratory: diminished breath sounds Cardiovascular: regular rate and rhythm, other (elizabeth) Gastrointestinal: soft, other (yañez) Musculoskeletal: muscle weakness 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: other (sedated with fentanyl) Results Results 24hrs Laboratory Tests Test 09/07/18 14:18 09/07/18 18:05 09/07/18 21:02 09/08/18 01:13 Bedside Glucose 155 205 225 H 172 Test 09/08/18 04:15 09/08/18 05:26 09/08/18 09:57 White Blood Count 24.6 H Red Blood Count 3.07 L Hemoglobin 8.4 L Hematocrit 26.1 L Mean Corpuscular Volume 85.0 Mean Corpuscular 27.4 L Hemoglobin Mean Corpuscular 32.2 Hemoglobin Concent Red Cell Distribution 17.0 H Width Platelet Count 328 Mean Platelet Volume 10.6 H Immature Granulocytes % 3.600 H Neutrophils % 85.0 H Lymphocytes % 4.6 L Monocytes % 6.6 Eosinophils % 0.1 Basophils % 0.1 Nucleated Red Blood 0.0 Cells % Immature Granulocytes # 0.890 H Neutrophils # 20.9 H Lymphocytes # 1.1 Monocytes # 1.6 H Eosinophils # 0.0 Basophils # 0.0 Nucleated Red Blood 0.0 Cells # Sodium Level 142 Potassium Level 4.1 Chloride Level 111 H Carbon Dioxide Level 26 Anion Gap 5 Blood Urea Nitrogen 115 H Creatinine 1.63 H Est Glomerular Filtrat Rate mL/min Glucose Level 151 Calcium Level 8.3 L Bedside Glucose 176 160 Medications Medication Current Medications Diltiazem HCl (Cardizem) 30 mg Q8 PO Last administered on 08/29/18 21:47; Admin Dose 30 MG; Start 08/29/18 at 22:00; Status Hold Vancomycin HCl (Vanco Iv Per Pharmacy) VANCOMYCIN PER PHARMACY PER PROTOCOL XX ; Start 08/30/18 at 12:00 Fentanyl 100 ml @ 2.5 mls/hr TITRATE IV Last administered on 09/08/18 04:13; Admin Dose 10 MLS/HR; Start 08/30/18 at 13:30 Atenolol (Tenormin) 12.5 mg BID NGT Last administered on 09/05/18 21:24; Admin Dose 12.5 MG; Start 08/30/18 at 21:00 Digoxin (Digoxin) 0.125 mg DAILY@13 NGT Last administered on 09/03/18 12:59; Admin Dose 0.125 MG; Start 08/30/18 at 13:00; Status Hold Ferrous Sulfate (Feosol Liquid Cup) 300 mg DAILY NGT Last administered on 09/08/18 10:02; Admin Dose 300 MG; Start 08/31/18 at 09:00 Lansoprazole (Prevacid) 30 mg DAILY@06 NGT Last administered on 09/08/18 05:27; Admin Dose 30 MG; Start 08/31/18 at 06:00 Docusate Sodium (Colace Liquid Cup) 100 mg BID PRN NGT CONSTIPATION Last administered on 08/30/18 23:46; Admin Dose 100 MG; Start 08/30/18 at 13:30 Apixaban (Eliquis) 2.5 mg BID NGT Last administered on 09/08/18 10:03; Admin Dose 2.5 MG; Start 08/31/18 at 21:00 Midazolam HCl 50 ml @ 1 mls/hr TITRATE IV Last administered on 09/08/18 05:27; Admin Dose 7 MLS/HR; Start 09/01/18 at 11:00 Meropenem/Sodium Chloride 50 ml @ 100 mls/hr Q12 IVPB Last administered on 09/08 10:03; Admin Dose 100 MLS/HR; Start 09/01/18 at 21:00 Miscellaneous Information 1 ea NOTE XX ; Start 09/01/18 at 15:00 Glucose (Glutose) 15 gm Q15M PRN PO DECREASED GLUCOSE; Start 09/01/18 at 15:00 Glucose (Glutose) 22.5 gm Q15M PRN PO DECREASED GLUCOSE; Start 09/01/18 at 15:00 Dextrose (D50w Syringe) 25 ml Q15M PRN IV DECREASED GLUCOSE; Start 09/01/18 at 15:00 Dextrose (D50w Syringe) 50 ml Q15M PRN IV DECREASED GLUCOSE; Start 09/01/18 at 15:00 Glucagon (Glucagen) 1 mg Q15M PRN IM DECREASED GLUCOSE; Start 09/01/18 at 15:00 Glucose (Glutose) 15 gm Q15M PRN BUCCAL DECREASED GLUCOSE; Start 09/01/18 at 15:00 Insulin Aspart (Novolog Insulin Pen) NOVOLOG *MILD* ALGORI... Q4 SC Last ad ministered on 09/08/18at 09:59; Admin Dose 1 UNIT; Start 09/02/18 at 01:00 Albuterol (Ventolin Hfa) 2 puff Q6H RESP THERAPY INH Last administered on 09/08/18 08:36; Admin Dose 2 PUFF; Start 09/03/18 at 14:00 Ipratropium [place] (Atrovent Hfa) 2 puff Q6HWA RESP THERAPY INH Last administered on 09/08/18 08:36; Admin Dose 2 PUFF; Start 09/03/18 at 14:00 Ipratropium [place] (Atrovent Hfa) 2 puff Q6H RESP THERAPY PRN INH SHORTNESS OF BREATH; Start 09/03/18 at 09:30 Albuterol (Ventolin Hfa) 2 puff Q6H RESP THERAPY PRN INH SHORTNESS OF BREATH; Start 09/03/18 at 09:30 Prednisone (Prednisone) 30 mg DAILY PO Last administered on 09/08/18at 10:03; Admin Dose 30 MG; Start 09/05/18 at 09:00 IV Flush (NS 10 ml) 10 ml PRN PRN IV IV PROTOCOL; Start 09/05/18 at 17:00 Vancomycin HCl 100 ml @ 100 mls/hr Q36H IVPB Last administered on 09/07/18at 05:34; Admin Dose 100 MLS/HR; Start 09/07/18 at 06:00 Bisacodyl (Dulcolax Supp) 10 mg QHS [place] Last administered on 09/07/18at 21:00; Admin Dose 10 MG; Start 09/07/18 at 11:30 JASPER SAHU Sep 08, 2018 13:23
[2018-09-08] MEDS: VANCOMYCIN 500 MG (PMX) 100 ML IVPB SCH (18:35)
[2018-09-08] MEDS: BISACODYL 10 MG SUPP PR SCH (21:20)
[2018-09-09] VITALS (59 sets, daily range): BP systolic 94–136; BP diastolic 37–95; PULSE 50–78; RESP 12–35
[2018-09-09] MEDS: INSULIN ASPART [NOVOLOG] 3 ML PEN SC SCH ×6 (01:01→20:54)
[2018-09-09] MEDS: ALBUTEROL HFA 8 GM INHALER INH SCH ×4 (01:18→19:59)
[2018-09-09] MEDS: FENTAnyl (DRIP) 1000 mcg/100mL 100 ML IV SCH ×2 (02:14→13:07)
[2018-09-09] MEDS: MIDAZOLAM (DRIP) 50 mg/50 mL 50 ML IV SCH ×3 (05:24→23:31)
[2018-09-09] MEDS: LANSOPRAZOLE 30 MG CAP NGT SCH (05:24)
[2018-09-09] MEDS: IPRATROPIUM (HFA) 12.9 GM INHALER INH SCH ×3 (08:02→19:59)
[2018-09-09] MEDS: ATENOLOL 25 MG TAB NGT SCH ×2 (08:41→20:53)
[2018-09-09] MEDS: FERROUS SULFATE 60 MG/ML 5ML CUP NGT SCH (08:47)
[2018-09-09] MEDS: predniSONE 10 MG TAB PO SCH (08:47)
[2018-09-09] MEDS: MEROPENEM 500MG/50 ML (PMX) 50 ML IVPB SCH ×2 (08:47→20:54)
[2018-09-09] MEDS: APIXABAN 5 MG TABLET NGT SCH (08:47)
--- NOTE | 2018-09-09 09:53 | CONS ---
Assessment/Plan Assessment/Plan Assessment/Plan (Daily) Chest x-ray showing left pleural effusion with left lower lobe infiltrative changes. Ventilator setting; assist control of 18, tidal volume 550, PEEP of 5, 30% FiO2. Patient is off sedation for the last 20 minutes. Was on fentanyl and Versed. Assessment recommendations; 1. Patient admitted with respiratory failure likely due to bilateral pneumonia with history of lung cancer. Chest x-ray showing large left pleural effusion. 2. Persistent leukocytosis indicative of ongoing pneumonia. 3. Anemia. 4. Chronic renal insufficiency. 5. Gram-positive bacteremia with coagulase-negative staph aureus. Possibly contaminant. 6. Chronic atrial fibrillation. Rate is well controlled. 7. Failure to be weaned from ventilator. 8. History of hypertension. Obtain left-sided ultrasound-guided thoracentesis. Continue other supportive measures. Continue to hold sedation as tolerated. I did have a detailed discussion with the patient's sister at bedside and answered all her questions. I would recommend waiting at least 24 to 48 hours for sedated to wear off before deciding about tracheostomy. 35 minutes of critical care time was spent evaluating the patient. Consultation Date/Type/Reason Admit Date/Time Aug 29, 2018 at 18:56 Initial Consult Date Type of Consult Pulmonary/critical care Patient condition is critical. Still intubated. Patient failed a CPAP trial yesterday. Patient however has remained hemodynamically stable. General exam; elderly male, orally intubated, sedated, currently in no distress. Reason for Consultation HEENT exam; supple neck, no JVD. No lymphadenopathy. Midline trachea. No thyromegaly. Orally intubated. Patient has fair dentition. No neck masses. Pupils are small bilaterally. Orogastric tube in place. Chest exam; diminished breath sounds bilaterally. S1-S2 audible, no murmurs. Irregular rhythm. Abdomen exam; soft, nondistended. No organomegaly. Bowel sounds are audible. Extremity exam; trace edema. 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 Requesting Provider: KARLEY EDAN MD Date/Time of Note DATE: 09/09/18 TIME: 09:48 Exam/Review of Systems Exam Vitals Vital Signs Date Temp Pulse Resp B/P (MAP) Pulse Ox O2 O2 Flow FiO2 Time Delivery Rate 09/09/18 59 18 97 30 09:35 09/09/18 124/57 Mechanical 09:00 (79) Ventilator 09/09/18 97.9 08:00 Intake and Output 09/08/18 09/08/18 09/09/18 1515:00 23:00 07:00 IntakeIntake Total 989 ml 1262 ml 956 ml OutputOutput Total 585 ml 600 ml 650 ml BalanceBalance 404 ml 662 ml 306 ml Results Result Diagram: 09/09/18 0430 09/09/18 0430 Results 24hrs Laboratory Tests Test 09/08/18 09:57 09/08/18 13:39 09/08/18 18:26 09/08/18 21:20 Bedside Glucose 160 149 158 176 Test 09/09/18 00:58 09/09/18 04:30 09/09/18 05:24 09/09/18 05:45 Bedside Glucose 160 144 White Blood Count 20.8 H Red Blood Count 2.89 L Hemoglobin 8.0 L Hematocrit 24.9 L Mean Corpuscular 86.2 Volume Mean Corpuscular 27.7 L Hemoglobin Mean Corpuscular 32.1 Hemoglobin Concent Red Cell Distribution 16.7 H Width Platelet Count 309 Mean Platelet Volume 10.9 H Immature Granulocytes 3.300 H % Neutrophils % 84.7 H Lymphocytes % 4.9 L Monocytes % 6.8 Eosinophils % 0.1 Basophils % 0.2 Nucleated Red Blood 0.0 Cells % Immature Granulocytes 0.680 H # Neutrophils # 17.6 H Lymphocytes # 1.0 Monocytes # 1.4 H Eosinophils # 0.0 Basophils # 0.0 Nucleated Red Blood 0.0 Cells # Sodium Level 141 Potassium Level 4.1 Chloride Level 111 H Carbon Dioxide Level 25 Anion Gap 5 Blood Urea Nitrogen 111 H Creatinine 1.59 H Est Glomerular Filtrat Rate mL/min Glucose Level 141 Calcium Level 8.2 L Lab Scanned Report REFERENCE LAB Test 09/09/18 09:21 Bedside Glucose 138 Medications Medication Current Medications Diltiazem HCl (Cardizem) 30 mg Q8 PO Last administered on 08/29/18at 21:47; Admin Dose 30 MG; Start 08/29/18 at 22:00; Status Hold Vancomycin HCl (Vanco Iv Per Pharmacy) VANCOMYCIN PER PHARMACY PER PROTOCOL XX ; Start 08/30/18 at 12:00 Fentanyl 100 ml @ 2.5 mls/hr TITRATE IV Last administered on 09/09/18at 02:14; Admin Dose 10 MLS/HR; Start 08/30/18 at 13:30 Atenolol (Tenormin) 12.5 mg BID NGT Last administered on 09/05/18 21:24; Admin Dose 12.5 MG; Start 08/30/18 at 21:00 Digoxin (Digoxin) 0.125 mg DAILY@13 NGT Last administered on 09/03/18 12:59; Admin Dose 0.125 MG; Start 08/30/18 at 13:00; Status Hold Ferrous Sulfate (Feosol Liquid Cup) 300 mg DAILY NGT Last administered on 09/09/18 08:47; Admin Dose 300 MG; Start 08/31/18 at 09:00 Lansoprazole (Prevacid) 30 mg DAILY@06 NGT Last administered on 09/09/18 05:24; Admin Dose 30 MG; Start 08/31/18 at 06:00 Docusate Sodium (Colace Liquid Cup) 100 mg BID PRN NGT CONSTIPATION Last administered on 08/30/18 23:46; Admin Dose 100 MG; Start 08/30/18 at 13:30 Apixaban (Eliquis) 2.5 mg BID NGT Last administered on 09/09/18 08:47; Admin Dose 2.5 MG; Start 08/31/18 at 21:00 Midazolam HCl 50 ml @ 1 mls/hr TITRATE IV Last administered on 09/09/18 05:24; Admin Dose 7 MLS/HR; Start 09/01/18 at 11:00 Meropenem/Sodium Chloride 50 ml @ 100 mls/hr Q12 IVPB Last administered on 09/09/18 08:47; Admin Dose 100 MLS/HR; Start 09/01/18 at 21:00 Miscellaneous Information 1 ea NOTE XX ; Start 09/01/18 at 15:00 Glucose (Glutose) 15 gm Q15M PRN PO DECREASED GLUCOSE; Start 09/01/18 at 15:00 Glucose (Glutose) 22.5 gm Q15M PRN PO DECREASED GLUCOSE; Start 09/01/18 at 15:00 Dextrose (D50w Syringe) 25 ml Q15M PRN IV DECREASED GLUCOSE; Start 09/01/18 at 15:00 Dextrose (D50w Syringe) 50 ml Q15M PRN IV DECREASED GLUCOSE; Start 09/01/18 at 15:00 Glucagon (Glucagen) 1 mg Q15M PRN IM DECREASED GLUCOSE; Start 09/01/18 at 15:00 Glucose (Glutose) 15 gm Q15M PRN BUCCAL DECREASED GLUCOSE; Start 09/01/18 at 15:00 Insulin Aspart (Novolog Insulin Pen) NOVOLOG *MILD* ALGORI... Q4 SC Last administered on 09/09/18 05:33; Admin Dose 1 UNIT; Start 09/02/18 at 01:00 Albuterol (Ventolin Hfa) 2 puff Q6H RESP THERAPY INH Last administered on 09/09/18 08:02; Admin Dose 2 PUFF; Start 09/03/18 at 14:00 Ipratropium [place] (Atrovent Hfa) 2 puff Q6HWA RESP THERAPY INH Last ad ministered on 09/09/18 08:02; Admin Dose 2 PUFF; Start 09/03/18 at 14:00 Ipratropium [place] (Atrovent Hfa) 2 puff Q6H RESP THERAPY PRN INH SHORTNESS OF BREATH; Start 09/03/18 at 09:30 Albuterol (Ventolin Hfa) 2 puff Q6H RESP THERAPY PRN INH SHORTNESS OF BREATH; Start 09/03/18 at 09:30 Prednisone (Prednisone) 30 mg DAILY PO Last administered on 09/09/18 08:47; Admin Dose 30 MG; Start 09/05/18 at 09:00 IV Flush (NS 10 ml) 10 ml PRN PRN IV IV PROTOCOL; Start 09/05/18 at 17:00 Vancomycin HCl 100 ml @ 100 mls/hr Q36H IVPB Last administered on 09/08/18 18:35; Admin Dose 100 MLS/HR; Start 09/07/18 at 06:00 Bisacodyl (Dulcolax Supp) 10 mg QHS [place] Last administered on 09/08/18 21:20; Admin Dose 10 MG; Start 09/07/18 at 11:30 ALAN DICKERSON Sep 09, 2018 09:53
--- NOTE | 2018-09-09 10:52 | CONS ---
Assessment/Plan Assessment/Plan Hospital Course (Demo Recall) IMPRESSION: 1. Atrial fibrillation with a rapid ventricular response.-now improved HR control 2. Congestive heart failure exacerbation, diastolic by most recent echo in July 2018 revealing a preserved EF of 65%, acute on chronic by history. 3. Hypertension-well controlled 4. Respiratory distress. 5. Shortness of breath, likely multifactorial secondary to heart failure and chronic obstructive pulmonary disease exacerbation. 6. Probable chronic obstructive pulmonary disease exacerbation. 7. Pneumonia, right lower lobe by chest x-ray, new since discharge, question aspiration. 8. Hyponatremia. 9. Severe leukocytosis of 29.4. 10. Anemia, mild. 11. Coagulopathy, likely secondary to baseline Eliquis. 12. ARF REcc: -ICU -Continue current atenolol as tolerated only -holding digoxin and following levels and HR closely -Continue eliquis -Continue abx's and f/u cx data -Continue steroids/bronchodilators -Follow volume status closely and consider gentle lasix diuresis Consultation Date/Type/Reason Admit Date/Time Aug 29, 2018 at 18:56 Initial Consult Date 08/29/18 Type of Consult Cardiology Reason for Consultation AF Requesting Provider: KARLEY DEAN MD Date/Time of Note DATE: 09/09/18 TIME: 10:46 Exam/Review of Systems Vital Signs Vitals Vital Signs Date Temp Pulse Resp B/P (MAP) Pulse Ox O2 O2 Flow FiO2 Time Delivery Rate 09/09/18 59 18 97 30 09:35 09/09/18 124/57 Mechanical 09:00 (79) Ventilator 09/09/18 97.9 08:00 Intake and Output 09/08/18 09/08/18 09/09/18 1515:00 23:00 07:00 IntakeIntake Total 989 ml 1262 ml 956 ml OutputOutput Total 585 ml 600 ml 650 ml BalanceBalance 404 ml 662 ml 306 ml Exam Exam Review of Systems: CONSTITUTIONAL: No fevers, chills. PULMONARY: No sob CARDIOVASCULAR: No chest pain/palpitations GASTROINTESTINAL: No nausea/vomiting. GENITOURINARY: No hematuria/dysuria. MUSCULOSKELETAL: No myagias/arthalgias. PSYCHIATRIC: The patient denies depression. NEUROLOGIC: No weakness Constitutional: other (sedated) Psych: no complaints Head: normocephalic ENMT: mucosa pink and moist Neck: supple, jvd (9 cm water) Respiratory: diminished breath sounds (at bases/B) Cardiovascular: regular rate and rhythm Gastrointestinal: soft, non-tender Musculoskeletal: muscle tone (normal) Extremities: edema (none) 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: other (sedated) Labs Result Diagram: 09/09/18 0430 09/09/18 0430 Results 24hrs Laboratory Tests Test 09/08/18 13:39 09/08/18 18:26 09/08/18 21:20 09/09/18 00:58 Bedside Glucose 149 158 176 160 Test 09/09/18 04:30 09/09/18 05:24 09/09/18 05:45 09/09/18 09:21 White Blood Count 20.8 H Red Blood Count 2.89 L Hemoglobin 8.0 L Hematocrit 24.9 L Mean Corpuscular 86.2 Volume Mean Corpuscular 27.7 L Hemoglobin Mean Corpuscular 32.1 Hemoglobin Concent Red Cell Distribution 16.7 H Width Platelet Count 309 Mean Platelet Volume 10.9 H Immature Granulocytes 3.300 H % Neutrophils % 84.7 H Lymphocytes % 4.9 L Monocytes % 6.8 Eosinophils % 0.1 Basophils % 0.2 Nucleated Red Blood 0.0 Cells % Immature Granulocytes 0.680 H # Neutrophils # 17.6 H Lymphocytes # 1.0 Monocytes # 1.4 H Eosinophils # 0.0 Basophils # 0.0 Nucleated Red Blood 0.0 Cells # Sodium Level 141 Potassium Level 4.1 Chloride Level 111 H Carbon Dioxide Level 25 Anion Gap 5 Blood Urea Nitrogen 111 H Creatinine 1.59 H Est Glomerular Filtrat Rate mL/min Glucose Level 141 Calcium Level 8.2 L Bedside Glucose 144 138 Lab Scanned Report REFERENCE LAB Medications Medications Current Medications Diltiazem HCl (Cardizem) 30 mg Q8 PO Last administered on 08/29/18at 21:47; Admin Dose 30 MG; Start 08/29/18 at 22:00; Status Hold Vancomycin HCl (Vanco Iv Per Pharmacy) VANCOMYCIN PER PHARMACY PER PROTOCOL XX ; Start 08/30/18 at 12:00 Fentanyl 100 ml @ 2.5 mls/hr TITRATE IV Last administered on 09/09/18at 02:14; Admin Dose 10 MLS/HR; Start 08/30/18 at 13:30 Atenolol (Tenormin) 12.5 mg BID NGT Last administered on 09/05/18 21:24; Admin Dose 12.5 MG; Start 08/30/18 at 21:00 Digoxin (Digoxin) 0.125 mg DAILY@13 NGT Last administered on 09/03/18 12:59; Admin Dose 0.125 MG; Start 08/30/18 at 13:00; Status Hold Ferrous Sulfate (Feosol Liquid Cup) 300 mg DAILY NGT Last administered on 09/09/18 08:47; Admin Dose 300 MG; Start 08/31/18 at 09:00 Lansoprazole (Prevacid) 30 mg DAILY@06 NGT Last administered on 09/09/18 05:24; Admin Dose 30 MG; Start 08/31/18 at 06:00 Docusate Sodium (Colace Liquid Cup) 100 mg BID PRN NGT CONSTIPATION Last administered on 08/30/18 23:46; Admin Dose 100 MG; Start 08/30/18 at 13:30 Apixaban (Eliquis) 2.5 mg BID NGT Last administered on 09/09/18 08:47; Admin Dose 2.5 MG; Start 08/31/18 at 21:00 Midazolam HCl 50 ml @ 1 mls/hr TITRATE IV Last administered on 09/09/18 05:24; Admin Dose 7 MLS/HR; Start 09/01/18 at 11:00 Meropenem/Sodium Chloride 50 ml @ 100 mls/hr Q12 IVPB Last administered on 09/09/18 08:47; Admin Dose 100 MLS/HR; Start 09/01/18 at 21:00 Miscellaneous Information 1 ea NOTE XX ; Start 09/01/18 at 15:00 Glucose (Glutose) 15 gm Q15M PRN PO DECREASED GLUCOSE; Start 09/01/18 at 15:00 Glucose (Glutose) 22.5 gm Q15M PRN PO DECREASED GLUCOSE; Start 09/01/18 at 15:00 Dextrose (D50w Syringe) 25 ml Q15M PRN IV DECREASED GLUCOSE; Start 09/01/18 at 15:00 Dextrose (D50w Syringe) 50 ml Q15M PRN IV DECREASED GLUCOSE; Start 09/01/18 at 15:00 Glucagon (Glucagen) 1 mg Q15M PRN IM DECREASED GLUCOSE; Start 09/01/18 at 15:00 Glucose (Glutose) 15 gm Q15M PRN BUCCAL DECREASED GLUCOSE; Start 09/01/18 at 15:00 Insulin Aspart (Novolog Insulin Pen) NOVOLOG *MILD* ALGORI... Q4 SC Last administered on 09/09/18 05:33; Admin Dose 1 UNIT; Start 09/02/18 at 01:00 Albuterol (Ventolin Hfa) 2 puff Q6H RESP THERAPY INH Last administered on 09/09/18 08:02; Admin Dose 2 PUFF; Start 09/03/18 at 14:00 Ipratropium [place] (Atrovent Hfa) 2 puff Q6HWA RESP THERAPY INH Last administered on 09/09/18 08:02; Admin Dose 2 PUFF; Start 09/03/18 at 14:00 Ipratropium [place] (Atrovent Hfa) 2 puff Q6H RESP THERAPY PRN INH SHORTNESS OF BREATH; Start 09/03/18 at 09:30 Albuterol (Ventolin Hfa) 2 puff Q6H RESP THERAPY PRN INH SHORTNESS OF BREATH; Start 09/03/18 at 09:30 Prednisone (Prednisone) 30 mg DAILY PO Last administered on 09/09/18 08:47; Admin Dose 30 MG; Start 09/05/18 at 09:00 IV Flush (NS 10 ml) 10 ml PRN PRN IV IV PROTOCOL; Start 09/05/18 at 17:00 Vancomycin HCl 100 ml @ 100 mls/hr Q36H IVPB Last administered on 09/08/18 18:35; Admin Dose 100 MLS/HR; Start 09/07/18 at 06:00 Bisacodyl (Dulcolax Supp) 10 mg QHS [place] Last administered on 09/08/18 21:20; Admin Dose 10 MG; Start 09/07/18 at 11:30 CECE LOPEZ Sep 09, 2018 10:52
--- NOTE | 2018-09-09 12:16 | CONS ---
Assessment/Plan Assessment/Plan Hospital Course (Demo Recall) ID PROGRESS NOTE CURRENT ABX: DAY #11 =>Vanco IV + Merrem 24H INTERVAL SUMMARY * INTUBATED, OFF SEDATION TODAY * Chest x-ray showing left pleural effusion with left lower lobe infiltrative changes-> PULM PLANS FOR THORA TODAY * PER PULM -- Trach decision to be decided within next 48H or so * Afib now rate controlled -- -- leukocytosis on steroids taper * NEW PICC 09/05/18 * Indwelling: Endotracheal tube NG tube Bar catheter DIAGNOSTIC IMAGING * 09/08/18 CXR: Left greater than right mild to moderate pleural effusions with bibasilar consolidations or atelectasis is stable. * 09/06/18 CXR: Diffuse interstitial and patchy airspace opacities throughout the lungs are unchanged along with unchanged large left and moderate right pleural effusions. There is no pneumothorax. The cardiac silhouette is obscured. The aorta is tortuous and atherosclerotic. * 09/20 CXR:IMPRESSION: Cardiomegaly with calcified atherosclerosis in the aorta. Stable central pulmonary vascular congestion and mild interstitial prominence in both lungs. Stable patchy infiltrates throughout both lungs with moderate left pleural effusion and small to moderate right pleural effusion. * 08/31/18 CT of the chest revealed patchy bilateral pulmonary consolidation greater on the left concerning for multilobar pneumonia. Please see full report in the chart MICRO * 09/05/18 Left Upper Lobe: RESPIRATORY CULTURE Preliminary Organism 1 NORMAL RESPIRATORY ALLIE QUANTITY RARE * 08/30/18 Sputum Cx = NORMAL Allie * 08/30/18 BCx(+) CoNS 1/2 bottles * 08/29/18 BCx (-) PHYSICAL EXAMINATION: GENERAL: VSS, NAD HEENT: AT, NC, ORALLY INTUBATED NECK: Supple, CHEST: Rise symmetrical HEART: Pulse RRR ABDOMEN: Benign EXTREMITIES: Warm, dry SKIN: No rash, no diaphoresis ID ASSESSMENT 78 yo M admit with: 1. Severe sepsis with shock 2. Acute hypoxemic respiratory failure possibly aspiration 3. Multilobar pneumonia per CT * Pleural effusion -- plan for THORA 09/09/18 4. COPD 5. History of lung cancer status post radiation, details unknown 6. Atrial fibrillation status post RVR -> now rate controlled 7. Bacteremia, cw contaminant (-)MRSA Nares ABX ALLERGIES: KNDA INVASIVES: PIV, PICC (09/05/18) ETT, NGT, FC CURRENT ABX: DAY # 11=> Vanco IV + Merrem ID RECOMMENDATIONS/PLAN: 1. Culture (-) multilobar PNA w/hx of Lung Cancer -- now with right sided chest tube * Will complete a full 14 day course of ABX then DC 2. Steroids taper, vent management per pulmonary 3. PLAN PER PULMONARY NOTE: * FOR THORA TODAY * Trach decision to be decided within next 48H or so (sister) . Consultation Date/Type/Reason Admit Date/Time Aug 29, 2018 at 18:56 Initial Consult Date Requesting Provider: KARLEY DEAN MD Date/Time of Note DATE: 09/09/18 TIME: 12:12 Exam/Review of Systems Exam Vitals Vital Signs Date Temp Pulse Resp B/P (MAP) Pulse Ox O2 O2 Flow FiO2 Time Delivery Rate 09/09/18 62 18 98 30 11:03 09/09/18 124/57 Mechanical 09:00 (79) Ventilator 09/09/18 97.9 08:00 Intake and Output 09/08/18 09/08/18 09/09/18 1515:00 23:00 07:00 IntakeIntake Total 989 ml 1262 ml 956 ml OutputOutput Total 585 ml 600 ml 650 ml BalanceBalance 404 ml 662 ml 306 ml Results Result Diagram: 09/09/18 0430 09/09/18 0430 Results 24hrs Laboratory Tests Test 09/08/18 13:39 09/08/18 18:26 09/08/18 21:20 09/09/18 00:58 Bedside Glucose 149 158 176 160 Test 09/09/18 04:30 09/09/18 05:24 09/09/18 05:45 09/09/18 09:21 White Blood Count 20.8 H Red Blood Count 2.89 L Hemoglobin 8.0 L Hematocrit 24.9 L Mean Corpuscular 86.2 Volume Mean Corpuscular 27.7 L Hemoglobin Mean Corpuscular 32.1 Hemoglobin Concent Red Cell Distribution 16.7 H Width Platelet Count 309 Mean Platelet Volume 10.9 H Immature Granulocytes 3.300 H % Neutrophils % 84.7 H Lymphocytes % 4.9 L Monocytes % 6.8 Eosinophils % 0.1 Basophils % 0.2 Nucleated Red Blood 0.0 Cells % Immature Granulocytes 0.680 H # Neutrophils # 17.6 H Lymphocytes # 1.0 Monocytes # 1.4 H Eosinophils # 0.0 Basophils # 0.0 Nucleated Red Blood 0.0 Cells # Sodium Level 141 Potassium Level 4.1 Chloride Level 111 H Carbon Dioxide Level 25 Anion Gap 5 Blood Urea Nitrogen 111 H Creatinine 1.59 H Est Glomerular Filtrat Rate mL/min Glucose Level 141 Calcium Level 8.2 L Bedside Glucose 144 138 Lab Scanned Report REFERENCE LAB Medications Medication Current Medications Diltiazem HCl (Cardizem) 30 mg Q8 PO Last administered on 08/29/18 21:47; Admin Dose 30 MG; Start 08/29/18 at 22:00; Status Hold Vancomycin HCl (Vanco Iv Per Pharmacy) VANCOMYCIN PER PHARMACY PER PROTOCOL XX ; Start 08/30/18 at 12:00 Fentanyl 100 ml @ 2.5 mls/hr TITRATE IV Last administered on 09/09/18 02:14; Admin Dose 10 MLS/HR; Start 08/30/18 at 13:30 Atenolol (Tenormin) 12.5 mg BID NGT Last administered on 09/05/18 21:24; Admin Dose 12.5 MG; Start 08/30/18 at 21:00 Digoxin (Digoxin) 0.125 mg DAILY@13 NGT Last administered on 09/03/18 12:59; Admin Dose 0.125 MG; Start 08/30/18 at 13:00; Status Hold Ferrous Sulfate (Feosol Liquid Cup) 300 mg DAILY NGT Last administered on 09/09/18 08:47; Admin Dose 300 MG; Start 08/31/18 at 09:00 Lansoprazole (Prevacid) 30 mg DAILY@06 NGT Last administered on 09/09/18 05:24; Admin Dose 30 MG; Start 08/31/18 at 06:00 Docusate Sodium (Colace Liquid Cup) 100 mg BID PRN NGT CONSTIPATION Last administered on 08/30/18 23:46; Admin Dose 100 MG; Start 08/30/18 at 13:30 Apixaban (Eliquis) 2.5 mg BID NGT Last administered on 09/09/18 08:47; Admin Dose 2.5 MG; Start 08/31/18 at 21:00 Midazolam HCl 50 ml @ 1 mls/hr TITRATE IV Last administered on 09/09/18 05:24; Admin Dose 7 MLS/HR; Start 09/01/18 at 11:00 Meropenem/Sodium Chloride 50 ml @ 100 mls/hr Q12 IVPB Last administered on 09/09/18 08:47; Admin Dose 100 MLS/HR; Start 09/01/18 at 21:00 Miscellaneous Information 1 ea NOTE XX ; Start 09/01/18 at 15:00 Glucose (Glutose) 15 gm Q15M PRN PO DECREASED GLUCOSE; Start 09/01/18 at 15:00 Glucose (Glutose) 22.5 gm Q15M PRN PO DECREASED GLUCOSE; Start 09/01/18 at 15:00 Dextrose (D50w Syringe) 25 ml Q15M PRN IV DECREASED GLUCOSE; Start 09/01/18 at 15:00 Dextrose (D50w Syringe) 50 ml Q15M PRN IV DECREASED GLUCOSE; Start 09/01/18 at 15:00 Glucagon (Glucagen) 1 mg Q15M PRN IM DECREASED GLUCOSE; Start 09/01/18 at 15:00 Glucose (Glutose) 15 gm Q15M PRN BUCCAL DECREASED GLUCOSE; Start 09/01/18 at 15:00 Insulin Aspart (Novolog Insulin Pen) NOVOLOG *MILD* ALGORI... Q4 [place] Last administered on 09/09/18 05:33; Admin Dose 1 UNIT; Start 09/02/18 at 01:00 Albuterol (Ventolin Hfa) 2 puff Q6H RESP THERAPY INH Last administered on 09/09/18 08:02; Admin Dose 2 PUFF; Start 09/03/18 at 14:00 Ipratropium [place] (Atrovent Hfa) 2 puff Q6HWA RESP THERAPY INH Last administered on 09/09/18 08:02; Admin Dose 2 PUFF; Start 09/03/18 at 14:00 Ipratropium [place] (Atrovent Hfa) 2 puff Q6H RESP THERAPY PRN INH SHORTNESS OF BREATH; Start 09/03/18 at 09:30 Albuterol (Ventolin Hfa) 2 puff Q6H RESP THERAPY PRN INH SHORTNESS OF BREATH; Start 09/03/18 at 09:30 Prednisone (Prednisone) 30 mg DAILY PO Last administered on 09/09/18 08:47; Adm in Dose 30 MG; Start 09/05/18 at 09:00 IV Flush (NS 10 ml) 10 ml PRN PRN IV IV PROTOCOL; Start 09/05/18 at 17:00 Vancomycin HCl 100 ml @ 100 mls/hr Q36H IVPB Last administered on 09/08/18at 18:35; Admin Dose 100 MLS/HR; Start 09/07/18 at 06:00 Bisacodyl (Dulcolax Supp) 10 mg QHS [place] Last administered on 09/08/18at 21:20; Admin Dose 10 MG; Start 09/07/18 at 11:30 LILY ARTHUR [employer] ENGINEERING TECHNICIAN Sep 09, 2018 12:16
--- NOTE | 2018-09-09 12:48 | PN ---
Date/Time of Note Date/Time of Note DATE: 09/09/18 TIME: 12:45 Assessment/Plan VTE Prophylaxis Risk score (from Ns)>0 risk: 12 SCD applied (from [facility] [place]): Yes Pharmacological prophylaxis: NA/contraindicated Pharm contraindication: low risk/ambulating Lines/Catheters IV Catheter Type (from [email or web address] PICC Line Central line still needed: Yes Urinary Cath still in place: Yes Reason Cath still needed: urinary retention Assessment/Plan Assessment/Plan ospital Course 1 Septic shock likely due to sepsis /pneumonia . Off pressors 2. ALOC, lethargic. Now sedated follows commands off sedation 3. Atrial fibrillation, now flutter, controlled 4. Hypoxic respiratory failure. Respiratory acidosis, resolved. Status post intubation on 0 628 5. Bilateral pneumonia 6. Congestive heart failure, EF 35 to 40%, 7. Hx of right side lung cancer 8. JAMES on chronic kidney disease, creatinine baseline 1.6. With elevated BUN and creatinine ratio likely ATN secondary to septic shock now Cr downtrending however BUN still high, Good UOP 9. Hx of pleural effusions, right and left and numerous thoracentesis. Now left pleural effusion on chest xray 10. Bilateral pleural effusion 11. Hx of hypertension, now on BP support 12. Hyperlipidemia 13 + bacteremia however new bld cx neg 14 Hypernatremia likely hypovolemic , resolved 15. Anemia Assessment/Pl pleasean -dec free water flushes -Thoracentesis today -cr. decreased,montior urine output -skin care -c/w ICU care -Monitor lytes/urine output -cw pred 30 -pulmonary consult dr Guajardo appreciated -orally intubated 30 % -Cardiology consult dr Hall -With vancomycin/meropenem, -DVT proph. Eliquiz 2.5 mg GT BID -GI proph. Protonix GT Off of sedation and reassess the mental status and respiratory status for possible extubation Result Diagram: 09/09/18 0430 09/09/18 0430 Results 24hrs Laboratory Tests Test 09/08/18 13:39 09/08/18 18:26 09/08/18 21:20 09/09/18 00:58 Bedside Glucose 149 158 176 160 Test 09/09/18 04:30 09/09/18 05:24 09/09/18 05:45 09/09/18 09:21 White Blood Count 20.8 H Red Blood Count 2.89 L Hemoglobin 8.0 L Hematocrit 24.9 L Mean Corpuscular 86.2 Volume Mean Corpuscular 27.7 L Hemoglobin Mean Corpuscular 32.1 Hemoglobin Concent Red Cell Distribution 16.7 H Width Platelet Count 309 Mean Platelet Volume 10.9 H Immature Granulocytes 3.300 H % Neutrophils % 84.7 H Lymphocytes % 4.9 L Monocytes % 6.8 Eosinophils % 0.1 Basophils % 0.2 Nucleated Red Blood 0.0 Cells % Immature Granulocytes 0.680 H # Neutrophils # 17.6 H Lymphocytes # 1.0 Monocytes # 1.4 H Eosinophils # 0.0 Basophils # 0.0 Nucleated Red Blood 0.0 Cells # Sodium Level 141 Potassium Level 4.1 Chloride Level 111 H Carbon Dioxide Level 25 Anion Gap 5 Blood Urea Nitrogen 111 H Creatinine 1.59 H Est Glomerular Filtrat Rate mL/min Glucose Level 141 Calcium Level 8.2 L Bedside Glucose 144 138 Lab Scanned Report REFERENCE LAB Subjective 24 Hr Interval Summary Free Text/Dictation Patient having a lot of secretions. Chest x-ray with left-sided effusion Currently on sedation Exam/Review of Systems Exam Vitals Vital Signs Date Temp Pulse Resp B/P (MAP) Pulse Ox O2 O2 Flow FiO2 Time Delivery Rate 09/09/18 62 18 98 30 11:03 09/09/18 124/57 Mechanical 09:00 (79) Ventilator 09/09/18 97.9 08:00 Intake and Output 09/08/18 09/08/18 09/09/18 1515:00 23:00 07:00 IntakeIntake Total 989 ml 1262 ml 956 ml OutputOutput Total 585 ml 600 ml 650 ml BalanceBalance 404 ml 662 ml 306 ml Exam NG tube with feeding Constitutional: Patient is somewhat sedated however opens his eyes moves all extremities Neck: supple Respiratory: diminished breath sounds Cardiovascular: regular rate and rhythm, other (elizabeth) Gastrointestinal: soft, other (yañez) Musculoskeletal: muscle weakness 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: other (sedated with fentanyl) Results Results 24hrs Laboratory Tests Test 09/08/18 13:39 09/08/18 18:26 09/08/18 21:20 09/09/18 00:58 Bedside Glucose 149 158 176 160 Test 09/09/18 04:30 09/09/18 05:24 09/09/18 05:45 09/09/18 09:21 White Blood Count 20.8 H Red Blood Count 2.89 L Hemoglobin 8.0 L Hematocrit 24.9 L Mean Corpuscular 86.2 Volume Mean Corpuscular 27.7 L Hemoglobin Mean Corpuscular 32.1 Hemoglobin Concent Red Cell Distribution 16.7 H Width Platelet Count 309 Mean Platelet Volume 10.9 H Immature Granulocytes 3.300 H % Neutrophils % 84.7 H Lymphocytes % 4.9 L Monocytes % 6.8 Eosinophils % 0.1 Basophils % 0.2 Nucleated Red Blood 0.0 Cells % Immature Granulocytes 0.680 H # Neutrophils # 17.6 H Lymphocytes # 1.0 Monocytes # 1.4 H Eosinophils # 0.0 Basophils # 0.0 Nucleated Red Blood 0.0 Cells # Sodium Level 141 Potassium Level 4.1 Chloride Level 111 H Carbon Dioxide Level 25 Anion Gap 5 Blood Urea Nitrogen 111 H Creatinine 1.59 H Est Glomerular Filtrat Rate mL/min Glucose Level 141 Calcium Level 8.2 L Bedside Glucose 144 138 Lab Scanned Report REFERENCE LAB Medications Medication Current Medications Diltiazem HCl (Cardizem) 30 mg Q8 PO Last administered on 08/29/18at 21:47; Admin Dose 30 MG; Start 08/29/18 at 22:00; Status Hold Vancomycin HCl (Vanco Iv Per Pharmacy) VANCOMYCIN PER PHARMACY PER PROTOCOL XX ; Start 08/30/18 at 12:00 Fentanyl 100 ml @ 2.5 mls/hr TITRATE IV Last administered on 09/09/18at 02:14; Admin Dose 10 MLS/HR; Start 08/30/18 at 13:30 Atenolol (Tenormin) 12.5 mg BID NGT Last administered on 09/05/18at 21:24; Admin Dose 12.5 MG; Start 08/30/18 at 21:00 Digoxin (Digoxin) 0.125 mg DAILY@13 NGT Last administered on 09/03/18 12:59; Admin Dose 0.125 MG; Start 08/30/18 at 13:00; Status Hold Ferrous Sulfate (Feosol Liquid Cup) 300 mg DAILY NGT Last administered on 09/09/18 08:47; Admin Dose 300 MG; Start 08/31/18 at 09:00 Lansoprazole (Prevacid) 30 mg DAILY@06 NGT Last administered on 09/09/18 05:24; Admin Dose 30 MG; Start 08/31/18 at 06:00 Docusate Sodium (Colace Liquid Cup) 100 mg BID PRN NGT CONSTIPATION Last administered on 08/30/18 23:46; Admin Dose 100 MG; Start 08/30/18 at 13:30 Apixaban (Eliquis) 2.5 mg BID NGT Last administered on 09/09/18 08:47; Admin Dose 2.5 MG; Start 08/31/18 at 21:00 Midazolam HCl 50 ml @ 1 mls/hr TITRATE IV Last administered on 09/09/18 05:24; Admin Dose 7 MLS/HR; Start 09/01/18 at 11:00 Meropenem/Sodium Chloride 50 ml @ 100 mls/hr Q12 IVPB Last administered on 09/09/18 08:47; Admin Dose 100 MLS/HR; Start 09/01/18 at 21:00 Miscellaneous Information 1 ea NOTE XX ; Start 09/01/18 at 15:00 Glucose (Glutose) 15 gm Q15M PRN PO DECREASED GLUCOSE; Start 09/01/18 at 15:00 Glucose (Glutose) 22.5 gm Q15M PRN PO DECREASED GLUCOSE; Start 09/01/18 at 15:00 Dextrose (D50w Syringe) 25 ml Q15M PRN IV DECREASED GLUCOSE; Start 09/01/18 at 15:00 Dextrose (D50w Syringe) 50 ml Q15M PRN IV DECREASED GLUCOSE; Start 09/01/18 at 15:00 Glucagon (Glucagen) 1 mg Q15M PRN IM DECREASED GLUCOSE; Start 09/01/18 at 15:00 Glucose (Glutose) 15 gm Q15M PRN BUCCAL DECREASED GLUCOSE; Start 09/01/18 at 15:00 Insulin Aspart (Novolog Insulin Pen) NOVOLOG *MILD* ALGORI... Q4 SC Last administered on 09/09/18 05:33; Admin Dose 1 UNIT; Start 09/02/18 at 01:00 Albuterol (Ventolin Hfa) 2 puff Q6H RESP THERAPY INH Last administered on 09/09/18 08:02; Admin Dose 2 PUFF; Start 09/03/18 at 14:00 Ipratropium [place] (Atrovent Hfa) 2 puff Q6HWA RESP THERAPY INH Last administered on 09/09/18 08:02; Admin Dose 2 PUFF; Start 09/03/18 at 14:00 Ipratropium [place] (Atrovent Hfa) 2 puff Q6H RESP THERAPY PRN INH SHORTNESS OF BREATH; Start 09/03/18 at 09:30 Albuterol (Ventolin Hfa) 2 puff Q6H RESP THERAPY PRN INH SHORTNESS OF BREATH; Start 09/03/18 at 09:30 Prednisone (Prednisone) 30 mg DAILY PO Last administered on 09/09/18at 08:47; Admin Dose 30 MG; Start 09/05/18 at 09:00 IV Flush (NS 10 ml) 10 ml PRN PRN IV IV PROTOCOL; Start 09/05/18 at 17:00 Vancomycin HCl 100 ml @ 100 mls/hr Q36H IVPB Last administered on 09/08/18at 18: 35; Admin Dose 100 MLS/HR; Start 09/07/18 at 06:00 Bisacodyl (Dulcolax Supp) 10 mg QHS [place] Last administered on 09/08/18at 21:20; Admin Dose 10 MG; Start 09/07/18 at 11:30 FIDEL GAVIN MD Sep 09, 2018 12:48
[2018-09-09] MEDS: BISACODYL 10 MG SUPP PR SCH (20:53)
[2018-09-10] VITALS (38 sets, daily range): BP systolic 79–141; BP diastolic 30–67; PULSE 54–119; RESP 14–28
[2018-09-10] MEDS: FENTAnyl (DRIP) 1000 mcg/100mL 100 ML IV SCH ×3 (00:41→18:17)
[2018-09-10] MEDS: INSULIN ASPART [NOVOLOG] 3 ML PEN SC SCH ×6 (01:00→20:53)
[2018-09-10] MEDS: ALBUTEROL HFA 8 GM INHALER INH SCH ×4 (01:56→19:22)
[2018-09-10] MEDS: VANCOMYCIN 500 MG (PMX) 100 ML IVPB SCH (06:05)
[2018-09-10] MEDS: LANSOPRAZOLE 30 MG CAP NGT SCH (06:05)
[2018-09-10] MEDS: MIDAZOLAM (DRIP) 50 mg/50 mL 50 ML IV SCH ×3 (07:21→18:17)
[2018-09-10] MEDS: FERROUS SULFATE 60 MG/ML 5ML CUP NGT SCH (08:02)
[2018-09-10] MEDS: ATENOLOL 25 MG TAB NGT SCH ×2 (08:02→20:45)
[2018-09-10] MEDS: MEROPENEM 500MG/50 ML (PMX) 50 ML IVPB SCH ×2 (08:02→20:45)
[2018-09-10] MEDS: predniSONE 10 MG TAB PO SCH (08:02)
[2018-09-10] MEDS: IPRATROPIUM (HFA) 12.9 GM INHALER INH SCH ×3 (08:36→19:22)
--- NOTE | 2018-09-10 09:36 | CONS ---
Assessment/Plan Assessment/Plan Assessment/Plan (Daily) Ventilator setting; assist control of 18, tidal volume 550, PEEP of 5, 30% FiO2. Patient is currently on fentanyl drip 100 mics per hour, Versed 7 mg/h. Assessment and recommendations; 1. Patient with history of lung cancer as well as COPD admitted with respiratory failure due to bilateral pneumonia with significant left lower lobe involvement with recurrent left pleural effusion. 2. Chronic atrial fibrillation. 3. Anemia. 4. Chronic renal insufficiency. 5. Gram-positive bacteremia with coagulase-negative staph aureus with the most recent cultures being negative. 6. History of hypertension. Continue current supportive care. Patient scheduled for left thoracentesis today. Prognosis is poor. Consultation Date/Type/Reason Admit Date/Time Aug 29, 2018 at 18:56 Initial Consult Date Type of Consult Pulmonary/critical care Patient condition is critical. Still intubated. Patient failed a CPAP trial yesterday. Patient however has remained hemodynamically stable. General exam; elderly male, orally intubated, sedated, currently in no distress. Requesting Provider: KARLEY DEAN MD Date/Time of Note DATE: 09/10/18 TIME: 09:34 24 HR Interval Summary Free Text/Dictation Patient's condition is critical. Patient however has remained hemodynamically stable. General exam; elderly male, orally intubated, sedated, currently in no distress. Exam/Review of Systems Exam Vitals Vital Signs Date Temp Pulse Resp B/P (MAP) Pulse Ox O2 O2 Flow FiO2 Time Delivery Rate 09/10/18 81 18 102/50 100 08:30 (67) 09/10/18 97.9 Mechanical 08:00 Ventilator 09/10/18 30 08:00 Intake and Output 09/09/18 09/09/18 09/10/18 1515:00 23:00 07:00 IntakeIntake Total 826.5 ml 560 ml 501.0 ml OutputOutput Total 610 ml 400 ml 525 ml BalanceBalance 216.5 ml 160 ml -24.0 ml Exam H EENT exam; supple neck, no JVD. No lymphadenopathy. Midline trachea. No thyromegaly. Orogastric tube in place. Patient has fair dentition. No neck masses. Pupils are small bilaterally. Chest exam; diminished breath sounds bilaterally more pronounced in left lower lobe. S1-S2 audible, no murmurs. Irregular rhythm. Abdomen exam; soft, no organomegaly. Bowel sounds audible. Extremity exam; no peripheral edema. 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 Results Result Diagram: 09/10/18 0430 09/10/18 0430 Results 24hrs Laboratory Tests Test 09/09/18 13:27 09/09/18 17:24 09/09/18 20:52 09/10/18 00:56 Bedside Glucose 145 128 131 108 Test 09/10/18 04:30 09/10/18 04:31 09/10/18 08:07 White Blood Count 15.6 #H Red Blood Count 2.91 L Hemoglobin 8.0 L Hematocrit 25.0 L Mean Corpuscular Volume 85.9 Mean Corpuscular 27.5 L Hemoglobin Mean Corpuscular 32.0 Hemoglobin Concent Red Cell Distribution 17.2 H Width Platelet Count 319 Mean Platelet Volume 11.1 H Immature Granulocytes % 2.900 H Neutrophils % 77.1 H Lymphocytes % 8.5 L Monocytes % 10.5 Eosinophils % 0.9 Basophils % 0.1 Nucleated Red Blood 0.0 Cells % Immature Granulocytes # 0.450 H Neutrophils # 12.0 H Lymphocytes # 1.3 Monocytes # 1.6 H Eosinophils # 0.1 Basophils # 0.0 Nucleated Red Blood 0.0 Cells # Sodium Level 142 Potassium Level 3.7 Chloride Level 112 H Carbon Dioxide Level 25 Anion Gap 5 Blood Urea Nitrogen 106 H Creatinine 1.44 H Est Glomerular Filtrat Rate mL/min Glucose Level 97 # Calcium Level 8.1 L Phosphorus Level 3.7 Magnesium Level 2.3 Total Bilirubin 0.2 Direct Bilirubin 0.00 Indirect Bilirubin 0.2 Aspartate Amino 22 Transf (AST/SGOT) Alanine 27 Aminotransferase (ALT/SG PT) Alkaline Phosphatase 71 Total Protein 4.7 L Albumin 2.0 L Globulin 2.70 Albumin/Globulin Ratio 0.74 Vancomycin Level Trough 14.7 Bedside Glucose 107 72 Medications Medication Current Medications Diltiazem HCl (Cardizem) 30 mg Q8 PO Last administered on 08/29/18at 21:47; Admin Dose 30 MG; Start 08/29/18 at 22:00; Status Hold Vancomycin HCl (Vanco Iv Per Pharmacy) VANCOMYCIN PER PHARMACY PER PROTOCOL XX ; Start 08/30/18 at 12:00 Fentanyl 100 ml @ 2.5 mls/hr TITRATE IV Last administered on 09/10/18at 00:41; Admin Dose 10 MLS/HR; Start 08/30/18 at 13:30 Atenolol (Tenormin) 12.5 mg BID NGT Last administered on 09/09/18 20:53; Admin Dose 12.5 MG; Start 08/30/18 at 21:00 Digoxin (Digoxin) 0.125 mg DAILY@13 NGT Last administered on 09/03/18 12:59; Admin Dose 0.125 MG; Start 08/30/18 at 13:00; Status Hold Ferrous Sulfate (Feosol Liquid Cup) 300 mg DAILY NGT Last administered on 09/10/18 08:02; Admin Dose 300 MG; Start 08/31/18 at 09:00 Lansoprazole (Prevacid) 30 mg DAILY@06 NGT Last administered on 09/10/18 06:05; Admin Dose 30 MG; Start 08/31/18 at 06:00 Docusate Sodium (Colace Liquid Cup) 100 mg BID PRN NGT CONSTIPATION Last administered on 08/30/18 23:46; Admin Dose 100 MG; Start 08/30/18 at 13:30 Midazolam HCl 50 ml @ 1 mls/hr TITRATE IV Last administered on 09/10/18 07:21; Admin Dose 7 MLS/HR; Start 09/01/18 at 11:00 Meropenem/Sodium Chloride 50 ml @ 100 mls/hr Q12 IVPB Last administered on 09/10/18 08:02; Admin Dose 100 MLS/HR; Start 09/01/18 at 21:00 Miscellaneous Information 1 ea NOTE XX ; Start 09/01/18 at 15:00 Glucose (Glutose) 15 gm Q15M PRN PO DECREASED GLUCOSE; Start 09/01/18 at 15:00 Glucose (Glutose) 22.5 gm Q15M PRN PO DECREASED GLUCOSE; Start 09/01/18 at 15:00 Dextrose (D50w Syringe) 25 ml Q15M PRN IV DECREASED GLUCOSE; Start 09/01/18 at 15:00 Dextrose (D50w Syringe) 50 ml Q15M PRN IV DECREASED GLUCOSE; Start 09/01/18 at 15:00 Glucagon (Glucagen) 1 mg Q15M PRN IM DECREASED GLUCOSE; Start 09/01/18 at 15:00 Glucose (Glutose) 15 gm Q15M PRN BUCCAL DECREASED GLUCOSE; Start 09/01/18 at 15:00 Insulin Aspart (Novolog Insulin Pen) NOVOLOG *MILD* ALGORI... Q4 SC Last administered on 09/09/18 13:33; Admin Dose 1 UNIT; Start 09/02/18 at 01:00 Albuterol (Ventolin Hfa) 2 puff Q6H RESP THERAPY INH Last administered on 09/10/18 08:37; Admin Dose 2 PUFF; Start 09/03/18 at 14:00 Ipratropium [place] (Atrovent Hfa) 2 puff Q6HWA RESP THERAPY INH Last administered on 09/10/18 08:36; Admin Dose 2 PUFF; Start 09/03/18 at 14:00 Ipratropium [place] (Atrovent Hfa) 2 puff Q6H RESP THERAPY PRN INH SHORTNESS OF BREATH; Start 09/03/18 at 09:30 Albuterol (Ventolin Hfa) 2 puff Q6H RESP THERAPY PRN INH SHORTNESS OF BREATH; Start 09/03/18 at 09:30 Prednisone (Prednisone) 30 mg DAILY PO Last administered on 09/10/18 08:02; Admin Dose 30 MG; Start 09/05/18 at 09:00 IV Flush (NS 10 ml) 10 ml PRN PRN IV IV PROTOCOL; Start 09/05/18 at 17:00 Vancomycin HCl 100 ml @ 100 mls/hr Q36H IVPB Last administered on 09/10/18 06:05; Admin Dose 100 MLS/HR; Start 09/07/18 at 06:00 Bisacodyl (Dulcolax Supp) 10 mg QHS [place] Last administered on 09/09/18at 20:53; Admin Dose 10 MG; Start 09/07/18 at 11:30 ALAN DICKERSON Sep 10, 2018 09:36
--- NOTE | 2018-09-10 10:23 | CONS ---
Consult Date/Type/Reason Admit Date/Time Aug 29, 2018 at 18:56 Initial Consult Date Type of Consultation: Pulm/CCM Requesting Provider: KARLEY DEAN MD Date/Time of Note DATE: 09/10/18 TIME: 10:18 Subjective NO acute events - pt stable - in a. fib - rate controlled - not really weaning - pulmonary team on board - con't rate control for now - no plan for pacer at this point. ROS: No fever, no chills, no nausea, no vomiting, no diarrhea/constipation - per nurse, chronic SOB, comfortable Objective Vitals Vital Signs Date Temp Pulse Resp B/P (MAP) Pulse Ox O2 O2 Flow FiO2 Time Delivery Rate 09/10/18 81 18 102/50 100 08:30 (67) 09/10/18 97.9 Mechanical 08:00 Ventilator 09/10/18 30 08:00 Intake and Output 09/09/18 09/09/18 09/10/18 1414:59 22:59 06:59 IntakeIntake Total 826.5 ml 562 ml 539.0 ml OutputOutput Total 640 ml 420 ml 575 ml BalanceBalance 186.5 ml 142 ml -36.0 ml Exam General: WN/WD/NAD, AOx 0 HEENT: Unicetric/atraumatic/EOMI (does not follow commands) NECK: JVD elevated, no thyromegaly - intubated Lymph: no lymphadenopathy HEART: ir irregular with no S3, II/ systolic murmur at apex LUNGS: Coarse sounds ABD: soft, NT, ND, +BS : Intact Neuro: non focal SKIN: chronic changes EXT: trace edema Results/Medications Result Diagram: 09/10/18 0430 09/10/18 0430 Results 24 hrs Laboratory Tests Test 09/09/18 13:27 09/09/18 17:24 09/09/18 20:52 09/10/18 00:56 Bedside Glucose 145 128 131 108 Test 09/10/18 04:30 09/10/18 04:31 09/10/18 08:07 White Blood Count 15.6 #H Red Blood Count 2.91 L Hemoglobin 8.0 L Hematocrit 25.0 L Mean Corpuscular Volume 85.9 Mean Corpuscular 27.5 L Hemoglobin Mean Corpuscular 32.0 Hemoglobin Concent Red Cell Distribution 17.2 H Width Platelet Count 319 Mean Platelet Volume 11.1 H Immature Granulocytes % 2.900 H Neutrophils % 77.1 H Lymphocytes % 8.5 L Monocytes % 10.5 Eosinophils % 0.9 Basophils % 0.1 Nucleated Red Blood 0.0 Cells % Immature Granulocytes # 0.450 H Neutrophils # 12.0 H Lymphocytes # 1.3 Monocytes # 1.6 H Eosinophils # 0.1 Basophils # 0.0 Nucleated Red Blood 0.0 Cells # Sodium Level 142 Potassium Level 3.7 Chloride Level 112 H Carbon Dioxide Level 25 Anion Gap 5 Blood Urea Nitrogen 106 H Creatinine 1.44 H Est Glomerular Filtrat Rate mL/min Glucose Level 97 # Calcium Level 8.1 L Phosphorus Level 3.7 Magnesium Level 2.3 Total Bilirubin 0.2 Direct Bilirubin 0.00 Indirect Bilirubin 0.2 Aspartate Amino 22 Transf (AST/SGOT) Alanine 27 Aminotransferase (ALT/SG PT) Alkaline Phosphatase 71 Total Protein 4.7 L Albumin 2.0 L Globulin 2.70 Albumin/Globulin Ratio 0.74 Vancomycin Level Trough 14.7 Bedside Glucose 107 72 Home Meds Reported Medications Mupirocin Calcium* (Mupirocin*) 2% - 15 Gram Cream..g., 1 APPLIC TOP BID, #1 TUB 08/29/18 Ondansetron Hcl* (Zofran*) 4 Mg Tab, 4 MG PO Q6H PRN for NAUSEA AND OR VOMITING, TAB 08/29/18 Ipratropium-Albuterol (Ipratropium-Albuterol) 0.5-3 Mg/3 Ml Ampul.neb, 3 ML INHALATION Q6 PRN for WHEEZING AND SOB, #30 VIAL 08/29/18 Ferrous Sulfate* (Ferrous Sulfate*) 325 Mg Tabec, 325 MG PO DAILY, TAB 08/29/18 Apixaban* (Eliquis*) 5 Mg Tablet, 5 MG PO BID, TAB 08/29/18 Docusate Sodium* (Colace*) 100 Mg Capsule, 100 MG PO BID, #60 CAP 08/29/18 Bisacodyl* (Bisacodyl*) 5 Mg Tablet.dr, 10 MG PO BID PRN for CONSTIPATION, TAB 08/29/18 Tuberculin,Purif.prot.deriv. (Aplisol) 5 Tub Unit/0.1 Ml Vial, 5 TUB ID ONCE, VIAL START DATE 08/31/18 -- END DATE 09/01/18 08/29/18 Acetaminophen* (Acetaminophen*) 650 Mg Tablet, 650 MG PO Q6H PRN for PAIN LEVEL 1-10/10, #30 TAB AND FEVER>101F 08/29/18 Guaifenesin (Guaifenesin) 100 Mg/5 Ml Liquid, 10 ML PO NEEDED PRN for COUGH, ML 08/13/18 Diltiazem Hcl* (Cardizem*) 30 Mg Tablet, 30 MG PO Q8 for CHF, #90 TAB HOLD IF SBP<110 OR HR<60 08/13/18 Aspirin* (Aspirin* EC) 81 Mg Tablet.dr, 81 MG PO DAILY, TAB 08/13/18 Digoxin* (Digitek*) 125 Mcg Tablet, 0.125 MG PO DAILY, TAB HOLD IF SBP<110 OR HR<60 08/13/18 Atenolol* (Atenolol*) 25 Mg Tablet, 12.5 MG PO BID, #60 TAB HOLD IF SBP<110 OR HR<60 08/13/18 Furosemide* (Furosemide*) 40 Mg Tablet, 40 MG PO DAILY, TAB HOLD IF SBP<110 OR HR<60 08/13/18 Magnesium Hydroxide* (Milk Of Magnesia*) 400 Mg/5 Ml Oral.susp, 30 ML PO DAILY, ML 08/13/18 Potassium Chloride* (Klor-Con*) 20 Meq Tabsr, 20 MEQ PO DAILY, TAB.SA 07/11/18 Pantoprazole* (Pantoprazole*) 40 Mg Tablet.dr, 40 MG PO DAILY, TAB 07/11/18 Medications Current Medications Diltiazem HCl (Cardizem) 30 mg Q8 PO Last administered on 08/29/18at 21:47; Admin Dose 30 MG; Start 08/29/18 at 22:00; Status Hold Vancomycin HCl (Vanco Iv Per Pharmacy) VANCOMYCIN PER PHARMACY PER PROTOCOL XX ; Start 08/30/18 at 12:00 Fentanyl 100 ml @ 2.5 mls/hr TITRATE IV Last administered on 09/10/18at 00:41; Admin Dose 10 MLS/HR; Start 08/30/18 at 13:30 Atenolol (Tenormin) 12.5 mg BID NGT Last administered on 09/09/18at 20:53; Admin Dose 12.5 MG; Start 08/30/18 at 21:00 Digoxin (Digoxin) 0.125 mg DAILY@13 NGT Last administered on 09/03/18at 12:59; Admin Dose 0.125 MG; Start 08/30/18 at 13:00; Status Hold Ferrous Sulfate (Feosol Liquid Cup) 300 mg DAILY NGT Last administered on 9at 08:02; Admin Dose 300 MG; Start 08/31/18 at 09:00 Lansoprazole (Prevacid) 30 mg DAILY@06 NGT Last administered on 09/10/18at 06:05; Admin Dose 30 MG; Start 08/31/18 at 06:00 Docusate Sodium (Colace Liquid Cup) 100 mg BID PRN NGT CONSTIPATION Last administered on 08/30/18at 23:46; Admin Dose 100 MG; Start 08/30/18 at 13:30 Midazolam HCl 50 ml @ 1 mls/hr TITRATE IV Last administered on 09/10/18at 07:21; Admin Dose 7 MLS/HR; Start 09/01/18 at 11:00 Meropenem/Sodium Chloride 50 ml @ 100 mls/hr Q12 IVPB Last administered on 09/10/18at 08:02; Admin Dose 100 MLS/HR; Start 09/01/18 at 21:00 Miscellaneous Information 1 ea NOTE XX ; Start 09/01/18 at 15:00 Glucose (Glutose) 15 gm Q15M PRN PO DECREASED GLUCOSE; Start 09/01/18 at 15:00 Glucose (Glutose) 22.5 gm Q15M PRN PO DECREASED GLUCOSE; Start 09/01/18 at 15:00 Dextrose (D50w Syringe) 25 ml Q15M PRN IV DECREASED GLUCOSE; Start 09/01/18 at 15:00 Dextrose (D50w Syringe) 50 ml Q15M PRN IV DECREASED GLUCOSE; Start 09/01/18 at 15:00 Glucagon (Glucagen) 1 mg Q15M PRN IM DECREASED GLUCOSE; Start 09/01/18 at 15:00 Glucose (Glutose) 15 gm Q15M PRN BUCCAL DECREASED GLUCOSE; Start 09/01/18 at 15:00 Insulin Aspart (Novolog Insulin Pen) NOVOLOG *MILD* ALGORI... Q4 SC Last administered on 09/09/18at 13:33; Admin Dose 1 UNIT; Start 09/02/18 at 01:00 Albuterol (Ventolin Hfa) 2 puff Q6H RESP THERAPY INH Last administered on 09/10/18at 08:37; Admin Dose 2 PUFF; Start 09/03/18 at 14:00 Ipratropium [place] (Atrovent Hfa) 2 puff Q6HWA RESP THERAPY INH Last administered on 09/10/18at 08:36; Admin Dose 2 PUFF; Start 09/03/18 at 14:00 Ipratropium [place] (Atrovent Hfa) 2 puff Q6H RESP THERAPY PRN INH SHORTNESS OF BREATH; Start 09/03/18 at 09:30 Albuterol (Ventolin Hfa) 2 puff Q6H RESP THERAPY PRN INH SHORTNESS OF BREATH; Start 09/03/18 at 09:30 Prednisone (Prednisone) 30 mg DAILY PO Last administered on 09/10/18at 08:02; Admin Dose 30 MG; Start 09/05/18 at 09:00 IV Flush (NS 10 ml) 10 ml PRN PRN IV IV PROTOCOL; Start 09/05/18 at 17:00 Vancomycin HCl 100 ml @ 100 mls/hr Q36H IVPB Last administered on 09/10/18at 06:05; Admin Dose 100 MLS/HR; Start 09/07/18 at 06:00 Bisacodyl (Dulcolax Supp) 10 mg QHS [place] Last administered on 09/09/18at 20:53; Adm in Dose 10 MG; Start 09/07/18 at 11:30 Assessment/Plan Hospital Course (Demo Recall) 1. Atrial fibrillation with a rapid ventricular response - rate controlled - will monitor to ICU. D/C dilt gtt now with low BP. Rate controlled off dilt gtt now. Rate controlled. Will monitor for now. Few episodes of elizabeth, but BP stable - will monitor clinically now. Rate better controlled. No pacer planned now. Hold BB if needed. No pacer planned today - con't to follow clinically. HR stable. 2. Congestive heart failure exacerbation, diastolic by most recent echo in July 2018 revealing a preserved EF of 65%, acute on chronic by history. Not in CHF by exam. Keep euvolemic. Euvolemic by exam- Cr high, but trending down. Better today. 3. Hypertension, mildly elevated - well Rx now. Supportive Rx now. BETTER now. Stable. Pt sedated. Treated. 4. Respiratory distress - transfer to ICU - con't pulm care per pulmonary team. Con't resp Rx. Might need trach. Treated. 5. Shortness of breath, likely multifactorial secondary to heart failure and chronic obstructive pulmonary disease exacerbation - now intubated, better overall. 6. Probable chronic obstructive pulmonary disease exacerbation - plus anti-Bx for PNA. Treated. 7. Pneumonia, right lower lobe by chest x-ray, new since discharge, question aspiration. Con;t anti-Bx On meds - high secretions. Overall improved. On therapy. 8. Hyponatremia. 9. Severe leukocytosis - better now, on anti-Bx, ID follows. 10. Anemia, mild - decrease dose Eliquis Cr a little better at 1.96 but H/H down - if con't to go down, will hold anti-coagulation. EMILY SANTAMARIA MD Sep 10, 2018 10:23
--- NOTE | 2018-09-10 10:46 | CONS ---
Assessment/Plan Assessment/Plan Assessment/Plan (Daily) Last time seen patient he has not improved and he is failed CPAP trials. Still requires sedation, history of lung cancer COPD, hypoxemic respiratory failure, aspiration and septic shock. I spoken to primary care team since patient has failed all aggressive interventions, they have decided to give patient another CPAP trial. If this does not work will clear with primary care prior to calling patient's agent and instituting comfort measures. Consultation Date/Type/Reason Admit Date/Time Aug 29, 2018 at 18:56 Date/Time of Note DATE: 09/10/18 TIME: 10:45 Past Medical History Medical History: congestive heart failure, coronary artery disease, hypertension, renal disease Home Meds Reported Medications Mupirocin Calcium* (Mupirocin*) 2% - 15 Gram Cream..g., 1 APPLIC TOP BID, #1 TUB 08/29/18 Ondansetron Hcl* (Zofran*) 4 Mg Tab, 4 MG PO Q6H PRN for NAUSEA AND OR VOMITING, TAB 08/29/18 Ipratropium-Albuterol (Ipratropium-Albuterol) 0.5-3 Mg/3 Ml Ampul.neb, 3 ML INHALATION Q6 PRN for WHEEZING AND SOB, #30 VIAL 08/29/18 Ferrous Sulfate* (Ferrous Sulfate*) 325 Mg Tabec, 325 MG PO DAILY, TAB 08/29/18 Apixaban* (Eliquis*) 5 Mg Tablet, 5 MG PO BID, TAB 08/29/18 Docusate Sodium* (Colace*) 100 Mg Capsule, 100 MG PO BID, #60 CAP 08/29/18 Bisacodyl* (Bisacodyl*) 5 Mg Tablet.dr, 10 MG PO BID PRN for CONSTIPATION, TAB 08/29/18 Tuberculin,Purif.prot.deriv. (Aplisol) 5 Tub Unit/0.1 Ml Vial, 5 TUB ID ONCE, VIAL START DATE 08/31/18 -- END DATE 09/01/18 08/29/18 Acetaminophen* (Acetaminophen*) 650 Mg Tablet, 650 MG PO Q6H PRN for PAIN LEVEL 1-10/10, #30 TAB AND FEVER>101F 08/29/18 Guaifenesin (Guaifenesin) 100 Mg/5 Ml Liquid, 10 ML PO NEEDED PRN for COUGH, ML 08/13/18 Diltiazem Hcl* (Cardizem*) 30 Mg Tablet, 30 MG PO Q8 for CHF, #90 TAB HOLD IF SBP<110 OR HR<60 08/13/18 Aspirin* (Aspirin* EC) 81 Mg Tablet.dr, 81 MG PO DAILY, TAB 08/13/18 Digoxin* (Digitek*) 125 Mcg Tablet, 0.125 MG PO DAILY, TAB HOLD IF SBP<110 OR HR<60 08/13/18 Atenolol* (Atenolol*) 25 Mg Tablet, 12.5 MG PO BID, #60 TAB HOLD IF SBP<110 OR HR<60 08/13/18 Furosemide* (Furosemide*) 40 Mg Tablet, 40 MG PO DAILY, TAB HOLD IF SBP<110 OR HR<60 08/13/18 Magnesium Hydroxide* (Milk Of Magnesia*) 400 Mg/5 Ml Oral.susp, 30 ML PO DAILY, ML 08/13/18 Potassium Chloride* (Klor-Con*) 20 Meq Tabsr, 20 MEQ PO DAILY, TAB.SA 07/11/18 Pantoprazole* (Pantoprazole*) 40 Mg Tablet.dr, 40 MG PO DAILY, TAB 07/11/18 Medications Current Medications Diltiazem HCl (Cardizem) 30 mg Q8 PO Last administered on 08/29/18at 21:47; Ad min Dose 30 MG; Start 08/29/18 at 22:00; Status Hold Vancomycin HCl (Vanco Iv Per Pharmacy) VANCOMYCIN PER PHARMACY PER PROTOCOL XX ; Start 08/30/18 at 12:00 Fentanyl 100 ml @ 2.5 mls/hr TITRATE IV Last administered on 09/10/18at 00:41; Admin Dose 10 MLS/HR; Start 08/30/18 at 13:30 Atenolol (Tenormin) 12.5 mg BID NGT Last administered on 09/09/18at 20:53; Admin Dose 12.5 MG; Start 08/30/18 at 21:00 Digoxin (Digoxin) 0.125 mg DAILY@13 NGT Last administered on 09/03/18at 12:59; Admin Dose 0.125 MG; Start 08/30/18 at 13:00; Status Hold Ferrous Sulfate (Feosol Liquid Cup) 300 mg DAILY NGT Last administered on 09/10/18at 08:02; Admin Dose 300 MG; Start 08/31/18 at 09:00 Lansoprazole (Prevacid) 30 mg DAILY@06 NGT Last administered on 09/10/18at 06:05; Admin Dose 30 MG; Start 08/31/18 at 06:00 Docusate Sodium (Colace Liquid Cup) 100 mg BID PRN NGT CONSTIPATION Last administered on 08/30/18at 23:46; Admin Dose 100 MG; Start 08/30/18 at 13:30 Midazolam HCl 50 ml @ 1 mls/hr TITRATE IV Last administered on 09/10/18at 07:21; Admin Dose 7 MLS/HR; Start 09/01/18 at 11:00 Meropenem/Sodium Chloride 50 ml @ 100 mls/hr Q12 IVPB Last administered on 09/10/18 08:02; Admin Dose 100 MLS/HR; Start 09/01/18 at 21:00 Miscellaneous Information 1 ea NOTE XX ; Start 09/01/18 at 15:00 Glucose (Glutose) 15 gm Q15M PRN PO DECREASED GLUCOSE; Start 09/01/18 at 15:00 Glucose (Glutose) 22.5 gm Q15M PRN PO DECREASED GLUCOSE; Start 09/01/18 at 15:00 Dextrose (D50w Syringe) 25 ml Q15M PRN IV DECREASED GLUCOSE; Start 09/01/18 at 15:00 Dextrose (D50w Syringe) 50 ml Q15M PRN IV DECREASED GLUCOSE; Start 09/01/18 at 15:00 Glucagon (Glucagen) 1 mg Q15M PRN IM DECREASED GLUCOSE; Start 09/01/18 at 15:00 Glucose (Glutose) 15 gm Q15M PRN BUCCAL DECREASED GLUCOSE; Start 09/01/18 at 15:00 Insulin Aspart (Novolog Insulin Pen) NOVOLOG *MILD* ALGORI... Q4 SC Last administered on 09/09/18at 13:33; Admin Dose 1 UNIT; Start 09/02/18 at 01:00 Albuterol (Ventolin Hfa) 2 puff Q6H RESP THERAPY INH Last administered on 08:37; Admin Dose 2 PUFF; Start 09/03/18 at 14:00 Ipratropium [place] (Atrovent Hfa) 2 puff Q6HWA RESP THERAPY INH Last administered on 7/9/19at 08:36; Admin Dose 2 PUFF; Start 09/03/18 at 14:00 Ipratropium [place] (Atrovent Hfa) 2 puff Q6H RESP THERAPY PRN INH SHORTNESS OF BREATH; Start 09/03/18 at 09:30 Albuterol (Ventolin Hfa) 2 puff Q6H RESP THERAPY PRN INH SHORTNESS OF BREATH; Start 09/03/18 at 09:30 Prednisone (Prednisone) 30 mg DAILY PO Last administered on 09/10/18at 08:02; Admin Dose 30 MG; Start 09/05/18 at 09:00 IV Flush (NS 10 ml) 10 ml PRN PRN IV IV PROTOCOL; Start 09/05/18 at 17:00 Vancomycin HCl 100 ml @ 100 mls/hr Q36H IVPB Last administered on 09/10/18at 06:05; Admin Dose 100 MLS/HR; Start 09/07/18 at 06:00 Bisacodyl (Dulcolax Supp) [address] Last administered on 09/09/18at 20:53; Admin Dose 10 MG; Start 09/07/18 at 11:30 Allergies: Coded Allergies: No Known Allergies (Verified Allergy, Unknown, 08/29/18) Past Surgical History Past Surgical Hx: coronary bypass surgery, other (left endarartectomy carotid) Social History Alcohol Use: none Smoking Status: Current every day smoker Drug Use: none Exam/Review of Systems Exam Vitals Vital Signs Date Temp Pulse Resp B/P (MAP) Pulse Ox O2 O2 Flow FiO2 Time Delivery Rate 09/10/18 81 18 102/50 100 08:30 (67) 09/10/18 97.9 Mechanical 08:00 Ventilator 09/10/18 30 08:00 Intake and Output 09/09/18 09/09/18 09/10/18 1515:00 23:00 07:00 IntakeIntake Total 826.5 ml 560 ml 501.0 ml OutputOutput Total 610 ml 400 ml 525 ml BalanceBalance 216.5 ml 160 ml -24.0 ml Constitutional: other (Sedated) ENMT: nl external ears & nose, nl lips & teeth, nl nasal mucosa & septum; No mucosa pink and moist, No intubated, No tympanic membranes, No other Respiratory: congested cough, crackles/rales, diminished breath sounds Cardiovascular: other (Not assessed) 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: other (Sedated) Results Result Diagram: 09/10/18 0430 09/10/18 0430 Results 24hrs Laboratory Tests Test 09/09/18 13:27 09/09/18 17:24 09/09/18 20:52 09/10/18 00:56 Bedside Glucose 145 128 131 108 Test 09/10/18 04:30 09/10/18 04:31 09/10/18 08:07 White Blood Count 15.6 #H Red Blood Count 2.91 L Hemoglobin 8.0 L Hematocrit 25.0 L Mean Corpuscular Volume 85.9 Mean Corpuscular 27.5 L Hemoglobin Mean Corpuscular 32.0 Hemoglobin Concent Red Cell Distribution 17.2 H Width Platelet Count 319 Mean Platelet Volume 11.1 H Immature Granulocytes % 2.900 H Neutrophils % 77.1 H Lymphocytes % 8.5 L Monocytes % 10.5 Eosinophils % 0.9 Basophils % 0.1 Nucleated Red Blood 0.0 Cells % Immature Granulocytes # 0.450 H Neutrophils # 12.0 H Lymphocytes # 1.3 Monocytes # 1.6 H Eosinophils # 0.1 Basophils # 0.0 Nucleated Red Blood 0.0 Cells # Sodium Level 142 Potassium Level 3.7 Chloride Level 112 H Carbon Dioxide Level 25 Anion Gap 5 Blood Urea Nitrogen 106 H Creatinine 1.44 H Est Glomerular Filtrat Rate mL/min Glucose Level 97 # Calcium Level 8.1 L Phosphorus Level 3.7 Magnesium Level 2.3 Total Bilirubin 0.2 Direct Bilirubin 0.00 Indirect Bilirubin 0.2 Aspartate Amino 22 Transf (AST/SGOT) Alanine 27 Aminotransferase (ALT/SG PT) Alkaline Phosphatase 71 Total Protein 4.7 L Albumin 2.0 L Globulin 2.70 Albumin/Globulin Ratio 0.74 Vancomycin Level Trough 14.7 Bedside Glucose 107 72 Medications Medication Current Medications Diltiazem HCl (Cardizem) 30 mg Q8 PO Last administered on 08/29/18at 21:47; Admin Dose 30 MG; Start 08/29/18 at 22:00; Status Hold Vancomycin HCl (Vanco Iv Per Pharmacy) VANCOMYCIN PER PHARMACY PER PROTOCOL XX ; Start 08/30/18 at 12:00 Fentanyl 100 ml @ 2.5 mls/hr TITRATE IV Last administered on 09/10/18at 00:41; Admin Dose 10 MLS/HR; Start 08/30/18 at 13:30 Atenolol (Tenormin) 12.5 mg BID NGT Last administered on 09/09/18at 20:53; Admin Dose 12.5 MG; Start 08/30/18 at 21:00 Digoxin (Digoxin) 0.125 mg DAILY@13 NGT Last administered on 09/03/18at 12:59; Admin Dose 0.125 MG; Start 08/30/18 at 13:00; Status Hold Ferrous Sulfate (Feosol Liquid Cup) 300 mg DAILY NGT Last administered on 09/10/18at 08:02; Admin Dose 300 MG; Start 08/31/18 at 09:00 Lansoprazole (Prevacid) 30 mg DAILY@06 NGT Last administered on 09/10/18 06:05; Admin Dose 30 MG; Start 08/31/18 at 06:00 Docusate Sodium (Colace Liquid Cup) 100 mg BID PRN NGT CONSTIPATION Last administered on 08/30/18at 23:46; Admin Dose 100 MG; Start 08/30/18 at 13:30 Midazolam HCl 50 ml @ 1 mls/hr TITRATE IV Last administered on 09/10/18at 07:21; Admin Dose 7 MLS/HR; Start 09/01/18 at 11:00 Meropenem/Sodium Chloride 50 ml @ 100 mls/hr Q12 IVPB Last administered on 09/10 08:02; Admin Dose 100 MLS/HR; Start 09/01/18 at 21:00 Miscellaneous Information 1 ea NOTE XX ; Start 09/01/18 at 15:00 Glucose (Glutose) 15 gm Q15M PRN PO DECREASED GLUCOSE; Start 09/01/18 at 15:00 Glucose (Glutose) 22.5 gm Q15M PRN PO DECREASED GLUCOSE; Start 09/01/18 at 15:00 Dextrose (D50w Syringe) 25 ml Q15M PRN IV DECREASED GLUCOSE; Start 09/01/18 at 15:00 Dextrose (D50w Syringe) 50 ml Q15M PRN IV DECREASED GLUCOSE; Start 09/01/18 at 15:00 Glucagon (Glucagen) 1 mg Q15M PRN IM DECREASED GLUCOSE; Start 09/01/18 at 15:00 Glucose (Glutose) 15 gm Q15M PRN BUCCAL DECREASED GLUCOSE; Start 09/01/18 at 15:00 Insulin Aspart (Novolog Insulin Pen) NOVOLOG *MILD* ALGORI... Q4 SC Last ad ministered on 09/09/18at 13:33; Admin Dose 1 UNIT; Start 09/02/18 at 01:00 Albuterol (Ventolin Hfa) 2 puff Q6H RESP THERAPY INH Last administered on 09/10/18at 08:37; Admin Dose 2 PUFF; Start 09/03/18 at 14:00 Ipratropium Fountain (Atrovent Hfa) 2 puff Q6HWA RESP THERAPY INH Last administered on 09/10/18 08:36; Admin Dose 2 PUFF; Start 09/03/18 at 14:00 Ipratropium Fountain (Atrovent Hfa) 2 puff Q6H RESP THERAPY PRN INH SHORTNESS OF BREATH; Start 09/03/18 at 09:30 Albuterol (Ventolin Hfa) 2 puff Q6H RESP THERAPY PRN INH SHORTNESS OF BREATH; Start 09/03/18 at 09:30 Prednisone (Prednisone) 30 mg DAILY PO Last administered on 09/10/18at 08:02; Admin Dose 30 MG; Start 09/05/18 at 09:00 IV Flush (NS 10 ml) 10 ml PRN PRN IV IV PROTOCOL; Start 09/05/18 at 17:00 Vancomycin HCl 100 ml @ 100 mls/hr Q36H IVPB Last administered on 09/10/18 06:05; Admin Dose 100 MLS/HR; Start 09/07/18 at 06:00 Bisacodyl (Dulcolax Supp) [address] Last administered on 09/09/18at 20:53; Admin Dose 10 MG; Start 09/07/18 at 11:30 CHALO GUADALUPE Sep 10, 2018 10:46
[2018-09-10] MEDS ORDERED: FUROSEMIDE 20 MG INJ IV ONE (11:00)
--- NOTE | 2018-09-10 11:00 | PN ---
Date/Time of Note Date/Time of Note DATE: 09/10/18 TIME: 10:57 Assessment/Plan VTE [place]axis [place] [facility] [place]: 15 [place]CD applied [place] [facility] [place] Yes Pharmacological prophylaxis: NA/contraindicated Pharm contraindication: low risk/ambulating Lines/Catheters IV Catheter Type (from [facility]): PICC Line Central line still needed: Yes Urinary Cath still in place: Yes Reason Cath still needed: urinary retention Assessment/Plan Assessment/Plan 1 Septic shock likely due to sepsis /pneumonia . Off pressors 2. ALOC, lethargic. Now sedated follows commands off sedation 3. Atrial fibrillation, now flutter, controlled 4. Hypoxic respiratory failure. Respiratory acidosis, resolved. Status post intubation on 0 628, now having a hard time weaning due to a lot of secretions 5. Bilateral pneumonia 6. Congestive heart failure, EF 35 to 40%, 7. Hx of right side lung cancer 8. JAMES on chronic kidney disease, creatinine baseline 1.6. With elevated BUN and creatinine ratio likely ATN secondary to septic shock now Cr downtrending however BUN still high, Good UOP 9. Hx of pleural effusions, right and left and numerous thoracentesis. Now left pleural effusion on chest xray 10. Bilateral pleural effusion 11. Hx of hypertension, now on BP support 12. Hyperlipidemia 13 + bacteremia however new bld cx neg 14 Hypernatremia likely hypovolemic , resolved 15. Anemia Assessment/Pl pleasean -Thoracentesis today, resume Eliquis after thoracentesis -Gentle IV Lasix -cr. decreased,montior urine output -skin care -c/w ICU care -Monitor lytes/urine output -DEC pred 30>20 -Scopalamine patch for secretions -pulmonary consult dr Guajardo appreciated -orally intubated 30 % -Cardiology consult dr Hall -With vancomycin/meropenem, -DVT proph. Eliquiz 2.5 mg GT BID -GI proph. Protonix GT ? Not weanabke yet per pulmonary Result Diagram: 09/10/18 0430 09/10/18 0430 Results 24hrs Laboratory Tests Test 09/09/18 13:27 09/09/18 17:24 09/09/18 20:52 09/10/18 00:56 Bedside Glucose 145 128 131 108 Test 09/10/18 04:30 09/10/18 04:31 09/10/18 08:07 White Blood Count 15.6 #H Red Blood Count 2.91 L Hemoglobin 8.0 L Hematocrit 25.0 L Mean Corpuscular Volume 85.9 Mean Corpuscular 27.5 L Hemoglobin Mean Corpuscular 32.0 Hemoglobin Concent Red Cell Distribution 17.2 H Width Platelet Count 319 Mean Platelet Volume 11.1 H Immature Granulocytes % 2.900 H Neutrophils % 77.1 H Lymphocytes % 8.5 L Monocytes % 10.5 Eosinophils % 0.9 Basophils % 0.1 Nucleated Red Blood 0.0 Cells % Immature Granulocytes # 0.450 H Neutrophils # 12.0 H Lymphocytes # 1.3 Monocytes # 1.6 H Eosinophils # 0.1 Basophils # 0.0 Nucleated Red Blood 0.0 Cells # Sodium Level 142 Potassium Level 3.7 Chloride Level 112 H Carbon Dioxide Level 25 Anion Gap 5 Blood Urea Nitrogen 106 H Creatinine 1.44 H Est Glomerular Filtrat Rate mL/min Glucose Level 97 # Calcium Level 8.1 L Phosphorus Level 3.7 Magnesium Level 2.3 Total Bilirubin 0.2 Direct Bilirubin 0.00 Indirect Bilirubin 0.2 Aspartate Amino 22 Transf (AST/SGOT) Alanine 27 Aminotransferase (ALT/SG PT) Alkaline Phosphatase 71 Total Protein 4.7 L Albumin 2.0 L Globulin 2.70 Albumin/Globulin Ratio 0.74 Vancomycin Level Trough 14.7 Bedside Glucose 107 72 Subjective 24 Hr Interval Summary Free Text/Dictation Patient has a lot of secretions. Current clear on fentanyl and Versed Exam/Review of Systems Exam Vitals Vital Signs Date Temp Pulse Resp B/P (MAP) Pulse Ox O2 O2 Flow FiO2 Time Delivery Rate 09/10/18 81 18 102/50 100 08:30 (67) 09/10/18 97.9 Mechanical 08:00 Ventilator 09/10/18 30 08:00 Intake and Output 09/09/18 09/09/18 09/10/18 1515:00 23:00 07:00 IntakeIntake Total 826.5 ml 560 ml 541.0 ml OutputOutput Total 610 ml 400 ml 575 ml BalanceBalance 216.5 ml 160 ml -34.0 ml Exam NG tube with feeding Constitutional: Patient is somewhat sedated however opens his eyes moves all ex tremities Neck: supple Respiratory: diminished breath sounds Cardiovascular: regular rate and rhythm, other (elizabeth) Gastrointestinal: soft, other (yañez) Musculoskeletal: muscle weakness 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: other (sedated with fentanyl) Results Results 24hrs Laboratory Tests Test 09/09/18 13:27 09/09/18 17:24 09/09/18 20:52 09/10/18 00:56 Bedside Glucose 145 128 131 108 Test 09/10/18 04:30 09/10/18 04:31 09/10/18 08:07 White Blood Count 15.6 #H Red Blood Count 2.91 L Hemoglobin 8.0 L Hematocrit 25.0 L Mean Corpuscular Volume 85.9 Mean Corpuscular 27.5 L Hemoglobin Mean Corpuscular 32.0 Hemoglobin Concent Red Cell Distribution 17.2 H Width Platelet Count 319 Mean Platelet Volume 11.1 H Immature Granulocytes % 2.900 H Neutrophils % 77.1 H Lymphocytes % 8.5 L Monocytes % 10.5 Eosinophils % 0.9 Basophils % 0.1 Nucleated Red Blood 0.0 Cells % Immature Granulocytes # 0.450 H Neutrophils # 12.0 H Lymphocytes # 1.3 Monocytes # 1.6 H Eosinophils # 0.1 Basophils # 0.0 Nucleated Red Blood 0.0 Cells # Sodium Level 142 Potassium Level 3.7 Chloride Level 112 H Carbon Dioxide Level 25 Anion Gap 5 Blood Urea Nitrogen 106 H Creatinine 1.44 H Est Glomerular Filtrat Rate mL/min Glucose Level 97 # Calcium Level 8.1 L Phosphorus Level 3.7 Magnesium Level 2.3 Total Bilirubin 0.2 Direct Bilirubin 0.00 Indirect Bilirubin 0.2 Aspartate Amino 22 Transf (AST/SGOT) Alanine 27 Aminotransferase (ALT/SG PT) Alkaline Phosphatase 71 Total Protein 4.7 L Albumin 2.0 L Globulin 2.70 Albumin/Globulin Ratio 0.74 Vancomycin Level Trough 14.7 Bedside Glucose 107 72 Medications Medication Current Medications Diltiazem HCl (Cardizem) 30 mg Q8 PO Last administered on 08/29/18at 21:47; Admin Dose 30 MG; Start 08/29/18 at 22:00; Status Hold Vancomycin HCl (Vanco Iv Per Pharmacy) VANCOMYCIN PER PHARMACY PER PROTOCOL XX ; Start 08/30/18 at 12:00 Fentanyl 100 ml @ 2.5 mls/hr TITRATE IV Last administered on 09/10/18at 00:41; Admin Dose 10 MLS/HR; Start 08/30/18 at 13:30 Atenolol (Tenormin) 12.5 mg BID NGT Last administered on 09/09/18at 20:53; Admin Dose 12.5 MG; Start 08/30/18 at 21:00 Digoxin (Digoxin) 0.125 mg DAILY@13 NGT Last administered on 09/03/18at 12:59; Admin Dose 0.125 MG; Start 08/30/18 at 13:00; Status Hold Ferrous Sulfate (Feosol Liquid Cup) 300 mg DAILY NGT Last administered on 09/10/18at 08:02; Admin Dose 300 MG; Start 08/31/18 at 09:00 Lansoprazole (Prevacid) 30 mg DAILY@06 NGT Last administered on 09/10/18 06:05; Admin Dose 30 MG; Start 08/31/18 at 06:00 Docusate Sodium (Colace Liquid Cup) 100 mg BID PRN NGT CONSTIPATION Last administered on 08/30/18at 23:46; Admin Dose 100 MG; Start 08/30/18 at 13:30 Midazolam HCl 50 ml @ 1 mls/hr TITRATE IV Last administered on 09/10/18at 07:21; Admin Dose 7 MLS/HR; Start 09/01/18 at 11:00 Meropenem/Sodium Chloride 50 ml @ 100 mls/hr Q12 IVPB Last administered on 09/10/18 08:02; Admin Dose 100 MLS/HR; Start 09/01/18 at 21:00 Miscellaneous Information 1 ea NOTE XX ; Start 09/01/18 at 15:00 Glucose (Glutose) 15 gm Q15M PRN PO DECREASED GLUCOSE; Start 09/01/18 at 15:00 Glucose (Glutose) 22.5 gm Q15M PRN PO DECREASED GLUCOSE; Start 09/01/18 at 15:00 Dextrose (D50w Syringe) 25 ml Q15M PRN IV DECREASED GLUCOSE; Start 09/01/18 at 15:00 Dextrose (D50w Syringe) 50 ml Q15M PRN IV DECREASED GLUCOSE; Start 09/01/18 at 15:00 Glucagon (Glucagen) 1 mg Q15M PRN IM DECREASED GLUCOSE; Start 09/01/18 at 15:00 Glucose (Glutose) 15 gm Q15M PRN BUCCAL DECREASED GLUCOSE; Start 09/01/18 at 15:00 Insulin Aspart (Novolog Insulin Pen) NOVOLOG *MILD* ALGORI... Q4 SC Last adm inistered on 09/09/18 13:33; Admin Dose 1 UNIT; Start 09/02/18 at 01:00 Albuterol (Ventolin Hfa) 2 puff Q6H RESP THERAPY INH Last administered on 09/10/18 08:37; Admin Dose 2 PUFF; Start 09/03/18 at 14:00 Ipratropium Ione (Atrovent Hfa) 2 puff Q6HWA RESP THERAPY INH Last administered on 09/10/18 08:36; Admin Dose 2 PUFF; Start 09/03/18 at 14:00 Ipratropium Ione (Atrovent Hfa) 2 puff Q6H RESP THERAPY PRN INH SHORTNESS OF BREATH; Start 09/03/18 at 09:30 Albuterol (Ventolin Hfa) 2 puff Q6H RESP THERAPY PRN INH SHORTNESS OF BREATH; Start 09/03/18 at 09:30 Prednisone (Prednisone) 30 mg DAILY PO Last administered on 09/10/18 08:02; Admin Dose 30 MG; Start 09/05/18 at 09:00 IV Flush (NS 10 ml) 10 ml PRN PRN IV IV PROTOCOL; Start 09/05/18 at 17:00 Vancomycin HCl 100 ml @ 100 mls/hr Q36H IVPB Last administered on 09/10/18 06:05; Admin Dose 100 MLS/HR; Start 09/07/18 at 06:00 Bisacodyl (Dulcolax Supp) 10 mg QHS NM Last administered on 09/09/18 20:53; Admin Dose 10 MG; Start 09/07/18 at 11:30 Acetylcysteine (Mucomyst) 2 ml Q6H RESP THERAPY NEB ; Start 09/10/18 at 14:00 FIDEL GAVIN MD Sep 10, 2018 11:00
[2018-09-10] MEDS: SCOPOLAMINE 1.5 MG PATCH TRANSDERM SCH (11:11)
--- NOTE | 2018-09-10 12:30 | CONS ---
Assessment/Plan Assessment/Plan Hospital Course (Demo Recall) No acute changes patient is lying comfortably in bed intubated in no distress no fevers overnight WBC 15.6 platelets 319 neutrophils 77.1 BUN 106 creatinine 1.44 Ultrasound of the chest this morning revealed small left pleural effusion not enough for thoracentesis Antimicrobials: Vancomycin, Merrem day #10 Indwelling: Endotracheal tube NG tube Bar catheter right femoral triple-lumen catheter Physical examination: Chronically ill appearing wasted elderly man who is intubated sedated in no distress. Head atraumatic normocephalic neck is supple chest rise symmetrical breath sounds diminished bases heart S1-S2 abdomen soft bowel sounds hypoactive extremities without cyanosis Assessment: 1. Severe sepsis on admission status post shock 2. Acute hypoxemic respiratory failure possibly aspiration 3. Multilobar pneumonia 4. COPD 5. History of lung cancer status post radiation, details unknown 6. Atrial fibrillation status post RVR 7. Bacteremia, cw contaminant Plan: Stable, completing antibiotics, continue vent management per pulmonary Consultation Date/Type/Reason Admit Date/Time Aug 29, 2018 at 18:56 Initial Consult Date Type of Consult id Requesting Provider: KARLEY DEAN MD Date/Time of Note DATE: 09/10/18 TIME: 12:29 Exam/Review of Systems Exam Vitals Vital Signs Date Temp Pulse Resp B/P (MAP) Pulse Ox O2 O2 Flow FiO2 Time Delivery Rate 09/10/18 97.6 86 18 105/54 93 Mechanical 12:00 (71) Ventilator 09/10/18 30 11:22 Intake and Output 09/09/18 09/09/18 09/10/18 1515:00 23:00 07:00 IntakeIntake Total 826.5 ml 560 ml 541.0 ml OutputOutput Total 610 ml 400 ml 575 ml BalanceBalance 216.5 ml 160 ml -34.0 ml Results Result Diagram: 09/10/18 0430 09/10/18 0430 Results 24hrs Laboratory Tests Test 09/09/18 13:27 09/09/18 17:24 09/09/18 20:52 09/10/18 00:56 Bedside Glucose 145 128 131 108 Test 09/10/18 04:30 09/10/18 04:31 09/10/18 08:07 09/10/18 12:11 White Blood Count 15.6 #H Red Blood Count 2.91 L Hemoglobin 8.0 L Hematocrit 25.0 L Mean Corpuscular Volume 85.9 Mean Corpuscular 27.5 L Hemoglobin Mean Corpuscular 32.0 Hemoglobin Concent Red Cell Distribution 17.2 H Width Platelet Count 319 Mean Platelet Volume 11.1 H Immature Granulocytes % 2.900 H Neutrophils % 77.1 H Lymphocytes % 8.5 L Monocytes % 10.5 Eosinophils % 0.9 Basophils % 0.1 Nucleated Red Blood 0.0 Cells % Immature Granulocytes # 0.450 H Neutrophils # 12.0 H Lymphocytes # 1.3 Monocytes # 1.6 H Eosinophils # 0.1 Basophils # 0.0 Nucleated Red Blood 0.0 Cells # Sodium Level 142 Potassium Level 3.7 Chloride Level 112 H Carbon Dioxide Level 25 Anion Gap 5 Blood Urea Nitrogen 106 H Creatinine 1.44 H Est Glomerular Filtrat Rate mL/min Glucose Level 97 # Calcium Level 8.1 L Phosphorus Level 3.7 Magnesium Level 2.3 Total Bilirubin 0.2 Direct Bilirubin 0.00 Indirect Bilirubin 0.2 Aspartate Amino 22 Transf (AST/SGOT) Alanine 27 Aminotransferase (ALT/SG PT) Alkaline Phosphatase 71 Total Protein 4.7 L Albumin 2.0 L Globulin 2.70 Albumin/Globulin Ratio 0.74 Vancomycin Level Trough 14.7 Bedside Glucose 107 72 144 Medications Medication Current Medications Diltiazem HCl (Cardizem) 30 mg Q8 PO Last administered on 08/29/18at 21:47; Admin Dose 30 MG; Start 08/29/18 at 22:00; Status Hold Vancomycin HCl (Vanco Iv Per Pharmacy) VANCOMYCIN PER PHARMACY PER PROTOCOL XX ; Start 08/30/18 at 12:00 Fentanyl 100 ml @ 2.5 mls/hr TITRATE IV Last administered on 09/10/18at 11:03; Admin Dose 10 MLS/HR; Start 08/30/18 at 13:30 Atenolol (Tenormin) 12.5 mg BID NGT Last administered on 09/09/18 20:53; Admin Dose 12.5 MG; Start 08/30/18 at 21:00 Digoxin (Digoxin) 0.125 mg DAILY@13 NGT Last administered on 09/03/18 12:59; Admin Dose 0.125 MG; Start 08/30/18 at 13:00; Status Hold Ferrous Sulfate (Feosol Liquid Cup) 300 mg DAILY NGT Last administered on 09/10/18 08:02; Admin Dose 300 MG; Start 08/31/18 at 09:00 Lansoprazole (Prevacid) 30 mg DAILY@06 NGT Last administered on 09/10/18at 06:05; Admin Dose 30 MG; Start 08/31/18 at 06:00 Docusate Sodium (Colace Liquid Cup) 100 mg BID PRN NGT CONSTIPATION Last administered on 08/30/18at 23:46; Admin Dose 100 MG; Start 08/30/18 at 13:30 Midazolam HCl 50 ml @ 1 mls/hr TITRATE IV Last administered on 09/10/18 07:21; Admin Dose 7 MLS/HR; Start 09/01/18 at 11:00 Meropenem/Sodium Chloride 50 ml @ 100 mls/hr Q12 IVPB Last administered on 09/10/18 08:02; Admin Dose 100 MLS/HR; Start 09/01/18 at 21:00 Miscellaneous Information 1 ea NOTE XX ; Start 09/01/18 at 15:00 Glucose (Glutose) 15 gm Q15M PRN PO DECREASED GLUCOSE; Start 09/01/18 at 15:00 Glucose (Glutose) 22.5 gm Q15M PRN PO DECREASED GLUCOSE; Start 09/01/18 at 15:00 Dextrose (D50w Syringe) 25 ml Q15M PRN IV DECREASED GLUCOSE; Start 09/01/18 at 15:00 Dextrose (D50w Syringe) 50 ml Q15M PRN IV DECREASED GLUCOSE; Start 09/01/18 at 15:00 Glucagon (Glucagen) 1 mg Q15M PRN IM DECREASED GLUCOSE; Start 09/01/18 at 15:00 Glucose (Glutose) 15 gm Q15M PRN BUCCAL DECREASED GLUCOSE; Start 09/01/18 at 15:00 Insulin Aspart (Novolog Insulin Pen) NOVOLOG *MILD* ALGORI... Q4 SC Last administered on 09/09/18at 13:33; Admin Dose 1 UNIT; Start 09/02/18 at 01:00 Albuterol (Ventolin Hfa) 2 puff Q6H RESP THERAPY INH Last administered on 09/10/18at 08:37; Admin Dose 2 PUFF; Start 09/03/18 at 14:00 Ipratropium [place] (Atrovent Hfa) 2 puff Q6HWA RESP THERAPY INH Last administered on 09/10/18at 08:36; Admin Dose 2 PUFF; Start 09/03/18 at 14:00 Ipratropium [place] (Atrovent Hfa) 2 puff Q6H RESP THERAPY PRN INH SHORTNESS OF BREATH; Start 09/03/18 at 09:30 Albuterol (Ventolin Hfa) 2 puff Q6H RESP THERAPY PRN INH SHORTNESS OF BREATH; Start 09/03/18 at 09:30 IV Flush (NS 10 ml) 10 ml PRN PRN IV IV PROTOCOL; Start 09/05/18 at 17:00 Vancomycin HCl 100 ml @ 100 mls/hr Q36H IVPB Last administered on 09/10/18at 06:05; Admin Dose 100 MLS/HR; Start 09/07/18 at 06:00 Bisacodyl (Dulcolax Supp) 10 mg QHS [place] Last administered on 09/09/18at 20:53; Admin Dose 10 MG; Start 09/07/18 at 11:30 Acetylcysteine (Mucomyst) 2 ml Q6H RESP THERAPY NEB ; Start 09/10/18 at 14:00 Scopolamine (Transderm-Scop) 1 patch Q72H TRANSDERM Last administered on 09/10/18at 11:11; Admin Dose 1 PATCH; Start 09/10/18 at 11:00 Prednisone (Prednisone) 20 mg DAILY PO ; Start 09/11/18 at 09:00 SUZANNE DANIELS NP Sep 10, 2018 12:30
[2018-09-10] MEDS: ACETYLCYSTEINE 20% 4 ML VIAL NEB SCH ×2 (13:43→19:22)
[2018-09-10] MEDS: BISACODYL 10 MG SUPP PR SCH (20:45)
[2018-09-11] VITALS (46 sets, daily range): BP systolic 94–135; BP diastolic 34–86; PULSE 57–101; RESP 14–34
[2018-09-11] MEDS: INSULIN ASPART [NOVOLOG] 3 ML PEN SC SCH ×6 (00:33→21:02)
[2018-09-11] MEDS: ACETYLCYSTEINE 20% 4 ML VIAL NEB SCH ×4 (02:00→20:00)
[2018-09-11] MEDS: ALBUTEROL HFA 8 GM INHALER INH SCH ×4 (02:00→19:24)
[2018-09-11] MEDS: MIDAZOLAM (DRIP) 50 mg/50 mL 50 ML IV SCH ×3 (02:30→21:20)
[2018-09-11] MEDS: FENTAnyl (DRIP) 1000 mcg/100mL 100 ML IV SCH ×2 (04:33→16:22)
[2018-09-11] MEDS: LANSOPRAZOLE 30 MG CAP NGT SCH (05:58)
[2018-09-11] MEDS: IPRATROPIUM (HFA) 12.9 GM INHALER INH SCH ×3 (07:54→19:24)
[2018-09-11] MEDS: FERROUS SULFATE 60 MG/ML 5ML CUP NGT SCH (08:28)
[2018-09-11] MEDS: MEROPENEM 500MG/50 ML (PMX) 50 ML IVPB SCH (08:28)
[2018-09-11] MEDS: predniSONE 20 MG TAB PO SCH (08:29)
[2018-09-11] MEDS: ATENOLOL 25 MG TAB NGT SCH ×2 (08:29→21:10)
--- NOTE | 2018-09-11 09:25 | CONS ---
Assessment/Plan Assessment/Plan Assessment/Plan (Daily) Ventilator setting; assist control of 18, tidal volume 500, PEEP of 5, 30% FiO2. Ultrasound chest was done yesterday which is not showing significant left pleural effusion to warrant thoracentesis. Patient is off Versed and fentanyl drip for the last few minutes. Assessment recommendations; 1. Patient with history of lung cancer admitted with bilateral pneumonia with left lower lobe predominance, currently on appropriate antimicrobial regimen without any significant clinical improvement since admission. 2. History of chronic renal insufficiency. 3. Hypertension. 4. CHF. 5. Chronic atrial fibrillation. 6. COPD. 7. Significant secretions coming from endotracheal tube. Started on scop olamine patch yesterday. Continue current supportive care. Currently the patient is not wean able from mechanical ventilation. And will likely need to have a tracheostomy performed. Prognosis is poor. Consultation Date/Type/Reason Admit Date/Time Aug 29, 2018 at 18:56 Initial Consult Date Type of Consult Pulmonary/critical care Patient condition is critical. Still intubated. Patient failed a CPAP trial yesterday. Patient however has remained hemodynamically stable. General exam; elderly male, orally intubated, sedated, currently in no distress. Requesting Provider: KARLEY DEAN MD Date/Time of Note DATE: 09/11/18 TIME: 09:22 24 HR Interval Summary Free Text/Dictation Patient's condition remains critical. Patient appears quite agitated now that he is off sedation for the last few minutes. Patient however has remained hemodynamically stable. General exam; elderly male, orally intubated, awake and responsive but appearing agitated. Exam/Review of Systems Exam Vitals Vital Signs Date Temp Pulse Resp B/P (MAP) Pulse Ox O2 O2 Flow FiO2 Time Delivery Rate 09/11/18 101 08:00 09/11/18 34 98 30 07:53 09/11/18 100/44 Mechanical 06:00 (62) Ventilator 09/11/18 98.1 04:00 Intake and Output 09/10/18 09/10/18 09/11/18 1414:59 22:59 06:59 IntakeIntake Total 646 ml 475 ml 747.5 ml OutputOutput Total 620 ml 625 ml 595 ml BalanceBalance 26 ml -150 ml 152.5 ml Exam H EENT exam; supple neck, no JVD. No lymphadenopathy. Midline trachea. No thyromegaly. Patient has fair dentition. Pupils are small bilaterally. Orally intubated. No neck masses. Chest exam; diminished breath sounds throughout. S1-S2 audible, no murmurs. Irregular rhythm. Abdomen exam; soft, no organomegaly. Bowel sounds are audible. Extremity exam; no peripheral edema clubbing. TOBACCO PRIZER exam; patient awake but appears agitated. Results Result Diagram: 09/11/18 0435 09/11/18 0435 Results 24hrs Laboratory Tests Test 09/10/18 12:11 09/10/18 16:24 09/10/18 20:47 09/11/18 00:30 Bedside Glucose 144 188 167 149 Test 09/11/18 04:31 09/11/18 04:35 09/11/18 08:39 Bedside Glucose 118 152 White Blood Count 17.5 H Red Blood Count 3.20 L Hemoglobin 8.9 L Hematocrit 27.5 L Mean Corpuscular 85.9 Volume Mean Corpuscular 27.8 L Hemoglobin Mean Corpuscular 32.4 Hemoglobin Concent Red Cell 17.4 H Distribution Width Platelet Count 357 Mean Platelet Volume 11.0 H Immature 1.400 H Granulocytes % Neutrophils % 85.0 H Lymphocytes % 5.2 L Monocytes % 8.0 Eosinophils % 0.2 Basophils % 0.2 Nucleated Red Blood 0.0 Cells % Immature 0.250 H Granulocytes # Neutrophils # 14.8 H Lymphocytes # 0.9 Monocytes # 1.4 H Eosinophils # 0.0 Basophils # 0.0 Nucleated Red Blood 0.0 Cells # Sodium Level 145 H Potassium Level 4.0 Chloride Level 114 H Carbon Dioxide Level 25 Anion Gap 6 Blood Urea Nitrogen 105 H Creatinine 1.51 H Est Glomerular Filtrat Rate mL/min Glucose Level 137 # Calcium Level 8.4 Phosphorus Level 4.5 Magnesium Level 2.4 Medications Medication Current Medications Diltiazem HCl (Cardizem) 30 mg Q8 PO Last administered on 08/29/18at 21:47; Admin Dose 30 MG; Start 08/29/18 at 22:00; Status Hold Vancomycin HCl (Vanco Iv Per Pharmacy) VANCOMYCIN PER PHARMACY PER PROTOCOL XX ; Start 08/30/18 at 12:00 Fentanyl 100 ml @ 2.5 mls/hr TITRATE IV Last administered on 09/11/18at 04:33; Admin Dose 10 MLS/HR; Start 08/30/18 at 13:30 Atenolol (Tenormin) 12.5 mg BID NGT Last administered on 09/11/18 08:29; Admin Dose 12.5 MG; Start 08/30/18 at 21:00 Digoxin (Digoxin) 0.125 mg DAILY@13 NGT Last administered on 09/03/18 12:59; Admin Dose 0.125 MG; Start 08/30/18 at 13:00; Status Hold Ferrous Sulfate (Feosol Liquid Cup) 300 mg DAILY NGT Last administered on 09/11/18 08:28; Admin Dose 300 MG; Start 08/31/18 at 09:00 Lansoprazole (Prevacid) 30 mg DAILY@06 NGT Last administered on 09/11/18 05:58; Admin Dose 30 MG; Start 08/31/18 at 06:00 Docusate Sodium (Colace Liquid Cup) 100 mg BID PRN NGT CONSTIPATION Last administered on 08/30/18 23:46; Admin Dose 100 MG; Start 08/30/18 at 13:30 Midazolam HCl 50 ml @ 1 mls/hr TITRATE IV Last administered on 09/11/18 02:30; Admin Dose 7 MLS/HR; Start 09/01/18 at 11:00 Meropenem/Sodium Chloride 50 ml @ 100 mls/hr Q12 IVPB Last administered on 09/11/18 08:28; Admin Dose 100 MLS/HR; Start 09/01/18 at 21:00 Miscellaneous Information 1 ea NOTE XX ; Start 09/01/18 at 15:00 Glucose (Glutose) 15 gm Q15M PRN PO DECREASED GLUCOSE; Start 09/01/18 at 15:00 Glucose (Glutose) 22.5 gm Q15M PRN PO DECREASED GLUCOSE; Start 09/01/18 at 15:00 Dextrose (D50w Syringe) 25 ml Q15M PRN IV DECREASED GLUCOSE; Start 09/01/18 at 15:00 Dextrose (D50w Syringe) 50 ml Q15M PRN IV DECREASED GLUCOSE; Start 09/01/18 at 15:00 Glucagon (Glucagen) 1 mg Q15M PRN IM DECREASED GLUCOSE; Start 09/01/18 at 15:00 Glucose (Glutose) 15 gm Q15M PRN BUCCAL DECREASED GLUCOSE; Start 09/01/18 at 15:00 Insulin Aspart (Novolog Insulin Pen) NOVOLOG *MILD* ALGORI... Q4 SC Last administered on 09/11/18 08:44; Admin Dose 1 UNIT; Start 09/02/18 at 01:00 Albuterol (Ventolin Hfa) 2 puff Q6H RESP THERAPY INH Last administered on 09/11/18 07:54; Admin Dose 2 PUFF; Start 09/03/18 at 14:[address] [place]pr[address] [place] (Atrovent Hfa) 2 puff Q6HWA RESP THERAPY INH Last administered on 09/11/18 07:54; Admin Dose 2 PUFF; Start 09/03/18 at 14:[address] [place] (Atrovent Hfa) 2 puff Q6H RESP THERAPY PRN INH SHORTNESS OF BREATH; Start 09/03/18 at 09:30 Albuterol (Ventolin Hfa) 2 puff Q6H RESP THERAPY PRN INH SHORTNESS OF BREATH; Start 09/03/18 at 09:30 IV Flush (NS 10 ml) 10 ml PRN PRN IV IV PROTOCOL; Start 09/05/18 at 17:00 Vancomycin HCl 100 ml @ 100 mls/hr Q36H IVPB Last administered on 09/10/18 06:05; Admin Dose 100 MLS/HR; Start 09/07/18 at 06:00 Bisacodyl (Dulcolax Supp) [address] Last administered on 09/10/18 20:45; Admin Dose 10 MG; Start 09/07/18 at 11:30 Acetylcysteine (Mucomyst) 2 ml Q6H RESP THERAPY NEB Last administered on 09/11/18 07:54; Admin Dose 2 ML; Start 09/10/18 at 14:00 Scopolamine (Transderm-Scop) 1 patch Q72H TRANSDERM Last administered on 09/10/18 11:11; Admin Dose 1 PATCH; Start 09/10/18 at 11:00 Prednisone (Prednisone) 20 mg DAILY PO Last administered on 09/11/18 08:29; Admin Dose 20 MG; Start 09/11/18 at 09:00 ALAN DICKERSON Sep 11, 2018 09:25
--- NOTE | 2018-09-11 10:47 | CONS ---
Assessment/Plan Assessment/Plan Hospital Course (Demo Recall) IMPRESSION: 1. Atrial fibrillation with a rapid ventricular response.-now improved HR control 2. Congestive heart failure exacerbation, diastolic by most recent echo in July 2018 revealing a preserved EF of 65%, acute on chronic by history. 3. Hypertension-well controlled 4. Respiratory distress. 5. Shortness of breath, likely multifactorial secondary to heart failure and chronic obstructive pulmonary disease exacerbation. 6. Probable chronic obstructive pulmonary disease exacerbation. 7. Pneumonia, right lower lobe by chest x-ray, new since discharge, question aspiration. 8. Hypernatremia. 9. Leukocytosis-persistent but decreasing 10. Anemia, mild. 11. Coagulopathy, likely secondary to baseline Eliquis. 12. ARF-some slow improvement REcc: -ICU -Continue current atenolol as tolerated only -holding digoxin and following levels and HR closely -Continue eliquis -Continue abx's and f/u cx data -Continue steroids/bronchodilators -Follow volume status closely and would continue gentle lasix diuresis as tolerated pnly with patient s/p dose yesterday -wean vent as tolerated Consultation Date/Type/Reason Admit Date/Time Aug 29, 2018 at 18:56 Initial Consult Date 08/29/18 Type of Consult Cardiology Reason for Consultation AF Requesting Provider: KARLEY DEAN MD Date/Time of Note DATE: 09/11/18 TIME: 10:37 Exam/Review of Systems Vital Signs Vitals Vital Signs Date Temp Pulse Resp B/P (MAP) Pulse Ox O2 O2 Flow FiO2 Time Delivery Rate 09/11/18 82 18 100 30 09:30 09/11/18 102/53 09:30 (69) 09/11/18 Mechanical 09:00 Ventilator 09/11/18 97.9 08:00 Intake and Output 09/10/18 09/10/18 09/11/18 1515:00 23:00 07:00 IntakeIntake Total 629 ml 492 ml 747.5 ml OutputOutput Total 670 ml 575 ml 620 ml BalanceBalance -41 ml -83 ml 127.5 ml Exam Exam Review of Systems: CONSTITUTIONAL: No fevers, chills. PULMONARY: intubated CARDIOVASCULAR: No chest pain/palpitations GASTROINTESTINAL: No nausea/vomiting. GENITOURINARY: No hematuria/dysuria. MUSCULOSKELETAL: No myagias/arthalgias. PSYCHIATRIC: The patient denies depression. NEUROLOGIC: No weakness Constitutional: other (sedated) Psych: no complaints ENMT: intubated Neck: supple, jvd (9 cm water) Respiratory: diminished breath sounds (at bases/b) Cardiovascular: regular rate and rhythm Gastrointestinal: soft, non-tender Musculoskeletal: muscle tone (normal) Extremities: edema (none) Labs Result Diagram: 09/11/18 0435 09/11/18 0435 Results 24hrs Laboratory Tests Test 09/10/18 12:11 09/10/18 16:24 09/10/18 20:47 09/11/18 00:30 Bedside Glucose 144 188 167 149 Test 09/11/18 04:31 09/11/18 04:35 09/11/18 08:39 Bedside Glucose 118 152 White Blood Count 17.5 H Red Blood Count 3.20 L Hemoglobin 8.9 L Hematocrit 27.5 L Mean Corpuscular 85.9 Volume Mean Corpuscular 27.8 L Hemoglobin Mean Corpuscular 32.4 Hemoglobin Concent Red Cell 17.4 H Distribution Width Platelet Count 357 Mean Platelet Volume 11.0 H Immature 1.400 H Granulocytes % Neutrophils % 85.0 H Lymphocytes % 5.2 L Monocytes % 8.0 Eosinophils % 0.2 Basophils % 0.2 Nucleated Red Blood 0.0 Cells % Immature 0.250 H Granulocytes # Neutrophils # 14.8 H Lymphocytes # 0.9 Monocytes # 1.4 H Eosinophils # 0.0 Basophils # 0.0 Nucleated Red Blood 0.0 Cells # Sodium Level 145 H Potassium Level 4.0 Chloride Level 114 H Carbon Dioxide Level 25 Anion Gap 6 Blood Urea Nitrogen 105 H Creatinine 1.51 H Est Glomerular Filtrat Rate mL/min Glucose Level 137 # Calcium Level 8.4 Phosphorus Level 4.5 Magnesium Level 2.4 Medications Medications Current Medications Diltiazem HCl (Cardizem) 30 mg Q8 PO Last administered on 08/29/18at 21:47; Admin Dose 30 MG; Start 08/29/18 at 22:00; Status Hold Vancomycin HCl (Vanco Iv Per Pharmacy) VANCOMYCIN PER PHARMACY PER PROTOCOL XX ; Start 08/30/18 at 12:00 Fentanyl 100 ml @ 2.5 mls/hr TITRATE IV Last administered on 09/11/18at 04:33; Admin Dose 10 MLS/HR; Start 08/30/18 at 13:30 Atenolol (Tenormin) 12.5 mg BID NGT Last administered on 09/11/18 08:29; Admin Dose 12.5 MG; Start 08/30/18 at 21:00 Digoxin (Digoxin) 0.125 mg DAILY@13 NGT Last administered on 09/03/18 12:59; Admin Dose 0.125 MG; Start 08/30/18 at 13:00; Status Hold Ferrous Sulfate (Feosol Liquid Cup) 300 mg DAILY NGT Last administered on 09/11/18 08:28; Admin Dose 300 MG; Start 08/31/18 at 09:00 Lansoprazole (Prevacid) 30 mg DAILY@06 NGT Last administered on 09/11/18 05:5 8; Admin Dose 30 MG; Start 08/31/18 at 06:00 Docusate Sodium (Colace Liquid Cup) 100 mg BID PRN NGT CONSTIPATION Last administered on 08/30/18 23:46; Admin Dose 100 MG; Start 08/30/18 at 13:30 Midazolam HCl 50 ml @ 1 mls/hr TITRATE IV Last administered on 09/11/18 02:30; Admin Dose 7 MLS/HR; Start 09/01/18 at 11:00 Meropenem/Sodium Chloride 50 ml @ 100 mls/hr Q12 IVPB Last administered on 08:28; Admin Dose 100 MLS/HR; Start 09/01/18 at 21:00 Miscellaneous Information 1 ea NOTE XX ; Start 09/01/18 at 15:00 Glucose (Glutose) 15 gm Q15M PRN PO DECREASED GLUCOSE; Start 09/01/18 at 15:00 Glucose (Glutose) 22.5 gm Q15M PRN PO DECREASED GLUCOSE; Start 09/01/18 at 15:00 Dextrose (D50w Syringe) 25 ml Q15M PRN IV DECREASED GLUCOSE; Start 09/01/18 at 15:00 Dextrose (D50w Syringe) 50 ml Q15M PRN IV DECREASED GLUCOSE; Start 09/01/18 at 15:00 Glucagon (Glucagen) 1 mg Q15M PRN IM DECREASED GLUCOSE; Start 09/01/18 at 15:00 Glucose (Glutose) 15 gm Q15M PRN BUCCAL DECREASED GLUCOSE; Start 09/01/18 at 15:00 Insulin Aspart (Novolog Insulin Pen) NOVOLOG *MILD* ALGORI... Q4 SC Last administered on 09/11/18 08:44; Admin Dose 1 UNIT; Start 09/02/18 at 01:00 Albuterol (Ventolin Hfa) 2 puff Q6H RESP THERAPY INH Last administered on 09/11/18 07:54; Admin Dose 2 PUFF; Start 09/03/18 at 14:00 Ipratropium [place] (Atrovent Hfa) 2 puff Q6HWA RESP THERAPY INH Last administered on 09/11/18 07:54; Admin Dose 2 PUFF; Start 09/03/18 at 14:00 Ipratropium [place] (Atrovent Hfa) 2 puff Q6H RESP THERAPY PRN INH SHORTNESS OF BREATH; Start 09/03/18 at 09:30 Albuterol (Ventolin Hfa) 2 puff Q6H RESP THERAPY PRN INH SHORTNESS OF BREATH; Start 09/03/18 at 09:30 IV Flush (NS 10 ml) 10 ml PRN PRN IV IV PROTOCOL; Start 09/05/18 at 17:00 Vancomycin HCl 100 ml @ 100 mls/hr Q36H IVPB Last administered on 09/10/18 06:05; Admin Dose 100 MLS/HR; Start 09/07/18 at 06:00 Bisacodyl (Dulcolax Supp) 10 mg QHS [place] Last administered on 09/10/18 20:45; Admin Dose 10 MG; Start 09/07/18 at 11:30 Acetylcysteine (Mucomyst) 2 ml Q6H RESP THERAPY NEB Last administered on 09/11/18 07:54; Admin Dose 2 ML; Start 09/10/18 at 14:00 Scopolamine (Transderm-Scop) 1 patch Q72H TRANSDERM Last administered on 11:11; Admin Dose 1 PATCH; Start 09/10/18 at 11:00 Prednisone (Prednisone) 20 mg DAILY PO Last administered on 09/11/18 08:29; Admin Dose 20 MG; Start 09/11/18 at 09:00 CECE LOPEZ Sep 11, 2018 10:47
--- NOTE | 2018-09-11 11:25 | PN ---
Date/Time of Note Date/Time of Note DATE: 09/11/18 TIME: 11:22 Assessment/Plan VTE Prophylaxis Risk score (from [facility] [place])>0 risk: 11 SCD applied (from [facility] [place]): Yes Pharmacological prophylaxis: NA/contraindicated Pharm contraindication: low risk/ambulating Lines/Catheters IV Catheter Type (from [facility]): PICC Line Central line still needed: Yes Urinary Cath still in place: Yes Reason Cath still needed: urinary retention Assessment/Plan Assessment/Plan Assessment/Plan 1 Septic shock likely due to sepsis /pneumonia . Off pressors 2. ALOC, lethargic. Now sedated follows commands off sedation 3. Atrial fibrillation, now flutter, controlled 4. Hypoxic respiratory failure. Respiratory acidosis, resolved. Status post intubation on 0 628, now having a hard time weaning due to a lot of secretions 5. Bilateral pneumonia 6. Congestive heart failure, EF 35 to 40%, 7. Hx of right side lung cancer 8. JAMES on chronic kidney disease, creatinine baseline 1.6. With elevated BUN and creatinine ratio likely ATN secondary to septic shock now Cr downtrending however BUN still high, Good UOP 9. Hx of pleural effusions, right and left and numerous thoracentesis. Now left pleural effusion on chest xray 10. Bilateral pleural effusion 11. Hx of hypertension, now on BP support 12. Hyperlipidemia 13 + bacteremia however new bld cx neg 14 Hypernatremia likely hypovolemic , resolved 15. Anemia Assessment/Pl pleasean --Thoracentesis could not be performed as very less fluid -resume Eliquis -Need to monitor lytes -skin care -c/w ICU care -Monitor lytes/urine output -c w vanco/meropenam + wbc 17 -cw pred 20 -Scopalamine patch for secretions -pulmonary consult dr Guajardo appreciated -orally intubated 30 % -Cardiology consult dr Hall -With vancomycin/meropenem, -DVT proph. Eliquiz 5 mg GT BID -GI proph. Protonix GT ? Not weanabke yet per pulmonary, will follow with pulmonary recommendations if not able to come out of the ventilator questionable trach versus terminal extubation Result Diagram: 09/11/18 0435 09/11/18 0435 Results 24hrs Laboratory Tests Test 09/10/18 12:11 09/10/18 16:24 09/10/18 20:47 09/11/18 00:30 Bedside Glucose 144 188 167 149 Test 09/11/18 04:31 09/11/18 04:35 09/11/18 08:39 Bedside Glucose 118 152 White Blood Count 17.5 H Red Blood Count 3.20 L Hemoglobin 8.9 L Hematocrit 27.5 L Mean Corpuscular 85.9 Volume Mean Corpuscular 27.8 L Hemoglobin Mean Corpuscular 32.4 Hemoglobin Concent Red Cell 17.4 H Distribution Width Platelet Count 357 Mean Platelet Volume 11.0 H Immature 1.400 H Granulocytes % Neutrophils % 85.0 H Lymphocytes % 5.2 L Monocytes % 8.0 Eosinophils % 0.2 Basophils % 0.2 Nucleated Red Blood 0.0 Cells % Immature 0.250 H Granulocytes # Neutrophils # 14.8 H Lymphocytes # 0.9 Monocytes # 1.4 H Eosinophils # 0.0 Basophils # 0.0 Nucleated Red Blood 0.0 Cells # Sodium Level 145 H Potassium Level 4.0 Chloride Level 114 H Carbon Dioxide Level 25 Anion Gap 6 Blood Urea Nitrogen 105 H Creatinine 1.51 H Est Glomerular Filtrat Rate mL/min Glucose Level 137 # Calcium Level 8.4 Phosphorus Level 4.5 Magnesium Level 2.4 Subjective 24 Hr Interval Summary Free Text/Dictation Patient continues to have a lot of secretions FiO2 30% Quite well agitated when comes off sedation Exam/Review of Systems Exam Vitals Vital Signs Date Temp Pulse Resp B/P (MAP) Pulse Ox O2 O2 Flow FiO2 Time Delivery Rate 09/11/18 82 18 100 30 09:30 09/11/18 102/53 09:30 (69) 09/11/18 Mechanical 09:00 Ventilator 09/11/18 97.9 08:00 Intake and Output 09/10/18 09/10/18 09/11/18 1515:00 23:00 07:00 IntakeIntake Total 629 ml 492 ml 747.5 ml OutputOutput Total 670 ml 575 ml 620 ml BalanceBalance -41 ml -83 ml 127.5 ml Exam NG tube with feeding Constitutional: Patient is somewhat sedated however opens his eyes moves all extremities when of fsedation Neck: supple Respiratory: diminished breath sounds Cardiovascular: regular rate and rhythm, other (elizabeth) Gastrointestinal: soft, other (yañez) Musculoskeletal: muscle weakness 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: other (sedated with fentanyl) Results Results 24hrs Laboratory Tests Test 09/10/18 12:11 09/10/18 16:24 09/10/18 20:47 09/11/18 00:30 Bedside Glucose 144 188 167 149 Test 09/11/18 04:31 09/11/18 04:35 09/11/18 08:39 Bedside Glucose 118 152 White Blood Count 17.5 H Red Blood Count 3.20 L Hemoglobin 8.9 L Hematocrit 27.5 L Mean Corpuscular 85.9 Volume Mean Corpuscular 27.8 L Hemoglobin Mean Corpuscular 32.4 Hemoglobin Concent Red Cell 17.4 H Distribution Width Platelet Count 357 Mean Platelet Volume 11.0 H Immature 1.400 H Granulocytes % Neutrophils % 85.0 H Lymphocytes % 5.2 L Monocytes % 8.0 Eosinophils % 0.2 Basophils % 0.2 Nucleated Red Blood 0.0 Cells % Immature 0.250 H Granulocytes # Neutrophils # 14.8 H Lymphocytes # 0.9 Monocytes # 1.4 H Eosinophils # 0.0 Basophils # 0.0 Nucleated Red Blood 0.0 Cells # Sodium Level 145 H Potassium Level 4.0 Chloride Level 114 H Carbon Dioxide Level 25 Anion Gap 6 Blood Urea Nitrogen 105 H Creatinine 1.51 H Est Glomerular Filtrat Rate mL/min Glucose Level 137 # Calcium Level 8.4 Phosphorus Level 4.5 Magnesium Level 2.4 Medications Medication Current Medications Diltiazem HCl (Cardizem) 30 mg Q8 PO Last administered on 08/29/18at 21:47; Admin Dose 30 MG; Start 08/29/18 at 22:00; Status Hold Vancomycin HCl (Vanco Iv Per Pharmacy) VANCOMYCIN PER PHARMACY PER PROTOCOL XX ; Start 08/30/18 at 12:00 Fentanyl 100 ml @ 2.5 mls/hr TITRATE IV Last administered on 09/11/18at 04:33; Admin Dose 10 MLS/HR; Start 08/30/18 at 13:30 Atenolol (Tenormin) 12.5 mg BID NGT Last administered on 09/11/18at 08:29; Admin Dose 12.5 MG; Start 08/30/18 at 21:00 Digoxin (Digoxin) 0.125 mg DAILY@13 NGT Last administered on 09/03/18at 12:59; Admin Dose 0.125 MG; Start 08/30/18 at 13:00; Status Hold Ferrous Sulfate (Feosol Liquid Cup) 300 mg DAILY NGT Last administered on 09/11/18 08:28; Admin Dose 300 MG; Start 08/31/18 at 09:00 Lansoprazole (Prevacid) 30 mg DAILY@06 NGT Last administered on 09/11/18 05:58; Admin Dose 30 MG; Start 08/31/18 at 06:00 Docusate Sodium (Colace Liquid Cup) 100 mg BID PRN NGT CONSTIPATION Last administered on 08/30/18 23:46; Admin Dose 100 MG; Start 08/30/18 at 13:30 Midazolam HCl 50 ml @ 1 mls/hr TITRATE IV Last administered on 09/11/18 02:30; Admin Dose 7 MLS/HR; Start 09/01/18 at 11:00 Meropenem/Sodium Chloride 50 ml @ 100 mls/hr Q12 IVPB Last administered on 09/11/18 08:28; Admin Dose 100 MLS/HR; Start 09/01/18 at 21:00 Miscellaneous Information 1 ea NOTE XX ; Start 09/01/18 at 15:00 Glucose (Glutose) 15 gm Q15M PRN PO DECREASED GLUCOSE; Start 09/01/18 at 15:00 Glucose (Glutose) 22.5 gm Q15M PRN PO DECREASED GLUCOSE; Start 09/01/18 at 15:00 Dextrose (D50w Syringe) 25 ml Q15M PRN IV DECREASED GLUCOSE; Start 09/01/18 at 15:00 Dextrose (D50w Syringe) 50 ml Q15M PRN IV DECREASED GLUCOSE; Start 09/01/18 at 15:00 Glucagon (Glucagen) 1 mg Q15M PRN IM DECREASED GLUCOSE; Start 09/01/18 at 15:00 Glucose (Glutose) 15 gm Q15M PRN BUCCAL DECREASED GLUCOSE; Start 09/01/18 at 15:00 Insulin Aspart (Novolog Insulin Pen) NOVOLOG *MILD* ALGORI... Q4 SC Last administered on 09/11/18 08:44; Admin Dose 1 UNIT; Start 09/02/18 at 01:00 Albuterol (Ventolin Hfa) 2 puff Q6H RESP THERAPY INH Last administered on 09/11/18 07:54; Admin Dose 2 PUFF; Start 09/03/18 at 14:00 Ipratropium [place] (Atrovent Hfa) 2 puff Q6HWA RESP THERAPY INH Last administered on 09/11/18 07:54; Admin Dose 2 PUFF; Start 09/03/18 at 14:00 Ipratropium [place] (Atrovent Hfa) 2 puff Q6H RESP THERAPY PRN INH SHORTNESS OF BREATH; Start 09/03/18 at 09:30 Albuterol (Ventolin Hfa) 2 puff Q6H RESP THERAPY PRN INH SHORTNESS OF BREATH; Start 09/03/18 at 09:30 IV Flush (NS 10 ml) 10 ml PRN PRN IV IV PROTOCOL; Start 09/05/18 at 17:00 Vancomycin HCl 100 ml @ 100 mls/hr Q36H IVPB Last administered on 09/10/18 06:05; Admin Dose 100 MLS/HR; Start 09/07/18 at 06:00 Bisacodyl (Dulcolax Supp) 10 mg QHS [place] Last administered on 09/10/18at 20:45; Admin Dose 10 MG; Start 09/07/18 at 11:30 Acetylcysteine (Mucomyst) 2 ml Q6H RESP THERAPY NEB Last administered on 09/11/18at 07:54; Admin Dose 2 ML; Start 09/10/18 at 14:00 Scopolamine (Transderm-Scop) 1 patch Q72H TRANSDERM Last administered on 09/10/18at 11:11; Admin Dose 1 PATCH; Start 09/10/18 at 11:00 Prednisone (Prednisone) 20 mg DAILY PO Last administered on 09/11/18 08:29; Admin Dose 20 MG; Start 09/11/18 at 09:00 FIDEL GAVIN MD Sep 11, 2018 11:25
--- NOTE | 2018-09-11 12:21 | CONS ---
Assessment/Plan Assessment/Plan Hospital Course (Demo Recall) No acute changes patient remains intubated in no distress afebrile WBC 17.5 neutrophils 85 BUN 105 creatinine 1.51 Antimicrobials: Vancomycin, Merrem day #11 Indwelling: Endotracheal tube NG tube Bar catheter right femoral triple-lumen catheter Physical examination: Chronically ill appearing wasted elderly man who is intubated sedated in no distress. Head atraumatic normocephalic neck is supple chest rise symmetrical breath sounds diminished bases heart S1-S2 abdomen soft bowel sounds hypoactive extremities without cyanosis Assessment: 1. Severe sepsis on admission status post shock 2. Acute hypoxemic respiratory failure possibly aspiration 3. Multilobar pneumonia 4. COPD 5. History of lung cancer status post radiation, details unknown 6. Atrial fibrillation status post RVR 7. Bacteremia, cw contaminant Plan: Remains unchanged, completed antibiotics, continue vent management per pulmonary Consultation Date/Type/Reason Admit Date/Time Aug 29, 2018 at 18:56 Initial Consult Date Type of Consult id Requesting Provider: KARLEY DEAN MD Date/Time of Note DATE: 09/11/18 TIME: 12:20 Exam/Review of Systems Exam Vitals Vital Signs Date Temp Pulse Resp B/P (MAP) Pulse Ox O2 O2 Flow FiO2 Time Delivery Rate 09/11/18 82 18 100 30 09:30 09/11/18 102/53 09:30 (69) 09/11/18 Mechanical 09:00 Ventilator 09/11/18 97.9 08:00 Intake and Output 09/10/18 09/10/18 09/11/18 1515:00 23:00 07:00 IntakeIntake Total 629 ml 492 ml 747.5 ml OutputOutput Total 670 ml 575 ml 620 ml BalanceBalance -41 ml -83 ml 127.5 ml Results Result Diagram: 09/11/18 0435 09/11/18 0435 Results 24hrs Laboratory Tests Test 09/10/18 16:24 09/10/18 20:47 09/11/18 00:30 09/11/18 04:31 Bedside Glucose 188 167 149 118 Test 09/11/18 04:35 09/11/18 08:39 White Blood Count 17.5 H Red Blood Count 3.20 L Hemoglobin 8.9 L Hematocrit 27.5 L Mean Corpuscular 85.9 Volume Mean Corpuscular 27.8 L Hemoglobin Mean Corpuscular 32.4 Hemoglobin Concent Red Cell 17.4 H Distribution Width Platelet Count 357 Mean Platelet Volume 11.0 H Immature 1.400 H Granulocytes % Neutrophils % 85.0 H Lymphocytes % 5.2 L Monocytes % 8.0 Eosinophils % 0.2 Basophils % 0.2 Nucleated Red Blood 0.0 Cells % Immature 0.250 H Granulocytes # Neutrophils # 14.8 H Lymphocytes # 0.9 Monocytes # 1.4 H Eosinophils # 0.0 Basophils # 0.0 Nucleated Red Blood 0.0 Cells # Sodium Level 145 H Potassium Level 4.0 Chloride Level 114 H Carbon Dioxide Level 25 Anion Gap 6 Blood Urea Nitrogen 105 H Creatinine 1.51 H Est Glomerular Filtrat Rate mL/min Glucose Level 137 # Calcium Level 8.4 Phosphorus Level 4.5 Magnesium Level 2.4 Bedside Glucose 152 Medications Medication Current Medications Diltiazem HCl (Cardizem) 30 mg Q8 PO Last administered on 08/29/18 21:47; Admin Dose 30 MG; Start 08/29/18 at 22:00; Status Hold Vancomycin HCl (Vanco Iv Per Pharmacy) VANCOMYCIN PER PHARMACY PER PROTOCOL XX ; Start 08/30/18 at 12:00 Fentanyl 100 ml @ 2.5 mls/hr TITRATE IV Last administered on 09/11/18 04:33; Admin Dose 10 MLS/HR; Start 08/30/18 at 13:30 Atenolol (Tenormin) 12.5 mg BID NGT Last administered on 09/11/18 08:29; Admin Dose 12.5 MG; Start 08/30/18 at 21:00 Digoxin (Digoxin) 0.125 mg DAILY@13 NGT Last administered on 09/03/18 12:59; Admin Dose 0.125 MG; Start 08/30/18 at 13:00; Status Hold Ferrous Sulfate (Feosol Liquid Cup) 300 mg DAILY NGT Last administered on 09/11/18 08:28; Admin Dose 300 MG; Start 08/31/18 at 09:00 Lansoprazole (Prevacid) 30 mg DAILY@06 NGT Last administered on 09/11/18 05:58; Admin Dose 30 MG; Start 08/31/18 at 06:00 Docusate Sodium (Colace Liquid Cup) 100 mg BID PRN NGT CONSTIPATION Last administered on 6/28/19at 23:46; Admin Dose 100 MG; Start 08/30/18 at 13:30 Midazolam HCl 50 ml @ 1 mls/hr TITRATE IV Last administered on 09/11/18at 02:30; Admin Dose 7 MLS/HR; Start 09/01/18 at 11:00 Meropenem/Sodium Chloride 50 ml @ 100 mls/hr Q12 IVPB Last administered on 09/11/18at 08:28; Admin Dose 100 MLS/HR; Start 09/01/18 at 21:00 Miscellaneous Information 1 ea NOTE XX ; Start 09/01/18 at 15:00 Glucose (Glutose) 15 gm Q15M PRN PO DECREASED GLUCOSE; Start 09/01/18 at 15:00 Glucose (Glutose) 22.5 gm Q15M PRN PO DECREASED GLUCOSE; Start 09/01/18 at 15:00 Dextrose (D50w Syringe) 25 ml Q15M PRN IV DECREASED GLUCOSE; Start 09/01/18 at 15:00 Dextrose (D50w Syringe) 50 ml Q15M PRN IV DECREASED GLUCOSE; Start 09/01/18 at 15:00 Glucagon (Glucagen) 1 mg Q15M PRN IM DECREASED GLUCOSE; Start 09/01/18 at 15:00 Glucose (Glutose) 15 gm Q15M PRN BUCCAL DECREASED GLUCOSE; Start 09/01/18 at 15:00 Insulin Aspart (Novolog Insulin Pen) NOVOLOG *MILD* ALGORI... Q4 [place] Last ad ministered on 09/11/18at 08:44; Admin Dose 1 UNIT; Start 09/02/18 at 01:00 Albuterol (Ventolin Hfa) 2 puff Q6H RESP THERAPY INH Last administered on 09/11/18at 07:54; Admin Dose 2 PUFF; Start 09/03/18 at 14:00 Ipratropium [place] (Atrovent Hfa) 2 puff Q6HWA RESP THERAPY INH Last administered on 09/11/18at 07:54; Admin Dose 2 PUFF; Start 09/03/18 at 14:00 Ipratropium [place] (Atrovent Hfa) 2 puff Q6H RESP THERAPY PRN INH SHORTNESS OF BREATH; Start 09/03/18 at 09:30 Albuterol (Ventolin Hfa) 2 puff Q6H RESP THERAPY PRN INH SHORTNESS OF BREATH; Start 09/03/18 at 09:30 IV Flush (NS 10 ml) 10 ml PRN PRN IV IV PROTOCOL; Start 09/05/18 at 17:00 Vancomycin HCl 100 ml @ 100 mls/hr Q36H IVPB Last administered on 09/10/18at 06:05; Admin Dose 100 MLS/HR; Start 09/07/18 at 06:00 Bisacodyl (Dulcolax Supp) 10 mg QHS [place] Last administered on 09/10/18at 20:45; Admin Dose 10 MG; Start 09/07/18 at 11:30 Acetylcysteine (Mucomyst) 2 ml Q6H RESP THERAPY NEB Last administered on 09/11/18at 07:54; Admin Dose 2 ML; Start 09/10/18 at 14:00 Scopolamine (Transderm-Scop) 1 patch Q72H TRANSDERM Last administered on 09/10at 11:11; Admin Dose 1 PATCH; Start 09/10/18 at 11:00 Prednisone (Prednisone) 20 mg DAILY PO Last administered on 09/11/18at 08:29; Admin Dose 20 MG; Start 09/11/18 at 09:00 Apixaban (Eliquis) 2.5 mg BID PO ; Start 09/11/18 at 12:00 SUZANNE DANIELS NP Sep 11, 2018 12:21
[2018-09-11] MEDS: APIXABAN 5 MG TABLET PO SCH ×2 (12:31→21:05)
[2018-09-11] MEDS: BISACODYL 10 MG SUPP PR SCH (20:57)
[2018-09-11] MEDS ORDERED: APIXABAN 5 MG TABLET PO SCH (21:00)
[2018-09-12] VITALS (72 sets, daily range): BP systolic 87–156; BP diastolic 33–100; PULSE 35–148; RESP 13–31
[2018-09-12] MEDS: INSULIN ASPART [NOVOLOG] 3 ML PEN SC SCH ×6 (00:55→21:28)
[2018-09-12] MEDS: FENTAnyl (DRIP) 1000 mcg/100mL 100 ML IV SCH ×3 (01:00→21:28)
[2018-09-12] MEDS: ALBUTEROL HFA 8 GM INHALER INH SCH ×4 (01:32→20:44)
[2018-09-12] MEDS: ACETYLCYSTEINE 20% 4 ML VIAL NEB SCH ×4 (01:32→20:45)
[2018-09-12] MEDS: MIDAZOLAM (DRIP) 50 mg/50 mL 50 ML IV SCH ×3 (04:14→22:15)
[2018-09-12] MEDS: LANSOPRAZOLE 30 MG CAP NGT SCH (05:20)
[2018-09-12] MEDS: APIXABAN 5 MG TABLET PO SCH ×2 (08:13→21:21)
[2018-09-12] MEDS: FERROUS SULFATE 60 MG/ML 5ML CUP NGT SCH (08:13)
[2018-09-12] MEDS: predniSONE 20 MG TAB PO SCH (08:13)
[2018-09-12] MEDS: ATENOLOL 25 MG TAB NGT SCH ×2 (08:14→21:21)
--- NOTE | 2018-09-12 09:33 | CONS ---
Assessment/Plan Assessment/Plan Assessment/Plan (Daily) Ventilator setting; assist control of 18, tidal volume 500, PEEP of 5, 30% FiO2. Patient has been on Versed currently on hold to assess mental status. Assessment and recommendations; 1. Patient admitted with respiratory failure due to bilateral pneumonia with history of lung cancer. 2. Encephalopathy. 3. Anemia. 4. Chronic renal insufficiency. 5. Chronic atrial fibrillation. 6. Hypertension. 7. COPD. 8. Gram-positive bacteremia. Continue current supportive care. Patient's friend who apparently has D POA is not in favor of tracheostomy. Patient's prognosis appears very poor. Palli ative care should be considered. Consultation Date/Type/Reason Admit Date/Time Aug 29, 2018 at 18:56 Initial Consult Date Type of Consult Pulmonary/critical care Patient condition is critical. Still intubated. Patient failed a CPAP trial yesterday. Patient however has remained hemodynamically stable. General exam; elderly male, orally intubated, sedated, currently in no distress. Requesting Provider: KARLEY DEAN MD Date/Time of Note DATE: 09/12/18 TIME: 09:28 24 HR Interval Summary Free Text/Dictation Patient's condition remains critical. Of sedation patient becomes very agitated. Patient however has remained hemodynamically stable. Exhibiting stable atrial fibrillation. General exam; elderly male, agitated. Orally intubated. Mildly tachypneic. Exam/Review of Systems Exam Vitals Vital Signs Date Temp Pulse Resp B/P (MAP) Pulse Ox O2 O2 Flow FiO2 Time Delivery Rate 09/12/18 65 18 99 30 07:55 09/12/18 139/48 Mechanical 06:00 (78) Ventilator 09/12/18 96.7 04:00 Intake and Output 09/11/18 09/11/18 09/12/18 1515:00 23:00 07:00 IntakeIntake Total 499 ml 712.5 ml 894 ml OutputOutput Total 580 ml 520 ml 395 ml BalanceBalance -81 ml 192.5 ml 499 ml Exam H EENT exam; supple neck, no JVD. No lymphadenopathy. Midline trachea. No thyromegaly. Patient has fair dentition. Orally intubated. Orogastric tube in place. Chest exam; diminished breath sounds bilaterally. S1-S2 audible, no murmurs. Irregular rhythm. Abdomen exam; soft, no organomegaly. Bowel sounds are audible. Extremity exam; no edema. [employer] exam; patient is agitated. Does not follow any commands. Results Result Diagram: 09/12/18 0355 09/12/18 0355 Results 24hrs Laboratory Tests Test 09/11/18 12:30 09/11/18 17:09 09/11/18 20:56 09/12/18 00:55 Bedside Glucose 117 161 186 131 Test 09/12/18 03:55 09/12/18 05:19 09/12/18 08:12 White Blood Count 13.3 #H Red Blood Count 2.70 L Hemoglobin 7.5 L Hematocrit 23.0 L Mean Corpuscular 85.2 Volume Mean Corpuscular 27.8 L Hemoglobin Mean Corpuscular 32.6 Hemoglobin Concent Red Cell 17.4 H Distribution Width Platelet Count 322 Mean Platelet Volume 11.4 H Immature 1.200 H Granulocytes % Neutrophils % 79.3 H Lymphocytes % 8.6 L Monocytes % 10.2 Eosinophils % 0.5 Basophils % 0.2 Nucleated Red Blood 0.0 Cells % Immature 0.160 H Granulocytes # Neutrophils # 10.6 H Lymphocytes # 1.1 Monocytes # 1.4 H Eosinophils # 0.1 Basophils # 0.0 Nucleated Red Blood 0.0 Cells # Sodium Level 147 H Potassium Level 3.4 L Chloride Level 116 H Carbon Dioxide Level 25 Anion Gap 6 Blood Urea Nitrogen 100 H Creatinine 1.41 H Est Glomerular Filtrat Rate mL/min Glucose Level 133 Calcium Level 8.1 L Bedside Glucose 132 114 Medications Medication Current Medications Diltiazem HCl (Cardizem) 30 mg Q8 PO Last administered on 08/29/18at 21:47; Admin Dose 30 MG; Start 08/29/18 at 22:00; Status Hold Fentanyl 100 ml @ 2.5 mls/hr TITRATE IV Last administered on 09/12/18at 01:00; Admin Dose 10 MLS/HR; Start 08/30/18 at 13:30 Atenolol (Tenormin) 12.5 mg BID NGT Last administered on 09/12/18at 08:14; Admin Dose 12.5 MG; Start 08/30/18 at 21:00 Digoxin (Digoxin) 0.125 mg DAILY@13 NGT Last administered on 09/03/18at 12:59; Admin Dose 0.125 MG; Start 08/30/18 at 13:00; Status Hold Ferrous Sulfate (Feosol Liquid Cup) 300 mg DAILY NGT Last administered on 09/12/18at 08:13; Admin Dose 300 MG; Start 08/31/18 at 09:00 Lansoprazole (Prevacid) 30 mg DAILY@06 NGT Last administered on 09/12/18 05:20; Admin Dose 30 MG; Start 08/31/18 at 06:00 Docusate Sodium (Colace Liquid Cup) 100 mg BID PRN NGT CONSTIPATION Last administered on 08/30/18at 23:46; Admin Dose 100 MG; Start 08/30/18 at 13:30 Midazolam HCl 50 ml @ 1 mls/hr TITRATE IV Last administered on 09/12/18 04:14; Admin Dose 8 MLS/HR; Start 09/01/18 at 11:00 Miscellaneous Information 1 ea NOTE XX ; Start 09/01/18 at 15:00 Glucose (Glutose) 15 gm Q15M PRN PO DECREASED GLUCOSE; Start 09/01/18 at 15:00 Glucose (Glutose) 22.5 gm Q15M PRN PO DECREASED GLUCOSE; Start 09/01/18 at 15:00 Dextrose (D50w Syringe) 25 ml Q15M PRN IV DECREASED GLUCOSE; Start 09/01/18 at 15:00 Dextrose (D50w Syringe) 50 ml Q15M PRN IV DECREASED GLUCOSE; Start 09/01/18 at 15:00 Glucagon (Glucagen) 1 mg Q15M PRN IM DECREASED GLUCOSE; Start 09/01/18 at 15:00 Glucose (Glutose) 15 gm Q15M PRN BUCCAL DECREASED GLUCOSE; Start 09/01/18 at 15:00 Insulin Aspart (Novolog Insulin Pen) NOVOLOG *MILD* ALGORI... Q4 [place] Last administered on 09/11/18at 21:02; Admin Dose 2 UNIT; Start 09/02/18 at 01:00 Albuterol (Ventolin Hfa) 2 puff Q6H RESP THERAPY INH Last administered on 09/12/18at 01:32; Admin Dose 2 PUFF; Start 09/03/18 at 14:00 Ipratropium [place] (Atrovent Hfa) 2 puff Q6HWA RESP THERAPY INH Last administered on 09/11/18at 19:24; Admin Dose 2 PUFF; Start 09/03/18 at 14:00 Ipratropium [place] (Atrovent Hfa) 2 puff Q6H RESP THERAPY PRN INH SHORTNESS OF BREATH; Start 09/03/18 at 09:30 Albuterol (Ventolin Hfa) 2 puff Q6H RESP THERAPY PRN INH SHORTNESS OF BREATH; Start 09/03/18 at 09:30 IV Flush (NS 10 ml) 10 ml PRN PRN IV IV PROTOCOL; Start 09/05/18 at 17:00 Bisacodyl (Dulcolax Supp) 10 mg QHS [place] Last administered on 09/11/18at 20:57; Admin Dose 10 MG; Start 09/07/18 at 11:30 Acetylcysteine (Mucomyst) 2 ml Q6H RESP THERAPY NEB Last administered on 09/12/18at 01:32; Admin Dose 2 ML; Start 09/10/18 at 14:00 Scopolamine (Transderm-Scop) 1 patch Q72H TRANSDERM Last administered on 09/10/18at 11:11; Admin Dose 1 PATCH; Start 09/10/18 at 11:00 Prednisone (Prednisone) 20 mg DAILY PO Last administered on 09/12/18 08:13; Admin Dose 20 MG; Start 09/11/18 at 09:00 Apixaban (Eliquis) 2.5 mg BID PO Last administered on 09/12/18 08:13; Admin Dose 2.5 MG; Start 09/11/18 at 12:00 ALAN DICKERSON Sep 12, 2018 09:33
[2018-09-12] MEDS: IPRATROPIUM (HFA) 12.9 GM INHALER INH SCH ×3 (09:49→20:44)
--- NOTE | 2018-09-12 12:09 | CONS ---
Assessment/Plan Assessment/Plan Hospital Course (Demo Recall) IMPRESSION: 1. Atrial fibrillation with a rapid ventricular response.-now improved HR control 2. Congestive heart failure exacerbation, diastolic by most recent echo in July 2018 revealing a preserved EF of 65%, acute on chronic by history. 3. Hypertension-well controlled 4. Respiratory distress. 5. Shortness of breath, likely multifactorial secondary to heart failure and chronic obstructive pulmonary disease exacerbation. 6. Probable chronic obstructive pulmonary disease exacerbation. 7. Pneumonia, right lower lobe by chest x-ray, new since discharge, question aspiration. 8. Hypernatremia. 9. Leukocytosis-persistent but decreasing 10. Anemia, mild. 11. Coagulopathy, likely secondary to baseline Eliquis. 12. ARF-some slow improvement REcc: -ICU -Continue current atenolol as tolerated only -holding digoxin and following levels and HR closely -Continue eliquis -Continue abx's and f/u cx data -Continue steroids/bronchodilators -Follow volume status closely and would continue gentle lasix diuresis as tolerated and thus will give dose now -wean vent as tolerated Consultation Date/Type/Reason Admit Date/Time Aug 29, 2018 at 18:56 Initial Consult Date 08/29/18 Type of Consult Cardiology Reason for Consultation AF Requesting Provider: KARLEY DEAN MD Date/Time of Note DATE: 09/12/18 TIME: 12:07 Exam/Review of Systems Vital Signs Vitals Vital Signs Date Temp Pulse Resp B/P (MAP) Pulse Ox O2 O2 Flow FiO2 Time Delivery Rate 09/12/18 66 18 100 30 11:23 09/12/18 105/38 11:15 (60) 09/12/18 Mechanical 11:00 Ventilator 09/12/18 97.6 08:00 Intake and Output 09/11/18 09/11/18 09/12/18 1515:00 23:00 07:00 IntakeIntake Total 499 ml 712.5 ml 952 ml OutputOutput Total 580 ml 520 ml 450 ml BalanceBalance -81 ml 192.5 ml 502 ml Exam Exam Review of Systems: CONSTITUTIONAL: No fevers, chills. PULMONARY: intubated CARDIOVASCULAR: No chest pain/palpitations GASTROINTESTINAL: No nausea/vomiting. GENITOURINARY: No hematuria/dysuria. MUSCULOSKELETAL: No obvious myagias/arthalgias. PSYCHIATRIC: no documented depression. NEUROLOGIC:sedated Constitutional: other (sedated) Psych: no complaints ENMT: intubated Neck: supple, jvd (9 cm water) Respiratory: diminished breath sounds (at bases/B) Cardiovascular: regular rate and rhythm Gastrointestinal: soft, non-tender Musculoskeletal: muscle tone (normal) Extremities: edema (none) 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: other (No focal deficits) Labs Result Diagram: 09/12/18 0355 09/12/18 0355 Results 24hrs Laboratory Tests Test 09/11/18 12:30 09/11/18 17:09 09/11/18 20:56 09/12/18 00:55 Bedside Glucose 117 161 186 131 Test 09/12/18 03:55 09/12/18 05:19 09/12/18 08:12 White Blood Count 13.3 #H Red Blood Count 2.70 L Hemoglobin 7.5 L Hematocrit 23.0 L Mean Corpuscular 85.2 Volume Mean Corpuscular 27.8 L Hemoglobin Mean Corpuscular 32.6 Hemoglobin Concent Red Cell 17.4 H Distribution Width Platelet Count 322 Mean Platelet Volume 11.4 H Immature 1.200 H Granulocytes % Neutrophils % 79.3 H Lymphocytes % 8.6 L Monocytes % 10.2 Eosinophils % 0.5 Basophils % 0.2 Nucleated Red Blood 0.0 Cells % Immature 0.160 H Granulocytes # Neutrophils # 10.6 H Lymphocytes # 1.1 Monocytes # 1.4 H Eosinophils # 0.1 Basophils # 0.0 Nucleated Red Blood 0.0 Cells # Sodium Level 147 H Potassium Level 3.4 L Chloride Level 116 H Carbon Dioxide Level 25 Anion Gap 6 Blood Urea Nitrogen 100 H Creatinine 1.41 H Est Glomerular Filtrat Rate mL/min Glucose Level 133 Calcium Level 8.1 L Bedside Glucose 132 114 Medications Medications Current Medications Diltiazem HCl (Cardizem) 30 mg Q8 PO Last administered on 08/29/18at 21:47; Admin Dose 30 MG; Start 08/29/18 at 22:00; Status Hold Fentanyl 100 ml @ 2.5 mls/hr TITRATE IV Last administered on 09/12/18at 12:04; Admin Dose 10 MLS/HR; Start 08/30/18 at 13:30 Atenolol (Tenormin) 12.5 mg BID NGT Last administered on 09/12/18at 08:14; Admin Dose 12.5 MG; Start 08/30/18 at 21:00 Digoxin (Digoxin) 0.125 mg DAILY@13 NGT Last administered on 09/03/18at 12:59; Admin Dose 0.125 MG; Start 08/30/18 at 13:00; Status Hold Ferrous Sulfate (Feosol Liquid Cup) 300 mg DAILY NGT Last administered on 09/12/18at 08:13; Admin Dose 300 MG; Start 08/31/18 at 09:00 Lansoprazole (Prevacid) 30 mg DAILY@06 NGT Last administered on 09/12/18at 05:20; Admin Dose 30 MG; Start 08/31/18 at 06:00 Docusate Sodium (Colace Liquid Cup) 100 mg BID PRN NGT CONSTIPATION Last administered on 08/30/18at 23:46; Admin Dose 100 MG; Start 08/30/18 at 13:30 Midazolam HCl 50 ml @ 1 mls/hr TITRATE IV Last administered on 09/12/18at 04:14; Admin Dose 8 MLS/HR; Start 09/01/18 at 11:00 Miscellaneous Information 1 ea NOTE XX ; Start 09/01/18 at 15:00 Glucose (Glutose) 15 gm Q15M PRN PO DECREASED GLUCOSE; Start 09/01/18 at 15:00 Glucose (Glutose) 22.5 gm Q15M PRN PO DECREASED GLUCOSE; Start 09/01/18 at 15:00 Dextrose (D50w Syringe) 25 ml Q15M PRN IV DECREASED GLUCOSE; Start 09/01/18 at 15:00 Dextrose (D50w Syringe) 50 ml Q15M PRN IV DECREASED GLUCOSE; Start 09/01/18 at 15:00 Glucagon (Glucagen) 1 mg Q15M PRN IM DECREASED GLUCOSE; Start 09/01/18 at 15:00 Glucose (Glutose) 15 gm Q15M PRN BUCCAL DECREASED GLUCOSE; Start 09/01/18 at 15:00 Insulin Aspart (Novolog Insulin Pen) NOVOLOG *MILD* ALGORI... Q4 SC Last administered on 09/11/18at 21:02; Admin Dose 2 UNIT; Start 09/02/18 at 01:00 Albuterol (Ventolin Hfa) 2 puff Q6H RESP THERAPY INH Last administered on 09/12/18at 09:49; Admin Dose 2 PUFF; Start 09/03/18 at 14:00 Ipratropium [place] (Atrovent Hfa) 2 puff Q6HWA RESP THERAPY INH Last administered on 09/12/18 09:49; Admin Dose 2 PUFF; Start 09/03/18 at 14:00 Ipratropium [place] (Atrovent Hfa) 2 puff Q6H RESP THERAPY PRN INH SHORTNESS OF BREATH; Start 09/03/18 at 09:30 Albuterol (Ventolin Hfa) 2 puff Q6H RESP THERAPY PRN INH SHORTNESS OF BREATH; Start 09/03/18 at 09:30 IV Flush (NS 10 ml) 10 ml PRN PRN IV IV PROTOCOL; Start 09/05/18 at 17:00 Bisacodyl (Dulcolax Supp) 10 mg QHS [place] Last administered on 09/11/18at 20:57; Admin Dose 10 MG; Start 09/07/18 at 11:30 Acetylcysteine (Mucomyst) 2 ml Q6H RESP THERAPY NEB Last administered on 09/12/18 09:48; Admin Dose 2 ML; Start 09/10/18 at 14:00 Scopolamine (Transderm-Scop) 1 patch Q72H TRANSDERM Last administered on 09/10/18 11:11; Admin Dose 1 PATCH; Start 09/10/18 at 11:00 Prednisone (Prednisone) 20 mg DAILY PO Last administered on 09/12/18 08:13; Admin Dose 20 MG; Start 09/11/18 at 09:00 Apixaban (Eliquis) 2.5 mg BID PO Last administered on 09/12/18 08:13; Admin Dose 2.5 MG; Start 09/11/18 at 12:00 CECE LOPEZ Sep 12, 2018 12:09
--- NOTE | 2018-09-12 13:45 | CONS ---
Assessment/Plan Assessment/Plan Hospital Course (Demo Recall) No acute changes patient is comfortable on vent afebrile WBC today 13.3 platelets 322 neutrophils 79.3 BUN 100 creatinine 1.41 Antimicrobials: None Indwelling: Endotracheal tube NG tube Bar catheter right femoral triple-lumen catheter Physical examination: Chronically ill appearing wasted elderly man who is intubated sedated in no distress. Head atraumatic normocephalic neck is supple chest rise symmetrical breath sounds diminished bases heart S1-S2 abdomen soft bowel sounds hypoactive extremities without cyanosis Assessment: 1. Severe sepsis on admission status post shock 2. Acute hypoxemic respiratory failure possibly aspiration 3. Multilobar pneumonia 4. COPD 5. History of lung cancer status post radiation, details unknown 6. Atrial fibrillation status post RVR 7. Bacteremia, cw contaminant Plan: Remains unchanged, completed antibiotics, continue vent management per pulmonary Consultation Date/Type/Reason Admit Date/Time Aug 29, 2018 at 18:56 Initial Consult Date Type of Consult id Requesting Provider: KARLEY DEAN MD Date/Time of Note DATE: 09/12/18 TIME: 13:44 Exam/Review of Systems Exam Vitals Vital Signs Date Temp Pulse Resp B/P (MAP) Pulse Ox O2 O2 Flow FiO2 Time Delivery Rate 09/12/18 73 20 137/63 100 13:30 (87) 09/12/18 Mechanical 13:00 Ventilator 09/12/18 97.5 12:00 09/12/18 30 11:23 Intake and Output 09/11/18 09/11/18 09/12/18 1515:00 23:00 07:00 IntakeIntake Total 499 ml 712.5 ml 952 ml OutputOutput Total 580 ml 520 ml 450 ml BalanceBalance -81 ml 192.5 ml 502 ml Results Result Diagram: 09/12/18 0355 09/12/18 0355 Results 24hrs Laboratory Tests Test 09/11/18 17:09 09/11/18 20:56 09/12/18 00:55 09/12/18 03:55 Bedside Glucose 161 186 131 White Blood Count 13.3 #H Red Blood Count 2.70 L Hemoglobin 7.5 L Hematocrit 23.0 L Mean Corpuscular 85.2 Volume Mean Corpuscular 27.8 L Hemoglobin Mean Corpuscular 32.6 Hemoglobin Concent Red Cell 17.4 H Distribution Width Platelet Count 322 Mean Platelet Volume 11.4 H Immature 1.200 H Granulocytes % Neutrophils % 79.3 H Lymphocytes % 8.6 L Monocytes % 10.2 Eosinophils % 0.5 Basophils % 0.2 Nucleated Red Blood 0.0 Cells % Immature 0.160 H Granulocytes # Neutrophils # 10.6 H Lymphocytes # 1.1 Monocytes # 1.4 H Eosinophils # 0.1 Basophils # 0.0 Nucleated Red Blood 0.0 Cells # Sodium Level 147 H Potassium Level 3.4 L Chloride Level 116 H Carbon Dioxide Level 25 Anion Gap 6 Blood Urea Nitrogen 100 H Creatinine 1.41 H Est Glomerular Filtrat Rate mL/min Glucose Level 133 Calcium Level 8.1 L Test 09/12/18 05:19 09/12/18 08:12 09/12/18 13:21 Bedside Glucose 132 114 135 Medications Medication Current Medications Diltiazem HCl (Cardizem) 30 mg Q8 PO Last administered on 08/29/18at 21:47; Admin Dose 30 MG; Start 08/29/18 at 22:00; Status Hold Fentanyl 100 ml @ 2.5 mls/hr TITRATE IV Last administered on 09/12/18at 12:04; Admin Dose 10 MLS/HR; Start 08/30/18 at 13:30 Atenolol (Tenormin) 12.5 mg BID NGT Last administered on 09/12/18 08:14; Admin Dose 12.5 MG; Start 08/30/18 at 21:00 Digoxin (Digoxin) 0.125 mg DAILY@13 NGT Last administered on 09/03/18at 12:59; Admin Dose 0.125 MG; Start 08/30/18 at 13:00; Status Hold Ferrous Sulfate (Feosol Liquid Cup) 300 mg DAILY NGT Last administered on 09/12/18 08:13; Admin Dose 300 MG; Start 08/31/18 at 09:00 Lansoprazole (Prevacid) 30 mg DAILY@06 NGT Last administered on 09/12/18 05:20; Admin Dose 30 MG; Start 08/31/18 at 06:00 Docusate Sodium (Colace Liquid Cup) 100 mg BID PRN NGT CONSTIPATION Last administered on 08/30/18at 23:46; Admin Dose 100 MG; Start 08/30/18 at 13:30 Midazolam HCl 50 ml @ 1 mls/hr TITRATE IV Last administered on 09/12/18at 13:23; Admin Dose 8 MLS/HR; Start 09/01/18 at 11:00 Miscellaneous Information 1 ea NOTE XX ; Start 09/01/18 at 15:00 Glucose (Glutose) 15 gm Q15M PRN PO DECREASED GLUCOSE; Start 09/01/18 at 15:00 Glucose (Glutose) 22.5 gm Q15M PRN PO DECREASED GLUCOSE; Start 09/01/18 at 15:00 Dextrose (D50w Syringe) 25 ml Q15M PRN IV DECREASED GLUCOSE; Start 09/01/18 at 15:00 Dextrose (D50w Syringe) 50 ml Q15M PRN IV DECREASED GLUCOSE; Start 09/01/18 at 15:00 Glucagon (Glucagen) 1 mg Q15M PRN IM DECREASED GLUCOSE; Start 09/01/18 at 15:00 Glucose (Glutose) 15 gm Q15M PRN BUCCAL DECREASED GLUCOSE; Start 09/01/18 at 15:00 Insulin Aspart (Novolog Insulin Pen) NOVOLOG *MILD* ALGORI... Q4 SC Last administered on 09/11/18at 21:02; Admin Dose 2 UNIT; Start 09/02/18 at 01:00 Albuterol (Ventolin Hfa) 2 puff Q6H RESP THERAPY INH Last administered on 09/12/18at 09:49; Admin Dose 2 PUFF; Start 09/03/18 at 14:00 Ipratropium [place] (Atrovent Hfa) 2 puff Q6HWA RESP THERAPY INH Last adminis tered on 09/12/18at 09:49; Admin Dose 2 PUFF; Start 09/03/18 at 14:00 Ipratropium [place] (Atrovent Hfa) 2 puff Q6H RESP THERAPY PRN INH SHORTNESS OF BREATH; Start 09/03/18 at 09:30 Albuterol (Ventolin Hfa) 2 puff Q6H RESP THERAPY PRN INH SHORTNESS OF BREATH; Start 09/03/18 at 09:30 IV Flush (NS 10 ml) 10 ml PRN PRN IV IV PROTOCOL; Start 09/05/18 at 17:00 Bisacodyl (Dulcolax Supp) 10 mg QHS [place] Last administered on 09/11/18at 20:57; Admin Dose 10 MG; Start 09/07/18 at 11:30 Acetylcysteine (Mucomyst) 2 ml Q6H RESP THERAPY NEB Last administered on 09/12/18at 09:48; Admin Dose 2 ML; Start 09/10/18 at 14:00 Scopolamine (Transderm-Scop) 1 patch Q72H TRANSDERM Last administered on 09/10/18at 11:11; Admin Dose 1 PATCH; Start 09/10/18 at 11:00 Prednisone (Prednisone) 20 mg DAILY PO Last administered on 09/12/18at 08:13; Admin Dose 20 MG; Start 09/11/18 at 09:00 Apixaban (Eliquis) 2.5 mg BID PO Last administered on 09/12/18 08:13; Admin Dose 2.5 MG; Start 09/11/18 at 12:00 Furosemide (Lasix) 40 mg DAILY IV ; Start 09/13/18 at 09:00 SUZANNE DANIELS NP Sep 12, 2018 13:45
[2018-09-12] MEDS ORDERED: POTASSIUM CHLORIDE 100 ML IVPB ONE (14:30)
[2018-09-12] MEDS: BISACODYL 10 MG SUPP PR SCH (21:21)
[2018-09-13] VITALS (78 sets, daily range): BP systolic 74–155; BP diastolic 31–104; PULSE 55–81; RESP 12–29
[2018-09-13] MEDS: INSULIN ASPART [NOVOLOG] 3 ML PEN SC SCH ×6 (01:00→20:49)
[2018-09-13] MEDS: ALBUTEROL HFA 8 GM INHALER INH SCH ×4 (02:01→20:00)
[2018-09-13] MEDS: ACETYLCYSTEINE 20% 4 ML VIAL NEB SCH ×4 (02:02→20:00)
[2018-09-13] MEDS: IPRATROPIUM (HFA) 12.9 GM INHALER INH PRN (02:04)
[2018-09-13] MEDS: LANSOPRAZOLE 30 MG CAP NGT SCH (05:06)
[2018-09-13] MEDS: MIDAZOLAM (DRIP) 50 mg/50 mL 50 ML IV SCH ×2 (07:35→16:53)
[2018-09-13] MEDS: FENTAnyl (DRIP) 1000 mcg/100mL 100 ML IV SCH ×2 (07:39→16:57)
[2018-09-13] MEDS: IPRATROPIUM (HFA) 12.9 GM INHALER INH SCH ×3 (08:09→20:00)
[2018-09-13] MEDS: predniSONE 20 MG TAB PO SCH (08:22)
[2018-09-13] MEDS: FERROUS SULFATE 60 MG/ML 5ML CUP NGT SCH (08:22)
[2018-09-13] MEDS: ATENOLOL 25 MG TAB NGT SCH ×2 (08:23→21:00)
[2018-09-13] MEDS: APIXABAN 5 MG TABLET PO SCH ×2 (08:23→22:11)
[2018-09-13] MEDS: FUROSEMIDE 40 MG INJ IV SCH (08:35)
[2018-09-13] MEDS: SCOPOLAMINE 1.5 MG PATCH TRANSDERM SCH (10:11)
--- NOTE | 2018-09-13 10:51 | CONS ---
Assessment/Plan Assessment/Plan Hospital Course (Demo Recall) IMPRESSION: 1. Atrial fibrillation with a rapid ventricular response.-now improved HR control 2. Congestive heart failure exacerbation, diastolic by most recent echo in July 2018 revealing a preserved EF of 65%, acute on chronic by history. 3. Hypertension-well controlled 4. Respiratory distress. 5. Shortness of breath, likely multifactorial secondary to heart failure and chronic obstructive pulmonary disease exacerbation. 6. Probable chronic obstructive pulmonary disease exacerbation. 7. Pneumonia, right lower lobe by chest x-ray, new since discharge, question aspiration. 8. Hypernatremia. 9. Leukocytosis-persistent but decreasing 10. Anemia, mild. 11. Coagulopathy, likely secondary to baseline Eliquis. 12. ARF-some slow improvement REcc: -ICU -Continue current atenolol as tolerated only -holding digoxin and following levels and HR closely and thus will check levels today -Continue eliquis -Continue abx's and f/u cx data -Continue steroids/bronchodilators -Follow volume status closely and would continue gentle lasix diuresis daily -wean vent as tolerated Consultation Date/Type/Reason Admit Date/Time Aug 29, 2018 at 18:56 Initial Consult Date 08/29/18 Type of Consult Cardiology Reason for Consultation AF Requesting Provider: KARLEY DEAN MD Date/Time of Note DATE: 09/13/18 TIME: 10:44 Exam/Review of Systems Vital Signs Vitals Vital Signs Date Temp Pulse Resp B/P (MAP) Pulse Ox O2 O2 Flow FiO2 Time Delivery Rate 09/13/18 80 20 117/56 97 09:30 (76) 09/13/18 [place] 09:00 l Ventilato r 09/13/18 100.0 08:00 09/13/18 30 05:41 Intake and Output 09/12/18 09/12/18 09/13/18 1515:00 23:00 07:00 IntakeIntake Total 964 ml 955.5 ml 964 ml OutputOutput Total 565 ml 570 ml 480 ml BalanceBalance 399 ml 385.5 ml 484 ml Exam Exam Review of Systems: CONSTITUTIONAL: No fevers, chills. PULMONARY: No sob CARDIOVASCULAR: No chest pain/palpitations GASTROINTESTINAL: No nausea/vomiting. GENITOURINARY: No hematuria/dysuria. MUSCULOSKELETAL: No myagias/arthalgias. PSYCHIATRIC: The patient denies depression. NEUROLOGIC: No weakness Constitutional: alert Psych: no complaints Head: normocephalic ENMT: mucosa pink and moist Neck: supple, jvd (9 cn=m water) Respiratory: clear to auscultation Cardiovascular: regular rate and rhythm Gastrointestinal: soft, non-tender Musculoskeletal: muscle tone (normal) Extremities: edema (none) 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: other (No focal deficits) Labs Result Diagram: 09/13/18 0408 09/13/18 0408 Results 24hrs Laboratory Tests Test 09/12/18 13:21 09/12/18 14:37 09/12/18 17:01 09/12/18 21:22 Bedside Glucose 135 165 164 Magnesium Level 2.3 Test 09/13/18 01:14 09/13/18 04:08 09/13/18 05:03 09/13/18 08:47 Bedside Glucose 129 128 126 White Blood Count 12.6 H Red Blood Count 2.74 L Hemoglobin 7.8 L Hematocrit 24.0 L Mean Corpuscular 87.6 Volume Mean Corpuscular 28.5 L Hemoglobin Mean Corpuscular 32.5 Hemoglobin Concent Red Cell 17.9 H Distribution Width Platelet Count 356 Mean Platelet Volume 11.1 H Immature 0.700 H Granulocytes % Neutrophils % 79.2 H Lymphocytes % 8.9 L Monocytes % 10.7 Eosinophils % 0.4 Basophils % 0.1 Nucleated Red Blood 0.0 Cells % Immature 0.090 H Granulocytes # Neutrophils # 10.0 H Lymphocytes # 1.1 Monocytes # 1.3 H Eosinophils # 0.1 Basophils # 0.0 Nucleated Red Blood 0.0 Cells # Sodium Level 148 H Potassium Level 4.0 Chloride Level 119 H Carbon Dioxide Level 24 Anion Gap 5 Blood Urea Nitrogen 96 H Creatinine 1.38 H Est Glomerular Filtrat Rate mL/min Glucose Level 131 Calcium Level 8.3 L Phosphorus Level 3.8 Magnesium Level 2.3 Medications Medications Current Medications Diltiazem HCl (Cardizem) 30 mg Q8 PO Last administered on 08/29/18at 21:47; Admin Dose 30 MG; Start 08/29/18 at 22:00; Status Hold Fentanyl 100 ml @ 2.5 mls/hr TITRATE IV Last administered on 09/13/18at 07:39; Admin Dose 10 MLS/HR; Start 08/30/18 at 13:30 Atenolol (Tenormin) 12.5 mg BID NGT Last administered on 09/13/18 08:23; Admin Dose 12.5 MG; Start 08/30/18 at 21:00 Digoxin (Digoxin) 0.125 mg DAILY@13 NGT Last administered on 09/03/18 12:59; Admin Dose 0.125 MG; Start 08/30/18 at 13:00; Status Hold Ferrous Sulfate (Feosol Liquid Cup) 300 mg DAILY NGT Last administered on 09/13/18 08:22; Admin Dose 300 MG; Start 08/31/18 at 09:00 Lansoprazole (Prevacid) 30 mg DAILY@06 NGT Last administered on 09/13/18 05:06; Admin Dose 30 MG; Start 08/31/18 at 06:00 Docusate Sodium (Colace Liquid Cup) 100 mg BID PRN NGT CONSTIPATION Last administered on 08/30/18at 23:46; Admin Dose 100 MG; Start 08/30/18 at 13:30 Midazolam HCl 50 ml @ 1 mls/hr TITRATE IV Last administered on 09/13/18at 07:35; Admin Dose 8 MLS/HR; Start 09/01/18 at 11:00 Miscellaneous Information 1 ea NOTE XX ; Start 09/01/18 at 15:00 Glucose (Glutose) 15 gm Q15M PRN PO DECREASED GLUCOSE; Start 09/01/18 at 15:00 Glucose (Glutose) 22.5 gm Q15M PRN PO DECREASED GLUCOSE; Start 09/01/18 at 15:00 Dextrose (D50w Syringe) 25 ml Q15M PRN IV DECREASED GLUCOSE; Start 09/01/18 at 15:00 Dextrose (D50w Syringe) 50 ml Q15M PRN IV DECREASED GLUCOSE; Start 09/01/18 at 15:00 Glucagon (Glucagen) 1 mg Q15M PRN IM DECREASED GLUCOSE; Start 09/01/18 at 15:00 Glucose (Glutose) 15 gm Q15M PRN BUCCAL DECREASED GLUCOSE; Start 09/01/18 at 15:00 Insulin Aspart (Novolog Insulin Pen) NOVOLOG *MILD* ALGORI... Q4 SC Last administered on 09/12/18at 21:28; Admin Dose 1 UNIT; Start 09/02/18 at 01:00 Albuterol (Ventolin Hfa) 2 puff Q6H RESP THERAPY INH Last administered on 09/13/18 08:09; Admin Dose 2 PUFF; Start 09/03/18 at 14:00 Ipratropium [place] (Atrovent Hfa) 2 puff Q6HWA RESP THERAPY INH Last administered on 09/13/18 08:09; Admin Dose 2 PUFF; Start 09/03/18 at 14:00 Ipratropium [place] (Atrovent Hfa) 2 puff Q6H RESP THERAPY PRN INH SHORTNESS OF BREATH Last administered on 09/13/18 02:04; Admin Dose 2 PUFF; Start 09/03/18 at 09:30 Albuterol (Ventolin Hfa) 2 puff Q6H RESP THERAPY PRN INH SHORTNESS OF BREATH; Start 09/03/18 at 09:30 IV Flush (NS 10 ml) 10 ml PRN PRN IV IV PROTOCOL; Start 09/05/18 at 17:00 Bisacodyl (Dulcolax Supp) 10 mg QHS [place] Last administered on 09/12/18 21:21; Admin Dose 10 MG; Start 09/07/18 at 11:30 Acetylcysteine (Mucomyst) 2 ml Q6H RESP THERAPY NEB Last administered on 09/13/18 08:09; Admin Dose 2 ML; Start 09/10/18 at 14:00 Scopolamine (Transderm-Scop) 1 patch Q72H TRANSDERM Last administered on 09/13/18 10:11; Admin Dose 1 PATCH; Start 09/10/18 at 11:00 Prednisone (Prednisone) 20 mg DAILY PO Last administered on 09/13/18 08:22; Admin Dose 20 MG; Start 09/11/18 at 09:00 Apixaban (Eliquis) 2.5 mg BID PO Last administered on 09/13/18 08:23; Admin Dose 2.5 MG; Start 09/11/18 at 12:00 Furosemide (Lasix) 40 mg DAILY IV Last administered on 09/13/18 08:35; Admin Dose 40 MG; Start 09/13/18 at 09:00 CECE LOPEZ Sep 13, 2018 10:51
--- NOTE | 2018-09-13 11:34 | CONS ---
Consult Date/Type/Reason Admit Date/Time Aug 29, 2018 at 18:56 Initial Consult Date Type of Consult Pulmonary Requesting Provider: KARLEY DEAN MD Date/Time of Note DATE: 09/13/18 TIME: 11:34 Subjective Continues mechanical ventilation having failed multiple weaning trials. Objective Vital Signs Date Temp Pulse Resp B/P (MAP) Pulse Ox O2 O2 Flow FiO2 Time Delivery Rate 09/13/18 75 19 101/47 100 [place] 11:00 (65) l Ventilato r 09/13/18 100.0 08:00 09/13/18 30 05:41 Intake and Output 09/12/18 09/12/18 09/13/18 1414:59 22:59 06:59 IntakeIntake Total 964 ml 957.5 ml 962 ml OutputOutput Total 550 ml 570 ml 500 ml BalanceBalance 414 ml 387.5 ml 462 ml Exam GENERAL: Elderly-appearing gentleman, now intubated on mechanical ventilation, appears comfortable at rest, no acute distress. NECK: Supple. No JVD or lymphadenopathy. CARDIAC: Sounds S1, S2, no added sounds or murmurs. CHEST: Diminished air entry bilaterally with occasional rhonchi ABDOMEN: Soft, nontender. No guarding or rebound. EXTREMITIES: No cyanosis or clubbing. 1+ edema Vent Setting Ventilator Support Mode: AC, VC plus Fraction of Inspired Oxygen pe: 30 Positive End Expiratory Pressu: 5.0 Results/Medications Result Diagram: 09/13/18 0408 09/13/18 0408 Results 24 hrs Laboratory Tests Test 09/12/18 13:21 09/12/18 14:37 09/12/18 17:01 09/12/18 21:22 Bedside Glucose 135 165 164 Magnesium Level 2.3 Test 09/13/18 01:14 09/13/18 04:08 09/13/18 05:03 09/13/18 08:47 Bedside Glucose 129 128 126 White Blood Count 12.6 H Red Blood Count 2.74 L Hemoglobin 7.8 L Hematocrit 24.0 L Mean Corpuscular 87.6 Volume Mean Corpuscular 28.5 L Hemoglobin Mean Corpuscular 32.5 Hemoglobin Concent Red Cell 17.9 H Distribution Width Platelet Count 356 Mean Platelet Volume 11.1 H Immature 0.700 H Granulocytes % Neutrophils % 79.2 H Lymphocytes % 8.9 L Monocytes % 10.7 Eosinophils % 0.4 Basophils % 0.1 Nucleated Red Blood 0.0 Cells % Immature 0.090 H Granulocytes # Neutrophils # 10.0 H Lymphocytes # 1.1 Monocytes # 1.3 H Eosinophils # 0.1 Basophils # 0.0 Nucleated Red Blood 0.0 Cells # Sodium Level 148 H Potassium Level 4.0 Chloride Level 119 H Carbon Dioxide Level 24 Anion Gap 5 Blood Urea Nitrogen 96 H Creatinine 1.38 H Est Glomerular Filtrat Rate mL/min Glucose Level 131 Calcium Level 8.3 L Phosphorus Level 3.8 Magnesium Level 2.3 Medications Current Medications Diltiazem HCl (Cardizem) 30 mg Q8 PO Last administered on 08/29/18 21:47; Admin Dose 30 MG; Start 08/29/18 at 22:00; Status Hold Fentanyl 100 ml @ 2.5 mls/hr TITRATE IV Last administered on 09/13/18 07:39; Admin Dose 10 MLS/HR; Start 08/30/18 at 13:30 Atenolol (Tenormin) 12.5 mg BID NGT Last administered on 09/13/18 08:23; Admin Dose 12.5 MG; Start 08/30/18 at 21:00 Digoxin (Digoxin) 0.125 mg DAILY@13 NGT Last administered on 09/03/18 12:59; Admin Dose 0.125 MG; Start 08/30/18 at 13:00; Status Hold Ferrous Sulfate (Feosol Liquid Cup) 300 mg DAILY NGT Last administered on 09/13/18 08:22; Admin Dose 300 MG; Start 08/31/18 at 09:00 Lansoprazole (Prevacid) 30 mg DAILY@06 NGT Last administered on 09/13/18 05:06; Admin Dose 30 MG; Start 08/31/18 at 06:00 Docusate Sodium (Colace Liquid Cup) 100 mg BID PRN NGT CONSTIPATION Last administered on 08/30/18 23:46; Admin Dose 100 MG; Start 08/30/18 at 13:30 Midazolam HCl 50 ml @ 1 mls/hr TITRATE IV Last administered on 09/13/18 07:35; Admin Dose 8 MLS/HR; Start 09/01/18 at 11:00 Miscellaneous Information 1 ea NOTE XX ; Start 09/01/18 at 15:00 Glucose (Glutose) 15 gm Q15M PRN PO DECREASED GLUCOSE; Start 09/01/18 at 15:00 Glucose (Glutose) 22.5 gm Q15M PRN PO DECREASED GLUCOSE; Start 09/01/18 at 15:00 Dextrose (D50w Syringe) 25 ml Q15M PRN IV DECREASED GLUCOSE; Start 09/01/18 at 15:00 Dextrose (D50w Syringe) 50 ml Q15M PRN IV DECREASED GLUCOSE; Start 09/01/18 at 15:00 Glucagon (Glucagen) 1 mg Q15M PRN IM DECREASED GLUCOSE; Start 09/01/18 at 15:00 Glucose (Glutose) 15 gm Q15M PRN BUCCAL DECREASED GLUCOSE; Start 09/01/18 at 15:00 Insulin Aspart (Novolog Insulin Pen) NOVOLOG *MILD* ALGORI... Q4 [place] Last administered on 09/12/18at 21:28; Admin Dose 1 UNIT; Start 09/02/18 at 01:00 Albuterol (Ventolin Hfa) 2 puff Q6H RESP THERAPY INH Last administered on 09/13/18at 08:09; Admin Dose 2 PUFF; Start 09/03/18 at 14:00 Ipratropium [place] (Atrovent Hfa) 2 puff Q6HWA RESP THERAPY INH Last administered on 09/13/18 08:09; Admin Dose 2 PUFF; Start 09/03/18 at 14:00 Ipratropium [place] (Atrovent Hfa) 2 puff Q6H RESP THERAPY PRN INH SHORTNESS OF BREATH Last administered on 09/13/18at 02:04; Admin Dose 2 PUFF; Start 09/03/18 at 09:30 Albuterol (Ventolin Hfa) 2 puff Q6H RESP THERAPY PRN INH SHORTNESS OF BREATH; Start 09/03/18 at 09:30 IV Flush (NS 10 ml) 10 ml PRN PRN IV IV PROTOCOL; Start 09/05/18 at 17:00 Bisacodyl (Dulcolax Supp) 10 mg QHS [place] Last administered on 09/12/18at 21:21; Admin Dose 10 MG; Start 09/07/18 at 11:30 Acetylcysteine (Mucomyst) 2 ml Q6H RESP THERAPY NEB Last administered on 09/13/18at 08:09; Admin Dose 2 ML; Start 09/10/18 at 14:00 Scopolamine (Transderm-Scop) 1 patch Q72H TRANSDERM Last administered on 09/13/18at 10:11; Admin Dose 1 PATCH; Start 09/10/18 at 11:00 Prednisone (Prednisone) 20 mg DAILY PO Last administered on 09/13/18 08:22; Admin Dose 20 MG; Start 09/11/18 at 09:00 Apixaban (Eliquis) 2.5 mg BID PO Last administered on 09/13/18 08:23; Admin Dose 2.5 MG; Start 09/11/18 at 12:00 Furosemide (Lasix) 40 mg DAILY IV Last administered on 09/13/18 08:35; Admin Dose 40 MG; Start 09/13/18 at 09:00 Assessment/Plan Hospital Course (Demo Recall) IMPRESSION AND PLAN: 1. History of lung cancer and advanced COPD with recurrent hypoxemic respiratory failure 2. Probable aspiration pneumonia. Bilateral infiltrates with left pleural effusion. 3. Chronic obstructive pulmonary disease exacerbation. 4. Septic shock and metabolic acidosis secondary to above. 5. Renal insufficiency. PLAN: 1. Continue vasopressors and IV fluids tube feeding as tolerated, 2. Blood cultures. 3. Broad-spectrum antibiotics. 4. DVT and GI prophylaxis. 5. Continue mechanical ventilation failed CPAP trial unlikely to be liberated from mechanical ventilation. 6. Steroids. 7. Decreased sedation as tolerated sedation vacation if possible. Critical care time 40 minutes. AISHWARYA PICKARD MD, [facility] Sep 13, 2018 11:34
--- NOTE | 2018-09-13 14:38 | CONS ---
Assessment/Plan Assessment/Plan Hospital Course (Demo Recall) No acute changes patient remains intubated sedated in no distress he is afebrile off antibiotics, T-max this morning was 100 WBC 12.6 neutrophils 79.2 BUN 96 creatinine 1.38 Antimicrobials: None Indwelling: Endotracheal tube NG tube Bar catheter right femoral triple-lumen catheter Physical examination: Chronically ill appearing wasted elderly man who is intubated sedated in no distress. Head atraumatic normocephalic neck is supple chest rise symmetrical breath sounds diminished bases heart S1-S2 abdomen soft bowel sounds hypoactive extremities without cyanosis Assessment: 1. Severe sepsis on admission status post shock 2. Acute hypoxemic respiratory failure possibly aspiration 3. Multilobar pneumonia 4. COPD 5. History of lung cancer status post radiation, details unknown 6. Atrial fibrillation status post RVR 7. Bacteremia, cw contaminant Plan: Remains unchanged, continue vent management per pulmonary, reculture for T101 Consultation Date/Type/Reason Admit Date/Time Aug 29, 2018 at 18:56 Initial Consult Date Type of Consult id Requesting Provider: KARLEY DEAN MD Date/Time of Note DATE: 09/13/18 TIME: 14:37 Exam/Review of Systems Exam Vitals Vital Signs Date Temp Pulse Resp B/P (MAP) Pulse Ox O2 O2 Flow FiO2 Time Delivery Rate 09/13/18 30 12:00 09/13/18 71 19 100 11:20 09/13/18 101/47 [place] 11:00 (65) l Ventilato r 09/13/18 100.0 08:00 Intake and Output 09/12/18 09/12/18 09/13/18 1515:00 23:00 07:00 IntakeIntake Total 964 ml 955.5 ml 964 ml OutputOutput Total 565 ml 570 ml 480 ml BalanceBalance 399 ml 385.5 ml 484 ml Results Result Diagram: 09/13/18 0408 09/13/18 0408 Results 24hrs Laboratory Tests Test 09/12/18 17:01 09/12/18 21:22 09/13/18 01:14 09/13/18 04:08 Bedside Glucose 165 164 129 White Blood Count 12.6 H Red Blood Count 2.74 L Hemoglobin 7.8 L Hematocrit 24.0 L Mean Corpuscular 87.6 Volume Mean Corpuscular 28.5 L Hemoglobin Mean Corpuscular 32.5 Hemoglobin Concent Red Cell 17.9 H Distribution Width Platelet Count 356 Mean Platelet Volume 11.1 H Immature 0.700 H Granulocytes % Neutrophils % 79.2 H Lymphocytes % 8.9 L Monocytes % 10.7 Eosinophils % 0.4 Basophils % 0.1 Nucleated Red Blood 0.0 Cells % Immature 0.090 H Granulocytes # Neutrophils # 10.0 H Lymphocytes # 1.1 Monocytes # 1.3 H Eosinophils # 0.1 Basophils # 0.0 Nucleated Red Blood 0.0 Cells # Sodium Level 148 H Potassium Level 4.0 Chloride Level 119 H Carbon Dioxide Level 24 Anion Gap 5 Blood Urea Nitrogen 96 H Creatinine 1.38 H Est Glomerular Filtrat Rate mL/min Glucose Level 131 Calcium Level 8.3 L Phosphorus Level 3.8 Magnesium Level 2.3 Test 09/13/18 05:03 09/13/18 08:47 09/13/18 13:20 09/13/18 13:23 Bedside Glucose 128 126 162 Digoxin Level 0.8 L Medications Medication Current Medications Diltiazem HCl (Cardizem) 30 mg Q8 PO Last administered on 08/29/18 21:47; Admin Dose 30 MG; Start 08/29/18 at 22:00; Status Hold Fentanyl 100 ml @ 2.5 mls/hr TITRATE IV Last administered on 09/13/18 07:39; Admin Dose 10 MLS/HR; Start 08/30/18 at 13:30 Atenolol (Tenormin) 12.5 mg BID NGT Last administered on 09/13/18 08:23; Admin Dose 12.5 MG; Start 08/30/18 at 21:00 Digoxin (Digoxin) 0.125 mg DAILY@13 NGT Last administered on 09/03/18 12:59; Admin Dose 0.125 MG; Start 08/30/18 at 13:00; Status Hold Ferrous Sulfate (Feosol Liquid Cup) 300 mg DAILY NGT Last administered on 09/13/18 08:22; Admin Dose 300 MG; Start 08/31/18 at 09:00 Lansoprazole (Prevacid) 30 mg DAILY@06 NGT Last administered on 09/13/18 05:06; Admin Dose 30 MG; Start 08/31/18 at 06:00 Docusate Sodium (Colace Liquid Cup) 100 mg BID PRN NGT CONSTIPATION Last administered on 08/30/18at 23:46; Admin Dose 100 MG; Start 08/30/18 at 13:30 Midazolam HCl 50 ml @ 1 mls/hr TITRATE IV Last administered on 09/13/18at 07:35; Admin Dose 8 MLS/HR; Start 09/01/18 at 11:00 Miscellaneous Information 1 ea NOTE XX ; Start 09/01/18 at 15:00 Glucose (Glutose) 15 gm Q15M PRN PO DECREASED GLUCOSE; Start 09/01/18 at 15:00 Glucose (Glutose) 22.5 gm Q15M PRN PO DECREASED GLUCOSE; Start 09/01/18 at 15:00 Dextrose (D50w Syringe) 25 ml Q15M PRN IV DECREASED GLUCOSE; Start 09/01/18 at 15:00 Dextrose (D50w Syringe) 50 ml Q15M PRN IV DECREASED GLUCOSE; Start 09/01/18 at 15:00 Glucagon (Glucagen) 1 mg Q15M PRN IM DECREASED GLUCOSE; Start 09/01/18 at 15:00 Glucose (Glutose) 15 gm Q15M PRN BUCCAL DECREASED GLUCOSE; Start 09/01/18 at 15:00 Insulin Aspart (Novolog Insulin Pen) NOVOLOG *MILD* ALGORI... Q4 [place] Last administered on 09/13/18at 13:30; Admin Dose 1 UNIT; Start 09/02/18 at 01:00 Albuterol (Ventolin Hfa) 2 puff Q6H RESP THERAPY INH Last administered on 08:09; Admin Dose 2 PUFF; Start 09/03/18 at 14:00 Ipratropium [place] (Atrovent Hfa) 2 puff Q6HWA RESP THERAPY INH Last administered on 09/13/18 08:09; Admin Dose 2 PUFF; Start 09/03/18 at 14:00 Ipratropium [place] (Atrovent Hfa) 2 puff Q6H RESP THERAPY PRN INH SHORTNESS OF BREATH Last administered on 09/13/18at 02:04; Admin Dose 2 PUFF; Start 09/03/18 at 09:30 Albuterol (Ventolin Hfa) 2 puff Q6H RESP THERAPY PRN INH SHORTNESS OF BREATH; Start 09/03/18 at 09:30 IV Flush (NS 10 ml) 10 ml PRN PRN IV IV PROTOCOL; Start 09/05/18 at 17:00 Bisacodyl (Dulcolax Supp) 10 mg QHS [place] Last administered on 09/12/18 21:21; Admin Dose 10 MG; Start 09/07/18 at 11:30 Acetylcysteine (Mucomyst) 2 ml Q6H RESP THERAPY NEB Last administered on 09/13/18 08:09; Admin Dose 2 ML; Start 09/10/18 at 14:00 Scopolamine (Transderm-Scop) 1 patch Q72H TRANSDERM Last administered on 09/13/18 10:11; Admin Dose 1 PATCH; Start 09/10/18 at 11:00 Prednisone (Prednisone) 20 mg DAILY PO Last administered on 09/13/18 08:22; Admin Dose 20 MG; Start 09/11/18 at 09:00 Apixaban (Eliquis) 2.5 mg BID PO Last administered on 09/13/18 08:23; Admin Dose 2.5 MG; Start 09/11/18 at 12:00 Furosemide (Lasix) 40 mg DAILY IV Last administered on 09/13/18 08:35; Admin Dose 40 MG; Start 09/13/18 at 09:00 SUZANNE DANIELS NP Sep 13, 2018 14:38
--- NOTE | 2018-09-13 16:04 | PN ---
Date/Time of Note Date/Time of Note DATE: 09/13/18 TIME: 16:02 Assessment/Plan VTE Prophylaxis Risk score (from Ns)>0 risk: 12 SCD applied (from Ns): Yes Pharmacological prophylaxis: apixaban Lines/Catheters IV Catheter Type (from Nrsg): PICC Line Central line still needed: Yes Urinary Cath still in place: Yes Reason Cath still needed: urinary retention Assessment/Plan Hospital Course 1 Septic shock likely due to sepsis /pneumonia . Off pressors 2. ALOC, lethargic. Now sedated follows commands off sedation 3. Atrial fibrillation, now flutter, controlled 4. Hypoxic respiratory failure. Respiratory acidosis, resolved. 5. Bilateral pneumonia 6. Congestive heart failure, EF 35 to 40%, 7. Hx of right side lung cancer 8. JAMES on chronic kidney disease, creatinine baseline 1.6. With elevated BUN and creatinine ratio likely ATN secondary to septic shock now Cr downtrending however BUN still high, Good UOP 9. Hx of pleural effusions, right and left and numerous thoracentesis. Now left pleural effusion on chest xray 10. Bilateral pleural effusion 11. Hx of hypertension, now on BP support 12. Hyperlipidemia 13 + bacteremia however new bld cx neg 14 Hypernatremia likely hypovolemic , resolved 15. Anemia Assessment/Plan --Thoracentesis could not be performed as very less fluid -Not weanable yet per pulmonary, will follow with pulmonary recommendations if not able to come out of the ventilator terminal extubation -skin care -c/w ICU care -Monitor lytes/urine output -c w vanco/meropenam + wbc 17 -cw pred 20 -Scopolamine patch for secretions -pulmonary consult dr Guajardo appreciated -orally intubated 30 % -Cardiology consult dr Hall -With vancomycin/meropenem, -DVT proph. Eliquiz 5 mg GT BID -GI proph. Protonix GT Result Diagram: 09/13/18 0408 09/13/18 0408 Results 24hrs Laboratory Tests Test 09/12/18 17:01 09/12/18 21:22 09/13/18 01:14 09/13/18 04:08 Bedside Glucose 165 164 129 White Blood Count 12.6 H Red Blood Count 2.74 L Hemoglobin 7.8 L Hematocrit 24.0 L Mean Corpuscular 87.6 Volume Mean Corpuscular 28.5 L Hemoglobin Mean Corpuscular 32.5 Hemoglobin Concent Red Cell 17.9 H Distribution Width Platelet Count 356 Mean Platelet Volume 11.1 H Immature 0.700 H Granulocytes % Neutrophils % 79.2 H Lymphocytes % 8.9 L Monocytes % 10.7 Eosinophils % 0.4 Basophils % 0.1 Nucleated Red Blood 0.0 Cells % Immature 0.090 H Granulocytes # Neutrophils # 10.0 H Lymphocytes # 1.1 Monocytes # 1.3 H Eosinophils # 0.1 Basophils # 0.0 Nucleated Red Blood 0.0 Cells # Sodium Level 148 H Potassium Level 4.0 Chloride Level 119 H Carbon Dioxide Level 24 Anion Gap 5 Blood Urea Nitrogen 96 H Creatinine 1.38 H Est Glomerular Filtrat Rate mL/min Glucose Level 131 Calcium Level 8.3 L Phosphorus Level 3.8 Magnesium Level 2.3 Test 09/13/18 05:03 09/13/18 08:47 09/13/18 13:20 09/13/18 13:23 Bedside Glucose 128 126 162 Digoxin Level 0.8 L Subjective 24 Hr Interval Summary Subjective hx not possible: pt non-verbal, pt critical status Exam/Review of Systems Exam Vitals Vital Signs Date Temp Pulse Resp B/P (MAP) Pulse Ox O2 O2 Flow FiO2 Time Delivery Rate 09/13/18 78 18 98/47 (64) 99 14:30 09/13/18 Mechanical 14:00 Ventilator 09/13/18 98.2 12:00 09/13/18 30 12:00 Intake and Output 09/12/18 09/12/18 09/13/18 1515:00 23:00 07:00 IntakeIntake Total 964 ml 955.5 ml 964 ml OutputOutput Total 565 ml 570 ml 480 ml BalanceBalance 399 ml 385.5 ml 484 ml Exam orally intubated Constitutional: non-verbal Neck: supple Respiratory: diminished breath sounds Gastrointestinal: soft Musculoskeletal: muscle weakness Results Results 24hrs Laboratory Tests Test 09/12/18 17:01 09/12/18 21:22 09/13/18 01:14 09/13/18 04:08 Bedside Glucose 165 164 129 White Blood Count 12.6 H Red Blood Count 2.74 L Hemoglobin 7.8 L Hematocrit 24.0 L Mean Corpuscular 87.6 Volume Mean Corpuscular 28.5 L Hemoglobin Mean Corpuscular 32.5 Hemoglobin Concent Red Cell 17.9 H Distribution Width Platelet Count 356 Mean Platelet Volume 11.1 H Immature 0.700 H Granulocytes % Neutrophils % 79.2 H Lymphocytes % 8.9 L Monocytes % 10.7 Eosinophils % 0.4 Basophils % 0.1 Nucleated Red Blood 0.0 Cells % Immature 0.090 H Granulocytes # Neutrophils # 10.0 H Lymphocytes # 1.1 Monocytes # 1.3 H Eosinophils # 0.1 Basophils # 0.0 Nucleated Red Blood 0.0 Cells # Sodium Level 148 H Potassium Level 4.0 Chloride Level 119 H Carbon Dioxide Level 24 Anion Gap 5 Blood Urea Nitrogen 96 H Creatinine 1.38 H Est Glomerular Filtrat Rate mL/min Glucose Level 131 Calcium Level 8.3 L Phosphorus Level 3.8 Magnesium Level 2.3 Test 09/13/18 05:03 09/13/18 08:47 09/13/18 13:20 09/13/18 13:23 Bedside Glucose 128 126 162 Digoxin Level 0.8 L Medications Medication Current Medications Diltiazem HCl (Cardizem) 30 mg Q8 PO Last administered on 08/29/18 21:47; Admin Dose 30 MG; Start 08/29/18 at 22:00; Status Hold Fentanyl 100 ml @ 2.5 mls/hr TITRATE IV Last administered on 09/13/18 07:39; Admin Dose 10 MLS/HR; Start 08/30/18 at 13:30 Atenolol (Tenormin) 12.5 mg BID NGT Last administered on 09/13/18 08:23; Admin Dose 12.5 MG; Start 08/30/18 at 21:00 Digoxin (Digoxin) 0.125 mg DAILY@13 NGT Last administered on 09/03/18 12:59; Admin Dose 0.125 MG; Start 08/30/18 at 13:00; Status Hold Ferrous Sulfate (Feosol Liquid Cup) 300 mg DAILY NGT Last administered on 09/13/18 08:22; Admin Dose 300 MG; Start 08/31/18 at 09:00 Lansoprazole (Prevacid) 30 mg DAILY@06 NGT Last administered on 09/13/18 05:06; Admin Dose 30 MG; Start 08/31/18 at 06:00 Docusate Sodium (Colace Liquid Cup) 100 mg BID PRN NGT CONSTIPATION Last administered on 6/28/19at 23:46; Admin Dose 100 MG; Start 08/30/18 at 13:30 Midazolam HCl 50 ml @ 1 mls/hr TITRATE IV Last administered on 09/13/18at 07:35; Admin Dose 8 MLS/HR; Start 09/01/18 at 11:00 Miscellaneous Information 1 ea NOTE XX ; Start 09/01/18 at 15:00 Glucose (Glutose) 15 gm Q15M PRN PO DECREASED GLUCOSE; Start 09/01/18 at 15:00 Glucose (Glutose) 22.5 gm Q15M PRN PO DECREASED GLUCOSE; Start 09/01/18 at 15:00 Dextrose (D50w Syringe) 25 ml Q15M PRN IV DECREASED GLUCOSE; Start 09/01/18 at 15:00 Dextrose (D50w Syringe) 50 ml Q15M PRN IV DECREASED GLUCOSE; Start 09/01/18 at 15:00 Glucagon (Glucagen) 1 mg Q15M PRN IM DECREASED GLUCOSE; Start 09/01/18 at 15:00 Glucose (Glutose) 15 gm Q15M PRN BUCCAL DECREASED GLUCOSE; Start 09/01/18 at 15:00 Insulin Aspart (Novolog Insulin Pen) NOVOLOG *MILD* ALGORI... Q4 SC Last administered on 09/13/18at 13:30; Admin Dose 1 UNIT; Start 09/02/18 at 01:00 Albuterol (Ventolin Hfa) 2 puff Q6H RESP THERAPY INH Last administered on 09/13/18at 15:36; Admin Dose 2 PUFF; Start 09/03/18 at 14:00 Ipratropium [place] (Atrovent Hfa) 2 puff Q6HWA RESP THERAPY INH Last administered on 09/13/18at 15:36; Admin Dose 2 PUFF; Start 09/03/18 at 14:00 Ipratropium [place] (Atrovent Hfa) 2 puff Q6H RESP THERAPY PRN INH SHORTNESS OF BREATH Last administered on 09/13/18at 02:04; Admin Dose 2 PUFF; Start 09/03/18 at 09:30 Albuterol (Ventolin Hfa) 2 puff Q6H RESP THERAPY PRN INH SHORTNESS OF BREATH; Start 09/03/18 at 09:30 IV Flush (NS 10 ml) 10 ml PRN PRN IV IV PROTOCOL; Start 09/05/18 at 17:00 Bisacodyl (Dulcolax Supp) 10 mg QHS [place] Last administered on 09/12/18at 21:21; Ad min Dose 10 MG; Start 09/07/18 at 11:30 Acetylcysteine (Mucomyst) 2 ml Q6H RESP THERAPY NEB Last administered on 09/13/18at 15:36; Admin Dose 2 ML; Start 09/10/18 at 14:00 Scopolamine (Transderm-Scop) 1 patch Q72H TRANSDERM Last administered on 09/13/18 10:11; Admin Dose 1 PATCH; Start 09/10/18 at 11:00 Prednisone (Prednisone) 20 mg DAILY PO Last administered on 09/13/18 08:22; Admin Dose 20 MG; Start 09/11/18 at 09:00 Apixaban (Eliquis) 2.5 mg BID PO Last administered on 09/13/18 08:23; Admin Dose 2.5 MG; Start 09/11/18 at 12:00 Furosemide (Lasix) 40 mg DAILY IV Last administered on 09/13/18 08:35; Admin Dose 40 MG; Start 09/13/18 at 09:00 JASPER SAHU Sep 13, 2018 16:04
[2018-09-13] MEDS ORDERED: SOD CHLORIDE 0.9% 500 ML IV ONE (17:00)
[2018-09-13] MEDS ORDERED: PHENYLephrine 20MG IN 250 ML 250 ML IV SCH (17:00)
[2018-09-13] MEDS: BISACODYL 10 MG SUPP PR SCH (20:36)
[2018-09-13] MEDS: PROPOFOL 100 ML IV SCH (22:24)
[2018-09-14] VITALS (84 sets, daily range): BP systolic 88–156; BP diastolic 35–63; PULSE 43–160; RESP 15–29
[2018-09-14] MEDS: MIDAZOLAM (DRIP) 50 mg/50 mL 50 ML IV SCH ×4 (00:38→19:40)
[2018-09-14] MEDS: INSULIN ASPART [NOVOLOG] 3 ML PEN SC SCH ×6 (01:15→21:00)
[2018-09-14] MEDS: ACETYLCYSTEINE 20% 4 ML VIAL NEB SCH ×4 (01:47→19:33)
[2018-09-14] MEDS: IPRATROPIUM (HFA) 12.9 GM INHALER INH PRN (01:47)
[2018-09-14] MEDS: ALBUTEROL HFA 8 GM INHALER INH SCH ×4 (01:47→19:34)
[2018-09-14] MEDS: FENTAnyl (DRIP) 1000 mcg/100mL 100 ML IV SCH (03:57)
[2018-09-14] MEDS: LANSOPRAZOLE 30 MG CAP NGT SCH (05:14)
[2018-09-14] MEDS: IPRATROPIUM (HFA) 12.9 GM INHALER INH SCH ×3 (08:13→19:34)
[2018-09-14] MEDS: ATENOLOL 25 MG TAB NGT SCH (09:00)
[2018-09-14] MEDS: predniSONE 20 MG TAB PO SCH (09:39)
[2018-09-14] MEDS: FERROUS SULFATE 60 MG/ML 5ML CUP NGT SCH (09:39)
[2018-09-14] MEDS: APIXABAN 5 MG TABLET PO SCH ×2 (09:39→21:09)
[2018-09-14] MEDS: PROPOFOL 100 ML IV SCH ×2 (10:30→14:58)
[2018-09-14] MEDS: FUROSEMIDE 40 MG INJ IV SCH (13:20)
--- NOTE | 2018-09-14 13:21 | CONS ---
Assessment/Plan Assessment/Plan Hospital Course (Demo Recall) IMPRESSION: 1. Atrial fibrillation-now with some SVR to mid 30's, pause 2 seconds 2. Congestive heart failure exacerbation, diastolic by most recent echo in July 2018 revealing a preserved EF of 65%, acute on chronic by history. 3. Hypotension-borderline now off pressors 4. Respiratory distress. 5. Shortness of breath, likely multifactorial secondary to heart failure and chronic obstructive pulmonary disease exacerbation. 6. Probable chronic obstructive pulmonary disease exacerbation. 7. Pneumonia, right lower lobe by chest x-ray, new since discharge, question aspiration. 8. Hypernatremia. 9. Leukocytosis-persistent but decreasing 10. Anemia, mild. 11. Coagulopathy, likely secondary to baseline Eliquis. 12. ARF-some slow improvement REcc: -ICU -holding digoxin and atenolol given borderline bradycardia and hypotension -Continue eliquis -Continue abx's and f/u cx data -Continue steroids/bronchodilators -Follow volume status closely and would continue gentle lasix diuresis daily -wean vent as tolerated with possible progression to terminal extubation if unable to wean Consultation Date/Type/Reason Admit Date/Time Aug 29, 2018 at 18:56 Initial Consult Date 08/29/18 Type of Consult Cardiology Reason for Consultation AF Requesting Provider: KARLEY DEAN MD Date/Time of Note DATE: 09/14/18 TIME: 13:17 Exam/Review of Systems Vital Signs Vitals Vital Signs Date Temp Pulse Resp B/P (MAP) Pulse Ox O2 O2 Flow FiO2 Time Delivery Rate 09/14/18 52 18 99 30 13:08 09/14/18 97.5 92/37 (55) Mechanical 12:00 Ventilator Intake and Output 09/13/18 09/13/18 09/14/18 1515:00 23:00 07:00 IntakeIntake Total 939 ml 1673 ml 1086.834 ml OutputOutput Total 1075 ml 900 ml 502 ml BalanceBalance -136 ml 773 ml 584.834 ml Exam Exam Review of Systems: CONSTITUTIONAL: No fevers, chills. PULMONARY: No sob CARDIOVASCULAR: No chest pain/palpitations GASTROINTESTINAL: No nausea/vomiting. GENITOURINARY: No hematuria/dysuria. MUSCULOSKELETAL: No myagias/arthalgias. PSYCHIATRIC: The patient denies depression. NEUROLOGIC: No weakness Constitutional: other (sedated) Psych: no complaints Head: normocephalic ENMT: mucosa pink and moist, intubated Neck: supple, jvd (9 cm water) Respiratory: diminished breath sounds (at bases/B) Cardiovascular: irregular rhythm Gastrointestinal: soft, non-tender Musculoskeletal: muscle weakness (generalized) Extremities: edema (none) 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: other (sedated) Labs Result Diagram: 09/14/18 1131 09/14/18 1131 Results 24hrs Laboratory Tests Test 09/13/18 13:20 09/13/18 13:23 09/14/18 01:13 09/14/18 05:14 Bedside Glucose 162 144 130 Digoxin Level 0.8 L Test 09/14/18 09:38 09/14/18 11:31 Bedside Glucose 119 White Blood Count 11.4 H Red Blood Count 2.61 L Hemoglobin 7.4 L Hematocrit 23.0 L Mean Corpuscular 88.1 Volume Mean Corpuscular 28.4 L Hemoglobin Mean Corpuscular 32.2 Hemoglobin Concent Red Cell 18.3 H Distribution Width Platelet Count 320 Mean Platelet Volume 10.4 Immature 0.700 H Granulocytes % Neutrophils % 78.7 H Lymphocytes % 10.8 L Monocytes % 8.8 Eosinophils % 0.8 Basophils % 0.2 Nucleated Red Blood 0.0 Cells % Immature 0.080 H Granulocytes # Neutrophils # 9.0 H Lymphocytes # 1.2 Monocytes # 1.0 H Eosinophils # 0.1 Basophils # 0.0 Nucleated Red Blood 0.0 Cells # Sodium Level 147 H Potassium Level 3.5 Chloride Level 116 H Carbon Dioxide Level 24 Anion Gap 7 Blood Urea Nitrogen 93 H Creatinine 1.40 H Est Glomerular Filtrat Rate mL/min Glucose Level 132 Calcium Level 8.3 L Magnesium Level 2.2 Total Bilirubin 0.3 Direct Bilirubin 0.00 Indirect Bilirubin 0.3 Aspartate Amino 20 Transf (AST/SGOT) Alanine 20 Aminotransferase (AL T/SGPT) Alkaline Phosphatase 65 Total Protein 4.9 L Albumin 2.1 L Globulin 2.80 Albumin/Globulin 0.75 Ratio Medications Medications Current Medications Diltiazem HCl (Cardizem) 30 mg Q8 PO Last administered on 08/29/18at 21:47; Admin Dose 30 MG; Start 08/29/18 at 22:00; Status Hold Fentanyl 100 ml @ 2.5 mls/hr TITRATE IV Last administered on 09/14/18 03:57; Admin Dose 5 MLS/HR; Start 08/30/18 at 13:30 Atenolol (Tenormin) 12.5 mg BID NGT Last administered on 09/13/18 08:23; Admin Dose 12.5 MG; Start 08/30/18 at 21:00 Digoxin (Digoxin) 0.125 mg DAILY@13 NGT Last administered on 09/03/18 12:59; Admin Dose 0.125 MG; Start 08/30/18 at 13:00; Status Hold Ferrous Sulfate (Feosol Liquid Cup) 300 mg DAILY NGT Last administered on 09/14/18 09:39; Admin Dose 300 MG; Start 08/31/18 at 09:00 Lansoprazole (Prevacid) 30 mg DAILY@06 NGT Last administered on 09/14/18 05:14; Admin Dose 30 MG; Start 08/31/18 at 06:00 Docusate Sodium (Colace Liquid Cup) 100 mg BID PRN NGT CONSTIPATION Last administered on 08/30/18 23:46; Admin Dose 100 MG; Start 08/30/18 at 13:30 Midazolam HCl 50 ml @ 1 mls/hr TITRATE IV Last administered on 09/14/18 06:40; Admin Dose 7 MLS/HR; Start 09/01/18 at 11:00 Miscellaneous Information 1 ea NOTE XX ; Start 09/01/18 at 15:00 Glucose (Glutose) 15 gm Q15M PRN PO DECREASED GLUCOSE; Start 09/01/18 at 15:00 Glucose (Glutose) 22.5 gm Q15M PRN PO DECREASED GLUCOSE; Start 09/01/18 at 15:00 Dextrose (D50w Syringe) 25 ml Q15M PRN IV DECREASED GLUCOSE; Start 09/01/18 at 15:00 Dextrose (D50w Syringe) 50 ml Q15M PRN IV DECREASED GLUCOSE; Start 09/01/18 at 15:00 Glucagon (Glucagen) 1 mg Q15M PRN IM DECREASED GLUCOSE; Start 09/01/18 at 15:00 Glucose (Glutose) 15 gm Q15M PRN BUCCAL DECREASED GLUCOSE; Start 09/01/18 at 15:00 Insulin Aspart (Novolog Insulin Pen) NOVOLOG *MILD* ALGORI... Q4 SC Last administered on 09/14/18 01:15; Admin Dose 1 UNIT; Start 09/02/18 at 01:00 Albuterol (Ventolin Hfa) 2 puff Q6H RESP THERAPY INH Last administered on 09/14/18 08:12; Admin Dose 2 PUFF; Start 09/03/18 at 14:00 Ipratropium [place] (Atrovent Hfa) 2 puff Q6HWA RESP THERAPY INH Last administered on 09/14/18 08:13; Admin Dose 2 PUFF; Start 09/03/18 at 14:00 Ipratropium [place] (Atrovent Hfa) 2 puff Q6H RESP THERAPY PRN INH SHORTNESS OF BREATH Last administered on 09/14/18 01:47; Admin Dose 2 PUFF; Start 09/03/18 at 09:30 Albuterol (Ventolin Hfa) 2 puff Q6H RESP THERAPY PRN INH SHORTNESS OF BREATH; Start 09/03/18 at 09:30 IV Flush (NS 10 ml) 10 ml PRN PRN IV IV PROTOCOL; Start 09/05/18 at 17:00 Bisacodyl (Dulcolax Supp) 10 mg QHS [place] Last administered on 09/13/18 20:36; Admin Dose 10 MG; Start 09/07/18 at 11:30 Acetylcysteine (Mucomyst) 2 ml Q6H RESP THERAPY NEB Last administered on 09/14/18 08:16; Admin Dose 2 ML; Start 09/10/18 at 14:00 Scopolamine (Transderm-Scop) 1 patch Q72H TRANSDERM Last administered on 09/13/18 10:11; Admin Dose 1 PATCH; Start 09/10/18 at 11:00 Prednisone (Prednisone) 20 mg DAILY PO Last administered on 09/14/18 09:39; Admin Dose 20 MG; Start 09/11/18 at 09:00 Apixaban (Eliquis) 2.5 mg BID PO Last administered on 09/14/18 09:39; Admin Dose 2.5 MG; Start 09/11/18 at 12:00 Furosemide (Lasix) 40 mg DAILY IV Last administered on 09/13/18 08:35; Admin Dose 40 MG; Start 09/13/18 at 09:00 Phenylephrine HCl 250 ml @ 75 mls/hr TITRATE IV Last administered on 09/13/18at 22:53; Admin Dose 15 MLS/HR; Start 09/13/18 at 17:00 Propofol 100 ml @ 2.073 mls/ hr Q12H IV Last administered on 09/13/18at 22:24; Admin Dose 2.073 MLS/HR; Start 09/13/18 at 22:30 CECE LOPEZ Sep 14, 2018 13:21
[2018-09-14] MEDS ORDERED: POTASSIUM CHLORIDE 100 ML IVPB ONE (13:30)
--- NOTE | 2018-09-14 13:56 | PN ---
DATE: 09/14/2018 SUBJECTIVE: Chart reviewed. Events noted. The patient remains on the ventilator, saturating 99%. PHYSICAL EXAMINATION: VITAL SIGNS: Blood pressure 92/77, pulse 49, respirations 16, temperature is 97.5. HEENT: Pupils are equal and react to light, orally intubated. NECK: Supple, no JVD noted, no cervical adenopathy noted. LUNGS: Few scattered rhonchi. CARDIOVASCULAR: S1, S2 normal. ABDOMEN: Soft, nontender, no megaly or masses noted. EXTREMITIES: No clubbing or cyanosis noted. 1+ edema present. NEUROLOGIC: No changes. LABORATORY DATA: WBC 11.4, hemoglobin 7.4, hematocrit 23, platelets 320. Sodium 147, potassium 3.5, chloride 116, CO2 24, BUN 93, creatinine 1.4, glucose 132. Chest x-ray shows persistent left basila r atelectasis and bilateral pleural effusion. IMPRESSION: 1. Acute respiratory failure, failed weaning attempts in the past. 2. History of lung cancer. 3. Advanced chronic obstructive pulmonary disease. 4. Possible aspiration pneumonia. 5. Septic shock. 6. Chronic kidney disease. RECOMMENDATIONS: 1. Continue vent support for now. 2. Continue antibiotics. 3. Bronchodilators. 4. Steroids. 5. Consultants noted. 6. Likely will need a tracheostomy. Above discussed with the staff. Dictated By: DARLING HOLLEY MD, MA/JACQUELINE Conf#: [id number] DID#: [id number] CC: KARLEY DEAN MD; JEFFRY CASTILLO MD;*End*
--- NOTE | 2018-09-14 14:00 | CONS ---
Assessment/Plan Assessment/Plan Hospital Course (Demo Recall) Patient remains unchanged, comfortable on vent, no fevers WBC 11.4 platelets 220 neutrophils 78.7 BUN 93 creatinine 1.40 CXR revealed persistent left basilar atelectasis and bilateral pleural effusions left greater than right Antimicrobials: None Indwelling: Endotracheal tube NG tube Bar catheter right femoral triple-lumen catheter Physical examination: Chronically ill appearing wasted elderly man who is intubated sedated in no distress. Head atraumatic normocephalic neck is supple chest rise symmetrical breath sounds diminished bases heart S1-S2 abdomen soft bowel sounds hypoactive extremities without cyanosis Assessment: 1. Severe sepsis on admission status post shock 2. Acute hypoxemic respiratory failure possibly aspiration 3. Multilobar pneumonia 4. COPD 5. History of lung cancer status post radiation, details unknown 6. Atrial fibrillation status post RVR 7. Bacteremia, cw contaminant Plan: Remains unchanged, stable off antibiotics, continue vent management per pulmonary, reculture for T101 Consultation Date/Type/Reason Admit Date/Time Aug 29, 2018 at 18:56 Initial Consult Date Type of Consult id Requesting Provider: KARLEY DEAN MD Date/Time of Note DATE: 09/14/18 TIME: 13:59 Exam/Review of Systems Exam Vitals Vital Signs Date Temp Pulse Resp B/P (MAP) Pulse Ox O2 O2 Flow FiO2 Time Delivery Rate 09/14/18 52 18 99 30 13:08 09/14/18 97.5 92/37 (55) Mechanical 12:00 Ventilator Intake and Output 09/13/18 09/13/18 09/14/18 1515:00 23:00 07:00 IntakeIntake Total 939 ml 1673 ml 1086.834 ml OutputOutput Total 1075 ml 900 ml 502 ml BalanceBalance -136 ml 773 ml 584.834 ml Results Result Diagram: 09/14/18 1131 09/14/18 1131 Results 24hrs Laboratory Tests Test 09/14/18 01:13 09/14/18 05:14 09/14/18 09:38 09/14/18 11:31 Bedside Glucose 144 130 119 White Blood Count 11.4 H Red Blood Count 2.61 L Hemoglobin 7.4 L Hematocrit 23.0 L Mean Corpuscular 88.1 Volume Mean Corpuscular 28.4 L Hemoglobin Mean Corpuscular 32.2 Hemoglobin Concent Red Cell 18.3 H Distribution Width Platelet Count 320 Mean Platelet Volume 10.4 Immature 0.700 H Granulocytes % Neutrophils % 78.7 H Lymphocytes % 10.8 L Monocytes % 8.8 Eosinophils % 0.8 Basophils % 0.2 Nucleated Red Blood 0.0 Cells % Immature 0.080 H Granulocytes # Neutrophils # 9.0 H Lymphocytes # 1.2 Monocytes # 1.0 H Eosinophils # 0.1 Basophils # 0.0 Nucleated Red Blood 0.0 Cells # Sodium Level 147 H Potassium Level 3.5 Chloride Level 116 H Carbon Dioxide Level 24 Anion Gap 7 Blood Urea Nitrogen 93 H Creatinine 1.40 H Est Glomerular Filtrat Rate mL/min Glucose Level 132 Calcium Level 8.3 L Magnesium Level 2.2 Total Bilirubin 0.3 Direct Bilirubin 0.00 Indirect Bilirubin 0.3 Aspartate Amino 20 Transf (AST/SGOT) Alanine 20 Aminotransferase (AL T/SGPT) Alkaline Phosphatase 65 Total Protein 4.9 L Albumin 2.1 L Globulin 2.80 Albumin/Globulin 0.75 Ratio Test 09/14/18 13:19 Bedside Glucose 112 Medications Medication Current Medications Diltiazem HCl (Cardizem) 30 mg Q8 PO Last administered on 08/29/18 21:47; Admin Dose 30 MG; Start 08/29/18 at 22:00; Status Hold Fentanyl 100 ml @ 2.5 mls/hr TITRATE IV Last administered on 09/14/18 03:57; Admin Dose 5 MLS/HR; Start 08/30/18 at 13:30 Atenolol (Tenormin) 12.5 mg BID NGT Last administered on 09/13/18 08:23; Admin Dose 12.5 MG; Start 08/30/18 at 21:00; Status Hold Digoxin (Digoxin) 0.125 mg DAILY@13 NGT Last administered on 09/03/18 12:59; Admin Dose 0.125 MG; Start 08/30/18 at 13:00; Status Hold Ferrous Sulfate (Feosol Liquid Cup) 300 mg DAILY NGT Last administered on 09/14/18 09:39; Admin Dose 300 MG; Start 08/31/18 at 09:00 Lansoprazole (Prevacid) 30 mg DAILY@06 NGT Last administered on 09/14/18 05:14; Admin Dose 30 MG; Start 08/31/18 at 06:00 Docusate Sodium (Colace Liquid Cup) 100 mg BID PRN NGT CONSTIPATION Last administered on 08/30/18 23:46; Admin Dose 100 MG; Start 08/30/18 at 13:30 Midazolam HCl 50 ml @ 1 mls/hr TITRATE IV Last administered on 09/14/18 06:40; Admin Dose 7 MLS/HR; Start 09/01/18 at 11:00 Miscellaneous Information 1 ea NOTE XX ; Start 09/01/18 at 15:00 Glucose (Glutose) 15 gm Q15M PRN PO DECREASED GLUCOSE; Start 09/01/18 at 15:00 Glucose (Glutose) 22.5 gm Q15M PRN PO DECREASED GLUCOSE; Start 09/01/18 at 15:00 Dextrose (D50w Syringe) 25 ml Q15M PRN IV DECREASED GLUCOSE; Start 09/01/18 at 15:00 Dextrose (D50w Syringe) 50 ml Q15M PRN IV DECREASED GLUCOSE; Start 09/01/18 at 15:00 Glucagon (Glucagen) 1 mg Q15M PRN IM DECREASED GLUCOSE; Start 09/01/18 at 15:00 Glucose (Glutose) 15 gm Q15M PRN BUCCAL DECREASED GLUCOSE; Start 09/01/18 at 15:00 Insulin Aspart (Novolog Insulin Pen) NOVOLOG *MILD* ALGORI... Q4 SC Last administered on 09/14/18 01:15; Admin Dose 1 UNIT; Start 09/02/18 at 01:00 Albuterol (Ventolin Hfa) 2 puff Q6H RESP THERAPY INH Last administered on 09/14/18 08:12; Admin Dose 2 PUFF; Start 09/03/18 at 14:00 Ipratropium [place] (Atrovent Hfa) 2 puff Q6HWA RESP THERAPY INH Last administ ered on 09/14/18 08:13; Admin Dose 2 PUFF; Start 09/03/18 at 14:00 Ipratropium [place] (Atrovent Hfa) 2 puff Q6H RESP THERAPY PRN INH SHORTNESS OF BREATH Last administered on 09/14/18 01:47; Admin Dose 2 PUFF; Start 09/03/18 at 09:30 Albuterol (Ventolin Hfa) 2 puff Q6H RESP THERAPY PRN INH SHORTNESS OF BREATH; Start 09/03/18 at 09:30 IV Flush (NS 10 ml) 10 ml PRN PRN IV IV PROTOCOL; Start 09/05/18 at 17:00 Bisacodyl (Dulcolax Supp) 10 mg QHS [place] Last administered on 09/13/18 20:36; Admin Dose 10 MG; Start 09/07/18 at 11:30 Acetylcysteine (Mucomyst) 2 ml Q6H RESP THERAPY NEB Last administered on 09/14/18 08:16; Admin Dose 2 ML; Start 09/10/18 at 14:00 Scopolamine (Transderm-Scop) 1 patch Q72H TRANSDERM Last administered on 09/13/18 10:11; Admin Dose 1 PATCH; Start 09/10/18 at 11:00 Prednisone (Prednisone) 20 mg DAILY PO Last administered on 09/14/18 09:39; Admin Dose 20 MG; Start 09/11/18 at 09:00 Apixaban (Eliquis) 2.5 mg BID PO Last administered on 09/14/18 09:39; Admin Dose 2.5 MG; Start 09/11/18 at 12:00 Furosemide (Lasix) 40 mg DAILY IV Last administered on 09/14/18 13:20; Admin Dose 40 MG; Start 09/13/18 at 09:00 Phenylephrine HCl 250 ml @ 75 mls/hr TITRATE IV Last administered on 09/13/18 22:53; Admin Dose 15 MLS/HR; Start 09/13/18 at 17:00 Propofol 100 ml @ 2.073 mls/ hr Q12H IV Last administered on 09/13/18 22:24; Admin Dose 2.073 MLS/HR; Start 09/13/18 at 22:30 Potassium Chloride 100 ml @ 50 mls/hr ONCE ONCE IVPB Last administered on 09/14/18 13:43; Admin Dose 50 MLS/HR; Start 09/14/18 at 13:30; Stop 09/14/18 at 15:29 SUZANNE DANIELS NP Sep 14, 2018 14:00
--- NOTE | 2018-09-14 14:58 | PN ---
Date/Time of Note Date/Time of Note DATE: 09/14/18 TIME: 14:54 Assessment/Plan VTE Prophylaxis Risk score (from Ns)>0 risk: 15 [place] [facility] [place] Pharmacological prophylaxis: apixaban Lines/Catheters IV Catheter Type (from Nrs): PICC Line Central line still needed: Yes Urinary Cath still in place: Yes Reason Cath still needed: urinary retention Assessment/Plan Hospital Course 1 Septic shock likely due to sepsis /pneumonia . Off pressors 2. ALOC, lethargic. Now sedated follows commands off sedation 3. Atrial fibrillation, now flutter, controlled 4. Hypoxic respiratory failure. Respiratory acidosis, resolved. 5. Bilateral pneumonia 6. Congestive heart failure, EF 35 to 40%, 7. Hx of right side lung cancer 8. JAMES on chronic kidney disease, creatinine baseline 1.6. With elevated BUN and creatinine ratio likely ATN secondary to septic shock now Cr downtrending however BUN still high, Good UOP 9. Hx of pleural effusions, right and left and numerous thoracentesis. Now left pleural effusion on chest xray 10. Bilateral pleural effusion 11. Hx of hypertension, now on BP support 12. Hyperlipidemia 13 + bacteremia however new bld cx neg 14 Hypernatremia likely hypovolemic , resolved 15. Anemia Assessment/Plan -Sunday possible terminal extubation -Not weanable yet per pulmonary, will follow with pulmonary recommendations if not able to come out of the ventilator terminal extubation -skin care -c/w ICU care -off a/b -Scopolamine patch for secretions -pulmonary consult dr Guajardo appreciated -orally intubated 30 % -Cardiology consult dr Hall -DVT proph. Eliquiz 5 g GT BID -GI proph. Protonix GT Result Diagram: 09/14/18 1131 09/14/18 1131 Results 24hrs Laboratory Tests Test 09/14/18 01:13 09/14/18 05:14 09/14/18 09:38 09/14/18 11:31 Bedside Glucose 144 130 119 White Blood Count 11.4 H Red Blood Count 2.61 L Hemoglobin 7.4 L Hematocrit 23.0 L Mean Corpuscular 88.1 Volume Mean Corpuscular 28.4 L Hemoglobin Mean Corpuscular 32.2 Hemoglobin Concent Red Cell 18.3 H Distribution Width Platelet Count 320 Mean Platelet Volume 10.4 Immature 0.700 H Granulocytes % Neutrophils % 78.7 H Lymphocytes % 10.8 L Monocytes % 8.8 Eosinophils % 0.8 Basophils % 0.2 Nucleated Red Blood 0.0 Cells % Immature 0.080 H Granulocytes # Neutrophils # 9.0 H Lymphocytes # 1.2 Monocytes # 1.0 H Eosinophils # 0.1 Basophils # 0.0 Nucleated Red Blood 0.0 Cells # Sodium Level 147 H Potassium Level 3.5 Chloride Level 116 H Carbon Dioxide Level 24 Anion Gap 7 Blood Urea Nitrogen 93 H Creatinine 1.40 H Est Glomerular Filtrat Rate mL/min Glucose Level 132 Calcium Level 8.3 L Magnesium Level 2.2 Total Bilirubin 0.3 Direct Bilirubin 0.00 Indirect Bilirubin 0.3 Aspartate Amino 20 Transf (AST/SGOT) Alanine 20 Aminotransferase (AL T/SGPT) Alkaline Phosphatase 65 Total Protein 4.9 L Albumin 2.1 L Globulin 2.80 Albumin/Globulin 0.75 Ratio Test 09/14/18 13:19 Bedside Glucose 112 Subjective 24 Hr Interval Summary Subjective hx not possible: pt critical status Exam/Review of Systems Exam Vitals Vital Signs Date Temp Pulse Resp B/P (MAP) Pulse Ox O2 O2 Flow FiO2 Time Delivery Rate 09/14/18 66 19 125/49 100 Mechanical 14:00 (74) Ventilator 09/14/18 30 13:08 09/14/18 97.5 12:00 Intake and Output 09/13/18 09/13/18 09/14/18 1515:00 23:00 07:00 IntakeIntake Total 939 ml 1673 ml 1126.834 ml OutputOutput Total 1075 ml 900 ml 552 ml BalanceBalance -136 ml 773 ml 574.834 ml Constitutional: non-verbal, frail Head: normocephalic Neck: supple Respiratory: crackles/rales, diminished breath sounds Cardiovascular: regular rate and rhythm, other (elizabeth) Gastrointestinal: soft Skin: other (pale) Results Results 24hrs Laboratory Tests Test 09/14/18 01:13 09/14/18 05:14 09/14/18 09:38 09/14/18 11:31 Bedside Glucose 144 130 119 White Blood Count 11.4 H Red Blood Count 2.61 L Hemoglobin 7.4 L Hematocrit 23.0 L Mean Corpuscular 88.1 Volume Mean Corpuscular 28.4 L Hemoglobin Mean Corpuscular 32.2 Hemoglobin Concent Red Cell 18.3 H Distribution Width Platelet Count 320 Mean Platelet Volume 10.4 Immature 0.700 H Granulocytes % Neutrophils % 78.7 H Lymphocytes % 10.8 L Monocytes % 8.8 Eosinophils % 0.8 Basophils % 0.2 Nucleated Red Blood 0.0 Cells % Immature 0.080 H Granulocytes # Neutrophils # 9.0 H Lymphocytes # 1.2 Monocytes # 1.0 H Eosinophils # 0.1 Basophils # 0.0 Nucleated Red Blood 0.0 Cells # Sodium Level 147 H Potassium Level 3.5 Chloride Level 116 H Carbon Dioxide Level 24 Anion Gap 7 Blood Urea Nitrogen 93 H Creatinine 1.40 H Est Glomerular Filtrat Rate mL/min Glucose Level 132 Calcium Level 8.3 L Magnesium Level 2.2 Total Bilirubin 0.3 Direct Bilirubin 0.00 Indirect Bilirubin 0.3 Aspartate Amino 20 Transf (AST/SGOT) Alanine 20 Aminotransferase (AL T/SGPT) Alkaline Phosphatase 65 Total Protein 4.9 L Albumin 2.1 L Globulin 2.80 Albumin/Globulin 0.75 Ratio Test 09/14/18 13:19 Bedside Glucose 112 Medications Medication Current Medications Diltiazem HCl (Cardizem) 30 mg Q8 PO Last administered on 08/29/18 21:47; Admin Dose 30 MG; Start 08/29/18 at 22:00; Status Hold Fentanyl 100 ml @ 2.5 mls/hr TITRATE IV Last administered on 09/14/18 03:57; Admin Dose 5 MLS/HR; Start 08/30/18 at 13:30 Atenolol (Tenormin) 12.5 mg BID NGT Last administered on 09/13/18 08:23; Admin Dose 12.5 MG; Start 08/30/18 at 21:00; Status Hold Digoxin (Digoxin) 0.125 mg DAILY@13 NGT Last administered on 09/03/18 12:59; Admin Dose 0.125 MG; Start 08/30/18 at 13:00; Status Hold Ferrous Sulfate (Feosol Liquid Cup) 300 mg DAILY NGT Last administered on 09/14/18 09:39; Admin Dose 300 MG; Start 08/31/18 at 09:00 Lansoprazole (Prevacid) 30 mg DAILY@06 NGT Last administered on 09/14/18 05:14; Admin Dose 30 MG; Start 08/31/18 at 06:00 Docusate Sodium (Colace Liquid Cup) 100 mg BID PRN NGT CONSTIPATION Last administered on 08/30/18at 23:46; Admin Dose 100 MG; Start 08/30/18 at 13:30 Midazolam HCl 50 ml @ 1 mls/hr TITRATE IV Last administered on 09/14/18at 06:40; Admin Dose 7 MLS/HR; Start 09/01/18 at 11:00 Miscellaneous Information 1 ea NOTE XX ; Start 09/01/18 at 15:00 Glucose (Glutose) 15 gm Q15M PRN PO DECREASED GLUCOSE; Start 09/01/18 at 15:00 Glucose (Glutose) 22.5 gm Q15M PRN PO DECREASED GLUCOSE; Start 09/01/18 at 15:00 Dextrose (D50w Syringe) 25 ml Q15M PRN IV DECREASED GLUCOSE; Start 09/01/18 at 15:00 Dextrose (D50w Syringe) 50 ml Q15M PRN IV DECREASED GLUCOSE; Start 09/01/18 at 15:00 Glucagon (Glucagen) 1 mg Q15M PRN IM DECREASED GLUCOSE; Start 09/01/18 at 15:00 Glucose (Glutose) 15 gm Q15M PRN BUCCAL DECREASED GLUCOSE; Start 09/01/18 at 15:00 Insulin Aspart (Novolog Insulin Pen) NOVOLOG *MILD* ALGORI... Q4 SC Last administered on 09/14/18at 01:15; Admin Dose 1 UNIT; Start 09/02/18 at 01:00 Albuterol (Ventolin Hfa) 2 puff Q6H RESP THERAPY INH Last administered on 09/14/18at 08:12; Admin Dose 2 PUFF; Start 09/03/18 at 14:00 Ipratropium [place] (Atrovent Hfa) 2 puff Q6HWA RESP THERAPY INH Last administered on 09/14/18 08:13; Admin Dose 2 PUFF; Start 09/03/18 at 14:00 Ipratropium [place] (Atrovent Hfa) 2 puff Q6H RESP THERAPY PRN INH SHORTNESS OF BREATH Last administered on 09/14/18at 01:47; Admin Dose 2 PUFF; Start 09/03/18 at 09:30 Albuterol (Ventolin Hfa) 2 puff Q6H RESP THERAPY PRN INH SHORTNESS OF BREATH; Start 09/03/18 at 09:30 IV Flush (NS 10 ml) 10 ml PRN PRN IV IV PROTOCOL; Start 09/05/18 at 17:00 Bisacodyl (Dulcolax Supp) 10 mg QHS [place] Last administered on 09/13/18 20:36; Admin Dose 10 MG; Start 09/07/18 at 11:30 Acetylcysteine (Mucomyst) 2 ml Q6H RESP THERAPY NEB Last administered on 09/14/18 08:16; Admin Dose 2 ML; Start 09/10/18 at 14:00 Scopolamine (Transderm-Scop) 1 patch Q72H TRANSDERM Last administered on 09/13/18 10:11; Admin Dose 1 PATCH; Start 09/10/18 at 11:00 Prednisone (Prednisone) 20 mg DAILY PO Last administered on 09/14/18 09:39; Admin Dose 20 MG; Start 09/11/18 at 09:00 Apixaban (Eliquis) 2.5 mg BID PO Last administered on 09/14/18 09:39; Admin Dose 2.5 MG; Start 09/11/18 at 12:00 Furosemide (Lasix) 40 mg DAILY IV Last administered on 09/14/18 13:20; Admin Dose 40 MG; Start 09/13/18 at 09:00 Phenylephrine HCl 250 ml @ 75 mls/hr TITRATE IV Last administered on 09/13/18 22:53; Admin Dose 15 MLS/HR; Start 09/13/18 at 17:00 Propofol 100 ml @ 2.073 mls/ hr Q12H IV Last administered on 09/13/18 22:24; Admin Dose 2.073 MLS/HR; Start 09/13/18 at 22:30 Potassium Chloride 100 ml @ 50 mls/hr ONCE ONCE IVPB Last administered on 09/14/18 13:43; Admin Dose 50 MLS/HR; Start 09/14/18 at 13:30; Stop 09/14/18 at 15:29 JASPER SAHU Sep 14, 2018 14:57
[2018-09-14] MEDS: BISACODYL 10 MG SUPP PR SCH (21:09)
[2018-09-15] VITALS (72 sets, daily range): BP systolic 83–134; BP diastolic 37–112; PULSE 64–86; RESP 16–30
[2018-09-15] MEDS: INSULIN ASPART [NOVOLOG] 3 ML PEN SC SCH ×6 (00:58→21:00)
[2018-09-15] MEDS: ACETYLCYSTEINE 20% 4 ML VIAL NEB SCH ×4 (01:19→19:45)
[2018-09-15] MEDS: ALBUTEROL HFA 8 GM INHALER INH SCH ×4 (01:20→19:45)
[2018-09-15] MEDS: FENTAnyl (DRIP) 1000 mcg/100mL 100 ML IV SCH ×2 (01:55→15:45)
[2018-09-15] MEDS: PROPOFOL 100 ML IV SCH ×2 (04:14→16:42)
[2018-09-15] MEDS: LANSOPRAZOLE 30 MG CAP NGT SCH (05:04)
[2018-09-15] MEDS: APIXABAN 5 MG TABLET PO SCH ×2 (08:40→22:04)
[2018-09-15] MEDS: FERROUS SULFATE 60 MG/ML 5ML CUP NGT SCH (08:40)
[2018-09-15] MEDS: predniSONE 20 MG TAB PO SCH (08:40)
[2018-09-15] MEDS: FUROSEMIDE 40 MG INJ IV SCH (08:40)
[2018-09-15] MEDS: IPRATROPIUM (HFA) 12.9 GM INHALER INH SCH ×3 (08:52→19:45)
--- NOTE | 2018-09-15 12:32 | CONS ---
Assessment/Plan Assessment/Plan Hospital Course (Demo Recall) IMPRESSION: 1. Atrial fibrillation-now with some SVR to mid 30's, pause 2 seconds 2. Congestive heart failure exacerbation, diastolic by most recent echo in July 2018 revealing a preserved EF of 65%, acute on chronic by history. 3. Hypotension-borderline now off pressors 4. Respiratory distress. 5. Shortness of breath, likely multifactorial secondary to heart failure and chronic obstructive pulmonary disease exacerbation. 6. Probable chronic obstructive pulmonary disease exacerbation. 7. Pneumonia, right lower lobe by chest x-ray, new since discharge, question aspiration. 8. Hypernatremia. 9. Leukocytosis-persistent but decreasing 10. Anemia, mild. 11. Coagulopathy, likely secondary to baseline Eliquis. 12. ARF-ongoing 14. WCT-colinley c/w PAFL with abberancy given NL EF and patient already in AF with neg trop's. Less likley NSVT REcc: -ICU -holding digoxin and atenolol given borderline bradycardia and hypotension with improvement in both now with holding -Continue eliquis -s/p course of abx, f/u cx data -Continue steroids/bronchodilators -Follow volume status closely and would continue gentle lasix diuresis daily -wean vent as tolerated with possible progression to terminal extubation if unable to wean Consultation Date/Type/Reason Admit Date/Time Aug 29, 2018 at 18:56 Initial Consult Date 08/29/18 Type of Consult Cardiology Reason for Consultation AF/AFL Requesting Provider: KARLEY DEAN MD Date/Time of Note DATE: 09/15/18 TIME: 12:27 Exam/Review of Systems Vital Signs Vitals Vital Signs Date Temp Pulse Resp B/P (MAP) Pulse Ox O2 O2 Flow FiO2 Time Delivery Rate 09/15/18 85 29 95/44 (61) 100 11:30 09/15/18 30 11:12 09/15/18 Mechanical 11:00 Ventilator 09/15/18 98.5 08:00 Intake and Output 09/14/18 09/14/18 09/15/18 1515:00 23:00 07:00 IntakeIntake Total 1159.752 ml 1162.971 ml 1157.752 ml OutputOutput Total 725 ml 720 ml 430 ml BalanceBalance 434.752 ml 442.971 ml 727.752 ml Exam Exam Review of Systems: CONSTITUTIONAL: No fevers, chills. PULMONARY:intubated CARDIOVASCULAR: No obvious chest pain/palpitations GASTROINTESTINAL: No nausea/vomiting. GENITOURINARY: No hematuria/dysuria. MUSCULOSKELETAL: No myagias/arthalgias. PSYCHIATRIC: The patient denies depression. NEUROLOGIC: sedated Constitutional: other (sedated) Head: normocephalic ENMT: intubated Neck: supple, jvd (9 cm water) Respiratory: other (upper airway rhoncherous sounds) Cardiovascular: irregular rhythm Gastrointestinal: soft, non-tender Musculoskeletal: muscle weakness (generalizef) Extremities: edema (none) 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: other (sedated) Labs Result Diagram: 09/15/18 0410 09/15/18 0410 Results 24hrs Laboratory Tests Test 09/14/18 13:19 09/14/18 16:40 09/14/18 21:03 09/15/18 00:55 Bedside Glucose 112 121 138 148 Test 09/15/18 04:10 09/15/18 05:01 09/15/18 07:15 09/15/18 08:39 White Blood Count 10.4 Red Blood Count 2.61 L Hemoglobin 7.5 L Hematocrit 23.3 L Mean Corpuscular 89.3 Volume Mean Corpuscular 28.7 L Hemoglobin Mean Corpuscular 32.2 Hemoglobin Concent Red Cell 18.2 H Distribution Width Platelet Count 322 Mean Platelet Volume 11.1 H Immature 0.600 H Granulocytes % Neutrophils % 80.0 H Lymphocytes % 10.9 L Monocytes % 7.9 Eosinophils % 0.5 Basophils % 0.1 Nucleated Red Blood 0.0 Cells % Immature 0.060 H Granulocytes # Neutrophils # 8.3 H Lymphocytes # 1.1 Monocytes # 0.8 Eosinophils # 0.1 Basophils # 0.0 Nucleated Red Blood 0.0 Cells # Sodium Level 141 Potassium Level 4.0 Chloride Level 111 H Carbon Dioxide Level 23 Anion Gap 7 Blood Urea Nitrogen 92 H Creatinine 1.33 H Est Glomerular Filtrat Rate mL/min Glucose Level 111 Calcium Level 8.2 L Total Bilirubin 0.2 Direct Bilirubin 0.00 Indirect Bilirubin 0.2 Aspartate Amino 17 Transf (AST/SGOT) Alanine 23 Aminotransferase (AL T/SGPT) Alkaline Phosphatase 67 Total Protein 4.6 L Albumin 2.1 L Globulin 2.50 Albumin/Globulin 0.84 Ratio Bedside Glucose 144 122 Magnesium Level 2.0 Test 09/15/18 12:15 Bedside Glucose 144 Medications Medications Current Medications Diltiazem HCl (Cardizem) 30 mg Q8 PO Last administered on 08/29/18 21:47; Admin Dose 30 MG; Start 08/29/18 at 22:00; Status Hold Fentanyl 100 ml @ 2.5 mls/hr TITRATE IV Last administered on 09/15/18 01:55; Admin Dose 5 MLS/HR; Start 08/30/18 at 13:30 Atenolol (Tenormin) 12.5 mg BID NGT Last administered on 09/13/18 08:23; Admin Dose 12.5 MG; Start 08/30/18 at 21:00; Status Hold Digoxin (Digoxin) 0.125 mg DAILY@13 NGT Last administered on 09/03/18 12:59; Admin Dose 0.125 MG; Start 08/30/18 at 13:00; Status Hold Ferrous Sulfate (Feosol Liquid Cup) 300 mg DAILY NGT Last administered on 09/15/18 08:40; Admin Dose 300 MG; Start 08/31/18 at 09:00 Lansoprazole (Prevacid) 30 mg DAILY@06 NGT Last administered on 09/15/18 05:04; Admin Dose 30 MG; Start 08/31/18 at 06:00 Docusate Sodium (Colace Liquid Cup) 100 mg BID PRN NGT CONSTIPATION Last administered on 08/30/18 23:46; Admin Dose 100 MG; Start 08/30/18 at 13:30 Midazolam HCl 50 ml @ 1 mls/hr TITRATE IV Last administered on 09/14/18 19:40; Admin Dose 8 MLS/HR; Start 09/01/18 at 11:00 Miscellaneous Information 1 ea NOTE XX ; Start 09/01/18 at 15:00 Glucose (Glutose) 15 gm Q15M PRN PO DECREASED GLUCOSE; Start 09/01/18 at 15:00 Glucose (Glutose) 22.5 gm Q15M PRN PO DECREASED GLUCOSE; Start 09/01/18 at 15:00 Dextrose (D50w Syringe) 25 ml Q15M PRN IV DECREASED GLUCOSE; Start 09/01/18 at 15:00 Dextrose (D50w Syringe) 50 ml Q15M PRN IV DECREASED GLUCOSE; Start 09/01/18 at 15:00 Glucagon (Glucagen) 1 mg Q15M PRN IM DECREASED GLUCOSE; Start 09/01/18 at 15:00 Glucose (Glutose) 15 gm Q15M PRN BUCCAL DECREASED GLUCOSE; Start 09/01/18 at 15:00 Insulin Aspart (Novolog Insulin Pen) NOVOLOG *MILD* ALGORI... Q4 SC Last administered on 09/15/18 05:03; Admin Dose 1 UNIT; Start 09/02/18 at 01:00 Albuterol (Ventolin Hfa) 2 puff Q6H RESP THERAPY INH Last administered on 09/15/18 08:52; Admin Dose 2 PUFF; Start 09/03/18 at 14:00 Ipratropium [place] (Atrovent Hfa) 2 puff Q6HWA RESP THERAPY INH Last administered on 09/15/18 08:52; Admin Dose 2 PUFF; Start 09/03/18 at 14:00 Ipratropium [place] (Atrovent Hfa) 2 puff Q6H RESP THERAPY PRN INH SHORTNESS OF BREATH Last administered on 09/14/18at 01:47; Admin Dose 2 PUFF; Start 09/03/18 at 09:30 Albuterol (Ventolin Hfa) 2 puff Q6H RESP THERAPY PRN INH SHORTNESS OF BREATH; Start 09/03/18 at 09:30 IV Flush (NS 10 ml) 10 ml PRN PRN IV IV PROTOCOL; Start 09/05/18 at 17:00 Bisacodyl (Dulcolax Supp) 10 mg QHS [place] Last administered on 09/14/18at 21:09; Admin Dose 10 MG; Start 09/07/18 at 11:30 Acetylcysteine (Mucomyst) 2 ml Q6H RESP THERAPY NEB Last administered on 09/15/18at 08:53; Admin Dose 2 ML; Start 09/10/18 at 14:00 Scopolamine (Transderm-Scop) 1 patch Q72H TRANSDERM Last administered on 09/13/18at 10:11; Admin Dose 1 PATCH; Start 09/10/18 at 11:00 Prednisone (Prednisone) 20 mg DAILY PO Last administered on 09/15/18at 08:40; Admin Dose 20 MG; Start 09/11/18 at 09:00 Apixaban (Eliquis) 2.5 mg BID PO Last administered on 09/15/18 08:40; Admin Dose 2.5 MG; Start 09/11/18 at 12:00 Furosemide (Lasix) 40 mg DAILY IV Last administered on 09/15/18at 08:40; Admin Dose 40 MG; Start 09/13/18 at 09:00 Phenylephrine HCl 250 ml @ 75 mls/hr TITRATE IV Last administered on 09/13/18at 22:53; Admin Dose 15 MLS/HR; Start 09/13/18 at 17:00 Propofol 100 ml @ 2.073 mls/ hr Q12H IV Last administered on 09/15/18 04:14; Admin Dose 6.219 MLS/HR; Start 09/13/18 at 22:30 CECE LOPEZ Sep 15, 2018 12:31
--- NOTE | 2018-09-15 13:43 | PN ---
Date/Time of Note Date/Time of Note DATE: 09/15/18 TIME: 13:41 Assessment/Plan VTE Prophylaxis Risk score (from Ns)>0 risk: 15 SCD applied (from Ns): Yes Pharmacological prophylaxis: apixaban Lines/Catheters IV Catheter Type (from Nrsg): PICC Line Central line still needed: Yes Urinary Cath still in place: Yes Reason Cath still needed: urinary retention Assessment/Plan Hospital Course 1 Septic shock likely due to sepsis /pneumonia . Off pressors 2. ALOC, lethargic. Now sedated follows commands off sedation 3. Atrial fibrillation, now flutter, controlled 4. Hypoxic respiratory failure. Respiratory acidosis, resolved. 5. Bilateral pneumonia 6. Congestive heart failure, EF 35 to 40%, 7. Hx of right side lung cancer 8. JAMES on chronic kidney disease, creatinine baseline 1.6. With elevated BUN and creatinine ratio likely ATN secondary to septic shock now Cr downtrending however BUN still high, Good UOP 9. Hx of pleural effusions, right and left and numerous thoracentesis. Now left pleural effusion on chest xray 10. Bilateral pleural effusion 11. Hx of hypertension, now on BP support 12. Hyperlipidemia 13 + bacteremia however new bld cx neg 14 Hypernatremia likely hypovolemic , resolved 15. Anemia Assessment/Plan -Sunday possible terminal extubation -Not weanable yet per pulmonary, will follow with pulmonary recommendations if not able to come out of the ventilator terminal extubation -skin care -c/w ICU care -off a/b -on pressor -Scopolamine patch for secretions -pulmonary consult dr Guajardo appreciated -orally intubated 30 % -Cardiology consult dr Hall -DVT proph. Eliquiz 5 g GT BID -GI proph. Protonix GT Result Diagram: 09/15/1840909/15/18409 Results 24hrs Laboratory Tests Test 09/14/18 16:40 09/14/18 21:03 09/15/18 00:55 09/15/18 04:10 Bedside Glucose 121 138 148 White Blood Count 10.4 Red Blood Count 2.61 L Hemoglobin 7.5 L Hematocrit 23.3 L Mean Corpuscular 89.3 Volume Mean Corpuscular 28.7 L Hemoglobin Mean Corpuscular 32.2 Hemoglobin Concent Red Cell 18.2 H Distribution Width Platelet Count 322 Mean Platelet Volume 11.1 H Immature 0.600 H Granulocytes % Neutrophils % 80.0 H Lymphocytes % 10.9 L Monocytes % 7.9 Eosinophils % 0.5 Basophils % 0.1 Nucleated Red Blood 0.0 Cells % Immature 0.060 H Granulocytes # Neutrophils # 8.3 H Lymphocytes # 1.1 Monocytes # 0.8 Eosinophils # 0.1 Basophils # 0.0 Nucleated Red Blood 0.0 Cells # Sodium Level 141 Potassium Level 4.0 Chloride Level 111 H Carbon Dioxide Level 23 Anion Gap 7 Blood Urea Nitrogen 92 H Creatinine 1.33 H Est Glomerular Filtrat Rate mL/min Glucose Level 111 Calcium Level 8.2 L Total Bilirubin 0.2 Direct Bilirubin 0.00 Indirect Bilirubin 0.2 Aspartate Amino 17 Transf (AST/SGOT) Alanine 23 Aminotransferase (AL T/SGPT) Alkaline Phosphatase 67 Total Protein 4.6 L Albumin 2.1 L Globulin 2.50 Albumin/Globulin 0.84 Ratio Test 09/15/18 05:01 09/15/18 07:15 09/15/18 08:39 09/15/18 12:15 Bedside Glucose 144 122 144 Magnesium Level 2.0 Subjective 24 Hr Interval Summary Subjective hx not possible: pt non-verbal, pt critical status Exam/Review of Systems Exam Vitals Vital Signs Date Temp Pulse Resp B/P (MAP) Pulse Ox O2 O2 Flow FiO2 Time Delivery Rate 09/15/18 83 12:00 09/15/18 29 95/44 (61) 100 11:30 09/15/18 30 11:12 09/15/18 Mechanical 11:00 Ventilator 09/15/18 98.5 08:00 Intake and Output 09/14/18 09/14/18 09/15/18 1515:00 23:00 07:00 IntakeIntake Total 1159.752 ml 1162.971 ml 1157.752 ml OutputOutput Total 725 ml 720 ml 430 ml BalanceBalance 434.752 ml 442.971 ml 727.752 ml Exam orally intubated Constitutional: non-verbal Head: normocephalic Neck: supple Respiratory: diminished breath sounds Cardiovascular: regular rate and rhythm Genitourinary - Male: other (yañez) Results Results 24hrs Laboratory Tests Test 09/14/18 16:40 09/14/18 21:03 09/15/18 00:55 09/15/18 04:10 Bedside Glucose 121 138 148 White Blood Count 10.4 Red Blood Count 2.61 L Hemoglobin 7.5 L Hematocrit 23.3 L Mean Corpuscular 89.3 Volume Mean Corpuscular 28.7 L Hemoglobin Mean Corpuscular 32.2 Hemoglobin Concent Red Cell 18.2 H Distribution Width Platelet Count 322 Mean Platelet Volume 11.1 H Immature 0.600 H Granulocytes % Neutrophils % 80.0 H Lymphocytes % 10.9 L Monocytes % 7.9 Eosinophils % 0.5 Basophils % 0.1 Nucleated Red Blood 0.0 Cells % Immature 0.060 H Granulocytes # Neutrophils # 8.3 H Lymphocytes # 1.1 Monocytes # 0.8 Eosinophils # 0.1 Basophils # 0.0 Nucleated Red Blood 0.0 Cells # Sodium Level 141 Potassium Level 4.0 Chloride Level 111 H Carbon Dioxide Level 23 Anion Gap 7 Blood Urea Nitrogen 92 H Creatinine 1.33 H Est Glomerular Filtrat Rate mL/min Glucose Level 111 Calcium Level 8.2 L Total Bilirubin 0.2 Direct Bilirubin 0.00 Indirect Bilirubin 0.2 Aspartate Amino 17 Transf (AST/SGOT) Alanine 23 Aminotransferase (AL T/SGPT) Alkaline Phosphatase 67 Total Protein 4.6 L Albumin 2.1 L Globulin 2.50 Albumin/Globulin 0.84 Ratio Test 09/15/18 05:01 09/15/18 07:15 09/15/18 08:39 09/15/18 12:15 Bedside Glucose 144 122 144 Magnesium Level 2.0 Medications Medication Current Medications Diltiazem HCl (Cardizem) 30 mg Q8 PO Last administered on 08/29/18at 21:47; Admin Dose 30 MG; Start 08/29/18 at 22:00; Status Hold Fentanyl 100 ml @ 2.5 mls/hr TITRATE IV Last administered on 09/15/18at 01:55; Admin Dose 5 MLS/HR; Start 08/30/18 at 13:30 Atenolol (Tenormin) 12.5 mg BID NGT Last administered on 09/13/18at 08:23; Admin Dose 12.5 MG; Start 08/30/18 at 21:00; Status Hold Digoxin (Digoxin) 0.125 mg DAILY@13 NGT Last administered on 09/03/18at 12:59; Admin Dose 0.125 MG; Start 08/30/18 at 13:00; Status Hold Ferrous Sulfate (Feosol Liquid Cup) 300 mg DAILY NGT Last administered on 09/15/18 08:40; Admin Dose 300 MG; Start 08/31/18 at 09:00 Lansoprazole (Prevacid) 30 mg DAILY@06 NGT Last administered on 09/15/18 05:0 4; Admin Dose 30 MG; Start 08/31/18 at 06:00 Docusate Sodium (Colace Liquid Cup) 100 mg BID PRN NGT CONSTIPATION Last administered on 08/30/18at 23:46; Admin Dose 100 MG; Start 08/30/18 at 13:30 Midazolam HCl 50 ml @ 1 mls/hr TITRATE IV Last administered on 09/14/18 19:40; Admin Dose 8 MLS/HR; Start 09/01/18 at 11:00 Miscellaneous Information 1 ea NOTE XX ; Start 09/01/18 at 15:00 Glucose (Glutose) 15 gm Q15M PRN PO DECREASED GLUCOSE; Start 09/01/18 at 15:00 Glucose (Glutose) 22.5 gm Q15M PRN PO DECREASED GLUCOSE; Start 09/01/18 at 15:00 Dextrose (D50w Syringe) 25 ml Q15M PRN IV DECREASED GLUCOSE; Start 09/01/18 at 15:00 Dextrose (D50w Syringe) 50 ml Q15M PRN IV DECREASED GLUCOSE; Start 09/01/18 at 15:00 Glucagon (Glucagen) 1 mg Q15M PRN IM DECREASED GLUCOSE; Start 09/01/18 at 15:00 Glucose (Glutose) 15 gm Q15M PRN BUCCAL DECREASED GLUCOSE; Start 09/01/18 at 15:00 Insulin Aspart (Novolog Insulin Pen) NOVOLOG *MILD* ALGORI... Q4 SC Last administered on 09/15/18 12:45; Admin Dose 1 UNIT; Start 09/02/18 at 01:00 Albuterol (Ventolin Hfa) 2 puff Q6H RESP THERAPY INH Last administered on 09/15/18 13:39; Admin Dose 2 PUFF; Start 09/03/18 at 14:00 Ipratropium [place] (Atrovent Hfa) 2 puff Q6HWA RESP THERAPY INH Last administered on 09/15/18 13:39; Admin Dose 2 PUFF; Start 09/03/18 at 14:00 Ipratropium [place] (Atrovent Hfa) 2 puff Q6H RESP THERAPY PRN INH SHORTNESS OF BREATH Last administered on 09/14/18 01:47; Admin Dose 2 PUFF; Start 09/03/18 at 09:30 Albuterol (Ventolin Hfa) 2 puff Q6H RESP THERAPY PRN INH SHORTNESS OF BREATH; Start 09/03/18 at 09:30 IV Flush (NS 10 ml) 10 ml PRN PRN IV IV PROTOCOL; Start 09/05/18 at 17:00 Bisacodyl (Dulcolax Supp) 10 mg QHS [place] Last administered on 09/14/18 21:09; Admin Dose 10 MG; Start 09/07/18 at 11:30 Acetylcysteine (Mucomyst) 2 ml Q6H RESP THERAPY NEB Last administered on 09/15/18 13:38; Admin Dose 2 ML; Start 09/10/18 at 14:00 Scopolamine (Transderm-Scop) 1 patch Q72H TRANSDERM Last administered on 09/13/18 10:11; Admin Dose 1 PATCH; Start 09/10/18 at 11:00 Prednisone (Prednisone) 20 mg DAILY PO Last administered on 09/15/18 08:40; Admin Dose 20 MG; Start 09/11/18 at 09:00 Apixaban (Eliquis) 2.5 mg BID PO Last administered on 09/15/18 08:40; Admin Dose 2.5 MG; Start 09/11/18 at 12:00 Furosemide (Lasix) 40 mg DAILY IV Last administered on 09/15/18 08:40; Admin Dose 40 MG; Start 09/13/18 at 09:00 Phenylephrine HCl 250 ml @ 75 mls/hr TITRATE IV Last administered on 09/13/18 22:53; Admin Dose 15 MLS/HR; Start 09/13/18 at 17:00 Propofol 100 ml @ 2.073 mls/ hr Q12H IV Last administered on 09/15/18 04:14; Admin Dose 6.219 MLS/HR; Start 09/13/18 at 22:30 JASPER SAHU Sep 15, 2018 13:43
[2018-09-15] MEDS: MIDAZOLAM (DRIP) 50 mg/50 mL 50 ML IV SCH ×2 (13:48→23:37)
--- NOTE | 2018-09-15 15:08 | CONS ---
Assessment/Plan Assessment/Plan Hospital Course (Demo Recall) No events noted. Patient looks comfortable, afebrile. WBC 10.4 neutrophils 80 BUN 92 creatinine 1.33 Antimicrobials: None Indwelling: Endotracheal tube NG tube Bar catheter right femoral triple-lumen catheter Physical examination: Chronically ill appearing wasted elderly man who is int ubated sedated in no distress. Head atraumatic normocephalic neck is supple chest rise symmetrical breath sounds diminished bases heart S1-S2 abdomen soft bowel sounds hypoactive extremities without cyanosis Assessment: 1. Severe sepsis on admission status post shock 2. Acute hypoxemic respiratory failure possibly aspiration 3. Multilobar pneumonia 4. COPD 5. History of lung cancer status post radiation, details unknown 6. Atrial fibrillation status post RVR 7. Bacteremia, cw contaminant Plan: Remains unchanged, stable off antibiotics, continue vent management per pulmonary, reculture for T101 Consultation Date/Type/Reason Admit Date/Time Aug 29, 2018 at 18:56 Initial Consult Date Type of Consult id Requesting Provider: KARLEY DEAN MD Date/Time of Note DATE: 09/15/18 TIME: 15:08 Exam/Review of Systems Exam Vitals Vital Signs Date Temp Pulse Resp B/P (MAP) Pulse Ox O2 O2 Flow FiO2 Time Delivery Rate 09/15/18 82 19 100 30 13:41 09/15/18 128/54 13:30 (78) 09/15/18 Mechanical 13:00 Ventilator 09/15/18 97.8 12:00 Intake and Output 09/14/18 09/14/18 09/15/18 1515:00 23:00 07:00 IntakeIntake Total 1159.752 ml 1162.971 ml 1157.752 ml OutputOutput Total 725 ml 720 ml 430 ml BalanceBalance 434.752 ml 442.971 ml 727.752 ml Results Result Diagram: 09/15/18 0410 09/15/18 0410 Results 24hrs Laboratory Tests Test 09/14/18 16:40 09/14/18 21:03 09/15/18 00:55 09/15/18 04:10 Bedside Glucose 121 138 148 White Blood Count 10.4 Red Blood Count 2.61 L Hemoglobin 7.5 L Hematocrit 23.3 L Mean Corpuscular 89.3 Volume Mean Corpuscular 28.7 L Hemoglobin Mean Corpuscular 32.2 Hemoglobin Concent Red Cell 18.2 H Distribution Width Platelet Count 322 Mean Platelet Volume 11.1 H Immature 0.600 H Granulocytes % Neutrophils % 80.0 H Lymphocytes % 10.9 L Monocytes % 7.9 Eosinophils % 0.5 Basophils % 0.1 Nucleated Red Blood 0.0 Cells % Immature 0.060 H Granulocytes # Neutrophils # 8.3 H Lymphocytes # 1.1 Monocytes # 0.8 Eosinophils # 0.1 Basophils # 0.0 Nucleated Red Blood 0.0 Cells # Sodium Level 141 Potassium Level 4.0 Chloride Level 111 H Carbon Dioxide Level 23 Anion Gap 7 Blood Urea Nitrogen 92 H Creatinine 1.33 H Est Glomerular Filtrat Rate mL/min Glucose Level 111 Calcium Level 8.2 L Total Bilirubin 0.2 Direct Bilirubin 0.00 Indirect Bilirubin 0.2 Aspartate Amino 17 Transf (AST/SGOT) Alanine 23 Aminotransferase (AL T/SGPT) Alkaline Phosphatase 67 Total Protein 4.6 L Albumin 2.1 L Globulin 2.50 Albumin/Globulin 0.84 Ratio Test 09/15/18 05:01 09/15/18 07:15 09/15/18 08:39 09/15/18 12:15 Bedside Glucose 144 122 144 Magnesium Level 2.0 Medications Medication Current Medications Diltiazem HCl (Cardizem) 30 mg Q8 PO Last administered on 08/29/18at 21:47; Admin Dose 30 MG; Start 08/29/18 at 22:00; Status Hold Fentanyl 100 ml @ 2.5 mls/hr TITRATE IV Last administered on 09/15/18at 01:55; Admin Dose 5 MLS/HR; Start 08/30/18 at 13:30 Atenolol (Tenormin) 12.5 mg BID NGT Last administered on 09/13/18at 08:23; Admin Dose 12.5 MG; Start 08/30/18 at 21:00; Status Hold Digoxin (Digoxin) 0.125 mg DAILY@13 NGT Last administered on 09/03/18at 12:59; Admin Dose 0.125 MG; Start 08/30/18 at 13:00; Status Hold Ferrous Sulfate (Feosol Liquid Cup) 300 mg DAILY NGT Last administered on 09/15at 08:40; Admin Dose 300 MG; Start 08/31/18 at 09:00 Lansoprazole (Prevacid) 30 mg DAILY@06 NGT Last administered on 09/15/18 05:04; Admin Dose 30 MG; Start 08/31/18 at 06:00 Docusate Sodium (Colace Liquid Cup) 100 mg BID PRN NGT CONSTIPATION Last administered on 08/30/18 23:46; Admin Dose 100 MG; Start 08/30/18 at 13:30 Midazolam HCl 50 ml @ 1 mls/hr TITRATE IV Last administered on 09/15/18 13:48; Admin Dose 6 MLS/HR; Start 09/01/18 at 11:00 Miscellaneous Information 1 ea NOTE XX ; Start 09/01/18 at 15:00 Glucose (Glutose) 15 gm Q15M PRN PO DECREASED GLUCOSE; Start 09/01/18 at 15:00 Glucose (Glutose) 22.5 gm Q15M PRN PO DECREASED GLUCOSE; Start 09/01/18 at 15:00 Dextrose (D50w Syringe) 25 ml Q15M PRN IV DECREASED GLUCOSE; Start 09/01/18 at 15:00 Dextrose (D50w Syringe) 50 ml Q15M PRN IV DECREASED GLUCOSE; Start 09/01/18 at 15:00 Glucagon (Glucagen) 1 mg Q15M PRN IM DECREASED GLUCOSE; Start 09/01/18 at 15:00 Glucose (Glutose) 15 gm Q15M PRN BUCCAL DECREASED GLUCOSE; Start 09/01/18 at 15:00 Insulin Aspart (Novolog Insulin Pen) NOVOLOG *MILD* ALGORI... Q4 SC Last admini stered on 09/15/18at 12:45; Admin Dose 1 UNIT; Start 09/02/18 at 01:00 Albuterol (Ventolin Hfa) 2 puff Q6H RESP THERAPY INH Last administered on 09/15/18 13:39; Admin Dose 2 PUFF; Start 09/03/18 at 14:00 Ipratropium [place] (Atrovent Hfa) 2 puff Q6HWA RESP THERAPY INH Last administered on 09/15/18 13:39; Admin Dose 2 PUFF; Start 09/03/18 at 14:00 Ipratropium [place] (Atrovent Hfa) 2 puff Q6H RESP THERAPY PRN INH SHORTNESS OF BREATH Last administered on 09/14/18 01:47; Admin Dose 2 PUFF; Start 09/03/18 at 09:30 Albuterol (Ventolin Hfa) 2 puff Q6H RESP THERAPY PRN INH SHORTNESS OF BREATH; Start 09/03/18 at 09:30 IV Flush (NS 10 ml) 10 ml PRN PRN IV IV PROTOCOL; Start 09/05/18 at 17:00 Bisacodyl (Dulcolax Supp) 10 mg QHS [place] Last administered on 09/14/18 21:09; Admin Dose 10 MG; Start 09/07/18 at 11:30 Acetylcysteine (Mucomyst) 2 ml Q6H RESP THERAPY NEB Last administered on 09/15/18 13:38; Admin Dose 2 ML; Start 09/10/18 at 14:00 Scopolamine (Transderm-Scop) 1 patch Q72H TRANSDERM Last administered on 09/13/18 10:11; Admin Dose 1 PATCH; Start 09/10/18 at 11:00 Prednisone (Prednisone) 20 mg DAILY PO Last administered on 09/15/18 08:40; Admin Dose 20 MG; Start 09/11/18 at 09:00 Apixaban (Eliquis) 2.5 mg BID PO Last administered on 09/15/18 08:40; Admin Dose 2.5 MG; Start 09/11/18 at 12:00 Furosemide (Lasix) 40 mg DAILY IV Last administered on 09/15/18 08:40; Admin Dose 40 MG; Start 09/13/18 at 09:00 Phenylephrine HCl 250 ml @ 75 mls/hr TITRATE IV Last administered on 09/13/18 22:53; Admin Dose 15 MLS/HR; Start 09/13/18 at 17:00 Propofol 100 ml @ 2.073 mls/ hr Q12H IV Last administered on 09/15/18 04:14; Admin Dose 6.219 MLS/HR; Start 09/13/18 at 22:30 SUZANNE DANIELS NP Sep 15, 2018 15:08
--- NOTE | 2018-09-15 16:16 | PN ---
DATE: 09/15/2018 SUBJECTIVE: Chart reviewed. Events noted. The patient remains on ventilator on 30% FIO2, saturatin g 100%. PHYSICAL EXAMINATION: VITAL SIGNS: Blood pressure 95/44, pulse 85, respirations 29, temperature afebrile. HEENT: Pupils are equal and react to light. NECK: Supple, no JVD noted, no cervical adenopathy noted. LUNGS: Scattered rhonchi bilaterally, decreased breath sounds at the bases. CARDIOVASCULAR: S1, S2 normal. ABDOMEN: Soft, nontender, no megaly or masses noted. EXTREMITIES: No clubbing or cyanosis noted. NEUROLOGIC: Sedated. LABORATORY DATA: WBC 10.4, hemoglobin 7.5, hematocrit 23.3, platelets 322. Sodium 141, potassium 4. 0, chloride 111, CO2 23, BUN 92, creatinine 1.33, glucose 111. IMPRESSION: 1. Acute respiratory failure, failed weaning attempts in the past. 2. History of lung cancer. 3. Advanced chronic obstructive pulmonary disease. 4. Possible aspiration pneumonia. 5. Septic shock. 6. Chronic kidney disease. RECOMMENDATIONS: 1. Continue vent support for now. 2. Continue antibiotics. 3. Bronchodilators. 4. Steroids. 5. Cardiology and ID noted. 6. Likely will need tracheostomy. 7. Above discussed with the staff. Dictated By: DARLING HOLLEY MD, MA/JACQUELINE Conf#: [id number] DID#: [id number] CC: KARLEY DEAN MD;*EndCC*
[2018-09-15] MEDS: BISACODYL 10 MG SUPP PR SCH (22:04)
[2018-09-16] VITALS (47 sets, daily range): BP systolic 89–129; BP diastolic 34–72; PULSE 59–87; RESP 17–33
[2018-09-16] MEDS: INSULIN ASPART [NOVOLOG] 3 ML PEN SC SCH ×6 (01:00→21:37)
[2018-09-16] MEDS: ACETYLCYSTEINE 20% 4 ML VIAL NEB SCH ×4 (01:13→21:31)
[2018-09-16] MEDS: ALBUTEROL HFA 8 GM INHALER INH SCH ×4 (01:14→21:31)
[2018-09-16] MEDS: LANSOPRAZOLE 30 MG CAP NGT SCH (05:35)
[2018-09-16] MEDS: FENTAnyl (DRIP) 1000 mcg/100mL 100 ML IV SCH ×2 (06:08→17:26)
[2018-09-16] MEDS: IPRATROPIUM (HFA) 12.9 GM INHALER INH SCH ×3 (07:41→21:31)
[2018-09-16] MEDS: PROPOFOL 100 ML IV SCH ×2 (08:10→18:34)
[2018-09-16] MEDS: FUROSEMIDE 40 MG INJ IV SCH ×2 (09:00→09:20)
[2018-09-16] MEDS: predniSONE 20 MG TAB PO SCH (09:20)
[2018-09-16] MEDS: APIXABAN 5 MG TABLET PO SCH ×2 (09:20→21:34)
[2018-09-16] MEDS: FERROUS SULFATE 60 MG/ML 5ML CUP NGT SCH (09:20)
[2018-09-16] MEDS: MIDAZOLAM (DRIP) 50 mg/50 mL 50 ML IV SCH (09:52)
--- NOTE | 2018-09-16 10:11 | CONS ---
Assessment/Plan Assessment/Plan Hospital Course (Demo Recall) IMPRESSION: 1. Atrial fibrillation-now with some SVR to mid 30's, pause 2 seconds-now improved s/p d/c atenolol 2. Congestive heart failure exacerbation, diastolic by most recent echo in July 2018 revealing a preserved EF of 65%, acute on chronic by history. 3. Hypotension-borderline now off pressors 4. Respiratory distress. 5. Shortness of breath, likely multifactorial secondary to heart failure and chronic obstructive pulmonary disease exacerbation. 6. Probable chronic obstructive pulmonary disease exacerbation. 7. Pneumonia, right lower lobe by chest x-ray, new since discharge, question aspiration. 8. Hypernatremia. 9. Leukocytosis-persistent but decreasing 10. Anemia, mild. 11. Coagulopathy, likely secondary to baseline Eliquis. 12. ARF-ongoing 14. WCT-likley c/w PAFL with abberancy given NL EF and patient already in AF with neg trop's. Less likley NSVT. No recurrence REcc: -ICU -holding digoxin and atenolol given borderline bradycardia and hypotension with improvement in both now with holding -Continue eliquis -s/p course of abx, f/u cx data -Continue steroids/bronchodilators -Follow volume status closely and would continue gentle lasix diuresis daily and consider increase given pleural effusion -wean vent as tolerated with possible progression to terminal extubation if unable to wean Consultation Date/Type/Reason Admit Date/Time Aug 29, 2018 at 18:56 Initial Consult Date 08/29/18 Type of Consult Cardiology Reason for Consultation AF Requesting Provider: KARLEY DEAN MD Date/Time of Note DATE: 09/16/18 TIME: 10:08 Exam/Review of Systems Vital Signs Vitals Vital Signs Date Temp Pulse Resp B/P (MAP) Pulse Ox O2 O2 Flow FiO2 Time Delivery Rate 09/16/18 70 18 97 30 09:43 09/16/18 108/42 Mechanical 06:00 (64) Ventilator 09/16/18 98.0 04:00 Intake and Output 09/15/18 09/15/18 09/16/18 1515:00 23:00 07:00 IntakeIntake Total 1158.325 ml 824.137 ml 1043.46 ml OutputOutput Total 800 ml 850 ml 400 ml BalanceBalance 358.325 ml -25.863 ml 643.46 ml Exam Exam Review of Systems: CONSTITUTIONAL: No fevers, chills. PULMONARY: intubated CARDIOVASCULAR: No obvious chest pain/palpitations GASTROINTESTINAL: No nausea/vomiting. GENITOURINARY: No hematuria/dysuria. MUSCULOSKELETAL: No myagias/arthalgias. PSYCHIATRIC: The patient denies depression. NEUROLOGIC: sedated Constitutional: other (sedated) Head: normocephalic ENMT: mucosa pink and moist, intubated Neck: supple, jvd (9 cm water) Respiratory: diminished breath sounds (at bases/B) Cardiovascular: regular rate and rhythm Gastrointestinal: soft, non-tender Musculoskeletal: muscle weakness (generalized) Extremities: edema (none) 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: other (sedated) Labs Result Diagram: 09/15/1840909/15/18409 Results 24hrs Laboratory Tests Test 09/15/18 12:15 09/15/18 17:22 09/15/18 21:28 09/16/18 01:10 Bedside Glucose 144 162 137 130 Test 09/16/18 05:16 09/16/18 09:29 Bedside Glucose 107 106 Medications Medications Current Medications Diltiazem HCl (Cardizem) 30 mg Q8 PO Last administered on 08/29/18at 21:47; Admin Dose 30 MG; Start 08/29/18 at 22:00; Status Hold Fentanyl 100 ml @ 2.5 mls/hr TITRATE IV Last administered on 09/16/18 06:08; Admin Dose 2.5 MLS/HR; Start 08/30/18 at 13:30 Atenolol (Tenormin) 12.5 mg BID NGT Last administered on 09/13/18 08:23; Admin Dose 12.5 MG; Start 08/30/18 at 21:00; Status Hold Digoxin (Digoxin) 0.125 mg DAILY@13 NGT Last administered on 09/03/18 12:59; Admin Dose 0.125 MG; Start 08/30/18 at 13:00; Status Hold Ferrous Sulfate (Feosol Liquid Cup) 300 mg DAILY NGT Last administered on 09/16/18 09:20; Admin Dose 300 MG; Start 08/31/18 at 09:00 Lansoprazole (Prevacid) 30 mg DAILY@06 NGT Last administered on 09/16/18 05:35; Admin Dose 30 MG; Start 08/31/18 at 06:00 Docusate Sodium (Colace Liquid Cup) 100 mg BID PRN NGT CONSTIPATION Last administered on 08/30/18at 23:46; Admin Dose 100 MG; Start 08/30/18 at 13:30 Midazolam HCl 50 ml @ 1 mls/hr TITRATE IV Last administered on 09/16/18 09:52; Admin Dose 3 MLS/HR; Start 09/01/18 at 11:00 Miscellaneous Information 1 ea NOTE XX ; Start 09/01/18 at 15:00 Glucose (Glutose) 15 gm Q15M PRN PO DECREASED GLUCOSE; Start 09/01/18 at 15:00 Glucose (Glutose) 22.5 gm Q15M PRN PO DECREASED GLUCOSE; Start 09/01/18 at 15:00 Dextrose (D50w Syringe) 25 ml Q15M PRN IV DECREASED GLUCOSE; Start 09/01/18 at 15:00 Dextrose (D50w Syringe) 50 ml Q15M PRN IV DECREASED GLUCOSE; Start 09/01/18 at 15:00 Glucagon (Glucagen) 1 mg Q15M PRN IM DECREASED GLUCOSE; Start 09/01/18 at 15:00 Glucose (Glutose) 15 gm Q15M PRN BUCCAL DECREASED GLUCOSE; Start 09/01/18 at 15:00 Insulin Aspart (Novolog Insulin Pen) NOVOLOG *MILD* ALGORI... Q4 SC Last administered on 09/15/18at 17:26; Admin Dose 1 UNIT; Start 09/02/18 at 01:00 Albuterol (Ventolin Hfa) 2 puff Q6H RESP THERAPY INH Last administered on 09/16/18 07:41; Admin Dose 2 PUFF; Start 09/03/18 at 14:00 Ipratropium [place] (Atrovent Hfa) 2 puff Q6HWA RESP THERAPY INH Last administered on 09/16/18 07:41; Admin Dose 2 PUFF; Start 09/03/18 at 14:00 Ipratropium [place] (Atrovent Hfa) 2 puff Q6H RESP THERAPY PRN INH SHORTNESS OF BREATH Last administered on 09/14/18 01:47; Admin Dose 2 PUFF; Start 09/03/18 at 09:30 Albuterol (Ventolin Hfa) 2 puff Q6H RESP THERAPY PRN INH SHORTNESS OF BREATH; Start 09/03/18 at 09:30 IV Flush (NS 10 ml) 10 ml PRN PRN IV IV PROTOCOL; Start 09/05/18 at 17:00 Bisacodyl (Dulcolax Supp) 10 mg QHS [place] Last administered on 09/15/18 22:04; Admin Dose 10 MG; Start 09/07/18 at 11:30 Acetylcysteine (Mucomyst) 2 ml Q6H RESP THERAPY NEB Last administered on 09/16/18 07:41; Admin Dose 2 ML; Start 09/10/18 at 14:00 Scopolamine (Transderm-Scop) 1 patch Q72H TRANSDERM Last administered on 09/13/18 10:11; Admin Dose 1 PATCH; Start 09/10/18 at 11:00 Prednisone (Prednisone) 20 mg DAILY PO Last administered on 09/16/18 09:20; Admin Dose 20 MG; Start 09/11/18 at 09:00 Apixaban (Eliquis) 2.5 mg BID PO Last administered on 09/16/18 09:20; Admin Dose 2.5 MG; Start 09/11/18 at 12:00 Furosemide (Lasix) 40 mg DAILY IV Last administered on 09/15/18 08:40; Admin Dose 40 MG; Start 09/13/18 at 09:00 Phenylephrine HCl 250 ml @ 75 mls/hr TITRATE IV Last administered on 09/13/18 22:53; Admin Dose 15 MLS/HR; Start 09/13/18 at 17:00 Propofol 100 ml @ 2.073 mls/ hr Q12H IV Last administered on 09/16/18 08:10; Admin Dose 6.219 MLS/HR; Start 09/13/18 at 22:30 CECE LOPEZ Sep 16, 2018 10:11
--- NOTE | 2018-09-16 10:51 | PN ---
Date/Time of Note Date/Time of Note DATE: 09/16/18 TIME: 10:50 Assessment/Plan VTE Prophylaxis Risk score (from Ns)>0 risk: 15 SCD applied (from Ns): Yes Pharmacological prophylaxis: NA/contraindicated Pharm contraindication: low risk/ambulating Lines/Catheters IV Catheter Type (from Nrsg): PICC Line Central line still needed: Yes Urinary Cath still in place: Yes Reason Cath still needed: urinary retention Assessment/Plan Assessment/Plan 1 Septic shock likely due to sepsis /pneumonia . Off pressors 2. ALOC, lethargic. Now sedated follows commands off sedation 3. Atrial fibrillation, now flutter, controlled 4. Hypoxic respiratory failure. Respiratory acidosis, resolved. 5. Bilateral pneumonia 6. Congestive heart failure, EF 35 to 40%, 7. Hx of right side lung cancer 8. JAMES on chronic kidney disease, creatinine baseline 1.6. With elevated BUN and creatinine ratio likely ATN secondary to septic shock now Cr downtrending however BUN still high, Good UOP 9. Hx of pleural effusions, right and left and numerous thoracentesis. Now left pleural effusion on chest xray 10. Bilateral pleural effusion 11. Hx of hypertension, now on BP support 12. Hyperlipidemia 13 + bacteremia however new bld cx neg 14 Hypernatremia likely hypovolemic , resolved 15. Anemia Assessment/Plan - possible terminal extubation -Not weanable yet per pulmonary, will follow with pulmonary recommendations if not able to come out of the ventilator terminal extubation - sp lasix -skin care -c/w ICU care -off a/b -on pressor -Scopolamine patch for secretions -pulmonary consult dr Guajardo appreciated -orally intubated 30 % -Cardiology consult dr Hall -DVT proph. Eliquiz 5 g GT BID -GI proph. Protonix GT Result Diagram: 09/15/18 0410 09/15/18409 Results 24hrs Laboratory Tests Test 09/15/18 12:15 09/15/18 17:22 09/15/18 21:28 09/16/18 01:10 Bedside Glucose 144 162 137 130 Test 09/16/18 05:16 09/16/18 09:29 Bedside Glucose 107 106 Subjective 24 Hr Interval Summary Free Text/Dictation remains on sedation. un weaneable from the vent despite multiple attempts Exam/Review of Systems Exam Vitals Vital Signs Date Temp Pulse Resp B/P (MAP) Pulse Ox O2 O2 Flow FiO2 Time Delivery Rate 09/16/18 70 18 97 30 09:43 09/16/18 108/42 Mechanical 06:00 (64) Ventilator 09/16/18 98.0 04:00 Intake and Output 09/15/18 09/15/18 09/16/18 1515:00 23:00 07:00 IntakeIntake Total 1158.325 ml 824.137 ml 1043.46 ml OutputOutput Total 800 ml 850 ml 400 ml BalanceBalance 358.325 ml -25.863 ml 643.46 ml Exam orally intubated Constitutional: non-verbal Head: normocephalic Neck: supple Respiratory: diminished breath sounds Cardiovascular: regular rate and rhythm Genitourinary - Male: other (yañez) Results Results 24hrs Laboratory Tests Test 09/15/18 12:15 09/15/18 17:22 09/15/18 21:28 09/16/18 01:10 Bedside Glucose 144 162 137 130 Test 09/16/18 05:16 09/16/18 09:29 Bedside Glucose 107 106 Medications Medication Current Medications Diltiazem HCl (Cardizem) 30 mg Q8 PO Last administered on 08/29/18at 21:47; Admin Dose 30 MG; Start 08/29/18 at 22:00; Status Hold Fentanyl 100 ml @ 2.5 mls/hr TITRATE IV Last administered on 09/16/18 06:08; Admin Dose 2.5 MLS/HR; Start 08/30/18 at 13:30 Atenolol (Tenormin) 12.5 mg BID NGT Last administered on 09/13/18at 08:23; Admin Dose 12.5 MG; Start 08/30/18 at 21:00; Status Hold Digoxin (Digoxin) 0.125 mg DAILY@13 NGT Last administered on 09/03/18at 12:59; Admin Dose 0.125 MG; Start 08/30/18 at 13:00; Status Hold Ferrous Sulfate (Feosol Liquid Cup) 300 mg DAILY NGT Last administered on 09/16/18 09:20; Admin Dose 300 MG; Start 08/31/18 at 09:00 Lansoprazole (Prevacid) 30 mg DAILY@06 NGT Last administered on 09/16/18at 05:35; Admin Dose 30 MG; Start 08/31/18 at 06:00 Docusate Sodium (Colace Liquid Cup) 100 mg BID PRN NGT CONSTIPATION Last administered on 08/30/18 23:46; Admin Dose 100 MG; Start 08/30/18 at 13:30 Midazolam HCl 50 ml @ 1 mls/hr TITRATE IV Last administered on 09/16/18 09:52; Admin Dose 3 MLS/HR; Start 09/01/18 at 11:00 Miscellaneous Information 1 ea NOTE XX ; Start 09/01/18 at 15:00 Glucose (Glutose) 15 gm Q15M PRN PO DECREASED GLUCOSE; Start 09/01/18 at 15:00 Glucose (Glutose) 22.5 gm Q15M PRN PO DECREASED GLUCOSE; Start 09/01/18 at 15:00 Dextrose (D50w Syringe) 25 ml Q15M PRN IV DECREASED GLUCOSE; Start 09/01/18 at 15:00 Dextrose (D50w Syringe) 50 ml Q15M PRN IV DECREASED GLUCOSE; Start 09/01/18 at 15:00 Glucagon (Glucagen) 1 mg Q15M PRN IM DECREASED GLUCOSE; Start 09/01/18 at 15:00 Glucose (Glutose) 15 gm Q15M PRN BUCCAL DECREASED GLUCOSE; Start 09/01/18 at 15:00 Insulin Aspart (Novolog Insulin Pen) NOVOLOG *MILD* ALGORI... Q4 SC Last administered on 09/15/18 17:26; Admin Dose 1 UNIT; Start 09/02/18 at 01:00 Albuterol (Ventolin Hfa) 2 puff Q6H RESP THERAPY INH Last administered on 09/16/18 07:41; Admin Dose 2 PUFF; Start 09/03/18 at 14:00 Ipratropium [place] (Atrovent Hfa) 2 puff Q6HWA RESP THERAPY INH Last administered on 09/16/18 07:41; Admin Dose 2 PUFF; Start 09/03/18 at 14:00 Ipratropium [place] (Atrovent Hfa) 2 puff Q6H RESP THERAPY PRN INH SHORTNESS OF BREATH Last administered on 09/14/18 01:47; Admin Dose 2 PUFF; Start 09/03/18 at 09:30 Albuterol (Ventolin Hfa) 2 puff Q6H RESP THERAPY PRN INH SHORTNESS OF BREATH; Start 09/03/18 at 09:30 IV Flush (NS 10 ml) 10 ml PRN PRN IV IV PROTOCOL; Start 09/05/18 at 17:00 Bisacodyl (Dulcolax Supp) 10 mg QHS [place] Last administered on 09/15/18 22:04; Admin Dose 10 MG; Start 09/07/18 at 11:30 Acetylcysteine (Mucomyst) 2 ml Q6H RESP THERAPY NEB Last administered on 09/16/18 07:41; Admin Dose 2 ML; Start 09/10/18 at 14:00 Scopolamine (Transderm-Scop) 1 patch Q72H TRANSDERM Last administered on 09/13/18 10:11; Admin Dose 1 PATCH; Start 09/10/18 at 11:00 Prednisone (Prednisone) 20 mg DAILY PO Last administered on 09/16/18 09:20; Admin Dose 20 MG; Start 09/11/18 at 09:00 Apixaban (Eliquis) 2.5 mg BID PO Last administered on 09/16/18 09:20; Admin Dose 2.5 MG; Start 09/11/18 at 12:00 Furosemide (Lasix) 40 mg DAILY IV Last administered on 09/15/18 08:40; Admin Dose 40 MG; Start 09/13/18 at 09:00 Phenylephrine HCl 250 ml @ 75 mls/hr TITRATE IV Last administered on 09/13/18 22:53; Admin Dose 15 MLS/HR; Start 09/13/18 at 17:00 Propofol 100 ml @ 2.073 mls/ hr Q12H IV Last administered on 09/16/18 08:10; Admin Dose 6.219 MLS/HR; Start 09/13/18 at 22:30 Furosemide (Lasix) 40 mg ONCE ONCE IV ; Start 09/16/18 at 15:00; Stop 09/16/18 at 15:01 FIDEL GAVIN MD Sep 16, 2018 10:51
--- NOTE | 2018-09-16 11:04 | CONS ---
Consult Date/Type/Reason Admit Date/Time Aug 29, 2018 at 18:56 Initial Consult Date Type of Consult Pulmonary Requesting Provider: KARLEY DEAN MD Date/Time of Note DATE: 09/16/18 TIME: 11:03 Subjective Patient still minimally responsive on mechanical ventilation. Objective Vital Signs Date Temp Pulse Resp B/P (MAP) Pulse Ox O2 O2 Flow FiO2 Time Delivery Rate 09/16/18 70 18 97 30 09:43 09/16/18 108/42 Mechanical 06:00 (64) Ventilator 09/16/18 98.0 04:00 Intake and Output 09/15/18 09/15/18 09/16/18 1515:00 23:00 07:00 IntakeIntake Total 1158.325 ml 824.137 ml 1043.46 ml OutputOutput Total 800 ml 850 ml 400 ml BalanceBalance 358.325 ml -25.863 ml 643.46 ml Exam GENERAL: Elderly gentleman orally intubated on mechanical ventilation VITAL SIGNS: per chart NECK: Supple. No JVD or lymphadenopathy. CARDIAC EXAM: S1, S2. No added sounds or murmurs. CHEST: Diminished air entry bilaterally ABDOMEN: Soft, nontender. No guarding or rebound. EXTREMITIES: No cyanosis, clubbing or edema. NEUROLOGIC: Generalized weakness. No focal deficits. Vent Setting Ventilator Support Mode: AC Fraction of Inspired Oxygen pe: 30 Positive End Expiratory Pressu: 5.0 Results/Medications Result Diagram: 09/15/18 0410 09/15/18 0410 Results 24 hrs Laboratory Tests Test 09/15/18 12:15 09/15/18 17:22 09/15/18 21:28 09/16/18 01:10 Bedside Glucose 144 162 137 130 Test 09/16/18 05:16 09/16/18 09:29 Bedside Glucose 107 106 Medications Current Medications Diltiazem HCl (Cardizem) 30 mg Q8 PO Last administered on 08/29/18at 21:47; Admin Dose 30 MG; Start 08/29/18 at 22:00; Status Hold Fentanyl 100 ml @ 2.5 mls/hr TITRATE IV Last administered on 09/16/18at 06:08; Admin Dose 2.5 MLS/HR; Start 08/30/18 at 13:30 Atenolol (Tenormin) 12.5 mg BID NGT Last administered on 09/13/18 08:23; Admin Dose 12.5 MG; Start 08/30/18 at 21:00; Status Hold Digoxin (Digoxin) 0.125 mg DAILY@13 NGT Last administered on 09/03/18 12:59; Admin Dose 0.125 MG; Start 08/30/18 at 13:00; Status Hold Ferrous Sulfate (Feosol Liquid Cup) 300 mg DAILY NGT Last administered on 09/16/18 09:20; Admin Dose 300 MG; Start 08/31/18 at 09:00 Lansoprazole (Prevacid) 30 mg DAILY@06 NGT Last administered on 09/16/18 05:35; Admin Dose 30 MG; Start 08/31/18 at 06:00 Docusate Sodium (Colace Liquid Cup) 100 mg BID PRN NGT CONSTIPATION Last administered on 08/30/18 23:46; Admin Dose 100 MG; Start 08/30/18 at 13:30 Midazolam HCl 50 ml @ 1 mls/hr TITRATE IV Last administered on 09/16/18 09:52; Admin Dose 3 MLS/HR; Start 09/01/18 at 11:00 Miscellaneous Information 1 ea NOTE XX ; Start 09/01/18 at 15:00 Glucose (Glutose) 15 gm Q15M PRN PO DECREASED GLUCOSE; Start 09/01/18 at 15:00 Glucose (Glutose) 22.5 gm Q15M PRN PO DECREASED GLUCOSE; Start 09/01/18 at 15:00 Dextrose (D50w Syringe) 25 ml Q15M PRN IV DECREASED GLUCOSE; Start 09/01/18 at 15:00 Dextrose (D50w Syringe) 50 ml Q15M PRN IV DECREASED GLUCOSE; Start 09/01/18 at 15:00 Glucagon (Glucagen) 1 mg Q15M PRN IM DECREASED GLUCOSE; Start 09/01/18 at 15:00 Glucose (Glutose) 15 gm Q15M PRN BUCCAL DECREASED GLUCOSE; Start 09/01/18 at 15:00 Insulin Aspart (Novolog Insulin Pen) NOVOLOG *MILD* ALGORI... Q4 SC Last administered on 09/15/18 17:26; Admin Dose 1 UNIT; Start 09/02/18 at 01:00 Albuterol (Ventolin Hfa) 2 puff Q6H RESP THERAPY INH Last administered on 09/16/18 07:41; Admin Dose 2 PUFF; Start 09/03/18 at 14:00 Ipratropium [place] (Atrovent Hfa) 2 puff Q6HWA RESP THERAPY INH Last administered on 09/16/18 07:41; Admin Dose 2 PUFF; Start 09/03/18 at 14:00 Ipratropium [place] (Atrovent Hfa) 2 puff Q6H RESP THERAPY PRN INH SHORTNESS OF BREATH Last administered on 09/14/18 01:47; Admin Dose 2 PUFF; Start 09/03/18 at 09:30 Albuterol (Ventolin Hfa) 2 puff Q6H RESP THERAPY PRN INH SHORTNESS OF BREATH; Start 09/03/18 at 09:30 IV Flush (NS 10 ml) 10 ml PRN PRN IV IV PROTOCOL; Start 09/05/18 at 17:00 Bisacodyl (Dulcolax Supp) 10 mg QHS [place] Last administered on 09/15/18 22:04; Admin Dose 10 MG; Start 09/07/18 at 11:30 Acetylcysteine (Mucomyst) 2 ml Q6H RESP THERAPY NEB Last administered on 09/16/18 07:41; Admin Dose 2 ML; Start 09/10/18 at 14:00 Scopolamine (Transderm-Scop) 1 patch Q72H TRANSDERM Last administered on 09/13/18 10:11; Admin Dose 1 PATCH; Start 09/10/18 at 11:00 Prednisone (Prednisone) 20 mg DAILY PO Last administered on 09/16/18 09:20; Admin Dose 20 MG; Start 09/11/18 at 09:00 Apixaban (Eliquis) 2.5 mg BID PO Last administered on 09/16/18 09:20; Admin Dose 2.5 MG; Start 09/11/18 at 12:00 Furosemide (Lasix) 40 mg DAILY IV Last administered on 09/15/18 08:40; Admin Dose 40 MG; Start 09/13/18 at 09:00 Phenylephrine HCl 250 ml @ 75 mls/hr TITRATE IV Last administered on 09/13/18 22:53; Admin Dose 15 MLS/HR; Start 09/13/18 at 17:00 Propofol 100 ml @ 2.073 mls/ hr Q12H IV Last administered on 09/16/18at 08:10; Admin Dose 6.219 MLS/HR; Start 09/13/18 at 22:30 Furosemide (Lasix) 40 mg ONCE ONCE IV ; Start 09/16/18 at 15:00; Stop 09/16/18 at 15:01 Assessment/Plan Hospital Course (Demo Recall) IMPRESSION AND PLAN: 1. History of lung cancer and advanced COPD with recurrent hypoxemic respiratory failure 2. Probable aspiration pneumonia. Bilateral infiltrates with left pleural effusion. 3. Chronic obstructive pulmonary disease exacerbation. 4. Septic shock and metabolic acidosis secondary to above. 5. Renal insufficiency. PLAN: 1. Continue vasopressors and IV fluids tube feeding as tolerated, 2. Blood cultures. 3. Broad-spectrum antibiotics. 4. DVT and GI prophylaxis. 5. Continue mechanical ventilation failed CPAP trial unlikely to be liberated from mechanical ventilation. 6. Steroids. Tracheostomy and continued long-term life support and nursing home facility is not consistent with patient's wishes. Long discussion with patient's D POA. Transition to comfort care tomorrow. Critical care time 40 minutes. AISHWARYA PICKARD MD, [facility] Sep 16, 2018 11:04
[2018-09-16] MEDS: SCOPOLAMINE 1.5 MG PATCH TRANSDERM SCH (12:51)
--- NOTE | 2018-09-16 14:01 | CONS ---
Assessment/Plan Assessment/Plan Hospital Course (Demo Recall) No events patient remains on vent support sedated, in no distress he is off antibiotics Indwelling: Endotracheal tube NG tube Bar catheter right femoral triple-lumen catheter Physical examination: Chronically ill appearing wasted elderly man who is intubated sedated in no distress. Head atraumatic normocephalic neck is supple chest rise symmetrical breath sounds diminished bases heart S1-S2 abdomen soft bowel sounds hypoactive extremities without cyanosis Assessment: 1. Severe sepsis on admission status post shock 2. Acute hypoxemic respiratory failure possibly aspiration 3. Multilobar pneumonia 4. COPD 5. History of lung cancer status post radiation, details unknown 6. Atrial fibrillation status post RVR 7. Bacteremia, cw contaminant Plan: Remains unchanged, stable off antibiotics, continue vent management per pulmonary, reculture for T101 Consultation Date/Type/Reason Admit Date/Time Aug 29, 2018 at 18:56 Initial Consult Date Type of Consult id Requesting Provider: KARLEY DEAN MD Date/Time of Note DATE: 09/16/18 TIME: 14:00 Exam/Review of Systems Exam Vitals Vital Signs Date Temp Pulse Resp B/P (MAP) Pulse Ox O2 O2 Flow FiO2 Time Delivery Rate 09/16/18 67 18 100 30 13:15 09/16/18 98.2 102/56 13:00 (71) 09/16/18 Mechanical 12:00 Ventilator Intake and Output 09/15/18 09/15/18 09/16/18 1515:00 23:00 07:00 IntakeIntake Total 1158.325 ml 824.137 ml 1043.46 ml OutputOutput Total 800 ml 850 ml 400 ml BalanceBalance 358.325 ml -25.863 ml 643.46 ml Results Result Diagram: 09/15/18 0410 09/15/18 0410 Results 24hrs Laboratory Tests Test 09/15/18 17:22 09/15/18 21:28 09/16/18 01:10 09/16/18 05:16 Bedside Glucose 162 137 130 107 Test 09/16/18 09:29 09/16/18 12:48 Bedside Glucose 106 117 Medications Medication Current Medications Diltiazem HCl (Cardizem) 30 mg Q8 PO Last administered on 08/29/18at 21:47; Admin Dose 30 MG; Start 08/29/18 at 22:00; Status Hold Fentanyl 100 ml @ 2.5 mls/hr TITRATE IV Last administered on 09/16/18at 06:08; Admin Dose 2.5 MLS/HR; Start 08/30/18 at 13:30 Atenolol (Tenormin) 12.5 mg BID NGT Last administered on 09/13/18at 08:23; Admin Dose 12.5 MG; Start 08/30/18 at 21:00; Status Hold Digoxin (Digoxin) 0.125 mg DAILY@13 NGT Last administered on 09/03/18at 12:59; Admin Dose 0.125 MG; Start 08/30/18 at 13:00; Status Hold Ferrous Sulfate (Feosol Liquid Cup) 300 mg DAILY NGT Last administered on 09/16/18at 09:20; Admin Dose 300 MG; Start 08/31/18 at 09:00 Lansoprazole (Prevacid) 30 mg DAILY@06 NGT Last administered on 09/16/18at 05:35; Admin Dose 30 MG; Start 08/31/18 at 06:00 Docusate Sodium (Colace Liquid Cup) 100 mg BID PRN NGT CONSTIPATION Last administered on 08/30/18at 23:46; Admin Dose 100 MG; Start 08/30/18 at 13:30 Midazolam HCl 50 ml @ 1 mls/hr TITRATE IV Last administered on 09/16/18at 09:52; Admin Dose 3 MLS/HR; Start 09/01/18 at 11:00 Miscellaneous Information 1 ea NOTE XX ; Start 09/01/18 at 15:00 Glucose (Glutose) 15 gm Q15M PRN PO DECREASED GLUCOSE; Start 09/01/18 at 15:00 Glucose (Glutose) 22.5 gm Q15M PRN PO DECREASED GLUCOSE; Start 09/01/18 at 15:00 Dextrose (D50w Syringe) 25 ml Q15M PRN IV DECREASED GLUCOSE; Start 09/01/18 at 15:00 Dextrose (D50w Syringe) 50 ml Q15M PRN IV DECREASED GLUCOSE; Start 09/01/18 at 15:00 Glucagon (Glucagen) 1 mg Q15M PRN IM DECREASED GLUCOSE; Start 09/01/18 at 15:00 Glucose (Glutose) 15 gm Q15M PRN BUCCAL DECREASED GLUCOSE; Start 09/01/18 at 15:00 Insulin Aspart (Novolog Insulin Pen) NOVOLOG *MILD* ALGORI... Q4 SC Last administered on 09/15/18 17:26; Admin Dose 1 UNIT; Start 09/02/18 at 01:00 Albuterol (Ventolin Hfa) 2 puff Q6H RESP THERAPY INH Last administered on 09/02 07:41; Admin Dose 2 PUFF; Start 09/03/18 at 14:00 Ipratropium [place] (Atrovent Hfa) 2 puff Q6HWA RESP THERAPY INH Last administered on 09/16/18 07:41; Admin Dose 2 PUFF; Start 09/03/18 at 14:00 Ipratropium [place] (Atrovent Hfa) 2 puff Q6H RESP THERAPY PRN INH SHORTNESS OF BREATH Last administered on 09/14/18 01:47; Admin Dose 2 PUFF; Start 09/03/18 at 09:30 Albuterol (Ventolin Hfa) 2 puff Q6H RESP THERAPY PRN INH SHORTNESS OF BREATH; Start 09/03/18 at 09:30 IV Flush (NS 10 ml) 10 ml PRN PRN IV IV PROTOCOL; Start 09/05/18 at 17:00 Bisacodyl (Dulcolax Supp) 10 mg QHS [place] Last administered on 09/15/18 22:04; Admin Dose 10 MG; Start 09/07/18 at 11:30 Acetylcysteine (Mucomyst) 2 ml Q6H RESP THERAPY NEB Last administered on 09/16/18 07:41; Admin Dose 2 ML; Start 09/10/18 at 14:00 Scopolamine (Transderm-Scop) 1 patch Q72H TRANSDERM Last administered on 09/16/18 12:51; Admin Dose 1 PATCH; Start 09/10/18 at 11:00 Prednisone (Prednisone) 20 mg DAILY PO Last administered on 09/16/18 09:20; Admin Dose 20 MG; Start 09/11/18 at 09:00 Apixaban (Eliquis) 2.5 mg BID PO Last administered on 09/16/18 09:20; Admin Dose 2.5 MG; Start 09/11/18 at 12:00 Furosemide (Lasix) 40 mg DAILY IV Last administered on 09/15/18 08:40; Admin Dose 40 MG; Start 09/13/18 at 09:00 Phenylephrine HCl 250 ml @ 75 mls/hr TITRATE IV Last administered on 09/13/18at 22:53; Admin Dose 15 MLS/HR; Start 09/13/18 at 17:00 Propofol 100 ml @ 2.073 mls/ hr Q12H IV Last administered on 09/16/18at 08:10; Admin Dose 6.219 MLS/HR; Start 09/13/18 at 22:30 Furosemide (Lasix) 40 mg ONCE ONCE IV ; Start 09/16/18 at 15:00; Stop 09/16/18 at 15:01 SUZANNE DANIELS NP Sep 16, 2018 14:01
[2018-09-16] MEDS ORDERED: FUROSEMIDE 40 MG INJ IV ONE (15:00)
[2018-09-16] MEDS: BISACODYL 10 MG SUPP PR SCH (21:34)
[2018-09-17] VITALS (70 sets, daily range): BP systolic 69–159; BP diastolic 37–86; PULSE 62–157; RESP 14–42
[2018-09-17] MEDS: INSULIN ASPART [NOVOLOG] 3 ML PEN SC SCH ×6 (01:00→20:42)
[2018-09-17] MEDS: ACETYLCYSTEINE 20% 4 ML VIAL NEB SCH ×4 (01:33→19:50)
[2018-09-17] MEDS: ALBUTEROL HFA 8 GM INHALER INH SCH ×4 (02:00→19:50)
[2018-09-17] MEDS: MIDAZOLAM (DRIP) 50 mg/50 mL 50 ML IV SCH ×2 (02:30→16:54)
[2018-09-17] MEDS: FENTAnyl (DRIP) 1000 mcg/100mL 100 ML IV SCH ×2 (03:34→16:52)
[2018-09-17] MEDS: LANSOPRAZOLE 30 MG CAP NGT SCH (05:57)
[2018-09-17] MEDS: IPRATROPIUM (HFA) 12.9 GM INHALER INH SCH ×3 (07:36→19:50)
[2018-09-17] MEDS: FUROSEMIDE 40 MG INJ IV SCH (08:19)
[2018-09-17] MEDS: APIXABAN 5 MG TABLET PO SCH ×2 (08:19→20:30)
[2018-09-17] MEDS: FERROUS SULFATE 60 MG/ML 5ML CUP NGT SCH (08:19)
[2018-09-17] MEDS: predniSONE 20 MG TAB PO SCH (08:38)
[2018-09-17] MEDS: PROPOFOL 100 ML IV SCH ×2 (10:30→18:00)
--- NOTE | 2018-09-17 11:01 | CONS ---
Consult Date/Type/Reason Admit Date/Time Aug 29, 2018 at 18:56 Initial Consult Date Type of Consult Pulmonary Requesting Provider: KARLEY DEAN MD Date/Time of Note DATE: 09/17/18 TIME: 11:00 Subjective Patient continues mechanical ventilation failed CPAP weaning trial this morning. Objective Vital Signs Date Temp Pulse Resp B/P (MAP) Pulse Ox O2 O2 Flow FiO2 Time Delivery Rate 09/17/18 145 20 111/72 94 Mechanical 10:30 (85) Ventilator 09/17/18 30 09:59 09/17/18 97.8 08:00 Intake and Output 09/16/18 09/16/18 09/17/18 1515:00 23:00 07:00 IntakeIntake Total 484.752 ml 489.129 ml 474.235 ml OutputOutput Total 565 ml 830 ml 500 ml BalanceBalance -80.248 ml -340.871 ml -25.765 ml Exam GENERAL: Elderly gentleman orally intubated on mechanical ventilation VITAL SIGNS: per chart NECK: Supple. No JVD or lymphadenopathy. CARDIAC EXAM: S1, S2. No added sounds or murmurs. CHEST: Diminished air entry bilaterally ABDOMEN: Soft, nontender. No guarding or rebound. EXTREMITIES: No cyanosis, clubbing or edema. NEUROLOGIC: Generalized weakness. No focal deficits. Vent Setting Ventilator Support Mode: CPAP, PS Fraction of Inspired Oxygen pe: 30 Positive End Expiratory Pressu: 5.0 Results/Medications Result Diagram: 09/15/1840909/15/18 041 Results 24 hrs Laboratory Tests Test 09/16/18 12:48 09/16/18 16:59 09/16/18 21:33 09/17/18 01:11 Bedside Glucose 117 180 160 110 Test 09/17/18 05:03 09/17/18 08:35 Bedside Glucose 110 133 Medications Current Medications Diltiazem HCl (Cardizem) 30 mg Q8 PO Last administered on 08/29/18at 21:47; Admin Dose 30 MG; Start 08/29/18 at 22:00; Status Hold Fentanyl 100 ml @ 2.5 mls/hr TITRATE IV Last administered on 09/17/18at 03:34; Admin Dose 10 MLS/HR; Start 08/30/18 at 13:30 Atenolol (Tenormin) 12.5 mg BID NGT Last administered on 09/13/18at 08:23; Admin Dose 12.5 MG; Start 08/30/18 at 21:00; Status Hold Digoxin (Digoxin) 0.125 mg DAILY@13 NGT Last administered on 09/03/18at 12:59; A dmin Dose 0.125 MG; Start 08/30/18 at 13:00; Status Hold Ferrous Sulfate (Feosol Liquid Cup) 300 mg DAILY NGT Last administered on 09/17/18at 08:19; Admin Dose 300 MG; Start 08/31/18 at 09:00 Lansoprazole (Prevacid) 30 mg DAILY@06 NGT Last administered on 09/17/18at 05:57; Admin Dose 30 MG; Start 08/31/18 at 06:00 Docusate Sodium (Colace Liquid Cup) 100 mg BID PRN NGT CONSTIPATION Last administered on 08/30/18at 23:46; Admin Dose 100 MG; Start 08/30/18 at 13:30 Midazolam HCl 50 ml @ 1 mls/hr TITRATE IV Last administered on 09/17/18at 02:30; Admin Dose 5 MLS/HR; Start 09/01/18 at 11:00 Miscellaneous Information 1 ea NOTE XX ; Start 09/01/18 at 15:00 Glucose (Glutose) 15 gm Q15M PRN PO DECREASED GLUCOSE; Start 09/01/18 at 15:00 Glucose (Glutose) 22.5 gm Q15M PRN PO DECREASED GLUCOSE; Start 09/01/18 at 15:00 Dextrose (D50w Syringe) 25 ml Q15M PRN IV DECREASED GLUCOSE; Start 09/01/18 at 15:00 Dextrose (D50w Syringe) 50 ml Q15M PRN IV DECREASED GLUCOSE; Start 09/01/18 at 15:00 Glucagon (Glucagen) 1 mg Q15M PRN IM DECREASED GLUCOSE; Start 09/01/18 at 15:00 Glucose (Glutose) 15 gm Q15M PRN BUCCAL DECREASED GLUCOSE; Start 09/01/18 at 15:00 Insulin Aspart (Novolog Insulin Pen) NOVOLOG *MILD* ALGORI... Q4 SC Last administered on 09/16/18at 21:37; Admin Dose 1 UNIT; Start 09/02/18 at 01:00 Albuterol (Ventolin Hfa) 2 puff Q6H RESP THERAPY INH Last administered on 09/17/18 07:36; Admin Dose 2 PUFF; Start 09/03/18 at 14:00 Ipratropium [place] (Atrovent Hfa) 2 puff Q6HWA RESP THERAPY INH Last administered on 09/17/18 07:36; Admin Dose 2 PUFF; Start 09/03/18 at 14:00 Ipratropium [place] (Atrovent Hfa) 2 puff Q6H RESP THERAPY PRN INH SHORTNESS OF BREATH Last administered on 09/14/18 01:47; Admin Dose 2 PUFF; Start 09/03/18 at 09:30 Albuterol (Ventolin Hfa) 2 puff Q6H RESP THERAPY PRN INH SHORTNESS OF BREATH; Start 09/03/18 at 09:30 IV Flush (NS 10 ml) 10 ml PRN PRN IV IV PROTOCOL; Start 09/05/18 at 17:00 Bisacodyl (Dulcolax Supp) 10 mg QHS [place] Last administered on 09/16/18 21:34; Admin Dose 10 MG; Start 09/07/18 at 11:30 Acetylcysteine (Mucomyst) 2 ml Q6H RESP THERAPY NEB Last administered on 09/17/18 07:38; Admin Dose 2 ML; Start 09/10/18 at 14:00 Scopolamine (Transderm-Scop) 1 patch Q72H TRANSDERM Last administered on 09/16/18 12:51; Admin Dose 1 PATCH; Start 09/10/18 at 11:00 Prednisone (Prednisone) 20 mg DAILY PO Last administered on 09/17/18 08:38; Admin Dose 20 MG; Start 09/11/18 at 09:00 Apixaban (Eliquis) 2.5 mg BID PO Last administered on 09/17/18 08:19; Admin Dose 2.5 MG; Start 09/11/18 at 12:00 Furosemide (Lasix) 40 mg DAILY IV Last administered on 09/17/18 08:19; Admin Dose 40 MG; Start 09/13/18 at 09:00 Phenylephrine HCl 250 ml @ 75 mls/hr TITRATE IV Last administered on 09/13/18at 22:53; Admin Dose 15 MLS/HR; Start 09/13/18 at 17:00 Propofol 100 ml @ 2.073 mls/ hr Q12H IV Last administered on 09/16/18at 18:34; Admin Dose 6.219 MLS/HR; Start 09/13/18 at 22:30 Assessment/Plan Hospital Course (Demo Recall) IMPRESSION AND PLAN: 1. History of lung cancer and advanced COPD with recurrent hypoxemic respiratory failure 2. Probable aspiration pneumonia. Bilateral infiltrates with left pleural ef fusion. 3. Chronic obstructive pulmonary disease exacerbation. 4. Septic shock and metabolic acidosis secondary to above. 5. Renal insufficiency. PLAN: 1. Continue vasopressors and IV fluids tube feeding as tolerated, 2. Blood cultures. 3. Broad-spectrum antibiotics. 4. DVT and GI prophylaxis. 5. Continue mechanical ventilation failed CPAP trial unlikely to be liberated from mechanical ventilation. 6. Steroids. Admit to [facility]. Critical care time 40 minutes. AISHWARYA PICKARD MD, [facility] Sep 17, 2018 11:01
--- NOTE | 2018-09-17 11:06 | CONS ---
Consult Date/Type/Reason Admit Date/Time Aug 29, 2018 at 18:56 Initial Consult Date Type of Consultation: Pulm/CCM Requesting Provider: KARLEY DEAN MD Date/Time of Note DATE: 09/17/18 TIME: 11:00 Subjective NO acute events - pt stable - in a. fib now - a little tachy - resume dilt now in anticipation of extubation - CXR to follow. ROS: No fever, no chills, no nausea, no vomiting, no diarrhea/constipation No recent weight changes No chest pain, no PND, no orthopnea - chronic SOB No dizziness, blurred vision No thirst, no heat or cold intolerance Objective Vitals Vital Signs Date Temp Pulse Resp B/P (MAP) Pulse Ox O2 O2 Flow FiO2 Time Delivery Rate 09/17/18 145 20 111/72 94 Mechanical 10:30 (85) Ventilator 09/17/18 30 09:59 09/17/18 97.8 08:00 Intake and Output 09/16/18 09/16/18 09/17/18 1515:00 23:00 07:00 IntakeIntake Total 484.752 ml 489.129 ml 474.235 ml OutputOutput Total 565 ml 830 ml 500 ml BalanceBalance -80.248 ml -340.871 ml -25.765 ml Exam General: WN/WD/NAD, AOx 0 HEENT: Unicetric/atraumatic/EOMI (does not follow commands) - intubated NECK: JVD elevated, no thyromegaly Lymph: no lymphadenopathy HEART: irr iregular with no S3, II/ systolic murmur at apex LUNGS: Coarse sounds ABD: soft, NT, ND, +BS : Intact Neuro: non focal SKIN: chronic changes EXT: trace edema Results/Medications Result Diagram: 09/15/1840909/15/18409 Results 24 hrs Laboratory Tests Test 09/16/18 12:48 09/16/18 16:59 09/16/18 21:33 09/17/18 01:11 Bedside Glucose 117 180 160 110 Test 09/17/18 05:03 09/17/18 08:35 Bedside Glucose 110 133 Home Meds Reported Medications Mupirocin Calcium* (Mupirocin*) 2% - 15 Gram Cream..g., 1 APPLIC TOP BID, #1 TUB 08/29/18 Ondansetron Hcl* (Zofran*) 4 Mg Tab, 4 MG PO Q6H PRN for NAUSEA AND OR VOMITING, TAB 08/29/18 Ipratropium-Albuterol (Ipratropium-Albuterol) 0.5-3 Mg/3 Ml Ampul.neb, 3 ML INHALATION Q6 PRN for WHEEZING AND SOB, #30 VIAL 08/29/18 Ferrous Sulfate* (Ferrous Sulfate*) 325 Mg Tabec, 325 MG PO DAILY, TAB 08/29/18 Apixaban* (Eliquis*) 5 Mg Tablet, 5 MG PO BID, TAB 08/29/18 Docusate Sodium* (Colace*) 100 Mg Capsule, 100 MG PO BID, #60 CAP 08/29/18 Bisacodyl* (Bisacodyl*) 5 Mg Tablet.dr, 10 MG PO BID PRN for CONSTIPATION, TAB 08/29/18 Tuberculin,Purif.prot.deriv. (Aplisol) 5 Tub Unit/0.1 Ml Vial, 5 TUB ID ONCE, VIAL START DATE 08/31/18 -- END DATE 09/01/18 08/29/18 Acetaminophen* (Acetaminophen*) 650 Mg Tablet, 650 MG PO Q6H PRN for PAIN LEVEL 1-10/10, #30 TAB AND FEVER>101F 08/29/18 Guaifenesin (Guaifenesin) 100 Mg/5 Ml Liquid, 10 ML PO NEEDED PRN for COUGH, ML 08/13/18 Diltiazem Hcl* (Cardizem*) 30 Mg Tablet, 30 MG PO Q8 for CHF, #90 TAB HOLD IF SBP<110 OR HR<60 08/13/18 Aspirin* (Aspirin* EC) 81 Mg Tablet.dr, 81 MG PO DAILY, TAB 08/13/18 Digoxin* (Digitek*) 125 Mcg Tablet, 0.125 MG PO DAILY, TAB HOLD IF SBP<110 OR HR<60 08/13/18 Atenolol* (Atenolol*) 25 Mg Tablet, 12.5 MG PO BID, #60 TAB HOLD IF SBP<110 OR HR<60 08/13/18 Furosemide* (Furosemide*) 40 Mg Tablet, 40 MG PO DAILY, TAB HOLD IF SBP<110 OR HR<60 08/13/18 Magnesium Hydroxide* (Milk Of Magnesia*) 400 Mg/5 Ml Oral.susp, 30 ML PO DAILY, ML 08/13/18 Potassium Chloride* (Klor-Con*) 20 Meq Tabsr, 20 MEQ PO DAILY, TAB.SA 07/11/18 Pantoprazole* (Pantoprazole*) 40 Mg Tablet.dr, 40 MG PO DAILY, TAB 07/11/18 Medications Current Medications Diltiazem HCl (Cardizem) 30 mg Q8 PO Last administered on 08/29/18at 21:47; Admin Dose 30 MG; Start 08/29/18 at 22:00; Status Hold Fentanyl 100 ml @ 2.5 mls/hr TITRATE IV Last administered on 09/17/18at 03:34; Admin Dose 10 MLS/HR; Start 08/30/18 at 13:30 Atenolol (Tenormin) 12.5 mg BID NGT Last administered on 09/13/18at 08:23; Admin Dose 12.5 MG; Start 08/30/18 at 21:00; Status Hold Digoxin (Digoxin) 0.125 mg DAILY@13 NGT Last administered on 09/03/18at 12:59; Admin Dose 0.125 MG; Start 08/30/18 at 13:00; Status Hold Ferrous Sulfate (Feosol Liquid Cup) 300 mg DAILY NGT Last administered on 09/17/18at 08:19; Admin Dose 300 MG; Start 08/31/18 at 09:00 Lansoprazole (Prevacid) 30 mg DAILY@06 NGT Last administered on 09/17/18at 05:57; Admin Dose 30 MG; Start 08/31/18 at 06:00 Docusate Sodium (Colace Liquid Cup) 100 mg BID PRN NGT CONSTIPATION Last administered on 08/30/18at 23:46; Admin Dose 100 MG; Start 08/30/18 at 13:30 Midazolam HCl 50 ml @ 1 mls/hr TITRATE IV Last administered on 09/17/18at 02:30; Admin Dose 5 MLS/HR; Start 09/01/18 at 11:00 Miscellaneous Information 1 ea NOTE XX ; Start 09/01/18 at 15:00 Glucose (Glutose) 15 gm Q15M PRN PO DECREASED GLUCOSE; Start 09/01/18 at 15:00 Glucose (Glutose) 22.5 gm Q15M PRN PO DECREASED GLUCOSE; Start 09/01/18 at 15:00 Dextrose (D50w Syringe) 25 ml Q15M PRN IV DECREASED GLUCOSE; Start 09/01/18 at 15:00 Dextrose (D50w Syringe) 50 ml Q15M PRN IV DECREASED GLUCOSE; Start 09/01/18 at 15:00 Glucagon (Glucagen) 1 mg Q15M PRN IM DECREASED GLUCOSE; Start 09/01/18 at 15:00 Glucose (Glutose) 15 gm Q15M PRN BUCCAL DECREASED GLUCOSE; Start 09/01/18 at 15:00 Insulin Aspart (Novolog Insulin Pen) NOVOLOG *MILD* ALGORI... Q4 SC Last administered on 09/16/18at 21:37; Admin Dose 1 UNIT; Start 09/02/18 at 01:00 Albuterol (Ventolin Hfa) 2 puff Q6H RESP THERAPY INH Last administered on 09/17/18at 07:36; Admin Dose 2 PUFF; Start 09/03/18 at 14:00 Ipratropium [place] (Atrovent Hfa) 2 puff Q6HWA RESP THERAPY INH Last administered on 09/17/18at 07:36; Admin Dose 2 PUFF; Start 09/03/18 at 14:00 Ipratropium [place] (Atrovent Hfa) 2 puff Q6H RESP THERAPY PRN INH SHORTNESS OF BREATH Last administered on 09/14/18at 01:47; Admin Dose 2 PUFF; Start 09/03/18 at 09:30 Albuterol (Ventolin Hfa) 2 puff Q6H RESP THERAPY PRN INH SHORTNESS OF BREATH; Start 09/03/18 at 09:30 IV Flush (NS 10 ml) 10 ml PRN PRN IV IV PROTOCOL; Start 09/05/18 at 17:00 Bisacodyl (Dulcolax Supp) 10 mg QHS [place] Last administered on 09/16/18at 21:34; Admin Dose 10 MG; Start 09/07/18 at 11:30 Acetylcysteine (Mucomyst) 2 ml Q6H RESP THERAPY NEB Last administered on 09/17/18at 07:38; Admin Dose 2 ML; Start 09/10/18 at 14:00 Scopolamine (Transderm-Scop) 1 patch Q72H TRANSDERM Last administered on 09/16/18 12:51; Admin Dose 1 PATCH; Start 09/10/18 at 11:00 Prednisone (Prednisone) 20 mg DAILY PO Last administered on 09/17/18at 08:38; Admin Dose 20 MG; Start 09/11/18 at 09:00 Apixaban (Eliquis) 2.5 mg BID PO Last administered on 09/17/18at 08:19; Admin Dose 2.5 MG; Start 09/11/18 at 12:00 Furosemide (Lasix) 40 mg DAILY IV Last administered on 09/17/18at 08:19; Admin Dose 40 MG; Start 09/13/18 at 09:00 Phenylephrine HCl 250 ml @ 75 mls/hr TITRATE IV Last administered on 09/13/18 22:53; Admin Dose 15 MLS/HR; Start 09/13/18 at 17:00 Propofol 100 ml @ 2.073 mls/ hr Q12H IV Last administered on 09/16/18 18:34; Admin Dose 6.219 MLS/HR; Start 09/13/18 at 22:30 Assessment/Plan Hospital Course (Demo Recall) 1. Atrial fibrillation with a rapid ventricular response - rate on high side now - will resume dilt gtt. 2. Congestive heart failure exacerbation, diastolic by most recent echo in July 2018 revealing a preserved EF of 65%, acute on chronic by history. Not in CHF by exam. Keep euvolemic. Euvolemic by exam- Cr high, but trending down. Better today. NOt in CHF by exam. 3. Hypertension, mildly elevated - well Rx now. Supportive Rx now. BETTER now. Stable. Pt sedated. Treated. 4. Respiratory distress - transfer to ICU - con't pulm care per pulmonary team. Con't resp Rx. Might need trach vs terminal extubation. 5. Shortness of breath, likely multifactorial secondary to heart failure and chronic obstructive pulmonary disease exacerbation - now intubated, better overall. Pulmonary follows. 6. Probable chronic obstructive pulmonary disease exacerbation - plus anti-Bx for PNA. Treated. 7. Pneumonia, right lower lobe by chest x-ray, new since discharge, question aspiration. Con;t anti-Bx On meds - high secretions. Overall improved. On therapy. 8. Hyponatremia. 9. Severe leukocytosis - better now, on anti-Bx, ID follows. On meds. 10. Anemia, mild - decrease dose Eliquis Cr a little better at 1.96 but H/H down - if con't to go down, will hold anti-coagulation. EMILY SANTAMARIA MD Sep 17, 2018 11:06
--- NOTE | 2018-09-17 11:52 | PN ---
Date/Time of Note Date/Time of Note DATE: 09/17/18 TIME: 11:45 Assessment/Plan VTE Prophylaxis Risk score (from Ns)>0 risk: 17 SCD applied (from Ns): Yes Pharmacological prophylaxis: NA/contraindicated Pharm contraindication: low risk/ambulating Lines/Catheters IV Catheter Type (from Nrsg): PICC Line Central line still needed: Yes Urinary Cath still in place: Yes Reason Cath still needed: urinary retention Assessment/Plan Assessment/Plan assessment/Plan 1 Septic shock likely due to sepsis /pneumonia . Off pressors 2. ALOC, lethargic. Now sedated follows commands off sedation 3. Atrial fibrillation, now flutter, controlled 4. Hypoxic respiratory failure. Respiratory acidosis, resolved. 5. Bilateral pneumonia 6. Congestive heart failure, EF 35 to 40%, 7. Hx of right side lung cancer 8. JAMES on chronic kidney disease, creatinine baseline 1.6. With elevated BUN and creatinine ratio likely ATN secondary to septic shock now Cr downtrending however BUN still high, Good UOP 9. Hx of pleural effusions, right and left and numerous thoracentesis. Now left pleural effusion on chest xray 10. Bilateral pleural effusion 11. Hx of hypertension, now on BP support 12. Hyperlipidemia 13 + bacteremia however new bld cx neg 14 Hypernatremia likely hypovolemic , resolved 15. Anemia Assessment/Plan - Pt was tried oN CPAP BUT FAILED -Not weanable yet per pulmonary, will follow with pulmonary recommendations - sp lasix -skin care -c/w ICU care -off a/b -on pressor -Scopolamine patch for secretions -pulmonary consult dr Guajardo appreciated -orally intubated 30 % -Cardiology consult dr Hall -DVT proph. Eliquiz 5 g GT BID -GI proph. Protonix GT spoke to friend Aaron who wants to wait 1-2 days to prepare for services Result Diagram: [id number]/[id number] Results 24hrs Laboratory Tests Test 09/16/18 12:48 09/16/18 16:59 09/16/18 21:33 09/17/18 01:11 Bedside Glucose 117 180 160 110 Test 09/17/18 05:03 09/17/18 08:35 Bedside Glucose 110 133 Subjective 24 Hr Interval Summary Free Text/Dictation on 30% FIO2 secretions are less CPAP was tried today but pt was tachycardic Exam/Review of Systems Exam Vitals Vital Signs Date Temp Pulse Resp B/P (MAP) Pulse Ox O2 O2 Flow FiO2 Time Delivery Rate 09/17/18 145 20 111/72 94 Mechanical 10:30 (85) Ventilator 09/17/18 30 09:59 09/17/18 97.8 08:00 Intake and Output 09/16/18 09/16/18 09/17/18 1515:00 23:00 07:00 IntakeIntake Total 484.752 ml 489.129 ml 474.235 ml OutputOutput Total 565 ml 830 ml 500 ml BalanceBalance -80.248 ml -340.871 ml -25.765 ml Exam orally intubated Constitutional: non-verbal, agitated Head: normocephalic Neck: supple Respiratory: diminished breath sounds Cardiovascular: regular rate and rhythm Genitourinary - Male: other (yañez) Results Results 24hrs Laboratory Tests Test 09/16/18 12:48 09/16/18 16:59 09/16/18 21:33 09/17/18 01:11 Bedside Glucose 117 180 160 110 Test 09/17/18 05:03 09/17/18 08:35 Bedside Glucose 110 133 Medications Medication Current Medications Diltiazem HCl (Cardizem) 30 mg Q8 PO Last administered on 08/29/18at 21:47; Admin Dose 30 MG; Start 08/29/18 at 22:00; Status Hold Fentanyl 100 ml @ 2.5 mls/hr TITRATE IV Last administered on 09/17/18at 03:34; Admin Dose 10 MLS/HR; Start 08/30/18 at 13:30 Atenolol (Tenormin) 12.5 mg BID NGT Last administered on 09/13/18at 08:23; Admin Dose 12.5 MG; Start 08/30/18 at 21:00; Status Hold Digoxin (Digoxin) 0.125 mg DAILY@13 NGT Last administered on 09/03/18at 12:59; Admin Dose 0.125 MG; Start 08/30/18 at 13:00; Status Hold Ferrous Sulfate (Feosol Liquid Cup) 300 mg DAILY NGT Last administered on at 08:19; Admin Dose 300 MG; Start 08/31/18 at 09:00 Lansoprazole (Prevacid) 30 mg DAILY@06 NGT Last administered on 09/17/18 05:57; Admin Dose 30 MG; Start 08/31/18 at 06:00 Docusate Sodium (Colace Liquid Cup) 100 mg BID PRN NGT CONSTIPATION Last administered on 08/30/18 23:46; Admin Dose 100 MG; Start 08/30/18 at 13:30 Midazolam HCl 50 ml @ 1 mls/hr TITRATE IV Last administered on 09/17/18 02:30; Admin Dose 5 MLS/HR; Start 09/01/18 at 11:00 Miscellaneous Information 1 ea NOTE XX ; Start 09/01/18 at 15:00 Glucose (Glutose) 15 gm Q15M PRN PO DECREASED GLUCOSE; Start 09/01/18 at 15:00 Glucose (Glutose) 22.5 gm Q15M PRN PO DECREASED GLUCOSE; Start 09/01/18 at 15:00 Dextrose (D50w Syringe) 25 ml Q15M PRN IV DECREASED GLUCOSE; Start 09/01/18 at 15:00 Dextrose (D50w Syringe) 50 ml Q15M PRN IV DECREASED GLUCOSE; Start 09/01/18 at 15:00 Glucagon (Glucagen) 1 mg Q15M PRN IM DECREASED GLUCOSE; Start 09/01/18 at 15:00 Glucose (Glutose) 15 gm Q15M PRN BUCCAL DECREASED GLUCOSE; Start 09/01/18 at 15:00 Insulin Aspart (Novolog Insulin Pen) NOVOLOG *MILD* ALGORI... Q4 SC Last adm inistered on 09/16/18 21:37; Admin Dose 1 UNIT; Start 09/02/18 at 01:00 Albuterol (Ventolin Hfa) 2 puff Q6H RESP THERAPY INH Last administered on 09/17/18 07:36; Admin Dose 2 PUFF; Start 09/03/18 at 14:00 Ipratropium [place] (Atrovent Hfa) 2 puff Q6HWA RESP THERAPY INH Last administered on 09/17/18 07:36; Admin Dose 2 PUFF; Start 09/03/18 at 14:00 Ipratropium [place] (Atrovent Hfa) 2 puff Q6H RESP THERAPY PRN INH SHORTNESS OF BREATH Last administered on 7/13/19at 01:47; Admin Dose 2 PUFF; Start 09/03/18 at 09:30 Albuterol (Ventolin Hfa) 2 puff Q6H RESP THERAPY PRN INH SHORTNESS OF BREATH; Start 09/03/18 at 09:30 IV Flush (NS 10 ml) 10 ml PRN PRN IV IV PROTOCOL; Start 09/05/18 at 17:00 Bisacodyl (Dulcolax Supp) 10 mg QHS [place] Last administered on 09/16/18at 21:34; Admin Dose 10 MG; Start 09/07/18 at 11:30 Acetylcysteine (Mucomyst) 2 ml Q6H RESP THERAPY NEB Last administered on 09/17/18at 07:38; Admin Dose 2 ML; Start 09/10/18 at 14:00 Scopolamine (Transderm-Scop) 1 patch Q72H TRANSDERM Last administered on 09/16/18at 12:51; Admin Dose 1 PATCH; Start 09/10/18 at 11:00 Prednisone (Prednisone) 20 mg DAILY PO Last administered on 09/17/18at 08:38; Admin Dose 20 MG; Start 09/11/18 at 09:00 Apixaban (Eliquis) 2.5 mg BID PO Last administered on 09/17/18at 08:19; Admin Dose 2.5 MG; Start 09/11/18 at 12:00 Furosemide (Lasix) 40 mg DAILY IV Last administered on 09/17/18at 08:19; Admin Dose 40 MG; Start 09/13/18 at 09:00 Phenylephrine HCl 250 ml @ 75 mls/hr TITRATE IV Last administered on 09/13/18at 22:53; Admin Dose 15 MLS/HR; Start 09/13/18 at 17:00 Propofol 100 ml @ 2.073 mls/ hr Q12H IV Last administered on 09/16/18at 18:34; Admin Dose 6.219 MLS/HR; Start 09/13/18 at 22:30 Diltiazem HCl (Cardizem) 30 mg Q8 NGT ; Start 09/17/18 at 11:15 FIDEL GAVIN MD Sep 17, 2018 11:52
[2018-09-17] MEDS: DILTIAZEM 30 MG TAB NGT SCH ×2 (11:55→22:31)
--- NOTE | 2018-09-17 13:18 | CONS ---
Assessment/Plan Assessment/Plan Hospital Course (Demo Recall) No events patient remains on vent support sedated, in no distress he is off antibiotics Indwelling: Endotracheal tube NG tube Bar catheter right femoral triple-lumen catheter Physical examination: Chronically ill appearing wasted elderly man who is intubated sedated in no distress. Head atraumatic normocephalic neck is supple chest rise symmetrical breath sounds diminished bases heart S1-S2 abdomen soft bowel sounds hypoactive extremities without cyanosis Assessment: 1. Severe sepsis on admission status post shock 2. Acute hypoxemic respiratory failure possibly aspiration 3. Multilobar pneumonia 4. COPD 5. History of lung cancer status post radiation, details unknown 6. Atrial fibrillation status post RVR 7. Bacteremia, cw contaminant Plan: Remains unchanged, continue vent management per pulmonary, poss terminal extubation Consultation Date/Type/Reason Admit Date/Time Aug 29, 2018 at 18:56 Initial Consult Date Type of Consult id Requesting Provider: KARLEY DEAN MD Date/Time of Note DATE: 09/17/18 TIME: 13:18 Exam/Review of Systems Exam Vitals Vital Signs Date Temp Pulse Resp B/P (MAP) Pulse Ox O2 O2 Flow FiO2 Time Delivery Rate 09/17/18 107 27 102/52 96 Mechanical 12:30 (69) Ventilator 09/17/18 97.9 12:00 09/17/18 30 12:00 Intake and Output 09/16/18 09/16/18 09/17/18 1515:00 23:00 07:00 IntakeIntake Total 484.752 ml 489.129 ml 474.235 ml OutputOutput Total 565 ml 830 ml 500 ml BalanceBalance -80.248 ml -340.871 ml -25.765 ml Results Result Diagram: 09/15/18 0410 09/17/18 1204 Results 24hrs Laboratory Tests Test 09/16/18 16:59 09/16/18 21:33 09/17/18 01:11 09/17/18 05:03 Bedside Glucose 180 160 110 110 Test 09/17/18 08:35 09/17/18 12:04 Bedside Glucose 133 Sodium Level 141 Potassium Level 3.8 Chloride Level 109 Carbon Dioxide Level 24 Anion Gap 8 Blood Urea Nitrogen 87 H Creatinine 1.38 H Est Glomerular Filtrat Rate mL/min Glucose Level 138 Calcium Level 8.4 Medications Medication Current Medications Diltiazem HCl (Cardizem) 30 mg Q8 PO Last administered on 08/29/18at 21:47; Admin Dose 30 MG; Start 08/29/18 at 22:00; Status Hold Fentanyl 100 ml @ 2.5 mls/hr TITRATE IV Last administered on 09/17/18at 03:34; Admin Dose 10 MLS/HR; Start 08/30/18 at 13:30 Atenolol (Tenormin) 12.5 mg BID NGT Last administered on 09/13/18at 08:23; Admin Dose 12.5 MG; Start 08/30/18 at 21:00; Status Hold Digoxin (Digoxin) 0.125 mg DAILY@13 NGT Last administered on 09/03/18at 12:59; Admin Dose 0.125 MG; Start 08/30/18 at 13:00; Status Hold Ferrous Sulfate (Feosol Liquid Cup) 300 mg DAILY NGT Last administered on 09/17/18at 08:19; Admin Dose 300 MG; Start 08/31/18 at 09:00 Lansoprazole (Prevacid) 30 mg DAILY@06 NGT Last administered on 09/17/18at 05:57; Admin Dose 30 MG; Start 08/31/18 at 06:00 Docusate Sodium (Colace Liquid Cup) 100 mg BID PRN NGT CONSTIPATION Last administered on 08/30/18at 23:46; Admin Dose 100 MG; Start 08/30/18 at 13:30 Midazolam HCl 50 ml @ 1 mls/hr TITRATE IV Last administered on 09/17/18at 02:30; Admin Dose 5 MLS/HR; Start 09/01/18 at 11:00 Miscellaneous Information 1 ea NOTE XX ; Start 09/01/18 at 15:00 Glucose (Glutose) 15 gm Q15M PRN PO DECREASED GLUCOSE; Start 09/01/18 at 15:00 Glucose (Glutose) 22.5 gm Q15M PRN PO DECREASED GLUCOSE; Start 09/01/18 at 15:00 Dextrose (D50w Syringe) 25 ml Q15M PRN IV DECREASED GLUCOSE; Start 09/01/18 at 15:00 Dextrose (D50w Syringe) 50 ml Q15M PRN IV DECREASED GLUCOSE; Start 09/01/18 at 15:00 Glucagon (Glucagen) 1 mg Q15M PRN IM DECREASED GLUCOSE; Start 09/01/18 at 15:00 Glucose (Glutose) 15 gm Q15M PRN BUCCAL DECREASED GLUCOSE; Start 09/01/18 at 15:00 Insulin Aspart (Novolog Insulin Pen) NOVOLOG *MILD* ALGORI... Q4 SC Last administered on 09/16/18 21:37; Admin Dose 1 UNIT; Start 09/02/18 at 01:00 Albuterol (Ventolin Hfa) 2 puff Q6H RESP THERAPY INH Last administered on 09/17/18 07:36; Admin Dose 2 PUFF; Start 09/03/18 at 14:00 Ipratropium [place] (Atrovent Hfa) 2 puff Q6HWA RESP THERAPY INH Last administered on 09/17/18 07:36; Admin Dose 2 PUFF; Start 09/03/18 at 14:00 Ipratropium [place] (Atrovent Hfa) 2 puff Q6H RESP THERAPY PRN INH SHORTNESS OF BREATH Last administered on 09/14/18at 01:47; Admin Dose 2 PUFF; Start 09/03/18 at 09:30 Albuterol (Ventolin Hfa) 2 puff Q6H RESP THERAPY PRN INH SHORTNESS OF BREATH; Start 09/03/18 at 09:30 IV Flush (NS 10 ml) 10 ml PRN PRN IV IV PROTOCOL; Start 09/05/18 at 17:00 Bisacodyl (Dulcolax Supp) 10 mg QHS [place] Last administered on 09/16/18 21:34; Admin Dose 10 MG; Start 09/07/18 at 11:30 Acetylcysteine (Mucomyst) 2 ml Q6H RESP THERAPY NEB Last administered on 07:38; Admin Dose 2 ML; Start 09/10/18 at 14:00 Scopolamine (Transderm-Scop) 1 patch Q72H TRANSDERM Last administered on 09/16/18 12:51; Admin Dose 1 PATCH; Start 09/10/18 at 11:00 Prednisone (Prednisone) 20 mg DAILY PO Last administered on 09/17/18 08:38; Admin Dose 20 MG; Start 09/11/18 at 09:00 Apixaban (Eliquis) 2.5 mg BID PO Last administered on 09/17/18 08:19; Admin Dose 2.5 MG; Start 09/11/18 at 12:00 Furosemide (Lasix) 40 mg DAILY IV Last administered on 09/17/18at 08:19; Admin Dose 40 MG; Start 09/13/18 at 09:00 Phenylephrine HCl 250 ml @ 75 mls/hr TITRATE IV Last administered on 09/13/18at 22:53; Admin Dose 15 MLS/HR; Start 09/13/18 at 17:00 Propofol 100 ml @ 2.073 mls/ hr Q12H IV Last administered on 09/16/18at 18:34; Admin Dose 6.219 MLS/HR; Start 09/13/18 at 22:30 Diltiazem HCl (Cardizem) 30 mg Q8 NGT Last administered on 09/17/18at 11:55; Admin Dose 30 MG; Start 09/17/18 at 11:15 SUZANNE DANIELS NP Sep 17, 2018 13:18
[2018-09-17] MEDS ORDERED: ALBUMIN HUMAN 25% 100 ML ONE (18:33)
[2018-09-17] MEDS ORDERED: ALBUMIN HUMAN 25% 100 ML IV ONE (19:00)
[2018-09-17] MEDS ORDERED: SOD CHLORIDE 0.9% 500 ML IV ONE (19:00)
[2018-09-17] MEDS: BISACODYL 10 MG SUPP PR SCH (20:31)
[2018-09-18] VITALS (46 sets, daily range): BP systolic 91–157; BP diastolic 40–77; PULSE 56–142; RESP 18–34
[2018-09-18] MEDS: INSULIN ASPART [NOVOLOG] 3 ML PEN SC SCH ×5 (01:15→18:00)
[2018-09-18] MEDS: ACETYLCYSTEINE 20% 4 ML VIAL NEB SCH ×3 (01:21→14:00)
[2018-09-18] MEDS: ALBUTEROL HFA 8 GM INHALER INH SCH ×3 (01:22→14:00)
[2018-09-18] MEDS: FENTAnyl (DRIP) 1000 mcg/100mL 100 ML IV SCH (02:48)
[2018-09-18] MEDS: LANSOPRAZOLE 30 MG CAP NGT SCH (05:58)
[2018-09-18] MEDS: DILTIAZEM 30 MG TAB NGT SCH ×2 (06:01→14:00)
[2018-09-18] MEDS: IPRATROPIUM (HFA) 12.9 GM INHALER INH SCH ×2 (07:44→14:00)
[2018-09-18] MEDS: APIXABAN 5 MG TABLET PO SCH (08:23)
[2018-09-18] MEDS: FUROSEMIDE 40 MG INJ IV SCH (08:23)
[2018-09-18] MEDS: FERROUS SULFATE 60 MG/ML 5ML CUP NGT SCH (08:23)
[2018-09-18] MEDS: predniSONE 20 MG TAB PO SCH (08:23)
[2018-09-18] MEDS: PROPOFOL 100 ML IV SCH (10:30)
--- NOTE | 2018-09-18 10:46 | PN ---
Date/Time of Note Date/Time of Note DATE: 09/18/18 TIME: 10:42 Assessment/Plan VTE Prophylaxis Risk score (from Ns)>0 risk: 12 SCD applied (from Ns): Yes Pharmacological prophylaxis: NA/contraindicated Pharm contraindication: low risk/ambulating Lines/Catheters IV Catheter Type (from Nrsg): PICC Line Central line still needed: Yes Urinary Cath still in place: Yes Reason Cath still needed: urinary retention Assessment/Plan Assessment/Plan 1 Septic shock likely due to sepsis /pneumonia . Off pressors to off antibiotics 2. ALOC, lethargic. Now sedated follows commands off sedation 3. Atrial fibrillation, now flutter, controlled heart rate was over 150s yesterday's however better today 4. Hypoxic respiratory failure history of right-sided lung cancer and bilateral pleural effusions. Respiratory acidosis, resolved. 5. Bilateral pneumonia 6. Congestive heart failure, EF 35 to 40%, 7. Hx of right side lung cancer 8. JAMES on chronic kidney disease, creatinine baseline 1.6. With elevated BUN and creatinine ratio likely ATN secondary to septic shock now Cr downtrending however BUN still high, Good UOP 9. Hx of pleural effusions, right and left and numerous thoracentesis. Now left pleural effusion on chest xray 10. Bilateral pleural effusion 11. Hx of hypertension, now on BP support 12. Hyperlipidemia 13 + bacteremia however new bld cx neg 14 Hypernatremia likely hypovolemic , resolved 15. Anemia Assessment/Plan -currently on CPAP for 30 minutes, ABG today -Follow with pulmonary recs - sp lasix -skin care -c/w ICU care -off a/b -Scopolamine patch for secretions/Mucomyst/nebs -pulmonary consult dr Guajardo appreciated -orally intubated 30 % -Cardiology consult dr Hall -DVT proph. Eliquiz 5 g GT BID -GI proph. Protonix GT spoke to friend Aaron who wants to wait 1-2 daysto decide about extubation Result Diagram: 09/18/18 1025 09/17/18 1204 Results 24hrs Laboratory Tests Test 09/17/18 12:04 09/17/18 14:13 09/17/18 15:41 09/17/18 18:31 Sodium Level 141 Potassium Level 3.8 Chloride Level 109 Carbon Dioxide 24 Level Anion Gap 8 Blood Urea 87 H Nitrogen Creatinine 1.38 H Est Glomerular Filtrat Rate mL/min Glucose Level 138 Calcium Level 8.4 Bedside Glucose 172 217 Blood Gas Blood arterial Specimen Source Arterial Blood 09/17/2018 4:20: Date Drawn 10 PM Arterial Blood 7.241 *L pH (Temp corrected) Arterial Blood 53.5 H pCO2 (Temp correct) Arterial Blood 53.4 *L pO2 (Temp corrected) Arterial Blood 22.5 HCO3 Arterial Blood -5.1 L Base Excess Arterial Blood 79.0 L Oxygen Saturatio n Harshad Test ACCEPTAB Arterial Blood Left Radial Gas Puncture Site Arterial 0.4 Blood Carboxyhem oglobin Arterial Blood 0.2 Methemoglobin Blood Gas A-a O2 97.6 H Differential Oxyhemoglobin 78.5 L Percent Blood Gas 37.0 Temperature Blood Gas VENT - CPAP Modality FiO2 30.0 Blood Gas High 5.0 PEEP Setting Blood Gas 10 Pressure Support Blood Gas Y JULIA RUSHING Critical Value Read Back Blood Gas Notified Whom Blood Gas 09/17/2018 4:27: Notified Time 46 PM Test 09/17/18 20:40 09/18/18 01:09 09/18/18 05:20 09/18/18 08:09 Bedside Glucose 132 157 147 Blood Gas Blood arterial Specimen Source Arterial Blood 09/18/2018 8:35: Date Drawn 48 AM Arterial Blood 7.457 H pH (Temp corrected) Arterial Blood 30.6 L pCO2 (Temp correct) Arterial Blood 131.8 H pO2 (Temp corrected) Arterial Blood 21.1 L HCO3 Arterial Blood -2.3 Base Excess Arterial Blood 98.3 Oxygen Saturatio n Harshad Test ACCEPTAB Arterial Blood Right Radial Gas Puncture Site Arterial 0 Blood Carboxyhem oglobin Arterial Blood 0.3 Methemoglobin Blood Gas A-a O2 46.1 H Differential Oxyhemoglobin 98.0 Percent Blood Gas 37.0 Temperature Blood Gas 18.0 Respiration Rate Blood Gas Actual 19 Respiration Rate Blood Gas VENT - AC Modality FiO2 30.0 Blood Gas Tidal 550.0 Volume Blood Gas Low 5.0 PEEP Setting Blood Gas Notified Whom Blood Gas 09/18/2018 8:46: Notified Time 26 AM Test 09/18/18 09:11 09/18/18 10:25 Bedside Glucose 156 White Blood 12.2 H Count Red Blood Count 2.70 L Hemoglobin 7.6 L Hematocrit 23.9 L Mean Corpuscular 88.5 Volume Mean Corpuscular 28.1 L Hemoglobin Mean Corpuscular 31.8 L Hemoglobin Naz nt Red Cell 18.6 H Distribution Width Platelet Count 279 Mean Platelet 10.5 H Volume Immature 0.300 Granulocytes % Neutrophils % 78.4 H Lymphocytes % 13.0 L Monocytes % 7.8 Eosinophils % 0.4 Basophils % 0.1 Nucleated Red 0.0 Blood Cells % Immature 0.040 H Granulocytes # Neutrophils # 9.6 H Lymphocytes # 1.6 Monocytes # 1.0 H Eosinophils # 0.1 Basophils # 0.0 Nucleated Red 0.0 Blood Cells # Subjective 24 Hr Interval Summary Free Text/Dictation episode of hypotension last night. Status post albumin and some IV fluids Patient was started on diltiazem yesterday Exam/Review of Systems Exam Vitals Vital Signs Date Temp Pulse Resp B/P (MAP) Pulse Ox O2 O2 Flow FiO2 Time Delivery Rate 09/18/18 63 08:00 09/18/18 19 112/40 100 Mechanical 07:00 (64) Ventilator 09/18/18 30 05:30 09/18/18 98.0 04:00 Intake and Output 09/17/18 09/17/18 09/18/18 1515:00 23:00 07:00 IntakeIntake Total 465 ml 371.657 ml 418.584 ml OutputOutput Total 510 ml 445 ml 490 ml BalanceBalance -45 ml -73.343 ml -71.416 ml Exam orally intubated Constitutional: non-verbal, agitated Head: normocephalic Neck: supple Respiratory: diminished breath sounds Cardiovascular: regular rate and rhythm Genitourinary - Male: other (yañez) Results Results 24hrs Laboratory Tests Test 09/17/18 12:04 09/17/18 14:13 09/17/18 15:41 09/17/18 18:31 Sodium Level 141 Potassium Level 3.8 Chloride Level 109 Carbon Dioxide 24 Level Anion Gap 8 Blood Urea 87 H Nitrogen Creatinine 1.38 H Est Glomerular Filtrat Rate mL/min Glucose Level 138 Calcium Level 8.4 Bedside Glucose 172 217 Blood Gas Blood arterial Specimen Source Arterial Blood 09/17/2018 4:20: Date Drawn 10 PM Arterial Blood 7.241 *L pH (Temp corrected) Arterial Blood 53.5 H pCO2 (Temp correct) Arterial Blood 53.4 *L pO2 (Temp corrected) Arterial Blood 22.5 HCO3 Arterial Blood -5.1 L Base Excess Arterial Blood 79.0 L Oxygen Saturatio n Harshad Test ACCEPTAB Arterial Blood Left Radial Gas Puncture Site Arterial 0.4 Blood Carboxyhem oglobin Arterial Blood 0.2 Methemoglobin Blood Gas A-a O2 97.6 H Differential Oxyhemoglobin 78.5 L Percent Blood Gas 37.0 Temperature Blood Gas VENT - CPAP Modality FiO2 30.0 Blood Gas High 5.0 PEEP Setting Blood Gas 10 Pressure Support Blood Gas Y JULIA RUSHING Critical Value Read Back Blood Gas Notified Whom Blood Gas 09/17/2018 4:27: Notified Time 46 PM Test 09/17/18 20:40 09/18/18 01:09 09/18/18 05:20 09/18/18 08:09 Bedside Glucose 132 157 147 Blood Gas Blood arterial Specimen Source Arterial Blood 09/18/2018 8:35: Date Drawn 48 AM Arterial Blood 7.457 H pH (Temp corrected) Arterial Blood 30.6 L pCO2 (Temp correct) Arterial Blood 131.8 H pO2 (Temp corrected) Arterial Blood 21.1 L HCO3 Arterial Blood -2.3 Base Excess Arterial Blood 98.3 Oxygen Saturatio n Harshad Test ACCEPTAB Arterial Blood Right Radial Gas Puncture Site Arterial 0 Blood Carboxyhem oglobin Arterial Blood 0.3 Methemoglobin Blood Gas A-a O2 46.1 H Differential Oxyhemoglobin 98.0 Percent Blood Gas 37.0 Temperature Blood Gas 18.0 Respiration Rate Blood Gas Actual 19 Respiration Rate Blood Gas VENT - AC Modality FiO2 30.0 Blood Gas Tidal 550.0 Volume Blood Gas Low 5.0 PEEP Setting Blood Gas Notified Whom Blood Gas 09/18/2018 8:46: Notified Time 26 AM Test 09/18/18 09:11 09/18/18 10:25 Bedside Glucose 156 White Blood 12.2 H Count Red Blood Count 2.70 L Hemoglobin 7.6 L Hematocrit 23.9 L Mean Corpuscular 88.5 Volume Mean Corpuscular 28.1 L Hemoglobin Mean Corpuscular 31.8 L Hemoglobin Naz nt Red Cell 18.6 H Distribution Width Platelet Count 279 Mean Platelet 10.5 H Volume Immature 0.300 Granulocytes % Neutrophils % 78.4 H Lymphocytes % 13.0 L Monocytes % 7.8 Eosinophils % 0.4 Basophils % 0.1 Nucleated Red 0.0 Blood Cells % Immature 0.040 H Granulocytes # Neutrophils # 9.6 H Lymphocytes # 1.6 Monocytes # 1.0 H Eosinophils # 0.1 Basophils # 0.0 Nucleated Red 0.0 Blood Cells # Medications Medication Current Medications Diltiazem HCl (Cardizem) 30 mg Q8 PO Last administered on 08/29/18 21:47; Admin Dose 30 MG; Start 08/29/18 at 22:00; Status Hold Fentanyl 100 ml @ 2.5 mls/hr TITRATE IV Last administered on 09/18/18 02:48; Admin Dose 10 MLS/HR; Start 08/30/18 at 13:30 Atenolol (Tenormin) 12.5 mg BID NGT Last administered on 09/13/18 08:23; Admin Dose 12.5 MG; Start 08/30/18 at 21:00; Status Hold Digoxin (Digoxin) 0.125 mg DAILY@13 NGT Last administered on 09/03/18 12:59; Admin Dose 0.125 MG; Start 08/30/18 at 13:00; Status Hold Ferrous Sulfate (Feosol Liquid Cup) 300 mg DAILY NGT Last administered on 09/18/18 08:23; Admin Dose 300 MG; Start 08/31/18 at 09:00 Lansoprazole (Prevacid) 30 mg DAILY@06 NGT Last administered on 09/18/18 05:58; Admin Dose 30 MG; Start 08/31/18 at 06:00 Docusate Sodium (Colace Liquid Cup) 100 mg BID PRN NGT CONSTIPATION Last administered on 08/30/18at 23:46; Admin Dose 100 MG; Start 08/30/18 at 13:30 Midazolam HCl 50 ml @ 1 mls/hr TITRATE IV Last administered on 09/17/18 16:54; Admin Dose 5 MLS/HR; Start 09/01/18 at 11:00 Miscellaneous Information 1 ea NOTE XX ; Start 09/01/18 at 15:00 Glucose (Glutose) 15 gm Q15M PRN PO DECREASED GLUCOSE; Start 09/01/18 at 15:00 Glucose (Glutose) 22.5 gm Q15M PRN PO DECREASED GLUCOSE; Start 09/01/18 at 15:00 Dextrose (D50w Syringe) 25 ml Q15M PRN IV DECREASED GLUCOSE; Start 09/01/18 at 15:00 Dextrose (D50w Syringe) 50 ml Q15M PRN IV DECREASED GLUCOSE; Start 09/01/18 at 15:00 Glucagon (Glucagen) 1 mg Q15M PRN IM DECREASED GLUCOSE; Start 09/01/18 at 15:00 Glucose (Glutose) 15 gm Q15M PRN BUCCAL DECREASED GLUCOSE; Start 09/01/18 at 15:00 Insulin Aspart (Novolog Insulin Pen) NOVOLOG *MILD* ALGORI... Q4 SC Last administered on 09/18/18at 09:43; Admin Dose 1 UNIT; Start 09/02/18 at 01:00 Albuterol (Ventolin Hfa) 2 puff Q6H RESP THERAPY INH Last administered on 09/18/18 07:44; Admin Dose 2 PUFF; Start 09/03/18 at 14:00 Ipratropium [place] (Atrovent Hfa) 2 puff Q6HWA RESP THERAPY INH Last administered on 09/18/18 07:44; Admin Dose 2 PUFF; Start 09/03/18 at 14:00 Ipratropium [place] (Atrovent Hfa) 2 puff Q6H RESP THERAPY PRN INH SHORTNESS OF BREATH Last administered on 09/14/18at 01:47; Admin Dose 2 PUFF; Start 09/03/18 at 09:30 Albuterol (Ventolin Hfa) 2 puff Q6H RESP THERAPY PRN INH SHORTNESS OF BREATH; Start 09/03/18 at 09:30 IV Flush (NS 10 ml) 10 ml PRN PRN IV IV PROTOCOL; Start 09/05/18 at 17:00 Bisacodyl (Dulcolax Supp) 10 mg QHS [place] Last administered on 09/16/18at 21:34; Admin Dose 10 MG; Start 09/07/18 at 11:30 Acetylcysteine (Mucomyst) 2 ml Q6H RESP THERAPY NEB Last administered on 09/18/18at 07:44; Admin Dose 2 ML; Start 09/10/18 at 14:00 Scopolamine (Transderm-Scop) 1 patch Q72H TRANSDERM Last administered on 09/16/18at 12:51; Admin Dose 1 PATCH; Start 09/10/18 at 11:00 Prednisone (Prednisone) 20 mg DAILY PO Last administered on 09/18/18 08:23; Admin Dose 20 MG; Start 09/11/18 at 09:00 Apixaban (Eliquis) 2.5 mg BID PO Last administered on 09/18/18 08:23; Admin Dose 2.5 MG; Start 09/11/18 at 12:00 Furosemide (Lasix) 40 mg DAILY IV Last administered on 09/18/18 08:23; Admin Dose 40 MG; Start 09/13/18 at 09:00 Phenylephrine HCl 250 ml @ 75 mls/hr TITRATE IV Last administered on 09/13/18 22:53; Admin Dose 15 MLS/HR; Start 09/13/18 at 17:00 Propofol 100 ml @ 2.073 mls/ hr Q12H IV Last administered on 09/17/18 18:00; Admin Dose 2.073 MLS/HR; Start 09/13/18 at 22:30 Diltiazem HCl (Cardizem) 30 mg Q8 NGT Last administered on 09/18/18 06:01; Admin Dose 30 MG; Start 09/17/18 at 11:15 FIDEL GAVIN MD Sep 18, 2018 10:46
[2018-09-18] MEDS ORDERED: CEFEPIME 1GM/50 ML (PMX) 50 ML IVPB SCH (11:00)
--- NOTE | 2018-09-18 12:01 | CONS ---
Assessment/Plan Assessment/Plan Hospital Course (Demo Recall) IMPRESSION: 1. Atrial fibrillation-now with some SVR to mid 30's, pause 2 seconds-now improved s/p d/c atenolol and now back on diltiazem monotherapy given tachycardia with vent weaning and is tolerating 2. Congestive heart failure exacerbation, diastolic by most recent echo in July 2018 revealing a preserved EF of 65%, acute on chronic by history. 3. Hypotension-borderline now off pressors 4. Respiratory distress. 5. Shortness of breath, likely multifactorial secondary to heart failure and chronic obstructive pulmonary disease exacerbation. 6. Probable chronic obstructive pulmonary disease exacerbation. 7. Pneumonia, right lower lobe by chest x-ray, new since discharge, question aspiration. 8. Hypernatremia. 9. Leukocytosis-persistent but decreasing 10. Anemia, mild. 11. Coagulopathy, likely secondary to baseline Eliquis. 12. ARF-ongoing 14. WCT-likley c/w PAFL with abberancy given NL EF and patient already in AF with neg trop's. Less likley NSVT. No recurrence REcc: -ICU -holding digoxin and atenolol still but following HR closely back on diltiazem only to improve HR control during vent weaning -Continue eliquis -s/p course of abx, f/u cx data -Continue steroids/bronchodilators -Follow volume status closely and would continue gentle lasix diuresis daily for now -wean vent as tolerated with possible extubation today Consultation Date/Type/Reason Admit Date/Time Aug 29, 2018 at 18:56 Initial Consult Date 08/29/18 Type of Consult Cardiology Reason for Consultation AF Requesting Provider: KARLEY DEAN MD Date/Time of Note DATE: 09/18/18 TIME: 11:57 Exam/Review of Systems Vital Signs Vitals Vital Signs Date Temp Pulse Resp B/P (MAP) Pulse Ox O2 O2 Flow FiO2 Time Delivery Rate 09/18/18 63 08:00 09/18/18 19 112/40 100 Mechanical 07:00 (64) Ventilator 09/18/18 30 05:30 09/18/18 98.0 04:00 Intake and Output 09/17/18 09/17/18 09/18/18 1515:00 23:00 07:00 IntakeIntake Total 465 ml 371.657 ml 418.584 ml OutputOutput Total 510 ml 445 ml 490 ml BalanceBalance -45 ml -73.343 ml -71.416 ml Exam Exam Review of Systems: CONSTITUTIONAL: No fevers, chills. PULMONARY: intubated CARDIOVASCULAR: No chest pain/palpitations GASTROINTESTINAL: No nausea/vomiting. GENITOURINARY: No hematuria/dysuria. MUSCULOSKELETAL: No myagias/arthalgias. PSYCHIATRIC: The patient denies depression. NEUROLOGIC: No weakness Constitutional: other (sedated) Head: normocephalic ENMT: mucosa pink and moist, intubated Neck: supple, jvd (9 cm water) Respiratory: diminished breath sounds (at bases/B) Cardiovascular: irregular rhythm Gastrointestinal: soft, non-tender Musculoskeletal: muscle weakness (generalized mild) Extremities: other (None) 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: other (sedated) Labs Result Diagram: 09/18/18 1025 09/18/18 1025 Results 24hrs Laboratory Tests Test 09/17/18 12:04 09/17/18 14:13 09/17/18 15:41 09/17/18 18:31 Sodium Level 141 Potassium Level 3.8 Chloride Level 109 Carbon Dioxide 24 Level Anion Gap 8 Blood Urea 87 H Nitrogen Creatinine 1.38 H Est Glomerular Filtrat Rate mL/min Glucose Level 138 Calcium Level 8.4 Bedside Glucose 172 217 Blood Gas Blood arterial Specimen Source Arterial Blood 09/17/2018 4:20: Date Drawn 10 PM Arterial Blood 7.241 *L pH (Temp corrected) Arterial Blood 53.5 H pCO2 (Temp correct) Arterial Blood 53.4 *L pO2 (Temp corrected) Arterial Blood 22.5 HCO3 Arterial Blood -5.1 L Base Excess Arterial Blood 79.0 L Oxygen Saturatio n Harshad Test ACCEPTAB Arterial Blood Left Radial Gas Puncture Site Arterial 0.4 Blood Carboxyhem oglobin Arterial Blood 0.2 Methemoglobin Blood Gas A-a O2 97.6 H Differential Oxyhemoglobin 78.5 L Percent Blood Gas 37.0 Temperature Blood Gas VENT - CPAP Modality FiO2 30.0 Blood Gas High 5.0 PEEP Setting Blood Gas 10 Pressure Support Blood Gas Y JULIA RUSHING Critical Value Read Back Blood Gas Notified Whom Blood Gas 09/17/2018 4:27: Notified Time 46 PM Test 09/17/18 20:40 09/18/18 01:09 09/18/18 05:20 09/18/18 08:09 Bedside Glucose 132 157 147 Blood Gas Blood arterial Specimen Source Arterial Blood 09/18/2018 8:35: Date Drawn 48 AM Arterial Blood 7.457 H pH (Temp corrected) Arterial Blood 30.6 L pCO2 (Temp correct) Arterial Blood 131.8 H pO2 (Temp corrected) Arterial Blood 21.1 L HCO3 Arterial Blood -2.3 Base Excess Arterial Blood 98.3 Oxygen Saturatio n Harshad Test ACCEPTAB Arterial Blood Right Radial Gas Puncture Site Arterial 0 Blood Carboxyhem oglobin Arterial Blood 0.3 Methemoglobin Blood Gas A-a O2 46.1 H Differential Oxyhemoglobin 98.0 Percent Blood Gas 37.0 Temperature Blood Gas 18.0 Respiration Rate Blood Gas Actual 19 Respiration Rate Blood Gas VENT - AC Modality FiO2 30.0 Blood Gas Tidal 550.0 Volume Blood Gas Low 5.0 PEEP Setting Blood Gas TM Notified Whom Blood Gas 09/18/2018 8:46: Notified Time 26 AM Test 09/18/18 09:11 09/18/18 10:25 09/18/18 11:10 Bedside Glucose 156 White Blood 12.2 H Count Red Blood Count 2.70 L Hemoglobin 7.6 L Hematocrit 23.9 L Mean Corpuscular 88.5 Volume Mean Corpuscular 28.1 L Hemoglobin Mean Corpuscular 31.8 L Hemoglobin Naz nt Red Cell 18.6 H Distribution Width Platelet Count 279 Mean Platelet 10.5 H Volume Immature 0.300 Granulocytes % Neutrophils % 78.4 H Lymphocytes % 13.0 L Monocytes % 7.8 Eosinophils % 0.4 Basophils % 0.1 Nucleated Red 0.0 Blood Cells % Immature 0.040 H Granulocytes # Neutrophils # 9.6 H Lymphocytes # 1.6 Monocytes # 1.0 H Eosinophils # 0.1 Basophils # 0.0 Nucleated Red 0.0 Blood Cells # Sodium Level 142 Potassium Level 3.4 L Chloride Level 110 Carbon Dioxide 24 Level Anion Gap 8 Blood Urea 92 H Nitrogen Creatinine 1.45 H Est Glomerular Filtrat Rate mL/min Glucose Level 131 Calcium Level 8.5 Blood Gas Blood arterial Specimen Source Arterial Blood 09/18/2018 11:29 Date Drawn :23 AM Arterial Blood 7.342 L pH (Temp corrected) Arterial Blood 42.4 pCO2 (Temp correct) Arterial Blood 75.3 L pO2 (Temp corrected) Arterial Blood 22.5 HCO3 Arterial Blood -3.1 L Base Excess Arterial Blood 92.9 L Oxygen Saturatio n Harshad Test ACCEPTAB Arterial Blood Right Radial Gas Puncture Site Arterial 0.3 Blood Carboxyhem oglobin Arterial Blood 0.3 Methemoglobin Blood Gas A-a O2 88.8 H Differential Oxyhemoglobin 92.3 L Percent Blood Gas 37.0 Temperature Blood Gas Actual 31 Respiration Rate Blood Gas VENT - CPAP Modality FiO2 30.0 Blood Gas Low 5.0 PEEP Setting Blood Gas 10 Pressure Support Blood Gas TM Notified Whom Blood Gas 09/18/2018 11:39 Notified Time :26 AM Medications Medications Current Medications Diltiazem HCl (Cardizem) 30 mg Q8 PO Last administered on 08/29/18 21:47; Admin Dose 30 MG; Start 08/29/18 at 22:00; Status Hold Fentanyl 100 ml @ 2.5 mls/hr TITRATE IV Last administered on 09/18/18 02:48; Admin Dose 10 MLS/HR; Start 08/30/18 at 13:30 Atenolol (Tenormin) 12.5 mg BID NGT Last administered on 09/13/18 08:23; Admin Dose 12.5 MG; Start 08/30/18 at 21:00; Status Hold Digoxin (Digoxin) 0.125 mg DAILY@13 NGT Last administered on 09/03/18 12:59; Admin Dose 0.125 MG; Start 08/30/18 at 13:00; Status Hold Ferrous Sulfate (Feosol Liquid Cup) 300 mg DAILY NGT Last administered on 09/18/18 08:23; Admin Dose 300 MG; Start 08/31/18 at 09:00 Lansoprazole (Prevacid) 30 mg DAILY@06 NGT Last administered on 09/18/18 05:58; Admin Dose 30 MG; Start 08/31/18 at 06:00 Docusate Sodium (Colace Liquid Cup) 100 mg BID PRN NGT CONSTIPATION Last administered on 08/30/18 23:46; Admin Dose 100 MG; Start 08/30/18 at 13:30 Midazolam HCl 50 ml @ 1 mls/hr TITRATE IV Last administered on 09/17/18 16:54; Admin Dose 5 MLS/HR; Start 09/01/18 at 11:00 Miscellaneous Information 1 ea NOTE XX ; Start 09/01/18 at 15:00 Glucose (Glutose) 15 gm Q15M PRN PO DECREASED GLUCOSE; Start 09/01/18 at 15:00 Glucose (Glutose) 22.5 gm Q15M PRN PO DECREASED GLUCOSE; Start 09/01/18 at 15:00 Dextrose (D50w Syringe) 25 ml Q15M PRN IV DECREASED GLUCOSE; Start 09/01/18 at 15:00 Dextrose (D50w Syringe) 50 ml Q15M PRN IV DECREASED GLUCOSE; Start 09/01/18 at 15:00 Glucagon (Glucagen) 1 mg Q15M PRN IM DECREASED GLUCOSE; Start 09/01/18 at 15:00 Glucose (Glutose) 15 gm Q15M PRN BUCCAL DECREASED GLUCOSE; Start 09/01/18 at 15:00 Insulin Aspart (Novolog Insulin Pen) NOVOLOG *MILD* ALGORI... Q4 SC Last administered on 09/18/18at 09:43; Admin Dose 1 UNIT; Start 09/02/18 at 01:00 Albuterol (Ventolin Hfa) 2 puff Q6H RESP THERAPY INH Last administered on 09/18/18at 07:44; Admin Dose 2 PUFF; Start 09/03/18 at 14:00 Ipratropium [place] (Atrovent Hfa) 2 puff Q6HWA RESP THERAPY INH Last administered on 09/18/18at 07:44; Admin Dose 2 PUFF; Start 09/03/18 at 14:00 Ipratropium [place] (Atrovent Hfa) 2 puff Q6H RESP THERAPY PRN INH SHORTNESS OF BREATH Last administered on 09/14/18at 01:47; Admin Dose 2 PUFF; Start 09/03/18 at 09:30 Albuterol (Ventolin Hfa) 2 puff Q6H RESP THERAPY PRN INH SHORTNESS OF BREATH; Start 09/03/18 at 09:30 IV Flush (NS 10 ml) 10 ml PRN PRN IV IV PROTOCOL; Start 09/05/18 at 17:00 Bisacodyl (Dulcolax Supp) 10 mg QHS [place] Last administered on 09/16/18at 21:34; Admin Dose 10 MG; Start 09/07/18 at 11:30 Acetylcysteine (Mucomyst) 2 ml Q6H RESP THERAPY NEB Last administered on 09/18/18at 07:44; Admin Dose 2 ML; Start 09/10/18 at 14:00 Scopolamine (Transderm-Scop) 1 patch Q72H TRANSDERM Last administered on 09/16/18 12:51; Admin Dose 1 PATCH; Start 09/10/18 at 11:00 Prednisone (Prednisone) 20 mg DAILY PO Last administered on 09/18/18 08:23; Admin Dose 20 MG; Start 09/11/18 at 09:00 Apixaban (Eliquis) 2.5 mg BID PO Last administered on 09/18/18 08:23; Admin Dose 2.5 MG; Start 09/11/18 at 12:00 Furosemide (Lasix) 40 mg DAILY IV Last administered on 09/18/18 08:23; Admin Dose 40 MG; Start 09/13/18 at 09:00 Phenylephrine HCl 250 ml @ 75 mls/hr TITRATE IV Last administered on 09/13/18 22:53; Admin Dose 15 MLS/HR; Start 09/13/18 at 17:00 Propofol 100 ml @ 2.073 mls/ hr Q12H IV Last administered on 09/17/18 18:00; Admin Dose 2.073 MLS/HR; Start 09/13/18 at 22:30 Diltiazem HCl (Cardizem) 30 mg Q8 NGT Last administered on 09/18/18 06:01; Admin Dose 30 MG; Start 09/17/18 at 11:15 Cefepime HCl 50 ml @ 100 mls/hr Q12 IVPB Last administered on 09/18/18 11:54; Admin Dose 100 MLS/HR; Start 09/18/18 at 11:00 CECE LOPEZ Sep 18, 2018 12:01
--- NOTE | 2018-09-18 12:13 | CONS ---
Consult Date/Type/Reason Admit Date/Time Aug 29, 2018 at 18:56 Initial Consult Date Type of Consult Pulmonary Requesting Provider: KARLEY DEAN MD Date/Time of Note DATE: 09/18/18 TIME: 12:12 Subjective Patient placed on CPAP trial this morning tolerating CPAP however not fully alert. Objective Vital Signs Date Temp Pulse Resp B/P (MAP) Pulse Ox O2 O2 Flow FiO2 Time Delivery Rate 09/18/18 89 34 99 30 11:39 09/18/18 112/40 Mechanical 07:00 (64) Ventilator 09/18/18 98.0 04:00 Intake and Output 09/17/18 09/17/18 09/18/18 1515:00 23:00 07:00 IntakeIntake Total 465 ml 371.657 ml 418.584 ml OutputOutput Total 510 ml 445 ml 490 ml BalanceBalance -45 ml -73.343 ml -71.416 ml Exam GENERAL: Elderly gentleman orally intubated on mechanical ventilation VITAL SIGNS: per chart NECK: Supple. No JVD or lymphadenopathy. CARDIAC EXAM: S1, S2. No added sounds or murmurs. CHEST: Diminished air entry bilaterally ABDOMEN: Soft, nontender. No guarding or rebound. EXTREMITIES: No cyanosis, clubbing or edema. NEUROLOGIC: Generalized weakness. No focal deficits. Vent Setting Ventilator Support Mode: CPAP, PS Fraction of Inspired Oxygen pe: 30 Positive End Expiratory Pressu: 5.0 Results/Medications Result Diagram: 09/18/18 1025 09/18/18 1025 Results 24 hrs Laboratory Tests Test 09/17/18 14:13 09/17/18 15:41 09/17/18 18:31 09/17/18 20:40 Bedside Glucose 172 217 132 Blood Gas Blood arterial Specimen Source Arterial Blood 09/17/2018 4:20: Date Drawn 10 PM Arterial Blood 7.241 *L pH (Temp corrected) Arterial Blood 53.5 H pCO2 (Temp correct) Arterial Blood 53.4 *L pO2 (Temp corrected) Arterial Blood 22.5 HCO3 Arterial Blood -5.1 L Base Excess Arterial Blood 79.0 L Oxygen Saturatio n Harshad Test ACCEPTAB Arterial Blood Left Radial Gas Puncture Site Arterial 0.4 Blood Carboxyhem oglobin Arterial Blood 0.2 Methemoglobin Blood Gas A-a O2 97.6 H Differential Oxyhemoglobin 78.5 L Percent Blood Gas 37.0 Temperature Blood Gas VENT - CPAP Modality FiO2 30.0 Blood Gas High 5.0 PEEP Setting Blood Gas 10 Pressure Support Blood Gas Y JULIA RUSHING Critical Value Read Back Blood Gas AH Notified Whom Blood Gas 09/17/2018 4:27: Notified Time 46 PM Test 09/18/18 01:09 09/18/18 05:20 09/18/18 08:09 09/18/18 09:11 Bedside Glucose 157 147 156 Blood Gas Blood arterial Specimen Source Arterial Blood 09/18/2018 8:35: Date Drawn 48 AM Arterial Blood 7.457 H pH (Temp corrected) Arterial Blood 30.6 L pCO2 (Temp correct) Arterial Blood 131.8 H pO2 (Temp corrected) Arterial Blood 21.1 L HCO3 Arterial Blood -2.3 Base Excess Arterial Blood 98.3 Oxygen Saturatio n Harshad Test ACCEPTAB Arterial Blood Right Radial Gas Puncture Site Arterial 0 Blood Carboxyhem oglobin Arterial Blood 0.3 Methemoglobin Blood Gas A-a O2 46.1 H Differential Oxyhemoglobin 98.0 Percent Blood Gas 37.0 Temperature Blood Gas 18.0 Respiration Rate Blood Gas Actual 19 Respiration Rate Blood Gas VENT - AC Modality FiO2 30.0 Blood Gas Tidal 550.0 Volume Blood Gas Low 5.0 PEEP Setting Blood Gas TM Notified Whom Blood Gas 09/18/2018 8:46: Notified Time 26 AM Test 09/18/18 10:25 09/18/18 11:10 White Blood 12.2 H Count Red Blood Count 2.70 L Hemoglobin 7.6 L Hematocrit 23.9 L Mean Corpuscular 88.5 Volume Mean Corpuscular 28.1 L Hemoglobin Mean Corpuscular 31.8 L Hemoglobin Naz nt Red Cell 18.6 H Distribution Width Platelet Count 279 Mean Platelet 10.5 H Volume Immature 0.300 Granulocytes % Neutrophils % 78.4 H Lymphocytes % 13.0 L Monocytes % 7.8 Eosinophils % 0.4 Basophils % 0.1 Nucleated Red 0.0 Blood Cells % Immature 0.040 H Granulocytes # Neutrophils # 9.6 H Lymphocytes # 1.6 Monocytes # 1.0 H Eosinophils # 0.1 Basophils # 0.0 Nucleated Red 0.0 Blood Cells # Sodium Level 142 Potassium Level 3.4 L Chloride Level 110 Carbon Dioxide 24 Level Anion Gap 8 Blood Urea 92 H Nitrogen Creatinine 1.45 H Est Glomerular Filtrat Rate mL/min Glucose Level 131 Calcium Level 8.5 Blood Gas Blood arterial Specimen Source Arterial Blood 09/18/2018 11:29 Date Drawn :23 AM Arterial Blood 7.342 L pH (Temp corrected) Arterial Blood 42.4 pCO2 (Temp correct) Arterial Blood 75.3 L pO2 (Temp corrected) Arterial Blood 22.5 HCO3 Arterial Blood -3.1 L Base Excess Arterial Blood 92.9 L Oxygen Saturatio n Harshad Test ACCEPTAB Arterial Blood Right Radial Gas Puncture Site Arterial 0.3 Blood Carboxyhem oglobin Arterial Blood 0.3 Methemoglobin Blood Gas A-a O2 88.8 H Differential Oxyhemoglobin 92.3 L Percent Blood Gas 37.0 Temperature Blood Gas Actual 31 Respiration Rate Blood Gas VENT - CPAP Modality FiO2 30.0 Blood Gas Low 5.0 PEEP Setting Blood Gas 10 Pressure Support Blood Gas TM Notified Whom Blood Gas 09/18/2018 11:39 Notified Time :26 AM Medications Current Medications Diltiazem HCl (Cardizem) 30 mg Q8 PO Last administered on 08/29/18 21:47; Admin Dose 30 MG; Start 08/29/18 at 22:00; Status Hold Fentanyl 100 ml @ 2.5 mls/hr TITRATE IV Last administered on 09/18/18 02:48; Admin Dose 10 MLS/HR; Start 08/30/18 at 13:30 Atenolol (Tenormin) 12.5 mg BID NGT Last administered on 09/13/18 08:23; Admin Dose 12.5 MG; Start 08/30/18 at 21:00; Status Hold Digoxin (Digoxin) 0.125 mg DAILY@13 NGT Last administered on 09/03/18 12:59; Admin Dose 0.125 MG; Start 08/30/18 at 13:00; Status Hold Ferrous Sulfate (Feosol Liquid Cup) 300 mg DAILY NGT Last administered on 09/18/18 08:23; Admin Dose 300 MG; Start 08/31/18 at 09:00 Lansoprazole (Prevacid) 30 mg DAILY@06 NGT Last administered on 09/18/18 05 :58; Admin Dose 30 MG; Start 08/31/18 at 06:00 Docusate Sodium (Colace Liquid Cup) 100 mg BID PRN NGT CONSTIPATION Last administered on 6/28/19at 23:46; Admin Dose 100 MG; Start 08/30/18 at 13:30 Midazolam HCl 50 ml @ 1 mls/hr TITRATE IV Last administered on 09/17/18at 16:54; Admin Dose 5 MLS/HR; Start 09/01/18 at 11:00 Miscellaneous Information 1 ea NOTE XX ; Start 09/01/18 at 15:00 Glucose (Glutose) 15 gm Q15M PRN PO DECREASED GLUCOSE; Start 09/01/18 at 15:00 Glucose (Glutose) 22.5 gm Q15M PRN PO DECREASED GLUCOSE; Start 09/01/18 at 15:00 Dextrose (D50w Syringe) 25 ml Q15M PRN IV DECREASED GLUCOSE; Start 09/01/18 at 15:00 Dextrose (D50w Syringe) 50 ml Q15M PRN IV DECREASED GLUCOSE; Start 09/01/18 at 15:00 Glucagon (Glucagen) 1 mg Q15M PRN IM DECREASED GLUCOSE; Start 09/01/18 at 15:00 Glucose (Glutose) 15 gm Q15M PRN BUCCAL DECREASED GLUCOSE; Start 09/01/18 at 15:00 Insulin Aspart (Novolog Insulin Pen) NOVOLOG *MILD* ALGORI... Q4 SC Last administered on 09/18/18at 09:43; Admin Dose 1 UNIT; Start 09/02/18 at 01:00 Albuterol (Ventolin Hfa) 2 puff Q6H RESP THERAPY INH Last administered on 09/18/18at 07:44; Admin Dose 2 PUFF; Start 09/03/18 at 14:00 Ipratropium [place] (Atrovent Hfa) 2 puff Q6HWA RESP THERAPY INH Last administered on 09/18/18at 07:44; Admin Dose 2 PUFF; Start 09/03/18 at 14:00 Ipratropium [place] (Atrovent Hfa) 2 puff Q6H RESP THERAPY PRN INH SHORTNESS OF BREATH Last administered on 09/14/18at 01:47; Admin Dose 2 PUFF; Start 09/03/18 at 09:30 Albuterol (Ventolin Hfa) 2 puff Q6H RESP THERAPY PRN INH SHORTNESS OF BREATH; Start 09/03/18 at 09:30 IV Flush (NS 10 ml) 10 ml PRN PRN IV IV PROTOCOL; Start 09/05/18 at 17:00 Bisacodyl (Dulcolax Supp) 10 mg QHS [place] Last administered on 09/16/18 21:34; Admin Dose 10 MG; Start 09/07/18 at 11:30 Acetylcysteine (Mucomyst) 2 ml Q6H RESP THERAPY NEB Last administered on 09/18/18 07:44; Admin Dose 2 ML; Start 09/10/18 at 14:00 Scopolamine (Transderm-Scop) 1 patch Q72H TRANSDERM Last administered on 09/16/18 12:51; Admin Dose 1 PATCH; Start 09/10/18 at 11:00 Prednisone (Prednisone) 20 mg DAILY PO Last administered on 09/18/18 08:23; Admin Dose 20 MG; Start 09/11/18 at 09:00 Apixaban (Eliquis) 2.5 mg BID PO Last administered on 09/18/18 08:23; Admin Dose 2.5 MG; Start 09/11/18 at 12:00 Furosemide (Lasix) 40 mg DAILY IV Last administered on 09/18/18 08:23; Admin Dose 40 MG; Start 09/13/18 at 09:00 Phenylephrine HCl 250 ml @ 75 mls/hr TITRATE IV Last administered on 09/13/18 22:53; Admin Dose 15 MLS/HR; Start 09/13/18 at 17:00 Propofol 100 ml @ 2.073 mls/ hr Q12H IV Last administered on 09/17/18 18:00; Admin Dose 2.073 MLS/HR; Start 09/13/18 at 22:30 Diltiazem HCl (Cardizem) 30 mg Q8 NGT Last administered on 09/18/18 06:01; Admin Dose 30 MG; Start 09/17/18 at 11:15 Cefepime HCl 50 ml @ 100 mls/hr Q12 IVPB Last administered on 09/18/18 11:54; Admin Dose 100 MLS/HR; Start 09/18/18 at 11:00 Potassium Chloride 100 ml @ 50 mls/hr Q2H IVPB ; Start 09/18/18 at 12:00; Stop 09/18/18 at 15:59 Assessment/Plan Hospital Course (Demo Recall) IMPRESSION AND PLAN: 1. History of lung cancer and advanced COPD with recurrent hypoxemic respiratory failure 2. Probable aspiration pneumonia. Bilateral infiltrates with left pleural effusion. 3. Chronic obstructive pulmonary disease exacerbation. 4. Septic shock and metabolic acidosis secondary to above. 5. Renal insufficiency. PLAN: 1. Continue vasopressors and IV fluids tube feeding as tolerated, 2. Blood cultures. 3. Broad-spectrum antibiotics. 4. DVT and GI prophylaxis. 5. Currently tolerating CPAP trial however high risk of reintubation. 6. Steroids. Critical care time 40 minutes. D POA requesting extubation on Sunday. AISHWARYA PICKARD MD, [facility] Sep 18, 2018 12:13
[2018-09-18] MEDS: POTASSIUM CHLORIDE 100 ML IVPB SCH ×2 (12:43→14:23)
[2018-09-18] MEDS ORDERED: METOPROLOL 5 MG INJ IV ONE (14:00)
[2018-09-18] MEDS ORDERED: morphine 2 MG INJ IV STA (14:04)
[2018-09-18] MEDS: morphine 2 MG INJ IV PRN ×2 (14:21→15:07)
[2018-09-18] MEDS ORDERED: DILTIAZEM 25 MG INJ IV ONE ×2 (14:30→14:45)
[2018-09-18] MEDS ORDERED: METOPROLOL 5 MG INJ IV PRN (15:00)
[2018-09-18] MEDS: morphine (DRIP) 100 MG/100 ML 100 ML IV SCH (19:05)
--- NOTE | 2018-09-18 20:48 | PN ---
DATE: 09/18/2018 SUBJECTIVE: The patient was extubated. Currently on face mask, lethargic, tachycardic in no distres s. No fevers overnight. The patient actually was hypothermic. WBC today 12.2 with platelets 279, neutrophils 78.4, BUN 92, creatinine 1.45. INDWELLINGS: The patient has a Bar catheter and PICC line. PHYSICAL EXAMINATION: GENERAL: This is a chronically ill-appearing, elderly man who is lethargic, in no distress. HEENT: Head atraumatic, normocephalic. Sclerae anicteric. Buccal mucosa dry. NECK: Supple, trachea midline. CHEST: Rise symmetrical. Breath sounds with bilateral rhonchi. HEART: S1, S2, tachycardic. ABDOMEN: Soft, bowel tones hypoactive. EXTREMITIES: With trace edema. ASSESSMENT: 1. Acute hypoxemic respiratory failure. The patient is extubated. 2. Status post sepsis with shock. 3. Resolved pneumonia. 4. Chronic obstructive pulmonary disease. 5. History of lung cancer. 6. Atrial fibrillation. PLAN: He was started on cefepime this morning as he was more tachycardic and also was hypothermic fo r concern of recurrent sepsis. We will continue him on current regimen. Await for sputum and urine culture. Continue anti-aspiration precautions. Dictated By: SUZANNE DANIELS CAREER DEVELOPMENT CONSULTANT for JEFFRY CASTILLO MD NI/NTS Conf#: [id number] DID#: [id number] CC: KARLEY DEAN MD;*EndCC*
[2018-09-19 02:24] VITALS: BP 140/63; PULSE 103; RESP 17
[2018-09-19] MEDS: morphine (DRIP) 100 MG/100 ML 100 ML IV SCH ×2 (07:27→21:45)
[2018-09-19] MEDS: SCOPOLAMINE 1.5 MG PATCH TRANSDERM SCH (11:28)
--- NOTE | 2018-09-19 17:41 | PN ---
Date/Time of Note Date/Time of Note DATE: 09/19/18 TIME: 17:38 Assessment/Plan VTE Prophylaxis Risk score (from Ns)>0 risk: 10 SCD applied (from [facility]): No SCD contraindicated: low risk/ambulating Pharmacological prophylaxis: NA/contraindicated Pharm contraindication: low risk/ambulating Lines/Catheters IV C[facility]ter Type (from [facility] PICC Line Central line still needed: Yes Urinary Cath still in place: Yes Reason Cath still needed: urinary retention Assessment/Plan Assessment/Plan Septic shock likely due to sepsis /pneumonia . Off pressors to off antibiotics 2. ALOC, lethargic. Now sedated follows commands off sedation 3. Atrial fibrillation, now flutter, controlled heart rate was over 150s yesterday's however better today 4. Hypoxic respiratory failure history of right-sided lung cancer and bilateral pleural effusions. Respiratory acidosis, resolved. 5. Bilateral pneumonia 6. Congestive heart failure, EF 35 to 40%, 7. Hx of right side lung cancer 8. JAMES on chronic kidney disease, creatinine baseline 1.6. With elevated BUN and creatinine ratio likely ATN secondary to septic shock now Cr downtrending however BUN still high, Good UOP 9. Hx of pleural effusions, right and left and numerous thoracentesis. Now left pleural effusion on chest xray 10. Bilateral pleural effusion 11. Hx of hypertension, now on BP support 12. Hyperlipidemia 13 + bacteremia however new bld cx neg 14 Hypernatremia likely hypovolemic , resolved 15. Anemia Assessment/Plan -Now on comfort care on morphine drip - Wally ill come tomorrow for Vtas -comfort care measures only Result Diagram: 09/18/18 1025 09/18/18 1025 Subjective 24 Hr Interval Summary Free Text/Dictation Is comfort care now on morphine drip Had communicated to Wally yesterday vtas was called , wally will come tmw Exam/Review of Systems Exam Vitals Vital Signs Date Temp Pulse Resp B/P (MAP) Pulse Ox O2 O2 Flow FiO2 Time Delivery Rate 09/19/18 6.0 15:13 09/19/18 98.4 103 17 140/63 98 02:24 (88) 09/18/18 Mask 18:00 09/18/18 30 11:39 Intake and Output 09/18/18 09/18/18 09/19/18 1515:00 23:00 07:00 IntakeIntake Total 231.2 ml 60 ml 47 ml OutputOutput Total 590 ml 690 ml BalanceBalance -358.8 ml -630 ml 47 ml Exam pt is having agonal breathing currently on oxygen decCreased breath sounds bilaterally soft abdomen 1 +edema Medications Medication Current Medications IV Flush (NS 10 ml) 10 ml PRN PRN IV IV PROTOCOL; Start 09/05/18 at 17:00 Scopolamine (Transderm-Scop) 1 patch Q72H TRANSDERM Last administered on 09/19/18at 11:28; Admin Dose 1 PATCH; Start 09/10/18 at 11:00 Morphine Sulfate (morphine) 1 mg Q2H PRN IV SEVERE PAIN LEVEL 7-10 Last administered on 09/18/18at 15:07; Admin Dose 1 MG; Start 09/18/18 at 14:00 Morphine Sulfate/ Sodium Chloride 100 ml @ 1 mls/hr TITRATE IV Last administered on 09/19/18 07:27; Admin Dose 7 MLS/HR; Start 09/18/18 at 18:00 FIDEL GAVIN MD Sep 19, 2018 17:41
[2018-09-19] MEDS ORDERED: ARTIFICIAL TEARS 15 ML OPH BOTH EYES PRN (18:00)
[2018-09-19] MEDS ORDERED: DIMETHICONE STICK TOP PRN (18:00)
[2018-09-19] MEDS ORDERED: ONDANSETRON 4 MG INJ IV PRN (18:00)
--- NOTE | 2018-09-19 18:30 | CONS ---
Assessment/Plan Assessment/Plan Hospital Course (Demo Recall) IMPRESSION: 1. Atrial fibrillation-now with some SVR to mid 30's, pause 2 seconds-now improved s/p d/c atenolol and now back on diltiazem monotherapy given tachycardia with vent weaning and is tolerating 2. Congestive heart failure exacerbation, diastolic by most recent echo in July 2018 revealing a preserved EF of 65%, acute on chronic by history. 3. Hypotension-borderline now off pressors 4. Respiratory distress. 5. Shortness of breath, likely multifactorial secondary to heart failure and chronic obstructive pulmonary disease exacerbation. 6. Probable chronic obstructive pulmonary disease exacerbation. 7. Pneumonia, right lower lobe by chest x-ray, new since discharge, question aspiration. 8. Hypernatremia. 9. Leukocytosis-persistent but decreasing 10. Anemia, mild. 11. Coagulopathy, likely secondary to baseline Eliquis. 12. ARF-ongoing 14. WCT-likley c/w PAFL with abberancy given NL EF and patient already in AF with neg trop's. Less likley NSVT. No recurrence REcc: -Now made COUNTER [employer]ENDANT and started on morphine drip will sign off Consultation Date/Type/Reason Admit Date/Time Aug 29, 2018 at 18:56 Initial Consult Date 08/29/18 Type of Consult Cardiology Reason for Consultation AF/CHF Requesting Provider: KARLEY DEAN MD Date/Time of Note DATE: 09/19/18 TIME: 18:29 Exam/Review of Systems Vital Signs Vitals Vital Signs Date Temp Pulse Resp B/P (MAP) Pulse Ox O2 O2 Flow FiO2 Time Delivery Rate 09/19/18 6.0 15:13 09/19/18 98.4 103 17 140/63 98 02:24 (88) 09/18/18 Mask 18:00 09/18/18 30 11:39 Intake and Output 09/18/18 09/18/18 09/19/18 1515:00 23:00 07:00 IntakeIntake Total 231.2 ml 60 ml 47 ml OutputOutput Total 590 ml 690 ml BalanceBalance -358.8 ml -630 ml 47 ml Exam Exam Review of Systems: CONSTITUTIONAL: No fevers, chills. PULMONARY: No sob CARDIOVASCULAR: No chest pain/palpitations GASTROINTESTINAL: No nausea/vomiting. GENITOURINARY: No hematuria/dysuria. MUSCULOSKELETAL: No myagias/arthalgias. PSYCHIATRIC: The patient denies depression. NEUROLOGIC: encephalopathic Constitutional: other (sleeping) Head: normocephalic ENMT: mucosa pink and moist Neck: supple, jvd (9 cm water) Respiratory: diminished breath sounds (at bases/B) Cardiovascular: irregular rhythm Gastrointestinal: soft, non-tender Extremities: edema (none) Labs Result Diagram: 09/18/18 1025 09/18/18 1025 Medications Medications Current Medications IV Flush (NS 10 ml) 10 ml PRN PRN IV IV PROTOCOL; Start 09/05/18 at 17:00 Scopolamine (Transderm-Scop) 1 patch Q72H TRANSDERM Last administered on 09/19/18at 11:28; Admin Dose 1 PATCH; Start 09/10/18 at 11:00 Morphine Sulfate (morphine) 1 mg Q2H PRN IV SEVERE PAIN LEVEL 7-10 Last admini stered on 09/18/18at 15:07; Admin Dose 1 MG; Start 09/18/18 at 14:00 Morphine Sulfate/ Sodium Chloride 100 ml @ 1 mls/hr TITRATE IV Last administered on 09/19/18at 07:27; Admin Dose 7 MLS/HR; Start 09/18/18 at 18:00 Ondansetron HCl (Zofran Inj) 4 mg Q6H PRN IV NAUSEA AND/OR VOMITING; Start 09/19/18 at 18:00 Eye Lubricant (Artificial Tears Oph) 2 drop EACH SHIFT PRN BOTH EYES DRY EYES; Start 09/19/18 at 18:00 Dimethicone (Blistex Lip [place]) 1 applic EACH SHIFT PRN TOP DRY LIP(S); Start 09/19/18 at 18:00 CECE LOPEZ Sep 19, 2018 18:30
== END 2018-09-20 01:53 | disposition expired | DRG 870 ==
LOC: E/R 15:58 → TEL 18:56 → ICU 08-30 12:37 → 2NE 09-18 22:25
PROVIDERS: ADMIT Internal Medicine Nephrology; ATTEND Internal Medicine Nephrology
PROC: 5A1955Z Respiratory Ventilation, Greater than 96 Consecutive Hours (ICD-10-PCS; 2018-08-30)
PROC: 06HY33Z Insertion of Infusion Device into Lower Vein, Percutaneous Approach (ICD-10-PCS; 2018-08-30)
PROC: 0BH17EZ Insertion of Endotracheal Airway into Trachea, Via Natural or Artificial Opening (ICD-10-PCS; 2018-08-30)
PROC: 02HV33Z Insertion of Infusion Device into Superior Vena Cava, Percutaneous Approach (ICD-10-PCS; principal; 2018-09-05)
DX: A41.9 Sepsis, unspecified organism (principal); R65.21 Severe sepsis with septic shock; J18.1 Lobar pneumonia, unspecified organism; I50.33 Acute on chronic diastolic (congestive) heart failure; J96.01 Acute respiratory failure with hypoxia; J96.02 Acute respiratory failure with hypercapnia; E87.2 Acidosis; I13.0 Hypertensive heart and chronic kidney disease with heart failure and stage 1 through stage 4 chronic kidney disease, or unspecified chronic kidney disease; J44.1 Chronic obstructive pulmonary disease with (acute) exacerbation; N17.9 Acute kidney failure, unspecified; E87.0 Hyperosmolality and hypernatremia; E87.1 Hypo-osmolality and hyponatremia; I48.91 Unspecified atrial fibrillation; D64.9 Anemia, unspecified; E78.5 Hyperlipidemia, unspecified; N18.9 Chronic kidney disease, unspecified; F17.200 Nicotine dependence, unspecified, uncomplicated; Z85.118 Personal history of other malignant neoplasm of bronchus and lung
CPT/HCPCS: 31500; 36415; 36569; 36600; 71045; 71250; 76604; 76937; 80048; 80053; 80162; 80202; 81001; 82550; 82803; 82962; 83605; 83735; 83880; 84100; 84443; 84484; 85025; 85610; 85730; 87070; 87081; 89220; 93005; 94002; 94003; 94640; 94660; 94664; 94668; 94770; 96374; 96375; 96376; C1751; C1769; J0692; J1815; J1940; J2060; J2185; J2250; J2270; J2370; J2543; J2920; J3010; J3370; J3480; J7030; J7040; J7070; J7512; P9047; Q5106